=== PATIENT | male | born 1950 | race Caucasian/White ===

== ENCOUNTER → 2016-07-18 | Day surgery (SDC) | payer BC, OTHER ==
[2016-07-17 08:34] VITALS: Ht 172.7 cm; Wt 112.3 kg
[~2016-07-18] VITALS: Ht 172.7 cm; Wt 112.3 kg
[~2016-07-18] MED LIST: ASPI325T4 PO; ATOR-24 PO; B-COTAB18 PO; CHOL100010 PO; COEN1CAP46 PO; FINA5TAB PO; FISHOIL PO; FLM4 PO; FURO-85 PO; HYDR-5688 PO; LIDOCAINE HCL 2% 2 ML VIAL (20MG/ML) ONE; LOSA50TA6 PO; LVMIPEN SQ; MAGN400T6 PO; METO1TAB69 PO; NVLGI/PEN SC; PROPOFOL IV EMULSION 10 MG/ML 20 ML VIAL IV ONE; SODIUM CHLORIDE 0.9% 500ML 500 ML IV ONE
--- NOTE | 2016-07-18 13:45 | Endo History and Physical ---
History & Physical Date of Service: Jul 18, 2016. Chief Complaint: anemia Referring Physician: Dr. Edd Alvarez History of Present Illness anemia Past Medical History Diabetes, Anxiety, Heart Disease, Hypertension, Implantable Defibrillator, Kidney Disease, Depression Past Surgical History Hx Cardiac Surgery: Yes (HEART CATH, NO STENTS X2, CABG X3 VESSELS) Hx Internal Defibrillator: Yes (2011) Hx Pacemaker: No Hx Abdominal Surgery: No Hx of Implantable Prosthesis: No Hx Post-Op Nausea and Vomiting: No Hx Cancer Surgery: No Hx Thoracic Surgery: No Hx Orthopedic: Yes (NECK SURGERY (FULL ROM), LUMBAR SPINE SURGERY) Hx Urinary Tract Surgery: Yes (TUNA) Family History None Social History Smoking Status: Former Smoker Hx Substance Use: Yes (SEE MED LIST) Hx Alcohol Use: No Allergies Coded Allergies: No Known Allergies (Verified , 07/17/16) Current Medications Reported Home Medications Medications Dose Route/Sig Max Daily Dose Days Date Category Dose Instructions Novolog Flexpen (Insulin Aspart) 100 Units/Ml Inj 50 Units SC TIDM 03/07/16 Reported PER SLIDING SCALE Toprol-Xl (Metoprolol Succinate) 100 Mg Tabcr 100 Mg PO QAM 03/07/16 Reported Vitamin D (Cholecalciferol) 1,000 Inter.unit Tab 4,000 Inter.unit PO QAM 07/04/15 Reported Aspirin 325 Mg Tab 325 Mg PO QAM 11/12/14 Reported Tamsulosin HCl 0.4 Mg Cap 0.4 Mg PO HS 11/12/14 Reported Lasix (Furosemide) 20 Mg Tab 20 Mg PO QAM 11/12/14 Reported Lipitor (Atorvastatin Calcium) 40 Mg Tab 40 Mg PO HS 11/12/14 Reported Proscar (Finasteride) 5 Mg Tab 5 Mg PO QAM 11/12/14 Reported Coq-10 100 mg (Coenzyme Q10 (Ubidecarenone)) 1 Cap Cap 100 Mg PO QAM 11/12/14 Reported Vitamin B Complex (B-Complex Vitamins) 1 Tab Tab 1 Tab PO QAM 12/17/13 Reported Levemir Flexpen (Insulin Detemir) 100 Unit/Ml Inj 40 Units SQ BID 12/10/13 Reported [place] 5MG/325MG (Acetaminophen/Hydrocodone Bitart) Tab 1-2 Tablet PO Q4-6H PRN 12/10/13 Reported PRN PAIN Cozaar (Losartan Potassium) 50 Mg Tab 50 Mg PO QAM 12/17/12 Reported [place]-3 (Fish Oil) Oil 1 Cap PO QAM 05/26/12 Reported Mag-Ox (Magnesium Oxide) 400 Mg Tab 400 Mg PO QAM 11/27/11 Reported Vital Signs Weight (Kilograms): 112.27 Height (Feet): 5 Height (Inches): 8 Date Time Temp Pulse Resp B/P Pulse Ox O2 Delivery O2 Flow Rate FiO2 07/18/16 13:42 36.8 69 20 135/64 96 Room Air Physical Exam General Appearance: no apparent distress Respiratory/Chest: Auscultation: breath sounds normal Cardiovascular: Heart Auscultation: RRR Abdomen: Inspection & Palpation: soft Assessment and Plan Anemia - EGD
--- NOTE | 2016-07-18 14:05 | GI REPORT ---
Procedure Date: 07/18/2016 1:33 PM Procedure: Upper GI endoscopy Indications: Anemia Medicines: See the Anesthesia note for documentation of the administered medications Complications: No immediate complications. Estimated Blood Loss: Estimated blood loss: none. Procedure: Pre-Anesthesia Assessment: - ASA Grade Assessment: IV - A patient with severe systemic disease that is a constant threat to life. After obtaining informed consent, the endoscope was passed under direct vision. Throughout the procedure, the patient's blood pressure, pulse, and oxygen saturations were monitored continuously. The scope was introduced through the mouth, and advanced to the second part of duodenum. The upper GI endoscopy was accomplished without difficulty. The patient tolerated the procedure well. Findings: LA Grade A (one or more mucosal breaks less than 5 mm, not extending between tops of 2 mucosal folds) esophagitis with no bleeding was found. Otherwise normal esophagus. The stomach was normal. Biopsies were taken with a cold forceps for histology. There was a large diverticulum in the second portion of the duodenum. Otherwise, the examined duodenum was normal. Biopsies were taken with a cold forceps for histology. Impression: - LA Grade A reflux esophagitis. - Normal stomach. Biopsied. - Normal examined duodenum. Biopsied. Recommendation: - Discharge patient to home. Harmeet Friedman M.D. Harmeet Friedman MD 07/18/2016 2:05:09 PM This report has been signed electronically. Note Initiated On: 07/18/2016 1:33 PM I attest to the content of the Intraoperative Record and orders documented therein, exceptions below
--- NOTE | 2016-07-18 14:10 | Discharge Instructions ---
Endoscopy Patient Instructions Date / Procedure(s) Performed Jul 18, 2016. EGD Allergy Information Coded Allergies: No Known Allergies (Verified , 07/17/16) Discharge Date / Findings Jul 18, 2016. Mild esophagitis. Medication Instructions Stopped Medication(s): took ASA yesterday Provider Instructions Activity Restrictions - No exercising or heavy lifting for 24 hours. - Do not drink alcohol the day of the procedure. - Do not drive a car or operate machinery until the day after the procedure. - Do not make any important decisions or sign important papers in 24 hours after the procedure. Following Day: - Return to full activity which may include returning to work/school. Diet Start your diet with liquids and light foods (jello, soup, juice, toast). Then eat your usual diet if not nauseated. Treatment For Common After Affects For mild abdominal pain, bloating, or excessive gas: - Rest - Eat lightly - Lie on right side Follow-Up Information Follow-up with Dr. Edd Alvarez as scheduled Anesthesia Information What You Should Know You have had a procedure that required some medicine to reduce anxiety and discomfort. This treatment is called moderate sedation. After receiving the treatment, you may be sleepy, but you will be able to breathe on your own. The effects of the treatment may last for several hours. Follow these instructions along with Activity/Diet recommendations noted above: * Do NOT do anything where dizziness or clumsiness would be dangerous. * Rest quietly at home today, then you can be up and about tomorrow. * Have a responsible person stay with you the rest of today. * You may have had an I.V. today. If so, you may take the dressing off later today. Recommendations Call your doctor if: * Trouble breathing * Continuous vomiting for more than 24 hours * Temperature above 101 degrees * Severe abdominal pain or bloating * Pain not relieved by pain medicine ordered * There is increased drainage or redness from any incision * A large amount of rectal bleeding greater than 2-3 tablespoons. (If you had a polyp/s removed or have hemorrhoids, a small amount of blood - from the rectum is to be expected.) * You have any unanswered questions or concerns. IN THE EVENT OF A SERIOUS EMERGENCY, GO TO THE NEAREST EMERGENCY ROOM Your discharge instructions were prepared by provider Harmeet Johns. Patient Instructions Signature Page Leandro Cooper Patient (or Guardian) Signature/Date: I have read and understand the instructions given to me by my caregivers. Caregiver/RN/Doctor Signature/Date: The above-named patient and/or guardian has received patient instructions on this date. + Original Patient Signature Page (only) stays with chart. Please make copy for patient.
[2016-07-18 14:56] VITALS: BP 159/67; PULSE 67; O2SAT 98
--- NOTE | 2016-07-18 15:27 | Anesthesiology Progress Note ---
Anesthesia Post Op Note Date & Time Jul 18, 2016 at 15:27 Vital Signs Pain Intensity: 0 Vital Signs Past 12 Hours Date Time Temp Pulse Resp B/P Pulse Ox O2 Delivery O2 Flow Rate FiO2 07/18/16 14:56 67 18 159/67 98 Room Air 07/18/16 14:36 62 18 138/63 96 Room Air 07/18/16 14:21 56 18 100/48 96 Room Air 07/18/16 14:06 58 16 106/50 96 Room Air 07/18/16 13:42 36.8 69 20 135/64 96 Room Air Notes Mental Status: alert / awake / arousable, participated in evaluation Pt Amnestic to Procedure: Yes Nausea / Vomiting: adequately controlled Pain: adequately controlled Airway Patency, RR, SpO2: stable & adequate BP & HR: stable & adequate Hydration State: stable & adequate Anesthetic Complications: no major complications apparent
== END | disposition home or self-care (01) ==
LOC: C.GI 12:54
PROVIDERS: ATTEND Internal Medicine Gastroenterology
DX: D64.9 Anemia, unspecified (principal); K29.70 Gastritis, unspecified, without bleeding; B96.81 Helicobacter pylori [H. pylori] as the cause of diseases classified elsewhere; K21.0 Gastro-esophageal reflux disease with esophagitis; K57.10 Diverticulosis of small intestine without perforation or abscess without bleeding; E11.9 Type 2 diabetes mellitus without complications; F41.9 Anxiety disorder, unspecified; I51.9 Heart disease, unspecified; I10 Essential (primary) hypertension; F32.9 Major depressive disorder, single episode, unspecified; Z95.1 Presence of aortocoronary bypass graft; Z98.890 Other specified postprocedural states; Z87.891 Personal history of nicotine dependence; Z79.4 Long term (current) use of insulin

== ENCOUNTER → 2016-07-20 | Outpatient (CLI) | payer BC ==
[~2016-07-20] MED LIST changes: -LIDOCAINE HCL 2% 2 ML VIAL (20MG/ML) ONE; -PROPOFOL IV EMULSION 10 MG/ML 20 ML VIAL IV ONE; -SODIUM CHLORIDE 0.9% 500ML 500 ML IV ONE
== END | disposition home or self-care (01) ==
LOC: C.LABSPEC 15:05
PROVIDERS: ATTEND Urology
DX: N39.0 Urinary tract infection, site not specified (principal)

== ENCOUNTER → 2016-09-10 | Outpatient (CLI) | payer BC ==
[~2016-09-10] MED LIST changes: +METO100T44 PO; -METO1TAB69 PO
--- NOTE | 2016-09-10 13:15 | DIAGNOSTIC IMAGING REPORT ---
RENAL ULTRASOUND HISTORY: R39.13 Urinary stream [id number] Urinary tract infection l COMPARISON: None. 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 No hydronephrosis. Focal full-thickness scar within the lower pole. 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 Normal corticomedullary differentiation and cortical thickness. Bladder: No bladder wall thickening. The bilateral ureteral jets were identified. IMPRESSION: 1. 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 2. No hydronephrosis. 3. Focal full-thickness scar within the lower pole of the right kidney. Electronically signed by: Frankie Barrow M.D. 09/10/2016 1:14 PM Dictated Date/Time: 09/10/2016 1:10 PM
== END | disposition home or self-care (01) ==
LOC: C.ULTR 10:23
PROVIDERS: ATTEND Urology
DX: N39.0 Urinary tract infection, site not specified (principal); R39.13 Splitting of urinary stream

== ENCOUNTER → 2016-09-19 | Outpatient (CLI) | payer BC | END | disposition home or self-care (01) | LOC: C.LABSPEC 17:13 | PROVIDERS: ATTEND Urology | DX: N39.0 Urinary tract infection, site not specified (principal) ==

== ENCOUNTER → 2016-12-06 | Outpatient (CLI) | payer BC ==
[~2016-12-06] MED LIST changes: -METO100T44 PO; +METO1TAB69 PO
[2016-12-06 12:06] LABS: BASO % 0.6 %; BASO ABS # 0.04 K/uL (0-0.2); COMPLETE YES; EOS % 2.9 %; HEMATOCRIT 38.7 % (42-52); IG% 0.6 %; LYMPH % 20.5 %; LYMPH ABS # 1.28 K/uL (1.2-3.4); MEAN CORPUSCULAR HEMOGLOBIN 30.5 pg (25-34); MEAN CORPUSCULAR HGB CONC 31.8 g/dl (32-36); MEAN PLATELET VOLUME 10.8 fL (7.4-10.4); MONO % 12.7 %; NEUT % 62.7 %; PLATELET COUNT 149 K/uL (130-400); RED BLOOD COUNT 4.03 M/uL (4.7-6.1); WHITE BLOOD COUNT 6.24 K/uL (4.8-10.8)
[2016-12-06 12:19] LABS: ALT/SGPT 33 U/L (12-78); BLOOD UREA NITROGEN 21 mg/dl (7-18); BUN/CREATININE RATIO 18.7 (10-20); CALCIUM 9.3 mg/dl (8.5-10.1); CARBON DIOXIDE 29 mmol/L (21-32); CHLORIDE 108 mmol/L (98-107); CHOLESTEROL 113 mg/dl (0-200); GLUCOSE 142 mg/dl (70-99); POTASSIUM 4.8 mmol/L (3.5-5.1); SODIUM 142 mmol/L (136-145); TRIGLYCERIDES 132 mg/dl (0-150); VERY LOW DENSITY LIPOPROT CALC 26 mg/dl
[2016-12-06 12:23] LABS: ALB/GLOB RATIO 1.1 (0.9-2); ALKALINE PHOSPHATASE 62 U/L (45-117); AST/SGOT 25 U/L (15-37); CHOLESTEROL/HDL RATIO 2.5; HDL CHOLESTEROL 45 mg/dl; LDL CHOLESTEROL CALCULATED 42 mg/dl; PROSTATE SPECIFIC ANTIGEN 0.255 ng/ml (0.000-4.000)
[2016-12-06 13:37] LABS: ESTIMATED AVERAGE GLUCOSE 154 mg/dl; HA1C FLAG Normal (Normal)
== END | disposition home or self-care (01) ==
LOC: C.LABBFT 08:05
PROVIDERS: ATTEND Nurse Practitioner
DX: D64.9 Anemia, unspecified (principal); Z12.5 Encounter for screening for malignant neoplasm of prostate; E11.8 Type 2 diabetes mellitus with unspecified complications

== ENCOUNTER → 2017-08-29 | Outpatient (CLI) | payer BC ==
[~2017-08-29] MED LIST changes: +METO100T44 PO; -METO1TAB69 PO
== END | disposition home or self-care (01) ==
LOC: C.LABBFT 09:15
PROVIDERS: ATTEND Internal Medicine
DX: N39.0 Urinary tract infection, site not specified (principal)

== ENCOUNTER 2018-07-25 09:37 | Inpatient (IN) ==
--- NOTE | 2018-05-28 09:43 | Anesthesiology Consultation ---
Date of Service May 28, 2018 Assessment & Plan (1) Encounter for pre-operative examination: Plan: Cardiology 05/12/2018: His activities are limited by back pain, he has no heart failure symptoms and his ejection fraction when last measured was normal. I would however recommend continuing his current medical regimen. Although he has long-standing coronary artery disease he does not seem to have symptoms of angina and his LV function has normalized with medical therapy. I would not pursue evaluation at this time. Chart Review Chart Review: Acceptable Risk for Surgery and Patient seen in Pre Admission Testing Teaching & Discussion Instructed NPO after midnight before surgery, except medications with 15 cc of water. Medication instructions provided according to the PAT guidelines. History Surgery Operation Date: 06/25/18 12:05 Proposed Procedures p L4-L5, L5-S1 Removal of Instrumentation; L3-L4 Decompression and Fusion, Possible L2-L3 - Bong Morales, Height/Weight Height: 5 ft 8 in Weight: 108.6 kg Allergies Allergy/AdvReac Type Severity Reaction Status Date / Time No Known Allergies Allergy Verified 05/21/18 13:12 Medications Home Medications Medication Instructions Recorded Confirmed Last Taken magnesium oxide 400 mg PO QAM #0 tab 11/27/11 05/21/18 05/16/18 06:40 losartan 50 mg PO QAM #0 tab 05/26/12 05/21/18 05/16/18 06:40 50 mg omega 7-rop-lqp-fish oil [Fish Oil] 1 cap PO QAM #0 cap 05/26/12 05/21/18 06:40 insulin detemir U-100 45 unit SUBCUT BID #0 12/10/13 05/21/18 05/15/18 22:00 45 units B-Complex 1 tab PO QAM #0 12/17/13 05/21/18 05/16/18 06:40 aspirin 325 mg PO QAM #0 tab 11/12/14 05/21/18 05/11/18 09:00 atorvastatin 40 mg PO HS #0 tab 11/12/14 05/28/18 05/16/18 06:40 coenzyme Q10 100 mg PO QAM #0 11/12/14 05/21/18 05/16/18 06:40 finasteride [Proscar] 5 mg PO QAM #0 11/12/14 05/21/18 05/16/18 06:40 furosemide [Lasix] 20 mg PO QAM #0 tab 11/12/14 05/21/18 05/16/18 06:40 cholecalciferol (vitamin D3) 1,000 unit PO QAM #0 07/04/15 05/21/18 05/16/18 06: 40 insulin aspart U-100 50 unit SC TIDM #0 03/07/16 05/21/18 05/15/18 20:00 50 units metoprolol succinate [Toprol XL] 100 mg PO QAM #0 03/07/16 05/21/18 05/16/18 06: 40 metformin 1,000 mg PO BID 05/16/18 05/21/18 05/15/18 19:00 cyanocobalamin (vitamin B-12) 1,000 mcg PO QAM 05/21/18 05/21/18 Unknown [Vitamin B-12] Past Medical History Medical History Full dentures (Acute) Obese (Acute) Heart disease (Acute) HTN (hypertension) (Acute) High cholesterol (Acute) CAD (coronary artery disease) s/p triple CABG 2002 [employer] CAPTAIN 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 Admitted [facility] 10/18/11 for onset of incapacitating cervical myelopathy. Spinal tap showed SCOW CAPTAIN Lyme disease, MRI showed severe spinal cord compression at C3-4 with myelomalacia and intramedullary mass. Pt had c-spine surgery, subsequent prolonged hospital admission, complicated post-op course. Chronic back pain CHRONIC PAIN IN LEFT LEG Degenerative disc disease Diabetes mellitus, type 2 IDDM. Difficult intubation Ischemic cardiomyopathy EF WNL 11/2017 Sleep apnea PT NOT CURRENTLY CPAP 2/2 recurrent sinus infections. WILL SEE SLEEP MEDICINE/ DR. ARCHULETA LATE 2017 Sudden cardiac Post-op 2011 [facility]. Now has ICD. Past Surgical History Surgical History Hx of tonsillectomy (Acute) H/O cervical spine surgery (Acute) ACDI C3-4, C7 corpectomy, removal of C7 intramedullary mass. History of lumbar spinal fusion (Acute) S/P triple vessel bypass (Acute) [facility], 2002 History of cataract extraction with lens replacement History of tracheostomy Hx of transurethral resection of prostate Past Anesthesia History Difficult Airway (h/o Glidescope 2011 and 2015 [facility]) and No Family Hx of Anesthesia Complications With 2012 cervical spine surgery, pt had extremely complicated post-op course. Per anesthesia record "patient unresponsive with facial edema at end discussed with surgeon and elected to maintain the ETT/sedation overnight. Transported to ICU with 100% O2 Ambu bag. EKG, BP, SaO2 monitored and stable through transport and on arrival in ICU. Placed on vent." Per records, patient developed post-op pneumonia, and tracheostomy was performed after multiple failed extubations. Patient also had cardiac arrest and had ICD placed during this admission. Patient discharged to rehab facility with tracheostomy still in place after 1 month admission. Trach subsequently removed. History of PONV No Motion Sickness Screening History of Motion Sickness: No Social History Smoking Status: Never smoker tobacco type: smokeless tobacco Do You Dip or Chew Tobacco: Yes (1 CAN Q2DAYS) Hx Alcohol Use: Yes (rare) alcohol intake frequency: a few times a month Hx Substance Use: No substance use type: does not use Exercise / Class Metabolic Activity II 4-5 Yardwork/Stairs/Walk up hill (has 14 steps at home, does daily without CP or SOB) Review of Systems Pt denies any recent chest pain, shortness of breath, palpitations, fever or URI. +occasional productive cough, sinus congestion. Physical Exam Vital Signs BP: 119/65 P: 65 bpm SPO2: 98% RA T: 98.7 F R: 18 ENMT Mouth: + dentures and + edentulous Thyromental Distance: > or= 3.5 Finger Breadths (3.5) Mallampati Class: I Neck normal visual inspection, + short neck, + thick neck, + limited neck extension ( slightly limited extension) and + facial hair (goatee) Respiratory normal respiratory effort Auscultation: lungs clear to auscultation bilaterally; no crackles, no rhonchi and no wheezes Cardiovascular Rate/Rhythm: regular rate and regular rhythm Heart Sounds: no murmur Vessels: no carotid bruit Extremities: no edema Testing Electrocardiogram Date: 05/28/18 Findings: + NSR @ (63) Left axis deviation. RBBB. Chest X-Ray Date: 05/28/18 Findings: + cardiomegaly (stable mild) Echocardiogram Date: 11/12/17 EF: 50-55% Technically difficult study. Low normal LV systolic function. Mild concentric LVH. Class I left ventricular diastolic dysfunction. Probable normal right ventricular size and systolic function. No significant valvular abnormalities noted. Stress Test Date: 05/19/15 Type: DSE Negative dobutamine stress echo and EKG for myocardial ischemia at 85% maximum predicted heart rate. No EKG changes. No dobutamine induced chest pain. The patient had normal blood pressure response to dobutamine infusion. The baseline echo notes normal LV function. The study was technically difficult. Other Testing Carotid duplex 11/05/2017 <50% stenosis of the ICA B/L. Antegrade flow in B/L vertebral arteries. ICD Interrogation (from pacer clinic note 05/12/18) Patient is not device dependent. Underlying rhythm: NSR. Type: Implantable cardiac cardioverter/defibrillator Implanted 11/13/11 [employer]. Mode: VVI "His ICD is working well, his battery voltage is good although this device does not projected longevity. He has had no detected tachycardias and therefor no therapy." Laboratory Results 05/28/18 10:06 05/28/18 10:06 Blood Type A Positive 05/28/18 10:06 Antibody Screen NEGATIVE 05/28/18 10:06 PT 9.9 Seconds (9.0-12.0) 05/28/18 10:06 INR 1.0 (0.9-1.1) 05/28/18 10:06 APTT 24.7 Seconds (21.0-31.0) 05/28/18 10:06 Urine Color Yellow 05/28/18 10:06 Urine Appearance Clear (Clear) 05/28/18 10:06 Urine pH 5.0 (4.5-7.5) 05/28/18 10:06 Ur Specific [place] 1.007 (1.000-1.030) 05/28/18 10:06 Urine Protein Negative (Negative) 05/28/18 10:06 Urine Glucose (UA) Negative (Negative) 05/28/18 10:06 Urine Ketones Negative (Negative) 05/28/18 10:06 Urine Nitrite Negative (Negative) 05/28/18 10:06 Ur Leukocyte Esterase 2+ (Negative) H 05/28/18 10:06 Urine WBC (Auto) 5-10 /hpf (0-5) H 05/28/18 10:06 Urine RBC (Auto) 0-4 /hpf (0-4) 05/28/18 10:06 U Hyaline Cast (Auto) 0 /lpf (0-5) 05/28/18 10:06 U Epithel Cells (Auto) >30 /lpf (0-5) H 05/28/18 10:06 Urine Bacteria (Auto) 4+ (Negative) H 05/28/18 10:06 05/28/18 10:06 Urine Culture - Preliminary Urine,Clean Catch Gram negative bacilli Gram negative bacilli#2
--- NOTE | 2018-05-28 09:53 | PAT Medication Instructions ---
Medication Instructions Date of Service May 28, 2018 Home Medications magnesium oxide 400 mg PO QAM losartan 50 mg PO QAM omega 7-sij-aij-fish oil [Fish Oil] 1 cap PO QAM insulin detemir U-100 45 unit SUBCUT BID B-Complex 1 tab PO QAM aspirin 325 mg PO QAM atorvastatin 40 mg PO HS coenzyme Q10 100 mg PO QAM finasteride [Proscar] 5 mg PO QAM furosemide [Lasix] 20 mg PO QAM cholecalciferol (vitamin D3) 1,000 unit PO QAM insulin aspart U-100 50 unit SC TIDM metoprolol succinate [Toprol XL] 100 mg PO QAM metformin 1,000 mg PO BID cyanocobalamin (vitamin B-12) 1,000 mcg PO QAM ASK your prescriber and surgeon aspirin 325 mg PO QAM (ASK DR RICKS, AND CHECK LOGAN HANLEY BEFORE STOPPING OR CHANGING) STOP taking 2 weeks before surgery omega 0-egl-kud-fish oil [Fish Oil] 1 cap PO QAM coenzyme Q10 100 mg PO QAM DO NOT take the morning of surgery magnesium oxide 400 mg PO QAM losartan 50 mg PO QAM B-Complex 1 tab PO QAM Finasteride [Proscar] 5 mg PO QAM furosemide [Lasix] 20 mg PO QAM cholecalciferol (vitamin D3) 1,000 unit PO QAM insulin aspart U-100 50 unit SC TIDM metformin 1,000 mg PO BID cyanocobalamin (vitamin B-12) 1,000 mcg PO QAM Take morning of surgery With a small sip of water, OTHERWISE NOTHING TO EAT OR DRINK AFTER MIDNIGHT: metoprolol succinate [Toprol XL] 100 mg PO QAM Take evening before surgery insulin detemir U-100 45 unit SUBCUT BID atorvastatin 40 mg PO HS insulin aspart U-100 50 unit SC TIDM metformin 1,000 mg PO BID Insulin Dependent Diabetic Patients * Test your blood sugar the morning of surgery * If Blood Sugar is GREATER THAN 150, take HALF of your regular dose of: insulin detemir U-100 45 unit SUBCUT BID -- (TAKE 22 UNITS) * If Blood Sugar is LESS THAN 150, DO NOT TAKE ANY: insulin detemir U-100 45 unit SUBCUT BID Other Notes If you have any questions please call us at [phone] or [phone] or [phone] or [phone]
--- NOTE | 2018-05-28 10:33 | XRay Report ---
XR chest Pre-admission PA/Lat HISTORY: Preop. COMPARISON: Chest 12/10/2013. FINDINGS: The heart remains mildly enlarged. Left-sided pacemaker/defibrillator. Spinal fusion hardwa re is noted at the cervicothoracic junction. Poststernotomy changes. No pleural effusions. No pneumot horax. Small nodular density at the left lung base favors a nipple shadow. The lungs are otherwise cl ear. IMPRESSION: Stable mild cardiomegaly. No acute process within the chest. Electronically signed by: Frankie Barrow M.D. 05/28/2018 10:32 AM
[2018-05-28 11:36] LABS: Basophils # (auto) 0.04 K/uL (0-0.2); Basophils % (auto) 0.5 %; Eosinophils # (auto) 0.18 K/uL (0-0.5); Hematocrit (blood only) 40.8 % (42-52); Hemoglobin 13.1 g/dL (14.0-18.0); Immature Granulocytes # (auto) 0.04 K/uL (0.00-0.02); Immature Granulocytes % (auto) 0.5 %; Lymphocytes # (auto) 2.16 K/uL (1.2-3.4); Lymphocytes % (auto) 24.5 %; Mean Corpuscular Hgb Conc 32.1 g/dL (32-36); Mean Corpuscular Volume 95.6 fL (80-100); Mean Platelet Volume 10.5 fL (7.4-10.4); Monocytes # (auto) 0.95 K/uL (0.11-0.59); Monocytes % (auto) 10.8 %; Neutrophils # (auto) 5.44 K/uL (1.4-6.5); Neutrophils % (auto) 61.7 %; Platelet Count 186 K/uL (130-400); RDW Coefficient of Variation 13.9 % (11.5-14.5); Red Blood Count 4.27 M/uL (4.7-6.1); White Blood Count 8.81 K/uL (4.8-10.8)
[2018-05-28 11:42] LABS: Appearance Urine Clear (Clear); BUN Creatinine Ratio 24.6 (10-20); Bacteria Urine Automated 4+ (Negative); Bilirubin Urine Negative (Negative); Blood Urine Negative (Negative); Calcium 9.7 mg/dl (8.5-10.1); Cast Urine Automated 0 /lpf (0-5); Color Urine Yellow; Creatinine Clr Calc Pharmacy 69.3 ml/min; Epithelial Cell Urine Auto >30 /lpf (0-5); Est GFR (African American) 68.3; Est GFR (Non-African American) 58.9; Glucose Urine UA Negative (Negative); Ketones Urine Negative (Negative); Leukocyte Esterase Urine 2+ (Negative); Nitrite Urine Negative (Negative); Potassium 4.7 mmol/L (3.5-5.1); Protein Urine Negative (Negative); RBC Urine Automated 0-4 /hpf (0-4); Specific Gravity Urine 1.007 (1.000-1.030); Urobilinogen Urine Negative (Negative)
[2018-05-28 11:44] LABS: Partial Thromboplastin Time 24.7 Seconds (21.0-31.0); Prothrombin Time 9.9 Seconds (9.0-12.0)
[~2018-07-25 09:37] MED LIST changes: +ACETAMINOPHEN 500 MG TAB PO PRN; +ACETAMINOPHEN 500 MG TAB PO SCH; -ASPI325T4 PO; -ATOR-24 PO; -B-COTAB18 PO; +CEFAZOLIN 3000MG 65 ML IV SCH; -CHOL100010 PO; -COEN1CAP46 PO; +CeleBREX 200 MG CAP PO SCH; -FINA5TAB PO; -FISHOIL PO; -FLM4 PO; -FURO-85 PO; +GABAPENTIN 300 MG PO SCH; -HYDR-5688 PO; +HYDROmorphone INJ 2 MG/ML SYR/VIAL ONE; -LOSA50TA6 PO; +LR 15ML/HR IV SCH; -LVMIPEN SQ; -MAGN400T6 PO; -METO100T44 PO; +MIDAZOLAM HCL 1 MG/ML 2ML VIAL ONE; -NVLGI/PEN SC; +fentaNYL citrate 100 MCG/2 ML VIAL ONE
[2018-07-25] MEDS ORDERED: fentaNYL citrate 100 MCG/2 ML VIAL ONE ×4 (10:40→14:23)
[2018-07-25] MEDS ORDERED: HYDROmorphone INJ 2 MG/ML SYR/VIAL ONE ×2 (10:40→13:42)
[2018-07-25] MEDS ORDERED: DEXAMETHASONE SOD INJ 4 MG/ML VIAL ONE (10:41)
[2018-07-25] MEDS ORDERED: NEOSTIGMINE METHYLSULFATE 1 MG/ML 10ML VIAL ONE (10:41)
[2018-07-25] MEDS ORDERED: GLYCOPYRROLATE 0.2 MG/ML VIAL ONE (10:41)
[2018-07-25] MEDS ORDERED: LIDOCAINE HCL 2% 2 ML VIAL/AMP(20MG/ML) INFIL ONE (10:41)
[2018-07-25] MEDS ORDERED: ONDANSETRON INJ 2 MG/ML 2 ML VIAL ONE ×2 (10:41→14:09)
[2018-07-25] MEDS ORDERED: ePHEDrine sulfate 50 MG/ML SYR ONE (10:41)
[2018-07-25] MEDS ORDERED: PROPOFOL IV EMULSION 10 MG/ML 20 ML VIAL IV ONE ×2 (10:41→13:22)
[2018-07-25] MEDS ORDERED: PHENYLEPHRINE 100MCG/ML 5ML SYR ONE (10:41)
[2018-07-25] MEDS ORDERED: HYDROmorphone INJ 2 MG/ML SYR/VIAL IV PRN (11:35)
[2018-07-25] MEDS ORDERED: ATROPINE SULFATE 0.1 MG/ML 10ML SYR IV PRN (11:35)
[2018-07-25] MEDS ORDERED: ePHEDrine sulfate 50 MG/ML AMP IV PRN (11:35)
[2018-07-25] MEDS ORDERED: BUPIVACAINE/EPINEPHRINE 0.5% MPF 1:200,000 30 ML VIAL ONE (11:35)
[2018-07-25] MEDS ORDERED: PROMETHAZINE HCL 6.25 MG in SODIUM CHLORIDE 0.9% 50 ML IV PRN (11:35)
[2018-07-25] MEDS ORDERED: fentaNYL citrate 100 MCG/2 ML VIAL IV PRN (11:35)
[2018-07-25] MEDS ORDERED: ONDANSETRON INJ 2 MG/ML 2 ML VIAL IV PRN (11:35)
--- NOTE | 2018-07-25 11:36 | History & Physical Bridge Note ---
Date of Service July 25, 2018 History & Physical Bridge Note I have examined the patient, reviewed the History & Physical and in the interval since the performance of the History & Physical I have noted the following changes of clinical significance: no changes noted
[2018-07-25] MEDS ORDERED: BACITRACIN INJ 50,000 UNIT VIAL ONE (11:37)
--- NOTE | 2018-07-25 11:38 | History & Physical Report ---
Date of Service July 25, 2018 Assessment & Plan (1) Neurogenic claudication due to lumbar spinal stenosis: Removal of instrumentation L4-5 L5-S1 decompression and fusion L3-4 possible L2-3 Present on Admission?: Yes History of Present Illness Chief Complaint: Back back and leg pain Primary Care Provider: Edd Alvarez MD This 67-year-old male that presents with worsening back and leg pain. After failing extensive course of nonoperative care is here for surgical intervention. Allergies Allergy/AdvReac Type Severity Reaction Status Date / Time No Known Allergies Allergy Verified 07/25/18 10:54 Home Medications Home Medications Medication Instructions Recorded Confirmed Type magnesium oxide 400 mg PO QAM #0 tab 11/27/11 07/25/18 History losartan 50 mg PO QAM #0 tab 05/26/12 07/25/18 History omega 9-kuh-xyf-fish oil [Fish Oil] 1 cap PO QAM #0 cap 05/26/12 07/25/18 History insulin detemir U-100 45 unit SUBCUT BID #0 12/10/13 07/25/18 History aspirin 325 mg PO QAM #0 tab 11/12/14 07/25/18 History atorvastatin 40 mg PO HS #0 tab 11/12/14 07/25/18 History coenzyme Q10 100 mg PO QAM #0 11/12/14 07/25/18 History finasteride [Proscar] 5 mg PO QAM #0 11/12/14 07/25/18 History furosemide [Lasix] 20 mg PO QAM #0 tab 11/12/14 07/25/18 History cholecalciferol (vitamin D3) 1,000 unit PO QAM #0 07/04/15 07/25/18 History insulin aspart U-100 10 - 50 unit SC TIDM #0 03/07/16 07/25/18 History metoprolol succinate [Toprol XL] 100 mg PO QAM #0 03/07/16 07/25/18 History metformin 1,000 mg PO BID 05/16/18 07/25/18 History cyanocobalamin (vitamin B-12) 1,000 mcg PO QAM 05/21/18 07/25/18 History [Vitamin B-12] vitamin B complex 1 tab PO DAILY 07/22/18 07/25/18 History Past Med/Surg History Medical History Difficult airway for intubation RUG TOUCH UP PAINTER 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 Admitted [facility] 10/18/11 for onset of incapacitating cervical myelopathy. Spinal tap showed RUG TOUCH UP PAINTER Lyme disease, MRI showed severe spinal cord compression at C3-4 with myelomalacia and intramedullary mass. Pt had c-spine surgery, subsequent prolonged hospital admission, complicated post-op course. Difficult intubation Sudden cardiac Post-op 2011 [facility]. Now has ICD. Sleep apnea PT NOT CURRENTLY CPAP 2/2 recurrent sinus infections. WILL SEE SLEEP MEDICINE/ DR. ARCHULETA LATE 2017 Diabetes mellitus, type 2 IDDM. Degenerative disc disease Chronic back pain CHRONIC PAIN IN LEFT LEG Ischemic cardiomyopathy EF WNL 11/2017 CAD (coronary artery disease) s/p triple CABG 2002 Full dentures (Acute) Obese (Acute) Heart disease (Acute) HTN (hypertension) (Acute) High cholesterol (Acute) Surgical History History of esophagogastroduodenoscopy (EGD) History of colonoscopy History of cardiac cath 2011 AT [facility] - UNSURE IF HE HAS STENTS. History of tracheostomy Hx of transurethral resection of prostate History of cataract extraction with lens replacement Hx of tonsillectomy (Acute) H/O cervical spine surgery (Acute) ACDI C3-4, C7 corpectomy, removal of C7 intramedullary mass. History of lumbar spinal fusion (Acute) S/P triple vessel bypass (Acute) [facility] Family History Other No pertinent family history Social History Current Living Situation: Spouse Other Information That Helps Us Care for You: No Feels Safe at Home: Yes Safety Concerns: Feels Safe At This Time Smoking Status: Never smoker Tobacco Type: smokeless tobacco Do You Dip or Chew Tobacco: Yes (1 CAN Q2DAYS (ADVISED)) Second Hand Exposure: No Tobacco Cessation Education Requested by Patient: No Hx Alcohol Use: Yes (rare) Alcohol Intake Frequency: a few times a month Hx Substance Use: No Beliefs That Will Affect Care: None Preferred Language: Kyrgyz Communication Ability: Effective Jet Dyeing Machine Tender Required: No Physical Exam 2 Vital Signs (Past 24 Hours): Last Vital Signs Temp 36.9 C 07/25/18 11:01 Pulse 70 07/25/18 11:01 Resp 18 07/25/18 11:01 BP 141/53 H 07/25/18 11:01 Pulse Ox 96 07/25/18 11:01 Results & Data Medications Administered Acetaminophen (Tylenol) 1,000 mg PO PREOP KAYLYNN Stop: 07/25/18 18:00 Last Admin: 07/25/18 11:29 Dose: 1,000 mg Celecoxib (Celebrex) 200 mg PO PREOP KAYLYNN Stop: 07/25/18 18:00 Last Admin: 07/25/18 11:28 Dose: 200 mg Gabapentin (Neurontin) 300 mg PO PREOP KAYLYNN Stop: 07/25/18 18:00 Last Admin: 07/25/18 11:29 Dose: 300 mg Lactated Ringer's (Lr) 1,000 mls @ 15 mls/hr IV .Q24H KAYLYNN Stop: 07/26/18 05:59 Last Admin: 07/25/18 11:36 Dose: 15 mls/hr
[2018-07-25] MEDS ORDERED: FLOSEAL HEMOSTATIC MATRIX 10ML TOP ONE (12:40)
[2018-07-25] MEDS ORDERED: ROCURONIUM BROMIDE 10 MG/ML 5 ML VIAL ONE (13:22)
[2018-07-25] MEDS ORDERED: KETOROLAC 30 MG/ML VIAL ONE (13:27)
[2018-07-25] MEDS ORDERED: ALBUMIN HUMAN 5% 12.5 GM/250 ML VIAL IV ONE (13:42)
--- NOTE | 2018-07-25 14:36 | Fluoroscopy Report ---
FL lumbar spine 2-3V CLINICAL HISTORY: REMOVAL L4-S1/ L3-L4 DECOMP AND FUSION POSSIBLE L2-L3 COMPARISON STUDY: 05/16/2018 FLUOROSCOPY TIME: 8 seconds NUMBER OF FLUOROSCOPIC IMAGES: 3 FINDINGS: Findings consistent with revision of the lumbar laminectomy and fusion. IMPRESSION: Lumbar laminectomy and fusion combined with hardware revision. Bony alignment is anatomic . The above report was generated using voice recognition software. It may contain grammatical, syntax or spelling errors. Electronically signed by: Samuel Lindo M.D. 07/25/2018 2:35 PM
--- NOTE | 2018-07-25 14:36 | Operative Report ---
Post Operative Report Pre & Post Diagnosis Operation Date: 06/25/18 12:05 <No data on this case meets the specified criteria> Operation Date: 07/25/18 11:35 Pre-Op Diagnosis: Lumbar spinal stenosis with neurogenic claudication Post-Op Diagnosis: Same Procedure Operation Date: 06/25/18 12:05 <No data on this case meets the specified criteria> Operation Date: 07/25/18 11:35 Actual Procedures #1 removal of posterior segmental instrumentation L4-5 L5-S1. #2 exploration of fusion L4-5 L5-S1. #3 lumbar decompression medial vasectomies foraminotomies L2-3 L3-4. #4 posterior spinal fusion L3-4. #5 placement posterior instrumentation L3-4. #6 interbody fusion L3-4. #7 placement of titanium 10 x 26 mm cage L3-4. #8 placement of local autograft in the posterior gutters. #9 placement of infuse collagen sponge and mass graft in the posterior lateral gutters and ostomy of interbody space. Surgeon Bong Morales, Pyrometer Temperature Regulator None Estimated Blood Loss 675 Findings Consistent with Post-Op Diagnosis Specimens None Description of Procedure Patient was met with preoperatively case discussed all questions addressed. After informed consent obtained patient was taken to the operative suite underwent intubation placed in a prone position on the Chuck table on top of the Hunter frame. All bony prominences well-padded eyes inspected to ensure no external pressure placed upon the. This point the lumbar spine was prepped and draped in a normal sterile fashion. Sharp dissection with the assistance of Bovie cautery was performed down to and exposing the lamina and transverse processes of L3 and instrumentation at L4-L5 and sacral ala bilaterally. Then proceeded move the hardware bilaterally at L4 L5-S1 levels explore the fusion mass noting it to be intact. Then performed a complete laminectomy of L3 partial laminectomy of L2 including bilateral medial facetectomies as well as foraminotomies to address severe stenosis. Pedicle screws were then placed in L3 and L4 bilaterally with assistance of fluoroscopy and process nadia placed. Through a transforaminal approach on the left complete discectomy was performed in plate curetted to subcortical bleeding bone and a 10 x 26 mm titanium cage filled with ostium bone graft tapped in position. Rods were then locked into final position bilaterally. The transverse processes of L3 and L4 bur to subcortical bleeding bone. Infuse collagen sponge mass graft and local autograft placed in the posterior gutters. 15 round DOMINGA drain inserted. Incision was then closed with 1 Vicryl in the fascia 2-0 Vicryl subcutaneously and 4-0 Monocryl for final skin closure. Steri-Strip sterile dressings placed. Patient will continue to PACU stable condition. I attest to the content of the Intraoperative Record and any orders documented therein. Any exceptions are noted below.
--- NOTE | 2018-07-25 15:21 | Anesthesiology Progress Note ---
Date of Service July 25, 2018 Anesthesia Post Procedure Vital Signs Vital Signs: Temp Pulse Pulse Resp BP Pulse Ox 07/25/18 15:05 70 16 141/60 H 100 07/25/18 14:55 68 16 122/68 100 07/25/18 14:45 73 14 147/69 H 100 07/25/18 14:39 36.6 C 72 14 144/69 H 100 07/25/18 11:01 36.9 C 70 18 141/53 H 96 Pain Intensity Bilateral Medial Back: Pain Intensity: 4 Lower Back: Pain Intensity: 0
[2018-07-25] MEDS ORDERED: TRAMADOL HCL 50 MG TABLET PO PRN (16:37)
[2018-07-25] MEDS ORDERED: SOD PHOSPHATE/SOD BIPHOSPHATE ENEMA 132 ML BTL PR PRN (16:37)
[2018-07-25] MEDS ORDERED: HYDROmorphone INJ 0.5 MG/0.5 ML SYR IV PRN (16:37)
[2018-07-25] MEDS ORDERED: DO NOT ADMINISTER FLU VACCINE PRN (16:37)
[2018-07-25] MEDS ORDERED: LORazepam 0.5 MG TAB PO PRN (16:37)
[2018-07-25] MEDS ORDERED: LORazepam 0.5 MG/1 ML VIAL IV PRN (16:37)
[2018-07-25] MEDS ORDERED: FAMOTIDINE 20 MG TAB PO PRN (16:37)
[2018-07-25] MEDS ORDERED: ONDANSETRON 4 MG TAB PO PRN (16:37)
[2018-07-25] MEDS ORDERED: DO NOT ADMINISTER PNEUMOCOCCAL VACCINE PRN (16:37)
[2018-07-25] MEDS ORDERED: BISACODYL 10 MG SUPP PR PRN (16:37)
[2018-07-25] MEDS ORDERED: PROMETHAZINE HCL 12.5 MG in SODIUM CHLORIDE 0.9% 50 ML IV PRN (16:37)
[2018-07-25] MEDS: SODIUM CHLORIDE 0.9% 1000ML 1,000 ML IV SCH (19:54)
[2018-07-25] MEDS: CEFAZOLIN 2000MG 2,000 MG/15 ML SYR IV SCH (19:57)
[2018-07-25] MEDS: KETOROLAC TROMETHAMINE 15 MG/ML VIAL IV SCH (19:59)
[2018-07-25] MEDS ORDERED: ACETAMINOPHEN 500 MG TAB PO PRN (20:00)
[2018-07-25] MEDS: ATORVASTATIN 40 MG TAB PO SCH (21:45)
[2018-07-25] MEDS: DOCUSATE SODIUM/SENNA 50/8.6MG TAB PO SCH (21:45)
[2018-07-25] MEDS ORDERED: ACETAMINOPHEN 1,000 MG/100 ML VIAL IV PRN (22:00)
[2018-07-25] MEDS ORDERED: INSULIN DETEMIR FLEXPEN/FLEX TOUCH 100 UNITS/ML 3ML SC ONE (23:15)
[2018-07-26] MEDS: INSULIN ASPART 100 UNITS/ML 3 ML PEN SC SCH ×5 (00:23→21:17)
[2018-07-26] MEDS: KETOROLAC TROMETHAMINE 15 MG/ML VIAL IV SCH ×3 (00:26→12:35)
[2018-07-26] MEDS: SODIUM CHLORIDE 0.9% 1000ML 1,000 ML IV SCH ×2 (02:31→07:46)
[2018-07-26] MEDS: CEFAZOLIN 2000MG 2,000 MG/15 ML SYR IV SCH (04:42)
[2018-07-26] MEDS: ALUMINUM/MAGNESIUM SUSP 30 ML UDC PO PRN ×2 (05:52→20:14)
[2018-07-26] MEDS: POLYETHYLENE (MIRALAX) 17 GM PACK PO SCH ×3 (05:52→16:39)
[2018-07-26 06:18] LABS: Basophils # (auto) 0.01 K/uL (0-0.2); Basophils % (auto) 0.1 %; Eosinophils # (auto) 0.01 K/uL (0-0.5); Eosinophils % (auto) 0.1 %; Hematocrit (blood only) 26.6 % (42-52); Hemoglobin 8.8 g/dL (14.0-18.0); Immature Granulocytes # (auto) 0.05 K/uL (0.00-0.02); Immature Granulocytes % (auto) 0.4 %; Lymphocytes # (auto) 1.21 K/uL (1.2-3.4); Lymphocytes % (auto) 8.9 %; Mean Corpuscular Hgb Conc 33.1 g/dL (32-36); Mean Platelet Volume 10.3 fL (7.4-10.4); Monocytes # (auto) 1.52 K/uL (0.11-0.59); Monocytes % (auto) 11.2 %; Neutrophils # (auto) 10.82 K/uL (1.4-6.5); Neutrophils % (auto) 79.3 %; Platelet Count 171 K/uL (130-400); RDW Coefficient of Variation 13.9 % (11.5-14.5); RDW Standard Deviation 47.9 fL (36.4-46.3); Red Blood Count 2.83 M/uL (4.7-6.1); White Blood Count 13.62 K/uL (4.8-10.8)
[2018-07-26 06:43] LABS: BUN Creatinine Ratio 17.6 (10-20); Calcium 7.8 mg/dl (8.5-10.1); Creatinine Clr Calc Pharmacy 58.3 ml/min; Est GFR (African American) 55.4; Est GFR (Non-African American) 47.8; Potassium 4.7 mmol/L (3.5-5.1)
[2018-07-26 06:46] LABS: RBC Morphology Unremarkable
[2018-07-26] MEDS: OXYCODONE HCL IR 5 MG TAB (IMMEDIATE RELEASE) PO PRN ×2 (07:52→15:51)
--- NOTE | 2018-07-26 08:37 | Anesthesiology Progress Note ---
Date of Service July 26, 2018 Anesthesia Post Procedure Vital Signs Vital Signs: Temp Pulse Pulse Pulse Pulse Resp BP 07/26/18 05:46 83 12 118/72 07/26/18 02:53 36.7 C 79 16 108/67 07/25/18 23:03 36.4 C L 66 16 07/25/18 19:14 37.3 C 72 18 152/82 H 07/25/18 18:23 36.5 C 80 18 111/69 07/25/18 17:07 36.5 C 72 18 135/75 07/25/18 16:40 36.3 C L 77 18 127/75 07/25/18 16:10 36.8 C 73 18 113/71 07/25/18 15:55 74 13 139/61 07/25/18 15:45 70 13 119/66 07/25/18 15:35 71 12 130/63 07/25/18 15:25 71 15 135/65 07/25/18 15:15 36.5 C 72 17 135/65 07/25/18 15:05 70 16 141/60 H 07/25/18 14:55 68 16 122/68 07/25/18 14:45 73 14 147/69 H 07/25/18 14:39 36.6 C 72 14 144/69 H 07/25/18 11:01 36.9 C 70 18 141/53 H BP Pulse Ox 07/26/18 05:46 94 07/26/18 02:53 96 07/25/18 23:03 110/70 95 07/25/18 19:14 97 07/25/18 18:23 97 07/25/18 17:07 99 07/25/18 16:40 96 07/25/18 16:10 98 07/25/18 15:55 98 07/25/18 15:45 99 07/25/18 15:35 99 07/25/18 15:25 99 07/25/18 15:15 99 07/25/18 15:05 98 07/25/18 14:55 100 07/25/18 14:45 100 07/25/18 14:39 100 07/25/18 11:01 96 Pain Intensity Bilateral Medial Back: Pain Intensity: 4 Lower Back: Pain Intensity: 0 Notes Mental Status: alert / awake / arousable Patient Amnestic to Procedure: Yes Nausea / Vomiting: adequately controlled Pain: adequately controlled Airway Patency, RR, SpO2: stable & adequate BP & HR: stable & adequate Hydration State: stable & adequate Anesthetic Complications: no major complications apparent and Pt Satisfied with anesthetic care
[2018-07-26] MEDS ORDERED: LOSARTAN POTASSIUM 50 MG TAB PO SCH (09:00)
[2018-07-26] MEDS: OMEGA-3 (PURIFIED FISH OIL) 1 GM CAP PO SCH (09:01)
[2018-07-26] MEDS: CYANOCOBALAMIN 500 MCG TABLET (VITAMIN B-12) PO SCH (09:01)
[2018-07-26] MEDS: METOPROLOL SUCC 50MG EXT REL TAB PO SCH (09:01)
[2018-07-26] MEDS: MAGNESIUM OXIDE 400 MG TAB PO SCH (09:02)
[2018-07-26] MEDS: ASPIRIN 325 MG ECTAB PO SCH (09:02)
[2018-07-26] MEDS: FUROSEMIDE 20 MG TAB PO SCH (09:02)
[2018-07-26] MEDS: FINASTERIDE 5 MG TAB PO SCH (09:03)
[2018-07-26] MEDS: INSULIN DETEMIR FLEXPEN/FLEX TOUCH 100 UNITS/ML 3ML SC SCH ×2 (09:06→21:15)
--- NOTE | 2018-07-26 09:24 | Orthopedic Progress Note ---
Date of Service July 26, 2018 Assessment & Plan (1) Chronic back pain: Patient is improving postoperative #1. I have encouraged him to continue working with physical therapy. We will continue GI DVT prophylaxis. He has had some issues with GERD we will add Protonix and Tums to his regimen. We will see him tomorrow also has coming along all likelihood to be able to be discharged home on Saturday. Subjective Patient seen postoperative 1 status post removal of hardware L4 S1 lumbar decompression fusion L3-4. He is doing much better at this point. He has some pain in the incisional region but no pain down the legs. He gets occasional tingling in the feet. He is tolerating p.o. well. His pain is well controlled. He denies any other numbness, tingling, paresthesias. Physical Exam 2 Vital Signs (Past 24 Hours): Last Vital Signs Temp 36.7 C 07/26/18 02:53 Pulse 83 07/26/18 05:46 Resp 12 07/26/18 05:46 BP 118/72 07/26/18 05:46 Pulse Ox 94 07/26/18 05:46 Physical Exam: On exam he is alert and oriented. His dressings clean dry intact. His abdomen soft nontender his calves are supple nontender. Strength and sensation are both intact his gait is stable.
[2018-07-26] MEDS: PANTOprazole 40 MG TAB PO SCH (10:39)
[2018-07-26] MEDS: CALCIUM CARBONATE 500 MG CHEWABLE TAB PO PRN ×2 (11:53→23:58)
[2018-07-26] MEDS ORDERED: PHARMACY GLYCEMIC MGMT CONSULT SCH (12:44)
[2018-07-26] MEDS ORDERED: SODIUM CHLORIDE 0.9% 1000ML 1,000 ML IV SCH (12:45)
[2018-07-26] MEDS: NICOTINE 21 MG/24 HR TDSY TD SCH (12:47)
--- NOTE | 2018-07-26 13:12 | Hospitalist Consultation ---
Date of Consultation July 26, 2018 Assessment & Plan (1) Neurogenic claudication due to lumbar spinal stenosis: - S/p lumbar fusion on 07/25, POD#1. - Pain management per primary team. - Aspirin 325 mg daily; no further DVT ppx is ordered. - IS q1hr WA. - PT/OT evaluation. (2) Chest pain: - Developed acute on chronic right sided/sternal chest pain this morning. - Has h/o chest pain likely related to GERD; on PPI daily with Tums and Maalox prn. - EKG with some lateral ST depressions compared to prior study. - Trop elevated at 1.6 -- will trend q6hr over next 24 hours. - TTE pending completion. - Continue statin, BB and aspirin as prescribed. - May be related to type II NSTEMI in setting of anemia vs. other etiology. - Consider CT PE in setting of right sided pain although no hypoxia, no SOB-- cannot complete yet due to PAULA. - Cardiology consulted, appreciate input. (3) Elevated troponin: - Trop elevated at 1.610; will trend q6hr. - Cardiac work up as noted above. (4) Coronary artery disease: - H/o 3 vessel CABG in 2001 at [facility] (DELATORRE to distal LAD, FERNANDO to Acute Marginal of RCA, Radial Artery Graft to LCx branch). - S/p cardiac arrest following cervical spine surgery in October 2011; AICD was placed in November 2011. - Cleared by cardiology pre-operatively. - Dobutamine stress echo negative on 07/02/18. - Carotid duplex October 2017 showed <50% stenosis of ICA bilaterally. - ICD interrogation in May 2018 was normal. - Continue Aspirin 325 mg daily, Lipitor 40 mg qhs and Metoprolol 100 mg qAM. (5) ICD (implantable cardioverter-defibrillator) in place: - Completed in November 2011 following cardiac arrest post operatively following C-spine surgery. - Most recent interrogation was normal. (6) Acute anemia: - Hgb dropped to 8.8 -- may be related to acute blood loss vs. other. - Repeat CBC with Hgb 8.1. - Maintain hgb >8 due to ongoing NSTEMI -follow CBC in AM (7) Acute kidney injury: - Creatinine increased to 1.51, likely prerenal related to dehydration vs. ATN from hypotension intra-operatively. - Baseline Creatinine ~1.1-1.2 - Hold IV fluids in setting of edema. - Repeat BMP at 17:00 to monitor renal function. (8) Stage III chronic kidney disease: - GFR 50-60's. - Renally dose all meds. (9) Ischemic cardiomyopathy: - In setting of CAD, CABG x 3 vessels in 2001. - Most recent echo showed reduced systolic function, akinetic base to mid septum at rest. LVEF 45-50% and with mild RV systolic dysfunction as well - Continue cardiac meds as prescribed. (10) HTN (hypertension): - Continue Metoprolol 100 mg qAM as prescribed. (11) High cholesterol: - Continue statin as prescribed. (12) Chronic systolic heart failure: - Stress echo in Jun 2018 showed EF 45-50%, mild LVH, no significant valvular abnormalities. - Continue Metoprolol 100 mg daily; hold home Lasix 20 mg daily in setting of PAULA. - Monitor I/O and daily weight closely. (13) Diabetes mellitus, type 2: - Consult pharmacy for glycemic management. - Most recent Hgb A1C was 6.8 in Mar 2018. (14) Sleep apnea: - Does not currently use CPAP due to sinus infections. - Will need to follow up with sleep medicine. (15) PHOTOGRAPH ENLARGER Lyme disease: - Occurred in 2011; spinal tap was +Lyme disease. - MRI showed C3-C4 cord compression and intramedullary mass. - S/p C-spine surgery in October 2011 leading to complicated post op course. (16) Tobacco abuse: - Nicotine patch ordered. - Encourage tobacco cessation. (17) Obese: - BMI 36.4. - Encourage weight loss and heart healthy/carb consistent diet. (18) DVT prophylaxis: - Does not currently have ppx ordered following spinal surgery. Dispo: Upgrade to PCU/telemetry for close monitoring. Supervising Physician Co-Signing Physician Notes PA Supervision Note: I personally saw and examined the patient. I verified all husain points and agree with SIMEON Marcus with the following exceptions and/or additions: Pt developed Right sided CP he said around 0600 today, but did not report it until asked by SIMEON Marcus later inthe morning. He states it is the same pain he has been getting about twice weekly for several months. It is nonradiating, was a 6/10 in severity, now down to a 3/10 after receiving TUMS. Not associated with SOB or nausea. It came on with rest while just sitting in bed. He has noticed some arm swelling today. Back pain manageable ECG showed some mild ST depressions in lateral leads changed from previous Troponin elevated at 1.6 and then went up to 5. CXR with mild developing pulm edema and pt was starting to get SOB later as per RN report Vitals reviewed NAD, sitting in chair anicteric sclerae, large neck RRR no mgr CTAB no wcr no chest wall tenderness Abd +BS soft NT ND Ext: 1+ edema left hand and forearm, trace edema right hand and forearm, trace edema in legs bilat to knees Skin no rashes Later in the evening was chest pain free. SIMEON Marcus discussed the case with Cardiology on several occasions--> recommendation was to place nitropaste and follow troponin I spoke to Dr. Morales about possibility of needing cardiac cath and DAPT and heparin. He would like us to hold off if at all possible on anticoagulation with heparin until at least the 48 hr lyndsey post-op from surgery due to risk of bleeding in to spinal column. -give lasix IV if SOB worsens or becomes hypoxic -With atypical chest pain but could be unstable angina -serial troponins, ECGs -continue ASA, statin, metoprolol Appreciate Cardiology management History of Present Illness Reason for Consultation: Medical Management Attending Physician: Bong Morales, DO History of Present Illness Mr. Cooper is a 67 year old male with past medical history of obesity, HTN, CAD , HLD, PHOTOGRAPH ENLARGER Lyme disease, Chronic back pain s/p multiple surgeries, Type II DM, Ischemic cardiomyopathy, ANTONIO and cardiac arrest in 2011 who presented for a planned lumbar spinal procedure. He is currently POD#1, tolerated procedure well. This morning, pt. developed right sided chest pain that was described as constant. He rated pain as a 3-4/10. Denies radiation of pain down arm or to jaw. He has chronic chest pain, was diagnosed as GERD. Chest pain is located in a different area this morning compared to previous GERD symptoms. He received Protonix and Maalox with minimal improvement in symptoms. Denies nausea/vomiting , diaphoresis, SOB at rest or with exertion. EKG showed some ST depressions in the lateral leads. Initial troponin was positive at 1.6 -- will continue to monitor and consult cardiology. Upgrade to PCU telemetry. Allergies Allergy/AdvReac Type Severity Reaction Status Date / Time No Known Allergies Allergy Verified 07/25/18 10:54 Home Medications Home Medications Medication Instructions Recorded Confirmed Type magnesium oxide 400 mg PO QAM #0 tab 11/27/11 07/25/18 History losartan 50 mg PO QAM #0 tab 05/26/12 07/25/18 History omega 5-ehz-cau-fish oil [Fish Oil] 1 cap PO QAM #0 cap 05/26/12 07/25/18 History insulin detemir U-100 45 unit SUBCUT BID #0 12/10/13 07/25/18 History aspirin 325 mg PO QAM #0 tab 11/12/14 07/25/18 History atorvastatin 40 mg PO HS #0 tab 11/12/14 07/25/18 History coenzyme Q10 100 mg PO QAM #0 11/12/14 07/25/18 History finasteride [Proscar] 5 mg PO QAM #0 11/12/14 07/25/18 History furosemide [Lasix] 20 mg PO QAM #0 tab 11/12/14 07/25/18 History cholecalciferol (vitamin D3) 1,000 unit PO QAM #0 07/04/15 07/25/18 History insulin aspart U-100 10 - 50 unit SC TIDM #0 03/07/16 07/25/18 History metoprolol succinate [Toprol XL] 100 mg PO QAM #0 03/07/16 07/25/18 History metformin 1,000 mg PO BID 05/16/18 07/25/18 History cyanocobalamin (vitamin B-12) 1,000 mcg PO QAM 05/21/18 07/25/18 History [Vitamin B-12] vitamin B complex 1 tab PO DAILY 07/22/18 07/25/18 History Patient History Medical History Difficult airway for intubation PHOTOGRAPH ENLARGER 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 Admitted [facility] 10/18/11 for onset of incapacitating cervical myelopathy. Spinal tap showed PHOTOGRAPH ENLARGER Lyme disease, MRI showed severe spinal cord compression at C3-4 with myelomalacia and intramedullary mass. Pt had c-spine surgery, subsequent prolonged hospital admission, complicated post-op course. Difficult intubation Sudden cardiac Post-op 2011 [facility]. Now has ICD. Sleep apnea PT NOT CURRENTLY CPAP 2/2 recurrent sinus infections. WILL SEE SLEEP MEDICINE/ DR. ARCHULETA LATE 2017 Diabetes mellitus, type 2 IDDM. Degenerative disc disease Chronic back pain CHRONIC PAIN IN LEFT LEG Ischemic cardiomyopathy EF WNL 11/2017 CAD (coronary artery disease) s/p triple CABG 2002 Full dentures (Acute) Obese (Acute) Heart disease (Acute) HTN (hypertension) (Acute) High cholesterol (Acute) Surgical History History of esophagogastroduodenoscopy (EGD) History of colonoscopy History of cardiac cath 2011 AT [facility] - UNSURE IF HE HAS STENTS. History of tracheostomy Hx of transurethral resection of prostate History of cataract extraction with lens replacement Hx of tonsillectomy (Acute) H/O cervical spine surgery (Acute) ACDI C3-4, C7 corpectomy, removal of C7 intramedullary mass. History of lumbar spinal fusion (Acute) S/P triple vessel bypass (Acute) [facility] Family History Other No pertinent family history Social History marital status: Current Living Situation: Spouse Other Information That Helps Us Care for You: No Feels Safe at Home: Yes Safety Concerns: Feels Safe At This Time Smoking Status: Never smoker Tobacco Type: smokeless tobacco Do You Dip or Chew Tobacco: Yes (1 CAN Q2DAYS (ADVISED)) Second Hand Exposure: No Tobacco Cessation Education Requested by Patient: No Hx Alcohol Use: Yes (rare) Alcohol Intake Frequency: a few times a month Hx Substance Use: No Beliefs That Will Affect Care: None Communication Ability: Effective Review of Systems 12 point R.O.S. negative unless noted above in HPI. Constitutional: no fever, no chills and no weakness Respiratory: no cough, no dyspnea, no dyspnea on exertion and no wheezing Cardiovascular: + chest pain, + chest pain at rest and + chest pain with activity; no radiating jaw, neck or arm pain, no dyspnea, no dyspnea at rest, no dyspnea on exertion, no palpitations, no lightheadedness, no syncope and no edema Gastrointestinal: + constipation; no abdominal pain, no nausea and no vomiting Genitourinary (Male): no dysuria and no difficulty urinating Integumentary: no rash Allergy / Immunological: no rash Physical Exam 2 Vital Signs (Past 24 Hours): Last Vital Signs Temp 36.4 C L 07/26/18 10:59 Pulse 91 H 07/26/18 10:59 Resp 16 07/26/18 10:59 BP 106/69 07/26/18 10:59 Pulse Ox 97 07/26/18 10:59 Physical Exam: General: Resting comfortably, in no distress. HEENT: NC/AT; PERRLA with EOMI; [place] conjunctiva, MMM. Neck: Supple and nontender Cardiac: RRR, no murmurs noted. No tenderness to palpation located over area of pain (right side chest) Lungs: CTA bilaterally Abdomen: Mildly distended; Bowel normoactive X 4; Nontender to palpation Back: NO spinous tenderness; dressing in place, did not visualize site. Extremities: Warm. Mild upper extremity hand edema. Neuro: No focal weakness Skin: No rash Results & Data Laboratory Results 07/26/18 07/26/18 07/26/18 Range/Units 11:59 11:14 08:22 WBC (4.8-10.8) K/uL RBC (4.7-6.1) M/uL Hgb (14.0-18.0) g/dL Hct (42-52) % MCV (80-100) fL MCH (25-34) pg MCHC (32-36) g/dL RDW Std Deviation (36.4-46.3) fL RDW Coeff of Norbert (11.5-14.5) % Plt Count (130-400) K/uL MPV (7.4-10.4) fL Immature Gran % (Auto) % Neut % (Auto) % Lymph % (Auto) % Harding % (Auto) % Eos % (Auto) % Baso % (Auto) % Immature Gran # (Auto) (0.00-0.02) K/uL Neut # (Auto) (1.4-6.5) K/uL Lymph # (Auto) (1.2-3.4) K/uL Harding # (Auto) (0.11-0.59) K/uL Eos # (Auto) (0-0.5) K/uL Baso # (Auto) (0-0.2) K/uL RBC Morphology Sodium (136-145) mmol/L Potassium (3.5-5.1) mmol/L Chloride (98-107) mmol/L Carbon Dioxide (21-32) mmol/L Anion Gap (3-11) BUN (7-18) mg/dl Creatinine (0.6-1.4) mg/dl Est Cr Clr Drug Dosing ml/min Est GFR ( Amer) Est GFR (Non-Af Amer) BUN/Creatinine Ratio (10-20) Glucose (70-99) mg/dl POC Glucose 253 H 206 H (70-99) Calcium (8.5-10.1) mg/dl Troponin I 1.610 H* (0-0.045) ng/ml Hepatitis C Ab Screen (Neg) 07/26/18 07/26/18 07/26/18 Range/Units 05:21 05:21 05:21 WBC 13.62 H (4.8-10.8) K/uL RBC 2.83 L (4.7-6.1) M/uL Hgb 8.8 L (14.0-18.0) g/dL Hct 26.6 L (42-52) % MCV 94.0 (80-100) fL MCH 31.1 (25-34) pg MCHC 33.1 (32-36) g/dL RDW Std Deviation 47.9 H (36.4-46.3) fL RDW Coeff of Norbert 13.9 (11.5-14.5) % Plt Count 171 (130-400) K/uL MPV 10.3 (7.4-10.4) fL Immature Gran % (Auto) 0.4 % Neut % (Auto) 79.3 % Lymph % (Auto) 8.9 % Harding % (Auto) 11.2 % Eos % (Auto) 0.1 % Baso % (Auto) 0.1 % Immature Gran # (Auto) 0.05 H (0.00-0.02) K/uL Neut # (Auto) 10.82 H (1.4-6.5) K/uL Lymph # (Auto) 1.21 (1.2-3.4) K/uL Harding # (Auto) 1.52 H (0.11-0.59) K/uL Eos # (Auto) 0.01 (0-0.5) K/uL Baso # (Auto) 0.01 (0-0.2) K/uL RBC Morphology Unremarkable Sodium 134 L (136-145) mmol/L Potassium 4.7 (3.5-5.1) mmol/L Chloride 102 (98-107) mmol/L Carbon Dioxide 21 (21-32) mmol/L Anion Gap 11.0 (3-11) BUN 27 H (7-18) mg/dl Creatinine 1.51 H (0.6-1.4) mg/dl Est Cr Clr Drug Dosing 58.3 ml/min Est GFR ( Amer) 55.4 Est GFR (Non-Af Amer) 47.8 BUN/Creatinine Ratio 17.6 (10-20) Glucose 180 H (70-99) mg/dl POC Glucose (70-99) Calcium 7.8 L (8.5-10.1) mg/dl Troponin I (0-0.045) ng/ml Hepatitis C Ab Screen Neg (Neg) 07/26/18 07/25/18 07/25/18 Range/Units 00:16 20:58 17:45 WBC (4.8-10.8) K/uL RBC (4.7-6.1) M/uL Hgb (14.0-18.0) g/dL Hct (42-52) % MCV (80-100) fL MCH (25-34) pg MCHC (32-36) g/dL RDW Std Deviation (36.4-46.3) fL RDW Coeff of Norbert (11.5-14.5) % Plt Count (130-400) K/uL MPV (7.4-10.4) fL Immature Gran % (Auto) % Neut % (Auto) % Lymph % (Auto) % Harding % (Auto) % Eos % (Auto) % Baso % (Auto) % Immature Gran # (Auto) (0.00-0.02) K/uL Neut # (Auto) (1.4-6.5) K/uL Lymph # (Auto) (1.2-3.4) K/uL Harding # (Auto) (0.11-0.59) K/uL Eos # (Auto) (0-0.5) K/uL Baso # (Auto) (0-0.2) K/uL RBC Morphology Sodium (136-145) mmol/L Potassium (3.5-5.1) mmol/L Chloride (98-107) mmol/L Carbon Dioxide (21-32) mmol/L Anion Gap (3-11) BUN (7-18) mg/dl Creatinine (0.6-1.4) mg/dl Est Cr Clr Drug Dosing ml/min Est GFR ( Amer) Est GFR (Non-Af Amer) BUN/Creatinine Ratio (10-20) Glucose (70-99) mg/dl POC Glucose 239 H 275 H 231 H (70-99) Calcium (8.5-10.1) mg/dl Troponin I (0-0.045) ng/ml Hepatitis C Ab Screen (Neg) 07/25/18 Range/Units 14:48 WBC (4.8-10.8) K/uL RBC (4.7-6.1) M/uL Hgb (14.0-18.0) g/dL Hct (42-52) % MCV (80-100) fL MCH (25-34) pg MCHC (32-36) g/dL RDW Std Deviation (36.4-46.3) fL RDW Coeff of Norbert (11.5-14.5) % Plt Count (130-400) K/uL MPV (7.4-10.4) fL Immature Gran % (Auto) % Neut % (Auto) % Lymph % (Auto) % Harding % (Auto) % Eos % (Auto) % Baso % (Auto) % Immature Gran # (Auto) (0.00-0.02) K/uL Neut # (Auto) (1.4-6.5) K/uL Lymph # (Auto) (1.2-3.4) K/uL Harding # (Auto) (0.11-0.59) K/uL Eos # (Auto) (0-0.5) K/uL Baso # (Auto) (0-0.2) K/uL RBC Morphology Sodium (136-145) mmol/L Potassium (3.5-5.1) mmol/L Chloride (98-107) mmol/L Carbon Dioxide (21-32) mmol/L Anion Gap (3-11) BUN (7-18) mg/dl Creatinine (0.6-1.4) mg/dl Est Cr Clr Drug Dosing ml/min Est GFR ( Amer) Est GFR (Non-Af Amer) BUN/Creatinine Ratio (10-20) Glucose (70-99) mg/dl POC Glucose 197 H (70-99) Calcium (8.5-10.1) mg/dl Troponin I (0-0.045) ng/ml Hepatitis C Ab Screen (Neg)
[2018-07-26] MEDS ORDERED: NITROGLYCERIN SL 0.4 MG/TAB TAB SL PRN (13:21)
[2018-07-26] MEDS ORDERED: INSULIN DETEMIR FLEXPEN/FLEX TOUCH 100 UNITS/ML 3ML SC ONE (13:30)
--- NOTE | 2018-07-26 13:37 | Pharmacy Report ---
Glycemic Control Consultation - Date of Service July 26, 2018 - Scope Scope: Glycemic Pharmacist consulted by Daisha Marcus PA-C on 07/26/18 for glycemic control and to write orders per [facility] inpatient glycemic control protocol - Objective Weight: 108.607 kg Accuchecks BSG (last 24hrs): 07/25/18 07/25/18 07/25/18 14:48 17:45 20:58 Glucose POC Glucose 197 H 231 H 275 H 07/26/18 07/26/18 07/26/18 00:16 05:21 08:22 Glucose 180 H POC Glucose 239 H 206 H 07/26/18 11:59 Glucose POC Glucose 253 H Laboratory Data (last 24hrs): 07/26/18 05:21 Potassium 4.7 Carbon Dioxide 21 Anion Gap 11.0 Creatinine 1.51 H Est Cr Clr Drug Dosing 58.3 - Recent Pertinent Medications Outpatient Anti-diabetic Regimen: * Levemir 45 units BID * Novolog 10-50 units TID with meals * A1c = 6.8 % 03/28/18; updated A1c pending The patient is currently receiving: * Basal insulin: Levemir 45 units every 12 hours * Correctional Insulin: Novolog Correction per scale ACHS Goal Range: Low 110 mg/dL - High 140 mg/dL Correction Factor: 20 mg/dL/unit * Prandial insulin: Per carb ratio of 1 unit per 7 grams CHO consumed * Oral Agents: on hold Risk Factors for Insulin Resistance: * Steroids: Dexamethasone 12mg IV x1 in OR yesterday * Recent Surgery: POD1 lumbar fusion * Diet: Type 2 DM - Assessment & Plan Assessment & Plan: ASSESSMENT: * 67 year old male, POD 1 lumbar fusion with steroid induced hypoglycemia secondary to Type 2 diabetic, good control per A1c in March, new A1c ordered. * Patient received 12mg IV dexamethasone in OR yesterday, resulting in sustained hyperglycemia, will give supplemental dose of Levemir NOW and tighten CF and CR. Effects should wear off over next 24 hours. * Accuchecks overnight d/t steroids * ADA & AACE recommend a goal blood sugar range 140-180 mg/dl for the majority of critically ill & non-critically ill patients. However, more stringent targets may be selected in individual cases. Will utilize more stringent goal of 110-140mg/dl based on patient age & comorbidities. Additionally, tighter glycemic control is warranted to facilitate wound/infection healing. PLAN FOR INPATIENT GLYCEMIC CONTROL: * Holding outpatient oral diabetes medications * Basal insulin * Levemir 30 units x 1 dose now at 1330 then continue, * Levemir 45 units SQ BID * Bolus insulin * NovoLog per scale ACHS or Q6hrs while NPO and at 0000 and 0400 * Goal Range: Low 110 mg/dL - High 140 mg/dL * TIGHTEN: Correction Factor: 15 mg/dL/unit * TIGHTEN: Nutritional / Prandial insulin per carb ratio of 1 unit per 5 grams CHO consumed * Please note that the plan above was derived based on current level of insulin resistance and hospital stress. These recommendations are appropriate for inpatient admission only. Plan of care upon discharge will need to be reassessed to avoid potential outpatient hypo/hyperglycemia. Thank you.
[2018-07-26] MEDS ORDERED: DEXTROSE 50% 50 ML SYRINGE IV PRN (15:08)
[2018-07-26] MEDS ORDERED: GLUCOSE 10 TABS/TUBE PO PRN (15:08)
[2018-07-26] MEDS ORDERED: GLUCOSE 40% GEL 15 GM TUBE PO PRN (15:08)
[2018-07-26] MEDS ORDERED: GLUCAGON FOR INJ 1 MG VIAL IM PRN (15:08)
[2018-07-26] MEDS ORDERED: CARBOHYDRATES FOR HYPOGLYCEMIA PO PRN (15:08)
[2018-07-26] MEDS: METOPROLOL SUCC 25MG EXT REL TAB PO SCH (15:55)
[2018-07-26 17:33] LABS: Hematocrit (blood only) 24.7 % (42-52); Hemoglobin 8.1 g/dL (14.0-18.0); Mean Corpuscular Hgb Conc 32.8 g/dL (32-36); Mean Corpuscular Volume 94.6 fL (80-100); Platelet Count 158 K/uL (130-400); Red Blood Count 2.61 M/uL (4.7-6.1); White Blood Count 11.87 K/uL (4.8-10.8)
[2018-07-26] MEDS: ONDANSETRON INJ 2 MG/ML 2 ML VIAL IV PRN (17:34)
[2018-07-26 17:54] LABS: BUN Creatinine Ratio 21.1 (10-20); Calcium 7.8 mg/dl (8.5-10.1); Creatinine Clr Calc Pharmacy 62.9 ml/min; Est GFR (African American) 60.7; Est GFR (Non-African American) 52.4; Magnesium 1.6 mg/dl (1.8-2.4); Potassium 4.8 mmol/L (3.5-5.1)
[2018-07-26] MEDS: NITROGLYCERIN 2% OINTMENT 30GM TUBE EXT SCH (18:33)
--- NOTE | 2018-07-26 19:11 | XRay Report ---
XR chest 1V portable HISTORY: Atypical Chest pain COMPARISON: Chest 05/28/2018. FINDINGS: There are low lung volumes. No effusions. No pneumothorax. The heart remains enlarged. Ther e are poststernotomy changes and left-sided pacemaker/defibrillator. Cervicothoracic spinal fusion barrera rdware is again noted. Mild central pulmonary vascular congestion. This has progressed in the interva l. No focal lung consolidations to suggest pneumonia. IMPRESSION: Cardiomegaly with developing mild pulmonary edema. Electronically signed by: Frankie aBrrow M.D. 07/26/2018 7:10 PM
[2018-07-26] MEDS ORDERED: SODIUM CHLORIDE 0.9% 1000ML 1,000 ML IV PRN (19:58)
[2018-07-26] MEDS: MAGNESIUM SULFATE / D5W 1 GM/100 ML BAG IV SCH ×2 (20:03→21:11)
[2018-07-26] MEDS: ATORVASTATIN 40 MG TAB PO SCH (20:09)
[2018-07-26] MEDS: DOCUSATE SODIUM/SENNA 50/8.6MG TAB PO SCH (20:09)
[2018-07-26] MEDS: MAGNESIUM HYDROXIDE SUSP 30 ML UDC PO PRN (20:14)
[2018-07-26] MEDS ORDERED: FUROSEMIDE 10 MG in SYRINGE 0 ML IV ONE (21:00)
[2018-07-26] MEDS ORDERED: INSULIN GLARGINE SOLOSTAR 100 UNITS/ML 3 ML PEN SC ONE (21:00)
--- NOTE | 2018-07-26 23:23 | Consultation Report ---
DATE OF CONSULTATION: 07/26/2018 REQUESTING: Daisha Marcus PA-C. BRAZING MACHINE TENDER: Reji Norris D.O, [facility] for Dr. Levi Aguilar who is the patient's primary auto club travel counselor. REASON FOR CONSULTATION: Angina, status post surgery for lumbar spinal stenosis. Dear Ms. Marcus: Thank you for requesting cardiology consultation on Leandro. In retrospect, he notes right-sided upper chest discomfort and some nausea throughout the night, although he did not really notify anybody of that. This morning he had 3/10 right upper chest discomfort with some mild nausea. There was no diaphoresis. There is no radiation to his neck, jaw, back or arm. It is now down to 1/10 and he feels much better. He is very vague about his symptoms as well as very vague about recollection of what his symptoms even may be at home. It sounds like he was having anginal symptoms chronically at home before this. He has been very limited due to his back and having difficulty climbing stairs. He can walk 150 feet to the mailbox, although it sounds like he was doing it very slowly. He denies any palpitations, lightheadedness, dizziness, presyncope, syncope. He does have swelling of his hands which is new and in his leg, which is slightly worse than usual with the use of compression stockings. He notes getting up to go the bathroom. He had some dizziness. He does not feel dizzy now. Denies any palpitations or fluttering or feeling his heart racing. He did undergo preoperative dobutamine stress echo which revealed an area of septal scarring but no evidence of ischemia with mild left ventricular dysfunction and an ejection fraction in the range of 45-50% with mild RV dysfunction. He is known to have significant coronary artery disease and is followed very closely by Dr. Aguilar in the office. PAST CARDIAC HISTORY: Includes; 1. Ischemic cardiomyopathy with ejection fraction in the range of 45%. 2. 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 3. Obstructive sleep apnea, not using BiPAP. 4. Chronic nicotine abuse, using chewing tobacco. 5. Coronary artery disease status post coronary bypass grafting x3 in 2001 with a DELATORRE to the distal LAD, FERNANDO to the marginal branch of the RCA and a radial graft to the circumflex, which is known to be occluded. 6. Severe [place] 3-vessel coronary disease, essentially living off a DELATORRE and FERNANDO graft. 7. Previous cervical spinal stenosis with surgery. 8. Lumbar stenosis status post lumbar fusion yesterday. 9. Implantable cardioverter defibrillator. 10. History of cardiac arrest in 2012 after his cervical fusion. 11. Diabetes mellitus type 2. 12. Depression. 13. History of MRSA septicemia and the list goes on and on. FAMILY HISTORY: Noncontributory. SOCIAL HISTORY: Continues to use chewing tobacco 3/4 of a can per day. He is retired. He is . MEDICATIONS: Reviewed in electronic medical record. ALLERGIES: No known drug allergies. PHYSICAL EXAMINATION: GENERAL: He is awake, alert, oriented x3. He is in no acute distress currently. VITAL SIGNS: His heart rate is 94, blood pressure 110/77, respirations 22, his sats 95%. HEENT: Mildly reduced carotid upstrokes. No evidence of carotid bruits. Jugular venous pressure appeared normal. Sclerae are anicteric. His hearing is normal. LUNGS: Very faint crackles in the bases bilaterally. HEART: Regular rate and rhythm. No appreciable murmurs, rubs or gallops. ABDOMEN: Soft, nontender, obese, distended. Positive bowel sounds. EXTREMITIES: Mild bilateral lower extremity edema with the use of compression stockings. He also has swelling of his hands and forearms. DIAGNOSTIC STUDIES: EKG this morning, sinus rhythm, right bundle branch block with ischemic looking ST-T changes in the anterolateral leads. When compared to his outpatient EKG, his heart rate has increased from 63 to 89 beats per minute and the anterolateral ST changes are new. LABORATORY STUDIES: First troponin is 1.61, sodium 134, potassium 4.7, BUN 27, creatinine 1.51, hemoglobin of 8.8. White count of 13.62 and a platelet count of 171. IMPRESSION: 1. Small postoperative non-ST elevation myocardial infarction. 2. Recent lumbar spinal fusion. 3. Extensive coronary artery disease, living off a left internal mammary artery and right internal mammary artery graft as described above with severe [place] coronary disease. 4. Recent dobutamine stress echo with septal scarring and no significant ischemia. 5. Mild ischemic cardiomyopathy. 6. Chronic tobacco use. 7. History of cardiac arrest in 2012, status post ICD. At this point, his pain has minimized. I would try to manage him medically. His troponin should be trended. We are unable to give him heparin at this point given his recent surgery. He is on aspirin therapy. I did contact the pharmacy, a can of chewing tobacco has approximately 88 mg of nicotine. He is on a 21 mg patch. I would not increase it. His heart rate is up. I would try to increase his beta blockers. He currently takes 100 mg in the morning and received it this morning. I would add a 25 mg dose in the evening and try to up titrate this as a blood pressure and heart rate allow. His preop heart rate was in the low 60s. I stopped his losartan at this point to allow for additional BP room, His hemoglobin is low. I would check his hemoglobin later this afternoon. If he continues to have a hemoglobin <9.0 we should consider transfusion if he continues to have active ischemia. I did write for sublingual nitroglycerin and if necessary, I would consider adding 0.5 mg of nitro paste to his chest wall q. 6 hours if he has worsening angina. He has already been transferred to the second floor. We will continue to monitor him with you. If he were to become unstable or have worsening refractory symptoms, we would need to discuss with Neurosurgery with regards to proceeding with cardiac catheterization emergently. Thank you for allowing me to participate in his care. FRED
[2018-07-27] MEDS: POLYETHYLENE (MIRALAX) 17 GM PACK PO SCH ×5 (00:01→23:19)
[2018-07-27] MEDS: NITROGLYCERIN 2% OINTMENT 30GM TUBE EXT SCH ×3 (00:44→12:01)
[2018-07-27] MEDS: INSULIN ASPART 100 UNITS/ML 3 ML PEN SC SCH ×6 (01:26→20:24)
[2018-07-27] MEDS ORDERED: SODIUM CHLORIDE 0.9% 250 ML IV ONE (02:16)
[2018-07-27 06:09] LABS: Hematocrit (blood only) 25.7 % (42-52); Hemoglobin 8.5 g/dL (14.0-18.0); Mean Corpuscular Hgb Conc 33.1 g/dL (32-36); Mean Corpuscular Volume 93.5 fL (80-100); Mean Platelet Volume 9.7 fL (7.4-10.4); Platelet Count 138 K/uL (130-400); RDW Coefficient of Variation 14.5 % (11.5-14.5); RDW Standard Deviation 49.2 fL (36.4-46.3); Red Blood Count 2.75 M/uL (4.7-6.1); White Blood Count 10.67 K/uL (4.8-10.8)
[2018-07-27 06:35] LABS: Albumin Level 3.1 gm/dl (3.4-5.0); BUN Creatinine Ratio 19.1 (10-20); Calcium 7.8 mg/dl (8.5-10.1); Est GFR (African American) 50.5; Est GFR (Non-African American) 43.6; Magnesium 2.5 mg/dl (1.8-2.4); Potassium 4.8 mmol/L (3.5-5.1)
[2018-07-27 06:43] LABS: Albumin Globulin Ratio 1.1 (0.9-2); Bilirubin,Total 0.8 mg/dl (0.2-1); Globulin 2.9 gm/dl (2.5-4.0); Troponin I 24.8 ng/ml (0-0.045)
[2018-07-27] MEDS: NICOTINE 21 MG/24 HR TDSY TD SCH (07:40)
[2018-07-27] MEDS: METOPROLOL SUCC 50MG EXT REL TAB PO SCH (07:40)
[2018-07-27] MEDS: CYANOCOBALAMIN 500 MCG TABLET (VITAMIN B-12) PO SCH (07:41)
[2018-07-27] MEDS: MAGNESIUM OXIDE 400 MG TAB PO SCH (07:42)
[2018-07-27] MEDS: OMEGA-3 (PURIFIED FISH OIL) 1 GM CAP PO SCH (07:42)
[2018-07-27] MEDS: PANTOprazole 40 MG TAB PO SCH (07:42)
[2018-07-27] MEDS: FINASTERIDE 5 MG TAB PO SCH (07:43)
[2018-07-27] MEDS: ASPIRIN 325 MG ECTAB PO SCH (07:43)
[2018-07-27] MEDS: INSULIN DETEMIR FLEXPEN/FLEX TOUCH 100 UNITS/ML 3ML SC SCH ×2 (07:58→20:22)
[2018-07-27] MEDS ORDERED: SODIUM CHLORIDE 0.9% 250 ML IV PRN (08:07)
[2018-07-27] MEDS ORDERED: PERFLUTREN LIPID MICROSPHERE (DEFINITY) IV ONE (08:35)
[2018-07-27] MEDS ORDERED: MIDAZOLAM HCL 1 MG/ML 2ML VIAL ONE (10:09)
[2018-07-27] MEDS ORDERED: fentaNYL citrate 100 MCG/2 ML VIAL ONE (10:10)
[2018-07-27] MEDS ORDERED: HEPARIN (PORCINE) 1000 UNIT/ML 10 ML (CATH LAB USE ONLY) ONE (10:10)
[2018-07-27] MEDS ORDERED: NiCARDipine HCL INJ 2.5 MG/ML 10 ML AMP ONE (10:10)
[2018-07-27] MEDS ORDERED: NITROGLYCERIN/D5W 100MCG/ML 20ML SYR ONE (10:12)
--- NOTE | 2018-07-27 10:24 | Cardiology Progress Note ---
Date of Service July 27, 2018 Patient was diaphoretic this morning. When I examined him the diaphoresis had resolved he denies any right upper chest discomfort which is been his anginal equivalent. His abdomen is further distended. He also appears to have both lower extremity and upper extremity swelling. He denies any lightheaded or dizziness this morning even with his borderline hypotensive blood pressure. He is unaware of any palpitations fluttering or skips. He has not had a bowel movement since . He was lying flat in bed without significant dyspnea. He denies any dark stools or black stools although as noted he has not had a bowel movement since . Denies any bleeding or hematemesis. He has significant back discomfort since the surgery and had weakness standing today. He was helped to the floor with the nursing staff. The rest of the complete review of systems is negative Physical Exam 2 Vital Signs (Past 24 Hours): Last Vital Signs Temp 36.9 C 07/27/18 09:30 Pulse 73 07/27/18 09:30 Resp 20 07/27/18 09:30 BP 99/55 L 07/27/18 09:30 Pulse Ox 98 07/27/18 09:30 PHYSICAL EXAMINATION: GENERAL: He is awake, alert, oriented x3. He is in no acute distress currently. VITAL SIGNS: His heart rate is 94, blood pressure 110/77, respirations 22, his sats 95%. HEENT: Mildly reduced carotid upstrokes. No evidence of carotid bruits. Jugular venous pressure appeared normal. Sclerae are anicteric. His hearing is normal. LUNGS: Very faint crackles in the bases bilaterally. HEART: Regular rate and rhythm. No appreciable murmurs, rubs or gallops. ABDOMEN: Soft, nontender, obese, more distended. Positive bowel sounds. EXTREMITIES: Mild to moderate bilateral lower extremity edema with the use of compression stockings. He also has swelling of his hands and forearms. Psychiatric: His affect appeared appropriate Neurologic: He is awake alert and oriented x3 and answering questions appropriately IMPRESSION: 1. Postoperative non-ST elevation myocardial infarction. 2. Recent lumbar spinal fusion POD #2 3. Extensive coronary artery disease, living off a left internal mammary artery and right internal mammary artery graft as described above with severe [place] coronary disease. 4. Recent dobutamine stress echo with septal scarring and no significant ischemia. 5. Moderate ischemic cardiomyopathy with inferior and inferolateral akinesis; basal to mid anterior and anterolateral hypokinesis 6. Chronic tobacco use. 7. History of cardiac arrest in 2012, status post ICD. 8. Acute blood loss secondary to surgery 9. Chronic kidney disease with a baseline creatinine of 1.4-1.5 10. Borderline hypotension The case was discussed with Dr. Larose of interventional cardiology this morning. Given his extensive coronary disease and rising troponin to 24 with EKG changes and hypotension it was recommended that he go to the cardiac catheterization laboratory to define his coronary anatomy. The difficulty will be he is living off a DELATORRE and FERNANDO graft and he is 17 years out from bypass surgery. He may just have extensive distal coronary disease for which medicine is his only option. I would continue to transfuse him to keep his hemoglobin greater than 9. At this point were holding his beta-blockers due to his blood pressure. I did recommend a stat CT of his abdomen and pelvis without contrast as his abdomen is more more distended. I just want to make sure that this is stool and that he does not have some spontaneous bleeding before need to anticoagulate him further In discussion with the hospitalist service orthopedic surgery is okay with us putting him on hospice aspirin and Plavix but would prefer to avoid anticoagulation if at all possible in the first 48 hours. If he would do poorly in the [employer] and her Impela device was required we would not have a choice. The risks and benefits of cardiac catheterization were discussed with the patient as by myself and Dr. Larose. Further recommendations will be forthcoming all this was discussed with the hospitalist service in detail.
--- NOTE | 2018-07-27 10:33 | CT Scan Report ---
CT SCAN OF THE ABDOMEN AND PELVIS WITHOUT CONTRAST CLINICAL HISTORY: Abdominal pain. Suspected retroperitoneal hemorrhage. COMPARISON STUDY: No previous studies for comparison. TECHNIQUE: CT scan of the abdomen and pelvis was performed from the lung bases to the proximal femurs . Images are reviewed in the axial, sagittal, and coronal planes. IV contrast was not administered fo r this examination. A dose lowering technique was utilized adhering to the principles of ALARA. CT DOSE: 1444.96 mGy.cm FINDINGS: Lower chest: The heart is mildly enlarged. There are small bilateral pleural effusions. There is mild septal edema. Liver: The unenhanced liver is normal in size, contour, and attenuation. There is no intrahepatic gayle iary ductal dilatation. Gallbladder: Unremarkable. Spleen: Normal in size and attenuation. Pancreas: Unremarkable. Adrenal glands: Unremarkable. Kidneys: There is a horseshoe kidney. No calculi are visualized. There is no hydronephrosis. Bowel: There are no transition zones indicate bowel obstruction. There is no evidence for acute diver ticulitis. There are no findings to indicate acute appendicitis. Peritoneum: There is no free intraperitoneal air. There is a small fat-containing umbilical hernia. T here is trace fluid/stranding within the left paracolic gutter. There are no findings to indicate a r etroperitoneal hematoma. Vasculature: The abdominal aorta is normal in course and caliber. Adenopathy: None. Pelvic viscera: The bladder, and pelvic viscera are unremarkable. Skeletal structures: Postsurgical changes are present within the spine. There is a posterior spinal c atheter/drain. This terminates at the level of the left side of the L2 spinous process IMPRESSION: 1. Small bilateral pleural effusions and interstitial pulmonary edema 2. No evidence of bowel obstruction. No evidence of free air 3. Horseshoe kidney 4. No evidence of intraperitoneal or retroperitoneal hemorrhage Electronically signed by: Stevan Betancourt M.D. 07/27/2018 10:32 AM
--- NOTE | 2018-07-27 11:09 | Pre Anesthesia Assessment ---
Date of Service July 27, 2018 Pre Sedation Assessment Vital Signs Temp Pulse Pulse Resp BP BP BP 07/27/18 09:30 36.9 C 73 20 99/55 L 07/27/18 09:09 36.8 C 70 20 96/50 L 07/27/18 08:46 69 20 98/50 L 07/27/18 08:39 36.5 C 70 101/55 L 07/27/18 08:38 36.5 C 71 20 101/55 L 07/27/18 08:05 67 20 83/46 L 07/27/18 07:45 67 20 97/62 L 07/27/18 07:42 37.0 C 69 20 85/51 L 07/27/18 03:51 84/50 L 07/27/18 03:46 36.7 C 71 80/50 L 07/27/18 02:02 18 89/50 L 07/27/18 00:15 36.7 C 81 18 91/55 L 07/26/18 23:54 36.5 C 81 16 101/64 07/26/18 22:54 36.8 C 82 18 114/70 07/26/18 22:24 36.7 C 80 17 94/60 L 07/26/18 22:20 83 07/26/18 22:09 36.9 C 84 18 90/56 L 07/26/18 21:51 36.8 C 85 18 91/58 L 07/26/18 19:19 36.8 C 90 20 96/52 L 07/26/18 18:24 95 H 129/63 07/26/18 15:33 36.7 C 92 H 18 114/64 07/26/18 13:00 36.8 C 94 H 22 110/71 Pulse Ox 07/27/18 09:30 98 07/27/18 09:09 98 07/27/18 08:46 100 07/27/18 08:39 99 07/27/18 08:38 07/27/18 08:05 99 07/27/18 07:45 97 07/27/18 07:42 96 07/27/18 03:51 07/27/18 03:46 100 07/27/18 02:02 100 07/27/18 00:15 91 07/26/18 23:54 96 07/26/18 22:54 100 07/26/18 22:24 98 07/26/18 22:20 07/26/18 22:09 88 L 07/26/18 21:51 07/26/18 19:19 93 07/26/18 18:24 93 07/26/18 15:33 97 07/26/18 13:00 95 Cardiovascular RRR, no murmur, no edema Respiratory normal respiratory effort, lungs clear to auscultation Pre-Sedation Airway Assessment Smoking Status: Never smoker Hx Sleep Apnea: No Hx Difficult Intubation: No Short, Thick Neck: No Thyromental Distance: > or= 3.5 Finger Breadths (3.5) Mallampati Class: III Procedure Planning Contraindications for Sedation: none Current Medications Reviewed: Yes Notes The planned sedation has been discussed with the patient. Informed Consent was obtained. I have identified the patient, determined the appropriateness of sedation and have assessed the patient immediately prior to the procedure. All medicine(s) and interventions are by my order.
--- NOTE | 2018-07-27 11:09 | Post Anesthesia Assessment ---
Date of Service July 27, 2018 Post Sedation Assessment Vital Signs Temp Pulse Pulse Resp BP BP BP 07/27/18 09:30 36.9 C 73 20 99/55 L 07/27/18 09:09 36.8 C 70 20 96/50 L 07/27/18 08:46 69 20 98/50 L 07/27/18 08:39 36.5 C 70 101/55 L 07/27/18 08:38 36.5 C 71 20 101/55 L 07/27/18 08:05 67 20 83/46 L 07/27/18 07:45 67 20 97/62 L 07/27/18 07:42 37.0 C 69 20 85/51 L 07/27/18 03:51 84/50 L 07/27/18 03:46 36.7 C 71 80/50 L 07/27/18 02:02 18 89/50 L 07/27/18 00:15 36.7 C 81 18 91/55 L 07/26/18 23:54 36.5 C 81 16 101/64 07/26/18 22:54 36.8 C 82 18 114/70 07/26/18 22:24 36.7 C 80 17 94/60 L 07/26/18 22:20 83 07/26/18 22:09 36.9 C 84 18 90/56 L 07/26/18 21:51 36.8 C 85 18 91/58 L 07/26/18 19:19 36.8 C 90 20 96/52 L 07/26/18 18:24 95 H 129/63 07/26/18 15:33 36.7 C 92 H 18 114/64 07/26/18 13:00 36.8 C 94 H 22 110/71 Pulse Ox 07/27/18 09:30 98 07/27/18 09:09 98 07/27/18 08:46 100 07/27/18 08:39 99 07/27/18 08:38 07/27/18 08:05 99 07/27/18 07:45 97 07/27/18 07:42 96 07/27/18 03:51 07/27/18 03:46 100 07/27/18 02:02 100 07/27/18 00:15 91 07/26/18 23:54 96 07/26/18 22:54 100 07/26/18 22:24 98 07/26/18 22:20 07/26/18 22:09 88 L 07/26/18 21:51 07/26/18 19:19 93 07/26/18 18:24 93 07/26/18 15:33 97 07/26/18 13:00 95 Recovery Score Activity: Moves 4 extremities Respiration: Deep Breath/Cough Circulation: +/-20% PreAnes Value Consciousness: Fully Awake Oxygen Saturation: O2 needed for >90% Post Anesthesia Score: 8 Discharge Sedation Level of Care: Fast Track Phase II Post Sedation Plan On clinical assessment, the patient appears to have tolerated the sedation without complications. Patient is recovering as anticipated. Patient will continue to be monitored by nursing and may be discharged when sedation discharge criteria are met per below protocol. Upon Completions of procedure and additional 15 minutes continue every 5 minute vital signs and the P.A.R. score; then discharge to a Phase I or Fast Track to Phase II per the following guidelines: * Discharge Patient to appropriate Phase II area if PAR is 8 or greater or return to pre- procedure baseline. The post - procedure orders will be as directed. * If PAR score is less than 8 or not return to pre-procedure baseline then patient will follow Phase I monitoring till PAR is reached for Phase II. The Phase I may be done in procedure room or may call to secure a Phase I area. * If naloxone or flumazenil are used for reversal, hold in Phase I for continued monitoring from when last reversal dose was given for a minimum of 60 minutes or longer pending the nurse and/or physician discretion of patient condition before discharge to Phase II. Please call the Sedation Physician to re-evaluate and complete post-note for discharge to Phase II area. Do NOT discharge from procedure sedation or Phase 1 until post- sedation evaluation note is complete by procedure /sedation MD Sedation Discharge Instructions to be given to the patient at discharge to home.
--- NOTE | 2018-07-27 11:13 | Cardiac Catheterization ---
Cardiac Cath Procedure Full Procedure Date July 27, 2018 Pre-Procedure Diagnosis Pre-Procedure Diagnosis: Non STEMI AUC Score AUC Score: 8 Post-Procedure Diagnosis Post-Procedure Diagnosis: Severe CAD Procedure(s) Performed Procedure(s) Performed: Coronary Angiography Payroll And Benefits Analyst Edd Larose MD Estimated Blood Loss Estimated Blood Loss: 5 Medication(s) Medication(s): Fentanyl, Lidocaine 1% and Versed Summary of Findings Indication: NSTEMI History of severe coronary disease post three-vessel CABG (DELATORRE to LAD, FERNANDO to right acute marginal, radial to OM), ischemic cardiomyopathy who underwent lumbar removal of hardware/decompression/fusion 2 days ago with postoperative course complicated by anemia and intermittent chest pain with elevated troponin to 24.8 and worsened LV function with inferior akinesis, base to mid anterior lateral hypokinesis. Access: 5 Bulgarian right common femoral artery Catheters: JR4, JL4 Findings: LM - mildly calcified, 30% distal disease LAD -moderate caliber vessel, diffuse moderate to severe proximal/mid disease. 100% chronic mid occlusion after takeoff of small first diagonal Circumflex -small caliber vessel, moderate to severe diffuse disease extending into proximal OM 2 with 80% proximal stenosis. Ramussmall to moderate caliber, 30% ostial 99% subtotal mid segment occlusion with NEMESIO I flow in bifurcating distal vessel RCA -moderate caliber, dominant vessel diffuse 30% proximal to mid disease, sequential 95, 90% stenoses in mid segment, diffuse 30% distal disease, luminal irregularities in right PDA/PLB DELATORRE to LADwidely patent, distal LAD after anastomosis with mild diffuse disease. Retro-fills into mid LAD with severe focal stenosis FERNANDO to acute marginalwidely patent, acute marginal is very small vessel with diffuse disease. Does not retrofil into RCA Radial to OMoccluded Arterial Closure: Angio-Seal Summary: 1. Severe multivessel [place] coronary artery disease 99% subtotal occlusion in proximal ramus with distal NEMESIO I flow (thought to be acute culprit vessel) -100% chronic mid LAD occlusion Diffuse mid circumflex, 80% proximal OM 2 Sequential mid RCA 95, 90% stenosis 2. Widely patent DELATORRE to LAD. Patent FERNANDO to very small diffusely diseased acute marginal. Occluded radial graft to OM. Recommendations: Patient presently chest pain-free, hemodynamically and electrically stable with no evidence of heart failure. In the setting of recent spine surgery, acute blood loss anemia, PAULA recommend medical management of culprit ramus small vessel disease. Antiplatelet therapy when safe to do from a surgical standpoint Continued ASCVD risk factor modification If recurrent symptoms in the future could consider PCI to mid RCA disease. Hemodynamics Rest Ao:: Final Ao: LV: -- Recommendations Recommendations: Medical Therapy and/or Counseling Specimens Specimens: None Radiation Exposure (mGy) 2358 Contrast (mls) 115 Fluids (cc crystalloids) Fluids (cc crystalloids): 50 Drains Drains: none Anesthesia moderate Procedural Complication(s) None Disposition PCU ACC Data: [place] Cardiac Status Clinical evaluation leading to the procedure CAD Presenation: Non STEMI Anginal Classification: CCS IV Heart Failure: No Cardiogenic Shock within 24 Hours: No Cardiac Arrest within 24 Hours: No Imaging Studies Past 6 Months: Yes Stress Studies Past 6 Months: No Diagnostic Physicians Name: Edd Larose MD Status: Urgent Closure Device Percutaneous Entry Location: Radial Closure Device: Angio-Seal Recommendations: Medical Therapy and/or Counseling Intraprocedure Events Significant Disection: No Perforation: No
[2018-07-27] MEDS ORDERED: CLOPIDOGREL BISULFATE 300 MG TAB PO STA (12:20)
--- NOTE | 2018-07-27 12:23 | Orthopedic Progress Note ---
Date of Service July 27, 2018 Assessment & Plan (1) Lumbar stenosis with neurogenic claudication: Patient is status post lumbar decompression fusion. Struggling with some elevated cardiac enzymes. Certainly reasonable to begin aspirin and antiplatelet therapy today or tomorrow if necessary. 1 cleared by cardiology and medicine he may initiate physical therapy. We will maintain his DOMINGA drain at this time. Present on Admission?: Yes Subjective Patient complaining mostly of some back pain at this time. He is status post cardiac catheterization. He denies any chest pain at this time. Denies any leg pain. Physical Exam 2 Vital Signs (Past 24 Hours): Last Vital Signs Temp 36.8 C 07/27/18 12:15 Pulse 75 07/27/18 12:15 Resp 20 07/27/18 12:15 BP 115/61 07/27/18 12:15 Pulse Ox 95 07/27/18 12:15 Physical Exam: On exam he is neurologically intact. He does appear relatively comfortable.
[2018-07-27] MEDS: SODIUM CHLORIDE 0.9% 1000ML 1,000 ML IV SCH ×2 (12:39→13:30)
[2018-07-27] MEDS: OXYCODONE HCL IR 5 MG TAB (IMMEDIATE RELEASE) PO PRN (13:16)
--- NOTE | 2018-07-27 14:30 | Hospitalist Progress Note ---
Date of Service July 27, 2018 Assessment & Plan (1) Neurogenic claudication due to lumbar spinal stenosis: - S/p lumbar fusion on 07/25, POD#2. - Pain management per primary team. - Aspirin 81 mg PO daily -- avoid further ppx in setting of recent spinal surgery. - IS q1hr WA. - PT/OT evaluation - cleared by cardiology. (2) NSTEMI (non-ST elevated myocardial infarction): - Developed chest pain on 07/26, Trop increased to 24.8 overnight with h ypotension. - EKG 07/[address] depression in lateral leads. - S/p cardiac cath: severe multivessel disease with 99% subtotal occlusion in proximal ramus with distal TMI (likely causing acute bump in troponin) - Cardiology recommending medical management in setting of recent surgery, anemia and PAULA. - Decrease aspirin to 81 mg daily; start Plavix 75 mg qAM - Transfuse for hgb <9 -- received 2 units pRBCs today. - Held Metoprolol XL this morning due to hypotension; did not tolerate nitropaste overnight. - Continue Atorvastatin as prescribed. (3) Chest pain: - Developed acute on chronic right sided/sternal chest pain on 07/26, see above for cardiac work up. - H/o recent chest pain, diagnosed as GERD -- on PPI daily with tums and maalox prn. (4) Elevated troponin: - Trop increased to 24.8 in setting of NSTEMI; monitor over next 12 hours following cardiac cath. (5) Coronary artery disease: - H/o 3 vessel CABG in 2001 at [facility] (DELATORRE to distal LAD, FERNANDO to Acute Marginal of RCA, Radial Artery Graft to LCx branch). - S/p cardiac arrest following cervical spine surgery in October 2011; AICD was placed in November 2011. - Was cleared by cardiology pre-operatively. - Dobutamine stress echo negative on 07/02/18. - Carotid duplex October 2017 showed <50% stenosis of ICA bilaterally. - ICD interrogation in May 2018 was normal. - On Aspirin, statin, Plavix as noted above; Metoprolol with hold parameters. (6) ICD (implantable cardioverter-defibrillator) in place: - Completed in November 2011 following cardiac arrest post operatively following C-spine surgery. - Most recent interrogation was normal. (7) Acute respiratory failure with hypoxia: - Has been requiring 2L via NC -- may be related to pulm edema. - CT A/P showed bilat pleural effusions, pulm edema. - Holding home Lasix 20 mg due to PAULA, hypotension. - Monitor for improvement -- will likely need to restart diuresis over next 24 hours. (8) Acute anemia: - Hgb dropped to 8.1 -- likely related to acute blood loss during procedure. - Transfuse to maintain hgb >9 -- received 2 units pRBCs. (9) Constipation: - Last BM was on 07/24/18; very distended on exam. - CT A/P negative for obstruction or free air. - Senokot S 2 tabs qhs, Miralax q6hr scheduled with MOM, Dulcolax AR and Fleet enema prn. - Will order more aggressive bowel regimen following resolution of acute issues. (10) Acute kidney injury: - Creatinine increased to 1.63, likely prerenal related to dehydration at admission vs. ATN from hypotension/acute cardiac events. - Baseline Creatinine ~1.1-1.2 - Holding aggressive IV fluids due to pulm edema; receiving fluids at 75 cc/hr post cardiac cath for 4 hours. - Monitor BMP daily. (11) Stage III chronic kidney disease: - GFR 50-60's. - Renally dose all meds. (12) Ischemic cardiomyopathy: - In setting of CAD, CABG x 3 vessels in 2001. - Has moderate cardiomyopathy with inferior and inferolateral akinesis, basal to mid anterior and anterolateral hypokinesis. - Continue cardiac meds as noted above. (13) HTN (hypertension): - Continue Metoprolol with hold parameters -- did not receive this morning due to hypotension. - Holding home Losartan. (14) High cholesterol: - Continue statin as prescribed. (15) Chronic systolic heart failure: - Stress echo in Jun 2018 showed EF 45-50%, mild LVH, no significant valvular abnormalities. - Repeat TTE: EF 40%, akinetic inferior and inferolateral rojas, basal to mid anterolateral and basal to mid anterior rojas hypokinetic. - Continue Metoprolol 100 mg daily with hold parameters. - Holding home Lasix due to hypotension; CT A/P showed small bilat pleural effusions and pulm edema -- will likely need diuresis soon due to blood transfusions, IV fluids over last 24 hours. - Monitor I/O and daily weight closely. (16) Diabetes mellitus, type 2: - Consult pharmacy for glycemic management. - Most recent Hgb A1C was 6.8 in Mar 2018. (17) Sleep apnea: - Does not currently use CPAP due to sinus infections. - Will need to follow up with sleep medicine. 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 - MRI showed C3-C4 cord compression and intramedullary mass. - S/p C-spine surgery in October 2011 leading to complicated post op course. (19) Tobacco abuse: - Nicotine patch ordered. - Encourage tobacco cessation. (20) Obese: - BMI 36.4. - Encourage weight loss and heart healthy/carb consistent diet. (21) DVT prophylaxis: - Aspirin/Plavix. Dispo: PCU/tele for close monitoring s/p cardiac cath. Supervising Physician Co-Signing Physician Notes PA Supervision Note: I personally saw and examined the patient. I verified all husain points and agree with SIMEON Marcus with the following exceptions and/or additions: Pt had troponin trend upwards overnight and was hypotensive. No further chest pain but decision made to take him to the cardiac floating labor gang supervisor. I discussed the plan with Cardiology and Ortho SPine Surgery. I saw pt prior to cardiac cath and he had no complaints. Vitals reviewed AAOx3, NAD RRR no mgr CTAB no wcr Ext 1+ pitting edema bilat 67 yo male here with lumbar spine fusion surgery now with post-op NSTEMI. -await cardiac cath results -continue other plan as above Subjective Trop increased to 24.8 overnight, was hypotensive with SBP 80's. He received 250 cc bolus with improvement in BP. Also received 2 units of PRBCs for hgb <9. Cardiology following, went to floating labor gang supervisor this morning -- recommending medical management and initiation of plavix/continue aspirin. BP now improved, will hold IV fluids due to fluid overload. Pt. denied chest pain, N/V, SOB, diaphoresis today prior to cath procedure. Has not had a BM since morning -- will give laxatives/softeners as tolerated. Review of Systems All systems reviewed & are unremarkable except as noted in HPI & below Constitutional: no fever, no chills, no fatigue and no weakness Respiratory: no cough, no dyspnea and no dyspnea on exertion Cardiovascular: no chest pain, no palpitations and no edema Gastrointestinal: + constipation; no abdominal pain, no nausea and no vomiting Genitourinary (Male): no difficulty urinating Musculoskeletal: + back pain Integumentary: no rash Physical Exam Vital Signs (Past 24 Hours): Last Vital Signs Temp 36.8 C 07/27/18 13:00 Pulse 73 07/27/18 13:00 Resp 21 07/27/18 13:00 BP 108/62 07/27/18 13:00 Pulse Ox 96 07/27/18 13:00 Physical Exam: General: Resting comfortably, in no distress. HEENT: NC/AT; PERRLA with EOMI; [place] conjunctiva, MMM. Neck: Supple and nontender Cardiac: RRR Lungs: CTA bilaterally Abdomen: Very distended; Bowel normoactive X 4; Nontender to palpation Back: NO spinous tenderness; dressing in place. Extremities: Warm. Bilat upper extremity edema noted. Neuro: No focal weakness Skin: No rash Results & Data Laboratory Results 07/27/18 07/27/18 07/27/18 Range/Units 11:43 07:20 05:47 WBC (4.8-10.8) K/uL RBC (4.7-6.1) M/uL Hgb (14.0-18.0) g/dL Hct (42-52) % MCV (80-100) fL MCH (25-34) pg MCHC (32-36) g/dL RDW Std Deviation (36.4-46.3) fL RDW Coeff of Norbert (11.5-14.5) % Plt Count (130-400) K/uL MPV (7.4-10.4) fL Sodium (136-145) mmol/L Potassium (3.5-5.1) mmol/L Chloride (98-107) mmol/L Carbon Dioxide (21-32) mmol/L Anion Gap (3-11) BUN (7-18) mg/dl Creatinine (0.6-1.4) mg/dl Est Cr Clr Drug Dosing ml/min Est GFR ( Amer) Est GFR (Non-Af Amer) BUN/Creatinine Ratio (10-20) Glucose (70-99) mg/dl POC Glucose 158 H 188 H (70-99) Estimat Average Glucose Hemoglobin A1c Osmolality (280-300) mOsm/kg Calcium (8.5-10.1) mg/dl Magnesium (1.8-2.4) mg/dl Total Bilirubin (0.2-1) mg/dl AST (15-37) U/L ALT (12-78) U/L Alkaline Phosphatase (45-117) U/L Troponin I (0-0.045) ng/ml Total Protein (6.4-8.2) gm/dl Albumin (3.4-5.0) gm/dl Globulin (2.5-4.0) gm/dl Albumin/Globulin Ratio (0.9-2) Random Cortisol 23.27 mcg/dl Specimen Hemolysis Urine Osmolality (500-800) mOsm/kg Ur Random Sodium mmol/L Blood Type Antibody Screen Crossmatch 07/27/18 07/27/18 07/27/18 Range/Units 05:47 05:47 05:47 WBC 10.67 (4.8-10.8) K/uL RBC 2.75 L (4.7-6.1) M/uL Hgb 8.5 L (14.0-18.0) g/dL Hct 25.7 L (42-52) % MCV 93.5 (80-100) fL MCH 30.9 (25-34) pg MCHC 33.1 (32-36) g/dL RDW Std Deviation 49.2 H (36.4-46.3) fL RDW Coeff of Norbert 14.5 (11.5-14.5) % Plt Count 138 (130-400) K/uL MPV 9.7 (7.4-10.4) fL Sodium 132 L (136-145) mmol/L Potassium 4.8 (3.5-5.1) mmol/L Chloride 97 L (98-107) mmol/L Carbon Dioxide 26 (21-32) mmol/L Anion Gap 9.0 (3-11) BUN 31 H (7-18) mg/dl Creatinine 1.63 H (0.6-1.4) mg/dl Est Cr Clr Drug Dosing 54.0 ml/min Est GFR ( Amer) 50.5 Est GFR (Non-Af Amer) 43.6 BUN/Creatinine Ratio 19.1 (10-20) Glucose 185 H (70-99) mg/dl POC Glucose (70-99) Estimat Average Glucose Pending Hemoglobin A1c Pending Osmolality (280-300) mOsm/kg Calcium 7.8 L (8.5-10.1) mg/dl Magnesium 2.5 H (1.8-2.4) mg/dl Total Bilirubin 0.8 (0.2-1) mg/dl AST 103 H (15-37) U/L ALT 23 (12-78) U/L Alkaline Phosphatase 51 (45-117) U/L Troponin I 24.800 H* (0-0.045) ng/ml Total Protein 6.0 L (6.4-8.2) gm/dl Albumin 3.1 L (3.4-5.0) gm/dl Globulin 2.9 (2.5-4.0) gm/dl Albumin/Globulin Ratio 1.1 (0.9-2) Random Cortisol mcg/dl Specimen Hemolysis Urine Osmolality (500-800) mOsm/kg Ur Random Sodium mmol/L Blood Type Antibody Screen Crossmatch 07/27/18 07/27/18 07/26/18 Range/Units 04:57 00:06 23:02 WBC (4.8-10.8) K/uL RBC (4.7-6.1) M/uL Hgb (14.0-18.0) g/dL Hct (42-52) % MCV (80-100) fL MCH (25-34) pg MCHC (32-36) g/dL RDW Std Deviation (36.4-46.3) fL RDW Coeff of Norbert (11.5-14.5) % Plt Count (130-400) K/uL MPV (7.4-10.4) fL Sodium (136-145) mmol/L Potassium (3.5-5.1) mmol/L Chloride (98-107) mmol/L Carbon Dioxide (21-32) mmol/L Anion Gap (3-11) BUN (7-18) mg/dl Creatinine (0.6-1.4) mg/dl Est Cr Clr Drug Dosing ml/min Est GFR ( Amer) Est GFR (Non-Af Amer) BUN/Creatinine Ratio (10-20) Glucose (70-99) mg/dl POC Glucose 197 H 210 H (70-99) Estimat Average Glucose Hemoglobin A1c Osmolality (280-300) mOsm/kg Calcium (8.5-10.1) mg/dl Magnesium (1.8-2.4) mg/dl Total Bilirubin (0.2-1) mg/dl AST (15-37) U/L ALT (12-78) U/L Alkaline Phosphatase (45-117) U/L Troponin I 11.800 H* (0-0.045) ng/ml Total Protein (6.4-8.2) gm/dl Albumin (3.4-5.0) gm/dl Globulin (2.5-4.0) gm/dl Albumin/Globulin Ratio (0.9-2) Random Cortisol mcg/dl Specimen Hemolysis Urine Osmolality (500-800) mOsm/kg Ur Random Sodium mmol/L Blood Type Antibody Screen Crossmatch 07/26/18 07/26/18 07/26/18 Range/Units 21:05 21:05 20:39 WBC (4.8-10.8) K/uL RBC (4.7-6.1) M/uL Hgb (14.0-18.0) g/dL Hct (42-52) % MCV (80-100) fL MCH (25-34) pg MCHC (32-36) g/dL RDW Std Deviation (36.4-46.3) fL RDW Coeff of Norbert (11.5-14.5) % Plt Count (130-400) K/uL MPV (7.4-10.4) fL Sodium (136-145) mmol/L Potassium (3.5-5.1) mmol/L Chloride (98-107) mmol/L Carbon Dioxide (21-32) mmol/L Anion Gap (3-11) BUN (7-18) mg/dl Creatinine (0.6-1.4) mg/dl Est Cr Clr Drug Dosing ml/min Est GFR ( Amer) Est GFR (Non-Af Amer) BUN/Creatinine Ratio (10-20) Glucose (70-99) mg/dl POC Glucose 259 H (70-99) Estimat Average Glucose Hemoglobin A1c Osmolality (280-300) mOsm/kg Calcium (8.5-10.1) mg/dl Magnesium (1.8-2.4) mg/dl Total Bilirubin (0.2-1) mg/dl AST (15-37) U/L ALT (12-78) U/L Alkaline Phosphatase (45-117) U/L Troponin I (0-0.045) ng/ml Total Protein (6.4-8.2) gm/dl Albumin (3.4-5.0) gm/dl Globulin (2.5-4.0) gm/dl Albumin/Globulin Ratio (0.9-2) Random Cortisol mcg/dl Specimen Hemolysis Urine Osmolality 438 L (500-800) mOsm/kg Ur Random Sodium 18 mmol/L Blood Type Antibody Screen Crossmatch 07/26/18 07/26/18 07/26/18 Range/Units 17:06 17:06 16:28 WBC 11.87 H (4.8-10.8) K/uL RBC 2.61 L (4.7-6.1) M/uL Hgb 8.1 L (14.0-18.0) g/dL Hct 24.7 L (42-52) % MCV 94.6 (80-100) fL MCH 31.0 (25-34) pg MCHC 32.8 (32-36) g/dL RDW Std Deviation 48.0 H (36.4-46.3) fL RDW Coeff of Norbert 14.0 (11.5-14.5) % Plt Count 158 (130-400) K/uL MPV 10.0 (7.4-10.4) fL Sodium 129 L (136-145) mmol/L Potassium 4.8 (3.5-5.1) mmol/L Chloride 99 (98-107) mmol/L Carbon Dioxide 25 (21-32) mmol/L Anion Gap 5.0 (3-11) BUN 30 H (7-18) mg/dl Creatinine 1.40 (0.6-1.4) mg/dl Est Cr Clr Drug Dosing 62.9 ml/min Est GFR ( Amer) 60.7 Est GFR (Non-Af Amer) 52.4 BUN/Creatinine Ratio 21.1 H (10-20) Glucose 210 H (70-99) mg/dl POC Glucose 226 H (70-99) Estimat Average Glucose Hemoglobin A1c Osmolality (280-300) mOsm/kg Calcium 7.8 L (8.5-10.1) mg/dl Magnesium 1.6 L (1.8-2.4) mg/dl Total Bilirubin (0.2-1) mg/dl AST (15-37) U/L ALT (12-78) U/L Alkaline Phosphatase (45-117) U/L Troponin I 5.000 H* (0-0.045) ng/ml Total Protein (6.4-8.2) gm/dl Albumin (3.4-5.0) gm/dl Globulin (2.5-4.0) gm/dl Albumin/Globulin Ratio (0.9-2) Random Cortisol mcg/dl Specimen Hemolysis Urine Osmolality (500-800) mOsm/kg Ur Random Sodium mmol/L Blood Type Antibody Screen Crossmatch 07/26/18 07/25/18 Range/Units 05:21 10:33 WBC (4.8-10.8) K/uL RBC (4.7-6.1) M/uL Hgb (14.0-18.0) g/dL Hct (42-52) % MCV (80-100) fL MCH (25-34) pg MCHC (32-36) g/dL RDW Std Deviation (36.4-46.3) fL RDW Coeff of Norbert (11.5-14.5) % Plt Count (130-400) K/uL MPV (7.4-10.4) fL Sodium (136-145) mmol/L Potassium (3.5-5.1) mmol/L Chloride (98-107) mmol/L Carbon Dioxide (21-32) mmol/L Anion Gap (3-11) BUN (7-18) mg/dl Creatinine (0.6-1.4) mg/dl Est Cr Clr Drug Dosing ml/min Est GFR ( Amer) Est GFR (Non-Af Amer) BUN/Creatinine Ratio (10-20) Glucose (70-99) mg/dl POC Glucose (70-99) Estimat Average Glucose Hemoglobin A1c Osmolality 290 (280-300) mOsm/kg Calcium (8.5-10.1) mg/dl Magnesium (1.8-2.4) mg/dl Total Bilirubin (0.2-1) mg/dl AST (15-37) U/L ALT (12-78) U/L Alkaline Phosphatase (45-117) U/L Troponin I (0-0.045) ng/ml Total Protein (6.4-8.2) gm/dl Albumin (3.4-5.0) gm/dl Globulin (2.5-4.0) gm/dl Albumin/Globulin Ratio (0.9-2) Random Cortisol mcg/dl Specimen Hemolysis Urine Osmolality (500-800) mOsm/kg Ur Random Sodium mmol/L Blood Type A Positive Antibody Screen NEGATIVE Crossmatch See Detail
[2018-07-27 15:12] LABS: Hematocrit (blood only) 31.1 % (42-52); Hemoglobin 10.4 g/dL (14.0-18.0)
[2018-07-27] MEDS: ONDANSETRON INJ 2 MG/ML 2 ML VIAL IV PRN (15:14)
[2018-07-27] MEDS: METOPROLOL SUCC 25MG EXT REL TAB PO SCH (15:14)
[2018-07-27] MEDS ORDERED: BISACODYL 5 MG TABEC PO ONE (16:33)
[2018-07-27] MEDS: ATORVASTATIN 40 MG TAB PO SCH (20:16)
[2018-07-27] MEDS: DOCUSATE SODIUM/SENNA 50/8.6MG TAB PO SCH (20:21)
[2018-07-27] MEDS: METOCLOPRAMIDE HCL INJ 5 MG/ML 2 ML VIAL IV PRN (23:51)
[2018-07-28] MEDS: POLYETHYLENE (MIRALAX) 17 GM PACK PO SCH ×3 (04:41→16:58)
[2018-07-28 06:17] LABS: Albumin Level 3.1 gm/dl (3.4-5.0); BUN Creatinine Ratio 27.2 (10-20); Calcium 8.1 mg/dl (8.5-10.1); Creatinine Clr Calc Pharmacy 67.7 ml/min; Est GFR (African American) 66.4; Est GFR (Non-African American) 57.3; Magnesium 2.6 mg/dl (1.8-2.4); Potassium 4.9 mmol/L (3.5-5.1)
[2018-07-28 06:20] LABS: Bilirubin,Total 0.9 mg/dl (0.2-1); Globulin 3.2 gm/dl (2.5-4.0); Total Protein 6.4 gm/dl (6.4-8.2)
[2018-07-28 06:41] LABS: Hematocrit (blood only) 28.6 % (42-52); Hemoglobin 9.7 g/dL (14.0-18.0); Mean Corpuscular Hgb Conc 33.9 g/dL (32-36); Mean Platelet Volume 10.7 fL (7.4-10.4); Platelet Count 164 K/uL (130-400); RDW Coefficient of Variation 14.7 % (11.5-14.5); RDW Standard Deviation 48.9 fL (36.4-46.3); Red Blood Count 3.11 M/uL (4.7-6.1); White Blood Count 11.84 K/uL (4.8-10.8)
[2018-07-28 06:46] LABS: Estimated Average Glucose 134 mg/dl; Hemoglobin A1C 6.3 % (4.5-5.6)
[2018-07-28] MEDS: ASPIRIN 81 MG ECTAB PO SCH (07:48)
[2018-07-28] MEDS: INSULIN DETEMIR FLEXPEN/FLEX TOUCH 100 UNITS/ML 3ML SC SCH ×2 (07:49→20:22)
[2018-07-28] MEDS: PANTOprazole 40 MG TAB PO SCH (07:49)
[2018-07-28] MEDS: CYANOCOBALAMIN 500 MCG TABLET (VITAMIN B-12) PO SCH (07:49)
[2018-07-28] MEDS: OMEGA-3 (PURIFIED FISH OIL) 1 GM CAP PO SCH (07:50)
[2018-07-28] MEDS: MAGNESIUM OXIDE 400 MG TAB PO SCH (07:50)
[2018-07-28] MEDS: CLOPIDOGREL BISULFATE 75 MG TAB PO SCH (07:51)
[2018-07-28] MEDS: METOPROLOL SUCC 50MG EXT REL TAB PO SCH (07:52)
[2018-07-28] MEDS: FINASTERIDE 5 MG TAB PO SCH (07:52)
[2018-07-28] MEDS: INSULIN ASPART 100 UNITS/ML 3 ML PEN SC SCH ×4 (07:54→20:29)
[2018-07-28] MEDS: NICOTINE 21 MG/24 HR TDSY TD SCH ×2 (08:06→10:01)
--- NOTE | 2018-07-28 08:22 | Anesthesiology Progress Note ---
Date of Service July 28, 2018 Anesthesia Post Procedure Vital Signs Vital Signs: Temp Pulse Pulse Resp BP BP BP 07/28/18 07:40 36.8 C 81 18 112/58 L 07/28/18 03:06 37.0 C 83 20 108/58 L 07/27/18 23:09 37.5 C 82 21 117/59 L 07/27/18 20:00 36.4 C L 84 18 93/37 L 07/27/18 16:00 36.4 C L 78 20 99/60 L 07/27/18 15:00 78 20 101/59 L 07/27/18 14:35 76 22 131/70 07/27/18 14:00 85 20 105/70 07/27/18 13:00 36.8 C 73 21 108/62 07/27/18 12:30 36.8 C 73 20 100/59 L 07/27/18 12:15 36.8 C 75 20 115/61 07/27/18 12:00 73 20 107/55 L 07/27/18 11:51 36.8 C 75 20 104/63 07/27/18 09:30 36.9 C 73 20 99/55 L 07/27/18 09:13 36.8 C 75 20 114/59 L 07/27/18 09:09 36.8 C 70 20 96/50 L 07/27/18 08:46 69 20 98/50 L 07/27/18 08:39 36.5 C 70 101/55 L 07/27/18 08:38 36.5 C 71 20 101/55 L Pulse Ox 07/28/18 07:40 96 07/28/18 03:06 90 07/27/18 23:09 93 07/27/18 20:00 93 07/27/18 16:00 96 07/27/18 15:00 95 07/27/18 14:35 95 07/27/18 14:00 95 07/27/18 13:00 96 07/27/18 12:30 95 07/27/18 12:15 95 07/27/18 12:00 07/27/18 11:51 95 07/27/18 09:30 98 07/27/18 09:13 95 07/27/18 09:09 98 07/27/18 08:46 100 07/27/18 08:39 99 07/27/18 08:38 Notes Mental Status: alert / awake / arousable and participated in evaluation Nausea / Vomiting: adequately controlled Pain: adequately controlled Airway Patency, RR, SpO2: stable & adequate BP & HR: stable & adequate Hydration State: stable & adequate
--- NOTE | 2018-07-28 09:32 | Pharmacy Report ---
Pharmacy Glycemic Short Note 2 - Date of Service July 28, 2018 - Glycemic Short BSG Results (Last 24 hours): 07/27/18 07/27/18 07/27/18 11:43 16:21 20:18 Glucose POC Glucose 158 H 123 H 210 H 07/28/18 07/28/18 05:14 07:24 Glucose 151 H POC Glucose 166 H OUTPATIENT ANTIDIABETIC REGIMEN (CONFIRMED AT BEDSIDE): * Levemir 45 units BID * Novolog 15-50 units with each meal * Metformin on occasion - however he states this typically leads to lower BGSs * A1c = 6.3% 07/27/18 CURRENT INPATIENT REGIMEN: * Levemir 23 units SQ BID * Novolog ACHS * Goal range: 110 - 140mg/dL * Correction factor: 15mg/dL/unit * Carb ratio: 1 unit per 5gm CHO consumed ASSESSMENT: * BSGs mostly at goal yesterday however pt was NPO much of the day * Levemir dose was cut in half yesterday while NPO. * Fasting BSG 166 this AM with 46 units Levemir on board. He is now order a diet and did eat breakfast this AM. He agrees that his diet is more restrictive while hospitalized but may require more basal insulin as his diet advances. Will titrate Levemir upwards today. * Current CF and CR are reasonable starting points. Will continue the same for now and follow post-prandial BSG pattern today. I suspect he may require larger prandial insulin doses based upon outpt regimen. PLAN FOR INPATIENT GLYCEMIC CONTROL: * Basal insulin (increase) * Levemir 30 units SQ BID * Bolus insulin * NovoLog per scale ACHS or Q6hrs while NPO * Goal Range: Low 110 mg/dL - High 140 mg/dL * Correction Factor: 15 mg/dL/unit * Nutritional / Prandial insulin per carb ratio of 1 unit per 5 grams CHO consumed PLAN FOR DISCHARGE: * Out pt regimen appears to have produced good results. Would recommend resuming home insulin regimen on discharge
[2018-07-28] MEDS ORDERED: INSULIN DETEMIR FLEXPEN/FLEX TOUCH 100 UNITS/ML 3ML SC ONE (11:45)
[2018-07-28] MEDS: METOCLOPRAMIDE HCL INJ 5 MG/ML 2 ML VIAL IV PRN (12:10)
[2018-07-28] MEDS: MAGNESIUM HYDROXIDE SUSP 30 ML UDC PO PRN (12:10)
[2018-07-28] MEDS ORDERED: SOD PHOSPHATE/SOD BIPHOSPHATE ENEMA 132 ML BTL PR STA (13:31)
--- NOTE | 2018-07-28 14:05 | Hospitalist Progress Note ---
Date of Service July 28, 2018 Assessment & Plan (1) Neurogenic claudication due to lumbar spinal stenosis: S/p lumbar fusion on 07/[address] Morales. - Post-op management per primary team. - Pain management per primary team. (2) NSTEMI (non-ST elevated myocardial infarction): Developed chest pain on 07/26. Trop increased to 24.8 with hypotension. Troponin peaked on 07/27 at 6am. EKG on 07/[address] depression in lateral leads. Had cardiac cath on 07/27 which showed severe multivessel disease with 99 % subtotal occlusion in proximal ramus with distal TMI (likely causing acute bump in troponin). Likely coincidental given I have no indication that spinal surgery could cause a thrombotic event. - Cardiology recommended medical management in setting of recent surgery, anemia , and PAULA. - Currently on aspirin 81 mg daily & Plavix 75 mg PO daily. - Continue metoprolol XL 100 mg PO QHS as able with BP. - Continue Atorvastatin as prescribed. (3) Coronary artery disease: H/o 3 vessel CABG in 2001 at [facility] (DELATORRE to distal LAD , FERNANDO to Acute Marginal of RCA, Radial Artery Graft to LCx branch). S/p cardiac arrest following cervical spine surgery in October 2011; AICD was placed in November 2011. ICD interrogation in May 2018 was normal. - On Aspirin, statin, Plavix as noted above; metoprolol with hold parameters. (4) ICD (implantable cardioverter-defibrillator) in place: Inserted in November 2011 following cardiac arrest post operatively following C-spine surgery. - Most recent interrogation was normal. (5) Acute respiratory failure with hypoxia: Required 2L via NC -- may be related to pulm edema. CT A/P on 07/27 showed bilat pleural effusions, pulm edema. - Restarted home Lasix 20mg daily on 07/28 - Had been held due to PAULA, hypotension. (6) Acute anemia: Baseline hgb dropped from 13.1 to 8.1 -- likely related to acute blood loss during procedure. - Transfuse to maintain hgb >9 -- received 2 units pRBCs. (7) Constipation: Last BM was on 07/24/18; very distended on exam. CT A/P on 07/27 was negative for obstruction or free air. - Senokot S 2 tabs qhs, Miralax q6hr scheduled with MOM, Dulcolax [place] and Fleet enema prn. - Adding additional Fleet Enema. - Consider methylnaltrexone if no BM after enema. (8) Acute kidney injury: Baseline ~1.1-1.2. Creatinine increased to 1.63 on 07/27, likely prerenal related to dehydration at admission vs. ATN from hypotension/acute cardiac events. - Improved to 1.3 on 07/28. - Monitor BMP daily. (9) Stage III chronic kidney disease: - GFR 50-60's. - Renally dose all meds. (10) Ischemic cardiomyopathy: - In setting of CAD, CABG x 3 vessels in 2001. - Has moderate cardiomyopathy with inferior and inferolateral akinesis, basal to mid anterior and anterolateral hypokinesis. - Continue cardiac meds as noted above. (11) HTN (hypertension): BP was low in setting of DE. Now ~115/60. - Continue Metoprolol with hold parameters. - Holding home Losartan. (12) High cholesterol: - Continued statin as prescribed. (13) Chronic systolic heart failure: - Stress echo in Jun 2018 showed EF 45-50%, mild LVH, no significant valvular abnormalities. - Repeat TTE: EF 40%, akinetic inferior and inferolateral rojas, basal to mid anterolateral and basal to mid anterior rojas hypokinetic. - Continue Metoprolol 100 mg daily with hold parameters. - Monitor I/O and daily weight closely. (14) Diabetes mellitus, type 2: - Consult pharmacy for glycemic management. - Most recent Hgb A1C was 6.8 in Mar 2018. (15) Sleep apnea: - Does not currently use CPAP due to sinus infections. - Will need to follow up with sleep medicine. 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 - MRI showed C3-C4 cord compression and intramedullary mass. - S/p C-spine surgery in October 2011 leading to complicated post op course. (17) Tobacco abuse: - Nicotine patch ordered. - Encourage tobacco cessation. (18) Obese: - BMI 36.4. - Encourage weight loss and heart healthy/carb consistent diet. (19) DVT prophylaxis: - Aspirin/Plavix. Subjective 67yo M w/ hx of back pain who presents with NSTEMI after spinal surgery. Overall, doing well. No major complaints this morning apart from constipation. Reports no fevers/chills, chest pain, shortness of breath, abdominal pain, nausea, or vomiting. Physical Exam 2 Vital Signs (Past 24 Hours): Last Vital Signs Temp 36.5 C 07/28/18 11:35 Pulse 77 07/28/18 11:35 Resp 18 07/28/18 11:35 BP 116/58 L 07/28/18 11:35 Pulse Ox 96 07/28/18 11:35 Constitutional: + obese ENMT: Mouth: + dentures and + edentulous; no TMJ abnormality Mallampati Class: III Neck: normal visual inspection, + short neck, + thick neck, + limited neck extension (slightly limited extension) and + facial hair (goatee) Respiratory: normal respiratory effort, lungs clear to auscultation normal respiratory effort Auscultation: lungs clear to auscultation bilaterally; no crackles, no rhonchi and no wheezes Cardiovascular: RRR, no murmur, no edema Rate/Rhythm: regular rate and regular rhythm Heart Sounds: no murmur Vessels: no carotid bruit Extremities: no edema Gastrointestinal (Abdomen): normal bowel sounds, soft, nontender, no hepatosplenomegaly Inspection/Auscultation: abdomen normal to inspection and + abdomen distended Musculoskeletal: Head/Neck/Chest: normocephalic and head atraumatic Neurologic: moves all extremities Psychiatric: Orientation: alert
[2018-07-28] MEDS: METOPROLOL SUCC 25MG EXT REL TAB PO SCH (16:58)
[2018-07-28] MEDS: ATORVASTATIN 40 MG TAB PO SCH (20:20)
[2018-07-28] MEDS: DOCUSATE SODIUM/SENNA 50/8.6MG TAB PO SCH (20:22)
[2018-07-29] MEDS: POLYETHYLENE (MIRALAX) 17 GM PACK PO SCH ×4 (00:14→16:58)
[2018-07-29 05:57] LABS: Hematocrit (blood only) 30.1 % (42-52); Hemoglobin 9.8 g/dL (14.0-18.0); Mean Corpuscular Hgb Conc 32.6 g/dL (32-36); Mean Corpuscular Volume 94.4 fL (80-100); Mean Platelet Volume 10.4 fL (7.4-10.4); Platelet Count 162 K/uL (130-400); RDW Coefficient of Variation 14.5 % (11.5-14.5); RDW Standard Deviation 49.3 fL (36.4-46.3); Red Blood Count 3.19 M/uL (4.7-6.1); White Blood Count 10.29 K/uL (4.8-10.8)
[2018-07-29 06:37] LABS: Albumin Level 3.1 gm/dl (3.4-5.0); BUN Creatinine Ratio 25.1 (10-20); Creatinine Clr Calc Pharmacy 68.2 ml/min; Est GFR (African American) 65.2; Est GFR (Non-African American) 56.2; Potassium 4.6 mmol/L (3.5-5.1)
[2018-07-29 06:39] LABS: Albumin Globulin Ratio 0.9 (0.9-2); Bilirubin,Total 0.7 mg/dl (0.2-1); Globulin 3.6 gm/dl (2.5-4.0); Total Protein 6.7 gm/dl (6.4-8.2)
[2018-07-29] MEDS: ASPIRIN 81 MG ECTAB PO SCH (08:11)
[2018-07-29] MEDS: FUROSEMIDE 20 MG TAB PO SCH (08:11)
[2018-07-29] MEDS: MAGNESIUM OXIDE 400 MG TAB PO SCH (08:12)
[2018-07-29] MEDS: OMEGA-3 (PURIFIED FISH OIL) 1 GM CAP PO SCH (08:12)
[2018-07-29] MEDS: FINASTERIDE 5 MG TAB PO SCH (08:12)
[2018-07-29] MEDS: METOPROLOL SUCC 50MG EXT REL TAB PO SCH (08:13)
[2018-07-29] MEDS: CLOPIDOGREL BISULFATE 75 MG TAB PO SCH (08:14)
[2018-07-29] MEDS: PANTOprazole 40 MG TAB PO SCH (08:15)
[2018-07-29] MEDS: CYANOCOBALAMIN 500 MCG TABLET (VITAMIN B-12) PO SCH (08:15)
[2018-07-29] MEDS: INSULIN ASPART 100 UNITS/ML 3 ML PEN SC SCH ×4 (08:19→21:09)
[2018-07-29] MEDS: NICOTINE 21 MG/24 HR TDSY TD SCH (08:34)
[2018-07-29] MEDS: INSULIN DETEMIR FLEXPEN/FLEX TOUCH 100 UNITS/ML 3ML SC SCH ×2 (08:47→21:12)
--- NOTE | 2018-07-29 09:28 | Orthopedic Progress Note ---
Date of Service July 28, 2018 Assessment & Plan (1) Neurogenic claudication due to lumbar spinal stenosis: At this time we will continue activity as tolerated. Transfer to the orthopedic floor once stable. Present on Admission?: Yes Subjective Patient's back pain is controlled he has no leg pain. Denies any chest pain. Physical Exam 2 Vital Signs (Past 24 Hours): Last Vital Signs Temp 36.8 C 07/29/18 07:12 Pulse 72 07/29/18 07:12 Resp 18 07/29/18 07:12 BP 121/64 07/29/18 07:12 Pulse Ox 97 07/29/18 07:12 Physical Exam: On exam he is in the chair at the bedside. Is good strength testing.
--- NOTE | 2018-07-29 10:17 | Orthopedic Progress Note ---
Date of Service July 29, 2018 Assessment & Plan (1) Neurogenic claudication due to lumbar spinal stenosis: This time he is progressing appropriately postoperatively. He may be transferred to the orthopedic floor when cleared by medicine. Present on Admission?: Yes Subjective Patient's back pain is improving. Leg symptoms markedly improved postoperatively. Physical Exam 2 Vital Signs (Past 24 Hours): Last Vital Signs Temp 36.8 C 07/29/18 07:12 Pulse 72 07/29/18 07:12 Resp 18 07/29/18 07:12 BP 121/64 07/29/18 07:12 Pulse Ox 97 07/29/18 07:12 Physical Exam: On exam he is in the chair at the bedside. Is good strength testing. Appears comfortable.
--- NOTE | 2018-07-29 10:47 | Pharmacy Report ---
Pharmacy Glycemic Short Note 2 - Date of Service July 29, 2018 - Glycemic Short BSG Results (Last 24 hours): 07/28/18 07/28/18 07/28/18 11:21 16:34 20:25 Glucose POC Glucose 232 H 161 H 207 H 07/29/18 07/29/18 05:26 07:10 Glucose 86 POC Glucose 127 H OUTPATIENT ANTIDIABETIC REGIMEN (CONFIRMED AT BEDSIDE): * Levemir 45 units BID * Novolog 15-50 units with each meal * Metformin on occasion - however he states this typically leads to lower BGSs * A1c = 6.3% 07/27/18 CURRENT INPATIENT REGIMEN: * Levemir 30 units SQ BID * Novolog ACHS * Goal range: 110 - 140mg/dL * Correction factor: 12mg/dL/unit * Carb ratio: 1 unit per 4gm CHO consumed ASSESSMENT: 07/29 * Fasting BSG 86-127 this AM with 63 units of Levemir on board. He did receive a large dose of Novolog at bedtime last evening as he ate 45gm CHO at HS. Will continue the current Levemir dose for one more day. If fasting BSG less than 100 tomorrow w/ current dose will begin to scale back again. * Uncertain if Novolog prandial dose needs to be adjusted. Lunchtime dose of Novolog uncertain from yesterday's documentation, plus uncertain if carbs consumed at lunchtime. Will continue to trail current CR today and adjust if necessary 07/28 * BSGs mostly at goal yesterday however pt was NPO much of the day * Levemir dose was cut in half yesterday while NPO. * Fasting BSG 166 this AM with 46 units Levemir on board. He is now order a diet and did eat breakfast this AM. He agrees that his diet is more restrictive while hospitalized but may require more basal insulin as his diet advances. Will titrate Levemir upwards today. * Current CF and CR are reasonable starting points. Will continue the same for now and follow post-prandial BSG pattern today. I suspect he may require larger prandial insulin doses based upon outpt regimen. PLAN FOR INPATIENT GLYCEMIC CONTROL: * Basal insulin (no change) * Levemir 30 units SQ BID * Bolus insulin (no change) * NovoLog per scale ACHS or Q6hrs while NPO * Goal Range: Low 110 mg/dL - High 140 mg/dL * Correction Factor: 12 mg/dL/unit * Nutritional / Prandial insulin per carb ratio of 1 unit per 4 grams CHO consumed PLAN FOR DISCHARGE: * Out pt regimen appears to have produced good results. Would recommend resuming home insulin regimen on discharge
[2018-07-29] MEDS ORDERED: FUROSEMIDE 20 MG in SYRINGE 0 ML IV ONE (13:38)
--- NOTE | 2018-07-29 13:43 | Hospitalist Progress Note ---
Date of Service July 29, 2018 Assessment & Plan (1) Neurogenic claudication due to lumbar spinal stenosis: S/p lumbar fusion on 07/[address] Morales. - Post-op management per primary team. - Pain management per primary team. (2) NSTEMI (non-ST elevated myocardial infarction): Developed chest pain on 07/26. Trop increased to 24.8 with hypotension. Troponin peaked on 07/27 at 6am. EKG on 07/[address] depression in lateral leads. Had cardiac cath on 07/27 which showed severe multivessel disease with 99 % subtotal occlusion in proximal ramus with distal NEMESIO flow (likely causing acute bump in troponin). Likely coincidental given I have no indication that spinal surgery could cause a thrombotic event. - Cardiology recommended medical management in setting of recent surgery, anemia , and PAULA. - Currently on aspirin 81 mg daily & Plavix 75 mg PO daily. - Continue metoprolol XL 100 mg PO QHS as able with BP. - Continue atorvastatin as prescribed. (3) Coronary artery disease: H/o 3 vessel CABG in 2001 at [facility] (DELATORRE to distal LAD , FERNANDO to Acute Marginal of RCA, Radial Artery Graft to LCx branch). S/p cardiac arrest following cervical spine surgery in October 2011; AICD was placed in November 2011. ICD interrogation in May 2018 was normal. - On Aspirin, statin, Plavix as noted above; metoprolol with hold parameters. (4) ICD (implantable cardioverter-defibrillator) in place: Inserted in November 2011 following cardiac arrest post operatively following C-spine surgery. - Most recent interrogation was normal. (5) Acute respiratory failure with hypoxia: Required 2L via NC -- may be related to pulm edema. CT A/P on 07/27 showed bilateral pleural effusions & pulm edema. - Restarted home Lasix 20mg daily on 07/28 (with extra IV dose on 07/29 due to edema). - Had been held due to PAULA, hypotension. (6) Acute anemia: Baseline hgb dropped from 13.1 to 8.1 -- likely related to acute blood loss during procedure. - Transfuse to maintain hgb >9 -- received 1 unit pRBCs on 07/26 and 1 unit on 07/27 (7) Constipation: Last BM was on 07/24/18; very distended on exam. CT A/P on 07/27 was negative for obstruction or free air. - Senokot S 2 tabs qhs, Miralax q6hr scheduled with MOM, Dulcolax [place] and Fleet enema prn. - Adding additional Fleet Enema. - On 07/28, he started to have BMs, so held off on methylnaltrexone (8) Stage III chronic kidney disease: Baseline ~1.1-1.2. Creatinine increased to 1.63 on 07/27, likely prerenal related to dehydration at admission vs. ATN from hypotension/acute cardiac events. - Improved to 1.3 on 07/28 & 07/29. - Monitor BMP daily. - Renally dose all meds. (9) Ischemic cardiomyopathy: - In setting of CAD, CABG x 3 vessels in 2001. - Has moderate cardiomyopathy with inferior and inferolateral akinesis, basal to mid anterior and anterolateral hypokinesis. - Continue cardiac meds as noted above. (10) HTN (hypertension): BP was low in setting of [place]. Now 115/60 - 120/70. - Continue metoprolol with hold parameters. - Holding home losartan. (11) High cholesterol: - Continued statin as prescribed. (12) Chronic systolic heart failure: - Stress echo in Jun 2018 showed EF 45-50%, mild LVH, no significant valvular abnormalities. - Repeat TTE: EF 40%, akinetic inferior and inferolateral rojas, basal to mid anterolateral and basal to mid anterior rojas hypokinetic. - Continue Metoprolol 100 mg daily with hold parameters. - Monitor I/O and daily weight closely. (13) Diabetes mellitus, type 2: - Consult pharmacy for glycemic management. - Most recent Hgb A1C was 6.8 in Mar 2018. (14) Sleep apnea: - Does not currently use CPAP due to sinus infections. - Will need to follow up with sleep medicine. 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 - MRI showed C3-C4 cord compression and intramedullary mass. - S/p C-spine surgery in October 2011 leading to complicated post op course. (16) Tobacco abuse: - Nicotine patch ordered. - Encourage tobacco cessation. (17) Obese: - BMI 36.4. - Encourage weight loss and heart healthy/carb consistent diet. (18) DVT prophylaxis: - Aspirin/Plavix. Please note: From cardiology and hospital medicine standpoint, the patient can be transferred to the orthopedic floor (off telemetry) or even discharged. If discharged, please discharge on aspirin 81mg, clopidogrel 75mg daily. Otherwise , should continue his home beta-angy (metoprolol XL), furosemide, and losartan. Subjective 67yo M w/ hx of back pain who presents with NSTEMI after spinal surgery. Overall, doing well. No major complaints this morning. Yesterday afternoon, he was somewhat confused, but seems more oriented today. Reports no fevers/chills, chest pain, shortness of breath, abdominal pain, nausea, or vomiting. Physical Exam 2 Vital Signs (Past 24 Hours): Last Vital Signs Temp 36.5 C 07/29/18 11:19 Pulse 75 07/29/18 11:12 Resp 26 H 07/29/18 11:19 BP 121/71 07/29/18 11:19 Pulse Ox 94 07/29/18 11:19 Constitutional: + obese ENMT: Mouth: + edentulous; no TMJ abnormality Neck: normal visual inspection and + facial hair (goatee) Respiratory: normal respiratory effort, lungs clear to auscultation normal respiratory effort Auscultation: lungs clear to auscultation bilaterally; no crackles, no rhonchi and no wheezes Cardiovascular: Rate/Rhythm: regular rate and regular rhythm Heart Sounds: no murmur Vessels: no carotid bruit Extremities: + edema (2+ up to knees) Gastrointestinal (Abdomen): normal bowel sounds, soft, nontender, no hepatosplenomegaly Inspection/Auscultation: abdomen normal to inspection and + abdomen distended Musculoskeletal: Head/Neck/Chest: normocephalic and head atraumatic Neurologic: moves all extremities Psychiatric: Orientation: alert
--- NOTE | 2018-07-29 13:49 | Cardiology Progress Note ---
Date of Service July 29, 2018 Assessment & Plan (1) NSTEMI (non-ST elevated myocardial infarction): 2. Multivessel coronary disease post CABG with patent DELATORRE to LAD 3. Ischemic cardiomyopathy with regional wall motion normalities 4. Post lumbar laminectomy/fusion 5. Anemia 6. Acute on chronic kidney disease Patient remains chest pain-free, hemodynamically and electrically stable. Troponin has peaked. On exam today appears well-perfused with minimal congestion on exam Going forward: Continue doing to platelet therapy with aspirin, clopidogrel Continue current beta-angy, high intensity statin Okay to discontinue topical nitrates From a cardiac standpoint okay for discharge when safe from a postsurgical standpoint. Subjective Patient feeling well. Sitting up in the chair. Denies any current chest pain, shortness of breath. Telemetry reviewno events Review of Systems 10 point review of systems was completed and was otherwise negative unless stated in HPI Physical Exam 2 Vital Signs (Past 24 Hours): Last Vital Signs Temp 36.5 C 07/29/18 11:19 Pulse 75 07/29/18 11:12 Resp 26 H 07/29/18 11:19 BP 121/71 07/29/18 11:19 Pulse Ox 94 07/29/18 11:19 Physical Exam: General: Comfortable, no acute distress Eyes: Sclerae anicteric, extraocular movements intact HENT: Oropharynx clear mucous membranes moist Lungs: Clear to auscultation bilaterally, no rhonchi or wheezes Cardiac: Regular rate and rhythm, no murmurs, rubs or gallops. Vascular: Right common femoral artery access site, no significant ecchymosis/ hematoma Abdomen: Soft, obese positive bowel sounds. Extremities: Well perfused, no peripheral edema Skin: No rashes or lesions. Neuro: Nonfocal Psych: Alert orient x3, normal affect and mood
[2018-07-29] MEDS: ATORVASTATIN 40 MG TAB PO SCH (21:13)
[2018-07-29] MEDS: DOCUSATE SODIUM/SENNA 50/8.6MG TAB PO SCH (21:16)
[2018-07-29] MEDS: OXYCODONE HCL IR 5 MG TAB (IMMEDIATE RELEASE) PO PRN (21:20)
[2018-07-30] MEDS: POLYETHYLENE (MIRALAX) 17 GM PACK PO SCH ×5 (01:08→20:51)
[2018-07-30 06:08] LABS: Hematocrit (blood only) 27.5 % (42-52); Mean Corpuscular Hgb Conc 32.7 g/dL (32-36); Mean Corpuscular Volume 94.5 fL (80-100); Mean Platelet Volume 10.2 fL (7.4-10.4); Platelet Count 181 K/uL (130-400); RDW Coefficient of Variation 14.6 % (11.5-14.5); RDW Standard Deviation 49.1 fL (36.4-46.3); Red Blood Count 2.91 M/uL (4.7-6.1); White Blood Count 8.94 K/uL (4.8-10.8)
[2018-07-30] MEDS: CLOPIDOGREL BISULFATE 75 MG TAB PO SCH (08:25)
[2018-07-30] MEDS: CYANOCOBALAMIN 500 MCG TABLET (VITAMIN B-12) PO SCH (08:25)
[2018-07-30] MEDS: PANTOprazole 40 MG TAB PO SCH (08:26)
[2018-07-30] MEDS: METOPROLOL SUCC 50MG EXT REL TAB PO SCH (08:26)
[2018-07-30] MEDS: MAGNESIUM OXIDE 400 MG TAB PO SCH (08:27)
[2018-07-30] MEDS: LOSARTAN POTASSIUM 25 MG TAB PO SCH (08:27)
[2018-07-30] MEDS: FINASTERIDE 5 MG TAB PO SCH (08:27)
[2018-07-30] MEDS: ASPIRIN 81 MG ECTAB PO SCH (08:27)
[2018-07-30] MEDS: FUROSEMIDE 20 MG TAB PO SCH (08:27)
[2018-07-30] MEDS: OMEGA-3 (PURIFIED FISH OIL) 1 GM CAP PO SCH (08:27)
[2018-07-30] MEDS: NICOTINE 21 MG/24 HR TDSY TD SCH (08:28)
[2018-07-30] MEDS: INSULIN DETEMIR FLEXPEN/FLEX TOUCH 100 UNITS/ML 3ML SC SCH ×2 (08:28→20:47)
[2018-07-30] MEDS: INSULIN ASPART 100 UNITS/ML 3 ML PEN SC SCH ×6 (08:30→20:56)
--- NOTE | 2018-07-30 09:15 | Pharmacy Report ---
Pharmacy Glycemic Short Note 2 - Date of Service July 30, 2018 - Glycemic Short BSG Results (Last 24 hours): 07/29/18 07/29/18 07/29/18 11:02 16:25 20:25 POC Glucose 201 H 130 H 214 H 07/30/18 07:23 POC Glucose 157 H OUTPATIENT ANTIDIABETIC REGIMEN (CONFIRMED AT BEDSIDE): * Levemir 45 units BID * Novolog 15-50 units with each meal * Metformin on occasion - however he states this typically leads to lower BGSs * A1c = 6.3% 07/27/18 CURRENT INPATIENT REGIMEN: * Levemir 30 units SQ BID * Novolog ACHS * Goal range: 110 - 140mg/dL * Correction factor: 12mg/dL/unit * Carb ratio: 1 unit per 3.5gm CHO consumed ASSESSMENT: 07/30 * Patient received 115 units of insulin over the last 24 hrs while tolerating a diet * 50% BSGs at goal yesterday * Fasting BSG 157 today, with 60 units Levemir on board. There is room to titrate dose upwards as he used greater doses as outpt * He routinely has hyperglycemia pre-lunch and HS leading me to believe that breakfast and dinner prandial doses need increased 07/29 * Fasting BSG 86-127 this AM with 63 units of Levemir on board. He did receive a large dose of Novolog at bedtime last evening as he ate 45gm CHO at HS. Will continue the current Levemir dose for one more day. If fasting BSG less than 100 tomorrow w/ current dose will begin to scale back again. * Uncertain if Novolog prandial dose needs to be adjusted. Lunchtime dose of Novolog uncertain from yesterday's documentation, plus uncertain if carbs consumed at lunchtime. Will continue to trail current CR today and adjust if necessary 07/28 * BSGs mostly at goal yesterday however pt was NPO much of the day * Levemir dose was cut in half yesterday while NPO. * Fasting BSG 166 this AM with 46 units Levemir on board. He is now order a diet and did eat breakfast this AM. He agrees that his diet is more restrictive while hospitalized but may require more basal insulin as his diet advances. Will titrate Levemir upwards today. * Current CF and CR are reasonable starting points. Will continue the same for now and follow post-prandial BSG pattern today. I suspect he may require larger prandial insulin doses based upon outpt regimen. PLAN FOR INPATIENT GLYCEMIC CONTROL: * Basal insulin (increase dose) * Levemir 36 units SQ BID * Bolus insulin (no change) * NovoLog per scale ACHS or Q6hrs while NPO * Goal Range: Low 110 mg/dL - High 140 mg/dL * Correction Factor: 12 mg/dL/unit * Nutritional / Prandial insulin per carb ratio of 1 unit per 3 grams CHO consumed w/ breakfast and dinner; 1 unit per 4gm CHO consumed w/ lunch and HS meals PLAN FOR DISCHARGE: * Out pt regimen appears to have produced good results. Would recommend resuming home insulin regimen on discharge
[2018-07-30] MEDS ORDERED: FUROSEMIDE 40 MG in SYRINGE 0 ML IV ONE (12:59)
--- NOTE | 2018-07-30 13:01 | Orthopedic Progress Note ---
Date of Service July 30, 2018 Assessment & Plan (1) Neurogenic claudication due to lumbar spinal stenosis: At this time patient will continue with physical therapy as tolerated. He is still struggling with ambulation and would be an excellent candidate for rehab. Hopefully discharge to rehab next few days. Will change and DC his dressing today. Present on Admission?: Yes Subjective Patient states his back pain is controlled leg pain improved. Physical Exam 2 Vital Signs (Past 24 Hours): Last Vital Signs Temp 36.8 C 07/30/18 08:27 Pulse 79 07/30/18 08:27 Resp 20 07/30/18 08:27 BP 142/68 H 07/30/18 08:27 Pulse Ox 95 07/30/18 08:27 Physical Exam: Patient appears comfortable. Strength intact.
--- NOTE | 2018-07-30 15:06 | Hospitalist Progress Note ---
Date of Service July 30, 2018 Assessment & Plan (1) Neurogenic claudication due to lumbar spinal stenosis: S/p lumbar fusion on 07/[address] Morales. - Post-op management per primary team. - Pain management per primary team. - Plan for rehab per orthopedic notes (2) NSTEMI (non-ST elevated myocardial infarction): Developed chest pain on 07/26. Trop increased to 24.8 with hypotension. Troponin peaked on 07/27 at 6am. EKG on 07/[address] depression in lateral leads. Had cardiac cath on 07/27 which showed severe multivessel disease with 99 % subtotal occlusion in proximal ramus with distal NEMESIO flow (likely causing acute bump in troponin). Likely coincidental given I have no indication that spinal surgery could cause a thrombotic event. - Cardiology recommended medical management in setting of recent surgery, anemia , and PAULA. - Currently on aspirin 81 mg daily & Plavix 75 mg PO daily. - Continue metoprolol XL 100 mg PO QHS as able with BP. - Continue atorvastatin as prescribed. (3) Coronary artery disease: H/o 3 vessel CABG in 2001 at [facility] (DELATORRE to distal LAD , FERNANDO to Acute Marginal of RCA, Radial Artery Graft to LCx branch). S/p cardiac arrest following cervical spine surgery in October 2011; AICD was placed in November 2011. ICD interrogation in May 2018 was normal. - On Aspirin, statin, Plavix as noted above; metoprolol with hold parameters. (4) ICD (implantable cardioverter-defibrillator) in place: Inserted in November 2011 following cardiac arrest post operatively following C-spine surgery. - Most recent interrogation was normal. (5) Acute respiratory failure with hypoxia: Required 2L via NC -- may be related to pulm edema. CT A/P on 07/27 showed bilateral pleural effusions & pulm edema. - Restarted home Lasix 20mg daily on 07/28 (with extra IV dose on 07/29 due to edema). - Had been held due to PAULA, hypotension. (6) Acute anemia: Baseline hgb dropped from 13.1 to 8.1 -- likely related to acute blood loss during procedure. - Transfuse to maintain hgb >9 -- received 1 unit pRBCs on 07/26 and 1 unit on 07/27 (7) Constipation: Last BM was on 07/24/18; very distended on exam. CT A/P on 07/27 was negative for obstruction or free air. - Senokot S 2 tabs qhs, Miralax q6hr scheduled with MOM, Dulcolax TX and Fleet enema prn. - Adding additional Fleet Enema. - On 07/28, he started to have BMs, so held off on methylnaltrexone (8) Stage III chronic kidney disease: Baseline ~1.1-1.2. Creatinine increased to 1.63 on 07/27, likely prerenal related to dehydration at admission vs. ATN from hypotension/acute cardiac events. - Improved to 1.3 on 07/28 & 07/29. - Monitor BMP daily. - Renally dose all meds. (9) Ischemic cardiomyopathy: - In setting of CAD, CABG x 3 vessels in 2001. - Has moderate cardiomyopathy with inferior and inferolateral akinesis, basal to mid anterior and anterolateral hypokinesis. - Continue cardiac meds as noted above. (10) HTN (hypertension): BP was low in setting of ID. Now 115/60 - 120/70. - Continue metoprolol with hold parameters. - Holding home losartan. (11) High cholesterol: - Continued statin as prescribed. (12) Chronic systolic heart failure: - Stress echo in Jun 2018 showed EF 45-50%, mild LVH, no significant valvular abnormalities. - Repeat TTE: EF 40%, akinetic inferior and inferolateral rojas, basal to mid anterolateral and basal to mid anterior rojas hypokinetic. - Continue Metoprolol 100 mg daily with hold parameters. - Monitor I/O and daily weight closely. - Gave dose of IV Lasix on 07/30 for leg swelling. (13) Diabetes mellitus, type 2: - Consult pharmacy for glycemic management. - Most recent Hgb A1C was 6.8 in Mar 2018. (14) Sleep apnea: - Does not currently use CPAP due to sinus infections. - Will need to follow up with sleep medicine. 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 - MRI showed C3-C4 cord compression and intramedullary mass. - S/p C-spine surgery in October 2011 leading to complicated post op course. (16) Tobacco abuse: - Nicotine patch ordered. - Encourage tobacco cessation. (17) Obese: - BMI 36.4. - Encourage weight loss and heart healthy/carb consistent diet. (18) DVT prophylaxis: - Aspirin/Plavix. Please note: From cardiology and hospital medicine standpoint, the patient can be transferred to the orthopedic floor (off telemetry) or even discharged. If discharged, please discharge on aspirin 81mg, clopidogrel 75mg daily. Otherwise , should continue his home beta-angy (metoprolol XL), furosemide, and losartan. Follow up with Dr. Aguilar in 2 weeks (I entered this in the discharge instructions.) Subjective 67yo M w/ hx of back pain who presents with NSTEMI after spinal surgery. Overall, doing well. Reports some leg edema, but no shortness of breath or chest discomfort. Reports no fevers/chills, chest pain, shortness of breath, abdominal pain, nausea, or vomiting. Physical Exam 2 Vital Signs (Past 24 Hours): Last Vital Signs Temp 36.8 C 07/30/18 08:27 Pulse 79 07/30/18 08:27 Resp 20 07/30/18 08:27 BP 142/68 H 07/30/18 08:27 Pulse Ox 95 07/30/18 08:27 Constitutional: + obese Neck: normal visual inspection and + facial hair (goatee) Respiratory: normal respiratory effort, lungs clear to auscultation normal respiratory effort Auscultation: lungs clear to auscultation bilaterally; no crackles, no rhonchi and no wheezes Cardiovascular: Rate/Rhythm: regular rate and regular rhythm Heart Sounds: no murmur Vessels: no carotid bruit Extremities: + edema (2+ up to knees) Gastrointestinal (Abdomen): normal bowel sounds, soft, nontender, no hepatosplenomegaly Inspection/Auscultation: abdomen normal to inspection and + abdomen distended Musculoskeletal: Head/Neck/Chest: normocephalic and head atraumatic Neurologic: moves all extremities Psychiatric: Orientation: alert
[2018-07-30] MEDS: DOCUSATE SODIUM/SENNA 50/8.6MG TAB PO SCH (20:48)
[2018-07-30] MEDS: ATORVASTATIN 40 MG TAB PO SCH (20:48)
[2018-07-30] MEDS: OXYCODONE HCL IR 5 MG TAB (IMMEDIATE RELEASE) PO PRN (20:49)
[2018-07-31] MEDS: POLYETHYLENE (MIRALAX) 17 GM PACK PO SCH ×2 (01:09→06:00)
[2018-07-31 06:26] LABS: Hematocrit (blood only) 29.3 % (42-52); Hemoglobin 9.5 g/dL (14.0-18.0); Mean Corpuscular Hgb Conc 32.4 g/dL (32-36); Mean Corpuscular Volume 95.1 fL (80-100); Mean Platelet Volume 9.4 fL (7.4-10.4); Platelet Count 192 K/uL (130-400); RDW Coefficient of Variation 15.1 % (11.5-14.5); RDW Standard Deviation 50.1 fL (36.4-46.3); Red Blood Count 3.08 M/uL (4.7-6.1); White Blood Count 8.85 K/uL (4.8-10.8)
[2018-07-31 07:06] LABS: BUN Creatinine Ratio 22.1 (10-20); Calcium 7.9 mg/dl (8.5-10.1); Creatinine Clr Calc Pharmacy 89.2 ml/min; Est GFR (Non-African American) 77.7; Potassium 3.8 mmol/L (3.5-5.1)
[2018-07-31 07:17] VITALS: TEMP 99.5
[2018-07-31] MEDS: OXYCODONE HCL IR 5 MG TAB (IMMEDIATE RELEASE) PO PRN (07:29)
[2018-07-31] MEDS: CLOPIDOGREL BISULFATE 75 MG TAB PO SCH (07:30)
[2018-07-31] MEDS: METOPROLOL SUCC 50MG EXT REL TAB PO SCH (07:30)
[2018-07-31] MEDS: PANTOprazole 40 MG TAB PO SCH (07:30)
[2018-07-31] MEDS: CYANOCOBALAMIN 500 MCG TABLET (VITAMIN B-12) PO SCH (07:30)
[2018-07-31] MEDS: LOSARTAN POTASSIUM 25 MG TAB PO SCH (07:31)
[2018-07-31] MEDS: FINASTERIDE 5 MG TAB PO SCH (07:31)
[2018-07-31] MEDS: OMEGA-3 (PURIFIED FISH OIL) 1 GM CAP PO SCH (07:31)
[2018-07-31] MEDS: MAGNESIUM OXIDE 400 MG TAB PO SCH (07:31)
[2018-07-31] MEDS: ASPIRIN 81 MG ECTAB PO SCH (07:31)
[2018-07-31] MEDS: NICOTINE 21 MG/24 HR TDSY TD SCH (07:32)
[2018-07-31] MEDS: FUROSEMIDE 20 MG TAB PO SCH (07:33)
[2018-07-31] MEDS: INSULIN ASPART 100 UNITS/ML 3 ML PEN SC SCH (09:01)
[2018-07-31] MEDS: INSULIN DETEMIR FLEXPEN/FLEX TOUCH 100 UNITS/ML 3ML SC SCH (09:02)
[2018-07-31 09:56] VITALS: BP 117/59; PULSE 80
--- NOTE | 2018-07-31 10:10 | Discharge Summary ---
Date of Service July 31, 2018 Admission HPI Per Admitting Provider This 67-year-old male that presents with worsening back and leg pain. After failing extensive course of nonoperative care is here for surgical intervention. Principal Diagnosis Lumbar spinal stenosis with neurogenic claudication Discharge Data Allergies Allergy/AdvReac Type Severity Reaction Status Date / Time No Known Allergies Allergy Verified 07/25/18 10:54 Consultations 07/25/18 16:37 Consult Case Management - Discharge Planning Routine Consult Hospitalist Routine 07/26/18 11:57 Consult Cardiology Routine Procedures Performed Operation Date: 06/25/18 12:05 <No data on this case meets the specified criteria> Operation Date: 07/25/18 11:35 Actual Procedures p L3-L4 Decompression and Fusion, Use of Infuse and Osteoamp(Not Applicable) - Bong Morales DO s L4-S1 Removal of Instrumentation;(Not Applicable) - Bong Morales DO Operation Date: 07/27/18 09:55 Actual Procedures p Cath, Cors with Grafts (no LV)(Not Applicable) - Christiano Larose MD s Cineradiography w/Routine Exam - Christiano Larose MD s Aspiration/PCI w/JOON for Stemi - Christiano Larose MD Ordered Studies 07/25/18 11:35 FL fluoroscopy <1hr Routine FL lumbar spine 2-3V Routine 07/27/18 09:58 CL Cath Imgs for PACS use only Urgent 07/27/18 10:02 CT abd pelvis wo con Stat Hospital Course (1) Lumbar stenosis with neurogenic claudication: Patient underwent lumbar decompression and fusion tolerated this well was taken to orthopedic floor postoperative. Unfortunately postop day 1 he began experiencing chest pain and further evaluation demonstrated evidence of cardiac event. He did undergo catheterization postop day 3. He was placed in the PCU for depth several days. He seemed to progress appropriately. Transferred ultimately to the orthopedic floor. Was able to tolerate physical therapy. No subsequently discharged home. Discharge orders and instructions found in chart for further review. Total Time Total Time Spent Total Time Spent (In Minutes): Not applicable Discharge Plan Discharge Items Patient Disposition: Home - Self-Care Reason For Visit: Spinal Stenosis Discharge Diagnosis: Lumbar spinal stenosis with neurogenic claudication Discharge Goals: Improve function Activity: Per 'Additional Instructions' section Driving/Machine Use: No limitations Non-emergency contact: Primary Care Provider Call non-emergency contact if: your pain is not controlled, your pain is worsening and you have a fever Follow-up/Referrals: Christiano Alvarez MD [Primary Care Provider] - Levi Aguilar Jr, MD, [facility] [Physician] - (Please follow up with Dr. Aguilar to in 2 weeks to address your in-hospital NSTEMI.) Diet: Regular Addtl Provider Instructions: ACTIVITY RECOMMENDATIONS: SELF CARE INSTRUCTIONS AFTER THORACIC/LUMBAR FUSIONS 1. You may walk to your tolerance. It is good exercise for your legs and back. Expect some back and intermittent leg aches and pains. 2. You may perform "counter-top" level activities (make a sandwich, daria with a project, etc.). 3. No bending or lifting of more than 10 pounds or back twisting of any nature (roll like a log when turning in bed). 4. You may ride in a car for 20-30 minutes at a time. No driving until after your first visit with your doctor. 5. Frequent changes of position and restricting sitting to 30 minutes at a time will help limit the amount of back spasms and stiffness you may experience. 6. You may discontinue the use of ambulatory aids (cane, crutches, etc.) once your strength and confidence allow. 7. You may packerhead machine operator the shower and let water strike your incision when you arrive home at least once daily. Do not take a tub bath, sit in a hot tub or go into a swimming pool until after your first recheck in the office. SPECIAL CARE INSTRUCTIONS: VERY IMPORTANT TO READ AND REVIEW A. Your surgical incision has been closed with a cosmetic suture under the skin that will dissolve in about 6 weeks. In 14 days, you can use a pair of clean scissors and cut the suture that is left outside of the skin at the ends of your incision. 1. The small skin tapes can be removed 7 days after surgery if they have not fallen off by that point. 2. You may keep the wound open to air as much as possible to promote healing after post-op day number 5 unless told otherwise by your doctor. 3. If you think the wound looks like it is becoming infected (redness or worsening drainage) and/or you are experiencing fever, chill or worsening back pain and muscle spasms, contact the office so that we may evaluate you as soon as possible. B. Complications are uncommon, but please contact us if you have any signs or symptoms of: 1. wound infection (fever higher than 102.5 degrees F, redness, separation of wound, drainage, or increasing pain from the incision) 2. blood clots in legs (pain, swelling, redness and warmth in legs) 3. urinary tract infection (fever higher than 102.5 degrees F, burning upon urination or increased frequency of urination) 4. nerve problems (inability to walk on your toes or heels, numbness, loss of bowel or bladder control) 5. any other symptoms that concern you C. Please call the office at if you have any concerns or questions about your operation or recovery. D. No smoking! Smoking drastically decreases the chance of a solid fusion. E. Do not take any anti-inflammatory medications (Indocin, Advil, Motrin, Aspirin, Naprosyn, etc.) as these may inhibit the chance of a solid fusion. Tylenol is okay to take for pain. MANAGING PAIN AFTER SPINAL SURGERY 1. Narcotic medication is intended for short-term use and will be provided for surgical pain. Surgical pain usually lasts for a period of 4-6 weeks. Narcotic medication includes Percocet, Vicodin, Darvocet, Tylenol #3 or Lortab. 2. Longer-term pain is more appropriately treated with non-narcotic medication such as Tylenol ES. 3. Muscle spasm is not appropriately treated with narcotics. Muscle relaxers such as Soma, Flexeril or Skelaxin can be used along with Tylenol ES. 4. Remember that we all live with some "aches and pains". This is not unusual or uncommon after an injury or as we get older. a. Back pain is expected and may include muscle spasms for 4 to 6 weeks after surgery. The pain should gradually improve. If the pain worsens for no apparent reason, please contact the office. b. Intermittent leg pain may also be experienced and should not be concerned about unless it worsens for no apparent reason. If so, please contact the office. 5. We will provide appropriate medication within the normal guidelines of their prescribed use. We will also be very cautious and aware of potential abuse and extended duration of patients' medication needs. a. Pain medications are for your comfort and to assist with sleep and rest so that the tissue can heal. They are not provided in order to return to normal activity and should not be used through the day. To do so or worsening pain at night can result from ongoing tissue damage and development of tolerance to the prescribed medicine. 6. Please allow 2-3 days to process refills. Prescriptions will not be mailed but must be picked up at the office. FOLLOW UP VISIT: Keep your scheduled follow-up appointment. Any questions, please call the office at . Prescriptions: New tramadol 50 mg Tablet 50 mg PO Q4H PRN (Reason: Pain, Moderate) Qty: 30 RF: 0 oxycodone 5 mg Tablet 5 mg PO Q4H PRN (Reason: Pain (Scale Score 7-10)) Qty: 30 RF: 0 Continue magnesium oxide 400 mg Capsule 400 mg PO QAM Qty: 0 RF: 0 losartan 50 mg Tablet 50 mg PO QAM Qty: 0 RF: 0 omega 8-iss-mgp-fish oil [Fish Oil] 1,000 mg (120 mg-180 mg) Capsule 1 cap PO QAM Qty: 0 RF: 0 insulin detemir U-100 100 unit/mL (3 mL) Insulin Pen 45 unit subcut BID Qty: 0 RF: 0 atorvastatin 40 mg Tablet 40 mg PO HS Qty: 0 RF: 0 aspirin 325 mg Tablet 325 mg PO QAM Qty: 0 RF: 0 furosemide [Lasix] 20 mg Tablet 20 mg PO QAM Qty: 0 RF: 0 finasteride [Proscar] 5 mg Tablet 5 mg PO QAM Qty: 0 RF: 0 coenzyme Q10 100 mg Capsule 100 mg PO QAM Qty: 0 RF: 0 cholecalciferol (vitamin D3) 1,000 unit Capsule 1,000 unit PO QAM Qty: 0 RF: 0 metoprolol succinate [Toprol XL] 100 mg Tablet Extended Release 24 Hr 100 mg PO QAM Qty: 0 RF: 0 insulin aspart U-100 100 unit/mL Insulin Pen 10 - 50 unit SC TIDM Qty: 0 RF: 0 cyanocobalamin (vitamin B-12) [Vitamin B-12] 1,000 mcg Tablet 1,000 mcg PO QAM RF: 0 vitamin B complex Tablet 1 tab PO DAILY RF: 0 metformin 1,000 mg Tablet 1,000 mg PO BID RF: 0 Stand-Alone Forms: [facility], Opioid Pain Management Discharge Orders: Discharge Order (Routine); Ordered 07/31/18 Ordered By: Bong Morales Admission Data Admit Date/Time: 07/25/18 14:42 Attending Provider: Bong Morales Admit Provider: Bong Morales Primary Care Provider: Christiano Alvarez Other Providers: Malik Fernandez ; Leno Stewart ; Reji Norris Service: Telemetry Other Interventions: Discharge Summary Assessment (RN) Last Done: 07/31/18 09:55
[2018-07-31 12:17] VITALS: O2SAT 98
--- NOTE | 2018-08-01 10:37 | Coding Query ---
CODING QUERY To promote full compliance with coding requirements relating to patient care, provider participation is requested in all cases of automotive electrician helper uncertainty. Please assist us with the question(s) below: Coding Question(s): Patient with NSTEMI status post spinal fusion. Please check below the phrase that describes the NSTEMI. Thanks for your help! JOSE Lyon [facility] Physician's Response(s): __x____ The Postoperative NSTEMI is a complication of the spinal fusion The Postoperative NSTEMI is NOT a complication of the spinal fusion Cannot determine if the Postoperative NSTEMI is a complication of the spinal fusion Other/ Please document: Principal Diagnosis: "that condition established after study, to be chiefly responsible for occasioning the admission of the patient to the hospital for care." Co-Existing Principal Diagnosis: "when two or more diagnoses equally meet the criteria for principal diagnosis as determined by the circumstances of admission , diagnostic work up, and/or therapy provided, and the Alphabetic Index, Tabular List, or another coding guideline does not provide sequencing direction , any one of the diagnoses may be sequenced first." "When the physician has documented what appears to be a current diagnosis in the body of the record, but has not included the diagnosis in the final diagnostic statement, the physician should be asked whether the diagnosis should be added." (Source Coding Clinic 2 QTR90. p3-4) [facility]
== END 2018-07-31 11:12 | disposition home health service (06) | DRG 453 ==
LOC: ASU 09:37 → 3E 14:42 → 2E 07-26 12:55 → 3N 07-30 11:32
PROC: CLB.CCG (~2018-07-25)

== ENCOUNTER 2018-08-01 13:36 | Inpatient (IN) ==
[2018-08-01] MEDS ORDERED: ONDANSETRON INJ 2 MG/ML 2 ML VIAL IV STA (14:20)
[2018-08-01] MEDS ORDERED: SODIUM CHLORIDE 0.9% 500 ML IV SCH (14:30)
[2018-08-01 15:47] LABS: Basophils # (auto) 0.02 K/uL (0-0.2); Basophils % (auto) 0.2 %; Eosinophils # (auto) 0.16 K/uL (0-0.5); Eosinophils % (auto) 1.8 %; Hematocrit (blood only) 28.5 % (42-52); Hemoglobin 9.1 g/dL (14.0-18.0); Immature Granulocytes # (auto) 0.05 K/uL (0.00-0.02); Immature Granulocytes % (auto) 0.5 %; Lymphocytes # (auto) 0.81 K/uL (1.2-3.4); Lymphocytes % (auto) 8.9 %; Mean Corpuscular Hgb Conc 31.9 g/dL (32-36); Mean Platelet Volume 9.6 fL (7.4-10.4); Monocytes % (auto) 12.1 %; Neutrophils # (auto) 6.96 K/uL (1.4-6.5); Neutrophils % (auto) 76.5 %; Platelet Count 195 K/uL (130-400); RDW Coefficient of Variation 15.1 % (11.5-14.5); RDW Standard Deviation 50.6 fL (36.4-46.3); Red Blood Count 2.97 M/uL (4.7-6.1)
[2018-08-01 16:10] LABS: Albumin Level 2.8 gm/dl (3.4-5.0); C Reactive Protein 4.07 mg/dl (0-0.29); Creatinine Clr Calc Pharmacy 98.1 ml/min; Est GFR (African American) 100.8
[2018-08-01 16:13] LABS: Albumin Globulin Ratio 0.9 (0.9-2); Bilirubin,Total 0.9 mg/dl (0.2-1); Globulin 3.3 gm/dl (2.5-4.0); Total Protein 6.1 gm/dl (6.4-8.2)
[2018-08-01] MEDS: MoRPHine SULFATE 4 MG/ML 1 ML CARP\\VIAL IV PRN ×2 (16:39→18:30)
[2018-08-01] MEDS ORDERED: ONDANSETRON INJ 2 MG/ML 2 ML VIAL IV PRN (18:50)
[2018-08-01] MEDS ORDERED: POLYETHYLENE (MIRALAX) 17 GM PACK PO PRN (18:50)
--- NOTE | 2018-08-01 19:11 | Emergency Department Note ---
Entered by Christiano Rodríguez acting as a scribe for Zeke Avendano DO History of Present Illness General Chief complaint: Back Injury/Pain Time Seen by Provider: 08/01/18 14:18 Source: patient History of Present Illness Onset (ago): week(s) 1 Location: back Pain Consistency: + other (persistent) Quality: + other (post-surgical back pain) Relieved By: + medication (oxycodone) Exacerbated By: + other (standing) Associated symptoms: + other (constipated; temporary leg numbness when on the toilet); no fever/chills and no nausea/vomiting The patient is a 67 year old male who presents to the Emergency Room with complaints of persistent back pain after surgery one week ago. He reports increasing difficulty with standing due to his pain. He states that he has been trying to walk three times per day, and his pain started worsening after walking a short distance a couple of nights ago. He reports that he is taking oxycodone. The patient reports that his surgery was performed by Dr. Morales around the L3/L4 level of the lumbar region. He notes that he was just discharged home yesterday. Family states that his physical therapist saw him today. The therapist called Dr. Dewitt office, and the patient was referred to the ER. He notes some abdominal pain. He reports that his leg became numb temporarily when sitting on the toilet. He notes that he has been constipated, and straining on the toilet causes worsening of his back pain. He denies fevers , chills, nausea, or vomiting. Home Medications Home Medications Medication Instructions Recorded Confirmed Type magnesium oxide 400 mg PO QAM #0 tab 11/27/11 08/01/18 History losartan 50 mg PO QAM #0 tab 05/26/12 08/01/18 History omega 2-vfb-lkv-fish oil [Fish Oil] 1 cap PO QAM #0 cap 05/26/12 08/01/18 History insulin detemir U-100 45 unit SUBCUT BID #0 12/10/13 08/01/18 History aspirin 325 mg PO QAM #0 tab 11/12/14 08/01/18 History atorvastatin 40 mg PO HS #0 tab 11/12/14 08/01/18 History coenzyme Q10 100 mg PO QAM #0 11/12/14 08/01/18 History finasteride [Proscar] 5 mg PO QAM #0 11/12/14 08/01/18 History furosemide [Lasix] 20 mg PO QAM #0 tab 11/12/14 08/01/18 History cholecalciferol (vitamin D3) 1,000 unit PO QAM #0 07/04/15 08/01/18 History insulin aspart U-100 10 - 50 unit SC TIDM #0 03/07/16 08/01/18 History metoprolol succinate [Toprol XL] 100 mg PO QAM #0 03/07/16 08/01/18 History metformin 1,000 mg PO BID 05/16/18 08/01/18 History cyanocobalamin (vitamin B-12) 1,000 mcg PO QAM 05/21/18 08/01/18 History [Vitamin B-12] vitamin B complex 1 tab PO QAM 07/22/18 08/01/18 History oxycodone 5 mg PO Q4H PRN #30 tab 07/31/18 08/01/18 Rx tramadol 50 mg PO Q4H PRN #30 tab 07/31/18 08/01/18 Rx Allergies Allergy/AdvReac Type Severity Reaction Status Date / Time No Known Allergies Allergy Verified 08/01/18 15:19 Past Med/Surg History Medical History Difficult airway for intubation PASS[employer] CHEF 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 Admitted [facility] 10/18/11 for onset of incapacitating cervical myelopathy. Spinal tap showed PASSEN[employer] V[employer] CHEF Lyme disease, MRI showed severe spinal cord compression at C3-4 with myelomalacia and intramedullary mass. Pt had c-spine surgery, subsequent prolonged hospital admission, complicated post-op course. Difficult intubation Sudden cardiac Post-op 2011 [facility]. Now has ICD. Sleep apnea PT NOT CURRENTLY CPAP 2/2 recurrent sinus infections. WILL SEE SLEEP MEDICINE/ DR. ARCHULETA LATE 2017 Diabetes mellitus, type 2 IDDM. Degenerative disc disease Chronic back pain CHRONIC PAIN IN LEFT LEG Ischemic cardiomyopathy EF WNL 11/2017 CAD (coronary artery disease) s/p triple CABG 2002 Full dentures (Acute) Obese (Acute) Heart disease (Acute) HTN (hypertension) (Acute) High cholesterol (Acute) Surgical History History of esophagogastroduodenoscopy (EGD) History of colonoscopy History of cardiac cath 2011 AT [facility] - UNSURE IF HE HAS STENTS. History of tracheostomy Hx of transurethral resection of prostate History of cataract extraction with lens replacement Hx of tonsillectomy (Acute) H/O cervical spine surgery (Acute) ACDI C3-4, C7 corpectomy, removal of C7 intramedullary mass. History of lumbar spinal fusion (Acute) S/P triple vessel bypass (Acute) [facility], 2002 Family History Other No pertinent family history Social History marital status: Current Living Situation: Spouse Other Information That Helps Us Care for You: No Feels Safe at Home: Yes Safety Concerns: Feels Safe At This Time Smoking Status: Never smoker Do You Dip or Chew Tobacco: Yes Second Hand Exposure: No Hx Alcohol Use: No Hx Substance Use: No Beliefs That Will Affect Care: None Preferred Language: Marshallese Communication Ability: Effective Air Pollution Inspector Required: No Review of Systems See HPI for pertinent positives & negatives. and A total of 10 systems reviewed and were otherwise negative Physical Exam Vital Signs Vital Signs - 24 hr 08/01/18 13:35 08/01/18 14:21 08/01/18 15:21 Temperature 37.3 C Temperature Source Oral Sepsis Recent Fever Within 48 Hours No Sepsis New/Unexplained Change in Mental Status No Sepsis Action Taken by Nursing No Action Required Pulse Rate 73 Pulse Rate [Finger] 71 Pulse Rhythm [Finger] Pulse Strength [Finger] Respiratory Rate 20 20 Respiratory Effort / Characteristics Non-Labored Respiratory Depth Normal Respiratory Pattern Regular Blood Pressure 134/70 Blood Pressure [Right Arm] 127/68 Blood Pressure Mean 91 Blood Pressure Mean [Right Arm] 87 Blood Pressure Position [Right Arm] Pulse Oximetry 95 97 97 Oxygen Delivery Method Room Air Room Air Room Air 08/01/18 16:44 08/01/18 18:28 08/01/18 19:20 Temperature 36.8 C 36.7 C Temperature Source Oral Oral Sepsis Recent Fever Within 48 Hours Sepsis New/Unexplained Change in Mental Status Sepsis Action Taken by Nursing Pulse Rate 79 Pulse Rate [Finger] 79 77 Pulse Rhythm [Finger] Regular Pulse Strength [Finger] Normal Respiratory Rate 20 18 20 Respiratory Effort / Characteristics Non-Labored Spontaneous Respiratory Depth Normal Respiratory Pattern Regular Blood Pressure 123/61 Blood Pressure [Right Arm] 133/67 132/73 Blood Pressure Mean Blood Pressure Mean [Right Arm] 89 92 Blood Pressure Position [Right Arm] Lying Pulse Oximetry 97 97 92 Oxygen Delivery Method Room Air Room Air Room Air 08/01/18 19:26 Temperature 36.7 C Temperature Source Oral Sepsis Recent Fever Within 48 Hours Sepsis New/Unexplained Change in Mental Status Sepsis Action Taken by Nursing Pulse Rate Pulse Rate [Finger] 77 Pulse Rhythm [Finger] Pulse Strength [Finger] Respiratory Rate 16 Respiratory Effort / Characteristics Respiratory Depth Respiratory Pattern Blood Pressure Blood Pressure [Right Arm] 132/73 Blood Pressure Mean Blood Pressure Mean [Right Arm] 92 Blood Pressure Position [Right Arm] Lying Pulse Oximetry 92 Oxygen Delivery Method Room Air GENERAL: Patient is awake, alert, and is very anxious-appearing. He appears to be in significant pain. EYES: The conjunctivae are clear. The pupils are round and reactive. EARS, NOSE, MOUTH AND THROAT: The nose is without any evidence of any deformity. Mucous membranes are moist.Tongue is midline NECK: The neck is nontender and supple. RESPIRATORY: Normal respiratory effort is noted. There is no evidence of wheezing rhonchi or rales to auscultation. CARDIOVASCULAR: Regular rate and rhythm noted. There no murmurs rubs or gallops normal S1 normal S2 GASTROINTESTINAL: The abdomen is moderately distended but without guarding or rigidity appreciated. Bowel sounds are present in all quadrants. Abdomen is nontender. BACK: There is a post-operative surgical scar in the lumbar region without dehiscence or drainage. There is mild erythema on the right lower aspect. MUSCULOSKELETAL/EXTREMITIES: There is no evidence of gross deformity. Full range of motion is noted in the hips and shoulders. SKIN: There is bilateral pedal edema. There is no obvious evidence of any rash. There are no petechiae, pallor or cyanosis noted. NEUROLOGIC: Patient is awake alert and oriented x3. Patellar reflexes are 1+ bilaterally. Great toe region was symmetric bilaterally. Course 1420: Past medical records reviewed. The patient was evaluated in room C11B, and a complete history and physical examination were performed. 1524: I consulted Dr. Morales Orthopedic Surgery. He recommends that the patient not return home at this time, as he feels that he is not doing well enough. 1738: I consulted Dr. Burr [facility] Hospitalist. He will reevaluate the patient for hospitalization. Consultations Consultation #1: I consulted Dr. Morales Orthopedic Surgery. He recommends that the patient not return home at this time, as he feels that he is not doing well enough. Time: 15:24 Consultation #2: I consulted Dr. Burr [facility] Hospitalist. He will reevaluate the patient for hospitalization. Time: 17:38 Administered Medications Atorvastatin Calcium (Lipitor) 40 mg PO HS KAYLYNN Stop: 08/31/18 20:59 Last Admin: 08/01/18 21:45 Dose: 40 mg Heparin Sodium (Porcine) (Heparin Sodium (Porcine)) 5,000 units SQ Q8 KAYLYNN Stop: 08/31/18 21:59 Last Admin: 08/01/18 22:04 Dose: 5,000 units Insulin Aspart (Novolog Flexpen) 0 units SC ACHS KAYLYNN Stop: 08/31/18 20:59 Last Admin: 08/01/18 21:44 Dose: Not Given Discontinued Medications Sodium Chloride (Nss) 500 mls @ 999 mls/hr IV .Q31M KAYLYNN Stop: 08/01/18 15:00 Last Infusion: 08/01/18 16:13 Dose: 0 mls/hr Admin: 08/01/18 15:46 Dose: 999 mls/hr Insulin Detemir (Levemir Flextouch) 22 units SQ TODAY@2205 KAYLYNN Stop: 08/01/18 22:06 Last Admin: 08/01/18 22:05 Dose: 22 units Morphine Sulfate (Morphine Sulfate) 4 mg IV Q15M PRN PRN Reason: Pain Stop: 08/15/18 14:19 Last Admin: 08/01/18 18:30 Dose: 4 mg Admin: 08/01/18 16:39 Dose: 4 mg Ondansetron HCl (Zofran) 4 mg IV NOW STA Stop: 08/01/18 14:21 Last Admin: 08/01/18 15:46 Dose: 4 mg Medical Decision Making Differential Diagnosis Differential diagnosis: Etiologies such as musculoskeletal, disc herniation, fracture, aortic disease, metastatic disease, cord compression, discitis, infection, renal colic, gastrointestinal, acute exacerbation of chronic back pain, sciatica, cauda equina, as well as others were entertained. Medical Records Attestation: I reviewed the patient's medical records. Home Medications Current Medication List: was personally reviewed by me Laboratory Data Attestation: I reviewed the patient's lab results. Result diagrams: 08/01/18 15:40 08/01/18 15:40 Lab Results 08/01/18 08/01/18 08/01/18 Range/Units 15:40 15:40 15:40 WBC 9.10 (4.8-10.8) K/uL RBC 2.97 L (4.7-6.1) M/uL Hgb 9.1 L (14.0-18.0) g/dL Hct 28.5 L (42-52) % MCV 96.0 (80-100) fL MCH 30.6 (25-34) pg MCHC 31.9 L (32-36) g/dL RDW Std Deviation 50.6 H (36.4-46.3) fL RDW Coeff of Norbert 15.1 H (11.5-14.5) % Plt Count 195 (130-400) K/uL MPV 9.6 (7.4-10.4) fL Immature Gran % (Auto) 0.5 % Neut % (Auto) 76.5 % Lymph % (Auto) 8.9 % Marion % (Auto) 12.1 % Eos % (Auto) 1.8 % Baso % (Auto) 0.2 % Immature Gran # (Auto) 0.05 H (0.00-0.02) K/uL Neut # (Auto) 6.96 H (1.4-6.5) K/uL Lymph # (Auto) 0.81 L (1.2-3.4) K/uL Marion # (Auto) 1.10 H (0.11-0.59) K/uL Eos # (Auto) 0.16 (0-0.5) K/uL Baso # (Auto) 0.02 (0-0.2) K/uL ESR 28 H (0-14) mm/hr PT (9.0-12.0) Seconds INR (0.9-1.1) Sodium 138 (136-145) mmol/L Potassium 4.0 (3.5-5.1) mmol/L Chloride 105 (98-107) mmol/L Carbon Dioxide 25 (21-32) mmol/L Anion Gap 7.0 (3-11) BUN 19 H (7-18) mg/dl Creatinine 0.92 (0.6-1.4) mg/dl Est Cr Clr Drug Dosing 98.1 ml/min Est GFR ( Amer) 100.8 Est GFR (Non-Af Amer) 87.0 BUN/Creatinine Ratio 21.0 H (10-20) Glucose 138 H (70-99) mg/dl POC Glucose (70-99) Calcium 8.0 L (8.5-10.1) mg/dl Total Bilirubin 0.9 (0.2-1) mg/dl AST 16 (15-37) U/L ALT 21 (12-78) U/L Alkaline Phosphatase 66 (45-117) U/L C-Reactive Protein 4.07 H (0-0.29) mg/dl Total Protein 6.1 L (6.4-8.2) gm/dl Albumin 2.8 L (3.4-5.0) gm/dl Globulin 3.3 (2.5-4.0) gm/dl Albumin/Globulin Ratio 0.9 (0.9-2) Lipase 77 (73-393) U/L 08/01/18 08/01/18 Range/Units 15:40 21:40 WBC (4.8-10.8) K/uL RBC (4.7-6.1) M/uL Hgb (14.0-18.0) g/dL Hct (42-52) % MCV (80-100) fL MCH (25-34) pg MCHC (32-36) g/dL RDW Std Deviation (36.4-46.3) fL RDW Coeff of Norbert (11.5-14.5) % Plt Count (130-400) K/uL MPV (7.4-10.4) fL Immature Gran % (Auto) % Neut % (Auto) % Lymph % (Auto) % Marion % (Auto) % Eos % (Auto) % Baso % (Auto) % Immature Gran # (Auto) (0.00-0.02) K/uL Neut # (Auto) (1.4-6.5) K/uL Lymph # (Auto) (1.2-3.4) K/uL Marion # (Auto) (0.11-0.59) K/uL Eos # (Auto) (0-0.5) K/uL Baso # (Auto) (0-0.2) K/uL ESR (0-14) mm/hr PT 10.4 (9.0-12.0) Seconds INR 1.0 (0.9-1.1) Sodium (136-145) mmol/L Potassium (3.5-5.1) mmol/L Chloride (98-107) mmol/L Carbon Dioxide (21-32) mmol/L Anion Gap (3-11) BUN (7-18) mg/dl Creatinine (0.6-1.4) mg/dl Est Cr Clr Drug Dosing ml/min Est GFR ( Amer) Est GFR (Non-Af Amer) BUN/Creatinine Ratio (10-20) Glucose (70-99) mg/dl POC Glucose 142 H (70-99) Calcium (8.5-10.1) mg/dl Total Bilirubin (0.2-1) mg/dl AST (15-37) U/L ALT (12-78) U/L Alkaline Phosphatase (45-117) U/L C-Reactive Protein (0-0.29) mg/dl Total Protein (6.4-8.2) gm/dl Albumin (3.4-5.0) gm/dl Globulin (2.5-4.0) gm/dl Albumin/Globulin Ratio (0.9-2) Lipase (73-393) U/L Blood Pressure Blood Pressure Findings: Normal blood pressure Blood Pressure Disposition: did not require urgent referral MDM Narrative The patient is a 67-year-old male who presented to the emergency department for an evaluation of back pain. The patient is status post back surgery. Patient denied any signs of overt infection. He was treated with pain medication in the emergency department. He was reevaluated multiple times. I discussed his case with his primary surgeon as well as the on-call [facility] hospitalist team. We initially tried to have the patient admitted for inpatient rehab because we felt this would benefit him however we were unable to. This reason he was evaluated for possible inpatient management and further treatment until he could be placed if this was more appropriate. The patient was feeling much better on subsequent reevaluation. Impression & Plan Post-operative pain, Low back pain Discharge Plan Visit Data *Final* Discharge Date/Time: 08/01/18 18:28 Chief Complaint: Back Injury/Pain ED Provider: Zeke Avendano Discharge Problem: Post-operative pain, Low back pain Patient Disposition: Admitted As Inpatient Discharge Instructions Interventions: ED Discharge Assessment Last Done: 08/01/18 18:28 The scribe's documentation has been prepared under my direction and personally reviewed by me in its entirety. I confirm that the note above accurately reflects all work, treatment, procedures, and medical decision making performed by me.
[2018-08-01] MEDS ORDERED: DEXTROSE 50% 50 ML SYRINGE IV PRN (19:34)
[2018-08-01] MEDS ORDERED: GLUCOSE 10 TABS/TUBE PO PRN (19:34)
[2018-08-01] MEDS ORDERED: GLUCAGON FOR INJ 1 MG VIAL IM PRN (19:34)
[2018-08-01] MEDS ORDERED: CARBOHYDRATES FOR HYPOGLYCEMIA PO PRN (19:34)
[2018-08-01 19:52] LABS: Prothrombin Time 10.4 Seconds (9.0-12.0)
[2018-08-01] MEDS: INSULIN ASPART 100 UNITS/ML 3 ML PEN SC SCH (21:44)
[2018-08-01] MEDS: ATORVASTATIN 40 MG TAB PO SCH (21:45)
[2018-08-01] MEDS ORDERED: Nursing to Pharmacy Communication ONE (21:59)
[2018-08-01] MEDS: HEPARIN SOD 5,000 UNIT/0.5 ML VIAL SQ SCH (22:04)
[2018-08-01] MEDS ORDERED: INSULIN DETEMIR FLEXPEN/FLEX TOUCH 100 UNITS/ML 3ML SQ SCH (22:05)
--- NOTE | 2018-08-01 23:37 | History & Physical Report ---
Date of Service August 01, 2018 Assessment & Plan (1) Post-operative pain: s/p lumbar decompression last week, just discharged on 07/31 severe pain, will use Oxycodone 10mg q4 and Dilaudid 1mg IV q4 PRN pain seems severe for pack surgery but not necessarily out of the question for post operative pain no red flags: no fever/chills or sweats, no loss of sensation or motor function in legs, no bowel or bladder incontinence observe on medical/surgical floor consult Dr. Morales, defer to him on whether or not the patient needs repeat imaging to explain the pain consult PT/OT will try to get into rehab (2) Constipation: use Miralax PRN, the patient only had one small BM while here last week abdomen is distended but there are bowels sounds, doubt ileus (3) Chronic systolic heart failure: patient examines with some fluid in his legs bilaterally, will utilize Lasix 40mg PO daily (was on 20mg at home) continue Toprol (4) Stage III chronic kidney disease: Cr stable at 0.92 (5) Acute anemia: had some blood loss last admission Hb is stable at 9.1, continue to monitor (6) Ischemic cardiomyopathy: chronic systolic HF but has a mild acute component, edema in legs treat with Lasix, continue Toprol (7) ICD (implantable cardioverter-defibrillator) in place: (8) Coronary artery disease: no current chest pain continue aspirin and Plavix, statin therapy (9) Diabetes mellitus, type 2: continue Levemir write for aggressive sliding scale with Novolog diabetic diet History of Present Illness Chief Complaint: my back is killing me Primary Care Provider: Edd Alvarez MD 67 yo male with complicated medical history of CABG, stents, persistent angina, combined systolic and diastolic HF, ischemic cardiomyopathy, insulin dependent diabetes and recent history of lumbar spine surgery, presents today with intractable pain. The past was just discharged on 07/31, one day prior to his presentation. He had an uncomplicated lumbar decompression and fusion on last admission. However, his post op course was complicated by an NSTEMI. He underwent heart catheterization that showed a 99% occlsion, opted for medical therapy given the patient's recent back surgery. He reports that prior to discharge he was able to stand and take a few steps with his walker. He says that his midline back pain was not this intense. He said that pain is incredibly severe, difficult to find position of comfort. He has decreased ROM and decreased strength in the legs due to the pain. Prior to his lumbar surgery , he was experiencing radicular pain that went to his left hip and down his left leg. The lumbar decompression resolved this pain. He has not had any fever or chills, no bowel or bladder incontinence, no weakness or paralysis in his legs. The pain is over the midline incision. No purulent drainage has been seen at home. Patient and his are concerned, it did not take this long to recover from prior spine surgery. Discussed that he may have been slowed down in recovery due to NSTEMI. However, that would not lead to increased pain. He denies falling or trauma to the spine. He has been trying Ultram and oxycodone for pain, no success. Allergies Allergy/AdvReac Type Severity Reaction Status Date / Time No Known Allergies Allergy Verified 08/01/18 15:19 Home Medications Home Medications Medication Instructions Recorded Confirmed Type magnesium oxide 400 mg PO QAM #0 tab 11/27/11 08/01/18 History losartan 50 mg PO QAM #0 tab 05/26/12 08/01/18 History omega 0-lrc-tsh-fish oil [Fish Oil] 1 cap PO QAM #0 cap 05/26/12 08/01/18 History insulin detemir U-100 45 unit SUBCUT BID #0 12/10/13 08/01/18 History aspirin 325 mg PO QAM #0 tab 11/12/14 08/01/18 History atorvastatin 40 mg PO HS #0 tab 11/12/14 08/01/18 History coenzyme Q10 100 mg PO QAM #0 11/12/14 08/01/18 History finasteride [Proscar] 5 mg PO QAM #0 11/12/14 08/01/18 History furosemide [Lasix] 20 mg PO QAM #0 tab 11/12/14 08/01/18 History cholecalciferol (vitamin D3) 1,000 unit PO QAM #0 07/04/15 08/01/18 History insulin aspart U-100 10 - 50 unit SC TIDM #0 03/07/16 08/01/18 History metoprolol succinate [Toprol XL] 100 mg PO QAM #0 03/07/16 08/01/18 History metformin 1,000 mg PO BID 05/16/18 08/01/18 History cyanocobalamin (vitamin B-12) 1,000 mcg PO QAM 05/21/18 08/01/18 History [Vitamin B-12] vitamin B complex 1 tab PO QAM 07/22/18 08/01/18 History oxycodone 5 mg PO Q4H PRN #30 tab 07/31/18 08/01/18 Rx tramadol 50 mg PO Q4H PRN #30 tab 07/31/18 08/01/18 Rx Past Med/Surg History Medical History Difficult airway for intubation [employer] 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 Admitted [facility] 10/18/11 for onset of incapacitating cervical myelopathy. Spinal tap showed [employer] Lyme disease, MRI showed severe spinal cord compression at C3-4 with myelomalacia and intramedullary mass. Pt had c-spine surgery, subsequent prolonged hospital admission, complicated post-op course. Difficult intubation Sudden cardiac Post-op 2011 [facility]. Now has ICD. Sleep apnea PT NOT CURRENTLY CPAP 2/2 recurrent sinus infections. WILL SEE SLEEP MEDICINE/ DR. ARCHULETA LATE 2017 Diabetes mellitus, type 2 IDDM. Degenerative disc disease Chronic back pain CHRONIC PAIN IN LEFT LEG Ischemic cardiomyopathy EF WNL 11/2017 CAD (coronary artery disease) s/p triple CABG 2002 Full dentures (Acute) Obese (Acute) Heart disease (Acute) HTN (hypertension) (Acute) High cholesterol (Acute) Surgical History History of esophagogastroduodenoscopy (EGD) History of colonoscopy History of cardiac cath 2011 AT [facility] - UNSURE IF HE HAS STENTS. History of tracheostomy Hx of transurethral resection of prostate History of cataract extraction with lens replacement Hx of tonsillectomy (Acute) H/O cervical spine surgery (Acute) ACDI C3-4, C7 corpectomy, removal of C7 intramedullary mass. History of lumbar spinal fusion (Acute) S/P triple vessel bypass (Acute) [facility] [place] Family History Other No pertinent family history Social History marital status: Current Living Situation: Spouse Other Information That Helps Us Care for You: No Feels Safe at Home: Yes Safety Concerns: Feels Safe At This Time Smoking Status: Never smoker Do You Dip or Chew Tobacco: Yes Second Hand Exposure: No Hx Alcohol Use: No Hx Substance Use: No Beliefs That Will Affect Care: None Preferred Language: Scottish Communication Ability: Effective Software Clerk Required: No Review of Systems All systems reviewed & are unremarkable except as noted in HPI & below Constitutional: + fatigue and + weakness; no fever, no chills, no sweats, no body aches and no anorexia Respiratory: + dyspnea on exertion; no dyspnea, no pain on inspiration and no wheezing Cardiovascular: no chest pain, no chest pain at rest and no palpitations Musculoskeletal: + back pain (severe, 9 out of 10) Neurologic: + tremor(s) Physical Exam 2 Vital Signs (Past 24 Hours): Last Vital Signs Temp 36.7 C 08/01/18 19:26 Pulse 77 08/01/18 19:26 Resp 16 08/01/18 19:26 BP 132/73 08/01/18 19:26 Pulse Ox 92 08/01/18 19:26 Constitutional: WD/WN, vitals as above + obese Eyes: PERRL, conjunctivae normal, anicteric sclerae ENMT: external ear and nose normal, oropharynx normal Neck: trachea midline, no thyromegaly Respiratory: normal respiratory effort, lungs clear to auscultation Cardiovascular: Rate/Rhythm: regular rate and regular rhythm Heart Sounds: normal S1 and normal S2; no murmur Vessels: no JVD Extremities: + edema ( bilaterally to the knees) Gastrointestinal (Abdomen): normal bowel sounds, soft, nontender, no hepatosplenomegaly Inspection/Auscultation: + abdomen distended Musculoskeletal: Head/Neck/Chest: normocephalic and head atraumatic Spine: + limited cervical ROM (prior surgery) and + limited thoraco-lumbar ROM (due to severe pain, dressing intact) Extremities: extremities normal to inspection and + limited ROM of extremities (cannot raise legs off of beed due to severe low back pain); normal muscle tone, no cyanosis and no clubbing Skin: no rashes, warm and dry Neurologic: patellar DTR's 2+ bilat, sensation intact and PERRL, EOMI, accommodation nl, no face palsy, no dysarthria moves all extremities Psychiatric: A+Ox3, euthymic affect Lymphatic: no cervical or axillary lymphadenopathy Results & Data Laboratory Results Laboratory Results - last 24 hr 08/01/18 08/01/18 08/01/18 15:40 15:40 15:40 WBC 9.10 RBC 2.97 L Hgb 9.1 L Hct 28.5 L MCV 96.0 MCH 30.6 MCHC 31.9 L RDW Std Deviation 50.6 H RDW Coeff of Norbert 15.1 H Plt Count 195 MPV 9.6 Immature Gran % (Auto) 0.5 Neut % (Auto) 76.5 Lymph % (Auto) 8.9 [place] % (Auto) 12.1 Eos % (Auto) 1.8 Baso % (Auto) 0.2 Immature Gran # (Auto) 0.05 H Neut # (Auto) 6.96 H Lymph # (Auto) 0.81 L [place] # (Auto) 1.10 H Eos # (Auto) 0.16 Baso # (Auto) 0.02 ESR 28 H PT INR Sodium 138 Potassium 4.0 Chloride 105 Carbon Dioxide 25 Anion Gap 7.0 BUN 19 H Creatinine 0.92 Est Cr Clr Drug Dosing 98.1 Est GFR ( Amer) 100.8 Est GFR (Non-Af Amer) 87.0 BUN/Creatinine Ratio 21.0 H Glucose 138 H POC Glucose Calcium 8.0 L Total Bilirubin 0.9 AST 16 ALT 21 Alkaline Phosphatase 66 C-Reactive Protein 4.07 H Total Protein 6.1 L Albumin 2.8 L Globulin 3.3 Albumin/Globulin Ratio 0.9 Lipase 77 08/01/18 08/01/18 15:40 21:40 WBC RBC Hgb Hct MCV MCH MCHC RDW Std Deviation RDW Coeff of Norbert Plt Count MPV Immature Gran % (Auto) Neut % (Auto) Lymph % (Auto) [place] % (Auto) Eos % (Auto) Baso % (Auto) Immature Gran # (Auto) Neut # (Auto) Lymph # (Auto) [place] # (Auto) Eos # (Auto) Baso # (Auto) ESR PT 10.4 INR 1.0 Sodium Potassium Chloride Carbon Dioxide Anion Gap BUN Creatinine Est Cr Clr Drug Dosing Est GFR ( Amer) Est GFR (Non-Af Amer) BUN/Creatinine Ratio Glucose POC Glucose 142 H Calcium Total Bilirubin AST ALT Alkaline Phosphatase C-Reactive Protein Total Protein Albumin Globulin Albumin/Globulin Ratio Lipase
[2018-08-02] MEDS: OXYCODONE HCL IR 5 MG TAB (IMMEDIATE RELEASE) PO PRN ×2 (01:21→05:04)
[2018-08-02] MEDS: HEPARIN SOD 5,000 UNIT/0.5 ML VIAL SQ SCH ×3 (05:05→21:33)
[2018-08-02 07:25] LABS: Basophils # (auto) 0.03 K/uL (0-0.2); Basophils % (auto) 0.4 %; Eosinophils # (auto) 0.19 K/uL (0-0.5); Eosinophils % (auto) 2.6 %; Hematocrit (blood only) 27.6 % (42-52); Hemoglobin 8.8 g/dL (14.0-18.0); Immature Granulocytes # (auto) 0.04 K/uL (0.00-0.02); Immature Granulocytes % (auto) 0.5 %; Lymphocytes # (auto) 0.61 K/uL (1.2-3.4); Lymphocytes % (auto) 8.2 %; Mean Corpuscular Hgb Conc 31.9 g/dL (32-36); Mean Corpuscular Volume 96.8 fL (80-100); Mean Platelet Volume 9.5 fL (7.4-10.4); Monocytes # (auto) 0.93 K/uL (0.11-0.59); Monocytes % (auto) 12.6 %; Neutrophils % (auto) 75.7 %; Platelet Count 191 K/uL (130-400); RDW Standard Deviation 52.2 fL (36.4-46.3); Red Blood Count 2.85 M/uL (4.7-6.1)
[2018-08-02 07:46] LABS: Polychromasia 1+
[2018-08-02 08:07] LABS: BUN Creatinine Ratio 19.5 (10-20); Calcium 7.9 mg/dl (8.5-10.1); Creatinine Clr Calc Pharmacy 92.5 ml/min; Est GFR (African American) 99.5; Est GFR (Non-African American) 85.8; Potassium 4.7 mmol/L (3.5-5.1)
[2018-08-02] MEDS: HYDROmorphone INJ 1 MG/ML SYRINGE IV PRN (08:20)
[2018-08-02] MEDS ORDERED: COENZYME Q10 100 MG PO SCH (09:00)
[2018-08-02] MEDS ORDERED: FUROSEMIDE 20 MG TAB PO SCH ×2 (09:00)
[2018-08-02] MEDS: MAGNESIUM OXIDE 400 MG TAB PO SCH (10:02)
[2018-08-02] MEDS: VITAMIN B COMPLEX TAB PO SCH (10:02)
[2018-08-02] MEDS: CHOLECALCIFEROL 1,000 UNITS TAB PO SCH (10:02)
[2018-08-02] MEDS: FUROSEMIDE 40 MG TAB PO SCH (10:02)
[2018-08-02] MEDS: FINASTERIDE 5 MG TAB PO SCH (10:03)
[2018-08-02] MEDS: CYANOCOBALAMIN 500 MCG TABLET (VITAMIN B-12) PO SCH (10:03)
[2018-08-02] MEDS: METOPROLOL SUCC 50MG EXT REL TAB PO SCH (10:04)
[2018-08-02] MEDS: ASPIRIN 81 MG ECTAB PO SCH (10:04)
[2018-08-02] MEDS: CLOPIDOGREL BISULFATE 75 MG TAB PO SCH (10:05)
[2018-08-02] MEDS: LOSARTAN POTASSIUM 50 MG TAB PO SCH (10:06)
[2018-08-02] MEDS: OMEGA-3 (PURIFIED FISH OIL) 1 GM CAP PO SCH (10:06)
[2018-08-02] MEDS: INSULIN DETEMIR FLEXPEN/FLEX TOUCH 100 UNITS/ML 3ML SQ SCH ×2 (10:07→21:33)
[2018-08-02] MEDS: INSULIN ASPART 100 UNITS/ML 3 ML PEN SC SCH ×4 (10:08→21:32)
--- NOTE | 2018-08-02 10:58 | Consultation ---
Date of Consultation August 02, 2018 Assessment & Plan (1) Post-operative pain: At this point time would like to manage his pain by adding some Toradol and some Decadron in addition to current pain control medications. If this does not improve his pain within the next 24 hours may consider updating imaging of his lumbar spine. Very light activity mostly bedrest with bathroom privileges recommended. Continue aggressive bowel regimen. Supervising Physician Co-Signing Physician Notes Dr. Bong Morales History of Present Illness Attending Physician: Malik Fernandez MD Leandro is a 67-year-old gentleman well-known to our practice. He underwent a posterior lumbar decompression fusion by Dr. Morales on July 25. He did have a complicated postoperative course including an NST HANNA. He was subsequently discharged home on July 31. He states he had an increase in back pain while home. He was taking oxycodone but this does not appear to be on a regular basis. He states sometimes when he stands up he has right-sided radicular pain along the posterior thigh and calf. He has been ambling with a walker. Denies new chest pain or shortness of breath. He also notes "fluid on my legs." He reports abdominal pain as well. Allergies Allergy/AdvReac Type Severity Reaction Status Date / Time No Known Allergies Allergy Verified 08/01/18 15:19 Home Medications Home Medications Medication Instructions Recorded Confirmed Type magnesium oxide 400 mg PO QAM #0 tab 11/27/11 08/01/18 History losartan 50 mg PO QAM #0 tab 05/26/12 08/01/18 History omega 8-iso-gbq-fish oil [Fish Oil] 1 cap PO QAM #0 cap 05/26/12 08/01/18 History insulin detemir U-100 45 unit SUBCUT BID #0 12/10/13 08/01/18 History aspirin 325 mg PO QAM #0 tab 11/12/14 08/01/18 History atorvastatin 40 mg PO HS #0 tab 11/12/14 08/01/18 History coenzyme Q10 100 mg PO QAM #0 11/12/14 08/01/18 History finasteride [Proscar] 5 mg PO QAM #0 11/12/14 08/01/18 History furosemide [Lasix] 20 mg PO QAM #0 tab 11/12/14 08/01/18 History cholecalciferol (vitamin D3) 1,000 unit PO QAM #0 07/04/15 08/01/18 History insulin aspart U-100 10 - 50 unit SC TIDM #0 03/07/16 08/01/18 History metoprolol succinate [Toprol XL] 100 mg PO QAM #0 03/07/16 08/01/18 History metformin 1,000 mg PO BID 05/16/18 08/01/18 History cyanocobalamin (vitamin B-12) 1,000 mcg PO QAM 05/21/18 08/01/18 History [Vitamin B-12] vitamin B complex 1 tab PO QAM 07/22/18 08/01/18 History oxycodone 5 mg PO Q4H PRN #30 tab 07/31/18 08/01/18 Rx tramadol 50 mg PO Q4H PRN #30 tab 07/31/18 08/01/18 Rx Patient History Medical History Difficult airway for intubation [employer] 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 Admitted [facility] 10/18/11 for onset of incapacitating cervical myelopathy. Spinal tap showed [employer] Lyme disease, MRI showed severe spinal cord compression at C3-4 with myelomalacia and intramedullary mass. Pt had c-spine surgery, subsequent prolonged hospital admission, complicated post-op course. Difficult intubation Sudden cardiac Post-op 2011 [facility]. Now has ICD. Sleep apnea PT NOT CURRENTLY CPAP 2/2 recurrent sinus infections. WILL SEE SLEEP MEDICINE/ DR. ARCHULETA LATE 2017 Diabetes mellitus, type 2 IDDM. Degenerative disc disease Chronic back pain CHRONIC PAIN IN LEFT LEG Ischemic cardiomyopathy EF WNL 11/2017 CAD (coronary artery disease) s/p triple CABG 2003 Full dentures (Acute) Obese (Acute) Heart disease (Acute) HTN (hypertension) (Acute) High cholesterol (Acute) Surgical History History of esophagogastroduodenoscopy (EGD) History of colonoscopy History of cardiac cath 2011 AT [facility] - UNSURE IF HE HAS STENTS. History of tracheostomy Hx of transurethral resection of prostate History of cataract extraction with lens replacement Hx of tonsillectomy (Acute) H/O cervical spine surgery (Acute) ACDI C3-4, C7 corpectomy, removal of C7 intramedullary mass. History of lumbar spinal fusion (Acute) S/P triple vessel bypass (Acute) [facility] Family History Other No pertinent family history Social History marital status: Current Living Situation: Spouse Other Information That Helps Us Care for You: No Feels Safe at Home: Yes Safety Concerns: Feels Safe At This Time Smoking Status: Never smoker Do You Dip or Chew Tobacco: Yes Second Hand Exposure: No Hx Alcohol Use: No Hx Substance Use: No Beliefs That Will Affect Care: None Communication Ability: Effective Review of Systems Abdominal pain Lower back pain Right lower extremity pain Physical Exam 2 Vital Signs (Past 24 Hours): Last Vital Signs Temp 36.8 C 08/02/18 08:01 Pulse 78 08/02/18 08:01 Resp 18 08/02/18 08:01 BP 110/62 08/02/18 08:01 Pulse Ox 98 08/02/18 08:01 Physical Exam: Patient appears moderately uncomfortable. Alert and oriented x3. He is able to roll over and sit up with assistance. Lumbar incision has modest drainage. No erythema. There is some ecchymosis and modest edema. Strength is 5/5 bilateral lower extremities. Calves are soft nontender bilaterally. Constitutional: well developed and + in distress Eyes: normal visual davies by confrontation ENMT: external ear and nose normal, oropharynx normal Neck: normal visual inspection Respiratory: normal respiratory effort Cardiovascular: Rate/Rhythm: regular rate Extremities: + edema Gastrointestinal (Abdomen): Inspection/Auscultation: + abdomen distended Musculoskeletal: Extremities: strength 5/5 throughout Skin: no rashes, warm and dry Neurologic: CN's II-XI intact bilaterally and deep tendon reflexes 2+ bilaterally Psychiatric: A+Ox3, euthymic affect Eye Contact: good eye contact
[2018-08-02] MEDS ORDERED: BISACODYL 10 MG SUPP PR PRN (11:01)
[2018-08-02] MEDS ORDERED: SOD PHOSPHATE/SOD BIPHOSPHATE ENEMA 132 ML BTL PR PRN (11:02)
[2018-08-02] MEDS: DEXAMETHASONE SOD PHOSPHATE 8 MG in SYRINGE 0 ML IV SCH ×2 (12:09→18:46)
[2018-08-02 13:16] LABS: Appearance Urine Cloudy (Clear); Bacteria Urine Automated Negative (Negative); Bilirubin Urine Negative (Negative); Blood Urine Negative (Negative); Color Urine Dark Yellow; Glucose Urine UA Negative (Negative); Ketones Urine Negative (Negative); Leukocyte Esterase Urine Trace (Negative); Nitrite Urine Negative (Negative); Protein Urine Negative (Negative); RBC Urine Automated 0-4 /hpf (0-4); Specific Gravity Urine 1.024 (1.000-1.030); Urobilinogen Urine Negative (Negative); pH Urine 5.5 (4.5-7.5)
[2018-08-02 13:23] LABS: Sperm Urine Present (None Prsent)
[2018-08-02] MEDS: KETOROLAC TROMETHAMINE 15 MG/ML VIAL IV PRN ×2 (13:36→19:32)
--- NOTE | 2018-08-02 14:08 | Hospitalist Progress Note ---
Date of Service August 02, 2018 Assessment & Plan (1) Post-operative pain: S/p lumbar decompression last week, just discharged on 07/31. - No red flags: no fever/chills or sweats, no loss of sensation or motor function in legs, no bowel or bladder incontinence - Seen by ortho with plan for ketorolac and dexamethasone - Monitor back pain; consider imaging tomorrow if no improvement - PT/OT -> Possible rehab (2) Constipation: Use Miralax PRN, the patient only had one small BM while here last week. Abdomen is distended but there are bowels sounds. - Bowel regimen (3) Chronic systolic heart failure: Patient needed some intermittent Lasix on last admission. Still has some swelling, but mild. No shortness of breath to indicate pulmonary edema. - Continue Toprol - Lasix increased from 20mg PO daily to 40mg PO daily by admitted provider - Monitor volume status (4) Stage III chronic kidney disease: Baseline Cr stable at 0.92. - Monitor Cr while inpatient (5) Acute anemia: Had some blood loss last admission for surgery. Hgb is stable at 9.1 on admission. - Monitor hgb (6) Ischemic cardiomyopathy: Chronic systolic HF. - Continue treatment as above (7) ICD (implantable cardioverter-defibrillator) in place: Inserted in 11/2011 after cardiac arrest after prior C-spine surgery. No discharges. - Monitor (8) Coronary artery disease: H/o 3 vessel CABG in 2001 at [facility] (DELATRORE to distal LAD , FERNANDO to Acute Marginal of RCA, Radial Artery Graft to LCx branch). Had NSTEMI after surgery during prior admission. Underwent cath with distal disease noted. No stent; treated medically. No current chest pain. - Continue aspirin and Plavix, statin therapy (9) Diabetes mellitus, type 2: Continue Levemir. - Sliding scale with Novolog - Diabetic diet (10) DVT prophylaxis: Heparin 5000 units TID Subjective 67yo M w/ recent back surgery, re-presented due to worse back pain. Today, his back pain is already down to a 2/10 with our pain meds. Orthopedics added toradol and dexamethasone. If pain not improved by tomorrow, will consider further imaging. Reports no fevers/chills, chest pain, shortness of breath, abdominal pain, nausea, or vomiting. Physical Exam 2 Vital Signs (Past 24 Hours): Last Vital Signs Temp 36.7 C 08/02/18 11:34 Pulse 72 08/02/18 11:34 Resp 20 08/02/18 11:34 BP 126/78 08/02/18 11:34 Pulse Ox 94 08/02/18 11:34 Constitutional: WD/WN, vitals as above + obese Eyes: PERRL, conjunctivae normal, anicteric sclerae ENMT: external ear and nose normal, oropharynx normal Neck: trachea midline, no thyromegaly Respiratory: normal respiratory effort, lungs clear to auscultation Cardiovascular: Rate/Rhythm: regular rate and regular rhythm Heart Sounds: normal S1 and normal S2; no murmur Vessels: no JVD Extremities: + edema ( bilaterally to the knees) Gastrointestinal (Abdomen): normal bowel sounds, soft, nontender, no hepatosplenomegaly Inspection/Auscultation: + abdomen distended Musculoskeletal: Head/Neck/Chest: normocephalic and head atraumatic Spine: + limited cervical ROM (prior surgery) and + limited thoraco-lumbar ROM (due to severe pain, dressing intact) Extremities: extremities normal to inspection and + limited ROM of extremities (cannot raise legs off of beed due to severe low back pain); normal muscle tone, no cyanosis and no clubbing Skin: no rashes, warm and dry Neurologic: patellar DTR's 2+ bilat, sensation intact and PERRL, EOMI, accommodation nl, no face palsy, no dysarthria moves all extremities Psychiatric: A+Ox3, euthymic affect Lymphatic: no cervical or axillary lymphadenopathy
[2018-08-02] MEDS: ATORVASTATIN 40 MG TAB PO SCH (21:34)
[2018-08-02] MEDS: DOCUSATE SODIUM/SENNA 50/8.6MG TAB PO SCH (21:34)
[2018-08-03] MEDS: DEXAMETHASONE SOD PHOSPHATE 8 MG in SYRINGE 0 ML IV SCH (03:17)
[2018-08-03] MEDS: HEPARIN SOD 5,000 UNIT/0.5 ML VIAL SQ SCH ×3 (05:49→22:16)
[2018-08-03] MEDS: OXYCODONE HCL IR 5 MG TAB (IMMEDIATE RELEASE) PO PRN ×4 (06:26→22:45)
[2018-08-03 06:50] LABS: Hematocrit (blood only) 31.7 % (42-52); Hemoglobin 10.1 g/dL (14.0-18.0); Mean Corpuscular Hgb Conc 31.9 g/dL (32-36); Mean Corpuscular Volume 94.9 fL (80-100); Mean Platelet Volume 9.6 fL (7.4-10.4); Platelet Count 276 K/uL (130-400); RDW Coefficient of Variation 14.7 % (11.5-14.5); RDW Standard Deviation 50.3 fL (36.4-46.3); Red Blood Count 3.34 M/uL (4.7-6.1); White Blood Count 9.72 K/uL (4.8-10.8)
[2018-08-03 07:29] LABS: Calcium 8.6 mg/dl (8.5-10.1); Creatinine Clr Calc Pharmacy 89.1 ml/min; Est GFR (Non-African American) 77.7; Magnesium 2.5 mg/dl (1.8-2.4); Potassium 4.4 mmol/L (3.5-5.1)
[2018-08-03] MEDS: OMEGA-3 (PURIFIED FISH OIL) 1 GM CAP PO SCH (08:49)
[2018-08-03] MEDS: DOCUSATE SODIUM/SENNA 50/8.6MG TAB PO SCH ×2 (08:49→22:15)
[2018-08-03] MEDS: MAGNESIUM OXIDE 400 MG TAB PO SCH (08:50)
[2018-08-03] MEDS: FINASTERIDE 5 MG TAB PO SCH (08:50)
[2018-08-03] MEDS: VITAMIN B COMPLEX TAB PO SCH (08:50)
[2018-08-03] MEDS: FUROSEMIDE 40 MG TAB PO SCH (08:50)
[2018-08-03] MEDS: ASPIRIN 81 MG ECTAB PO SCH (08:50)
[2018-08-03] MEDS: CLOPIDOGREL BISULFATE 75 MG TAB PO SCH (08:51)
[2018-08-03] MEDS: LOSARTAN POTASSIUM 50 MG TAB PO SCH (08:51)
[2018-08-03] MEDS: CYANOCOBALAMIN 500 MCG TABLET (VITAMIN B-12) PO SCH (08:51)
[2018-08-03] MEDS: CHOLECALCIFEROL 1,000 UNITS TAB PO SCH (08:51)
[2018-08-03] MEDS: METOPROLOL SUCC 50MG EXT REL TAB PO SCH (08:51)
[2018-08-03] MEDS: INSULIN ASPART 100 UNITS/ML 3 ML PEN SC SCH ×4 (08:57→21:56)
[2018-08-03] MEDS: INSULIN DETEMIR FLEXPEN/FLEX TOUCH 100 UNITS/ML 3ML SQ SCH ×2 (08:58→21:55)
--- NOTE | 2018-08-03 10:25 | Orthopedic Progress Note ---
Date of Service August 03, 2018 Assessment & Plan (1) Post-operative pain: Pain is improved over the past 24 hours. He has been given IV Toradol as needed in addition to his other narcotics as well as 24 hours of Decadron. He has seemed to turn the corner. We will continue with ambulation only. Decadron has been discontinued as of today. We will continue on bowel regimen. Orthopedically stable. No further imaging needed at this point in time. Supervising Physician Co-Signing Physician Notes Dr. Bong Morales Subjective Leandro is doing much better today. He currently rates his pain to be a 2 out of 10. It is mostly now localized to the lower back. He states he has had a small bowel movement but still has some abdominal distention. He is afebrile. H&H are 10.1 and 31.7 respectively. He is up and ambulatory around the room with the assistance of a walker. Physical Exam 2 Vital Signs (Past 24 Hours): Last Vital Signs Temp 37.1 C 08/03/18 07:19 Pulse 74 08/03/18 07:19 Resp 18 08/03/18 07:19 BP 146/82 H 08/03/18 07:19 Pulse Ox 95 08/03/18 07:19 Physical Exam: He sitting in chair eating breakfast. He is in no obvious distress. Alert and oriented x3. Lumbar incision has some modest ecchymosis and edema. No purulent drainage. No erythema. Strength is intact bilateral lower extremities. Calves soft nontender. Constitutional: WD/WN, vitals as above well developed Eyes: normal visual davies by confrontation ENMT: external ear and nose normal, oropharynx normal Neck: normal visual inspection Respiratory: normal respiratory effort Cardiovascular: Extremities: normal capillary refill Gastrointestinal (Abdomen): Inspection/Auscultation: + abdomen distended Musculoskeletal: Extremities: strength 5/5 throughout Skin: no rashes, warm and dry Neurologic: patellar DTR's 2+ bilat, sensation intact CN's II-XI intact bilaterally and deep tendon reflexes 2+ bilaterally Psychiatric: A+Ox3, euthymic affect Eye Contact: good eye contact
[2018-08-03] MEDS: KETOROLAC TROMETHAMINE 15 MG/ML VIAL IV PRN (13:11)
--- NOTE | 2018-08-03 13:17 | Hospitalist Progress Note ---
Date of Service August 03, 2018 Assessment & Plan (1) Post-operative pain: S/p lumbar decompression last week, just discharged on 07/31. - No red flags: no fever/chills or sweats, no loss of sensation or motor function in legs, no bowel or bladder incontinence. Surgical incision without erythema or drainage. - Seen by ortho and started on ketorolac and dexamethasone on 08/02. - On 08/03, pain was improving. Dexamethasone stopped. - Plan for discharge home on 08/04 if pain continues to improve. - PT/OT pending (2) Constipation: Use Miralax PRN, the patient only had one small BM while here last week. Abdomen is distended but there are bowels sounds. - Bowel regimen (3) Chronic systolic heart failure: Patient needed some intermittent Lasix on last admission. Still has some swelling, but mild. No shortness of breath to indicate pulmonary edema. - Continue Toprol - Lasix increased from 20mg PO daily to 40mg PO daily by admitted provider - Monitor volume status - Appears euvolemic on 08/03 (4) Stage III chronic kidney disease: Baseline Cr stable at 0.92. - Monitor Cr while inpatient (5) Acute anemia: Had some blood loss last admission for surgery. Hgb is stable at 9.1 on admission. - Monitor hgb (6) Ischemic cardiomyopathy: Chronic systolic HF. - Continue treatment as above (7) ICD (implantable cardioverter-defibrillator) in place: Inserted in 11/2011 after cardiac arrest after prior C-spine surgery. No discharges. - Monitor (8) Coronary artery disease: H/o 3 vessel CABG in 2001 at [facility] (DELATORRE to distal LAD , FERNANDO to Acute Marginal of RCA, Radial Artery Graft to LCx branch). Had NSTEMI after surgery during prior admission. Underwent cath with distal disease noted. No stent; treated medically. No current chest pain. - Continue aspirin and Plavix, statin therapy (9) Diabetes mellitus, type 2: Continue Levemir. - Sliding scale with Novolog - Diabetic diet (10) DVT prophylaxis: Heparin 5000 units TID Dispo: Likely discharge on 08/04 if pain under control. Subjective 67yo M w/ recent back surgery, re-presented due to worse back pain. Today, his back pain is already down to a 2/10 with our pain meds. Orthopedics added Toradol and dexamethasone. If pain not improved by tomorrow, will consider further imaging. Reports no fevers/chills, chest pain, shortness of breath, abdominal pain, nausea, or vomiting. Physical Exam 2 Vital Signs (Past 24 Hours): Last Vital Signs Temp 37.1 C 08/03/18 07:19 Pulse 74 08/03/18 07:19 Resp 18 08/03/18 07:19 BP 146/82 H 08/03/18 07:19 Pulse Ox 95 08/03/18 07:19 Constitutional: WD/WN, vitals as above + obese Eyes: PERRL, conjunctivae normal, anicteric sclerae ENMT: external ear and nose normal, oropharynx normal Neck: trachea midline, no thyromegaly Respiratory: normal respiratory effort, lungs clear to auscultation Cardiovascular: Rate/Rhythm: regular rate and regular rhythm Heart Sounds: normal S1 and normal S2; no murmur Vessels: no JVD Extremities: + edema ( bilaterally to the knees) Gastrointestinal (Abdomen): normal bowel sounds, soft, nontender, no hepatosplenomegaly Inspection/Auscultation: + abdomen distended Musculoskeletal: Head/Neck/Chest: normocephalic and head atraumatic Spine: + limited cervical ROM (prior surgery) and + limited thoraco-lumbar ROM (due to severe pain, dressing intact) Extremities: extremities normal to inspection and + limited ROM of extremities (cannot raise legs off of beed due to severe low back pain); normal muscle tone, no cyanosis and no clubbing Skin: no rashes, warm and dry Neurologic: patellar DTR's 2+ bilat, sensation intact and PERRL, EOMI, accommodation nl, no face palsy, no dysarthria moves all extremities Psychiatric: A+Ox3, euthymic affect Lymphatic: no cervical or axillary lymphadenopathy
[2018-08-03] MEDS: ACETAMINOPHEN 325 MG TAB PO PRN (18:43)
[2018-08-03] MEDS: GLUCOSE 40% GEL 15 GM TUBE PO PRN ×2 (20:50→21:15)
[2018-08-03] MEDS: ATORVASTATIN 40 MG TAB PO SCH (22:15)
[2018-08-04] MEDS: KETOROLAC TROMETHAMINE 15 MG/ML VIAL IV PRN ×4 (01:47→23:31)
[2018-08-04] MEDS: HEPARIN SOD 5,000 UNIT/0.5 ML VIAL SQ SCH ×2 (05:51→14:22)
[2018-08-04] MEDS: ACETAMINOPHEN 325 MG TAB PO PRN (06:33)
[2018-08-04] MEDS: INSULIN ASPART 100 UNITS/ML 3 ML PEN SC SCH ×4 (09:09→20:52)
[2018-08-04] MEDS: DOCUSATE SODIUM/SENNA 50/8.6MG TAB PO SCH ×2 (09:11→20:54)
[2018-08-04] MEDS: FUROSEMIDE 40 MG TAB PO SCH (09:11)
[2018-08-04] MEDS: VITAMIN B COMPLEX TAB PO SCH (09:11)
[2018-08-04] MEDS: CYANOCOBALAMIN 500 MCG TABLET (VITAMIN B-12) PO SCH (09:11)
[2018-08-04] MEDS: CHOLECALCIFEROL 1,000 UNITS TAB PO SCH (09:11)
[2018-08-04] MEDS: OMEGA-3 (PURIFIED FISH OIL) 1 GM CAP PO SCH (09:12)
[2018-08-04] MEDS: MAGNESIUM OXIDE 400 MG TAB PO SCH (09:12)
[2018-08-04] MEDS: FINASTERIDE 5 MG TAB PO SCH (09:12)
[2018-08-04] MEDS: METOPROLOL SUCC 50MG EXT REL TAB PO SCH (09:12)
[2018-08-04] MEDS: LOSARTAN POTASSIUM 50 MG TAB PO SCH (09:15)
[2018-08-04] MEDS: INSULIN DETEMIR FLEXPEN/FLEX TOUCH 100 UNITS/ML 3ML SQ SCH ×2 (09:15→21:34)
--- NOTE | 2018-08-04 09:19 | Cardiology Consultation ---
Date of Consultation August 04, 2018 Assessment & Plan (1) Chest pain: His description of chest discomfort is hard to evaluate. It could be referred pain from his recent surgery, he also seems to have shoulder discomfort perhaps from an activity and he may also have some chest discomfort related to coronary artery disease. Simply based on symptoms I am reluctant to consider catheterization or intervention, I would like to see more objective findings. (2) CAD (coronary artery disease): He has known severe coronary artery disease, however the relationship to his current symptoms is not clear. With his enzyme level dropping since his last admission in a matter which would be consistent with evolution of his prior myocardial infarction I would not be inclined to perform catheterization less the level rises again. That would be indicative of recurrent ischemia. I would therefore recommend continuing monitoring of enzymes (3) Ischemic cardiomyopathy: He has a long-standing ischemic cardiomyopathy, his ejection fraction was worse historically and then improved. We were forced to decrease his heart failure medications due to hypotension in the past but his recent ejection fraction had been good. He does not seem to have a lot of heart failure although he has a little bit of edema and did have it postoperatively. It might be prudent to reevaluate his LV function with a limited echo. (4) Hypotension: He has an element of hypotension currently, I suspect this is medication related as he was on fairly high doses of medications and had hypotension before on these medications. I am hesitant to discontinue his medications altogether recommend cutting the current doses in half to see if that helps with his blood pressure and still may help with his coronary disease and cardiomyopathy. History of Present Illness Reason for Consultation: Chest discomfort, hypotension Attending Physician: Juan Manning History of Present Illness This is a very pleasant 67-year-old gentleman with a history of coronary artery disease which includes three-vessel coronary artery bypass graft surgery in 2001 at [facility]. 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 Hollins. He had postoperative respiratory failure requiring tracheostomy and subsequently had cardiac arrest requiring one shock for ventricular fibrillation. Cardiac catheterization showed no functioning bypass graft to the marginal, the FERNANDO and DELATORRE were patent, he had severe [place] three-vessel CAD and a LVEF of 31%. He therefore had an ICD implanted on November 13, 2011 for secondary prevention of sudden cardiac . A subsequent echocardiogram in the fall showed low normal left ventricular function. He had been on high doses of beta blockade , but had lightheadedness and low blood pressure and his beta angy was decreased in the fall of 2011. By stress echo in May 2015 his left ventricular function was felt to be normal. Echocardiography November 12, 2017 showed low normal left ventricular systolic function with mild left ventricular hypertrophy. He did have a dobutamine stress echo done on July 02, 2018 where he reached 94% of his maximal predicted heart rate without ischemic changes and his echo images did not show ischemia. He underwent lumbar spine surgery on July 28, 2018, postoperatively he had chest discomfort and elevated cardiac enzymes and therefore underwent cardiac catheterization on July 27, 2018 where he was found to have severe [place] coronary artery disease with a subtotal occlusion of the proximal ramus which was felt to be the culprit vessel. He had an occluded LAD but a patent DELATORRE to the LAD. The FERNANDO to a small diffusely diseased marginal was patent. It was felt best to treat him medically and to consider PCI of his RCA if further symptoms occurred. Ultimately he was discharged on July 31, 2018 however was readmitted on August 01, 2018 when he presented with recurrent back and chest pain. He has also been somewhat hypotensive since admission, although his medications were increased his last mission. At the time of my evaluation this morning he has a difficult time describing his symptoms. He primarily describes back pain but he also describes some anterior pain but then moves his shoulders around suggesting it may be shoulder discomfort as well. Cannot really localize it very well. He is also having some nausea but no vomiting, he is diaphoretic. In general he does not feel well. Allergies Allergy/AdvReac Type Severity Reaction Status Date / Time No Known Allergies Allergy Verified 08/01/18 15:19 Home Medications Home Medications Medication Instructions Recorded Confirmed Type magnesium oxide 400 mg PO QAM #0 tab 11/27/11 08/01/18 History losartan 50 mg PO QAM #0 tab 05/26/12 08/01/18 History omega [id number] oil [Fish Oil] 1 cap PO QAM #0 cap 05/26/12 08/01/18 History insulin detemir U-100 45 unit SUBCUT BID #0 //08/01/18 History aspirin 325 mg PO QAM #0 tab 11/12/14 08/01/18 History atorvastatin 40 mg PO HS #0 tab 11/12/14 08/01/18 History coenzyme Q10 100 mg PO QAM #0 11/12/14 08/01/18 History finasteride [Proscar] 5 mg PO QAM #0 11/12/14 08/01/18 History furosemide [Lasix] 20 mg PO QAM #0 tab 11/12/14 08/01/18 History cholecalciferol (vitamin D3) 1,000 unit PO QAM #0 07/04/15 08/01/18 History insulin aspart U-100 10 - 50 unit SC TIDM #0 03/07/16 08/01/18 History metoprolol succinate [Toprol XL] 100 mg PO QAM #0 03/07/16 08/01/18 History metformin 1,000 mg PO BID 05/16/18 08/01/18 History cyanocobalamin (vitamin B-12) 1,000 mcg PO QAM 05/21/18 08/01/18 History [Vitamin B-12] vitamin B complex 1 tab PO QAM 07/22/18 08/01/18 History oxycodone 5 mg PO Q4H PRN #30 tab 07/31/18 08/01/18 Rx tramadol 50 mg PO Q4H PRN #30 tab 07/31/18 08/01/18 Rx Patient History Medical History Difficult airway for 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 Admitted [facility] 10/18/11 for onset of incapacitating cervical myelopathy. Spinal tap showed INSURANCE CHECKER Lyme disease, MRI showed severe spinal cord compression at C3-4 with myelomalacia and intramedullary mass. Pt had c-spine surgery, subsequent prolonged hospital admission, complicated post-op course. Difficult intubation Sudden cardiac Post-op 2011 [facility]. Now has ICD. Sleep apnea PT NOT CURRENTLY CPAP 2/2 recurrent sinus infections. WILL SEE SLEEP MEDICINE/ DR. ARCHULETA LATE 2017 Diabetes mellitus, type 2 IDDM. Degenerative disc disease Chronic back pain CHRONIC PAIN IN LEFT LEG Ischemic cardiomyopathy EF WNL 11/2017 CAD (coronary artery disease) s/p triple CABG 2002 Full dentures (Acute) Obese (Acute) Heart disease (Acute) HTN (hypertension) (Acute) High cholesterol (Acute) Surgical History History of esophagogastroduodenoscopy (EGD) History of colonoscopy History of cardiac cath 2011 AT [facility] - UNSURE IF HE HAS STENTS. History of tracheostomy Hx of transurethral resection of prostate History of cataract extraction with lens replacement Hx of tonsillectomy (Acute) H/O cervical spine surgery (Acute) ACDI C3-4, C7 corpectomy, removal of C7 intramedullary mass. History of lumbar spinal fusion (Acute) S/P triple vessel bypass (Acute) [facility] Family History Other No pertinent family history Social History marital status: Current Living Situation: Spouse Other Information That Helps Us Care for You: No Feels Safe at Home: Yes Safety Concerns: Feels Safe At This Time Smoking Status: Never smoker Do You Dip or Chew Tobacco: Yes Second Hand Exposure: No Hx Alcohol Use: No Hx Substance Use: No Beliefs That Will Affect Care: None Communication Ability: Effective Review of Systems Negative for lightheadedness, dizziness, palpitations, presyncope or syncope. No shortness of breath, chest discomfort as noted. No orthopnea or PND, mild postoperative peripheral edema. Some nausea, no vomiting, no bleeding. No neurologic complaints such as TIA or stroke symptoms. Other systems negative. Physical Exam 2 Vital Signs (Past 24 Hours): Last Vital Signs Temp 36.8 C 08/04/18 07:52 Pulse 95 H 08/04/18 07:52 Resp 22 08/04/18 07:52 BP 85/47 L 08/04/18 07:52 Pulse Ox 96 08/04/18 07:52 Physical Exam: Constitutional: Alert, cooperative and in no distress. HEENT: Unremarkable Neck: No jugular venous distention, carotid pulses are normal and equal bilaterally without bruits. Pulmonary: Bilaterally decreased breath sounds on auscultation bilaterally. Cardiac: Regular rhythm with no murmur, gallop or rub. Abdomen: Soft, nontender with normal bowel sounds. Extremities: +1 bilateral pretibial edema. Distal pulses intact. Neurologic: No focal findings. Gait was not tested. Skin: No rash, ecchymoses or petechiae. Results & Data Diagnostic Findings Electrocardiogram: An ECG this morning shows sinus rhythm with a right bundle branch block and anterolateral ST depression. The anterior ST depression can be due to the right bundle and is similar to prior, the lateral ST depression appears more pronounced than his most recent electrocardiogram but is similar to what was observed at the time of his catheterization last admission.
[2018-08-04] MEDS: ASPIRIN 81 MG ECTAB PO SCH (09:29)
[2018-08-04] MEDS: CLOPIDOGREL BISULFATE 75 MG TAB PO SCH (09:29)
[2018-08-04] MEDS ORDERED: METOPROLOL SUCC 50MG EXT REL TAB PO STA (09:35)
[2018-08-04] MEDS ORDERED: LOSARTAN POTASSIUM 25 MG TAB PO ONE (09:36)
--- NOTE | 2018-08-04 09:52 | Hospitalist Progress Note ---
Date of Service August 04, 2018 Assessment & Plan (1) Post-operative pain: S/p lumbar decompression last week, just discharged on 07/31. - No red flags: no fever/chills or sweats, no loss of sensation or motor function in legs, no bowel or bladder incontinence. Surgical incision without erythema or drainage. - Seen by ortho and started on ketorolac and dexamethasone on 08/02. - On 08/03, pain was improving. Dexamethasone stopped. - Plan for discharge home on 08/04 if pain continues to improve. - PT/OT pending (2) Constipation: Use Miralax PRN, the patient only had one small BM while here last week. Abdomen is distended but there are bowels sounds. - Bowel regimen (3) Chronic systolic heart failure: Patient needed some intermittent Lasix on last admission. Still has some swelling, but mild. No shortness of breath to indicate pulmonary edema. - Continue Toprol - Lasix increased from 20mg PO daily to 40mg PO daily by admitted provider - Monitor volume status - Appears euvolemic on 08/03 (4) Stage III chronic kidney disease: Baseline Cr stable at 0.92. - Monitor Cr while inpatient (5) Acute anemia: Had some blood loss last admission for surgery. Hgb is stable at 9.1 on admission. - Monitor hgb (6) Ischemic cardiomyopathy: Chronic systolic HF. - Continue treatment as above (7) ICD (implantable cardioverter-defibrillator) in place: Inserted in 11/2011 after cardiac arrest after prior C-spine surgery. No discharges. - Monitor (8) Coronary artery disease: H/o 3 vessel CABG in 2001 at [facility] (DELATORRE to distal LAD , FERNANDO to Acute Marginal of RCA, Radial Artery Graft to LCx branch). Had NSTEMI after surgery during prior admission. Underwent cath with distal disease noted. No stent; treated medically. No current chest pain. - Continue aspirin and Plavix, statin therapy (9) Diabetes mellitus, type 2: Continue Levemir. - Sliding scale with Novolog - Diabetic diet (10) Chest pain: PATIENT IS COMPLAINING OF CHEST PAIN. Patient once I arrived in the room reports feeling better. He states the back pain was associated with his chest pain. Once back pain subsides his chest pain does as well. Will transfer patient to tele. Will obtain serial trop and echo. discussed with cardio. Due to hypotension: will cut back his blood pressure medicine to half (after discussing case with cardiology) Update: 16:00 Patient had elevated trop. Initial was 2 and went up to 10. D/w cardio, gave metoprolol. (11) Hypotension: monitor closely his BP. (12) NSTEMI (non-ST elevated myocardial infarction): Update 16:00 Trop is elevated. Likely NSTEMI. will place on IV heparin. Cardio has been consulted. (13) DVT prophylaxis: Heparin 5000 units TID Spent 65 minutes in management of patient 8:00 to 8:45 16:00 to 16:10 18:55: to 19:05 Subjective 67yo M w/ recent back surgery, re-presented due to worse back pain. I was called this morning due to patient having chest pain. He appeared anxious and diaphoretic. When I walked in the room patient appears calm and comfortable. EKG was reviewed and case discussed with cardiology. Patient will be transferred to Telemetry. Constitutional: + fatigue and + weakness; no fever, no chills, no sweats, no body aches and no anorexia Respiratory: + dyspnea on exertion; no dyspnea, no pain on inspiration and no wheezing Musculoskeletal: + back pain (severe, 9 out of 10) Neurologic: + tremor(s) Physical Exam 2 Vital Signs (Past 24 Hours): Last Vital Signs Temp 36.8 C 08/04/18 07:52 Pulse 95 H 08/04/18 07:52 Resp 22 08/04/18 07:52 BP 85/47 L 08/04/18 07:52 Pulse Ox 96 08/04/18 07:52 Physical Exam: Constitutional: WD/WN, vitals as above + obese Eyes: PERRL, conjunctivae normal, anicteric sclerae ENMT: external ear and nose normal, oropharynx normal Neck: trachea midline, no thyromegaly Respiratory: normal respiratory effort, lungs clear to auscultation Cardiovascular: Rate/Rhythm: regular rate and regular rhythm Heart Sounds: normal S1 and normal S2; no murmur Vessels: no JVD Extremities: + edema ( bilaterally to the knees) Gastrointestinal (Abdomen): normal bowel sounds, soft, nontender, no hepatosplenomegaly Inspection/Auscultation: + abdomen distended Musculoskeletal: Head/Neck/Chest: normocephalic and head atraumatic Spine: + limited cervical ROM (prior surgery) and + limited thoraco-lumbar ROM (due to severe pain, dressing intact) Extremities: extremities normal to inspection and + limited ROM of extremities (cannot raise legs off of beed due to severe low back pain); normal muscle tone, no cyanosis and no clubbing Skin: no rashes, warm and dry Neurologic: patellar DTR's 2+ bilat, sensation intact and PERRL, EOMI, accommodation nl, no face palsy, no dysarthria moves all extremities Psychiatric: A+Ox3, euthymic affect Lymphatic: no cervical or axillary lymphadenopathy
[2018-08-04] MEDS ORDERED: PERFLUTREN LIPID MICROSPHERE (DEFINITY) IV ONE (10:04)
[2018-08-04] MEDS: OXYCODONE HCL IR 5 MG TAB (IMMEDIATE RELEASE) PO PRN ×3 (11:25→20:56)
[2018-08-04] MEDS ORDERED: Heparin IV Standard *NO* Bolus IV ONE (18:15)
[2018-08-04] MEDS ORDERED: METOPROLOL SUCC 25MG EXT REL TAB PO ONE (18:15)
[2018-08-04] MEDS: HEPARIN STANDARD DEXTROSE 25,000 UNITS/500 ML IV SCH (18:45)
[2018-08-04] MEDS: ATORVASTATIN 40 MG TAB PO SCH (20:53)
[2018-08-04] MEDS ORDERED: Nursing to Pharmacy Communication ONE (21:21)
[2018-08-05] MEDS: ACETAMINOPHEN 325 MG TAB PO PRN ×2 (00:30→20:17)
[2018-08-05] MEDS: OXYCODONE HCL IR 5 MG TAB (IMMEDIATE RELEASE) PO PRN ×4 (00:57→23:13)
[2018-08-05] MEDS ORDERED: PIPERACILL/TAZOBAC CONSULT ACTIVE PRN ×2 (01:00→13:39)
[2018-08-05] MEDS ORDERED: VANCOMYCIN CONSULT ACTIVE PRN (01:00)
[2018-08-05 01:21] LABS: Partial Thromboplastin Ratio > 5.1
[2018-08-05 01:24] LABS: Partial Thromboplastin Time > 139.0 Seconds (21.0-31.0)
[2018-08-05] MEDS ORDERED: VANCOMYCIN HCL 2,500 MG in SODIUM CHLORIDE 0.9% 500 ML IV ONE (01:30)
[2018-08-05] MEDS ORDERED: PIPERACILLIN/TAZOBACTAM 4.5 GM in DEXTROSE 5% 100 ML IV ONE (01:30)
[2018-08-05] MEDS ORDERED: OPTIRAY 320 125ml IV PRN (02:43)
[2018-08-05 02:50] LABS: Partial Thromboplastin Ratio > 5.1
[2018-08-05 02:53] LABS: Partial Thromboplastin Time > 139.0 Seconds (21.0-31.0)
[2018-08-05 03:44] LABS: Partial Thromboplastin Ratio 3.1
[2018-08-05 03:53] LABS: Partial Thromboplastin Time 85.2 Seconds (21.0-31.0)
[2018-08-05 06:37] LABS: Hematocrit (blood only) 28.8 % (42-52); Hemoglobin 9.3 g/dL (14.0-18.0); Mean Corpuscular Hgb Conc 32.3 g/dL (32-36); Mean Corpuscular Volume 92.9 fL (80-100); Mean Platelet Volume 9.5 fL (7.4-10.4); Platelet Count 184 K/uL (130-400); RDW Coefficient of Variation 15.2 % (11.5-14.5); RDW Standard Deviation 51.4 fL (36.4-46.3); White Blood Count 10.58 K/uL (4.8-10.8)
[2018-08-05 06:49] LABS: Appearance Urine Clear (Clear); Bilirubin Urine Negative (Negative); Blood Urine Negative (Negative); Color Urine Dark Yellow; Glucose Urine UA Negative (Negative); Ketones Urine Negative (Negative); Leukocyte Esterase Urine Negative (Negative); Nitrite Urine Negative (Negative); Protein Urine Negative (Negative); Specific Gravity Urine > 1.045 (1.000-1.030); Urobilinogen Urine Negative (Negative)
[2018-08-05 07:16] LABS: Creatinine Clr Calc Pharmacy 51.7 ml/min; Est GFR (African American) 46.7; Est GFR (Non-African American) 40.3
--- NOTE | 2018-08-05 07:43 | CT Scan Report ---
CT angio chest dissec wo/w con CLINICAL HISTORY: 67 years-old Male presenting with MN ^elevated trop, diaphoretic, back pain. TECHNIQUE: Multidetector CT angiography of the chest was performed before and after the administratio n of intravenous contrast. 3-D volumetric and/or maximum intensity projection (MIP) images were subse quently reconstructed for review. IV contrast: 119 mL of Optiray 320. One or more dose lowering techn iques were used consistent with the principles of ALARA (as low as reasonably achievable), including automatic exposure control, mA or kV adjustment to individual patient size, and/or use of iterative r econstruction. COMPARISON: None. CT DOSE (mGy.cm): The estimated cumulative dose is 1561.79 mGy.cm. 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 Median sternotomy wires. Anterior cervical fusion hardware. Cardiomegaly. Vasculature: The study is adequate for assessment of the aorta. Precontrast imaging demonstrates no evidence of in tramural hematoma. Atherosclerosis of the aorta. Postcontrast imaging demonstrates no evidence of dis section, penetrating ulcer, or aneurysm. Replaced right hepatic artery arising from the superior mese nteric artery. The splenic artery has a direct aortic origin. Allowing for timing of the contrast johnny us, no gross evidence of a filling defect within the pulmonary arteries to suggest embolus. Main pulm onary artery is not enlarged. No flattening of the interventricular septum. No intracardiac filling d efect. No reflux of contrast into the hepatic veins. Remaining chest: Soft tissues: Normal thyroid and thoracic inlet. Gynecomastia. Mildly prominent subcentimeter precari nal lymph nodes. No axillary, supraclavicular, or hilar lymphadenopathy. Mild multichamber enlargemen t of the heart. Coronary artery calcification. Moderate right and small left pleural effusions, which are simple appearing. Hepatic steatosis. Lungs and airways: No pneumothorax. Allowing for the expiratory phase of respiration, trace endotrach eal debris is difficult to exclude. Remaining central airways patent. Diffuse bronchial wall thickeni ng. Diffuse added density of the lungs with patchy groundglass density with a basilar predominance. M ild smooth interlobular septal thickening. Bandlike and nodular opacities at the anterior basal right lower lobe likely atelectasis or scarring. Passive atelectasis secondary to the pleural effusions al so noted bilaterally greater on the right. Pulmonary arteries are enlarged relative to adjacent bronc hi. Musculoskeletal: Degenerative changes of the spine. Anterior cervical fusion hardware. This bridges t he cervicothoracic junction. IMPRESSION: 1. No evidence of acute aortic injury. 2. Mild cardiomegaly with evidence of volume overload/congestive change and suspected developing pul monary edema. 3. Bibasilar atelectasis in the setting of moderate right and small left pleural effusions. 4. Hepatic steatosis. Electronically signed by: Benson Junior M.D. 08/05/2018 7:42 AM
--- NOTE | 2018-08-05 07:45 | XRay Report ---
XR chest 1V portable CLINICAL HISTORY: 67 years-old Male presenting with fever, AMS. TECHNIQUE: Portable upright AP view of the chest was obtained. COMPARISON: 07/26/2018. FINDINGS: Left subclavian implanted cardiac defibrillator with lead to the right ventricular apex. Numerous ext ernal leads overlie the mediastinum degrading image quality. Median sternotomy wires. Anterior cervic al fusion hardware at the cervicothoracic junction. Atherosclerosis of the aortic arch. Cardiac silhouette moderately enlarged. Pulmonary basilar promine nce and bronchial wall cuffing. Small right and trace left pleural effusions. Added density of the davon ngs suggested centrally and at the lung bases. A prominent pericardial fat pad is present at the righ t cardiophrenic angle. Degenerative changes of the thoracic spine. Upper abdomen normal. IMPRESSION: 1. Cardiomegaly with volume overload/congestive change. Developing pulmonary edema not excluded. 2. Bilateral pleural effusions greater on the right. Electronically signed by: Benson Junior M.D. 08/05/2018 7:44 AM
[2018-08-05] MEDS ORDERED: PIPERACILLIN/TAZOBACTAM 4.5 GM in DEXTROSE 5% 100 ML IV SCH (08:00)
[2018-08-05] MEDS: INSULIN ASPART 100 UNITS/ML 3 ML PEN SC SCH ×4 (08:40→21:13)
[2018-08-05] MEDS: DOCUSATE SODIUM/SENNA 50/8.6MG TAB PO SCH ×2 (08:41→20:18)
[2018-08-05] MEDS: FINASTERIDE 5 MG TAB PO SCH (08:41)
[2018-08-05] MEDS: OMEGA-3 (PURIFIED FISH OIL) 1 GM CAP PO SCH (08:41)
[2018-08-05] MEDS: ASPIRIN 81 MG ECTAB PO SCH (08:42)
[2018-08-05] MEDS: CYANOCOBALAMIN 500 MCG TABLET (VITAMIN B-12) PO SCH (08:42)
[2018-08-05] MEDS: MAGNESIUM OXIDE 400 MG TAB PO SCH (08:42)
[2018-08-05] MEDS: VITAMIN B COMPLEX TAB PO SCH (08:42)
[2018-08-05] MEDS: CLOPIDOGREL BISULFATE 75 MG TAB PO SCH (08:43)
[2018-08-05] MEDS: CHOLECALCIFEROL 1,000 UNITS TAB PO SCH (08:43)
[2018-08-05] MEDS ORDERED: METOPROLOL SUCC 50MG EXT REL TAB PO STA (09:00)
--- NOTE | 2018-08-05 09:20 | Cardiology Progress Note ---
Date of Service August 05, 2018 Assessment & Plan (1) Chest pain: His description of chest discomfort is hard to evaluate. It could be referred pain from his recent surgery, he also seems to have shoulder discomfort perhaps from an activity and he likely also has some chest discomfort related to coronary artery disease. Simply based on symptoms I am reluctant to consider catheterization or intervention, however given his elevated enzymes, possible decrease in left ventricular function and electrocardiogram we need to consider it. (2) CAD (coronary artery disease): He has known severe coronary artery disease, however the relationship to his current symptoms is not clear. With his enzyme level now rising again after being low yesterday we need to consider recurrent ischemia. I discussed options with him, he does not seem to understand very well and wants to talk to his about possible intervention. Tentatively we will plan on this tomorrow. (3) Ischemic cardiomyopathy: He has a long-standing ischemic cardiomyopathy, his ejection fraction was worse historically and then improved. We were forced to decrease his heart failure medications due to hypotension in the past but his recent ejection fraction had been relatively good, however now may have dropped slightly. He does not seem to have a lot of heart failure although he has a little bit of edema and did have it postoperatively. Over the long run we will have to have him on KACEY/ARB therapy and beta-blockade, for the moment I would hold his ARB and continue beta-blockade. (4) Hypotension: He has an element of hypotension this admission, I suspect this is medication related as he was on fairly high doses of medications and had hypotension before on these medications. I am hesitant to discontinue his medications altogether and he should have beta-blockade for his ischemia as well as his cardiomyopathy. I would recommend holding the ARB and continue the beta-angy for now. Subjective He is laying supine in bed and appears to be a little bit confused this morning. He has continued to have chest discomfort since yesterday, it remains difficult to determine whether this is anginal or not. This morning he appears to be pain-free. Physical Exam 2 Vital Signs (Past 24 Hours): Last Vital Signs Temp 36.9 C 08/05/18 07:05 Pulse 70 08/05/18 07:05 Resp 16 08/05/18 07:05 BP 98/59 L 08/05/18 07:05 Pulse Ox 99 08/05/18 07:05 Physical Exam: Constitutional: Alert, cooperative and in no distress. Pulmonary: Clear to auscultation bilaterally. Cardiac: Regular rhythm with no murmur, gallop or rub. Abdomen: Soft, nontender with normal bowel sounds. Extremities: +1 bilateral pretibial edema. Skin: No rash, ecchymoses or petechiae. Results & Data Diagnostic Findings Telemetry: Sinus rhythm, no significant arrhythmia ECG: Sinus rhythm, right bundle branch block, anterolateral ST depression continues.
[2018-08-05] MEDS: INSULIN DETEMIR FLEXPEN/FLEX TOUCH 100 UNITS/ML 3ML SQ SCH ×2 (09:36→21:12)
[2018-08-05] MEDS ORDERED: INSULIN DETEMIR FLEXPEN/FLEX TOUCH 100 UNITS/ML 3ML SC ONE (09:45)
[2018-08-05] MEDS: FUROSEMIDE 40 MG TAB PO SCH (10:01)
[2018-08-05 10:21] LABS: Eosinophils # (auto) 0.03 K/uL (0-0.5); Eosinophils % (auto) 0.3 %; Immature Granulocytes # (auto) 0.09 K/uL (0.00-0.02); Immature Granulocytes % (auto) 0.9 %; Lymphocytes # (auto) 0.46 K/uL (1.2-3.4); Lymphocytes % (auto) 4.4 %; Monocytes # (auto) 0.51 K/uL (0.11-0.59); Monocytes % (auto) 4.9 %; Neutrophils # (auto) 9.41 K/uL (1.4-6.5); Neutrophils % (auto) 89.5 %
[2018-08-05 10:49] LABS: C Reactive Protein 15.2 mg/dl (0-0.29); Troponin I 7.05 ng/ml (0-0.045)
[2018-08-05 10:53] LABS: Partial Thromboplastin Ratio 4.9
[2018-08-05 11:00] LABS: Partial Thromboplastin Time 132.8 Seconds (21.0-31.0)
[2018-08-05] MEDS: D5W AND 1/2NSS 1,000 ML IV SCH (11:18)
[2018-08-05 12:33] LABS: Partial Thromboplastin Ratio 2.9
[2018-08-05 12:42] LABS: Partial Thromboplastin Time 79.5 Seconds (21.0-31.0)
[2018-08-05] MEDS ORDERED: PIPERACILLIN/TAZOBACTAM 3.375 GM in DEXTROSE 5% 100 ML IV SCH (13:45)
[2018-08-05] MEDS ORDERED: VANCOMYCIN HCL 1,750 MG in SODIUM CHLORIDE 0.9% 500 ML IV SCH (14:00)
[2018-08-05] MEDS: HEPARIN STANDARD DEXTROSE 25,000 UNITS/500 ML IV SCH (14:09)
[2018-08-05] MEDS ORDERED: CEFEPIME 2,000 MG in SYRINGE 7.5 ML IV ONE (15:00)
--- NOTE | 2018-08-05 15:11 | Infectious Disease Consult ---
Date of Consultation August 05, 2018 Assessment & Plan (1) Gram negative sepsis: continue IV abx, broad spectrum gram negative coverage, will repeat blood cultures x 2. consider ct/mri spinal r/o post op collection, etc. UA negative but no micro analysis done, will repeat. will follow. History of Present Illness Attending Physician: Juan Tinajero Nigel pt admitted from rehab for increased back pain. pt has had complicated recent hosptial stay 07/25- 07/31. Initially admitted for increased low back pain, underwent spinal fusion on 07/25 - had post op chest pain, found to have NSTEMI on 07/26, underwent cath on 07/27 - severe CAD. Has AICD from sudden cardiac in 2011. Trop increased, up to 22 on 07/27. Was followed by cardiology and was d/c to rehab on 07/31. on 08/01 had increased pain and was re admitted. Given increased pain meds and steroids. Fever noted on 08/04 of 39.1, tmax today 38. Blood cultures done at 12 am 08/05 due to fever and are already growing GNR in 07/12 sets. on Zosyn, started today. wbc 10.5. procalcitonin 1.1, crp 15. troponin 7. Cardio following, orhto following. on my exam patient is lethargic but arousable and appropriate. Denies f/c, currently afebrile. denies rigors. states back pain persists but is improved. denies abd pain, no n/v/d. no cp, sob , cough, rodriguez. no gu symptoms. CTA done in ER, negative for PE, no infiltrate, pulm edema noted. 08/04 echo - LVF severely reduced, no veg noted. no barrera. tolerating abx. Allergies Allergy/AdvReac Type Severity Reaction Status Date / Time No Known Allergies Allergy Verified 08/01/18 15:19 Home Medications Home Medications Medication Instructions Recorded Confirmed Type magnesium oxide 400 mg PO QAM #0 tab 11/27/11 08/01/18 History losartan 50 mg PO QAM #0 tab 05/26/12 08/01/18 History omega 2-fwp-dlw-fish oil [Fish Oil] 1 cap PO QAM #0 cap 05/26/12 08/01/18 History insulin detemir U-100 45 unit SUBCUT BID #0 12/10/13 08/01/18 History aspirin 325 mg PO QAM #0 tab 11/12/14 08/01/18 History atorvastatin 40 mg PO HS #0 tab 11/12/14 08/01/18 History coenzyme Q10 100 mg PO QAM #0 11/12/14 08/01/18 History finasteride [Proscar] 5 mg PO QAM #0 11/12/14 08/01/18 History furosemide [Lasix] 20 mg PO QAM #0 tab 11/12/14 08/01/18 History cholecalciferol (vitamin D3) 1,000 unit PO QAM #0 07/04/15 08/01/18 History insulin aspart U-100 10 - 50 unit SC TIDM #0 03/07/16 08/01/18 History metoprolol succinate [Toprol XL] 100 mg PO QAM #0 03/07/16 08/01/18 History metformin 1,000 mg PO BID 05/16/18 08/01/18 History cyanocobalamin (vitamin B-12) 1,000 mcg PO QAM 05/21/18 08/01/18 History [Vitamin B-12] vitamin B complex 1 tab PO QAM 07/22/18 08/01/18 History oxycodone 5 mg PO Q4H PRN #30 tab 07/31/18 08/01/18 Rx tramadol 50 mg PO Q4H PRN #30 tab 07/31/18 08/01/18 Rx Patient History Medical History Difficult airway for intubation [employer] 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 Admitted [facility] 10/18/11 for onset of incapacitating cervical myelopathy. Spinal tap showed [employer] Lyme disease, MRI showed severe spinal cord compression at C3-4 with myelomalacia and intramedullary mass. Pt had c-spine surgery, subsequent prolonged hospital admission, complicated post-op course. Difficult intubation Sudden cardiac Post-op 2011 [facility]. Now has ICD. Sleep apnea PT NOT CURRENTLY CPAP 2/2 recurrent sinus infections. WILL SEE SLEEP MEDICINE/ DR. ARCHULETA LATE 2017 Diabetes mellitus, type 2 IDDM. Degenerative disc disease Chronic back pain CHRONIC PAIN IN LEFT LEG Ischemic cardiomyopathy EF WNL 11/2017 CAD (coronary artery disease) s/p triple CABG 2002 Full dentures (Acute) Obese (Acute) Heart disease (Acute) HTN (hypertension) (Acute) High cholesterol (Acute) Surgical History History of esophagogastroduodenoscopy (EGD) History of colonoscopy History of cardiac cath 2012 AT [facility] - UNSURE IF HE HAS STENTS. History of tracheostomy Hx of transurethral resection of prostate History of cataract extraction with lens replacement Hx of tonsillectomy (Acute) H/O cervical spine surgery (Acute) ACDI C3-4, C7 corpectomy, removal of C7 intramedullary mass. History of lumbar spinal fusion (Acute) S/P triple vessel bypass (Acute) [facility] Family History Other No pertinent family history Social History marital status: Current Living Situation: Spouse Other Information That Helps Us Care for You: No Feels Safe at Home: Yes Safety Concerns: Feels Safe At This Time Smoking Status: Never smoker Do You Dip or Chew Tobacco: Yes Second Hand Exposure: No Hx Alcohol Use: No Hx Substance Use: No Beliefs That Will Affect Care: None Communication Ability: Effective Review of Systems all remaining ros reviewed and are negative Physical Exam 2 Vital Signs (Past 24 Hours): Last Vital Signs Temp 37.6 C H 08/05/18 12:11 Pulse 76 08/05/18 12:11 Resp 18 08/05/18 12:11 BP 99/59 L 08/05/18 12:11 Pulse Ox 93 08/05/18 12:11 Constitutional: + ill appearing and + lethargic; not diaphoretic Eyes: PERRL, conjunctivae normal, anicteric sclerae ENMT: external ear and nose normal, oropharynx normal Neck: normal visual inspection; no nuchal rigidity Respiratory: normal respiratory effort, lungs clear to auscultation Cardiovascular: RRR, no murmur, no edema Gastrointestinal (Abdomen): Inspection/Auscultation: abdomen normal to inspection and + abdomen distended Percussion/Palpation: abdomen nontender, no guarding and abdomen not rigid Musculoskeletal: no cyanosis or clubbing, extremities motor strength 5/5 Skin: no rashes, warm and dry Psychiatric: A+Ox3, euthymic affect Results & Data Laboratory Results Microbiology 08/05/18 00:50 Blood Blood Culture - Preliminary Gram negative bacilli 08/05/18 00:50 Blood Blood Culture - Preliminary Gram negative bacilli
--- NOTE | 2018-08-05 16:58 | CT Scan Report ---
CT OF THE LUMBAR SPINE WITHOUT CONTRAST CLINICAL HISTORY: Abscess. COMPARISON STUDY: CT lumbar myelogram May 16, 2018. TECHNIQUE: Axial images of the lumbar spine were obtained without IV contrast. Sagittal and coronal r econstructions were viewed. Study was performed utilizing automated exposure control for dose reducti on and according to ALARA principles. FINDINGS: For purposes of numbering on this examination, the L5-S1 disc space is assigned to axial im age [id number]. Mild loss of height of the superior endplate of L1 is unchanged since CT of May 16, 2018. This is chronic. There is no acute lumbar spine fracture. The patient is status post interval L 3-L4 discectomy, posterior decompression bilateral pedicle screw fusion. Previous L4-L5 and L5-S1 dis cectomies are noted. The L5 and S1 pedicle screws have been removed since CT of May 16, 2018. The operative bed/central canal is suboptimally assessed by CT. Infiltration and fluid within the operat jeremy bed is noted, expected findings in the early postoperative setting. A fluid collection cannot be excluded on this exam due to CT technique and artifact from the hardware as well as the lack of IV co ntrast. Bilateral pleural effusions are partially imaged. 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 IMPRESSION: 1. Status post interval L3-L4 discectomy, posterior decompression and bilateral pedicle screw fusion and removal of the bilateral L5 and S1 pedicle screws. Nondiagnostic evaluation of the central canal given CT technique and artifact from the hardware. An MRI of the lumbar spine, if no contraindication s, could be obtained if clinically indicated. Fluid and infiltration within the operative bed which a re not unexpected in the early postoperative setting. 2. No acute lumbar spine fracture. Electronically signed by: Chito Durand M.D. 08/05/2018 4:56 PM
[2018-08-05] MEDS ORDERED: Nursing to Pharmacy Communication STA (19:11)
[2018-08-05 19:22] LABS: Partial Thromboplastin Ratio 2.2
[2018-08-05 19:28] LABS: Partial Thromboplastin Time 58.7 Seconds (21.0-31.0)
[2018-08-05] MEDS: HYDROmorphone INJ 1 MG/ML SYRINGE IV PRN (19:59)
[2018-08-05] MEDS: ATORVASTATIN 40 MG TAB PO SCH (20:18)
[2018-08-05] MEDS ORDERED: HYDROmorphone INJ 0.5 MG/0.5 ML SYR IV STA (21:41)
--- NOTE | 2018-08-05 23:45 | Hospitalist Progress Note ---
Date of Service August 05, 2018 Assessment & Plan (1) Gram negative sepsis: Antibiotics were started due to bactermia.. Cultures came back positive for gram negative bacilli. Patient's antibiotic were switched to cefepime for possible bone involvement. Given that patient had surgery in the past. I had a lengthy and separate discussions with the and with the son. The wanted the patient transferred to [facility] for his CAD and possible DC. However, given this bacteremia, it is quite possible that patient may not have had an DC but demand ischemia complicated by his severe CAD and sepsis. I did however call [facility] who did state that they did not believe patient required a transfer and did not accept the patient. I explained this to cardiology and they did not feel it appropiate to move him. Especially given that he is likely septic and will need to be seen by orthopedi cs here. As his recent ortho intervention was likely the cause of his infection. (2) Bacteremia due to Gram-negative bacteria: (3) Post-operative pain: Pain may be from infection. D/W ORHTO, unable to get MRI due to ICD. Will obtain ct scan of lumbar spine. wants to discuss case with Dr. Morales. Patient will be NPO after midnight. (4) Constipation: Use Miralax PRN, the patient only had one small BM while here last week. Abdomen is distended but there are bowels sounds and patient is passing gas. - Bowel regimen (5) Chronic systolic heart failure: Patient needed some intermittent Lasix on last admission. Still has some swelling, but mild. No shortness of breath to indicate pulmonary edema. - Continue Toprol at half a dose. - Lasix increased from 20mg PO daily to 40mg PO daily by admitted provider - Monitor volume status - Appears euvolemic on 08/05 (6) Stage III chronic kidney disease: Baseline Cr stable at 0.92. - Monitor Cr while inpatient (7) Acute anemia: Had some blood loss last admission for surgery. Hgb is stable at 9.1 on admission. - Monitor hgb (8) Ischemic cardiomyopathy: Chronic systolic HF. 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 No d ischarges. - Monitor (10) Coronary artery disease: H/o 3 vessel CABG in 2001 at [facility] (DELATORRE to distal LAD, FERNANDO to Acute Marginal of RCA, Radial Artery Graft to LCx branch). Had NSTEMI after surgery during prior admission. Underwent cath with distal disease noted. No stent; treated medically. No current chest pain. - Continue aspirin and Plavix, statin therapy Possible demand ischemia with sepsis. (11) Diabetes mellitus, type 2: Continue Levemir. - Sliding scale with Novolog - Diabetic diet (12) Hypotension: monitor closely his BP. Improved with antibiotics (13) NSTEMI (non-ST elevated myocardial infarction): Doubt this diagnosis, however will continue heparin at this time. Troponin bump could be from demand ischemia (14) Acute kidney injury: Patient creatinine bumped up. This is likely from the sepsis. (15) DVT prophylaxis: Heparin 5000 units TID Spent 75 minutes in management of patient 11:00 to 11:45 16:00 to 16:30 Subjective 67yo M w/ recent back surgery, re-presented due to worse back pain. Patient reports that he is no longer having chest pain. D/W overnight resident, patient had fever chill overnight. Constitutional: + fatigue and + weakness; no fever, no chills, no sweats, no body aches and no anorexia Respiratory: + dyspnea on exertion; no dyspnea, no pain on inspiration and no wheezing Musculoskeletal: + back pain (severe, 9 out of 10) Neurologic: + tremor(s) Physical Exam Vital Signs (Past 24 Hours): Last Vital Signs Temp 36.9 C 08/05/18 23:00 Pulse 76 08/05/18 23:00 Resp 20 08/05/18 23:00 BP 113/67 08/05/18 23:00 Pulse Ox 92 08/05/18 23:00 Physical Exam: Constitutional: WD/WN, vitals as above + obese Eyes: PERRL, conjunctivae normal, anicteric sclerae ENMT: external ear and nose normal, oropharynx normal Neck: trachea midline, no thyromegaly Respiratory: normal respiratory effort, lungs clear to auscultation Cardiovascular: Rate/Rhythm: regular rate and regular rhythm, normal S1 and normal S2; no murmur Gastrointestinal (Abdomen): normal bowel sounds, soft, nontender, no hepatosplenomegaly Inspection/Auscultation: + abdomen remains distended Spine: + limited cervical ROM (prior surgery) and + limited thoraco-lumbar ROM (due to severe pain, dressing intact) Extremities: extremities normal to inspection and + limited ROM of extremities (cannot raise legs off of bed due to severe low back pain, but able to move them); normal muscle tone, no cyanosis and no clubbing Skin: no rashes, warm and dry Neurologic: patellar DTR's 2+ bilat, sensation intact and PERRL, EOMI, accommodation nl, no face palsy, no dysarthria moves all extremities Psychiatric: A+Ox3, euthymic affect Lymphatic: no cervical or axillary lymphadenopathy
[2018-08-06] MEDS: CEFEPIME 2,000 MG in SYRINGE 7.5 ML IV SCH ×2 (01:15→13:04)
[2018-08-06] MEDS: HYDROmorphone INJ 1 MG/ML SYRINGE IV PRN ×3 (01:20→08:55)
[2018-08-06] MEDS: D5W AND 1/2NSS 1,000 ML IV SCH ×2 (04:51→21:40)
--- NOTE | 2018-08-06 07:30 | XRay Report ---
KUB CLINICAL HISTORY: tender abdo, minimal bowel sounds COMPARISON STUDY: CT of the abdomen and pelvis July 27, 2018. FINDINGS: There is moderate gaseous distention of the transverse colon. There is mild gaseous distent ion of the remainder of the colon. Postoperative findings within the spine are noted. Pacer lead and median sternotomy wires are partially imaged. There is no convincing evidence for a small bowel obstr uction. IMPRESSION: 1. Moderate gaseous distention of the transverse colon and mild gaseous distention of the remainder o f the colon. The findings may reflect an ileus. 2. No convincing evidence for a small bowel obstruction. Electronically signed by: Chito Durand M.D. 08/06/2018 7:29 AM
[2018-08-06 08:13] LABS: Partial Thromboplastin Ratio 2.2
[2018-08-06 08:14] LABS: Est GFR (African American) 60.2; Est GFR (Non-African American) 51.9
[2018-08-06] MEDS: VITAMIN B COMPLEX TAB PO SCH (08:14)
[2018-08-06] MEDS: OMEGA-3 (PURIFIED FISH OIL) 1 GM CAP PO SCH (08:14)
[2018-08-06] MEDS: CHOLECALCIFEROL 1,000 UNITS TAB PO SCH (08:14)
[2018-08-06] MEDS: FINASTERIDE 5 MG TAB PO SCH (08:14)
[2018-08-06] MEDS: ASPIRIN 81 MG ECTAB PO SCH (08:14)
[2018-08-06] MEDS: FUROSEMIDE 40 MG TAB PO SCH (08:14)
[2018-08-06] MEDS: CLOPIDOGREL BISULFATE 75 MG TAB PO SCH (08:15)
[2018-08-06] MEDS: MAGNESIUM OXIDE 400 MG TAB PO SCH (08:15)
[2018-08-06] MEDS: CYANOCOBALAMIN 500 MCG TABLET (VITAMIN B-12) PO SCH (08:15)
[2018-08-06 08:16] LABS: Partial Thromboplastin Time 58.8 Seconds (21.0-31.0)
[2018-08-06] MEDS: DOCUSATE SODIUM/SENNA 50/8.6MG TAB PO SCH ×2 (08:21→21:30)
[2018-08-06] MEDS: INSULIN ASPART 100 UNITS/ML 3 ML PEN SC SCH ×4 (08:47→21:32)
[2018-08-06] MEDS: INSULIN DETEMIR FLEXPEN/FLEX TOUCH 100 UNITS/ML 3ML SQ SCH ×2 (08:54→21:26)
--- NOTE | 2018-08-06 10:42 | Cardiology Progress Note ---
Date of Service August 06, 2018 Assessment & Plan (1) Chest pain: It has been difficult to sort out his chest discomfort but it did correlate with an enzyme rise, although he had other reasons to have the enzyme rise most recently (sepsis and hypotension). He is not having chest discomfort today. At this point I would hold off on invasive evaluation of his chest discomfort. (2) CAD (coronary artery disease): He has known severe coronary artery disease, however the relationship to his current symptoms is not clear. His enzyme level mann again after being low on admission, however he was hypotensive and had positive blood cultures which certainly could create demand ischemia. We had planned intervention this morning but that is on hold, we need to sort out his sepsis and back pain first. His troponin is dropping again and he is not having chest discomfort. For the moment I would watch carefully. (3) Ischemic cardiomyopathy: He has a long-standing ischemic cardiomyopathy, his ejection fraction was worse historically and then improved. We were forced to decrease his heart failure medications due to hypotension in the past but his recent ejection fraction had been relatively good, however now may have dropped slightly. He does not seem to have a lot of heart failure although he has edema and did have it postoperatively, his weight has increased substantially over the last several weeks and we have been hydrating him over the past 24 hours due to an elevated creatinine. At some point will need to diurese. Continue him on the diuretic and stop the hydration. (4) Hypotension: He has an element of hypotension this admission, I suspected it was medication related as he was on fairly high doses of medications and had hypotension before on these medications, however with the finding of positive blood cultures perhaps it was related to sepsis. I am hesitant to discontinue his medications altogether and he should have beta-blockade for his ischemia as well as his cardiomyopathy. I would recommend holding the ARB and continue the beta-angy for now with thoughts to add the ARB back if his blood pressure holds. (5) Acute kidney injury: His creatinine had increased yesterday after being normal before, is better today after hydration. He is probably volume overloaded however based on his weight several weeks ago being substantially lower than it is now and he does have fluid retention (edema). Perhaps his kidney injury was due to sepsis and is improving now. I am going to discontinue his IV fluids and will need to watch his creatinine. Subjective He is sitting on his bed this morning, he seems less confused than he did yes terday but still gets mixed up during conversation. He is complaining of back pain, he is not having chest discomfort. No other complaints. Physical Exam Vital Signs (Past 24 Hours): Last Vital Signs Temp 36.8 C 08/06/18 07:40 Pulse 76 08/06/18 07:43 Resp 18 08/06/18 07:40 BP 117/69 08/06/18 07:40 Pulse Ox 93 08/06/18 07:45 Physical Exam: Constitutional: Alert, cooperative and in no distress. Pulmonary: Clear to auscultation bilaterally. Cardiac: Regular rhythm with no murmur, gallop or rub. Abdomen: Soft, nontender with normal bowel sounds. Extremities: +2 bilateral pretibial edema. Skin: No rash, ecchymoses or petechiae. Results & Data Diagnostic Findings Telemetry: Sinus rhythm, no significant arrhythmia
--- NOTE | 2018-08-06 10:49 | Orthopedic Progress Note ---
Date of Service August 06, 2018 Assessment & Plan (1) Lumbar stenosis with neurogenic claudication: This time we are concerned regarding the etiology of his bacteremia. There is some consideration to an I&D lumbar spine. He appears relatively stable this morning. Clearly with his cardiac history and his current anticoagulation state I would like to avoid any surgical intervention. We will follow him closely. He may ultimately require a lumbar I&D. Present on Admission?: Yes Subjective This time Mr. Cooper states his back pain is well controlled. He has some aching in his legs. He was able to sit up for several minutes earlier today and tolerated this well. Physical Exam Vital Signs (Past 24 Hours): Last Vital Signs Temp 36.8 C 08/06/18 07:40 Pulse 76 08/06/18 07:43 Resp 18 08/06/18 07:40 BP 117/69 08/06/18 07:40 Pulse Ox 93 08/06/18 07:45 Physical Exam: On exam his incision appears clean dry and intact. There is no erythema. He is nontender to palpation of the paige-incisional musculature. He is neurologically intact to testing of the bilateral extremities.
[2018-08-06] MEDS: POLYETHYLENE (MIRALAX) 17 GM PACK PO SCH ×2 (10:53→21:25)
[2018-08-06 11:21] LABS: Hematocrit (blood only) 34.8 % (42-52); Hemoglobin 11.2 g/dL (14.0-18.0); Immature Granulocytes # (auto) 0.01 K/uL (0.00-0.02); Immature Granulocytes % (auto) 0.1 %; Lymphocytes # (auto) 0.29 K/uL (1.2-3.4); Lymphocytes % (auto) 3.9 %; Mean Corpuscular Hgb Conc 32.2 g/dL (32-36); Mean Platelet Volume 10.1 fL (7.4-10.4); Monocytes # (auto) 0.44 K/uL (0.11-0.59); Neutrophils # (auto) 6.61 K/uL (1.4-6.5); Platelet Count 133 K/uL (130-400); RDW Standard Deviation 51.2 fL (36.4-46.3); Red Blood Count 3.74 M/uL (4.7-6.1); White Blood Count 7.35 K/uL (4.8-10.8)
[2018-08-06 11:22] LABS: Base Excess VBG -0.8 mEq/L; HCO3 VBG 24 mmol/L; PCO2 VBG 42 mmHg (38-50); PO2 VBG 30 mmHg; pH VBG 7.38 (7.36-7.41)
[2018-08-06 11:25] LABS: Oxygen Saturation VBG < 60.0 %
[2018-08-06 11:34] LABS: Albumin Level 2.6 gm/dl (3.4-5.0); BUN Creatinine Ratio 35.1 (10-20); Calcium 7.9 mg/dl (8.5-10.1); Creatinine Clr Calc Pharmacy 64.5 ml/min; Est GFR (African American) 60.7; Est GFR (Non-African American) 52.4; Magnesium 2.6 mg/dl (1.8-2.4); Potassium 3.7 mmol/L (3.5-5.1)
[2018-08-06 11:37] LABS: Albumin Globulin Ratio 0.7 (0.9-2); Bilirubin,Total 1.6 mg/dl (0.2-1); Globulin 3.8 gm/dl (2.5-4.0); Phosphorus 3.6 mg/dl (2.5-4.9); Total Protein 6.4 gm/dl (6.4-8.2)
--- NOTE | 2018-08-06 12:19 | Infectious Disease Progress Nt ---
Date of Service August 06, 2018 Assessment & Plan (1) Gram negative sepsis: continue IV abx, broad spectrum gram negative coverage, repeat blood cultures x [address] are [address]/mri spinal r/o post op collection, etc. UA negative. ortho following, high risk for surgery but no other definite source for infection identified. will follow. discussed with primary service. Subjective Patient seen in follow-up examination. His is at the bedside. He is also accompanied by occupational health nursing director. He was standing up at his bedside using the assistance of a walker prior to my exam. He is having significant back pain. He is a 2 person assist to get back into bed. I was able to examine incision while sitting up in. He complains considerable pain. He denies any fevers but a T-max 38 point overnight. He was changed yesterday to cefepime empirically. His initial blood cultures from midnight on the are growing gram-negative rods in both sets. Has not yet been identified. His repeat blood cultures from 09/06 he history afternoon are pending. He is currently afebrile. He is being followed by Orthopedic surgery and the decision has not been made regarding additional surgery especially regarding his recent cardiac history. He denies any shortness of breath chest pain nausea vomiting diarrhea or abdominal pain. He does have Rojas catheter in place. His remaining review of systems is reviewed and unremarkable. has questions regarding surgical plans. states she was told that his previous troponin elevations were due to infection, not due to an NE, however, it does appear that pt was diagnosed with NSTEMI based on review of chart from last admission. Physical Exam Vital Signs (Past 24 Hours): Last Vital Signs Temp 36.9 C 08/06/18 11:21 Pulse 79 08/06/18 11:21 Resp 20 08/06/18 11:21 BP 121/72 08/06/18 11:21 Pulse Ox 98 08/06/18 11:21 Constitutional: + ill appearing and + lethargic; not diaphoretic Eyes: PERRL, conjunctivae normal, anicteric sclerae ENMT: external ear and nose normal, oropharynx normal Neck: normal visual inspection; no nuchal rigidity Respiratory: normal respiratory effort, lungs clear to auscultation Cardiovascular: RRR, no murmur, no edema Gastrointestinal (Abdomen): Inspection/Auscultation: abdomen normal to inspection and + abdomen distended Percussion/Palpation: abdomen nontender, no guarding and abdomen not rigid Musculoskeletal: no cyanosis or clubbing, extremities motor strength 5/5 Skin: no rashes, warm and dry back incision steri strips intact. closed, tender, no surrounding erythema Psychiatric: A+Ox3, euthymic affect Results & Data Laboratory Results Microbiology 08/05/18 00:50 Blood Blood Culture - Preliminary Gram negative bacilli 08/05/18 00:50 Blood Blood Culture - Preliminary Gram negative bacilli
[2018-08-06] MEDS: ACETAMINOPHEN 325 MG TAB PO PRN ×3 (12:49→21:23)
[2018-08-06] MEDS: HEPARIN STANDARD DEXTROSE 25,000 UNITS/500 ML IV SCH (12:49)
[2018-08-06] MEDS: LIDOCAINE 5% 1 PATCH TD SCH (16:51)
[2018-08-06] MEDS: ATORVASTATIN 40 MG TAB PO SCH (21:25)
--- NOTE | 2018-08-06 22:43 | Hospitalist Progress Note ---
Date of Service August 06, 2018 Assessment & Plan (1) Gram negative sepsis: Antibiotics were started due to bactermia.. Cultures came back positive for gram negative bacilli. Patient's antibiotic were switched to cefepime for possible bone involvement. Given that patient had surgery in the past. I had a lengthy discussion to . The is ok with keeping patient here. However, given this bacteremia, it is quite possible that patient may not have had an [place] but demand ischemia complicated by his severe CAD and sepsis. Dr. Morales is contemplating in taking patient to analyze his if patient has an infection in the back. Will continue current antibiotics. (2) Bacteremia due to Gram-negative bacteria: (3) Post-operative pain: Pain may be from infection. D/W ORHTO, unable to get MRI due to ICD. Images show post op changes, unable to rule out infection. Patient will be NPO after midnight. (4) Constipation: Use Miralax PRN, the patient only had one small BM while here last week. Abdomen is distended but there are bowels sounds and patient is passing gas. - Bowel regimen (5) Chronic systolic heart failure: Patient needed some intermittent Lasix on last admission. Still has some swelling, but mild. No shortness of breath to indicate pulmonary edema. - Continue Toprol at half a dose. - Lasix increased from 20mg PO daily to 40mg PO daily by admitted provider - Monitor volume status - Appears euvolemic on 08/05 (6) Stage III chronic kidney disease: Baseline Cr stable at 0.92. - Monitor Cr while inpatient (7) Acute anemia: Had some blood loss last admission for surgery. Hgb is stable at 9.1 on admission. - Monitor hgb (8) Ischemic cardiomyopathy: Chronic systolic HF. 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 No discharges. - Monitor (10) Coronary artery disease: H/o 3 vessel CABG in 2001 at [facility] (DELATORRE to distal LAD, FERNANDO to Acute Marginal of RCA, Radial Artery Graft to LCx branch). Had NSTEMI after surgery during prior admission. Underwent cath with distal disease noted. No stent; treated medically. No current chest pain. - Continue aspirin and Plavix, statin therapy Possible demand ischemia with sepsis. (11) Diabetes mellitus, type 2: Continue Levemir. - Sliding scale with Novolog - Diabetic diet (12) Hypotension: monitor closely his BP. Improved with antibiotics (13) NSTEMI (non-ST elevated myocardial infarction): Doubt this diagnosis, however will continue heparin at this time. Troponin bump could be from demand ischemia (14) Acute kidney injury: Patient creatinine bumped up. This is likely from the sepsis. (15) DVT prophylaxis: Heparin 5000 units TID Spent 45 minutes in management of patient Subjective 67yo M w/ recent back surgery, re-presented due to worse back pain. Patient reports that he is no longer having chest pain. But patient reports having significant back pain. Patient also appears to be forgetful. Had extensive conversation with and daughter, explaining what the plan is. Explained that we will hold off narcotics due to confusion and abd. pian. D/W overnight resident, patient had fever chill overnight. Constitutional: + fatigue and + weakness; no fever, no chills, no sweats, no body aches and no anorexia Respiratory: + dyspnea on exertion; no dyspnea, no pain on inspiration and no wheezing Musculoskeletal: + back pain (severe, 9 out of 10) Neurologic: + tremor(s) Physical Exam Vital Signs (Past 24 Hours): Last Vital Signs Temp 36.6 C 08/06/18 19:24 Pulse 69 08/06/18 19:24 Resp 21 08/06/18 19:24 BP 147/76 H 08/06/18 19:24 Pulse Ox 97 08/06/18 19:24 Physical Exam: Constitutional: WD/WN, vitals as above + obese, patient appears confused. Eyes: PERRL, conjunctivae normal, anicteric sclerae ENMT: external ear and nose normal, oropharynx normal Neck: trachea midline, no thyromegaly Respiratory: normal respiratory effort, lungs clear to auscultation Cardiovascular: Rate/Rhythm: regular rate and regular rhythm, normal S1 and normal S2; no murmur Gastrointestinal (Abdomen): normal bowel sounds, soft, nontender, no hepatosplenomegaly Inspection/Auscultation: + abdomen remains distended Spine: + limited cervical ROM (prior surgery) and + limited thoraco-lumbar ROM (due to severe pain, dressing intact) Extremities: extremities normal to inspection and + limited ROM of extremities (cannot raise legs off of bed due to severe low back pain, but able to move them); normal muscle tone, no cyanosis and no clubbing Skin: no rashes, warm and dry Neurologic: patellar DTR's 2+ bilat, sensation intact and PERRL, EOMI, accommodation nl, no face palsy, no dysarthria moves all extremities Psychiatric: A+Ox3, euthymic affect Lymphatic: no cervical or axillary lymphadenopathy
[2018-08-06] MEDS: KETOROLAC TROMETHAMINE 15 MG/ML VIAL IV PRN (23:58)
[2018-08-07] MEDS: CEFEPIME 2,000 MG in SYRINGE 7.5 ML IV SCH (02:56)
[2018-08-07] MEDS: ACETAMINOPHEN 325 MG TAB PO PRN ×4 (03:12→18:06)
[2018-08-07] MEDS: INSULIN ASPART 100 UNITS/ML 3 ML PEN SC SCH ×4 (07:21→20:45)
[2018-08-07] MEDS: POLYETHYLENE (MIRALAX) 17 GM PACK PO SCH ×2 (07:24→20:42)
[2018-08-07 07:25] LABS: Hematocrit (blood only) 23.5 % (42-52); Hemoglobin 7.6 g/dL (14.0-18.0); Mean Corpuscular Hgb Conc 32.3 g/dL (32-36); Mean Corpuscular Volume 93.3 fL (80-100); Mean Platelet Volume 9.3 fL (7.4-10.4); Platelet Count 140 K/uL (130-400); RDW Coefficient of Variation 14.8 % (11.5-14.5); RDW Standard Deviation 50.7 fL (36.4-46.3); Red Blood Count 2.52 M/uL (4.7-6.1); White Blood Count 7.09 K/uL (4.8-10.8)
[2018-08-07] MEDS: DOCUSATE SODIUM/SENNA 50/8.6MG TAB PO SCH ×2 (07:25→20:48)
[2018-08-07] MEDS: ASPIRIN 81 MG ECTAB PO SCH (07:25)
[2018-08-07] MEDS: VITAMIN B COMPLEX TAB PO SCH (07:25)
[2018-08-07] MEDS: FINASTERIDE 5 MG TAB PO SCH (07:25)
[2018-08-07] MEDS: CHOLECALCIFEROL 1,000 UNITS TAB PO SCH (07:26)
[2018-08-07] MEDS: OMEGA-3 (PURIFIED FISH OIL) 1 GM CAP PO SCH (07:26)
[2018-08-07] MEDS: CYANOCOBALAMIN 500 MCG TABLET (VITAMIN B-12) PO SCH (07:26)
[2018-08-07] MEDS: FUROSEMIDE 40 MG TAB PO SCH (07:26)
[2018-08-07] MEDS: MAGNESIUM OXIDE 400 MG TAB PO SCH (07:26)
[2018-08-07] MEDS: CLOPIDOGREL BISULFATE 75 MG TAB PO SCH (07:26)
[2018-08-07 07:37] LABS: Creatinine Clr Calc Pharmacy 77.4 ml/min; Est GFR (African American) 74.6; Est GFR (Non-African American) 64.4
[2018-08-07] MEDS ORDERED: Nursing to Pharmacy Communication ONE (07:39)
[2018-08-07] MEDS ORDERED: METOPROLOL SUCC 50MG EXT REL TAB PO STA (08:54)
[2018-08-07] MEDS ORDERED: INSULIN DETEMIR FLEXPEN/FLEX TOUCH 100 UNITS/ML 3ML SC ONE (09:00)
--- NOTE | 2018-08-07 09:04 | Cardiology Progress Note ---
Date of Service August 07, 2018 Assessment & Plan (1) Chest pain: It has been difficult to sort out his chest discomfort but it did correlate with an enzyme rise, although he had other reasons to have the enzyme rise most recently (sepsis and hypotension). He is not having chest discomfort recently. At this point I would hold off on invasive evaluation of his chest discomfort, his enzyme rise and discomfort was most likely due to demand ischemia related to his sepsis not a change in his coronary anatomy since last admission. (2) CAD (coronary artery disease): He has known severe coronary artery disease, however the relationship to his recent symptoms is not clear. His enzyme level mann again after being low on admission, however he was hypotensive and had positive blood cultures which certainly could create demand ischemia in the setting of his known coronary artery disease. We had planned intervention but that was before we had evidence of sepsis and at that point his enzyme rise was unexplained. Now that it is explained I do not think we need to proceed with coronary intervention., we need to sort out his sepsis and back pain first. His troponin has dropped down again and he is not having chest discomfort. For the moment I would watch carefully but not plan any cardiac procedures. (3) Ischemic cardiomyopathy: He has a long-standing ischemic cardiomyopathy, his ejection fraction was worse historically and then improved. We were forced to decrease his heart failure medications due to hypotension in the past but his recent ejection fraction had been relatively good, however now may have dropped slightly. He does not seem to have a lot of heart failure although he has edema, his weight has increased substantially over the last several weeks (about 8 kg) and continues to rise. At some point will need to diurese or he will go into heart failure. I would be very careful with fluids during surgery given his weight gain and risk of going into heart failure. (4) Hypotension: He has an element of hypotension this admission, I suspected initially that it was medication related as he was on fairly high doses of medications and had hypotension before on these medications, however with the finding of positive blood cultures and correction now it was probably related to sepsis. I am hesitant to discontinue his medications altogether and he should have beta- blockade for his ischemia as well as his cardiomyopathy. I would recommend gradually reintroducing his medications as they were preadmission, although perhaps preop we want to be a little bit careful but his blood pressure is quite high currently but appears to be labile. (5) Acute kidney injury: His creatinine had increased several days ago after being normal before, it has normalized now. I suspect it was due to sepsis not dehydration. He is volume overloaded however based on his weight several weeks ago being s ubstantially lower than it is now and he does have fluid retention (edema). Subjective He seems to feel better today, he is complaining of ongoing back pain but denies chest pain. He cannot localize his back pain. He is trying to understand the ends and out of back surgery versus his coronary artery disease and he is trying to make the decision as to whether he should pursue his heart or his back first, I tried to explain the concept of demand ischemia but I do not think he understands although he tries to and asked a lot of questions. I had a long talk with his and I believe his daughter at the same time on the telephone, I tried to discuss that with them as well and they wanted to make sure that we would avoid further heart trouble if he went back to surgery. I told him that we cannot necessarily avoid that, but at this point we need to deal with the infection and I do not think that we should do any type of cardiac evaluation or treatment at this time. Physical Exam Vital Signs (Past 24 Hours): Last Vital Signs Temp 36.7 C 08/07/18 07:14 Pulse 69 08/07/18 07:14 Resp 19 08/07/18 07:14 BP 182/76 H 08/07/18 07:14 Pulse Ox 100 08/07/18 07:14 Physical Exam: Constitutional: Alert, cooperative and in no distress. HEENT: Unremarkable Neck: No jugular venous distention, carotid pulses are normal and equal bilaterally without bruits. Pulmonary: Clear to auscultation bilaterally. Cardiac: Regular rhythm with no murmur, gallop or rub. Abdomen: Soft, nontender with normal bowel sounds. Extremities: +1 bilateral pretibial edema. Neurologic: No focal findings. Gait not tested. Skin: No rash, ecchymoses or petechiae. Results & Data Diagnostic Findings Telemetry: Sinus rhythm, no significant arrhythmia
--- NOTE | 2018-08-07 09:41 | Infectious Disease Progress Nt ---
Date of Service August 07, 2018 Assessment & Plan (1) Serratia septicemia: At this point I would change him to ertapenem for once daily dosing uses uses he likely will require of for suspected hardware infection. No other source infection been identified. It is unclear at this point if he will require any additional surgeries. Certainly he has comorbidities to consider. His repeat blood cultures remain negative. He remains afebrile his blood cultures remain negative tomorrow he would be a candidate for PICC line. He likely will require 6 weeks of intravenous antibiotics weekly laboratory studies. CT scan did reveal abscess however there was significant artifact his hardware. He is not a candidate MRI due to his AICD. Will continue to follow. Subjective Patient is seen in visit. He is resting comfortably in. He continues to low pain but states it is somewhat better today. He is having difficulty finding a where he is. He denies any fevers or chills overnight. Last documented fever overnight the . His initial cultures from midnight are growing Serratia which is resistant to Rocephin and intermediate to Zosyn. It is sensitive to cefepime and he remains on this. His repeat blood cultures from the afternoon of as well as the are negative. His white blood cell count today 7.0. He is tolerating antibiotics well. He denies any chest pain cough shortness of on my exam this morning. He denies any nausea vomiting or diarrhea. He is NPO pending orthopedic evaluation questionable surgery. Per the chart his had a transfer to [facility] yesterday this was denied by [facility]. Was also concern regarding cardiac risk transfer. Cardiology continues to patient his remaining review of systems is reviewed and Physical Exam Vital Signs (Past 24 Hours): Last Vital Signs Temp 36.7 C 08/07/18 07:14 Pulse 63 08/07/18 08:45 Resp 19 08/07/18 07:14 BP 182/76 H 08/07/18 07:14 Pulse Ox 100 08/07/18 07:14 Constitutional: + ill appearing and + lethargic; not diaphoretic Eyes: PERRL, conjunctivae normal, anicteric sclerae ENMT: external ear and nose normal, oropharynx normal Neck: normal visual inspection; no nuchal rigidity Respiratory: normal respiratory effort, lungs clear to auscultation Cardiovascular: RRR, no murmur, no edema Gastrointestinal (Abdomen): Inspection/Auscultation: abdomen normal to inspection and + abdomen distended Percussion/Palpation: abdomen nontender, no guarding and abdomen not rigid Musculoskeletal: no cyanosis or clubbing, extremities motor strength 5/5 Skin: no rashes, warm and dry Psychiatric: A+Ox3, euthymic affect Results & Data Laboratory Results Microbiology 08/05/18 00:50 Blood Blood Culture - Final Serratia marcescens 08/05/18 00:50 Blood Blood Culture - Preliminary Serratia marcescens 08/05/18 15:29 Blood Blood Culture - Preliminary No growth to date. 08/05/18 15:23 Blood Blood Culture - Preliminary No growth to date.
[2018-08-07] MEDS: LOSARTAN POTASSIUM 50 MG TAB PO SCH (09:45)
[2018-08-07] MEDS: ERTAPENEM SODIUM 1,000 MG in SODIUM CHLORIDE 0.9% 50 ML IV SCH (10:49)
--- NOTE | 2018-08-07 13:31 | Orthopedic Progress Note ---
Date of Service August 07, 2018 Assessment & Plan (1) Bacteremia due to Gram-negative bacteria: At this time he is relatively asymptomatic. In light of his health would like to avoid surgery if at all possible. He seems to be responding to the antibiotics. He is nontender to palpation. Subsequently we will not perform I&D today and continue close observation. Present on Admission?: Yes Subjective Patient states that his pain is a 3 out of 10. He is overall comfortable sitting in the chair at this time. He denies any leg pain. Physical Exam Vital Signs (Past 24 Hours): Last Vital Signs Temp 36.9 C 08/07/18 11:05 Pulse 72 08/07/18 11:05 Resp 18 08/07/18 11:05 BP 134/68 08/07/18 11:05 Pulse Ox 100 08/07/18 11:05 Physical Exam: On exam he was able to stand for me without difficulty. Incision appears clean dry and intact. I was unable to elicit any discomfort to palpation of the paige-incisional area.
[2018-08-07] MEDS: D5W AND 1/2NSS 1,000 ML IV SCH (15:27)
[2018-08-07] MEDS: INSULIN DETEMIR FLEXPEN/FLEX TOUCH 100 UNITS/ML 3ML SQ SCH (20:43)
[2018-08-07] MEDS: LIDOCAINE 5% 1 PATCH TD SCH (20:44)
[2018-08-07] MEDS: ATORVASTATIN 40 MG TAB PO SCH (20:44)
--- NOTE | 2018-08-07 22:18 | Hospitalist Progress Note ---
Date of Service August 07, 2018 Assessment & Plan (1) Gram negative sepsis: Antibiotics were started due to bacteremia.. Cultures came back positive for gram negative bacilli: serratia M. Patient will be on ertapenem. Will likely require PICC line once cultures are back and are negative. Last fever was on 08/05. As patient is improving, will hold off surgical revision. (2) Bacteremia due to Gram-negative bacteria: As noted above. (3) Post-operative pain: Pain may be from infection. D/W ORHTO, unable to get MRI due to ICD. Images show post op changes, unable to rule out infection. As patient is improving, plan is for long chain beamer antibiotics. Ortho is concerned over the recent NE and lack of physical exam findings on his back to suggest an infection. Would like to monitor his response to the antibiotic. (4) Constipation: Use Miralax PRN, the patient only had one small BM while here last week. Abdomen is distended but there are bowels sounds and patient is passing gas. - Bowel regimen (5) Chronic systolic heart failure: Patient needed some intermittent Lasix on last admission. Still has some swelling, but mild. No shortness of breath to indicate pulmonary edema. - Continue Toprol at half a dose. - Monitor volume status - Appears euvolemic on 08/07 (6) Stage III chronic kidney disease: Baseline Cr increased at 1.4 - Monitor Cr while inpatient (7) Acute anemia: Had some blood loss last admission for surgery. Hgb is stable at 9.1 on admission. - Monitor hgb (8) Ischemic cardiomyopathy: Chronic systolic HF. 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 No discharges. - Monitor (10) Coronary artery disease: H/o 3 vessel CABG in 2001 at [facility] (DELATORRE to distal LAD, FERNANDO to Acute Marginal of RCA, Radial Artery Graft to LCx branch). Had NSTEMI after surgery during prior admission. Underwent cath with distal disease noted. No stent; treated medically. No current chest pain. - Continue aspirin and Plavix, statin therapy Possible demand ischemia with sepsis. (11) Diabetes mellitus, type 2: Continue Levemir. - Sliding scale with Novolog - Diabetic diet (12) Hypotension: monitor closely his BP. Improved with antibiotics. resolved. (13) NSTEMI (non-ST elevated myocardial infarction): Doubt this diagnosis, however will continue heparin at this time. Troponin bump could be from demand ischemia (14) Acute kidney injury: Patient creatinine bumped up. This is likely from the sepsis. Improved to 1.4 (15) DVT prophylaxis: was on heparin drip. Spent 25 minutes in management of patient Subjective 67yo M w/ recent back surgery, re-presented due to worse back pain. Patient seen in the evening. Patient reports he is feeling better. His pain is controlled with the lidocaine patch. Nurse states he appears less confused without the narcotics. He also reports having a bowel movement. D/W overnight resident, patient had fever chill overnight. Constitutional: + fatigue and + weakness; no fever, no chills, no sweats, no body aches and no anorexia Respiratory: + dyspnea on exertion; no dyspnea, no pain on inspiration and no wheezing Musculoskeletal: + back pain (severe, 9 out of 10) Neurologic: + tremor(s) Physical Exam Vital Signs (Past 24 Hours): Last Vital Signs Temp 36.7 C 08/07/18 19:27 Pulse 71 08/07/18 19:27 Resp 17 08/07/18 19:27 BP 117/71 08/07/18 19:27 Pulse Ox 100 08/07/18 19:27 Physical Exam: Constitutional: WD/WN, vitals as above + obese, patient appears confused. Eyes: PERRL, conjunctivae normal, anicteric sclerae ENMT: external ear and nose normal, oropharynx normal Neck: trachea midline, no thyromegaly Respiratory: normal respiratory effort, lungs clear to auscultation Cardiovascular: Rate/Rhythm: regular rate and regular rhythm, normal S1 and normal S2; no murmur Gastrointestinal (Abdomen): normal bowel sounds, soft, nontender, no hepatosplenomegaly Inspection/Auscultation: + abdomen remains distended Spine: + limited cervical ROM (prior surgery) and + limited thoraco-lumbar ROM (due to severe pain, dressing intact) Extremities: extremities normal to inspection and + limited ROM of extremities (cannot raise legs off of bed due to severe low back pain, but able to move them); normal muscle tone, no cyanosis and no clubbing Skin: no rashes, warm and dry Neurologic: patellar DTR's 2+ bilat, sensation intact and PERRL, EOMI, accommodation nl, no face palsy, no dysarthria moves all extremities Psychiatric: A+Ox3, euthymic affect Lymphatic: no cervical or axillary lymphadenopathy
[2018-08-08 06:33] LABS: Creatinine Clr Calc Pharmacy 110.3 ml/min; Est GFR (African American) 107.6; Est GFR (Non-African American) 92.8
[2018-08-08] MEDS: LOSARTAN POTASSIUM 50 MG TAB PO SCH (07:54)
[2018-08-08] MEDS: CLOPIDOGREL BISULFATE 75 MG TAB PO SCH (07:54)
[2018-08-08] MEDS: ASPIRIN 81 MG ECTAB PO SCH (07:54)
[2018-08-08] MEDS: CYANOCOBALAMIN 500 MCG TABLET (VITAMIN B-12) PO SCH (07:54)
[2018-08-08] MEDS: CHOLECALCIFEROL 1,000 UNITS TAB PO SCH (07:54)
[2018-08-08] MEDS: VITAMIN B COMPLEX TAB PO SCH (07:54)
[2018-08-08] MEDS: FUROSEMIDE 40 MG TAB PO SCH (07:55)
[2018-08-08] MEDS: FINASTERIDE 5 MG TAB PO SCH (07:55)
[2018-08-08] MEDS: OMEGA-3 (PURIFIED FISH OIL) 1 GM CAP PO SCH (07:55)
[2018-08-08] MEDS: MAGNESIUM OXIDE 400 MG TAB PO SCH (07:55)
[2018-08-08] MEDS: POLYETHYLENE (MIRALAX) 17 GM PACK PO SCH ×2 (07:56→20:27)
[2018-08-08] MEDS: INSULIN ASPART 100 UNITS/ML 3 ML PEN SC SCH ×4 (07:58→21:57)
[2018-08-08] MEDS: INSULIN DETEMIR FLEXPEN/FLEX TOUCH 100 UNITS/ML 3ML SQ SCH (07:59)
--- NOTE | 2018-08-08 09:02 | Cardiology Progress Note ---
Date of Service August 08, 2018 Assessment & Plan (1) Chest pain: It has been difficult to sort out his chest discomfort but it did correlate with an enzyme rise, although he had other reasons to have the enzyme rise most recently (sepsis and hypotension). He is not having chest discomfort recently. At this point I would hold off on invasive evaluation of his chest discomfort, his enzyme rise and discomfort was most likely due to demand ischemia related to his sepsis not a change in his coronary anatomy since last admission. I am not here over the weekend, Dr. Woodson will be covering, if there are any cardiac issues please contact him. (2) CAD (coronary artery disease): He has known severe coronary artery disease, however the relationship to his recent symptoms is not clear. His enzyme level mann again this admission after being low on admission, however he was hypotensive and had positive blood cultures which certainly could create demand ischemia in the setting of his known coronary artery disease. We had planned intervention but that was before we had evidence of sepsis and at that point his enzyme rise was unexplained. Now that it is explained I do not think we need to proceed with coronary intervention., we need to sort out his sepsis and back pain first. His troponin has dropped down again and he is not having chest discomfort. For the moment I would watch carefully but not plan any cardiac procedures unless his situation changes. (3) Ischemic cardiomyopathy: He has a long-standing ischemic cardiomyopathy, his ejection fraction was worse historically and then improved. We were forced to decrease his heart failure medications due to hypotension in the past but his recent ejection fraction had been relatively good before his current admission, however now may have dropped slightly. He does not seem to have a lot of heart failure although he has edema, his weight has increased substantially over the last several weeks (about 8 kg). He has lost some weight since yesterday and I would continue with gradual weight loss. (4) Hypotension: He has an element of hypotension this admission, I suspected initially that it was medication related as he was on fairly high doses of medications and had hypotension before on these medications, however with the finding of positive blood cultures and correction of his hypotension now it was probably related to sepsis. I am hesitant to discontinue his medications altogether and he should have beta-blockade for his ischemia as well as his cardiomyopathy. I would recommend gradually reintroducing his medications as they were preadmission. (5) Acute kidney injury: His creatinine had increased around the time his sepsis was diagnosed, it has normalized now. I suspect it was due to sepsis not dehydration. He is volume overloaded however, based on his weight from several weeks ago being substantially lower than it is now and he does have edema. Subjective Today he is much more alert and conversational. He denies chest discomfort. He has moderate back discomfort. Physical Exam Vital Signs (Past 24 Hours): Last Vital Signs Temp 36.4 C L 08/08/18 06:08 Pulse 73 08/08/18 06:08 Resp 18 08/08/18 06:08 BP 126/77 08/08/18 06:08 Pulse Ox 100 08/08/18 06:08 Physical Exam: Constitutional: Alert, cooperative and in no distress. Pulmonary: Clear to auscultation bilaterally. Cardiac: Regular rhythm with no murmur, gallop or rub. Abdomen: Soft, nontender with normal bowel sounds. Extremities: +1 bilateral pretibial edema. Skin: No rash, ecchymoses or petechiae.
[2018-08-08] MEDS: DOCUSATE SODIUM/SENNA 50/8.6MG TAB PO SCH ×2 (09:55→20:21)
[2018-08-08] MEDS ORDERED: TRAMADOL HCL 50 MG TABLET PO STA (11:15)
[2018-08-08] MEDS: ERTAPENEM SODIUM 1,000 MG in SODIUM CHLORIDE 0.9% 50 ML IV SCH (11:47)
--- NOTE | 2018-08-08 13:10 | Orthopedic Progress Note ---
Date of Service August 08, 2018 Assessment & Plan (1) Mary septicemia: At this time he seems to be responding to antibiotics. He is remained afebrile. We have discussed possible I&D lumbar spine. I again I am very hesitant regarding his recent cardiac events to have him undergo another s urgery. He appears to be stable at this time. Continued observation is reasonable. Present on Admission?: Yes Subjective Patient complaining of back pain. He was able to stand for short period of time today and sit in his chair this morning. He has not had a bowel movement yet. Denies any radicular leg pain. Physical Exam Vital Signs (Past 24 Hours): Last Vital Signs Temp 37 C 08/08/18 11:11 Pulse 73 08/08/18 11:11 Resp 18 08/08/18 11:11 BP 135/71 08/08/18 11:11 Pulse Ox 99 08/08/18 11:11 Physical Exam: On exam inspection of his incision it continues to appear benign. He has no pain to deep palpation of the paige-incisional region. It is reasonable strength testing of bilateral extremities.
--- NOTE | 2018-08-08 13:55 | Infectious Disease Progress Nt ---
Date of Service August 08, 2018 Assessment & Plan (1) Serratia septicemia: continue ertapenem, will require 6 weeks IV abx for suspected hardware infection. No other source infection been identified. no plan for surgery at this point. His repeat blood cultures remain negative. He remains afebrile He likely will require 6 weeks of intravenous antibiotics weekly laboratory studies, cbc ,cmp, esr. will plan to follow post d/c from hospital. Subjective repeat cultures remain negative, changed to Ertapenem, tolerating well. afebrile. wbc 7.9. No plan for ortho surgery at this time due to co-morbidities. Physical Exam Vital Signs (Past 24 Hours): Last Vital Signs Temp 37 C 08/08/18 11:11 Pulse 73 08/08/18 11:11 Resp 18 08/08/18 11:11 BP 135/71 08/08/18 11:11 Pulse Ox 99 08/08/18 11:11 Results & Data Laboratory Results Microbiology 08/06/18 11:11 Blood Blood Culture - Preliminary No growth to date. 08/06/18 10:50 Blood Blood Culture - Preliminary No growth to date. 08/05/18 00:50 Blood Blood Culture - Final Serratia marcescens 08/05/18 00:50 Blood Blood Culture - Preliminary Serratia marcescens 08/05/18 15:29 Blood Blood Culture - Preliminary No growth to date. 08/05/18 15:23 Blood Blood Culture - Preliminary No growth to date.
[2018-08-08] MEDS: ACETAMINOPHEN 325 MG TAB PO PRN ×2 (14:44→20:28)
[2018-08-08] MEDS: LACTULOSE SYRUP 30 GM/45 ML UDP PO STA ×2 (19:12→20:58)
[2018-08-08] MEDS: ATORVASTATIN 40 MG TAB PO SCH (20:21)
[2018-08-08] MEDS ORDERED: INSULIN DETEMIR FLEXPEN/FLEX TOUCH 100 UNITS/ML 3ML SQ STA (21:25)
[2018-08-08] MEDS ORDERED: Nursing to Pharmacy Communication ONE (21:32)
[2018-08-08] MEDS: LIDOCAINE 5% 1 PATCH TD SCH (22:04)
[2018-08-09 07:09] LABS: Hematocrit (blood only) 26.3 % (42-52); Hemoglobin 8.4 g/dL (14.0-18.0); Mean Corpuscular Hgb Conc 31.9 g/dL (32-36); Mean Corpuscular Volume 93.6 fL (80-100); Mean Platelet Volume 9.4 fL (7.4-10.4); Platelet Count 185 K/uL (130-400); RDW Coefficient of Variation 15.2 % (11.5-14.5); RDW Standard Deviation 52.4 fL (36.4-46.3); Red Blood Count 2.81 M/uL (4.7-6.1); White Blood Count 9.71 K/uL (4.8-10.8)
[2018-08-09] MEDS: LOSARTAN POTASSIUM 50 MG TAB PO SCH (08:10)
[2018-08-09] MEDS: INSULIN ASPART 100 UNITS/ML 3 ML PEN SC SCH ×4 (08:10→21:26)
[2018-08-09] MEDS: MAGNESIUM OXIDE 400 MG TAB PO SCH (08:11)
[2018-08-09] MEDS: FUROSEMIDE 40 MG TAB PO SCH (08:11)
[2018-08-09] MEDS: ASPIRIN 81 MG ECTAB PO SCH (08:11)
[2018-08-09] MEDS: CLOPIDOGREL BISULFATE 75 MG TAB PO SCH (08:12)
[2018-08-09] MEDS: OMEGA-3 (PURIFIED FISH OIL) 1 GM CAP PO SCH (08:12)
[2018-08-09] MEDS: FINASTERIDE 5 MG TAB PO SCH (08:12)
[2018-08-09] MEDS: DOCUSATE SODIUM/SENNA 50/8.6MG TAB PO SCH ×2 (08:12→21:25)
[2018-08-09] MEDS: CHOLECALCIFEROL 1,000 UNITS TAB PO SCH (08:13)
[2018-08-09] MEDS: CYANOCOBALAMIN 500 MCG TABLET (VITAMIN B-12) PO SCH (08:13)
[2018-08-09] MEDS: VITAMIN B COMPLEX TAB PO SCH (08:13)
[2018-08-09] MEDS: POLYETHYLENE (MIRALAX) 17 GM PACK PO SCH ×2 (08:15→21:25)
--- NOTE | 2018-08-09 09:18 | Hospitalist Progress Note ---
Date of Service August 08, 2018 Assessment & Plan (1) Gram negative sepsis: Antibiotics were started due to bacteremia.. Cultures came back positive for gram negative bacilli: serratia M. Patient will be on ertapenem. Will likely require PICC line once cultures are back and are negative. Last fever was on 08/05. As patient is improving, will hold off surgical revision. (2) Bacteremia due to Gram-negative bacteria: As noted above. (3) Post-operative pain: Pain may be from infection. D/W ORHTO, unable to get MRI due to ICD. Images show post op changes, unable to rule out infection. As patient is improving, plan is for nursing home antibiotics. Ortho is concerned over the recent NC and lack of physical exam findings on his back to suggest an infection. Would like to monitor his response to the antibiotic. (4) Constipation: Use Miralax PRN, the patient only had one small BM while here last week. Abdomen is distended but there are bowels sounds and patient is passing gas. - Bowel regimen -will order lactulose (5) Chronic systolic heart failure: Patient needed some intermittent Lasix on last admission. Still has some swelling, but mild. No shortness of breath to indicate pulmonary edema. - will order one time dose of toprol. - will resume in AM. - Monitor volume status - Appears hypervolemic. Patient received lasix in AM. (6) Stage III chronic kidney disease: Baseline Cr increased at 1.4 - Monitor Cr while inpatient (7) Acute anemia: Had some blood loss last admission for surgery. Hgb is stable at 9.1 on admission. - Monitor hgb (8) Ischemic cardiomyopathy: Chronic systolic HF. 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 No discharges. - Monitor (10) Coronary artery disease: H/o 3 vessel CABG in 2001 at [facility] (DELATORRE to distal LAD, FERNANDO to Acute Marginal of RCA, Radial Artery Graft to LCx branch). Had NSTEMI after surgery during prior admission. Underwent cath with distal disease noted. No stent; treated medically. No current chest pain. - Continue aspirin and Plavix, statin therapy Possible demand ischemia with sepsis. (11) Diabetes mellitus, type 2: Continue Levemir. - Sliding scale with Novolog - Diabetic diet (12) Hypotension: monitor closely his BP. Improved with antibiotics. resolved. (13) NSTEMI (non-ST elevated myocardial infarction): Doubt this diagnosis, however will continue heparin at this time. Troponin bump could be from demand ischemia (14) Acute kidney injury: Patient creatinine bumped up. This is likely from the sepsis. Improved to 1.4 (15) DVT prophylaxis: was on heparin drip. Spent 25 minutes in management of patient Subjective 67yo M w/ recent back surgery, re-presented due to worse back pain. Patient seen in the evening. is at bedside. Patient reports feeling well. He states his back pain is not completely controlled with the lidocaine patch and he is requesting more pain medicine. He also states despite having a BM yesterday, he is still constipated. Constitutional: + fatigue and + weakness; no fever, no chills, no sweats, no body aches and no anorexia Respiratory: + dyspnea on exertion; no dyspnea, no pain on inspiration and no wheezing Musculoskeletal: + back pain (severe, 9 out of 10) Neurologic: + tremor(s) Physical Exam Vital Signs (Past 24 Hours): Last Vital Signs Temp 36.4 C 08/08/18 11:11 Pulse 79 08/08/18 11:11 Resp 19 08/08/18 11:11 BP 176/77 H 08/08/18 11:11 Pulse Ox 100 08/08/18 11:11 Physical Exam: Constitutional: WD/WN, vitals as above + obese, patient appears confused. Eyes: PERRL, conjunctivae normal, anicteric sclerae ENMT: external ear and nose normal, oropharynx normal Neck: trachea midline, no thyromegaly Respiratory: normal respiratory effort, lungs clear to auscultation Cardiovascular: Rate/Rhythm: regular rate and regular rhythm, normal S1 and normal S2; no murmur Gastrointestinal (Abdomen): normal bowel sounds, soft, nontender, no hepatosplenomegaly Inspection/Auscultation: + abdomen remains distended Spine: + limited cervical ROM (prior surgery) and + limited thoraco-lumbar ROM (due to severe pain, dressing intact) Extremities: extremities normal to inspection and + limited ROM of extremities (cannot raise legs off of bed due to severe low back pain, but able to move them); normal muscle tone, no cyanosis and no clubbing Skin: no rashes, warm and dry, lower extremity swelling Neurologic: patellar DTR's 2+ bilat, sensation intact and PERRL, EOMI, accommodation nl, no face palsy, no dysarthria moves all extremities Psychiatric: A+Ox3, euthymic affect Lymphatic: no cervical or axillary lymphadenopathy
[2018-08-09] MEDS ORDERED: LACTULOSE SYRUP 30 GM/45 ML UDP PO STA ×2 (09:36→09:44)
--- NOTE | 2018-08-09 09:45 | Hospitalist Progress Note ---
Date of Service August 09, 2018 Assessment & Plan (1) Gram negative sepsis: Antibiotics were started due to bacteremia.. Cultures came back positive for gram negative bacilli: serratia M. Patient will be on ertapenem. Will likely require PICC line once cultures are back and are negative. Last fever was on 08/05. As patient is improving in regards to his vitals, will hold off surgical revision. However he continues to have severe pain. Will touch base with ortho. (2) Bacteremia due to Gram-negative bacteria: As noted above. (3) Post-operative pain: Pain may be from infection. D/W ORHTO, unable to get MRI due to ICD. Images show post op changes, unable to rule out infection. As patient is improving, plan is for buttermaker helper antibiotics. Ortho is concerned over the recent CO and lack of physical exam findings on his back to suggest an infection. Would like to monitor his response to the antibiotic. (4) Constipation: Use Miralax PRN, the patient only had one small BM while here last week. Abdomen is distended but there are bowels sounds and patient is passing gas. Bowel regimen. Appears to be improving. will monitor. (5) Chronic systolic heart failure: Patient needed some intermittent Lasix on last admission. Still has some swelling, but mild. No shortness of breath to indicate pulmonary edema. - will order one time dose of toprol. - will resume in AM. - Monitor volume status - Appears hypervolemic. Patient received lasix in AM. (6) Stage III chronic kidney disease: - Monitor Cr while inpatient (7) Acute anemia: Had some blood loss last admission for surgery. Hgb is stable at 9.1 on admission. - Monitor hgb Hemoglobin is controlled. (8) Ischemic cardiomyopathy: Chronic systolic HF. 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 No discharges. - Monitor (10) Coronary artery disease: H/o 3 vessel CABG in 2001 at [facility] (DELATORRE to distal LAD, FERNANDO to Acute Marginal of RCA, Radial Artery Graft to LCx branch). Had NSTEMI after surgery during prior admission. Underwent cath with distal disease noted. No stent; treated medically. No current chest pain. - Continue aspirin and Plavix, statin therapy Possible demand ischemia with sepsis. (11) Diabetes mellitus, type 2: Continue Levemir. - Sliding scale with Novolog - Diabetic diet (12) Hypotension: monitor closely his BP. Improved with antibiotics. resolved. (13) NSTEMI (non-ST elevated myocardial infarction): Doubt this diagnosis, however will continue heparin at this time. Troponin bump could be from demand ischemia (14) Acute kidney injury: Patient creatinine bumped up. This is likely from the sepsis. Improved to .08 (15) DVT prophylaxis: was on heparin drip. now on heparin subq Spent 25 minutes in management of patient Subjective 67yo M w/ recent back surgery, re-presented due to worse back pain. Patient seen in the evening. Patient has no new complaints. He continues to have pain in lumbar spine. This is accompanied by lower extremity weakness. He states his back pain is not completely controlled with the lidocaine patch and he is requesting more pain medicine. He reports having multiple BMs today. Constitutional: + fatigue and + weakness; no fever, no chills, no sweats, no body aches and no anorexia Respiratory: + dyspnea on exertion; no dyspnea, no pain on inspiration and no wheezing Musculoskeletal: + back pain (severe, 9 out of 10) Neurologic: + tremor(s) Physical Exam Vital Signs (Past 24 Hours): Last Vital Signs Temp 36.5 C 08/09/18 07:00 Pulse 79 08/09/18 07:00 Resp 19 08/09/18 07:00 BP 176/77 H 08/09/18 07:00 Pulse Ox 100 08/09/18 07:00 Physical Exam: Constitutional: WD/WN, vitals as above + obese, patient appears confused. Eyes: PERRL, conjunctivae normal, anicteric sclerae ENMT: external ear and nose normal, oropharynx normal Neck: trachea midline, no thyromegaly Respiratory: normal respiratory effort, lungs clear to auscultation Cardiovascular: Rate/Rhythm: regular rate and regular rhythm, normal S1 and normal S2; no murmur Gastrointestinal (Abdomen): normal bowel sounds, soft, nontender, no hepatosplenomegaly Inspection/Auscultation: + abdomen remains distended Spine: + limited cervical ROM (prior surgery) and + limited thoraco-lumbar ROM (due to severe pain, dressing intact) Extremities: extremities normal to inspection and + limited ROM of extremities (cannot raise legs off of bed due to severe low back pain) Skin: no rashes, warm and dry, lower extremity swelling Neurologic: patellar DTR's 2+ bilat, sensation intact and PERRL, EOMI, accommodation nl, no face palsy, no dysarthria moves all extremities Psychiatric: A+Ox3, euthymic affect Lymphatic: no cervical or axillary lymphadenopathy
--- NOTE | 2018-08-09 10:19 | Orthopedic Progress Note ---
Date of Service August 09, 2018 Assessment & Plan (1) Mary septicemia: This time we will encourage him to get to the chair and ambulate as much as possible today. Again I am very hesitant to consider I&D in light of his cardiac condition. We will continue to assess his progress. Present on Admission?: Yes Subjective Patient complaining some backache and leg stiffness. His bowels are working to day. Physical Exam Vital Signs (Past 24 Hours): Last Vital Signs Temp 36.5 C 08/09/18 07:00 Pulse 79 08/09/18 07:00 Resp 19 08/09/18 07:00 BP 176/77 H 08/09/18 07:00 Pulse Ox 100 08/09/18 07:00 Physical Exam: On exam he does demonstrate reasonable strength testing the lower extremities.
[2018-08-09] MEDS: INSULIN DETEMIR FLEXPEN/FLEX TOUCH 100 UNITS/ML 3ML SQ SCH ×3 (10:36→21:27)
[2018-08-09] MEDS: METOPROLOL SUCC 50MG EXT REL TAB PO SCH (10:37)
[2018-08-09] MEDS: METHYLNALTREXONE BROMIDE 12 MG/0.6 ML VIAL SQ SCH (10:40)
[2018-08-09] MEDS: ACETAMINOPHEN 325 MG TAB PO PRN ×2 (10:40→18:18)
[2018-08-09] MEDS: ERTAPENEM SODIUM 1,000 MG in SODIUM CHLORIDE 0.9% 50 ML IV SCH (10:43)
[2018-08-09] MEDS: HEPARIN SOD 5,000 UNIT/0.5 ML VIAL SQ SCH ×2 (13:45→21:26)
[2018-08-09] MEDS: TRAMADOL HCL 50 MG TABLET PO PRN (18:19)
[2018-08-09] MEDS: LIDOCAINE 5% 1 PATCH TD SCH (21:24)
[2018-08-09] MEDS: ATORVASTATIN 40 MG TAB PO SCH (21:25)
[2018-08-10] MEDS: HEPARIN SOD 5,000 UNIT/0.5 ML VIAL SQ SCH ×2 (06:18→13:40)
[2018-08-10] MEDS: POLYETHYLENE (MIRALAX) 17 GM PACK PO SCH ×2 (08:21→22:39)
[2018-08-10] MEDS: FUROSEMIDE 40 MG TAB PO SCH (08:34)
[2018-08-10] MEDS: VITAMIN B COMPLEX TAB PO SCH (08:34)
[2018-08-10] MEDS: CYANOCOBALAMIN 500 MCG TABLET (VITAMIN B-12) PO SCH (08:34)
[2018-08-10] MEDS: LOSARTAN POTASSIUM 50 MG TAB PO SCH (08:34)
[2018-08-10] MEDS: CLOPIDOGREL BISULFATE 75 MG TAB PO SCH (08:34)
[2018-08-10] MEDS: DOCUSATE SODIUM/SENNA 50/8.6MG TAB PO SCH ×2 (08:34→22:39)
[2018-08-10] MEDS: CHOLECALCIFEROL 1,000 UNITS TAB PO SCH (08:34)
[2018-08-10] MEDS: OMEGA-3 (PURIFIED FISH OIL) 1 GM CAP PO SCH (08:34)
[2018-08-10] MEDS: FINASTERIDE 5 MG TAB PO SCH (08:34)
[2018-08-10] MEDS: METOPROLOL SUCC 50MG EXT REL TAB PO SCH (08:34)
[2018-08-10] MEDS: MAGNESIUM OXIDE 400 MG TAB PO SCH (08:34)
[2018-08-10] MEDS: ASPIRIN 81 MG ECTAB PO SCH (08:34)
[2018-08-10] MEDS: INSULIN ASPART 100 UNITS/ML 3 ML PEN SC SCH ×4 (09:11→22:16)
[2018-08-10] MEDS: INSULIN DETEMIR FLEXPEN/FLEX TOUCH 100 UNITS/ML 3ML SQ SCH (09:15)
[2018-08-10] MEDS: TRAMADOL HCL 50 MG TABLET PO PRN ×2 (09:29→13:27)
[2018-08-10] MEDS: ERTAPENEM SODIUM 1,000 MG in SODIUM CHLORIDE 0.9% 50 ML IV SCH (10:16)
--- NOTE | 2018-08-10 11:29 | Orthopedic Progress Note ---
Date of Service August 10, 2018 Assessment & Plan (1) Mary septicemia: At this time would like to obtain a CAT scan lumbar spine with contrast today if possible. Like to rule out a fluid collection. We may need to consider I&D we have been quite hesitant to pursue operative intervention in light of his cardiac condition. Make further conditions upon study. Present on Admission?: Yes Subjective Patient continues to complain of limiting back pain. He had difficulty with therapy yesterday and this morning. Transitions are quite painful as well as sitting up in bed. He has no clear radicular complaints but describes a weakness in his bilateral quadriceps. Physical Exam Vital Signs (Past 24 Hours): Last Vital Signs Temp 36.6 C 08/10/18 07:07 Pulse 72 08/10/18 07:07 Resp 16 08/10/18 07:07 BP 131/72 08/10/18 07:07 Pulse Ox 100 08/10/18 07:07 Physical Exam: On exam is incision appears to be clean dry and intact. Neurologically intact to testing the lower extremities.
[2018-08-10] MEDS ORDERED: IOVERSOL 100ml IV PRN (12:02)
--- NOTE | 2018-08-10 12:19 | CT Scan Report ---
CT lumbar spine w con HISTORY: 67 years-old Male continued back and leg pain r/o fluid collection acute low back and bilat eral leg pain with recent postoperative changes of the lumbar spine. COMPARISON: Lumbar spine MRI 08/05/2018 TECHNIQUE: Multiple axial CT images of the lumbar spine were obtained without the use of IV contrast. A dose lowering technique was used consistent with the principals of GENEVA. FINDINGS: Postoperative changes redemonstrated with L3-L4, L4-L5 and L5 discectomy. Laminectomy changes are not ed at L3-L5 with evidence of prior hardware removal at L5-S1. Transverse fracture noted about the pos terior L3 vertebral body with 5 mm retropulsion. The degree of retropulsion has progressed. Acute fra cture of the right L3 transverse process. The hardware appears intact. The remaining vertebral bodies appear unremarkable. Multilevel spondylitic spurring with facet arthrosis. Remote L1 compression def ormity. Infiltration about the operative bed with increased peripherally hyperdense fluid collection measurin g approximately 2.8 x 7.5 x 8.5 cm in AP, transverse and craniocaudal dimensions respectively. This c ollection is from the thecal sac by the posterior epidural fat. No definite epidural fluid collections identified. Bilateral pleural effusions are partially imaged. IMPRESSION: 1. Postoperative changes of the lumbar spine redemonstrated as above. 2. Increased size of a postoperative fluid collection about the operative bed with peripheral hyperde nsity measuring up to 2.8 x 7.5 x 8.5 cm. No definite epidural fluid collection identified. 3. Acute fracture of the posterior L3 vertebral body with 5 mm retropulsion. No associated high-grade central canal stenosis. 4. Acute nondisplaced fracture involves the base of the right transverse process. The above report was generated using voice recognition software. It may contain grammatical, syntax o r spelling errors. Electronically signed by: Kamari Veras M.D. 08/10/2018 12:17 PM
--- NOTE | 2018-08-10 22:21 | Hospitalist Progress Note ---
Date of Service August 10, 2018 Assessment & Plan (1) Gram negative sepsis: Antibiotics were started due to bacteremia.. Cultures came back positive for gram negative bacilli: serratia M. Patient will be on ertapenem, placed on 08/07. Will likely require PICC line once cultures are back and are negative. Last fever was on 08/05. Repeat ct scan which showed a larger amount of fluid collection on 08/10. Dr. Morales informed me he will be taking patient to OR on 08/11. Informed patient and . (2) Bacteremia due to Gram-negative bacteria: As noted above. (3) Post-operative pain: As noted above, will continue with ertapenem. (4) Constipation: Use Miralax PRN, the patient only had one small BM while here last week. Abdomen is distended but there are bowels sounds and patient is passing gas. Bowel regimen. Appears to be improving. will monitor. (5) Chronic systolic heart failure: Patient needed some intermittent Lasix on last admission. Still has some swelling, but mild. No shortness of breath to indicate pulmonary edema. On metoprolol x. since 08/09 - Monitor volume status - Appears hypervolemic.. (6) Stage III chronic kidney disease: - Monitor Cr while inpatient (7) Acute anemia: Had some blood loss last admission for surgery. Hgb is stable at 9.1 on admission. - Monitor hgb Hemoglobin is controlled. (8) Ischemic cardiomyopathy: Chronic systolic HF. 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 No discharges. - Monitor (10) Coronary artery disease: H/o 3 vessel CABG in 2001 at [facility] (DELATORRE to distal LAD, FERNANDO to Acute Marginal of RCA, Radial Artery Graft to LCx branch). Had NSTEMI after surgery during prior admission. Underwent cath with distal disease noted. No stent; treated medically. No current chest pain. - Continue aspirin and Plavix, statin therapy Possible demand ischemia with sepsis. (11) Diabetes mellitus, type 2: Continue Levemir. - Sliding scale with Novolog - Diabetic diet (12) Hypotension: monitor closely his BP. Improved with antibiotics. resolved. (13) NSTEMI (non-ST elevated myocardial infarction): Doubt this diagnosis, however will continue heparin at this time. Troponin bump could be from demand ischemia (14) Acute kidney injury: Patient creatinine bumped up. This is likely from the sepsis. Improved to .08 (15) DVT prophylaxis: was on heparin drip. now on heparin subq Spent 25 minutes in management of patient Subjective 67yo M w/ recent back surgery, re-presented due to worse back pain. Patient seen in the evening. Patient has no new complaints. He continues to have pain in lumbar spine. Explained to patient the CT findings, and patient will have surgery Saturday for an I and D. I also updated his . Patient reports having BMs. Constitutional: + fatigue and + weakness; no fever, no chills, no sweats, no body aches and no anorexia Respiratory: + dyspnea on exertion; no dyspnea, no pain on inspiration and no wheezing Musculoskeletal: + back pain (severe, 9 out of 10) Neurologic: + tremor(s) Physical Exam Vital Signs (Past 24 Hours): Last Vital Signs Temp 36.6 C 08/10/18 15:58 Pulse 76 08/10/18 15:58 Resp 22 08/10/18 15:58 BP 100/53 L 08/10/18 15:58 Pulse Ox 98 08/10/18 15:58 Physical Exam: Constitutional: WD/WN, vitals as above + obese, no longer appears confused. Eyes: PERRL, conjunctivae normal, anicteric sclerae ENMT: external ear and nose normal, oropharynx normal Neck: trachea midline, no thyromegaly Respiratory: normal respiratory effort, lungs clear to auscultation Cardiovascular: Rate/Rhythm: regular rate and regular rhythm, normal S1 and normal S2; no murmur Gastrointestinal (Abdomen): normal bowel sounds, soft, nontender, no hepatosplenomegaly Inspection/Auscultation: + abdomen remains distended Spine: + limited cervical ROM (prior surgery) and + limited thoraco-lumbar ROM (due to severe pain, dressing intact) Extremities: extremities normal to inspection and + limited ROM of extremities (cannot raise legs off of bed due to severe low back pain) Skin: no rashes, warm and dry, lower extremity swelling Neurologic: patellar DTR's 2+ bilat, sensation intact and PERRL, EOMI, accommodation nl, no face palsy, no dysarthria moves all extremities Psychiatric: A+Ox3, euthymic affect Lymphatic: no cervical or axillary lymphadenopathy
[2018-08-10] MEDS: ATORVASTATIN 40 MG TAB PO SCH (22:27)
[2018-08-10] MEDS: LIDOCAINE 5% 1 PATCH TD SCH (22:27)
[2018-08-10] MEDS ORDERED: Nursing to Pharmacy Communication ONE (22:49)
[2018-08-11] MEDS ORDERED: Nursing to Pharmacy Communication ONE ×2 (00:02→17:17)
[2018-08-11] MEDS ORDERED: ACETAMINOPHEN 1,000 MG/100 ML VIAL IV PRN (03:34)
[2018-08-11] MEDS: INSULIN ASPART 100 UNITS/ML 3 ML PEN SC SCH ×4 (06:16→23:53)
[2018-08-11 06:38] LABS: Hemoglobin 7.9 g/dL (14.0-18.0); Mean Corpuscular Hgb Conc 30.4 g/dL (32-36); Mean Corpuscular Volume 94.9 fL (80-100); Mean Platelet Volume 9.3 fL (7.4-10.4); Platelet Count 221 K/uL (130-400); RDW Coefficient of Variation 15.7 % (11.5-14.5); RDW Standard Deviation 52.8 fL (36.4-46.3); Red Blood Count 2.74 M/uL (4.7-6.1); White Blood Count 9.82 K/uL (4.8-10.8)
[2018-08-11] MEDS: CLOPIDOGREL BISULFATE 75 MG TAB PO SCH (09:22)
[2018-08-11] MEDS: ASPIRIN 81 MG ECTAB PO SCH (09:22)
[2018-08-11] MEDS: POLYETHYLENE (MIRALAX) 17 GM PACK PO SCH (09:23)
[2018-08-11] MEDS: LOSARTAN POTASSIUM 50 MG TAB PO SCH (09:27)
[2018-08-11] MEDS: FUROSEMIDE 40 MG TAB PO SCH (09:28)
[2018-08-11] MEDS: DOCUSATE SODIUM/SENNA 50/8.6MG TAB PO SCH ×2 (09:28→21:09)
[2018-08-11] MEDS: OMEGA-3 (PURIFIED FISH OIL) 1 GM CAP PO SCH (09:29)
[2018-08-11] MEDS: METOPROLOL SUCC 50MG EXT REL TAB PO SCH (09:29)
[2018-08-11] MEDS: CHOLECALCIFEROL 1,000 UNITS TAB PO SCH (09:30)
[2018-08-11] MEDS: FINASTERIDE 5 MG TAB PO SCH (09:30)
[2018-08-11] MEDS: CYANOCOBALAMIN 500 MCG TABLET (VITAMIN B-12) PO SCH (09:30)
[2018-08-11] MEDS: MAGNESIUM OXIDE 400 MG TAB PO SCH (09:31)
[2018-08-11] MEDS: VITAMIN B COMPLEX TAB PO SCH (09:31)
[2018-08-11] MEDS: METHYLNALTREXONE BROMIDE 12 MG/0.6 ML VIAL SQ SCH (09:32)
[2018-08-11] MEDS: INSULIN DETEMIR FLEXPEN/FLEX TOUCH 100 UNITS/ML 3ML SQ SCH ×2 (09:43→21:27)
[2018-08-11] MEDS: ERTAPENEM SODIUM 1,000 MG in SODIUM CHLORIDE 0.9% 50 ML IV SCH (11:23)
--- NOTE | 2018-08-11 13:08 | Anesthesiology Consultation ---
Date of Service August 11, 2018 Assessment & Plan (1) Encounter for pre-operative examination: Chart Review Chart Review: Acceptable Risk for Surgery (high risk due to cardiac issues, but needs to be done due to recent sepsis/infection concerns ) ASA ASA4 Proposed Anesthesia Anesthesia Type: General NPO Date Last Intake of Fluids: 08/10/18 Time Last Intake of Fluids: 23:59 Last Intake of Fluids Comment: sips of water with meds this morning Date Last Intake of Solids: 08/10/18 Time Last Intake of Solids: 23:59 History Surgery Operation Date: 08/07/18 15:15 Proposed Procedures p Incision and Drainage Lumbar Spine - Bong Morales DO Operation Date: 08/11/18 13:45 Proposed Procedures p Incision and Drainage Lumbar Spine - Bong Morales DO Height/Weight Height: 5 ft 8 in Weight: 113.6 kg Allergies Allergy/AdvReac Type Severity Reaction Status Date / Time No Known Allergies Allergy Verified 08/01/18 15:19 Medications Home Medications Medication Instructions Recorded Confirmed Last Taken magnesium oxide 400 mg PO QAM #0 tab 11/27/11 08/01/18 07/31/18 09:00 losartan 50 mg PO QAM #0 tab 05/26/12 08/01/18 07/31/18 09:00 omega 5-rwe-hgo-fish oil [Fish Oil] 1 cap PO QAM #0 cap 05/26/12 08/01/18 07/31/18 09:00 insulin detemir U-100 45 unit SUBCUT BID #0 12/10/13 08/01/18 07/31/18 08:30 36 units aspirin 325 mg PO QAM #0 tab 11/12/14 08/01/18 07/31/18 09:00 atorvastatin 40 mg PO HS #0 tab 11/12/14 08/01/18 07/30/18 21:00 coenzyme Q10 100 mg PO QAM #0 11/12/14 08/01/18 07/17/18 finasteride [Proscar] 5 mg PO QAM #0 11/12/14 08/01/18 07/31/18 09:00 furosemide [Lasix] 20 mg PO QAM #0 tab 11/12/14 08/01/18 07/31/18 09:00 cholecalciferol (vitamin D3) 1,000 unit PO QAM #0 07/04/15 08/01/18 07/31/18 09:00 insulin aspart U-100 10 - 50 unit SC TIDM #0 03/07/16 08/01/18 07/31/18 08:30 9 units metoprolol succinate [Toprol XL] 100 mg PO QAM #0 03/07/16 08/01/18 07/31/18 09:00 metformin 1,000 mg PO BID 05/16/18 08/01/18 07/24/18 07:30 cyanocobalamin (vitamin B-12) 1,000 mcg PO QAM 05/21/18 08/01/18 07/31/18 09:00 [Vitamin B-12] vitamin B complex 1 tab PO QAM 07/22/18 08/01/18 07/24/18 07:30 oxycodone 5 mg PO Q4H PRN #30 tab 07/31/18 08/01/18 08/01/18 tramadol 50 mg PO Q4H PRN #30 tab 07/31/18 08/01/18 Unknown Active Medications Generic Name Dose Route Start Last Admin Trade Name Freq PRN Reason Stop Dose Admin Acetaminophen 650 mg 08/01/18 18:50 08/09/18 18:18 Tylenol PO 08/31/18 18:49 650 mg Q4H PRN Administration pain/fever Aspirin 81 mg 08/02/18 09:00 08/11/18 09:22 Ecotrin Ectab PO 09/01/18 08:59 Not Given QAM KAYLYNN Atorvastatin Calcium 40 mg 08/01/18 21:00 08/10/18 22:27 Lipitor PO 08/31/18 20:59 40 mg HS KAYLYNN Administration Bisacodyl 10 mg 08/02/18 11:01 08/02/18 13:36 Dulcolax [place] 09/01/18 11:00 10 mg DAILY PRN Administration Constipation Clopidogrel Bisulfate 75 mg 08/02/18 09:00 08/11/18 09:22 Plavix PO 09/01/18 08:59 Not Given QAM KAYLYNN Cyanocobalamin 1,000 mcg 08/02/18 09:00 08/11/18 09:30 Vitamin B-12 PO 09/01/18 08:59 Not Given QAM [facility] Finasteride 5 mg 08/02/18 09:00 03/04/19 09:30 Proscar PO 09/01/18 08:59 5 mg QAM KAYLYNN Administration Fish Oil 1 gm 08/02/18 09:00 08/11/18 09:29 [place]-3 (Purified Fish Oil) PO 09/01/18 08:59 Not Given QAM KAYLYNN Furosemide 40 mg 08/02/18 09:00 08/11/18 09:28 Lasix PO 09/01/18 08:59 40 mg QAM KAYLYNN Administration Glucose 15 - 30 gm 08/01/18 19:34 08/03/18 21:15 Glucose 40% PO 08/31/18 19:33 15 gm UD PRN Administration Hypoglycemia Protocol Protocol Heparin Sodium (Porcine) 5,000 units 08/09/18 14:00 08/10/18 13:40 Heparin Sodium (Porcine) SQ 09/08/18 13:59 5,000 units Q8 KAYLYNN Administration Ertapenem 1,000 mg/ Sodium 60 mls @ 100 mls/hr 08/07/18 11:00 08/11/18 12:05 Chloride IV 09/18/18 09:44 Infused Q24H KAYLYNN Infusion Acetaminophen 1,000 mg in 100 mls @ 400 mls/hr 08/11/18 03:34 08/11/18 06:36 Ofirmev IV 09/10/18 03:33 Infused Q8H PRN Infusion Pain or Fever Insulin Aspart 0 units 08/11/18 06:00 08/11/18 12:28 Novolog Flexpen SC 09/10/18 05:59 Not Given Q6 KAYLYNN Insulin Detemir 15 units 08/11/18 09:00 08/11/18 09:43 Levemir Flextouch SQ 09/10/18 08:59 15 units BID KAYLYNN Administration Ioversol 93 ml 08/10/18 12:02 08/10/18 12:02 Optiray 320 100ml IV 08/14/18 12:01 93 ml ONCE PRN Administration Interaction Checking Lidocaine 2 patch 08/06/18 16:30 08/10/18 22:27 Lidoderm 5% TD 09/05/18 16:29 2 patch HS KAYLYNN Administration Losartan Potassium 50 mg 08/07/18 09:00 08/11/18 09:27 Cozaar PO 09/06/18 08:59 50 mg QAM KAYLYNN Administration Magnesium Oxide 400 mg 08/02/18 09:00 08/11/18 09:31 Mag-Ox PO 09/01/18 08:59 400 mg QAM KAYLYNN Administration Methylnaltrexone [place] 12 mg 08/09/18 09:45 08/11/18 09:32 Relistor SQ 09/08/18 09:44 12 mg Q2D@0900 KAYLYNN Administration Metoprolol Succinate 100 mg 08/09/18 09:30 08/11/18 09:29 Toprol Xl PO 09/08/18 09:29 100 mg QAM KAYLYNN Administration Miscellaneous 15 - 30 gm 08/01/18 19:34 08/09/18 08:02 Carbohydrates For Hypoglycemia PO 08/31/18 19:33 15 gm UD PRN Administration Hypoglycemia Treatment Miscellaneous 1 ea 08/07/18 06:00 08/11/18 09:22 Remove Lidoderm Patch N/A 09/06/18 05:59 1 ea QAM KAYLYNN Administration Oxycodone HCl 5 mg 08/04/18 05:32 08/05/18 23:13 Roxicodone Immediate Rel PO 08/18/18 05:31 5 mg Q4H PRN Administration Pain Polyethylene Glycol 17 gm 08/06/18 10:45 08/11/18 09:23 Miralax Powder Packet PO 09/05/18 10:44 Not Given BID KAYLYNN Senna/Docusate Sodium 2 tab 08/02/18 21:00 08/11/18 09:28 Senokot S PO 09/01/18 20:59 Not Given BID KAYLYNN Tramadol HCl 50 mg 08/08/18 18:40 08/10/18 13:27 Ultram PO 09/07/18 18:39 50 mg Q4H PRN Administration Pain Vitamin B Complex 1 tab 08/02/18 09:00 08/11/18 09:31 Vitamin B Complex PO 09/01/18 08:59 1 tab QAM KAYLYNN Administration Vitamin D 1,000 units 08/02/18 09:00 08/11/18 09:30 Vitamin D3 PO 09/01/18 08:59 Not Given QAM KAYLYNN Beta Dejuan Beta Dejuan Taken Within 24 Hours: Yes Past Medical History Medical History Difficult airway for intubation KNOT BUMPER 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 Admitted [facility] 10/18/11 for onset of incapacitating cervical myelopathy. Spinal tap showed KNOT BUMPER Lyme disease, MRI showed severe spinal cord compression at C3-4 with myelomalacia and intramedullary mass. Pt had c-spine surgery, subsequent prolonged hospital admission, complicated post-op course. Difficult intubation Sudden cardiac Post-op 2011 [facility]. Now has ICD. Sleep apnea PT NOT CURRENTLY CPAP 2/2 recurrent sinus infections. WILL SEE SLEEP MEDICINE/DR. ARCHULETA LATE 2017 Diabetes mellitus, type 2 IDDM. Degenerative disc disease Chronic back pain CHRONIC PAIN IN LEFT LEG Ischemic cardiomyopathy EF WNL 11/2017 CAD (coronary artery disease) s/p triple CABG 2002 Full dentures (Acute) Obese (Acute) Heart disease (Acute) HTN (hypertension) (Acute) High cholesterol (Acute) Past Family History Family History Other No pertinent family history Past Surgical History Surgical History History of esophagogastroduodenoscopy (EGD) History of colonoscopy History of cardiac cath 2011 AT [facility] - UNSURE IF HE HAS STENTS. History of tracheostomy Hx of transurethral resection of prostate History of cataract extraction with lens replacement Hx of tonsillectomy (Acute) H/O cervical spine surgery (Acute) ACDI C3-4, C7 corpectomy, removal of C7 intramedullary mass. History of lumbar spinal fusion (Acute) S/P triple vessel bypass (Acute) [facility] Social History Smoking Status: Never smoker tobacco type: smokeless tobacco Do You Dip or Chew Tobacco: Yes Hx Alcohol Use: No alcohol intake frequency: a few times a month Hx Substance Use: No substance use type: does not use Physical Exam Vital Signs Last Vital Signs Temp 36.8 C 08/11/18 07:28 Pulse 64 08/11/18 09:25 Resp 13 08/11/18 07:28 BP 134/74 08/11/18 09:25 Pulse Ox 99 08/11/18 07:28 Testing Electrocardiogram Date: 08/04/18 Findings: + NSR @ (79) and + RBBB Echocardiogram Date: 08/04/18 EF: 30-35% LV Function: dysfunctional (ant/apical worsened from recent prior echo) Cardiac Catheterization Date: 07/29/18 Findings: + RCA and + LMA Intervention: + none multivessel disease, patent DELATORRE to LAD, present disease not felt amenable to intervention, medical management recommended Laboratory Results 08/11/18 05:57 08/08/18 05:38 PT 10.4 Seconds (9.0-12.0) 08/01/18 15:40 INR 1.0 (0.9-1.1) 08/01/18 15:40 APTT 58.8 Seconds (21.0-31.0) H* 08/06/18 07:25 Urine Color Dark Yellow 08/05/18 06:30 Urine Appearance Clear (Clear) 08/05/18 06:30 Urine pH 5.0 (4.5-7.5) 08/05/18 06:30 Ur Specific [place] > 1.045 (1.000-1.030) H 08/05/18 06:30 Urine Protein Negative (Negative) 08/05/18 06:30 Urine Glucose (UA) Negative (Negative) 08/05/18 06:30 Urine Ketones Negative (Negative) 08/05/18 06:30 Urine Nitrite Negative (Negative) 08/05/18 06:30 Ur Leukocyte Esterase Negative (Negative) 08/05/18 06:30 Urine WBC (Auto) 5-10 /hpf (0-5) H 08/02/18 13:05 Urine RBC (Auto) 0-4 /hpf (0-4) 08/02/18 13:05 U Hyaline Cast (Auto) 1-5 /lpf (0-5) 08/02/18 13:05 U Epithel Cells (Auto) 10-20 /lpf (0-5) H 08/02/18 13:05 Urine Bacteria (Auto) Negative (Negative) 08/02/18 13:05 08/05/18 15:29 Blood Culture - Final Blood No growth 08/05/18 15:23 Blood Culture - Final Blood No growth 08/05/18 00:50 Blood Culture - Final Blood Serratia marcescens 08/06/18 11:11 Blood Culture - Preliminary Blood No growth to date. 08/06/18 10:50 Blood Culture - Preliminary Blood No growth to date. 08/05/18 00:50 Blood Culture - Final Blood Serratia marcescens 08/11/18 08/11/18 12:26 06:05 POC Glucose 92 82
[2018-08-11] MEDS ORDERED: MIDAZOLAM HCL 1 MG/ML 2ML VIAL ONE (13:31)
[2018-08-11] MEDS ORDERED: fentaNYL citrate 100 MCG/2 ML VIAL ONE (13:31)
[2018-08-11] MEDS ORDERED: ATROPINE SULFATE 0.1 MG/ML 10ML SYR IV PRN (13:36)
[2018-08-11] MEDS ORDERED: HYDROmorphone INJ 1 MG/ML SYRINGE IV PRN (13:36)
[2018-08-11] MEDS ORDERED: ONDANSETRON INJ 2 MG/ML 2 ML VIAL IV PRN (13:36)
[2018-08-11] MEDS ORDERED: SODIUM CHLORIDE 0.9% 250 ML IV PRN ×2 (13:43→19:42)
--- NOTE | 2018-08-11 13:59 | History & Physical Bridge Note ---
Date of Service August 11, 2018 History & Physical Bridge Note I have examined the patient, reviewed the History & Physical and in the interval since the performance of the History & Physical I have noted the following changes of clinical significance: After review of CAT scan and patient condition we have elected undergo I&D of the lumbar spine with placement of antibiotic beads.
[2018-08-11] MEDS ORDERED: HYDROmorphone INJ 2 MG/ML SYR/VIAL ONE (14:02)
[2018-08-11] MEDS ORDERED: BACITRACIN INJ 50,000 UNIT VIAL ONE (14:03)
[2018-08-11] MEDS ORDERED: VANCOMYCIN HCL 1000MG/20ML VIAL ONE (14:03)
[2018-08-11] MEDS ORDERED: BUPIVACAINE/EPINEPHRINE 0.5% MPF 1:200,000 30 ML VIAL ONE (14:03)
[2018-08-11] MEDS ORDERED: GENTAMICIN SULFATE 40 MG/ML 2 ML VIAL ONE (14:03)
[2018-08-11] MEDS ORDERED: NEOSTIGMINE METHYLSULFATE 1 MG/ML 10ML VIAL ONE (14:06)
[2018-08-11] MEDS ORDERED: PROPOFOL IV EMULSION 10 MG/ML 20 ML VIAL IV ONE (14:06)
[2018-08-11] MEDS ORDERED: ROCURONIUM BROMIDE 10 MG/ML 5 ML VIAL ONE (14:06)
[2018-08-11] MEDS ORDERED: DEXAMETHASONE SOD INJ 4 MG/ML VIAL ONE (14:06)
[2018-08-11] MEDS ORDERED: ONDANSETRON INJ 2 MG/ML 2 ML VIAL ONE (14:06)
[2018-08-11] MEDS ORDERED: LIDOCAINE HCL 2% 2 ML VIAL/AMP(20MG/ML) INFIL ONE (14:06)
[2018-08-11] MEDS ORDERED: GLYCOPYRROLATE 0.2 MG/ML VIAL ONE (14:06)
[2018-08-11] MEDS ORDERED: ETOMIDATE 2 MG/ML 20 ML VIAL IV ONE (15:14)
--- NOTE | 2018-08-11 15:39 | Infectious Disease Progress Nt ---
Date of Service August 11, 2018 Assessment & Plan (1) Serratia septicemia: 67-year-old male with Serratia sepsis with likely infected lumbar surgical site. Patient to continue on ertapenem, OR findings and cultures. Will follow. (2) Paraspinal abscess: Subjective Patient seen in follow-up for Serratia bacteremia. Plans for OR noted. Patient remains afebrile, still complaining of severe back pain, currently 6 out of 10 in intensity. Follow-up CT scan of the lumbar spine shows evidence of worsening infection. White count is normal. Tolerating ertapenem without apparent difficulty. Follow-up blood cultures are negative. Review of Systems All systems reviewed & are unremarkable except as noted in HPI & below Physical Exam Vital Signs (Past 24 Hours): Last Vital Signs Temp 36.2 C L 08/11/18 13:26 Pulse 64 08/11/18 13:26 Resp 16 08/11/18 13:26 BP 115/59 L 08/11/18 13:26 Pulse Ox 94 08/11/18 13:44 Constitutional: WD/WN, vitals as above comfortable; no acute distress Eyes: PERRL, conjunctivae normal, anicteric sclerae ENMT: external ear and nose normal, oropharynx normal Neck: trachea midline, no thyromegaly neck nontender Respiratory: normal respiratory effort, lungs clear to auscultation normal percussion; no respiratory distress Cardiovascular: Rate/Rhythm: regular rate and regular rhythm Heart Sounds: normal S1 and normal S2; no gallop, no murmur and no cardiac rub Gastrointestinal (Abdomen): normal bowel sounds, soft, nontender, no hepatosplenomegaly Musculoskeletal: no cyanosis or clubbing, extremities motor strength 5/5 Spine: + lumbar spinal tenderness No spinal tenderness, no joint swelling or erythema Skin: no rashes, warm and dry no lesions Neurologic: moves all extremities and awake; no focal motor deficits Motor/Sensory: no sensory deficit Psychiatric: A+Ox3, euthymic affect Lymphatic: no cervical or axillary lymphadenopathy no inguinal lymphad enopathy Results & Data Laboratory Results Short CBC 08/11/18 Range/Units 05:57 WBC 9.82 (4.8-10.8) K/uL Hgb 7.9 L (14.0-18.0) g/dL Hct 26.0 L (42-52) % Plt Count 221 (130-400) K/uL Diagnostic Findings Microbiology 08/05/18 15:29 Blood Blood Culture - Final No growth 08/05/18 15:23 Blood Blood Culture - Final No growth 08/05/18 00:50 Blood Blood Culture - Final Serratia marcescens 08/06/18 11:11 Blood Blood Culture - Preliminary No growth to date. 08/06/18 10:50 Blood Blood Culture - Preliminary No growth to date. 08/05/18 00:50 Blood Blood Culture - Final Serratia marcescens CT lumbar spine w con HISTORY: 67 years-old Male continued back and leg pain r/o fluid collection acute low back and bilateral leg pain with recent postoperative changes of the lumbar spine. COMPARISON: Lumbar spine MRI 08/05/2018 TECHNIQUE: Multiple axial CT images of the lumbar spine were obtained without the use of IV contrast. A dose lowering technique was used consistent with the principals of GENEVA. FINDINGS: Postoperative changes redemonstrated with L3-L4, L4-L5 and L5 discectomy. Laminectomy changes are noted at L3-L5 with evidence of prior hardware removal at L5-S1. Transverse fracture noted about the posterior L3 vertebral body with 5 mm retropulsion. The degree of retropulsion has progressed. Acute fracture of the right L3 transverse process. The hardware appears intact. The remaining vertebral bodies appear unremarkable. Multilevel spondylitic spurring with facet arthrosis. Remote L1 compression deformity. Infiltration about the operative bed with increased peripherally hyperdense fluid collection measuring approximately 2.8 x 7.5 x 8.5 cm in AP, transverse and craniocaudal dimensions respectively. This collection is from the thecal sac by the posterior epidural fat. No definite epidural fluid collections identified. Bilateral pleural effusions are partially imaged. IMPRESSION: 1. Postoperative changes of the lumbar spine redemonstrated as above. 2. Increased size of a postoperative fluid collection about the operative bed with peripheral hyperdensity measuring up to 2.8 x 7.5 x 8.5 cm. No definite epidural fluid collection identified. 3. Acute fracture of the posterior L3 vertebral body with 5 mm retropulsion. No associated high-grade central canal stenosis. 4. Acute nondisplaced fracture involves the base of the right transverse process. The above report was generated using voice recognition software. It may contain grammatical, syntax or spelling errors.
--- NOTE | 2018-08-11 15:46 | Operative Report ---
Post Operative Report Pre & Post Diagnosis Operation Date: 08/07/18 15:15 <No data on this case meets the specified criteria> Operation Date: 08/11/18 13:45 Pre-Op Diagnosis: Epidural Abcess Post-Op Diagnosis: Epidural Abcess Procedure Operation Date: 08/07/18 15:15 <No data on this case meets the specified criteria> Operation Date: 08/11/18 13:45 Actual Procedures #1 I&D of the lumbar spine. #2 placement of stimulant and beads impregnated with vancomycin and gentamicin. Surgeon Bong Morales DO Pick Up Truck Driver None Estimated Blood Loss 50 Findings Consistent with Post-Op Diagnosis Specimens Cultures Description of Procedure Patient was met with preoperatively case discussed all questions addressed. After informed consent obtained patient was taken to the operative suite underwent intubation and placed in a prone position on the Chuck table on top of the Hunter frame. All bony prominences well-padded eyes inspected to ensure no external pressure placed upon but this point the lumbar spine was prepped and draped in a sterile fashion. Sharp dissection was performed down to the fascial layer. The fascia was then released. Evidence of a massive epidural hematoma with evidence of purulence was noted. Cultures were obtained. I opened the fascia completely and placed we irrigated the incision with several liters of normal saline. All necrotic tissue and hematoma was evacuated. I then placed 10 cc of stimulant beads impregnated with vancomycin and gentamicin throughout the wound. 15 round DOMINGA drain was then placed. Then closed the incision with subcutaneous 1-0 Vicryl 2-0 Vicryl and florentin for final skin closure. Sterile dressings placed. Patient was then taken to the ICU as we elected to continue with intubation. I attest to the content of the Intraoperative Record and any orders documented therein. Any exceptions are noted below.
[2018-08-11] MEDS ORDERED: LARYING-O-JET KIT (LTA) ONE (16:03)
--- NOTE | 2018-08-11 16:33 | Anesthesiology Progress Note ---
Date of Service August 11, 2018 Anesthesia Post Procedure Vital Signs Vital Signs: Temp Pulse Pulse Resp BP BP Pulse Ox 08/11/18 16:15 36.8 C 64 14 130/67 100 08/11/18 16:10 36.8 C 64 15 142/62 H 100 08/11/18 16:05 36.8 C 63 13 134/61 100 08/11/18 16:00 36.8 C 67 17 136/59 L 100 08/11/18 15:55 66 13 123/55 L 100 08/11/18 13:44 94 08/11/18 13:26 36.2 C L 64 16 115/59 L 100 08/11/18 09:25 64 134/74 08/11/18 07:28 36.8 C 66 13 152/64 H 99 08/10/18 23:00 36.7 C 71 18 108/63 98 Pain Intensity Back: Pain Intensity: 6 Notes Mental Status: see notes below Patient Amnestic to Procedure: Yes Nausea / Vomiting: see Notes below Pain: adequately controlled Airway Patency, RR, SpO2: stable & adequate (pt is intubated) BP & HR: stable & adequate Hydration State: stable & adequate Anesthetic Complications: see Notes below Notes: Pt had a difficult intubation in the OR with 3 attempts of intubation. 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 Unable to pass size #7.5 and #7.0 even with good view of VC using the glidescope for intubation (ETT would not advanced). ETT #6.5 was finally able to be placed through VC. In light of multiple intubation attempts with difficult placement of ETT and patient with h/o difficult intubation and multiple other comorbodities incuding CAD, ischemic CM and prior cardiac arrest, pt was not extubated at the end of urgent I&D of lumbar area. 8mg of IV decadron was given intraop to help with airway edema. Discussed case with Dr. Talbot, the motorcycle repair shop supervisor distance education director, who accepted the patient for management. Pt was transported to ICU on the monitor with 100% FiO2. Vital signs stable not on any pressors. Pt was placed on the ventilator by RT. Report was given to the ICU nurses and care was turned over to them.
--- NOTE | 2018-08-11 18:14 | Critical Care Consultation ---
Date of Consultation August 11, 2018 Assessment & Plan (1) Paraspinal abscess: The patient S/Post I&D of the lumbar spine. #2 placement of stimulant and beads impregnated with vancomycin and gentamicin. We will follow recommendation from Dr. Morales. (2) Serratia septicemia: Patient to continue on ertapenem, will follow further recommendations from infectious disease. (3) Bacteremia due to Gram-negative bacteria: Patient to continue on ertapenem, will follow further recommendations from infectious disease. (4) Acute respiratory failure with hypoxia: The patient was a difficult intubation as per anesthesia. Currently he remains on a ventilator and we are going to let him rest tonight and he was also given Decadron for possible trauma to the trachea. He is on CPAP titration and seems to be tolerating it very well. We will try to extubate him in the morning after weaning in the presence of anesthesia if he has tolerated the ventilator weaning overnight. (5) Chronic systolic heart failure: Overall remains stable on current plan of care. (6) Stage III chronic kidney disease: We will continue with current plan of care and monitor urine output. (7) Ischemic cardiomyopathy: We will continue with the Lasix as needed. I have discussed the case with anesthesia as well as with Dr. Morales. I have spent greater than 55 minutes of critical care time. History of Present Illness Reason for Consultation: The patient is intubated with respiratory failure. Patient is postoperative. Attending Physician: Juan Manning History of Present Illness pt admitted from rehab for increased back pain. pt has had complicated recent hosptial stay 07/25- 07/31. Initially admitted for increased low back pain, underwent spinal fusion on 07/25 - had post op chest pain, found to have NSTEMI on 07/26, underwent cath on 07/27 - severe CAD. Has AICD from sudden cardiac in 2011. Trop increased, up to 22 on 07/27. Was followed by cardiology and was d/c to rehab on 07/31. on 08/01 had increased pain and was re admitted. Given increased pain meds and steroids. Fever noted on 08/04 of 39.1, tmax today 38. Blood cultures done at 12 am 08/05 due to fever and are already growing GNR in 2/ sets. on Zosyn, started today. wbc 10.5. procalcitonin 1.1, crp 15. troponin 7. Cardio following, orhto following. on my exam patient is lethargic but arousable and appropriate. Denies f/c, currently afebrile. denies rigors. states back pain persists but is improved. denies abd pain, no n/v/d. no cp, sob, cough, rodriguez. no gu symptoms. CTA done in ER, negative for PE, no infiltrate, pulm edema noted. 08/04 echo - LVF severely reduced, no veg noted. no barrera. tolerating abx. The patient was diagnosed with Serratia septicemia: continue ertapenem, will require 6 weeks IV abx for suspected hardware infection. The patient is post I&D of the lumbar spine. #2 placement of stimulant and beads impregnated with vancomycin and gentamicin. According to anaesthesia, it was difficult intubation. Pt had a difficult intubation in the OR with 3 attempts of intubation. 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 Unable to pass size #7.5 and #7.0 even with good view of VC using the glidescope for intubation (ETT would not advanced). ETT #6.5 was finally able to be placed through VC. In light of multiple intubation attempts with difficult placement of ETT and patient with h/o difficult intubation and multiple other comorbodities incuding CAD, ischemic CM and prior cardiac arrest, pt was not extubated at the end of urgent I&D of lumbar area. 8mg of IV decadron was given intraop to help with airway edema. Currently patient is comfortable remains awake and is on a ventilator with FiO2 of 40% and is oxygenating at 99 200% and is not in any acute distress. He also follows simple commands and he is not complaining of any pain. Allergies Allergy/AdvReac Type Severity Reaction Status Date / Time No Known Allergies Allergy Verified 08/01/18 15:19 Home Medications Home Medications Medication Instructions Recorded Confirmed Type magnesium oxide 400 mg PO QAM #0 tab 11/27/11 08/01/18 History losartan 50 mg PO QAM #0 tab 05/26/12 08/01/18 History omega 1-xyy-ezr-fish oil [Fish Oil] 1 cap PO QAM #0 cap 05/26/12 08/01/18 History insulin detemir U-100 45 unit SUBCUT BID #0 12/10/13 08/01/18 History aspirin 325 mg PO QAM #0 tab 11/12/14 08/01/18 History atorvastatin 40 mg PO HS #0 tab 11/12/14 08/01/18 History coenzyme Q10 100 mg PO QAM #0 11/12/14 08/01/18 History finasteride [Proscar] 5 mg PO QAM #0 11/12/14 08/01/18 History furosemide [Lasix] 20 mg PO QAM #0 tab 11/12/14 08/01/18 History cholecalciferol (vitamin D3) 1,000 unit PO QAM #0 07/04/15 08/01/18 History insulin aspart U-100 10 - 50 unit SC TIDM #0 03/07/16 08/01/18 History metoprolol succinate [Toprol XL] 100 mg PO QAM #0 03/07/16 08/01/18 History metformin 1,000 mg PO BID 05/16/18 08/01/18 History cyanocobalamin (vitamin B-12) 1,000 mcg PO QAM 05/21/18 08/01/18 History [Vitamin B-12] vitamin B complex 1 tab PO QAM 07/22/18 08/01/18 History oxycodone 5 mg PO Q4H PRN #30 tab 07/31/18 08/01/18 Rx tramadol 50 mg PO Q4H PRN #30 tab 07/31/18 08/01/18 Rx Patient History Medical History Difficult airway for intubation ELECTRICAL CONTINUITY TESTER 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 Admitted [facility] 10/18/11 for onset of incapacitating cervical myelopathy. Spinal tap showed ELECTRICAL CONTINUITY TESTER Lyme disease, MRI showed severe spinal cord compression at C3-4 with myelomalacia and intramedullary mass. Pt had c-spine surgery, subsequent prolonged hospital admission, complicated post-op course. Difficult intubation Sudden cardiac Post-op 2011 [facility]. Now has ICD. Sleep apnea PT NOT CURRENTLY CPAP 2/2 recurrent sinus infections. WILL SEE SLEEP MEDICINE/DR. ARCHULETA LATE 2017 Diabetes mellitus, type 2 IDDM. Degenerative disc disease Chronic back pain CHRONIC PAIN IN LEFT LEG Ischemic cardiomyopathy EF WNL 11/2017 CAD (coronary artery disease) s/p triple CABG 2002 Full dentures (Acute) Obese (Acute) Heart disease (Acute) HTN (hypertension) (Acute) High cholesterol (Acute) Surgical History History of esophagogastroduodenoscopy (EGD) History of colonoscopy History of cardiac cath 2011 AT [facility] - UNSURE IF HE HAS STENTS. History of tracheostomy Hx of transurethral resection of prostate History of cataract extraction with lens replacement Hx of tonsillectomy (Acute) H/O cervical spine surgery (Acute) ACDI C3-4, C7 corpectomy, removal of C7 intramedullary mass. History of lumbar spinal fusion (Acute) S/P triple vessel bypass (Acute) [id number] Family History Other No pertinent family history Social History Communication Ability: Effective Beliefs That Will Affect Care: None marital status: Current Living Situation: Spouse Other Information That Helps Us Care for You: No Feels Safe at Home: Yes Safety Concerns: Feels Safe At This Time Smoking Status: Never smoker Hx Alcohol Use: No Hx Substance Use: No Review of Systems The review of system is unable to obtain because he is intubated and remains on a ventilator but when we asked him of any shortness of breath or pain and he denies any discomfort. Physical Exam Vital Signs (Past 24 Hours): Last Vital Signs Temp 36.8 C 08/11/18 16:23 Pulse 66 08/11/18 16:53 Resp 16 08/11/18 16:53 BP 125/56 L 08/11/18 16:53 Pulse Ox 100 08/11/18 16:53 Physical Exam: Constitutional: WD/WN, vitals as above comfortable; no acute distress. The patient remains intubated and follows simple commands. Eyes: PERRL, conjunctivae normal, anicteric sclerae ENMT: external ear and nose normal, oropharynx normal Neck: trachea midline, no thyromegaly neck nontender Respiratory: normal respiratory effort, lungs clear to auscultation normal percussion; no respiratory distress Cardiovascular: Rate/Rhythm: regular rate and regular rhythm Heart Sounds: normal S1 and normal S2; no gallop, no murmur and no cardiac rub Gastrointestinal (Abdomen): normal bowel sounds, soft, nontender, no hepatosplenomegaly Musculoskeletal: no cyanosis or clubbing, extremities motor strength 5/5 Spine: + lumbar spinal tenderness No spinal tenderness, no joint swelling or erythema Skin: no rashes, warm and dry no lesions Neurologic: moves all extremities and awake; no focal motor deficits Motor/Sensory: no sensory deficit Psychiatric: A+Ox3, euthymic affect Lymphatic: no cervical or axillary lymphadenopathy no inguinal lymphadenopathy Results & Data Diagnostic Findings Abnormal lab results 08/11/18 08/11/18 08/11/18 Range/Units 05:57 14:03 16:31 RBC 2.74 L (4.7-6.1) M/uL Hgb 7.9 L (14.0-18.0) g/dL Hct 26.0 L (42-52) % MCHC 30.4 L (32-36) g/dL RDW Std Deviation 52.8 H (36.4-46.3) fL RDW Coeff of Norbert 15.7 H (11.5-14.5) % POC Glucose 102 H (70-99) Antibody Screen POSITIVE A Crossmatch See Detail Medications Administered Current Inpatient Medications Acetaminophen (Tylenol) 650 mg PO Q4H PRN PRN Reason: pain/fever Stop: 08/31/18 18:49 Last Admin: 08/09/18 18:18 Dose: 650 mg Documented by: Aspirin (Ecotrin Ectab) [facility] Stop: 09/01/18 08:59 Last Admin: 08/11/18 09:22 Dose: Not Given Documented by: Atorvastatin Calcium (Lipitor) 40 mg PO [facility] Stop: 08/31/18 20:59 Last Admin: 08/10/18 22:27 Dose: 40 mg Documented by: Clopidogrel Bisulfate (Plavix) [facility] [place] Stop: 09/01/18 08:59 Last Admin: 08/11/18 09:22 Dose: Not Given Documented by: Cyanocobalamin (Vitamin B-12) 1,000 mcg [facility] [place] Stop: 09/01/18 08:59 Last Admin: 08/11/18 09:30 Dose: Not Given Documented by: Dextrose (Dextrose 50%) 25 - 50 ml IV UD PRN; Protocol PRN Reason: Hypoglycemia Protocol Stop: 08/31/18 19:33 Finasteride (Proscar) 5 mg PO QAM KAYLYNN Stop: 09/01/18 08:59 Last Admin: 08/11/18 09:30 Dose: 5 mg Documented by: Furosemide (Lasix) 40 mg PO QAM KAYLYNN Stop: 09/01/18 08:59 Last Admin: 08/11/18 09:28 Dose: 40 mg Documented by: Glucagon (Glucagen) 1 mg IM UD PRN; Protocol PRN Reason: Hypoglycemia Protocol Stop: 08/31/18 19:33 Glucose (Glucose 40%) 15 - 30 gm PO UD PRN; Protocol PRN Reason: Hypoglycemia Protocol Stop: 08/31/18 19:33 Last Admin: 08/03/18 21:15 Dose: 15 gm Documented by: Glucose (Dex4 Glucose) 4 - 8 tabs PO UD PRN; Protocol PRN Reason: Hypoglycemia Protocol Stop: 08/31/18 19:33 Ertapenem 1,000 mg/ Sodium (Chloride) 60 mls @ 100 mls/hr IV Q24H KAYLYNN Stop: 09/18/18 09:44 Last Infusion: 08/11/18 12:05 Dose: Infused Documented by: Acetaminophen (Ofirmev) 1,000 mg in 100 mls @ 400 mls/hr IV Q8H PRN PRN Reason: Pain or Fever Stop: 09/10/18 03:33 Last Infusion: 08/11/18 06:36 Dose: Infused Documented by: Sodium Chloride (Nss 250ml) 250 mls @ 75 mls/hr IV .Q3H20M PRN PRN Reason: For Transfusion Stop: 09/10/18 13:42 Insulin Aspart (Novolog Flexpen) 0 units SC Q6 KAYLYNN Stop: 09/10/18 05:59 Last Admin: 08/11/18 17:32 Dose: Not Given Documented by: Insulin Detemir (Levemir Flextouch) 15 units SQ BID KAYLYNN Stop: 09/10/18 08:59 Last Admin: 08/11/18 09:43 Dose: 15 units Documented by: Ioversol (Optiray 320 100ml) 93 ml IV ONCE PRN PRN Reason: Interaction Checking Stop: 08/14/18 12:01 Last Admin: 08/10/18 12:02 Dose: 93 ml Documented by: Losartan Potassium (Cozaar) 50 mg PO QAM [facility] Stop: 09/06/18 08:59 Last Admin: 08/11/18 09:27 Dose: 50 mg Documented by: Magnesium Oxide (Mag-Ox) 400 mg PO [facility] Stop: 09/01/18 08:59 Last Admin: 08/11/18 09:31 Dose: 400 mg Documented by: Methylnaltrexone [place] (Relistor) 12 mg SQ Q2D@0900 [facility] Stop: 09/08/18 09:44 Last Admin: 08/11/18 09:32 Dose: 12 mg Documented by: Metoprolol Succinate (Toprol Xl) 100 mg PO [facility] Stop: 09/08/18 09:29 Last Admin: 08/11/18 09:29 Dose: 100 mg Documented by: Miscellaneous (Carbohydrates For Hypoglycemia) 15 - 30 gm PO UD PRN PRN Reason: Hypoglycemia Treatment Stop: 08/31/18 19:33 Last Admin: 08/09/18 08:02 Dose: 15 gm Documented by: Miscellaneous (Remove Lidoderm Patch) 1 ea N/A [facility] Stop: 09/06/18 05:59 Last Admin: 08/11/18 09:22 Dose: 1 ea Documented by: Ondansetron HCl (Zofran) 4 mg IV Q6H PRN PRN Reason: Nausea Stop: 08/31/18 18:49 Ondansetron HCl (Zofran) 4 mg IV ONCE PRN PRN Reason: PACU Use Only-Nausea/Vomiting Stop: 08/11/18 18:36 Oxycodone HCl (Roxicodone Immediate Rel) 5 mg PO Q4H PRN PRN Reason: Pain Stop: 08/18/18 05:31 Last Admin: 08/05/18 23:13 Dose: 5 mg Documented by: Senna/Docusate Sodium (Senokot S) 2 tab PO BID [facility] Stop: 09/01/18 20:59 Last Admin: 08/11/18 09:28 Dose: Not Given Documented by: Sodium Biphosphate/Sodium Phosphate (Fleet Enema) 132 ml MI DAILY PRN PRN Reason: Constipation Stop: 09/01/18 11:01 Tramadol HCl (Ultram) 50 mg PO Q4H PRN PRN Reason: Pain Stop: 09/07/18 18:39 Last Admin: 08/10/18 13:27 Dose: 50 mg Documented by: Vitamin B Complex (Vitamin B Complex) 1 tab PO [facility] Stop: 09/01/18 08:59 Last Admin: 08/11/18 09:31 Dose: 1 tab Documented by: Vitamin D (Vitamin D3) 1,000 units PO [facility] Stop: 09/01/18 08:59 Last Admin: 08/11/18 09:30 Dose: Not Given Documented by:
[2018-08-11 18:57] LABS: Eosinophils # (auto) 0.01 K/uL (0-0.5); Eosinophils % (auto) 0.1 %; Hematocrit (blood only) 25.4 % (42-52); Hemoglobin 7.8 g/dL (14.0-18.0); Immature Granulocytes % (auto) 1.9 %; Lymphocytes # (auto) 0.47 K/uL (1.2-3.4); Lymphocytes % (auto) 4.4 %; Mean Corpuscular Hgb Conc 30.7 g/dL (32-36); Mean Corpuscular Volume 94.1 fL (80-100); Monocytes % (auto) 2.8 %; Neutrophils # (auto) 9.72 K/uL (1.4-6.5); Neutrophils % (auto) 90.8 %; Platelet Count 213 K/uL (130-400); RDW Coefficient of Variation 15.6 % (11.5-14.5); RDW Standard Deviation 53.5 fL (36.4-46.3)
[2018-08-11] MEDS: SODIUM CHLORIDE 0.9% 1000ML 1,000 ML IV SCH (19:00)
[2018-08-11 19:18] LABS: BUN Creatinine Ratio 35.2 (10-20); Calcium 7.9 mg/dl (8.5-10.1); Creatinine Clr Calc Pharmacy 134.5 ml/min; Est GFR (African American) 116.9; Est GFR (Non-African American) 100.8; Magnesium 2.2 mg/dl (1.8-2.4); Potassium 4.1 mmol/L (3.5-5.1)
[2018-08-11 19:19] LABS: Phosphorus 3.8 mg/dl (2.5-4.9)
[2018-08-11 19:25] LABS: Hypochromasia Present
[2018-08-11] MEDS: ATORVASTATIN 40 MG TAB PO SCH (21:09)
--- NOTE | 2018-08-11 22:58 | Hospitalist Progress Note ---
Date of Service August 11, 2018 Assessment & Plan (1) Gram negative sepsis: Due to paraspinal abscess Antibiotics were started due to bacteremia.. Cultures came back positive for gram negative bacilli: serratia M. Patient will be on ertapenem, placed on 08/07. Will likely require PICC line once cultures are back and are negative. Last fever was on 08/05. Patient had I&D of the lumbar spine. #2 placement of stimulant and beads impregnated with vancomycin and gentamicin. Will also continue with ertapenem. (2) Bacteremia due to Gram-negative bacteria: As noted above. (3) Post-operative pain: As noted above, will continue with ertapenem. (4) Constipation: Use Miralax PRN, the patient only had one small BM while here last week. Abdomen is distended but there are bowels sounds and patient is passing gas. Bowel regimen. Appears to be improving. will monitor. (5) Chronic systolic heart failure: Patient needed some intermittent Lasix on last admission. Still has some swelling, but mild. No shortness of breath to indicate pulmonary edema. On metoprolol x. since 08/09 - Monitor volume status - Appears hypervolemic.. (6) Stage III chronic kidney disease: - Monitor Cr while inpatient (7) Acute anemia: Had some blood loss last admission for surgery. Hgb is stable at 9.1 on admission. - Monitor hgb Hemoglobin is controlled. (8) Ischemic cardiomyopathy: Chronic systolic HF. 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 No discharges. - Monitor (10) Coronary artery disease: H/o 3 vessel CABG in 2001 at [facility] (DELATORRE to distal LAD, FERNANDO to Acute Marginal of RCA, Radial Artery Graft to LCx branch). Had NSTEMI after surgery during prior admission. Underwent cath with distal disease noted. No stent; treated medically. No current chest pain. - Continue aspirin and Plavix, statin therapy Possible demand ischemia with sepsis. (11) Diabetes mellitus, type 2: Continue Levemir. - Sliding scale with Novolog - Diabetic diet (12) Hypotension: monitor closely his BP. Improved with antibiotics. resolved. (13) NSTEMI (non-ST elevated myocardial infarction): Doubt this diagnosis, however will continue heparin at this time. Troponin bump could be from demand ischemia Resolved (14) Acute kidney injury: Patient creatinine bumped up. This is likely from the sepsis. Improved to .08 (15) DVT prophylaxis: was on heparin drip. now on heparin subq Spent 25 minutes in management of patient Subjective 67yo M w/ recent back surgery, re-presented due to worse back pain. Patient was seen after surgery. Patient is intubated and sedated. Patient's family is not in the room at time of exam. Constitutional: + fatigue and + weakness; no fever, no chills, no sweats, no body aches and no anorexia Respiratory: + dyspnea on exertion; no dyspnea, no pain on inspiration and no wheezing Musculoskeletal: + back pain (severe, 9 out of 10) Neurologic: + tremor(s) Physical Exam Vital Signs (Past 24 Hours): Last Vital Signs Temp 36.7 C 08/11/18 22:20 Pulse 63 08/11/18 22:20 Resp 18 08/11/18 21:04 BP 123/54 L 08/11/18 22:20 Pulse Ox 100 08/11/18 22:20 Physical Exam: Constitutional: WD/WN, vitals as above + obese, patient is intubated and sedated Neck: trachea midline, no thyromegaly Respiratory: normal respiratory effort, lungs clear to auscultation Cardiovascular: Rate/Rhythm: regular rate and regular rhythm, normal S1 and normal S2; no murmur Gastrointestinal (Abdomen): normal bowel sounds, soft, nontender, no hepatosplenomegaly Inspection/Auscultation: + abdomen remains distended Spine: unable to assess due to patient being intubated Extremities: extremities normal to inspection Skin: no rashes, warm and dry, lower extremity swelling Neurologic: PERRLA Psychiatric: sedated Lymphatic: no cervical or axillary lymphadenopathy
[2018-08-12] MEDS ORDERED: ACETAMINOPHEN 1,000 MG/100 ML VIAL IV PRN (03:13)
[2018-08-12] MEDS ORDERED: HYDROmorphone INJ 0.5 MG/0.5 ML SYR IM PRN (03:13)
[2018-08-12 04:34] LABS: Eosinophils # (auto) 0.01 K/uL (0-0.5); Eosinophils % (auto) 0.1 %; Hematocrit (blood only) 27.7 % (42-52); Hemoglobin 8.7 g/dL (14.0-18.0); Lymphocytes # (auto) 0.71 K/uL (1.2-3.4); Lymphocytes % (auto) 7.1 %; Mean Corpuscular Hgb Conc 31.4 g/dL (32-36); Mean Corpuscular Volume 92.3 fL (80-100); Mean Platelet Volume 9.3 fL (7.4-10.4); Monocytes # (auto) 0.71 K/uL (0.11-0.59); Monocytes % (auto) 7.1 %; Neutrophils # (auto) 8.32 K/uL (1.4-6.5); Neutrophils % (auto) 83.7 %; Platelet Count 228 K/uL (130-400); RDW Coefficient of Variation 15.9 % (11.5-14.5); RDW Standard Deviation 53.9 fL (36.4-46.3); White Blood Count 9.95 K/uL (4.8-10.8)
[2018-08-12 04:56] LABS: RBC Morphology Unremarkable
[2018-08-12 04:57] LABS: BUN Creatinine Ratio 38.1 (10-20); Calcium 7.8 mg/dl (8.5-10.1); Creatinine Clr Calc Pharmacy 140.8 ml/min; Est GFR (African American) 119.1; Est GFR (Non-African American) 102.7; Potassium 4.5 mmol/L (3.5-5.1)
[2018-08-12] MEDS: INSULIN ASPART 100 UNITS/ML 3 ML PEN SC SCH ×5 (06:22→22:42)
[2018-08-12] MEDS: SODIUM CHLORIDE 0.9% 1000ML 1,000 ML IV SCH ×2 (07:38→14:15)
--- NOTE | 2018-08-12 09:16 | Anesthesiology Progress Note ---
Date of Service August 12, 2018 Patient remains on ventilator in ICU post op. Vitals stable at this time. Anesthesia Post Procedure Vital Signs Vital Signs: Temp Pulse Pulse Pulse Resp BP BP 08/12/18 08:00 67 70 126/51 L 126/51 L 08/12/18 07:20 86 25 H 08/12/18 07:00 61 127/53 L 08/12/18 06:00 65 147/62 H 08/12/18 05:12 61 18 08/12/18 05:00 58 L 136/56 L 08/12/18 04:00 36.6 C 63 134/64 08/12/18 03:00 56 L 133/56 L 08/12/18 02:15 58 L 13 08/12/18 02:00 56 L 114/64 08/12/18 01:00 60 131/59 L 08/12/18 00:00 36.7 C 57 L 124/54 L 08/11/18 23:31 59 L 13 08/11/18 23:30 59 L 126/56 L 08/11/18 23:00 59 L 121/53 L 08/11/18 22:30 57 L 124/53 L 08/11/18 22:20 36.7 C 58 L 123/54 L 08/11/18 22:10 58 L 119/53 L 08/11/18 22:00 59 L 119/54 L 08/11/18 21:50 59 L 125/51 L 08/11/18 21:40 59 L 121/51 L 08/11/18 21:30 59 L 122/53 L 08/11/18 21:20 62 129/57 L 08/11/18 21:10 60 123/54 L 08/11/18 21:04 18 08/11/18 21:00 59 L 118/51 L 08/11/18 20:50 59 L 121/52 L 08/11/18 20:40 58 L 16 121/53 L 08/11/18 20:30 59 L 12 124/52 L 08/11/18 20:20 60 13 121/51 L 08/11/18 20:18 36.8 C 59 L 15 125/53 L 08/11/18 20:10 65 14 131/52 L 08/11/18 20:04 37.0 C 62 20 140/55 L 08/11/18 20:00 37.0 C 62 17 114/56 L 08/11/18 19:30 61 17 121/50 L 08/11/18 19:00 61 16 122/56 L 08/11/18 17:53 36.3 C L 62 16 08/11/18 17:35 36.4 C L 60 16 08/11/18 17:20 16 08/11/18 17:10 71 14 08/11/18 16:53 66 16 08/11/18 16:38 36.3 C L 68 16 08/11/18 16:23 36.8 C 63 15 08/11/18 16:15 36.8 C 64 14 08/11/18 16:10 36.8 C 64 15 08/11/18 16:05 36.8 C 63 13 08/11/18 16:00 36.8 C 67 17 08/11/18 15:55 66 13 08/11/18 13:44 08/11/18 13:26 36.2 C L 64 16 115/59 L 08/11/18 09:25 64 BP Pulse Ox 08/12/18 08:00 95 08/12/18 07:20 100 08/12/18 07:00 100 08/12/18 06:00 100 08/12/18 05:12 100 08/12/18 05:00 100 08/12/18 04:00 100 08/12/18 03:00 100 08/12/18 02:15 100 08/12/18 02:00 100 08/12/18 01:00 100 08/12/18 00:00 100 08/11/18 23:31 100 08/11/18 23:30 100 08/11/18 23:00 100 08/11/18 22:30 100 08/11/18 22:20 100 08/11/18 22:10 100 08/11/18 22:00 100 08/11/18 21:50 100 08/11/18 21:40 100 08/11/18 21:30 100 08/11/18 21:20 100 08/11/18 21:10 100 08/11/18 21:04 08/11/18 21:00 100 08/11/18 20:50 100 08/11/18 20:40 100 08/11/18 20:30 100 08/11/18 20:20 100 08/11/18 20:18 100 08/11/18 20:10 100 08/11/18 20:04 100 08/11/18 20:00 100 08/11/18 19:30 100 08/11/18 19:00 100 08/11/18 17:53 116/44 L 100 08/11/18 17:35 122/55 L 100 08/11/18 17:20 08/11/18 17:10 100 08/11/18 16:53 125/56 L 100 08/11/18 16:38 90 08/11/18 16:23 144/61 H 100 08/11/18 16:15 130/67 100 08/11/18 16:10 142/62 H 100 08/11/18 16:05 134/61 100 08/11/18 16:00 136/59 L 100 08/11/18 15:55 123/55 L 100 08/11/18 13:44 94 08/11/18 13:26 100 08/11/18 09:25 134/74 Pain Intensity Back: Pain Intensity: 0
[2018-08-12] MEDS: VITAMIN B COMPLEX TAB PO SCH (09:17)
[2018-08-12] MEDS: FINASTERIDE 5 MG TAB PO SCH (09:17)
[2018-08-12] MEDS: CLOPIDOGREL BISULFATE 75 MG TAB PO SCH (09:17)
[2018-08-12] MEDS: METOPROLOL SUCC 50MG EXT REL TAB PO SCH (09:17)
[2018-08-12] MEDS: ASPIRIN 81 MG ECTAB PO SCH (09:17)
[2018-08-12] MEDS: CYANOCOBALAMIN 500 MCG TABLET (VITAMIN B-12) PO SCH (09:17)
[2018-08-12] MEDS: LOSARTAN POTASSIUM 50 MG TAB PO SCH (09:17)
[2018-08-12] MEDS: CHOLECALCIFEROL 1,000 UNITS TAB PO SCH (09:18)
[2018-08-12] MEDS: FUROSEMIDE 40 MG TAB PO SCH (09:18)
[2018-08-12] MEDS: MAGNESIUM OXIDE 400 MG TAB PO SCH (09:18)
[2018-08-12] MEDS: DOCUSATE SODIUM/SENNA 50/8.6MG TAB PO SCH ×2 (09:26→20:11)
[2018-08-12] MEDS: INSULIN DETEMIR FLEXPEN/FLEX TOUCH 100 UNITS/ML 3ML SQ SCH ×3 (09:38→20:12)
[2018-08-12] MEDS: ERTAPENEM SODIUM 1,000 MG in SODIUM CHLORIDE 0.9% 50 ML IV SCH (10:24)
--- NOTE | 2018-08-12 11:41 | Orthopedic Progress Note ---
Date of Service August 12, 2018 Assessment & Plan (1) Paraspinal abscess: Patient status post I&D lumbar spine. Appears to be doing well this morning. Hope to get him to the orthopedic floor when okay with medicine and initiate therapy. Present on Admission?: Yes Subjective Patient is quite comfortable at this time. He is now extubated and without complaint. He denies any leg symptoms back pain is well controlled. Physical Exam Vital Signs (Past 24 Hours): Last Vital Signs Temp 36.6 C 08/12/18 04:00 Pulse 65 08/12/18 11:00 Resp 25 H 08/12/18 07:20 BP 135/58 L 08/12/18 11:00 Pulse Ox 100 08/12/18 11:00 Physical Exam: On exam he is sitting up in bed. He has good strength testing. Appears comfortable.
--- NOTE | 2018-08-12 11:45 | Critical Care Progress Note ---
Date of Service August 12, 2018 Assessment & Plan (1) Paraspinal abscess: The patient S/Post I&D of the lumbar spine. #2 placement of stimulant and beads impregnated with vancomycin and gentamicin. We will follow recommendation from Dr. Morales. (2) Serratia septicemia: Patient to continue on ertapenem, will follow further recommendations from infectious disease. (3) Bacteremia due to Gram-negative bacteria: Patient to continue on ertapenem, will follow further recommendations from infectious disease. (4) Acute respiratory failure with hypoxia: The patient was extubated this morning after a weaning trial and overall seems to be doing much better. He he is on nasal cannula O2 and oxygenating in the mid to high 90s. We have also tried to feed him and he tolerated p.o. intake very well. I have discussed with Dr. Morales and the patient can be transferred out this afternoon. (5) Chronic systolic heart failure: Overall remains stable on current plan of care. (6) Stage III chronic kidney disease: We will continue with current plan of care and monitor urine output. (7) Ischemic cardiomyopathy: We will continue with the Lasix as needed. I have discussed the case with Dr. Morales. I have spent greater than 35 minutes of clinical time. Subjective The patient post incision and drainage of his abscess. He was a difficult intubation but overall he did well this morning weaning on the ventilator and he was successfully extubated. Currently the patient remains on nasal cannula oxygen and is oxygenating in the mid to high 90s. He is alert awake and oriented and denies any distress. He was seen and examined on my morning rounds this morning. Patient denies having any headache or dizziness. Also denies having any shortness of breath cough or chest pain. Denies having any abdominal pain nausea vomiting. Overall he seems to be doing much better. He was also evaluated by the surgery Dr. Morales and recommended to transfer to the regular floor bed. Physical Exam Vital Signs (Past 24 Hours): Last Vital Signs Temp 36.6 C 08/12/18 04:00 Pulse 65 08/12/18 11:00 Resp 25 H 08/12/18 07:20 BP 135/58 L 08/12/18 11:00 Pulse Ox 100 08/12/18 11:00 Physical Exam: Constitutional: WD/WN, vitals as above comfortable; no acute distress. The patient was extubated this morning and seems to be doing much better now. He is also oxygenating well on his nasal cannula O2. Eyes: PERRL, conjunctivae normal, anicteric sclerae ENMT: external ear and nose normal, oropharynx normal Neck: trachea midline, no thyromegaly neck nontender Respiratory: normal respiratory effort, lungs clear to auscultation normal percussion; no respiratory distress Cardiovascular: Rate/Rhythm: regular rate and regular rhythm Heart Sounds: normal S1 and normal S2; no gallop, no murmur and no cardiac rub Gastrointestinal (Abdomen): normal bowel sounds, soft, nontender, no hepatosplenomegaly Musculoskeletal: no cyanosis or clubbing, extremities motor strength 5/5 Spine: + lumbar spinal tenderness No spinal tenderness, no joint swelling or erythema Skin: no rashes, warm and dry no lesions Neurologic: moves all extremities and awake; no focal motor deficits Motor/Sensory: no sensory deficit Psychiatric: A+Ox3, euthymic affect Lymphatic: no cervical or axillary lymphadenopathy no inguinal lymphadenopathy Results & Data Laboratory Results Abnormal lab results 08/11/18 08/11/18 08/11/18 Range/Units 14:03 16:31 18:41 RBC 2.70 L (4.7-6.1) M/uL Hgb 7.8 L (14.0-18.0) g/dL Hct 25.4 L (42-52) % MCHC 30.7 L (32-36) g/dL RDW Std Deviation 53.5 H (36.4-46.3) fL RDW Coeff of Norbert 15.6 H (11.5-14.5) % Immature Gran # (Auto) 0.20 H (0.00-0.02) K/uL Neut # (Auto) 9.72 H (1.4-6.5) K/uL Lymph # (Auto) 0.47 L (1.2-3.4) K/uL Sanders # (Auto) (0.11-0.59) K/uL BUN (7-18) mg/dl BUN/Creatinine Ratio (10-20) Glucose (70-99) mg/dl POC Glucose 102 H (70-99) Calcium (8.5-10.1) mg/dl Antibody Screen POSITIVE A Crossmatch See Detail 08/11/18 08/11/18 08/11/18 Range/Units 18:41 21:19 23:51 RBC (4.7-6.1) M/uL Hgb (14.0-18.0) g/dL Hct (42-52) % MCHC (32-36) g/dL RDW Std Deviation (36.4-46.3) fL RDW Coeff of Norbert (11.5-14.5) % Immature Gran # (Auto) (0.00-0.02) K/uL Neut # (Auto) (1.4-6.5) K/uL Lymph # (Auto) (1.2-3.4) K/uL Sanders # (Auto) (0.11-0.59) K/uL BUN 24 H (7-18) mg/dl BUN/Creatinine Ratio 35.2 H (10-20) Glucose 105 H (70-99) mg/dl POC Glucose 119 H 122 H (70-99) Calcium 7.9 L (8.5-10.1) mg/dl Antibody Screen Crossmatch 08/12/18 08/12/18 08/12/18 Range/Units 04:16 04:16 06:07 RBC 3.00 L (4.7-6.1) M/uL Hgb 8.7 L (14.0-18.0) g/dL Hct 27.7 L (42-52) % MCHC 31.4 L (32-36) g/dL RDW Std Deviation 53.9 H (36.4-46.3) fL RDW Coeff of Norbert 15.9 H (11.5-14.5) % Immature Gran # (Auto) 0.20 H (0.00-0.02) K/uL Neut # (Auto) 8.32 H (1.4-6.5) K/uL Lymph # (Auto) 0.71 L (1.2-3.4) K/uL Sanders # (Auto) 0.71 H (0.11-0.59) K/uL BUN 24 H (7-18) mg/dl BUN/Creatinine Ratio 38.1 H (10-20) Glucose 108 H (70-99) mg/dl POC Glucose 107 H (70-99) Calcium 7.8 L (8.5-10.1) mg/dl Antibody Screen Crossmatch Medications Administered Current Inpatient Medications Acetaminophen (Tylenol) 650 mg PO Q4H PRN PRN Reason: pain/fever Stop: 08/31/18 18:49 Last Admin: 08/09/18 18:18 Dose: 650 mg Documented by: Aspirin (Ecotrin Ectab) 81 mg PO [facility] Stop: 09/01/18 08:59 Last Admin: 08/12/18 09:17 Dose: 81 mg Documented by: Atorvastatin Calcium (Lipitor) 40 mg PO [facility] Stop: 08/31/18 20:59 Last Admin: 08/11/18 21:09 Dose: Not Given Documented by: Clopidogrel Bisulfate (Plavix) 75 mg PO [facility] Stop: 09/01/18 08:59 Last Admin: 08/12/18 09:17 Dose: 75 mg Documented by: Cyanocobalamin (Vitamin B-12) 1,000 mcg PO [facility] Stop: 09/01/18 08:59 Last Admin: 08/12/18 09:17 Dose: 1,000 mcg Documented by: Dextrose (Dextrose 50%) 25 - 50 ml IV UD PRN; Protocol PRN Reason: Hypoglycemia Protocol Stop: 08/31/18 19:33 Finasteride (Proscar) 5 mg PO [facility] Stop: 09/01/18 08:59 Last Admin: 08/12/18 09:17 Dose: 5 mg Documented by: Furosemide (Lasix) 40 mg PO [facility] Stop: 09/01/18 08:59 Last Admin: 08/12/18 09:18 Dose: 40 mg Documented by: Glucagon (Glucagen) 1 mg IM UD PRN; Protocol PRN Reason: Hypoglycemia Protocol Stop: 08/31/18 19:33 Glucose (Glucose 40%) 15 - 30 gm PO UD PRN; Protocol PRN Reason: Hypoglycemia Protocol Stop: 08/31/18 19:33 Last Admin: 08/03/18 21:15 Dose: 15 gm Documented by: Glucose (Dex4 Glucose) 4 - 8 tabs PO UD PRN; Protocol PRN Reason: Hypoglycemia Protocol Stop: 08/31/18 19:33 Heparin Sodium (Beef Lung) (Heparin Sod 10 Unit/Ml Flush) 5 ml FLUSH PRN PRN PRN Reason: Flush Stop: 09/11/18 02:06 Ertapenem 1,000 mg/ Sodium (Chloride) 60 mls @ 100 mls/hr IV Q24H KAYLYNN Stop: 09/18/18 09:44 Last Infusion: 08/12/18 11:07 Dose: Infused Documented by: Acetaminophen (Ofirmev) 1,000 mg in 100 mls @ 400 mls/hr IV Q8H PRN PRN Reason: Pain or Fever Stop: 09/10/18 03:33 Last Infusion: 08/11/18 06:36 Dose: Infused Documented by: Sodium Chloride (Nss 1000ml) 1,000 mls @ 75 mls/hr IV .[id number] KAYLYNN Stop: 09/10/18 18:14 Last Admin: 08/12/18 07:38 Dose: 75 mls/hr Documented by: Sodium Chloride (Nss 250ml) 250 mls @ 15 mls/hr IV .[id number] PRN PRN Reason: For Transfusion Stop: 09/10/18 19:41 Insulin Aspart (Novolog Flexpen) 0 units SC Q6 [facility] Stop: 09/10/18 05:59 Last Admin: 08/12/18 11:32 Dose: 1 units Documented by: Insulin Detemir (Levemir Flextouch) 15 units SQ BID KAYLYNN Stop: 09/10/18 08:59 Last Admin: 08/12/18 09:38 Dose: 15 units Documented by: Ioversol (Optiray 320 100ml) 93 ml IV ONCE PRN PRN Reason: Interaction Checking Stop: 08/14/18 12:01 Last Admin: 08/10/18 12:02 Dose: 93 ml Documented by: Losartan Potassium (Cozaar) 50 mg PO QAM [facility] Stop: 09/06/18 08:59 Last Admin: 08/12/18 09:17 Dose: 50 mg Documented by: Magnesium Oxide (Mag-Ox) 400 mg PO QAM [facility] Stop: 09/01/18 08:59 Last Admin: 08/12/18 09:18 Dose: 400 mg Documented by: Methylnaltrexone [place] (Relistor) 12 mg SQ Q2D@0900 [facility] Stop: 09/08/18 09:44 Last Admin: 08/11/18 09:32 Dose: 12 mg Documented by: Metoprolol Succinate (Toprol Xl) 100 mg PO QAM [facility] Stop: 09/08/18 09:29 Last Admin: 08/12/18 09:17 Dose: 100 mg Documented by: Miscellaneous (Carbohydrates For Hypoglycemia) 15 - 30 gm PO UD PRN PRN Reason: Hypoglycemia Treatment Stop: 08/31/18 19:33 Last Admin: 08/09/18 08:02 Dose: 15 gm Documented by: Miscellaneous (Remove Lidoderm Patch) 1 ea N/A [facility] Stop: 09/06/18 05:59 Last Admin: 08/12/18 09:42 Dose: 1 ea Documented by: Ondansetron HCl (Zofran) 4 mg IV Q6H PRN PRN Reason: Nausea Stop: 08/31/18 18:49 Oxycodone HCl (Roxicodone Immediate Rel) 5 mg PO Q4H PRN PRN Reason: Pain Stop: 08/18/18 05:31 Last Admin: 08/05/18 23:13 Dose: 5 mg Documented by: Senna/Docusate Sodium (Senokot S) 2 tab PO BID [facility] Stop: 09/01/18 20:59 Last Admin: 08/12/18 09:26 Dose: 2 tab Documented by: Sodium Biphosphate/Sodium Phosphate (Fleet Enema) 132 ml NC DAILY PRN PRN Reason: Constipation Stop: 09/01/18 11:01 Tramadol HCl (Ultram) 50 mg PO Q4H PRN PRN Reason: Pain Stop: 09/07/18 18:39 Last Admin: 08/10/18 13:27 Dose: 50 mg Documented by: Vitamin B Complex (Vitamin B Complex) 1 tab PO [facility] Stop: 09/01/18 08:59 Last Admin: 08/12/18 09:17 Dose: 1 tab Documented by: Vitamin D (Vitamin D3) 1,000 units PO [facility] Stop: 09/01/18 08:59 Last Admin: 08/12/18 09:18 Dose: 1,000 units Documented by:
[2018-08-12] MEDS: OXYCODONE HCL IR 5 MG TAB (IMMEDIATE RELEASE) PO PRN (14:13)
[2018-08-12] MEDS: ATORVASTATIN 40 MG TAB PO SCH (20:11)
[2018-08-12] MEDS: TRAMADOL HCL 50 MG TABLET PO PRN (20:11)
[2018-08-12] MEDS ORDERED: Nursing to Pharmacy Communication ONE (20:51)
--- NOTE | 2018-08-12 23:52 | Hospitalist Progress Note ---
Date of Service August 12, 2018 Assessment & Plan (1) Gram negative sepsis: Due to paraspinal abscess Antibiotics were started due to bacteremia.. Cultures came back positive for gram negative bacilli: serratia M. Patient will be on ertapenem, placed on 08/07. Will likely require PICC line once cultures are back and are negative. Last fever was on 08/05. Patient had I&D of the lumbar spine. #2 placement of stimulant and beads impregnated with vancomycin and gentamicin. Will also continue with ertapenem for a total of 6 weeks. (2) Bacteremia due to Gram-negative bacteria: As noted above. (3) Post-operative pain: As noted above, will continue with ertapenem. (4) Constipation: Use Miralax PRN, the patient only had one small BM while here last week. Abdomen is distended but there are bowels sounds and patient is passing gas. Bowel regimen. Appears to be improving. will monitor. (5) Chronic systolic heart failure: Patient needed some intermittent Lasix on last admission. Still has some swelling, but mild. No shortness of breath to indicate pulmonary edema. On metoprolol x. since 08/09 - Monitor volume status - Appears euvolemic. (6) Stage III chronic kidney disease: - Monitor Cr while inpatient (7) Acute anemia: Had some blood loss last admission for surgery. Hgb is stable at 9.1 on admission. - Monitor hgb Hemoglobin is controlled. (8) Ischemic cardiomyopathy: Chronic systolic HF. 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 No discharges. - Monitor (10) Coronary artery disease: H/o 3 vessel CABG in 2001 at [facility] (DELATORRE to distal LAD, FERNANDO to Acute Marginal of RCA, Radial Artery Graft to LCx branch). Had NSTEMI after surgery during prior admission. Underwent cath with distal disease noted. No stent; treated medically. No current chest pain. - Continue aspirin and Plavix, statin therapy Possible demand ischemia with sepsis. (11) Diabetes mellitus, type 2: Continue Levemir. - Sliding scale with Novolog - Diabetic diet (12) Hypotension: monitor closely his BP. Improved with antibiotics. resolved. (13) NSTEMI (non-ST elevated myocardial infarction): Doubt this diagnosis, however will continue heparin at this time. Troponin bump could be from demand ischemia Resolved (14) Acute kidney injury: Patient creatinine bumped up. This is likely from the sepsis. Resolved. (15) DVT prophylaxis: was on heparin drip. now on heparin subq Spent 25 minutes in management of patient Update: Patient was extubated later in AM and transferred to med/surg. Patient will require a PICC line and total of 6 weeks of antibiotics. Subjective 67yo M w/ recent back surgery, re-presented due to worse back pain. Patient was seen after surgery. Patient remains intubated and sedated. Patient's family is not in the room at time of exam. Constitutional: + fatigue and + weakness; no fever, no chills, no sweats, no body aches and no anorexia Respiratory: + dyspnea on exertion; no dyspnea, no pain on inspiration and no wheezing Musculoskeletal: + back pain (severe, 9 out of 10) Neurologic: + tremor(s) Physical Exam Vital Signs (Past 24 Hours): Last Vital Signs Temp 37.5 C 08/12/18 23:06 Pulse 65 08/12/18 23:06 Resp 16 08/12/18 23:06 BP 117/67 08/12/18 23:06 Pulse Ox 96 08/12/18 23:06 Physical Exam: Constitutional: WD/WN, vitals as above + obese, patient is intubated and sedated Neck: trachea midline, no thyromegaly Respiratory: normal respiratory effort, lungs clear to auscultation Cardiovascular: Rate/Rhythm: regular rate and regular rhythm, normal S1 and normal S2; no murmur Gastrointestinal (Abdomen): normal bowel sounds, soft, nontender, no hepatosplenomegaly Inspection/Auscultation: + abdomen remains distended Spine: unable to assess due to patient being intubated Extremities: extremities normal to inspection Skin: no rashes, warm and dry, lower extremity swelling Neurologic: PERRLA Psychiatric: sedated Lymphatic: no cervical or axillary lymphadenopathy
[2018-08-13] MEDS: SODIUM CHLORIDE 0.9% 1000ML 1,000 ML IV SCH (03:00)
[2018-08-13] MEDS: TRAMADOL HCL 50 MG TABLET PO PRN ×2 (05:42→11:47)
[2018-08-13] MEDS: OXYCODONE HCL IR 5 MG TAB (IMMEDIATE RELEASE) PO PRN ×2 (07:34→14:45)
--- NOTE | 2018-08-13 08:12 | Orthopedic Progress Note ---
Date of Service August 13, 2018 Assessment & Plan (1) Paraspinal abscess: This time we will maintain the DOMINGA drain another 24 hours anticipate removal tomorrow. He may undergo physical therapy as tolerated. Present on Admission?: Yes Subjective Patient states his back pain is improving. He has no leg pain. Physical Exam Vital Signs (Past 24 Hours): Last Vital Signs Temp 36.8 C 08/13/18 08:00 Pulse 68 08/13/18 08:00 Resp 14 08/13/18 08:00 BP 118/60 08/13/18 08:00 Pulse Ox 94 08/13/18 08:00 Physical Exam: Patient is in bed at this time. Is good strength testing lower extremities.
[2018-08-13] MEDS: VITAMIN B COMPLEX TAB PO SCH (09:30)
[2018-08-13] MEDS: CYANOCOBALAMIN 500 MCG TABLET (VITAMIN B-12) PO SCH (09:30)
[2018-08-13] MEDS: ASPIRIN 81 MG ECTAB PO SCH (09:30)
[2018-08-13] MEDS: METOPROLOL SUCC 50MG EXT REL TAB PO SCH (09:30)
[2018-08-13] MEDS: LOSARTAN POTASSIUM 50 MG TAB PO SCH (09:30)
[2018-08-13] MEDS: CHOLECALCIFEROL 1,000 UNITS TAB PO SCH (09:30)
[2018-08-13] MEDS: FINASTERIDE 5 MG TAB PO SCH (09:30)
[2018-08-13] MEDS: FUROSEMIDE 40 MG TAB PO SCH (09:30)
[2018-08-13] MEDS: CLOPIDOGREL BISULFATE 75 MG TAB PO SCH (09:30)
[2018-08-13] MEDS: METHYLNALTREXONE BROMIDE 12 MG/0.6 ML VIAL SQ SCH (09:31)
--- NOTE | 2018-08-13 09:37 | Hospitalist Progress Note ---
Date of Service August 13, 2018 Assessment & Plan (1) Gram negative sepsis: Due to paraspinal abscess Antibiotics were started due to bacteremia.. Cultures came back positive for gram negative bacilli: serratia M. Patient will be on ertapenem, placed on 08/07. Will likely require PICC line once cultures are back and are negative. Last fever was on 08/05. Patient had I&D of the lumbar spine. #2 placement of stimulant and beads impregnated with vancomycin and gentamicin. Will also continue with ertapenem for a total of 6 weeks. (2) Bacteremia due to Gram-negative bacteria: As noted above. (3) Post-operative pain: As noted above, will continue with ertapenem. (4) Constipation: Use Miralax PRN, the patient only had one small BM while here last week. Abdomen is distended but there are bowels sounds and patient is passing gas. Bowel regimen. Appears to be improving. will monitor. (5) Chronic systolic heart failure: Patient needed some intermittent Lasix on last admission. Still has some swelling, but mild. No shortness of breath to indicate pulmonary edema. On metoprolol x. since 08/09 - Monitor volume status - Appears euvolemic. (6) Stage III chronic kidney disease: - Monitor Cr while inpatient (7) Acute anemia: Had some blood loss last admission for surgery. Hgb is stable at 9.1 on admission. - Monitor hgb Hemoglobin is controlled. (8) Ischemic cardiomyopathy: Chronic systolic HF. 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 No discharges. - Monitor (10) Coronary artery disease: H/o 3 vessel CABG in 2001 at [facility] (DELATORRE to distal LAD, FERNANDO to Acute Marginal of RCA, Radial Artery Graft to LCx branch). Had NSTEMI after surgery during prior admission. Underwent cath with distal disease noted. No stent; treated medically. No current chest pain. - Continue aspirin and Plavix, statin therapy Possible demand ischemia with sepsis. (11) Diabetes mellitus, type 2: Continue Levemir. - Sliding scale with Novolog - Diabetic diet (12) Hypotension: resolved. (13) Acute kidney injury: Patient creatinine bumped up. This is likely from the sepsis. Resolved. (14) DVT prophylaxis: heparin subq (15) Demand ischemia: Troponin bump from demand ischemia (16) Urinary retention: pt is on proscar will add flomax to try to help urination Subjective Patient's back pain is improved his biggest problem he needs to be urinary retention and difficulty urinating. His Rojas catheter was removed based on nursing driven protocol however he was bladder scanned for 600 mL and unable to void. Straight cath did relieve him of this retention. The patient is reconsidering whether to have a Rojas placed and follow-up with urology. He previously is followed up with Dr. Raphael Fernandez but has not seen him for some time due to scheduling issues. We are adding tamsulosin this evening on 08/13 in addition of his Proscar to try to help his urination Review of Systems ROS: well nourished well developed. No double vision blurry vision No problems with speech or swallowing No palpitations, chest pain or pressure No Wheezing or breathing issues No abdominal pain nausea vomiting diarrhea changes in appetite or weight Urinary retention Focused low back pain at the surgical site No skin rashes or oral lesions No unusual bruising or bleeding No focused back pain or numbness or loss of strength No changes in memory or confusion Physical Exam Vital Signs (Past 24 Hours): Last Vital Signs Temp 36.8 C 08/13/18 08:00 Pulse 68 08/13/18 08:00 Resp 14 08/13/18 08:00 BP 118/60 08/13/18 08:00 Pulse Ox 94 08/13/18 08:00 The patient appeared well nourished and normally developed. Vital signs as documented. Head exam is unremarkable. normocephalic, atraumatic Neck is without jugular venous distension, thyromegaly, or lymphademopathy Lungs are clear to auscultation and percussion. Cardiac exam reveals Rhythm is regular. First and second heart sounds normal. Abdominal exam reveals normal bowel sounds, no masses, no organomegaly Extremities are mildly edematous and both pedal pulses are present Neurologic exam is A&Ox3, no focal deficits, strength is equal bilateral but patient has challenges walking due to some instability to his trunk muscles Psychologically seems neither anxious or depressed Skin is warm Dry without bruises or lesions
[2018-08-13] MEDS: INSULIN ASPART 100 UNITS/ML 3 ML PEN SC SCH ×4 (09:39→21:20)
[2018-08-13] MEDS: INSULIN DETEMIR FLEXPEN/FLEX TOUCH 100 UNITS/ML 3ML SQ SCH ×2 (09:40→21:19)
[2018-08-13] MEDS: DOCUSATE SODIUM/SENNA 50/8.6MG TAB PO SCH ×2 (11:48→21:24)
[2018-08-13] MEDS: MAGNESIUM OXIDE 400 MG TAB PO SCH (11:48)
[2018-08-13] MEDS: ERTAPENEM SODIUM 1,000 MG in SODIUM CHLORIDE 0.9% 50 ML IV SCH (11:51)
[2018-08-13] MEDS ORDERED: TAMSULOSIN HCL 0.4 MG CAP PO SCH (21:00)
[2018-08-13] MEDS: ATORVASTATIN 40 MG TAB PO SCH (21:20)
[2018-08-14] MEDS: CYANOCOBALAMIN 500 MCG TABLET (VITAMIN B-12) PO SCH (09:03)
[2018-08-14] MEDS: VITAMIN B COMPLEX TAB PO SCH (09:03)
[2018-08-14] MEDS: CHOLECALCIFEROL 1,000 UNITS TAB PO SCH (09:03)
[2018-08-14] MEDS: FUROSEMIDE 40 MG TAB PO SCH (09:03)
[2018-08-14] MEDS: CLOPIDOGREL BISULFATE 75 MG TAB PO SCH (09:03)
[2018-08-14] MEDS: ASPIRIN 81 MG ECTAB PO SCH (09:03)
[2018-08-14] MEDS: MAGNESIUM OXIDE 400 MG TAB PO SCH (09:03)
[2018-08-14] MEDS: FINASTERIDE 5 MG TAB PO SCH (09:03)
[2018-08-14] MEDS: LOSARTAN POTASSIUM 50 MG TAB PO SCH (09:04)
[2018-08-14] MEDS: METOPROLOL SUCC 50MG EXT REL TAB PO SCH (09:04)
[2018-08-14] MEDS: INSULIN DETEMIR FLEXPEN/FLEX TOUCH 100 UNITS/ML 3ML SQ SCH (09:07)
[2018-08-14] MEDS: INSULIN ASPART 100 UNITS/ML 3 ML PEN SC SCH ×2 (09:07→13:22)
[2018-08-14] MEDS: TRAMADOL HCL 50 MG TABLET PO PRN (09:10)
[2018-08-14] MEDS: DOCUSATE SODIUM/SENNA 50/8.6MG TAB PO SCH (09:10)
[2018-08-14] MEDS: ERTAPENEM SODIUM 1,000 MG in SODIUM CHLORIDE 0.9% 50 ML IV SCH (10:32)
[2018-08-14] MEDS: ACETAMINOPHEN 325 MG TAB PO PRN (12:19)
--- NOTE | 2018-08-14 17:20 | Discharge Summary ---
Date of Service August 14, 2018 Admission HPI Per Admitting Provider 67 yo male with complicated medical history of CABG, stents, persistent angina, combined systolic and diastolic HF, ischemic cardiomyopathy, insulin dependent diabetes and recent history of lumbar spine surgery, presents today with intractable pain. The past was just discharged on 07/31, one day prior to his presentation. He had an uncomplicated lumbar decompression and fusion on last admission. However, his post op course was complicated by an NSTEMI. He underwent heart catheterization that showed a 99% occlsion, opted for medical therapy given the patient's recent back surgery. He reports that prior to disc harge he was able to stand and take a few steps with his walker. He says that his midline back pain was not this intense. He said that pain is incredibly severe, difficult to find position of comfort. He has decreased ROM and decreased strength in the legs due to the pain. Prior to his lumbar surgery, he was experiencing radicular pain that went to his left hip and down his left leg. The lumbar decompression resolved this pain. He has not had any fever or chills, no bowel or bladder incontinence, no weakness or paralysis in his legs. The pain is over the midline incision. No purulent drainage has been seen at home. Patient and his are concerned, it did not take this long to recover from prior spine surgery. Discussed that he may have been slowed down in recovery due to NSTEMI. However, that would not lead to increased pain. He denies falling or trauma to the spine. He has been trying Ultram and oxycodone for pain, no success. Principal Diagnosis lumbar discitis, possible osteomyelitis and abscess s/p I&D urinary retention resolved Discharge Exam Constitutional well developed and average body habitus Eyes no conjunctival abnormality and no scleral abnormality Neck normal visual inspection and trachea midline Respiratory normal respiratory effort; no respiratory distress Auscultation: lungs clear to auscultation bilaterally Cardiovascular RRR, no murmur, no edema Gastrointestinal (Abdomen) normal bowel sounds, soft, nontender, no hepatosplenomegaly Discharge Data Allergies Allergy/AdvReac Type Severity Reaction Status Date / Time No Known Allergies Allergy Verified 08/01/18 15:19 Consultations 08/01/18 17:08 ED Decision to Admit Stat 08/01/18 18:50 Consult Case Management - Discharge Planning Routine Consult Orthopedic Surgery Routine 08/04/18 08:14 Consult Cardiology Routine 08/05/18 13:40 Consult Infectious Diseases Routine 08/11/18 16:23 Consult Case Management - Discharge Planning Routine 08/11/18 16:24 Consult Wildlife Technician Stat Procedures Performed Operation Date: 08/07/18 15:15 <No data on this case meets the specified criteria> Operation Date: 08/11/18 13:45 Actual Procedures p Incision and Drainage Lumbar Spine(Not Applicable) - Bong Morales DO Ordered Studies 08/05/18 01:00 CT angio chest dissec wo/w con Urgent 08/05/18 15:02 CT lumbar spine wo con Urgent 08/10/18 11:27 CT lumbar spine w con Urgent Hospital Course (1) Gram negative sepsis: Due to paraspinal abscess Antibiotics were started due to bacteremia.. Cultures came back positive for gram negative bacilli: serratia M. Patient will be on ertapenem, placed on 08/07. via PICC line Last fever was on 08/05. Patient had I&D of the lumbar spine. and placement of stimulant and beads impregnated with vancomycin and gentamicin. Will also continue with ertapenem for a total of 6 weeks. (2) Bacteremia due to Gram-negative bacteria: As noted above. (3) Post-operative pain: As noted above, will continue with ertapenem. (4) Constipation: Use Miralax PRN, (5) Chronic systolic heart failure: Patient needed some intermittent Lasix on last admission. Still has some swelling, but mild. No shortness of breath to indicate pulmonary edema. On metoprolol x. since 08/09 - Monitor volume status - Appears euvolemic. (6) Stage III chronic kidney disease: - Monitor Cr while inpatient (7) Acute anemia: Had some blood loss last admission for surgery. Hgb is stable at 9.1 on admission. (8) Ischemic cardiomyopathy: Chronic systolic HF. (9) ICD (implantable cardioverter-defibrillator) in place: Inserted in 11/2011 after cardiac arrest after prior C-spine surgery. No discharges. - Monitor (10) Coronary artery disease: H/o 3 vessel CABG in 2001 at [facility] (DELATORRE to distal LAD, FERNANDO to Acute Marginal of RCA, Radial Artery Graft to LCx branch). Had NSTEMI after surgery during prior admission. Underwent cath with distal disease noted. No stent; treated medically. No current chest pain. - Continue aspirin and Plavix, statin therapy Possible demand ischemia with sepsis. (11) Diabetes mellitus, type 2: Continue Levemir. - Sliding scale with Novolog - Diabetic diet (12) Hypotension: resolved. (13) Acute kidney injury: Patient creatinine bumped up. This is likely from the sepsis. Resolved. (14) DVT prophylaxis: heparin subq (15) Demand ischemia: Troponin bump from demand ischemia (16) Urinary retention: pt is on proscar will add flomax to try to help urination Total Time Total Time Spent Total Time Spent (In Minutes): greater than 30 minutes were required to prepare discharge Discharge Plan Discharge Items Patient Disposition: Transfer Halfway Fac Reason For Visit: INTRACTABLE BACK PAIN Discharge Diagnosis: lumbar osteomyelitis, urinary retention Discharge Goals: Decrease discomfort, Diagnostic testing and Improve disease control Activity: As commented below Activity Comment: as per PT/OT recommendations Non-emergency contact: Primary Care Provider and Surgeon Call non-emergency contact if: you have any medication questions Diet: Carb Consistent or DM2 Addtl Provider Instructions: Please coordinate urology follow up for BPH and urinary retention symptoms Prescriptions: New clopidogrel 75 mg Tablet 75 mg PO QAM Qty: 30 RF: 0 aspirin [Ecotrin Low Strength] 81 mg Tablet,Delayed Release (Dr/Ec) 81 mg PO QAM Qty: 30 RF: 0 tamsulosin 0.4 mg Capsule 0.4 mg PO HS Qty: 3 RF: 0 sennosides-docusate sodium [Senna with Docusate Sodium] 8.6-50 mg Tablet 2 tab PO BID Qty: 3 RF: 0 ertapenem 1 gram recon soln 1 gm IV DAILY 35 Days RF: 0 furosemide 40 mg tablet 40 mg PO DAILY Qty: 30 RF: 0 Continued magnesium oxide 400 mg Capsule 400 mg PO QAM Qty: 0 RF: 0 losartan 50 mg Tablet 50 mg PO QAM Qty: 0 RF: 0 omega 2-ljj-ijz-fish oil [Fish Oil] 1,000 mg (120 mg-180 mg) Capsule 1 cap PO QAM Qty: 0 RF: 0 atorvastatin 40 mg Tablet 40 mg PO HS Qty: 0 RF: 0 finasteride [Proscar] 5 mg Tablet 5 mg PO QAM Qty: 0 RF: 0 coenzyme Q10 100 mg Capsule 100 mg PO QAM Qty: 0 RF: 0 cholecalciferol (vitamin D3) 1,000 unit Capsule 1,000 unit PO QAM Qty: 0 RF: 0 metoprolol succinate [Toprol XL] 100 mg Tablet Extended Release 24 Hr 100 mg PO QAM Qty: 0 RF: 0 insulin aspart U-100 100 unit/mL Insulin Pen 10 - 50 unit SC TIDM Qty: 0 RF: 0 cyanocobalamin (vitamin B-12) [Vitamin B-12] 1,000 mcg Tablet 1,000 mcg PO QAM RF: 0 vitamin B complex Tablet 1 tab PO QAM RF: 0 metformin 1,000 mg Tablet 1,000 mg PO BID RF: 0 tramadol 50 mg Tablet 50 mg PO Q4H PRN (Reason: Pain, Moderate) Qty: 30 RF: 0 oxycodone 5 mg Tablet 5 mg PO Q4H PRN (Reason: Pain (Scale Score 7-10)) Qty: 30 RF: 0 Changed insulin detemir U-100 100 unit/mL (3 mL) Insulin Pen 15 unit subcut BID Qty: 15 RF: 0 Discontinued aspirin 325 mg Tablet 325 mg PO QAM Qty: 0 RF: 0 Stand-Alone Forms: [facility] Discharge Orders: Discharge Order (Routine); Ordered 08/14/18 Ordered By: Leno Stewart Skilled Items Patient informed of condition?: Yes DNR: No Discharge Level of Care: Acute rehab Communicable Disease: No Discharge Prognosis: Stable Admission Data Admit Date/Time: 08/04/18 09:42 Attending Provider: Leno Stewart Admit Provider: Tai Burr Primary Care Provider: Christiano Alvarez Other Providers: Malik Fernandez ; Bong Morales ; Tai Burr ; Christiano Shen ; Serenity Guzman ; Juan Manning Service: Medical Other Interventions: Discharge Summary Assessment (RN) Last Done: 08/14/18 14:25 DC Date/Time DO NOT enter until pt leaves facility: 08/14/18 15:50
--- NOTE | 2018-08-18 13:49 | Coding Query ---
CODING QUERY To promote full compliance with coding requirements relating to patient care, provider participation is requested in all cases of glass artist uncertainty. Please assist us with the question(s) below: Coding Question(s): Patient postop spinal fusion 07/25 readmitted with spinal abscess. To OR for I*D and implant antibiotic beads. Please document the etiology of the spinal abscess if known or suspected. Thank you ! Matti Sauer HEAV[employer] MEDIA OPERATOR [facility] Physician's Response(s): post operative infection at surgical site Principal Diagnosis: "that condition established after study, to be chiefly responsible for occasioning the admission of the patient to the hospital for care." Co-Existing Principal Diagnosis: "when two or more diagnoses equally meet the criteria for principal diagnosis as determined by the circumstances of admission, diagnostic work up, and/or therapy provided, and the Alphabetic Index, Tabular List, or another coding guideline does not provide sequencing direction, any one of the diagnoses may be sequenced first." "When the physician has documented what appears to be a current diagnosis in the body of the record, but has not included the diagnosis in the final diagnostic statement, the physician should be asked whether the diagnosis should be added." ([facility] 2 QTR90. p3-4) FRED
== END 2018-08-14 15:50 | disposition home health service (06) | DRG 862 ==
LOC: 3W 13:36 → ED 13:36 → SUATTDRO 17:55 → 3W 18:28 → SUATTDRO 08-04 09:42 → 2S 08-04 10:34 → 3N 08-09 18:00 → 1E 08-11 15:47 → 3N 08-12 12:52

== ENCOUNTER 2018-09-03 14:38 | Inpatient (IN) ==
[2018-09-03] MEDS ORDERED: SODIUM CHLORIDE 0.9% 500 ML IV SCH (15:45)
--- NOTE | 2018-09-03 16:02 | XRay Report ---
XR chest 1V portable CLINICAL HISTORY: Chest Pain dyspnea COMPARISON STUDY: 08/05/2018 FINDINGS: PICC catheter place in the superior vena cava. No evidence of pneumothorax. Mild stable car diomegaly. Prior median sternotomy. Lungs are considered clear. IMPRESSION: PICC catheter placed in the superior vena cava. No evidence for pneumothorax. The lungs appear clear. The above report was generated using voice recognition software. It may contain grammatical, syntax or spelling errors. Electronically signed by: Samuel Lindo M.D. 09/03/2018 4:01 PM
[2018-09-03 16:10] LABS: Basophils # (auto) 0.02 K/uL (0-0.2); Basophils % (auto) 0.1 %; Eosinophils # (auto) 0.07 K/uL (0-0.5); Eosinophils % (auto) 0.5 %; Hematocrit (blood only) 30.2 % (42-52); Hemoglobin 9.5 g/dL (14.0-18.0); Immature Granulocytes % (auto) 0.7 %; Lymphocytes % (auto) 7.5 %; Mean Corpuscular Hgb Conc 31.5 g/dL (32-36); Mean Corpuscular Volume 86.3 fL (80-100); Mean Platelet Volume 8.9 fL (7.4-10.4); Monocytes # (auto) 1.44 K/uL (0.11-0.59); Monocytes % (auto) 9.8 %; Neutrophils # (auto) 11.91 K/uL (1.4-6.5); Neutrophils % (auto) 81.4 %; Platelet Count 283 K/uL (130-400); RDW Coefficient of Variation 15.5 % (11.5-14.5); RDW Standard Deviation 49.6 fL (36.4-46.3); White Blood Count 14.64 K/uL (4.8-10.8)
[2018-09-03 16:28] LABS: Albumin Level 2.5 gm/dl (3.4-5.0); BUN Creatinine Ratio 30.6 (10-20); Calcium 8.9 mg/dl (8.5-10.1); Creatinine Clr Calc Pharmacy 85.4 ml/min; Est GFR (African American) 94.6; Est GFR (Non-African American) 81.6; Magnesium 1.6 mg/dl (1.8-2.4); Potassium 3.8 mmol/L (3.5-5.1)
[2018-09-03 16:33] LABS: Albumin Globulin Ratio 0.6 (0.9-2); Bilirubin,Total 0.4 mg/dl (0.2-1); Globulin 4.5 gm/dl (2.5-4.0); INR 1.2 (0.9-1.1); Phosphorus 2.8 mg/dl (2.5-4.9); Prothrombin Time 11.9 Seconds (9.0-12.0); Troponin I 0.021 ng/ml (0-0.045)
[2018-09-03] MEDS ORDERED: OPTIRAY 320 125ml IV PRN (17:37)
--- NOTE | 2018-09-03 17:42 | CT Scan Report ---
CT head/brain wo con CLINICAL HISTORY: Bilateral lower extremity weakness. Recent epidural abscess. Incoherent patient. COMPARISON STUDY: 10/19/2011 TECHNIQUE: Axial CT of the brain is performed from the vertex to the skull base. IV contrast was not administered for this examination. A dose lowering technique was utilized adhering to the principles of ALARA. CT DOSE: 2606.70 mGy.cm FINDINGS: No intra or extra-axial mass lesions are visualized. There is no CT evidence of acute cortical infarc tion. There is no evidence of midline shift. There is no acute hemorrhage. No calvarial fractures ar e visualized. There are patchy white matter hypodensities likely on a small vessel basis. There is mild ventricular dilatation, likely secondary to volume loss. This is increased slightly whe n compared the prior 2011 study. There is a right mastoid effusion. IMPRESSION: 1. Large right mastoid effusion 2. No acute intracranial findings. Electronically signed by: Stevan Betancourt M.D. 09/03/2018 5:41 PM
--- NOTE | 2018-09-03 17:58 | CT Scan Report ---
CT abd pelvis IV con only CLINICAL HISTORY: Bilateral lower extremity weakness. History of recent epidural abscess. COMPARISON STUDY: July 27, 2018 TECHNIQUE: The patient was scanned in a dynamic helical fashion during intravenous administration 119 cc of Optiray 320. A dose lowering technique was utilized adhering to the principles of ALARA. CT DOSE: FINDINGS: Lower chest: The heart is mildly enlarged. A pacemaker is visualized. There are minor dependent atele ctatic changes. Liver: There is a very subtle left lobe anterior hypodensity measuring approximately 2 cm. This is ad jacent the falciform ligament and potentially represents focal fat. This is difficult to visualize th e prior noncontrast study. Gallbladder: Unremarkable. Spleen: The spleen is mildly enlarged measuring 14 cm. Pancreas: Unremarkable. Adrenal glands: Unremarkable. Kidneys: There is a horseshoe kidney. There are 2 renal cysts the largest of which measures 19 mm. Bowel: There are no transition zones indicate bowel obstruction. There is no evidence of acute divert iculitis. There are no findings to indicate acute appendicitis. Peritoneum: There is no intraperitoneal free air or abdominal ascites. There is very mild stranding w ithin the retroperitoneum bilaterally Vasculature: The abdominal aorta is normal in course and caliber. Adenopathy: None. Pelvic viscera: There is a joint Rojas catheter. There is a mildly thick-walled bladder. Gas in the b ladder is likely iatrogenic. Skeletal structures: Postsurgical changes involve the lumbar spine. There is a prominent posterior fl uid collection with multiple radiopaque pledgets. IMPRESSION: 1. No evidence of bowel obstruction. No evidence of free air 2. Horseshoe kidney 3. Mild splenomegaly 4. Subtle left lobe hepatic hypodensity, possibly representing focal fat adjacent the falciform ligam ent 5. Postsurgical changes present within the lumbar spine. Large posterior fluid collection containing multiple radiopaque pledgets. Electronically signed by: Stevan Betancourt M.D. 09/03/2018 5:57 PM
--- NOTE | 2018-09-03 18:01 | CT Scan Report ---
HEAD & NECK CTA HISTORY: Bilateral lower extremity weakness. TECHNIQUE: Multiaxial CT images of the head were performed following the intravenous administration o f contrast to evaluate the major cerebral vessels. Multiaxial CT images of the neck were also perform ed following the intravenous administration of contrast to evaluate the major cervical vessels. Maxim um intensity projection images were also obtained. A dose lowering technique was utilized adhering to the principles of ALARA. COMPARISON: Head CT 09/03/2018. Chest CT 08/05/2018. FINDINGS: There is no mass, hematoma, midline shift, or acute infarct. Visualized intracranial internal carotid arteries, distal vertebral arteries, and basilar artery are widely patent. There is no significant s tenosis, occlusion, or aneurysm seen within the bilateral ACAs, MCAs, or content creation manager. The major dural venous sinuses are patent. There is a persistent left posterior circulation. This is considered to be a normal variant. Moderate calcified plaque within the bilateral carotid siphons. The aortic arch and proximal great vessels are widely patent. There is no significant stenosis, occ lusion, or dissection identified within the bilateral common carotid, left internal carotid, or verte bral arteries. Mild narrowing within the takeoff of the right internal carotid artery of less than 50 %. The lung apices are clear. Anterior cervical discectomy and fusion at C3-C4. The hardware appears intact. There is also anterior cervical discectomy and fusion at C6-T1 with interbody bone grafts. Th e left T1 screw is dislodged and is seen anterior to the T2 vertebral body. This results in mass effe ct along the adjacent esophagus. Evaluation for epidural abscess is essentially nondiagnostic on this CT examination. Pacemaker wires are noted. Prevertebral soft tissues are intact. Mild calcified plaq ue within the bilateral carotid siphons. IMPRESSION: 1. No significant stenosis, occlusion, or aneurysm within the [place]. 2. No significant stenosis, occlusion, or dissection identified within the common carotid, left inter nal carotid or vertebral arteries. 3. Less than 50% focal narrowing at the takeoff of the right internal carotid artery. 4. Anterior cervical discectomy and fusion at C6-T1. The left T1 screw is dislodged and is seen anter ior to the T2 vertebral body. This results in mass effect along the adjacent esophagus. Electronically signed by: Frankie Barrow M.D. 09/03/2018 5:59 PM
[2018-09-03 18:10] LABS: Appearance Urine Clear (Clear); Bilirubin Urine Negative (Negative); Blood Urine Negative (Negative); Color Urine Yellow; Glucose Urine UA Negative (Negative); Ketones Urine Negative (Negative); Leukocyte Esterase Urine Negative (Negative); Nitrite Urine Negative (Negative); Protein Urine Negative (Negative); Specific Gravity Urine 1.035 (1.000-1.030); Urobilinogen Urine Negative (Negative); pH Urine 6.5 (4.5-7.5)
--- NOTE | 2018-09-03 20:27 | History & Physical Report ---
Date of Service September 03, 2018 Assessment & Plan (1) Weakness of lower extremity: 67 y/o M with a complex medical history including CAD, sudden cardiac , combined CHF, DM II, HTN, HLD, ANTONIO, chronic anemia, multiple spinal surgeries. The pt was admitted for spinal decompression 07/31/18. The surgery was complicated by a post-op OK and then a paraspinal abscess for which he required readmission and debridement. He had Vanc/Gent bead implantation and was placed on a 6 week course of Ertapenem for Seratia which was cultured from the wound. He is currently at a rehab facility and has been exhibiting functional decline per his . Over the past week, he has had progressive lower extremity weakness, L lower back pain, urinary hesitancy and has exhibited a degree of confusion and slurred speech. He has not reported fevers or rigors, LE numbness or fecal incontinence. He is a poor historian, however, his is present at bedside to provide the preceding information. Imaging obtained in the ER included a CT head, CTA head and neck and aan abdominal CT. There were no findings of interest on the cranial imaging. The abdominal CT demonstrated a large posterior fluid collection containing multiple radiopaque pledgets which represent the implanted antibiotic beads. Labs are notable for leukocytosis, stable anemia and protein malnutrition. The pt required catheter placement for urinary retention on arrival. After discussion with the orthopedic service, the pt will be admitted for additional evaluation and may possibly need decompression as he is exhibiting lower extremity deficits and urinary retention. 1) LE weakness and lower back pain - fluid collection on CT - does not have fevers, however, leukocytosis is present. We will provide a dose of steroids and cont Ertapenem. the pt will be evaluated by the ortho spine service. He is high risk for any procedure and we will therefore consult cardiology for paige-op optimization. The pt is NPO to allow for a procedure AM if deemed necessary. 2) AMS, slurred speech - Likely metabolic as a CT/CTA does not show any areas of concern. This may be owing to narcotic use or potentially infection. 3) CAD - no evidence of ACS - will need to continue ASA, Plavix, statin, B angy - in any event, he has been taking both ASA and Plavix and DC would not have immediate benefit in terms of potential blood loss unless intervention was postponed for a few days. 4) DM II - placed on a SS and Lantus 5) HTN/HLD - cont Metoprolol and Atorvastatin - Lasix and Losartan held 6) CHF - volume status bears monitoring as we will provide ivf and hold Lasix and his ARB presently 7) Protein malnutrition - this will need to be addressed prior to DC as it can affect healing 8) The pt has chronic sinusitis. There is a large mastoid effusion on CT. ENT referral on DC would be appopriate. Full code - SCDs Total time for this admit including review of labs, meds, imaging, records - discussion with pt, and ER attending - 48 min Present on Admission?: Yes History of Present Illness Chief Complaint: Lower extrem weakness, urinary retention, AMS Primary Care Provider: Jose A Solomon 67 y/o M with a complex medical history including CAD, sudden cardiac , combined CHF, DM II, HTN, HLD, ANTONIO, chronic anemia, multiple spinal surgeries. The pt was admitted for spinal decompression 07/31/18. The surgery was complicated by a post-op OK and then a paraspinal abscess for which he required readmission and debridement. He had Vanc/Gent bead implantation and was placed on a 6 week course of Ertapenem for Seratia which was cultured from the wound. He is currently at a rehab facility and has been exhibiting functional decline per his . Over the past week, he has had progressive lower extremity weakness, L lower back pain, urinary hesitancy and has exhibited a degree of confusion and slurred speech. He has not reported fevers or rigors, LE numbness or fecal incontinence. He is a poor historian, however, his is present at bedside to provide the preceding information. Imaging obtained in the ER included a CT head, CTA head and neck and aan abdominal CT. There were no findings of interest on the cranial imaging. The abdominal CT demonstrated a large posterior fluid collection containing multiple radiopaque pledgets which represent the implanted antibiotic beads. Labs are notable for leukocytosis, stable anemia and protein malnutrition. The pt required catheter placement for urinary retention on arrival. After discussion with the orthopedic service, the pt will be admitted for additional evaluation and may possibly need decompression as he is exhibiting lower extremity deficits and urinary retention. 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 Does not smoke or drink Family: Noncontributory to current complaint Allergies Allergy/AdvReac Type Severity Reaction Status Date / Time No Known Allergies Allergy Verified 08/01/18 15:19 Home Medications Home Medications Medication Instructions Recorded Confirmed Type magnesium oxide 400 mg PO QAM #0 tab 11/27/11 09/03/18 History losartan 50 mg PO QAM #0 tab 05/26/12 09/03/18 History omega 5-qyp-bqu-fish oil [Fish Oil] 1 cap PO QAM #0 cap 05/26/12 09/03/18 History atorvastatin 40 mg PO HS #0 tab 11/12/14 09/03/18 History coenzyme Q10 100 mg PO QAM #0 11/12/14 09/03/18 History finasteride [Proscar] 5 mg PO QAM #0 11/12/14 09/03/18 History insulin aspart U-100 10 - 50 unit SC TIDM #0 03/07/16 09/03/18 History metoprolol succinate [Toprol XL] 100 mg PO QAM #0 03/07/16 09/03/18 History metformin 1,000 mg PO BID 05/16/18 09/03/18 History vitamin B complex 1 tab PO QAM 07/22/18 09/03/18 History aspirin [Ecotrin Low Strength] 81 mg PO QAM #30 tab 08/14/18 09/03/18 Rx clopidogrel 75 mg PO QAM #30 tab 08/14/18 09/03/18 Rx ertapenem 1 gm IV DAILY 35 Days ea 08/14/18 08/26/18 Rx furosemide 40 mg PO DAILY #30 tab 08/14/18 09/03/18 Rx sennosides-docusate sodium [Senna 2 tab PO BID #3 tab 08/14/18 09/03/18 Rx with Docusate Sodium] tamsulosin 0.4 mg PO HS #3 cap 08/14/18 09/03/18 Rx acetaminophen 650 mg PO Q6H PRN 08/26/18 09/03/18 History bisacodyl [Dulcolax (bisacodyl)] 10 mg IA DAILY PRN 08/26/18 09/03/18 History cholecalciferol (vitamin D3) 08/26/18 History [Vitamin D3] cyanocobalamin (vitamin B-12) 1,000 mcg PO DAILY 08/26/18 09/03/18 History [Vitamin B-12] [id number] ea PO 08/26/18 History [Insta-Glucose] glucagon (human recombinant) mg 08/26/18 History [Glucagon Emergency Kit (human)] magnesium hydroxide [Milk of 30 ml PO DAILY PRN 08/26/18 09/03/18 History Magnesia] oxycodone 10 mg PO Q6H PRN 08/26/18 09/03/18 History sodium phosphates 118 ml IA DAILY PRN 08/26/18 09/03/18 History fentanyl 1 patch TRANSDERMAL Q72H 09/03/18 09/03/18 History insulin detemir U-100 7 unit SUBCUT BID 09/03/18 09/03/18 History levofloxacin [Levaquin] 750 mg PO DAILY 09/03/18 09/03/18 History Past Med/Surg History Social History Preferred Language: Colombian Communication Ability: Impaired Communication Ability Comment: disoriented at times 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 Beliefs That Will Affect Care: Roman Catholic marital status: Current Living Situation: Spouse and Shelter Current Living Situation Comment: currenlty at [facility] for rehab s/p lumbar surgery Feels Safe at Home: Yes Safety Concerns: Feels Safe At This Time Smoking Status: Never smoker Hx Alcohol Use: No Hx Substance Use: No Review of Systems Cannot obtain reliable histroy from pt - reports progressive LE wekaness - cannot support weight, lower back pain, confusion and slurred speech Physical Exam Vital Signs (Past 24 Hours): Last Vital Signs Temp 36.5 C 09/03/18 18:29 Pulse 90 09/03/18 18:29 Resp 18 03/27/19 18:29 BP 113/62 09/03/18 18:29 Pulse Ox 95 09/03/18 18:29 Physical Exam: General: Overweight, elderly male - slightly somnolent and speech is difficult to comprehend - responds appropriately and can follow commands ENT: No erythema or exudates, no thrush Eyes: SERVANDO, EOMI Head and neck: Normocephalic, atraumatic, No JVD, neck is supple. Chest/heart: Nontender, S1,2, RRR, no murmurs, no gallops Lungs: CTAB, no wheezing or crackles Abdomen: Nontender, nondistended, BS+ Neuro: Proximal lower ext weakness is present on the R and probably on the L as well, however, active motion is limited by lower back pain. Sensation is maintained BL and in the perineum. Musculoskeletal: No joint inflammation, muscle tenderness Skin: No acute rashes or ulcers - the lumbar surgical site appears to have healed well Extremities: No clubbing, cyanosis, edema Results & Data Diagnostic Findings CTA: 1. No significant stenosis, occlusion, or aneurysm within the [place]. 2. No significant stenosis, occlusion, or dissection identified within the common carotid, left internal carotid or vertebral arteries. 3. Less than 50% focal narrowing at the takeoff of the right internal carotid artery. 4. Anterior cervical discectomy and fusion at C6-T1. The left T1 screw is dislodged and is seen anterior to the T2 vertebral body. This results in mass effect along the adjacent esophagus. CT head: 1. Large right mastoid effusion 2. No acute intracranial findings. CT abdomen: 1. No evidence of bowel obstruction. No evidence of free air 2. Horseshoe kidney 3. Mild splenomegaly 4. Subtle left lobe hepatic hypodensity, possibly representing focal fat adjacent the falciform ligament 5. Postsurgical changes present within the lumbar spine. Large posterior fluid collection containing multiple radiopaque pledgets.
--- NOTE | 2018-09-03 21:32 | Emergency Department Note ---
Entered by Jessica Del Real acting as a scribe for History of Present Illness General Chief complaint: Leg Weakness, Bilateral Time Seen by Provider: 09/03/18 15:19 Source: patient Limitations: no limitations History of Present Illness Provider complaint: leg weakness Onset (ago): week(s) (2.5) Location: lower extremity, left and right Radiation: non-radiation Maximum Pain Intensity: 2 Associated symptoms: + denies other symptoms (abdominal pain); no fever/chills a nd no nausea/vomiting Treatments prior to arrival: none The patient is a 67 year old male who presents to the Emergency Room with complaints of leg weakness that began 2.5 weeks prior to arrival. The patient states that he feels bloated but denies any fevers, nausea, vomiting, or abdominal pain. The patient states he urinates in his brief (despite having luna catheter). Patient is a poor historian. Per [facility] staff, patient's bilateral lower extremity weakness has progressively worsened since his arrival, where he initially was able to stand with some assistance he is now only minimally able to move his lower extremities. Additionally during this period he did develop urinary retention and a Luna catheter was subsequently placed. Previous Records: The patient underwent lumbar decompression infusion on 07/25. The patient was found to have a NSTEMI on 07/26 and had a catheterization on 07/27. The patient developed a fever on 08/04 and grew GNR. The patient ultimately underwent I&D for epidural abscess and placement of vancomycin/gentamicin peldgets. The patient was discharged on 08/14 to rehab. The patient has a history of AICD. Home Medications Home Medications Medication Instructions Recorded Confirmed Type magnesium oxide 400 mg PO QAM #0 tab 11/27/11 09/03/18 History losartan 50 mg PO QAM #0 tab 05/26/12 09/03/18 History omega 0-yvw-ziy-fish oil [Fish Oil] 1 cap PO QAM #0 cap 05/26/12 09/03/18 History atorvastatin 40 mg PO HS #0 tab 11/12/14 09/03/18 History coenzyme Q10 100 mg PO QAM #0 11/12/14 09/03/18 History finasteride [Proscar] 5 mg PO QAM #0 11/12/14 09/03/18 History insulin aspart U-100 10 - 50 unit SC TIDM #0 03/07/16 09/03/18 History metoprolol succinate [Toprol XL] 100 mg PO QAM #0 03/07/16 09/03/18 History metformin 1,000 mg PO BID 05/16/18 09/03/18 History vitamin B complex 1 tab PO QAM 07/22/18 09/03/18 History aspirin [Ecotrin Low Strength] 81 mg PO QAM #30 tab 08/14/18 09/03/18 Rx clopidogrel 75 mg PO QAM #30 tab 08/14/18 09/03/18 Rx ertapenem 1 gm IV DAILY 35 Days ea 08/14/18 08/26/18 Rx furosemide 40 mg PO DAILY #30 tab 08/14/18 09/03/18 Rx sennosides-docusate sodium [Senna 2 tab PO BID #3 tab 08/14/18 09/03/18 Rx with Docusate Sodium] tamsulosin 0.4 mg PO HS #3 cap 08/14/18 09/03/18 Rx acetaminophen 650 mg PO Q6H PRN 08/26/18 09/03/18 History bisacodyl [Dulcolax (bisacodyl)] 10 mg WA DAILY PRN 08/26/18 09/03/18 History cholecalciferol (vitamin D3) 08/26/18 History [Vitamin D3] cyanocobalamin (vitamin B-12) 1,000 mcg PO DAILY 08/26/18 09/03/18 History [Vitamin B-12] jvkfepvs-icgdeoh-vwdbxtv ea PO 08/26/18 History [Insta-Glucose] glucagon (human recombinant) mg 08/26/18 History [Glucagon Emergency Kit (human)] magnesium hydroxide [Milk of 30 ml PO DAILY PRN 08/26/18 09/03/18 History Magnesia] oxycodone 10 mg PO Q6H PRN 08/26/18 09/03/18 History sodium phosphates 118 ml WA DAILY PRN 08/26/18 09/03/18 History fentanyl 1 patch TRANSDERMAL Q72H 09/03/18 09/03/18 History insulin detemir U-100 7 unit SUBCUT BID 09/03/18 09/03/18 History levofloxacin [Levaquin] 750 mg PO DAILY 09/03/18 09/03/18 History Allergies Allergy/AdvReac Type Severity Reaction Status Date / Time No Known Allergies Allergy Verified 08/01/18 15:19 Past Med/Surg History Medical History Difficult airway for intubation 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 Admitted [facility] 10/18/11 for onset of incapacitating cervical myelopathy. 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 Pt had c-spine surgery, subsequent prolonged hospital admission, complicated post-op course. Difficult intubation Sudden cardiac Post-op 2011 [facility]. Now has ICD. Sleep apnea PT NOT CURRENTLY CPAP 2/2 recurrent sinus infections. WILL SEE SLEEP MEDICINE/DR. ARCHULETA LATE 2017 Diabetes mellitus, type 2 IDDM. Degenerative disc disease Chronic back pain CHRONIC PAIN IN LEFT LEG Ischemic cardiomyopathy EF WNL 11/2017 CAD (coronary artery disease) s/p triple CABG 2002 Full dentures (Acute) Obese (Acute) Heart disease (Acute) HTN (hypertension) (Acute) High cholesterol (Acute) Surgical History History of esophagogastroduodenoscopy (EGD) History of colonoscopy History of cardiac cath 2011 AT [facility] - UNSURE IF HE HAS STENTS. History of tracheostomy Hx of transurethral resection of prostate History of cataract extraction with lens replacement Hx of tonsillectomy (Acute) H/O cervical spine surgery (Acute) ACDI C3-4, C7 corpectomy, removal of C7 intramedullary mass. History of lumbar spinal fusion (Acute) S/P triple vessel bypass (Acute) [facility], 2002 Family History Other No pertinent family history Social History Preferred Language: Cymro Communication Ability: Impaired Communication Ability Comment: disoriented at times Social Service Liaison Required: No Beliefs That Will Affect Care: Shinto marital status: Current Living Situation: Spouse and Alf Current Living Situation Comment: currenlty at SNF for rehab s/p lumbar surgery Feels Safe at Home: Yes Safety Concerns: Feels Safe At This Time Smoking Status: Never smoker Hx Alcohol Use: No Hx Substance Use: No Review of Systems See HPI for pertinent positives & negatives. and A total of 10 systems reviewed and were otherwise negative See HPI for pertinent positives & negatives. A total of 10 systems reviewed and were otherwise negative. Physical Exam Vital Signs Vital Signs - 24 hr 09/03/18 14:31 09/03/18 16:09 09/03/18 18:29 Temperature 37.1 C 36.5 C Temperature Source Oral Oral Sepsis Recent Fever Within 48 Hours No Sepsis New/Unexplained Change in Mental Status No Sepsis Action Taken by Nursing No Action Required Pulse Rate 93 H Pulse Rate [Apical] 87 90 Pulse Rhythm [Apical] Regular Respiratory Rate 20 25 H 18 Respiratory Effort / Characteristics Non-Labored Spontaneous Non-Labored Non-Labored Spontaneous Respiratory Depth Normal Normal Normal Respiratory Pattern Regular Regular Blood Pressure 111/69 Blood Pressure [Left Arm] 114/65 113/62 Blood Pressure Mean 83 Blood Pressure Mean [Left Arm] 81 79 Blood Pressure Position Lying Blood Pressure Position [Left Arm] Sitting Lying Pulse Oximetry 98 98 95 Oxygen Delivery Method Room Air Room Air Room Air 09/03/18 20:00 09/03/18 20:09 09/03/18 21:19 Temperature Temperature Source Sepsis Recent Fever Within 48 Hours Sepsis New/Unexplained Change in Mental Status Sepsis Action Taken by Nursing Pulse Rate Pulse Rate [Apical] 87 Pulse Rhythm [Apical] Respiratory Rate 16 Respiratory Effort / Characteristics Non-Labored Spontaneous Spontaneous Respiratory Depth Normal Respiratory Pattern Regular Regular Blood Pressure Blood Pressure [Left Arm] 126/62 Blood Pressure Mean Blood Pressure Mean [Left Arm] 83 Blood Pressure Position Blood Pressure Position [Left Arm] Lying Pulse Oximetry 97 Oxygen Delivery Method Room Air Room Air Room Air GENERAL: Awake, alert, chronically ill-appearing, in no distress. HENT: Normocephalic, atraumatic. Oropharynx with dry mucous membranes and otherwise unremarkable. EYES: Normal conjunctiva. Sclera non-icteric. NECK: Supple. No nuchal rigidity. FROM. No JVD. RESPIRATORY: Clear to auscultation. CARDIAC: Regular rate, normal rhythm. Extremities warm and well perfused. Pulses equal. ABDOMEN: Soft, non-distended. No tenderness to palpation. No rebound or guarding. No masses. RECTAL: Deferred. MUSCULOSKELETAL: Chest examination reveals no tenderness. There is no CVA tenderness to palpation. LOWER EXTREMITIES: Calves are equal size bilaterally and non-tender. No discoloration. NEURO: 5/5 and SILT strength in bilateral upper extremities. 3/5 and SILT strength in bilateral lower extremities. SKIN: No rash or jaundice noted. Course 1526: Past medical records reviewed. The patient was evaluated in room D1A, and a complete history and physical examination were performed. 1540: The nursing staff from the patient's rehab center stated that the patient's lower extremity strength has been declining over the past couple of weeks. The patient's strength has declined to the point that he couldn't lift his left leg and could minimally lift his right leg. 1550: I paged Dr. Morales-Orthopedic Surgery but he is in surgery in the OR and will contact me when he is done. 1619: I spoke to Dr. Morales-Orthopedic Surgery who recommends the patient get a CT of the head and neck to rule out central process and states that he agrees to the patient's admission. 1724: I discussed the patient's case with Dr. Corrales [facility] Hospitalist who will evaluate the patient for further hospitalization. Consultations Consultation #1: Dr. De La PazOrthopedic Surgery Time: 15:50 Consultation #2: Dr. De La PazOrthopedic Surgery Time: 16:19 Consultation #3: Dr. Corrales [facility] Hospitalist Time: 17:24 Administered Medications Atorvastatin Calcium (Lipitor) 40 mg PO HS KAYLYNN Stop: 10/03/18 21:51 Last Admin: 09/03/18 23:23 Dose: 40 mg Documented by: [id number] Potassium Chloride/Sodium Chloride (Normal Saline W/20 Meq Kcl) 20 meq in 1,000 mls @ 80 mls/hr IV .[id number] KAYLYNN Stop: 09/04/18 10:21 Last Admin: 09/03/18 22:45 Dose: 80 mls/hr Documented by: [id number] Senna/Docusate Sodium (Senokot S) 2 tab PO BID KAYLYNN Stop: 10/03/18 21:51 Last Admin: 09/03/18 23:23 Dose: 2 tab Documented by: [id number] Tamsulosin HCl (Flomax) 0.4 mg PO HS KAYLYNN Stop: 10/03/18 21:51 Last Admin: 09/03/18 23:23 Dose: 0.4 mg Documented by: [id number] Discontinued Medications Sodium Chloride (Nss) 500 mls @ 999 mls/hr IV .Q31M KAYLYNN Stop: 09/03/18 16:15 Last Infusion: 09/03/18 16:48 Dose: 0 mls/hr Documented by: [id number] Admin: 09/03/18 16:12 Dose: 999 mls/hr Documented by: [id number] Magnesium Sulfate/Dextrose (Magnesium Sulfate / D5w) 1 gm in 100 mls @ 100 mls/hr IV Q1H KAYLYNN Stop: 09/03/18 23:14 Last Admin: 09/03/18 23:08 Dose: 100 mls/hr Documented by: [id number] Ioversol (Optiray 320 125ml) 119 ml IV ONCE PRN PRN Reason: Interaction Checking Stop: 09/07/18 17:36 Last Admin: 09/03/18 17:37 Dose: 119 ml Documented by: [id number] Medical Decision Making Differential Diagnosis Differential diagnoses includes but is not limited to lumbar radiculopathy, muscle strain, fracture, cauda equina, mass, and disc herniation. Medical Records Attestation: I reviewed the patient's medical records. Home Medications Current Medication List: was personally reviewed by me Laboratory Data Attestation: I reviewed the patient's lab results. Result diagrams: 09/03/18 16:00 09/03/18 16:00 Lab Results 09/03/18 09/03/18 09/03/18 Range/Units 16:00 16:00 16:00 WBC 14.64 H (4.8-10.8) K/uL RBC 3.50 L (4.7-6.1) M/uL Hgb 9.5 L (14.0-18.0) g/dL Hct 30.2 L (42-52) % MCV 86.3 (80-100) fL MCH 27.1 (25-34) pg MCHC 31.5 L (32-36) g/dL RDW Std Deviation 49.6 H (36.4-46.3) fL RDW Coeff of Norbert 15.5 H (11.5-14.5) % Plt Count 283 (130-400) K/uL MPV 8.9 (7.4-10.4) fL Immature Gran % (Auto) 0.7 % Neut % (Auto) 81.4 % Lymph % (Auto) 7.5 % [place] % (Auto) 9.8 % Eos % (Auto) 0.5 % Baso % (Auto) 0.1 % Immature Gran # (Auto) 0.10 H (0.00-0.02) K/uL Neut # (Auto) 11.91 H (1.4-6.5) K/uL Lymph # (Auto) 1.10 L (1.2-3.4) K/uL [place] # (Auto) 1.44 H (0.11-0.59) K/uL Eos # (Auto) 0.07 (0-0.5) K/uL Baso # (Auto) 0.02 (0-0.2) K/uL PT 11.9 (9.0-12.0) Seconds INR 1.2 H (0.9-1.1) Sodium 136 (136-145) mmol/L Potassium 3.8 (3.5-5.1) mmol/L Chloride 101 (98-107) mmol/L Carbon Dioxide 27 (21-32) mmol/L Anion Gap 9.0 (3-11) BUN 30 H (7-18) mg/dl Creatinine 0.97 (0.6-1.4) mg/dl Est Cr Clr Drug Dosing 85.4 ml/min Est GFR ( Amer) 94.6 Est GFR (Non-Af Amer) 81.6 BUN/Creatinine Ratio 30.6 H (10-20) Glucose 129 H (70-99) mg/dl Calcium 8.9 (8.5-10.1) mg/dl Phosphorus 2.8 (2.5-4.9) mg/dl Magnesium 1.6 L (1.8-2.4) mg/dl Total Bilirubin 0.4 (0.2-1) mg/dl AST 25 (15-37) U/L ALT 27 (12-78) U/L Alkaline Phosphatase 118 H (45-117) U/L Troponin I 0.021 (0-0.045) ng/ml Total Protein 7.0 (6.4-8.2) gm/dl Albumin 2.5 L (3.4-5.0) gm/dl Globulin 4.5 H (2.5-4.0) gm/dl Albumin/Globulin Ratio 0.6 L (0.9-2) Lipase 149 (73-393) U/L Urine Color Urine Appearance (Clear) Urine pH (4.5-7.5) Ur Specific [place] (1.000-1.030) Urine Protein (Negative) Urine Glucose (UA) (Negative) Urine Ketones (Negative) Urine Blood (Negative) Urine Nitrite (Negative) Urine Bilirubin (Negative) Urine Urobilinogen (Negative) Ur Leukocyte Esterase (Negative) Nasal Screen MRSA (PCR) (Negative) 09/03/18 09/03/18 Range/Units 17:43 21:30 WBC (4.8-10.8) K/uL RBC (4.7-6.1) M/uL Hgb (14.0-18.0) g/dL Hct (42-52) % MCV (80-100) fL MCH (25-34) pg MCHC (32-36) g/dL RDW Std Deviation (36.4-46.3) fL RDW Coeff of Norbert (11.5-14.5) % Plt Count (130-400) K/uL MPV (7.4-10.4) fL Immature Gran % (Auto) % Neut % (Auto) % Lymph % (Auto) % [place] % (Auto) % Eos % (Auto) % Baso % (Auto) % Immature Gran # (Auto) (0.00-0.02) K/uL Neut # (Auto) (1.4-6.5) K/uL Lymph # (Auto) (1.2-3.4) K/uL [place] # (Auto) (0.11-0.59) K/uL Eos # (Auto) (0-0.5) K/uL Baso # (Auto) (0-0.2) K/uL PT (9.0-12.0) Seconds INR (0.9-1.1) Sodium (136-145) mmol/L Potassium (3.5-5.1) mmol/L Chloride (98-107) mmol/L Carbon Dioxide (21-32) mmol/L Anion Gap (3-11) BUN (7-18) mg/dl Creatinine (0.6-1.4) mg/dl Est Cr Clr Drug Dosing ml/min Est GFR ( Amer) Est GFR (Non-Af Amer) BUN/Creatinine Ratio (10-20) Glucose (70-99) mg/dl Calcium (8.5-10.1) mg/dl Phosphorus (2.5-4.9) mg/dl Magnesium (1.8-2.4) mg/dl Total Bilirubin (0.2-1) mg/dl AST (15-37) U/L ALT (12-78) U/L Alkaline Phosphatase (45-117) U/L Troponin I (0-0.045) ng/ml Total Protein (6.4-8.2) gm/dl Albumin (3.4-5.0) gm/dl Globulin (2.5-4.0) gm/dl Albumin/Globulin Ratio (0.9-2) Lipase (73-393) U/L Urine Color Yellow Urine Appearance Clear (Clear) Urine pH 6.5 (4.5-7.5) Ur Specific [place] 1.035 H (1.000-1.030) Urine Protein Negative (Negative) Urine Glucose (UA) Negative (Negative) Urine Ketones Negative (Negative) Urine Blood Negative (Negative) Urine Nitrite Negative (Negative) Urine Bilirubin Negative (Negative) Urine Urobilinogen Negative (Negative) Ur Leukocyte Esterase Negative (Negative) Nasal Screen MRSA (PCR) Negative (Negative) Imaging Data Radiologist's Impression: Radiology results as stated below per my review and the radiologist's interpretation: XR chest 1V portable CLINICAL HISTORY: Chest Pain dyspnea COMPARISON STUDY: 08/05/2018 FINDINGS: PICC catheter place in the superior vena cava. No evidence of pneumothorax. Mild stable cardiomegaly. Prior median sternotomy. Lungs are considered clear. IMPRESSION: PICC catheter placed in the superior vena cava. No evidence for p neumothorax. The lungs appear clear. The above report was generated using voice recognition software. It may contain grammatical, syntax or spelling errors. Electronically signed by: Samuel Lindo M.D. 09/03/2018 4:[address] abd pelvis IV con only CLINICAL HISTORY: Bilateral lower extremity weakness. History of recent epidural abscess. COMPARISON STUDY: July 27, 2018 TECHNIQUE: The patient was scanned in a dynamic helical fashion during intravenous administration 119 cc of Optiray 320. A dose lowering technique was utilized adhering to the principles of ALARA. CT DOSE: FINDINGS: Lower chest: The heart is mildly enlarged. A pacemaker is visualized. There are minor dependent atelectatic changes. Liver: There is a very subtle left lobe anterior hypodensity measuring approximately 2 cm. This is adjacent the falciform ligament and potentially represents focal fat. This is difficult to visualize the prior noncontrast study. Gallbladder: Unremarkable. Spleen: The spleen is mildly enlarged measuring 14 cm. Pancreas: Unremarkable. Adrenal glands: Unremarkable. Kidneys: There is a horseshoe kidney. There are 2 renal cysts the largest of which measures 19 mm. Bowel: There are no transition zones indicate bowel obstruction. There is no evidence of acute diverticulitis. There are no findings to indicate acute appendicitis. Peritoneum: There is no intraperitoneal free air or abdominal ascites. There is very mild stranding within the retroperitoneum bilaterally Vasculature: The abdominal aorta is normal in course and caliber. Adenopathy: None. Pelvic viscera: There is a joint Luna catheter. There is a mildly thick-walled bladder. Gas in the bladder is likely iatrogenic. Skeletal structures: Postsurgical changes involve the lumbar spine. There is a prominent posterior fluid collection with multiple radiopaque pledgets. IMPRESSION: 1. No evidence of bowel obstruction. No evidence of free air 2. Horseshoe kidney 3. Mild splenomegaly 4. Subtle left lobe hepatic hypodensity, possibly representing focal fat adjace nt the falciform ligament 5. Postsurgical changes present within the lumbar spine. Large posterior fluid collection containing multiple radiopaque pledgets. Electronically signed by: Stevan Betancourt M.D. 09/03/2018 5:57 PM HEAD & NECK CTA HISTORY: Bilateral lower extremity weakness. TECHNIQUE: Multiaxial CT images of the head were performed following the intrav enous administration of contrast to evaluate the major cerebral vessels. Multiaxial CT images of the neck were also performed following the intravenous administration of contrast to evaluate the major cervical vessels. Maximum intensity projection images were also obtained. A dose lowering technique was utilized adhering to the principles of ALARA. COMPARISON: Head CT 09/03/2018. Chest CT 08/05/2018. FINDINGS: There is no mass, hematoma, midline shift, or acute infarct. Visualized intracranial internal carotid arteries, distal vertebral arteries, and basilar artery are widely patent. There is no significant stenosis, occlusion, or aneurysm seen within the bilateral ACAs, MCAs, or systems consultant. The major dural venous sinuses are patent. There is a persistent left posterior circulation. This is considered to be a normal variant. Moderate calcified plaque within the bilateral carotid siphons. The aortic arch and proximal great vessels are widely patent. There is no significant stenosis, occlusion, or dissection identified within the bilateral common carotid, left internal carotid, or vertebral arteries. Mild narrowing within the takeoff of the right internal carotid artery of less than 50%. The lung apices are clear. Anterior cervical discectomy and fusion at C3-C4. The hardware appears intact. There is also anterior cervical discectomy and fusion at C6-T1 with interbody bone grafts. The left T1 screw is dislodged and is seen anterior to the T2 vertebral body. This results in mass effect along the adjacent esophagus. Evaluation for epidural abscess is essentially nondiagnostic on this CT examination. Pacemaker wires are noted. Prevertebral soft tissues are intact. Mild calcified plaque within the bilateral carotid siphons. IMPRESSION: 1. No significant stenosis, occlusion, or aneurysm within the [place]. 2. No significant stenosis, occlusion, or dissection identified within the common carotid, left internal carotid or vertebral arteries. 3. Less than 50% focal narrowing at the takeoff of the right internal carotid artery. 4. Anterior cervical discectomy and fusion at C6-T1. The left T1 screw is dislodged and is seen anterior to the T2 vertebral body. This results in mass effect along the adjacent esophagus. Electronically signed by: Frankie Barrow M.D. 09/03/2018 5:59 PM HEAD & NECK CTA HISTORY: Bilateral lower extremity weakness. TECHNIQUE: Multiaxial CT images of the head were performed following the intravenous administration of contrast to evaluate the major cerebral vessels. Multiaxial CT images of the neck were also performed following the intravenous administration of contrast to evaluate the major cervical vessels. Maximum intensity projection images were also obtained. A dose lowering technique was utilized adhering to the principles of ALARA. COMPARISON: Head CT 09/03/2018. Chest CT 08/05/2018. FINDINGS: There is no mass, hematoma, midline shift, or acute infarct. Visualized in tracranial internal carotid arteries, distal vertebral arteries, and basilar artery are widely patent. There is no significant stenosis, occlusion, or aneurysm seen within the bilateral ACAs, MCAs, or systems consultant. The major dural venous sinuses are patent. There is a persistent left posterior circulation. This is considered to be a normal variant. Moderate calcified plaque within the bilateral carotid siphons. The aortic arch and proximal great vessels are widely patent. There is no significant stenosis, occlusion, or dissection identified within the bilateral common carotid, left internal carotid, or vertebral arteries. Mild narrowing within the takeoff of the right internal carotid artery of less than 50%. The lung apices are clear. Anterior cervical discectomy and fusion at C3-C4. The hardware appears intact. There is also anterior cervical discectomy and fusion at C6-T1 with interbody bone grafts. The left T1 screw is dislodged and is seen anterior to the T2 vertebral body. This results in mass effect along the adjacent esophagus. Evaluation for epidural abscess is essentially nondiagnostic on this CT examination. Pacemaker wires are noted. Prevertebral soft tissues are intact. Mild calcified plaque within the bilateral carotid siphons. IMPRESSION: 1. No significant stenosis, occlusion, or aneurysm within the [place]. 2. No significant stenosis, occlusion, or dissection identified within the common carotid, left internal carotid or vertebral arteries. 3. Less than 50% focal narrowing at the takeoff of the right internal carotid artery. 4. Anterior cervical discectomy and fusion at C6-T1. The left T1 screw is dislodged and is seen anterior to the T2 vertebral body. This results in mass effect along the adjacent esophagus. Electronically signed by: Frankie Barrow M.D. 09/03/2018 5:[address] head/brain wo con CLINICAL HISTORY: Bilateral lower extremity weakness. Recent epidural abscess. Incoherent patient. COMPARISON STUDY: 10/19/2011 TECHNIQUE: Axial CT of the brain is performed from the vertex to the skull base. IV contrast was not administered for this examination. A dose lowering technique was utilized adhering to the principles of ALARA. CT DOSE: 2606.70 mGy.cm FINDINGS: No intra or extra-axial mass lesions are visualized. There is no CT evidence of acute cortical infarction. There is no evidence of midline shift. There is no acute hemorrhage. No calvarial fractures are visualized. There are patchy white matter hypodensities likely on a small vessel basis. There is mild ventricular dilatation, likely secondary to volume loss. This is increased slightly when compared the prior 2011 study. There is a right mastoid effusion. IMPRESSION: 1. Large right mastoid effusion 2. No acute intracranial findings. Electronically signed by: Stevan Betancourt M.D. 09/03/2018 5:41 PM ECG Data Attestation: I personally reviewed and interpreted this ECG as follows: Indication: back/shoulder pain Rate (beats per minute): 90 Findings: + RBBB; no acute ischemic change and no ectopy Blood Pressure Blood Pressure Findings: Normal blood pressure MDM Narrative The patient is a pleasant 67-year-old gentleman with a past medical history of CAD, ischemic cardiomyopathy, CABG, status post AICD, hypertension, degenerative disc disease status post lumbar decompression complicated by bacteremia and epidural abscess status post drainage on 08/11 and placement of vancomycin/gentamicin impregnated pledgets during recent admission presents emergency department from [facility] for concern with worsening lower extremity weakness over the past 2 weeks since he arrived at their formerly [facility]. Moreover, the staff report that the patient also developed urinary retention during this time and has since had a urinary catheter in place. He also has had persistent waxing and waning confusion since his discharge. Patient is still on ertapenem from his last discharge. On arrival patient is chronically ill-appearing but no acute distress, afebrile stable vital signs. On exam the patient has 3/5 strength in bilateral lower extremities with sensation intact. Fortunately, it appears that patient is unable to have an MRI of his lumbar spine given his AICD as all prior imaging has been CT scans. On patient arrival case was discussed with Dr. Morales, orthopedic spine, who had performed the patient's decompression and epidural abscess drainage agrees with plan for CT scan including CT of the head and neck to exclude central cause. Given the complexity of the patient's medical history he recommends admission to medicine and they will evaluate the patient for further management. WBC 14.6, nonspecific. H/H9 0.5/30.2 within patient's recent baseline range. Chemistry without acidosis. UA negative for infection. CT of abdomen pelvis as well as CTA of the head and neck ordered and pending. Case was discussed with Dr. Aguilar, [facility] hospitalist, who will evaluate the patient for admission. CTA of the head and neck subsequent without any overt evidence of stroke. There is incidental note of dislodged left T1 screw seen anterior to the T2 vertebral body. CT abdomen and pelvis demonstrate postsurgical with large posterior fluid collection containing multiple radiopaque pledgets. Admitting team to discuss with ortho-spine, Dr. Morales. Impression & Plan Leg weakness, bilateral, Confusion Discharge Plan Visit Data *Final* Discharge Date/Time: 03/27/19 21:19 Chief Complaint: Leg Weakness, Bilateral ED Provider: Alex Sultana Discharge Problem: Leg weakness, bilateral, Confusion Patient Disposition: Admitted As Inpatient Discharge Instructions Interventions: ED Discharge Assessment Last Done: 09/03/18 21:19 The scribe's documentation has been prepared under my direction and personally reviewed by me in its entirety. I confirm that the note above accurately reflects all work, treatment, procedures, and medical decision making performed by me.
[2018-09-03] MEDS ORDERED: NSS + 20MEQ KCL 20 MEQ/1,000 ML BAG IV SCH (21:52)
[2018-09-03] MEDS ORDERED: SOD PHOSPHATE/SOD BIPHOSPHATE ENEMA 132 ML BTL PR PRN (21:52)
[2018-09-03] MEDS ORDERED: MoRPHine SULFATE 4 MG/ML 1 ML CARP\\VIAL IV PRN (21:52)
[2018-09-03] MEDS ORDERED: BISACODYL 10 MG SUPP PR PRN (21:52)
[2018-09-03] MEDS ORDERED: GLUCOSE 40% GEL 15 GM TUBE PO PRN (22:15)
[2018-09-03] MEDS ORDERED: DEXTROSE 50% 50 ML SYRINGE IV PRN (22:15)
[2018-09-03] MEDS ORDERED: CARBOHYDRATES FOR HYPOGLYCEMIA PO PRN (22:15)
[2018-09-03] MEDS ORDERED: GLUCAGON FOR INJ 1 MG VIAL IM PRN (22:15)
[2018-09-03] MEDS ORDERED: GLUCOSE 10 TABS/TUBE PO PRN (22:15)
[2018-09-03] MEDS ORDERED: fentaNYL 25 MCG/HR TDSY TD SCH (22:30)
[2018-09-03] MEDS: MAGNESIUM SULFATE / D5W 1 GM/100 ML BAG IV SCH (23:08)
[2018-09-03] MEDS: DOCUSATE SODIUM/SENNA 50/8.6MG TAB PO SCH (23:23)
[2018-09-03] MEDS: ATORVASTATIN 40 MG TAB PO SCH (23:23)
[2018-09-03] MEDS: TAMSULOSIN HCL 0.4 MG CAP PO SCH (23:23)
[2018-09-04] MEDS: MAGNESIUM SULFATE / D5W 1 GM/100 ML BAG IV SCH (00:05)
[2018-09-04] MEDS ORDERED: INSULIN GLARGINE SOLOSTAR 100 UNITS/ML 3 ML PEN SC SCH (09:00)
--- NOTE | 2018-09-04 09:31 | CT Scan Report ---
LUMBAR SPINE CT CT DOSE: HISTORY: Back pain TECHNIQUE: Multiaxial CT images of the lumbar spine were performed and reformatted in the sagittal an d coronal plane without the use of contrast. A dose lowering technique was utilized adhering to the principles of ALARA. COMPARISON: Lumbar spine 08/10/2018. FINDINGS: Postoperative changes redemonstrated with L3-L4, L4-L5 and L5 discectomy. Laminectomy mena es are noted at L3-L5 with evidence of prior hardware removal at L5-S1. Transverse fracture noted abo ut the posterior L3 vertebral body with 5 mm retropulsion. The degree of retropulsion appears similar but is obscured by the metallic artifact. The fracture extends to the junction of the bilateral pedi cles, unchanged.. Healing fracture of the right L3 transverse process is again noted. The hardware appears intact. The remaining vertebral bodies appear unremarkable. Multilevel spondylitic spurring with facet arthrosis. Remote L1 compression deformity. Mild periprosthetic lucency surrounding the L3 pedicle screws which is new from the prior study. Moderate erosive change seen at the L2-L3 endplates and adjacent sclero sis. This is new from the prior study. A horseshoe kidney is noted. Paraspinal soft tissue edema is n oted at the L3-L5 levels. Similar size in the periphery calcified fluid collection at the laminectomy sites from the L3-L5 level. This measures 8.2 x 7.1 x 4.1 cm. This contains multiple antibiotic pled gets at this time. Evaluation of the central canal is essentially nondiagnostic due to the CT techniq ue and metallic artifact. IMPRESSION: 1. Interval development of mild erosive changes at the L2-L3 endplates. This is concerning for a deve loping discitis/osteomyelitis. 2. There is also been interval development of periprosthetic lucency at the bilateral L3 pedicle scre ws. This may represent superimposed infection. 3. Redemonstration of the postoperative fluid collection at the laminectomy sites. This is similar in size compared to the prior study but now demonstrate multiple antibiotic pledgets. 4. Healing fracture of the posterior L3 vertebral body with 5 mm retropulsion. The fractures extend i nto the bilateral pedicles. 5. Nondisplaced healing fracture involves the base of the right transverse process. 6. These findings were discussed Dr. Avendano at 9:30 AM on 08/29/2018. Electronically signed by: Frankie Barrow M.D. 09/04/2018 9:30 AM
[2018-09-04] MEDS: CHECK FENTANYL PATCH PLACEMENT SCH ×2 (09:33→16:02)
[2018-09-04] MEDS: ERTAPENEM SODIUM 1,000 MG in SODIUM CHLORIDE 0.9% 50 ML IV SCH (09:33)
[2018-09-04] MEDS: FINASTERIDE 5 MG TAB PO SCH (10:03)
[2018-09-04] MEDS: METOPROLOL SUCC 50MG EXT REL TAB PO SCH (10:03)
[2018-09-04] MEDS: DOCUSATE SODIUM/SENNA 50/8.6MG TAB PO SCH ×2 (12:25→21:11)
[2018-09-04] MEDS: CYANOCOBALAMIN 500 MCG TABLET (VITAMIN B-12) PO SCH (12:25)
[2018-09-04] MEDS: ASPIRIN 81 MG ECTAB PO SCH (12:25)
[2018-09-04] MEDS: INSULIN ASPART 100 UNITS/ML 3 ML PEN SC SCH ×3 (12:56→18:49)
--- NOTE | 2018-09-04 14:16 | Orthopedic Consultation ---
Date of Consultation September 04, 2018 Assessment & Plan (1) Leg weakness, bilateral: For the opportunity to review his lumbar CAT scan. I am concerned there is loosening of the L3 pedicle screws there is evidence of disc space collapse at the L2-3 level. There is fairly severe neuroforaminal stenosis developing at the L2-3 L3-4 level on the right secondary to collapse and bony encroachment. He does have evidence of continued epidural fluid collection. I am able to appreciate antibiotic beads. At this time I strongly suspect his weakness is accommodation of disuse as well as possible neural encroachment. At this time any surgical intervention for adequate treatment would be quite extensive nature most likely requiring removal of the current instrumentation evacuation of any fluid collection and most likely a second procedure with extension of the fusion to the L2 level. Clearly he is of significant medical concern in this type of procedure may not be tolerated. We will wait for cardiac and medical input regarding his candidacy for surgery. Present on Admission?: Yes History of Present Illness Reason for Consultation: Leg weakness Attending Physician: Juarez Sanchez MD, PhD, [facility] History of Present Illness This is a 67-year-old male well-known to me that presents from his senior living with a decline in ability to ambulate secondary to leg weakness. He denies any specific trauma fall or event. He does note difficulty with prolonged standing and ambulation. This is been progressive in nature. He is also been struggling with urinary retention but again has been I am able to stand for any length of time in order to urinate. While at rest he denies any leg pain. Denies any numbness or tingling in the lower extremities. Denies any back pain. Allergies Allergy/AdvReac Type Severity Reaction Status Date / Time No Known Allergies Allergy Verified 08/01/18 15:19 Home Medications Home Medications Medication Instructions Recorded Confirmed Type magnesium oxide 400 mg PO QAM #0 tab 11/27/11 09/03/18 History losartan 50 mg PO QAM #0 tab 05/26/12 09/03/18 History omega 2-fpz-jkh-fish oil [Fish Oil] 1 cap PO QAM #0 cap 05/26/12 09/03/18 History atorvastatin 40 mg PO HS #0 tab 11/12/14 09/03/18 History coenzyme Q10 100 mg PO QAM #0 11/12/14 09/03/18 History finasteride [Proscar] 5 mg PO QAM #0 11/12/14 09/03/18 History insulin aspart U-100 10 - 50 unit SC TIDM #0 03/07/16 09/03/18 History metoprolol succinate [Toprol XL] 100 mg PO QAM #0 03/07/16 09/03/18 History metformin 1,000 mg PO BID 05/16/18 09/03/18 History vitamin B complex 1 tab PO QAM 07/22/18 09/03/18 History aspirin [Ecotrin Low Strength] 81 mg PO QAM #30 tab 08/14/18 09/03/18 Rx clopidogrel 75 mg PO QAM #30 tab 08/14/18 09/03/18 Rx ertapenem 1 gm IV DAILY 35 Days ea 08/14/18 08/26/18 Rx furosemide 40 mg PO DAILY #30 tab 08/14/18 09/03/18 Rx sennosides-docusate sodium [Senna 2 tab PO BID #3 tab 08/14/18 09/03/18 Rx with Docusate Sodium] tamsulosin 0.4 mg PO HS #3 cap 08/14/18 09/03/18 Rx acetaminophen 650 mg PO Q6H PRN 08/26/18 09/03/18 History bisacodyl [Dulcolax (bisacodyl)] 10 mg MD DAILY PRN 08/26/18 09/03/18 History cholecalciferol (vitamin D3) 08/26/18 History [Vitamin D3] cyanocobalamin (vitamin B-12) 1,000 mcg PO DAILY 08/26/18 09/03/18 History [Vitamin B-12] rifmwmgs-dvxdrzw-fgpmdil ea PO 08/26/18 History [Insta-Glucose] glucagon (human recombinant) mg 08/26/18 History [Glucagon Emergency Kit (human)] magnesium hydroxide [Milk of 30 ml PO DAILY PRN 08/26/18 09/03/18 History Magnesia] oxycodone 10 mg PO Q6H PRN 08/26/18 09/03/18 History sodium phosphates 118 ml MD DAILY PRN 08/26/18 09/03/18 History fentanyl 1 patch TRANSDERMAL Q72H 09/03/18 09/03/18 History insulin detemir U-100 7 unit SUBCUT BID 09/03/18 09/03/18 History levofloxacin [Levaquin] 750 mg PO DAILY 09/03/18 09/03/18 History Patient History Medical History 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 Admitted [facility] 10/18/11 for onset of incapacitating cervical myelopathy. 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 Pt had c-spine surgery, subsequent prolonged hospital admission, complicated post-op course. Difficult intubation Sudden cardiac Post-op 2011 [facility]. Now has ICD. Sleep apnea PT NOT CURRENTLY CPAP 2/2 recurrent sinus infections. WILL SEE SLEEP MEDICINE/DR. ARCHULETA LATE 2017 Diabetes mellitus, type 2 IDDM. Degenerative disc disease Chronic back pain CHRONIC PAIN IN LEFT LEG Ischemic cardiomyopathy EF WNL 11/2017 CAD (coronary artery disease) s/p triple CABG 2002 Full dentures (Acute) Obese (Acute) Heart disease (Acute) HTN (hypertension) (Acute) High cholesterol (Acute) Surgical History History of esophagogastroduodenoscopy (EGD) History of colonoscopy History of cardiac cath 2011 AT [facility] - UNSURE IF HE HAS STENTS. History of tracheostomy Hx of transurethral resection of prostate History of cataract extraction with lens replacement Hx of tonsillectomy (Acute) H/O cervical spine surgery (Acute) ACDI C3-4, C7 corpectomy, removal of C7 intramedullary mass. History of lumbar spinal fusion (Acute) S/P triple vessel bypass (Acute) [facility], 2002 Family History Other No pertinent family history Social History Preferred Language: Nauruan Communication Ability: Impaired Communication Ability Comment: disoriented at times [employer] Supervisor Required: No Beliefs That Will Affect Care: Bahai marital status: Current Living Situation: Spouse and Senior Living Current Living Situation Comment: currenlty at SNF for rehab s/p lumbar surgery Feels Safe at Home: Yes Safety Concerns: Feels Safe At This Time Smoking Status: Never smoker Hx Alcohol Use: No Hx Substance Use: No Physical Exam Vital Signs (Past 24 Hours): Last Vital Signs Temp 36.2 C L 09/04/18 11:27 Pulse 79 09/04/18 11:27 Resp 18 09/04/18 11:27 BP 118/71 09/04/18 11:27 Pulse Ox 96 09/04/18 11:27 Physical Exam: On exam his incision is healing well. There is no erythema. There is no drainage. He is nontender to deep palpation in the perioperative region. He exhibits plus 5 out of 5 plantar flexion dorsiflexion bilaterally. Weakness is noted in his quads. He is full sensation to light touch and cold bilateral extremities. Is no perineal numbness. He does have a positive logroll on the right and pain along his right greater trochanter.
[2018-09-04] MEDS: INSULIN DETEMIR FLEXPEN/FLEX TOUCH 100 UNITS/ML 3ML SC SCH ×2 (15:58→21:11)
[2018-09-04] MEDS ORDERED: INSULIN ASPART 100 UNITS/ML 3 ML PEN SC SCH (16:30)
--- NOTE | 2018-09-04 16:32 | Hospitalist Progress Note ---
Date of Service September 04, 2018 Assessment & Plan (1) Weakness of lower extremity: 67 y/o M with a complex medical history including CAD, sudden cardiac , combined CHF, DM II, HTN, HLD, ANTONIO, chronic anemia, multiple spinal surgeries Admitted because of progressive lower extremity weakness, L lower back pain Imaging obtained in the ER included a CT head, CTA head and neck and aan abdominal CT, were unremarkable The abdominal CT demonstrated a large posterior fluid collection containing multiple radiopaque pledgets which represent the implanted antibiotic beads. Lower extremity weakness possible neural encroachment Spine surgeon input appreciated, plan surgery after cardiology clear fluid collection on CT, no fevers, however, leukocytosis, cont Ertapenem. Continue n.p.o. AMS, slurred speech, totally resolved Likely metabolic CAD - no evidence of ACS - continue ASA, Plavix, statin, B angy DM II - placed on a SS and Lantus HTN/HLD - cont Metoprolol and Atorvastatin Continue to hold Lasix and Losartan CHF, seems euvolemic, continue current medication, Possible mild protein malnutrition, will need to be addressed prior to DC as it can affect healing hronic sinusitis. There is a large mastoid effusion on CT. ENT referral on DC would be appopriate. Full code - SCDs Subjective Nursing staff report patient is improving however may be some confused When I interview him, he was awake alert orientated conversational Fever and chill, Lower extremity weakness the same, no urine or stool incontinence Denies chest pain palpitation Denies nausea vomiting abdominal pain diarrhea constipate Denies dysuria urgency frequency Other review of system were negative Physical Exam Vital Signs (Past 24 Hours): Last Vital Signs Temp 36.9 C 09/04/18 15:15 Pulse 80 09/04/18 16:00 Resp 18 09/04/18 15:15 BP 122/70 09/04/18 15:15 Pulse Ox 99 09/04/18 15:15 Physical Exam: General: Mild pale, chronically ill looking, awake alert and orientated ENT: No erythema or exudates, no thrush Eyes: SERVANDO, EOMI Head and neck: Normocephalic, atraumatic, No JVD, neck is supple. Chest/heart: Nontender, S1,2, RRR, no murmurs, no gallops Lungs: CTAB, no wheezing or crackles Abdomen: Nontender, nondistended, BS+ Neuro: Lower extremity weakness associated with limited range of motion. BL and in the perineum sensation is intact Musculoskeletal: No joint inflammation, muscle tenderness Skin: No acute rashes or ulcers - the lumbar surgical site appears to have healed well Extremities: No clubbing, cyanosis, edema Results & Data Laboratory Results Laboratory Results - last 24 hr 09/03/18 09/03/18 09/03/18 17:43 21:30 23:55 POC Glucose 151 H Urine Color Yellow Urine Appearance Clear Urine pH 6.5 Ur Specific [place] 1.035 H Urine Protein Negative Urine Glucose (UA) Negative Urine Ketones Negative Urine Blood Negative Urine Nitrite Negative Urine Bilirubin Negative Urine Urobilinogen Negative Ur Leukocyte Esterase Negative Nasal Screen MRSA (PCR) Negative 09/04/18 09/04/18 06:08 12:06 POC Glucose 181 H 188 H Urine Color Urine Appearance Urine pH Ur Specific [place] Urine Protein Urine Glucose (UA) Urine Ketones Urine Blood Urine Nitrite Urine Bilirubin Urine Urobilinogen Ur Leukocyte Esterase Nasal Screen MRSA (PCR) Diagnostic Findings L-spine CT per report: . Interval development of mild erosive changes at the L2-L3 endplates. This is concerning for a developing discitis/osteomyelitis. 2. There is also been interval development of periprosthetic lucency at the bilateral L3 pedicle screws. This may represent superimposed infection. 3. Redemonstration of the postoperative fluid collection at the laminectomy sites. This is similar in size compared to the prior study but now demonstrate multiple antibiotic pledgets. 4. Healing fracture of the posterior L3 vertebral body with 5 mm retropulsion. The fractures extend into the bilateral pedicles. 5. Nondisplaced healing fracture involves the base of the right transverse process. 6. These findings were discussed Dr. Avendano at 9:30 AM on 08/29/2018.
--- NOTE | 2018-09-04 17:18 | Cardiology Consultation ---
Date of Consultation September 04, 2018 Assessment & Plan (1) Ischemic cardiomyopathy: In July of this year he was noted to have moderately reduced LV systolic function. This is a departure from prior evaluations where his systolic function was better. This may reflect his acute illness and the recent N STEMI. He appears to be well compensated currently. His current medical regimen includes furosemide, losartan and metoprolol. Present on Admission?: Yes (2) ICD (implantable cardioverter-defibrillator) in place: He has a [employer]onic single-chamber ICD which appears to be functioning normally. No recent therapies. No urgent need for interrogation. Present on Admission?: Yes (3) Coronary artery disease: He has severe three-vessel coronary disease. He has obstructive disease in the [place] right coronary artery and recently suffered an acute coronary syndrome involving the ramus intermedius. The graft to the circumflex system is known to be occluded in this distribution is also diseased. Does have a patent solis to LAD. He did have an NSTEMI during his last admission. He has not been revascularized since that time. He is certainly at risk for additional events given the anatomy identified on his recent catheterization. I think he would be at least moderate risk for recurrent perioperative infarct. He has had significant cardiac complications from 2 prior back surgeries. If surgery must be done, he will need careful monitoring on telemetry afterward. Serial troponin afterwars. In the paige-operative period he should continue his metoprolol. We should avoid significant blood loss, hyper/hypotension, maintain good oxygen levels and heart rates. While alex mcpherson has some benefit from continued dual antii-platelet therapy after his recent [place], certainly his plavix could be stopped temporarily for surgery. If he elects to have surgery we will follow him post-operatively No indication for any additional pre-operative risk stratification or revascularization History of Present Illness Reason for Consultation: Preoperative cardiovascular risk assessment Requesting Physician: Laura Attending Physician: Juarez Sanchez MD, PhD, [facility] History of Present Illness Patient is a 67-year-old gentleman with a long cardiac history to include an ischemic cardiomyopathy, coronary artery disease and sudden cardiac arrest who was recently discharged from [facility] after a complicated hospitalization following back surgery. Patient has a long history of back pain and underwent operative intervention for symptoms. In the postoperative period he was noted to have a gram-negative bacteremia, associated sepsis and non ST elevation myocardial infarction. He did undergo coronary angiography during that hospitalization which revealed evidence of an acute infarct involving a small ramus intermedius. No intervention was performed at that time as the event was relatively remote and he was otherwise stable. Patient was discharged home but recently noticed progressive weakness in the lower extremities. Patient is having some difficulty with ambulation as a re sult. He did not report recent fevers or chills. He did report some mild lower back pain but not severe. While he is very limited with respect to activity he did not report significant dyspnea either at rest or with exertion. He did not report orthopnea or paroxysmal nocturnal dyspnea. He has not had complaints of chest discomfort. He denies any sense of palpitation. He has rare and transie nt lightheadedness. No presyncope or syncope. Allergies Allergy/AdvReac Type Severity Reaction Status Date / Time No Known Allergies Allergy Verified 08/01/18 15:19 Home Medications Home Medications Medication Instructions Recorded Confirmed Type magnesium oxide 400 mg PO QAM #0 tab 11/27/11 09/03/18 History losartan 50 mg PO QAM #0 tab 05/26/12 09/03/18 History omega 3-frg-mdt-fish oil [Fish Oil] 1 cap PO QAM #0 cap 05/26/12 09/03/18 History atorvastatin 40 mg PO HS #0 tab 11/12/14 09/03/18 History coenzyme Q10 100 mg PO QAM #0 11/12/14 09/03/18 History finasteride [Proscar] 5 mg PO QAM #0 11/12/14 09/03/18 History insulin aspart U-100 10 - 50 unit SC TIDM #0 03/07/16 09/03/18 History metoprolol succinate [Toprol XL] 100 mg PO QAM #0 03/07/16 09/03/18 History metformin 1,000 mg PO BID 05/16/18 09/03/18 History vitamin B complex 1 tab PO QAM 07/22/18 09/03/18 History aspirin [Ecotrin Low Strength] 81 mg PO QAM #30 tab 08/14/18 09/03/18 Rx clopidogrel 75 mg PO QAM #30 tab 08/14/18 09/03/18 Rx ertapenem 1 gm IV DAILY 35 Days ea 08/14/18 08/26/18 Rx furosemide 40 mg PO DAILY #30 tab 08/14/18 09/03/18 Rx sennosides-docusate sodium [Senna 2 tab PO BID #3 tab 08/14/18 09/03/18 Rx with Docusate Sodium] tamsulosin 0.4 mg PO HS #3 cap 08/14/18 09/03/18 Rx acetaminophen 650 mg PO Q6H PRN 08/26/18 09/03/18 History bisacodyl [Dulcolax (bisacodyl)] 10 mg MN DAILY PRN 08/26/18 09/03/18 History cholecalciferol (vitamin D3) 08/26/18 History [Vitamin D3] cyanocobalamin (vitamin B-12) 1,000 mcg PO DAILY 08/26/18 09/03/18 History [Vitamin B-12] [id number]-[id number]-kdhghib ea PO 08/26/18 History [Insta-Glucose] glucagon (human recombinant) mg 08/26/18 History [Glucagon Emergency Kit (human)] magnesium hydroxide [Milk of 30 ml PO DAILY PRN 08/26/18 09/03/18 History Magnesia] oxycodone 10 mg PO Q6H PRN 08/26/18 09/03/18 History sodium phosphates 118 ml MN DAILY PRN 08/26/18 09/03/18 History fentanyl 1 patch TRANSDERMAL Q72H 09/03/18 09/03/18 History insulin detemir U-100 7 unit SUBCUT BID 09/03/18 09/03/18 History levofloxacin [Levaquin] 750 mg PO DAILY 09/03/18 09/03/18 History Patient History Medical History 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 Admitted [facility] 10/18/11 for onset of incapacitating cervical myelopathy. Spinal tap showed AP[employer] PACKAGING SPECIALIST Lyme disease, MRI showed severe spinal cord compression at C3-4 with myelomalacia and intramedullary mass. Pt had c-spine surgery, subsequent prolonged hospital admission, complicated post-op course. Difficult intubation Sudden cardiac Post-op 2011 [facility]. Now has ICD. Sleep apnea PT NOT CURRENTLY CPAP 2/2 recurrent sinus infections. WILL SEE SLEEP MEDICINE/DR. ARCHULETA LATE 2017 Diabetes mellitus, type 2 IDDM. Degenerative disc disease Chronic back pain CHRONIC PAIN IN LEFT LEG Ischemic cardiomyopathy EF WNL 11/2017 CAD (coronary artery disease) s/p triple CABG 2002 Full dentures (Acute) Obese (Acute) Heart disease (Acute) HTN (hypertension) (Acute) High cholesterol (Acute) Surgical History History of esophagogastroduodenoscopy (EGD) History of colonoscopy History of cardiac cath 2011 AT [facility] - UNSURE IF HE HAS STENTS. History of tracheostomy Hx of transurethral resection of prostate History of cataract extraction with lens replacement Hx of tonsillectomy (Acute) H/O cervical spine surgery (Acute) ACDI C3-4, C7 corpectomy, removal of C7 intramedullary mass. History of lumbar spinal fusion (Acute) S/P triple vessel bypass (Acute) [facility]2002 Family History Other No pertinent family history Social History Communication Ability: Impaired Beliefs That Will Affect Care: Yazdanism marital status: Current Living Situation: Spouse and [facility] Current Living Situation Comment: [facility] at SNF for rehab s/p lumbar surgery Feels Safe at Home: Yes Smoking Status: Never smoker Hx Alcohol Use: No Hx Substance Use: No Review of Systems Complete. Pertinent positives known history of present illness. He did not reporting difficulty with urination. He did report some difficulty ambulating to urinate. He did not report any swelling of lower extremities. Physical Exam Vital Signs (Past 24 Hours): Last Vital Signs Temp 36.9 C 09/04/18 15:15 Pulse 80 09/04/18 16:00 Resp 18 09/04/18 15:15 BP 122/70 09/04/18 15:15 Pulse Ox 99 09/04/18 15:15 Physical Exam: The patient is alert and oriented. Mood and affect appeared normal. He answered all questions appropriately. HEENT: Pupils are equal and reactive to light and accommodation. Extraocular movements are intact. The sclerae are anicteric. Neuro: Cranial nerves intact Neck: Patient's neck is supple. Lungs: Clear to auscultation bilaterally. He has good air movement without use of accessory muscles. No rales wheezes or rhonchi. Cardiac: Heart demonstrates a regular rate and rhythm. Normal S1 and S2. No murmurs on examination. Chest: Well-healed sternotomy scar. Well-healed ICD implant site in left upper pectoral area. Erythematous lesion along the left shoulder concerning for ringworm Pulses: The left radial pulse is absent. The right radial pulse is severely diminished. Extremities: There was no evidence of hypoperfusion. There is no cyanosis or clubbing. There is no edema. Skin: I did not appreciate any rashes on examination today Other than that noted above Results & Data Laboratory Results Abnormal Lab Results 09/03/18 09/03/18 09/03/18 17:43 21:30 23:55 POC Glucose 151 H Urine Color Yellow Urine Appearance Clear Urine pH 6.5 Ur Specific [place] 1.035 H Urine Protein Negative Urine Glucose (UA) Negative Urine Ketones Negative Urine Blood Negative Urine Nitrite Negative Urine Bilirubin Negative Urine Urobilinogen Negative Ur Leukocyte Esterase Negative Nasal Screen MRSA (PCR) Negative 09/04/18 09/04/18 06:08 12:06 POC Glucose 181 H 188 H Urine Color Urine Appearance Urine pH Ur Specific [place] Urine Protein Urine Glucose (UA) Urine Ketones Urine Blood Urine Nitrite Urine Bilirubin Urine Urobilinogen Ur Leukocyte Esterase Nasal Screen MRSA (PCR) Diagnostic Findings Lumbar evaluation reveals a fluid collection and antibiotic impregnated beads. Chest x-ray did not reveal any acute cardiopulmonary process. Cardiac catheterization performed 08/2018 reveals patent solis to LAD, occluded radial graft to OM, FERNANDO graft to acute marginal with poor filling of the right coronary artery. 100 percent occlusion of the [place] LAD. 80 percent stenosis in the circumflex. Sequential 90 percent lesions in the right coronary artery. Acute coronary syndrome involving the ramus intermedius, small branch. Echocardiogram performed 08/04/2018: Moderately reduced LV systolic function with an ejection fraction of 30 35 percent. Regional wall motion abnormalities as noted. ECG Additional Comments: EKG demonstrates normal sinus rhythm with first-degree AV block and right bundle branch block. The notable ST segment changes seen at the last admission appear to have nearly resolved.
[2018-09-04] MEDS: TAMSULOSIN HCL 0.4 MG CAP PO SCH (21:11)
[2018-09-04] MEDS: ATORVASTATIN 40 MG TAB PO SCH (21:11)
[2018-09-04] MEDS: CLOPIDOGREL BISULFATE 75 MG TAB PO SCH (23:34)
[2018-09-05] MEDS: INSULIN ASPART 100 UNITS/ML 3 ML PEN SC SCH ×4 (00:01→17:56)
[2018-09-05] MEDS: CHECK FENTANYL PATCH PLACEMENT SCH ×3 (00:03→15:53)
[2018-09-05] MEDS: ERTAPENEM SODIUM 1,000 MG in SODIUM CHLORIDE 0.9% 50 ML IV SCH (07:51)
[2018-09-05] MEDS: DOCUSATE SODIUM/SENNA 50/8.6MG TAB PO SCH ×2 (07:55→20:39)
[2018-09-05] MEDS: CLOPIDOGREL BISULFATE 75 MG TAB PO SCH (07:57)
[2018-09-05] MEDS: METOPROLOL SUCC 50MG EXT REL TAB PO SCH (07:57)
[2018-09-05] MEDS: CYANOCOBALAMIN 500 MCG TABLET (VITAMIN B-12) PO SCH (07:57)
[2018-09-05] MEDS: INSULIN DETEMIR FLEXPEN/FLEX TOUCH 100 UNITS/ML 3ML SC SCH ×2 (07:58→20:40)
[2018-09-05] MEDS: FINASTERIDE 5 MG TAB PO SCH (07:58)
[2018-09-05] MEDS: ASPIRIN 81 MG ECTAB PO SCH (07:58)
[2018-09-05 09:01] LABS: BUN Creatinine Ratio 35.5 (10-20); Calcium 8.7 mg/dl (8.5-10.1); Magnesium 1.6 mg/dl (1.8-2.4); Potassium 3.5 mmol/L (3.5-5.1)
[2018-09-05] MEDS: CLOTRIMAZOLE 1% CR 15 GM TUBE EXT SCH ×2 (13:38→20:40)
[2018-09-05] MEDS ORDERED: MAGNESIUM SULFATE / D5W 1 GM/100 ML BAG IV ONE (13:45)
--- NOTE | 2018-09-05 14:27 | Infectious Disease Consult ---
Date of Consultation September 05, 2018 Assessment & Plan (1) Paraspinal abscess: 67 yo male under treatment for discitis, osteomyelitis, and paraspinal abscess with Serratia, admitted with progressive weakness, persistent collection on CT. Pending cultures and decision regarding surgery, will continue ertapenem. Will follow. History of Present Illness Reason for Consultation: Spine abscess Attending Physician: Juarez Sanchez MD, PhD, [facility] History of Present Illness 67-year-old male known to me from recent hospitalization, with complicated past medical history including coronary artery disease, cardiomyopathy, sleep apnea, chronic kidney disease, who recently underwent back surgery complicated by postoperative WI. Patient subsequently developed infection at the surgical site with positive blood cultures for Serratia, and patient underwent surgical debridement and placement of antibiotic beads. He has been on IV ertapenem. Reportedly has been having functional decline over the last week or 2, with increasing weakness, difficulty ambulating, and confusion with slurred speech. He was brought back to the hospital where CT scan showed evidence of persistent collection at the site of previous surgery, and patient now being evaluated for ability to undergo further surgery. There is not been any report of fever or chills. So far blood cultures are negative. Patient continues on IV ertapenem. Mental status has improved somewhat since admission. Allergies Allergy/AdvReac Type Severity Reaction Status Date / Time No Known Allergies Allergy Verified 08/01/18 15:19 Home Medications Home Medications Medication Instructions Recorded Confirmed Type magnesium oxide 400 mg PO QAM #0 tab 11/27/11 09/03/18 History losartan 50 mg PO QAM #0 tab 05/26/12 09/03/18 History omega 7-lbn-ycc-fish oil [Fish Oil] 1 cap PO QAM #0 cap 05/26/12 09/03/18 History atorvastatin 40 mg PO HS #0 tab 11/12/14 09/03/18 History coenzyme Q10 100 mg PO QAM #0 11/12/14 09/03/18 History finasteride [Proscar] 5 mg PO QAM #0 11/12/14 09/03/18 History insulin aspart U-100 10 - 50 unit SC TIDM #0 03/07/16 09/03/18 History metoprolol succinate [Toprol XL] 100 mg PO QAM #0 03/07/16 09/03/18 History metformin 1,000 mg PO BID 05/16/18 09/03/18 History vitamin B complex 1 tab PO QAM 07/22/18 09/03/18 History aspirin [Ecotrin Low Strength] 81 mg PO QAM #30 tab 08/14/18 09/03/18 Rx clopidogrel 75 mg PO QAM #30 tab 08/14/18 09/03/18 Rx ertapenem 1 gm IV DAILY 35 Days ea 08/14/18 08/26/18 Rx furosemide 40 mg PO DAILY #30 tab 08/14/18 09/03/18 Rx sennosides-docusate sodium [Senna 2 tab PO BID #3 tab 08/14/18 09/03/18 Rx with Docusate Sodium] tamsulosin 0.4 mg PO HS #3 cap 08/14/18 09/03/18 Rx acetaminophen 650 mg PO Q6H PRN 08/26/18 09/03/18 History bisacodyl [Dulcolax (bisacodyl)] 10 mg NC DAILY PRN 08/26/18 09/03/18 History cholecalciferol (vitamin D3) 08/26/18 History [Vitamin D3] cyanocobalamin (vitamin B-12) 1,000 mcg PO DAILY 08/26/18 09/03/18 History [Vitamin B-12] hiuavngj-dvvgeqr-wzudpbw ea PO 08/26/18 History [Insta-Glucose] glucagon (human recombinant) mg 08/26/18 History [Glucagon Emergency Kit (human)] magnesium hydroxide [Milk of 30 ml PO DAILY PRN 08/26/18 09/03/18 History Magnesia] oxycodone 10 mg PO Q6H PRN 08/26/18 09/03/18 History sodium phosphates 118 ml NC DAILY PRN 08/26/18 09/03/18 History fentanyl 1 patch TRANSDERMAL Q72H 09/03/18 09/03/18 History insulin detemir U-100 7 unit SUBCUT BID 09/03/18 09/03/18 History levofloxacin [Levaquin] 750 mg PO DAILY 09/03/18 09/03/18 History Patient History Medical History Difficult 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 Admitted [facility] 10/18/11 for onset of incapacitating cervical myelopathy. 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 Pt had c-spine surgery, subsequent prolonged hospital admission, complicated post-op course. Difficult intubation Sudden cardiac Post-op 2011 [facility]. Now has ICD. Sleep apnea PT NOT CURRENTLY CPAP 2/2 recurrent sinus infections. WILL SEE SLEEP MEDICINE/DR. ARCHULETA LATE 2017 Diabetes mellitus, type 2 IDDM. Degenerative disc disease Chronic back pain CHRONIC PAIN IN LEFT LEG Ischemic cardiomyopathy EF WNL 11/2017 CAD (coronary artery disease) s/p triple CABG 2002 Full dentures (Acute) Obese (Acute) Heart disease (Acute) HTN (hypertension) (Acute) High cholesterol (Acute) Surgical History History of esophagogastroduodenoscopy (EGD) History of colonoscopy History of cardiac cath 2011 AT [facility] - UNSURE IF HE HAS STENTS. History of tracheostomy Hx of transurethral resection of prostate History of cataract extraction with lens replacement Hx of tonsillectomy (Acute) H/O cervical spine surgery (Acute) ACDI C3-4, C7 corpectomy, removal of C7 intramedullary mass. History of lumbar spinal fusion (Acute) S/P triple vessel bypass (Acute) [facility], 2002 Family History Other No pertinent family history Social History Communication Ability: Impaired Beliefs That Will Affect Care: Holiness marital status: Current Living Situation: Spouse and [facility] Current Living Situation Comment: [facility] at [facility] for rehab s/p lumbar surgery Feels Safe at Home: Yes Smoking Status: Never smoker Hx Alcohol Use: No Hx Substance Use: No Review of Systems All systems were reviewed and are negative except as per HPI Physical Exam Vital Signs (Past 24 Hours): Last Vital Signs Temp 36.7 C 09/05/18 12:00 Pulse 76 09/05/18 12:00 Resp 18 09/05/18 12:00 BP 136/79 09/05/18 12:00 Pulse Ox 98 09/05/18 12:00 Constitutional: WD/WN, vitals as above comfortable; no acute distress Eyes: PERRL, conjunctivae normal, anicteric sclerae ENMT: external ear and nose normal, oropharynx normal Neck: trachea midline, no thyromegaly neck nontender Respiratory: normal respiratory effort, lungs clear to auscultation normal percussion; does not use accessory muscles Cardiovascular: Rate/Rhythm: regular rate and regular rhythm Heart Sounds: normal S1 and normal S2; no gallop, no murmur and no cardiac rub Vessels: normal peripheral pulses; no JVD Gastrointestinal (Abdomen): normal bowel sounds, soft, nontender, no hepatosplenomegaly Musculoskeletal: no cyanosis or clubbing, extremities motor strength 5/5 Spine: thoracic spine normal to inspection and lumbar spine normal to inspection; no cervical spinal tenderness Skin: no rashes, warm and dry normal turgor; no lesions Neurologic: moves all extremities and awake Speech / Cognition: + abnormal speech Psychiatric: A+Ox3, euthymic affect Orientation: cooperative Lymphatic: no cervical or axillary lymphadenopathy no inguinal lymphadenopathy Results & Data Laboratory Results BMP 09/05/18 08:28 Sodium 140 Potassium 3.5 Chloride 108 H Carbon Dioxide 28 BUN 21 H Creatinine 0.58 L D Glucose 94 Calcium 8.7 Diagnostic Findings Microbiology 09/03/18 19:18 Blood Blood Culture - Preliminary No growth to date. 09/03/18 16:00 Blood Blood Culture - Preliminary No growth to date. LUMBAR SPINE CT CT DOSE: HISTORY: Back pain TECHNIQUE: Multiaxial CT images of the lumbar spine were performed and reformatted in the sagittal and coronal plane without the use of contrast. A dose lowering technique was utilized adhering to the principles of ALARA. COMPARISON: Lumbar spine 08/10/2018. FINDINGS: Postoperative changes redemonstrated with L3-L4, L4-L5 and L5 disc ectomy. Laminectomy changes are noted at L3-L5 with evidence of prior hardware removal at L5-S1. Transverse fracture noted about the posterior L3 vertebral body with 5 mm retropulsion. The degree of retropulsion appears similar but is obscured by the metallic artifact. The fracture extends to the junction of the bilateral pedicles, unchanged.. Healing fracture of the right L3 transverse process is again noted. The hardware appears intact. The remaining vertebral bodies appear unremarkable. Multilevel spondylitic spurring with facet arthrosis. Remote L1 compression deformity. Mild periprosthetic lucency surrounding the L3 pedicle screws which is new from the prior study. Moderate erosive change seen at the L2-L3 endplates and adjacent sclerosis. This is new from the prior study. A horseshoe kidney is noted. Paraspinal soft tissue edema is noted at the L3-L5 levels. Similar size in the periphery calcified fluid collection at the laminectomy sites from the L3-L5 level. This measures 8.2 x 7.1 x 4.1 cm. This contains multiple antibiotic pledgets at this time. Evaluation of the central canal is essentially nondiagnostic due to the CT technique and metallic artifact. IMPRESSION: 1. Interval development of mild erosive changes at the L2-L3 endplates. This is concerning for a developing discitis/osteomyelitis. 2. There is also been interval development of periprosthetic lucency at the bilateral L3 pedicle screws. This may represent superimposed infection. 3. Redemonstration of the postoperative fluid collection at the laminectomy sites. This is similar in size compared to the prior study but now demonstrate multiple antibiotic pledgets. 4. Healing fracture of the posterior L3 vertebral body with 5 mm retropulsion. The fractures extend into the bilateral pedicles. 5. Nondisplaced healing fracture involves the base of the right transverse process. 6. These findings were discussed Dr. Avendano at 9:30 AM on 08/29/2018. Electronically signed by: Frankie Barrow M.D. 09/04/2018 9:30 AM Dictated: 09/04/18 0914 Transcribed: 09/04/18 0914
[2018-09-05] MEDS ORDERED: Nursing to Pharmacy Communication ONE ×2 (16:40→23:25)
--- NOTE | 2018-09-05 17:11 | Hospitalist Progress Note ---
Date of Service September 05, 2018 Assessment & Plan (1) Weakness of lower extremity: 67 y/o M with a complex medical history including CAD, sudden cardiac , combined CHF, DM II, HTN, HLD, ANTONIO, chronic anemia, multiple spinal surgeries Admitted because of progressive lower extremity weakness, L lower back pain Imaging obtained in the ER included a CT head, CTA head and neck and aan abdominal CT, were unremarkable The abdominal CT demonstrated a large posterior fluid collection containing multiple radiopaque pledgets which represent the implanted antibiotic beads. Lower extremity weakness possible neural encroachment, doing the same, Urology saw patient, patient is in moderate to high risk of perioperative cardiac complications because of significant cardiac disease and history of TN in previous surgery spine surgeon input appreciated, plan surgery after cardiology clear, has been contacted surgeon, X-rays disease input appreciated, fluid collection on CT, no fevers, however, leukocytosis, cont Ertapenem. Continue n.p.o. AMS, slurred speech, totally resolved, Likely metabolic hx of CAD - no evidence of ACS continue ASA, Plavix, statin, B angy DM II - placed on a SS and Lantus HTN/HLD - cont Metoprolol and Atorvastatin Continue to hold Lasix and Losartan CHF, seems euvolemic, continue current medication, Possible mild protein malnutrition, will need to be addressed prior to DC as it can affect healing hronic sinusitis. There is a large mastoid effusion on CT. ENT referral on DC would be appopriate. Full code - SCDs Discussed with patient and , answered all questions Subjective Continue awake alert and orientated no Fever and chill, Lower extremity weakness the same, no urine or stool incontinence Generally feeling tired, denies chest pain palpitation Denies nausea vomiting abdominal pain diarrhea constipate Denies dysuria urgency frequency Other review of system were negative Physical Exam Vital Signs (Past 24 Hours): Last Vital Signs Temp 37.1 C 09/05/18 15:43 Pulse 76 09/05/18 15:43 Resp 18 09/05/18 15:43 BP 136/76 09/05/18 15:43 Pulse Ox 99 09/05/18 15:43 Physical Exam: General: Mild pale, chronically ill looking, awake alert and orientated ENT: No erythema or exudates, no thrush Eyes: SERVANDO, EOMI Head and neck: Normocephalic, atraumatic, No JVD, neck is supple. Chest/heart: Nontender, S1,2, RRR, no murmurs, no gallops Lungs: CTAB, no wheezing or crackles Abdomen: Nontender, nondistended, BS+ Neuro: Lower extremity weakness associated with limited range of motion. BL and in the perineum sensation is intact Musculoskeletal: No joint inflammation, muscle tenderness Skin: No acute rashes or ulcers - the lumbar surgical site appears to have healed well Extremities: No clubbing, cyanosis, edema Results & Data Laboratory Results Laboratory Results - last 24 hr 09/04/18 09/04/18 09/05/18 18:03 23:50 06:25 Sodium Potassium Chloride Carbon Dioxide Anion Gap BUN Creatinine Est Cr Clr Drug Dosing Est GFR ( Amer) Est GFR (Non-Af Amer) BUN/Creatinine Ratio Glucose POC Glucose 112 H 111 H 96 Calcium Magnesium 09/05/18 09/05/18 09/05/18 08:28 12:04 13:14 Sodium 140 Potassium 3.5 Chloride 108 H Carbon Dioxide 28 Anion Gap 5.0 BUN 21 H Creatinine 0.58 L D Est Cr Clr Drug Dosing 140.0 Est GFR ( Amer) 124.0 Est GFR (Non-Af Amer) 107.0 BUN/Creatinine Ratio 35.5 H Glucose 94 POC Glucose 96 Calcium 8.7 Magnesium 1.6 L 1.9 Microbiology 09/03/18 19:18 Blood Blood Culture - Preliminary No growth to date. 09/03/18 16:00 Blood Blood Culture - Preliminary No growth to date.
[2018-09-05] MEDS ORDERED: SODIUM CHLORIDE 0.9% 1000ML 1,000 ML IV SCH (17:45)
[2018-09-05] MEDS: fentaNYL 25 MCG/HR TDSY TD SCH (17:49)
[2018-09-05] MEDS: TAMSULOSIN HCL 0.4 MG CAP PO SCH (20:39)
[2018-09-05] MEDS: ATORVASTATIN 40 MG TAB PO SCH (20:40)
[2018-09-06] MEDS: INSULIN ASPART 100 UNITS/ML 3 ML PEN SC SCH ×5 (00:17→20:46)
[2018-09-06] MEDS: CHECK FENTANYL PATCH PLACEMENT SCH ×3 (00:17→18:33)
[2018-09-06 06:26] LABS: Basophils # (auto) 0.03 K/uL (0-0.2); Basophils % (auto) 0.3 %; Eosinophils # (auto) 0.08 K/uL (0-0.5); Eosinophils % (auto) 0.8 %; Hematocrit (blood only) 29.5 % (42-52); Hemoglobin 9.4 g/dL (14.0-18.0); Immature Granulocytes # (auto) 0.09 K/uL (0.00-0.02); Immature Granulocytes % (auto) 0.9 %; Lymphocytes # (auto) 0.84 K/uL (1.2-3.4); Lymphocytes % (auto) 8.7 %; Mean Corpuscular Hgb Conc 31.9 g/dL (32-36); Mean Platelet Volume 8.8 fL (7.4-10.4); Monocytes # (auto) 0.86 K/uL (0.11-0.59); Monocytes % (auto) 8.9 %; Neutrophils % (auto) 80.4 %; Platelet Count 244 K/uL (130-400); RDW Coefficient of Variation 15.2 % (11.5-14.5); RDW Standard Deviation 47.4 fL (36.4-46.3); Red Blood Count 3.47 M/uL (4.7-6.1)
[2018-09-06 06:48] LABS: BUN Creatinine Ratio 31.4 (10-20); Calcium 8.5 mg/dl (8.5-10.1); Creatinine Clr Calc Pharmacy 153.3 ml/min; Est GFR (African American) 128.7; Magnesium 1.9 mg/dl (1.8-2.4); Phosphorus 2.6 mg/dl (2.5-4.9); Potassium 3.5 mmol/L (3.5-5.1)
[2018-09-06] MEDS: INSULIN DETEMIR FLEXPEN/FLEX TOUCH 100 UNITS/ML 3ML SC SCH ×2 (10:01→20:46)
[2018-09-06] MEDS: ERTAPENEM SODIUM 1,000 MG in SODIUM CHLORIDE 0.9% 50 ML IV SCH (10:01)
[2018-09-06] MEDS: CYANOCOBALAMIN 500 MCG TABLET (VITAMIN B-12) PO SCH (10:02)
[2018-09-06] MEDS: METOPROLOL SUCC 50MG EXT REL TAB PO SCH (10:02)
[2018-09-06] MEDS: ASPIRIN 81 MG ECTAB PO SCH (10:02)
[2018-09-06] MEDS: CLOPIDOGREL BISULFATE 75 MG TAB PO SCH (10:02)
[2018-09-06] MEDS: DOCUSATE SODIUM/SENNA 50/8.6MG TAB PO SCH ×2 (10:03→20:54)
[2018-09-06] MEDS: CLOTRIMAZOLE 1% CR 15 GM TUBE EXT SCH ×2 (10:03→20:46)
--- NOTE | 2018-09-06 11:36 | Orthopedic Progress Note ---
Date of Service September 06, 2018 Assessment & Plan (1) Leg weakness, bilateral: I long discussion today with the patient's reviewing his clinical presentation and imaging. We are considering possible return to the OR to evacuate any fluid collection possibly remove the current instrumentation vertically at the L3 levels which indicate loosening. With this would require possibly extending the fusion from L2-L4 for additional stabilization of the spine. This may need to be a staged procedure. I have emphasized to the family my concerns regarding his cardiac condition and the risks inherent to another surgery. The emphasized that he has expressed interest in pursuing surgery in h opes of some improvement in pain and function. They understand this is no guarantee that this would necessarily occur. At this time we will await medicines evaluation and input. And may consider return to the OR early next week. Present on Admission?: Yes Subjective Patient somewhat delirious today. He does not appear to be in any significant discomfort however. Physical Exam Vital Signs (Past 24 Hours): Last Vital Signs Temp 36.2 C L 09/06/18 07:59 Pulse 74 09/06/18 07:59 Resp 17 09/06/18 07:59 BP 134/76 09/06/18 07:59 Pulse Ox 99 09/06/18 07:59 Physical Exam: On exam he does exhibit plus 5 out of 5 plantar flexion dorsiflexion he has 3+/5 bilateral quadriceps. No tension signs. Sensory appears to be symmetric and intact.
[2018-09-06] MEDS: FINASTERIDE 5 MG TAB PO SCH (11:44)
--- NOTE | 2018-09-06 16:54 | Hospitalist Progress Note ---
Date of Service September 06, 2018 Assessment & Plan (1) Weakness of lower extremity: 67 y/o M with a complex medical history including CAD, sudden cardiac , combined CHF, DM II, HTN, HLD, ANTONIO, chronic anemia, multiple spinal surgeries Admitted because of progressive lower extremity weakness, L lower back pain Imaging obtained in the ER included a CT head, CTA head and neck and aan abdominal CT, were unremarkable The abdominal CT demonstrated a large posterior fluid collection containing multiple radiopaque pledgets which represent the implanted antibiotic beads. Lower extremity weakness possible neural encroachment, some possibly related to infection -Discussed with spine surgery. Concern is how much benefit he will get from a decompressive surgery, especially given his current state with limited ability to truly rehab. That said ideally we could possibly get him through the surgery to help decompress the nerves, the problem is that he is not low risk for cardiac complications with the surgery. We will continue to work together with cardiology in that regard. -Continue antibiotics and supportive care AMS, slurred speech-seems to be on and off. He shows no focal neuro deficits. I have stopped his as needed morphine, in case this is a possible contributor. Otherwise his hospitalization/pain/infection all could be possible contributors (if pain appears to be uncontrolled and obviously resume the morphine) continue vigilance for other causes of delirium as well. CAD - no evidence of ACS at this time, but he does appear to be significant perioperative risk continue ASA, Plavix, statin, B angy, supportive care DM II -sugars under reasonable control, continue current care HTN/HLD - cont Metoprolol and Atorvastatin Continue to hold Lasix and Losartan CHF, seems euvolemic, continue current medication, and follow clinically Possible mild protein malnutrition -encourage oral intake Chronic sinusitis. There is a large mastoid effusion on CT. ENT referral on DC would be appopriate. Full code - SCDs Subjective Very difficult to follow, mumbling, although he admits that he is mumbling. He speaks very fast. He does appear to be a little bit delirious. It is hard to tell how true or reliable his history seems to have a degree of back pain, he seems to express feeling discouraged about everything is going through. It is hard to tell how much of the pain is in his back versus going down his legs. Review of Systems See above, with his mumbling, and a degree of what appears to be delirium, it is hard to tell how reliable his HPI or review of systems is, it is obtained as best as possible as above documented. Physical Exam Vital Signs (Past 24 Hours): Last Vital Signs Temp 36.8 C 09/06/18 15:42 Pulse 82 09/06/18 15:42 Resp 18 09/06/18 15:42 BP 159/73 H 09/06/18 15:42 Pulse Ox 98 09/06/18 15:42 Physical Exam: In general he is in bed, he is oriented to person and year, as far as place he relates for an lock [place]. He cannot state the president, initially saying Santi and saying no that is not it, then eventually saying it is Randy Santi. He seems aware of his situation, although only loosely so. HEENT normocephalic atraumatic mucous membranes moist Cardio is regular without rubs or gallops. Lungs clear to auscultation bilaterally no rales rhonchi or wheeze with good effort. Skin shows no rashes no pallor or icterus. Neuro shows cranial nerves II through XII be grossly intact gross motor and sensory are intact with no focal deficits. Mental status as above
[2018-09-06] MEDS: ATORVASTATIN 40 MG TAB PO SCH (20:44)
[2018-09-06] MEDS: TAMSULOSIN HCL 0.4 MG CAP PO SCH (20:45)
[2018-09-07] MEDS: CHECK FENTANYL PATCH PLACEMENT SCH ×4 (01:07→23:40)
[2018-09-07 06:49] LABS: Basophils # (auto) 0.04 K/uL (0-0.2); Basophils % (auto) 0.5 %; Eosinophils % (auto) 1.1 %; Hematocrit (blood only) 31.3 % (42-52); Immature Granulocytes # (auto) 0.08 K/uL (0.00-0.02); Immature Granulocytes % (auto) 0.9 %; Lymphocytes # (auto) 1.13 K/uL (1.2-3.4); Lymphocytes % (auto) 12.9 %; Mean Corpuscular Hgb Conc 31.9 g/dL (32-36); Mean Corpuscular Volume 85.3 fL (80-100); Mean Platelet Volume 8.8 fL (7.4-10.4); Monocytes # (auto) 0.78 K/uL (0.11-0.59); Monocytes % (auto) 8.9 %; Neutrophils # (auto) 6.66 K/uL (1.4-6.5); Neutrophils % (auto) 75.7 %; Platelet Count 259 K/uL (130-400); RDW Coefficient of Variation 15.5 % (11.5-14.5); RDW Standard Deviation 48.2 fL (36.4-46.3); Red Blood Count 3.67 M/uL (4.7-6.1); White Blood Count 8.79 K/uL (4.8-10.8)
[2018-09-07 07:10] LABS: BUN Creatinine Ratio 25.3 (10-20); Calcium 8.3 mg/dl (8.5-10.1); Creatinine Clr Calc Pharmacy 135.1 ml/min; Est GFR (African American) 122.3; Est GFR (Non-African American) 105.5; Potassium 3.6 mmol/L (3.5-5.1)
[2018-09-07] MEDS: INSULIN ASPART 100 UNITS/ML 3 ML PEN SC SCH ×4 (07:30→20:51)
--- NOTE | 2018-09-07 08:56 | Hospitalist Progress Note ---
Date of Service September 07, 2018 Assessment & Plan (1) Weakness of lower extremity: 67 y/o M with a complex medical history including CAD, sudden cardiac , combined CHF, DM II, HTN, HLD, ANTONIO, chronic anemia, multiple spinal surgeries Admitted because of progressive lower extremity weakness, L lower back pain concern for impingement at L3 on imaging Imaging obtained in the ER included a CT head, CTA head and neck and aan abdominal CT, were unremarkable The abdominal CT demonstrated a large posterior fluid collection containing multiple radiopaque pledgets which represent the implanted antibiotic beads. Lower extremity weakness possible neural encroachment, some possibly related to infection -Discussed with spine surgery. Likely to proceed to decompressive surgery 09/09/18, -Continue antibiotics and supportive care AMS, slurred speech-seems to be on and off. He shows no focal neuro deficits. Stopped his as needed morphine. hospitalization/pain/infection all could be possible contributors CAD - no evidence of ACS at this time, the pt did have a Left heart cath, 06/28 w ith multivessel [place] CAD but with patent DELATORRE, and Indu, he did have a dobutamine stress in 07/29 without suggestion of reversable ischemia continue ASA, Plavix, statin, B angy, supportive care DM II -remain under reasonable control HTN/HLD - cont Metoprolol and Atorvastatin Continue to hold Lasix and Losartan CHF, seems euvolemic, continue current medication Possible mild protein malnutrition -encourage oral intake Chronic sinusitis. There is a large mastoid effusion on CT. ENT referral on DC would be appopriate. Full code - SCDs Subjective ROS: Appears chronically ill and lethargic No double vision blurry vision No problems with speech or swallowing No palpitations, chest pain or pressure No Wheezing or breathing issues No abdominal pain nausea vomiting diarrhea No burning urine urine frequency or changes in color No focal joint pain or muscle pain No skin rashes or oral lesions No unusual bruising or bleeding Persistent focused back pain persistent radicular numbness confusion Review of Systems Patient is able to be awoken he can answer yes/no questions he sleeps easily I informed him of the plans for possibly proceeding to surgery on September 09 he continues with leg weakness and focal lower back pain. No new complaints or problems although his overall lethargy is concerning Physical Exam Vital Signs (Past 24 Hours): Last Vital Signs Temp 36.5 C 09/07/18 07:05 Pulse 90 09/07/18 07:05 Resp 18 09/07/18 07:05 BP 134/75 09/07/18 07:05 Pulse Ox 98 09/07/18 07:05 The patient appeared lethargic but without focal deficits Vital signs as documented. Head exam is unremarkable. normocephalic, atraumatic Neck is without jugular venous distension, thyromegaly, or lymphademopathy Lungs are clear to auscultation and percussion. Cardiac exam reveals Rhythm is regular. First and second heart sounds normal. Abdominal exam reveals normal bowel sounds, no masses, no organomegaly Psychologically seems depressed Skin is warm Dry without bruises or lesions
[2018-09-07] MEDS: INSULIN DETEMIR FLEXPEN/FLEX TOUCH 100 UNITS/ML 3ML SC SCH ×2 (09:56→20:52)
[2018-09-07] MEDS: ERTAPENEM SODIUM 1,000 MG in SODIUM CHLORIDE 0.9% 50 ML IV SCH (09:56)
[2018-09-07] MEDS: CLOPIDOGREL BISULFATE 75 MG TAB PO SCH (09:57)
[2018-09-07] MEDS: METOPROLOL SUCC 50MG EXT REL TAB PO SCH (09:57)
[2018-09-07] MEDS: FINASTERIDE 5 MG TAB PO SCH (09:57)
[2018-09-07] MEDS: CYANOCOBALAMIN 500 MCG TABLET (VITAMIN B-12) PO SCH (09:57)
[2018-09-07] MEDS: CLOTRIMAZOLE 1% CR 15 GM TUBE EXT SCH ×2 (09:57→20:55)
[2018-09-07] MEDS: ASPIRIN 81 MG ECTAB PO SCH (09:57)
[2018-09-07] MEDS: DOCUSATE SODIUM/SENNA 50/8.6MG TAB PO SCH ×2 (10:40→21:13)
[2018-09-07] MEDS: TAMSULOSIN HCL 0.4 MG CAP PO SCH (20:53)
[2018-09-07] MEDS: ATORVASTATIN 40 MG TAB PO SCH (20:54)
[2018-09-08] MEDS: ERTAPENEM SODIUM 1,000 MG in SODIUM CHLORIDE 0.9% 50 ML IV SCH (08:21)
[2018-09-08] MEDS: CHECK FENTANYL PATCH PLACEMENT SCH ×3 (08:22→23:59)
[2018-09-08] MEDS: CYANOCOBALAMIN 500 MCG TABLET (VITAMIN B-12) PO SCH (08:23)
[2018-09-08] MEDS: CLOPIDOGREL BISULFATE 75 MG TAB PO SCH (08:23)
[2018-09-08] MEDS: ASPIRIN 81 MG ECTAB PO SCH (08:23)
[2018-09-08] MEDS: FINASTERIDE 5 MG TAB PO SCH (08:23)
[2018-09-08] MEDS: METOPROLOL SUCC 50MG EXT REL TAB PO SCH (08:23)
[2018-09-08] MEDS: CLOTRIMAZOLE 1% CR 15 GM TUBE EXT SCH ×2 (08:24→21:13)
[2018-09-08] MEDS: DOCUSATE SODIUM/SENNA 50/8.6MG TAB PO SCH ×2 (08:46→21:14)
[2018-09-08] MEDS: INSULIN ASPART 100 UNITS/ML 3 ML PEN SC SCH ×4 (09:21→21:17)
[2018-09-08] MEDS: INSULIN DETEMIR FLEXPEN/FLEX TOUCH 100 UNITS/ML 3ML SC SCH ×2 (09:21→21:16)
--- NOTE | 2018-09-08 12:13 | Hospitalist Progress Note ---
Date of Service September 08, 2018 Assessment & Plan (1) Weakness of lower extremity: 67 y/o M with a complex medical history including CAD, sudden cardiac , combined CHF, DM II, HTN, HLD, ANTONIO, chronic anemia, multiple spinal surgeries Admitted because of progressive lower extremity weakness, L lower back pain concern for impingement at L3 on imaging Imaging obtained in the ER included a CT head, CTA head and neck and aan abdominal CT, were unremarkable The abdominal CT demonstrated a large posterior fluid collection containing multiple radiopaque pledgets which represent the implanted antibiotic beads. Lower extremity weakness possible neural encroachment, some possibly related to infection -Discussed with spine surgery. - tentatively plan for OR on 09/10/18 -Continue antibiotics and supportive care AMS, slurred speech-seems to be on and off. He shows no focal neuro deficits. Stopped his as needed morphine. hospitalization/pain/infection all could be possible contributors CAD - no evidence of ACS at this time, the pt did have a Left heart cath, 06/28 with multivessel [place] CAD but with patent DELATORRE, and Indu, he did have a dobutamine stress in 07/29 without suggestion of reversable ischemia continue ASA, Plavix, statin, B angy, supportive care continues to be chest pain free, vitals stable would be at risk for cardiovascular complications, recommend tele after surgery DM II -remain under reasonable control diabetic diet, monitor for hypoglycemia HTN/HLD - cont Metoprolol and Atorvastatin Continue to hold Lasix and Losartan CHF, seems euvolemic, continue current medication Possible mild protein malnutrition -encourage oral intake Chronic sinusitis. There is a large mastoid effusion on CT. ENT referral on DC would be appopriate. Full code - SCDs Subjective patient lethargic in bed, says that he is tired, just wants to sleep a lot denies any back pain currently, says that his legs are weak says that he ate breakfast, unsure if that is accurate says he moved bowels a few days ago discussed possible OR on Saturday, he says that he is on board with that plan says that he understands the cardiovascular risks, wants surgery if it will possibly help Review of Systems All systems reviewed & are unremarkable except as noted in HPI & below Constitutional: + fatigue and + weakness; no fever and no sweats Respiratory: + dyspnea on exertion; no dyspnea Cardiovascular: + dyspnea on exertion; no chest pain, no chest pain at rest, no radiating jaw, neck or arm pain, no syncope and no edema Gastrointestinal: no abdominal pain, no nausea, no vomiting, no constipation and no diarrhea/loose stools Physical Exam Vital Signs (Past 24 Hours): Last Vital Signs Temp 36.5 C 09/08/18 07:21 Pulse 80 09/08/18 07:21 Resp 18 09/08/18 07:21 BP 116/68 09/08/18 07:21 Pulse Ox 97 09/08/18 07:21 Constitutional: WD/WN, vitals as above + obese Eyes: PERRL, conjunctivae normal, anicteric sclerae ENMT: external ear and nose normal, oropharynx normal Neck: trachea midline, no thyromegaly Respiratory: normal respiratory effort, lungs clear to auscultation Auscultation: + diminished lung sounds (bases bilaterally) Cardiovascular: RRR, no murmur, no edema Gastrointestinal (Abdomen): normal bowel sounds, soft, nontender, no hepatosplenomegaly Musculoskeletal: Spine: normal thoraco-lumbar ROM Extremities: + abnormal strength (generalized weakness in legs bilaterally); no cyanosis and no clubbing Skin: no rashes, warm and dry Neurologic: normal touch/pain/proprioception and CN's II-XI intact bilaterally Speech / Cognition: normal speech Motor/Sensory: no tremor Psychiatric: Orientation: oriented x 3 and cooperative; + not alert (lethargic) Eye Contact: + fair eye contact Lymphatic: no cervical or axillary lymphadenopathy Results & Data Laboratory Results Laboratory Results - last 24 hr 09/07/18 09/07/18 09/08/18 17:15 20:16 08:21 POC Glucose 98 229 H 120 H Medications Administered Current Inpatient Medications Acetaminophen (Tylenol) 650 mg PO Q6H PRN PRN Reason: Pain Stop: 10/03/18 21:51 Aspirin (Ecotrin Ectab) 81 mg PO QAM [facility] Stop: 10/04/18 08:59 Last Admin: 09/08/18 08:23 Dose: 81 mg Documented by: Atorvastatin Calcium (Lipitor) 40 mg PO HS KAYLYNN Stop: 10/03/18 21:51 Last Admin: 09/07/18 20:54 Dose: 40 mg Documented by: Bisacodyl (Dulcolax) 10 mg ND DAILY PRN PRN Reason: Constipation Stop: 10/03/18 21:51 Clopidogrel Bisulfate (Plavix) 75 mg PO QAM [facility]NN Stop: 10/04/18 08:59 Last Admin: 09/08/18 08:23 Dose: 75 mg Documented by: Clotrimazole (Lotrimin 1%) 1 appln EXT Q12 [facility]LYNN Stop: 09/12/18 20:59 Last Admin: 09/08/18 08:24 Dose: 1 appln Documented by: Cyanocobalamin (Vitamin B-12) 1,000 mcg PO DAILY KAYLYNN Stop: 10/04/18 08:59 Last Admin: 09/08/18 08:23 Dose: 1,000 mcg Documented by: Dextrose (Dextrose 50%) 25 - 50 ml IV UD PRN; Protocol PRN Reason: Hypoglycemia Protocol Stop: 10/03/18 22:14 Fentanyl (Duragesic) 25 mcg TD Q72H KAYLYNN Stop: 09/19/18 17:29 Last Admin: 09/05/18 17:49 Dose: 25 mcg Documented by: Finasteride (Proscar) 5 mg PO QAM [facility] Stop: 10/04/18 08:59 Last Admin: 09/08/18 08:23 Dose: 5 mg Documented by: Glucagon (Glucagen) 1 mg IM UD PRN; Protocol PRN Reason: Hypoglycemia Protocol Stop: 10/03/18 22:14 Glucose (Glucose 40%) 15 - 30 gm PO UD PRN; Protocol PRN Reason: Hypoglycemia Protocol Stop: 10/03/18 22:14 Glucose (Dex4 Glucose) 4 - 8 tabs PO UD PRN; Protocol PRN Reason: Hypoglycemia Protocol Stop: 10/03/18 22:14 Heparin Sodium (Beef Lung) (Heparin Sod 10 Unit/Ml Flush) 5 ml FLUSH PRN PRN PRN Reason: Flush Stop: 10/06/18 01:04 Last Admin: 09/08/18 10:24 Dose: 5 ml Documented by: Ertapenem 1,000 mg/ Sodium (Chloride) 60 mls @ 100 mls/hr IV Q24H KAYLYNN Stop: 09/13/18 21:59 Last Infusion: 09/08/18 10:25 Dose: Infused Documented by: Insulin Aspart (Novolog Flexpen) 0 units SC ACHS KAYLYNN Stop: 10/06/18 07:29 Last Admin: 09/08/18 09:21 Dose: 2 units Documented by: Insulin Detemir (Levemir Flextouch) 7 units SC BID [facility] Stop: 10/04/18 15:29 Last Admin: 09/08/18 09:21 Dose: 7 units Documented by: Metoprolol Succinate (Toprol Xl) 100 mg PO QAM [facility] Stop: 10/04/18 08:59 Last Admin: 09/08/18 08:23 Dose: 100 mg Documented by: Miscellaneous (Fentanyl Patch Check Placement) 1 ea N/A QS [facility] Stop: 10/04/18 07:59 Last Admin: 09/08/18 08:22 Dose: 1 ea Documented by: Miscellaneous (Fentanyl Patch Remove & Waste) 1 ea N/A Q72H [facility] Stop: 10/03/18 22:28 Last Admin: 09/06/18 22:47 Dose: Not Given Documented by: Miscellaneous (Carbohydrates For Hypoglycemia) 15 - 30 gm PO UD PRN PRN Reason: Hypoglycemia Treatment Stop: 10/03/18 22:14 Miscellaneous (Fentanyl Patch Remove & Waste) 1 ea N/A Q72H [facility] Stop: 10/05/18 17:29 Last Admin: 09/05/18 17:50 Dose: 1 ea Documented by: Morphine Sulfate (Morphine Sulfate) 3 mg IV Q3H PRN PRN Reason: Pain Stop: 09/17/18 21:51 Last Admin: 09/06/18 01:54 Dose: 3 mg Documented by: Senna/Docusate Sodium (Senokot S) 2 tab PO BID [facility] Stop: 10/03/18 21:51 Last Admin: 09/08/18 08:46 Dose: Not Given Documented by: Sodium Biphosphate/Sodium Phosphate (Fleet Enema) 132 ml ND DAILY PRN PRN Reason: Constipation Stop: 10/03/18 21:51 Tamsulosin HCl (Flomax) 0.4 mg PO HS [facility] Stop: 10/03/18 21:51 Last Admin: 09/07/18 20:53 Dose: 0.4 mg Documented by:
--- NOTE | 2018-09-08 15:03 | Infectious Disease Progress Nt ---
Date of Service September 08, 2018 Assessment & Plan (1) Paraspinal abscess: 67 yo male under treatment for discitis, osteomyelitis, and paraspinal abscess with Serratia, admitted with progressive weakness, persistent collection on CT. plans for OR tomorrow noted. Patient to continue on IV antibiotics. Will follow. Subjective Patient seen in follow-up for paraspinal abscess. States back pain is minimal at present, still complaining of leg weakness. No fever. Plans for possible orthopedic surgery noted. Review of Systems All systems reviewed & are unremarkable except as noted in HPI & below Physical Exam Vital Signs (Past 24 Hours): Last Vital Signs Temp 36.5 C 09/08/18 07:21 Pulse 80 09/08/18 07:21 Resp 18 09/08/18 07:21 BP 116/68 09/08/18 07:21 Pulse Ox 97 09/08/18 07:21 Constitutional: WD/WN, vitals as above comfortable; no acute distress Eyes: PERRL, conjunctivae normal, anicteric sclerae ENMT: external ear and nose normal, oropharynx normal Neck: trachea midline, no thyromegaly neck nontender Respiratory: normal respiratory effort, lungs clear to auscultation normal percussion; does not use accessory muscles Cardiovascular: Rate/Rhythm: regular rate and regular rhythm Heart Sounds: normal S1 and normal S2; no gallop, no murmur and no cardiac rub Vessels: normal peripheral pulses; no JVD Gastrointestinal (Abdomen): normal bowel sounds, soft, nontender, no hepatosplenomegaly Musculoskeletal: no cyanosis or clubbing, extremities motor strength 5/5 Spine: thoracic spine normal to inspection and lumbar spine normal to inspection; no cervical spinal tenderness Skin: no rashes, warm and dry normal turgor; no lesions Neurologic: moves all extremities and awake Speech / Cognition: + abnormal speech Psychiatric: A+Ox3, euthymic affect Orientation: cooperative Lymphatic: no cervical or axillary lymphadenopathy no inguinal lymphad enopathy Results & Data Laboratory Results Laboratory Results - last 48 hr 09/06/18 09/06/18 09/06/18 16:10 20:27 20:29 WBC RBC Hgb Hct MCV MCH MCHC RDW Std Deviation RDW Coeff of Norbert Plt Count MPV Immature Gran % (Auto) Neut % (Auto) Lymph % (Auto) [place] % (Auto) Eos % (Auto) Baso % (Auto) Immature Gran # (Auto) Neut # (Auto) Lymph # (Auto) [place] # (Auto) Eos # (Auto) Baso # (Auto) Sodium Potassium Chloride Carbon Dioxide Anion Gap BUN Creatinine Est Cr Clr Drug Dosing Est GFR ( Amer) Est GFR (Non-Af Amer) BUN/Creatinine Ratio Glucose POC Glucose 102 H 87 83 Calcium 09/07/18 09/07/18 09/07/18 06:26 06:26 17:15 WBC 8.79 RBC 3.67 L Hgb 10.0 L Hct 31.3 L MCV 85.3 MCH 27.2 MCHC 31.9 L RDW Std Deviation 48.2 H RDW Coeff of Norbert 15.5 H Plt Count 259 MPV 8.8 Immature Gran % (Auto) 0.9 Neut % (Auto) 75.7 Lymph % (Auto) 12.9 [place] % (Auto) 8.9 Eos % (Auto) 1.1 Baso % (Auto) 0.5 Immature Gran # (Auto) 0.08 H Neut # (Auto) 6.66 H Lymph # (Auto) 1.13 L [place] # (Auto) 0.78 H Eos # (Auto) 0.10 Baso # (Auto) 0.04 Sodium 140 Potassium 3.6 Chloride 109 H Carbon Dioxide 25 Anion Gap 6.0 BUN 15 Creatinine 0.60 Est Cr Clr Drug Dosing 135.1 Est GFR ( Amer) 122.3 Est GFR (Non-Af Amer) 105.5 BUN/Creatinine Ratio 25.3 H Glucose 96 POC Glucose 98 Calcium 8.3 L 09/07/18 09/08/18 09/08/18 20:16 08:21 12:03 WBC RBC Hgb Hct MCV MCH MCHC RDW Std Deviation RDW Coeff of Norbert Plt Count MPV Immature Gran % (Auto) Neut % (Auto) Lymph % (Auto) [place] % (Auto) Eos % (Auto) Baso % (Auto) Immature Gran # (Auto) Neut # (Auto) Lymph # (Auto) [place] # (Auto) Eos # (Auto) Baso # (Auto) Sodium Potassium Chloride Carbon Dioxide Anion Gap BUN Creatinine Est Cr Clr Drug Dosing Est GFR ( Amer) Est GFR (Non-Af Amer) BUN/Creatinine Ratio Glucose POC Glucose 229 H 120 H 192 H Calcium Diagnostic Findings Microbiology 09/03/18 19:18 Blood Blood Culture - Preliminary No growth to date. 09/03/18 16:00 Blood Blood Culture - Preliminary No growth to date.
--- NOTE | 2018-09-08 15:41 | Orthopedic Progress Note ---
Date of Service September 08, 2018 Assessment & Plan (1) Leg weakness, bilateral: I long discussion with this patient today and his over the weekend regarding return to surgery. It would require exploration of the lumbar spine evacuation of any evidence of continued infection removal of instrumentation L3- 4 and possible extension of fusion from L to to L4. He understands this may be a staged procedure. We are strongly considering surgery Saturday a.m. Present on Admission?: Yes Subjective Patient not complaining of any back pain or leg pain. He is somewhat lethargic during our discussion. He is over cooperative with exam. Physical Exam Vital Signs (Past 24 Hours): Last Vital Signs Temp 36.5 C 09/08/18 07:21 Pulse 80 09/08/18 07:21 Resp 18 09/08/18 07:21 BP 116/68 09/08/18 07:21 Pulse Ox 97 09/08/18 07:21 Physical Exam: He continues to demonstrate reasonable strength plantar flexion dorsiflexion with bilateral quad deficits.
[2018-09-08] MEDS: fentaNYL 25 MCG/HR TDSY TD SCH (18:42)
[2018-09-08] MEDS: TAMSULOSIN HCL 0.4 MG CAP PO SCH (21:12)
[2018-09-08] MEDS: ATORVASTATIN 40 MG TAB PO SCH (21:12)
[2018-09-09] MEDS: ERTAPENEM SODIUM 1,000 MG in SODIUM CHLORIDE 0.9% 50 ML IV SCH (07:27)
[2018-09-09] MEDS: CHECK FENTANYL PATCH PLACEMENT SCH ×3 (07:28→23:51)
[2018-09-09 08:33] LABS: Basophils # (auto) 0.04 K/uL (0-0.2); Basophils % (auto) 0.5 %; Eosinophils # (auto) 0.16 K/uL (0-0.5); Eosinophils % (auto) 1.9 %; Hematocrit (blood only) 30.7 % (42-52); Hemoglobin 9.6 g/dL (14.0-18.0); Immature Granulocytes # (auto) 0.06 K/uL (0.00-0.02); Immature Granulocytes % (auto) 0.7 %; Lymphocytes # (auto) 1.13 K/uL (1.2-3.4); Lymphocytes % (auto) 13.4 %; Mean Corpuscular Hgb Conc 31.3 g/dL (32-36); Monocytes # (auto) 0.97 K/uL (0.11-0.59); Monocytes % (auto) 11.5 %; Neutrophils # (auto) 6.05 K/uL (1.4-6.5); Platelet Count 226 K/uL (130-400); RDW Coefficient of Variation 15.8 % (11.5-14.5); RDW Standard Deviation 48.8 fL (36.4-46.3); Red Blood Count 3.57 M/uL (4.7-6.1); White Blood Count 8.41 K/uL (4.8-10.8)
[2018-09-09 08:58] LABS: BUN Creatinine Ratio 19.8 (10-20); Calcium 8.7 mg/dl (8.5-10.1); Creatinine Clr Calc Pharmacy 120.6 ml/min; Est GFR (African American) 116.2; Est GFR (Non-African American) 100.2
[2018-09-09] MEDS: METOPROLOL SUCC 50MG EXT REL TAB PO SCH (09:05)
[2018-09-09] MEDS: FINASTERIDE 5 MG TAB PO SCH (09:05)
[2018-09-09] MEDS: CYANOCOBALAMIN 500 MCG TABLET (VITAMIN B-12) PO SCH (09:05)
[2018-09-09] MEDS: DOCUSATE SODIUM/SENNA 50/8.6MG TAB PO SCH ×2 (09:06→20:24)
[2018-09-09] MEDS: INSULIN DETEMIR FLEXPEN/FLEX TOUCH 100 UNITS/ML 3ML SC SCH ×2 (09:07→20:57)
[2018-09-09] MEDS: CLOTRIMAZOLE 1% CR 15 GM TUBE EXT SCH ×2 (09:07→20:24)
[2018-09-09] MEDS: INSULIN ASPART 100 UNITS/ML 3 ML PEN SC SCH ×5 (09:08→23:53)
[2018-09-09] MEDS: ASPIRIN 81 MG ECTAB PO SCH (09:17)
[2018-09-09] MEDS: CLOPIDOGREL BISULFATE 75 MG TAB PO SCH (09:17)
[2018-09-09] MEDS: NSS + 20MEQ KCL 20 MEQ/1,000 ML BAG IV SCH ×2 (13:54→23:50)
--- NOTE | 2018-09-09 13:59 | Anesthesiology Consultation ---
Date of Service September 09, 2018 Assessment & Plan Chart Review Chart Review: Acceptable Risk for Surgery (Urgent due to the infection and fluid collections) and Patient NOT seen in Pre Admission Testing Consults Requested none ASA ASA4 Proposed Anesthesia Anesthesia Type: General Anesthesia Line Insertion: Arterial line Risk / Benefits Reviewed With: PT / POA / Parent / Guardian, Accepts Plan and Informed Consent Obtained Additional Comments: Discussed with both patient and his regarding his high risk of complications such as having LA, stroke, arrhthmia, and possible post-op intubation. Pt and understand and accepting risks and willing to proceed. Consent was signed by both and witnessed NPO Date Last Intake of Fluids: 09/09/18 Time Last Intake of Fluids: 20:00 Date Last Intake of Solids: 09/09/18 Time Last Intake of Solids: 20:00 History Surgery Operation Date: 09/10/18 07:45 Proposed Procedures p Incision and Drainage of Lumbar Spine, L3-L4 Removal of Instrumentation, Possible L2-L4 Fusion - Bong Morales DO Height/Weight Height: 1.73 m Weight: 94.3 kg Allergies Allergy/AdvReac Type Severity Reaction Status Date / Time No Known Allergies Allergy Verified 08/01/18 15:19 Medications Home Medications Medication Instructions Recorded Confirmed Last Taken magnesium oxide 400 mg PO QAM #0 tab 11/27/11 09/03/18 07/31/18 09:00 losartan 50 mg PO QAM #0 tab 05/26/12 09/03/18 07/31/18 09:00 omega 8-gtm-llf-fish oil [Fish Oil] 1 cap PO QAM #0 cap 05/26/12 09/03/18 07/31/18 09:00 atorvastatin 40 mg PO HS #0 tab 11/12/14 09/03/18 07/30/18 21:00 coenzyme Q10 100 mg PO QAM #0 11/12/14 09/03/18 07/17/18 finasteride [Proscar] 5 mg PO QAM #0 11/12/14 09/03/18 07/31/18 09:00 insulin aspart U-100 10 - 50 unit SC TIDM #0 03/07/16 09/03/18 07/31/18 08:30 9 units metoprolol succinate [Toprol XL] 100 mg PO QAM #0 03/07/16 09/03/18 07/31/18 09:00 metformin 1,000 mg PO BID 05/16/18 09/03/18 07/24/18 07:30 vitamin B complex 1 tab PO QAM 07/22/18 09/03/18 07/24/18 07:30 aspirin [Ecotrin Low Strength] 81 mg PO QAM #30 tab 08/14/18 09/03/18 Unknown clopidogrel 75 mg PO QAM #30 tab 08/14/18 09/03/18 Unknown ertapenem 1 gm IV DAILY 35 Days ea 08/14/18 08/26/18 Unknown furosemide 40 mg PO DAILY #30 tab 08/14/18 09/03/18 Unknown sennosides-docusate sodium [Senna 2 tab PO BID #3 tab 08/14/18 09/03/18 Unknown with Docusate Sodium] tamsulosin 0.4 mg PO HS #3 cap 08/14/18 09/03/18 Unknown acetaminophen 650 mg PO Q6H PRN 08/26/18 09/03/18 Unknown bisacodyl [Dulcolax (bisacodyl)] 10 mg CA DAILY PRN 08/26/18 09/03/18 Unknown cholecalciferol (vitamin D3) 08/26/18 Unknown [Vitamin D3] cyanocobalamin (vitamin B-12) 1,000 mcg PO DAILY 08/26/18 09/03/18 Unknown [Vitamin B-12] ddenxbmz-uswqcnp-[id number] ea PO 08/26/18 Unknown [Insta-Glucose] glucagon (human recombinant) mg 08/26/18 Unknown [Glucagon Emergency Kit (human)] magnesium hydroxide [Milk of 30 ml PO DAILY PRN 08/26/18 09/03/18 Unknown Magnesia] oxycodone 10 mg PO Q6H PRN 08/26/18 09/03/18 Unknown sodium phosphates 118 ml CA DAILY PRN 08/26/18 09/03/18 Unknown fentanyl 1 patch TRANSDERMAL Q72H 09/03/18 09/03/18 Unknown insulin detemir U-100 7 unit SUBCUT BID 09/03/18 09/03/18 Unknown levofloxacin [Levaquin] 750 mg PO DAILY 09/03/18 09/03/18 Unknown Active Medications Generic Name Dose Route Start Last Admin Trade Name Freq PRN Reason Stop Dose Admin Acetaminophen 650 mg 09/03/18 21:52 09/09/18 19:37 Tylenol PO 10/03/18 21:51 650 mg Q6H PRN Administration Pain Aspirin 81 mg 09/04/18 09:00 09/09/18 09:17 Ecotrin Ectab PO 10/04/18 08:59 Not Given QAM KAYLYNN Atorvastatin Calcium 40 mg 09/03/18 21:52 09/09/18 20:24 Lipitor PO 10/03/18 21:51 40 mg HS KAYLYNN Administration Bisacodyl 10 mg 09/03/18 21:52 09/09/18 09:57 Dulcolax CA 10/03/18 21:51 10 mg DAILY PRN Administration Constipation Clopidogrel Bisulfate 75 mg 09/04/18 09:00 09/09/18 09:17 Plavix PO 10/04/18 08:59 Not Given QAM KAYLYNN Clotrimazole 1 appln 09/05/18 21:00 09/09/18 20:24 Lotrimin 1% EXT 09/12/18 20:59 1 appln Q12 KAYLYNN Administration Cyanocobalamin 1,000 mcg 09/04/18 09:00 09/09/18 09:05 Vitamin B-12 PO 10/04/18 08:59 1,000 mcg DAILY KAYLYNN Administration Fentanyl 25 mcg 09/05/18 17:30 09/08/18 18:42 Duragesic TD 09/19/18 17:29 25 mcg Q72H KAYLYNN Administration Finasteride 5 mg 09/04/18 09:00 09/09/18 09:05 Proscar PO 10/04/18 08:59 5 mg QAM KAYLYNN Administration Heparin Sodium (Beef Lung) 5 ml 09/06/18 01:05 09/09/18 08:13 Heparin Sod 10 Unit/Ml Flush FLUSH 10/06/18 01:04 5 ml PRN PRN Administration Flush Ertapenem 1,000 mg/ Sodium 60 mls @ 100 mls/hr 09/03/18 22:00 09/09/18 08:33 Chloride IV 09/13/18 21:59 Infused Q24H KAYLYNN Infusion Potassium Chloride/Sodium Chloride 20 meq in 1,000 mls @ 100 mls/hr 09/09/18 13:30 09/10/18 05:19 Normal Saline W/20 Meq Kcl IV 10/09/18 13:29 100 mls/hr .Q10H KAYLYNN Infusion Insulin Aspart 0 units 09/10/18 00:00 09/10/18 05:47 Novolog Flexpen SC 10/10/18 00:00 Not Given Q6H KAYLYNN Insulin Detemir 3 units 09/09/18 21:00 09/09/18 20:57 Levemir Flextouch SC 10/09/18 20:59 3 units BID KAYLYNN Administration Metoprolol Succinate 100 mg 09/04/18 09:00 09/09/18 09:05 Toprol Xl PO 10/04/18 08:59 100 mg QAM KAYLYNN Administration Miscellaneous 1 ea 09/04/18 08:00 09/09/18 23:51 Fentanyl Patch Check Placement N/A 10/04/18 07:59 1 ea QS KAYLYNN Administration Miscellaneous 1 ea 09/05/18 17:30 09/08/18 18:42 Fentanyl Patch Remove & Waste N/A 10/05/18 17:29 1 ea Q72H KAYLYNN Administration Morphine Sulfate 3 mg 09/03/18 21:52 09/06/18 01:54 Morphine Sulfate IV 09/17/18 21:51 3 mg Q3H PRN Administration Pain Senna/Docusate Sodium 2 tab 09/03/18 21:52 09/09/18 20:24 Senokot S PO 10/03/18 21:51 2 tab BID KAYLYNN Administration Tamsulosin HCl 0.4 mg 09/03/18 21:52 09/09/18 20:24 Flomax PO 10/03/18 21:51 0.4 mg HS KAYLYNN Administration Past Medical History Medical History Difficult airway for intubation [employer] 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 Admitted [facility] 10/18/11 for onset of incapacitating cervical myelopathy. Spinal tap showed L[employer] Lyme disease, MRI showed severe spinal cord compression at C3-4 with myelomalacia and intramedullary mass. Pt had c-spine surgery, subsequent prolonged hospital admission, complicated post-op course. Difficult intubation Sudden cardiac Post-op 2011 [facility]. Now has ICD. Sleep apnea PT NOT CURRENTLY CPAP 2/2 recurrent sinus infections. WILL SEE SLEEP MEDICINE/DR. ARCHULETA LATE 2017 Diabetes mellitus, type 2 IDDM. Degenerative disc disease Chronic back pain CHRONIC PAIN IN LEFT LEG Ischemic cardiomyopathy EF WNL 11/2017 CAD (coronary artery disease) s/p triple CABG 2002 Full dentures (Acute) Obese (Acute) Heart disease (Acute) HTN (hypertension) (Acute) High cholesterol (Acute) Past Family History Family History Other No pertinent family history Past Surgical History Surgical History History of esophagogastroduodenoscopy (EGD) History of colonoscopy History of cardiac cath 2011 AT [facility] - UNSURE IF HE HAS STENTS. History of tracheostomy Hx of transurethral resection of prostate History of cataract extraction with lens replacement Hx of tonsillectomy (Acute) H/O cervical spine surgery (Acute) ACDI C3-4, C7 corpectomy, removal of C7 intramedullary mass. History of lumbar spinal fusion (Acute) S/P triple vessel bypass (Acute) [facility] History of incision and drainage Lumbar spine on 08/11; complicated by difficult intubation with only #6.5 ETT able to be placed and patient kept intubated post op Past Anesthesia History Difficult Airway (Only #6.5 ETT was able to be placed after 3 attempts during last surgery) and No Family Hx of Anesthesia Complications History of PONV No Motion Sickness Screening History of Motion Sickness: No Social History Smoking Status: Never smoker tobacco type: smokeless tobacco Do You Dip or Chew Tobacco: Yes (llast used snuff ap processor in Jul, 2018) Hx Alcohol Use: No alcohol intake frequency: a few times a month Hx Substance Use: No substance use type: does not use Exercise / Class Metabolic Activity III < 4 Walking/Shop/Light housework Physical Exam Vital Signs Last Vital Signs Temp 36.8 C 09/10/18 06:22 Pulse 72 09/10/18 06:22 Resp 16 09/10/18 06:22 BP 124/68 09/10/18 06:22 Pulse Ox 99 09/10/18 06:22 Constitutional + obese ENMT Mouth: + edentulous; no TMJ abnormality and no TMJ clicking Thyromental Distance: < 3.5 Finger Breadths Mallampati Class: IV Neck + short neck and + thick neck Respiratory Auscultation: lungs clear to auscultation bilaterally Cardiovascular Rate/Rhythm: regular rate and regular rhythm Testing Electrocardiogram Date: 09/03/18 Findings: + NSR @ (90 bpm with 1st degree AVB) and + RBBB Chest X-Ray Date: 09/03/18 Findings: + NAD Echocardiogram Date: 08/04/18 EF: 30-35% The left ventricle is grossly normal size There is normal LV wall thickness EF= 30-35% LV systolic function is moderate to severely reduced There are regional wall motion abnormlities as specified The basal anterior and lateral rojas are severely hypokinetic. The inferior wall is akinietic Stress Test Date: 05/19/15 Type: DSE Date: 05/19/15 Type: DSE Negative dobutamine stress echo and EKG for myocardial ischemia at 85% maximum predicted heart rate. No EKG changes. No dobutamine induced chest pain. The patient had normal blood pressure response to dobutamine infusion. The baseline echo notes normal LV function. The study was technically difficult. Cardiac Catheterization Date: 07/29/18 Date: 07/29/18 Findings: + RCA and + LMA Intervention: + none multivessel disease, patent DELATORRE to LAD, present disease not felt amenable to intervention, medical management recommended Laboratory Results 09/10/18 05:58 09/10/18 05:58 Blood Type A Positive 09/09/18 13:40 Antibody Screen POSITIVE A 09/09/18 13:40 PT 11.9 Seconds (9.0-12.0) 09/03/18 16:00 INR 1.2 (0.9-1.1) H 09/03/18 16:00 Urine Color Yellow 09/03/18 17:43 Urine Appearance Clear (Clear) 09/03/18 17:43 Urine pH 6.5 (4.5-7.5) 09/03/18 17:43 Ur Specific Superior 1.035 (1.000-1.030) H 09/03/18 17:43 Urine Protein Negative (Negative) 09/03/18 17:43 Urine Glucose (UA) Negative (Negative) 09/03/18 17:43 Urine Ketones Negative (Negative) 09/03/18 17:43 Urine Nitrite Negative (Negative) 09/03/18 17:43 Ur Leukocyte Esterase Negative (Negative) 09/03/18 17:43 09/03/18 19:18 Blood Culture - Final Blood No growth 09/03/18 16:00 Blood Culture - Final Blood No growth 09/10/18 09/09/18 09/09/18 05:42 23:42 20:47 POC Glucose 140 H 180 H 177 H
--- NOTE | 2018-09-09 14:44 | Orthopedic Progress Note ---
Date of Service September 09, 2018 Assessment & Plan (1) Leg weakness, bilateral: At this time we plan for OR in the a.m. He would require repeat I&D lumbar spine removal of instrumentation L3-4 and possible extension of fusion L to the L4. Present on Admission?: Yes Subjective Patient appears comfortable at this time complains of pain when standing. Physical Exam Vital Signs (Past 24 Hours): Last Vital Signs Temp 36.4 C L 09/09/18 07:43 Pulse 75 09/09/18 07:43 Resp 18 09/09/18 07:43 BP 123/76 09/09/18 07:43 Pulse Ox 95 09/09/18 07:43 Physical Exam: Exam essentially unchanged he has reasonable strength of plantar flexion dorsiflexion with a weak quadriceps and hip flexors.
--- NOTE | 2018-09-09 17:20 | Hospitalist Progress Note ---
Date of Service September 09, 2018 Assessment & Plan (1) Weakness of lower extremity: 67 y/o M with a complex medical history including CAD, sudden cardiac , combined CHF, DM II, HTN, HLD, ANTONIO, chronic anemia, multiple spinal surgeries Admitted because of progressive lower extremity weakness, L lower back pain concern for impingement at L3 on imaging Imaging obtained in the ER included a CT head, CTA head and neck and aan abdominal CT, were unremarkable The abdominal CT demonstrated a large posterior fluid collection containing multiple radiopaque pledgets which represent the implanted antibiotic beads. Lower extremity weakness possible neural encroachment, some possibility related to infection -Discussed with spine surgery. - tentatively plan for OR on 09/10/18 -Continue antibiotics (Invanz) and supportive care - still with profound weakness in legs bilaterally, likely some deconditioning as well - should be on telemetry post op due to cardiac history AMS, slurred speech-seems to be on and off. He shows no focal neuro deficits. Stopped his as needed morphine. hospitalization/pain/infection all could be possible contributors - some hallucinations today, saw a dog in the room, not alarming to patient - has some clarity at times likely delirium presenting primarily as lethargy CAD - no evidence of ACS at this time, the pt did have a Left heart cath, 06/28 with multivessel [place] CAD but with patent DELATORRE, and Indu, he did have a dobutamine stress in 07/29 without suggestion of reversable ischemia continue ASA, Plavix, statin, B angy, supportive care continues to be chest pain free, vitals stable would be at risk for cardiovascular complications, recommend tele after surgery continue beta angy in perioperative period DM II -remain under reasonable control diabetic diet, monitor for hypoglycemia HTN/HLD - cont Metoprolol and Atorvastatin Continue to hold Lasix and Losartan CHF, seems euvolemic, continue current medication caution with gentle fluids but right now he is not eating or drinking enough preop Possible mild protein malnutrition -encourage oral intake Chronic sinusitis. There is a large mastoid effusion on CT. ENT referral on DC would be appopriate. Full code - SCDs (2) Leg weakness, bilateral: (3) Chronic systolic heart failure: (4) Stage III chronic kidney disease: (5) Diabetes mellitus, type 2: (6) CAD (coronary artery disease): (7) Obese: (8) HTN (hypertension): (9) High cholesterol: (10) Delirium: Subjective reviewed labs, CBC and BMP normal vitals stable decreased UO for the past 24 hours, will start on IV fluids appetite not the greatest, not drinking enough water patient continues to be sleepy most of the day despite limiting narcotics still with weakness in legs bilaterally, cannot get out of bed discussed OR tomorrow, he agrees with the plan discussed with Dr. Morales today, plan for OR tomorrow anesthesiology to see patient for evaluation Review of Systems All systems reviewed & are unremarkable except as noted in HPI & below Constitutional: + fatigue and + weakness; no fever and no sweats Respiratory: + dyspnea on exertion; no dyspnea Cardiovascular: + dyspnea on exertion; no chest pain, no chest pain at rest, no radiating jaw, neck or arm pain, no syncope and no edema Physical Exam Vital Signs (Past 24 Hours): Last Vital Signs Temp 36.9 C 09/09/18 15:51 Pulse 70 09/09/18 15:51 Resp 19 09/09/18 15:51 BP 109/68 09/09/18 15:51 Pulse Ox 98 09/09/18 15:51 Constitutional: WD/WN, vitals as above + obese Eyes: PERRL, conjunctivae normal, anicteric sclerae ENMT: external ear and nose normal, oropharynx normal Neck: trachea midline, no thyromegaly Respiratory: normal respiratory effort, lungs clear to auscultation Auscultation: + diminished lung sounds (bases bilaterally) Cardiovascular: RRR, no murmur, no edema Gastrointestinal (Abdomen): normal bowel sounds, soft, nontender, no hepatosplenomegaly Musculoskeletal: Spine: normal thoraco-lumbar ROM Extremities: + abnormal strength (profound weakness in legs bilaterally); no cyanosis and no clubbing Skin: no rashes, warm and dry Neurologic: normal touch/pain/proprioception and CN's II-XI intact bilaterally Speech / Cognition: normal speech Motor/Sensory: no tremor Psychiatric: Orientation: oriented x 3 and cooperative; + not alert (lethargic) Eye Contact: + fair eye contact Lymphatic: no cervical or axillary lymphadenopathy Results & Data Laboratory Results Laboratory Results - last 24 hr 09/08/18 09/08/18 09/09/18 17:16 20:31 08:16 WBC RBC Hgb Hct MCV MCH MCHC RDW Std Deviation RDW Coeff of Norbert Plt Count MPV Immature Gran % (Auto) Neut % (Auto) Lymph % (Auto) [place] % (Auto) Eos % (Auto) Baso % (Auto) Immature Gran # (Auto) Neut # (Auto) Lymph # (Auto) [place] # (Auto) Eos # (Auto) Baso # (Auto) Sodium Potassium Chloride Carbon Dioxide Anion Gap BUN Creatinine Est Cr Clr Drug Dosing Est GFR ( Amer) Est GFR (Non-Af Amer) BUN/Creatinine Ratio Glucose POC Glucose 168 H 204 H 143 H Calcium Blood Type Antibody Screen Antibody Identification Crossmatch 09/09/18 09/09/18 09/09/18 08:17 08:17 12:21 WBC 8.41 RBC 3.57 L Hgb 9.6 L Hct 30.7 L MCV 86.0 MCH 26.9 MCHC 31.3 L RDW Std Deviation 48.8 H RDW Coeff of Norbert 15.8 H Plt Count 226 MPV 9.0 Immature Gran % (Auto) 0.7 Neut % (Auto) 72.0 Lymph % (Auto) 13.4 [place] % (Auto) 11.5 Eos % (Auto) 1.9 Baso % (Auto) 0.5 Immature Gran # (Auto) 0.06 H Neut # (Auto) 6.05 Lymph # (Auto) 1.13 L [place] # (Auto) 0.97 H Eos # (Auto) 0.16 Baso # (Auto) 0.04 Sodium 141 Potassium 4.0 Chloride 108 H Carbon Dioxide 30 Anion Gap 3.0 BUN 13 Creatinine 0.68 Est Cr Clr Drug Dosing 120.6 Est GFR ( Amer) 116.2 Est GFR (Non-Af Amer) 100.2 BUN/Creatinine Ratio 19.8 Glucose 131 H POC Glucose 141 H Calcium 8.7 Blood Type Antibody Screen Antibody Identification Crossmatch 09/09/18 13:40 WBC RBC Hgb Hct MCV MCH MCHC RDW Std Deviation RDW Coeff of Norbert Plt Count MPV Immature Gran % (Auto) Neut % (Auto) Lymph % (Auto) [place] % (Auto) Eos % (Auto) Baso % (Auto) Immature Gran # (Auto) Neut # (Auto) Lymph # (Auto) [place] # (Auto) Eos # (Auto) Baso # (Auto) Sodium Potassium Chloride Carbon Dioxide Anion Gap BUN Creatinine Est Cr Clr Drug Dosing Est GFR ( Amer) Est GFR (Non-Af Amer) BUN/Creatinine Ratio Glucose POC Glucose Calcium Blood Type A Positive Antibody Screen POSITIVE A Antibody Identification Anti-E Crossmatch See Detail Medications Administered Current Inpatient Medications Acetaminophen (Tylenol) 650 mg PO Q6H PRN PRN Reason: Pain Stop: 10/03/18 21:51 Aspirin (Ecotrin Ectab) 81 mg PO QAM [facility] Stop: 10/04/18 08:59 Last Admin: 09/09/18 09:17 Dose: Not Given Documented by: Atorvastatin Calcium (Lipitor) 40 mg PO HS [facility] Stop: 10/03/18 21:51 Last Admin: 09/08/18 21:12 Dose: 40 mg Documented by: Bisacodyl (Dulcolax) 10 mg [place] DAILY PRN PRN Reason: Constipation Stop: 10/03/18 21:51 Last Admin: 09/09/18 09:57 Dose: 10 mg Documented by: Clopidogrel Bisulfate (Plavix) 75 mg PO QAM [facility] Stop: 10/04/18 08:59 Last Admin: 09/09/18 09:17 Dose: Not Given Documented by: Clotrimazole (Lotrimin 1%) 1 appln EXT Q12 [facility] Stop: 09/12/18 20:59 Last Admin: 09/09/18 09:07 Dose: 1 appln Documented by: Cyanocobalamin (Vitamin B-12) 1,000 mcg PO DAILY KAYLYNN Stop: 10/04/18 08:59 Last Admin: 09/09/18 09:05 Dose: 1,000 mcg Documented by: Dextrose (Dextrose 50%) 25 - 50 ml IV UD PRN; Protocol PRN Reason: Hypoglycemia Protocol Stop: 10/03/18 22:14 Fentanyl (Duragesic) 25 mcg TD Q72H [facility] Stop: 09/19/18 17:29 Last Admin: 09/08/18 18:42 Dose: 25 mcg Documented by: Finasteride (Proscar) 5 mg PO QAM KAYLYNN Stop: 10/04/18 08:59 Last Admin: 09/09/18 09:05 Dose: 5 mg Documented by: Glucagon (Glucagen) 1 mg IM UD PRN; Protocol PRN Reason: Hypoglycemia Protocol Stop: 10/03/18 22:14 Glucose (Glucose 40%) 15 - 30 gm PO UD PRN; Protocol PRN Reason: Hypoglycemia Protocol Stop: 10/03/18 22:14 Glucose (Dex4 Glucose) 4 - 8 tabs PO UD PRN; Protocol PRN Reason: Hypoglycemia Protocol Stop: 10/03/18 22:14 Heparin Sodium (Beef Lung) (Heparin Sod 10 Unit/Ml Flush) 5 ml FLUSH PRN PRN PRN Reason: Flush Stop: 10/06/18 01:04 Last Admin: 09/09/18 08:13 Dose: 5 ml Documented by: Ertapenem 1,000 mg/ Sodium (Chloride) 60 mls @ 100 mls/hr IV Q24H KAYLYNN Stop: 09/13/18 21:59 Last Infusion: 09/09/18 08:33 Dose: Infused Documented by: Potassium Chloride/Sodium Chloride (Normal Saline W/20 Meq Kcl) 20 meq in 1,000 mls @ 100 mls/hr IV .Q10H [facility] Stop: 10/09/18 13:29 Last Admin: 09/09/18 13:54 Dose: 100 mls/hr Documented by: Insulin Aspart (Novolog Flexpen) 0 units SC ACHS KAYLYNN Stop: 10/06/18 07:29 Last Admin: 09/09/18 13:39 Dose: 2 units Documented by: Insulin Detemir (Levemir Flextouch) 7 units SC BID [facility] Stop: 10/04/18 15:29 Last Admin: 09/09/18 09:07 Dose: 7 units Documented by: Metoprolol Succinate (Toprol Xl) 100 mg PO QAM [facility] Stop: 10/04/18 08:59 Last Admin: 09/09/18 09:05 Dose: 100 mg Documented by: Miscellaneous (Fentanyl Patch Check Placement) 1 ea N/A QS [facility] Stop: 10/04/18 07:59 Last Admin: 09/09/18 15:30 Dose: 1 ea Documented by: Miscellaneous (Fentanyl Patch Remove & Waste) 1 ea N/A Q72H [facility] Stop: 10/03/18 22:28 Last Admin: 09/06/18 22:47 Dose: Not Given Documented by: Miscellaneous (Carbohydrates For Hypoglycemia) 15 - 30 gm PO UD PRN PRN Reason: Hypoglycemia Treatment Stop: 10/03/18 22:14 Miscellaneous (Fentanyl Patch Remove & Waste) 1 ea N/A Q72H [facility] Stop: 10/05/18 17:29 Last Admin: 09/08/18 18:42 Dose: 1 ea Documented by: Morphine Sulfate (Morphine Sulfate) 3 mg IV Q3H PRN PRN Reason: Pain Stop: 09/17/18 21:51 Last Admin: 09/06/18 01:54 Dose: 3 mg Documented by: Senna/Docusate Sodium (Senokot S) 2 tab PO BID KAYLYNN Stop: 10/03/18 21:51 Last Admin: 09/09/18 09:06 Dose: 2 tab Documented by: Sodium Biphosphate/Sodium Phosphate (Fleet Enema) 132 ml [place] DAILY PRN PRN Reason: Constipation Stop: 10/03/18 21:51 Tamsulosin HCl (Flomax) 0.4 mg PO HS [facility] Stop: 10/03/18 21:51 Last Admin: 09/08/18 21:12 Dose: 0.4 mg Documented by:
[2018-09-09] MEDS: ACETAMINOPHEN 325 MG TAB PO PRN (19:37)
[2018-09-09] MEDS: TAMSULOSIN HCL 0.4 MG CAP PO SCH (20:24)
[2018-09-09] MEDS: ATORVASTATIN 40 MG TAB PO SCH (20:24)
[2018-09-10] MEDS: INSULIN ASPART 100 UNITS/ML 3 ML PEN SC SCH ×4 (05:47→20:51)
[2018-09-10 06:35] LABS: Basophils # (auto) 0.03 K/uL (0-0.2); Basophils % (auto) 0.4 %; Eosinophils # (auto) 0.24 K/uL (0-0.5); Hemoglobin 8.9 g/dL (14.0-18.0); Immature Granulocytes # (auto) 0.07 K/uL (0.00-0.02); Immature Granulocytes % (auto) 0.9 %; Lymphocytes # (auto) 1.05 K/uL (1.2-3.4); Lymphocytes % (auto) 13.3 %; Mean Corpuscular Hgb Conc 30.7 g/dL (32-36); Mean Corpuscular Volume 86.3 fL (80-100); Mean Platelet Volume 9.4 fL (7.4-10.4); Monocytes # (auto) 0.82 K/uL (0.11-0.59); Monocytes % (auto) 10.4 %; Neutrophils # (auto) 5.67 K/uL (1.4-6.5); Platelet Count 219 K/uL (130-400); Red Blood Count 3.36 M/uL (4.7-6.1); White Blood Count 7.88 K/uL (4.8-10.8)
[2018-09-10 07:03] LABS: BUN Creatinine Ratio 20.5 (10-20); Creatinine Clr Calc Pharmacy 154.9 ml/min; Est GFR (African American) 128.7
[2018-09-10 07:04] LABS: RBC Morphology Unremarkable
--- NOTE | 2018-09-10 07:35 | History & Physical Bridge Note ---
Date of Service September 10, 2018 History & Physical Bridge Note I have examined the patient, reviewed the History & Physical and in the interval since the performance of the History & Physical I have noted the following changes of clinical significance: no changes noted
[2018-09-10] MEDS ORDERED: VANCOMYCIN HCL 1000MG/20ML VIAL ONE (07:49)
[2018-09-10] MEDS ORDERED: GENTAMICIN SULFATE 40 MG/ML 2 ML VIAL ONE (07:49)
[2018-09-10] MEDS ORDERED: BACITRACIN INJ 50,000 UNIT VIAL ONE (08:37)
[2018-09-10] MEDS ORDERED: FLOSEAL HEMOSTATIC MATRIX 10ML TOP ONE (08:50)
--- NOTE | 2018-09-10 09:06 | Operative Report ---
Post Operative Report Pre & Post Diagnosis Operation Date: 09/10/18 07:45 Pre-Op Diagnosis: Bilateral Leg Weakness Post-Op Diagnosis: Bilateral Leg Weakness Procedure Operation Date: 09/10/18 07:45 Actual Procedures #1 I&D lumbar spine. #2 removal of posterior instrumentation L3-4. #3 placement of 20 cc of stimulant beads impregnated with gentamicin and vancomycin Surgeon Bong Morales DO Forensic Specialist Katelyn Buchanan Estimated Blood Loss 300 Findings Consistent with Post-Op Diagnosis Specimens Cultures Description of Procedure Patient was met with preoperatively case discussed all questions addressed. After informed consent obtained patient was taken to the operative suite underwent intubation and placed in the prone position on the Chuck table on top of the Hunter frame. All bony prominences well-padded eyes inspected to ensure no external pressure placed upon the peer at this point the lumbar spine was prepped and draped in normal sterile fashion. Sharp dissection was performed down to and exposing the fascial layer. This was incised. Significant collection of fluid noted. It was grossly purulent. We did identify some remaining of stimulant beads as well. Several liters of saline were then placed irrigated throughout the incision. I did remove the hardware at L3-4 bilaterally was grossly loose and could be a potential source for ongoing infection. All sutures and unhealthy tissue was debrided. I then placed 20 cc of stimulant beads in the incision. 2 DOMINGA drains were then placed in the incision was closed with subcutaneous Vicryl and florentin for final skin closure. She awakened taken to PACU in stable condition. Please note Katelyn Buchanan present throughout the entire procedure involved in patient positioning complex portions of the surgery and final skin closure. I attest to the content of the Intraoperative Record and any orders documented therein. Any exceptions are noted below.
--- NOTE | 2018-09-10 09:52 | Fluoroscopy Report ---
FL spine 1V any level HISTORY: 67 years-old Male I D LUMBAR SPINE, POSSIBLE L2-L4 FUSION status post decompression and fus ion of the lumbar spine COMPARISON: CT lumbar spine 09/03/2018 TECHNIQUE: Single lateral spot fluoroscopic image of the lumbar spine was obtained utilizing 1.5 seco nds fluoroscopy time. FINDINGS: Discectomy changes redemonstrated at L3-L4, L4-L5 and L5-S1. Status post removal of the posterior int erbody nadia and screw fusion hardware. Radiodense material projects over the posterior soft tissues. IMPRESSION: Fluoroscopic assistance as above. Please see operative report for further details. The above report was generated using voice recognition software. It may contain grammatical, syntax o r spelling errors. Electronically signed by: Kamari Veras M.D. 09/10/2018 9:51 AM
--- NOTE | 2018-09-10 10:01 | Anesthesiology Progress Note ---
Date of Service September 10, 2018 Anesthesia Post Procedure Vital Signs Vital Signs: Temp Pulse Pulse Resp BP Pulse Ox Pulse Ox 09/10/18 09:55 80 14 127/68 100 09/10/18 09:45 78 18 141/77 H 100 09/10/18 09:35 90 12 144/73 H 100 09/10/18 09:27 36.8 C 80 20 137/64 100 09/10/18 06:37 36.9 C 72 20 139/66 94 09/10/18 06:22 36.8 C 72 16 124/68 99 09/09/18 23:30 99 09/09/18 22:58 36.6 C 70 20 109/69 99 09/09/18 15:51 36.9 C 70 19 109/68 98 Pain Intensity Right Upper Leg: Pain Intensity: 2 Back: Pain Intensity: 1 Notes Mental Status: alert / awake / arousable Patient Amnestic to Procedure: Yes Nausea / Vomiting: adequately controlled Pain: adequately controlled Airway Patency, RR, SpO2: stable & adequate BP & HR: stable & adequate Hydration State: stable & adequate Anesthetic Complications: no major complications apparent Notes: Pt awake, no complaints. VSS. Pt will be monitored on telemetry unit post op with O2 via NC and continuous pulse ox.
[2018-09-10] MEDS ORDERED: ATROPINE SULFATE 0.1 MG/ML 10ML SYR IV PRN (10:22)
[2018-09-10] MEDS ORDERED: ePHEDrine sulfate 50 MG/ML AMP IV PRN (10:22)
[2018-09-10] MEDS ORDERED: fentaNYL citrate 100 MCG/2 ML VIAL IV PRN (10:22)
[2018-09-10] MEDS ORDERED: ONDANSETRON INJ 2 MG/ML 2 ML VIAL IV PRN (11:08)
[2018-09-10] MEDS ORDERED: ONDANSETRON 4 MG TAB PO PRN (11:30)
[2018-09-10] MEDS: CHECK FENTANYL PATCH PLACEMENT SCH ×3 (11:46→23:38)
[2018-09-10] MEDS: INSULIN DETEMIR FLEXPEN/FLEX TOUCH 100 UNITS/ML 3ML SC SCH ×2 (11:47→20:50)
[2018-09-10] MEDS: FINASTERIDE 5 MG TAB PO SCH (11:48)
[2018-09-10] MEDS: CLOTRIMAZOLE 1% CR 15 GM TUBE EXT SCH ×2 (11:48→20:52)
[2018-09-10] MEDS: DOCUSATE SODIUM/SENNA 50/8.6MG TAB PO SCH ×2 (11:48→21:34)
[2018-09-10] MEDS: METOPROLOL SUCC 50MG EXT REL TAB PO SCH (11:49)
[2018-09-10] MEDS: CYANOCOBALAMIN 500 MCG TABLET (VITAMIN B-12) PO SCH (11:49)
--- NOTE | 2018-09-10 12:40 | Hospitalist Progress Note ---
Date of Service September 10, 2018 Assessment & Plan (1) Weakness of lower extremity: 67 y/o M with a complex medical history including CAD, sudden cardiac , combined CHF, DM II, HTN, HLD, ANTONIO, chronic anemia, multiple spinal surgeries Admitted because of progressive lower extremity weakness, L lower back pain concern for impingement at L3 on imaging Imaging obtained in the ER included a CT head, CTA head and neck and aan abdominal CT, were unremarkable The abdominal CT demonstrated a large posterior fluid collection containing multiple radiopaque pledgets which represent the implanted antibiotic beads. Lower extremity weakness possible neural encroachment, infected epidural fluid collection OR on 09/10/18 with I&D and drainage of purulent fluid, sent for culture all hardware removed, new antibiotic beads placed DOMINGA drains in place continue on Dr. Zelda Deutsch following no pain after surgery, still no movement in legs activity level per Dr. Morales, currently without hardware in spine antibiotics per Dr. Ndiaye keep on tele today, if no issues can to go surgical floor tomorrow (2) Leg weakness, bilateral: (3) Chronic systolic heart failure: examines euvolemic today continue beta angy (4) Stage III chronic kidney disease: Cr has been stable repeat tomorrow making adequate urine via luna (5) Diabetes mellitus, type 2: DM II -remain under reasonable control 198 after surgery today eating well will increase Lantus to 7 units BID starting this evening (6) CAD (coronary artery disease): CAD - no evidence of ACS at this time, the pt did have a Left heart cath, 06/28 with multivessel [place] CAD but with patent DELATORRE, and Indu, he did have a dobutamine stress in 07/29 without suggestion of reversable ischemia hold ASA, Plavix today, start once okay with Dr. Morales statin, B angy, supportive care continues to be chest pain free, vitals stable would be at risk for cardiovascular complications, recommend tele after surgery continue beta angy in perioperative period (7) Obese: (8) HTN (hypertension): stable on metoprolol (9) High cholesterol: continue Atorvastatin (10) Delirium: AMS, slurred speech-seems to be on and off. He shows no focal neuro deficits. Stopped his as needed morphine. hospitalization/pain/infection all could be possible contributors improved today, alert and oriented, actually the most alert he has been will follow closely likely delirium presenting primarily as lethargy Subjective patient seen after surgery today, reviewed OR report large amount of purulent fluid drained, all hardware removed fluid sent for culture new antibiotic beads placed patient did well, extubated in OR, to the PACU in stable condition transferred to PCU he is awake and alert, pain controlled, still weak in his legs his at the bedside with questions discussed that he is at the beginning of a long process, several surgeries will be needed currently without hardware so his activity level will be per Dr. Morales labs stable this morning eating well, sugar was 198 after surgery Review of Systems All systems reviewed & are unremarkable except as noted in HPI & below Constitutional: + fatigue and + weakness; no fever and no sweats Respiratory: no dyspnea Cardiovascular: + dyspnea on exertion; no chest pain, no chest pain at rest, no radiating jaw, neck or arm pain, no syncope and no edema Physical Exam Vital Signs (Past 24 Hours): Last Vital Signs Temp 36.6 C 09/10/18 10:05 Pulse 77 09/10/18 10:35 Resp 13 09/10/18 10:35 BP 148/62 H 09/10/18 10:35 Pulse Ox 100 09/10/18 10:35 Constitutional: WD/WN, vitals as above + obese Eyes: PERRL, conjunctivae normal, anicteric sclerae ENMT: external ear and nose normal, oropharynx normal Neck: trachea midline, no thyromegaly Respiratory: normal respiratory effort, lungs clear to auscultation Auscultation: + diminished lung sounds (bases bilaterally) Cardiovascular: RRR, no murmur, no edema Gastrointestinal (Abdomen): normal bowel sounds, soft, nontender, no hepatosplenomegaly Musculoskeletal: Spine: normal thoraco-lumbar ROM Extremities: + abnormal strength (profound weakness in legs bilaterally); no cyanosis and no clubbing Skin: no rashes, warm and dry Neurologic: normal touch/pain/proprioception and CN's II-XI intact bilaterally Speech / Cognition: normal speech Motor/Sensory: no tremor Psychiatric: Orientation: alert, oriented x 3 and cooperative Lymphatic: no cervical or axillary lymphadenopathy Results & Data Laboratory Results Laboratory Results - last 24 hr 09/09/18 09/09/18 09/09/18 13:40 17:29 20:47 WBC RBC Hgb Hct MCV MCH MCHC RDW Std Deviation RDW Coeff of Norbert Plt Count MPV Immature Gran % (Auto) Neut % (Auto) Lymph % (Auto) [place] % (Auto) Eos % (Auto) Baso % (Auto) Immature Gran # (Auto) Neut # (Auto) Lymph # (Auto) [place] # (Auto) Eos # (Auto) Baso # (Auto) RBC Morphology Sodium Potassium Chloride Carbon Dioxide Anion Gap BUN Creatinine Est Cr Clr Drug Dosing Est GFR ( Amer) Est GFR (Non-Af Amer) BUN/Creatinine Ratio Glucose POC Glucose 123 H 177 H Calcium Blood Type A Positive Antibody Screen POSITIVE A Antibody Identification Anti-E Crossmatch See Detail 09/09/18 09/10/18 09/10/18 23:42 05:42 05:58 WBC 7.88 RBC 3.36 L Hgb 8.9 L Hct 29.0 L MCV 86.3 MCH 26.5 MCHC 30.7 L RDW Std Deviation 50.0 H RDW Coeff of Norbert 16.0 H Plt Count 219 MPV 9.4 Immature Gran % (Auto) 0.9 Neut % (Auto) 72.0 Lymph % (Auto) 13.3 [place] % (Auto) 10.4 Eos % (Auto) 3.0 Baso % (Auto) 0.4 Immature Gran # (Auto) 0.07 H Neut # (Auto) 5.67 Lymph # (Auto) 1.05 L [place] # (Auto) 0.82 H Eos # (Auto) 0.24 Baso # (Auto) 0.03 RBC Morphology Unremarkable Sodium Potassium Chloride Carbon Dioxide Anion Gap BUN Creatinine Est Cr Clr Drug Dosing Est GFR ( Amer) Est GFR (Non-Af Amer) BUN/Creatinine Ratio Glucose POC Glucose 180 H 140 H Calcium Blood Type Antibody Screen Antibody Identification Crossmatch 09/10/18 09/10/18 05:58 11:12 WBC RBC Hgb Hct MCV MCH MCHC RDW Std Deviation RDW Coeff of Norbert Plt Count MPV Immature Gran % (Auto) Neut % (Auto) Lymph % (Auto) [place] % (Auto) Eos % (Auto) Baso % (Auto) Immature Gran # (Auto) Neut # (Auto) Lymph # (Auto) [place] # (Auto) Eos # (Auto) Baso # (Auto) RBC Morphology Sodium 140 Potassium 4.0 Chloride 109 H Carbon Dioxide 26 Anion Gap 5.0 BUN 11 Creatinine 0.53 L Est Cr Clr Drug Dosing 154.9 Est GFR ( Amer) 128.7 Est GFR (Non-Af Amer) 111.0 BUN/Creatinine Ratio 20.5 H Glucose 132 H POC Glucose 190 H Calcium 8.0 L Blood Type Antibody Screen Antibody Identification Crossmatch Medications Administered Current Inpatient Medications Acetaminophen (Tylenol) 650 mg PO Q6H PRN PRN Reason: Pain Stop: 10/03/18 21:51 Last Admin: 09/09/18 19:37 Dose: 650 mg Documented by: Aspirin (Ecotrin Ectab) 81 mg PO QAM [facility] Stop: 10/04/18 08:59 Last Admin: 09/10/18 12:49 Dose: Not Given Documented by: Atorvastatin Calcium (Lipitor) 40 mg PO HS [facility] Stop: 10/03/18 21:51 Last Admin: 09/09/18 20:24 Dose: 40 mg Documented by: Bisacodyl (Dulcolax) 10 mg CO DAILY PRN PRN Reason: Constipation Stop: 10/03/18 21:51 Last Admin: 09/09/18 09:57 Dose: 10 mg Documented by: Clotrimazole (Lotrimin 1%) 1 appln EXT Q12 [facility] Stop: 09/12/18 20:59 Last Admin: 09/10/18 11:48 Dose: 1 appln Documented by: Cyanocobalamin (Vitamin B-12) 1,000 mcg PO DAILY [facility] Stop: 10/04/18 08:59 Last Admin: 09/10/18 11:49 Dose: 1,000 mcg Documented by: Dextrose (Dextrose 50%) 25 - 50 ml IV UD PRN; Protocol PRN Reason: Hypoglycemia Protocol Stop: 10/03/18 22:14 Fentanyl (Duragesic) 25 mcg TD Q72H KAYLYNN Stop: 09/19/18 17:29 Last Admin: 09/08/18 18:42 Dose: 25 mcg Documented by: Finasteride (Proscar) 5 mg PO QAM [facility] Stop: 10/04/18 08:59 Last Admin: 09/10/18 11:48 Dose: 5 mg Documented by: Glucagon (Glucagen) 1 mg IM UD PRN; Protocol PRN Reason: Hypoglycemia Protocol Stop: 10/03/18 22:14 Glucose (Glucose 40%) 15 - 30 gm PO UD PRN; Protocol PRN Reason: Hypoglycemia Protocol Stop: 10/03/18 22:14 Glucose (Dex4 Glucose) 4 - 8 tabs PO UD PRN; Protocol PRN Reason: Hypoglycemia Protocol Stop: 10/03/18 22:14 Heparin Sodium (Beef Lung) (Heparin Sod 10 Unit/Ml Flush) 5 ml FLUSH PRN PRN PRN Reason: Flush Stop: 10/06/18 01:04 Last Admin: 09/09/18 08:13 Dose: 5 ml Documented by: Hydromorphone HCl (Dilaudid) 0.5 - 1 mg IV Q3H PRN PRN Reason: Pain Stop: 09/24/18 11:07 Ertapenem 1,000 mg/ Sodium (Chloride) 60 mls @ 100 mls/hr IV Q24H [facility] Stop: 09/13/18 21:59 Last Infusion: 09/10/18 13:24 Dose: Infused Documented by: Insulin Aspart (Novolog Flexpen) 0 units SC ACHS [facility] Stop: 10/10/18 00:00 Insulin Detemir (Levemir Flextouch) 3 units SC BID [facility] Stop: 10/09/18 20:59 Last Admin: 09/10/18 11:47 Dose: 3 units Documented by: Metoprolol Succinate (Toprol Xl) 100 mg PO QAM [facility] Stop: 10/04/18 08:59 Last Admin: 09/10/18 11:49 Dose: 100 mg Documented by: Miscellaneous (Fentanyl Patch Check Placement) 1 ea N/A QS [facility] Stop: 10/04/18 07:59 Last Admin: 09/10/18 11:46 Dose: 1 ea Documented by: Miscellaneous (Carbohydrates For Hypoglycemia) 15 - 30 gm PO UD PRN PRN Reason: Hypoglycemia Treatment Stop: 10/03/18 22:14 Miscellaneous (Fentanyl Patch Remove & Waste) 1 ea N/A Q72H [facility] Stop: 10/05/18 17:29 Last Admin: 09/08/18 18:42 Dose: 1 ea Documented by: Ondansetron HCl (Zofran) 4 mg IV Q6H PRN PRN Reason: Nausea &/or Vomiting Stop: 10/10/18 11:07 Ondansetron HCl (Zofran) 4 mg PO Q6H PRN PRN Reason: Nausea Stop: 10/10/18 11:29 Senna/Docusate Sodium (Senokot S) 2 tab PO BID [facility]NN Stop: 10/03/18 21:51 Last Admin: 09/10/18 11:48 Dose: 2 tab Documented by: Sodium Biphosphate/Sodium Phosphate (Fleet Enema) 132 ml CO DAILY PRN PRN Reason: Constipation Stop: 10/03/18 21:51 Tamsulosin HCl (Flomax) 0.4 mg PO HS [facility]NN Stop: 10/03/18 21:51 Last Admin: 09/09/18 20:24 Dose: 0.4 mg Documented by:
[2018-09-10] MEDS: ERTAPENEM SODIUM 1,000 MG in SODIUM CHLORIDE 0.9% 50 ML IV SCH (12:48)
[2018-09-10] MEDS: ASPIRIN 81 MG ECTAB PO SCH (12:49)
[2018-09-10] MEDS ORDERED: Nursing to Pharmacy Communication ONE (15:16)
[2018-09-10] MEDS: CLOPIDOGREL BISULFATE 75 MG TAB PO SCH (15:19)
[2018-09-10] MEDS: NSS + 20MEQ KCL 20 MEQ/1,000 ML BAG IV SCH (15:20)
[2018-09-10] MEDS: ACETAMINOPHEN 325 MG TAB PO PRN ×2 (18:44→23:38)
[2018-09-10] MEDS: TAMSULOSIN HCL 0.4 MG CAP PO SCH (21:34)
[2018-09-10] MEDS: ATORVASTATIN 40 MG TAB PO SCH (21:34)
[2018-09-11 07:23] LABS: BUN Creatinine Ratio 19.2 (10-20); Calcium 8.3 mg/dl (8.5-10.1); Creatinine Clr Calc Pharmacy 122.9 ml/min; Est GFR (African American) 116.9; Est GFR (Non-African American) 100.8; Potassium 4.1 mmol/L (3.5-5.1)
[2018-09-11] MEDS: ERTAPENEM SODIUM 1,000 MG in SODIUM CHLORIDE 0.9% 50 ML IV SCH (07:42)
[2018-09-11] MEDS: CHECK FENTANYL PATCH PLACEMENT SCH (07:42)
[2018-09-11] MEDS: INSULIN DETEMIR FLEXPEN/FLEX TOUCH 100 UNITS/ML 3ML SC SCH ×2 (07:43→20:44)
[2018-09-11] MEDS: INSULIN ASPART 100 UNITS/ML 3 ML PEN SC SCH ×4 (07:45→20:43)
[2018-09-11] MEDS: METOPROLOL SUCC 50MG EXT REL TAB PO SCH (07:47)
[2018-09-11] MEDS: CLOTRIMAZOLE 1% CR 15 GM TUBE EXT SCH ×2 (07:47→20:21)
[2018-09-11] MEDS: FINASTERIDE 5 MG TAB PO SCH (07:47)
[2018-09-11] MEDS: DOCUSATE SODIUM/SENNA 50/8.6MG TAB PO SCH ×2 (07:48→20:24)
[2018-09-11] MEDS: CYANOCOBALAMIN 500 MCG TABLET (VITAMIN B-12) PO SCH (07:48)
--- NOTE | 2018-09-11 07:51 | Orthopedic Progress Note ---
Date of Service September 11, 2018 Assessment & Plan (1) Leg weakness, bilateral: This time we will begin transfers from bed to chair. Hopefully he will be able to tolerate this. Present on Admission?: Yes Physical Exam Vital Signs (Past 24 Hours): Last Vital Signs Temp 36.8 C 09/11/18 06:55 Pulse 71 09/11/18 06:55 Resp 18 09/11/18 06:55 BP 132/81 09/11/18 06:55 Pulse Ox 100 09/11/18 06:55 Physical Exam: Patient looks comfortable. He sitting up in bed. Reasonable strength of plantar flexion dorsiflexion.
[2018-09-11 08:31] LABS: Basophils # (auto) 0.04 K/uL (0-0.2); Basophils % (auto) 0.4 %; Eosinophils % (auto) 0.9 %; Hematocrit (blood only) 25.8 % (42-52); Hemoglobin 8.3 g/dL (14.0-18.0); Immature Granulocytes # (auto) 0.14 K/uL (0.00-0.02); Immature Granulocytes % (auto) 1.3 %; Lymphocytes # (auto) 1.15 K/uL (1.2-3.4); Lymphocytes % (auto) 10.8 %; Mean Corpuscular Hgb Conc 32.2 g/dL (32-36); Mean Corpuscular Volume 85.7 fL (80-100); Mean Platelet Volume 9.5 fL (7.4-10.4); Monocytes % (auto) 9.4 %; Neutrophils # (auto) 8.25 K/uL (1.4-6.5); Neutrophils % (auto) 77.2 %; Platelet Count 225 K/uL (130-400); RDW Coefficient of Variation 15.8 % (11.5-14.5); RDW Standard Deviation 49.3 fL (36.4-46.3); Red Blood Count 3.01 M/uL (4.7-6.1); White Blood Count 10.68 K/uL (4.8-10.8)
[2018-09-11 09:02] LABS: RBC Morphology Unremarkable
--- NOTE | 2018-09-11 10:22 | Cardiology Progress Note ---
Date of Service September 11, 2018 Assessment & Plan (1) Ischemic cardiomyopathy: I will order a troponin for evaluation of any perioperative ischemia. If this is negative, I think he could be removed from the telemetry floor. In any event, he should be continued on his beta-angy and preferably dual anti- platelet agents. Plavix has been held and should be reinstituted at the discretion of the surgeon. (2) ICD (implantable cardioverter-defibrillator) in place: He has a [employer] single-chamber ICD which appears to be functioning normally. No recent therapies. No urgent need for interrogation. (3) Coronary artery disease: We will see if there is any evidence of paige operative ischemia. Again, should be continued on his outpatient medical regimen. A diuretic can be used as needed. He is not appear to be overtly volume overloaded at this time. We will watch his I and O's closely. Subjective Patient had few complaints today. Appears of done quite well with his surgery yesterday. In fact, he did not even recall any of the surgery. He has some element of back discomfort but this appears to be improved overall. He states that his legs feel better as well. No symptoms of chest discomfort or breathing difficulty. Physical Exam Vital Signs (Past 24 Hours): Last Vital Signs Temp 36.8 C 09/11/18 06:55 Pulse 71 09/11/18 06:55 Resp 18 09/11/18 06:55 BP 132/81 09/11/18 06:55 Pulse Ox 100 09/11/18 06:55 Physical Exam: The patient is alert and oriented. Mood and affect appeared normal. He answered all questions appropriately. HEENT: Pupils are equal and reactive to light and accommodation. Extraocular movements are intact. The sclerae are anicteric. Neuro: Cranial nerves intact Neck: Patient's neck is supple. He has palpable carotid pulses bilaterally without bruits on auscultation. There is no evidence of jugular venous distention. The thyroid is not enlarged. Lungs: Clear to auscultation bilaterally. He has good air movement without use of accessory muscles. No rales wheezes or rhonchi. Cardiac: Heart demonstrates a regular rate and rhythm. Normal S1 and S2. No murmurs on examination. Pulses: The patient has palpable radial pulses bilaterally that are equal in intensity Extremities: There was no evidence of hypoperfusion. There is no cyanosis or clubbing. Legs are in protective boots. Skin: I did not appreciate any rashes on examination today. Results & Data Laboratory Results Abnormal Lab Results 09/09/18 09/10/18 09/10/18 13:40 11:12 16:21 WBC RBC Hgb Hct MCV MCH MCHC RDW Std Deviation RDW Coeff of Norbert Plt Count MPV Immature Gran % (Auto) Neut % (Auto) Lymph % (Auto) [place] % (Auto) Eos % (Auto) Baso % (Auto) Immature Gran # (Auto) Neut # (Auto) Lymph # (Auto) [place] # (Auto) Eos # (Auto) Baso # (Auto) RBC Morphology Sodium Potassium Chloride Carbon Dioxide Anion Gap BUN Creatinine Est Cr Clr Drug Dosing Est GFR ( Amer) Est GFR (Non-Af Amer) BUN/Creatinine Ratio Glucose POC Glucose 190 H 255 H Calcium Blood Type A Positive Antibody Screen POSITIVE A Antibody Identification Anti-E Crossmatch See Detail 09/10/18 09/11/18 09/11/18 20:33 06:08 06:08 WBC 10.68 RBC 3.01 L Hgb 8.3 L Hct 25.8 L MCV 85.7 MCH 27.6 MCHC 32.2 RDW Std Deviation 49.3 H RDW Coeff of Norbert 15.8 H Plt Count 225 MPV 9.5 Immature Gran % (Auto) 1.3 Neut % (Auto) 77.2 Lymph % (Auto) 10.8 [place] % (Auto) 9.4 Eos % (Auto) 0.9 Baso % (Auto) 0.4 Immature Gran # (Auto) 0.14 H Neut # (Auto) 8.25 H Lymph # (Auto) 1.15 L [place] # (Auto) 1.00 H Eos # (Auto) 0.10 Baso # (Auto) 0.04 RBC Morphology Unremarkable Sodium 139 Potassium 4.1 Chloride 107 Carbon Dioxide 29 Anion Gap 3.0 BUN 13 Creatinine 0.67 Est Cr Clr Drug Dosing 122.9 Est GFR ( Amer) 116.9 Est GFR (Non-Af Amer) 100.8 BUN/Creatinine Ratio 19.2 Glucose 143 H POC Glucose 238 H Calcium 8.3 L Blood Type Antibody Screen Antibody Identification Crossmatch 09/11/18 07:16 WBC RBC Hgb Hct MCV MCH MCHC RDW Std Deviation RDW Coeff of Norbert Plt Count MPV Immature Gran % (Auto) Neut % (Auto) Lymph % (Auto) [place] % (Auto) Eos % (Auto) Baso % (Auto) Immature Gran # (Auto) Neut # (Auto) Lymph # (Auto) [place] # (Auto) Eos # (Auto) Baso # (Auto) RBC Morphology Sodium Potassium Chloride Carbon Dioxide Anion Gap BUN Creatinine Est Cr Clr Drug Dosing Est GFR ( Amer) Est GFR (Non-Af Amer) BUN/Creatinine Ratio Glucose POC Glucose 157 H Calcium Blood Type Antibody Screen Antibody Identification Crossmatch ECG Additional Comments: Review of his telemetry did not reveal any significant arrhythmia
--- NOTE | 2018-09-11 11:22 | Hospitalist Progress Note ---
Date of Service September 11, 2018 Assessment & Plan (1) Weakness of lower extremity: 67 y/o M with a complex medical history including CAD, sudden cardiac , combined CHF, DM II, HTN, HLD, ANTONIO, chronic anemia, multiple spinal surgeries Admitted because of progressive lower extremity weakness, L lower back pain concern for impingement at L3 on imaging Imaging obtained in the ER included a CT head, CTA head and neck and aan abdominal CT, were unremarkable The abdominal CT demonstrated a large posterior fluid collection containing multiple radiopaque pledgets which represent the implanted antibiotic beads. Lower extremity weakness possible neural encroachment, infected epidural fluid collection, paraspinal abscess OR on 09/10/18 with I&D and drainage of purulent fluid, sent for culture all hardware removed, new antibiotic beads placed DOMINGA drains in place continue on Dr. Zelda Deutsch following no pain after surgery, still no movement in legs activity level per Dr. Morales, okay to get OOB to chair, PT/OT ordered antibiotics per Dr. Ndiaye transfer back to surgical floor today, troponin is 0.034 (2) Leg weakness, bilateral: see above (3) Chronic systolic heart failure: continues to examine euvolemic continue beta angy will resume Lasix 40mg PO daily (4) Stage III chronic kidney disease: Cr has been stable follow daily now that Lasix will be resumed making adequate urine via luna (5) Diabetes mellitus, type 2: DM II -remain under reasonable control continue Lantus 7 BID and Novolog SS monitor for hypoglycemia (6) CAD (coronary artery disease): CAD - no evidence of ACS at this time, the pt did have a Left heart cath, 06/28 with multivessel tangirnaq CAD but with patent DELATORRE, and Indu, he did have a dobutamine stress in 07/29 without suggestion of reversable ischemia resume ASA and Plavix today statin, B angy, supportive care continues to be chest pain free, vitals stable troponin checked on 09/11, it is 0.34 will transfer back to surgical floor (7) Obese: (8) HTN (hypertension): stable on metoprolol (9) High cholesterol: continue Atorvastatin (10) Delirium: AMS, slurred speech-seems to be on and off. He shows no focal neuro deficits. Stopped his as needed morphine. hospitalization/pain/infection all could be possible contributors he is alert and oriented to person and place, not oriented to time, does not remember having surgery yesterday consistent with delirium Subjective patient laying in bed, no distress, says he has no pain in back he is disoriented, thinks it is 1998, month is June, day of the week is Saturday denies any chest pain or dyspnea appreciate note from Dr. Shen this morning, will check troponin, if neg then go to surgical floor discussed with Dr. Morales, okay to resume Plavix reviewed labs, Hb down slightly at 8.3, BMP shows normal electrolytes and renal function updated family at the bedside Review of Systems All systems reviewed & are unremarkable except as noted in HPI & below Respiratory: no dyspnea Cardiovascular: no chest pain Gastrointestinal: no abdominal pain, no nausea, no vomiting, no constipation and no diarrhea/loose stools Musculoskeletal: no back pain Physical Exam Vital Signs (Past 24 Hours): Last Vital Signs Temp 36.8 C 09/11/18 06:55 Pulse 71 09/11/18 06:55 Resp 18 09/11/18 06:55 BP 132/81 09/11/18 06:55 Pulse Ox 100 09/11/18 06:55 Constitutional: WD/WN, vitals as above + obese Eyes: PERRL, conjunctivae normal, anicteric sclerae ENMT: external ear and nose normal, oropharynx normal Neck: trachea midline, no thyromegaly Respiratory: normal respiratory effort, lungs clear to auscultation Auscultation: + diminished lung sounds (bases bilaterally) Cardiovascular: RRR, no murmur, no edema Gastrointestinal (Abdomen): normal bowel sounds, soft, nontender, no hepatosplenomegaly Musculoskeletal: Spine: normal thoraco-lumbar ROM Extremities: + abnormal strength (profound weakness in legs bilaterally); no cyanosis and no clubbing Skin: no rashes, warm and dry Neurologic: normal touch/pain/proprioception and CN's II-XI intact bilaterally Speech / Cognition: normal speech Motor/Sensory: no tremor Psychiatric: Orientation: alert, oriented to person, oriented to place and cooperative; + not oriented to time Lymphatic: no cervical or axillary lymphadenopathy Results & Data Laboratory Results Laboratory Results - last 24 hr 09/09/18 09/10/18 09/10/18 13:40 16:21 20:33 WBC RBC Hgb Hct MCV MCH MCHC RDW Std Deviation RDW Coeff of Norbert Plt Count MPV Immature Gran % (Auto) Neut % (Auto) Lymph % (Auto) [place] % (Auto) Eos % (Auto) Baso % (Auto) Immature Gran # (Auto) Neut # (Auto) Lymph # (Auto) [place] # (Auto) Eos # (Auto) Baso # (Auto) RBC Morphology Sodium Potassium Chloride Carbon Dioxide Anion Gap BUN Creatinine Est Cr Clr Drug Dosing Est GFR ( Amer) Est GFR (Non-Af Amer) BUN/Creatinine Ratio Glucose POC Glucose 255 H 238 H Calcium Troponin I Blood Type A Positive Antibody Screen POSITIVE A Antibody Identification Anti-E Crossmatch See Detail 09/11/18 09/11/18 09/11/18 06:08 06:08 07:16 WBC 10.68 RBC 3.01 L Hgb 8.3 L Hct 25.8 L MCV 85.7 MCH 27.6 MCHC 32.2 RDW Std Deviation 49.3 H RDW Coeff of Norbert 15.8 H Plt Count 225 MPV 9.5 Immature Gran % (Auto) 1.3 Neut % (Auto) 77.2 Lymph % (Auto) 10.8 [place] % (Auto) 9.4 Eos % (Auto) 0.9 Baso % (Auto) 0.4 Immature Gran # (Auto) 0.14 H Neut # (Auto) 8.25 H Lymph # (Auto) 1.15 L [place] # (Auto) 1.00 H Eos # (Auto) 0.10 Baso # (Auto) 0.04 RBC Morphology Unremarkable Sodium 139 Potassium 4.1 Chloride 107 Carbon Dioxide 29 Anion Gap 3.0 BUN 13 Creatinine 0.67 Est Cr Clr Drug Dosing 122.9 Est GFR ( Amer) 116.9 Est GFR (Non-Af Amer) 100.8 BUN/Creatinine Ratio 19.2 Glucose 143 H POC Glucose 157 H Calcium 8.3 L Troponin I Blood Type Antibody Screen Antibody Identification Crossmatch 09/11/18 09/11/18 10:50 11:14 WBC RBC Hgb Hct MCV MCH MCHC RDW Std Deviation RDW Coeff of Norbert Plt Count MPV Immature Gran % (Auto) Neut % (Auto) Lymph % (Auto) [place] % (Auto) Eos % (Auto) Baso % (Auto) Immature Gran # (Auto) Neut # (Auto) Lymph # (Auto) [place] # (Auto) Eos # (Auto) Baso # (Auto) RBC Morphology Sodium Potassium Chloride Carbon Dioxide Anion Gap BUN Creatinine Est Cr Clr Drug Dosing Est GFR ( Amer) Est GFR (Non-Af Amer) BUN/Creatinine Ratio Glucose POC Glucose 151 H Calcium Troponin I 0.034 Blood Type Antibody Screen Antibody Identification Crossmatch Medications Administered Current Inpatient Medications Acetaminophen (Tylenol) 650 mg PO Q6H PRN PRN Reason: Pain Stop: 10/03/18 21:51 Last Admin: 09/10/18 23:38 Dose: 650 mg Documented by: Aspirin (Ecotrin Ectab) 81 mg PO QAM [facility] Stop: 10/04/18 08:59 Last Admin: 09/10/18 12:49 Dose: Not Given Documented by: Atorvastatin Calcium (Lipitor) 40 mg PO HS [facility] Stop: 10/03/18 21:51 Last Admin: 09/10/18 21:34 Dose: 40 mg Documented by: Bisacodyl (Dulcolax) 10 mg [place] DAILY PRN PRN Reason: Constipation Stop: 10/03/18 21:51 Last Admin: 09/09/18 09:57 Dose: 10 mg Documented by: Clopidogrel Bisulfate (Plavix) 75 mg PO QAM [facility] Stop: 10/11/18 11:29 Clotrimazole (Lotrimin 1%) 1 appln EXT Q12 [facility] Stop: 09/12/18 20:59 Last Admin: 09/11/18 07:47 Dose: 1 appln Documented by: Cyanocobalamin (Vitamin B-12) 1,000 mcg PO DAILY [facility] Stop: 10/04/18 08:59 Last Admin: 09/11/18 07:48 Dose: 1,000 mcg Documented by: Dextrose (Dextrose 50%) 25 - 50 ml IV UD PRN; Protocol PRN Reason: Hypoglycemia Protocol Stop: 10/03/18 22:14 Fentanyl (Duragesic) 25 mcg TD Q72H [facility] Stop: 09/19/18 17:29 Last Admin: 09/08/18 18:42 Dose: 25 mcg Documented by: Finasteride (Proscar) 5 mg PO QAM [facility] Stop: 10/04/18 08:59 Last Admin: 09/11/18 07:47 Dose: 5 mg Documented by: Glucagon (Glucagen) 1 mg IM UD PRN; Protocol PRN Reason: Hypoglycemia Protocol Stop: 10/03/18 22:14 Glucose (Glucose 40%) 15 - 30 gm PO UD PRN; Protocol PRN Reason: Hypoglycemia Protocol Stop: 10/03/18 22:14 Glucose (Dex4 Glucose) 4 - 8 tabs PO UD PRN; Protocol PRN Reason: Hypoglycemia Protocol Stop: 10/03/18 22:14 Heparin Sodium (Beef Lung) (Heparin Sod 10 Unit/Ml Flush) 5 ml FLUSH PRN PRN PRN Reason: Flush Stop: 10/06/18 01:04 Last Admin: 09/09/18 08:13 Dose: 5 ml Documented by: Hydromorphone HCl (Dilaudid) 0.5 - 1 mg IV Q3H PRN PRN Reason: Pain Stop: 09/24/18 11:07 Ertapenem 1,000 mg/ Sodium (Chloride) 60 mls @ 100 mls/hr IV Q24H [facility] Stop: 09/13/18 21:59 Last Infusion: 09/11/18 08:22 Dose: Infused Documented by: Insulin Aspart (Novolog Flexpen) 0 units SC ACHS [facility] Stop: 10/10/18 00:00 Last Admin: 09/11/18 07:45 Dose: 6 units Documented by: Insulin Detemir (Levemir Flextouch) 7 units SC BID [facility] Stop: 10/10/18 20:59 Last Admin: 09/11/18 07:43 Dose: 7 units Documented by: Metoprolol Succinate (Toprol Xl) 100 mg PO QAM [facility] Stop: 10/04/18 08:59 Last Admin: 09/11/18 07:47 Dose: 100 mg Documented by: Miscellaneous (Fentanyl Patch Check Placement) 1 ea N/A QS [facility] Stop: 10/04/18 07:59 Last Admin: 09/11/18 07:42 Dose: 1 ea Documented by: Miscellaneous (Carbohydrates For Hypoglycemia) 15 - 30 gm PO UD PRN PRN Reason: Hypoglycemia Treatment Stop: 10/03/18 22:14 Miscellaneous (Fentanyl Patch Remove & Waste) 1 ea N/A Q72H [facility] Stop: 10/05/18 17:29 Last Admin: 09/08/18 18:42 Dose: 1 ea Documented by: Ondansetron HCl (Zofran) 4 mg IV Q6H PRN PRN Reason: Nausea &/or Vomiting Stop: 10/10/18 11:07 Ondansetron HCl (Zofran) 4 mg PO Q6H PRN PRN Reason: Nausea Stop: 10/10/18 11:29 Senna/Docusate Sodium (Senokot S) 2 tab PO BID [facility] Stop: 10/03/18 21:51 Last Admin: 09/11/18 07:48 Dose: 2 tab Documented by: Sodium Biphosphate/Sodium Phosphate (Fleet Enema) 132 ml AL DAILY PRN PRN Reason: Constipation Stop: 10/03/18 21:51 Tamsulosin HCl (Flomax) 0.4 mg PO HS [facility] Stop: 10/03/18 21:51 Last Admin: 09/10/18 21:34 Dose: 0.4 mg Documented by:
[2018-09-11] MEDS: CLOPIDOGREL BISULFATE 75 MG TAB PO SCH (11:37)
[2018-09-11] MEDS: FUROSEMIDE 40 MG TAB PO SCH (12:54)
[2018-09-11] MEDS: TAMSULOSIN HCL 0.4 MG CAP PO SCH (20:22)
[2018-09-11] MEDS: ATORVASTATIN 40 MG TAB PO SCH (20:23)
[2018-09-12 05:47] LABS: Basophils # (auto) 0.03 K/uL (0-0.2); Basophils % (auto) 0.3 %; Eosinophils % (auto) 1.9 %; Hematocrit (blood only) 26.6 % (42-52); Hemoglobin 8.4 g/dL (14.0-18.0); Immature Granulocytes # (auto) 0.07 K/uL (0.00-0.02); Immature Granulocytes % (auto) 0.7 %; Lymphocytes # (auto) 1.17 K/uL (1.2-3.4); Lymphocytes % (auto) 11.2 %; Mean Corpuscular Hgb Conc 31.6 g/dL (32-36); Mean Corpuscular Volume 85.3 fL (80-100); Mean Platelet Volume 9.7 fL (7.4-10.4); Monocytes # (auto) 1.09 K/uL (0.11-0.59); Monocytes % (auto) 10.4 %; Neutrophils # (auto) 7.93 K/uL (1.4-6.5); Neutrophils % (auto) 75.5 %; Platelet Count 227 K/uL (130-400); RDW Coefficient of Variation 16.1 % (11.5-14.5); RDW Standard Deviation 49.4 fL (36.4-46.3); Red Blood Count 3.12 M/uL (4.7-6.1); White Blood Count 10.49 K/uL (4.8-10.8)
[2018-09-12 06:18] LABS: RBC Morphology Unremarkable
[2018-09-12 06:25] LABS: BUN Creatinine Ratio 17.3 (10-20); Calcium 8.5 mg/dl (8.5-10.1); Potassium 3.3 mmol/L (3.5-5.1)
[2018-09-12] MEDS: ERTAPENEM SODIUM 1,000 MG in SODIUM CHLORIDE 0.9% 50 ML IV SCH (07:55)
[2018-09-12] MEDS: METOPROLOL SUCC 50MG EXT REL TAB PO SCH (07:56)
[2018-09-12] MEDS: CLOTRIMAZOLE 1% CR 15 GM TUBE EXT SCH (07:56)
[2018-09-12] MEDS: CLOPIDOGREL BISULFATE 75 MG TAB PO SCH (07:56)
[2018-09-12] MEDS: FINASTERIDE 5 MG TAB PO SCH (07:56)
[2018-09-12] MEDS: CYANOCOBALAMIN 500 MCG TABLET (VITAMIN B-12) PO SCH (07:56)
[2018-09-12] MEDS: FUROSEMIDE 40 MG TAB PO SCH (07:56)
[2018-09-12] MEDS: ASPIRIN 81 MG ECTAB PO SCH (07:57)
[2018-09-12] MEDS: DOCUSATE SODIUM/SENNA 50/8.6MG TAB PO SCH ×2 (08:04→21:16)
[2018-09-12] MEDS: INSULIN DETEMIR FLEXPEN/FLEX TOUCH 100 UNITS/ML 3ML SC SCH ×2 (08:49→21:08)
[2018-09-12] MEDS: INSULIN ASPART 100 UNITS/ML 3 ML PEN SC SCH ×4 (08:49→21:08)
[2018-09-12] MEDS ORDERED: POTASSIUM CHLORIDE 20 MEQ TABCR PO SCH (09:00)
--- NOTE | 2018-09-12 12:43 | Hospitalist Progress Note ---
Date of Service September 12, 2018 Assessment & Plan (1) Weakness of lower extremity: 67 y/o M with a complex medical history including CAD, sudden cardiac , combined CHF, DM II, HTN, HLD, ANTONIO, chronic anemia, multiple spinal surgeries Admitted because of progressive lower extremity weakness, L lower back pain concern for impingement at L3 on imaging Imaging obtained in the ER included a CT head, CTA head and neck and aan abdominal CT, were unremarkable The abdominal CT demonstrated a large posterior fluid collection containing multiple radiopaque pledgets which represent the implanted antibiotic beads. Lower extremity weakness possible neural encroachment, infected epidural fluid collection, paraspinal abscess OR on 09/10/18 with I&D and drainage of purulent fluid, sent for culture culture growing Coag negative staph today all hardware removed, new antibiotic beads placed DOMINGA drains in place continue on Dr. Zelda Deutsch following some increased pain today, still no movement in legs add Oxycodone PRN for pain activity level per Dr. Morales, okay to get OOB to chair, PT/OT ordered antibiotics per Dr. Ndiaye (2) Leg weakness, bilateral: see above (3) Chronic systolic heart failure: continues to examine euvolemic continue beta angy Lasix 40mg PO daily resumed yesterday, diuresis over night (4) Stage III chronic kidney disease: Cr continues to be stable follow daily now that Lasix will be resumed making adequate urine via luna (5) Diabetes mellitus, type 2: DM II -remain under reasonable control continue Lantus 7 BID and Novolog SS monitor for hypoglycemia (6) CAD (coronary artery disease): CAD - no evidence of ACS at this time, the pt did have a Left heart cath, 06/28 with multivessel [place] CAD but with patent DELATORRE, and Indu, he did have a dobutamine stress in 07/29 without suggestion of reversable ischemia resume ASA and Plavix today statin, B angy, supportive care continues to be chest pain free, vitals stable troponin checked on 09/11, it is 0.34 will transfer back to surgical floor (7) Obese: (8) HTN (hypertension): stable on metoprolol (9) High cholesterol: continue Atorvastatin (10) Delirium: AMS, slurred speech-seems to be on and off. He shows no focal neuro deficits. Stopped his as needed morphine. hospitalization/pain/infection all could be possible contributors improved today with stopping Fentanyl, may have been over medicated will continue to observe, will use PRN Oxydone from now on for pain control Subjective admits to more back pain today, it is moderate discussed that we stopped the Fentanyl patch yesterday to see if mental status would improve eating well labs are reviewed, stable wound cultures growing Staph no chest pain, no dyspnea, no nausea luna still in place for chronic urinary retention Review of Systems All systems reviewed & are unremarkable except as noted in HPI & below Physical Exam Vital Signs (Past 24 Hours): Last Vital Signs Temp 36.8 C 09/12/18 07:30 Pulse 80 09/12/18 07:30 Resp 16 09/12/18 07:30 BP 128/70 09/12/18 07:30 Pulse Ox 98 09/12/18 07:30 Constitutional: WD/WN, vitals as above + obese Eyes: PERRL, conjunctivae normal, anicteric sclerae ENMT: external ear and nose normal, oropharynx normal Neck: trachea midline, no thyromegaly Respiratory: normal respiratory effort, lungs clear to auscultation Cardiovascular: RRR, no murmur, no edema Gastrointestinal (Abdomen): normal bowel sounds, soft, nontender, no hepatosplenomegaly Musculoskeletal: Spine: normal thoraco-lumbar ROM Extremities: + abnormal strength (profound weakness in legs bilaterally); no cyanosis and no clubbing Skin: no rashes, warm and dry Neurologic: normal touch/pain/proprioception and CN's II-XI intact bilaterally Speech / Cognition: normal speech Motor/Sensory: no tremor Psychiatric: Orientation: alert, oriented to person, oriented to place, oriented to time and cooperative Lymphatic: no cervical or axillary lymphadenopathy Results & Data Laboratory Results Microbiology 09/10/18 08:42 Back Gram Stain - Final 09/10/18 08:42 Back Aerobic and Anaerobic Culture - Preliminary Coag negative Staphylococcus 09/03/18 19:18 Blood Blood Culture - Final No growth 09/03/18 16:00 Blood Blood Culture - Final No growth Laboratory Results - last 24 hr 09/11/18 09/11/18 09/12/18 17:02 20:37 05:20 WBC 10.49 RBC 3.12 L Hgb 8.4 L Hct 26.6 L MCV 85.3 MCH 26.9 MCHC 31.6 L RDW Std Deviation 49.4 H RDW Coeff of Norbert 16.1 H Plt Count 227 MPV 9.7 Immature Gran % (Auto) 0.7 Neut % (Auto) 75.5 Lymph % (Auto) 11.2 [place] % (Auto) 10.4 Eos % (Auto) 1.9 Baso % (Auto) 0.3 Immature Gran # (Auto) 0.07 H Neut # (Auto) 7.93 H Lymph # (Auto) 1.17 L [place] # (Auto) 1.09 H Eos # (Auto) 0.20 Baso # (Auto) 0.03 RBC Morphology Unremarkable Sodium Potassium Chloride Carbon Dioxide Anion Gap BUN Creatinine Est Cr Clr Drug Dosing Est GFR ( Amer) Est GFR (Non-Af Amer) BUN/Creatinine Ratio Glucose POC Glucose 150 H 218 H Calcium 09/12/18 09/12/18 09/12/18 05:20 08:10 12:17 WBC RBC Hgb Hct MCV MCH MCHC RDW Std Deviation RDW Coeff of Norbert Plt Count MPV Immature Gran % (Auto) Neut % (Auto) Lymph % (Auto) [place] % (Auto) Eos % (Auto) Baso % (Auto) Immature Gran # (Auto) Neut # (Auto) Lymph # (Auto) [place] # (Auto) Eos # (Auto) Baso # (Auto) RBC Morphology Sodium 140 Potassium 3.3 L D Chloride 105 Carbon Dioxide 30 Anion Gap 5.0 BUN 10 Creatinine 0.58 L Est Cr Clr Drug Dosing 142.0 Est GFR ( Amer) 124.0 Est GFR (Non-Af Amer) 107.0 BUN/Creatinine Ratio 17.3 Glucose 157 H POC Glucose 168 H 165 H Calcium 8.5 Medications Administered Current Inpatient Medications Acetaminophen (Tylenol) 650 mg PO Q6H PRN PRN Reason: Pain Stop: 10/03/18 21:51 Last Admin: 09/10/18 23:38 Dose: 650 mg Documented by: Aspirin ([facility]rin Ectab) [facility]: 10/04/18 08:59 Last Admin: 09/12/18 07:57 Dose: 81 mg Documented by: Atorvastatin Calcium (Lipitor) 40 mg PO [facility] Stop: 10/03/18 21:51 Last Admin: 09/11/18 20:23 Dose: 40 mg Documented by: Bisacodyl (Dulcolax) 10 mg [place] DAILY PRN PRN Reason: Constipation Stop: 10/03/18 21:51 Last Admin: 09/09/18 09:57 Dose: 10 mg Documented by: Clopidogrel Bisulfate (Plavix) 75 mg PO QAM [facility] Stop: 10/11/18 11:29 Last Admin: 09/12/18 07:56 Dose: 75 mg Documented by: Clotrimazole (Lotrimin 1%) 1 appln EXT Q12 [facility] Stop: 09/12/18 20:59 Last Admin: 09/12/18 07:56 Dose: 1 appln Documented by: Cyanocobalamin (Vitamin B-12) 1,000 mcg PO DAILY [facility] Stop: 10/04/18 08:59 Last Admin: 09/12/18 07:56 Dose: 1,000 mcg Documented by: Dextrose (Dextrose 50%) 25 - 50 ml IV UD PRN; Protocol PRN Reason: Hypoglycemia Protocol Stop: 10/03/18 22:14 Finasteride (Proscar) 5 mg PO [facility] Stop: 10/04/18 08:59 Last Admin: 09/12/18 07:56 Dose: 5 mg Documented by: [facility]urosem[facility] (Lasix) [facility]: 10/11/18 11:44 Last Admin: 09/12/18 07:56 Dose: 40 mg Documented by: Glucagon (Glucagen) 1 mg IM UD PRN; Protocol PRN Reason: Hypoglycemia Protocol Stop: 10/03/18 22:14 Glucose (Glucose 40%) 15 - 30 gm PO UD PRN; Protocol PRN Reason: Hypoglycemia Protocol Stop: 10/03/18 22:14 Glucose (Dex4 Glucose) 4 - 8 tabs PO UD PRN; Protocol PRN Reason: Hypoglycemia Protocol Stop: 10/03/18 22:14 Heparin Sodium (Beef Lung) (Heparin Sod 10 Unit/Ml Flush) 5 ml FLUSH PRN PRN PRN Reason: Flush Stop: 10/06/18 01:04 Last Admin: 09/12/18 10:27 Dose: 5 ml Documented by: Hydromorphone HCl (Dilaudid) 0.5 - 1 mg IV Q3H PRN PRN Reason: Pain Stop: 09/24/18 11:07 Ertapenem 1,000 mg/ Sodium (Chloride) 60 mls @ 100 mls/hr IV Q24H [facility] Stop: 09/13/18 21:59 Last Infusion: 09/12/18 08:27 Dose: Infused Documented by: Insulin Aspart (Novolog Flexpen) 0 units SC ACHS [facility] Stop: 10/10/18 00:00 Last Admin: 09/12/18 08:49 Dose: 1 units Documented by: Insulin Detemir (Levemir Flextouch) 7 units SC BID [facility] Stop: 10/10/18 20:59 Last Admin: 09/12/18 08:49 Dose: 7 units Documented by: Metoprolol Succinate (Toprol Xl) 100 mg PO QAM [facility] Stop: 10/04/18 08:59 Last Admin: 09/12/18 07:56 Dose: 100 mg Documented by: Miscellaneous (Carbohydrates For Hypoglycemia) 15 - 30 gm PO UD PRN PRN Reason: Hypoglycemia Treatment Stop: 10/03/18 22:14 Ondansetron HCl (Zofran) 4 mg IV Q6H PRN PRN Reason: Nausea &/or Vomiting Stop: 10/10/18 11:07 Ondansetron HCl (Zofran) 4 mg PO Q6H PRN PRN Reason: Nausea Stop: 10/10/18 11:29 Potassium Chloride (Klor-Con M20) 40 meq PO QAM [facility] Stop: 10/12/18 08:59 Last Admin: 09/12/18 08:50 Dose: 40 meq Documented by: Senna/Docusate Sodium (Senokot S) 2 tab PO BID [facility] Stop: 10/03/18 21:51 Last Admin: 09/12/18 08:04 Dose: 2 tab Documented by: Sodium Biphosphate/Sodium Phosphate (Fleet Enema) 132 ml [place] DAILY PRN PRN Reason: Constipation Stop: 10/03/18 21:51 Tamsulosin HCl (Flomax) 0.4 mg PO HS [facility] Stop: 10/03/18 21:51 Last Admin: 09/11/18 20:22 Dose: 0.4 mg Documented by:
[2018-09-12] MEDS: OXYCODONE HCL IR 5 MG TAB (IMMEDIATE RELEASE) PO PRN (13:28)
--- NOTE | 2018-09-12 13:28 | Orthopedic Progress Note ---
Date of Service September 12, 2018 Assessment & Plan (1) Leg weakness, bilateral: This time would like to continue to encourage him for transfers from bed to chair. Cultures are positive for staph from the I&D lumbar spine. We will maintain the DOMINGA drains at least another 48 hours. Present on Admission?: Yes Subjective Patient complaining of some back pain when sitting up but otherwise comfortable. No leg pain. Physical Exam Vital Signs (Past 24 Hours): Last Vital Signs Temp 36.8 C 09/12/18 07:30 Pulse 80 09/12/18 07:30 Resp 16 09/12/18 07:30 BP 128/70 09/12/18 07:30 Pulse Ox 98 09/12/18 07:30 Physical Exam: On exam he has good plantar flexion dorsiflexion is alert. Is able to sit up the bed to at least 45 degrees and he was able to tolerate this.
[2018-09-12] MEDS: HYDROmorphone INJ 1 MG/ML SYRINGE IV PRN (14:39)
--- NOTE | 2018-09-12 15:29 | Infectious Disease Progress Nt ---
Date of Service September 12, 2018 Assessment & Plan (1) Paraspinal abscess: Patient with paraspinal infection, previously with Serratia, now status post operative debridement and hardware removal with cultures growing coagulase- negative staph. Have added IV daptomycin. Will follow. (2) Coagulase-negative staphylococcal infection: Subjective Patient seen in follow-up for paraspinal abscess. Patient status post or debridement and removal of hardware. Operative cultures growing coagulase- negative staph. Remains weak and debilitated. No fever. Review of Systems All systems reviewed & are unremarkable except as noted in HPI & below Physical Exam Vital Signs (Past 24 Hours): Last Vital Signs Temp 36.8 C 09/12/18 07:30 Pulse 80 09/12/18 07:30 Resp 16 09/12/18 07:30 BP 128/70 09/12/18 07:30 Pulse Ox 98 09/12/18 07:30 Constitutional: WD/WN, vitals as above comfortable; no acute distress Eyes: PERRL, conjunctivae normal, anicteric sclerae ENMT: external ear and nose normal, oropharynx normal Neck: trachea midline, no thyromegaly neck nontender Respiratory: normal respiratory effort, lungs clear to auscultation normal percussion; no respiratory distress Cardiovascular: Rate/Rhythm: regular rate and regular rhythm Heart Sounds: normal S1 and normal S2; no gallop, no murmur and no cardiac rub Gastrointestinal (Abdomen): normal bowel sounds, soft, nontender, no hepatosplenomegaly Musculoskeletal: no cyanosis or clubbing, extremities motor strength 5/5 No spinal tenderness, no joint swelling or erythema Skin: no rashes, warm and dry no lesions Surgical dressing intact Neurologic: moves all extremities and awake; no focal motor deficits Motor/Sensory: no sensory deficit Psychiatric: A+Ox3, euthymic affect Lymphatic: no cervical or axillary lymphadenopathy no inguinal lymphadenopathy Results & Data Laboratory Results Short CBC 09/12/18 Range/Units 05:20 WBC 10.49 (4.8-10.8) K/uL Hgb 8.4 L (14.0-18.0) g/dL Hct 26.6 L (42-52) % Plt Count 227 (130-400) K/uL [facility] 09/12/18 05:20 Sodium 140 Potassium 3.3 L D Chloride 105 Carbon Dioxide 30 BUN 10 Creatinine 0.58 L Glucose 157 H Calcium 8.5 Diagnostic Findings Microbiology 09/10/18 08:42 Back Gram Stain - Final 09/10/18 08:42 Back Aerobic and Anaerobic Culture - Preliminary Coag negative Staphylococcus 09/03/18 19:18 Blood Blood Culture - Final No growth 09/03/18 16:00 Blood Blood Culture - Final No growth FL spine 1V any level HISTORY: 67 years-old Male I D LUMBAR SPINE, POSSIBLE L2-L4 FUSION status post decompression and fusion of the lumbar spine COMPARISON: CT lumbar spine 09/03/2018 TECHNIQUE: Single lateral spot fluoroscopic image of the lumbar spine was obtained utilizing 1.5 seconds fluoroscopy time. FINDINGS: Discectomy changes redemonstrated at L3-L4, L4-L5 and L5-S1. Status post removal of the posterior interbody nadia and screw fusion hardware. Radiodense material projects over the posterior soft tissues. IMPRESSION: Fluoroscopic assistance as above. Please see operative report for further details. The above report was generated using voice recognition software. It may contain grammatical, syntax or spelling errors. Electronically signed by: Kamari Veras M.D. 09/10/2018 9:51 AM Dictated: 09/10/18 0944 Transcribed: 09/10/18 0944
[2018-09-12] MEDS ORDERED: DAPTOmycin 500 MG VIAL IV SCH (15:45)
[2018-09-12] MEDS: DAPTOmycin 400 MG in SYRINGE 0 ML IV SCH (18:01)
[2018-09-12] MEDS: TAMSULOSIN HCL 0.4 MG CAP PO SCH (21:12)
[2018-09-13 05:58] LABS: Basophils # (auto) 0.03 K/uL (0-0.2); Basophils % (auto) 0.4 %; Eosinophils # (auto) 0.12 K/uL (0-0.5); Eosinophils % (auto) 1.7 %; Hematocrit (blood only) 26.2 % (42-52); Hemoglobin 8.3 g/dL (14.0-18.0); Immature Granulocytes # (auto) 0.08 K/uL (0.00-0.02); Immature Granulocytes % (auto) 1.1 %; Lymphocytes # (auto) 1.15 K/uL (1.2-3.4); Mean Corpuscular Hgb Conc 31.7 g/dL (32-36); Mean Corpuscular Volume 85.6 fL (80-100); Mean Platelet Volume 9.4 fL (7.4-10.4); Monocytes # (auto) 0.77 K/uL (0.11-0.59); Monocytes % (auto) 10.7 %; Neutrophils # (auto) 5.04 K/uL (1.4-6.5); Neutrophils % (auto) 70.1 %; Platelet Count 209 K/uL (130-400); RDW Coefficient of Variation 16.4 % (11.5-14.5); RDW Standard Deviation 50.9 fL (36.4-46.3); Red Blood Count 3.06 M/uL (4.7-6.1); White Blood Count 7.19 K/uL (4.8-10.8)
[2018-09-13 06:16] LABS: BUN Creatinine Ratio 15.9 (10-20); Calcium 8.3 mg/dl (8.5-10.1); Creatinine Clr Calc Pharmacy 149.8 ml/min; Est GFR (African American) 126.7; Est GFR (Non-African American) 109.4; Potassium 3.1 mmol/L (3.5-5.1)
[2018-09-13 06:31] LABS: Polychromasia 1+
[2018-09-13] MEDS: OXYCODONE HCL IR 5 MG TAB (IMMEDIATE RELEASE) PO PRN ×3 (06:35→21:49)
[2018-09-13] MEDS: ERTAPENEM SODIUM 1,000 MG in SODIUM CHLORIDE 0.9% 50 ML IV SCH (07:35)
[2018-09-13] MEDS: CYANOCOBALAMIN 500 MCG TABLET (VITAMIN B-12) PO SCH (09:03)
[2018-09-13] MEDS: CLOPIDOGREL BISULFATE 75 MG TAB PO SCH (09:03)
[2018-09-13] MEDS: METOPROLOL SUCC 50MG EXT REL TAB PO SCH (09:04)
[2018-09-13] MEDS: ASPIRIN 81 MG ECTAB PO SCH (09:04)
[2018-09-13] MEDS: FINASTERIDE 5 MG TAB PO SCH (09:04)
[2018-09-13] MEDS: FUROSEMIDE 40 MG TAB PO SCH (09:04)
[2018-09-13] MEDS: INSULIN ASPART 100 UNITS/ML 3 ML PEN SC SCH ×4 (09:07→21:13)
[2018-09-13] MEDS: INSULIN DETEMIR FLEXPEN/FLEX TOUCH 100 UNITS/ML 3ML SC SCH ×2 (09:07→21:12)
[2018-09-13] MEDS: DOCUSATE SODIUM/SENNA 50/8.6MG TAB PO SCH ×2 (09:09→21:12)
[2018-09-13] MEDS: POTASSIUM CHLORIDE 20 MEQ TABCR PO SCH ×2 (09:59→21:12)
--- NOTE | 2018-09-13 11:02 | Hospitalist Progress Note ---
Date of Service September 13, 2018 Assessment & Plan (1) Weakness of lower extremity: 67 y/o M with a complex medical history including CAD, sudden cardiac , combined CHF, DM II, HTN, HLD, ANTONIO, chronic anemia, multiple spinal surgeries Admitted because of progressive lower extremity weakness, L lower back pain concern for impingement at L3 on imaging Imaging obtained in the ER included a CT head, CTA head and neck and aan abdominal CT, were unremarkable The abdominal CT demonstrated a large posterior fluid collection containing multiple radiopaque pledgets which represent the implanted antibiotic beads. Lower extremity weakness possible neural encroachment, infected epidural fluid collection, paraspinal abscess OR on 09/10/18 with I&D and drainage of purulent fluid, sent for culture culture growing Coag negative staph ID added Daptomycin to antibiotic regimen all hardware removed, new antibiotic beads placed DOMINGA drains in place, keep for another day per Dr. Morales continue on Invanz and Daptomycin, Dr. Ndiaye following pain controlled, still no movement in legs add Oxycodone PRN for pain activity level per Dr. Morales, okay to get OOB to chair, PT/OT ordered (2) Leg weakness, bilateral: see above (3) Chronic systolic heart failure: continues to examine euvolemic continue beta angy Lasix 40mg PO daily resumed on 09/11, continues to diurese every day (4) Stage III chronic kidney disease: Cr continues to be stable, 0.55 today follow daily now that Lasix will be resumed making adequate urine via luna (5) Hypokalemia: still low at 3.1 today will increase the KCl to 40mEq BID K trended down due to resuming Lasix (6) Diabetes mellitus, type 2: DM II -remain under reasonable control continue Lantus 7 BID and Novolog SS monitor for hypoglycemia (7) CAD (coronary artery disease): CAD - no evidence of ACS at this time, the pt did have a Left heart cath, 06/28 with multivessel [place] CAD but with patent DELATORRE, and Indu, he did have a dobutamine stress in 07/29 without suggestion of reversable ischemia resume ASA and Plavix today statin, B angy, supportive care continues to be chest pain free, vitals stable troponin checked on 09/11, it is 0.34 will transfer back to surgical floor (8) Obese: (9) HTN (hypertension): stable on metoprolol (10) High cholesterol: continue Atorvastatin (11) Delirium: AMS, slurred speech-seems to be on and off. He shows no focal neuro deficits. Stopped his as needed morphine. hospitalization/pain/infection all could be possible contributors again, feel that most of his lethargy is medication induced with opiates Subjective patient more lethargic today, sleeping during the day says his appetite is not as good has some back pain, controlled with the oxycodone no fevers, vitals stable Hb is 8.3, will continue to monitor K low at 3.1, will increase potassium to twice a day Review of Systems All systems reviewed & are unremarkable except as noted in HPI & below Constitutional: + fatigue and + weakness; no fever and no sweats Musculoskeletal: + back pain Physical Exam Vital Signs (Past 24 Hours): Last Vital Signs Temp 36.2 C L 09/13/18 07:37 Pulse 84 09/13/18 07:37 Resp 15 09/13/18 07:37 BP 128/76 09/13/18 07:37 Pulse Ox 98 09/13/18 07:37 Constitutional: WD/WN, vitals as above + obese Eyes: PERRL, conjunctivae normal, anicteric sclerae ENMT: external ear and nose normal, oropharynx normal Neck: trachea midline, no thyromegaly Respiratory: normal respiratory effort, lungs clear to auscultation Auscultation: + diminished lung sounds (bases bilaterally) Cardiovascular: RRR, no murmur, no edema Gastrointestinal (Abdomen): normal bowel sounds, soft, nontender, no hepatosplenomegaly Musculoskeletal: Spine: normal thoraco-lumbar ROM Extremities: + abnormal strength (profound weakness in legs bilaterally); no cyanosis and no clubbing Skin: no rashes, warm and dry Neurologic: normal touch/pain/proprioception and CN's II-XI intact bilaterally Speech / Cognition: normal speech Motor/Sensory: no tremor Psychiatric: Orientation: oriented to person, oriented to place, oriented to time and cooperative; + not alert (lethargic, awakes appropriately) Lymphatic: no cervical or axillary lymphadenopathy Results & Data Laboratory Results Laboratory Results - last 24 hr 09/09/18 09/12/18 09/12/18 13:40 12:17 17:47 WBC RBC Hgb Hct MCV MCH MCHC RDW Std Deviation RDW Coeff of Norbert Plt Count MPV Immature Gran % (Auto) Neut % (Auto) Lymph % (Auto) [place] % (Auto) Eos % (Auto) Baso % (Auto) Immature Gran # (Auto) Neut # (Auto) Lymph # (Auto) [place] # (Auto) Eos # (Auto) Baso # (Auto) Polychromasia Sodium Potassium Chloride Carbon Dioxide Anion Gap BUN Creatinine Est Cr Clr Drug Dosing Est GFR ( Amer) Est GFR (Non-Af Amer) BUN/Creatinine Ratio Glucose POC Glucose 165 H 171 H Calcium Crossmatch See Detail 09/12/18 09/13/18 09/13/18 20:17 05:35 05:35 WBC 7.19 RBC 3.06 L Hgb 8.3 L Hct 26.2 L MCV 85.6 MCH 27.1 MCHC 31.7 L RDW Std Deviation 50.9 H RDW Coeff of Norbert 16.4 H Plt Count 209 MPV 9.4 Immature Gran % (Auto) 1.1 Neut % (Auto) 70.1 Lymph % (Auto) 16.0 [place] % (Auto) 10.7 Eos % (Auto) 1.7 Baso % (Auto) 0.4 Immature Gran # (Auto) 0.08 H Neut # (Auto) 5.04 Lymph # (Auto) 1.15 L [place] # (Auto) 0.77 H Eos # (Auto) 0.12 Baso # (Auto) 0.03 Polychromasia 1+ Sodium 140 Potassium 3.1 L Chloride 104 Carbon Dioxide 30 Anion Gap 6.0 BUN 9 Creatinine 0.55 L Est Cr Clr Drug Dosing 149.8 Est GFR ( Amer) 126.7 Est GFR (Non-Af Amer) 109.4 BUN/Creatinine Ratio 15.9 Glucose 128 H POC Glucose 150 H Calcium 8.3 L Crossmatch 09/13/18 08:07 WBC RBC Hgb Hct MCV MCH MCHC RDW Std Deviation RDW Coeff of Norbert Plt Count MPV Immature Gran % (Auto) Neut % (Auto) Lymph % (Auto) [place] % (Auto) Eos % (Auto) Baso % (Auto) Immature Gran # (Auto) Neut # (Auto) Lymph # (Auto) [place] # (Auto) Eos # (Auto) Baso # (Auto) Polychromasia Sodium Potassium Chloride Carbon Dioxide Anion Gap BUN Creatinine Est Cr Clr Drug Dosing Est GFR ( Amer) Est GFR (Non-Af Amer) BUN/Creatinine Ratio Glucose POC Glucose 132 H Calcium Crossmatch Medications Administered Current Inpatient Medications Acetaminophen (Tylenol) 650 mg PO Q6H PRN PRN Reason: Pain Stop: 10/03/18 21:51 Last Admin: 09/10/18 23:38 Dose: 650 mg Documented by: Aspirin (Ecotrin Ectab) 81 mg PO QAM [facility] Stop: 10/04/18 08:59 Last Admin: 09/13/18 09:04 Dose: 81 mg Documented by: Bisacodyl (Dulcolax) [address] DAILY PRN PRN Reason: Constipation Stop: 10/03/18 21:51 Last Admin: 09/09/18 09:57 Dose: 10 mg Documented by: [facility]idogrel [facility] ([facility]avix) [facility] [place] Stop: 10/11/18 11:29 Last Admin: 09/13/18 09:03 Dose: 75 mg Documented by: Cyanocobalamin (Vitamin B-12) 1,000 mcg PO DAILY [facility] Stop: 10/04/18 08:59 Last Admin: 09/13/18 09:03 Dose: 1,000 mcg Documented by: Dextrose (Dextrose 50%) 25 - 50 ml IV UD PRN; Protocol PRN Reason: Hypoglycemia Protocol Stop: 10/03/18 22:14 Finasteride (Proscar) [facility] [place] Stop: 10/04/18 08:59 Last Admin: 09/13/18 09:04 Dose: 5 mg Documented by: Furosemide (Lasix) 40 mg PO QAM [facility] Stop: 10/11/18 11:44 Last Admin: 09/13/18 09:04 Dose: 40 mg Documented by: Glucagon (Glucagen) 1 mg IM UD PRN; Protocol PRN Reason: Hypoglycemia Protocol Stop: 10/03/18 22:14 Glucose (Glucose 40%) 15 - 30 gm PO UD PRN; Protocol PRN Reason: Hypoglycemia Protocol Stop: 10/03/18 22:14 Glucose (Dex4 Glucose) 4 - 8 tabs PO UD PRN; Protocol PRN Reason: Hypoglycemia Protocol Stop: 10/03/18 22:14 Heparin Sodium (Beef Lung) (Heparin Sod 10 Unit/Ml Flush) 5 ml FLUSH PRN PRN PRN Reason: Flush Stop: 10/06/18 01:04 Last Admin: 09/13/18 08:13 Dose: 5 ml Documented by: Hydromorphone HCl (Dilaudid) 0.5 - 1 mg IV Q3H PRN PRN Reason: Pain Stop: 09/24/18 11:07 Last Admin: 09/12/18 14:39 Dose: 1 mg Documented by: Ertapenem 1,000 mg/ Sodium (Chloride) 60 mls @ 100 mls/hr IV Q24H [facility] Stop: 09/13/18 21:59 Last Infusion: 09/13/18 08:18 Dose: Infused Documented by: Daptomycin 400 mg/ Syringe 8 mls @ 0 mls/min IV DAILY@1600 [facility]; Protocol Stop: 10/24/18 16:44 Last Admin: 09/12/18 18:01 Dose: 4 mls/min Documented by: Insulin Aspart (Novolog Flexpen) 0 units SC ACHS [facility] Stop: 10/10/18 00:00 Last Admin: 09/13/18 09:07 Dose: 1 units Documented by: Insulin Detemir (Levemir Flextouch) 7 units SC BID [facility] Stop: 10/10/18 20:59 Last Admin: 09/13/18 09:07 Dose: 7 units Documented by: Metoprolol Succinate (Toprol Xl) 100 mg PO QAM [facility] Stop: 10/04/18 08:59 Last Admin: 09/13/18 09:04 Dose: 100 mg Documented by: Miscellaneous (Carbohydrates For Hypoglycemia) 15 - 30 gm PO UD PRN PRN Reason: Hypoglycemia Treatment Stop: 10/03/18 22:14 Ondansetron HCl (Zofran) 4 mg IV Q6H PRN PRN Reason: Nausea &/or Vomiting Stop: 10/10/18 11:07 Ondansetron HCl (Zofran) 4 mg PO Q6H PRN PRN Reason: Nausea Stop: 10/10/18 11:29 Oxycodone HCl (Roxicodone Immediate Rel) 5 mg PO Q6 PRN PRN Reason: Pain Stop: 09/26/18 12:45 Last Admin: 09/13/18 06:35 Dose: 5 mg Documented by: Potassium Chloride (Klor-Con M20) 40 meq PO BID [facility] Stop: 10/13/18 08:59 Last Admin: 09/13/18 09:59 Dose: 40 meq Documented by: Senna/Docusate Sodium (Senokot S) 2 tab PO BID [facility] Stop: 10/03/18 21:51 Last Admin: 09/13/18 09:09 Dose: 2 tab Documented by: Sodium Biphosphate/Sodium Phosphate (Fleet Enema) [address] DAILY PRN PRN Reason: Constipation Stop: 10/03/18 21:51 Tamsulosin HCl (Flomax) 0.4 mg PO HS [facility] Stop: 10/03/18 21:51 Last Admin: 09/12/18 21:12 Dose: 0.4 mg Documented by:
[2018-09-13] MEDS: ACETAMINOPHEN 325 MG TAB PO PRN (12:01)
[2018-09-13] MEDS: DAPTOmycin 400 MG in SYRINGE 0 ML IV SCH (15:59)
[2018-09-13] MEDS: HYDROmorphone INJ 1 MG/ML SYRINGE IV PRN ×2 (15:59→18:59)
[2018-09-13] MEDS: TAMSULOSIN HCL 0.4 MG CAP PO SCH (21:11)
--- NOTE | 2018-09-13 22:40 | Ultrasound Report ---
US venous doppler LE LT HISTORY: 67 years-old Male left calf pain, post op acute pain and swelling of the left lower leg COMPARISON: None available TECHNIQUE: Multiple real-time sonographic images of the left lower extremity were obtained assessing grayscale appearance, color and spectral flow FINDINGS: Normal flow, compressibility, phasicity and augmentation about the left lower extremity deep venous s tructures. IMPRESSION: No sonographic evidence of deep venous thrombosis. The above report was generated using voice recognition software. It may contain grammatical, syntax o r spelling errors. Electronically signed by: Kamari Veras M.D. 09/13/2018 10:39 PM
[2018-09-14] MEDS: ACETAMINOPHEN 325 MG TAB PO PRN ×2 (02:48→17:37)
[2018-09-14 06:09] LABS: Basophils # (auto) 0.04 K/uL (0-0.2); Basophils % (auto) 0.5 %; Eosinophils # (auto) 0.16 K/uL (0-0.5); Hematocrit (blood only) 25.6 % (42-52); Immature Granulocytes # (auto) 0.04 K/uL (0.00-0.02); Immature Granulocytes % (auto) 0.5 %; Lymphocytes % (auto) 15.2 %; Mean Corpuscular Hgb Conc 31.3 g/dL (32-36); Mean Corpuscular Volume 87.1 fL (80-100); Mean Platelet Volume 9.4 fL (7.4-10.4); Monocytes # (auto) 0.74 K/uL (0.11-0.59); Monocytes % (auto) 9.4 %; Neutrophils # (auto) 5.71 K/uL (1.4-6.5); Neutrophils % (auto) 72.4 %; Platelet Count 211 K/uL (130-400); RDW Coefficient of Variation 16.5 % (11.5-14.5); RDW Standard Deviation 52.2 fL (36.4-46.3); Red Blood Count 2.94 M/uL (4.7-6.1); White Blood Count 7.89 K/uL (4.8-10.8)
[2018-09-14 06:33] LABS: RBC Morphology Unremarkable
[2018-09-14 06:40] LABS: BUN Creatinine Ratio 15.3 (10-20); Calcium 8.5 mg/dl (8.5-10.1); Creatinine Clr Calc Pharmacy 152.5 ml/min; Est GFR (African American) 127.7; Est GFR (Non-African American) 110.2; Potassium 3.6 mmol/L (3.5-5.1)
[2018-09-14] MEDS: METOPROLOL SUCC 50MG EXT REL TAB PO SCH (08:48)
[2018-09-14] MEDS: CLOPIDOGREL BISULFATE 75 MG TAB PO SCH (08:48)
[2018-09-14] MEDS: FINASTERIDE 5 MG TAB PO SCH (08:48)
[2018-09-14] MEDS: CYANOCOBALAMIN 500 MCG TABLET (VITAMIN B-12) PO SCH (08:48)
[2018-09-14] MEDS: POTASSIUM CHLORIDE 20 MEQ TABCR PO SCH ×2 (08:48→20:58)
[2018-09-14] MEDS: ASPIRIN 81 MG ECTAB PO SCH (08:48)
[2018-09-14] MEDS: FUROSEMIDE 40 MG TAB PO SCH (08:49)
[2018-09-14] MEDS: DOCUSATE SODIUM/SENNA 50/8.6MG TAB PO SCH ×2 (08:51→21:32)
--- NOTE | 2018-09-14 08:56 | Orthopedic Progress Note ---
Date of Service September 14, 2018 Assessment & Plan (1) Coagulase-negative staphylococcal infection: We will maintain DOMINGA drains most likely until tomorrow. Continue physical therapy. Would like to transition to bed to chair. Currently on IV daptomycin per infectious disease recommendations. Anticipate discharge to [facility] at some point this week when medically stable. Supervising Physician Co-Signing Physician Notes Dr. Bong Morales Subjective Leandro is postop day 4 of removal of lumbar instrumentation, I&D lumbar spine, placement of antibiotic beads. Leandro is still confused this morning. He believes it is June and that he is residing at [place]. Complains of back pain. DOMINGA drain output is 5 and 5 cc respectively H&H is minor 8.0 and 25.6 . He is currently on IV daptomycin. Intraoperative cultures show coag negative staph. he had physical therapy and dangling at the bedside which he tolerated yesterday. He has remained afebrile. He also had a venous Doppler of left lower extremity yesterday which was negative for DVT. Physical Exam Vital Signs (Past 24 Hours): Last Vital Signs Temp 37.0 C 09/14/18 06:56 Pulse 82 09/14/18 06:56 Resp 16 09/14/18 06:56 BP 121/61 09/14/18 06:56 Pulse Ox 98 09/14/18 06:56 Physical Exam: Confused but alert. 5/5 bilateral dorsiflexion plantar flexion. Calves are soft and nontender bilaterally. Constitutional: well developed Eyes: normal visual davies by confrontation ENMT: external ear and nose normal, oropharynx normal Neck: normal visual inspection Respiratory: normal respiratory effort Gastrointestinal (Abdomen): Inspection/Auscultation: abdomen normal to inspection Musculoskeletal: Spine: + lumbar spinal tenderness Skin: normal turgor Neurologic: normal touch/pain/proprioception, awake and + confused Psychiatric: Orientation: alert Eye Contact: + fair eye contact Affect: + flat affect
[2018-09-14] MEDS: INSULIN ASPART 100 UNITS/ML 3 ML PEN SC SCH ×4 (09:02→21:05)
[2018-09-14] MEDS: INSULIN DETEMIR FLEXPEN/FLEX TOUCH 100 UNITS/ML 3ML SC SCH ×2 (09:03→20:58)
--- NOTE | 2018-09-14 10:37 | Hospitalist Progress Note ---
Date of Service September 14, 2018 Assessment & Plan (1) Weakness of lower extremity: 67 y/o M with a complex medical history including CAD, sudden cardiac , combined CHF, DM II, HTN, HLD, ANTONIO, chronic anemia, multiple spinal surgeries Admitted because of progressive lower extremity weakness, L lower back pain concern for impingement at L3 on imaging Imaging obtained in the ER included a CT head, CTA head and neck and aan abdominal CT, were unremarkable The abdominal CT demonstrated a large posterior fluid collection containing multiple radiopaque pledgets which represent the implanted antibiotic beads. Lower extremity weakness possible neural encroachment, infected epidural fluid collection, paraspinal abscess OR on 09/10/18 with I&D and drainage of purulent fluid, sent for culture culture growing Coag negative staph ID recommends Daptomycin, Ertapenem stopped 09/13 all hardware removed, new antibiotic beads placed DOMINGA drains in place, management per Dr. Morales pain slightly increased off the Fentanyl 25mcg, Oxycodone helps a little will add back Fentanyl but only at 12mcg continue Oxycodone PRN, 5mg activity level per Dr. Morales, okay to get OOB to chair, PT/OT ordered, can use mechanical lift ultimate plan [facility] to [facility] with PT/OT, Daptomycin IV will need follow up with Dr. Ndiaye and Dr. 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, will likely need further spine surgery once infection cleared (3) Chronic systolic heart failure: Lasix 40mg PO daily resumed on 09/11, continues to diurese every day examines slightly volume overloaded but decreasing daily on Lasix (4) Stage III chronic kidney disease: Cr continues to be stable, 0.54 today follow daily now that Lasix will be resumed making adequate urine via luna ask Urology about pulling luna as it has been in place for 30 days per family (5) Hypokalemia: improved today at 3.6 will continue the KCl at 40mEq BID K trended down due to resuming Lasix if K trends up to 4.5 then back off on KCl to 40mEq daily (6) Diabetes mellitus, type 2: DM II -remain under reasonable control continue Lantus 7 BID and Novolog SS monitor for hypoglycemia (7) CAD (coronary artery disease): CAD - no evidence of ACS at this time, the pt did have a Left heart cath, 06/28 with multivessel [place] CAD but with patent DELATORRE, and Indu, he did have a dobutamine stress in 07/29 without suggestion of reversable ischemia resume ASA and Plavix today statin, B angy, supportive care continues to be chest pain free, vitals stable troponin checked on 09/11, it is 0.34 will transfer back to surgical floor (8) Obese: (9) HTN (hypertension): stable on metoprolol (10) High cholesterol: continue Atorvastatin (11) Delirium: AMS, slurred speech-seems to be on and off. He shows no focal neuro deficits. Stopped his as needed morphine. hospitalization/pain/infection all could be possible contributors again, feel that most of his lethargy is medication induced with opiates he was experiencing some mild hallucinations with the Fentanyl at 25mcg watch closely for any further signs of altered mental status with resuming Fentanyl 12mcg (12) Chronic indwelling Luna catheter: due to urinary retention as [facility] to have luna removed kept due to being post op family asking about it being removed, will ask urology for their opinion tomorrow Subjective patient more alert today, but c/o severe, 8 out of 10 back pain he says the Oxycodone takes the edge off but does not last explained that he was sedated on the Fentanyl 25mcg he is eating well reviewed labs, BMP normal, electrolytes stable Hb is down slightly from 8.3 to 8.0, minimal output in DOMINGA drains per ortho, can get him up with mechanical lift into chair final wound culture with coag negative staph, Ertapenem stopped, on Daptomycin has chronic luna, was supposed to see in urology office late last week to remove it kept luna since he is post op will ask for routine urology consult tomorrow for evaluation of luna, can it be pulled at this time Review of Systems All systems reviewed & are unremarkable except as noted in HPI & below Constitutional: + fatigue and + weakness; no fever and no sweats Musculoskeletal: + back pain Physical Exam Vital Signs (Past 24 Hours): Last Vital Signs Temp 37.0 C 09/14/18 06:56 Pulse 82 09/14/18 06:56 Resp 16 09/14/18 06:56 BP 121/61 09/14/18 06:56 Pulse Ox 98 09/14/18 06:56 Constitutional: WD/WN, vitals as above + obese Eyes: PERRL, conjunctivae normal, anicteric sclerae ENMT: external ear and nose normal, oropharynx normal Neck: trachea midline, no thyromegaly Respiratory: normal respiratory effort, lungs clear to auscultation Auscultation: + diminished lung sounds (bases bilaterally) Cardiovascular: RRR, no murmur, no edema Gastrointestinal (Abdomen): normal bowel sounds, soft, nontender, no hepatosplenomegaly Musculoskeletal: Spine: normal thoraco-lumbar ROM Extremities: + abnormal strength (profound weakness in legs bilaterally); no cyanosis and no clubbing Skin: no rashes, warm and dry Neurologic: normal touch/pain/proprioception and CN's II-XI intact bilaterally Speech / Cognition: normal speech Motor/Sensory: no tremor Psychiatric: Orientation: oriented to person, oriented to place, oriented to time and cooperative; + not alert (lethargic, awakes appropriately) Eye Contact: + fair eye contact Lymphatic: no cervical or axillary lymphadenopathy Results & Data Laboratory Results Laboratory Results - last 24 hr 09/13/18 09/13/18 09/13/18 11:44 17:04 20:34 WBC RBC Hgb Hct MCV MCH MCHC RDW Std Deviation RDW Coeff of Norbert Plt Count MPV Immature Gran % (Auto) Neut % (Auto) Lymph % (Auto) [place] % (Auto) Eos % (Auto) Baso % (Auto) Immature Gran # (Auto) Neut # (Auto) Lymph # (Auto) [place] # (Auto) Eos # (Auto) Baso # (Auto) RBC Morphology Sodium Potassium Chloride Carbon Dioxide Anion Gap BUN Creatinine Est Cr Clr Drug Dosing Est GFR ( Amer) Est GFR (Non-Af Amer) BUN/Creatinine Ratio Glucose POC Glucose 169 H 154 H 158 H Calcium 09/14/18 09/14/18 09/14/18 05:44 05:44 08:10 WBC 7.89 RBC 2.94 L Hgb 8.0 L Hct 25.6 L MCV 87.1 MCH 27.2 MCHC 31.3 L RDW Std Deviation 52.2 H RDW Coeff of Norbert 16.5 H Plt Count 211 MPV 9.4 Immature Gran % (Auto) 0.5 Neut % (Auto) 72.4 Lymph % (Auto) 15.2 [place] % (Auto) 9.4 Eos % (Auto) 2.0 Baso % (Auto) 0.5 Immature Gran # (Auto) 0.04 H Neut # (Auto) 5.71 Lymph # (Auto) 1.20 [place] # (Auto) 0.74 H Eos # (Auto) 0.16 Baso # (Auto) 0.04 RBC Morphology Unremarkable Sodium 140 Potassium 3.6 D Chloride 105 Carbon Dioxide 29 Anion Gap 6.0 BUN 8 Creatinine 0.54 L Est Cr Clr Drug Dosing 152.5 Est GFR ( Amer) 127.7 Est GFR (Non-Af Amer) 110.2 BUN/Creatinine Ratio 15.3 Glucose 101 H POC Glucose 113 H Calcium 8.5 Medications Administered Current Inpatient Medications Acetaminophen (Tylenol) 650 mg PO Q6H PRN PRN Reason: Pain Stop: 10/03/18 21:51 Last Admin: 09/14/18 02:48 Dose: 650 mg Documented by: Aspirin (Ecotrin Ectab) 81 mg PO QAM [facility] Stop: 10/04/18 08:59 Last Admin: 09/14/18 08:48 Dose: 81 mg Documented by: Bisacodyl (Dulcolax) 10 mg IN DAILY PRN PRN Reason: Constipation Stop: 10/03/18 21:51 Last Admin: 09/09/18 09:57 Dose: 10 mg Documented by: Clopidogrel Bisulfate (Plavix) 75 mg PO QAM [facility] Stop: 10/11/18 11:29 Last Admin: 09/14/18 08:48 Dose: 75 mg Documented by: Cyanocobalamin (Vitamin B-12) 1,000 mcg PO DAILY [facility] Stop: 10/04/18 08:59 Last Admin: 09/14/18 08:48 Dose: 1,000 mcg Documented by: Dextrose (Dextrose 50%) 25 - 50 ml IV UD PRN; Protocol PRN Reason: Hypoglycemia Protocol Stop: 10/03/18 22:14 Fentanyl (Duragesic) 12 mcg TD Q3D [facility] Stop: 09/28/18 10:44 Finasteride (Proscar) 5 mg PO QAM [facility] Stop: 10/04/18 08:59 Last Admin: 09/14/18 08:48 Dose: 5 mg Documented by: Furosemide (Lasix) 40 mg PO QAM [facility] Stop: 10/11/18 11:44 Last Admin: 09/14/18 08:49 Dose: 40 mg Documented by: Glucagon (Glucagen) 1 mg IM UD PRN; Protocol PRN Reason: Hypoglycemia Protocol Stop: 10/03/18 22:14 Glucose (Glucose 40%) 15 - 30 gm PO UD PRN; Protocol PRN Reason: Hypoglycemia Protocol Stop: 10/03/18 22:14 Glucose (Dex4 Glucose) 4 - 8 tabs PO UD PRN; Protocol PRN Reason: Hypoglycemia Protocol Stop: 10/03/18 22:14 Heparin Sodium (Beef Lung) (Heparin Sod 10 Unit/Ml Flush) 5 ml FLUSH PRN PRN PRN Reason: Flush Stop: 10/06/18 01:04 Last Admin: 09/14/18 05:45 Dose: 5 ml Documented by: Hydromorphone HCl (Dilaudid) 0.5 - 1 mg IV Q3H PRN PRN Reason: Pain Stop: 09/24/18 11:07 Last Admin: 09/13/18 18:59 Dose: 1 mg Documented by: Daptomycin 400 mg/ Syringe 8 mls @ 0 mls/min IV DAILY@1600 [facility]; Protocol Stop: 10/24/18 16:44 Last Admin: 09/13/18 15:59 Dose: 8 mls/min Documented by: Insulin Aspart (Novolog Flexpen) 0 units SC ACHS [facility] Stop: 10/10/18 00:00 Last Admin: 09/14/18 09:02 Dose: 1 units Documented by: Insulin Detemir (Levemir Flextouch) 7 units SC BID [facility] Stop: 10/10/18 20:59 Last Admin: 09/14/18 09:03 Dose: 7 units Documented by: Metoprolol Succinate ([facility] Xl) [facility] Stop: 10/04/18 08:59 Last Admin: 09/14/18 08:48 Dose: 100 mg Documented by: Miscellaneous (Carbohydrates For Hypoglycemia) 15 - 30 gm PO UD PRN PRN Reason: Hypoglycemia Treatment Stop: 10/03/18 22:14 Miscellaneous (Fentanyl Patch Check Placement) 1 ea N/A QS [facility] Stop: 10/14/18 15:59 Miscellaneous (Fentanyl Patch Remove & Waste) 1 ea N/A Q3D [facility] Stop: 10/17/18 10:36 Ondansetron HCl (Zofran) 4 mg IV Q6H PRN PRN Reason: Nausea &/or Vomiting Stop: 10/10/18 11:07 Ondansetron HCl (Zofran) 4 mg PO Q6H PRN PRN Reason: Nausea Stop: 10/10/18 11:29 Oxycodone HCl (Roxicodone Immediate Rel) 5 mg PO Q6 PRN PRN Reason: Pain Stop: 09/26/18 12:45 Last Admin: 09/13/18 21:49 Dose: 5 mg Documented by: Potassium Chloride (Klor-Con M20) 40 meq PO BID [facility] Stop: 10/13/18 08:59 Last Admin: 09/14/18 08:48 Dose: 40 meq Documented by: Senna/Docusate Sodium (Senokot S) 2 tab PO BID [facility] Stop: 10/03/18 21:51 Last Admin: 09/14/18 08:51 Dose: 2 tab Documented by: Sodium Biphosphate/Sodium Phosphate (Fleet Enema) 132 ml IN DAILY PRN PRN Reason: Constipation Stop: 10/03/18 21:51 Tamsulosin HCl (Flomax) 0.4 mg PO HS [facility] Stop: 10/03/18 21:51 Last Admin: 09/13/18 21:11 Dose: 0.4 mg Documented by:
[2018-09-14] MEDS ORDERED: fentaNYL 12 MCG/HR TDSY TD SCH (11:00)
[2018-09-14] MEDS: OXYCODONE HCL IR 5 MG TAB (IMMEDIATE RELEASE) PO PRN ×2 (12:15→18:33)
[2018-09-14] MEDS: DAPTOmycin 400 MG in SYRINGE 0 ML IV SCH (15:45)
[2018-09-14] MEDS: CHECK FENTANYL PATCH PLACEMENT SCH (15:50)
[2018-09-14] MEDS: TAMSULOSIN HCL 0.4 MG CAP PO SCH (20:58)
[2018-09-15] MEDS: CHECK FENTANYL PATCH PLACEMENT SCH ×4 (00:17→23:55)
--- NOTE | 2018-09-15 01:16 | Consultation Report ---
DATE OF CONSULTATION: 09/14/2018 REASON FOR THE CONSULTATION: Urinary retention. HISTORY OF PRESENTATION: The patient is a 67-year-old male who has had a difficult history of multiple back surgeries in the last several months with now ongoing weakness of his lower extremities. The patient has had an indwelling Rojas catheter since the second surgery, it sounds as if. He had his catheter changed prior to his most recent surgery when he was in a [facility] trying to rehab. Of note, the patient has a distant history in 2005 of having a transurethral needle ablation of his prostate for BPH. He subsequently had a GreenLight laser prostatectomy with Dr. Fernandez in 2013. He was on finasteride most recently. Did have some incontinence and some retention after the surgery, but at his last visit in March was doing well, had a minimal PVR and PSA was 0.4 earlier in 2013. The patient is quite weak and just gotten out of bed today with the assistance of an assist device, to a chair. He is unable to ambulate on his own and has significant lower extremity weakness. The family wanted to know whether he should have his catheter out because he had been scheduled previously to be seen in the office for a voiding trial, but this predated his most recent surgery. His urine apparently is somewhat cloudy. When he did have his catheter prior to his most recent surgery, he was unable to void and it was replaced. Again, he is taking finasteride. PAST MEDICAL HISTORY: Please refer to the multiple back surgeries in the past few months and the pertinent surgery. He also has a history of having a recent coronary artery event and he has got an implantable defibrillator placed and a history of ischemic cardiomyopathy. He also has a history of respiratory failure recently as well. History of triple bypass surgery, high cholesterol, and hypertension. MEDICATIONS: Please refer to the history and physical for a long list of his medicines was again includes tamsulosin and finasteride. PHYSICAL EXAMINATION: GENERAL: The patient is pale. He appears to be somewhat confused, but is responsive and alert. He is sitting in a chair but has a walker next to him and apparently needs almost a full assist to be able to stand and is unable to stand on his own. ABDOMEN: He has no abdominal tenderness. NEUROLOGIC: He is somewhat confused, but he is alert and responsive. EXTREMITIES: Unremarkable. GENITOURINARY: He has no flank pain to percussion and he has got a Rojas catheter that has some debris, but is otherwise clear. ASSESSMENT: Urinary retention with a history of benign prostatic hypertrophy. PLAN: Check a urine culture and can give a voiding trial prior to discharge, but given his weakness in his legs and his inability to stand, there is a high likelihood he is going to fail. I do not think he is currently a candidate for CIC, but may be so down the road. We will discuss with the nurse practitioner tomorrow. The patient again was too weak today to attempt this and they may want to hold off until he seems to gain some strength and is able to stand up prior to doing the voiding trial.
[2018-09-15] MEDS: OXYCODONE HCL IR 5 MG TAB (IMMEDIATE RELEASE) PO PRN ×3 (04:30→18:55)
[2018-09-15] MEDS: FINASTERIDE 5 MG TAB PO SCH (08:30)
[2018-09-15] MEDS: METOPROLOL SUCC 50MG EXT REL TAB PO SCH (08:30)
[2018-09-15] MEDS: POTASSIUM CHLORIDE 20 MEQ TABCR PO SCH ×2 (08:30→21:05)
[2018-09-15] MEDS: FUROSEMIDE 40 MG TAB PO SCH (08:30)
[2018-09-15] MEDS: CYANOCOBALAMIN 500 MCG TABLET (VITAMIN B-12) PO SCH (08:30)
[2018-09-15] MEDS: CLOPIDOGREL BISULFATE 75 MG TAB PO SCH (08:30)
[2018-09-15] MEDS: ASPIRIN 81 MG ECTAB PO SCH (08:31)
[2018-09-15] MEDS: DOCUSATE SODIUM/SENNA 50/8.6MG TAB PO SCH ×2 (08:45→21:05)
[2018-09-15] MEDS: INSULIN ASPART 100 UNITS/ML 3 ML PEN SC SCH ×4 (08:46→21:01)
[2018-09-15] MEDS: INSULIN DETEMIR FLEXPEN/FLEX TOUCH 100 UNITS/ML 3ML SC SCH ×2 (08:47→21:02)
--- NOTE | 2018-09-15 09:47 | Orthopedic Progress Note ---
Date of Service September 15, 2018 Assessment & Plan (1) Leg weakness, bilateral: This time we will continue to transfer from bed to chair. He will hopefully build up his stamina throughout the week. When we can begin more comprehensive rehab with weightbearing and ambulation. He does understand this will take weeks of rehab to recover he is quite deconditioned at this time. Present on Admission?: Yes Subjective Patient is sitting up in bed. Appears comfortable. He is alert and oriented today throughout the discussion. Describes some aching in his thighs but overall comfortable. He states that he was able to transfer the chair twice yesterday and tolerated this reasonably well. Physical Exam Vital Signs (Past 24 Hours): Last Vital Signs Temp 37.2 C 09/15/18 06:47 Pulse 71 09/15/18 06:47 Resp 18 09/15/18 06:47 BP 126/75 09/15/18 06:47 Pulse Ox 100 09/15/18 06:47 Physical Exam: On exam he is very alert at this time. He demonstrates plantar flexion dorsiflexion to be intact. Still quadricep deficits bilaterally.
[2018-09-15] MEDS ORDERED: VANCOMYCIN CONSULT ACTIVE PRN (12:37)
--- NOTE | 2018-09-15 12:39 | Urology Progress Note ---
Date of Service September 15, 2018 Assessment & Plan (1) Urinary retention: Patient requests to maintain Rojas due to leg weakness and mobility difficulty - not unreasonable. Will arrange outpatient follow up with Dr. Fernandez to reassess, likely TOV in our outpatient office at that time. Thank you for allowing us to participate in the care of this patient. Please contact our service with any additional concerns. Subjective 67YO male with urinary retention, indwelling Rojas inserted s/p back surgery. He is established with Dr. Fernandez. Reports continued leg weakness today, states that he has strong preference to maintain Rojas due to difficulty ambulating. Rojas is not bothersome. No fever/chills. No nausea/vomiting. Constitutional: no fever and no chills Respiratory: no dyspnea Cardiovascular: no chest pain Gastrointestinal: no abdominal pain, no nausea and no vomiting Physical Exam Vital Signs (Past 24 Hours): Last Vital Signs Temp 37.2 C 09/15/18 06:47 Pulse 71 09/15/18 06:47 Resp 18 09/15/18 06:47 BP 126/75 09/15/18 06:47 Pulse Ox 100 09/15/18 06:47 Constitutional: no acute distress Neck: normal visual inspection Respiratory: normal respiratory effort Cardiovascular: Vessels: no JVD Gastrointestinal (Abdomen): Percussion/Palpation: abdomen soft; abdomen nontender Psychiatric: Orientation: alert, oriented x 3 and cooperative Genitourinary: Rojas in place, patent, draining clear yellow urine.
--- NOTE | 2018-09-15 12:53 | Pharmacy Report ---
Pharmacy Abx Initial Consult - Date of Service September 15, 2018 - Pharmacy Dosing Scope Date of Consult: 09/15/18 Consultation requested by: Dr. Manning Pharmacy is consulted to initiate vancomycin IV dosing therapy, order appropriate labs and adjust drug dose/frequency. - Subjective The patient is a 67 year old M admitted on 09/03/18 20:24 with weakness. He has a PMH of recent spinal surgery with postop [place] and paraspinal abscess requiring Ertapenem. Patient had drainage of another abscess and coag negative staph was growing. Ertapenem changed to daptomycin. Vancomycin will now be started because daptomycin is too expensive as an outpatient. - Objective Height: 5 ft 8 in Weight: 95.1 kg Vital Signs (Past 12hrs): Vital Signs Temp Pulse Resp BP Pulse Ox 09/15/18 06:47 37.2 C 71 18 126/75 100 Micro Results: 09/10/18 08:42 Gram Stain - Final Back Aerobic and Anaerobic Culture - Final Coag negative Staphylococcus 09/03/18 19:18 Blood Culture - Final Blood No growth 09/03/18 16:00 Blood Culture - Final Blood No growth - Risk Factors for Resistance * Hospitalization for 48 hours or more within the past 90 days * Current hospitalization > 5 days * Antimicrobial use within the last 90 days (ertapenem, daptomycin) - Assessment & Plan Assessment 67 year old M with spinal abscess, change to vancomycin secondary to cost of daptomycin as an outpatient. Plan vancomycin for treatment of spinal abscess Vancomycin IV * Estimated PK Parameters: Vd 0.7 L/kg, Dion 0.0749 hr-1, t1/2 9.25 hr utilizing admission creatinine. Expect that creatinine is much lower today secondary to dilution. * Loading dose: 2500 mg (25 mg/kg) * Maintenance dose: 1500 mg IV (15 mg/kg) every 10 hours * Goal trough level for spinal abscess : 15 to 20 mcg/mL * Trough ordered for 09/15/18 - please note this IS NOT STEADY STATE but a level prior to discharge to determine the likelihood that this interval is appropriate for patient. Drawn this early to facilitate in discharge. Pharmacy will continue to follow and will adjust dose/frequency as necessary. Thank you.
[2018-09-15] MEDS ORDERED: VANCOMYCIN HCL 2,500 MG in SODIUM CHLORIDE 0.9% 500 ML IV ONE (13:00)
[2018-09-15] MEDS: ACETAMINOPHEN 325 MG TAB PO PRN (14:07)
[2018-09-15] MEDS: TAMSULOSIN HCL 0.4 MG CAP PO SCH (21:05)
[2018-09-15] MEDS: VANCOMYCIN HCL 1,500 MG in SODIUM CHLORIDE 0.9% 500 ML IV SCH (22:04)
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
[2018-09-16] MEDS ORDERED: VANCOMYCIN TROUGH ONE (08:30)
[2018-09-16 09:30] LABS: Creatinine Clr Calc Pharmacy 117.7 ml/min; Est GFR (African American) 114.8
[2018-09-16] MEDS: CHECK FENTANYL PATCH PLACEMENT SCH (09:40)
[2018-09-16] MEDS: INSULIN ASPART 100 UNITS/ML 3 ML PEN SC SCH ×2 (09:42→13:22)
[2018-09-16] MEDS: INSULIN DETEMIR FLEXPEN/FLEX TOUCH 100 UNITS/ML 3ML SC SCH (09:42)
[2018-09-16] MEDS: CYANOCOBALAMIN 500 MCG TABLET (VITAMIN B-12) PO SCH (09:44)
[2018-09-16] MEDS: CLOPIDOGREL BISULFATE 75 MG TAB PO SCH (09:44)
[2018-09-16] MEDS: FUROSEMIDE 40 MG TAB PO SCH (09:45)
[2018-09-16] MEDS: POTASSIUM CHLORIDE 20 MEQ TABCR PO SCH (09:45)
[2018-09-16] MEDS: ASPIRIN 81 MG ECTAB PO SCH (09:45)
[2018-09-16] MEDS: METOPROLOL SUCC 50MG EXT REL TAB PO SCH (09:45)
[2018-09-16] MEDS: FINASTERIDE 5 MG TAB PO SCH (09:46)
[2018-09-16] MEDS: OXYCODONE HCL IR 5 MG TAB (IMMEDIATE RELEASE) PO PRN (09:48)
[2018-09-16] MEDS: DOCUSATE SODIUM/SENNA 50/8.6MG TAB PO SCH (09:48)
[2018-09-16] MEDS: VANCOMYCIN HCL 1,500 MG in SODIUM CHLORIDE 0.9% 500 ML IV SCH (10:05)
--- NOTE | 2018-09-16 13:44 | Pharmacy Report ---
Pharmacy Abx Dose Short Note - Date of Service September 16, 2018 - Assessment & Plan Assessment 67 year old M receiving vancomycin for treatment of spinal abscess Day # 2 of vancomycin of antimicrobial therapy, previously treated with daptomycin Plan Vancomycin * Trough level of 17 mcg/mL is therapeutic, however, drawn prior to steady state * Patient's BMI 32 may continue to have some accumulation, patient to be discharged today. Would like trough to be in upper goal range 17-20 put given patient has not reached steady state and uncertain of next trough would reduce frequency to q12H with next dose tonight at 22. Would check trough prior to 4th dose Pharmacy will continue to follow and will adjust dose/frequency as necessary. Thank you.
[2018-09-16] MEDS ORDERED: PHENYLEPHRINE 100MCG/ML 5ML SYR IV ONE (14:11)
[2018-09-16] MEDS ORDERED: ONDANSETRON INJ 2 MG/ML 2 ML VIAL IV ONE (14:11)
[2018-09-16] MEDS ORDERED: BACITRACIN INJ 50,000 UNIT VIAL IM ONE (14:11)
[2018-09-16] MEDS ORDERED: fentaNYL citrate 100 MCG/2 ML VIAL IV ONE ×2 (14:11)
[2018-09-16] MEDS ORDERED: GLYCOPYRROLATE 0.2 MG/ML VIAL IM ONE (14:11)
[2018-09-16] MEDS ORDERED: METOCLOPRAMIDE HCL INJ 5 MG/ML 2 ML VIAL IV ONE (14:11)
[2018-09-16] MEDS ORDERED: PROPOFOL IV EMULSION 10 MG/ML 20 ML VIAL IV ONE (14:11)
[2018-09-16] MEDS ORDERED: DEXAMETHASONE SOD INJ 4 MG/ML VIAL IV ONE (14:11)
[2018-09-16] MEDS ORDERED: BUPIVACAINE/EPINEPHRINE 0.5% MPF 1:200,000 30 ML VIAL INFIL ONE (14:11)
[2018-09-16] MEDS ORDERED: NEOSTIGMINE METHYLSULFATE 1 MG/ML 10ML VIAL IM ONE (14:11)
[2018-09-16] MEDS ORDERED: CALCIUM CHLORIDE 10% 10 ML SYR IV ONE (14:11)
[2018-09-16] MEDS ORDERED: LIDOCAINE HCL 2% 2 ML VIAL/AMP(20MG/ML) INFIL ONE (14:11)
[2018-09-16] MEDS ORDERED: MIDAZOLAM HCL 1 MG/ML 2ML VIAL IV ONE (14:11)
[2018-09-16] MEDS ORDERED: ROCURONIUM BROMIDE 10 MG/ML 5 ML VIAL IV ONE (14:11)
[2018-09-16] MEDS ORDERED: ePHEDrine sulfate 50 MG/ML SYR IV ONE (14:11)
[2018-09-16] MEDS ORDERED: HYDROmorphone INJ 2 MG/ML SYR/VIAL IV ONE (14:11)
[2018-09-16] MEDS ORDERED: VANCOMYCIN HCL 1,500 MG in SODIUM CHLORIDE 0.9% 500 ML IV SCH (22:00)
--- NOTE | 2018-09-23 16:23 | Discharge Summary ---
Date of Service September 16, 2018 Admission HPI Per Admitting Provider 67 y/o M with a complex medical history including CAD, sudden cardiac , combined CHF, DM II, HTN, HLD, ANTONIO, chronic anemia, multiple spinal surgeries. The pt was admitted for spinal decompression 07/31/18. The surgery was complicated by a post-op HI and then a paraspinal abscess for which he required readmission and debridement. He had Vanc/Gent bead implantation and was placed on a 6 week course of Ertapenem for Seratia which was cultured from the wound. He is currently at a rehab facility and has been exhibiting functional decline per his . Over the past week, he has had progressive lower extremity weakness, L lower back pain, urinary hesitancy and has exhibited a degree of confusion and slurred speech. He has not reported fevers or rigors, LE numbness or fecal incontinence. He is a poor historian, however, his is present at bedside to provide the preceding information. Imaging obtained in the ER included a CT head, CTA head and neck and aan abdominal CT. There were no findings of interest on the cranial imaging. The abdominal CT demonstrated a large posterior fluid collection containing multiple radiopaque pledgets which represent the implanted antibiotic beads. Labs are notable for leukocytosis, stable anemia and protein malnutrition. The pt required catheter placement for urinary retention on arrival. After discussion with the orthopedic service, the pt will be admitted for additional evaluation and may possibly need decompression as he is exhibiting lower extremity deficits and urinary retention. PMH: 1) CHF - combined - EF 30-35% 2) CAD - 3V CABG 2002 - post-op NSTEMI 2018 which was medically managed 3) DM II 4) VF arrest leading to ICD placement 2011 5) HTN 6) HLD 7) Chronic sinusitis 8) ANTONIO - not compliant with CPAP due o sinusitis 9) Obese 10) Cervical myelomalacia - required C3-4 surgery 11) Chonic anemia - Hb 9-10 12) Lumbar decompression 07/2018 complicated by paraspinal abscess Surgical: 1) CABG - 3V 2) Lumbar decompression 3) Cervical spinal surgery Social: Currently in a snf for rehab. Does not smoke or drink Family: Noncontributory to current complaint Principal Diagnosis Progressive weakness: likely from L3 impingement Discharge Exam Constitutional: WD/WN, vitals as above + obese Eyes: PERRL, conjunctivae normal, anicteric sclerae ENMT: external ear and nose normal, oropharynx normal Neck: trachea midline, no thyromegaly Respiratory: normal respiratory effort, lungs clear to auscultation Auscultation: + diminished lung sounds (bases bilaterally) Cardiovascular: RRR, no murmur, no edema Gastrointestinal (Abdomen): normal bowel sounds, soft, nontender, no hepatosplenomegaly Musculoskeletal: Spine: normal thoraco-lumbar ROM Extremities: + abnormal strength (profound weakness in legs bilaterally); no cyanosis and no clubbing Skin: no rashes, warm and dry Neurologic: normal touch/pain/proprioception and CN's II-XI intact bilaterally Speech / Cognition: normal speech Motor/Sensory: no tremor Psychiatric: Orientation: oriented to person, oriented to place, oriented to time and cooperative; + not alert (lethargic, awakes appropriately) Eye Contact: + fair eye contact Lymphatic: no cervical or axillary lymphadenopathy Discharge Data Allergies Allergy/AdvReac Type Severity Reaction Status Date / Time No Known Allergies Allergy Verified 08/01/18 15:19 Consultations 09/03/18 17:15 ED Decision to Admit Stat 09/04/18 08:17 Consult Orthopedic Surgery Routine 09/04/18 14:42 Consult Cardiology Routine 09/05/18 12:49 Consult Infectious Diseases Routine 09/10/18 11:08 Consult Case Management - Discharge Planning Routine 09/14/18 10:37 Consult Urology Routine Procedures Performed Operation Date: 09/10/18 07:45 Actual Procedures s L3-L4 Removal of Instrumentation(Not Applicable) - Bong Morales DO p Incision and Drainage of Lumbar Spine, Placement of Antibiotic Beads(Not Applicable) - Bong Morales DO Ordered Studies 09/03/18 15:44 CT abd pelvis IV con only Stat 09/03/18 16:20 CT angio head w con Stat CT angio neck with con Stat CT head/brain wo con Stat 09/04/18 08:55 CT lumbar spine wo con Stat 09/10/18 07:50 US - OR guided needle placemen Urgent 09/10/18 13:15 FL fluoroscopy <1hr Routine FL spine 1V any level Routine 09/13/18 19:42 US venous doppler LE LT Urgent Hospital Course (1) Weakness of lower extremity: 67 y/o M with a complex medical history including CAD, sudden cardiac , combined CHF, DM II, HTN, HLD, ANTONIO, chronic anemia, multiple spinal surgeries Admitted because of progressive lower extremity weakness, L lower back pain concern for impingement at L3 on imaging Imaging obtained in the ER included a CT head, CTA head and neck and aan abdominal CT, were unremarkable The abdominal CT demonstrated a large posterior fluid collection containing multiple radiopaque pledgets which represent the implanted antibiotic beads. Lower extremity weakness possible neural encroachment, infected epidural fluid collection, paraspinal abscess OR on 09/10/18 with I&D and drainage of purulent fluid, sent for culture culture growing Coag negative staph ID recommends Daptomycin, Ertapenem stopped 09/13 all hardware removed, new antibiotic beads placed DOMINGA drains in place, management per Dr. Morales pain slightly increased off the Fentanyl 25mcg, Oxycodone helps a little will add back Fentanyl but only at 12mcg continue Oxycodone PRN, 5mg activity level per Dr. Morales, okay to get OOB to chair, PT/OT ordered, can use mechanical lift ultimate plan will be to go to [facility] this week with PT/OT, switched to vanco will need follow up with Dr. Ndiaye and Dr. Morales (2) Leg weakness, bilateral: see above no improvement in strength since surgery he is markedly deconditioned due to several recent surgeries and prolonged stays in hospital and SNF will need extensive buttermaker rehab, will likely need further spine surgery once infection cleared (3) Chronic systolic heart failure: Lasix 40mg PO daily resumed on 09/11, continues to diurese every day examines slightly volume overloaded but decreasing daily on Lasix (4) Stage III chronic kidney disease: Cr continues to be stable, 0.54 today follow daily now that Lasix will be resumed making adequate urine via luna ask Urology about pulling luna as it has been in place for 30 days per family. D/W urology, will keep in place until patient is stronger. (5) Hypokalemia: improved today at 3.6 will continue the KCl at 40mEq BID K trended down due to resuming Lasix will recommend monitoring as outpatient. (6) Diabetes mellitus, type 2: DM II -remain under reasonable control continue Lantus 7 BID and Novolog SS monitor for hypoglycemia (7) CAD (coronary artery disease): CAD - no evidence of ACS at this time, the pt did have a Left heart cath, 06/28 with multivessel [place] CAD but with patent DELATORRE, and Indu, he did have a dobutamine stress in 07/29 without suggestion of reversable ischemia resume ASA and Plavix today statin, B angy, supportive care continues to be chest pain free, vitals stable troponin checked on 09/11, it is 0.34 (8) Obese: (9) HTN (hypertension): stable on metoprolol (10) High cholesterol: continue Atorvastatin (11) Delirium: AMS, slurred speech-seems to be on and off. He shows no focal neuro deficits. Stopped his as needed morphine. hospitalization/pain/infection all could be possible contributors again, feel that most of his lethargy is medication induced with opiates he was experiencing some mild hallucinations with the Fentanyl at 25mcg watch closely for any further signs of altered mental status with resuming Fentanyl 12mcg. Patient improved on lower fentanyl dose. (12) Chronic indwelling Luna catheter: due to urinary retention as outpatient, when he was at [facility] was supposed to see urology late last week to have luna removed kept due to being post op family asking about it being removed, however will keep in place for now. Total Time Total Time Spent Total Time Spent (In Minutes): 32 Total Time Includes: Examination of the Patient, Discharge Planning and Medication Reconciliation Discharge Plan Discharge Items Patient Disposition: Transfer Nursing Home Fac Reason For Visit: LOWER EXTREMITY WEAKNESS,AMS Discharge Diagnosis: Lower extremity weakness Condition: Fair Discharge Goals: Decrease discomfort, Improve disease control and Improve function Activity: Resume your previous activity Non-emergency contact: Primary Care Provider Call non-emergency contact if: you have any medication questions Follow-up/Referrals: Jose A Solomon [Primary Care Provider] - Diet: Regular Addtl Provider Instructions: Urology Wesly Naranjo: Arrange outpatient follow up with Dr. Fernandez to reassess in our outpatient office to see if patient can have a voiding trial in about 2-3 weeks. F/U with Dr. MORALES IN 2weeks: Continue physical therapy. Would like to transition to bed to chair. F/U with PCP in 1-2 weeks Continue antibiotics for 4-[address] Ndiaye as an outpatient. BMP in 1 week. Prescriptions: New potassium chloride [Klor-Con M20] 20 mEq Tablet,Er Particles/Crystals 40 meq PO DAILY Qty: 30 RF: 0 oxycodone 5 mg Tablet 5 mg PO Q6 PRN (Reason: severe pain) Qty: 15 RF: 0 vancomycin 1.5 gram recon soln 1.5 gm IV Q12H Qty: 60 RF: 0 lidocaine 4 % adhesive patch,medicated 1 patch TOP DAILY Qty: 1 RF: 0 Continued magnesium oxide 400 mg Capsule 400 mg PO QAM Qty: 0 RF: 0 losartan 50 mg Tablet 50 mg PO QAM Qty: 0 RF: 0 omega 3-vuj-rck-fish oil [Fish Oil] 1,000 mg (120 mg-180 mg) Capsule 1 cap PO QAM Qty: 0 RF: 0 atorvastatin 40 mg Tablet 40 mg PO HS Qty: 0 RF: 0 finasteride [Proscar] 5 mg Tablet 5 mg PO QAM Qty: 0 RF: 0 coenzyme Q10 100 mg Capsule 100 mg PO QAM Qty: 0 RF: 0 metoprolol succinate [Toprol XL] 100 mg Tablet Extended Release 24 Hr 100 mg PO QAM Qty: 0 RF: 0 insulin aspart U-100 100 unit/mL Insulin Pen 10 - 50 unit SC TIDM Qty: 0 RF: 0 vitamin B complex Tablet 1 tab PO QAM RF: 0 metformin 1,000 mg Tablet 1,000 mg PO BID RF: 0 clopidogrel 75 mg Tablet 75 mg PO QAM Qty: 30 RF: 0 aspirin [Ecotrin Low Strength] 81 mg Tablet,Delayed Release (Dr/Ec) 81 mg PO QAM Qty: 30 RF: 0 tamsulosin 0.4 mg Capsule 0.4 mg PO HS Qty: 3 RF: 0 sennosides-docusate sodium [Senna with Docusate Sodium] 8.6-50 mg Tablet 2 tab PO BID Qty: 3 RF: 0 furosemide 40 mg tablet 40 mg PO DAILY Qty: 30 RF: 0 acetaminophen 325 mg Tablet 650 mg PO Q6H PRN (Reason: Pain) RF: 0 cyanocobalamin (vitamin B-12) [Vitamin B-12] 1,000 mcg Tablet 1,000 mcg PO DAILY RF: 0 magnesium hydroxide [Milk of Magnesia] 400 mg/5 mL Suspension 30 ml PO DAILY PRN (Reason: Constipation) RF: 0 bisacodyl [Dulcolax (bisacodyl)] 10 mg Suppository 10 mg OR DAILY PRN (Reason: Constipation) RF: 0 Glucagon Emergency Kit (human) 1 mg Recon Soln RF: 0 cholecalciferol (vitamin D3) [Vitamin D3] 1,000 unit Capsule RF: 0 sodium phosphates 9.5-3.5 gram/59 mL Enema 118 ml OR DAILY PRN (Reason: Constipation) RF: 0 Insta-Glucose 24 gram/31 gram Gel PO RF: 0 insulin detemir U-100 100 unit/mL (3 mL) insulin pen 7 unit subcut BID RF: 0 Discontinued ertapenem 1 gram recon soln 1 gm IV DAILY 35 Days RF: 0 oxycodone 5 mg tablet 10 mg PO Q6H PRN (Reason: Pain (Scale Score 7-10)) RF: 0 fentanyl 25 mcg/hr Patch 72 Hour 1 patch TRANSDERMAL Q72H RF: 0 levofloxacin [Levaquin] 750 mg Tablet 750 mg PO DAILY RF: 0 Stand-Alone Forms: Count Includes [facility] Discharge Orders: Discharge Order (Routine); Ordered 09/16/18 Ordered By: Juan Manning Skilled Items Patient informed of condition?: Yes DNR: Yes Discharge Level of Care: Skilled Communicable Disease: No Discharge Prognosis: Stable Admission Data Admit Date/Time: 09/03/18 20:24 Attending Provider: Juan Manning Admit Provider: Prasanna Borjas Primary Care Provider: Jose A Solomon Other Providers: Prasanna Borjas ; Juarez Sanchez ; Omero Bryan ; Amy Aguilar ; Bong Morales ; Christiano Shen ; Robert Ndiaye ; Raphael Fernandez I. Service: Medical Other Interventions: Discharge Summary Assessment (RN) Last Done: 09/16/18 11:11 DC Date/Time DO NOT enter until pt leaves facility: 09/16/18 14:12
== END 2018-09-16 14:12 | DRG 495 ==
LOC: ED 14:38 → 2S 20:24 → SUATTDRO 20:24 → 2S 21:19 → 3N 09-07 15:45 → 2S 09-10 09:07 → 3N 09-11 11:43
DX: E44.1 Mild protein-calorie malnutrition; I25.2 Old myocardial infarction; Z96.1 Presence of intraocular lens; G89.29 Other chronic pain; E87.6 Hypokalemia; R33.9 Retention of urine, unspecified; M99.53 Intervertebral disc stenosis of neural canal of lumbar region; I25.10 Atherosclerotic heart disease of native coronary artery without angina pectoris; N18.3 Chronic kidney disease, stage 3 (moderate); Z79.84 Long term (current) use of oral hypoglycemic drugs; J32.9 Chronic sinusitis, unspecified; E78.5 Hyperlipidemia, unspecified; I25.5 Ischemic cardiomyopathy; G47.33 Obstructive sleep apnea (adult) (pediatric); G93.41 Metabolic encephalopathy; I50.42 Chronic combined systolic (congestive) and diastolic (congestive) heart failure; I13.0 Hypertensive heart and chronic kidney disease with heart failure and stage 1 through stage 4 chronic kidney disease, or unspecified chronic kidney disease; Z98.49 Cataract extraction status, unspecified eye; Z93.0 Tracheostomy status; E11.9 Type 2 diabetes mellitus without complications; Z95.810 Presence of automatic (implantable) cardiac defibrillator

== ENCOUNTER 2018-09-27 10:58 | Inpatient (IN) ==
[2018-09-27 11:47] LABS: Basophils # (auto) 0.03 K/uL (0-0.2); Basophils % (auto) 0.4 %; Eosinophils # (auto) 0.21 K/uL (0-0.5); Eosinophils % (auto) 2.7 %; Hematocrit (blood only) 25.1 % (42-52); Hemoglobin 7.7 g/dL (14.0-18.0); Immature Granulocytes # (auto) 0.07 K/uL (0.00-0.02); Immature Granulocytes % (auto) 0.9 %; Lymphocytes % (auto) 10.4 %; Mean Corpuscular Hgb Conc 30.7 g/dL (32-36); Mean Corpuscular Volume 85.1 fL (80-100); Mean Platelet Volume 9.1 fL (7.4-10.4); Monocytes # (auto) 0.76 K/uL (0.11-0.59); Monocytes % (auto) 9.9 %; Neutrophils # (auto) 5.81 K/uL (1.4-6.5); Neutrophils % (auto) 75.7 %; Platelet Count 247 K/uL (130-400); RDW Coefficient of Variation 16.2 % (11.5-14.5); RDW Standard Deviation 50.4 fL (36.4-46.3); Red Blood Count 2.95 M/uL (4.7-6.1); White Blood Count 7.68 K/uL (4.8-10.8)
--- NOTE | 2018-09-27 11:52 | XRay Report ---
XR chest 1V portable CLINICAL HISTORY: weakness COMPARISON STUDY: 09/03/2018 FINDINGS: The heart is enlarged. There are postsurgical changes of midline sternotomy. There is a rig ht-sided PICC catheter unchanged in position. There is a left subclavian pacer/defibrillator. There a re postsurgical changes present within the cervical spine. There is no acute parenchymal consolidatio n. There are no pleural effusions. There is mild central vascular prominence without evidence of over t failure. There is is probable left shoulder calcific tendinitis. [ IMPRESSION: 1. Cardiomegaly and mild central vascular prominence without evidence of overt failure 2. No evidence of focal pulmonary consolidation Electronically signed by: Stevan Betancourt M.D. 09/27/2018 11:51 AM
[2018-09-27 11:53] LABS: Appearance Urine Turbid (Clear); Bacteria Urine Automated Negative (Negative); Bilirubin Urine Negative (Negative); Blood Urine 2+ (Negative); Color Urine Yellow; Epithelial Cell Urine Auto 20-30 /lpf (0-5); Glucose Urine UA Negative (Negative); Ketones Urine Negative (Negative); Leukocyte Esterase Urine 3+ (Negative); Nitrite Urine Negative (Negative); Protein Urine Negative (Negative); Specific Gravity Urine 1.012 (1.000-1.030); Urobilinogen Urine Negative (Negative); WBC Urine Automated >30 /hpf (0-5)
[2018-09-27 11:54] LABS: Alanine Aminotransferase 19 U/L (12-78); Albumin Level 2.3 gm/dl (3.4-5.0); Aspartate Aminotransferase 18 U/L (15-37); BUN Creatinine Ratio 20.1 (10-20); Blood Urea Nitrogen 50 mg/dl (7-18); Calcium 8.9 mg/dl (8.5-10.1); Carbon Dioxide 25 mmol/L (21-32); Chloride 99 mmol/L (98-107); Creatinine Clr Calc Pharmacy 33.2 ml/min; Est GFR (African American) 30.1; Glucose 106 mg/dl (70-99); Sodium 132 mmol/L (136-145)
[2018-09-27 12:04] LABS: Albumin Globulin Ratio 0.6 (0.9-2); Alkaline Phosphatase 122 U/L (45-117); Bilirubin,Total 0.4 mg/dl (0.2-1); Globulin 4.1 gm/dl (2.5-4.0); Total Protein 6.4 gm/dl (6.4-8.2); Troponin I < 0.015 ng/ml (0-0.045)
[2018-09-27 12:04] LABS: Cast Urine Automated 0 /lpf (0-5)
[2018-09-27] MEDS ORDERED: HYDROmorphone INJ 0.5 MG/0.5 ML SYR IV PRN (12:08)
[2018-09-27 12:19] LABS: Ovalocytes 1+
--- NOTE | 2018-09-27 13:01 | CT Scan Report ---
CT head/brain wo con CLINICAL HISTORY: Acute change in mental status. COMPARISON STUDY: 09/03/2018 TECHNIQUE: Axial CT of the brain is performed from the vertex to the skull base. IV contrast was not administered for this examination. A dose lowering technique was utilized adhering to the principles of ALARA. CT DOSE: 537.48 mGy.cm FINDINGS: No intra or extra-axial mass lesions are visualized. There is no CT evidence of acute cortical infarc tion. There is no evidence of midline shift. There is no acute hemorrhage. No calvarial fractures ar e visualized. There are patchy white matter hypodensities likely on a small vessel basis. There is mild particular prominence, likely secondary to global volume loss There is a persistent right mastoid effusion. There is also soft tissue within the right middle ear c avity. IMPRESSION: 1. Persistent right mastoid effusion, and opacification of the right middle ear cavity 2. No acute intracranial findings Electronically signed by: Stevan Betancourt M.D. 09/27/2018 12:59 PM
--- NOTE | 2018-09-27 13:10 | CT Scan Report ---
CT SCAN OF THE ABDOMEN AND PELVIS WITHOUT CONTRAST CLINICAL HISTORY: altered mental status, diffuse abd tenderness COMPARISON STUDY: September 03, 2018 TECHNIQUE: CT scan of the abdomen and pelvis was performed from the lung bases to the proximal femurs . Images are reviewed in the axial, sagittal, and coronal planes. IV contrast was not administered fo r this examination. A dose lowering technique was utilized adhering to the principles of ALARA. CT DOSE: 1419.55 mGy.cm FINDINGS: Lower chest: There is bilateral gynecomastia. There are small bilateral pleural effusions. Liver: The unenhanced liver is normal in size, contour, and attenuation. There is no intrahepatic gayle iary ductal dilatation. Gallbladder: Unremarkable. Spleen: Normal in size and attenuation. Pancreas: Unremarkable. Adrenal glands: Unremarkable. Kidneys: There is a horseshoe kidney. No renal ureteral or bladder calculi are visualized. Bowel: There are no transition zones indicate bowel obstruction. There is mild fecal retention. There is no acute diverticulitis. There are no findings to indicate acute appendicitis. Peritoneum: There is no intraperitoneal free air or abdominal ascites. Vasculature: The abdominal aorta is normal in course and caliber. Adenopathy: None. Pelvic viscera: There is a joint Rojas catheter. There is mild bladder wall thickening. There is mild infiltration of the presacral fat. Skeletal structures: There are extensive postsurgical changes. There is been prior hardware removal. There are radiopaque pledgets within the posterior soft tissues. IMPRESSION: 1. No acute intra-abdominal findings on this noncontrast study 2. No evidence of bowel obstruction. No evidence of free air 3. Horseshoe kidney 4. Extensive postsurgical changes within the lumbar spine. 5. Mild fecal retention 6. Small pleural effusions Electronically signed by: Stevan Betancourt M.D. 09/27/2018 1:08 PM
[2018-09-27] MEDS ORDERED: PIPERACILL/TAZOBAC CONSULT ACTIVE PRN (14:11)
[2018-09-27] MEDS ORDERED: PIPERACILLIN/TAZOBACTAM 4.5 GM/120 ML BAG IV ONE (14:11)
--- NOTE | 2018-09-27 16:19 | History & Physical Report ---
Date of Service September 27, 2018 Assessment & Plan (1) Altered mental status: certainly multiple reasons for altered mental status metabolic encephalopathy due to PAULA, chronic pain, chronic infection, narcotics will treat PAULA unfortunately the patient continues to have pain despite regimen of narcotics continue on Zyvox for coag negative staph patient is calm, oriented to person and place having occasional hallucinations but easily redirected (2) Acute kidney injury: Cr up to 2.5, was 2.8 on 09/22 was treated with IV fluids at [facility] [place], little improvement in Cr making urine via luna, so this is non oliguric thought that PAULA was due to Vanco, has since been stopped consult Dr. Mathews for recommendations will continue NSS at 75cc/hr, oral intake has been suboptimal hold nephrotoxins and dose medications accordingly (3) Coagulase-negative staphylococcal infection: continue on Zyvox was on Vanco but stopped due to PAULA consult Dr. Ndiaye for further instructions (4) Post-operative pain: very difficult to control seems to have sharp spasm like pains discussed with that we could try very low dose muscle relaxer but could worsen lethargy will try Baclofen continue OxyContin and Oxycodone at this point will consult Pain Management numerous providers have been involved in pain management, his regimen has been changed several times was on Fentanyl patch last admission upset that pain is still difficult to control discussed that zero pain is not realistic with multiple surgeries and deconditioning (5) Paraspinal abscess: see above for coag negative infection had surgery on 09/10/18 (6) Chronic systolic heart failure: patient examines euvolemic will hold Lasix for time being given his PAULA monitor closely for volume overload (7) Urinary retention: continue luna, has been in for over 30 days (8) Acute anemia: Hb has been dropping very slowly will continue to monitor transfuse if < 7 (9) Ischemic cardiomyopathy: (10) ICD (implantable cardioverter-defibrillator) in place: (11) Diabetes mellitus, type 2: diabetic diet Novolog History of Present Illness Chief Complaint: "Hey don't I know you" Primary Care Provider: [facility] 67 yo male well known to our service who presents with altered mental status from [facility]. The patient has long history of lumbar spinal stenosis that was treated with decompression and fusion. He subsequently developed as S erratia infection identified on 08/11/18 and was treated with IV Ertapenem. He returned to the hospital due to refractory pain and signs of infection. He was taken to the OR on 09/10/18 for exploration and he was found to have paraspinal abscess. Fluid cultured and grew Coag negative staph. All hardware was removed. He was treated with Daptomycin IV and then changed to Vancomycin IV and discharged to [facility]. His provides the more recent history. He was discharged to [facility] on 09/16/18 on Vancomycin IV for the paraspinal abscess. He was progressing very slowly, he was requiring 3-4 people just to help get him out of bed. She said he constantly has pain, winces, acts like muscles are spasming. She says he is never going to improve if he has pain like this, she cannot understand why his pain is not controlled. His luna catheter has remained in placed for urinary retention. He had a decent appetite for the first week but his appetite has gotten worse past few days. No fever or chills noted. He followed up with Dr. Ndiaye. Routine lab work for being on Vancomycin showed a Cr of 2.8, it had been 0.5 prior to discharge on 09/16. The vancomycin was stopped, changed to Zyvox PO BID. Elevated Cr treated with IV fluids at [facility], mild improvement to 2.5, still making urine. Over the past two days he has become more lethargic. He is having some hallucinations, having conversations with family members, thinking he sees them. Since he appeared to be getting worse and Cr was still elevated he was sent to ED for evaluation. Allergies Allergy/AdvReac Type Severity Reaction Status Date / Time No Known Allergies Allergy Verified 08/01/18 15:19 Home Medications Home Medications Medication Instructions Recorded Confirmed Type magnesium oxide 400 mg PO QAM #0 tab 11/27/11 09/27/18 History losartan 50 mg PO QAM #0 tab 05/26/12 09/27/18 History omega [id number]-fish oil [Fish Oil] 1 cap PO QAM #0 cap 05/26/12 09/27/18 History atorvastatin 40 mg PO HS #0 tab 11/12/14 09/27/18 History coenzyme Q10 100 mg PO QAM #0 11/12/14 09/27/18 History finasteride [Proscar] 5 mg PO QAM #0 11/12/14 09/27/18 History insulin aspart U-100 10 unit SC TIDM #0 03/07/16 09/27/18 History metoprolol succinate [Toprol XL] 100 mg PO QAM #0 03/07/16 09/27/18 History metformin 1,000 mg PO BID 05/16/18 09/27/18 History vitamin B complex 1 tab PO QAM 07/22/18 09/27/18 History aspirin [Ecotrin Low Strength] 81 mg PO QAM #30 tab 08/14/18 09/27/18 Rx clopidogrel 75 mg PO QAM #30 tab 08/14/18 09/27/18 Rx furosemide 40 mg PO DAILY #30 tab 08/14/18 09/27/18 Rx sennosides-docusate sodium [Senna 2 tab PO BID #3 tab 08/14/18 09/27/18 Rx with Docusate Sodium] tamsulosin 0.4 mg PO HS #3 cap 08/14/18 09/27/18 Rx Glucagon Emergency Kit (human) 1 dose IM DIRECTED PRN 08/26/18 09/27/18 History Insta-Glucose 1 dose PO 08/26/18 History acetaminophen 650 mg PO Q6H PRN 08/26/18 09/27/18 History bisacodyl [Dulcolax (bisacodyl)] 10 mg VT DAILY PRN 08/26/18 09/27/18 History cholecalciferol (vitamin D3) 2,000 units PO DAILY 08/26/18 09/27/18 History [Vitamin D3] cyanocobalamin (vitamin B-12) 1,000 mcg PO DAILY 08/26/18 09/27/18 History [Vitamin B-12] magnesium hydroxide [Milk of 30 ml PO DAILY PRN 08/26/18 09/27/18 History Magnesia] sodium phosphates [Fleet Pediatric] 118 ml VT DAILY PRN 08/26/18 09/27/18 History insulin detemir U-100 7 unit SUBCUT BID 09/03/18 09/27/18 History lidocaine 1 patch TOP DAILY #1 ea 09/16/18 09/27/18 Rx oxycodone 5 mg PO Q6 PRN #15 tab 09/16/18 09/27/18 Rx potassium chloride [Klor-Con M20] 40 meq PO DAILY #30 tab 09/16/18 09/27/18 Rx insulin lispro [Humalog U-100 1 sliding scale dose SUBCUT 09/27/18 09/27/18 History Insulin] USEASDIRECTD linezolid [Zyvox] 600 mg PO Q12H 09/27/18 09/27/18 History multivitamin 1 tab PO QAM 09/27/18 09/27/18 History ondansetron HCl 4 mg PO Q6 PRN 09/27/18 09/27/18 History oxycodone [OxyContin] 10 mg PO Q12H 09/27/18 09/27/18 History Past Med/Surg History Medical History Difficult airway for intubation [employer] 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 Admitted [facility] 10/18/11 for onset of incapacitating cervical myelopathy. Spinal tap showed [employer] Lyme disease, MRI showed severe spinal cord compression at C3-4 with myelomalacia and intramedullary mass. Pt had c-spine surgery, subsequent prolonged hospital admission, complicated post-op course. Difficult intubation Sudden cardiac Post-op 2011 [facility]. Now has ICD. Sleep apnea PT NOT CURRENTLY CPAP 2/2 recurrent sinus infections. WILL SEE SLEEP MEDICINE/DR. ARCHULETA LATE 2017 Diabetes mellitus, type 2 IDDM. Degenerative disc disease Chronic back pain CHRONIC PAIN IN LEFT LEG Ischemic cardiomyopathy EF WNL 11/2017 CAD (coronary artery disease) s/p triple CABG 2002 Full dentures (Acute) Obese (Acute) Heart disease (Acute) HTN (hypertension) (Acute) High cholesterol (Acute) Coagulase-negative staphylococcal infection Paraspinal abscess Surgical History History of esophagogastroduodenoscopy (EGD) History of colonoscopy History of cardiac cath 2011 AT [facility] - UNSURE IF HE HAS STENTS. History of tracheostomy Hx of transurethral resection of prostate History of cataract extraction with lens replacement Hx of tonsillectomy (Acute) H/O cervical spine surgery (Acute) ACDI C3-4, C7 corpectomy, removal of C7 intramedullary mass. 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 Beliefs That Will Affect Care: None marital status: Current Living Situation: Rehab Current Living Situation Comment: temporarily living at [facility] Other Information That Helps Us Care for You: No Feels Safe at Home: Yes Smoking Status: Never smoker Tobacco Type: smokeless tobacco Do You Dip or Chew Tobacco: Yes (last chew was in july) Second Hand Exposure: No Tobacco Cessation Education Requested by Patient: No Hx Alcohol Use: No Hx Substance Use: No Review of Systems Review of Systems: All systems reviewed & are unremarkable except as noted in HPI & below Constitutional: + fatigue and + weakness; no fever, no chills and no sweats Respiratory: + dyspnea on exertion; no cough and no dyspnea Cardiovascular: no chest pain Gastrointestinal: no abdominal pain, no nausea, no vomiting, no constipation and no diarrhea/loose stools Genitourinary: + difficulty urinating (luna in place) Musculoskeletal: + back pain (severe, gets sharp muscle spasms) Physical Exam Constitutional: WD/WN, vitals as above + obese Eyes: PERRL, conjunctivae normal, anicteric sclerae ENMT: external ear and nose normal, oropharynx normal Neck: trachea midline, no thyromegaly Respiratory: normal respiratory effort, lungs clear to auscultation Cardiovascular: Rate/Rhythm: regular rate and regular rhythm Heart Sounds: normal S1 and normal S2; no murmur Vessels: no JVD Extremities: + edema (trace bilaterally) Gastrointestinal (Abdomen): normal bowel sounds, soft, nontender, no hepatosplenomegaly Musculoskeletal: Head/Neck/Chest: normocephalic and head atraumatic Spine: + limited thoraco-lumbar ROM (cannot move lower or upper back at all independently) Extremities: + abnormal strength (profound weakness in lower legs, 1-2 out of 5 strength bilaterally) and + muscle atrophy; no cyanosis and no clubbing Skin: no rashes, warm and dry Neurologic: patellar DTR's 2+ bilat, sensation intact and PERRL, EOMI, accommodation nl, no face palsy, no dysarthria Psychiatric: A+Ox3, euthymic affect Lymphatic: no cervical or axillary lymphadenopathy Results & Data Vital Signs (Past 12 Hours) Vital Signs Temp Pulse Resp BP Pulse Ox 09/27/18 15:30 71 19 118/67 96 09/27/18 15:01 66 20 112/56 L 97 09/27/18 15:00 66 17 100 09/27/18 14:31 67 18 122/62 90 09/27/18 14:30 66 13 98 09/27/18 14:01 69 18 97 09/27/18 14:00 69 16 96 09/27/18 13:30 69 18 108/62 94 09/27/18 13:19 68 21 97 09/27/18 13:18 67 13 121/57 L 96 09/27/18 13:16 68 20 99 09/27/18 12:30 68 16 98 09/27/18 12:00 75 18 125/61 90 09/27/18 11:40 71 16 123/67 90 09/27/18 11:30 73 23 93 09/27/18 11:28 37.2 C 75 16 142/70 H 96 09/27/18 11:07 82 24 97 09/27/18 11:04 79 20 142/70 H 96 Laboratory Results Laboratory Results - last 24 hr 09/27/18 09/27/18 09/27/18 11:14 11:14 12:05 WBC 7.68 RBC 2.95 L Hgb 7.7 L Hct 25.1 L MCV 85.1 MCH 26.1 MCHC 30.7 L RDW Std Deviation 50.4 H RDW Coeff of Norbert 16.2 H Plt Count 247 MPV 9.1 Immature Gran % (Auto) 0.9 Neut % (Auto) 75.7 Lymph % (Auto) 10.4 [place] % (Auto) 9.9 Eos % (Auto) 2.7 Baso % (Auto) 0.4 Immature Gran # (Auto) 0.07 H Neut # (Auto) 5.81 Lymph # (Auto) 0.80 L [place] # (Auto) 0.76 H Eos # (Auto) 0.21 Baso # (Auto) 0.03 Ovalocytes 1+ Sodium 132 L Potassium 5.0 Chloride 99 Carbon Dioxide 25 Anion Gap 8.0 BUN 50 H Creatinine 2.50 H Est Cr Clr Drug Dosing 33.2 Est GFR ( Amer) 30.1 Est GFR (Non-Af Amer) 26.0 BUN/Creatinine Ratio 20.1 H Glucose 106 H POC Glucose POC Lactic Acid Joe Calcium 8.9 Magnesium 2.0 Total Bilirubin 0.4 AST 18 ALT 19 Alkaline Phosphatase 122 H Ammonia 17.5 Troponin I < 0.015 Total Protein 6.4 Albumin 2.3 L Globulin 4.1 H Albumin/Globulin Ratio 0.6 L TSH 3.930 Urine Color Urine Appearance Urine pH Ur Specific [place] Urine Protein Urine Glucose (UA) Urine Ketones Urine Blood Urine Nitrite Urine Bilirubin Urine Urobilinogen Ur Leukocyte Esterase Urine WBC (Auto) Urine RBC (Auto) U Hyaline Cast (Auto) U Epithel Cells (Auto) Urine Bacteria (Auto) Urine Yeast 09/27/18 09/27/18 09/27/18 12:12 18:50 Unknown WBC RBC Hgb Hct MCV MCH MCHC RDW Std Deviation RDW Coeff of Norbert Plt Count MPV Immature Gran % (Auto) Neut % (Auto) Lymph % (Auto) [place] % (Auto) Eos % (Auto) Baso % (Auto) Immature Gran # (Auto) Neut # (Auto) Lymph # (Auto) [place] # (Auto) Eos # (Auto) Baso # (Auto) Ovalocytes Sodium Potassium Chloride Carbon Dioxide Anion Gap BUN Creatinine Est Cr Clr Drug Dosing Est GFR ( Amer) Est GFR (Non-Af Amer) BUN/Creatinine Ratio Glucose POC Glucose 94 POC Lactic Acid Joe 1.09 Calcium Magnesium Total Bilirubin AST ALT Alkaline Phosphatase Ammonia Troponin I Total Protein Albumin Globulin Albumin/Globulin Ratio TSH Urine Color Yellow Urine Appearance Turbid H Urine pH 6.0 Ur Specific [place] 1.012 Urine Protein Negative Urine Glucose (UA) Negative Urine Ketones Negative Urine Blood 2+ H Urine Nitrite Negative Urine Bilirubin Negative Urine Urobilinogen Negative Ur Leukocyte Esterase 3+ H Urine WBC (Auto) >30 H Urine RBC (Auto) 10-30 H U Hyaline Cast (Auto) 0 U Epithel Cells (Auto) 20-30 H Urine Bacteria (Auto) Negative Urine Yeast Budding w/ Hyphae H Diagnostic Findings CT ABDOMEN PELVIS IMPRESSION: 1. No acute intra-abdominal findings on this noncontrast study 2. No evidence of bowel obstruction. No evidence of free air 3. Horseshoe kidney 4. Extensive postsurgical changes within the lumbar spine. 5. Mild fecal retention 6. Small pleural effusions CT HEAD IMPRESSION: 1. Persistent right mastoid effusion, and opacification of the right middle ear cavity 2. No acute intracranial findings CXR IMPRESSION: 1. Cardiomegaly and mild central vascular prominence without evidence of overt failure 2. No evidence of focal pulmonary consolidation Medications Administered Current Inpatient Medications Acetaminophen (Tylenol) 650 mg PO Q4H PRN PRN Reason: Pain or Fever Stop: 10/27/18 17:27 Aspirin (Ecotrin Ectab) 81 mg PO QAM KAYLYNN Stop: 10/28/18 08:59 Atorvastatin Calcium (Lipitor) 40 mg PO HS KAYLYNN Stop: 10/27/18 20:59 Baclofen (Lioresal) 5 mg PO BID PRN PRN Reason: Muscle Spasm Stop: 10/27/18 17:27 Last Admin: 09/27/18 18:42 Dose: 5 mg Documented by: Clopidogrel Bisulfate (Plavix) 75 mg PO QAM KAYLYNN Stop: 10/28/18 08:59 Cyanocobalamin (Vitamin B-12) 1,000 mcg PO DAILY KAYLYNN Stop: 10/28/18 08:59 Finasteride (Proscar) 5 mg PO QAM [facility] Stop: 10/28/18 08:59 Heparin Sodium (Porcine) (Heparin Sodium (Porcine)) 5,000 units SQ Q8 KAYLYNN Stop: 10/27/18 21:59 Sodium Chloride (Nss 1000ml) 1,000 mls @ 75 mls/hr IV [id number] KAYLYNN Stop: 09/28/18 06:47 Last Admin: 09/27/18 18:29 Dose: 75 mls/hr Documented by: Insulin Aspart (Novolog Flexpen) 0 units SC ACHS KAYLYNN Stop: 10/27/18 20:59 Insulin Detemir (Levemir Flextouch) 7 units SQ BID KAYLYNN Stop: 10/27/18 20:59 Linezolid (Zyvox) 600 mg PO Q12H KAYLYNN Stop: 10/07/18 18:59 Last Admin: 09/27/18 18:42 Dose: 600 mg Documented by: Magnesium Oxide (Mag-Ox) 400 mg PO QAM [facility] Stop: 10/28/18 08:59 Metoprolol Succinate (Toprol Xl) 100 mg PO QAM [facility] Stop: 10/28/18 08:59 Ondansetron HCl (Zofran) 4 mg IV Q6H PRN PRN Reason: Nausea Stop: 10/27/18 17:27 Oxycodone HCl (Roxicodone Immediate Rel) 5 mg PO Q6 PRN PRN Reason: severe pain Stop: 10/11/18 17:27 Last Admin: 09/27/18 18:21 Dose: 5 mg Documented by: Oxycodone HCl (Oxycontin) 10 mg PO Q12H KAYLYNN Stop: 10/11/18 20:59 Polyethylene Glycol (Miralax Powder Packet) 17 gm PO DAILY PRN PRN Reason: Constipation Stop: 10/27/18 17:27 Tamsulosin HCl (Flomax) 0.4 mg PO HS KAYLYNN Stop: 10/27/18 20:59 Vitamin D (Vitamin D3) 2,000 units PO DAILY KAYLYNN Stop: 10/28/18 08:59 Code Status & VTE Plan Code Status full code VTE Prophylaxis Plan VTE Prophylaxis will be ordered: Yes
--- NOTE | 2018-09-27 17:16 | Emergency Department Note ---
Entered by Sumaya Menendez acting as a scribe for Vincenzo Blanco MD ED Provider Note CHIEF COMPLAINT: AMS. HISTORY OF PRESENT ILLNESS: The patient is a 67 year old male who presents to the Emergency Room with complaints of altered mental status. He is currently residing at [facility] and was receiving IV antibiotics for an infection until yesterday, when he was placed on the pill form of the antibiotic by Dr. Ndiaye of Infectious Disease. His family states she has noticed the patient has been confused since undergoing back surgery on August [address] Morales of [place]. Nursing staff told her that last night he tried to pull out his catheter and was possibly hallucinating. The patient complains of some abdominal pain. He did receive Oxycodone at [facility] for his post-surgical pain prior to arrival. Pt denies LOC, headache, fevers, chills, diaphoresis, visual changes, neck pain, chest pain, breathing difficulties, nausea, vomiting, melena, hematochezia, urinary symptoms, numbness, weakness, lymphadenopathy, rash, or other complaints. REVIEW OF SYSTEMS: See HPI for pertinent positives and negatives. A total of ten systems were reviewed and were otherwise negative. PMHx/PSHx: PAULA. CKD. Back pain. CAD. DM. Lumbar stenosis. HTN. SOCIAL HISTORY: Patient lives at home. PHYSICAL EXAM: GENERAL: Awake, alert, well-appearing, in no distress HENT: Normocephalic, atraumatic. Oropharynx unremarkable. EYES: Pale conjunctiva. Sclera non-icteric. NECK: Inspection normal. Non-tender. Supple. No nuchal rigidity. FROM. No masses. RESPIRATORY: Clear to auscultation. No wheezes. No rales. Normal respiratory effort. CARDIAC: Normal rate. Normal rhythm. No murmurs. No rubs. Extremities warm and well perfused. Pulses equal. No JVD. GI: Soft, non-distended. Mild abdominal tenderness to palpation. No rebound or guarding. No masses. RECTAL: Deferred. : Indwelling Rojas catheter. MUSCULOSKELETAL: Atraumatic. Chest examination reveals no tenderness. The back is symmetrical on inspection without obvious abnormality. Incision is clean, dry and intact. Mild lumbar erythema and tenderness. There is no CVA tenderness to palpation. No joint edema. LOWER EXTREMITIES: Calves are equal size bilaterally and non-tender. No edema. No discoloration. NEURO: Altered sensorium. No sensory or motor deficits noted. SKIN: No rash or jaundice noted. EMERGENCY DEPARTMENT COURSE: 1202: The patient was evaluated in room C7, and a complete history and physical examination were performed. 1441: I reevaluated the patient. He is resting comfortably. I discussed my recommendation he remain in the hospital for further evaluation and management and his daughter verbalized complete understanding and agreement. 1515: I discussed the patients case with Dr. Cunningham, [facility] Hospitalist. The patient will be further evaluated. MEDICAL DECISION MAKING: Prior records/ancillary studies reviewed. The patient had a sensitive Serratia marcescens infection. It was intermediate to Rocephin. Nursing notes reviewed and agree them. Additional history obtained from . The patient's history was concerning for altered mental status. Differential diagnosis: Etiologies such as infection, hypoglycemia, electrolyte abnormalities, cardiac sources, intracerebral event, toxicologic, neurologic, as well as others were entertained. Physical examination: As above. ER treatment provided: IV Lock IV Dilaudid IV Zosyn on reassessment the patient felt better. He still had periods of confusion. Diagnostics interpretation by me: ECG: No acute ischemia. The labs revealed a moderate anemia on CBC but this is not prior. TSH negative. Troponin negative. The patient's kidney function was normal on September 19. He now has a significant elevation of his creatinine at 2.5. It appears that this occurred in the last few days based upon previous outpatient lab tests. This is concerning for acute kidney injury/acute renal failure. The patient's urinalysis is somewhat concerning. He does have an indwelling catheter. Blood and urine cultures pending. Lactate negative. Imaging studies: CT scan of the head and abdomen and pelvis did not reveal any significant pathology. No signs of renal obstruction. The patient has some inflammatory change from the mastoid however the patient has no headache. Consultation: A consultation was placed with the hospitalist. The case was discussed and diagnostics were reviewed. The patient was evaluated in the ER for further treatment. IMPRESSION: AMS. UTI Anemia Acute renal failure PLAN: Evaluation by Hospitalist. The scribe's documentation has been prepared under my direction and personally reviewed by me in its entirety. I confirm that the note above accurately reflects all work, treatment, procedures, and medical decision making performed by me. Impression & Plan Altered mental status Past Med/Surg History Medical History Difficult airway for intubation [employer] 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 Admitted [facility] 10/18/11 for onset of incapacitating cervical myelopathy. Spinal tap showed [employer] Lyme disease, MRI showed severe spinal cord compression at C3-4 with myelomalacia and intramedullary mass. Pt had c-spine surgery, subsequent prolonged hospital admission, complicated post-op course. Difficult intubation Sudden cardiac Post-op 2011 [facility]. Now has ICD. Sleep apnea PT NOT CURRENTLY CPAP 2/2 recurrent sinus infections. WILL SEE SLEEP MEDICINE/DR. ARCHULETA LATE 2017 Diabetes mellitus, type 2 IDDM. Degenerative disc disease Chronic back pain CHRONIC PAIN IN LEFT LEG Ischemic cardiomyopathy EF WNL 11/2017 CAD (coronary artery disease) s/p triple CABG 2002 Full dentures (Acute) Obese (Acute) Heart disease (Acute) HTN (hypertension) (Acute) High cholesterol (Acute) Surgical History History of esophagogastroduodenoscopy (EGD) History of colonoscopy History of cardiac cath 2011 AT [facility] - UNSURE IF HE HAS STENTS. History of tracheostomy Hx of transurethral resection of prostate History of cataract extraction with lens replacement Hx of tonsillectomy (Acute) H/O cervical spine surgery (Acute) ACDI C3-4, C7 corpectomy, removal of C7 intramedullary mass. History of lumbar spinal fusion (Acute) S/P triple vessel bypass (Acute) [facility]2002 History of incision and drainage Lumbar spine on 08/11; complicated by difficult intubation with only #6.5 ETT able to be placed and patient kept intubated post op Family History Other No pertinent family history Social History Preferred Language: Belarusian Communication Ability: Impaired Visual Impairment: No Limitations Hearing Ability: Normal Beliefs That Will Affect Care: Moravian Moravian Beliefs: Mandaen marital status: Current Living Situation: Spouse and Correction Current Living Situation Comment: currenlty at SNF for rehab s/p lumbar surgery Feels Safe at Home: Yes Smoking Status: Former smoker Tobacco Type: smokeless tobacco Second Hand Exposure: No Hx Alcohol Use: No Hx Substance Use: No Results & Data Vital Signs Vital Signs - 24 hr 09/27/18 11:04 09/27/18 11:07 09/27/18 11:28 Temperature 37.2 C Temperature Source Oral Sepsis Recent Fever Within 48 Hours Yes Sepsis New/Unexplained Change in Mental Status Yes Sepsis Action Taken by Nursing Physician Notified Pulse Rate 79 82 75 Pulse Rate from SpO2 Sensor 80 81 Respiratory Rate 20 24 16 Respiratory Effort / Characteristics Non-Labored Spontaneous Respiratory Depth Normal Respiratory Pattern Regular Blood Pressure 142/70 H 142/70 H Blood Pressure Mean 94 94 Pulse Oximetry 96 97 96 Oxygen Delivery Method Room Air 09/27/18 11:30 09/27/18 11:40 09/27/18 12:00 Temperature Temperature Source Sepsis Recent Fever Within 48 Hours Sepsis New/Unexplained Change in Mental Status Sepsis Action Taken by Nursing Pulse Rate 73 71 75 Pulse Rate from SpO2 Sensor 73 71 73 Respiratory Rate 23 16 18 Respiratory Effort / Characteristics Respiratory Depth Respiratory Pattern Blood Pressure 123/67 125/61 Blood Pressure Mean 85 82 Pulse Oximetry 93 90 90 Oxygen Delivery Method 09/27/18 12:30 09/27/18 13:16 09/27/18 13:18 Temperature Temperature Source Sepsis Recent Fever Within 48 Hours Sepsis New/Unexplained Change in Mental Status Sepsis Action Taken by Nursing Pulse Rate 68 68 67 Pulse Rate from SpO2 Sensor 68 69 68 Respiratory Rate 16 20 13 Respiratory Effort / Characteristics Respiratory Depth Respiratory Pattern Blood Pressure 121/57 L Blood Pressure Mean 78 Pulse Oximetry 98 99 96 Oxygen Delivery Method 09/27/18 13:19 09/27/18 13:30 09/27/18 14:00 Temperature Temperature Source Sepsis Recent Fever Within 48 Hours Sepsis New/Unexplained Change in Mental Status Sepsis Action Taken by Nursing Pulse Rate 68 69 69 Pulse Rate from SpO2 Sensor 68 68 68 Respiratory Rate 21 18 16 Respiratory Effort / Characteristics Respiratory Depth Respiratory Pattern Blood Pressure 108/62 Blood Pressure Mean 77 Pulse Oximetry 97 94 96 Oxygen Delivery Method 09/27/18 14:01 09/27/18 14:30 09/27/18 14:31 Temperature Temperature Source Sepsis Recent Fever Within 48 Hours Sepsis New/Unexplained Change in Mental Status Sepsis Action Taken by Nursing Pulse Rate 69 66 67 Pulse Rate from SpO2 Sensor 69 66 67 Respiratory Rate 18 13 18 Respiratory Effort / Characteristics Respiratory Depth Respiratory Pattern Blood Pressure 122/62 Blood Pressure Mean 91 82 Pulse Oximetry 97 98 90 Oxygen Delivery Method 09/27/18 15:00 09/27/18 15:01 09/27/18 15:30 Temperature Temperature Source Sepsis Recent Fever Within 48 Hours Sepsis New/Unexplained Change in Mental Status Sepsis Action Taken by Nursing Pulse Rate 66 66 71 Pulse Rate from SpO2 Sensor 66 67 70 Respiratory Rate 17 20 19 Respiratory Effort / Characteristics Respiratory Depth Respiratory Pattern Blood Pressure 112/56 L 118/67 Blood Pressure Mean 74 84 Pulse Oximetry 100 97 96 Oxygen Delivery Method 09/27/18 16:00 09/27/18 16:01 09/27/18 16:30 Temperature Temperature Source Sepsis Recent Fever Within 48 Hours Sepsis New/Unexplained Change in Mental Status Sepsis Action Taken by Nursing Pulse Rate 68 67 65 Pulse Rate from SpO2 Sensor 67 66 66 Respiratory Rate 16 13 16 Respiratory Effort / Characteristics Respiratory Depth Respiratory Pattern Blood Pressure 114/63 101/62 Blood Pressure Mean 80 75 Pulse Oximetry 100 97 99 Oxygen Delivery Method Home Medications Current Medication List: was personally reviewed by me Laboratory Data Attestation: I reviewed the patient's lab results. Result diagrams: 09/27/18 11:14 09/27/18 11:14 Lab Results 09/27/18 09/27/18 09/27/18 Range/Units 11:14 11:14 12:05 WBC 7.68 (4.8-10.8) K/uL RBC 2.95 L (4.7-6.1) M/uL Hgb 7.7 L (14.0-18.0) g/dL Hct 25.1 L (42-52) % MCV 85.1 (80-100) fL MCH 26.1 (25-34) pg MCHC 30.7 L (32-36) g/dL RDW Std Deviation 50.4 H (36.4-46.3) fL RDW Coeff of Norbert 16.2 H (11.5-14.5) % Plt Count 247 (130-400) K/uL MPV 9.1 (7.4-10.4) fL Immature Gran % (Auto) 0.9 % Neut % (Auto) 75.7 % Lymph % (Auto) 10.4 % [place] % (Auto) 9.9 % Eos % (Auto) 2.7 % Baso % (Auto) 0.4 % Immature Gran # (Auto) 0.07 H (0.00-0.02) K/uL Neut # (Auto) 5.81 (1.4-6.5) K/uL Lymph # (Auto) 0.80 L (1.2-3.4) K/uL [place] # (Auto) 0.76 H (0.11-0.59) K/uL Eos # (Auto) 0.21 (0-0.5) K/uL Baso # (Auto) 0.03 (0-0.2) K/uL Ovalocytes 1+ Sodium 132 L (136-145) mmol/L Potassium 5.0 (3.5-5.1) mmol/L Chloride 99 (98-107) mmol/L Carbon Dioxide 25 (21-32) mmol/L Anion Gap 8.0 (3-11) BUN 50 H (7-18) mg/dl Creatinine 2.50 H (0.6-1.4) mg/dl Est Cr Clr Drug Dosing 33.2 ml/min Est GFR ( Amer) 30.1 Est GFR (Non-Af Amer) 26.0 BUN/Creatinine Ratio 20.1 H (10-20) Glucose 106 H (70-99) mg/dl POC Lactic Acid Joe (0.90-1.70) mmol/L Calcium 8.9 (8.5-10.1) mg/dl Magnesium 2.0 (1.8-2.4) mg/dl Total Bilirubin 0.4 (0.2-1) mg/dl AST 18 (15-37) U/L ALT 19 (12-78) U/L Alkaline Phosphatase 122 H (45-117) U/L Ammonia 17.5 (11-32) umol/L Troponin I < 0.015 (0-0.045) ng/ml Total Protein 6.4 (6.4-8.2) gm/dl Albumin 2.3 L (3.4-5.0) gm/dl Globulin 4.1 H (2.5-4.0) gm/dl Albumin/Globulin Ratio 0.6 L (0.9-2) TSH 3.930 (0.300-4.500) uIu/ml Urine Color Urine Appearance (Clear) Urine pH (4.5-7.5) Ur Specific [place] (1.000-1.030) Urine Protein (Negative) Urine Glucose (UA) (Negative) Urine Ketones (Negative) Urine Blood (Negative) Urine Nitrite (Negative) Urine Bilirubin (Negative) Urine Urobilinogen (Negative) Ur Leukocyte Esterase (Negative) Urine WBC (Auto) (0-5) /hpf Urine RBC (Auto) (0-4) /hpf U Hyaline Cast (Auto) (0-5) /lpf U Epithel Cells (Auto) (0-5) /lpf Urine Bacteria (Auto) (Negative) Urine Yeast (None Prsent) 09/27/18 09/27/18 Range/Units 12:12 Unknown WBC (4.8-10.8) K/uL RBC (4.7-6.1) M/uL Hgb (14.0-18.0) g/dL Hct (42-52) % MCV (80-100) fL MCH (25-34) pg MCHC (32-36) g/dL RDW Std Deviation (36.4-46.3) fL RDW Coeff of Norbert (11.5-14.5) % Plt Count (130-400) K/uL MPV (7.4-10.4) fL Immature Gran % (Auto) % Neut % (Auto) % Lymph % (Auto) % [place] % (Auto) % Eos % (Auto) % Baso % (Auto) % Immature Gran # (Auto) (0.00-0.02) K/uL Neut # (Auto) (1.4-6.5) K/uL Lymph # (Auto) (1.2-3.4) K/uL [place] # (Auto) (0.11-0.59) K/uL Eos # (Auto) (0-0.5) K/uL Baso # (Auto) (0-0.2) K/uL Ovalocytes Sodium (136-145) mmol/L Potassium (3.5-5.1) mmol/L Chloride (98-107) mmol/L Carbon Dioxide (21-32) mmol/L Anion Gap (3-11) BUN (7-18) mg/dl Creatinine (0.6-1.4) mg/dl Est Cr Clr Drug Dosing ml/min Est GFR ( Amer) Est GFR (Non-Af Amer) BUN/Creatinine Ratio (10-20) Glucose (70-99) mg/dl POC Lactic Acid Joe 1.09 (0.90-1.70) mmol/L Calcium (8.5-10.1) mg/dl Magnesium (1.8-2.4) mg/dl Total Bilirubin (0.2-1) mg/dl AST (15-37) U/L ALT (12-78) U/L Alkaline Phosphatase (45-117) U/L Ammonia (11-32) umol/L Troponin I (0-0.045) ng/ml Total Protein (6.4-8.2) gm/dl Albumin (3.4-5.0) gm/dl Globulin (2.5-4.0) gm/dl Albumin/Globulin Ratio (0.9-2) TSH (0.300-4.500) uIu/ml Urine Color Yellow Urine Appearance Turbid H (Clear) Urine pH 6.0 (4.5-7.5) Ur Specific [place] 1.012 (1.000-1.030) Urine Protein Negative (Negative) Urine Glucose (UA) Negative (Negative) Urine Ketones Negative (Negative) Urine Blood 2+ H (Negative) Urine Nitrite Negative (Negative) Urine Bilirubin Negative (Negative) Urine Urobilinogen Negative (Negative) Ur Leukocyte Esterase 3+ H (Negative) Urine WBC (Auto) >30 H (0-5) /hpf Urine RBC (Auto) 10-30 H (0-4) /hpf U Hyaline Cast (Auto) 0 (0-5) /lpf U Epithel Cells (Auto) 20-30 H (0-5) /lpf Urine Bacteria (Auto) Negative (Negative) Urine Yeast Budding w/ Hyphae H (None Prsent) Administered Medications Hydromorphone HCl (Dilaudid) 0.5 mg IV Q15M PRN PRN Reason: Pain Stop: 10/11/18 12:07 Last Admin: 09/27/18 13:18 Dose: 0.5 mg Documented by: [id number] Discontinued Medications Piperacillin Sod/Tazobactam Sod (Zosyn) 4.5 gm in 120 mls @ 240 mls/hr IV NOW ONE Stop: 09/27/18 14:40 Last Infusion: 09/27/18 15:17 Dose: 0 mls/hr Documented by: [id number] Admin: 09/27/18 14:38 Dose: 240 mls/hr Documented by: [id number] Imaging Data Radiologist's Impression: Radiology results as stated below per my review and the radiologist's interpretation: CT SCAN OF THE ABDOMEN AND PELVIS WITHOUT CONTRAST CLINICAL HISTORY: altered mental status, diffuse abd tenderness COMPARISON STUDY: September 03, 2018 TECHNIQUE: CT scan of the abdomen and pelvis was performed from the lung bases to the proximal femurs. Images are reviewed in the axial, sagittal, and coronal planes. IV contrast was not administered for this examination. A dose lowering technique was utilized adhering to the principles of ALARA. CT DOSE: 1419.55 mGy.cm FINDINGS: Lower chest: There is bilateral gynecomastia. There are small bilateral pleural effusions. Liver: The unenhanced liver is normal in size, contour, and attenuation. There is no intrahepatic biliary ductal dilatation. Gallbladder: Unremarkable. Spleen: Normal in size and attenuation. Pancreas: Unremarkable. Adrenal glands: Unremarkable. Kidneys: There is a horseshoe kidney. No renal ureteral or bladder calculi are visualized. Bowel: There are no transition zones indicate bowel obstruction. There is mild fecal retention. There is no acute diverticulitis. There are no findings to indicate acute appendicitis. Peritoneum: There is no intraperitoneal free air or abdominal ascites. Vasculature: The abdominal aorta is normal in course and caliber. Adenopathy: None. Pelvic viscera: There is a joint Rojas catheter. There is mild bladder wall thickening. There is mild infiltration of the presacral fat. Skeletal structures: There are extensive postsurgical changes. There is been prior hardware removal. There are radiopaque pledgets within the posterior soft tissues. IMPRESSION: 1. No acute intra-abdominal findings on this noncontrast study 2. No evidence of bowel obstruction. No evidence of free air 3. Horseshoe kidney 4. Extensive postsurgical changes within the lumbar spine. 5. Mild fecal retention 6. Small pleural effusions Electronically signed by: Stevan Betancourt M.D. 09/27/2018 1:08 PM XR chest 1V portable CLINICAL HISTORY: weakness COMPARISON STUDY: 09/03/2018 FINDINGS: The heart is enlarged. There are postsurgical changes of midline sternotomy. There is a right-sided PICC catheter unchanged in position. There is a left subclavian pacer/defibrillator. There are postsurgical changes present within the cervical spine. There is no acute parenchymal consolidation. There are no pleural effusions. There is mild central vascular prominence without evidence of overt failure. There is is probable left shoulder calcific tendinitis. [ IMPRESSION: 1. Cardiomegaly and mild central vascular prominence without evidence of overt failure 2. No evidence of focal pulmonary consolidation Electronically signed by: Stevan Betancourt M.D. 09/27/2018 11:[address] head/brain wo con CLINICAL HISTORY: Acute change in mental status. COMPARISON STUDY: 09/03/2018 TECHNIQUE: Axial CT of the brain is performed from the vertex to the skull base. IV contrast was not administered for this examination. A dose lowering technique was utilized adhering to the principles of ALARA. CT DOSE: 537.48 mGy.cm FINDINGS: No intra or extra-axial mass lesions are visualized. There is no CT evidence of acute cortical infarction. There is no evidence of midline shift. There is no acute hemorrhage. No calvarial fractures are visualized. There are patchy white matter hypodensities likely on a small vessel basis. There is mild particular prominence, likely secondary to global volume loss There is a persistent right mastoid effusion. There is also soft tissue within the right middle ear cavity. IMPRESSION: 1. Persistent right mastoid effusion, and opacification of the right middle ear cavity 2. No acute intracranial findings Electronically signed by: Stevan Betancourt M.D. 09/27/2018 12:59 PM ECG Data Attestation: I personally reviewed and interpreted this ECG as follows: Indication: altered mental status Rate (beats per minute): 75 Rhythm: normal sinus Findings: + RBBB; no PAC, no PVC, no ST depression and no ST elevation Blood Pressure Blood Pressure Findings: Low blood pressure Discharge Plan Visit Data Chief Complaint: Altered Mental Status Stated Complaint: ams ED Provider: Vincenzo Blanco Discharge Problem: Altered mental status Patient Disposition: Being Evaluated by Hospitalist Discharge Instructions Interventions: ED Discharge Assessment Last Done: 09/27/18 16:59 The scribe's documentation has been prepared under my direction and personally reviewed by me in its entirety. I confirm that the note above accurately reflects all work, treatment, procedures, and medical decision making performed by me.
[2018-09-27] MEDS ORDERED: SODIUM CHLORIDE 0.9% 1000ML 1,000 ML IV SCH (17:28)
[2018-09-27] MEDS ORDERED: ONDANSETRON INJ 2 MG/ML 2 ML VIAL IV PRN (17:28)
[2018-09-27] MEDS: OXYCODONE HCL IR 5 MG TAB (IMMEDIATE RELEASE) PO PRN (18:21)
[2018-09-27] MEDS: BACLOFEN 10 MG TAB PO PRN (18:42)
[2018-09-27] MEDS: LINEZOLID 600 MG TAB PO SCH (18:42)
[2018-09-27] MEDS: HEPARIN SOD 5,000 UNIT/0.5 ML VIAL SQ SCH (20:24)
[2018-09-27] MEDS: TAMSULOSIN HCL 0.4 MG CAP PO SCH (20:24)
[2018-09-27] MEDS: INSULIN ASPART 100 UNITS/ML 3 ML PEN SC SCH (20:24)
[2018-09-27] MEDS: ATORVASTATIN 40 MG TAB PO SCH (20:24)
[2018-09-27] MEDS: OXYCODONE HCL 10 MG TABCR (OXYCONTIN) PO SCH (20:26)
[2018-09-27] MEDS: INSULIN DETEMIR FLEXPEN/FLEX TOUCH 100 UNITS/ML 3ML SQ SCH (21:08)
[2018-09-28] MEDS: OXYCODONE HCL IR 5 MG TAB (IMMEDIATE RELEASE) PO PRN (02:22)
[2018-09-28] MEDS: HEPARIN SOD 5,000 UNIT/0.5 ML VIAL SQ SCH ×3 (06:12→20:50)
[2018-09-28] MEDS: LINEZOLID 600 MG TAB PO SCH ×2 (06:16→20:20)
[2018-09-28 06:39] LABS: Basophils # (auto) 0.02 K/uL (0-0.2); Basophils % (auto) 0.3 %; Eosinophils # (auto) 0.22 K/uL (0-0.5); Eosinophils % (auto) 3.3 %; Hematocrit (blood only) 24.4 % (42-52); Hemoglobin 7.7 g/dL (14.0-18.0); Immature Granulocytes # (auto) 0.08 K/uL (0.00-0.02); Immature Granulocytes % (auto) 1.2 %; Lymphocytes # (auto) 0.95 K/uL (1.2-3.4); Lymphocytes % (auto) 14.4 %; Mean Corpuscular Hgb Conc 31.6 g/dL (32-36); Mean Corpuscular Volume 83.8 fL (80-100); Mean Platelet Volume 8.8 fL (7.4-10.4); Monocytes # (auto) 0.51 K/uL (0.11-0.59); Monocytes % (auto) 7.7 %; Neutrophils # (auto) 4.83 K/uL (1.4-6.5); Neutrophils % (auto) 73.1 %; Platelet Count 240 K/uL (130-400); RDW Coefficient of Variation 16.1 % (11.5-14.5); RDW Standard Deviation 49.2 fL (36.4-46.3); Red Blood Count 2.91 M/uL (4.7-6.1); White Blood Count 6.61 K/uL (4.8-10.8)
[2018-09-28 07:13] LABS: Ovalocytes 1+
[2018-09-28 07:21] LABS: BUN Creatinine Ratio 19.4 (10-20); Calcium 8.5 mg/dl (8.5-10.1); Creatinine Clr Calc Pharmacy 34.4 ml/min; Est GFR (African American) 31.6; Est GFR (Non-African American) 27.3; Potassium 4.5 mmol/L (3.5-5.1)
[2018-09-28] MEDS: OXYCODONE HCL 10 MG TABCR (OXYCONTIN) PO SCH ×2 (08:04→20:23)
[2018-09-28] MEDS: INSULIN ASPART 100 UNITS/ML 3 ML PEN SC SCH ×4 (08:04→20:49)
[2018-09-28] MEDS: CHOLECALCIFEROL 1,000 UNITS TAB PO SCH (08:05)
[2018-09-28] MEDS: CYANOCOBALAMIN 500 MCG TABLET (VITAMIN B-12) PO SCH (08:05)
[2018-09-28] MEDS: MAGNESIUM OXIDE 400 MG TAB PO SCH (08:05)
[2018-09-28] MEDS: CLOPIDOGREL BISULFATE 75 MG TAB PO SCH (08:05)
[2018-09-28] MEDS: ASPIRIN 81 MG ECTAB PO SCH (08:05)
[2018-09-28] MEDS: FINASTERIDE 5 MG TAB PO SCH (08:05)
[2018-09-28] MEDS: METOPROLOL SUCC 50MG EXT REL TAB PO SCH (08:06)
[2018-09-28] MEDS: INSULIN DETEMIR FLEXPEN/FLEX TOUCH 100 UNITS/ML 3ML SQ SCH ×2 (08:17→20:49)
--- NOTE | 2018-09-28 11:35 | Nephrology Consultation ---
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 No obstruction reported -- Urinalysis with blood due to chronic indwelling luna catheter and funguria. No protein on urinalysis -- Patient remains nonoliguric. Creatinine is trending down off Vancomycin therapy -- Will provide gentle hydration -- Monitor serial PRP (2) Chronic indwelling Luna catheter: -- Will order change out of Luna catheter due to funguria (3) Delirium: -- Oriented to self and place this am -- On narcotic analgesics due to recent back surgery History of Present Illness Reason for Consultation: PAULA Attending Physician: Juarez Sanchez MD, PhD, [facility] History of Present Illness Mr. Cooper is a 67 year old white male who is seen at the request of Dr. Sanchez for evaluation of PAULA. Medical records in the EMR were reviewed today and are summarized as follows: Mr. Cooper has a long history of lumbar spinal stenosis that was treated with decompression and fusion. This was complicated w/ Ser ratia infection 08/11/18 and was treated with IV Ertapenem. He returned to the hospital due to refractory pain and signs of infection. He was taken to the OR 09/10/18 for exploration and was found to have paraspinal abscess. Fluid culture grew coag negative staph. All hardware was removed. He was treated with Daptomycin IV and then changed to Vancomycin IV and discharged to [facility] 09/16/18. His luna catheter remained in place due to urinary retention. Recent laboratory studies revealed that creatinine has risen from 0.8 to 2.8. Urine culture is positive for yeast. Mr. Cooper was noted to be more lethargic. He is now readmitted for PAULA, funguria and ongoing medical management. PMH: ASCVD, h/o sudden cardiac , ANTONIO, AODM, h/o HEALTH ADMINISTRATOR Lyme, BPH s/p TURP Allergies Allergy/AdvReac Type Severity Reaction Status Date / Time No Known Allergies Allergy Verified 08/01/18 15:19 Home Medications Home Medications Medication Instructions Recorded Confirmed Type magnesium oxide 400 mg PO QAM #0 tab 11/27/11 09/27/18 History losartan 50 mg PO QAM #0 tab 05/26/12 09/27/18 History omega 9-[id number]-ebq-fish oil [Fish Oil] 1 cap PO QAM #0 cap 05/26/12 09/27/18 History atorvastatin 40 mg PO HS #0 tab 11/12/14 09/27/18 History coenzyme Q10 100 mg PO QAM #0 11/12/14 09/27/18 History finasteride [Proscar] 5 mg PO QAM #0 11/12/14 09/27/18 History insulin aspart U-100 10 unit SC TIDM #0 03/07/16 09/27/18 History metoprolol succinate [Toprol XL] 100 mg PO QAM #0 03/07/16 09/27/18 History metformin 1,000 mg PO BID 05/16/18 09/27/18 History vitamin B complex 1 tab PO QAM 07/22/18 09/27/18 History aspirin [Ecotrin Low Strength] 81 mg PO QAM #30 tab 08/14/18 09/27/18 Rx clopidogrel 75 mg PO QAM #30 tab 08/14/18 09/27/18 Rx furosemide 40 mg PO DAILY #30 tab 08/14/18 09/27/18 Rx sennosides-docusate sodium [Senna 2 tab PO BID #3 tab 08/14/18 09/27/18 Rx with Docusate Sodium] tamsulosin 0.4 mg PO HS #3 cap 08/14/18 09/27/18 Rx Glucagon Emergency Kit (human) 1 dose IM DIRECTED PRN 08/26/18 09/27/18 History Insta-Glucose 1 dose PO 08/26/18 History acetaminophen 650 mg PO Q6H PRN 08/26/18 09/27/18 History bisacodyl [Dulcolax (bisacodyl)] 10 mg VA DAILY PRN 08/26/18 09/27/18 History cholecalciferol (vitamin D3) 2,000 units PO DAILY 08/26/18 09/27/18 History [Vitamin D3] cyanocobalamin (vitamin B-12) 1,000 mcg PO DAILY 08/26/18 09/27/18 History [Vitamin B-12] magnesium hydroxide [Milk of 30 ml PO DAILY PRN 08/26/18 09/27/18 History Magnesia] sodium phosphates [Fleet Pediatric] 118 ml VA DAILY PRN 08/26/18 09/27/18 History insulin detemir U-100 7 unit SUBCUT BID 09/03/18 09/27/18 History lidocaine 1 patch TOP DAILY #1 ea 09/16/18 09/27/18 Rx oxycodone 5 mg PO Q6 PRN #15 tab 09/16/18 09/27/18 Rx potassium chloride [Klor-Con M20] 40 meq PO DAILY #30 tab 09/16/18 09/27/18 Rx insulin lispro [Humalog U-100 1 sliding scale dose SUBCUT 09/27/18 09/27/18 History Insulin] USEASDIRECTD linezolid [Zyvox] 600 mg PO Q12H 09/27/18 09/27/18 History multivitamin 1 tab PO QAM 09/27/18 09/27/18 History ondansetron HCl 4 mg PO Q6 PRN 09/27/18 09/27/18 History oxycodone [OxyContin] 10 mg PO Q12H 09/27/18 09/27/18 History Patient History Medical History Difficult airway for intubation HEALTH ADMINISTRATOR 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 Admitted [facility] 10/18/11 for onset of incapacitating cervical myelopathy. Spinal tap showed HEALTH ADMINISTRATOR Lyme disease, MRI showed severe spinal cord compression at C3-4 with myelomalacia and intramedullary mass. Pt had c-spine surgery, subsequent prolonged hospital admission, complicated post-op course. Difficult intubation Sudden cardiac Post-op 2011 [facility]. Now has ICD. Sleep apnea PT NOT CURRENTLY CPAP 2/2 recurrent sinus infections. WILL SEE SLEEP MEDICINE/DR. ARCHULETA LATE 2017 Diabetes mellitus, type 2 IDDM. Degenerative disc disease Chronic back pain CHRONIC PAIN IN LEFT LEG Ischemic cardiomyopathy EF WNL 11/2017 CAD (coronary artery disease) s/p triple CABG 2003 Full dentures (Acute) Obese (Acute) Heart disease (Acute) HTN (hypertension) (Acute) High cholesterol (Acute) Coagulase-negative staphylococcal infection Paraspinal abscess Surgical History History of esophagogastroduodenoscopy (EGD) History of colonoscopy History of cardiac cath 2011 AT [facility] - UNSURE IF HE HAS STENTS. History of tracheostomy Hx of transurethral resection of prostate History of cataract extraction with lens replacement Hx of tonsillectomy (Acute) H/O cervical spine surgery (Acute) ACDI C3-4, C7 corpectomy, removal of C7 intramedullary mass. 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 Beliefs That Will Affect Care: None marital status: Current Living Situation: Rehab Current Living Situation Comment: temporarily living at [facility] Other Information That Helps Us Care for You: No Feels Safe at Home: Yes Smoking Status: Never smoker Tobacco Type: smokeless tobacco Do You Dip or Chew Tobacco: Yes (last chew was in july) Second Hand Exposure: No Tobacco Cessation Education Requested by Patient: No Hx Alcohol Use: No Hx Substance Use: No Review of Systems Respiratory: no dyspnea Cardiovascular: no chest pain Gastrointestinal: no abdominal pain Physical Exam Constitutional: + ill appearing Eyes: PERRL Neck: trachea midline, no thyromegaly Respiratory: normal respiratory effort, lungs clear to auscultation no respiratory distress Cardiovascular: Rate/Rhythm: regular rate and regular rhythm Heart Sounds: no murmur Extremities: + edema (trace) Gastrointestinal (Abdomen): normal bowel sounds, soft, nontender, no hepatosplenomegaly Results & Data Vital Signs (Past 12 Hours) Vital Signs Temp Pulse Resp BP Pulse Ox 09/28/18 11:32 36.4 C L 67 12 126/61 97 09/28/18 07:39 36.7 C 81 16 124/52 L 94 09/28/18 03:31 36.7 C 69 18 124/70 91 Laboratory Results Laboratory Tests 09/27/18 09/28/18 09/28/18 Unknown 06:11 06:11 WBC 6.61 Hgb 7.7 L Hct 24.4 L Plt Count 240 Sodium 132 L Potassium 4.5 Chloride 102 Carbon Dioxide 25 BUN 46 H Creatinine 2.40 H Glucose 83 Urine Color Yellow Urine Appearance Turbid H Urine pH 6.0 Ur Specific Busby 1.012 Urine Protein Negative Urine Glucose (UA) Negative Urine Blood 2+ H Urine Nitrite Negative Urine WBC (Auto) >30 H Urine RBC (Auto) 10-30 H U Epithel Cells (Auto) 20-30 H Urine Bacteria (Auto) Negative Urine Yeast Budding w/ Hyphae H Diagnostic Findings Abdominal CT 09/27/18: 1. No acute intra-abdominal findings on this noncontrast study 2. No evidence of bowel obstruction. No evidence of free air 3. Horseshoe kidney 4. Extensive postsurgical changes within the lumbar spine. 5. Mild fecal retention 6. Small pleural effusions
--- NOTE | 2018-09-28 13:08 | Hospitalist Progress Note ---
Date of Service September 28, 2018 Assessment & Plan (1) Altered mental status: likely from multiple reasons for altered mental status metabolic encephalopathy due to PAULA on CKD, chronic pain, chronic infection, and on narcotics cont treat PAULA which has been stable Continue regimen of narcotics continue on Zyvox for coag negative staph for that he was on prior to this admission I did not get report of any hallucination OOB, PT. OT (2) Acute kidney injury: PAULA on cKD Cr today is 2.4, was up to 2.5 yesterday , was 2.8 on 09/22 was treated with IV fluids at [facility], little improvement in Cr making urine via luna, so this is non oliguric thought that PAULA was due to Vanco, has since been stopped f/u Dr. Mathews for recommendations c ontinue NSS at 75cc/hr, oral intake has been suboptimal hold nephrotoxins and dose medications accordingly (3) Coagulase-negative staphylococcal infection: continue on Zyvox was on Vanco but stopped due to PAULA f/u Dr. Ndiaye for further instructions (4) Post-operative pain: likely from sharp spasm like pains discussed with that we could try very low dose muscle relaxer but could worsen lethargy cont Baclofen and OxyContin and Oxycodone will f/u consult from Pain Management numerous providers have been involved in pain management, his regimen has been changed several times was on Fentanyl patch last admission upset that pain is still difficult to control discussed that zero pain is not realistic with multiple surgeries and deconditioning (5) Paraspinal abscess: see above for coag negative infection had surgery on 09/10/18 (6) Chronic systolic heart failure: patient examines euvolemic cont hold Lasix for time being given his PAULA monitor closely for volume overload (7) Urinary retention: continue luna, has been in for over 30 days (8) Acute anemia: Hb has been dropping very slowly today is 7.7 , from 7.7 yesterday transfuse if < 7 (9) Ischemic cardiomyopathy: (10) ICD (implantable cardioverter-defibrillator) in place: (11) Diabetes mellitus, type 2: diabetic diet Novolog Subjective Nursing staff report patient was screaming when moving his lower extremities because of the pain, however when I examined him, he was having no obvious pain, awake alert and orientated, to his name, birthday, however not the place, he looks pale, and tired, he was conversational and smile, no other complaint Review of Systems Review of Systems: Review of Systems Constitutional: pos weakness, or fatigue Respiratory: no cough, sputum, wheezing, or dyspnea on exertion Cardiac: No chest pain, No orthopnea, No PND, Abdomen: No pain, No nausea, No vomiting, Musculoskeletal: see above No swelling, No calf pain, : No dysuria, No urinary frequency, Neurologic: No paralysis, No weakness, No numbness/tingling, Psychiatric: No depression symptoms, No anhedonism, No anxiety, Heme: looks pale, No abnormal bleeding/bruising, No clotting problems, Skin: No rash, No itch, No new/changing skin lesions, Physical Exam Physical Exam: General Appearance: pale, tired, WD/WN, no apparent distress, Eyes: normal inspection, PERRL, EOMI, sclerae normal ENT: normal ENT inspection, hearing grossly normal, pharynx normal Neck: supple, no adenopathy, thyroid normal, no JVD, no carotid bruits, trachea midline Respiratory/Chest: chest non-tender, normal breath sounds, no respiratory distress, no accessory muscle use, breath sounds, rales, wheezing Cardiovascular: regular rate, rhythm, no JVD, no murmur Abdomen: normal bowel sounds, non tender, soft, no organomegaly, luna in place Extremities: 1+ edema, no calf tenderness, normal capillary refill, pelvis stable, joint has no limited range of motion, capillary refill is normal, no cyanosis clubbing Neurologic/Psychiatric: spring former hand II-XII nml as tested, Skin: pale , warm/dry, no rash Lymphatic: no adenopathy Results & Data Vital Signs (Past 12 Hours) Vital Signs Temp Pulse Resp BP Pulse Ox 09/28/18 11:32 36.4 C L 67 12 126/61 97 09/28/18 07:39 36.7 C 81 16 124/52 L 94 09/28/18 03:31 36.7 C 69 18 124/70 91 Laboratory Results - last 24 hr 09/27/18 09/27/18 09/27/18 12:12 18:50 20:21 WBC RBC Hgb Hct MCV MCH MCHC RDW Std Deviation RDW Coeff of Norbert Plt Count MPV Immature Gran % (Auto) Neut % (Auto) Lymph % (Auto) [place] % (Auto) Eos % (Auto) Baso % (Auto) Immature Gran # (Auto) Neut # (Auto) Lymph # (Auto) [place] # (Auto) Eos # (Auto) Baso # (Auto) Ovalocytes Sodium Potassium Chloride Carbon Dioxide Anion Gap BUN Creatinine Est Cr Clr Drug Dosing Est GFR ( Amer) Est GFR (Non-Af Amer) BUN/Creatinine Ratio Glucose POC Glucose 94 86 POC Lactic Acid Joe 1.09 Calcium Nasal Screen MRSA (PCR) Hepatitis C Ab Screen Blood Type Antibody Screen Antibody Identification Crossmatch 09/27/18 09/28/18 09/28/18 Unknown 02:10 06:11 WBC RBC Hgb Hct MCV MCH MCHC RDW Std Deviation RDW Coeff of Norbert Plt Count MPV Immature Gran % (Auto) Neut % (Auto) Lymph % (Auto) [place] % (Auto) Eos % (Auto) Baso % (Auto) Immature Gran # (Auto) Neut # (Auto) Lymph # (Auto) [place] # (Auto) Eos # (Auto) Baso # (Auto) Ovalocytes Sodium Potassium Chloride Carbon Dioxide Anion Gap BUN Creatinine Est Cr Clr Drug Dosing Est GFR ( Amer) Est GFR (Non-Af Amer) BUN/Creatinine Ratio Glucose POC Glucose 71 POC Lactic Acid Joe Calcium Nasal Screen MRSA (PCR) Negative Hepatitis C Ab Screen Neg Blood Type Antibody Screen Antibody Identification Crossmatch 09/28/18 09/28/18 09/28/18 06:11 06:11 07:15 WBC 6.61 RBC 2.91 L Hgb 7.7 L Hct 24.4 L MCV 83.8 MCH 26.5 MCHC 31.6 L RDW Std Deviation 49.2 H RDW Coeff of Norbert 16.1 H Plt Count 240 MPV 8.8 Immature Gran % (Auto) 1.2 Neut % (Auto) 73.1 Lymph % (Auto) 14.4 [place] % (Auto) 7.7 Eos % (Auto) 3.3 Baso % (Auto) 0.3 Immature Gran # (Auto) 0.08 H Neut # (Auto) 4.83 Lymph # (Auto) 0.95 L [place] # (Auto) 0.51 Eos # (Auto) 0.22 Baso # (Auto) 0.02 Ovalocytes 1+ Sodium 132 L Potassium 4.5 Chloride 102 Carbon Dioxide 25 Anion Gap 5.0 BUN 46 H Creatinine 2.40 H Est Cr Clr Drug Dosing 34.4 Est GFR ( Amer) 31.6 Est GFR (Non-Af Amer) 27.3 BUN/Creatinine Ratio 19.4 Glucose 83 POC Glucose 89 POC Lactic Acid Joe Calcium 8.5 Nasal Screen MRSA (PCR) Hepatitis C Ab Screen Blood Type Antibody Screen Antibody Identification Crossmatch 09/28/18 09/28/18 10:51 10:55 WBC RBC Hgb Hct MCV MCH MCHC RDW Std Deviation RDW Coeff of Norbert Plt Count MPV Immature Gran % (Auto) Neut % (Auto) Lymph % (Auto) [place] % (Auto) Eos % (Auto) Baso % (Auto) Immature Gran # (Auto) Neut # (Auto) Lymph # (Auto) [place] # (Auto) Eos # (Auto) Baso # (Auto) Ovalocytes Sodium Potassium Chloride Carbon Dioxide Anion Gap BUN Creatinine Est Cr Clr Drug Dosing Est GFR ( Amer) Est GFR (Non-Af Amer) BUN/Creatinine Ratio Glucose POC Glucose 122 H POC Lactic Acid Joe Calcium Nasal Screen MRSA (PCR) Hepatitis C Ab Screen Blood Type A Positive Antibody Screen POSITIVE A Antibody Identification Anti-E Crossmatch See Detail Microbiology 09/27/18 Unknown Urine,Straight Cath Urine Culture - Preliminary Yeast
[2018-09-28] MEDS: SODIUM CHLORIDE 0.9% 1000ML 1,000 ML IV SCH (13:31)
[2018-09-28] MEDS: ATORVASTATIN 40 MG TAB PO SCH (20:21)
[2018-09-28] MEDS: TAMSULOSIN HCL 0.4 MG CAP PO SCH (20:21)
[2018-09-29] MEDS: OXYCODONE HCL IR 5 MG TAB (IMMEDIATE RELEASE) PO PRN (00:56)
[2018-09-29] MEDS: SODIUM CHLORIDE 0.9% 1000ML 1,000 ML IV SCH (01:32)
[2018-09-29 06:00] LABS: Hemoglobin 8.4 g/dL (14.0-18.0); Mean Corpuscular Hgb Conc 31.1 g/dL (32-36); Mean Corpuscular Volume 84.9 fL (80-100); Mean Platelet Volume 8.5 fL (7.4-10.4); Platelet Count 208 K/uL (130-400); RDW Coefficient of Variation 16.3 % (11.5-14.5); RDW Standard Deviation 50.7 fL (36.4-46.3); Red Blood Count 3.18 M/uL (4.7-6.1); White Blood Count 7.46 K/uL (4.8-10.8)
[2018-09-29 06:26] LABS: BUN Creatinine Ratio 17.5 (10-20); Calcium 8.3 mg/dl (8.5-10.1); Creatinine Clr Calc Pharmacy 37.1 ml/min; Est GFR (African American) 35.1; Est GFR (Non-African American) 30.3; Magnesium 2.1 mg/dl (1.8-2.4); Potassium 4.3 mmol/L (3.5-5.1)
[2018-09-29] MEDS: HEPARIN SOD 5,000 UNIT/0.5 ML VIAL SQ SCH ×3 (06:32→21:35)
[2018-09-29] MEDS: LINEZOLID 600 MG TAB PO SCH ×2 (06:33→19:57)
[2018-09-29] MEDS: ASPIRIN 81 MG ECTAB PO SCH (08:50)
[2018-09-29] MEDS: METOPROLOL SUCC 50MG EXT REL TAB PO SCH (08:50)
[2018-09-29] MEDS: CHOLECALCIFEROL 1,000 UNITS TAB PO SCH (08:50)
[2018-09-29] MEDS: CYANOCOBALAMIN 500 MCG TABLET (VITAMIN B-12) PO SCH (08:50)
[2018-09-29] MEDS: CLOPIDOGREL BISULFATE 75 MG TAB PO SCH (08:51)
[2018-09-29] MEDS: MAGNESIUM OXIDE 400 MG TAB PO SCH (08:51)
[2018-09-29] MEDS: INSULIN DETEMIR FLEXPEN/FLEX TOUCH 100 UNITS/ML 3ML SQ SCH ×2 (08:51→21:36)
[2018-09-29] MEDS: FINASTERIDE 5 MG TAB PO SCH (08:51)
[2018-09-29] MEDS: INSULIN ASPART 100 UNITS/ML 3 ML PEN SC SCH ×4 (08:52→21:33)
--- NOTE | 2018-09-29 10:07 | Nephrology Progress Note ---
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 No obstruction reported -- Urinalysis with blood due to chronic indwelling luna catheter and funguria. No protein on urinalysis -- Patient remains nonoliguric. Creatinine is trending down off Vancomycin therapy -- No volume overload. Will continue gentle hydration -- Monitor serial PRP (2) Chronic indwelling Luna catheter: -- Luna catheter changed out due to funguria yesterday -- Will repeat urinalysis today (3) Delirium: -- Oriented to self and place this am -- On narcotic analgesics due to recent back surgery Subjective Mr. Cooper was seen & examined in the PCU this morning. He was alert and able to follow one step commands. He remains oriented to self only. Luna catheter was changed out yesterday due to funguria. Review of Systems Constitutional: no fever Respiratory: no dyspnea Cardiovascular: no chest pain at rest Physical Exam Constitutional: + ill appearing Eyes: PERRL Neck: trachea midline, no thyromegaly Respiratory: normal respiratory effort, lungs clear to auscultation no respiratory distress Cardiovascular: Rate/Rhythm: regular rate and regular rhythm Heart Sounds: no murmur Extremities: no edema (trace) Gastrointestinal (Abdomen): normal bowel sounds, soft, nontender, no hepatosplenomegaly Results & Data Vital Signs (Past 12 Hours) Vital Signs Temp Pulse Resp BP BP Pulse Ox 09/29/18 07:41 36.6 C 74 16 153/69 H 99 09/29/18 02:55 36.5 C 80 22 125/68 97 09/28/18 23:30 36.7 C 70 16 111/54 L 98 Laboratory Results Laboratory Tests 09/29/18 09/29/18 05:41 05:41 WBC 7.46 Hgb 8.4 L Hct 27.0 L Plt Count 208 Sodium 134 L Potassium 4.3 Chloride 103 Carbon Dioxide 26 BUN 38 H Creatinine 2.20 H Glucose 87
--- NOTE | 2018-09-29 10:36 | Pain Management Consultation ---
Date of Consultation September 29, 2018 Assessment & Plan (1) Altered mental status: 1. The patient is not a candidate for interventional pain management secondary to ongoing infection at this time. 2. Recommend conversion from OxyContin to fentanyl 12 mcg patch every 72 hours secondary to acute kidney injury and ongoing complaints of pain. Continue current breakthrough oxycodone at this time. 3. Consider utilization of SNRI versus tricyclic antidepressants in the future to further augment descending pain regulation though will hold on significant medication changes at this time secondary to mental status. 4. Consider wound clinic consultation for evaluation of lumbar spine incision. 5. Antibiotic coverage per infectious disease. 6. Thank you for this consultation. (2) Coagulase-negative staphylococcal infection: (3) Serratia septicemia: (4) Paraspinal abscess: (5) History of lumbar spinal fusion: (6) Acute kidney injury: (7) Chronic indwelling Rojas catheter: History of Present Illness Attending Physician: Juarez Sanchez MD, PhD, [facility] History of Present Illness 67-year-old male with complicated medical history most recently significant for a lumbar fusion L3-4 with decompression medial foraminotomies L2-3 L3-4 and titanium cage placement 07/25/2018. Subsequently on 08/11/2018 he underwent an I&D with placement of antibiotic beads in his lumbar spine. He underwent a I&D with removal of L3-4 posterior spinal hardware with placement of antibiotic beads on 09/10/2018. He has had difficulty with weakness and delirium as well as Serratia septicemia, paraspinal abscess, acute kidney injury, and fungal urinary tract infection due to long-standing indwelling Rojas catheter over the last 2 months. Pain management was consulted for assistance in medical management of pain. He has been on IV hydromorphone, fentanyl patches, the oxycontin with breakthrough oxycodone with varying degrees of success over the last 2 months. He was admitted 09/27/2018 with intractable pain having presented from [facility]. Per nursing report his pain has been under adequate control over the last 12 hours but patient has predominantly over resided within his hospital bed and continues to have confusion with orientation only to person. The patient reports that his pain is 100% axial over his lumbosacral spine without radiation to distal extremities. He reports generalized weakness and fatigue at this time. When asked about his level of activity prior to July and his lumbar spine surgery he told me that he was working full-time. However, in the next sentence he tells me that the year is 1991. He characterizes pain as cramping and aching. Currently rated at 2-3 out of 10. He denies any bowel incontinence, footdrop, other constitutional complaints at this time. Rojas catheter is in place. Pain Assessment Full Body Front + Back: 1. [facility] Combined Pain Scale: 2-Minimal - Able to engage in pleasures of life with some interference Allergies Allergy/AdvReac Type Severity Reaction Status Date / Time No Known Allergies Allergy Verified 08/01/18 15:19 Home Medications Home Medications Medication Instructions Recorded Confirmed Type magnesium oxide 400 mg PO QAM #0 tab 11/27/11 09/27/18 History losartan 50 mg PO QAM #0 tab 05/26/12 09/27/18 History omega 4-uki-tzo-fish oil [Fish Oil] 1 cap PO QAM #0 cap 05/26/12 09/27/18 History atorvastatin 40 mg PO HS #0 tab 11/12/14 09/27/18 History coenzyme Q10 100 mg PO QAM #0 11/12/14 09/27/18 History finasteride [Proscar] 5 mg PO QAM #0 11/12/14 09/27/18 History insulin aspart U-100 10 unit SC TIDM #0 03/07/16 09/27/18 History metoprolol succinate [Toprol XL] 100 mg PO QAM #0 03/07/16 09/27/18 History metformin 1,000 mg PO BID 05/16/18 09/27/18 History vitamin B complex 1 tab PO QAM 07/22/18 09/27/18 History aspirin [Ecotrin Low Strength] 81 mg PO QAM #30 tab 08/14/18 09/27/18 Rx clopidogrel 75 mg PO QAM #30 tab 08/14/18 09/27/18 Rx furosemide 40 mg PO DAILY #30 tab 08/14/18 09/27/18 Rx sennosides-docusate sodium [Senna 2 tab PO BID #3 tab 08/14/18 09/27/18 Rx with Docusate Sodium] tamsulosin 0.4 mg PO HS #3 cap 08/14/18 09/27/18 Rx Glucagon Emergency Kit (human) 1 dose IM DIRECTED PRN 08/26/18 09/27/18 History Insta-Glucose 1 dose PO 08/26/18 History acetaminophen 650 mg PO Q6H PRN 08/26/18 09/27/18 History bisacodyl [Dulcolax (bisacodyl)] 10 mg CO DAILY PRN 08/26/18 09/27/18 History cholecalciferol (vitamin D3) 2,000 units PO DAILY 08/26/18 09/27/18 History [Vitamin D3] cyanocobalamin (vitamin B-12) 1,000 mcg PO DAILY 08/26/18 09/27/18 History [Vitamin B-12] magnesium hydroxide [Milk of 30 ml PO DAILY PRN 08/26/18 09/27/18 History Magnesia] sodium phosphates [Fleet Pediatric] 118 ml CO DAILY PRN 08/26/18 09/27/18 History insulin detemir U-100 7 unit SUBCUT BID 09/03/18 09/27/18 History lidocaine 1 patch TOP DAILY #1 ea 09/16/18 09/27/18 Rx oxycodone 5 mg PO Q6 PRN #15 tab 09/16/18 09/27/18 Rx potassium chloride [Klor-Con M20] 40 meq PO DAILY #30 tab 09/16/18 09/27/18 Rx insulin lispro [Humalog U-100 1 sliding scale dose SUBCUT 09/27/18 09/27/18 History Insulin] USEASDIRECTD linezolid [Zyvox] 600 mg PO Q12H 09/27/18 09/27/18 History multivitamin 1 tab PO QAM 09/27/18 09/27/18 History ondansetron HCl 4 mg PO Q6 PRN 09/27/18 09/27/18 History oxycodone [OxyContin] 10 mg PO Q12H 09/27/18 09/27/18 History Patient History Medical History 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 Admitted [facility] 10/18/11 for onset of incapacitating cervical myelopathy. 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 Pt had c-spine surgery, subsequent prolonged hospital admission, complicated post-op course. Difficult intubation Sudden cardiac Post-op 2011 [facility]. Now has ICD. Sleep apnea PT NOT CURRENTLY CPAP 2/2 recurrent sinus infections. WILL SEE SLEEP MEDICINE/DR. ARCHULETA LATE 2017 Diabetes mellitus, type 2 IDDM. Degenerative disc disease Chronic back pain CHRONIC PAIN IN LEFT LEG Ischemic cardiomyopathy EF WNL 11/2017 CAD (coronary artery disease) s/p triple CABG 2002 Full dentures (Acute) Obese (Acute) Heart disease (Acute) HTN (hypertension) (Acute) High cholesterol (Acute) Coagulase-negative staphylococcal infection Paraspinal abscess Surgical History History of esophagogastroduodenoscopy (EGD) History of colonoscopy History of cardiac cath 2011 AT [facility] - UNSURE IF HE HAS STENTS. History of tracheostomy Hx of transurethral resection of prostate History of cataract extraction with lens replacement Hx of tonsillectomy (Acute) H/O cervical spine surgery (Acute) ACDI C3-4, C7 corpectomy, removal of C7 intramedullary mass. 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 Required: No Beliefs That Will Affect Care: None marital status: Current Living Situation: Rehab Current Living Situation Comment: [facility] Other Information That Helps Us Care for You: No Feels Safe at Home: Yes Smoking Status: Never smoker Tobacco Type: smokeless tobacco Do You Dip or Chew Tobacco: Yes (last chew was in july) Second Hand Exposure: No Tobacco Cessation Education Requested by Patient: No Hx Alcohol Use: No Hx Substance Use: No Physical Exam Physical Exam: Constitutional: Well-developed, well-nourished, obese and significantly deconditioned Psych: Awake, alert, and oriented 1, moderately cooperative on exam Eyes: Pupils are equally round and reactive to light with normal size pupils, eyelids appear normal Ear, nose, mouth, and throat: Moist nasal and oral membranes, lips and tongues appear normal, no external ear abnormalities are noted Neck: The trachea is midline without deviation and no thyromegaly is noted Respiratory: Normal respiratory effort without distress, no audible wheezes or rhonchi CV: Normal S1 and S2 Chest: Deferred GI/abdomen: Non-tender without guarding, no masses noted, obese Musculoskeletal: Head is normocephalic and atraumatic, gait was not observed Cervical: Lordotic curve: Normal Range of motion is slightly decreased with extension, flexion, side-bending, rotation Strength: Strength is grossly equal bilaterally with 5 out of 5 strength in all planes Sensation of upper extremities: Intact bilaterally Thoracic: Kyphotic curve: Slightly flattened Range of motion is normal with extension, flexion, side-bending, rotation Tenderness: Nontender over the axial midline Myofascial spasm: No appreciable spasm. No discrete trigger points noted Lumbar: Lordotic curve: Complete loss of lumbar lordosis with approximately 1 inch superficial opening of his lumbar spine incision. Range of motion is decreased with extension, flexion, side-bending, rotation sec ondary to pain Tenderness: Moderately tender over the axial midline worsened with percussion Facet provocation: Difficult to access secondary to patient cooperation Straight leg raise: Negative bilaterally not worsened with Achilles stretch Step-off injuries: None Strength: Strength globally reduced in all davies partially secondary to patient cooperation however I would rate quadriceps and anterior tibialis on the left at 4 out of 5, hamstrings and plantar and dorsiflexion 4+ out of 5. I would rate right lower extremity at 4+ out of 5 in all davies Sensation of lower extremities: Intact bilaterally Deep tendon reflexes: Rated at 1+ in bilateral L4 and S1 Myofascial spasm: Minimal to mild appreciable spasm. No discrete trigger points noted Sacroiliac joints: Nontender bilaterally Pathologic reflexes noted: None Skin: No rashes, lesions, ulcers noted. Breakdown of lumbar incision as noted above. I do not appreciate any purulent drainage, and only minimal erythema surrounding incision. Neuro: No nystagmus noted, the tongue is midline, the patient is able to rotate their head bilaterally : Deferred Results Diagnostic Review CT: non enhanced and reports reviewed CT Findings: [place], [place] [phone] CT Scan Report Patient: NICHOLAS NGUYEN AAdmit Date: 09/27/18 MR#: [id number]: [address] Acct ID:[id number]: KATHERINE ASTUDILLO Date: 1950[facility] Zip: [place] [address] Age: 67Location: ED Sex: M Room/Bed: Att Phy: Diagnosis: ams Rena Phy: Philip BraxtonService Date: 09/27/18 Fam Phy: Interpreting Phy: Stevan Betancourt MD Admit Phy: Ordering Phy: Vincenzo Blanco MD cc: ~ CT head/brain wo con CLINICAL HISTORY: Acute change in mental status. COMPARISON STUDY: 09/03/2018 TECHNIQUE: Axial CT of the brain is performed from the vertex to the skull b ase. IV contrast was not administered for this examination. A dose lowering technique was utilized adhering to the principles of ALARA. CT DOSE: 537.48 mGy.cm FINDINGS: No intra or extra-axial mass lesions are visualized. There is no CT evidence of acute cortical infarction. There is no evidence of midline shift. There is no acute hemorrhage. No calvarial fractures are visualized. There are patchy white matter hypodensities likely on a small vessel basis. There is mild particular prominence, likely secondary to global volume loss There is a persistent right mastoid effusion. There is also soft tissue within the right middle ear cavity. IMPRESSION: 1. Persistent right mastoid effusion, and opacification of the right middle ear cavity 2. No acute intracranial findings [place], [place] [phone] CT Scan Report Patient: NICHOLAS NGUYEN AAdmit Date: 09/03/18 MR#: [id number]: [address] Acct ID:[id number]: [place] Date: 1950[facility] Zip: [place] [address] Age: 67Location: 2S Sex: M Room/Bed: S240-1 Att Phy: Juarez Sanchez MD, PhDDiagnosis: LOWER EXTREMITY WEAKNESS,AMS Rena Phy: Heartnoé NittanyService Date: 09/04/18 Fam Phy: Interpreting Phy: Frankie Barrow MD Admit Phy: Prasanna Borjas M.D. Ordering Phy: Bong Morales D.O. cc: ~ LUMBAR SPINE CT CT DOSE: HISTORY: Back pain TECHNIQUE: Multiaxial CT images of the lumbar spine were performed and reformatted in the sagittal and coronal plane without the use of contrast. A dose lowering technique was utilized adhering to the principles of ALARA. COMPARISON: Lumbar spine 08/10/2018. FINDINGS: Postoperative changes redemonstrated with L3-L4, L4-L5 and L5 discectomy. Laminectomy changes are noted at L3-L5 with evidence of prior hardware removal at L5-S1. Transverse fracture noted about the posterior L3 sihva tebral body with 5 mm retropulsion. The degree of retropulsion appears similar but is obscured by the metallic artifact. The fracture extends to the junction of the bilateral pedicles, unchanged.. Healing fracture of the right L3 transverse process is again noted. The hardware appears intact. The remaining vertebral bodies appear unremarkable. Multilevel spondylitic spurring with facet arthrosis. Remote L1 compression deformity. Mild periprosthetic lucency surrounding the L3 pedicle screws which is new from the prior study. Moderate erosive change seen at the L2-L3 endplates and adjacent sclerosis. This is new from the prior study. A horseshoe kidney is noted. Paraspinal soft tissue edema is noted at the L3-L5 levels. Similar size in the periphery calcified fluid collection at the laminectomy sites from the L3-L5 level. This measures 8.2 x 7.1 x 4.1 cm. This contains multiple antibiotic pledgets at this time. Evaluation of the central canal is essentially nondiagnostic due to the CT technique and metallic artifact. IMPRESSION: 1. Interval development of mild erosive changes at the L2-L3 endplates. This is concerning for a developing discitis/osteomyelitis. 2. There is also been interval development of periprosthetic lucency at the bilateral L3 pedicle screws. This may represent superimposed infection. 3. Redemonstration of the postoperative fluid collection at the laminectomy sites. This is similar in size compared to the prior study but now demonstrate multiple antibiotic pledgets. 4. Healing fracture of the posterior L3 vertebral body with 5 mm retropulsion. The fractures extend into the bilateral pedicles. 5. Nondisplaced healing fracture involves the base of the right transverse process. 6. These findings were discussed Dr. Avendano at 9:30 AM on 08/29/2018.
[2018-09-29] MEDS: fentaNYL 12 MCG/HR TDSY TD SCH (10:43)
--- NOTE | 2018-09-29 10:59 | Infectious Disease Consult ---
Date of Consultation September 29, 2018 Assessment & Plan (1) UTI (urinary tract infection): will start caspo, await final culture. continue zyvox as previously planned (2) Paraspinal abscess: History of Present Illness Attending Physician: Juarez Sanchez MD, PhD, [facility] pt admitted with change in mental status. Was initially seen in August for back infection, cultures grew Serritia, treated with Ertapenem. 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 had elina, creat 2+, changed to zyvox, remains on this. Now home, increased weakness. chronic luna in place. Denies f/c. continues with back pain, hardwar out. 09/27 UA >30 wbc, no bacteria but budding yeast noted, culture growing yeast as well. final pending. blood cultures negative. afebrile. remains on zyvox, tolerating well. no abd pain, no n/v/d, denies cp, sob, cough. Allergies Allergy/AdvReac Type Severity Reaction Status Date / Time No Known Allergies Allergy Verified 08/01/18 15:19 Home Medications Home Medications Medication Instructions Recorded Confirmed Type magnesium oxide 400 mg PO QAM #0 tab 11/27/11 09/27/18 History losartan 50 mg PO QAM #0 tab 05/26/12 09/27/18 History omega 0-mxb-jbt-fish oil [Fish Oil] 1 cap PO QAM #0 cap 05/26/12 09/27/18 History atorvastatin 40 mg PO HS #0 tab 11/12/14 09/27/18 History coenzyme Q10 100 mg PO QAM #0 11/12/14 09/27/18 History finasteride [Proscar] 5 mg PO QAM #0 11/12/14 09/27/18 History insulin aspart U-100 10 unit SC TIDM #0 03/07/16 09/27/18 History metoprolol succinate [Toprol XL] 100 mg PO QAM #0 03/07/16 09/27/18 History metformin 1,000 mg PO BID 05/16/18 09/27/18 History vitamin B complex 1 tab PO QAM 07/22/18 09/27/18 History aspirin [Ecotrin Low Strength] 81 mg PO QAM #30 tab 08/14/18 09/27/18 Rx clopidogrel 75 mg PO QAM #30 tab 08/14/18 09/27/18 Rx furosemide 40 mg PO DAILY #30 tab 08/14/18 09/27/18 Rx sennosides-docusate sodium [Senna 2 tab PO BID #3 tab 08/14/18 09/27/18 Rx with Docusate Sodium] tamsulosin 0.4 mg PO HS #3 cap 08/14/18 09/27/18 Rx Glucagon Emergency Kit (human) 1 dose IM DIRECTED PRN 08/26/18 09/27/18 History Insta-Glucose 1 dose PO 08/26/18 History acetaminophen 650 mg PO Q6H PRN 08/26/18 09/27/18 History bisacodyl [Dulcolax (bisacodyl)] 10 mg RI DAILY PRN 08/26/18 09/27/18 History cholecalciferol (vitamin D3) 2,000 units PO DAILY 08/26/18 09/27/18 History [Vitamin D3] cyanocobalamin (vitamin B-12) 1,000 mcg PO DAILY 08/26/18 09/27/18 History [Vitamin B-12] magnesium hydroxide [Milk of 30 ml PO DAILY PRN 08/26/18 09/27/18 History Magnesia] sodium phosphates [Fleet Pediatric] 118 ml RI DAILY PRN 08/26/18 09/27/18 History insulin detemir U-100 7 unit SUBCUT BID 09/03/18 09/27/18 History lidocaine 1 patch TOP DAILY #1 ea 09/16/18 09/27/18 Rx oxycodone 5 mg PO Q6 PRN #15 tab 09/16/18 09/27/18 Rx potassium chloride [Klor-Con M20] 40 meq PO DAILY #30 tab 09/16/18 09/27/18 Rx insulin lispro [Humalog U-100 1 sliding scale dose SUBCUT 09/27/18 09/27/18 History Insulin] USEASDIRECTD linezolid [Zyvox] 600 mg PO Q12H 09/27/18 09/27/18 History multivitamin 1 tab PO QAM 09/27/18 09/27/18 History ondansetron HCl 4 mg PO Q6 PRN 09/27/18 09/27/18 History oxycodone [OxyContin] 10 mg PO Q12H 09/27/18 09/27/18 History Patient History Medical History Difficult airway for intubation [employer]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 Admitted [facility] 10/18/11 for onset of incapacitating cervical myelopathy. 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 Pt had c-spine surgery, subsequent prolonged hospital admission, complicated post-op course. Difficult intubation Sudden cardiac Post-op 2011 [facility]. Now has ICD. Sleep apnea PT NOT CURRENTLY CPAP 2/2 recurrent sinus infections. WILL SEE SLEEP MEDICINE/DR. ARCHULETA LATE 2017 Diabetes mellitus, type 2 IDDM. Degenerative disc disease Chronic back pain CHRONIC PAIN IN LEFT LEG Ischemic cardiomyopathy EF WNL 11/2017 CAD (coronary artery disease) s/p triple CABG 2002 Full dentures (Acute) Obese (Acute) Heart disease (Acute) HTN (hypertension) (Acute) High cholesterol (Acute) Coagulase-negative staphylococcal infection Paraspinal abscess Surgical History History of esophagogastroduodenoscopy (EGD) History of colonoscopy History of cardiac cath 2011 AT [facility] - UNSURE IF HE HAS STENTS. History of tracheostomy Hx of transurethral resection of prostate History of cataract extraction with lens replacement Hx of tonsillectomy (Acute) H/O cervical spine surgery (Acute) ACDI C3-4, C7 corpectomy, removal of C7 intramedullary mass. History of lumbar spinal fusion (Acute) S/P triple vessel bypass (Acute) [facility]2002 History of incision and drainage Lumbar spine on 08/11; complicated by difficult intubation with only #6.5 ETT able to be placed and patient kept intubated post op Family History Other Diabetes Hypertension No pertinent family history Social History Preferred Language: Omani Communication Ability: Impaired Visual Impairment: No Limitations Hearing Ability: Normal Equal Opportunity Specialist Required: No Beliefs That Will Affect Care: None marital status: Current Living Situation: Rehab Current Living Situation Comment: [facility] Other Information That Helps Us Care for You: No Feels Safe at Home: Yes Smoking Status: Never smoker Tobacco Type: smokeless tobacco Do You Dip or Chew Tobacco: Yes (last chew was in july) Second Hand Exposure: No Tobacco Cessation Education Requested by Patient: No Hx Alcohol Use: No Hx Substance Use: No Review of Systems Review of Systems: All systems reviewed & are unremarkable except as noted in HPI & below Physical Exam Constitutional: WD/WN, vitals as above Eyes: PERRL, conjunctivae normal, anicteric sclerae ENMT: external ear and nose normal, oropharynx normal Neck: normal visual inspection Respiratory: normal respiratory effort, lungs clear to auscultation Cardiovascular: RRR, no murmur, no edema Gastrointestinal (Abdomen): normal bowel sounds, soft, nontender, no hepatosplenomegaly Musculoskeletal: no cyanosis or clubbing, extremities motor strength 5/5 Skin: no rashes, warm and dry Psychiatric: A+Ox3, euthymic affect Results & Data Vital Signs (Past 12 Hours) Vital Signs Temp Pulse Resp BP BP Pulse Ox 09/29/18 07:41 36.6 C 74 16 153/69 H 99 09/29/18 02:55 36.5 C 80 22 125/68 97 09/28/18 23:30 36.7 C 70 16 111/54 L 98 Laboratory Results Microbiology 09/27/18 Unknown Urine,Straight Cath Urine Culture - Final Tiffany albicans 09/27/18 12:05 Blood Blood Culture - Preliminary No growth to date. 09/27/18 11:55 Blood Blood Culture - Preliminary No growth to date.
[2018-09-29 11:22] LABS: Appearance Urine Clear (Clear); Bacteria Urine Automated Negative (Negative); Bilirubin Urine Negative (Negative); Blood Urine Trace (Negative); Color Urine Yellow; Glucose Urine UA Negative (Negative); Ketones Urine Trace (Negative); Leukocyte Esterase Urine 2+ (Negative); Nitrite Urine Negative (Negative); Protein Urine Negative (Negative); RBC Urine Automated 0-4 /hpf (0-4); Specific Gravity Urine 1.015 (1.000-1.030); Urobilinogen Urine Negative (Negative); pH Urine 5.5 (4.5-7.5)
[2018-09-29] MEDS: CASPOFUNGIN 50 MG in SODIUM CHLORIDE 0.9% 250 ML IV SCH (11:50)
--- NOTE | 2018-09-29 12:59 | Hospitalist Progress Note ---
Date of Service September 29, 2018 Assessment & Plan (1) Altered mental status: likely from multiple reasons for altered mental status: such as metabolic encephalopathy due to PAULA on CKD, chronic pain, chronic infection, and on narcotics Improved, and resolving, today's awake alert and orientated, conversational, cont treat PAULA which has been stable Continue regimen of narcotics, pain management on the case, change to fentanyl patch, Continue current breakthrough oxycodone at this time. Consider utilization of SNRI versus tricyclic antidepressants in the future to further augment descending pain regulation continue on Zyvox for coag negative staph for that he was on prior to this admi ssion Started antifungal for treatment of fungal uti Strongly encourage OOB, PT. OT (2) Acute kidney injury: PAULA on cKD Cr today is 2.2 from 2.4, was up to 2.8 on 09/22 was treated with IV fluids at [facility] [facility], little improvement in Cr Luna catheter in place, thought that PAULA was due to Vanco, which has since been stopped f/u Dr. Mathews for recommendations DC IVF, encourage oral intake hold nephrotoxins and dose medications accordingly (3) Coagulase-negative staphylococcal infection: continue on Zyvox was on Vanco but stopped due to PAULA f/u Dr. Ndiaye for further instructions (4) Post-operative pain: likely from sharp spasm like pains Has been on baclofen and OxyContin and Oxycodone, and change to fentanyl patch per pain management,l Postop has been some pain, is better toda, pain management input appreciated (5) Paraspinal abscess: see above for coag negative infection Lower back incisions, is opening, no drainage, surgeon saw it today feel it is healing nicely. T had surgery on 09/10/18, continue antibiotic, wound care (6) Chronic systolic heart failure: patient examines euvolemic, stable cont hold Lasix for time being given his PAULA monitor closely for volume overload (7) Urinary retention: continue luna, has been in for over 30 days, stable See above is treating fungal UTI, (8) Acute anemia: Hb has been dropping very slowly, transfuse 1 unit, today's hemoglobin 8.4, (9) Ischemic cardiomyopathy: (10) ICD (implantable cardioverter-defibrillator) in place: (11) Diabetes mellitus, type 2: diabetic diet Novolog Subjective Reports still have pain 8 out of 10 pain, pain management switch long-acting oxycodone to fentanyl patch, Report no appetite, No fever and chills, however generalized weakness, Review of Systems Review of Systems: All systems reviewed & are unremarkable except as noted in HPI & below Physical Exam Physical Exam: General Appearance: Uncomfortable, pale, tired, WD/WN, no apparent distress, Eyes: normal inspection, PERRL, EOMI, sclerae normal ENT: normal ENT inspection, hearing grossly normal, pharynx normal Neck: supple, no adenopathy, thyroid normal, no JVD, no carotid bruits, trachea midline Respiratory/Chest: chest non-tender, normal breath sounds, no respiratory dist ress, no accessory muscle use, breath sounds, rales, wheezing Cardiovascular: regular rate, rhythm, no JVD, no murmur Abdomen: normal bowel sounds, non tender, soft, no organomegaly, luna in place Extremities: Middle and lower back has incisions from recent surgery, no drainage no erythema, about 1 inch vertical long, Lower extremities 1+ edema, no calf tenderness, normal capillary refill, pelvis stable, joint has no limited range of motion, capillary refill is normal, no cyanosis clubbing 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, Skin: pale , warm/dry, no rash Lymphatic: no adenopathy Results & Data Vital Signs (Past 12 Hours) Vital Signs Temp Pulse Resp BP BP Pulse Ox 09/29/18 11:41 36.4 C L 68 18 107/45 L 99 09/29/18 07:41 36.6 C 74 16 153/69 H 99 09/29/18 02:55 36.5 C 80 22 125/68 97 Laboratory Results - last 24 hr 09/28/18 09/28/18 09/28/18 10:51 16:14 20:13 WBC RBC Hgb Hct MCV MCH MCHC RDW Std Deviation RDW Coeff of Norbert Plt Count MPV Sodium Potassium Chloride Carbon Dioxide Anion Gap BUN Creatinine Est Cr Clr Drug Dosing Est GFR ( Amer) Est GFR (Non-Af Amer) BUN/Creatinine Ratio Glucose POC Glucose 86 84 Calcium Magnesium Urine Color Urine Appearance Urine pH Ur Specific [place] Urine Protein Urine Glucose (UA) Urine Ketones Urine Blood Urine Nitrite Urine Bilirubin Urine Urobilinogen Ur Leukocyte Esterase Urine WBC (Auto) Urine RBC (Auto) U Hyaline Cast (Auto) U Epithel Cells (Auto) Urine Bacteria (Auto) Antibody Identification Anti-E Crossmatch See Detail 09/29/18 09/29/18 09/29/18 05:41 05:41 07:16 WBC 7.46 RBC 3.18 L Hgb 8.4 L Hct 27.0 L MCV 84.9 MCH 26.4 MCHC 31.1 L RDW Std Deviation 50.7 H RDW Coeff of Norbert 16.3 H Plt Count 208 MPV 8.5 Sodium 134 L Potassium 4.3 Chloride 103 Carbon Dioxide 26 Anion Gap 5.0 BUN 38 H Creatinine 2.20 H Est Cr Clr Drug Dosing 37.1 Est GFR ( Amer) 35.1 Est GFR (Non-Af Amer) 30.3 BUN/Creatinine Ratio 17.5 Glucose 87 POC Glucose 100 H Calcium 8.3 L Magnesium 2.1 Urine Color Urine Appearance Urine pH Ur Specific [place] Urine Protein Urine Glucose (UA) Urine Ketones Urine Blood Urine Nitrite Urine Bilirubin Urine Urobilinogen Ur Leukocyte Esterase Urine WBC (Auto) Urine RBC (Auto) U Hyaline Cast (Auto) U Epithel Cells (Auto) Urine Bacteria (Auto) Antibody Identification Crossmatch 09/29/18 09/29/18 11:20 Unknown WBC RBC Hgb Hct MCV MCH MCHC RDW Std Deviation RDW Coeff of Norbert Plt Count MPV Sodium Potassium Chloride Carbon Dioxide Anion Gap BUN Creatinine Est Cr Clr Drug Dosing Est GFR ( Amer) Est GFR (Non-Af Amer) BUN/Creatinine Ratio Glucose POC Glucose 132 H Calcium Magnesium Urine Color Yellow Urine Appearance Clear Urine pH 5.5 Ur Specific [place] 1.015 Urine Protein Negative Urine Glucose (UA) Negative Urine Ketones Trace H Urine Blood Trace H Urine Nitrite Negative Urine Bilirubin Negative Urine Urobilinogen Negative Ur Leukocyte Esterase 2+ H Urine WBC (Auto) 5-10 H Urine RBC (Auto) 0-4 U Hyaline Cast (Auto) 1-5 U Epithel Cells (Auto) 5-10 H Urine Bacteria (Auto) Negative Antibody Identification Crossmatch Microbiology 09/27/18 Unknown Urine,Straight Cath Urine Culture - Final Tiffany albicans 09/27/18 12:05 Blood Blood Culture - Preliminary No growth to date. 09/27/18 11:55 Blood Blood Culture - Preliminary No growth to date.
[2018-09-29] MEDS: SENNA 17.6 MG/10 ML UDP PO SCH (13:18)
[2018-09-29] MEDS: CHECK FENTANYL PATCH PLACEMENT SCH (14:55)
--- NOTE | 2018-09-29 14:56 | Orthopedic Consultation ---
Date of Consultation September 29, 2018 Assessment & Plan (1) Weakness of lower extremity: This time we will going to obtain x-rays lumbar spine to assess the interbody cage at 3 4. Encourage physical therapy when he is medically stable for transfers and ambulation as tolerated. Present on Admission?: Yes History of Present Illness Reason for Consultation: Back pain Attending Physician: Juarez Sanchez MD, PhD, [facility] History of Present Illness This is a 67-year-old male well-known to me having undergone multiple lumbar surgeries and unfortunately having a postop infection which we are still managing. He is return to the hospital day with evidence of UTI. Upon my discussion with him today he is somewhat confused. He does know who I am. He complains of some modest back pain no leg pain. Allergies Allergy/AdvReac Type Severity Reaction Status Date / Time No Known Allergies Allergy Verified 08/01/18 15:19 Home Medications Home Medications Medication Instructions Recorded Confirmed Type magnesium oxide 400 mg PO QAM #0 tab 11/27/11 09/27/18 History losartan 50 mg PO QAM #0 tab 05/26/12 09/27/18 History omega 5-qig-adz-fish oil [Fish Oil] 1 cap PO QAM #0 cap 05/26/12 09/27/18 History atorvastatin 40 mg PO HS #0 tab 11/12/14 09/27/18 History coenzyme Q10 100 mg PO QAM #0 11/12/14 09/27/18 History finasteride [Proscar] 5 mg PO QAM #0 11/12/14 09/27/18 History insulin aspart U-100 10 unit SC TIDM #0 03/07/16 09/27/18 History metoprolol succinate [Toprol XL] 100 mg PO QAM #0 03/07/16 09/27/18 History metformin 1,000 mg PO BID 05/16/18 09/27/18 History vitamin B complex 1 tab PO QAM 07/22/18 09/27/18 History aspirin [Ecotrin Low Strength] 81 mg PO QAM #30 tab 08/14/18 09/27/18 Rx clopidogrel 75 mg PO QAM #30 tab 08/14/18 09/27/18 Rx furosemide 40 mg PO DAILY #30 tab 08/14/18 09/27/18 Rx sennosides-docusate sodium [Senna 2 tab PO BID #3 tab 08/14/18 09/27/18 Rx with Docusate Sodium] tamsulosin 0.4 mg PO HS #3 cap 08/14/18 09/27/18 Rx Glucagon Emergency Kit (human) 1 dose IM DIRECTED PRN 08/26/18 09/27/18 History Insta-Glucose 1 dose PO 08/26/18 History acetaminophen 650 mg PO Q6H PRN 08/26/18 09/27/18 History bisacodyl [Dulcolax (bisacodyl)] 10 mg DC DAILY PRN 08/26/18 09/27/18 History cholecalciferol (vitamin D3) 2,000 units PO DAILY 08/26/18 09/27/18 History [Vitamin D3] cyanocobalamin (vitamin B-12) 1,000 mcg PO DAILY 08/26/18 09/27/18 History [Vitamin B-12] magnesium hydroxide [Milk of 30 ml PO DAILY PRN 08/26/18 09/27/18 History Magnesia] sodium phosphates [Fleet Pediatric] 118 ml DC DAILY PRN 08/26/18 09/27/18 History insulin detemir U-100 7 unit SUBCUT BID 09/03/18 09/27/18 History lidocaine 1 patch TOP DAILY #1 ea 09/16/18 09/27/18 Rx oxycodone 5 mg PO Q6 PRN #15 tab 09/16/18 09/27/18 Rx potassium chloride [Klor-Con M20] 40 meq PO DAILY #30 tab 09/16/18 09/27/18 Rx insulin lispro [Humalog U-100 1 sliding scale dose SUBCUT 09/27/18 09/27/18 History Insulin] USEASDIRECTD linezolid [Zyvox] 600 mg PO Q12H 09/27/18 09/27/18 History multivitamin 1 tab PO QAM 09/27/18 09/27/18 History ondansetron HCl 4 mg PO Q6 PRN 09/27/18 09/27/18 History oxycodone [OxyContin] 10 mg PO Q12H 09/27/18 09/27/18 History Patient History Medical History Difficult airway for intubation YAM CURER 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 Admitted [facility] 10/18/11 for onset of incapacitating cervical myelopathy. Spinal tap showed YAM CURER Lyme disease, MRI showed severe spinal cord compression at C3-4 with myelomalacia and intramedullary mass. Pt had c-spine surgery, subsequent prolonged hospital admission, complicated post-op course. Difficult intubation Sudden cardiac Post-op 2011 [facility]. Now has ICD. Sleep apnea PT NOT CURRENTLY CPAP 2/2 recurrent sinus infections. WILL SEE SLEEP MEDICINE/DR. ARCHULETA LATE 2017 Diabetes mellitus, type 2 IDDM. Degenerative disc disease Chronic back pain CHRONIC PAIN IN LEFT LEG Ischemic cardiomyopathy EF WNL 11/2017 CAD (coronary artery disease) s/p triple CABG 2002 Full dentures (Acute) Obese (Acute) Heart disease (Acute) HTN (hypertension) (Acute) High cholesterol (Acute) Coagulase-negative staphylococcal infection Paraspinal abscess Surgical History History of esophagogastroduodenoscopy (EGD) History of colonoscopy History of cardiac cath 2011 AT [facility] - UNSURE IF HE HAS STENTS. History of tracheostomy Hx of transurethral resection of prostate History of cataract extraction with lens replacement Hx of tonsillectomy (Acute) H/O cervical spine surgery (Acute) ACDI C3-4, C7 corpectomy, removal of C7 intramedullary mass. History of lumbar spinal fusion (Acute) S/P triple vessel bypass (Acute) [facility] [place] History of incision and drainage Lumbar spine on 08/11; complicated by difficult intubation with only #6.5 ETT able to be placed and patient kept intubated post op Family History Other Diabetes Hypertension No pertinent family history Social History Preferred Language: Haitian Communication Ability: Impaired Visual Impairment: No Limitations Hearing Ability: Normal Finding Fastener Required: No Beliefs That Will Affect Care: None marital status: Current Living Situation: Rehab Current Living Situation Comment: temporarily living at [facility] Other Information That Helps Us Care for You: No Feels Safe at Home: Yes Smoking Status: Never smoker Tobacco Type: smokeless tobacco Do You Dip or Chew Tobacco: Yes (last chew was in july) Second Hand Exposure: No Tobacco Cessation Education Requested by Patient: No Hx Alcohol Use: No Hx Substance Use: No Physical Exam Physical Exam: Patient does demonstrate good strength testing bilateral plantar flexion dorsiflexion quadriceps are still somewhat weak. His lumbar incision appears to be healing nicely. There is no erythema or drainage. Results & Data Vital Signs (Past 12 Hours) Vital Signs Temp Pulse Resp BP BP Pulse Ox 09/29/18 11:41 36.4 C L 68 18 107/45 L 99 09/29/18 07:41 36.6 C 74 16 153/69 H 99 09/29/18 02:55 36.5 C 80 22 125/68 97
--- NOTE | 2018-09-29 17:23 | XRay Report ---
XR lumbar spine 2-3V CLINICAL HISTORY: 67 years-old Male presenting with postop. TECHNIQUE: Frontal, lateral, and coned-down lateral views of the lumbar spine were obtained. COMPARISON: Correlation made to CT of the lumbar spine from 09/03/2018. FINDINGS: Postsurgical changes of interbody spacers at L3-4 through L5-S1 remain in place. Transpedicular screw and nadia fixation of L3-4 has been removed. Antibiotic impregnated beads noted in the laminectomy bed . There is abnormal lucency surrounding the L3-4 interbody spacer, which was evident to some degree o n the prior exam. Overall the examination is limited by patient body habitus and overlapping bowel gas and stool. Addit ionally underlying osteopenia limits evaluation. There is suggestion of a minimally displaced fractur e of the anterior inferior aspect of the L3 vertebral body. There is also greater height loss suggest ed of L3 as well as potentially mild compression deformities of T12 and L1, which may be new from nia or. No gross evidence of subluxation or retropulsion of the posterior cortices of the vertebral abbie s. IMPRESSION: 1. Interval removal of transpedicular screw and nadia fixation hardware at L3-4. 2. Lucency surrounding the L3-4 interbody spacers suggest chronic osteomyelitis, grossly similar to prior exam. 3. Minimally displaced fracture of the anterior inferior aspect of the L3 vertebral body is not excl uded and would be new from prior present. 4. Additional mild compression fractures of T12 and L1 is suggested, which may also be new from prio r. 5. Given these findings and limited image quality, further evaluation with CT of the lumbar spine co uld be considered if clinically useful. Electronically signed by: Benson Junior M.D. 09/29/2018 5:22 PM
[2018-09-29] MEDS: TAMSULOSIN HCL 0.4 MG CAP PO SCH (19:57)
[2018-09-29] MEDS: ATORVASTATIN 40 MG TAB PO SCH (19:57)
[2018-09-30] MEDS: CHECK FENTANYL PATCH PLACEMENT SCH ×3 (01:26→15:57)
[2018-09-30] MEDS: HEPARIN SOD 5,000 UNIT/0.5 ML VIAL SQ SCH ×3 (05:53→21:46)
[2018-09-30 07:55] LABS: BUN Creatinine Ratio 15.3 (10-20); Calcium 8.6 mg/dl (8.5-10.1); Creatinine Clr Calc Pharmacy 35.1 ml/min; Est GFR (African American) 32.8; Est GFR (Non-African American) 28.3; Potassium 4.1 mmol/L (3.5-5.1)
[2018-09-30] MEDS: CHOLECALCIFEROL 1,000 UNITS TAB PO SCH (08:33)
[2018-09-30] MEDS: CYANOCOBALAMIN 500 MCG TABLET (VITAMIN B-12) PO SCH (08:33)
[2018-09-30] MEDS: FINASTERIDE 5 MG TAB PO SCH (08:33)
[2018-09-30] MEDS: CLOPIDOGREL BISULFATE 75 MG TAB PO SCH (08:33)
[2018-09-30] MEDS: MAGNESIUM OXIDE 400 MG TAB PO SCH (08:33)
[2018-09-30] MEDS: ASPIRIN 81 MG ECTAB PO SCH (08:33)
[2018-09-30] MEDS: METOPROLOL SUCC 50MG EXT REL TAB PO SCH (08:34)
[2018-09-30] MEDS: SENNA 17.6 MG/10 ML UDP PO SCH (08:34)
[2018-09-30] MEDS: LINEZOLID 600 MG TAB PO SCH ×2 (08:35→18:03)
[2018-09-30] MEDS: INSULIN ASPART 100 UNITS/ML 3 ML PEN SC SCH ×4 (08:37→21:45)
[2018-09-30] MEDS: INSULIN DETEMIR FLEXPEN/FLEX TOUCH 100 UNITS/ML 3ML SQ SCH ×2 (08:37→21:44)
[2018-09-30] MEDS: OXYCODONE HCL IR 5 MG TAB (IMMEDIATE RELEASE) PO PRN ×2 (09:11→14:19)
--- NOTE | 2018-09-30 09:49 | Orthopedic Progress Note ---
Date of Service September 30, 2018 Assessment & Plan (1) UTI (urinary tract infection): This time we will hold PT today. I will obtain a CAT scan lumbar spine. X-rays demonstrate possible new compression fractures at the thoracolumbar junction. There is some collapse of the L3-4 disc space indicating possible fracture at this level. It may also indicate continued osteomyelitis. There is evidence of antibiotic beads still in place. We will make further recommendations after review of the CAT scan. Present on Admission?: Yes Subjective Patient is resting. Is arousable and somewhat disoriented. Results & Data Vital Signs (Past 12 Hours) Vital Signs Temp Pulse Pulse Resp BP BP Pulse Ox 09/30/18 07:36 36.6 C 63 18 130/68 97 09/30/18 04:53 37.2 C 67 20 131/47 L 99 09/29/18 23:30 68 09/29/18 22:45 36.7 C 67 16 116/57 L 97
[2018-09-30] MEDS: CASPOFUNGIN 50 MG in SODIUM CHLORIDE 0.9% 250 ML IV SCH (10:00)
--- NOTE | 2018-09-30 10:10 | Nephrology Progress Note ---
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 No obstruction reported -- Urinalysis with blood due to chronic indwelling luna catheter and funguria. No protein on urinalysis -- Patient remains nonoliguric. Creatinine is trending down off Vancomycin therapy -- No volume overload. Will heplock IV and encourage oral hydration -- Monitor serial PRP (2) Chronic indwelling Luna catheter: -- Luna catheter changed out due to funguria 09/29 -- Patient is now on Caspofungin therapy as per ID (3) Delirium: -- Oriented to self and place this am -- On narcotic analgesics due to recent back surgery Subjective Mr. Cooper was seen & examined in the PCU this morning. He awakens to voice and will follow simple one step commands. He is oriented to self and place. His only complaint is that of back discomfort. Review of Systems Constitutional: no fever Respiratory: no dyspnea Cardiovascular: no chest pain Gastrointestinal: no abdominal pain and no diarrhea/loose stools Physical Exam Constitutional: + ill appearing Eyes: PERRL Neck: trachea midline, no thyromegaly Respiratory: normal respiratory effort, lungs clear to auscultation no respiratory distress Cardiovascular: Rate/Rhythm: regular rate and regular rhythm Heart Sounds: no murmur Extremities: no edema (trace) Gastrointestinal (Abdomen): normal bowel sounds, soft, nontender, no hepatosplenomegaly Results & Data Vital Signs (Past 12 Hours) Vital Signs Temp Pulse Pulse Resp BP BP Pulse Ox 09/30/18 07:36 36.6 C 63 18 130/68 97 09/30/18 04:53 37.2 C 67 20 131/47 L 99 09/29/18 23:30 68 09/29/18 22:45 36.7 C 67 16 116/57 L 97
--- NOTE | 2018-09-30 13:51 | CT Scan Report ---
CT lumbar spine wo con CLINICAL HISTORY: 67 years-old Male presenting with back pain, low back pain, recent CT concerning fo r discitis osteolysis. TECHNIQUE: Multidetector CT of the lumbar spine was performed without the use of intravenous contrast . IV contrast: None. One or more dose lowering techniques were used consistent with the principles of ALARA (as low as reasonably achievable), including automatic exposure control, mA or kV adjustment t o individual patient size, and/or use of iterative reconstruction. COMPARISON: 09/03/2018. CT DOSE (mGy.cm): The estimated cumulative dose is 712.15 mGy.cm. FINDINGS: [employer] topogram: Interbody spacers noted in the lumbar spine. There has been interval removal of the prior transpedicular screw and nadia fixation hardware at L3-4. Interbody spacers noted from L3-4 through L5-S1. Erosion of the endplates at the L3-4 intervertebral space. Abnormal sclerosis of the L3 and L4 vertebral bodies. Exaggerated lucency along the prior scre w tracts in the L3 vertebral body and to a lesser extent in L4. Laminectomy defects of L3-L5 with antibiotic beads within the laminectomy bed. The beads layer within a fluid collection, which is peripherally calcified. Previously noted fracture of the pedicles of L3 and posterior superior aspect of the vertebral body. The degree of retropulsion is unchanged from pr ior. The queried fracture at the anterior inferior aspect of L3 on recent radiograph is not appreciat ed, likely artifactual on the radiograph. Interval increase in erosive changes at the L2-3 intervertebral disc space. Extensive inflammatory changes in the paraspinal region as on prior exam. IMPRESSION: Subtle increased erosive changes at the L2-3 intervertebral disc space concerning for spread of disci tis osteolysis. Removal of the transpedicular screw and nadia fixation hardware at L3-4. Lucency along the prior screw tracts concerning for infection. Progression of infection at the L3-4 level with greater osteolysis concerning for worsening discitis osteomyelitis. Persistent fluid collection in the laminectomy bed containing antibiotic beads. Redemonstration of prior fractures of L3, including the vertebral body and pedicles. The report will be called/faxed according to standard departmental protocol.ental protocol. Electronically signed by: Benson Junior M.D. 09/30/2018 1:50 PM
--- NOTE | 2018-09-30 14:41 | Infectious Disease Progress Nt ---
Date of Service September 30, 2018 Assessment & Plan (1) UTI (urinary tract infection): continue caspo, 7 days total. multiple DDI with fluconazole. continue zyvox as previously planned. will follow with Dr. Ndiaye post d/c from hospital. (2) Coagulase-negative staphylococcal infection: Subjective pt seen in followup, doing well. c/o min hip pain, no f/c. started on caspo, tolerating well. no abd pain. no n/v/d. remains on zyvox. no back pain. Urine culture growing C. albicans. blood cultures remain negative. all remaining ros reviewed and are negative Review of Systems Review of Systems: All systems reviewed & are unremarkable except as noted in HPI & below Physical Exam Constitutional: WD/WN, vitals as above Eyes: PERRL, conjunctivae normal, anicteric sclerae ENMT: external ear and nose normal, oropharynx normal Neck: normal visual inspection Respiratory: normal respiratory effort, lungs clear to auscultation Cardiovascular: RRR, no murmur, no edema Gastrointestinal (Abdomen): normal bowel sounds, soft, nontender, no hepatosplenomegaly Musculoskeletal: no cyanosis or clubbing, extremities motor strength 5/5 Skin: no rashes, warm and dry Psychiatric: A+Ox3, euthymic affect Results & Data Vital Signs (Past 12 Hours) Vital Signs Temp Pulse Resp BP Pulse Ox 09/30/18 12:03 36.6 C 63 18 140/66 98 09/30/18 07:36 36.6 C 63 18 130/68 97 09/30/18 04:53 37.2 C 67 20 131/47 L 99 Laboratory Results Microbiology 09/27/18 Unknown Urine,Straight Cath Urine Culture - Final Tiffany albicans 09/27/18 12:05 Blood Blood Culture - Preliminary No growth to date. 09/27/18 11:55 Blood Blood Culture - Preliminary No growth to date.
--- NOTE | 2018-09-30 16:01 | Hospitalist Progress Note ---
Date of Service September 30, 2018 Assessment & Plan (1) Altered mental status: likely from multiple reasons for altered mental status: such as metabolic encephalopathy due to PAULA on CKD, chronic pain, chronic infection, and on narcotics Improved, and resolving, resolved cont treat PAULA which has been stable Continue regimen of narcotics, pain management on the case, per recs: change to fentanyl patch, Continue current breakthrough oxycodone at this time. Consider utilization of SNRI versus tricyclic antidepressants in the future to further augment descending pain regulation continue on Zyvox for coag negative staph for that he was on prior to this admission Started antifungal for treatment of fungal uti Strongly encourage OOB, PT. OT (2) Acute kidney injury: PAULA on cKD Cr today is 2.3 , yesterday was 2.2 from 2.4, was up to 2.8 on 09/22 was treated with IV fluids at [facility], little improvement in Cr Luna catheter in place, f/u Dr. Mathews for recommendations DC IVF, encourage oral intake hold nephrotoxins and dose medications accordingly stable (3) Coagulase-negative staphylococcal infection: continue on Zyvox was on Vanco but stopped due to PAULA f/u Dr. Ndiaye for further instructions (4) Post-operative pain: likely from sharp spasm like pains, also see above Has been on baclofen and OxyContin and Oxycodone, and change to fentanyl patch per pain management,l (5) Paraspinal abscess: see above for coag negative infection Lower back incisions, is opening, no drainage, surgeon saw it today feel it is healing nicely. T had surgery on 09/10/18, continue antibiotic, wound care (6) Chronic systolic heart failure: patient examines euvolemic, stable cont hold Lasix for time being given his PAULA monitor closely for volume overload (7) Urinary retention: continue luna, has been in for over 30 days, stable See above is treating fungal UTI, luna changed, on IV med of caspofungi (8) Acute anemia: Hb has been dropping very slowly, transfuse 1 unit, today's hemoglobin 8.4, Discharge plan will be back to [facility] (9) Ischemic cardiomyopathy: (10) ICD (implantable cardioverter-defibrillator) in place: (11) Diabetes mellitus, type 2: diabetic diet Novolog Subjective Report has significant breakthrough pain, 6 out of 10 when I seen him, not out of bed to chair yet, has bowel movement yesterday Denies fever and chill, Review of Systems Review of Systems: Other Review of Systems Constitutional: positive weakness, or fatigue Respiratory: no cough, sputum, wheezing, Cardiac: No chest pain, No orthopnea Abdomen: No pain, No nausea, No vomiting, No diarrhea, Musculoskeletal: lower back pain, , No swelling, No calf pain, No problem reported : No dysuria, No urinary frequency, Neurologic: No paralysis, No weakness, No numbness/tingling Psychiatric: No depression symptoms, No anhedonism, No anxiety, Heme: No abnormal bleeding/bruising, No clotting problems, No swollen lymph nodes, No night sweats Skin: No rash, No itch, No new/changing skin lesions, No color change, No bleeding Physical Exam Physical Exam: General Appearance: Uncomfortable, mild pale, tired, WD/WN, no apparent distress, Eyes: normal inspection, PERRL, EOMI, sclerae normal ENT: normal ENT inspection, hearing grossly normal, pharynx normal Neck: supple, no adenopathy, thyroid normal, no JVD, no carotid bruits, trachea midline Respiratory/Chest: chest non-tender, normal breath sounds, no accessory muscle use, no rales, wheezing Cardiovascular: regular rate, rhythm, no JVD, no murmur Abdomen: normal bowel sounds, non tender, soft, no organomegaly, luna in place Extremities: Middle and lower back has incisions from recent surgery, no drainage no erythema, about 1 inch vertical long, Lower extremities 1+ edema, no calf tenderness, normal capillary refill, pelvis stable, joint has no limited range of motion, capillary refill is normal, no cyanosis clubbing Neurologic/Psychiatric: 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, Skin: pale , warm/dry, no rash Lymphatic: no adenopathy Results & Data Vital Signs (Past 12 Hours) Vital Signs Temp Pulse Resp BP BP Pulse Ox 09/30/18 15:48 36.5 C 62 13 135/61 98 09/30/18 12:03 36.6 C 63 18 140/66 98 09/30/18 07:36 36.6 C 63 18 130/68 97 09/30/18 04:53 37.2 C 67 20 131/47 L 99 Laboratory Results - last 24 hr 09/29/18 09/29/18 09/30/18 16:38 20:17 07:10 Sodium 136 Potassium 4.1 Chloride 105 Carbon Dioxide 26 Anion Gap 5.0 BUN 36 H Creatinine 2.33 H Est Cr Clr Drug Dosing 35.1 Est GFR ( Amer) 32.8 Est GFR (Non-Af Amer) 28.3 BUN/Creatinine Ratio 15.3 Glucose 73 POC Glucose 112 H 132 H Calcium 8.6 09/30/18 09/30/18 09/30/18 07:16 11:21 12:14 Sodium Potassium Chloride Carbon Dioxide Anion Gap BUN Creatinine Est Cr Clr Drug Dosing Est GFR ( Amer) Est GFR (Non-Af Amer) BUN/Creatinine Ratio Glucose POC Glucose 76 92 82 Calcium
[2018-09-30] MEDS: ATORVASTATIN 40 MG TAB PO SCH (21:39)
[2018-09-30] MEDS: TAMSULOSIN HCL 0.4 MG CAP PO SCH (21:40)
[2018-10-01] MEDS: CHECK FENTANYL PATCH PLACEMENT SCH ×4 (00:52→23:28)
[2018-10-01] MEDS: HEPARIN SOD 5,000 UNIT/0.5 ML VIAL SQ SCH ×3 (06:22→21:35)
[2018-10-01] MEDS: LINEZOLID 600 MG TAB PO SCH ×2 (06:22→18:37)
[2018-10-01 06:36] LABS: Hematocrit (blood only) 25.8 % (42-52); Hemoglobin 8.2 g/dL (14.0-18.0); Mean Corpuscular Hgb Conc 31.8 g/dL (32-36); Mean Platelet Volume 8.6 fL (7.4-10.4); Platelet Count 204 K/uL (130-400); RDW Coefficient of Variation 16.3 % (11.5-14.5); RDW Standard Deviation 50.1 fL (36.4-46.3); Red Blood Count 3.07 M/uL (4.7-6.1); White Blood Count 8.18 K/uL (4.8-10.8)
[2018-10-01 06:36] LABS: Appearance Urine Clear (Clear); Bacteria Urine Automated Negative (Negative); Bilirubin Urine Negative (Negative); Blood Urine 2+ (Negative); Color Urine Yellow; Glucose Urine UA Negative (Negative); Ketones Urine Negative (Negative); Leukocyte Esterase Urine 1+ (Negative); Nitrite Urine Negative (Negative); Protein Urine Negative (Negative); RBC Urine Automated >30 /hpf (0-4); Specific Gravity Urine 1.018 (1.000-1.030); Urobilinogen Urine Negative (Negative)
[2018-10-01 07:12] LABS: BUN Creatinine Ratio 14.5 (10-20); Calcium 8.8 mg/dl (8.5-10.1); Creatinine Clr Calc Pharmacy 39.9 ml/min; Est GFR (African American) 38.3; Magnesium 2.2 mg/dl (1.8-2.4); Phosphorus 3.6 mg/dl (2.5-4.9); Potassium 4.1 mmol/L (3.5-5.1)
[2018-10-01] MEDS: INSULIN ASPART 100 UNITS/ML 3 ML PEN SC SCH ×4 (09:37→21:39)
[2018-10-01] MEDS: OXYCODONE HCL IR 5 MG TAB (IMMEDIATE RELEASE) PO PRN ×4 (09:39→21:31)
[2018-10-01] MEDS: INSULIN DETEMIR FLEXPEN/FLEX TOUCH 100 UNITS/ML 3ML SQ SCH ×2 (09:39→21:37)
[2018-10-01] MEDS: CHOLECALCIFEROL 1,000 UNITS TAB PO SCH (09:42)
[2018-10-01] MEDS: CYANOCOBALAMIN 500 MCG TABLET (VITAMIN B-12) PO SCH (09:43)
[2018-10-01] MEDS: METOPROLOL SUCC 50MG EXT REL TAB PO SCH (09:43)
[2018-10-01] MEDS: CLOPIDOGREL BISULFATE 75 MG TAB PO SCH (09:44)
[2018-10-01] MEDS: FINASTERIDE 5 MG TAB PO SCH (09:44)
[2018-10-01] MEDS: ASPIRIN 81 MG ECTAB PO SCH (09:44)
[2018-10-01] MEDS: SENNA 17.6 MG/10 ML UDP PO SCH (09:44)
[2018-10-01] MEDS: MAGNESIUM OXIDE 400 MG TAB PO SCH (09:44)
--- NOTE | 2018-10-01 09:49 | Pain Management Progress Note ---
Date of Service October 01, 2018 Assessment & Plan (1) Confusion: Hold on initiate SNRI or TCA for now as his mental status does not appear back to baseline yet. (2) Paraspinal abscess: Continue Fentanyl patch 12mcg/hr and Oxycodone 5mg PO PRN. Not a candidate for interventional procedures due to concurrent infection. (3) Serratia septicemia: Continue ABX treatment per infectious disease. (4) Acute kidney injury: Subjective 67 year old white male with a significant history of lumbar paraspinal abscess, urinary tract infection, weakness, delirium, and acute kidney injury. Yesterday the OxyContin was discontinued and he was placed on Fentanyl patch 12mcg/hr. Patient does report moderate improvement with Fentanyl patch. He states that he was able to sleep well throughout the night. He did utilize Oxycodone 5mg x 2 yesterday. Patient does report low back pain and right shoulder pain this morning and states that is because he is laying crooked and slept like that. Patient rates his pain currently 5/10. No constitutional complaints. Case discussed with Dr. Serenity Chen Pain Assessment Pain Assessment Full Body Front + Back: 1. [facility] Combined Pain Scale: 5-Moderate - Cannot perform normal tasks without increase in pain Physical Exam Physical Exam: GENERAL: 67 year old white male. Speech is intact. Mood and affect is appropriate. Does not appear in acute distress. NEURO: Gait not witnessed. Awake, alert, and oriented x 3. He does have difficulty answering questions that I am asking him in reference to his pain and frequently asking for assistance with positional changes.
[2018-10-01] MEDS: CASPOFUNGIN 50 MG in SODIUM CHLORIDE 0.9% 250 ML IV SCH (09:55)
--- NOTE | 2018-10-01 10:48 | Nephrology Progress Note ---
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 No obstruction reported -- Urinalysis with blood due to chronic indwelling luna catheter and funguria. No protein on urinalysis -- Patient remains nonoliguric. Creatinine is trending down off Vancomycin therapy -- IV has been stopped. Continue to encourage oral hydration -- Creatinine has improved from 2.85 to 2.05 -- Monitor serial PRP (2) Chronic indwelling Luna catheter: -- Luna catheter changed out due to funguria 09/29 -- Patient is now on Caspofungin therapy as per ID (3) Delirium: -- Oriented to self and place this am -- On narcotic analgesics due to recent back surgery Subjective Mr. Cooper was seen & examined in his hospital room this morning. He remains on Fentanyl patch and Oxycodone for pain control. He is oriented to self and place only. He complains of continued low back discomfort Review of Systems Constitutional: no fever Respiratory: no dyspnea Cardiovascular: no chest pain Gastrointestinal: no abdominal pain and no diarrhea/loose stools Physical Exam Constitutional: + ill appearing Eyes: PERRL Neck: trachea midline, no thyromegaly Respiratory: normal respiratory effort, lungs clear to auscultation no respiratory distress Cardiovascular: Rate/Rhythm: regular rate and regular rhythm Heart Sounds: no murmur Extremities: no edema (trace) Gastrointestinal (Abdomen): normal bowel sounds, soft, nontender, no hepatosplenomegaly Results & Data Vital Signs (Past 12 Hours) Vital Signs Temp Pulse Pulse Resp BP Pulse Ox 10/01/18 07:55 36.7 C 66 14 112/70 98 09/30/18 23:20 36.3 C L 65 16 121/68 93 Laboratory Results Laboratory Tests 09/29/18 09/30/18 10/01/18 05:41 07:10 05:59 WBC 7.46 Hgb 8.4 L Hct 27.0 L Plt Count 208 Sodium 136 138 Potassium 4.1 4.1 Chloride 105 106 Carbon Dioxide 26 26 BUN 36 H 30 H Creatinine 2.33 H 2.05 H Glucose 73 67 L 10/01/18 05:59 WBC 8.18 Hgb 8.2 L Hct 25.8 L Plt Count 204 Sodium Potassium Chloride Carbon Dioxide BUN Creatinine Glucose
--- NOTE | 2018-10-01 14:25 | Infectious Disease Progress Nt ---
Date of Service October 01, 2018 Assessment & Plan (1) UTI (urinary tract infection): continue caspo, 7 days total. multiple DDI with fluconazole. continue zyvox for now. CT finding noted. will follow. (2) Coagulase-negative staphylococcal infection: Subjective had ct l spine after continued back pain reported. progressive inection L2/L3/L4 with persistent fluid collection. ortho following. no pain on my exam today. Remains on zyvox. creat remains elevated at 2. afebrile overnight. remains on Caspofungin for fungal uti. more alert today. denies cp, sob, cough. no n/v/d/abd pain, still with back pain, unchanged and controlled with pain meds. no leg pain, wbc 8.1. all remaining ros reviewed and are negative Physical Exam Constitutional: WD/WN, vitals as above Eyes: PERRL, conjunctivae normal, anicteric sclerae ENMT: external ear and nose normal, oropharynx normal Neck: normal visual inspection Respiratory: normal respiratory effort, lungs clear to auscultation Cardiovascular: RRR, no murmur, no edema Gastrointestinal (Abdomen): normal bowel sounds, soft, nontender, no hepatosplenomegaly Musculoskeletal: no cyanosis or clubbing, extremities motor strength 5/5 Skin: no rashes, warm and dry Psychiatric: A+Ox3, euthymic affect Results & Data Vital Signs (Past 12 Hours) Vital Signs Temp Pulse Resp BP Pulse Ox 10/01/18 07:55 36.7 C 66 14 112/70 98
[2018-10-01] MEDS: ACETAMINOPHEN 325 MG TAB PO PRN (15:58)
--- NOTE | 2018-10-01 16:45 | Hospitalist Progress Note ---
Date of Service October 01, 2018 Assessment & Plan (1) Altered mental status: resolved likely from multiple reasons for altered mental status: such as metabolic encephalopathy due to PAULA on CKD, chronic pain, chronic infection, and on narcotics Improved, and resolving, cont treat PAULA which has been stable/mproving Continue regimen of narcotics, pain management on the case, per recs: change to fentanyl patch, Continue current breakthrough oxycodone 5 mg every 6 however I increased from 5 mg to every 4 hrs Consider utilization of SNRI versus tricyclic antidepressants in the future to further augment descending pain regulation continue on Zyvox for coag negative staph for that he was on prior to this admission cont antifungal for treatment of Tiffany albica Uti for total 7 days which was started from September 29, last day will be october 05, 2018 Strongly encourage OOB, PT. OT (2) Acute kidney injury: PAULA on cKD Cr today is 2, yesterday was 2.3, was up to 2.8 on 09/22 was treated with IV fluids at [facility], little improvement in Cr Luna catheter in place, f/u Dr. Mathews for recommendations DC IVF, encourage oral intake hold nephrotoxins and dose medications accordingly stable Phosphorus 1.6 , replaced, (3) Coagulase-negative staphylococcal infection: continue on Zyvox was on Vanco but stopped due to PAULA f/u Dr. Ndiaye for further instructions (4) Post-operative pain: likely from sharp spasm like pains, also see above Has been on baclofen and OxyContin and Oxycodone, and change to fentanyl patch per pain management,l increased oxycodone from every 6 to every 4 because of uncontrolled breakthrough pain (5) Paraspinal abscess: see above for coag negative infection Patient not able to get MRI because of pacemaker, spine surgery will go to discuss with patient 's about the next step Lower back incisions, is opening, no drainage, surgeon saw it today feel it is healing nicely. T had surgery on 09/10/18, continue antibiotic, wound care (6) Chronic systolic heart failure: patient examines euvolemic, stable cont hold Lasix for time being given his PAULA monitor closely for volume overload (7) Urinary retention: continue luna, has been in for over 30 days, stable See above is treating fungal UTI, luna changed, on IV med of caspofungi, for total 7 days (8) Acute anemia: Hb has been dropping very slowly, transfuse 1 unit, today's hemoglobin 8.4, Discharge plan will be back to [facility] (9) Ischemic cardiomyopathy: (10) ICD (implantable cardioverter-defibrillator) in place: (11) Diabetes mellitus, type 2: diabetic diet Novolog Subjective Report no pain when in sleep, however when wake up Feel significant pain in lower back , which is comes and goes, but the pain has been lasting 1 hour when I see him. He also worry about how he can go to residential rehab if having so much pain, Review of Systems 2 Review of Systems: All systems reviewed & are unremarkable except as noted in HPI & below Generalized weakness, no appetite, Physical Exam Physical Exam: general Appearance: Uncomfortable, mild pale, tired, anxious, WD/WN, no apparent distress, Eyes: normal inspection, PERRL, EOMI, sclerae normal ENT: normal ENT inspection, hearing grossly normal, pharynx normal Neck: supple, no adenopathy, thyroid normal, no JVD, no carotid bruits, trachea midline Respiratory/Chest: chest non-tender, normal breath sounds, no accessory muscle use, no rales, wheezing Cardiovascular: regular rate, rhythm, no JVD, no murmur Abdomen: normal bowel sounds, non tender, soft, no organomegaly, luna in place Extremities: Middle and lower back has incisions from recent surgery, no drainage no erythema Lower extremities 1+ edema, no calf tenderness, normal capillary refill, pelvis stable, joint has no limited range of motion, capillary refill is normal, no cyanosis clubbing Neurologic/Psychiatric: 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 as tested, Skin: pale , warm/dry, no rash Lymphatic: no adenopathy Results & Data Vital Signs (Past 12 Hours) Vital Signs Temp Pulse Pulse Resp BP Pulse Ox 10/01/18 15:45 36.6 C 71 20 156/45 H 96 10/01/18 07:55 36.7 C 66 14 112/70 98 Laboratory Results - last 24 hr 09/28/18 09/30/18 09/30/18 10:51 16:57 20:08 WBC RBC Hgb Hct MCV MCH MCHC RDW Std Deviation RDW Coeff of Norbert Plt Count MPV Sodium Potassium Chloride Carbon Dioxide Anion Gap BUN Creatinine Est Cr Clr Drug Dosing Est GFR ( Amer) Est GFR (Non-Af Amer) BUN/Creatinine Ratio Glucose POC Glucose 99 158 H Calcium Phosphorus Magnesium Urine Color Urine Appearance Urine pH Ur Specific [place] Urine Protein Urine Glucose (UA) Urine Ketones Urine Blood Urine Nitrite Urine Bilirubin Urine Urobilinogen Ur Leukocyte Esterase Urine WBC (Auto) Urine RBC (Auto) U Hyaline Cast (Auto) U Epithel Cells (Auto) Urine Bacteria (Auto) Crossmatch See Detail 10/01/18 10/01/18 10/01/18 05:55 05:59 05:59 WBC 8.18 RBC 3.07 L Hgb 8.2 L Hct 25.8 L MCV 84.0 MCH 26.7 MCHC 31.8 L RDW Std Deviation 50.1 H RDW Coeff of Norbert 16.3 H Plt Count 204 MPV 8.6 Sodium 138 Potassium 4.1 Chloride 106 Carbon Dioxide 26 Anion Gap 6.0 BUN 30 H Creatinine 2.05 H Est Cr Clr Drug Dosing 39.9 Est GFR ( Amer) 38.3 Est GFR (Non-Af Amer) 33.0 BUN/Creatinine Ratio 14.5 Glucose 67 L POC Glucose Calcium 8.8 Phosphorus 3.6 Magnesium 2.2 Urine Color Yellow Urine Appearance Clear Urine pH 5.0 Ur Specific [place] 1.018 Urine Protein Negative Urine Glucose (UA) Negative Urine Ketones Negative Urine Blood 2+ H Urine Nitrite Negative Urine Bilirubin Negative Urine Urobilinogen Negative Ur Leukocyte Esterase 1+ H Urine WBC (Auto) 5-10 H Urine RBC (Auto) >30 H U Hyaline Cast (Auto) 1-5 U Epithel Cells (Auto) 10-20 H Urine Bacteria (Auto) Negative Crossmatch 10/01/18 10/01/18 10/01/18 08:02 08:37 11:56 WBC RBC Hgb Hct MCV MCH MCHC RDW Std Deviation RDW Coeff of Norbert Plt Count MPV Sodium Potassium Chloride Carbon Dioxide Anion Gap BUN Creatinine Est Cr Clr Drug Dosing Est GFR ( Amer) Est GFR (Non-Af Amer) BUN/Creatinine Ratio Glucose POC Glucose 86 101 H 158 H Calcium Phosphorus Magnesium Urine Color Urine Appearance Urine pH Ur Specific [place] Urine Protein Urine Glucose (UA) Urine Ketones Urine Blood Urine Nitrite Urine Bilirubin Urine Urobilinogen Ur Leukocyte Esterase Urine WBC (Auto) Urine RBC (Auto) U Hyaline Cast (Auto) U Epithel Cells (Auto) Urine Bacteria (Auto) Crossmatch
--- NOTE | 2018-10-01 17:21 | Orthopedic Progress Note ---
Date of Service October 01, 2018 Assessment & Plan (1) Weakness of lower extremity: This time we will continue to attempt transfers from bed to chair. We will have discussions with the family regarding further treatment plans. Present on Admission?: Yes Subjective Patient is sitting in bed. He states his back pain is well controlled at this time. He denies any leg pain. He does note discomfort when trying to sit up or moving in bed across the lumbar spine. Physical Exam Physical Exam: On exam is excellent plantar flexion dorsiflexion sensation light touch and cold intact. Still deficits to the quadriceps bilaterally. Incision clean dry and intact no erythema. Results & Data Vital Signs (Past 12 Hours) Vital Signs Temp Pulse Pulse Resp BP Pulse Ox 10/01/18 15:45 36.6 C 71 20 156/45 H 96 10/01/18 07:55 36.7 C 66 14 112/70 98
[2018-10-01] MEDS: TAMSULOSIN HCL 0.4 MG CAP PO SCH (21:33)
[2018-10-01] MEDS: ATORVASTATIN 40 MG TAB PO SCH (21:37)
[2018-10-02 05:59] LABS: Hematocrit (blood only) 24.7 % (42-52); Hemoglobin 7.9 g/dL (14.0-18.0); Mean Corpuscular Volume 84.3 fL (80-100); Mean Platelet Volume 8.5 fL (7.4-10.4); Platelet Count 171 K/uL (130-400); RDW Coefficient of Variation 16.2 % (11.5-14.5); RDW Standard Deviation 50.3 fL (36.4-46.3); Red Blood Count 2.93 M/uL (4.7-6.1); White Blood Count 6.08 K/uL (4.8-10.8)
[2018-10-02] MEDS: LINEZOLID 600 MG TAB PO SCH ×2 (06:22→20:05)
[2018-10-02] MEDS: HEPARIN SOD 5,000 UNIT/0.5 ML VIAL SQ SCH ×3 (06:25→21:29)
[2018-10-02 06:45] LABS: BUN Creatinine Ratio 15.1 (10-20); Calcium 8.5 mg/dl (8.5-10.1); Creatinine Clr Calc Pharmacy 40.7 ml/min; Est GFR (African American) 39.2; Est GFR (Non-African American) 33.8; Potassium 3.9 mmol/L (3.5-5.1)
[2018-10-02] MEDS: INSULIN ASPART 100 UNITS/ML 3 ML PEN SC SCH ×4 (09:05→21:29)
[2018-10-02] MEDS: CHECK FENTANYL PATCH PLACEMENT SCH ×2 (09:06→15:50)
[2018-10-02] MEDS: fentaNYL 12 MCG/HR TDSY TD SCH (09:06)
[2018-10-02] MEDS: OXYCODONE HCL IR 5 MG TAB (IMMEDIATE RELEASE) PO PRN ×3 (09:08→23:22)
[2018-10-02] MEDS: INSULIN DETEMIR FLEXPEN/FLEX TOUCH 100 UNITS/ML 3ML SQ SCH ×2 (09:16→21:30)
[2018-10-02] MEDS: FINASTERIDE 5 MG TAB PO SCH (09:21)
[2018-10-02] MEDS: MAGNESIUM OXIDE 400 MG TAB PO SCH (09:21)
[2018-10-02] MEDS: CYANOCOBALAMIN 500 MCG TABLET (VITAMIN B-12) PO SCH (09:21)
[2018-10-02] MEDS: CLOPIDOGREL BISULFATE 75 MG TAB PO SCH (09:21)
[2018-10-02] MEDS: ASPIRIN 81 MG ECTAB PO SCH (09:21)
[2018-10-02] MEDS: CHOLECALCIFEROL 1,000 UNITS TAB PO SCH (09:22)
[2018-10-02] MEDS: SENNA 17.6 MG/10 ML UDP PO SCH (09:22)
[2018-10-02] MEDS: METOPROLOL SUCC 50MG EXT REL TAB PO SCH (09:22)
--- NOTE | 2018-10-02 09:25 | Nephrology Progress Note ---
Date of Service October 02, 2018 Assessment & Plan (1) Acute kidney injury: -- 09/27/[address]: Horseshoe kidney. No hydronephrosis -- Urinalysis with blood due to chronic indwelling luna catheter and funguria. No protein on urinalysis -- Patient remains nonoliguric. Creatinine is trending down off Vancomycin therapy -- Will provide gentle hydration w/ 0.9NS at 80 cc/hr x 2 L, then stop -- Creatinine has improved from 2.85 to 2.0. Recovery will likely be prolonged. Recommend monitoring volume status & serial PRP -- No further Nephrology evaluation at this time. Will sign off. Please call if further assistance is needed (2) Chronic indwelling Luna catheter: -- Luna catheter changed out due to funguria 09/29 -- Patient is now on Caspofungin therapy as per ID (3) Delirium: -- Oriented to self and place this am -- On narcotic analgesics due to recent back surgery Subjective Mr. Cooper was seen & examined in his hospital room this morning. He complains of back and shoulder discomfort. He reports a poor appetite. He has not been eating or drinking much. He does complain of thirst. support staff notes that his blood sugar has been low Review of Systems Respiratory: no dyspnea Cardiovascular: no chest pain at rest Gastrointestinal: no vomiting and no diarrhea/loose stools Physical Exam Constitutional: + ill appearing Eyes: PERRL Neck: trachea midline, no thyromegaly Respiratory: normal respiratory effort, lungs clear to auscultation no respiratory distress Cardiovascular: Rate/Rhythm: regular rate and regular rhythm Heart Sounds: no murmur Extremities: no edema Gastrointestinal (Abdomen): normal bowel sounds, soft, nontender, no hepatosplenomegaly Results & Data Vital Signs (Past 12 Hours) Vital Signs Temp Pulse Resp BP Pulse Ox 10/02/18 09:19 71 148/73 H 10/02/18 07:18 36.9 C 55 L 16 125/70 99 10/01/18 23:06 36.8 C 62 16 130/72 98 Laboratory Results Laboratory Tests 10/01/18 10/02/18 10/02/18 05:55 05:37 05:37 WBC 6.08 Hgb 7.9 L Hct 24.7 L Plt Count 171 Sodium 136 Potassium 3.9 Chloride 105 Carbon Dioxide 27 BUN 30 H Creatinine 2.01 H Glucose 60 L Urine Color Yellow Urine Appearance Clear Urine pH 5.0 Ur Specific [place] 1.018 Urine Protein Negative Urine Glucose (UA) Negative Urine Blood 2+ H Urine RBC (Auto) >30 H U Hyaline Cast (Auto) 1-5 U Epithel Cells (Auto) 10-20 H Urine Bacteria (Auto) Negative
[2018-10-02] MEDS: SODIUM CHLORIDE 0.9% 1000ML 1,000 ML IV SCH ×2 (10:30→22:12)
[2018-10-02] MEDS: CASPOFUNGIN 50 MG in SODIUM CHLORIDE 0.9% 250 ML IV SCH (10:50)
--- NOTE | 2018-10-02 11:04 | Infectious Disease Progress Nt ---
Date of Service October 02, 2018 Assessment & Plan (1) UTI (urinary tract infection): continue caspo, 7 days total. multiple DDI with fluconazole. continue zyvox for now. Will likely require prolonged course of Zyvox. He has plans to follow with Dr. Ndiaye in the office post discharge from the hospital. Will continue to follow (2) Coagulase-negative staphylococcal infection: Subjective The patient is resting comfortably on examination he awakens easily. He states that he was having some back pain recently received pain medication. He currently denies any back pain. He does state that his back is for does feel worse with movement but when he is resting in bed he is pain-free. He denies any fevers or chills. He continues on intravenous caspofungin for fungal UTI. Her repeat urinalysis was done yesterday and is much improved. He had 5-10 WBCs and no bacteria noted. He remains on Zyvox for previous treatment lumbar infection. He is being followed by Orthopedic surgery. There are no plans for any additional surgical intervention at this time. His blood cultures from the remain negative in both sets. He is tolerating antibiotics well. He denies any fevers or chills he denies any pain. He denies any abdominal pain nausea vomiting or diarrhea. He is lethargic on my examination but answers questions appropriately. Review of Systems Review of Systems: All systems reviewed & are unremarkable except as noted in HPI & below Physical Exam Constitutional: WD/WN, vitals as above Eyes: PERRL, conjunctivae normal, anicteric sclerae ENMT: external ear and nose normal, oropharynx normal Neck: normal visual inspection Respiratory: normal respiratory effort, lungs clear to auscultation Cardiovascular: RRR, no murmur, no edema Gastrointestinal (Abdomen): normal bowel sounds, soft, nontender, no hepatosplenomegaly Musculoskeletal: no cyanosis or clubbing, extremities motor strength 5/5 Skin: no rashes, warm and dry Psychiatric: A+Ox3, euthymic affect Results & Data Vital Signs (Past 12 Hours) Vital Signs Temp Pulse Resp BP Pulse Ox 10/02/18 09:19 71 148/73 H 10/02/18 07:18 36.9 C 55 L 16 125/70 99 10/01/18 23:06 36.8 C 62 16 130/72 98 Laboratory Results Microbiology 09/27/18 Unknown Urine,Straight Cath Urine Culture - Final Tiffany albicans 09/27/18 12:05 Blood Blood Culture - Preliminary No growth to date. 09/27/18 11:55 Blood Blood Culture - Preliminary No growth to date.
--- NOTE | 2018-10-02 11:51 | Orthopedic Progress Note ---
Date of Service October 02, 2018 Assessment & Plan (1) Leg weakness, bilateral: This time will begin transfers from bed to chair. Hopefully he will be up to tolerance throughout the next several days and transfer to rehab unit. However if he declines and I have had this discussion with his . We may need to consider tertiary care center. He may require further debridement of the lumbar spine in the area of the infection. Clearly this would be a massive undertaking in light of his health history would be considerably risky. Present on Admission?: Yes Subjective Patient states his back pain is controlled at this time. In fact he notes it to be a 1-2 at most. He denies any numbness or tingling in lower extremities. Physical Exam Physical Exam: On exam he is resting on his side. He can demonstrate significant weakness to quadriceps plantar flexion dorsiflexion intact. Incision is clean dry and intact no erythema or drainage. Results & Data Vital Signs (Past 12 Hours) Vital Signs Temp Pulse Resp BP Pulse Ox 10/02/18 09:19 71 148/73 H 10/02/18 07:18 36.9 C 55 L 16 125/70 99
--- NOTE | 2018-10-02 17:14 | Hospitalist Progress Note ---
Date of Service October 02, 2018 Assessment & Plan (1) Altered mental status: resolved likely from multiple reasons for altered mental status: such as metabolic encephalopathy due to PAULA on CKD, chronic pain, chronic infection, and on narcotics Improved, and resolving, cont treat PAULA which has been stable/improving Continue regimen of narcotics, pain management on the case, per recs: change to fentanyl patch, Continue current breakthrough oxycodone 5 mg every 6 however increased from 5 mg to every 4 hrs yesterday Consider utilization of SNRI versus tricyclic antidepressants in the future to further augment descending pain regulation continue on Zyvox for coag negative staph for that he was on prior to this admission cont antifungal for treatment of Tiffany albica Uti for total 7 days which was started from September 29, last day will be october 05, 2018 Strongly encourage LUISA, PT. OT (2) Acute kidney injury: PAULA on cKD Cr today is 2, yesterday was 2.3, was up to 2.8 on 09/22 was treated with IV fluids at [facility], little improvement in Cr Luna catheter in place, per Dr. Mathews, today will provide gentle hydration w/ 0.9NS at 80 cc/hr x 2 L, then stop, Recovery will likely be prolonged. Recommend monitoring volume status & serial PRP No further Nephrology evaluation at this time. hold nephrotoxins and dose medications accordingly stable (3) Coagulase-negative staphylococcal infection: continue on Zyvox was on Vanco but stopped due to PAULA f/u Dr. Ndiaye for further instructions (4) Post-operative pain: likely from sharp spasm like pains, also see above Has been on baclofen and OxyContin and Oxycodone, and change to fentanyl patch per pain management, l increased oxycodone from every 6 to every 4 because of uncontrolled kiko kthrough pain, however want to be cautious with narcotic pain medicine per Dr. Morales: encourage transfers from bed to chair. Hopefully he will be up to tolerance throughout the next several days and transfer to rehab unit. However if he declines, per Dr. Morales's discussion with his ., may need to consider tertiary care center. He may require further debridement of the lumbar spine in the area of the infection. (5) Paraspinal abscess: see above had surgery on 09/10/18, continue antibiotic, wound care (6) Chronic systolic heart failure: patient examines euvolemic, stable cont hold Lasix , watch for volume (7) Urinary retention: continue luna, has been in for over 30 days, stable See above is treating fungal UTI, luna changed, on IV med of caspofungi, for total 7 days (8) Acute anemia: Hb has been dropping very slowly, transfuse 1 unit, today's hemoglobin 7.9 fro 8.4 Discharge plan will be back to [facility] (9) Ischemic cardiomyopathy: (10) ICD (implantable cardioverter-defibrillator) in place: (11) Diabetes mellitus, type 2: diabetic diet Novolog Subjective Reported mild pain when he lying on his side, the pain level 1 out of 10 however when lying on his back the pain is significant and getting worse, he is less anxious, feeling generally a little bit better, denies fever and chills Review of Systems Review of Systems: positive weakness, or fatigue Respiratory: no cough, sputum, wheezing, Cardiac: No chest pain, No orthopnea Abdomen: No pain, No nausea, No vomiting, No diarrhea, : No dysuria, No urinary frequency, Neurologic: No paralysis, Psychiatric: mild anxiety, Skin: No rash, No itch, No new/changing skin lesions, No color change, No bleeding Physical Exam Physical Exam: general Appearance: Uncomfortable, mild pale, tired, mild anxious, WD/WN, no apparent distress, generally looks a little bit better than yesterday Eyes: normal inspection, PERRL, EOMI, sclerae normal ENT: normal ENT inspection, hearing grossly normal, pharynx normal Neck: supple, no adenopathy, thyroid normal, no JVD, no carotid bruits, trachea midline Respiratory/Chest: chest non-tender, normal breath sounds, no accessory muscle use, no rales, wheezing Cardiovascular: regular rate, rhythm, no JVD, no murmur Abdomen: normal bowel sounds, non tender, soft, no organomegaly, ulna in place Extremities: Middle and lower back has incisions from recent surgery, no drainage no erythema Lower extremities trace edema, no calf tenderness, normal capillary refill, pelvis stable, joint has no limited range of motion, capillary refill is normal, no cyanosis clubbing Neurologic/Psychiatric: prosthodontist/educator II-XII nml as tested, Skin: pale , see above Lymphatic: no adenopathy Results & Data Vital Signs (Past 12 Hours) Vital Signs Temp Pulse Resp BP Pulse Ox 10/02/18 15:30 36.4 C L 76 18 123/60 99 10/02/18 09:19 71 148/73 H 10/02/18 07:18 36.9 C 55 L 16 125/70 99
[2018-10-02] MEDS: TAMSULOSIN HCL 0.4 MG CAP PO SCH (20:08)
[2018-10-02] MEDS: ATORVASTATIN 40 MG TAB PO SCH (20:08)
[2018-10-03] MEDS: OXYCODONE HCL IR 5 MG TAB (IMMEDIATE RELEASE) PO PRN ×3 (05:49→17:10)
[2018-10-03] MEDS: HEPARIN SOD 5,000 UNIT/0.5 ML VIAL SQ SCH ×3 (05:51→21:54)
[2018-10-03 06:23] LABS: Basophils # (auto) 0.03 K/uL (0-0.2); Basophils % (auto) 0.5 %; Eosinophils # (auto) 0.17 K/uL (0-0.5); Eosinophils % (auto) 2.7 %; Hematocrit (blood only) 24.8 % (42-52); Hemoglobin 7.9 g/dL (14.0-18.0); Immature Granulocytes # (auto) 0.04 K/uL (0.00-0.02); Immature Granulocytes % (auto) 0.6 %; Lymphocytes # (auto) 0.81 K/uL (1.2-3.4); Lymphocytes % (auto) 12.7 %; Mean Corpuscular Hgb Conc 31.9 g/dL (32-36); Mean Corpuscular Volume 84.4 fL (80-100); Mean Platelet Volume 8.8 fL (7.4-10.4); Monocytes % (auto) 9.4 %; Neutrophils # (auto) 4.71 K/uL (1.4-6.5); Neutrophils % (auto) 74.1 %; Platelet Count 166 K/uL (130-400); RDW Coefficient of Variation 16.2 % (11.5-14.5); RDW Standard Deviation 49.6 fL (36.4-46.3); Red Blood Count 2.94 M/uL (4.7-6.1); White Blood Count 6.36 K/uL (4.8-10.8)
[2018-10-03] MEDS: LINEZOLID 600 MG TAB PO SCH ×2 (06:31→19:59)
[2018-10-03 06:58] LABS: BUN Creatinine Ratio 13.9 (10-20); Calcium 8.3 mg/dl (8.5-10.1); Creatinine Clr Calc Pharmacy 43.5 ml/min; Est GFR (African American) 42.5; Est GFR (Non-African American) 36.7; Potassium 3.9 mmol/L (3.5-5.1)
[2018-10-03 07:05] LABS: RBC Morphology Unremarkable
[2018-10-03] MEDS: BACLOFEN 10 MG TAB PO PRN (07:37)
[2018-10-03] MEDS: CHECK FENTANYL PATCH PLACEMENT SCH ×3 (07:37→16:00)
[2018-10-03] MEDS: INSULIN ASPART 100 UNITS/ML 3 ML PEN SC SCH ×4 (09:19→21:54)
[2018-10-03] MEDS: INSULIN DETEMIR FLEXPEN/FLEX TOUCH 100 UNITS/ML 3ML SQ SCH ×2 (09:20→21:53)
[2018-10-03] MEDS: METOPROLOL SUCC 50MG EXT REL TAB PO SCH (09:21)
[2018-10-03] MEDS: CYANOCOBALAMIN 500 MCG TABLET (VITAMIN B-12) PO SCH (09:21)
[2018-10-03] MEDS: SENNA 17.6 MG/10 ML UDP PO SCH (09:21)
[2018-10-03] MEDS: CHOLECALCIFEROL 1,000 UNITS TAB PO SCH (09:22)
[2018-10-03] MEDS: MAGNESIUM OXIDE 400 MG TAB PO SCH (09:22)
[2018-10-03] MEDS: FINASTERIDE 5 MG TAB PO SCH (09:22)
[2018-10-03] MEDS: CLOPIDOGREL BISULFATE 75 MG TAB PO SCH (09:22)
[2018-10-03] MEDS: ASPIRIN 81 MG ECTAB PO SCH (09:23)
[2018-10-03] MEDS: CASPOFUNGIN 50 MG in SODIUM CHLORIDE 0.9% 250 ML IV SCH (10:23)
--- NOTE | 2018-10-03 11:12 | Infectious Disease Progress Nt ---
Date of Service October 03, 2018 Assessment & Plan (1) UTI (urinary tract infection): continue caspo, 7 days total. multiple DDI with fluconazole. continue zyvox for now. Will likely require prolonged course of Zyvox. He has plans to follow with Dr. Ndiaye in the office post discharge from the hospital. Will continue to follow (2) Coagulase-negative staphylococcal infection: Subjective resting in bed, more awake today. no f/c tolerating abx, caspo. no f/c no abd pain, no n/v/d. unchanged back pain, no worse. ortho following. blood cultures negative and final. Review of Systems Review of Systems: All systems reviewed & are unremarkable except as noted in HPI & below Physical Exam Constitutional: WD/WN, vitals as above Eyes: PERRL, conjunctivae normal, anicteric sclerae ENMT: external ear and nose normal, oropharynx normal Neck: normal visual inspection Respiratory: normal respiratory effort, lungs clear to auscultation Cardiovascular: RRR, no murmur, no edema Gastrointestinal (Abdomen): normal bowel sounds, soft, nontender, no hepatosplenomegaly Musculoskeletal: no cyanosis or clubbing, extremities motor strength 5/5 Skin: no rashes, warm and dry Psychiatric: A+Ox3, euthymic affect Results & Data Vital Signs (Past 12 Hours) Vital Signs Temp Pulse Pulse Resp BP Pulse Ox 10/03/18 07:55 36.4 C L 69 19 120/70 97 10/02/18 23:23 36.8 C 65 20 126/69 99 Laboratory Results Microbiology 09/27/18 12:05 Blood Blood Culture - Final No growth 09/27/18 11:55 Blood Blood Culture - Final No growth 09/27/18 Unknown Urine,Straight Cath Urine Culture - Final Tiffany albicans
--- NOTE | 2018-10-03 15:07 | Orthopedic Progress Note ---
Date of Service October 03, 2018 Assessment & Plan (1) Coagulase-negative staphylococcal infection: This time we can continue to initiate transfers at least sitting up in bed for as long as possible. He is remarkably deconditioned which undoubtedly contributes to his pain. Present on Admission?: Yes Subjective Patient today's complaining of axial back pain. No leg pain. Physical Exam Physical Exam: On exam he is sitting up in bed. Incision and back is clean dry and intact no erythema or drainage. He does appear comfortable at this time. Results & Data Vital Signs (Past 12 Hours) Vital Signs Temp Pulse Resp BP Pulse Ox 10/03/18 07:55 36.4 C L 69 19 120/70 97
--- NOTE | 2018-10-03 18:54 | Hospitalist Progress Note ---
Date of Service October 03, 2018 Assessment & Plan (1) Altered mental status: resolved likely from multiple reasons for altered mental status: such as metabolic encephalopathy due to PAULA on CKD, chronic pain, chronic infection, and on narcotics (2) Acute kidney injury: PAULA on cKD Improved. Creatinine down to 1.8. Appreciate nephrology consultation. Continue serial lab studies ns accordingly (3) Coagulase-negative staphylococcal infection: continue on Zyvox was on Vanco but stopped due to PAULA f/u Dr. Ndiaye for further instructions (4) Post-operative pain: Continue narcotic therapy for chronic pain management. Appreciate orthopedic consultation and management of the infection. (5) Paraspinal abscess: see above had surgery on 09/10/18, continue antibiotic, wound care (6) Chronic systolic heart failure: patient examines euvolemic, stable cont hold Lasix , watch for volume (7) Urinary retention: continue luna, has been in for over 30 days, stable See above is treating fungal UTI, luna changed, on IV med of caspofungin, for total 7 days (8) Acute anemia: The patient received 1 unit of packed red blood cells this admission. Serial lab studies. (9) Ischemic cardiomyopathy: (10) ICD (implantable cardioverter-defibrillator) in place: (11) Diabetes mellitus, type 2: diabetic diet Novolog (12) Acute UTI (urinary tract infection): Fungal elements isolated. Continue intravenous caspofungin through October 05. Subjective Infectious disease and orthopedic surgery input noted. The patient complaining of lower back pain which appears to be chronic. Creatinine has improved to 1.8. He remains on caspofungin through October 05. Continue oral Zyvox therapy for coagulation negative staph paraspinal infection. Review of Systems Review of Systems: All systems reviewed & are unremarkable except as noted in HPI & below Musculoskeletal: Lower midline back pain which appears to be chronic in nature and undoubtedly aggravated by recent surgical procedure and infection Physical Exam Constitutional: WD/WN, vitals as above Eyes: PERRL, conjunctivae normal, anicteric sclerae ENMT: external ear and nose normal, oropharynx normal Neck: trachea midline, no thyromegaly Respiratory: normal respiratory effort, lungs clear to auscultation Cardiovascular: RRR, no murmur, no edema Gastrointestinal (Abdomen): normal bowel sounds, soft, nontender, no hepatosplenomegaly Skin: no rashes, warm and dry Neurologic: CN's II-XI intact bilaterally; no focal motor deficits Results & Data Vital Signs (Past 12 Hours) Vital Signs Temp Pulse Pulse Resp BP Pulse Ox 10/03/18 15:36 36.4 C L 62 18 126/70 99 10/03/18 07:55 36.4 C L 69 19 120/70 97 Laboratory Results 10/03/18 05:40 10/03/18 05:40
[2018-10-03] MEDS: TAMSULOSIN HCL 0.4 MG CAP PO SCH (21:56)
[2018-10-03] MEDS: ATORVASTATIN 40 MG TAB PO SCH (21:56)
[2018-10-04] MEDS: CHECK FENTANYL PATCH PLACEMENT SCH ×3 (00:04→15:09)
[2018-10-04] MEDS: OXYCODONE HCL IR 5 MG TAB (IMMEDIATE RELEASE) PO PRN ×3 (01:14→16:23)
[2018-10-04] MEDS: BACLOFEN 10 MG TAB PO PRN (03:34)
[2018-10-04] MEDS: LINEZOLID 600 MG TAB PO SCH ×2 (06:06→18:47)
[2018-10-04] MEDS: HEPARIN SOD 5,000 UNIT/0.5 ML VIAL SQ SCH ×3 (06:06→21:32)
[2018-10-04 06:59] LABS: BUN Creatinine Ratio 12.8 (10-20); Calcium 8.3 mg/dl (8.5-10.1); Creatinine Clr Calc Pharmacy 46.4 ml/min; Est GFR (Non-African American) 39.7; Potassium 3.9 mmol/L (3.5-5.1)
[2018-10-04] MEDS: FINASTERIDE 5 MG TAB PO SCH (09:01)
[2018-10-04] MEDS: METOPROLOL SUCC 50MG EXT REL TAB PO SCH (09:01)
[2018-10-04] MEDS: SENNA 17.6 MG/10 ML UDP PO SCH (09:01)
[2018-10-04] MEDS: ASPIRIN 81 MG ECTAB PO SCH (09:01)
[2018-10-04] MEDS: CYANOCOBALAMIN 500 MCG TABLET (VITAMIN B-12) PO SCH (09:02)
[2018-10-04] MEDS: INSULIN ASPART 100 UNITS/ML 3 ML PEN SC SCH ×4 (09:02→21:35)
[2018-10-04] MEDS: CHOLECALCIFEROL 1,000 UNITS TAB PO SCH (09:02)
[2018-10-04] MEDS: CLOPIDOGREL BISULFATE 75 MG TAB PO SCH (09:02)
[2018-10-04] MEDS: MAGNESIUM OXIDE 400 MG TAB PO SCH (09:02)
[2018-10-04] MEDS: INSULIN DETEMIR FLEXPEN/FLEX TOUCH 100 UNITS/ML 3ML SQ SCH ×2 (09:03→21:29)
--- NOTE | 2018-10-04 09:49 | Orthopedic Progress Note ---
Date of Service October 04, 2018 Assessment & Plan (1) Leg weakness, bilateral: This time we will continue to emphasize transfers hopefully to a chair. Will discuss with his family possible return to surgery for stabilization L1 to the sacrum to hopefully provide some stability and pain relief. If this were to occur to be possibly as soon as next week. Present on Admission?: Yes Subjective Patient continues to have back pain with motion. He is able to sit up yesterday for a very short period of time. Physical Exam Physical Exam: Physical exam essentially unchanged. He is alert and oriented this morning. Results & Data Vital Signs (Past 12 Hours) Vital Signs Temp Pulse Pulse Resp BP Pulse Ox 10/04/18 06:58 36.5 C 75 16 134/79 100 10/03/18 23:08 36.5 C 66 18 145/74 H 99
[2018-10-04] MEDS: CASPOFUNGIN 50 MG in SODIUM CHLORIDE 0.9% 250 ML IV SCH (11:01)
[2018-10-04] MEDS: POLYETHYLENE (MIRALAX) 17 GM PACK PO PRN (13:33)
--- NOTE | 2018-10-04 14:27 | Hospitalist Progress Note ---
Date of Service October 04, 2018 Assessment & Plan (1) Altered mental status: resolved likely from multiple reasons for altered mental status: such as metabolic encephalopathy due to PAULA on CKD, chronic pain, chronic infection, and on narcotics (2) Acute kidney injury: PAULA on cKD Improved. Creatinine down to 1.7. Appreciate nephrology consultation. Continue serial lab studies (3) Coagulase-negative staphylococcal infection: continue on Zyvox was on Vanco but stopped due to PAULA f/u Dr. Ndiaye for further instructions (4) Post-operative pain: Continue narcotic therapy for chronic pain management. Appreciate orthopedic consultation and management of the infection. Fentanyl dosage increased today to 25 mcg patch every 3 days (5) Paraspinal abscess: see above had surgery on 09/10/18, continue antibiotic, wound care (6) Chronic systolic heart failure: patient examines euvolemic, stable cont hold Lasix , watch for volume (7) Urinary retention: continue luna, has been in for over 30 days, stable See above is treating fungal UTI, luna changed, on IV med of caspofungin, for total 7 days (8) Acute anemia: The patient received 1 unit of packed red blood cells this admission. Serial lab studies. (9) Ischemic cardiomyopathy: Continue current medical management (10) ICD (implantable cardioverter-defibrillator) in place: Stable (11) Diabetes mellitus, type 2: diabetic diet Novolog (12) Acute UTI (urinary tract infection): Fungal elements isolated. Continue intravenous caspofungin through October 05. Subjective The patient continues to complain of low back pain. Fentanyl dosage has been increased. Orthopedic entry noted. Further lumbar surgical intervention being contemplated. He will continue on intravenous caspofungin through tomorrow. Creatinine is down to 1.7 and continues to decline towards normal baseline. Review of Systems Review of Systems: All systems reviewed & are unremarkable except as noted in HPI & below Constitutional: + fatigue and + weakness; no fever, no chills and no sweats Respiratory: + dyspnea on exertion; no cough and no dyspnea Genitourinary: + difficulty urinating (luna in place) Musculoskeletal: + back pain (severe, gets sharp muscle spasms) Lumbar pain at rest and with movement Physical Exam Constitutional: WD/WN, vitals as above Eyes: PERRL, conjunctivae normal, anicteric sclerae ENMT: external ear and nose normal, oropharynx normal Neck: trachea midline, no thyromegaly Respiratory: normal respiratory effort, lungs clear to auscultation Cardiovascular: RRR, no murmur, no edema Gastrointestinal (Abdomen): normal bowel sounds, soft, nontender, no hepatosplenomegaly Skin: no rashes, warm and dry Neurologic: CN's II-XI intact bilaterally; no focal motor deficits Results & Data Vital Signs (Past 12 Hours) Vital Signs Temp Pulse Resp BP Pulse Ox 10/04/18 06:58 36.5 C 75 16 134/79 100 Laboratory Results 10/03/18 05:40 10/04/18 05:51
[2018-10-04] MEDS: fentaNYL 25 MCG/HR TDSY TD SCH (14:53)
[2018-10-04] MEDS ORDERED: CHECK FENTANYL PATCH PLACEMENT SCH (16:00)
[2018-10-04] MEDS: TAMSULOSIN HCL 0.4 MG CAP PO SCH ×2 (21:28→21:52)
[2018-10-04] MEDS: ATORVASTATIN 40 MG TAB PO SCH ×2 (21:29→21:52)
[2018-10-05] MEDS: CHECK FENTANYL PATCH PLACEMENT SCH ×4 (00:06→23:14)
[2018-10-05] MEDS: OXYCODONE HCL IR 5 MG TAB (IMMEDIATE RELEASE) PO PRN ×2 (03:09→21:38)
[2018-10-05] MEDS: HEPARIN SOD 5,000 UNIT/0.5 ML VIAL SQ SCH ×3 (06:21→21:32)
[2018-10-05] MEDS: LINEZOLID 600 MG TAB PO SCH ×2 (06:23→18:37)
[2018-10-05 06:53] LABS: BUN Creatinine Ratio 12.3 (10-20); Calcium 8.2 mg/dl (8.5-10.1); Creatinine Clr Calc Pharmacy 45.6 ml/min; Est GFR (African American) 43.9; Est GFR (Non-African American) 37.9; Potassium 3.9 mmol/L (3.5-5.1)
[2018-10-05] MEDS: FINASTERIDE 5 MG TAB PO SCH (09:43)
[2018-10-05] MEDS: METOPROLOL SUCC 50MG EXT REL TAB PO SCH (09:43)
[2018-10-05] MEDS: MAGNESIUM OXIDE 400 MG TAB PO SCH (09:43)
[2018-10-05] MEDS: CYANOCOBALAMIN 500 MCG TABLET (VITAMIN B-12) PO SCH (09:43)
[2018-10-05] MEDS: ASPIRIN 81 MG ECTAB PO SCH (09:43)
[2018-10-05] MEDS: CLOPIDOGREL BISULFATE 75 MG TAB PO SCH (09:43)
[2018-10-05] MEDS: CHOLECALCIFEROL 1,000 UNITS TAB PO SCH (09:43)
[2018-10-05] MEDS: INSULIN ASPART 100 UNITS/ML 3 ML PEN SC SCH ×4 (09:44→20:51)
[2018-10-05] MEDS: SENNA 17.6 MG/10 ML UDP PO SCH (09:44)
[2018-10-05] MEDS: INSULIN DETEMIR FLEXPEN/FLEX TOUCH 100 UNITS/ML 3ML SQ SCH ×2 (09:44→21:33)
[2018-10-05] MEDS: POLYETHYLENE (MIRALAX) 17 GM PACK PO PRN (09:47)
[2018-10-05] MEDS: SODIUM CHLORIDE 0.9% 1000ML 1,000 ML IV SCH ×2 (09:48→23:13)
[2018-10-05] MEDS ORDERED: BISACODYL 10 MG SUPP PR STA (10:22)
[2018-10-05] MEDS ORDERED: BISACODYL 10 MG SUPP PR PRN (10:23)
--- NOTE | 2018-10-05 10:42 | Orthopedic Progress Note ---
Date of Service October 05, 2018 Assessment & Plan (1) Leg weakness, bilateral: Long discussion with this patient today regarding his course postoperatively. We are debating 2 alternatives one possible transfer to to a tertiary care center for surgical intervention which would include an anterior approach. The other option is to remain in our institution and undergo a posterior stabilization procedure which I could perform. We will work over the next several days to formulate a plan. I have held his Plavix in the event that he goes to surgery. Present on Admission?: Yes Subjective Patient complaining mostly of back pain. She still struggling significant with attempts to sit up for any length of time. Physical Exam Physical Exam: Exam essentially unchanged. Incision is clean dry and intact. Reasonable plantar flexion dorsiflexion with quadriceps deficits. Results & Data Vital Signs (Past 12 Hours) Vital Signs Temp Pulse Pulse Resp BP Pulse Ox 10/05/18 07:25 36.7 C 71 16 108/51 L 100 10/04/18 23:42 36.5 C 65 19 125/73 99
[2018-10-05] MEDS: CASPOFUNGIN 50 MG in SODIUM CHLORIDE 0.9% 250 ML IV SCH (11:07)
--- NOTE | 2018-10-05 12:05 | Hospitalist Progress Note ---
Date of Service October 05, 2018 Assessment & Plan (1) Altered mental status: resolved likely from multiple reasons for altered mental status: such as metabolic encephalopathy due to PAULA on CKD, chronic pain, chronic infection, and on narcotics (2) Acute kidney injury: PAULA on cKD. The patient's creatinine went up slightly today. IV fluids restarted and will monitor daily renal function and urine output. Urine sodium and urine creatinine for fractional excretion pending. Appreciate nephrology consultation. Continue serial lab studies (3) Coagulase-negative staphylococcal infection: continue on Zyvox was on Vanco but stopped due to PAULA f/u Dr. Ndiaye for further instructions (4) Post-operative pain: Continue narcotic therapy for chronic pain management. Appreciate orthopedic consultation and management of the infection. Fentanyl dosage increased 10/04 to 25 mcg patch every 3 days (5) Paraspinal abscess: see above had surgery on 09/10/18, continue Zyvox therapy, wound care (6) Chronic systolic heart failure: No current CHF. The patient is receiving IV fluids now and the Lasix is on hold. We will monitor closely (7) Urinary retention: continue luna, has been in for over 30 days, stable (8) Acute anemia: The patient received 1 unit of packed red blood cells this admission. Serial lab studies. (9) Ischemic cardiomyopathy: Continue current medical management (10) ICD (implantable cardioverter-defibrillator) in place: Stable (11) Diabetes mellitus, type 2: diabetic diet Novolog (12) Acute UTI (urinary tract infection): Fungal elements isolated. Continue intravenous caspofungin through October 05. Subjective He appears to be more comfortable today. The fentanyl patch dosage was increased yesterday. I spoke with orthopedic surgery, Dr. Freddy Morales, who explained his plan options to me. Plavix is on hold in the case he returns to the OR this admission. Caspofungin will be completed today. Review of Systems Review of Systems: All systems reviewed & are unremarkable except as noted in HPI & below Musculoskeletal: Exacerbation of chronic lumbar pain limiting mobility and producing bilateral lower extremity weakness Physical Exam Constitutional: WD/WN, vitals as above Eyes: PERRL, conjunctivae normal, anicteric sclerae ENMT: external ear and nose normal, oropharynx normal Neck: trachea midline, no thyromegaly Respiratory: normal respiratory effort, lungs clear to auscultation Cardiovascular: RRR, no murmur, no edema Gastrointestinal (Abdomen): normal bowel sounds, soft, nontender, no hepatosplenomegaly Skin: no rashes, warm and dry Neurologic: CN's II-XI intact bilaterally; no focal motor deficits Results & Data Vital Signs (Past 12 Hours) Vital Signs Temp Pulse Resp BP Pulse Ox 10/05/18 07:25 36.7 C 71 16 108/51 L 100 Laboratory Results 10/03/18 05:40 10/05/18 06:03
[2018-10-05] MEDS: BACLOFEN 10 MG TAB PO PRN (16:34)
[2018-10-05] MEDS: ACETAMINOPHEN 325 MG TAB PO PRN (18:41)
[2018-10-05] MEDS: TAMSULOSIN HCL 0.4 MG CAP PO SCH (21:31)
[2018-10-05] MEDS: ATORVASTATIN 40 MG TAB PO SCH (21:31)
[2018-10-06] MEDS: HEPARIN SOD 5,000 UNIT/0.5 ML VIAL SQ SCH ×2 (05:50→13:03)
[2018-10-06] MEDS: LINEZOLID 600 MG TAB PO SCH ×2 (05:51→18:04)
[2018-10-06] MEDS: OXYCODONE HCL IR 5 MG TAB (IMMEDIATE RELEASE) PO PRN ×3 (06:06→18:00)
[2018-10-06 06:15] LABS: BUN Creatinine Ratio 12.3 (10-20); Calcium 8.3 mg/dl (8.5-10.1); Est GFR (Non-African American) 41.4; Potassium 3.9 mmol/L (3.5-5.1)
[2018-10-06] MEDS: ASPIRIN 81 MG ECTAB PO SCH (08:59)
[2018-10-06] MEDS: CHECK FENTANYL PATCH PLACEMENT SCH ×2 (08:59→17:04)
[2018-10-06] MEDS: MAGNESIUM OXIDE 400 MG TAB PO SCH (08:59)
[2018-10-06] MEDS: CHOLECALCIFEROL 1,000 UNITS TAB PO SCH (08:59)
[2018-10-06] MEDS: CYANOCOBALAMIN 500 MCG TABLET (VITAMIN B-12) PO SCH (08:59)
[2018-10-06] MEDS: METOPROLOL SUCC 50MG EXT REL TAB PO SCH (09:00)
[2018-10-06] MEDS: INSULIN DETEMIR FLEXPEN/FLEX TOUCH 100 UNITS/ML 3ML SQ SCH ×2 (09:00→21:11)
[2018-10-06] MEDS: FINASTERIDE 5 MG TAB PO SCH (09:00)
[2018-10-06] MEDS: SENNA 17.6 MG/10 ML UDP PO SCH (09:00)
[2018-10-06] MEDS: INSULIN ASPART 100 UNITS/ML 3 ML PEN SC SCH ×4 (09:01→21:12)
[2018-10-06] MEDS: SODIUM CHLORIDE 0.9% 1000ML 1,000 ML IV SCH (12:12)
--- NOTE | 2018-10-06 14:00 | Orthopedic Progress Note ---
Date of Service October 06, 2018 Assessment & Plan (1) Leg weakness, bilateral: Long discussion with this patient today regarding his course postoperatively. We are debating 2 alternatives one possible transfer to to a tertiary care center for surgical intervention which would include an anterior approach. The other option is to remain in our institution and undergo a posterior stabilization procedure which I could perform. We will work over the next several days to formulate a plan. I have held his Plavix in the event that he goes to surgery. Dr. Morales is out of town today. Will discuss with him current treatment plan/options when he returns tomorrow. Supervising Physician Co-Signing Physician Notes Dr. Bong Morales Subjective Resting this afternoon. No changes overnight. Review of Systems Review of Systems: All systems reviewed & are unremarkable except as noted in HPI & below Results & Data Vital Signs (Past 12 Hours) Vital Signs Temp Pulse Resp BP Pulse Ox 10/06/18 07:24 36.9 C 72 16 100/67 94
--- NOTE | 2018-10-06 14:29 | Hospitalist Progress Note ---
Date of Service October 06, 2018 Assessment & Plan (1) Altered mental status: resolved metabolic encephalopathy due to PAULA on CKD, chronic pain, chronic infection, and on narcotics (2) Coagulase-negative staphylococcal infection: Wound culture 09/10 continue on Zyvox was on Vanco but stopped due to PAULA BC no growth f/u Dr. 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 (4) Acute kidney injury: PAULA on CKD. The patient's creatinine went up slightly 10/05 but trending back down with IFV. Per nephro, recovery will likely be prolonged. Fractional excretion calculates to less than 1% indicating a prerenal source of PAULA. - nephrology consulted - has signed off at this point - continue serial prps, bicarb and electrolytes have been wnl (5) Post-operative pain: Continue narcotic therapy for chronic pain management. Appreciate orthopedic consultation and management of the infection. Fentanyl dosage increased 10/04 to 25 mcg patch every 3 days (6) Chronic systolic heart failure: No current CHF. The patient is receiving IV fluids now and the Lasix is on hold. We will monitor closely (7) Urinary retention: continue luna, changed 09/29 for funguria (8) Acute anemia: The patient received 1 unit of packed red blood cells this admission. Repeat cbc am (9) Ischemic cardiomyopathy: Continue current medical management - plavix held per surgery for possible surgical intervention (10) ICD (implantable cardioverter-defibrillator) in place: Stable (11) Diabetes mellitus, type 2: diabetic diet Novolog (12) Acute UTI (urinary tract infection): Fungal elements isolated. Continue intravenous caspofungin through October 05. (13) DVT prophylaxis: heparin subq Supervising Physician Co-Signing Physician Notes OVERHAULER Physician Supervision Note: I discussed with Winter Loredo NP and agree with findings and plan as documented in the note. Any exceptions or clarifications are listed here: None Documented By: Leno Stewart Subjective Mr. Cooper feels generally unwell. He continues to have pain in his back. Review of Systems Review of Systems: All systems reviewed & are unremarkable except as noted in HPI & below Physical Exam Physical Exam: General: no distress Eyes: normal inspection, PERLL Respiratory: chest non tender, clear to auscultation, normal breath sounds, no respiratory distress, no accessory muscle use Cardiac: regular rate and rhythm, no rub or gallop, no murmur, upper arms with non pitting edema, no jvd GI/: active bowel sounds, no abd pain or tenderness, soft, non distended Extremities: normal range of motion, generalized weakness arms and legs Neuro/Psych: alert and oriented x 3, normal mood and affect Skin: normal color, dry Results & Data Vital Signs (Past 12 Hours) Vital Signs Temp Pulse Resp BP Pulse Ox 10/06/18 07:24 36.9 C 72 16 100/67 94
[2018-10-06] MEDS: ATORVASTATIN 40 MG TAB PO SCH (21:09)
[2018-10-06] MEDS: TAMSULOSIN HCL 0.4 MG CAP PO SCH (21:10)
[2018-10-06] MEDS: BACLOFEN 10 MG TAB PO PRN (23:09)
[2018-10-07] MEDS: CHECK FENTANYL PATCH PLACEMENT SCH ×3 (00:18→15:13)
[2018-10-07 01:33] LABS: Appearance Urine Turbid (Clear); Bilirubin Urine Negative (Negative); Blood Urine 3+ (Negative); Color Urine Red; Glucose Urine UA Negative (Negative); Ketones Urine Trace (Negative); Leukocyte Esterase Urine Trace (Negative); Nitrite Urine Negative (Negative); Protein Urine 2+ (Negative); Urobilinogen Urine Negative (Negative); pH Urine 5.5 (4.5-7.5)
[2018-10-07 01:38] LABS: Bacteria Urine Negative (Negative); RBC Urine >30 /hpf (0-4); WBC Urine >30 /hpf (0-5)
[2018-10-07 06:30] LABS: Hematocrit (blood only) 23.5 % (42-52); Hemoglobin 7.6 g/dL (14.0-18.0); Mean Corpuscular Hgb Conc 32.3 g/dL (32-36); Mean Corpuscular Volume 84.2 fL (80-100); RDW Coefficient of Variation 16.5 % (11.5-14.5); RDW Standard Deviation 50.9 fL (36.4-46.3); Red Blood Count 2.79 M/uL (4.7-6.1); White Blood Count 6.37 K/uL (4.8-10.8)
[2018-10-07] MEDS: LINEZOLID 600 MG TAB PO SCH (06:40)
[2018-10-07 07:00] LABS: Mean Platelet Volume 8.1 fL (7.4-10.4); Platelet Count 89 K/uL (130-400)
[2018-10-07 07:01] LABS: Platelet Estimate Decreased (Normal)
[2018-10-07 07:03] LABS: BUN Creatinine Ratio 12.8 (10-20); Calcium 8.2 mg/dl (8.5-10.1); Est GFR (Non-African American) 42.3; Potassium 3.9 mmol/L (3.5-5.1)
[2018-10-07] MEDS: OXYCODONE HCL IR 5 MG TAB (IMMEDIATE RELEASE) PO PRN ×2 (07:41→12:30)
[2018-10-07] MEDS ORDERED: ARGATROBAN CONSULT ACTIVE ONE (08:37)
[2018-10-07] MEDS: INSULIN DETEMIR FLEXPEN/FLEX TOUCH 100 UNITS/ML 3ML SQ SCH ×2 (08:50→21:25)
[2018-10-07] MEDS: INSULIN ASPART 100 UNITS/ML 3 ML PEN SC SCH ×5 (08:51→21:25)
[2018-10-07] MEDS: CHOLECALCIFEROL 1,000 UNITS TAB PO SCH (08:51)
[2018-10-07] MEDS: CYANOCOBALAMIN 500 MCG TABLET (VITAMIN B-12) PO SCH (08:51)
[2018-10-07] MEDS: SENNA 17.6 MG/10 ML UDP PO SCH (08:52)
[2018-10-07] MEDS: METOPROLOL SUCC 50MG EXT REL TAB PO SCH (08:52)
[2018-10-07] MEDS: MAGNESIUM OXIDE 400 MG TAB PO SCH (08:52)
[2018-10-07] MEDS: FINASTERIDE 5 MG TAB PO SCH (08:52)
[2018-10-07] MEDS ORDERED: SODIUM CHLORIDE 0.9% 250 ML IV PRN (09:43)
[2018-10-07] MEDS: fentaNYL 25 MCG/HR TDSY TD SCH (14:15)
--- NOTE | 2018-10-07 14:42 | Infectious Disease Progress Nt ---
Date of Service October 07, 2018 Assessment & Plan (1) UTI (urinary tract infection): ok to change to Dapto at previous dose to complte therapy, hopefully this will now be covered. follow with Dr. Ndiaye post d/c from [facility]. (2) Coagulase-negative staphylococcal infection: Subjective received phone call regarding drop in platelets today and concern for zyvox as cause. pt was initially on dapto to treat back infection but was changed to [facility] upon transfer to rehab, ? cost. had elina, creat still recovering on vanco and was then changed to zyvox to complete course. afebrile. culture negative this admission Results & Data Vital Signs (Past 12 Hours) Vital Signs Temp Pulse Pulse Resp BP BP Pulse Ox 10/07/18 14:30 36.8 C 75 16 111/61 98 10/07/18 13:33 36.8 C 75 18 139/80 96 10/07/18 13:01 36.4 C L 74 16 134/75 100 10/07/18 12:31 36.5 C 75 18 108/54 L 100 10/07/18 12:16 36.9 C 76 18 123/74 99 10/07/18 11:59 36.8 C 76 18 107/65 98 10/07/18 06:59 36.4 C L 77 18 109/66 99 Laboratory Results Microbiology 09/27/18 12:05 Blood Blood Culture - Final No growth 09/27/18 11:55 Blood Blood Culture - Final No growth 09/27/18 Unknown Urine,Straight Cath Urine Culture - Final Tiffany albicans
--- NOTE | 2018-10-07 15:03 | Hospitalist Progress Note ---
Date of Service October 07, 2018 Assessment & Plan (1) Paraspinal abscess: had surgery on 09/10/18, change Zyvox to daptomycin due to thrombocytopenia Lumbar CT 09/30 showing L2-L3 and L3-L4 discitis osteolytis - patient discussing with surgery whether to return to ED here or be transferred to a tertiary care center. (2) Acute kidney injury: PAULA on CKD. The patient's creatinine went up slightly 10/05 but trending back down. Per nephro, recovery will likely be prolonged. Fractional excretion calculates to less than 1% indicating a prerenal source of PAULA. - nephrology consulted - has signed off at this point - continue serial prps, bicarb and electrolytes have been wnl (3) Thrombocytopenia: Platelets dropped to 89,000 from 250,000 on admission. Heparin antibodies were negative. Zyvox adverse effect includes thrombocytopenia. Discussed with ID. Will change to daptomycin As this will be a prolonged course, will need to monitor CPK at least weekly since patient is on statin. I'm hesitate to take statin off his profile due to his cardiac history. (4) Altered mental status: resolved metabolic encephalopathy due to PAULA on CKD, chronic pain, chronic infection, and on narcotics (5) Coagulase-negative staphylococcal infection: Wound culture 09/10 Daptomycin as above was on Vanco but stopped due to PAULA BC no growth f/u Dr. Ndiaye for further instructions (6) Post-operative pain: Continue narcotic therapy for chronic pain management. Appreciate orthopedic consultation and management of the infection. Fentanyl dosage increased 10/04 to 25 mcg patch every 3 days (7) Chronic systolic heart failure: No current CHF. IVF dc'd, will continue to hold furosemide (8) Urinary retention: continue luna, changed 09/29 for funguria (9) Acute anemia: Given 1 unit prbcs today for a total of 2 this admission. Repeat cbc am (10) Ischemic cardiomyopathy: Continue current medical management - plavix held per surgery for possible surgical intervention (11) ICD (implantable cardioverter-defibrillator) in place: Stable (12) Diabetes mellitus, type 2: diabetic diet Novolog (13) Acute UTI (urinary tract infection): Fungal elements isolated. Intravenous caspofungin through October 05. Repeat UC pending (14) DVT prophylaxis: heparin subq held for low platelets Subjective Mr. Cooper reports his back pain is somewhat better today. He otherwise does not have complaints Review of Systems Review of Systems: All systems reviewed & are unremarkable except as noted in HPI & below Physical Exam Physical Exam: General: no distress Eyes: normal inspection, PERLL Respiratory: chest non tender, clear to auscultation, normal breath sounds, no respiratory distress, no accessory muscle use Cardiac: regular rate and rhythm, no rub or gallop, no murmur, no edema, no jvd GI/: active bowel sounds, no abd pain or tenderness, soft, non distended Extremities: normal range of motion, generalized weakness Neuro/Psych: alert and oriented x 2, normal mood and affect Skin: normal color, dry Results & Data Vital Signs (Past 12 Hours) Vital Signs Temp Pulse Pulse Resp BP BP Pulse Ox 10/07/18 14:30 36.8 C 75 16 111/61 98 10/07/18 13:33 36.8 C 75 18 139/80 96 10/07/18 13:01 36.4 C L 74 16 134/75 100 10/07/18 12:31 36.5 C 75 18 108/54 L 100 10/07/18 12:16 36.9 C 76 18 123/74 99 10/07/18 11:59 36.8 C 76 18 107/65 98 10/07/18 06:59 36.4 C L 77 18 109/66 99
[2018-10-07] MEDS ORDERED: DAPTOMYCIN CONSULT ACTIVE PRN (15:39)
--- NOTE | 2018-10-07 16:17 | Orthopedic Progress Note ---
Date of Service October 07, 2018 Assessment & Plan (1) Weakness of lower extremity: At this time we can continue to encourage transfers and sitting as tolerated. We are strongly considering posterior stabilization most likely from L1-L5. May consider this as soon as pending his health status. Present on Admission?: Yes Subjective Patient is in bed at this time. He states he was up earlier today for breakfast and tolerated over 2 hours of sitting. Unfortunately this created significant back pain and he is most comfortable in bed at this time. Physical Exam Physical Exam: Essentially unchanged with weak quadriceps bilaterally. Results & Data Vital Signs (Past 12 Hours) Vital Signs Temp Pulse Pulse Resp BP BP Pulse Ox 10/07/18 15:18 36.3 C L 76 20 123/73 94 10/07/18 14:30 36.8 C 75 16 111/61 98 10/07/18 13:33 36.8 C 75 18 139/80 96 10/07/18 13:01 36.4 C L 74 16 134/75 100 10/07/18 12:31 36.5 C 75 18 108/54 L 100 10/07/18 12:16 36.9 C 76 18 123/74 99 10/07/18 11:59 36.8 C 76 18 107/65 98 10/07/18 06:59 36.4 C L 77 18 109/66 99
[2018-10-07] MEDS: DAPTOmycin 400 MG in SYRINGE 0 ML IV SCH (16:37)
[2018-10-07] MEDS: ATORVASTATIN 40 MG TAB PO SCH (21:27)
[2018-10-07] MEDS: TAMSULOSIN HCL 0.4 MG CAP PO SCH (21:27)
[2018-10-08] MEDS: OXYCODONE HCL IR 5 MG TAB (IMMEDIATE RELEASE) PO PRN ×3 (00:46→17:59)
[2018-10-08] MEDS: CHECK FENTANYL PATCH PLACEMENT SCH ×3 (00:47→17:34)
[2018-10-08] MEDS: BACLOFEN 10 MG TAB PO PRN (02:44)
[2018-10-08 06:49] LABS: Hematocrit (blood only) 25.9 % (42-52); Hemoglobin 8.5 g/dL (14.0-18.0); Mean Corpuscular Hgb Conc 32.8 g/dL (32-36); Mean Corpuscular Volume 83.5 fL (80-100); RDW Standard Deviation 48.7 fL (36.4-46.3); White Blood Count 6.94 K/uL (4.8-10.8)
[2018-10-08 06:54] LABS: Mean Platelet Volume 8.8 fL (7.4-10.4); Platelet Count 86 K/uL (130-400)
[2018-10-08 07:29] LABS: BUN Creatinine Ratio 13.5 (10-20); Bilirubin Direct 0.2 mg/dl (0-0.2); Calcium 8.1 mg/dl (8.5-10.1); Creatinine Clr Calc Pharmacy 52.5 ml/min; Est GFR (Non-African American) 44.9; Potassium 3.7 mmol/L (3.5-5.1)
[2018-10-08 07:32] LABS: Bilirubin,Total 0.6 mg/dl (0.2-1); Total Protein 5.4 gm/dl (6.4-8.2)
[2018-10-08] MEDS: METOPROLOL SUCC 50MG EXT REL TAB PO SCH (08:15)
[2018-10-08] MEDS: CHOLECALCIFEROL 1,000 UNITS TAB PO SCH (08:15)
[2018-10-08] MEDS: CYANOCOBALAMIN 500 MCG TABLET (VITAMIN B-12) PO SCH (08:15)
[2018-10-08] MEDS: MAGNESIUM OXIDE 400 MG TAB PO SCH (08:16)
[2018-10-08] MEDS: SENNA 17.6 MG/10 ML UDP PO SCH (08:17)
[2018-10-08] MEDS: FINASTERIDE 5 MG TAB PO SCH (09:17)
[2018-10-08] MEDS: INSULIN ASPART 100 UNITS/ML 3 ML PEN SC SCH ×5 (09:18→21:20)
[2018-10-08] MEDS: INSULIN DETEMIR FLEXPEN/FLEX TOUCH 100 UNITS/ML 3ML SQ SCH ×2 (09:19→21:19)
--- NOTE | 2018-10-08 10:32 | Orthopedic Progress Note ---
Date of Service October 08, 2018 Assessment & Plan (1) Weakness of lower extremity: At this time he will be made n.p.o. we plan for posterior lumbar fusion tomorrow. Most likely extending L1-S1. Risk benefits pros cons alternatives outlined in detail to both the patient and his . We will plan for surgery in the a.m. Present on Admission?: Yes Subjective Patient continues to complain of axial back pain but does not describe any leg pain today. Physical Exam Physical Exam: Physical exam he is alert and oriented toward questioning. Neurologic findings unchanged. Results & Data Vital Signs (Past 12 Hours) Vital Signs Temp Pulse Pulse Resp BP Pulse Ox 10/08/18 07:30 36.7 C 73 16 108/56 L 96 10/07/18 23:28 36.2 C L 73 16 135/73 98
--- NOTE | 2018-10-08 12:18 | Anesthesiology Consultation ---
Date of Service October 08, 2018 The patient has a known narrow airway requiring a 6.5 ETT on 08/11/18 and 7.0 on 09/10/[address] a larger ETT. His airway was adequately visualized using the Glidescope, but there was difficulty passing the ETT through the narrow cords. The patient has known antibodies to blood products. He will have two units PRBC on hold as per blood bank. Assessment & Plan (1) Encounter for pre-operative examination: Chart Review Chart Review: Acceptable Risk for Surgery and Patient NOT seen in Pre Admission Testing Consults Requested none patient is being followed by medicine on the floor History Surgery Operation Date: 10/09/18 08:15 Proposed Procedures p L1-L5 Lumbar Fusion - Bong Morales DO Height/Weight Height: 5 ft 8 in Weight: 97.7 kg Allergies Allergy/AdvReac Type Severity Reaction Status Date / Time No Known Allergies Allergy Verified 08/01/18 15:19 Medications Home Medications Medication Instructions Recorded Confirmed Last Taken magnesium oxide 400 mg PO QAM #0 tab 11/27/11 09/27/18 09/27/18 losartan 50 mg PO QAM #0 tab 05/26/12 09/27/18 09/27/18 omega 9-dil-udx-fish oil [Fish Oil] 1 cap PO QAM #0 cap 05/26/12 09/27/18 09/27/18 atorvastatin 40 mg PO HS #0 tab 11/12/14 09/27/18 09/26/18 coenzyme Q10 100 mg PO QAM #0 11/12/14 09/27/18 09/27/18 finasteride [Proscar] 5 mg PO QAM #0 11/12/14 09/27/18 09/26/18 insulin aspart U-100 10 unit SC TIDM #0 03/07/16 09/27/18 09/27/18 08:30 metoprolol succinate [Toprol XL] 100 mg PO QAM #0 03/07/16 09/27/18 09/27/18 metformin 1,000 mg PO BID 05/16/18 09/27/18 09/27/18 AM DOSE vitamin B complex 1 tab PO QAM 07/22/18 09/27/18 09/27/18 aspirin [Ecotrin Low Strength] 81 mg PO QAM #30 tab 08/14/18 09/27/18 09/27/18 clopidogrel 75 mg PO QAM #30 tab 08/14/18 09/27/18 09/27/18 furosemide 40 mg PO DAILY #30 tab 08/14/18 09/27/18 09/27/18 sennosides-docusate sodium [Senna 2 tab PO BID #3 tab 08/14/18 09/27/18 09/27/18 with Docusate Sodium] AM DOSE tamsulosin 0.4 mg PO HS #3 cap 08/14/18 09/27/18 09/26/18 Glucagon Emergency Kit (human) 1 dose IM DIRECTED PRN 08/26/18 09/27/18 Unknown Insta-Glucose 1 dose PO 08/26/18 Unknown acetaminophen 650 mg PO Q6H PRN 08/26/18 09/27/18 Unknown bisacodyl [Dulcolax (bisacodyl)] 10 mg MD DAILY PRN 08/26/18 09/27/18 Unknown cholecalciferol (vitamin D3) 2,000 units PO DAILY 08/26/18 09/27/18 09/27/18 [Vitamin D3] cyanocobalamin (vitamin B-12) 1,000 mcg PO DAILY 08/26/18 09/27/18 09/27/18 [Vitamin B-12] magnesium hydroxide [Milk of 30 ml PO DAILY PRN 08/26/18 09/27/18 Unknown Magnesia] sodium phosphates [Fleet Pediatric] 118 ml MD DAILY PRN 08/26/18 09/27/18 Unknown insulin detemir U-100 7 unit SUBCUT BID 09/03/18 09/27/18 09/27/18 06:30 lidocaine 1 patch TOP DAILY #1 ea 09/16/18 09/27/18 09/27/18 oxycodone 5 mg PO Q6 PRN #15 tab 09/16/18 09/27/18 09/27/18 04:45 5MG potassium chloride [Klor-Con M20] 40 meq PO DAILY #30 tab 09/16/18 09/27/18 09/27/18 insulin lispro [Humalog U-100 1 sliding scale dose SUBCUT 09/27/18 09/27/18 Unknown Insulin] USEASDIRECTD linezolid [Zyvox] 600 mg PO Q12H 09/27/18 09/27/18 09/27/18 AM DOSE multivitamin 1 tab PO QAM 09/27/18 09/27/18 09/27/18 ondansetron HCl 4 mg PO Q6 PRN 09/27/18 09/27/18 Unknown oxycodone [OxyContin] 10 mg PO Q12H 09/27/18 09/27/18 09/27/18 AM DOSE Active Medications Generic Name Dose Route Start Last Admin Trade Name Freq PRN Reason Stop Dose Admin Acetaminophen 650 mg 09/27/18 17:28 10/05/18 18:41 Tylenol PO 10/27/18 17:27 650 mg Q4H PRN Administration Pain or Fever Aspirin 81 mg 09/28/18 09:00 10/06/18 08:59 Ecotrin Ectab PO 10/28/18 08:59 81 mg QAM KAYLYNN Administration Atorvastatin Calcium 40 mg 09/27/18 21:00 10/07/18 21:27 Lipitor PO 10/27/18 20:59 40 mg HS KAYLYNN Administration Baclofen 5 mg 09/27/18 17:28 10/08/18 02:44 Lioresal PO 10/27/18 17:27 5 mg BID PRN Administration Muscle Spasm Cyanocobalamin 1,000 mcg 09/28/18 09:00 10/08/18 08:15 Vitamin B-12 PO 10/28/18 08:59 1,000 mcg DAILY KAYLYNN Administration Fentanyl 25 mcg 10/04/18 14:30 10/07/18 14:15 Duragesic TD 10/18/18 14:29 25 mcg Q3D@1430 KAYLYNN Administration Finasteride 5 mg 09/28/18 09:00 10/08/18 09:17 Proscar PO 10/28/18 08:59 5 mg QAM KAYLYNN Administration Heparin Sodium (Beef Lung) 5 ml 09/28/18 00:28 10/07/18 09:39 Heparin Sod 10 Unit/Ml Flush FLUSH 10/28/18 00:27 5 ml PRN PRN Administration Flush Heparin Sodium (Porcine) 5,000 units 09/27/18 22:00 10/06/18 13:03 Heparin Sodium (Porcine) SQ 10/27/18 21:59 5,000 units Q8 KAYLYNN Administration Daptomycin 400 mg/ Syringe 8 mls @ 4 mls/min 10/07/18 16:00 10/07/18 16:37 IV 11/18/18 15:59 4 mls/min Q24H KAYLYNN Administration Protocol Insulin Aspart 0 units 09/27/18 21:00 10/08/18 09:18 Novolog Flexpen SC 10/27/18 20:59 Not Given ACHS KAYLYNN Insulin Detemir 5 units 10/02/18 09:00 10/08/18 09:19 Levemir Flextouch SQ 11/01/18 08:59 5 units BID KAYLYNN Administration Magnesium Oxide 400 mg 09/28/18 09:00 10/08/18 08:16 Mag-Ox PO 10/28/18 08:59 400 mg QAM KAYLYNN Administration Metoprolol Succinate 100 mg 09/28/18 09:00 10/08/18 08:15 Toprol Xl PO 10/28/18 08:59 100 mg QAM KAYLYNN Administration Miscellaneous 1 ea 09/29/18 16:00 10/08/18 08:14 Fentanyl Patch Check Placement N/A 10/29/18 15:59 1 ea QS KAYLYNN Administration Miscellaneous 1 ea 10/04/18 14:29 10/07/18 14:15 Fentanyl Patch Remove & Waste N/A 11/03/18 14:28 Not Given Q3D@1429 KAYLYNN Oxycodone HCl 5 mg 10/01/18 13:15 10/08/18 09:26 Roxicodone Immediate Rel PO 10/15/18 13:14 5 mg Q4H PRN Administration severe pain Polyethylene Glycol 17 gm 09/27/18 17:28 10/05/18 09:47 Miralax Powder Packet PO 10/27/18 17:27 17 gm DAILY PRN Administration Constipation Sennosides 17.6 mg 09/29/18 11:30 10/08/18 08:17 Senokot PO 10/29/18 11:29 17.6 mg QAM KAYLYNN Administration Tamsulosin HCl 0.4 mg 09/27/18 21:00 10/07/18 21:27 Flomax PO 10/27/18 20:59 0.4 mg HS KAYLYNN Administration Vitamin D 2,000 units 09/28/18 09:00 10/08/18 08:15 Vitamin D3 PO 10/28/18 08:59 2,000 units DAILY KAYLYNN Administration Past Medical History Medical History Acute UTI (urinary tract infection) Difficult airway for intubation [employer]TAIN 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 Admitted [facility] 10/18/11 for onset of incapacitating cervical myelopathy. Spinal tap showed FIRE CAPTAIN Lyme disease, MRI showed severe spinal cord compression at C3-4 with myelomalacia and intramedullary mass. Pt had c-spine surgery, subsequent prolonged hospital admission, complicated post-op course. Difficult intubation Sudden cardiac Post-op [address] [facility]. Now has ICD. Sleep apnea PT NOT CURRENTLY CPAP 2/2 recurrent sinus infections. WILL SEE SLEEP MEDICINE/DR. ARCHULETA LATE 2017 Diabetes mellitus, type 2 IDDM. 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 - UNSURE IF HE HAS STENTS. History of tracheostomy Hx of transurethral resection of prostate History of cataract extraction with lens replacement Hx of tonsillectomy (Acute) H/O cervical spine surgery (Acute) ACDI C3-4, C7 corpectomy, removal of C7 intramedullary mass. History of lumbar spinal fusion (Acute) S/P triple vessel bypass (Acute) [facility] History of lumbar surgery 09/10/18 Glidescope 3 okay visualization but difficulty passing ETT, unable to pass 8.0, able to pass 7.0 with some difficulty History of incision and drainage Lumbar spine on 08/11; complicated by difficult intubation with only #6.5 ETT able to be placed and patient kept intubated post op Social History Smoking Status: Never smoker tobacco type: smokeless tobacco Do You Dip or Chew Tobacco: Yes (last chew was in july) Hx Alcohol Use: No Alcohol type: beer alcohol intake frequency: holidays/special occasions only Hx Substance Use: No substance use type: does not use Physical Exam Vital Signs Last Vital Signs Temp 36.7 C 10/08/18 07:30 Pulse 73 10/08/18 07:30 Resp 16 10/08/18 07:30 BP 108/56 L 10/08/18 07:30 Pulse Ox 96 10/08/18 07:30 Testing Electrocardiogram Date: 10/27/18 Findings: + NSR @ (75) and + RBBB Echocardiogram Date: 07/28/18 EF: 45-50 LV Function: normal Stress Test Date: 07/28/18 Type: DSE Findings: + WNL Laboratory Results 10/08/18 05:45 10/08/18 05:45 Blood Type A Positive 10/07/18 09:41 Antibody Screen POSITIVE A 10/07/18 09:41 Urine Color Red 10/07/18 01:00 Urine Appearance Turbid (Clear) H 10/07/18 01:00 Urine pH 5.5 (4.5-7.5) 10/07/18 01:00 Ur Specific Floral 1.020 (1.000-1.030) 10/07/18 01:00 Urine Protein 2+ (Negative) H 10/07/18 01:00 Urine Glucose (UA) Negative (Negative) 10/07/18 01:00 Urine Ketones Trace (Negative) H 10/07/18 01:00 Urine Nitrite Negative (Negative) 10/07/18 01:00 Ur Leukocyte Esterase Trace (Negative) H 10/07/18 01:00 Urine WBC (Auto) 5-10 /hpf (0-5) H 10/01/18 05:55 Urine RBC (Auto) >30 /hpf (0-4) H 10/01/18 05:55 U Hyaline Cast (Auto) 1-5 /lpf (0-5) 10/01/18 05:55 U Epithel Cells (Auto) 10-20 /lpf (0-5) H 10/01/18 05:55 Urine Bacteria (Auto) Negative (Negative) 10/01/18 05:55 Urine RBC >30 /hpf (0-4) H 10/07/18 01:00 Urine WBC >30 /hpf (0-5) H 10/07/18 01:00 Ur Epithelial Cells 5-10 /lpf (0-5) H 10/07/18 01:00 09/27/18 12:05 Blood Culture - Final Blood No growth 09/27/18 11:55 Blood Culture - Final Blood No growth 09/27/18 Unknown Urine Culture - Final Urine,Straight Cath Tiffany albicans 10/08/18 08:14 POC Glucose 77
--- NOTE | 2018-10-08 15:26 | Hospitalist Progress Note ---
Date of Service October 08, 2018 Assessment & Plan (1) Paraspinal abscess: had surgery on 09/10/18, change Zyvox to daptomycin due to thrombocytopenia Lumbar CT 09/30 showing L2-L3 and L3-L4 discitis osteolytis - patient discussing with surgery whether to return to ED here or be transferred to a tertiary care center. Surgery would like to take patient to surgery tomorrow. Anesthesia discussed concerns over patient risks for surgery including platelet count, cardiac history and renal function. I agreed with her that he does have significant risks and that a cardiology consult would help to risk stratify. - consult cardiology for preop evaluation - EKG, CXR to be repeated. Last echo in July showed an EF of 35% with significant WMA. - His renal function has improved significantly but creatinine is still not back to baseline. - Repeat CBC in the am to evaluate platelets and Hgb - will leave it up to surgery as to platelet replacement perioperatively - RCRI is 15% for this patient. (2) Acute kidney injury: PAULA on CKD. The patient's creatinine is trending back down. Per nephro, recovery will likely be prolonged. Fractional excretion calculates to less than 1% indicating a prerenal source of PAULA. - nephrology consulted - has signed off at this point - continue serial prps, bicarb a little low today, electrolytes wnl (3) Thrombocytopenia: Platelets dropped to 86,000 from 250,000 on admission. Heparin antibodies were negative. Zyvox adverse effect includes thrombocytopenia. Discussed with ID changed to daptomycin As this will be a prolonged course, will need to monitor CPK at least weekly since patient is on statin. I'm hesitant to take statin off his profile due to his cardiac history. (4) Altered mental status: resolved metabolic encephalopathy due to PAULA on CKD, chronic pain, chronic infection, and on narcotics (5) Coagulase-negative staphylococcal infection: Wound culture 09/10 Daptomycin as above was on Vanco but stopped due to PAULA BC no growth f/u Dr. Ndiaye for further instructions (6) Post-operative pain: Continue narcotic therapy for chronic pain management. Appreciate orthopedic consultation and management of the infection. Fentanyl dosage increased 10/04 to 25 mcg patch every 3 days (7) Chronic systolic heart failure: No current CHF exacerbation. IVF dc'd, will continue to hold furosemide See above concerning last echo (8) Urinary retention: continue luna, changed 09/29 for funguria (9) Acute anemia: Given a total of 2 u PRBCs this admission. Repeat cbc am (10) Ischemic cardiomyopathy: Continue current medical management - plavix held per surgery for possible surgical intervention (11) ICD (implantable cardioverter-defibrillator) in place: Stable (12) Diabetes mellitus, type 2: diabetic diet Novolog (13) Acute UTI (urinary tract infection): Fungal elements isolated. Intravenous caspofungin through October 05. Repeat UC pending (14) DVT prophylaxis: heparin subq held for low platelets Subjective Mr. Cooper continues to have back pain and generally feels unwell. Review of Systems Review of Systems: All systems reviewed & are unremarkable except as noted in HPI & below Physical Exam Physical Exam: General: no distress Eyes: normal inspection, PERLL Respiratory: chest non tender, clear to auscultation, normal breath sounds, no respiratory distress, no accessory muscle use Cardiac: regular rate and rhythm, no rub or gallop, no murmur, no edema, no jvd GI/: active bowel sounds, no abd pain or tenderness, soft, non distended Extremities: normal range of motion, normal strength, non tender Neuro/Psych: alert and oriented x 3, normal mood and affect Skin: normal color, dry Results & Data Vital Signs (Past 12 Hours) Vital Signs Temp Pulse Resp BP Pulse Ox 10/08/18 07:30 36.7 C 73 16 108/56 L 96
--- NOTE | 2018-10-08 15:54 | XRay Report ---
XR chest 1V portable HISTORY: 67 years-old Male preop preoperative exam. No acute chest complaints COMPARISON: Chest radiograph 09/27/2018 TECHNIQUE: Portable AP view of the chest FINDINGS: Cardiac silhouette is mildly enlarged, unchanged. Prior median sternotomy. Stable positioning of the left pectoral pacer/AICD and right-sided PICC. No pneumothorax, pleural effusion or overt pulmonary e jason. Mild pulmonary vascular congestion. Degenerative changes of the shoulders and spine. Postoperat jeremy changes of the spine redemonstrated. Left shoulder rotator cuff calcific tendinosis and/or calcif ic bursitis. IMPRESSION: No acute process. The above report was generated using voice recognition software. It may contain grammatical, syntax o r spelling errors. Electronically signed by: Kamari Veras M.D. 10/08/2018 3:52 PM
[2018-10-08] MEDS ORDERED: SODIUM CHLORIDE 0.9% 250 ML IV PRN (16:54)
[2018-10-08] MEDS: DAPTOmycin 400 MG in SYRINGE 0 ML IV SCH (17:33)
[2018-10-08] MEDS: TAMSULOSIN HCL 0.4 MG CAP PO SCH (21:04)
[2018-10-08] MEDS: ATORVASTATIN 40 MG TAB PO SCH (21:18)
[2018-10-09] MEDS: CHECK FENTANYL PATCH PLACEMENT SCH ×2 (00:07→07:37)
[2018-10-09] MEDS ORDERED: Nursing to Pharmacy Communication ONE (00:16)
[2018-10-09] MEDS: INSULIN ASPART 100 UNITS/ML 3 ML PEN SC SCH ×3 (06:19→17:14)
[2018-10-09 06:24] LABS: Hemoglobin 10.3 g/dL (14.0-18.0); Mean Corpuscular Hgb Conc 33.2 g/dL (32-36); Mean Corpuscular Volume 83.8 fL (80-100); RDW Coefficient of Variation 15.5 % (11.5-14.5); RDW Standard Deviation 47.3 fL (36.4-46.3); White Blood Count 8.04 K/uL (4.8-10.8)
[2018-10-09 06:27] LABS: Mean Platelet Volume 9.5 fL (7.4-10.4); Platelet Count 79 K/uL (130-400)
[2018-10-09 06:51] LABS: BUN Creatinine Ratio 14.8 (10-20); Calcium 8.4 mg/dl (8.5-10.1); Creatinine Clr Calc Pharmacy 58.4 ml/min; Est GFR (African American) 59.1; Potassium 3.8 mmol/L (3.5-5.1)
[2018-10-09] MEDS ORDERED: fentaNYL citrate 100 MCG/2 ML VIAL ONE ×4 (07:15→11:28)
[2018-10-09] MEDS ORDERED: ROCURONIUM BROMIDE 10 MG/ML 5 ML VIAL ONE (07:15)
[2018-10-09] MEDS ORDERED: PROPOFOL IV EMULSION 10 MG/ML 20 ML VIAL IV ONE ×3 (07:15→11:37)
[2018-10-09] MEDS ORDERED: SUCCINYLCHOLINE CHLORIDE 20 MG/ML 10 ML VIAL ONE (07:15)
[2018-10-09] MEDS ORDERED: LIDOCAINE HCL 2% 2 ML VIAL/AMP(20MG/ML) INFIL ONE ×3 (07:15→11:37)
[2018-10-09] MEDS ORDERED: PROMETHAZINE HCL 12.5 MG in SODIUM CHLORIDE 0.9% 50 ML IV PRN ×2 (07:56→14:16)
[2018-10-09] MEDS ORDERED: ePHEDrine sulfate 50 MG/ML AMP IV PRN (07:56)
[2018-10-09] MEDS ORDERED: ONDANSETRON INJ 2 MG/ML 2 ML VIAL IV PRN (07:56)
[2018-10-09] MEDS ORDERED: fentaNYL citrate 100 MCG/2 ML VIAL IV PRN (07:56)
[2018-10-09] MEDS ORDERED: PHENYLEPHRINE 100MCG/ML 5ML SYR IV PRN (07:56)
[2018-10-09] MEDS ORDERED: ATROPINE SULFATE 0.1 MG/ML 10ML SYR IV PRN (07:56)
[2018-10-09] MEDS ORDERED: HYDROmorphone INJ 1 MG/ML SYRINGE IV PRN (07:56)
--- NOTE | 2018-10-09 08:01 | History & Physical Bridge Note ---
Date of Service October 09, 2018 History & Physical Bridge Note I have examined the patient, reviewed the History & Physical and in the interval since the performance of the History & Physical I have noted the following changes of clinical significance: no changes noted plan for lumbar fusion L1-L5.
[2018-10-09] MEDS ORDERED: ALBUMIN HUMAN 5% 12.5 GM/250 ML VIAL IV ONE (09:08)
[2018-10-09] MEDS ORDERED: BACITRACIN INJ 50,000 UNIT VIAL ONE (09:11)
[2018-10-09] MEDS ORDERED: BUPIVACAINE/EPINEPHRINE 0.5% MPF 1:200,000 30 ML VIAL ONE (09:11)
[2018-10-09] MEDS ORDERED: MIDAZOLAM HCL 1 MG/ML 2ML VIAL ONE (09:18)
--- NOTE | 2018-10-09 09:24 | Cardiology Consultation ---
Date of Consultation October 09, 2018 Assessment & Plan (1) Coronary artery disease: The patient has an extensive cardiac history as described above. Cardiac catheterization performed in July noted a patent DELATORRE and FERNANDO along with significant [place] coronary disease. However, none nothing was intervened able at that time and conservative medical care was suggested. The patient has done well since that time without episodes of angina pectoris. (2) Ischemic cardiomyopathy: Left ventricular systolic function is moderately reduced with an ejection fraction of 30-35% on an echocardiogram performed back in July. (3) Chronic systolic (congestive) heart failure: The patient has been well compensated of late. He has not required an intravenous diuretics. (4) ICD (implantable cardioverter-defibrillator) in place: The patient had a single-chamber ICD placed after an episode of sudden cardiac back in October 2011. His device has been functioning properly and was checked most recently on May 12, 2018. (5) Preoperative cardiovascular examination: The patient is an acceptable cardiac risk for lumbar surgery as long as extremes of blood pressure and excessive hydration are avoided. History of Present Illness Attending Physician: Malik Fernandez MD History of Present Illness Mr. Cooper is a 67-year-old male with a complex past medical history who is to undergo a posterior lumbar fusion this morning with Dr. Morales. This consultation was ordered to assess his preoperative risk. Of note, we received word of this routine cardiology consultation via a fax to our office yesterday afternoon. The patient was admitted on September 27 with a metabolic encephalopathy, acute renal failure, refractory low back pain, and a coag-negative staph infection secondary to a paraspinal abscess. The patient's hospital course has been dominated by his difficult to control back pain. He has been decided to proceed with a lumbar fusion to hopefully improve the patient's quality of life. Fortunately, he has not had any recent angina pectoris or evidence of congestive heart failure. He has been maintained on metoprolol succinate 100 mg daily, and has not required any intravenous diuretics. The patient has a long and complicated cardiac history. He underwent a 3 vessel bypass in [address] [facility]. This included an FERNANDO to a right acute marginal branch, an DELATORRE to the LAD, and a radial graft to an obtuse marginal branch. 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 Following surgery, patient experience respiratory failure and a cardiac arrest. He had placement of a single-chamber Medtronic ICD in October 2004 following the event. The patient had lumbar spinal surgery performed in July of this year. He developed an acute coronary syndrome following surgery. Cardiac catheterization revealed a subtotal mid ramus intermedius branch which was felt to be the nicola rit. No intervention was performed as the patient was asymptomatic, hemodynamically stable, and the vessel was felt to be a difficult target. The FERNANDO and LAD were both patent, but the radial artery graft was totally obstructed. There were sequential 90 percent stenoses in the right coronary and poor filling by collateral vessels. Conservative medical management was suggested at that time. The patient also carries a history of an ischemic cardiomyopathy and chronic systolic CHF. An echocardiogram performed in July noted an ejection fraction of 30-35% with multiple wall motion abnormalities. The patient did undergo lumbar surgery on September 10. He had an I&D of the lumbar spine, removal of hardware, and implantation of antibiotic seeds. Fortunately, this procedure was uncomplicated. Currently, patient is resting comfortably in bed without complaints. Past medical and surgical history 1. Coronary artery disease-see above 2. CABG times 3-2002 3. Ischemic rfykuspsrferck-13-08%-July 2018 4. Chronic systolic CHF 5. Sudden cardiac -October 2011 6. Single-chamber Medtronic ICD-October 2011 7. RBBB 8. Hypertension 9. Hypercholesterolemia 10. LVH 11. Diabetes mellitus 12. BPH 13. History of tracheostomy-October 2011 14. Interocular lens implants 15. Tonsillectomy 16. Obesity 17. Multiple lumbar surgeries Social history , but currently living at [facility] No tobacco or alcohol Family history Noncontributory Review of systems A 10 point review of systems was negative except for that described above. Allergies Allergy/AdvReac Type Severity Reaction Status Date / Time No Known Allergies Allergy Verified 08/01/18 15:19 Home Medications Home Medications Medication Instructions Recorded Confirmed Type magnesium oxide 400 mg PO QAM #0 tab 11/27/11 09/27/18 History losartan 50 mg PO QAM #0 tab 05/26/12 09/27/18 History omega 0-htp-yuj-fish oil [Fish Oil] 1 cap PO QAM #0 cap 05/26/12 09/27/18 History atorvastatin 40 mg PO HS #0 tab 11/12/14 09/27/18 History coenzyme Q10 100 mg PO QAM #0 11/12/14 09/27/18 History finasteride [Proscar] 5 mg PO QAM #0 11/12/14 09/27/18 History insulin aspart U-100 10 unit SC TIDM #0 03/07/16 09/27/18 History metoprolol succinate [Toprol XL] 100 mg PO QAM #0 03/07/16 09/27/18 History metformin 1,000 mg PO BID 05/16/18 09/27/18 History vitamin B complex 1 tab PO QAM 07/22/18 09/27/18 History aspirin [Ecotrin Low Strength] 81 mg PO QAM #30 tab 08/14/18 09/27/18 Rx clopidogrel 75 mg PO QAM #30 tab 08/14/18 09/27/18 Rx furosemide 40 mg PO DAILY #30 tab 08/14/18 09/27/18 Rx sennosides-docusate sodium [Senna 2 tab PO BID #3 tab 08/14/18 09/27/18 Rx with Docusate Sodium] tamsulosin 0.4 mg PO HS #3 cap 08/14/18 09/27/18 Rx Glucagon Emergency Kit (human) 1 dose IM DIRECTED PRN 08/26/18 09/27/18 History Insta-Glucose 1 dose PO 08/26/18 History acetaminophen 650 mg PO Q6H PRN 08/26/18 09/27/18 History bisacodyl [Dulcolax (bisacodyl)] 10 mg GA DAILY PRN 08/26/18 09/27/18 History cholecalciferol (vitamin D3) 2,000 units PO DAILY 08/26/18 09/27/18 History [Vitamin D3] cyanocobalamin (vitamin B-12) 1,000 mcg PO DAILY 08/26/18 09/27/18 History [Vitamin B-12] magnesium hydroxide [Milk of 30 ml PO DAILY PRN 08/26/18 09/27/18 History Magnesia] sodium phosphates [Fleet Pediatric] 118 ml GA DAILY PRN 08/26/18 09/27/18 History insulin detemir U-100 7 unit SUBCUT BID 09/03/18 09/27/18 History lidocaine 1 patch TOP DAILY #1 ea 09/16/18 09/27/18 Rx oxycodone 5 mg PO Q6 PRN #15 tab 09/16/18 09/27/18 Rx potassium chloride [Klor-Con M20] 40 meq PO DAILY #30 tab 09/16/18 09/27/18 Rx insulin lispro [Humalog U-100 1 sliding scale dose SUBCUT 09/27/18 09/27/18 History Insulin] USEASDIRECTD linezolid [Zyvox] 600 mg PO Q12H 09/27/18 09/27/18 History multivitamin 1 tab PO QAM 09/27/18 09/27/18 History ondansetron HCl 4 mg PO Q6 PRN 09/27/18 09/27/18 History oxycodone [OxyContin] 10 mg PO Q12H 09/27/18 09/27/18 History Patient History Medical History Acute UTI (urinary tract infection) Difficult airway for intubation [employer] 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 Admitted [facility] 10/18/11 for onset of incapacitating cervical myelopathy. Spinal tap showed [employer] Lyme disease, MRI showed severe spinal cord compression at C3-4 with myelomalacia and intramedullary mass. Pt had c-spine surgery, subsequent prolonged hospital admission, complicated post-op course. Difficult intubation Sudden cardiac Post-op 2011 [facility]. Now has ICD. Sleep apnea PT NOT CURRENTLY CPAP 2/2 recurrent sinus infections. WILL SEE SLEEP MEDICINE/DR. ARCHULETA LATE 2017 Diabetes mellitus, type 2 IDDM. Degenerative disc disease Chronic back pain CHRONIC PAIN IN LEFT LEG Ischemic cardiomyopathy EF WNL 11/2017 CAD (coronary artery disease) s/p triple CABG 2002 Full dentures (Acute) Obese (Acute) Heart disease (Acute) HTN (hypertension) (Acute) High cholesterol (Acute) Coagulase-negative staphylococcal infection ICD (implantable cardioverter-defibrillator) in place Paraspinal abscess Surgical History History of esophagogastroduodenoscopy (EGD) History of colonoscopy History of cardiac cath 2011 AT [facility] - UNSURE IF HE HAS STENTS. History of tracheostomy Hx of transurethral resection of prostate History of cataract extraction with lens replacement Hx of tonsillectomy (Acute) H/O cervical spine surgery (Acute) ACDI C3-4, C7 corpectomy, removal of C7 intramedullary mass. History of lumbar spinal fusion (Acute) S/P triple vessel bypass (Acute) [facility] History of lumbar surgery 09/10/18 Glidescope 3 okay visualization but difficulty passing ETT, unable to pass 8.0, able to pass 7.0 with some difficulty History of incision and drainage Lumbar spine on 08/11; complicated by difficult intubation with only #6.5 ETT able to be placed and patient kept intubated post op Family History Other Diabetes Hypertension No pertinent family history Social History Preferred Language: Bahamian Communication Ability: Impaired Visual Impairment: No Limitations Hearing Ability: Normal Beliefs That Will Affect Care: None marital status: Current Living Situation: Rehab Current Living Situation Comment: temporarily living at [facility] Feels Safe at Home: Yes Smoking Status: Never smoker Tobacco Type: smokeless tobacco Second Hand Exposure: No Hx Alcohol Use: No Hx Substance Use: No Physical Exam Physical Exam: In general is an obese white male lying supine in bed without complaints. HEENT exam is negative. Neck is supple with full carotid upstrokes. No obvious bruits. Jugular venous pressure difficult to assess. Cardiovascular exam reveals a regular rhythm with distant heart sounds. No obvious murmurs. No S3 or S4. Chest reveals a well-healed midline scar. A palpable device in the left subclavicular region. Lungs are clear anteriorly. Abdomen is obese without bruits. Extremities reveal intact radial artery pulses bilaterally. There is trace pretibial edema. Results & Data Vital Signs (Past 12 Hours) Vital Signs Temp Pulse Pulse Resp BP BP Pulse Ox 10/09/18 07:26 37 C 82 18 142/79 H 98 10/09/18 07:07 36.7 C 81 16 116/68 99 10/08/18 23:50 36.7 C 82 14 149/80 H 97 10/08/18 23:19 36.4 C L 80 16 137/77 99 10/08/18 21:55 36.4 C L 73 16 135/74 100 Laboratory Results CBC notes hemoglobin of 10.3, hematocrit 31.0, white count 8.0, platelet count 16893. Electrolytes note a sodium of 138, potassium 3.8, chloride 107, bicarb 23, BUN 21, creatinine 1.43, glucose of 123. Diagnostic Findings EKG notes normal sinus rhythm with a first-degree AV block and incomplete right bundle-branch block. Chest x-ray notes cardiomegaly, an implantable defibrillator, and no acute disease.
[2018-10-09] MEDS ORDERED: ePHEDrine sulfate 50 MG/ML SYR ONE ×2 (09:47→11:37)
[2018-10-09] MEDS ORDERED: GLYCOPYRROLATE 0.2 MG/ML VIAL ONE ×2 (09:47→11:37)
[2018-10-09] MEDS ORDERED: HYDROmorphone INJ 2 MG/ML SYR/VIAL ONE ×2 (09:47→11:29)
[2018-10-09] MEDS ORDERED: DEXAMETHASONE SOD INJ 4 MG/ML VIAL ONE (09:47)
[2018-10-09] MEDS ORDERED: NEOSTIGMINE METHYLSULFATE 1 MG/ML 10ML VIAL ONE (09:47)
[2018-10-09] MEDS ORDERED: VANCOMYCIN HCL 1000MG/20ML VIAL ONE (09:47)
[2018-10-09] MEDS ORDERED: PHENYLEPHRINE 100MCG/ML 5ML SYR ONE ×2 (09:47→11:37)
[2018-10-09] MEDS ORDERED: ONDANSETRON INJ 2 MG/ML 2 ML VIAL ONE (09:47)
[2018-10-09] MEDS ORDERED: THROMBIN FOR SOLN 20000 UNIT KIT ONE (09:54)
[2018-10-09] MEDS: GENTAMICIN SULFATE 40 MG/ML 2 ML VIAL ONE ×2 (10:42→11:10)
[2018-10-09] MEDS ORDERED: FLOSEAL HEMOSTATIC MATRIX 10ML TOP ONE (10:44)
[2018-10-09] MEDS ORDERED: CALCIUM CHLORIDE 10% 10 ML SYR IV ONE (11:08)
[2018-10-09 11:14] LABS: Hematocrit (blood only) 25.4 % (42-52); Hemoglobin 8.4 g/dL (14.0-18.0)
--- NOTE | 2018-10-09 11:30 | Operative Report ---
Post Operative Report Pre & Post Diagnosis Operation Date: 10/09/18 08:15 Pre-Op Diagnosis: Lumbar osteomyelitis at L3-4. Postop is the same. Procedure Operation Date: 10/09/18 08:15 Actual Procedures #1 expiration of fusion L3-4. #2 posterior spinal fusion L1-L2 3 L3-4. #3 placement of posterior segmental instrumentation using globus rods and screws as well as cross-link L1-L5. #4 placement infuse collagen sponge combined with master graft in the posterior lateral gutters L1-L4. #5 placement of stimulant beads impregnated with gentamicin and vancomycin. Surgeon Bong Morales, DO [employer] Representative Katelyn Buchanan Estimated Blood Loss 600 Findings See Below Patient is 5 foot 8 and 98 kg with a BMI of 32.7. In addition to this we had a 600 cc blood loss throughout the procedure. Subsequently technical difficulty was significant secondary to both the body habitus and blood loss throughout the procedure adding considerable technical difficulty identifying appropriate anatomy and placement of instrumentation. Specimens Epidural cultures of the lumbar spine obtained. Indications This is a 67-year-old male well-known to me that status post I&D with removal of hardware secondary to epidural abscess and osteomyelitis at the L3-4 level. In light of his continued back pain we elected to go expiration and stabilization as mentioned above approximately 4 weeks after his most recent I&D and removal of implants. Description of Procedure Patient was identified met with preoperatively. Case discussed all questions addressed with the palpation was taken back to the operative suite after undergoing intubation placed in a prone position on the Chuck table on top of the Hunter frame. All bony prominences well-padded eyes inspected to ensure no external pressure placed upon the peer at this point the lumbar spine was prepped and draped in a normal sterile fashion. Sharp dissection with the assi stance of Bovie cautery was performed down to and exposing the lamina and transverse processes of L1-L2 L3-L4-L5 and sacral ala bilaterally. Cultures were obtained. The tissues looked relatively healthy. There is no evidence of gross purulence. There was some retained stimulant beads still in place. There is small amount of serous fluid. Of note the patient's body habitus and significant bleeding did and significant time and technical difficulty to her exposure and procedure. I did explore the fusion mass at 3 4. Pedicle screws were then placed in L1-L2 L4-L5 and S1 levels bilaterally. Process nadia were then contoured and locked in position. This included cross-link. Transverse processes of L1 L2-L3-L4 then burred to subcortical being bone. Infuse collagen sponge and mass graft was placed in the posterior gutters. 15 round DOMINGA drain inserted. I did place approximately 20 cc of stimulant beads impregnated with gentamicin and vancomycin. Incision was then closed with 1 Vicryl fascia 2-0 Vicryl subcutaneous layer and florentin for final skin closure. Sterile dressings placed. Patient awakened taken to PACU in stable condition. Please note Katelyn Buchanan was present throughout the entire procedure involved in patient positioning complex portions of the surgery and final skin closure. I attest to the content of the Intraoperative Record and any orders documented therein. Any exceptions are noted below.
[2018-10-09] MEDS ORDERED: PHENYLEPHRINE HCL 10 MG/ML VIAL ONE (11:37)
[2018-10-09] MEDS ORDERED: ePHEDrine sulfate 50 MG/ML AMP ONE ×2 (11:37)
[2018-10-09] MEDS ORDERED: ESMOLOL HCL INJ 10 MG/ML 10ML VIAL IV ONE (11:37)
--- NOTE | 2018-10-09 11:47 | Fluoroscopy Report ---
LUMBAR SPINE, INTRAOPERATIVE FLUOROSCOPY HISTORY: L1 S1 posterior fusion. FLUOROSCOPY TIME: 1 minute and 5 seconds. FINDINGS: Intraoperative fluoroscopy was provided for the lumbar spine. 4 fluoroscopic spot images we re obtained. Posterior decompression fusion from L1 through S1 with pedicle screws and rods. There ar e no pedicle screws at the L3 level. The hardware appears intact. IMPRESSION: Fluoroscopy provided for a L1-S1 posterior decompression and fusion. Electronically signed by: Frankie Barrow M.D. 10/09/2018 11:46 AM
[2018-10-09 12:46] LABS: Hematocrit (blood only) 25.1 % (42-52); Hemoglobin 8.5 g/dL (14.0-18.0)
--- NOTE | 2018-10-09 13:04 | Anesthesiology Progress Note ---
Date of Service October 09, 2018 Anesthesia Post Procedure Vital Signs Vital Signs: Temp Pulse Pulse Pulse Resp BP BP 10/09/18 12:55 82 19 101/59 L 10/09/18 12:45 80 20 117/64 10/09/18 12:35 82 19 105/64 10/09/18 12:25 93 H 21 104/63 10/09/18 12:15 86 16 101/57 L 10/09/18 12:05 36.3 C L 90 17 79/52 L 10/09/18 07:26 37 C 82 18 142/79 H 10/09/18 07:07 36.7 C 81 16 116/68 10/08/18 23:50 36.7 C 82 14 149/80 H 10/08/18 23:19 36.4 C L 80 16 137/77 10/08/18 21:55 36.4 C L 73 16 135/74 10/08/18 21:10 36.9 C 74 18 123/59 L 10/08/18 20:40 37 C 76 18 112/69 10/08/18 20:25 37 C 75 18 105/58 L 10/08/18 20:07 37.1 C 72 18 111/67 10/08/18 15:58 36.4 C L 78 17 127/79 Pulse Ox 10/09/18 12:55 100 10/09/18 12:45 100 10/09/18 12:35 100 10/09/18 12:25 100 10/09/18 12:15 94 10/09/18 12:05 97 10/09/18 07:26 98 10/09/18 07:07 99 10/08/18 23:50 97 10/08/18 23:19 99 10/08/18 21:55 100 10/08/18 21:10 99 10/08/18 20:40 100 10/08/18 20:25 98 10/08/18 20:07 100 10/08/18 15:58 99 Pain Intensity Bilateral Back: Pain Intensity: 2 Transfer of Care Handoff Completed per policy Notes Mental Status: alert / awake / arousable Patient Amnestic to Procedure: Yes Nausea / Vomiting: adequately controlled Pain: adequately controlled Airway Patency, RR, SpO2: stable & adequate BP & HR: stable & adequate Hydration State: stable & adequate Anesthetic Complications: no major complications apparent Notes: Pt still requiring phenyelphrine drip to maintain BP. Maintaining O2 sats with oxymask. Case discussed with ICU director employee safety and health, Dr. Mazariegos. Dr. Mazariegos updated with patients PMH including his cardiac comorbidities and his intraop course, including the blood transfusion. Dr. Mazariegos accepting patient for ICU management post op.
[2018-10-09] MEDS: METOPROLOL SUCC 50MG EXT REL TAB PO SCH (14:05)
[2018-10-09] MEDS ORDERED: DO NOT ADMINISTER PNEUMOCOCCAL VACCINE PRN (14:16)
[2018-10-09] MEDS ORDERED: DO NOT ADMINISTER FLU VACCINE PRN (14:16)
[2018-10-09] MEDS ORDERED: FAMOTIDINE 20 MG TAB PO PRN (14:16)
[2018-10-09] MEDS ORDERED: ONDANSETRON 4 MG TAB PO PRN (14:16)
[2018-10-09] MEDS ORDERED: LORazepam 0.5 MG/1 ML VIAL IV PRN (14:16)
[2018-10-09] MEDS ORDERED: MAGNESIUM HYDROXIDE SUSP 30 ML UDC PO PRN (14:16)
[2018-10-09] MEDS ORDERED: LORazepam 0.5 MG TAB PO PRN (14:16)
[2018-10-09] MEDS ORDERED: BISACODYL 10 MG SUPP PR PRN (14:16)
[2018-10-09] MEDS ORDERED: SOD PHOSPHATE/SOD BIPHOSPHATE ENEMA 132 ML BTL PR PRN (14:16)
--- NOTE | 2018-10-09 14:21 | Infectious Disease Progress Nt ---
Date of Service October 09, 2018 Assessment & Plan (1) Paraspinal abscess: continue dapto for now, await repeat culture results. Subjective s/p fusion. cultures pending .remains on dapto due to low platelets on zyvox. previous back culture grew [employer]. repeat urine culture negative. afebrile. wbc 7.9, isolated fever yesterday, 38.4, otherwise afebrile. tolerating abx blood cultures negative and final Results & Data Vital Signs (Past 12 Hours) Vital Signs Temp Pulse Pulse Resp BP Pulse Ox 10/09/18 13:15 81 19 97/57 L 98 10/09/18 13:05 36.0 C L 79 21 94/66 L 98 10/09/18 12:55 82 19 101/59 L 100 10/09/18 12:45 80 20 117/64 100 10/09/18 12:35 82 19 105/64 100 10/09/18 12:25 93 H 21 104/63 100 10/09/18 12:15 86 16 101/57 L 94 10/09/18 12:05 36.3 C L 90 17 79/52 L 97 10/09/18 07:26 37 C 82 18 142/79 H 98 10/09/18 07:07 36.7 C 81 16 116/68 99 Laboratory Results Microbiology 10/07/18 01:00 Urine,Straight Cath Urine Culture - Final No growth - less than 1,000 colonies/mL. 09/27/18 12:05 Blood Blood Culture - Final No growth 09/27/18 11:55 Blood Blood Culture - Final No growth 09/27/18 Unknown Urine,Straight Cath Urine Culture - Final Tiffany albicans
[2018-10-09] MEDS: CYANOCOBALAMIN 500 MCG TABLET (VITAMIN B-12) PO SCH (14:40)
[2018-10-09] MEDS: MAGNESIUM OXIDE 400 MG TAB PO SCH (14:40)
[2018-10-09] MEDS: FINASTERIDE 5 MG TAB PO SCH (14:40)
[2018-10-09] MEDS: CHOLECALCIFEROL 1,000 UNITS TAB PO SCH (14:41)
[2018-10-09] MEDS: NOREPINEPHRINE BIT INJ 8 MG in DEXTROSE 5% 500 ML IV SCH (14:45)
[2018-10-09] MEDS: SODIUM CHLORIDE 0.9% 1000ML 1,000 ML IV SCH (14:46)
[2018-10-09] MEDS: SENNA 17.6 MG/10 ML UDP PO SCH (14:50)
[2018-10-09] MEDS: INSULIN DETEMIR FLEXPEN/FLEX TOUCH 100 UNITS/ML 3ML SQ SCH (14:50)
[2018-10-09] MEDS: ONDANSETRON INJ 2 MG/ML 2 ML VIAL IV PRN (15:08)
[2018-10-09] MEDS: DAPTOmycin 400 MG in SYRINGE 0 ML IV SCH (16:11)
[2018-10-09] MEDS: METOCLOPRAMIDE HCL INJ 5 MG/ML 2 ML VIAL IV PRN (16:43)
--- NOTE | 2018-10-09 17:03 | Critical Care Consultation ---
Date of Consultation October 09, 2018 Assessment & Plan (1) Admitted to intensive care unit: Neuro- awake alert but confused CV- Hypotension post op requiring norepinephrine. will try to titrate down. careful CAD, ischemic cardiomyopathy Pulmonary- sat well on NC ID- paraspinal abscess on daptomycin Renal- acute renal failure improving cr. UOP poor will give fluid but will need to be careful with fluids GI- diet as tolerated Heme-anemia Endocrine- blood sugars controlled Dispo- monitor in ICU for hemodynamic support I have personally spent 40 minutes of critical care time in the direct management of this patient. This is a life/limb threatening event. This includes time spent evaluating patient, direct bedside care, chart review, placing orders, interpretation of diagnostic studies, discussion with consultants, patient, and/or family members regarding treatment decisions, as well as other required patient management activities. This time is exclusive of all separately billable procedures, and teaching time and separate from and in addition to any other critical care service time. History of Present Illness Attending Physician: Malik Fernandez MD History of Present Illness 67 y/o male with a history of CHF, CAD, HTM , hyperlipidemia, DM, ANTONIO who initially presented for altered mental status and had recent paraspinal abscess. due to pain returned to OR today for fusion L1-L2 L3-4. post op he was hypotensive so transferred to the ICU. He has a histroy of complications post op. He complains of back pain but denies other complaints. no chest pain no SOB. Allergies Allergy/AdvReac Type Severity Reaction Status Date / Time No Known Allergies Allergy Verified 08/01/18 15:19 Home Medications Home Medications Medication Instructions Recorded Confirmed Type magnesium oxide 400 mg PO QAM #0 tab 11/27/11 09/27/18 History losartan 50 mg PO QAM #0 tab 05/26/12 09/27/18 History omega [id number] oil [Fish Oil] 1 cap PO QAM #0 cap 05/26/12 09/27/18 History atorvastatin 40 mg PO HS #0 tab 11/12/14 09/27/18 History coenzyme Q10 100 mg PO QAM #0 11/12/14 09/27/18 History finasteride [Proscar] 5 mg PO QAM #0 11/12/14 09/27/18 History insulin aspart U-100 10 unit SC TIDM #0 03/07/16 09/27/18 History metoprolol succinate [Toprol XL] 100 mg PO QAM #0 03/07/16 09/27/18 History metformin 1,000 mg PO BID 05/16/18 09/27/18 History vitamin B complex 1 tab PO QAM 07/22/18 09/27/18 History aspirin [Ecotrin Low Strength] 81 mg PO QAM #30 tab 08/14/18 09/27/18 Rx clopidogrel 75 mg PO QAM #30 tab 08/14/18 09/27/18 Rx furosemide 40 mg PO DAILY #30 tab 08/14/18 09/27/18 Rx sennosides-docusate sodium [Senna 2 tab PO BID #3 tab 08/14/18 09/27/18 Rx with Docusate Sodium] tamsulosin 0.4 mg PO HS #3 cap 08/14/18 09/27/18 Rx Glucagon Emergency Kit (human) 1 dose IM DIRECTED PRN 08/26/18 09/27/18 History Insta-Glucose 1 dose PO 08/26/18 History acetaminophen 650 mg PO Q6H PRN 08/26/18 09/27/18 History bisacodyl [Dulcolax (bisacodyl)] 10 mg IL DAILY PRN 08/26/18 09/27/18 History cholecalciferol (vitamin D3) 2,000 units PO DAILY 08/26/18 09/27/18 History [Vitamin D3] cyanocobalamin (vitamin B-12) 1,000 mcg PO DAILY 08/26/18 09/27/18 History [Vitamin B-12] magnesium hydroxide [Milk of 30 ml PO DAILY PRN 08/26/18 09/27/18 History Magnesia] sodium phosphates [Fleet Pediatric] 118 ml IL DAILY PRN 08/26/18 09/27/18 History insulin detemir U-100 7 unit SUBCUT BID 09/03/18 09/27/18 History lidocaine 1 patch TOP DAILY #1 ea 09/16/18 09/27/18 Rx oxycodone 5 mg PO Q6 PRN #15 tab 09/16/18 09/27/18 Rx potassium chloride [Klor-Con M20] 40 meq PO DAILY #30 tab 09/16/18 09/27/18 Rx insulin lispro [Humalog U-100 1 sliding scale dose SUBCUT 09/27/18 09/27/18 History Insulin] USEASDIRECTD linezolid [Zyvox] 600 mg PO Q12H 09/27/18 09/27/18 History multivitamin 1 tab PO QAM 09/27/18 09/27/18 History ondansetron HCl 4 mg PO Q6 PRN 09/27/18 09/27/18 History oxycodone [OxyContin] 10 mg PO Q12H 09/27/18 09/27/18 History Patient History Medical History Acute UTI (urinary tract infection) Difficult airway for intubation [employer] 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 Admitted [facility] 10/18/11 for onset of incapacitating cervical myelopathy. Spinal tap showed [employer] Lyme disease, MRI showed severe spinal cord compression at C3-4 with myelomalacia and intramedullary mass. Pt had c-spine surgery, subsequent prolonged hospital admission, complicated post-op course. Difficult intubation Sudden cardiac Post-op 2011 [facility]. Now has ICD. Sleep apnea PT NOT CURRENTLY CPAP 2/2 recurrent sinus infections. WILL SEE SLEEP MEDICINE/DR. ARCHULETA LATE 2017 Diabetes mellitus, type 2 IDDM. 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 - UNSURE IF HE HAS STENTS. History of tracheostomy Hx of transurethral resection of prostate History of cataract extraction with lens replacement Hx of tonsillectomy (Acute) H/O cervical spine surgery (Acute) ACDI C3-4, C7 corpectomy, removal of C7 intramedullary mass. History of lumbar spinal fusion (Acute) S/P triple vessel bypass (Acute) [facility] 2002 History of lumbar surgery 09/10/18 Glidescope 3 okay visualization but difficulty passing ETT, unable to pass 8.0, able to pass 7.0 with some difficulty History of incision and drainage Lumbar spine on 3/4; complicated by difficult intubation with only #6.5 ETT able to be placed and patient kept intubated post op Family History Other Diabetes Hypertension No pertinent family history Social History Preferred Language: Macanese Communication Ability: Impaired Visual Impairment: No Limitations Hearing Ability: Normal Beliefs That Will Affect Care: None marital status: Current Living Situation: Rehab Current Living Situation Comment: temporarily living at [facility] Feels Safe at Home: Yes Smoking Status: Never smoker Tobacco Type: smokeless tobacco Second Hand Exposure: No Hx Alcohol Use: No Hx Substance Use: No Review of Systems Review of Systems: Unobtainable due to cognitive status Physical Exam Physical Exam: Constitutional: Comfortable NAD HEENT: normocephalic atraumatic. MMM. no cervical lymphadenopathy CV: RRR nl s1,s2 no murmurs rubs or gallops Lungs: clear to auscultation bilaterally. no accessory muscle use Abd: soft nontender nondistended. normal bowel sounds Ext: no edema. no cyanosis, no clubbing. R arm PICC Skin: warm dry. DOMINGA drain Neuro: alert and awake. moving all extremities Psych: normal mood and affect Results & Data Vital Signs (Past 12 Hours) Vital Signs Temp Pulse Pulse Pulse Resp BP BP 10/09/18 15:31 96 H 15 93/59 L 10/09/18 15:30 93 H 11 L 10/09/18 15:16 89 21 113/62 10/09/18 15:01 86 11 L 106/69 10/09/18 14:46 90 15 84/56 L 10/09/18 14:31 82 20 93/52 L 10/09/18 14:16 81 20 105/58 L 10/09/18 14:01 83 19 101/58 L 10/09/18 13:46 80 19 96/52 L 10/09/18 13:37 83 19 108/58 L 10/09/18 13:33 82 19 104/50 L 10/09/18 13:15 81 19 97/57 L 10/09/18 13:05 36.0 C L 79 21 94/66 L 10/09/18 12:55 82 19 101/59 L 10/09/18 12:45 80 20 117/64 10/09/18 12:35 82 19 105/64 10/09/18 12:25 93 H 21 104/63 10/09/18 12:15 86 16 101/57 L 10/09/18 12:05 36.3 C L 90 17 79/52 L 10/09/18 07:26 37 C 82 18 142/79 H 10/09/18 07:07 36.7 C 81 16 116/68 Pulse Ox 10/09/18 15:31 100 10/09/18 15:30 10/09/18 15:16 100 10/09/18 15:01 100 10/09/18 14:46 100 10/09/18 14:31 100 10/09/18 14:16 100 10/09/18 14:01 100 10/09/18 13:46 100 10/09/18 13:37 100 10/09/18 13:33 100 10/09/18 13:15 98 10/09/18 13:05 98 10/09/18 12:55 100 10/09/18 12:45 100 10/09/18 12:35 100 10/09/18 12:25 100 10/09/18 12:15 94 10/09/18 12:05 97 10/09/18 07:26 98 10/09/18 07:07 99 Laboratory Results Laboratory Results - last 24 hr 10/07/18 10/08/18 10/08/18 09:41 17:33 20:46 WBC RBC Hgb Hct MCV MCH MCHC RDW Std Deviation RDW Coeff of Norbert Plt Count MPV Sodium Potassium Chloride Carbon Dioxide Anion Gap BUN Creatinine Est Cr Clr Drug Dosing Est GFR ( Amer) Est GFR (Non-Af Amer) BUN/Creatinine Ratio Glucose POC Glucose 107 H 159 H Calcium Blood Type A Positive Antibody Screen POSITIVE A Antibody Identification Anti-E Crossmatch See Detail 10/09/18 10/09/18 10/09/18 05:58 06:08 06:08 WBC 8.04 RBC 3.70 L Hgb 10.3 L Hct 31.0 L MCV 83.8 MCH 27.8 MCHC 33.2 RDW Std Deviation 47.3 H RDW Coeff of Norbert 15.5 H Plt Count 79 L MPV 9.5 Sodium 138 Potassium 3.8 Chloride 107 Carbon Dioxide 23 Anion Gap 8.0 BUN 21 H Creatinine 1.43 H Est Cr Clr Drug Dosing 58.4 Est GFR ( Amer) 59.1 Est GFR (Non-Af Amer) 51.0 BUN/Creatinine Ratio 14.8 Glucose 123 H POC Glucose 116 H Calcium 8.4 L Blood Type Antibody Screen Antibody Identification Crossmatch 10/09/18 10/09/18 10/09/18 11:02 12:29 12:55 WBC RBC Hgb 8.4 L 8.5 L Hct 25.4 L 25.1 L MCV MCH MCHC RDW Std Deviation RDW Coeff of Norbert Plt Count MPV Sodium Potassium Chloride Carbon Dioxide Anion Gap BUN Creatinine Est Cr Clr Drug Dosing Est GFR ( Amer) Est GFR (Non-Af Amer) BUN/Creatinine Ratio Glucose POC Glucose 165 H Calcium Blood Type Antibody Screen Antibody Identification Crossmatch 10/09/18 16:37 WBC RBC Hgb Hct MCV MCH MCHC RDW Std Deviation RDW Coeff of Norbert Plt Count MPV Sodium Potassium Chloride Carbon Dioxide Anion Gap BUN Creatinine Est Cr Clr Drug Dosing Est GFR ( Amer) Est GFR (Non-Af Amer) BUN/Creatinine Ratio Glucose POC Glucose 190 H Calcium Blood Type Antibody Screen Antibody Identification Crossmatch
[2018-10-09 17:34] LABS: Hematocrit (blood only) 24.6 % (42-52); Hemoglobin 8.3 g/dL (14.0-18.0)
[2018-10-09] MEDS ORDERED: LACTATED RINGER'S 500 ML IV ONE (17:41)
--- NOTE | 2018-10-09 18:25 | Hospitalist Progress Note ---
Date of Service October 09, 2018 Assessment & Plan (1) Paraspinal abscess: had surgery on 09/10/18, changed Zyvox to daptomycin due to thrombocytopenia Lumbar CT 09/30 showing L2-L3 and L3-L4 discitis osteolytis - post op 10/09 - ICU for pressor support due to low pressures post op (2) Acute kidney injury: PAULA on CKD. The patient's creatinine is trending back down. Per nephro, recovery will likely be prolonged. Fractional excretion calculates to less than 1% indicating a prerenal source of PAULA. - nephrology consulted - has signed off at this point - continue serial prps (3) Thrombocytopenia: Platelets dropped to 79,000 from 250,000 on admission. Heparin antibodies were negative. Zyvox adverse effect includes thrombocytopenia. Discussed with ID changed to daptomycin As this will be a prolonged course, will need to monitor CPK at least weekly since patient is on statin. I'm hesitant to take statin off his profile due to his cardiac history. (4) Altered mental status: resolved metabolic encephalopathy due to PAULA on CKD, chronic pain, chronic infection, and on narcotics (5) Coagulase-negative staphylococcal infection: Wound culture 09/10 Daptomycin as above was on Vanco but stopped due to PAULA BC no growth f/u Dr. Ndiaye for further instructions (6) Post-operative pain: Continue narcotic therapy for chronic pain management. Appreciate orthopedic consultation and management of the infection. Fentanyl dosage increased 10/04 to 25 mcg patch every 3 days (7) Chronic systolic heart failure: No current CHF exacerbation. IVF dc'd, will continue to hold furosemide See above concerning last echo (8) Urinary retention: continue luna, changed 09/29 for funguria (9) Acute anemia: Given a total of 3 u PRBCs this admission. Hgb with drop to 8.3 after surgery and remained stable (10) Ischemic cardiomyopathy: Continue current medical management - plavix held per surgery for surgery. Restart when ok with surgery (11) ICD (implantable cardioverter-defibrillator) in place: Stable (12) Diabetes mellitus, type 2: diabetic diet Novolog (13) Acute UTI (urinary tract infection): Fungal elements isolated. Intravenous caspofungin through October 05. Repeat UC pending (14) DVT prophylaxis: heparin subq held for low platelets Subjective Seen post op in ICU. Awake and alert, some pain. and sister in law at bedside, questions answered. Review of Systems Review of Systems: All systems reviewed & are unremarkable except as noted in HPI & below Physical Exam Physical Exam: General: no distress Eyes: normal inspection, PERLL Respiratory: chest non tender, clear to auscultation, normal breath sounds, no respiratory distress, no accessory muscle use Cardiac: regular rate and rhythm, no rub or gallop, no murmur, no edema, no jvd GI/: active bowel sounds, no abd pain or tenderness, soft, non distended Extremities: normal range of motion, normal strength, non tender Neuro/Psych: alert and oriented x 3, normal mood and affect Skin: normal color, dry Results & Data Vital Signs (Past 12 Hours) Vital Signs Temp Pulse Pulse Pulse Resp BP BP 10/09/18 17:46 102 H 15 125/64 10/09/18 17:31 97 H 22 96/58 L 10/09/18 17:16 109 H 20 96/50 L 10/09/18 17:01 106 H 12 71/46 L 10/09/18 17:00 106 H 16 10/09/18 16:46 104 H 12 122/68 10/09/18 16:31 93 H 23 101/63 10/09/18 16:16 93 H 20 112/59 L 10/09/18 16:01 93 H 24 88/54 L 10/09/18 16:00 91 H 13 10/09/18 15:46 91 H 15 94/49 L 10/09/18 15:32 92 H 15 10/09/18 15:31 96 H 15 93/59 L 10/09/18 15:30 93 H 11 L 10/09/18 15:16 89 21 113/62 10/09/18 15:01 86 11 L 106/69 10/09/18 14:46 90 15 84/56 L 10/09/18 14:31 82 20 93/52 L 10/09/18 14:16 81 20 105/58 L 10/09/18 14:01 83 19 101/58 L 10/09/18 13:46 80 19 96/52 L 10/09/18 13:37 83 19 108/58 L 10/09/18 13:33 82 19 104/50 L 10/09/18 13:15 81 19 97/57 L 10/09/18 13:05 36.0 C L 79 21 94/66 L 10/09/18 12:55 82 19 101/59 L 10/09/18 12:45 80 20 117/64 10/09/18 12:35 82 19 105/64 10/09/18 12:25 93 H 21 104/63 10/09/18 12:15 86 16 101/57 L 10/09/18 12:05 36.3 C L 90 17 79/52 L 10/09/18 07:26 37 C 82 18 142/79 H 10/09/18 07:07 36.7 C 81 16 116/68 Pulse Ox 10/09/18 17:46 100 10/09/18 17:31 100 10/09/18 17:16 100 10/09/18 17:01 100 10/09/18 17:00 100 10/09/18 16:46 100 10/09/18 16:31 100 10/09/18 16:16 100 10/09/18 16:01 100 10/09/18 16:00 100 10/09/18 15:46 100 10/09/18 15:32 100 10/09/18 15:31 100 10/09/18 15:30 10/09/18 15:16 100 10/09/18 15:01 100 10/09/18 14:46 100 10/09/18 14:31 100 10/09/18 14:16 100 10/09/18 14:01 100 10/09/18 13:46 100 10/09/18 13:37 100 10/09/18 13:33 100 10/09/18 13:15 98 10/09/18 13:05 98 10/09/18 12:55 100 10/09/18 12:45 100 10/09/18 12:35 100 10/09/18 12:25 100 10/09/18 12:15 94 10/09/18 12:05 97 10/09/18 07:26 98 10/09/18 07:07 99
[2018-10-09] MEDS: TAMSULOSIN HCL 0.4 MG CAP PO SCH (20:01)
[2018-10-09] MEDS: ATORVASTATIN 40 MG TAB PO SCH (20:01)
[2018-10-10] MEDS: ONDANSETRON INJ 2 MG/ML 2 ML VIAL IV PRN ×4 (00:12→14:03)
[2018-10-10] MEDS: INSULIN ASPART 100 UNITS/ML 3 ML PEN SC SCH ×6 (00:12→23:52)
[2018-10-10] MEDS: SODIUM CHLORIDE 0.9% 1000ML 1,000 ML IV SCH (02:25)
[2018-10-10] MEDS: OXYCODONE HCL IR 5 MG TAB (IMMEDIATE RELEASE) PO PRN (04:42)
[2018-10-10 04:57] LABS: BUN Creatinine Ratio 12.4 (10-20); Calcium 8.1 mg/dl (8.5-10.1); Creatinine Clr Calc Pharmacy 41.1 ml/min; Est GFR (African American) 38.7; Est GFR (Non-African American) 33.4; Magnesium 1.9 mg/dl (1.8-2.4); Phosphorus 3.5 mg/dl (2.5-4.9); Potassium 4.5 mmol/L (3.5-5.1)
[2018-10-10 05:10] LABS: Hematocrit (blood only) 19.1 % (42-52); Hemoglobin 6.5 g/dL (14.0-18.0); Mean Corpuscular Volume 82.7 fL (80-100); Mean Platelet Volume 9.9 fL (7.4-10.4); Platelet Count 73 K/uL (130-400); RDW Coefficient of Variation 15.7 % (11.5-14.5); Red Blood Count 2.31 M/uL (4.7-6.1); White Blood Count 10.39 K/uL (4.8-10.8)
[2018-10-10 05:11] LABS: Basophils # (auto) 0.03 K/uL (0-0.2); Basophils % (auto) 0.3 %; Eosinophils # (auto) 0.02 K/uL (0-0.5); Eosinophils % (auto) 0.2 %; Immature Granulocytes # (auto) 0.05 K/uL (0.00-0.02); Immature Granulocytes % (auto) 0.5 %; Lymphocytes # (auto) 0.79 K/uL (1.2-3.4); Lymphocytes % (auto) 7.6 %; Monocytes # (auto) 1.67 K/uL (0.11-0.59); Monocytes % (auto) 16.1 %; Neutrophils # (auto) 7.83 K/uL (1.4-6.5); Neutrophils % (auto) 75.3 %; Platelet Estimate Decreased (Normal); RBC Morphology Unremarkable
[2018-10-10] MEDS ORDERED: SODIUM CHLORIDE 0.9% 250 ML IV PRN ×3 (05:49→21:58)
[2018-10-10] MEDS: POLYETHYLENE (MIRALAX) 17 GM PACK PO SCH ×4 (06:37→23:27)
--- NOTE | 2018-10-10 07:55 | Critical Care Progress Note ---
Date of Service October 10, 2018 Assessment & Plan (1) Admitted to intensive care unit: Neuro- awake alert but confused agitated at times CV- Hypotension post op requiring norepinephrine. decreasing doses. CAD, ischemic cardiomyopathy Pulmonary- sat well on NC ID- paraspinal abscess on daptomycin Renal- acute renal failure cr worsening . UOP poor will hold further fluid as getting overloaded GI- diet as tolerated Heme-anemia due to blood loss. transfuse for hgb >7 Endocrine- blood sugars controlled Dispo- monitor in ICU for hemodynamic support I have personally spent 40 minutes of critical care time in the direct management of this patient. This is a life/limb threatening event. This includes time spent evaluating patient, direct bedside care, chart review, placing orders, interpretation of diagnostic studies, discussion with consultants, patient, and/or family members regarding treatment decisions, as well as other required patient management activities. This time is exclusive of all separately billable procedures, and teaching time and separate from and in addition to any other critical care service time. Subjective complains of some abdominal pain. remains on vasopressors UOP remains poor confused and agitated overnight Physical Exam Physical Exam: Constitutional: Comfortable NAD HEENT: normocephalic atraumatic. CV: RRR nl s1,s2 no murmurs rubs or gallops Lungs: clear to auscultation bilaterally. no accessory muscle use Abd: soft nontender nondistended. normal bowel sounds Ext: no edema. no cyanosis, no clubbing. R arm PICC Skin: warm dry. Neuro: alert but confused. moving all extremities. strength 4+/5 lower ext Psych: normal mood and affect Results & Data Vital Signs (Past 12 Hours) Vital Signs Temp Pulse Resp BP Pulse Ox 10/10/18 06:43 37.1 C 110 H 14 100/54 L 100 10/10/18 06:28 37.3 C 109 H 22 98/54 L 98 10/10/18 06:11 37.4 C 110 H 24 100/53 L 100 10/10/18 04:16 109 H 28 H 90/50 L 98 10/10/18 04:01 114 H 10 L 93/48 L 10/10/18 04:00 37.3 C 115 H 15 10/10/18 03:46 121 H 14 93/56 L 100 10/10/18 03:31 115 H 17 89/57 L 100 10/10/18 03:30 115 H 17 100 10/10/18 03:26 117 H 25 H 98/65 L 100 10/10/18 03:16 120 H 16 162/146 H 100 10/10/18 03:01 107 H 28 H 130/71 99 10/10/18 03:00 110 H 22 100 10/10/18 02:46 109 H 23 107/59 L 99 10/10/18 02:31 105 H 23 118/53 L 94 10/10/18 02:30 105 H 25 H 94 10/10/18 02:16 105 H 22 96/48 L 98 10/10/18 02:01 103 H 22 102/51 L 99 10/10/18 02:00 103 H 21 100 10/10/18 01:47 104 H 20 99 10/10/18 01:46 103 H 22 93/46 L 99 10/10/18 01:31 106 H 25 H 94/50 L 99 10/10/18 01:30 106 H 24 98 10/10/18 01:27 109 H 25 H 88/49 L 100 10/10/18 01:16 107 H 24 84/48 L 99 10/10/18 01:01 113 H 18 92/47 L 98 10/10/18 01:00 113 H 18 97 10/10/18 00:57 112 H 23 94/47 L 99 10/10/18 00:30 101 H 24 97 10/10/18 00:16 102 H 24 109/57 L 97 10/10/18 00:05 103 H 26 H 103/57 L 97 10/10/18 00:02 113 H 20 77/45 L 100 10/10/18 00:00 36.9 C 79 20 99 10/09/18 23:46 99 H 15 108/54 L 96 10/09/18 23:31 96 H 16 101/55 L 98 10/09/18 23:30 95 H 12 99 10/09/18 23:16 97 H 17 102/54 L 96 10/09/18 23:01 99 H 22 94/55 L 97 10/09/18 22:46 100 H 13 93/52 L 99 10/09/18 22:31 97 H 15 97/48 L 98 10/09/18 22:16 99 H 20 93/53 L 98 10/09/18 22:00 100 H 20 103/55 L 96 10/09/18 21:46 101 H 6 L 93/53 L 98 10/09/18 21:31 105 H 16 106/56 L 99 10/09/18 21:16 107 H 21 107/56 L 98 10/09/18 21:00 109 H 18 108/53 L 98 10/09/18 20:30 116 H 16 113/59 L 95 10/09/18 20:16 115 H 17 114/65 99 10/09/18 20:00 36.6 C 100 H 16 121/61 100 Laboratory Results Laboratory Results - last 24 hr 10/07/18 10/09/18 10/09/18 09:41 11:02 12:29 WBC RBC Hgb 8.4 L 8.5 L Hct 25.4 L 25.1 L MCV MCH MCHC RDW Std Deviation RDW Coeff of Norbert Plt Count MPV Immature Gran % (Auto) Neut % (Auto) Lymph % (Auto) [place] % (Auto) Eos % (Auto) Baso % (Auto) Immature Gran # (Auto) Neut # (Auto) Lymph # (Auto) [place] # (Auto) Eos # (Auto) Baso # (Auto) Platelet Estimate RBC Morphology Sodium Potassium Chloride Carbon Dioxide Anion Gap BUN Creatinine Est Cr Clr Drug Dosing Est GFR ( Amer) Est GFR (Non-Af Amer) BUN/Creatinine Ratio Glucose POC Glucose Calcium Phosphorus Magnesium Blood Type A Positive Antibody Screen POSITIVE A Antibody Identification Anti-E Crossmatch See Detail 10/09/18 10/09/18 10/09/18 12:55 16:37 17:29 WBC RBC Hgb 8.3 L Hct 24.6 L MCV MCH MCHC RDW Std Deviation RDW Coeff of Norbert Plt Count MPV Immature Gran % (Auto) Neut % (Auto) Lymph % (Auto) [place] % (Auto) Eos % (Auto) Baso % (Auto) Immature Gran # (Auto) Neut # (Auto) Lymph # (Auto) [place] # (Auto) Eos # (Auto) Baso # (Auto) Platelet Estimate RBC Morphology Sodium Potassium Chloride Carbon Dioxide Anion Gap BUN Creatinine Est Cr Clr Drug Dosing Est GFR ( Amer) Est GFR (Non-Af Amer) BUN/Creatinine Ratio Glucose POC Glucose 165 H 190 H Calcium Phosphorus Magnesium Blood Type Antibody Screen Antibody Identification Crossmatch 10/10/18 10/10/18 10/10/18 00:00 04:08 04:08 WBC 10.39 RBC 2.31 L Hgb 6.5 L* Hct 19.1 L* MCV 82.7 MCH 28.1 MCHC 34.0 RDW Std Deviation 48.0 H RDW Coeff of Norbert 15.7 H Plt Count 73 L MPV 9.9 Immature Gran % (Auto) 0.5 Neut % (Auto) 75.3 Lymph % (Auto) 7.6 [place] % (Auto) 16.1 Eos % (Auto) 0.2 Baso % (Auto) 0.3 Immature Gran # (Auto) 0.05 H Neut # (Auto) 7.83 H Lymph # (Auto) 0.79 L [place] # (Auto) 1.67 H Eos # (Auto) 0.02 Baso # (Auto) 0.03 Platelet Estimate Decreased RBC Morphology Unremarkable Sodium 137 Potassium 4.5 D Chloride 109 H Carbon Dioxide 22 Anion Gap 6.0 BUN 25 H Creatinine 2.03 H D Est Cr Clr Drug Dosing 41.1 Est GFR ( Amer) 38.7 Est GFR (Non-Af Amer) 33.4 BUN/Creatinine Ratio 12.4 Glucose 190 H POC Glucose 239 H Calcium 8.1 L Phosphorus 3.5 Magnesium 1.9 Blood Type Antibody Screen Antibody Identification Crossmatch 10/10/18 06:32 WBC RBC Hgb Hct MCV MCH MCHC RDW Std Deviation RDW Coeff of Norbert Plt Count MPV Immature Gran % (Auto) Neut % (Auto) Lymph % (Auto) [place] % (Auto) Eos % (Auto) Baso % (Auto) Immature Gran # (Auto) Neut # (Auto) Lymph # (Auto) [place] # (Auto) Eos # (Auto) Baso # (Auto) Platelet Estimate RBC Morphology Sodium Potassium Chloride Carbon Dioxide Anion Gap BUN Creatinine Est Cr Clr Drug Dosing Est GFR ( Amer) Est GFR (Non-Af Amer) BUN/Creatinine Ratio Glucose POC Glucose 198 H Calcium Phosphorus Magnesium Blood Type Antibody Screen Antibody Identification Crossmatch
[2018-10-10] MEDS: MAGNESIUM OXIDE 400 MG TAB PO SCH (08:03)
[2018-10-10] MEDS: CHOLECALCIFEROL 1,000 UNITS TAB PO SCH (08:03)
[2018-10-10] MEDS: CYANOCOBALAMIN 500 MCG TABLET (VITAMIN B-12) PO SCH (08:03)
[2018-10-10] MEDS: METOPROLOL SUCC 50MG EXT REL TAB PO SCH (08:03)
[2018-10-10] MEDS: FINASTERIDE 5 MG TAB PO SCH (08:04)
[2018-10-10] MEDS: ASPIRIN 81 MG ECTAB PO SCH (08:04)
[2018-10-10] MEDS: ALUMINUM/MAGNESIUM SUSP 30 ML UDC PO PRN ×2 (08:06→17:42)
--- NOTE | 2018-10-10 09:16 | Hospitalist Progress Note ---
Date of Service October 10, 2018 Assessment & Plan (1) Paraspinal abscess: had surgery on 09/10/18, changed Zyvox to daptomycin due to thrombocytopenia Lumbar CT 09/30 showing L2-L3 and L3-L4 discitis osteolytis - post op 10/09 -continues to require pressor support in the ICU - wound care per surgery (2) Acute kidney injury: PAULA on CKD. The patient's creatinine had been improving but is back up to 2.03 today - nephrology consulted - has signed off at this point - may want to have them come back on board if kidney function worsens - continue serial prps (3) Thrombocytopenia: Platelets has dropped to 73,000 from 250,000 on admission. Heparin antibodies were negative. Zyvox adverse effect includes thrombocytopenia. Discussed with ID changed to daptomycin As this will be a prolonged course, will need to monitor CPK at least weekly since patient is on statin. I'm hesitant to take statin off his profile due to his cardiac history. (4) Altered mental status: had resolved but patient had some confusion overnight metabolic encephalopathy due to PAULA on CKD, chronic pain, chronic infection, and on narcotics (5) Coagulase-negative staphylococcal infection: Wound culture 09/10 Daptomycin as above was on Vanco but stopped due to PAULA BC no growth f/u Dr. Ndiaye for further instructions (6) Post-operative pain: Continue narcotic therapy for chronic pain management. Appreciate orthopedic consultation and management of the infection. Fentanyl dosage increased 10/04 to 25 mcg patch every 3 days (7) Chronic systolic heart failure: Currently fluid overloaded. IVF dc'd Last echo 07/2018 - ejection fraction of 30-35% (8) Urinary retention: continue luna, changed 09/29 for funguria (9) Acute anemia: Given a total of 7u PRBCs this admission. Hgb with drop to 6.5 after surgery and remained stable (10) Ischemic cardiomyopathy: Continue current medical management - plavix held per surgery for surgery. Restart when ok with surgery. ASA restarted (11) ICD (implantable cardioverter-defibrillator) in place: Stable (12) Diabetes mellitus, type 2: diabetic diet Novolog, lantus (13) Acute UTI (urinary tract infection): Fungal elements isolated. Intravenous caspofungin through October 05. Repeat UC - no fungal growth (14) DVT prophylaxis: heparin subq held for low platelets and bleeding Subjective Per nursing, patient has been nauseas and vomiting today, will receive 4 units total prbcs. Back dressing was saturated overnight. Patient denies pain initially although he does report continued lower abdominal pain when palpating. Continues to require pressor support Review of Systems Review of Systems: All systems reviewed & are unremarkable except as noted in HPI & below Physical Exam Physical Exam: General: no distress Eyes: sclera edematous , PERLL Respiratory: chest non tender, clear to auscultation, normal breath sounds, no respiratory distress, no accessory muscle use Cardiac: regular rate and rhythm, no rub or gallop, no murmur, +2 pitting edema lower extremities, generalized edema GI/: active bowel sounds, no abd pain or tenderness, soft, non distended Extremities: generalized weakness Neuro/Psych: alert and oriented x 3, normal mood and affect Skin: pale , dry Results & Data Vital Signs (Past 12 Hours) Vital Signs Temp Pulse Resp BP Pulse Ox 10/10/18 08:13 36.8 C 114 H 25 H 104/52 L 99 10/10/18 08:01 114 H 24 104/52 L 99 10/10/18 07:13 37 C 110 H 102/57 L 100 10/10/18 07:01 109 H 18 102/55 L 97 10/10/18 06:43 37.1 C 110 H 14 100/54 L 100 10/10/18 06:28 37.3 C 109 H 22 98/54 L 98 10/10/18 06:11 37.4 C 110 H 24 100/53 L 100 10/10/18 04:16 109 H 28 H 90/50 L 98 10/10/18 04:01 114 H 10 L 93/48 L 10/10/18 04:00 37.3 C 115 H 15 10/10/18 03:46 121 H 14 93/56 L 100 10/10/18 03:31 115 H 17 89/57 L 100 10/10/18 03:30 115 H 17 100 10/10/18 03:26 117 H 25 H 98/65 L 100 10/10/18 03:16 120 H 16 162/146 H 100 10/10/18 03:01 107 H 28 H 130/71 99 10/10/18 03:00 110 H 22 100 10/10/18 02:46 109 H 23 107/59 L 99 10/10/18 02:31 105 H 23 118/53 L 94 10/10/18 02:30 105 H 25 H 94 10/10/18 02:16 105 H 22 96/48 L 98 10/10/18 02:01 103 H 22 102/51 L 99 10/10/18 02:00 103 H 21 100 10/10/18 01:47 104 H 20 99 10/10/18 01:46 103 H 22 93/46 L 99 10/10/18 01:31 106 H 25 H 94/50 L 99 10/10/18 01:30 106 H 24 98 10/10/18 01:27 109 H 25 H 88/49 L 100 10/10/18 01:16 107 H 24 84/48 L 99 10/10/18 01:01 113 H 18 92/47 L 98 10/10/18 01:00 113 H 18 97 10/10/18 00:57 112 H 23 94/47 L 99 10/10/18 00:30 101 H 24 97 10/10/18 00:16 102 H 24 109/57 L 97 10/10/18 00:05 103 H 26 H 103/57 L 97 10/10/18 00:02 113 H 20 77/45 L 100 10/10/18 00:00 36.9 C 79 20 99 10/09/18 23:46 99 H 15 108/54 L 96 10/09/18 23:31 96 H 16 101/55 L 98 10/09/18 23:30 95 H 12 99 10/09/18 23:16 97 H 17 102/54 L 96 10/09/18 23:01 99 H 22 94/55 L 97 10/09/18 22:46 100 H 13 93/52 L 99 10/09/18 22:31 97 H 15 97/48 L 98 10/09/18 22:16 99 H 20 93/53 L 98 10/09/18 22:00 100 H 20 103/55 L 96 10/09/18 21:46 101 H 6 L 93/53 L 98 10/09/18 21:31 105 H 16 106/56 L 99 10/09/18 21:16 107 H 21 107/56 L 98
--- NOTE | 2018-10-10 09:37 | Cardiology Progress Note ---
Date of Service October 10, 2018 Assessment & Plan (1) Coronary artery disease: The patient has an extensive cardiac history. Cardiac catheterization performed in July noted a patent DELATORRE and FERNANDO along with significant [place] coronary disease. However, none nothing was interveneable at that time and medical care was recommended. The patient has done well since that time without episodes of angina pectoris, he has having what is described as "heartburn" which could be angina. He certainly has reason to have ischemia given his anemia, use of Levophed, hypotension and stress. (2) Ischemic cardiomyopathy: Left ventricular systolic function was moderately reduced with an ejection fraction of 30-35% on an echocardiogram performed in July 2018. At this point I would not repeat it unless we have difficulty with congestive heart failure. (3) Chronic systolic (congestive) heart failure: Clinically he has done well with his heart failure prior to surgery. Now he has evidence of fluid overload, however that appears to be iatrogenic from blood and volume to treat his hypotension and anemia. I do not think that reflects worsening of his cardiac function. (4) ICD (implantable cardioverter-defibrillator) in place: The patient had a single-chamber ICD placed after an episode of sudden cardiac in October 2011. His device has been functioning properly and was checked most recently on May 12, 2018. It probably does not need to be interrogated this admission but I may do that before he goes home just to be sure that there are no issues. Subjective He is awake and alert, he does not seem to be in distress. When asked he does complain of "heartburn" which was treated this morning with Maalox and Zofran and apparently resolved that issue. He does point to his midsternal region for that. He is not complaining shortness of breath and he is having minimal back pain. He has been having difficulty with anemia and hypotension, he is still on Levophed but at a very low dose. Evidently that could not be weaned off during the night without causing hypotension. Physical Exam Physical Exam: Constitutional: Alert, cooperative and in mild distress. Pulmonary: Clear to auscultation bilaterally. Cardiac: Regular somewhat rapid rhythm with no murmur, gallop or rub. Abdomen: Soft, nontender with normal bowel sounds. Extremities: Marked edema of legs, arms, consistent with anasarca. Skin: No rash, ecchymoses or petechiae. Results & Data Vital Signs (Past 12 Hours) Vital Signs Temp Pulse Resp BP Pulse Ox 10/10/18 09:12 114 H 10/10/18 08:13 36.8 C 114 H 25 H 104/52 L 99 10/10/18 08:01 114 H 24 104/52 L 99 10/10/18 07:13 37 C 110 H 102/57 L 100 10/10/18 07:01 109 H 18 102/55 L 97 10/10/18 06:43 37.1 C 110 H 14 100/54 L 100 10/10/18 06:28 37.3 C 109 H 22 98/54 L 98 10/10/18 06:11 37.4 C 110 H 24 100/53 L 100 10/10/18 04:16 109 H 28 H 90/50 L 98 10/10/18 04:01 114 H 10 L 93/48 L 10/10/18 04:00 37.3 C 115 H 15 10/10/18 03:46 121 H 14 93/56 L 100 10/10/18 03:31 115 H 17 89/57 L 100 10/10/18 03:30 115 H 17 100 10/10/18 03:26 117 H 25 H 98/65 L 100 10/10/18 03:16 120 H 16 162/146 H 100 10/10/18 03:01 107 H 28 H 130/71 99 10/10/18 03:00 110 H 22 100 10/10/18 02:46 109 H 23 107/59 L 99 10/10/18 02:31 105 H 23 118/53 L 94 10/10/18 02:30 105 H 25 H 94 10/10/18 02:16 105 H 22 96/48 L 98 10/10/18 02:01 103 H 22 102/51 L 99 10/10/18 02:00 103 H 21 100 10/10/18 01:47 104 H 20 99 10/10/18 01:46 103 H 22 93/46 L 99 10/10/18 01:31 106 H 25 H 94/50 L 99 10/10/18 01:30 106 H 24 98 10/10/18 01:27 109 H 25 H 88/49 L 100 10/10/18 01:16 107 H 24 84/48 L 99 10/10/18 01:01 113 H 18 92/47 L 98 10/10/18 01:00 113 H 18 97 10/10/18 00:57 112 H 23 94/47 L 99 10/10/18 00:30 101 H 24 97 10/10/18 00:16 102 H 24 109/57 L 97 10/10/18 00:05 103 H 26 H 103/57 L 97 10/10/18 00:02 113 H 20 77/45 L 100 10/10/18 00:00 36.9 C 79 20 99 10/09/18 23:46 99 H 15 108/54 L 96 10/09/18 23:31 96 H 16 101/55 L 98 10/09/18 23:30 95 H 12 99 10/09/18 23:16 97 H 17 102/54 L 96 10/09/18 23:01 99 H 22 94/55 L 97 10/09/18 22:46 100 H 13 93/52 L 99 10/09/18 22:31 97 H 15 97/48 L 98 10/09/18 22:16 99 H 20 93/53 L 98 10/09/18 22:00 100 H 20 103/55 L 96 10/09/18 21:46 101 H 6 L 93/53 L 98 10/09/18 21:31 105 H 16 106/56 L 99 Diagnostic Findings Telemetry: Sinus tachycardia, occasional PVCs. No significant arrhythmia.
[2018-10-10 11:28] LABS: Hematocrit (blood only) 20.8 % (42-52); Hemoglobin 7.3 g/dL (14.0-18.0); Mean Corpuscular Hgb Conc 35.1 g/dL (32-36); Mean Corpuscular Volume 81.9 fL (80-100); Mean Platelet Volume 9.2 fL (7.4-10.4); Nucleated RBC # (auto) 0.02 K/uL (0-0); Nucleated RBC % (auto) 0.2 %; Platelet Count 58 K/uL (130-400); RDW Coefficient of Variation 15.4 % (11.5-14.5); RDW Standard Deviation 45.9 fL (36.4-46.3); Red Blood Count 2.54 M/uL (4.7-6.1)
[2018-10-10 11:46] LABS: BUN Creatinine Ratio 13.2 (10-20); Calcium 7.9 mg/dl (8.5-10.1); Creatinine Clr Calc Pharmacy 43.5 ml/min; Est GFR (African American) 40.9; Est GFR (Non-African American) 35.3; Potassium 4.5 mmol/L (3.5-5.1)
[2018-10-10 11:51] LABS: Basophils # (auto) 0.03 K/uL (0-0.2); Basophils % (auto) 0.3 %; Eosinophils # (auto) 0.03 K/uL (0-0.5); Eosinophils % (auto) 0.3 %; Immature Granulocytes % (auto) 0.9 %; Lymphocytes # (auto) 0.78 K/uL (1.2-3.4); Lymphocytes % (auto) 6.9 %; Monocytes # (auto) 2.05 K/uL (0.11-0.59); Monocytes % (auto) 18.1 %; Neutrophils # (auto) 8.31 K/uL (1.4-6.5); Neutrophils % (auto) 73.5 %; RBC Morphology Unremarkable
[2018-10-10] MEDS: fentaNYL 25 MCG/HR TDSY TD SCH (14:03)
--- NOTE | 2018-10-10 14:34 | Infectious Disease Progress Nt ---
Date of Service October 10, 2018 Assessment & Plan (1) Paraspinal abscess: continue dapto for now, await repeat culture results. Subjective POD #2 back fusion, OR cultures pending, gram stain negative, remains on dapto. tolerating well. afebrile. Results & Data Vital Signs (Past 12 Hours) Vital Signs Temp Pulse Resp BP Pulse Ox 10/10/18 12:01 36.7 C 110 H 12 98/56 L 99 10/10/18 11:43 107 H 9 L 87/52 L 96 10/10/18 11:07 113 H 14 103/58 L 99 10/10/18 10:01 111 H 22 99/56 L 99 10/10/18 09:35 36.7 C 112 H 16 110/56 L 99 10/10/18 09:13 36.9 C 111 H 16 104/55 L 98 10/10/18 09:12 114 H 10/10/18 09:01 109 H 15 104/55 L 99 10/10/18 08:13 36.8 C 114 H 25 H 104/52 L 99 10/10/18 08:01 114 H 24 104/52 L 99 10/10/18 07:13 37 C 110 H 102/57 L 100 10/10/18 07:01 109 H 18 102/55 L 97 10/10/18 06:43 37.1 C 110 H 14 100/54 L 100 10/10/18 06:28 37.3 C 109 H 22 98/54 L 98 10/10/18 06:11 37.4 C 110 H 24 100/53 L 100 10/10/18 04:16 109 H 28 H 90/50 L 98 10/10/18 04:01 114 H 10 L 93/48 L 10/10/18 04:00 37.3 C 115 H 15 10/10/18 03:46 121 H 14 93/56 L 100 10/10/18 03:31 115 H 17 89/57 L 100 10/10/18 03:30 115 H 17 100 10/10/18 03:26 117 H 25 H 98/65 L 100 10/10/18 03:16 120 H 16 162/146 H 100 10/10/18 03:01 107 H 28 H 130/71 99 10/10/18 03:00 110 H 22 100 10/10/18 02:46 109 H 23 107/59 L 99 Laboratory Results Microbiology 10/09/18 10:02 Back,Lower Gram Stain - Final 10/07/18 01:00 Urine,Straight Cath Urine Culture - Final No growth - less than 1,000 colonies/mL. 09/27/18 12:05 Blood Blood Culture - Final No growth 09/27/18 11:55 Blood Blood Culture - Final No growth 09/27/18 Unknown Urine,Straight Cath Urine Culture - Final Tiffany albicans
--- NOTE | 2018-10-10 15:16 | Pharmacy Report ---
Pharmacy Glycemic Rec 1 - Date of Service October 10, 2018 - Scope Glycemic Pharmacist to provide recommendations to improve glycemic control (all ICU patients are screened for hyperglycemia and treatment recommendations are provided per protocol). Pt identified with hyperglycemia (BSG above 180) [place] [facility] [place] - Subjective The patient is a 67 year old M admitted on 09/27/18 16:16 for hallucinations, PAULA, discitis/osteomyelitis lumbar spin. Patient's past medical history is significant for type 2 diabetes mellitus. - Objective Accuchecks BSG (last 24hrs):: 10/09/18 10/10/18 10/10/18 16:37 00:00 04:08 Glucose 190 H POC Glucose 190 H 239 H 10/10/18 10/10/18 10/10/18 06:32 10:53 11:52 Glucose 197 H POC Glucose 198 H 208 H Laboratory Data (last 24hrs):: 10/10/18 10/10/18 10/10/18 04:08 04:08 10:53 WBC 10.39 Sodium 137 137 Potassium 4.5 D 4.5 Anion Gap 6.0 6.0 BUN 25 H 26 H Creatinine 2.03 H D 1.94 H BUN/Creatinine Ratio 12.4 13.2 Phosphorus 3.5 10/10/18 10:53 WBC 11.30 H Sodium Potassium Anion Gap BUN Creatinine BUN/Creatinine Ratio Phosphorus - Recent Pertinent Medications Outpatient Anti-diabetic Regimen: * Levemir 7 units BID * Novolog 10 units w/ meals + SSI * Metformin 1gm PO BID * A1c = 6.3% 07/27/18 The patient is currently receiving: * Basal Insulin: None * Correctional Insulin: Novolog Correction per scale ACHS Goal Range: Low 120 mg/dL - High 160 mg/dL Correction Factor: 30 mg/dL/unit * Prandial Insulin: Per carb ratio of 1 unit per 8 grams CHO consumed Risk Factors for Insulin Resistance: * Steroids: Dexamethasone may have been given in the OR 5/2 * Infection: discitis/osteo * Recent Surgery: POD # 1 - Assessment & Plan ASSESSMENT: * Type 2 diabetic identified with sustained hyperglycemia (BSGs > 180) in the ICU (1east) * Pt appears to have received dexamethasone IV in the OR * Patient had been tolerating Levemir 5 units BID this admission without hypoglycemia however is currently on hold * Novolog doses are appropriate starting points, although he could benefit from slightly higher doses in the short term given current stressors * Tight glycemic control in the post-op setting has been shown to prevent surgical site infxn RECOMMEND: * Basal insulin with LEVEMIR 5 units SQ BID * Correctional Insulin with NOVOLOG per scale ACHS or Q6hrs while NPO * Changing Goal Range to : Low 120 mg/dL - High 150 mg/dL * Changing correction factor 25 mg/dl/unit * Changing carb ratio 1 unit per 7 grams CHO consumed Pharmacy will continue to provide recommendations in EMR while patient admitted to 1E/2E. Physicians may request pharmacy to continue to follow patient when transferred out of the ICU and/or consult pharmacy to write glycemic control orders * Please note that the plan above was derived based on current level of insulin resistance and hospital stress. These recommendations are appropriate for inpatient admission only. Plan of care upon discharge will need to be reassessed to avoid potential outpatient hypo/hyperglycemia. Thank you.
[2018-10-10] MEDS: DAPTOmycin 400 MG in SYRINGE 0 ML IV SCH (15:35)
[2018-10-10] MEDS ORDERED: PHARMACY GLYCEMIC MGMT CONSULT PRN (16:17)
--- NOTE | 2018-10-10 16:19 | Orthopedic Progress Note ---
Date of Service October 10, 2018 Assessment & Plan (1) Weakness of lower extremity: Patient is status post posterior spinal fusion L1-L5. Like to begin transfers to the bedside chair when he is medically stable. Reviewed our plan with the patient and his today. Present on Admission?: Yes Subjective Patient states his back pain is controlled. He was struggling with some nausea and vomiting earlier today but feels reasonable at this time. He denies any leg pain. Physical Exam Physical Exam: On exam I was able to sit him up in bed. He did not complain of excessive pain with this motion. Reasonable plantar flexion dorsiflexion bilaterally. Results & Data Vital Signs (Past 12 Hours) Vital Signs Temp Pulse Resp BP Pulse Ox 10/10/18 16:01 37.1 C 110 H 22 100/62 99 10/10/18 15:01 111 H 10 L 105/60 100 10/10/18 14:01 112 H 8 L 101/56 L 95 10/10/18 13:01 36.8 C 110 H 12 97/50 L 100 10/10/18 12:01 36.7 C 110 H 12 98/56 L 99 10/10/18 11:43 107 H 9 L 87/52 L 96 10/10/18 11:07 113 H 14 103/58 L 99 10/10/18 10:01 111 H 22 99/56 L 99 10/10/18 09:35 36.7 C 112 H 16 110/56 L 99 10/10/18 09:13 36.9 C 111 H 16 104/55 L 98 10/10/18 09:12 114 H 10/10/18 09:01 109 H 15 104/55 L 99 10/10/18 08:13 36.8 C 114 H 25 H 104/52 L 99 10/10/18 08:01 114 H 24 104/52 L 99 10/10/18 07:13 37 C 110 H 102/57 L 100 10/10/18 07:01 109 H 18 102/55 L 97 10/10/18 06:43 37.1 C 110 H 14 100/54 L 100 10/10/18 06:28 37.3 C 109 H 22 98/54 L 98 10/10/18 06:11 37.4 C 110 H 24 100/53 L 100
[2018-10-10] MEDS ORDERED: INSULIN DETEMIR FLEXPEN/FLEX TOUCH 100 UNITS/ML 3ML SQ ONE (16:30)
[2018-10-10] MEDS: NOREPINEPHRINE BIT INJ 8 MG in DEXTROSE 5% 500 ML IV SCH (17:39)
--- NOTE | 2018-10-10 20:06 | XRay Report ---
XR KUB/Abdomen 1 view CLINICAL HISTORY: Nausea and vomiting. History of recent lumbar surgery. COMPARISON STUDY: 08/06/2018 FINDINGS: There are extensive postsurgical changes present within the spine. Skin florentin and surgica l drain are evident. There is no pathologic bowel dilatation. There is scattered stool throughout the colon. There are no calcifications suspicious for renal calculi. IMPRESSION: No evidence of pathologic bowel dilatation. Electronically signed by: Stevan Betancourt M.D. 10/10/2018 8:05 PM
[2018-10-10] MEDS: TAMSULOSIN HCL 0.4 MG CAP PO SCH (20:09)
[2018-10-10] MEDS: ATORVASTATIN 40 MG TAB PO SCH (20:09)
[2018-10-10] MEDS: INSULIN DETEMIR FLEXPEN/FLEX TOUCH 100 UNITS/ML 3ML SQ SCH (20:15)
[2018-10-10 20:27] LABS: Hematocrit (blood only) 19.9 % (42-52); Hemoglobin 6.9 g/dL (14.0-18.0); Mean Corpuscular Hgb Conc 34.7 g/dL (32-36); Mean Corpuscular Volume 82.6 fL (80-100); Mean Platelet Volume 9.7 fL (7.4-10.4); Platelet Count 55 K/uL (130-400); RDW Coefficient of Variation 15.8 % (11.5-14.5); RDW Standard Deviation 47.5 fL (36.4-46.3); Red Blood Count 2.41 M/uL (4.7-6.1)
[2018-10-10] MEDS: HYDROmorphone INJ 0.5 MG/0.5 ML SYR IV PRN (21:10)
[2018-10-11 02:18] LABS: Hematocrit (blood only) 23.9 % (42-52); Hemoglobin 8.1 g/dL (14.0-18.0)
[2018-10-11 02:41] LABS: Albumin Level 2.1 gm/dl (3.4-5.0); Bilirubin Direct 0.2 mg/dl (0-0.2); Bilirubin,Total 0.6 mg/dl (0.2-1)
[2018-10-11] MEDS: ONDANSETRON INJ 2 MG/ML 2 ML VIAL IV PRN ×3 (03:15→15:36)
[2018-10-11] MEDS: INSULIN ASPART 100 UNITS/ML 3 ML PEN SC SCH ×5 (04:32→20:42)
[2018-10-11 04:58] LABS: Hematocrit (blood only) 24.6 % (42-52); Hemoglobin 8.4 g/dL (14.0-18.0); Mean Corpuscular Hgb Conc 34.1 g/dL (32-36); Mean Corpuscular Volume 83.1 fL (80-100); RDW Coefficient of Variation 15.5 % (11.5-14.5); RDW Standard Deviation 47.5 fL (36.4-46.3); Red Blood Count 2.96 M/uL (4.7-6.1); White Blood Count 11.15 K/uL (4.8-10.8)
[2018-10-11 05:00] LABS: Mean Platelet Volume 9.6 fL (7.4-10.4); Platelet Count 59 K/uL (130-400)
[2018-10-11 05:05] LABS: INR 1.1 (0.9-1.1); Prothrombin Time 11.3 Seconds (9.0-12.0)
[2018-10-11] MEDS: POLYETHYLENE (MIRALAX) 17 GM PACK PO SCH ×3 (05:05→15:45)
[2018-10-11 05:13] LABS: BUN Creatinine Ratio 12.8 (10-20); Calcium 8.1 mg/dl (8.5-10.1); Creatinine Clr Calc Pharmacy 39.8 ml/min; Est GFR (African American) 36.7; Est GFR (Non-African American) 31.7; Magnesium 2.2 mg/dl (1.8-2.4); Phosphorus 3.1 mg/dl (2.5-4.9); Potassium 4.2 mmol/L (3.5-5.1)
[2018-10-11] MEDS: HYDROmorphone INJ 0.5 MG/0.5 ML SYR IV PRN (05:17)
[2018-10-11 05:39] LABS: Basophils # (auto) 0.02 K/uL (0-0.2); Basophils % (auto) 0.2 %; Eosinophils # (auto) 0.07 K/uL (0-0.5); Eosinophils % (auto) 0.6 %; Immature Granulocytes # (auto) 0.09 K/uL (0.00-0.02); Immature Granulocytes % (auto) 0.8 %; Lymphocytes # (auto) 0.81 K/uL (1.2-3.4); Lymphocytes % (auto) 7.3 %; Monocytes % (auto) 15.2 %; Neutrophils # (auto) 8.46 K/uL (1.4-6.5); Neutrophils % (auto) 75.9 %; RBC Morphology Unremarkable
[2018-10-11] MEDS: METOPROLOL SUCC 50MG EXT REL TAB PO SCH (07:44)
--- NOTE | 2018-10-11 08:24 | Cardiology Progress Note ---
Date of Service October 11, 2018 Assessment & Plan (1) Coronary artery disease: The patient has an extensive cardiac history. Cardiac catheterization performed in July noted a patent DELATORRE and FERNANDO along with significant [place] coronary disease. However, none nothing was interveneable at that time and medical care was recommended. The patient has done well since that time without episodes of angina pectoris, he has having what is described as "heartburn" which could be angina. He certainly has reason to have ischemia given his anemia, use of Levophed, hypotension and stress. (2) Ischemic cardiomyopathy: Left ventricular systolic function was moderately reduced with an ejection fraction of 30-35% on an echocardiogram performed in July 2018. At this point I would not repeat it unless we have difficulty with congestive heart failure. (3) Chronic systolic (congestive) heart failure: Clinically he has done well with his heart failure prior to surgery. Now he has evidence of ongoing fluid overload, however that appears to be iatrogenic from blood and volume to treat his hypotension and anemia. I do not think that reflects worsening of his cardiac function. We need to try to diuresis as soon as possible if his blood pressure will allow it. (4) ICD (implantable cardioverter-defibrillator) in place: The patient had a single-chamber ICD placed after an episode of sudden cardiac in October 2011. His device has been functioning properly and was checked most recently on May 12, 2018. It probably does not need to be interrogated this admission but I may do that before he goes home just to be sure that there are no issues. Subjective He seems to be feeling better today, he has no specific points. He has minimal back discomfort and no chest discomfort. Physical Exam Physical Exam: Constitutional: Alert, cooperative and in no distress. Pulmonary: Decreased breath sounds on the right, diminished air movement on the left. Cardiac: Regular rapid rhythm with no murmur, gallop or rub. Abdomen: Soft, nontender with normal bowel sounds. Extremities: Bilateral pedal and arm and hand edema consistent with anasarca. Skin: No rash, ecchymoses or petechiae. Results & Data Vital Signs (Past 12 Hours) Vital Signs Temp Pulse Resp BP Pulse Ox 10/11/18 07:30 106 H 21 100 10/11/18 07:01 103 H 24 95/59 L 99 10/11/18 02:46 106 H 0 L 111/62 100 10/11/18 02:41 109 H 17 105/62 100 10/11/18 02:36 108 H 10 L 108/62 100 10/11/18 02:31 104 H 11 L 99/60 L 100 10/11/18 02:26 107 H 23 102/59 L 98 10/11/18 02:21 104 H 7 L 95/60 L 100 10/11/18 02:16 108 H 16 99/62 L 99 10/11/18 02:11 107 H 10 L 101/62 100 10/11/18 02:06 108 H 14 103/62 100 10/11/18 02:01 106 H 23 96/61 L 98 10/11/18 02:00 105 H 11 L 98 10/11/18 01:56 108 H 18 99/61 L 98 10/11/18 01:51 106 H 11 L 100/58 L 99 10/11/18 01:46 106 H 22 94/61 L 98 10/11/18 01:41 107 H 22 98/60 L 97 10/11/18 01:36 106 H 10 L 97/60 L 99 10/11/18 01:31 109 H 15 98/61 L 99 10/11/18 01:26 108 H 23 98/60 L 99 10/11/18 01:21 110 H 14 103/64 99 10/11/18 01:16 109 H 12 102/55 L 100 10/11/18 01:11 104 H 8 L 96/60 L 98 10/11/18 01:06 108 H 14 100/62 100 10/11/18 01:01 106 H 9 L 101/63 100 10/11/18 01:00 105 H 12 100 10/11/18 00:56 107 H 12 102/62 100 10/11/18 00:51 36.5 C 108 H 16 115/63 94 10/11/18 00:46 105 H 8 L 93/61 L 94 10/11/18 00:45 107 H 18 97 10/11/18 00:41 106 H 0 L 99/61 L 100 10/11/18 00:36 108 H 15 98/61 L 100 10/11/18 00:31 105 H 8 L 99/58 L 100 10/11/18 00:30 104 H 5 L 100 10/11/18 00:26 106 H 23 96/62 L 99 10/11/18 00:21 108 H 7 L 102/60 100 10/11/18 00:16 104 H 25 H 95/61 L 99 10/11/18 00:15 106 H 21 93 10/11/18 00:11 107 H 0 L 100/59 L 100 10/11/18 00:06 104 H 24 95/52 L 98 10/11/18 00:01 107 H 18 97/58 L 96 10/11/18 00:00 109 H 16 100 10/10/18 23:56 107 H 6 L 96/59 L 100 10/10/18 23:51 107 H 7 L 98/60 L 100 10/10/18 23:46 106 H 24 91/62 L 98 10/10/18 23:45 104 H 21 100 10/10/18 23:41 109 H 15 99/59 L 100 10/10/18 23:36 105 H 7 L 93/57 L 100 10/10/18 23:31 106 H 24 91/58 L 97 10/10/18 23:30 106 H 23 98 10/10/18 23:26 108 H 6 L 97/61 L 100 10/10/18 23:21 109 H 0 L 99/59 L 100 10/10/18 23:16 105 H 8 L 93/56 L 100 10/10/18 23:15 105 H 7 L 99 10/10/18 23:11 108 H 19 92/55 L 98 10/10/18 23:07 109 H 13 95/58 L 100 10/10/18 23:06 109 H 10 L 95/58 L 100 10/10/18 23:01 108 H 7 L 98/59 L 100 10/10/18 23:00 107 H 3 L 100 10/10/18 22:49 36.6 C 109 H 12 90/55 L 96 10/10/18 22:45 113 H 12 97 10/10/18 22:30 104 H 26 H 83 L 10/10/18 22:15 107 H 6 L 98 10/10/18 22:01 109 H 0 L 90/55 L 100 10/10/18 22:00 109 H 12 98 10/10/18 21:45 111 H 15 88 L 10/10/18 21:30 103 H 16 94 10/10/18 21:15 107 H 6 L 91 10/10/18 21:01 107 H 9 L 104/59 L 100 10/10/18 21:00 110 H 9 L 100 10/10/18 20:45 106 H 7 L 100 10/10/18 20:30 106 H 10 L 96 Diagnostic Findings Telemetry: Sinus tachycardia, no other arrhythmia
--- NOTE | 2018-10-11 08:39 | Pharmacy Report ---
Pharmacy Glycemic Short Note 2 - Date of Service October 11, 2018 - Glycemic Short BSG Results (Last 24 hours): 10/10/18 10/10/18 10/10/18 10:53 11:52 17:38 Glucose 197 H POC Glucose 208 H 198 H 10/10/18 10/10/18 10/11/18 20:02 23:50 04:20 Glucose POC Glucose 190 H 204 H 158 H 10/11/18 04:25 Glucose 154 H POC Glucose OUTPATIENT ANTIDIABETIC REGIMEN: * Levemir 7 units BID * Novolog 10 units TID w/ meals + SSI * Metformin 1gm PO BID * A1c = 6.3% 07-27-18 ASSESSMENT: 10/11 * BSGs remained elevated the rest of the day yesterday, however are down to goal this AM * Fasting BSG 154-158 this AM w/ 10 units Levemir on board and after receiving 3 units of Novolog correction overnight. * Will continue with current orders at this time and follow BSG pattern * Pt remains very drowsy this AM, and nausea continues 3 * Type 2 diabetic identified with sustained hyperglycemia (BSGs > 180) in the ICU (1east) * Pt appears to have received dexamethasone IV in the OR * Patient had been tolerating Levemir 5 units BID this admission without hypoglycemia however is currently on hold * Novolog doses are appropriate starting points, although he could benefit from slightly higher doses in the short term given current stressors * Tight glycemic control in the post-op setting has been shown to prevent surgical site infxn PLAN FOR INPATIENT GLYCEMIC CONTROL: * Hold outpatient oral diabetes medications * Basal insulin * Levemir SQ BID per the following scale: * 0 units if less than 130 * 5 units if 130 or greater * Bolus insulin * NovoLog per scale Q 4 hrs initially until BSGs at goal consistently * Goal Range: Low 120 mg/dL - High 150 mg/dL * Correction Factor: 25 mg/dL/unit * Nutritional / Prandial insulin per carb ratio of 1 unit per 7 grams CHO consumed PLAN FOR DISCHARGE: * to be determined
[2018-10-11] MEDS: INSULIN DETEMIR FLEXPEN/FLEX TOUCH 100 UNITS/ML 3ML SQ SCH ×2 (08:41→20:43)
[2018-10-11] MEDS: FINASTERIDE 5 MG TAB PO SCH (08:42)
[2018-10-11] MEDS: ASPIRIN 81 MG ECTAB PO SCH (08:42)
[2018-10-11] MEDS: CYANOCOBALAMIN 500 MCG TABLET (VITAMIN B-12) PO SCH (08:42)
[2018-10-11] MEDS: CHOLECALCIFEROL 1,000 UNITS TAB PO SCH (08:42)
[2018-10-11] MEDS: MAGNESIUM OXIDE 400 MG TAB PO SCH (08:44)
[2018-10-11] MEDS: ACETAMINOPHEN 1,000 MG/100 ML VIAL IV PRN ×2 (08:45→16:00)
--- NOTE | 2018-10-11 09:18 | Critical Care Progress Note ---
Date of Service October 11, 2018 Assessment & Plan (1) Admitted to intensive care unit: Neuro- awake alert but confused agitated at times CV- Hypotension post op requiring norepinephrine - now off. CAD, ischemic cardiomyopathy Pulmonary- sat well on NC ID- paraspinal abscess on daptomycin Renal- acute renal failure cr about the same . UOP poor will hold further fluid as getting overloaded. if BP remains stable may need diuresis GI- diet as tolerated but has been nauseas Heme-anemia due to blood loss. transfuse for hgb >7 Endocrine- blood sugars controlled Dispo- ok to transfer out of ICU if remains stable Subjective complains of mild back and abd pain transfusion last night with appropriate response episodes of nausea off vasopressors Physical Exam Physical Exam: Constitutional: Comfortable NAD HEENT: normocephalic atraumatic. CV: RRR nl s1,s2 no murmurs rubs or gallops Lungs: clear to auscultation bilaterally. no accessory muscle use Abd: soft nontender nondistended. normal bowel sounds Ext: no edema. no cyanosis, no clubbing. R arm PICC Skin: warm dry. Neuro: alert but confused. moving all extremities. strength 4+/5 lower ext Psych: normal mood and affect Results & Data Vital Signs (Past 12 Hours) Vital Signs Temp Pulse Resp BP Pulse Ox 10/11/18 07:30 106 H 21 100 10/11/18 07:01 103 H 24 95/59 L 99 10/11/18 02:46 106 H 0 L 111/62 100 10/11/18 02:41 109 H 17 105/62 100 10/11/18 02:36 108 H 10 L 108/62 100 10/11/18 02:31 104 H 11 L 99/60 L 100 10/11/18 02:26 107 H 23 102/59 L 98 10/11/18 02:21 104 H 7 L 95/60 L 100 10/11/18 02:16 108 H 16 99/62 L 99 10/11/18 02:11 107 H 10 L 101/62 100 10/11/18 02:06 108 H 14 103/62 100 10/11/18 02:01 106 H 23 96/61 L 98 10/11/18 02:00 105 H 11 L 98 10/11/18 01:56 108 H 18 99/61 L 98 10/11/18 01:51 106 H 11 L 100/58 L 99 10/11/18 01:46 106 H 22 94/61 L 98 10/11/18 01:41 107 H 22 98/60 L 97 10/11/18 01:36 106 H 10 L 97/60 L 99 10/11/18 01:31 109 H 15 98/61 L 99 10/11/18 01:26 108 H 23 98/60 L 99 10/11/18 01:21 110 H 14 103/64 99 10/11/18 01:16 109 H 12 102/55 L 100 10/11/18 01:11 104 H 8 L 96/60 L 98 10/11/18 01:06 108 H 14 100/62 100 10/11/18 01:01 106 H 9 L 101/63 100 10/11/18 01:00 105 H 12 100 10/11/18 00:56 107 H 12 102/62 100 10/11/18 00:51 36.5 C 108 H 16 115/63 94 10/11/18 00:46 105 H 8 L 93/61 L 94 10/11/18 00:45 107 H 18 97 10/11/18 00:41 106 H 0 L 99/61 L 100 10/11/18 00:36 108 H 15 98/61 L 100 10/11/18 00:31 105 H 8 L 99/58 L 100 10/11/18 00:30 104 H 5 L 100 10/11/18 00:26 106 H 23 96/62 L 99 10/11/18 00:21 108 H 7 L 102/60 100 10/11/18 00:16 104 H 25 H 95/61 L 99 10/11/18 00:15 106 H 21 93 10/11/18 00:11 107 H 0 L 100/59 L 100 10/11/18 00:06 104 H 24 95/52 L 98 10/11/18 00:01 107 H 18 97/58 L 96 10/11/18 00:00 109 H 16 100 10/10/18 23:56 107 H 6 L 96/59 L 100 10/10/18 23:51 107 H 7 L 98/60 L 100 10/10/18 23:46 106 H 24 91/62 L 98 10/10/18 23:45 104 H 21 100 10/10/18 23:41 109 H 15 99/59 L 100 10/10/18 23:36 105 H 7 L 93/57 L 100 10/10/18 23:31 106 H 24 91/58 L 97 10/10/18 23:30 106 H 23 98 10/10/18 23:26 108 H 6 L 97/61 L 100 10/10/18 23:21 109 H 0 L 99/59 L 100 10/10/18 23:16 105 H 8 L 93/56 L 100 10/10/18 23:15 105 H 7 L 99 10/10/18 23:11 108 H 19 92/55 L 98 10/10/18 23:07 109 H 13 95/58 L 100 10/10/18 23:06 109 H 10 L 95/58 L 100 10/10/18 23:01 108 H 7 L 98/59 L 100 10/10/18 23:00 107 H 3 L 100 10/10/18 22:49 36.6 C 109 H 12 90/55 L 96 10/10/18 22:45 113 H 12 97 10/10/18 22:30 104 H 26 H 83 L 10/10/18 22:15 107 H 6 L 98 10/10/18 22:01 109 H 0 L 90/55 L 100 10/10/18 22:00 109 H 12 98 10/10/18 21:45 111 H 15 88 L 10/10/18 21:30 103 H 16 94 10/10/18 21:15 107 H 6 L 91
--- NOTE | 2018-10-11 11:07 | Orthopedic Progress Note ---
Date of Service October 11, 2018 Assessment & Plan (1) Leg weakness, bilateral: This time when he is medically stable would like to initiate transfers from bed to chair. Fortunately his cultures remain negative at this time. Present on Admission?: Yes Subjective Patient states his back pain is controlled he voices no other complaints this morning. Physical Exam Physical Exam: On exam he is able to move his feet has full sensation. He appears oriented and alert. Results & Data Vital Signs (Past 12 Hours) Vital Signs Temp Pulse Resp BP Pulse Ox 10/11/18 10:01 104 H 22 98/49 L 96 10/11/18 09:01 109 H 20 99/69 L 100 10/11/18 08:01 37.4 C 105 H 19 106/49 L 100 10/11/18 07:30 106 H 21 100 10/11/18 07:01 103 H 24 95/59 L 99 10/11/18 02:46 106 H 0 L 111/62 100 10/11/18 02:41 109 H 17 105/62 100 10/11/18 02:36 108 H 10 L 108/62 100 10/11/18 02:31 104 H 11 L 99/60 L 100 10/11/18 02:26 107 H 23 102/59 L 98 10/11/18 02:21 104 H 7 L 95/60 L 100 10/11/18 02:16 108 H 16 99/62 L 99 10/11/18 02:11 107 H 10 L 101/62 100 10/11/18 02:06 108 H 14 103/62 100 10/11/18 02:01 106 H 23 96/61 L 98 10/11/18 02:00 105 H 11 L 98 10/11/18 01:56 108 H 18 99/61 L 98 10/11/18 01:51 106 H 11 L 100/58 L 99 10/11/18 01:46 106 H 22 94/61 L 98 10/11/18 01:41 107 H 22 98/60 L 97 10/11/18 01:36 106 H 10 L 97/60 L 99 10/11/18 01:31 109 H 15 98/61 L 99 10/11/18 01:26 108 H 23 98/60 L 99 10/11/18 01:21 110 H 14 103/64 99 10/11/18 01:16 109 H 12 102/55 L 100 10/11/18 01:11 104 H 8 L 96/60 L 98 10/11/18 01:06 108 H 14 100/62 100 10/11/18 01:01 106 H 9 L 101/63 100 10/11/18 01:00 105 H 12 100 10/11/18 00:56 107 H 12 102/62 100 10/11/18 00:51 36.5 C 108 H 16 115/63 94 10/11/18 00:46 105 H 8 L 93/61 L 94 10/11/18 00:45 107 H 18 97 10/11/18 00:41 106 H 0 L 99/61 L 100 10/11/18 00:36 108 H 15 98/61 L 100 10/11/18 00:31 105 H 8 L 99/58 L 100 10/11/18 00:30 104 H 5 L 100 10/11/18 00:26 106 H 23 96/62 L 99 10/11/18 00:21 108 H 7 L 102/60 100 10/11/18 00:16 104 H 25 H 95/61 L 99 10/11/18 00:15 106 H 21 93 10/11/18 00:11 107 H 0 L 100/59 L 100 10/11/18 00:06 104 H 24 95/52 L 98 10/11/18 00:01 107 H 18 97/58 L 96 10/11/18 00:00 109 H 16 100 10/10/18 23:56 107 H 6 L 96/59 L 100 10/10/18 23:51 107 H 7 L 98/60 L 100 10/10/18 23:46 106 H 24 91/62 L 98 10/10/18 23:45 104 H 21 100 10/10/18 23:41 109 H 15 99/59 L 100 10/10/18 23:36 105 H 7 L 93/57 L 100 10/10/18 23:31 106 H 24 91/58 L 97 10/10/18 23:30 106 H 23 98 10/10/18 23:26 108 H 6 L 97/61 L 100 10/10/18 23:21 109 H 0 L 99/59 L 100 10/10/18 23:16 105 H 8 L 93/56 L 100 10/10/18 23:15 105 H 7 L 99 10/10/18 23:11 108 H 19 92/55 L 98 10/10/18 23:07 109 H 13 95/58 L 100 10/10/18 23:06 109 H 10 L 95/58 L 100
--- NOTE | 2018-10-11 12:20 | Hospitalist Progress Note ---
Date of Service October 11, 2018 Assessment & Plan (1) Paraspinal abscess: had surgery on 09/10/18, changed Zyvox to daptomycin due to thrombocytopenia Lumbar CT 09/30 showing L2-L3 and L3-L4 discitis osteolytis - post op 10/09 -off Levophed since 10/10 - wound care per surgery (2) Acute kidney injury: PAULA on CKD. The patient's creatinine had been improving but is back up to 2.03 today - nephrology consulted - has signed off at this point - may want to have them come back on board if kidney function continues to worsen - continue serial prps (3) Thrombocytopenia: Platelets have dropped to 59,000 from 250,000 on admission. Heparin antibodies were negative. Zyvox adverse effect includes thrombocytopenia. Discussed with ID changed to daptomycin As this will be a prolonged course, will need to monitor CPK at least weekly since patient is on statin, elevated at 700 on 10/11 so will hold statin. (4) Altered mental status: resolved metabolic encephalopathy due to PAULA on CKD, chronic pain, chronic infection, and on narcotics (5) Coagulase-negative staphylococcal infection: Wound culture 09/10 Daptomycin as above was on Vanco but stopped due to PAULA BC no growth f/u Dr. Ndiaye for further instructions (6) Post-operative pain: Continue narcotic therapy for chronic pain management. Appreciate orthopedic consultation and management of the infection. Fentanyl dosage increased 10/04 to 25 mcg patch every 3 days (7) Chronic systolic heart failure: Currently fluid overloaded. IVF dc'd Last echo 07/2018 - ejection fraction of 30-35% (8) Urinary retention: continue luna, changed 09/29 for funguria (9) Acute anemia: Given a total of 7u PRBCs this admission. Hgb with drop to 6.5 after surgery and remained stable (10) Ischemic cardiomyopathy: Continue current medical management - ASA restarted, will need to restart plavix once platelets begin to rebound (11) ICD (implantable cardioverter-defibrillator) in place: Stable (12) Diabetes mellitus, type 2: diabetic diet Novolog, lantus (13) Acute UTI (urinary tract infection): Fungal elements isolated. Intravenous caspofungin through October 05. Repeat UC - no fungal growth (14) DVT prophylaxis: heparin subq held for low platelets, SCDs Subjective Mr. Cooper has been off Levophed since yesterday afternoon. BPs running bit low but MAPs above 65. Urine output on the low side. Denies pain. Review of Systems Review of Systems: All systems reviewed & are unremarkable except as noted in HPI & below Physical Exam Physical Exam: General: no distress Eyes: normal inspection, PERLL Respiratory: chest non tender, clear to auscultation, normal breath sounds, no respiratory distress, no accessory muscle use Cardiac: regular rate and rhythm, no rub or gallop, no murmur, +3 pitting edema LE, no jvd GI/: active bowel sounds, no abd pain or tenderness, soft, non distended Extremities: normal range of motion, normal strength, non tender Neuro/Psych: alert and oriented x 3, normal mood and affect Skin: pale, dry Results & Data Vital Signs (Past 12 Hours) Vital Signs Temp Pulse Resp BP Pulse Ox 10/11/18 12:01 37.5 C 105 H 13 87/52 L 98 10/11/18 11:01 106 H 12 97/51 L 99 10/11/18 10:01 104 H 22 98/49 L 96 10/11/18 09:01 109 H 20 99/69 L 100 10/11/18 08:01 37.4 C 105 H 19 106/49 L 100 10/11/18 07:30 106 H 21 100 10/11/18 07:01 103 H 24 95/59 L 99 10/11/18 02:46 106 H 0 L 111/62 100 10/11/18 02:41 109 H 17 105/62 100 10/11/18 02:36 108 H 10 L 108/62 100 10/11/18 02:31 104 H 11 L 99/60 L 100 10/11/18 02:26 107 H 23 102/59 L 98 10/11/18 02:21 104 H 7 L 95/60 L 100 10/11/18 02:16 108 H 16 99/62 L 99 10/11/18 02:11 107 H 10 L 101/62 100 10/11/18 02:06 108 H 14 103/62 100 10/11/18 02:01 106 H 23 96/61 L 98 10/11/18 02:00 105 H 11 L 98 10/11/18 01:56 108 H 18 99/61 L 98 10/11/18 01:51 106 H 11 L 100/58 L 99 10/11/18 01:46 106 H 22 94/61 L 98 10/11/18 01:41 107 H 22 98/60 L 97 10/11/18 01:36 106 H 10 L 97/60 L 99 10/11/18 01:31 109 H 15 98/61 L 99 10/11/18 01:26 108 H 23 98/60 L 99 10/11/18 01:21 110 H 14 103/64 99 10/11/18 01:16 109 H 12 102/55 L 100 10/11/18 01:11 104 H 8 L 96/60 L 98 10/11/18 01:06 108 H 14 100/62 100 10/11/18 01:01 106 H 9 L 101/63 100 10/11/18 01:00 105 H 12 100 10/11/18 00:56 107 H 12 102/62 100 10/11/18 00:51 36.5 C 108 H 16 115/63 94 10/11/18 00:46 105 H 8 L 93/61 L 94 10/11/18 00:45 107 H 18 97 10/11/18 00:41 106 H 0 L 99/61 L 100 10/11/18 00:36 108 H 15 98/61 L 100 10/11/18 00:31 105 H 8 L 99/58 L 100 10/11/18 00:30 104 H 5 L 100 10/11/18 00:26 106 H 23 96/62 L 99 10/11/18 00:21 108 H 7 L 102/60 100
[2018-10-11] MEDS: DAPTOmycin 400 MG in SYRINGE 0 ML IV SCH (15:36)
[2018-10-11] MEDS ORDERED: RAPID SEQUENCE INDUCTION BAG ONE (19:05)
[2018-10-11 19:25] LABS: Hematocrit (blood only) 24.5 % (42-52); Hemoglobin 8.2 g/dL (14.0-18.0)
[2018-10-11 19:43] LABS: BUN Creatinine Ratio 13.4 (10-20); Creatinine Clr Calc Pharmacy 38.6 ml/min; Est GFR (African American) 35.1; Est GFR (Non-African American) 30.3; Magnesium 2.5 mg/dl (1.8-2.4); Potassium 4.4 mmol/L (3.5-5.1)
[2018-10-11 19:51] LABS: Phosphorus 2.9 mg/dl (2.5-4.9)
[2018-10-11 20:11] LABS: Hematocrit (blood only) 24.6 % (42-52); Hemoglobin 8.3 g/dL (14.0-18.0); Mean Corpuscular Hgb Conc 33.7 g/dL (32-36); Mean Corpuscular Volume 84.5 fL (80-100); Mean Platelet Volume 10.2 fL (7.4-10.4); Platelet Count 105 K/uL (130-400); RDW Coefficient of Variation 15.8 % (11.5-14.5); Red Blood Count 2.91 M/uL (4.7-6.1); White Blood Count 22.51 K/uL (4.8-10.8)
[2018-10-11 20:12] LABS: Basophils # (auto) 0.04 K/uL (0-0.2); Basophils % (auto) 0.2 %; Eosinophils # (auto) 0.06 K/uL (0-0.5); Eosinophils % (auto) 0.3 %; Immature Granulocytes # (auto) 0.15 K/uL (0.00-0.02); Immature Granulocytes % (auto) 0.7 %; Lymphocytes # (auto) 1.48 K/uL (1.2-3.4); Lymphocytes % (auto) 6.6 %; Monocytes # (auto) 2.86 K/uL (0.11-0.59); Monocytes % (auto) 12.7 %; Neutrophils # (auto) 17.92 K/uL (1.4-6.5); Neutrophils % (auto) 79.5 %
[2018-10-11] MEDS ORDERED: SODIUM CHLORIDE 0.9% 250 ML IV PRN ×2 (20:14→20:21)
--- NOTE | 2018-10-11 20:21 | XRay Report ---
XR chest 1V portable CLINICAL HISTORY: Hypoxia. COMPARISON STUDY: Chest CT August 05, 2018. Chest radiograph October 08, 2018. FINDINGS: Postoperative findings within the spine, right PICC, median sternotomy wires and left subcl jasmin pacer/AICD are noted. Cardiac megaly is noted. There is no pneumothorax. Interstitial thickenin g has developed. There are bibasilar opacities. There are suspected small bilateral pleural effusions . IMPRESSION: 1. Interval development of interstitial thickening suggestive of pulmonary edema. 2. Bibasilar opacities with small bilateral pleural effusions. Electronically signed by: Chito Durand M.D. 10/11/2018 8:20 PM
[2018-10-11] MEDS: TAMSULOSIN HCL 0.4 MG CAP PO SCH (20:46)
--- NOTE | 2018-10-11 21:52 | Critical Care Progress Note ---
Date of Service October 11, 2018 Subjective Change of shift, was noted by nursing staff upon arrival at the facility that the patient was extremely bradycardic. On arrival to room, attending was present at bedside as were other staff members. Patient had received a one-time dose of 0.5 mg atropine. Heart rate remained in the 40s to 50s. Dopamine was provided from crash cart and started via PICC line. Levophed was restarted as well. Patient continued to have baseline mentation, however his blood pressure did seem to drop into the 80s systolically. Repeat labs were ordered. There was difficulty in achieving ABG as the patient had little to no access in the peripheries of the extremities. Eventually, brachial stick was performed successfully. No significant findings on ABG was noted. Patient was placed on nonrebreather as he did have decreased oxygenation. Heart rate did seem to improve in the 60s by this point. Repeat labs demonstrated no drop in H&H from earlier today. Electrolytes remained stable. He does have worsening PAULA. Repeat EKG demonstrated similar rhythm pattern with right bundle branch block and noted heart block with ventricular escape beats. Troponin was found to be elevated at greater than 30. At this point, I did discuss the case with Dr. Baca of [facility] [place]. We were able to review outpatient cardiology visits. 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 His Mode was listed as "VVI" with a rate of 40. Dr. Baca suggests increasing the patient's backup pacer rate to help support hemodynamics at this juncture. Goal will be to increase patient's heart rate with hopeful response in blood pressure. If that is the case, vasopressors can hopefully be titrated down. In regards to patient's elevated troponin. He has lack of EKG changes suggestive of acute STEMI. Patient has a significant cardiac history and on previous caths there had been reports of patient being poor candidate for PTCI secondary to anatomy status post CABG. We are in agreement that we certainly can support the patient's hemodynamics as well as cardiac perfusion with an additional unit of PRBCs. Will monitor closely as patient is at risk for volume overload. We will diurese if necessary. In addition, we will refrain from heparinization at this point status post lumbar spine intervention. Cardiology feels patient is certainly at high risk for worsening bleeding at this time. We will continue with providing blood as well as continuing daily ASCVD medications. I did reach out to the [employer] bottling equipment sales representative, Dennis. He reports that he does have other pacers to interrogate, however he will get to this facility soon as possible to increase back-up rate and interrogate pacer if needed. We will continue with dopamine and norepinephrine at this time. Patient was placed on high flow to machine long goods helper in oxygenation. We will continue to monitor closely and intervene if necessary. I have personally spent 60 minutes of critical care time in the direct management of this patient. This is a life/limb threatening event. This includes time spent evaluating patient, direct bedside care, chart review, placing orders, interpretation of diagnostic studies, discussion with consultants, patient, and family members, as well as other required patient management activities. This time is exclusive of all separately billable procedures, and teaching time and separate from and in addition to any other critical care service time. Results & Data Vital Signs (Past 12 Hours) Vital Signs Temp Pulse Resp BP Pulse Ox 10/11/18 21:11 36.5 C 52 L 16 126/45 L 99 10/11/18 19:23 68 14 129/63 100 10/11/18 19:21 68 15 104/50 L 97 10/11/18 19:20 67 31 H 113/52 L 10/11/18 19:07 58 L 27 H 10/11/18 19:05 59 L 28 H 105/56 L 10/11/18 19:03 60 17 109/53 L 93 10/11/18 19:02 60 19 99/48 L 10/11/18 18:59 27 H 79/39 L 100 10/11/18 18:58 61 7 L 79/35 L 10/11/18 18:55 55 L 17 98/56 L 10/11/18 18:54 88 12 98/51 L 100 10/11/18 18:50 43 L 18 61/42 L 84 L 10/11/18 18:01 104 H 12 87/57 L 100 10/11/18 18:00 105 H 12 99 10/11/18 17:44 99 10/11/18 17:35 82 L 10/11/18 17:01 101 H 14 89/50 L 95 10/11/18 16:01 37.0 C 106 H 23 103/58 L 100 10/11/18 15:01 101 H 10 L 100/58 L 94 10/11/18 14:01 105 H 16 114/65 100 10/11/18 13:01 103 H 11 L 96/53 L 99 10/11/18 12:01 37.5 C 105 H 13 87/52 L 98 10/11/18 11:01 106 H 12 97/51 L 99 10/11/18 10:01 104 H 22 98/49 L 96
[2018-10-12] MEDS: POLYETHYLENE (MIRALAX) 17 GM PACK PO SCH ×5 (00:32→23:05)
[2018-10-12] MEDS: INSULIN ASPART 100 UNITS/ML 3 ML PEN SC SCH ×7 (00:53→23:12)
[2018-10-12] MEDS: NOREPINEPHRINE BIT INJ 8 MG in DEXTROSE 5% 500 ML IV SCH (00:54)
[2018-10-12] MEDS: HYDROmorphone INJ 0.5 MG/0.5 ML SYR IV PRN ×3 (02:01→23:05)
[2018-10-12 02:02] LABS: Basophils # (auto) 0.03 K/uL (0-0.2); Basophils % (auto) 0.1 %; Eosinophils # (auto) 0.02 K/uL (0-0.5); Eosinophils % (auto) 0.1 %; Hemoglobin 10.2 g/dL (14.0-18.0); Immature Granulocytes # (auto) 0.25 K/uL (0.00-0.02); Immature Granulocytes % (auto) 1.1 %; Lymphocytes # (auto) 0.83 K/uL (1.2-3.4); Lymphocytes % (auto) 3.7 %; Mean Corpuscular Volume 86.2 fL (80-100); Mean Platelet Volume 9.4 fL (7.4-10.4); Monocytes # (auto) 2.52 K/uL (0.11-0.59); Monocytes % (auto) 11.3 %; Neutrophils # (auto) 18.74 K/uL (1.4-6.5); Neutrophils % (auto) 83.7 %; Nucleated RBC # (auto) 0.06 K/uL (0-0); Nucleated RBC % (auto) 0.3 %; Platelet Count 114 K/uL (130-400); RDW Coefficient of Variation 15.7 % (11.5-14.5); RDW Standard Deviation 49.9 fL (36.4-46.3); Red Blood Count 3.48 M/uL (4.7-6.1); White Blood Count 22.39 K/uL (4.8-10.8)
[2018-10-12 02:25] LABS: BUN Creatinine Ratio 12.5 (10-20); Calcium 8.1 mg/dl (8.5-10.1); Est GFR (African American) 30.1; Magnesium 2.4 mg/dl (1.8-2.4); Potassium 4.8 mmol/L (3.5-5.1)
[2018-10-12 02:31] LABS: Troponin I 33.2 ng/ml (0-0.045)
[2018-10-12] MEDS ORDERED: SODIUM CHLORIDE 0.9% 1000ML 1,000 ML IV SCH (06:45)
--- NOTE | 2018-10-12 08:00 | XRay Report ---
SINGLE VIEW CHEST CLINICAL HISTORY: Hypoxia. Congestive failure. FINDINGS: An AP, portable, upright chest radiograph is compared to study dated 10/11/2018 and correlate d with chest CT dated 08/05/2018. The examination is degraded by portable technique and patient rotati on. A single lead cardiac AICD is unchanged in position and partially obscures the left upper chest. The patient is status post midline sternotomy. A right PICC line is unchanged in position. The heart is enlarged and there is atherosclerotic calcification of the thoracic aorta. There is pulmonary vas cular congestion and interstitial edema. There are small pleural effusions with bibasilar consolidati on, left greater than right. No pneumothorax is seen. The skeletal structures are osteopenic. Fusion hardware is noted in the lower cervical and upper thoracic spine. Fusion hardware is also partially i shakeel in the upper lumbar spine. Calcific tendinopathy is present in the shoulders. IMPRESSION: 1. Cardiomegaly and AICD. There is evidence of congestive failure and interstitial edema. 2. There are small pleural effusions with bibasilar consolidation, left greater than right. Correlate clinically for evidence of superimposed pneumonia. Electronically signed by: Vinicius Almaraz M.D. 10/12/2018 7:59 AM
--- NOTE | 2018-10-12 08:26 | Pharmacy Report ---
Pharmacy Glycemic Short Note 2 - Date of Service October 12, 2018 - Glycemic Short BSG Results (Last 24 hours): 10/11/18 10/11/18 10/11/18 11:16 15:41 18:56 Glucose POC Glucose 160 H 162 H 178 H 10/11/18 10/12/18 10/12/18 19:04 00:49 01:52 Glucose 244 H 204 H POC Glucose 244 H 10/12/18 04:01 Glucose POC Glucose 189 H OUTPATIENT ANTIDIABETIC REGIMEN: * Levemir 7 units BID * Novolog 10 units TID w/ meals + SSI * Metformin 1gm PO BID * A1c = 6.3% 07-27-18 ASSESSMENT: 10/12 * BSGs were well controlled throughout the day yesterday, however last evening BSGs did rise into the 200's * Last evening pt became bradycardic requiring atropine, dopamine and norepinephrine infusions for inotropic and pressor support * Troponin on the rise as well * Acute stressors did likely lead to climbing BSGs * Both dopamine and norepi weaned off this AM and VSS * Will increase Lantus dose on the BID scale only slightly at this time now that pressors off. Will provide more correctional insulin as well in the short term. His PAULA has worsening increasing the risk for insulin accumulation and hypoglycemia as well. 10/11 * BSGs remained elevated the rest of the day yesterday, however are down to goal this AM * Fasting BSG 154-158 this AM w/ 10 units Levemir on board and after receiving 3 units of Novolog correction overnight. * Will continue with current orders at this time and follow BSG pattern * Pt remains very drowsy this AM, and nausea continues 10/10 * Type 2 diabetic identified with sustained hyperglycemia (BSGs > 180) in the ICU (1east) * Pt appears to have received dexamethasone IV in the OR * Patient had been tolerating Levemir 5 units BID this admission without hypoglycemia however is currently on hold * Novolog doses are appropriate starting points, although he could benefit from slightly higher doses in the short term given current stressors * Tight glycemic control in the post-op setting has been shown to prevent surgical site infxn PLAN FOR INPATIENT GLYCEMIC CONTROL: * Hold outpatient oral diabetes medications (metformin) * Basal insulin (dose increase) * Levemir SQ BID per the following scale: * 0 units if less than 130 * 5 units if 130 - 170 * 7 units if BSG above 170 * Bolus insulin (dose increase) * NovoLog per scale Q 4 hrs initially until BSGs at goal consistently * Goal Range: Low 120 mg/dL - High 150 mg/dL * Correction Factor: 20 mg/dL/unit * Nutritional / Prandial insulin per carb ratio of 1 unit per 7 grams CHO consumed PLAN FOR DISCHARGE: * to be determined
--- NOTE | 2018-10-12 08:32 | Cardiology Progress Note ---
Date of Service October 12, 2018 Assessment & Plan (1) Coronary artery disease: The patient has an extensive cardiac history. Cardiac catheterization performed in July 2018 noted a patent DELATORRE and FERNANDO along with significant anvik coronary disease. However, none nothing was amenable to intervention at that time and medical care was recommended. The patient has done well since that time without episodes of angina pectoris, he was having what is described as "heartburn" which could be angina. During his hospitalization, including after his events last night, he has continued to deny chest discomfort or heartburn. He developed heart block (which could be due to ischemia although no t necessarily since he has underlying conduction disease) with bradycardia and is troponin mann to 30, with a subsequent measurement of 33. He certainly has reason to have ischemia given his anemia, use of Levophed, hypotension and stress. Although he could have had a cardiac event I think it is conceivable that this is demand ischemia even with that higher troponin. I do not think we can consider invasive evaluation under the circumstances, including his recent back surgery and blood loss. (2) Ischemic cardiomyopathy: Left ventricular systolic function was moderately reduced with an ejection fraction of 30-35% on an echocardiogram performed in July 2018. At this point I agree with repeating the echocardiogram to see whether there is been a change in left ventricular function. (3) Chronic systolic (congestive) heart failure: Clinically he has done well with his heart failure prior to surgery. Now he has evidence of ongoing fluid overload, however that appears to be iatrogenic from blood and volume to treat his hypotension and anemia. He does not seem to have gone into significant left heart failure. I do not think that reflects worsening of his cardiac function. We need to try to diuresis as soon as possible if his blood pressure will allow it. He was on fluids until this morning, they are now stopped and I am hopeful we can diurese. (4) ICD (implantable cardioverter-defibrillator) in place: The patient had a single-chamber ICD placed after an episode of sudden cardiac in October 2011. His device has been functioning properly and was checked on May 12, 2018, as well as during last night with reprogramming of the ventricular rate. I am going to leave him at 80 bpm for now, he still is evidence of heart block on telemetry. (5) Third degree AV block: He developed complete heart block a little before 1900 yesterday, the cause is not clear but he does have underlying conduction disease and he was tachycardic. It could also be due to ischemia. Today he remains tachycardic and is ventricular pacing at 80 bpm (his atrial rate is faster than that therefore he is probably still in AV block). His ICD had been programmed to a fixed rate of 40 bpm since it was a single-chamber device and that is the standard, if he requires long-term pacing we may have to consider upgrading his device, even adding an atrial lead and possibly a left ventricular lead. I certainly would not make that decision now, he may well regained conduction, possibly as his atrial rate slows with recovery from his surgery. Subjective Events of yesterday afternoon reviewed. A little bit before 7 PM he suddenly went into heart block resulting in ventricular pacing at 40 bpm. He was hypotensive, received fluids and dopamine. He also received blood to increase his hemoglobin to 10. Troponin was 30. His ICD was reprogrammed to pace at 80 bpm (it is a single-chamber device, therefore as his typical he was programmed to VVI 40). Since then his blood pressure has stabilized. Today he is only complaining of being thirsty. Chest discomfort, he is not short of breath. Minimal back pain. Physical Exam Physical Exam: Constitutional: Alert, cooperative and in no distress. Pulmonary: Clear to auscultation bilaterally. Cardiac: Regular rhythm with no murmur, gallop or rub. Abdomen: Soft, nontender with normal bowel sounds. Extremities: +3 bilateral pretibial edema, +2 edema of arms and hands. Skin: No rash, ecchymoses or petechiae. Results & Data Vital Signs (Past 12 Hours) Vital Signs Temp Pulse Resp BP Pulse Ox 10/12/18 04:02 37.2 C 80 19 111/70 100 10/12/18 04:00 80 13 100 10/12/18 03:31 80 31 H 110/57 L 100 10/12/18 03:01 80 34 H 104/55 L 95 10/12/18 03:00 80 22 97 10/12/18 02:31 80 22 119/60 96 10/12/18 02:01 80 15 115/69 96 10/12/18 02:00 80 21 96 10/12/18 01:31 80 30 H 144/64 H 98 10/12/18 01:01 80 21 126/74 96 10/12/18 01:00 36.8 C 84 34 H 96 10/12/18 00:43 80 21 137/69 92 10/12/18 00:36 80 32 H 152/88 H 87 L 10/12/18 00:35 37.0 C 80 22 152/81 H 88 L 10/12/18 00:31 80 16 135/85 96 10/12/18 00:30 80 12 95 10/12/18 00:26 80 18 126/71 95 10/12/18 00:21 80 21 106/68 93 10/12/18 00:15 82 18 92 10/12/18 00:14 82 17 76/54 L 93 10/12/18 00:11 87 24 85/44 L 90 10/12/18 00:06 80 35 H 98/42 L 92 10/12/18 00:01 80 24 109/49 L 96 10/12/18 00:00 80 34 H 98 10/11/18 23:56 80 33 H 109/64 99 10/11/18 23:51 80 19 97/63 L 100 10/11/18 23:46 80 15 146/73 H 100 10/11/18 23:45 80 14 100 10/11/18 23:41 80 21 134/63 100 10/11/18 23:36 80 29 H 132/61 99 10/11/18 23:31 80 29 H 123/61 98 10/11/18 23:30 80 27 H 140/67 98 10/11/18 23:26 80 16 152/84 H 96 10/11/18 23:21 80 28 H 168/72 H 95 10/11/18 23:17 81 24 94 10/11/18 23:15 82 21 146/101 H 96 10/11/18 23:14 99 H 28 H 154/71 H 96 10/11/18 23:12 80 23 154/72 H 95 10/11/18 23:11 80 15 157/74 H 93 10/11/18 23:06 56 L 28 H 154/51 H 94 10/11/18 23:01 56 L 22 134/74 93 10/11/18 23:00 55 L 23 96 10/11/18 22:56 65 27 H 129/61 93 10/11/18 22:51 61 22 134/49 L 94 0504/19 22:49 0 L 23 146/59 H 95 10/11/18 22:45 53 L 31 H 91 10/11/18 22:41 56 L 13 113/55 L 95 10/11/18 22:36 56 L 25 H 131/47 L 91 10/11/18 22:31 60 16 121/48 L 96 10/11/18 22:30 61 19 95 10/11/18 22:26 63 28 H 132/49 L 93 10/11/18 22:21 64 19 133/57 L 96 10/11/18 22:16 62 25 H 136/53 L 97 10/11/18 22:15 58 L 26 H 92 10/11/18 22:11 69 25 H 123/43 L 92 10/11/18 22:06 65 32 H 102/48 L 93 10/11/18 22:02 57 L 17 83/66 L 97 10/11/18 22:01 56 L 23 68/61 L 97 10/11/18 22:00 56 L 22 95 10/11/18 21:56 55 L 26 H 111/58 L 97 10/11/18 21:51 54 L 31 H 116/48 L 93 10/11/18 21:47 52 L 24 131/48 L 94 10/11/18 21:45 55 L 15 96 10/11/18 21:41 57 L 21 118/46 L 94 10/11/18 21:36 54 L 25 H 132/44 L 93 10/11/18 21:31 54 L 17 130/55 L 10/11/18 21:26 58 L 25 H 116/55 L 10/11/18 21:21 60 20 116/46 L 10/11/18 21:19 62 24 114/48 L 10/11/18 21:17 54 L 23 121/44 L 10/11/18 21:15 62 23 117/49 L 10/11/18 21:13 62 25 H 126/45 L 96 10/11/18 21:11 36.5 C 62 25 H 116/69 53 L 10/11/18 21:09 55 L 23 118/48 L 10/11/18 21:07 62 20 111/40 L 10/11/18 21:05 63 20 135/45 L 10/11/18 21:03 62 25 H 118/50 L 05/04/19 21:01 61 24 121/55 L 93 10/11/18 21:00 60 29 H 94 10/11/18 20:59 61 23 116/50 L 90 10/11/18 20:57 52 L 23 114/46 L 93 10/11/18 20:55 61 24 121/45 L 93 10/11/18 20:53 63 25 H 119/50 L 93 10/11/18 20:51 61 22 108/48 L 94 10/11/18 20:49 61 28 H 110/52 L 97 10/11/18 20:47 61 24 117/52 L 94 10/11/18 20:45 60 21 105/50 L 94 10/11/18 20:43 60 23 110/51 L 92 10/11/18 20:41 60 26 H 116/50 L 93 10/11/18 20:39 51 L 23 104/48 L 94 10/11/18 20:37 59 L 26 H 120/48 L 96 10/11/18 20:35 61 23 112/51 L 95 10/11/18 20:33 63 22 121/43 L 97 10/11/18 20:31 61 15 124/49 L 93 10/11/18 20:29 62 18 120/44 L 93 Diagnostic Findings Telemetry: As noted in HPI he developed complete heart block and was pacing at 40 bpm, ultimately his heart rate was increased somewhat with intravenous dopamine but reprogramming the defibrillator to 80 was performed and since then he has been pacing at 80 bpm.
[2018-10-12] MEDS: INSULIN DETEMIR FLEXPEN/FLEX TOUCH 100 UNITS/ML 3ML SQ SCH ×2 (08:39→20:25)
[2018-10-12] MEDS: ASPIRIN 81 MG ECTAB PO SCH (08:39)
[2018-10-12] MEDS: MAGNESIUM OXIDE 400 MG TAB PO SCH (08:40)
[2018-10-12] MEDS: FINASTERIDE 5 MG TAB PO SCH (08:40)
[2018-10-12] MEDS: METOPROLOL SUCC 50MG EXT REL TAB PO SCH (08:40)
[2018-10-12] MEDS: CYANOCOBALAMIN 500 MCG TABLET (VITAMIN B-12) PO SCH (08:41)
[2018-10-12] MEDS: CHOLECALCIFEROL 1,000 UNITS TAB PO SCH (08:41)
[2018-10-12] MEDS: ONDANSETRON INJ 2 MG/ML 2 ML VIAL IV PRN ×2 (08:44→17:52)
[2018-10-12] MEDS: ACETAMINOPHEN 1,000 MG/100 ML VIAL IV PRN (08:44)
[2018-10-12] MEDS ORDERED: cefTRIAXone SODIUM 1,000 MG in DEXTROSE 5% 50 ML IV SCH (09:00)
--- NOTE | 2018-10-12 09:06 | Orthopedic Progress Note ---
Date of Service October 12, 2018 Assessment & Plan (1) Neurogenic claudication due to lumbar spinal stenosis: Patient has stabilized. Ongoing care per the cogeneration technician. We will continue to follow. Subjective Patient was seen bedside in room 112. He is awake and answering questions appropriately. He had episodes last evening of hypotension and bradycardia. He seems to be stable at this point. He is not complaining of pain. He denies any numbness or tingling. Physical Exam Physical Exam: Patient is awake. He is able to move his legs against gravity. He can feel his feet to light touch. His calves are supple nontender his abdomen soft and nontender. Results & Data Vital Signs (Past 12 Hours) Vital Signs Temp Pulse Resp BP Pulse Ox 10/12/18 04:02 37.2 C 80 19 111/70 100 10/12/18 04:00 80 13 100 10/12/18 03:31 80 31 H 110/57 L 100 10/12/18 03:01 80 34 H 104/55 L 95 10/12/18 03:00 80 22 97 10/12/18 02:31 80 22 119/60 96 10/12/18 02:01 80 15 115/69 96 10/12/18 02:00 80 21 96 10/12/18 01:31 80 30 H 144/64 H 98 10/12/18 01:01 80 21 126/74 96 10/12/18 01:00 36.8 C 84 34 H 96 10/12/18 00:43 80 21 137/69 92 10/12/18 00:36 80 32 H 152/88 H 87 L 10/12/18 00:35 37.0 C 80 22 152/81 H 88 L 10/12/18 00:31 80 16 135/85 96 10/12/18 00:30 80 12 95 10/12/18 00:26 80 18 126/71 95 10/12/18 00:21 80 21 106/68 93 10/12/18 00:15 82 18 92 10/12/18 00:14 82 17 76/54 L 93 10/12/18 00:11 87 24 85/44 L 90 10/12/18 00:06 80 35 H 98/42 L 92 10/12/18 00:01 80 24 109/49 L 96 10/12/18 00:00 80 34 H 98 10/11/18 23:56 80 33 H 109/64 99 10/11/18 23:51 80 19 97/63 L 100 10/11/18 23:46 80 15 146/73 H 100 10/11/18 23:45 80 14 100 10/11/18 23:41 80 21 134/63 100 10/11/18 23:36 80 29 H 132/61 99 10/11/18 23:31 80 29 H 123/61 98 10/11/18 23:30 80 27 H 140/67 98 10/11/18 23:26 80 16 152/84 H 96 10/11/18 23:21 80 28 H 168/72 H 95 10/11/18 23:17 81 24 94 10/11/18 23:15 82 21 146/101 H 96 10/11/18 23:14 99 H 28 H 154/71 H 96 10/11/18 23:12 80 23 154/72 H 95 10/11/18 23:11 80 15 157/74 H 93 10/11/18 23:06 56 L 28 H 154/51 H 94 10/11/18 23:01 56 L 22 134/74 93 10/11/18 23:00 55 L 23 96 10/11/18 22:56 65 27 H 129/61 93 10/11/18 22:51 61 22 134/49 L 94 10/11/18 22:49 0 L 23 146/59 H 95 10/11/18 22:45 53 L 31 H 91 10/11/18 22:41 56 L 13 113/55 L 95 10/11/18 22:36 56 L 25 H 131/47 L 91 10/11/18 22:31 60 16 121/48 L 96 10/11/18 22:30 61 19 95 10/11/18 22:26 63 28 H 132/49 L 93 10/11/18 22:21 64 19 133/57 L 96 10/11/18 22:16 62 25 H 136/53 L 97 10/11/18 22:15 58 L 26 H 92 10/11/18 22:11 69 25 H 123/43 L 92 10/11/18 22:06 65 32 H 102/48 L 93 10/11/18 22:02 57 L 17 83/66 L 97 10/11/18 22:01 56 L 23 68/61 L 97 10/11/18 22:00 56 L 22 95 10/11/18 21:56 55 L 26 H 111/58 L 97 10/11/18 21:51 54 L 31 H 116/48 L 93 10/11/18 21:47 52 L 24 131/48 L 94 10/11/18 21:45 55 L 15 96 10/11/18 21:41 57 L 21 118/46 L 94 10/11/18 21:36 54 L 25 H 132/44 L 93 10/11/18 21:31 54 L 17 130/55 L 10/11/18 21:26 58 L 25 H 116/55 L 10/11/18 21:21 60 20 116/46 L 10/11/18 21:19 62 24 114/48 L 10/11/18 21:17 54 L 23 121/44 L 10/11/18 21:15 62 23 117/49 L 10/11/18 21:13 62 25 H 126/45 L 96 10/11/18 21:11 36.5 C 62 25 H 116/69 53 L 10/11/18 21:09 55 L 23 118/48 L 10/11/18 21:07 62 20 111/40 L 10/11/18 21:05 63 20 135/45 L
[2018-10-12] MEDS ORDERED: CASPOFUNGIN 70 MG in SODIUM CHLORIDE 0.9% 250 ML IV ONE (09:15)
[2018-10-12] MEDS: cefTRIAXone SODIUM 2,000 MG in DEXTROSE 5% 50 ML IV SCH (09:21)
--- NOTE | 2018-10-12 10:37 | Critical Care Progress Note ---
Date of Service October 12, 2018 Assessment & Plan (1) Admitted to intensive care unit: Neuro- awake alert but confused agitated at times CV- Hypotension and bradycardia with complete heart block last night now improved with his pacer rate turned up to 80. back off vasopressors again. CAD, ischemic cardiomyopathy. troponin increased Pulmonary- sat well on NC ID- paraspinal abscess on daptomycin. culture from surgery with enterobacter and rajendra. ceftriaxone and capsofungin Renal- acute renal failure cr worse . UOP poor will hold further fluid as getting overloaded. if BP remains stable may need diuresis GI- diet as tolerated but has had nausea Heme-anemia due to blood loss. transfuse for hgb >7. leukocytosis increasing Endocrine- blood sugars controlled Dispo- continue ICU care for hemodynamic support Subjective last evening with bradycardia and hypotension with complete heart block. since pacer rate increase to 80 has become more stable He has no complaints today Physical Exam Physical Exam: Constitutional: Comfortable NAD HEENT: normocephalic atraumatic. CV: RRR nl s1,s2 no murmurs rubs or gallops Lungs: clear to auscultation bilaterally. no accessory muscle use Abd: soft nontender nondistended. normal bowel sounds Ext: + edema. no cyanosis, no clubbing. R arm PICC Skin: warm dry. Neuro: alert but confused. moving all extremities. strength 4+/5 lower ext Psych: flat affect Results & Data Vital Signs (Past 12 Hours) Vital Signs Temp Pulse Resp BP Pulse Ox 10/12/18 10:00 80 23 94 10/12/18 09:15 80 25 H 88/61 L 92 10/12/18 09:00 80 14 94 10/12/18 08:31 80 27 H 119/65 92 10/12/18 08:01 36.6 C 80 14 100/69 100 10/12/18 08:00 80 15 100 10/12/18 07:31 80 15 112/67 98 10/12/18 07:01 80 27 H 130/64 100 10/12/18 07:00 80 28 H 99 10/12/18 04:02 37.2 C 80 19 111/70 100 10/12/18 04:00 80 13 100 10/12/18 03:31 80 31 H 110/57 L 100 10/12/18 03:01 80 34 H 104/55 L 95 10/12/18 03:00 80 22 97 10/12/18 02:31 80 22 119/60 96 10/12/18 02:01 80 15 115/69 96 10/12/18 02:00 80 21 96 10/12/18 01:31 80 30 H 144/64 H 98 10/12/18 01:01 80 21 126/74 96 10/12/18 01:00 36.8 C 84 34 H 96 10/12/18 00:43 80 21 137/69 92 10/12/18 00:36 80 32 H 152/88 H 87 L 10/12/18 00:35 37.0 C 80 22 152/81 H 88 L 10/12/18 00:31 80 16 135/85 96 10/12/18 00:30 80 12 95 10/12/18 00:26 80 18 126/71 95 10/12/18 00:21 80 21 106/68 93 10/12/18 00:15 82 18 92 10/12/18 00:14 82 17 76/54 L 93 10/12/18 00:11 87 24 85/44 L 90 10/12/18 00:06 80 35 H 98/42 L 92 10/12/18 00:01 80 24 109/49 L 96 10/12/18 00:00 80 34 H 98 10/11/18 23:56 80 33 H 109/64 99 10/11/18 23:51 80 19 97/63 L 100 10/11/18 23:46 80 15 146/73 H 100 10/11/18 23:45 80 14 100 10/11/18 23:41 80 21 134/63 100 10/11/18 23:36 80 29 H 132/61 99 10/11/18 23:31 80 29 H 123/61 98 10/11/18 23:30 80 27 H 140/67 98 10/11/18 23:26 80 16 152/84 H 96 10/11/18 23:21 80 28 H 168/72 H 95 10/11/18 23:17 81 24 94 10/11/18 23:15 82 21 146/101 H 96 10/11/18 23:14 99 H 28 H 154/71 H 96 10/11/18 23:12 80 23 154/72 H 95 10/11/18 23:11 80 15 157/74 H 93 10/11/18 23:06 56 L 28 H 154/51 H 94 10/11/18 23:01 56 L 22 134/74 93 10/11/18 23:00 55 L 23 96 10/11/18 22:56 65 27 H 129/61 93 10/11/18 22:51 61 22 134/49 L 94 10/11/18 22:49 0 L 23 146/59 H 95 10/11/18 22:45 53 L 31 H 91 10/11/18 22:41 56 L 13 113/55 L 95 10/11/18 22:36 56 L 25 H 131/47 L 91 10/11/18 22:31 60 16 121/48 L 96 10/11/18 22:30 61 19 95 Laboratory Results Laboratory Results - last 24 hr 10/10/18 10/11/18 10/11/18 10:53 11:16 15:41 WBC RBC Hgb Hct MCV MCH MCHC RDW Std Deviation RDW Coeff of Norbert Plt Count MPV Immature Gran % (Auto) Neut % (Auto) Lymph % (Auto) [place] % (Auto) Eos % (Auto) Baso % (Auto) Immature Gran # (Auto) Neut # (Auto) Lymph # (Auto) [place] # (Auto) Eos # (Auto) Baso # (Auto) Absolute Nucleated RBC Nucleated RBC % (auto) Sodium Potassium Chloride Carbon Dioxide Anion Gap BUN Creatinine Est Cr Clr Drug Dosing Est GFR ( Amer) Est GFR (Non-Af Amer) BUN/Creatinine Ratio Glucose POC Glucose 160 H 162 H Lactate Calcium Phosphorus Magnesium Total Creatine Kinase Troponin I Procalcitonin Blood Type A Positive Antibody Screen POSITIVE A Antibody Identification Anti-E Crossmatch See Detail 10/11/18 10/11/18 10/11/18 18:56 19:04 19:04 WBC 22.51 H D RBC 2.91 L Hgb 8.3 L Hct 24.6 L MCV 84.5 MCH 28.5 MCHC 33.7 RDW Std Deviation 49.0 H RDW Coeff of Norbert 15.8 H Plt Count 105 L D MPV 10.2 Immature Gran % (Auto) 0.7 Neut % (Auto) 79.5 Lymph % (Auto) 6.6 [place] % (Auto) 12.7 Eos % (Auto) 0.3 Baso % (Auto) 0.2 Immature Gran # (Auto) 0.15 H Neut # (Auto) 17.92 H Lymph # (Auto) 1.48 [place] # (Auto) 2.86 H Eos # (Auto) 0.06 Baso # (Auto) 0.04 Absolute Nucleated RBC Nucleated RBC % (auto) Sodium 137 Potassium 4.4 Chloride 108 H Carbon Dioxide 23 Anion Gap 6.0 BUN 29 H Creatinine 2.20 H Est Cr Clr Drug Dosing 38.6 Est GFR ( Amer) 35.1 Est GFR (Non-Af Amer) 30.3 BUN/Creatinine Ratio 13.4 Glucose 244 H POC Glucose 178 H Lactate Calcium 8.0 L Phosphorus 2.9 Magnesium 2.5 H Total Creatine Kinase Troponin I 30.000 H* Procalcitonin Blood Type Antibody Screen Antibody Identification Crossmatch 10/11/18 10/12/18 10/12/18 19:04 00:49 01:52 WBC 22.39 H RBC 3.48 L Hgb 8.2 L 10.2 L Hct 24.5 L 30.0 L MCV 86.2 MCH 29.3 MCHC 34.0 RDW Std Deviation 49.9 H RDW Coeff of Norbert 15.7 H Plt Count 114 L MPV 9.4 Immature Gran % (Auto) 1.1 Neut % (Auto) 83.7 Lymph % (Auto) 3.7 [place] % (Auto) 11.3 Eos % (Auto) 0.1 Baso % (Auto) 0.1 Immature Gran # (Auto) 0.25 H Neut # (Auto) 18.74 H Lymph # (Auto) 0.83 L [place] # (Auto) 2.52 H Eos # (Auto) 0.02 Baso # (Auto) 0.03 Absolute Nucleated RBC 0.06 H Nucleated RBC % (auto) 0.3 Sodium Potassium Chloride Carbon Dioxide Anion Gap BUN Creatinine Est Cr Clr Drug Dosing Est GFR ( Amer) Est GFR (Non-Af Amer) BUN/Creatinine Ratio Glucose POC Glucose 244 H Lactate Calcium Phosphorus Magnesium Total Creatine Kinase Troponin I Procalcitonin Blood Type Antibody Screen Antibody Identification Crossmatch 10/12/18 10/12/18 10/12/18 01:52 04:01 04:59 WBC RBC Hgb Hct MCV MCH MCHC RDW Std Deviation RDW Coeff of Norbert Plt Count MPV Immature Gran % (Auto) Neut % (Auto) Lymph % (Auto) [place] % (Auto) Eos % (Auto) Baso % (Auto) Immature Gran # (Auto) Neut # (Auto) Lymph # (Auto) [place] # (Auto) Eos # (Auto) Baso # (Auto) Absolute Nucleated RBC Nucleated RBC % (auto) Sodium 136 Potassium 4.8 Chloride 108 H Carbon Dioxide 23 Anion Gap 5.0 BUN 31 H Creatinine 2.50 H D Est Cr Clr Drug Dosing 34.0 Est GFR ( Amer) 30.1 Est GFR (Non-Af Amer) 26.0 BUN/Creatinine Ratio 12.5 Glucose 204 H POC Glucose 189 H Lactate Calcium 8.1 L Phosphorus 3.0 Magnesium 2.4 Total Creatine Kinase 494 H Troponin I 33.200 H* Procalcitonin 2.68 H Blood Type Antibody Screen Antibody Identification Crossmatch 10/12/18 10/12/18 04:59 08:38 WBC RBC Hgb Hct MCV MCH MCHC RDW Std Deviation RDW Coeff of Norbert Plt Count MPV Immature Gran % (Auto) Neut % (Auto) Lymph % (Auto) [place] % (Auto) Eos % (Auto) Baso % (Auto) Immature Gran # (Auto) Neut # (Auto) Lymph # (Auto) [place] # (Auto) Eos # (Auto) Baso # (Auto) Absolute Nucleated RBC Nucleated RBC % (auto) Sodium Potassium Chloride Carbon Dioxide Anion Gap BUN Creatinine Est Cr Clr Drug Dosing Est GFR ( Amer) Est GFR (Non-Af Amer) BUN/Creatinine Ratio Glucose POC Glucose 188 H Lactate 1.6 Calcium Phosphorus Magnesium Total Creatine Kinase Troponin I Procalcitonin Blood Type Antibody Screen Antibody Identification Crossmatch
[2018-10-12 12:51] LABS: Gastric Occult Blood Positive (Negative); pH Gastric Fluid 2
--- NOTE | 2018-10-12 13:01 | Nephrology Progress Note ---
Date of Service October 12, 2018 Assessment & Plan (1) Acute kidney injury: 68-year-old gentlemen admitted to the hospital for back surgery for spinal stenosis. Initially he had surgery and was on vancomycin. He developed acute kidney injury and was seen by Dr. Christine Chen initially and thought to be acute kidney injury was thought to be of secondary to nephropathy from vancomycin as vancomycin trough was 48-50. Vancomycin was discontinued and renal function eventually slowly improved. Creatinine was initially 2 peaked to creatinine peaked to 2.9 and improved to around 1.7. He had another spinal L1-L5 fusion on 10/09/2018. During surgery and postop he has been hypotensive and blood p ressure remained low over last few days. Renal function again has been slowly worsening over last 3 days and creatinine now to 2.5. Electrolyte has been acceptable. Has been getting IV fluid. Has been non-oliguric. 09/27/[address]: Horseshoe kidney. No hydronephrosis. Recurrent acute kidney injury most likely hemodynamically mediated with persistent hypotension over last few days. -- would suggest discontinuing IV fluid as patient seems to be getting volume overloaded --monitor intake and output -- monitor renal function daily, it may take days for renal function to stabilize and then start improve again Will follow (2) Chronic indwelling Rojas catheter: (3) Delirium: Subjective Mr. Cooper was seen examined in his room this morning. He denies shortness of breath or chest pain. Blood pressure has been low, asymptomatic. Renal function has been slowly worsening over last few days creatinine up to 2.5, electrolyte acceptable. Remain non-oliguric. Physical Exam Physical Exam: GENERAL: Middle-aged male, AAA x 3, not in any distress. NECK: Supple, no JVD. RESPIRATORY: clear to auscultation bilaterally, no wheezes or rales. CARDIOVASCULAR: S1, S2 normal, rate rhythm regular. EXTREMITY: Trace bilateral lower extremity edema, hands are puffy with some upper extremity edema as well NEURO: speech fluent. PSYCHIATRY: Normal mood and judgment Results & Data Vital Signs (Past 12 Hours) Vital Signs Temp Pulse Resp BP Pulse Ox 10/12/18 11:01 79 25 H 83/51 L 96 10/12/18 11:00 36.8 C 80 27 H 95 10/12/18 10:01 80 27 H 107/54 L 95 10/12/18 10:00 80 23 94 10/12/18 09:15 80 25 H 88/61 L 92 10/12/18 09:00 80 14 94 10/12/18 08:31 80 27 H 119/65 92 10/12/18 08:01 36.6 C 80 14 100/69 100 10/12/18 08:00 80 15 100 10/12/18 07:31 80 15 112/67 98 10/12/18 07:01 80 27 H 130/64 100 10/12/18 07:00 80 28 H 99 10/12/18 04:02 37.2 C 80 19 111/70 100 10/12/18 04:00 80 13 100 10/12/18 03:31 80 31 H 110/57 L 100 10/12/18 03:01 80 34 H 104/55 L 95 10/12/18 03:00 80 22 97 10/12/18 02:31 80 22 119/60 96 10/12/18 02:01 80 15 115/69 96 10/12/18 02:00 80 21 96 10/12/18 01:31 80 30 H 144/64 H 98 10/12/18 01:01 80 21 126/74 96 10/12/18 01:00 36.8 C 84 34 H 96
--- NOTE | 2018-10-12 13:04 | Hospitalist Progress Note ---
Date of Service October 12, 2018 Assessment & Plan (1) Third degree AV block: 10/11 - Mr. Cooper became bradycardic in a complete block and required pressor. His ICD was subsequently turned up to 80 from 40. His troponin reached 33. Per cardiology may be ischemia from the bradycardia or may be cardiac event, however given his current condition will not take him for cath. (2) Paraspinal abscess: had surgery on 09/10/18, changed Zyvox to daptomycin due to thrombocytopenia Lumbar CT 09/30 showing L2-L3 and L3-L4 discitis osteolytis - post op 10/09 -continues to require ICU for pressor support - wound care per surgery - Epidural culture from surgery growing enterobacter and rajendra - will start ceftriaxone and caspofungin - ID aware (3) Acute kidney injury: PAULA on CKD. The patient's creatinine had been improving but began increasing after this most recent surgery and is now back up to 2.5 - nephrology consulted - may be ATN due to hypotension which will take some time to recover - continue serial prps (4) Thrombocytopenia: Platelets had dropped to 55,000 from 250,000 on admission but appear to be rebounding. Heparin antibodies were negative. Zyvox adverse effect includes thrombocytopenia. Discussed with ID changed to daptomycin CPK elevated at 700 on 10/11 so will hold statin. (5) Altered mental status: resolved metabolic encephalopathy due to PAULA on CKD, chronic pain, chronic infection, and on narcotics (6) Coagulase-negative staphylococcal infection: Wound culture 09/10 Daptomycin as above was on Vanco but stopped due to PAULA [facility] f/u Dr. Ndiaye for further instructions (7) Post-operative pain: Continue narcotic therapy for chronic pain management. Appreciate orthopedic consultation and management of the infection. Fentanyl dosage increased 10/04 to 25 mcg patch every 3 days (8) Chronic systolic heart failure: Currently fluid overloaded. IVF dc'd Last echo 07/2018 - ejection fraction of 30-35% Echo repeated given elevated troponin and pending Per cardiology - patient should be diuresed as soon as possible though he does not appear to be in left heart failure (9) Urinary retention: continue luna, changed 09/29 for funguria (10) Acute anemia: Given a total of 8u PRBCs this admission. (11) Ischemic cardiomyopathy: Continue current medical management - ASA restarted, will need to restart plavix once platelets begin to rebound and bleeding risk has improved (12) ICD (implantable cardioverter-defibrillator) in place: Stable (13) Diabetes mellitus, type 2: diabetic diet remedios [place] (14) Acute UTI (urinary tract infection): Fungal elements isolated. Intravenous caspofungin through October 05. Repeat UC - no fungal growth (15) DVT prophylaxis: heparin subq held for low platelets, SCDs - platelets are improving, if patient can keep his hgb stable should restart heparin subq but will hold given bleeding risk and requirement of multiple units PRBCs Subjective Mr. Cooper denies pain or discomfort. He is back on pressors following bradycardia while in complete heart block last night. Review of Systems Review of Systems: All systems reviewed & are unremarkable except as noted in HPI & below Physical Exam Physical Exam: General: no distress Eyes: normal inspection, PERLL Respiratory: chest non tender, clear to auscultation, normal breath sounds, no respiratory distress, no accessory muscle use Cardiac: regular rate and rhythm, no rub or gallop, no murmur, no edema, no jvd GI/: active bowel sounds, no abd pain or tenderness, soft, non distended Extremities: normal range of motion, normal strength, non tender Neuro/Psych: alert and oriented x 3, normal mood and affect Skin: pale, dry Results & Data Vital Signs (Past 12 Hours) Vital Signs Temp Pulse Resp BP Pulse Ox 10/12/18 11:01 79 25 H 83/51 L 96 10/12/18 11:00 36.8 C 80 27 H 95 10/12/18 10:01 80 27 H 107/54 L 95 10/12/18 10:00 80 23 94 10/12/18 09:15 80 25 H 88/61 L 92 10/12/18 09:00 80 14 94 10/12/18 08:31 80 27 H 119/65 92 10/12/18 08:01 36.6 C 80 14 100/69 100 10/12/18 08:00 80 15 100 10/12/18 07:31 80 15 112/67 98 10/12/18 07:01 80 27 H 130/64 100 10/12/18 07:00 80 28 H 99 10/12/18 04:02 37.2 C 80 19 111/70 100 10/12/18 04:00 80 13 100 10/12/18 03:31 80 31 H 110/57 L 100 10/12/18 03:01 80 34 H 104/55 L 95 10/12/18 03:00 80 22 97 10/12/18 02:31 80 22 119/60 96 10/12/18 02:01 80 15 115/69 96 10/12/18 02:00 80 21 96 10/12/18 01:31 80 30 H 144/64 H 98
[2018-10-12] MEDS: DAPTOmycin 400 MG in SYRINGE 0 ML IV SCH (15:54)
[2018-10-12] MEDS ORDERED: FUROSEMIDE 60 MG in SYRINGE 0 ML IV ONE (16:00)
[2018-10-12] MEDS: TAMSULOSIN HCL 0.4 MG CAP PO SCH (20:24)
[2018-10-13] MEDS: ONDANSETRON INJ 2 MG/ML 2 ML VIAL IV PRN (01:13)
[2018-10-13] MEDS: INSULIN ASPART 100 UNITS/ML 3 ML PEN SC SCH ×5 (03:17→20:39)
[2018-10-13 05:10] LABS: Basophils # (auto) 0.02 K/uL (0-0.2); Basophils % (auto) 0.2 %; Eosinophils # (auto) 0.04 K/uL (0-0.5); Eosinophils % (auto) 0.3 %; Hematocrit (blood only) 25.4 % (42-52); Hemoglobin 8.5 g/dL (14.0-18.0); Immature Granulocytes % (auto) 0.8 %; Lymphocytes # (auto) 0.96 K/uL (1.2-3.4); Mean Corpuscular Hgb Conc 33.5 g/dL (32-36); Mean Corpuscular Volume 87.3 fL (80-100); Mean Platelet Volume 10.1 fL (7.4-10.4); Monocytes # (auto) 1.12 K/uL (0.11-0.59); Monocytes % (auto) 9.4 %; Neutrophils % (auto) 81.3 %; Nucleated RBC # (auto) 0.06 K/uL (0-0); Nucleated RBC % (auto) 0.5 %; Platelet Count 124 K/uL (130-400); RDW Coefficient of Variation 15.8 % (11.5-14.5); RDW Standard Deviation 50.6 fL (36.4-46.3); Red Blood Count 2.91 M/uL (4.7-6.1); White Blood Count 11.94 K/uL (4.8-10.8)
[2018-10-13 05:26] LABS: BUN Creatinine Ratio 12.7 (10-20); Creatinine Clr Calc Pharmacy 28.3 ml/min; Est GFR (African American) 23.9; Est GFR (Non-African American) 20.6; Magnesium 2.4 mg/dl (1.8-2.4); Potassium 4.5 mmol/L (3.5-5.1)
[2018-10-13 05:29] LABS: Phosphorus 3.2 mg/dl (2.5-4.9)
[2018-10-13] MEDS: POLYETHYLENE (MIRALAX) 17 GM PACK PO SCH ×3 (05:33→17:57)
[2018-10-13 06:37] LABS: Estimated Average Glucose 114 mg/dl; Hemoglobin A1C 5.6 % (4.5-5.6)
--- NOTE | 2018-10-13 07:00 | XRay Report ---
XR chest 1V portable CLINICAL HISTORY: f/u dyspnea COMPARISON STUDY: 10/12/2018 FINDINGS: Moderate stable cardiomegaly. Prior median sternotomy. Permanent bipolar cardiac pacemaker/ defibrillator with leads in good position. Findings of congestive failure and/or pulmonary edema slightly increased. IMPRESSION: 1. Slightly progressive pulmonary edema. 2. All tubes and lines remain unchanged in position. The above report was generated using voice recognition software. It may contain grammatical, syntax or spelling errors. Electronically signed by: Samuel Lindo M.D. 10/13/2018 6:59 AM
[2018-10-13] MEDS: CHECK FENTANYL PATCH PLACEMENT SCH ×2 (08:00→17:08)
[2018-10-13] MEDS: CYANOCOBALAMIN 500 MCG TABLET (VITAMIN B-12) PO SCH (08:00)
[2018-10-13] MEDS: MAGNESIUM OXIDE 400 MG TAB PO SCH (08:00)
[2018-10-13] MEDS: FINASTERIDE 5 MG TAB PO SCH (08:00)
[2018-10-13] MEDS: CHOLECALCIFEROL 1,000 UNITS TAB PO SCH (08:01)
[2018-10-13] MEDS: ACETAMINOPHEN 1,000 MG/100 ML VIAL IV PRN (08:06)
[2018-10-13] MEDS: METOCLOPRAMIDE HCL INJ 5 MG/ML 2 ML VIAL IV PRN (08:13)
[2018-10-13] MEDS: cefTRIAXone SODIUM 2,000 MG in DEXTROSE 5% 50 ML IV SCH (08:14)
[2018-10-13] MEDS: INSULIN DETEMIR FLEXPEN/FLEX TOUCH 100 UNITS/ML 3ML SQ SCH ×2 (08:14→20:40)
[2018-10-13] MEDS ORDERED: PERFLUTREN LIPID MICROSPHERE (DEFINITY) IV ONE (08:17)
[2018-10-13] MEDS: CASPOFUNGIN 50 MG in SODIUM CHLORIDE 0.9% 250 ML IV SCH (09:30)
--- NOTE | 2018-10-13 10:34 | Infectious Disease Progress Nt ---
Date of Service October 13, 2018 Assessment & Plan (1) Paraspinal abscess: continue current abx and caspo, will likely need 6 weeks IV abx post OR. will need weekly cbc,cmp, esr while on abx. can follow with ID post d/c. Subjective pt remains in ICU, recovering from repeat back surgery, fusion, hardware placement and abx beads. states less pain every day. denies f/c. no n/v/d/abd pain, no cp, sob, cough. OR cultures from 10/09 growing Enterobacter and C. albicans, had grown Enterobacter initially and was treated with course of IV abx, I to Imipenem but otherwise sensitive. Placed on roecphin and caspo over weekend, remains on dapto - prevous culture grew [employer]. Recently completed course of caspo for fungal uti. creat remains elevated. wbc improved to 11 post op. CXR this am, pulm edema only, no infiltrate. plateltes improved since stopping zyvox. all remaining ros reviewed and are negative. Review of Systems Review of Systems: All systems reviewed & are unremarkable except as noted in HPI & below Physical Exam Constitutional: WD/WN, vitals as above Eyes: PERRL, conjunctivae normal, anicteric sclerae ENMT: external ear and nose normal, oropharynx normal Neck: normal visual inspection Respiratory: normal respiratory effort, lungs clear to auscultation Cardiovascular: RRR, no murmur, no edema Gastrointestinal (Abdomen): normal bowel sounds, soft, nontender, no hepatosplenomegaly Musculoskeletal: no cyanosis or clubbing, extremities motor strength 5/5 Skin: no rashes, warm and dry rue picc d/c/i Psychiatric: A+Ox3, euthymic affect Results & Data Vital Signs (Past 12 Hours) Vital Signs Temp Pulse Resp BP Pulse Ox 10/13/18 10:01 90 17 107/73 99 10/13/18 09:01 92 H 20 138/83 100 10/13/18 08:01 36.5 C 91 H 16 136/86 100 10/13/18 07:01 91 H 19 137/73 99 10/13/18 06:01 36.6 C 92 H 21 150/83 H 100 10/13/18 06:00 92 H 20 98 10/13/18 05:01 92 H 23 122/87 100 10/13/18 05:00 92 H 20 100 10/13/18 04:02 95 H 17 134/70 97 10/13/18 04:00 95 H 18 98 10/13/18 03:01 36.6 C 97 H 27 H 107/57 L 100 10/13/18 03:00 96 H 23 96 10/13/18 02:01 96 H 22 91/45 L 95 10/13/18 02:00 96 H 22 95 10/13/18 01:02 96 H 104/58 L 91 10/13/18 01:00 94 H 92 10/13/18 00:01 93 H 18 111/51 L 93 10/13/18 00:00 92 H 16 91 10/12/18 23:01 36.7 C 91 H 13 121/69 96 10/12/18 23:00 90 10 L 98 Laboratory Results Microbiology 10/09/18 10:02 Back,Lower Gram Stain - Final 10/09/18 10:02 Back,Lower Aerobic and Anaerobic Culture - Preliminary Enterobacter cloacae Tiffany albicans 10/07/18 01:00 Urine,Straight Cath Urine Culture - Final No growth - less than 1,000 colonies/mL. 09/27/18 12:05 Blood Blood Culture - Final No growth 09/27/18 11:55 Blood Blood Culture - Final No growth 09/27/18 Unknown Urine,Straight Cath Urine Culture - Final Tiffany albicans
[2018-10-13] MEDS ORDERED: FUROSEMIDE 80 MG in SYRINGE 0 ML IV ONE ×2 (10:58→11:15)
--- NOTE | 2018-10-13 11:01 | Critical Care Progress Note ---
Date of Service October 13, 2018 Assessment & Plan (1) Admitted to intensive care unit: Reason Critically Ill: 67 y/o male with a PMHx of CHF, CAD, HTM , hyperlipidemia, DM, ANTONIO who initially presented for altered mental status and had recent paraspinal abscess and back pain tx with spinal fusion. He was admitted to the ICU in the post-op period due to hypotension. Neuro - [facility] ICU: NEGATIVE Cardiac - CAD s/p CABG 2002. Repeat cath 07/2018 without PCI, rec continued medical therapy - Repeat echo EF 20-25% with apical dyskinesis Symptomatic Bradycardia - Hypotensive. AICD placed 2011, pacer minimal rate increased from 40 to 80. May consider revision of hardware in the future with atrial lead and possibly a left ventricular lead per cards. - Unclear cause for HB. Lyme titer drawn. - Required norepinephrine .04 for pressure support overnight, weaned and d/jasmeet this morning. Continue to follow pressures. - Atorvastatin Statin held for dapto and CPK elevation Respiratory - Acute Hypoxic Respiratory Failure - SPO2NC 2L/min Obstructive sleep apnea - Last seen by pulmonary in June - CPAP qHS at home settings (23/01 per last note) GI - - Minced and Moist diet, Diabetic diet - Hemoccult positive gastric contents - Constipation: October 06 last bowel movement RENAL/LYTES - PAULA with CKD - Nonoliguric. .28cc/kg/hr (I:934, O: 700 urine 120 drain) - Trial of lasix 80mg today. no emergent need for dialysis at this time. May need to consider if no increase in UOP in next 24 horus or so, pt does not want dialysis if possible. - Sodium 135, Potassium 4.5 - Cr 3.03, uptrending from 2.5 - Replace lytes as needed. ENDO - - Detemir 5u for 130-180, 7u >180 - Aspart SSI - Adequate glycemic control with above HEME - Acute blood loss anemia - Hgb 8.5 from 10 today - DOMINGA drain with SS fluid - Hgb threshold >7 (consider 8 given underlying CAD and ischemic disease) ID - - Leukocytosis to 11.94 downtrending from 22 - [employer] on prior back culture . Enterobacter cloacae (imipenem I susceptibility) and C. albicans on repeat lower back cultures - Dapto 400mg Q48H - Caspofungin 50mg daily - Ceftriaxone 2g daily - 6 weeks IV Abx per ID INTEGUMENTARY - Paraspinal Abscess - Wound care per surgery - Abx as above LINES/IV ACCESS - PIVs intact. DVT PROPHYLAXIS - SCDs, Chemical prophylaxis contraindicated secondary to continued ongoing losses from surgical wound Thank you for allowing us to be part of this patient's care. Please refer to Dr. Teran's documentation for any further recommendations. Supervising Physician Co-Signing Physician Notes Neuro: Chronic pain: fentanyl patch - Continue current dosing regimen CV- Ischemic cardiomyopathy Coronary artery disease status post CABG 2002: Cardiac cath July 2018 encouraged medical management AICD 2011 with Back-up rate set an 80(Not dual-chamber) - Consideration given to dual-chamber pacemaker placement: Contraindication infected hardware Elevated troponins: Improving Holding statin secondary to daptomycin and elevated CPK Holding aspirin and Plavix secondary to acute blood loss anemia, Thrombocytopenia, will readdress with surgery Pulmonary- Obstructive sleep apnea:Will need CPAP entered And therapy to be delivered when sleeping and napping Acute hypoxic respiratory failure History reported of difficult intubation ID- paraspinal abscess on daptomycin: For staph coagulase-negative on previous culture. - culture from surgery with enterobacter and rajendra. ceftriaxone and capsofungin - Adjusting Dapto otherwise medications dosed for GFR less than 30 Renal- Anasarca: New oxygen requirement likely secondary to volume overload Chronic urinary retention: acute renal failure cr worse: - Reviewed nephrology notes - Will discuss with nephrology possible dialysis given anasarca, cardiac disease and new oxygen requirement GI- NPO Until seen by speech Hemoccult positive gastric contents Constipation: October 06 last bowel movement - Will add stool softeners when able to take p.o. Heme- Acute blood loss anemia: Surgical - Transfuse for hgb >7 - Will consider running higher hemoglobin level given possible demand ischemia/known coronary artery disease not amenable to therapeutic interventions at this time. - DOMINGA drain continuing to put out Serosanguineous fluids - Recheck coagulation profile tomorrow morning Thrombocytopenia DVT prophylaxis:SCDs, Chemical prophylaxis contraindicated secondary to continued ongoing losses from surgical wound Endocrine- - Levemir at home dosing Vascular access: Right PICC 08/26 For long-term antibiotic administration Chronic indwelling Rojas PT OT: Ordered full assist CODE STATUS:Full code Disposition: Consider downgrade to telemetry status. I have personally spent 60 minutes of critical care time in the direct management of this patient. This is a life/limb threatening event. This includes time spent evaluating patient, direct bedside care, chart review, placing orders, interpretation of diagnostic studies, discussion with consultants, patient, and/or family members regarding treatment decisions, as well as other required patient management activities. This time is exclusive of all separately billable procedures, and teaching time and separate from and in addition to any other critical care service time. Update: I had an extensive discussion with the patient, patient's , additional family member at the bedside. Patient would desire to be DO NOT RESUSCITATE in event of cardiac arrest. Given multiple comorbidities and statistics of likely poor outcome I am in agreement with his decision and feel he has made an informed decision. Subjective Endorses cough, fatigue. Denies chest pain, chest pressure today. Seen at bedside with family present. Endorses some abdominal discomfort. Discussed risks/benefits of CPR at bedside today in context of his illness and current medical condition. He prefers to be DNR/DNI status.Wishes confirmed with family who endorse 'it's what he wants.' ANxious about evaluation for possible need for dialysis, has not seen nephrology at time of beside visit. Review of Systems Review of Systems: Constitutional: Denies fever, chills. Endorses fatigue, leg weakness. Eyes: Denies double vision, vision change Cardiovascular: Denies Chest pain, chest pressure, palpitations. Endorses hand/leg swelling. Respiratory: Denies shortness of breath, sputum production, difficulty breathing this morning. Endorses dry intermittent cough. Gastrointestinal: Endorses abdominal fullness/mild discomfort. Denies nausea this morning. Genitourinary: Denies pain with urination Musculoskeletal: Endorses diffuse weakness/fatigue and leg weaknes. Denies other muscle aches/pain. Endorses back pain Integumentary:Denies new rash, lesions, bruising Neurological: Denies headache, numbness, tingling Physical Exam Physical Exam: General: A&Ox3 (name, date, place). Appears fatigued, somnolent. NAD. Cooperative. HEENT: Atraumatic, normocephalic. Pulm: CTAB A&P. -wheezes, -rales, -rhonchi. Symmetrical chest rise. No increase work of breathing. No respiratory distress. Cardiac: RRR, -mrg. Radial pulses intact and symmetrical. Abdominal: Obese, softly distended. Extremity: 3+ pitting edema through the knee bilaterally. 2-3+ edema of the hands bilaterally. Cap refill ~2 seconds. Results & Data Vital Signs (Past 12 Hours) Vital Signs Temp Pulse Resp BP Pulse Ox 10/13/18 08:01 36.5 C 91 H 16 136/86 100 10/13/18 07:01 91 H 19 137/73 99 10/13/18 06:01 36.6 C 92 H 21 150/83 H 100 10/13/18 06:00 92 H 20 98 10/13/18 05:01 92 H 23 122/87 100 10/13/18 05:00 92 H 20 100 10/13/18 04:02 95 H 17 134/70 97 10/13/18 04:00 95 H 18 98 10/13/18 03:01 36.6 C 97 H 27 H 107/57 L 100 10/13/18 03:00 96 H 23 96 10/13/18 02:01 96 H 22 91/45 L 95 10/13/18 02:00 96 H 22 95 10/13/18 01:02 96 H 104/58 L 91 10/13/18 01:00 94 H 92 10/13/18 00:01 93 H 18 111/51 L 93 10/13/18 00:00 92 H 16 91 10/12/18 23:01 36.7 C 91 H 13 121/69 96 10/12/18 23:00 90 10 L 98 10/12/18 22:01 91 H 15 118/54 L 97 10/12/18 22:00 90 20 96 Laboratory Results 10/13/18 10/13/18 10/13/18 Range/Units 12:58 04:56 04:56 WBC (4.8-10.8) K/uL RBC (4.7-6.1) M/uL Hgb (14.0-18.0) g/dL Hct (42-52) % MCV (80-100) fL MCH (25-34) pg MCHC (32-36) g/dL RDW Std Deviation (36.4-46.3) fL RDW Coeff of Norbert (11.5-14.5) % Plt Count (130-400) K/uL MPV (7.4-10.4) fL Immature Gran % (Auto) % Neut % (Auto) % Lymph % (Auto) % Walsh % (Auto) % Eos % (Auto) % Baso % (Auto) % Immature Gran # (Auto) (0.00-0.02) K/uL Neut # (Auto) (1.4-6.5) K/uL Lymph # (Auto) (1.2-3.4) K/uL Walsh # (Auto) (0.11-0.59) K/uL Eos # (Auto) (0-0.5) K/uL Baso # (Auto) (0-0.2) K/uL Absolute Nucleated RBC (0-0) K/uL Nucleated RBC % (auto) % Sodium (136-145) mmol/L Potassium (3.5-5.1) mmol/L Chloride (98-107) mmol/L Carbon Dioxide (21-32) mmol/L Anion Gap (3-11) BUN (7-18) mg/dl Creatinine (0.6-1.4) mg/dl Est Cr Clr Drug Dosing ml/min Est GFR ( Amer) Est GFR (Non-Af Amer) BUN/Creatinine Ratio (10-20) Glucose (70-99) mg/dl POC Glucose 131 H (70-99) Estimat Average Glucose mg/dl Hemoglobin A1c (4.5-5.6) % Calcium (8.5-10.1) mg/dl Phosphorus (2.5-4.9) mg/dl Magnesium (1.8-2.4) mg/dl Total Creatine Kinase (39-308) U/L Troponin I 17.500 H* (0-0.045) ng/ml Albumin (3.4-5.0) gm/dl Procalcitonin 2.33 H (0-0.5) ng/ml Crossmatch 10/13/18 10/13/18 10/13/18 Range/Units 04:56 04:56 03:13 WBC 11.94 H (4.8-10.8) K/uL RBC 2.91 L (4.7-6.1) M/uL Hgb 8.5 L (14.0-18.0) g/dL Hct 25.4 L (42-52) % MCV 87.3 (80-100) fL MCH 29.2 (25-34) pg MCHC 33.5 (32-36) g/dL RDW Std Deviation 50.6 H (36.4-46.3) fL RDW Coeff of Norbert 15.8 H (11.5-14.5) % Plt Count 124 L (130-400) K/uL MPV 10.1 (7.4-10.4) fL Immature Gran % (Auto) 0.8 % Neut % (Auto) 81.3 % Lymph % (Auto) 8.0 % Walsh % (Auto) 9.4 % Eos % (Auto) 0.3 % Baso % (Auto) 0.2 % Immature Gran # (Auto) 0.10 H (0.00-0.02) K/uL Neut # (Auto) 9.70 H (1.4-6.5) K/uL Lymph # (Auto) 0.96 L (1.2-3.4) K/uL Walsh # (Auto) 1.12 H (0.11-0.59) K/uL Eos # (Auto) 0.04 (0-0.5) K/uL Baso # (Auto) 0.02 (0-0.2) K/uL Absolute Nucleated RBC 0.06 H (0-0) K/uL Nucleated RBC % (auto) 0.5 % Sodium 135 L (136-145) mmol/L Potassium 4.5 (3.5-5.1) mmol/L Chloride 107 (98-107) mmol/L Carbon Dioxide 22 (21-32) mmol/L Anion Gap 6.0 (3-11) BUN 39 H (7-18) mg/dl Creatinine 3.03 H D (0.6-1.4) mg/dl Est Cr Clr Drug Dosing 28.3 ml/min Est GFR ( Amer) 23.9 Est GFR (Non-Af Amer) 20.6 BUN/Creatinine Ratio 12.7 (10-20) Glucose 117 H (70-99) mg/dl POC Glucose 122 H (70-99) Estimat Average Glucose mg/dl Hemoglobin A1c (4.5-5.6) % Calcium 8.0 L (8.5-10.1) mg/dl Phosphorus 3.2 (2.5-4.9) mg/dl Magnesium 2.4 (1.8-2.4) mg/dl Total Creatine Kinase 203 (39-308) U/L Troponin I (0-0.045) ng/ml Albumin 2.0 L (3.4-5.0) gm/dl Procalcitonin (0-0.5) ng/ml Crossmatch 10/12/18 10/12/18 10/12/18 Range/Units 23:11 20:09 15:57 WBC (4.8-10.8) K/uL RBC (4.7-6.1) M/uL Hgb (14.0-18.0) g/dL Hct (42-52) % MCV (80-100) fL MCH (25-34) pg MCHC (32-36) g/dL RDW Std Deviation (36.4-46.3) fL RDW Coeff of Norbert (11.5-14.5) % Plt Count (130-400) K/uL MPV (7.4-10.4) fL Immature Gran % (Auto) % Neut % (Auto) % Lymph % (Auto) % Walsh % (Auto) % Eos % (Auto) % Baso % (Auto) % Immature Gran # (Auto) (0.00-0.02) K/uL Neut # (Auto) (1.4-6.5) K/uL Lymph # (Auto) (1.2-3.4) K/uL Walsh # (Auto) (0.11-0.59) K/uL Eos # (Auto) (0-0.5) K/uL Baso # (Auto) (0-0.2) K/uL Absolute Nucleated RBC (0-0) K/uL Nucleated RBC % (auto) % Sodium (136-145) mmol/L Potassium (3.5-5.1) mmol/L Chloride (98-107) mmol/L Carbon Dioxide (21-32) mmol/L Anion Gap (3-11) BUN (7-18) mg/dl Creatinine (0.6-1.4) mg/dl Est Cr Clr Drug Dosing ml/min Est GFR ( Amer) Est GFR (Non-Af Amer) BUN/Creatinine Ratio (10-20) Glucose (70-99) mg/dl POC Glucose 136 H 141 H 132 H (70-99) Estimat Average Glucose mg/dl Hemoglobin A1c (4.5-5.6) % Calcium (8.5-10.1) mg/dl Phosphorus (2.5-4.9) mg/dl Magnesium (1.8-2.4) mg/dl Total Creatine Kinase (39-308) U/L Troponin I (0-0.045) ng/ml Albumin (3.4-5.0) gm/dl Procalcitonin (0-0.5) ng/ml Crossmatch 10/12/18 10/10/18 Range/Units 04:59 10:53 WBC (4.8-10.8) K/uL RBC (4.7-6.1) M/uL Hgb (14.0-18.0) g/dL Hct (42-52) % MCV (80-100) fL MCH (25-34) pg MCHC (32-36) g/dL RDW Std Deviation (36.4-46.3) fL RDW Coeff of Norbert (11.5-14.5) % Plt Count (130-400) K/uL MPV (7.4-10.4) fL Immature Gran % (Auto) % Neut % (Auto) % Lymph % (Auto) % Walsh % (Auto) % Eos % (Auto) % Baso % (Auto) % Immature Gran # (Auto) (0.00-0.02) K/uL Neut # (Auto) (1.4-6.5) K/uL Lymph # (Auto) (1.2-3.4) K/uL Walsh # (Auto) (0.11-0.59) K/uL Eos # (Auto) (0-0.5) K/uL Baso # (Auto) (0-0.2) K/uL Absolute Nucleated RBC (0-0) K/uL Nucleated RBC % (auto) % Sodium (136-145) mmol/L Potassium (3.5-5.1) mmol/L Chloride (98-107) mmol/L Carbon Dioxide (21-32) mmol/L Anion Gap (3-11) BUN (7-18) mg/dl Creatinine (0.6-1.4) mg/dl Est Cr Clr Drug Dosing ml/min Est GFR ( Amer) Est GFR (Non-Af Amer) BUN/Creatinine Ratio (10-20) Glucose (70-99) mg/dl POC Glucose (70-99) Estimat Average Glucose 114 mg/dl Hemoglobin A1c 5.6 (4.5-5.6) % Calcium (8.5-10.1) mg/dl Phosphorus (2.5-4.9) mg/dl Magnesium (1.8-2.4) mg/dl Total Creatine Kinase (39-308) U/L Troponin I (0-0.045) ng/ml Albumin (3.4-5.0) gm/dl Procalcitonin (0-0.5) ng/ml Crossmatch See Detail Medications Administered Current Inpatient Medications Acetaminophen (Tylenol) 1,000 mg PO Q8H PRN PRN Reason: MILD Pain Rating 1,2,3 Stop: 11/08/18 14:15 Al Hydrox/Mg Hydrox/Simethicone (Maalox) 30 ml PO Q6H PRN PRN Reason: Dyspepsia Stop: 11/08/18 14:15 Last Admin: 10/10/18 17:42 Dose: 30 ml Documented by: Aspirin ([facility]rin Ectab) [facility] Stop: 10/28/18 08:59 Last Admin: 10/12/18 08:39 Dose: Not Given Documented by: Atorvastatin Calcium (Lipitor) 40 mg PO HS [facility] Stop: 10/27/18 20:59 Last Admin: 10/10/18 20:09 Dose: Not Given Documented by: Bisacodyl (Dulcolax) 10 mg MD DAILY PRN PRN Reason: Constipation Stop: 11/08/18 14:15 Cyanocobalamin (Vitamin B-12) 1,000 mcg PO DAILY [facility] Stop: 10/28/18 08:59 Last Admin: 10/13/18 08:00 Dose: Not Given Documented by: Fentanyl (Duragesic) 25 mcg TD Q3D@1430 [facility] Stop: 10/18/18 14:29 Last Admin: 10/10/18 14:03 Dose: 25 mcg Documented by: Finasteride (Proscar) 5 mg PO QAM [facility] Stop: 10/28/18 08:59 Last Admin: 10/13/18 08:00 Dose: Not Given Documented by: Heparin Sodium (Beef Lung) (Heparin Sod 10 Unit/Ml Flush) 5 ml FLUSH PRN PRN PRN Reason: Flush Stop: 10/28/18 00:27 Last Admin: 10/12/18 08:45 Dose: 5 ml Documented by: Hydromorphone HCl (Dilaudid) 0.5 - 1 mg IV Q3H PRN PRN Reason: Pain Stop: 10/23/18 14:15 Last Admin: 10/12/18 23:05 Dose: 0.5 mg Documented by: Hydroxyzine HCl (Vistaril) 25 mg PO Q8H PRN PRN Reason: Anxiety Stop: 11/08/18 14:15 Lorazepam (Ativan) 0.5 mg in 1 mls @ 0.5 mls/min IV Q8H PRN PRN Reason: Sedation/Anxiety Stop: 11/08/18 14:15 Promethazine HCl 12.5 mg/ (Sodium Chloride) 50.5 mls @ 204 mls/hr IV Q6H PRN PRN Reason: Nausea &/or Vomiting Stop: 11/08/18 14:15 Last Infusion: 10/10/18 01:01 Dose: Infused Documented by: Acetaminophen (Ofirmev) 1,000 mg in 100 mls @ 400 mls/hr IV Q8 PRN PRN Reason: MILD Pain Rating 1,2,3 Stop: 11/08/18 14:15 Last Infusion: 10/13/18 08:21 Dose: Infused Documented by: Sodium Chloride (Nss) 250 mls @ 15 mls/hr IV .[id number] PRN PRN Reason: For Transfusion Stop: 11/09/18 05:48 Sodium Chloride (Nss) 250 mls @ 15 mls/hr IV .[id number] PRN PRN Reason: For Transfusion Stop: 11/10/18 20:13 Sodium Chloride (Nss) 250 mls @ 15 mls/hr IV .[id number] PRN PRN Reason: For Transfusion Stop: 11/10/18 20:20 Ceftriaxone Sodium 2,000 mg/ (Dextrose) 70 mls @ 140 mls/hr IV DAILY [facility]; Protocol Stop: 11/23/18 08:59 Last Infusion: 10/13/18 09:16 Dose: Infused Documented by: Caspofungin 50 mg/ Sodium (Chloride) 260 mls @ 250 mls/hr IV DAILY [facility]; Protocol Stop: 10/23/18 08:59 Last Infusion: 10/13/18 10:31 Dose: Infused Documented by: Daptomycin 400 mg/ Syringe 8 mls @ 4 mls/min IV Q48H [facility]; Protocol Stop: 11/18/18 15:59 Ranitidine HCl 50 mg/ Dextrose 102 mls @ 200 mls/hr IV Q18H [facility] Stop: 11/11/18 16:59 Influenza Virus Vaccine Quadrival (Flu Vaccine, Do Not Administer) 1 ea N/A PRN PRN PRN Reason: Notification Stop: 11/08/18 14:15 Insulin Aspart (Novolog Flexpen) 0 units SC Q4 [facility] Stop: 11/09/18 16:29 Last Admin: 10/13/18 13:22 Dose: Not Given Documented by: Insulin Detemir (Levemir Flextouch) 0 units SQ BID [facility]; Protocol Stop: 11/09/18 20:59 Last Admin: 10/13/18 08:14 Dose: Not Given Documented by: Lorazepam (Ativan) 0.5 mg PO Q8H PRN PRN Reason: Sedation/Anxiety Stop: 11/08/18 14:15 Magnesium Hydroxide (Milk Of Magnesia) 30 ml PO DAILY PRN PRN Reason: Constipation Stop: 11/08/18 14:15 Magnesium Oxide (Mag-Ox) 400 mg PO QAM [facility] Stop: 10/28/18 08:59 Last Admin: 10/13/18 08:00 Dose: Not Given Documented by: Metoclopramide HCl (Reglan) 10 mg IV Q6H PRN PRN Reason: Nausea &/or Vomiting Stop: 11/08/18 14:15 Last Admin: 10/13/18 08:13 Dose: 10 mg Documented by: Metoprolol Succinate (Toprol Xl) 100 mg PO QAM [facility] Stop: 10/28/18 08:59 Last Admin: 10/12/18 08:40 Dose: Not Given Documented by: Miscellaneous (Fentanyl Patch Check Placement) 1 ea N/A QS [facility] Stop: 11/12/18 07:59 Last Admin: 10/13/18 08:00 Dose: 1 ea Documented by: Miscellaneous (Fentanyl Patch Remove & Waste) 1 ea N/A Q72H [facility] Stop: 11/12/18 14:28 Miscellaneous Information (Consult) 1 ea N/A UD PRN PRN Reason: Consult Stop: 11/06/18 15:38 Miscellaneous Information (Consult Glycemic Management Pharmacy) 1 ea N/A UD PRN PRN Reason: Consult Stop: 11/09/18 16:16 Ondansetron HCl (Zofran) 4 mg IV Q6H PRN PRN Reason: Nausea &/or Vomiting Stop: 11/08/18 14:15 Last Admin: 10/13/18 01:13 Dose: 4 mg Documented by: Ondansetron HCl (Zofran) 4 mg PO Q6H PRN PRN Reason: Nausea Stop: 11/08/18 14:15 Oxycodone HCl (Roxicodone Immediate Rel) 5 - 10 mg PO Q4H PRN PRN Reason: Moderate-Severe Pain Stop: 10/23/18 14:15 Last Admin: 10/10/18 04:42 Dose: 10 mg Documented by: Pneumococcal Polyvalent Vaccine (Pneumococcal Vacc, Do Not Administer) 1 ea N/A PRN PRN PRN Reason: Notification Stop: 11/08/18 14:15 Polyethylene Glycol (Miralax Powder Packet) 17 gm PO Q6 [facility] Stop: 11/09/18 05:59 Last Admin: 10/13/18 08:01 Dose: Not Given Documented by: Sodium Biphosphate/Sodium Phosphate (Fleet Enema) 132 ml MD ONE PRN PRN Reason: Constipation Stop: 11/08/18 14:15 Tamsulosin HCl (Flomax) 0.4 mg PO HS [facility] Stop: 10/27/18 20:59 Last Admin: 10/12/18 20:24 Dose: Not Given Documented by: Vitamin D (Vitamin D3) 2,000 units PO DAILY [facility] Stop: 10/28/18 08:59 Last Admin: 10/13/18 08:01 Dose: Not Given Documented by: Resident Activity Tracking Resident Involvement: Resident Care Provided Care Provided: Adult Hospital Medicine
--- NOTE | 2018-10-13 12:32 | Nephrology Progress Note ---
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 Cooper appeared slightly confused this morning. He was oriented to person, place, and time. He did not recall being in the hospital yesterday. He did report that PT was in his room today. He was aware that his kidneys weren't working. He was very resistant to the idea of starting dialysis. He repeatedly stated that he did not want to be hooked to a machine. He denies any dyspnea. He denies any chest pain or palpitations. He has been afebrile. Review of Systems Review of Systems: All systems reviewed & are unremarkable except as noted in HPI & below Physical Exam Constitutional: + obese and + edematous; no acute distress Eyes: no scleral abnormality and no corneal abnormality ENMT: Mouth: no oral mucosal abnormality and oral mucous membranes not dry Neck: normal visual inspection and trachea midline Respiratory: normal respiratory effort; no respiratory distress Auscultation: + rales Cardiovascular: Rate/Rhythm: regular rate Heart Sounds: normal S1 and normal S2 Vessels: no JVD Extremities: + edema Gastrointestinal (Abdomen): Inspection/Auscultation: + abdomen distended Percussion/Palpation: abdomen soft; abdomen nontender Musculoskeletal: Extremities: no cyanosis and no clubbing Skin: normal turgor; no rashes Neurologic: Motor/Sensory: no tremor and no asterixis Psychiatric: Orientation: alert and oriented x 3 Results & Data Vital Signs (Past 12 Hours) Vital Signs Temp Pulse Resp BP Pulse Ox 10/13/18 10:01 90 17 107/73 99 10/13/18 09:01 92 H 20 138/83 100 10/13/18 08:01 36.5 C 91 H 16 136/86 100 10/13/18 07:01 91 H 19 137/73 99 10/13/18 06:01 36.6 C 92 H 21 150/83 H 100 10/13/18 06:00 92 H 20 98 10/13/18 05:01 92 H 23 122/87 100 10/13/18 05:00 92 H 20 100 10/13/18 04:02 95 H 17 134/70 97 10/13/18 04:00 95 H 18 98 10/13/18 03:01 36.6 C 97 H 27 H 107/57 L 100 10/13/18 03:00 96 H 23 96 10/13/18 02:01 96 H 22 91/45 L 95 10/13/18 02:00 96 H 22 95 10/13/18 01:02 96 H 104/58 L 91 10/13/18 01:00 94 H 92 Laboratory Results Laboratory Results - last 24 hr 10/10/18 10/12/18 10/12/18 10:53 04:59 12:40 WBC RBC Hgb Hct MCV MCH MCHC RDW Std Deviation RDW Coeff of Norbert Plt Count MPV Immature Gran % (Auto) Neut % (Auto) Lymph % (Auto) [place] % (Auto) Eos % (Auto) Baso % (Auto) Immature Gran # (Auto) Neut # (Auto) Lymph # (Auto) [place] # (Auto) Eos # (Auto) Baso # (Auto) Absolute Nucleated RBC Nucleated RBC % (auto) Sodium Potassium Chloride Carbon Dioxide Anion Gap BUN Creatinine Est Cr Clr Drug Dosing Est GFR ( Amer) Est GFR (Non-Af Amer) BUN/Creatinine Ratio Glucose POC Glucose Estimat Average Glucose 114 Hemoglobin A1c 5.6 Calcium Phosphorus Magnesium Total Creatine Kinase Troponin I Albumin Procalcitonin Gastric Fluid pH 2 Gastric Occult Blood Positive A Crossmatch See Detail 10/12/18 10/12/18 10/12/18 15:57 20:09 23:11 WBC RBC Hgb Hct MCV MCH MCHC RDW Std Deviation RDW Coeff of Norbert Plt Count MPV Immature Gran % (Auto) Neut % (Auto) Lymph % (Auto) [place] % (Auto) Eos % (Auto) Baso % (Auto) Immature Gran # (Auto) Neut # (Auto) Lymph # (Auto) [place] # (Auto) Eos # (Auto) Baso # (Auto) Absolute Nucleated RBC Nucleated RBC % (auto) Sodium Potassium Chloride Carbon Dioxide Anion Gap BUN Creatinine Est Cr Clr Drug Dosing Est GFR ( Amer) Est GFR (Non-Af Amer) BUN/Creatinine Ratio Glucose POC Glucose 132 H 141 H 136 H Estimat Average Glucose Hemoglobin A1c Calcium Phosphorus Magnesium Total Creatine Kinase Troponin I Albumin Procalcitonin Gastric Fluid pH Gastric Occult Blood Crossmatch 10/13/18 10/13/18 10/13/18 03:13 04:56 04:56 WBC 11.94 H RBC 2.91 L Hgb 8.5 L Hct 25.4 L MCV 87.3 MCH 29.2 MCHC 33.5 RDW Std Deviation 50.6 H RDW Coeff of Norbert 15.8 H Plt Count 124 L MPV 10.1 Immature Gran % (Auto) 0.8 Neut % (Auto) 81.3 Lymph % (Auto) 8.0 [place] % (Auto) 9.4 Eos % (Auto) 0.3 Baso % (Auto) 0.2 Immature Gran # (Auto) 0.10 H Neut # (Auto) 9.70 H Lymph # (Auto) 0.96 L [place] # (Auto) 1.12 H Eos # (Auto) 0.04 Baso # (Auto) 0.02 Absolute Nucleated RBC 0.06 H Nucleated RBC % (auto) 0.5 Sodium 135 L Potassium 4.5 Chloride 107 Carbon Dioxide 22 Anion Gap 6.0 BUN 39 H Creatinine 3.03 H D Est Cr Clr Drug Dosing 28.3 Est GFR ( Amer) 23.9 Est GFR (Non-Af Amer) 20.6 BUN/Creatinine Ratio 12.7 Glucose 117 H POC Glucose 122 H Estimat Average Glucose Hemoglobin A1c Calcium 8.0 L Phosphorus 3.2 Magnesium 2.4 Total Creatine Kinase 203 Troponin I Albumin 2.0 L Procalcitonin Gastric Fluid pH Gastric Occult Blood Crossmatch 10/13/18 10/13/18 04:56 04:56 WBC RBC Hgb Hct MCV MCH MCHC RDW Std Deviation RDW Coeff of Norbert Plt Count MPV Immature Gran % (Auto) Neut % (Auto) Lymph % (Auto) [place] % (Auto) Eos % (Auto) Baso % (Auto) Immature Gran # (Auto) Neut # (Auto) Lymph # (Auto) [place] # (Auto) Eos # (Auto) Baso # (Auto) Absolute Nucleated RBC Nucleated RBC % (auto) Sodium Potassium Chloride Carbon Dioxide Anion Gap BUN Creatinine Est Cr Clr Drug Dosing Est GFR ( Amer) Est GFR (Non-Af Amer) BUN/Creatinine Ratio Glucose POC Glucose Estimat Average Glucose Hemoglobin A1c Calcium Phosphorus Magnesium Total Creatine Kinase Troponin I 17.500 H* Albumin Procalcitonin 2.33 H Gastric Fluid pH Gastric Occult Blood Crossmatch
--- NOTE | 2018-10-13 12:36 | Cardiology Progress Note ---
Date of Service October 13, 2018 Assessment & Plan (1) Coronary artery disease: The patient has an extensive cardiac history. Cardiac catheterization performed in July 2018 noted a patent DELATORRE and FERNANDO along with significant [place] coronary disease. However, none nothing was amenable to intervention at that time and medical care was recommended. The patient has done well since that time without episodes of angina pectoris, he was having what is described as "heartburn" which could be angina. During his hospitalization, including after his events last night, he has continued to deny chest discomfort or heartburn. He developed heart block (which could be due to ischemia although no t necessarily since he has underlying conduction disease) with bradycardia and is troponin mann to 30, with a subsequent measurement of 33. He certainly has reason to have ischemia given his anemia, use of Levophed, hypotension and stress. Although he could have had a cardiac event I think it is conceivable that this is demand ischemia even with that high of a troponin measurement. I do not think we can consider invasive evaluation under the circumstances, including his recent back surgery and blood loss. (2) Ischemic cardiomyopathy: Left ventricular systolic function was moderately reduced with an ejection fraction of 30-35% on an echocardiogram performed in July 2018. On October 12, 2018 his echocardiogram looked worse to me, but has not been officially read. This could just be due to stunning from his difficult postoperative course. I would plan on repeating it as a limited echo prior to discharge to reassess his left ventricular function. (3) Chronic systolic (congestive) heart failure: Clinically he had done well with his heart failure prior to surgery. Now he has evidence of ongoing fluid overload, however that appears to be iatrogenic from blood and volume to treat his hypotension and anemia. He does not seem to have gone into significant left heart failure despite a reduction in ejection fraction. I do not think the fluid retention reflects worsening of his cardiac function. We need to try to diuresis more if his blood pressure will allow it. (4) ICD (implantable cardioverter-defibrillator) in place: The patient had a single-chamber ICD placed after an episode of sudden cardiac in October 2011. His device has been functioning properly and was checked on May 12, 2018, as well as during last night of October 11, 2018 with reprogramming of the ventricular rate. Today he is no longer pacing, having intrinsic conduction. I am going to leave him at 80 bpm for now, prior to discharg we should probably at least reduce the rate to a more normal value. (5) Third degree AV block: He developed complete heart block a little before 1900 on October 11, 2018, the cause is not clear but he does have underlying conduction disease and he was tachycardic. It has now resolved as of this morning. It could have been due to ischemia. His ICD had been programmed to a fixed rate of 40 bpm since it was a single-chamber device and that is the standard, if he requires long-term pacing we may have to consider upgrading his device, even adding an atrial lead and possibly a left ventricular lead. I certainly would not make that decision now, he has regained conduction, through device monitoring we can determine how often he requires ventricular pacing in the future. Subjective He seems to be doing a little bit better today, he has no specific complaints. He does seem to be a little bit confused. Physical Exam Physical Exam: Constitutional: Alert, cooperative and in no distress. Pulmonary: Clear to auscultation bilaterally. Cardiac: Regular rhythm with no murmur, gallop or rub. Abdomen: Soft, nontender with normal bowel sounds. Extremities: +3 bilateral pretibial edema, +2 edema of arms and hands. Skin: No rash, ecchymoses or petechiae. Results & Data Vital Signs (Past 12 Hours) Vital Signs Temp Pulse Resp BP Pulse Ox 10/13/18 10:01 90 17 107/73 99 10/13/18 09:01 92 H 20 138/83 100 10/13/18 08:01 36.5 C 91 H 16 136/86 100 10/13/18 07:01 91 H 19 137/73 99 10/13/18 06:01 36.6 C 92 H 21 150/83 H 100 10/13/18 06:00 92 H 20 98 10/13/18 05:01 92 H 23 122/87 100 10/13/18 05:00 92 H 20 100 10/13/18 04:02 95 H 17 134/70 97 10/13/18 04:00 95 H 18 98 10/13/18 03:01 36.6 C 97 H 27 H 107/57 L 100 10/13/18 03:00 96 H 23 96 10/13/18 02:01 96 H 22 91/45 L 95 10/13/18 02:00 96 H 22 95 10/13/18 01:02 96 H 104/58 L 91 10/13/18 01:00 94 H 92
--- NOTE | 2018-10-13 12:57 | Pharmacy Report ---
Pharmacy Glycemic Short Note 2 - Date of Service October 13, 2018 - Glycemic Short BSG Results (Last 24 hours): 10/12/18 10/12/18 10/12/18 15:57 20:09 23:11 Glucose POC Glucose 132 H 141 H 136 H 10/13/18 10/13/18 03:13 04:56 Glucose 117 H POC Glucose 122 H OUTPATIENT ANTIDIABETIC REGIMEN: * Levemir 7 units BID * Novolog 10 units TID w/ meals + SSI * Metformin 1gm PO BID * A1c = 6.3% 07-27-18 ASSESSMENT: 10/13 * BSGs with better control yesterday, patient was made NPO for swallow issues until speech eval * Slightly adjusted lantus scale, patient NPO and did not receive per sliding scale BSG * Continue current novolog orders 10/12 * BSGs were well controlled throughout the day yesterday, however last evening BSGs did rise into the 200's * Last evening pt became bradycardic requiring atropine, dopamine and norepinephrine infusions for inotropic and pressor support * Troponin on the rise as well * Acute stressors did likely lead to climbing BSGs * Both dopamine and norepi weaned off this AM and VSS * Will increase Lantus dose on the BID scale only slightly at this time now that pressors off. Will provide more correctional insulin as well in the short term. His PAULA has worsening increasing the risk for insulin accumulation and hypoglycemia as well. 10/11 * BSGs remained elevated the rest of the day yesterday, however are down to goal this AM * Fasting BSG 154-158 this AM w/ 10 units Levemir on board and after receiving 3 units of Novolog correction overnight. * Will continue with current orders at this time and follow BSG pattern * Pt remains very drowsy this AM, and nausea continues 10/10 * Type 2 diabetic identified with sustained hyperglycemia (BSGs > 180) in the ICU (1east) * Pt appears to have received dexamethasone IV in the OR * Patient had been tolerating Levemir 5 units BID this admission without hypoglycemia however is currently on hold * Novolog doses are appropriate starting points, although he could benefit from slightly higher doses in the short term given current stressors * Tight glycemic control in the post-op setting has been shown to prevent surgical site infxn PLAN FOR INPATIENT GLYCEMIC CONTROL: * Hold outpatient oral diabetes medications (metformin) * Basal insulin (dose increase) * Levemir SQ BID per the following scale: * 0 units if less than 130 * 5 units if 130 - 170 * 7 units if BSG above 170 * Bolus insulin (dose increase) * NovoLog per scale Q 4 hrs initially until BSGs at goal consistently * Goal Range: Low 120 mg/dL - High 150 mg/dL * Correction Factor: 20 mg/dL/unit * Nutritional / Prandial insulin per carb ratio of 1 unit per 7 grams CHO consumed PLAN FOR DISCHARGE: * to be determined
[2018-10-13] MEDS: fentaNYL 25 MCG/HR TDSY TD SCH (14:25)
[2018-10-13 15:48] LABS: iSTAT Allen Test Pass; iSTAT Arterial Blood Gas HCO3 19 meg/L (19-24); iSTAT Arterial Blood Gas pCO2 31 mmHg (35-46); iSTAT Carbon Dioxide 20 mEq/l (24-31); iSTAT Hematocrit 22 % (42-52); iSTAT Hemoglobin 7.5 g/dl (14.0-18.0); iSTAT Potassium 4.4 mEq/L (3.3-5.0); iSTAT Site R Brachial; iSTAT Sodium 135 mEq/L (135-144)
[2018-10-13] MEDS: ACETAMINOPHEN 500 MG TAB PO PRN (19:13)
[2018-10-13] MEDS: TAMSULOSIN HCL 0.4 MG CAP PO SCH (20:40)
--- NOTE | 2018-10-13 22:00 | Hospitalist Progress Note ---
Date of Service October 13, 2018 Assessment & Plan (1) Third degree AV block: 10/11 - Mr. Cooper became bradycardic in a complete block and required pressor. His ICD was subsequently turned up to 80 from 40. His troponin reached 33. Per cardiology may be ischemia from the bradycardia or may be cardiac event, however given his current condition will not take him for cath. Pressors were stopped on 10/13. Will continue to monitor. 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 The patient's creatinine had been improving but began increasing after this most recent surgery and is now back up to 2.5 - nephrology consulted - may be ATN due to hypotension which will take some time to recover - continue serial prps -Creatinine is worse today: above 3 (4) Thrombocytopenia: Platelets had dropped to 55,000 from 250,000 on admission but appear to be rebounding. Heparin antibodies were negative. Zyvox adverse effect includes thrombocytopenia. Discussed with ID changed to daptomycin CPK elevated at 700 on 10/11 so will hold statin. (5) Altered mental status: resolved metabolic encephalopathy due to PAULA on CKD, chronic pain, chronic infection, and on narcotics (6) Coagulase-negative staphylococcal infection: Wound culture 09/10 Daptomycin as above was on Vanco but stopped due to PAULA [facility] f/u Dr. Ndiaye for further instructions (7) Post-operative pain: Continue narcotic therapy for chronic pain management. Appreciate orthopedic consultation and management of the infection. Fentanyl dosage increased 10/04 to 25 mcg patch every 3 days (8) Chronic systolic heart failure: Currently fluid overloaded. IVF dc'd Last echo 07/2018 - ejection fraction of 30-35% Echo repeated given elevated troponin and pending Per cardiology - patient should be diuresed as soon as possible though he does not appear to be in left heart failure (9) Urinary retention: continue luna, changed 09/29 for funguria (10) Acute anemia: Given a total of 8u PRBCs this admission. (11) Ischemic cardiomyopathy: Continue current medical management - ASA restarted, will need to restart plavix once platelets begin to rebound and bleeding risk has improved (12) ICD (implantable cardioverter-defibrillator) in place: Stable (13) Diabetes mellitus, type 2: diabetic diet Novolog, lant (14) Acute UTI (urinary tract infection): Fungal elements isolated. Intravenous caspofungin through October 05. Repeat UC - no fungal growth (15) DVT prophylaxis: heparin subq held for low platelets, SCDs - platelets are improving, if patient can keep his hgb stable should restart heparin subq but will hold given bleeding risk and requirement of multiple units PRBCs Platelets at 124 Spent 35 minutes in management of patient. This included chart review. Subjective 67 yo male reports no new symptoms today. D/W nurse, vasopressors were stopped today. Review of Systems Review of Systems: All systems reviewed & are unremarkable except as noted in HPI & below Physical Exam Physical Exam: General: no distress, off pressors. Eyes: normal inspection, PERLL Respiratory: chest non tender, clear to auscultation, normal breath sounds, no respiratory distress, no accessory muscle use Cardiac: regular rate and rhythm, no rub or gallop, no murmur, no edema, no jvd GI/: active bowel sounds, no abd pain or tenderness, soft, non distended Extremities: normal range of motion, normal strength, non tender Neuro/Psych: alert and oriented x 3, normal mood and affect Skin: dry Results & Data Vital Signs (Past 12 Hours) Vital Signs Temp Pulse Resp BP Pulse Ox 10/13/18 19:01 90 18 128/74 93 10/13/18 19:00 91 H 19 92 10/13/18 18:01 89 20 125/73 95 10/13/18 18:00 90 17 95 10/13/18 17:02 87 18 100 10/13/18 17:01 88 18 114/73 100 10/13/18 17:00 87 17 100 10/13/18 16:01 87 17 125/71 100 10/13/18 16:00 36.7 C 87 19 100 10/13/18 15:39 87 10/13/18 15:01 89 19 119/77 100 10/13/18 15:00 91 H 18 10/13/18 14:01 87 19 110/70 100 10/13/18 14:00 87 18 100 10/13/18 13:42 92 H 21 129/69 10/13/18 13:01 88 20 129/69 98 10/13/18 13:00 88 19 100 10/13/18 12:01 91 H 12 126/76 100 10/13/18 12:00 89 18 100 10/13/18 11:05 36.8 C 88 20 103/60 100 10/13/18 11:02 92 H 20 10/13/18 11:00 93 H 21 99 10/13/18 10:38 87 10/13/18 10:01 90 17 107/73 99
[2018-10-14] MEDS: POLYETHYLENE (MIRALAX) 17 GM PACK PO SCH ×5 (00:32→20:54)
[2018-10-14] MEDS: CHECK FENTANYL PATCH PLACEMENT SCH ×3 (00:33→15:35)
[2018-10-14] MEDS: INSULIN ASPART 100 UNITS/ML 3 ML PEN SC SCH ×6 (00:37→21:10)
[2018-10-14 04:56] LABS: Hematocrit (blood only) 26.5 % (42-52); Hemoglobin 8.7 g/dL (14.0-18.0); Mean Corpuscular Hgb Conc 32.8 g/dL (32-36); Mean Corpuscular Volume 88.6 fL (80-100); Mean Platelet Volume 9.7 fL (7.4-10.4); Nucleated RBC # (auto) 0.08 K/uL (0-0); Nucleated RBC % (auto) 0.9 %; Platelet Count 166 K/uL (130-400); RDW Coefficient of Variation 16.4 % (11.5-14.5); RDW Standard Deviation 51.8 fL (36.4-46.3); Red Blood Count 2.99 M/uL (4.7-6.1); White Blood Count 9.34 K/uL (4.8-10.8)
[2018-10-14 05:06] LABS: INR 1.1 (0.9-1.1); Partial Thromboplastin Ratio 1.2; Partial Thromboplastin Time 32.3 Seconds (21.0-31.0); Prothrombin Time 11.3 Seconds (9.0-12.0)
[2018-10-14 05:16] LABS: Creatinine Clr Calc Pharmacy 30.5 ml/min; Est GFR (African American) 26.1; Est GFR (Non-African American) 22.5; Potassium 4.1 mmol/L (3.5-5.1)
[2018-10-14 05:36] LABS: Phosphorus 3.8 mg/dl (2.5-4.9)
[2018-10-14] MEDS: CYANOCOBALAMIN 500 MCG TABLET (VITAMIN B-12) PO SCH (07:55)
[2018-10-14] MEDS: FINASTERIDE 5 MG TAB PO SCH (07:55)
[2018-10-14] MEDS: CHOLECALCIFEROL 1,000 UNITS TAB PO SCH (07:55)
[2018-10-14] MEDS: cefTRIAXone SODIUM 2,000 MG in DEXTROSE 5% 50 ML IV SCH (07:57)
[2018-10-14] MEDS: CASPOFUNGIN 50 MG in SODIUM CHLORIDE 0.9% 250 ML IV SCH (07:57)
[2018-10-14] MEDS: INSULIN DETEMIR FLEXPEN/FLEX TOUCH 100 UNITS/ML 3ML SQ SCH ×2 (08:12→21:09)
[2018-10-14] MEDS: MAGNESIUM OXIDE 400 MG TAB PO SCH (08:14)
--- NOTE | 2018-10-14 09:15 | Nephrology Progress Note ---
Date of Service October 14, 2018 Assessment & Plan (1) Acute kidney injury: -- Non-oliguric, even fluid balance -- Creatinine slightly improved, metabolic profile otherwise acceptable -- No emergent indication for HD -- Additional furosemide 80 mg IV this AM, repeat as needed to encourage net neg ative fluid balance -- Document I/O's -- Repeat metabolic profile tomorrow AM -- Medications are appropriately dosed for kidney function (2) Chronic indwelling Rojas catheter: -- Rojas catheter changed out due to funguria 09/29 -- Patient is now on Caspofungin therapy as per ID (3) Delirium: -- Mental status improved based on my assessment this morning Subjective No acute events overnight. UOP improved slightly. Even fluid balance with furosemide yesterday. Breathing relatively comfortably this morning. Remains significantly weak. Denies pain. Activity tolerance is poor. Review of Systems Review of Systems: All systems reviewed & are unremarkable except as noted in HPI & below Physical Exam Constitutional: + obese and + edematous; no acute distress Eyes: no scleral abnormality and no corneal abnormality ENMT: Mouth: no oral mucosal abnormality and oral mucous membranes not dry Neck: normal visual inspection and trachea midline Respiratory: normal respiratory effort; no respiratory distress Auscultation: + rales Cardiovascular: Rate/Rhythm: regular rate Heart Sounds: normal S1 and normal S2 Vessels: no JVD Extremities: + edema Gastrointestinal (Abdomen): Inspection/Auscultation: + abdomen distended Percussion/Palpation: abdomen soft; abdomen nontender Musculoskeletal: Extremities: no cyanosis and no clubbing Skin: normal turgor; no rashes Neurologic: Motor/Sensory: no tremor and no asterixis Psychiatric: Orientation: alert Eye Contact: good eye contact Results & Data Vital Signs (Past 12 Hours) Vital Signs Temp Pulse Resp BP Pulse Ox 10/14/18 06:01 84 8 L 98/59 L 100 10/14/18 05:01 85 10 L 122/74 100 10/14/18 04:05 36.5 C 10/14/18 04:01 84 13 107/70 100 10/14/18 03:01 87 13 103/77 99 10/14/18 02:01 82 10 L 107/67 100 10/14/18 01:05 90 18 98 10/14/18 01:01 86 23 109/66 100 10/14/18 00:01 86 12 108/68 100 10/14/18 00:00 36.4 C L 10/13/18 23:01 87 16 118/63 100 Laboratory Results Laboratory Results - last 24 hr 10/10/18 10/11/18 10/13/18 10:53 19:21 12:58 WBC RBC Hgb POC Hgb 7.5 L Hct POC Hct 22 L MCV MCH MCHC RDW Std Deviation RDW Coeff of Norbert Plt Count MPV Absolute Nucleated RBC Nucleated RBC % (auto) PT INR APTT PTT Ratio Sample Site R Brachial POC pH 7.40 POC pCO2 31 L POC pO2 56 L POC HCO3 19 POC Total CO2 20 L POC Base Excess -6.0 Ronaldo Test Pass O2 Delivery Device Other POC Sodium 135 Sodium POC Potassium 4.4 Potassium Chloride Carbon Dioxide Anion Gap BUN Creatinine Est Cr Clr Drug Dosing Est GFR ( Amer) Est GFR (Non-Af Amer) BUN/Creatinine Ratio Glucose POC Glucose 131 H Calcium Phosphorus Albumin Crossmatch See Detail 10/13/18 10/13/18 10/13/18 16:23 20:35 23:59 WBC RBC Hgb POC Hgb Hct POC Hct MCV MCH MCHC RDW Std Deviation RDW Coeff of Norbert Plt Count MPV Absolute Nucleated RBC Nucleated RBC % (auto) PT INR APTT PTT Ratio Sample Site POC pH POC pCO2 POC pO2 POC HCO3 POC Total CO2 POC Base Excess Ronaldo Test O2 Delivery Device POC Sodium Sodium POC Potassium Potassium Chloride Carbon Dioxide Anion Gap BUN Creatinine Est Cr Clr Drug Dosing Est GFR ( Amer) Est GFR (Non-Af Amer) BUN/Creatinine Ratio Glucose POC Glucose 136 H 117 H 88 Calcium Phosphorus Albumin Crossmatch 10/14/18 10/14/18 10/14/18 03:53 04:40 04:40 WBC 9.34 RBC 2.99 L Hgb 8.7 L POC Hgb Hct 26.5 L POC Hct MCV 88.6 MCH 29.1 MCHC 32.8 RDW Std Deviation 51.8 H RDW Coeff of Norbert 16.4 H Plt Count 166 MPV 9.7 Absolute Nucleated RBC 0.08 H Nucleated RBC % (auto) 0.9 PT 11.3 INR 1.1 APTT 32.3 H PTT Ratio 1.2 Sample Site POC pH POC pCO2 POC pO2 POC HCO3 POC Total CO2 POC Base Excess Ronaldo Test O2 Delivery Device POC Sodium Sodium POC Potassium Potassium Chloride Carbon Dioxide Anion Gap BUN Creatinine Est Cr Clr Drug Dosing Est GFR ( Amer) Est GFR (Non-Af Amer) BUN/Creatinine Ratio Glucose POC Glucose 84 Calcium Phosphorus Albumin Crossmatch 10/14/18 10/14/18 04:40 08:10 WBC RBC Hgb POC Hgb Hct POC Hct MCV MCH MCHC RDW Std Deviation RDW Coeff of Norbert Plt Count MPV Absolute Nucleated RBC Nucleated RBC % (auto) PT INR APTT PTT Ratio Sample Site POC pH POC pCO2 POC pO2 POC HCO3 POC Total CO2 POC Base Excess Ronaldo Test O2 Delivery Device POC Sodium Sodium 133 L POC Potassium Potassium 4.1 Chloride 104 Carbon Dioxide 22 Anion Gap 7.0 BUN 42 H Creatinine 2.81 H Est Cr Clr Drug Dosing 30.5 Est GFR ( Amer) 26.1 Est GFR (Non-Af Amer) 22.5 BUN/Creatinine Ratio 15.0 Glucose 80 POC Glucose 84 Calcium 8.0 L Phosphorus 3.8 Albumin 2.0 L Crossmatch
[2018-10-14] MEDS ORDERED: FUROSEMIDE 80 MG in SYRINGE 0 ML IV ONE (09:30)
--- NOTE | 2018-10-14 11:30 | Critical Care Progress Note ---
Date of Service October 14, 2018 Assessment & Plan (1) Admitted to intensive care unit: Reason Critically Ill: 67 y/o male with a PMHx of CHF, CAD, HTM , hyperlipidemia, DM, ANTONIO who initially presented for altered mental status and had recent paraspinal abscess and back pain tx with spinal fusion. He was admitted to the ICU in the post-op period due to hypotension. Neuro - [facility] ICU: NEGATIVE Pain control with fentanyl transdermal Cardiac - CAD s/p CABG 2002. Repeat cath 07/2018 without PCI, rec continued medical therapy - Repeat echo EF 20-25% with apical dyskinesis Symptomatic Bradycardia - Hypotensive. AICD placed 2011, pacer minimal rate increased from 40 to 80. May consider revision of hardware in the future with atrial lead and possibly a left ventricular lead per cards. - Unclear cause for HB. Lyme titer drawn. -Norepinephrine pressure support weaned greater than 24 hours, maintaining adequate pressures. - Atorvastatin Statin held for dapto and CPK elevation Respiratory - Acute Hypoxic Respiratory Failure - SPO2NC 2L/min Obstructive sleep apnea - Last seen by pulmonary in June - CPAP qHS at home settings (23/01 per last note) GI - - Minced and Moist diet, Diabetic diet - Hemoccult positive gastric contents - Constipation: He had a bowel movement this morning and last night RENAL/LYTES - PAULA with CKD - Nonoliguric. 0.53 cc/kg/h U OP today, total in 822 total output 1436 cc -Creatinine downtrending from 3.03-2.81 today - Replace lytes as needed. 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 Enterobacter cloacae (imipenem I susceptibility) and C. albicans on repeat lower back cultures - Dapto 400mg Q48H - Caspofungin 50mg daily - Ceftriaxone 2g daily - 6 weeks IV Abx per ID INTEGUMENTARY - Paraspinal Abscess - Wound care per surgery - Abx as above LINES/IV ACCESS - PIVs intact. DVT PROPHYLAXIS - SCDs, Chemical prophylaxis contraindicated secondary to continued ongoing losses from surgical wound. Resumption of platelet therapy per orthopedic recommendations Thank you for allowing us to be part of this patient's care. Please refer to Dr. Teran's documentation for any further recommendations. Supervising Physician Co-Signing Physician Notes Neuro: Chronic pain: fentanyl patch - Continue current dosing regimen CV- Ischemic cardiomyopathy Coronary artery disease status post CABG 2002: Cardiac cath July 2018 encouraged medical management AICD 2011 with Back-up rate set an 80(Not dual-chamber) - Consideration given to dual-chamber pacemaker placement: Contraindication infected hardware Elevated troponins: Improving Holding statin secondary to daptomycin and elevated CPK Holding aspirin and Plavix secondary to acute blood loss anemia, Thrombocytopenia, will readdress with surgery Pulmonary- Obstructive sleep apnea: Home BiPAP prescription 23/01 will require wear when sleeping and napping Acute hypoxic respiratory failure: Improving History reported of difficult intubation -Patient reports he did not wear bipap last night, order is in order set for appropriate wear ID- paraspinal abscess on daptomycin: For staph coagulase-negative on previous culture. - culture from surgery with enterobacter and rajendra. ceftriaxone and capsofungin - Adjusting Dapto otherwise medications dosed for GFR less than 30 Renal- Anasarca: New oxygen requirement likely secondary to volume overload: Mildly improved Chronic urinary retention: acute renal failure cr improving -Discussed with dialysis will give additional diuretics GI-completed video swallow study, continue mainstem moist diet Hemoccult positive gastric contents Constipation: Improved had bowel movement yesterday evening Heme- Acute blood loss anemia: Surgical - Transfuse for hgb >7 - Will consider running higher hemoglobin level given possible demand ischemia/known coronary artery disease not amenable to therapeutic interventions at this time. - DOMINGA drain continuing to put out Serosanguineous fluids - Recheck coagulation profile tomorrow morning DVT prophylaxis:SCDs, Chemical prophylaxis contraindicated secondary to continued ongoing losses from surgical wound Endocrine- - Levemir at home dosing Vascular access: Right PICC 08/26 For long-term antibiotic administration Chronic indwelling Rojas PT OT: Ordered full assist CODE STATUS:Full code Disposition: Able to be downgraded to telemetry status. Dr. Osbrone was resident physician during care of patient. I separately evaluated patient for husain portions of the history and the exam. I was present during the critical portion of medical decision making, and I discussed the case with the resident. I generally agree with the findings and plan. Subjective Mr. Cooper feels okay today. He denies any symptoms. He does not have any questions at time of visit. Endorses some continued back pain unchanged from yesterday. Denies chest pain, shortness of breath, lightheadedness, dizziness. Review of Systems Review of Systems: Constitutional: Denies fever, chills. Endorses fatigue, leg weakness. Eyes: Denies double vision, vision change Cardiovascular: Denies Chest pain, chest pressure, palpitations. Endorses hand/leg swelling. Respiratory: Denies shortness of breath, sputum production, difficulty breathing this morning. Endorses dry intermittent cough. Gastrointestinal: Endorses abdominal fullness/mild discomfort. Denies nausea this morning. Genitourinary: Denies pain with urination Musculoskeletal: Endorses diffuse weakness/fatigue and leg weakness. Denies other muscle aches/pain. Endorses back pain unchanged. Integumentary:Denies new rash, lesions Neurological: Denies headache Physical Exam Physical Exam: General: A&Ox3. NAD. Cooperative. Answers questions appropriately. HEENT: Atraumatic, normocephalic. Pulm: CTAB A&P. -wheezes, -rales, -rhonchi. Symmetrical chest rise. No increase work of breathing. No respiratory distress. Cardiac: RRR, -mrg. Radial pulses intact and symmetrical. Abdominal: Obese, softly distended. Extremity: 3+ pitting edema through the knee bilaterally. 2-3+ edema of the hands bilaterally. Cap refill ~2 seconds. Results & Data Vital Signs (Past 12 Hours) Vital Signs Temp Pulse Resp BP Pulse Ox 10/14/18 04:05 36.5 C 10/14/18 04:01 84 13 107/70 100 10/14/18 03:01 87 13 103/77 99 10/14/18 02:01 82 10 L 107/67 100 10/14/18 01:05 90 18 98 10/14/18 01:01 86 23 109/66 100 10/14/18 00:01 86 12 108/68 100 10/14/18 00:00 36.4 C L 10/13/18 23:01 87 16 118/63 100 10/13/18 19:01 90 18 128/74 93 10/13/18 19:00 91 H 19 92 Resident Activity Tracking Resident Involvement: Resident Care Provided Care Provided: Adult Hospital Medicine
--- NOTE | 2018-10-14 11:33 | Fluoroscopy Report ---
VIDEO SWALLOW STUDY CLINICAL HISTORY: Aspiration. COMPARISON STUDY: No priors. Fluoroscopy time: 2.9 minutes. FINDINGS: Fluoroscopic guidance is provided to the Department of Speech Pathology in performing a vid eo swallow study. The patient consumed barium-impregnated pudding, cracker with paste, nectar thick l iquid, and thin barium while the swallowing mechanism was observed in real-time. No penetration or as piration was seen with any of the sampled textures. Fusion hardware is noted in the cervical spine. IMPRESSION: No penetration or aspiration was seen with any of the sampled textures. See dedicated spe ech pathology report for detailed findings and recommendations. Electronically signed by: Vinicius Almaraz M.D. 10/14/2018 11:31 AM
--- NOTE | 2018-10-14 13:48 | Pharmacy Report ---
Pharmacy Glycemic Short Note 2 - Date of Service October 14, 2018 - Glycemic Short BSG Results (Last 24 hours): 10/13/18 10/13/18 10/13/18 16:23 20:35 23:59 Glucose POC Glucose 136 H 117 H 88 10/14/18 10/14/18 10/14/18 03:53 04:40 08:10 Glucose 80 POC Glucose 84 84 10/14/18 11:35 Glucose POC Glucose 109 H OUTPATIENT ANTIDIABETIC REGIMEN: * Levemir 7 units BID * Novolog 10 units TID w/ meals + SSI * Metformin 1gm PO BID * A1c = 6.3% 07-27-18 ASSESSMENT: 10/14: * BSGs well controlled yesterday, NPO, received 0 units of insulin * Patient passed swallow eval and recommendations for minced moist diet * Patient received 0 units of insulin yesterday, anticipate needs to increase with diet order * Lantus held again this morning per scale with fasting BSG of 84- will loosen scale for PM * Continue current carb/correction * Patient to be transferred out of unit 10/13 * BSGs with better control yesterday, patient was made NPO for swallow issues until speech eval * Slightly adjusted lantus scale, patient NPO and did not receive per sliding scale BSG * Continue current novolog orders 10/12 * BSGs were well controlled throughout the day yesterday, however last evening BSGs did rise into the 200's * Last evening pt became bradycardic requiring atropine, dopamine and norepinephrine infusions for inotropic and pressor support * Troponin on the rise as well * Acute stressors did likely lead to climbing BSGs * Both dopamine and norepi weaned off this AM and VSS * Will increase Lantus dose on the BID scale only slightly at this time now that pressors off. Will provide more correctional insulin as well in the short term. His PAULA has worsening increasing the risk for insulin accumulation and hypoglycemia as well. 10/11 * BSGs remained elevated the rest of the day yesterday, however are down to goal this AM * Fasting BSG 154-158 this AM w/ 10 units Levemir on board and after receiving 3 units of Novolog correction overnight. * Will continue with current orders at this time and follow BSG pattern * Pt remains very drowsy this AM, and nausea continues 10/10 * Type 2 diabetic identified with sustained hyperglycemia (BSGs > 180) in the ICU (1east) * Pt appears to have received dexamethasone IV in the OR * Patient had been tolerating Levemir 5 units BID this admission without hypoglycemia however is currently on hold * Novolog doses are appropriate starting points, although he could benefit from slightly higher doses in the short term given current stressors * Tight glycemic control in the post-op setting has been shown to prevent surgical site infxn PLAN FOR INPATIENT GLYCEMIC CONTROL: * Hold outpatient oral diabetes medications (metformin) * Basal insulin (dose increase) * Levemir SQ BID per the following scale: * 0 units if less than 160 * 5 units if 160 or greater * Bolus insulin (dose increase) * NovoLog per scale Q 4 hrs initially until BSGs at goal consistently * Goal Range: Low 120 mg/dL - High 150 mg/dL * Correction Factor: 20 mg/dL/unit * Nutritional / Prandial insulin per carb ratio of 1 unit per 7 grams CHO consumed PLAN FOR DISCHARGE: * to be determined
--- NOTE | 2018-10-14 14:30 | Infectious Disease Progress Nt ---
Date of Service October 14, 2018 Assessment & Plan (1) Paraspinal abscess: continue current abx and caspo, will likely need 6 weeks IV abx post OR. will need weekly cbc,cmp, esr, cpk while on abx. can follow with ID post d/c. Subjective pt tolerating abx. wbc 9.3, creat 2.8. Remains in ICU. Remains afebrile. Results & Data Vital Signs (Past 12 Hours) Vital Signs Temp Pulse Resp BP Pulse Ox 10/14/18 09:01 84 13 117/69 96 10/14/18 09:00 85 16 10/14/18 08:01 36.5 C 84 14 113/72 100 10/14/18 08:00 84 13 100 10/14/18 07:01 85 12 119/72 100 10/14/18 07:00 85 9 L 100 10/14/18 06:01 84 8 L 98/59 L 100 10/14/18 05:01 85 10 L 122/74 100 10/14/18 04:05 36.5 C 10/14/18 04:01 84 13 107/70 100 10/14/18 03:01 87 13 103/77 99 Laboratory Results Microbiology 10/09/18 10:02 Back,Lower Gram Stain - Final 10/09/18 10:02 Back,Lower Aerobic and Anaerobic Culture - Final Enterobacter cloacae Tiffany albicans 10/07/18 01:00 Urine,Straight Cath Urine Culture - Final No growth - less than 1,000 colonies/mL. 09/27/18 12:05 Blood Blood Culture - Final No growth 09/27/18 11:55 Blood Blood Culture - Final No growth 09/27/18 Unknown Urine,Straight Cath Urine Culture - Final Tiffany albicans
[2018-10-14] MEDS ORDERED: DAPTOmycin 400 MG in SYRINGE 0 ML IV SCH (16:00)
[2018-10-14] MEDS: TAMSULOSIN HCL 0.4 MG CAP PO SCH (20:53)
--- NOTE | 2018-10-14 22:25 | Hospitalist Progress Note ---
Date of Service October 14, 2018 Assessment & Plan (1) Third degree AV block: 10/11 - Mr. Cooper became bradycardic in a complete block and required pressor. His ICD was subsequently turned up to 80 from 40. His troponin reached 33. Per cardiology may be ischemia from the bradycardia or may be cardiac event, however given his current condition will not take him for cath. Pressors were stopped on 10/13. Will transfer patient out of ICU as it has been greater than 24 hours. (2) Paraspinal abscess: had surgery on 09/10/18, changed Zyvox to daptomycin due to thrombocytopenia Lumbar CT 09/30 showing L2-L3 and L3-L4 discitis osteolytis - post op 10/09 -continues to require ICU for pressor support - wound care per surgery - Epidural culture from surgery growing enterobacter and rajendra - will continue ceftriaxone and caspofungin (10/14)- ID aware Needs 6 weeks of antibiotics post op. (3) Acute kidney injury: PAULA on CKD. The patient's creatinine had been improving but began increasing after this most recent surgery and is now back up to 2.5 - nephrology consulted - may be ATN due to hypotension which will take some time to recover - continue serial prps -Creatinine improved today to 2.8 (4) Thrombocytopenia: Platelets had dropped to 55,000 from 250,000 on admission but appear to be rebounding. Heparin antibodies were negative. Zyvox adverse effect includes thrombocytopenia. Discussed with ID changed to daptomycin CPK elevated at 700 on 10/11 so will hold statin. (5) Altered mental status: resolved metabolic encephalopathy due to PAULA on CKD, chronic pain, chronic infection, and on narcotics (6) Coagulase-negative staphylococcal infection: Wound culture 09/10 Daptomycin as above was on Vanco but stopped due to PAULA ng f/u Dr. Ndiaye for further instructions (7) Post-operative pain: Continue narcotic therapy for chronic pain management. Appreciate orthopedic consultation and management of the infection. Fentanyl dosage increased 10/04 to 25 mcg patch every 3 days (8) Chronic systolic heart failure: Currently fluid overloaded. IVF dc'd Last echo 07/2018 - ejection fraction of 30-35% Echo repeated given elevated troponin and pending Per cardiology - patient should be diuresed as soon as possible though he does not appear to be in left heart failure Currently receiving IV lasix. (9) Urinary retention: continue luna, changed 09/29 for funguria (10) Acute anemia: Given a total of 8u PRBCs this admission. (11) Ischemic cardiomyopathy: Continue current medical management - ASA restarted, will need to restart plavix once platelets begin to rebound and bleeding risk has improved. will hold for now. (12) ICD (implantable cardioverter-defibrillator) in place: Stable (13) Diabetes mellitus, type 2: diabetic diet Novolog, lant (14) Acute UTI (urinary tract infection): Fungal elements isolated. Intravenous caspofungin through October 05. Repeat UC - no fungal growth (15) DVT prophylaxis: heparin subq held for low platelets, SCDs - platelets are improving, if patient can keep his hgb stable should restart heparin subq but will hold given bleeding risk and requirement of multiple units PRBCs Spent 25 minutes in management of patient. This included chart review. Transferred to [facility] from ICU. Subjective Patient currently has no new complaints. D/W nurse has been off pressors for over 24 hours. He continues to have back pain but it is controlled. Review of Systems Review of Systems: All systems reviewed & are unremarkable except as noted in HPI & below Physical Exam Physical Exam: General: no distress, off pressors. Eyes: normal inspection, PERLL Respiratory: chest non tender, clear to auscultation, normal breath sounds, no respiratory distress, no accessory muscle use Cardiac: regular rate and rhythm, no rub or gallop, no murmur, no edema, no jvd GI/: active bowel sounds, no abd pain or tenderness, soft, non distended Extremities: normal range of motion, normal strength, non tender Neuro/Psych: alert and oriented x 3, normal mood and affect Skin: dry Results & Data Vital Signs (Past 12 Hours) Vital Signs Temp Pulse Pulse Pulse Resp BP Pulse Ox 10/14/18 19:44 36.7 C 87 20 105/47 L 96 10/14/18 15:42 84 10/14/18 15:08 36.3 C L 89 19 120/70 98 10/14/18 14:27 36.4 C L 86 18 119/73 96
[2018-10-15] MEDS: INSULIN ASPART 100 UNITS/ML 3 ML PEN SC SCH ×6 (00:36→21:01)
[2018-10-15] MEDS: CHECK FENTANYL PATCH PLACEMENT SCH ×3 (00:36→17:29)
[2018-10-15] MEDS: POLYETHYLENE (MIRALAX) 17 GM PACK PO SCH ×3 (05:24→17:29)
[2018-10-15 06:28] LABS: Albumin Level 1.9 gm/dl (3.4-5.0); BUN Creatinine Ratio 17.6 (10-20); Est GFR (African American) 32.9; Est GFR (Non-African American) 28.4; Phosphorus 3.3 mg/dl (2.5-4.9); Potassium 3.9 mmol/L (3.5-5.1)
[2018-10-15] MEDS: ONDANSETRON INJ 2 MG/ML 2 ML VIAL IV PRN (07:47)
[2018-10-15] MEDS: cefTRIAXone SODIUM 2,000 MG in DEXTROSE 5% 50 ML IV SCH (08:02)
[2018-10-15] MEDS: FINASTERIDE 5 MG TAB PO SCH (08:09)
[2018-10-15] MEDS: CHOLECALCIFEROL 1,000 UNITS TAB PO SCH (08:09)
[2018-10-15] MEDS: CYANOCOBALAMIN 500 MCG TABLET (VITAMIN B-12) PO SCH (08:09)
[2018-10-15] MEDS: INSULIN DETEMIR FLEXPEN/FLEX TOUCH 100 UNITS/ML 3ML SQ SCH ×2 (08:29→21:00)
[2018-10-15] MEDS: CASPOFUNGIN 50 MG in SODIUM CHLORIDE 0.9% 250 ML IV SCH (08:49)
[2018-10-15] MEDS: fentaNYL 25 MCG/HR TDSY TD SCH (08:51)
[2018-10-15] MEDS: MAGNESIUM OXIDE 400 MG TAB PO SCH (08:52)
--- NOTE | 2018-10-15 10:14 | Infectious Disease Progress Nt ---
Date of Service October 15, 2018 Assessment & Plan (1) Paraspinal abscess: continue current abx and caspo, will likely need 6 weeks IV abx post OR. will need weekly cbc,cmp, esr, cpk while on abx. can follow with ID post d/c. Subjective pt seen in followup, transferred from ICU. poor appetite, nausea, denies vomiting. no f/c, no abd pain. back pain improved. tolerating abx. remains on caspo, ctx, dapto. No new micro. creat stable, no cbc today. no sob, cough, rodriguez, cp. all remaining ros reviewed and are negative. Review of Systems Review of Systems: All systems reviewed & are unremarkable except as noted in HPI & below Physical Exam Constitutional: WD/WN, vitals as above Eyes: PERRL, conjunctivae normal, anicteric sclerae ENMT: external ear and nose normal, oropharynx normal Neck: normal visual inspection Respiratory: normal respiratory effort, lungs clear to auscultation Cardiovascular: RRR, no murmur, no edema Gastrointestinal (Abdomen): normal bowel sounds, soft, nontender, no hepatosplenomegaly Musculoskeletal: no cyanosis or clubbing, extremities motor strength 5/5 Skin: no rashes, warm and dry Psychiatric: A+Ox3, euthymic affect Results & Data Vital Signs (Past 12 Hours) Vital Signs Temp Pulse Pulse Resp BP Pulse Ox 10/15/18 08:00 93 H 10/15/18 07:03 36.5 C 93 H 18 122/71 95 10/15/18 04:43 36.7 C 91 H 17 122/71 95 10/15/18 00:00 91 H 10/14/18 23:50 36.5 C 94 H 18 110/62 93 Laboratory Results Microbiology 10/09/18 10:02 Back,Lower Gram Stain - Final 10/09/18 10:02 Back,Lower Aerobic and Anaerobic Culture - Final Enterobacter cloacae Tiffany albicans 10/07/18 01:00 Urine,Straight Cath Urine Culture - Final No growth - less than 1,000 colonies/mL. 09/27/18 12:05 Blood Blood Culture - Final No growth 09/27/18 11:55 Blood Blood Culture - Final No growth 09/27/18 Unknown Urine,Straight Cath Urine Culture - Final Tiffany albicans
--- NOTE | 2018-10-15 10:21 | Nephrology Progress Note ---
Date of Service October 15, 2018 Assessment & Plan (1) Acute kidney injury: -- Non-oliguric -- Clinically consistent with ATN -- Creatinine improving -- Metabolic profile otherwise acceptable -- Additional furosemide 80 mg IV this AM, repeat as needed to encourage net negative fluid balance -- Document I/O's -- Repeat metabolic profile tomorrow AM -- Medications are appropriately dosed for kidney function (2) Chronic indwelling Rojas catheter: -- Rojas catheter changed out due to funguria 09/29 -- Patient is now on Caspofungin therapy as per ID Subjective No acute events overnight. Leandro was resting comfortably in bed. He denies fevers or chills. He denies dyspnea. Edema slightly improved. No pain. Review of Systems Review of Systems: All systems reviewed & are unremarkable except as noted in HPI & below Physical Exam Constitutional: + obese and + edematous; no acute distress Eyes: no scleral abnormality and no corneal abnormality ENMT: Mouth: no oral mucosal abnormality and oral mucous membranes not dry Neck: normal visual inspection and trachea midline Respiratory: normal respiratory effort; no respiratory distress Auscultation: + rales Cardiovascular: Rate/Rhythm: regular rate Heart Sounds: normal S1 and normal S2 Extremities: + edema Gastrointestinal (Abdomen): Inspection/Auscultation: + abdomen distended Percussion/Palpation: abdomen soft; abdomen nontender Musculoskeletal: Extremities: no cyanosis and no clubbing Skin: normal turgor; no rashes Neurologic: Motor/Sensory: no tremor and no asterixis Psychiatric: Orientation: alert Eye Contact: good eye contact Results & Data Vital Signs (Past 12 Hours) Vital Signs Temp Pulse Pulse Resp BP Pulse Ox 10/15/18 08:00 93 H 10/15/18 07:03 36.5 C 93 H 18 122/71 95 10/15/18 04:43 36.7 C 91 H 17 122/71 95 10/15/18 00:00 91 H 10/14/18 23:50 36.5 C 94 H 18 110/62 93 Laboratory Results Laboratory Results - last 24 hr 10/14/18 10/14/18 10/14/18 11:35 16:23 20:27 Sodium Potassium Chloride Carbon Dioxide Anion Gap BUN Creatinine Est Cr Clr Drug Dosing Est GFR ( Amer) Est GFR (Non-Af Amer) BUN/Creatinine Ratio Glucose POC Glucose 109 H 111 H 121 H Calcium Phosphorus Albumin 10/15/18 10/15/18 10/15/18 00:33 04:41 05:17 Sodium 134 L Potassium 3.9 Chloride 104 Carbon Dioxide 23 Anion Gap 7.0 BUN 41 H Creatinine 2.32 H D Est Cr Clr Drug Dosing 37.0 Est GFR ( Amer) 32.9 Est GFR (Non-Af Amer) 28.4 BUN/Creatinine Ratio 17.6 Glucose 96 POC Glucose 146 H 109 H Calcium 8.0 L Phosphorus 3.3 Albumin 1.9 L 10/15/18 07:31 Sodium Potassium Chloride Carbon Dioxide Anion Gap BUN Creatinine Est Cr Clr Drug Dosing Est GFR ( Amer) Est GFR (Non-Af Amer) BUN/Creatinine Ratio Glucose POC Glucose 108 H Calcium Phosphorus Albumin
[2018-10-15] MEDS ORDERED: FUROSEMIDE 80 MG in SYRINGE 0 ML IV ONE (11:00)
--- NOTE | 2018-10-15 12:33 | Orthopedic Progress Note ---
Date of Service October 15, 2018 Assessment & Plan (1) Leg weakness, bilateral: At this time we will maintain the DOMINGA drain at least for another 24 to 48 hours. I would continue to encourage transfers from bed to chair as tolerated. Present on Admission?: Yes Subjective Patient states his back pain is controlled today. Denies any leg pain. Physical Exam Physical Exam: On exam he is sitting up in bed. He is much more alert today he is oriented today. Neurologic status to lower extremities essentially unch anged. Results & Data Vital Signs (Past 12 Hours) Vital Signs Temp Pulse Pulse Resp BP Pulse Ox 10/15/18 11:23 36.8 C 88 16 135/75 95 10/15/18 11:17 36.3 C L 91 H 14 135/75 95 10/15/18 08:00 93 H 10/15/18 07:03 36.5 C 93 H 18 122/71 95 10/15/18 04:43 36.7 C 91 H 17 122/71 95
--- NOTE | 2018-10-15 13:33 | Cardiology Progress Note ---
Date of Service October 15, 2018 Assessment & Plan (1) Coronary artery disease: The patient has an extensive cardiac history. Cardiac catheterization performed in July 2018 noted a patent DELATORRE and FERNANDO along with significant [place] coronary disease. However, none nothing was amenable to intervention at that time and medical care was recommended. The patient has done well since that time without episodes of angina pectoris, he was having what is described as "heartburn" which could be angina. During his hospitalization, including after his events last night, he has continued to deny chest discomfort or heartburn. He developed heart block (which could be due to ischemia although no t necessarily since he has underlying conduction disease) with bradycardia and is troponin mann to 30, with a subsequent measurement of 33. He certainly has reason to have ischemia given his anemia, use of Levophed, hypotension and stress. Although he could have had a cardiac event I think it is conceivable that this is demand ischemia even with that high of a troponin measurement. I do not think we can consider invasive evaluation under the circumstances, including his recent back surgery and blood loss. (2) Ischemic cardiomyopathy: Left ventricular systolic function was moderately reduced with an ejection fraction of 30-35% on an echocardiogram performed in July 2018. On October 12, 2018 his echocardiogram showed an ejection fraction of 20 to 25%. This decrease could just be due to stunning from his difficult postoperative course. I would plan on repeating it as a limited echo prior to discharge to reassess his left ventricular function. (3) Chronic systolic (congestive) heart failure: Clinically he had done well with his heart failure prior to surgery. Now he has evidence of ongoing fluid overload, however that appears to be iatrogenic from blood and volume to treat his hypotension and anemia. He does not seem to have gone into significant left heart failure despite a reduction in ejection fraction. I do not think the fluid retention reflects worsening of his cardiac function. We need to continue to diuresis more if his blood pressure will allow it. Today his weight is slightly down and his output is slightly more than his intake, his creatinine is improved and hopefully he will rapidly lose this excess fluid. Based on weights he probably has about 10 kg of excess fluid at this point. (4) ICD (implantable cardioverter-defibrillator) in place: The patient had a single-chamber ICD placed after an episode of sudden cardiac in October 2011. His device has been functioning properly and was checked on May 12, 2018, as well as during last night of October 11, 2018 with reprogramming of the ventricular rate. He regained intrinsic AV conduction several days later and has not had evidence of heart block over the last several days. I therefore decreased his pacing rate to 60 bpm today, it should be obvious on telemetry if he has further AV block. I would prefer not to pace if we do not need to. (5) Third degree AV block: He developed complete heart block a little before 1900 on October 11, 2018, the cause was not clear but he does have underlying conduction disease and he was tachycardic. It has resolved as of October 13, 2018. It could have been due to ischemia. His ICD had originally been programmed to a fixed rate of 40 bpm since it was a single-chamber device and that is the standard, if he requires long-term pacing we may have to consider upgrading his device, even adding an atrial lead and possibly a left ventricular lead. I certainly would not make that decision now, he has regained conduction, through device monitoring we can determine how often he requires ventricular pacing in the future. As of this morning I reprogrammed the device to 60 bpm. Subjective He seems to be doing a little bit better, he is complaining of some leg pain but he is not very specific about it. Not much back pain. No shortness of breath or chest discomfort. Physical Exam Physical Exam: Constitutional: Alert, cooperative and in no distress. Pulmonary: Clear to auscultation bilaterally. Cardiac: Regular rhythm with no murmur, gallop or rub. Abdomen: Soft, nontender with normal bowel sounds. Extremities: +3 bilateral pretibial edema, +2 edema of arms and hands. Skin: No rash, ecchymoses or petechiae. Results & Data Vital Signs (Past 12 Hours) Vital Signs Temp Pulse Pulse Resp BP Pulse Ox 10/15/18 11:23 36.8 C 88 16 135/75 95 10/15/18 11:17 36.3 C L 91 H 14 135/75 95 10/15/18 08:00 93 H 10/15/18 07:03 36.5 C 93 H 18 122/71 95 10/15/18 04:43 36.7 C 91 H 17 122/71 95 Diagnostic Findings Telemetry: Atrial sensing with intact conduction, no significant pacing over the last 24 hours. ICD evaluation: Heart rate turned down to 60 bpm (VVI with a single-chamber device). If he has a lot of pacing at 60 bpm we may have to increase the rate but it would be preferable not to pace if possible.
--- NOTE | 2018-10-15 13:49 | Pharmacy Report ---
Pharmacy Glycemic Short Note 2 - Date of Service October 15, 2018 - Glycemic Short BSG Results (Last 24 hours): 10/14/18 10/14/18 10/15/18 16:23 20:27 00:33 Glucose POC Glucose 111 H 121 H 146 H 10/15/18 10/15/18 10/15/18 04:41 05:17 07:31 Glucose 96 POC Glucose 109 H 108 H 10/15/18 11:31 Glucose POC Glucose 120 H OUTPATIENT ANTIDIABETIC REGIMEN: * Levemir 7 units BID * Novolog 10 units TID w/ meals + SSI * Metformin 1gm PO BID * A1c = 6.3% 07-27-18 ASSESSMENT: 5/: * BSGs continue to be well controlled, patient has had 0 units of insulin in last 48 hours * Diet ordered today, will continue current parameters/lanuts * Will continue to follow with diet changes for now 10/14: * BSGs well controlled yesterday, NPO, received 0 units of insulin * Patient passed swallow eval and recommendations for minced moist diet * Patient received 0 units of insulin yesterday, anticipate needs to increase with diet order * Lantus held again this morning per scale with fasting BSG of 84- will loosen scale for PM * Continue current carb/correction * Patient to be transferred out of unit 10/13 * BSGs with better control yesterday, patient was made NPO for swallow issues until speech eval * Slightly adjusted lantus scale, patient NPO and did not receive per sliding scale BSG * Continue current novolog orders 10/12 * BSGs were well controlled throughout the day yesterday, however last evening BSGs did rise into the 200's * Last evening pt became bradycardic requiring atropine, dopamine and norepinephrine infusions for inotropic and pressor support * Troponin on the rise as well * Acute stressors did likely lead to climbing BSGs * Both dopamine and norepi weaned off this AM and VSS * Will increase Lantus dose on the BID scale only slightly at this time now that pressors off. Will provide more correctional insulin as well in the short term. His PAULA has worsening increasing the risk for insulin accumulation and hypoglycemia as well. 10/11 * BSGs remained elevated the rest of the day yesterday, however are down to goal this AM * Fasting BSG 154-158 this AM w/ 10 units Levemir on board and after receiving 3 units of Novolog correction overnight. * Will continue with current orders at this time and follow BSG pattern * Pt remains very drowsy this AM, and nausea continues 5/3 * Type 2 diabetic identified with sustained hyperglycemia (BSGs > 180) in the ICU (1east) * Pt appears to have received dexamethasone IV in the OR * Patient had been tolerating Levemir 5 units BID this admission without hypoglycemia however is currently on hold * Novolog doses are appropriate starting points, although he could benefit from slightly higher doses in the short term given current stressors * Tight glycemic control in the post-op setting has been shown to prevent surgical site infxn PLAN FOR INPATIENT GLYCEMIC CONTROL: * Hold outpatient oral diabetes medications (metformin) * Basal insulin (dose increase) * Levemir SQ BID per the following scale: * 0 units if less than 150 * 5 units if 150 or greater * Bolus insulin (dose increase) * NovoLog per scale Q 4 hrs initially until BSGs at goal consistently * Goal Range: Low 120 mg/dL - High 150 mg/dL * Correction Factor: 20 mg/dL/unit * Nutritional / Prandial insulin per carb ratio of 1 unit per 7 grams CHO consumed PLAN FOR DISCHARGE: * to be determined
[2018-10-15] MEDS: ACETAMINOPHEN 500 MG TAB PO PRN (15:08)
[2018-10-15] MEDS: DAPTOmycin 400 MG in SYRINGE 0 ML IV SCH (17:51)
[2018-10-15] MEDS: TAMSULOSIN HCL 0.4 MG CAP PO SCH (20:55)
--- NOTE | 2018-10-15 23:10 | Hospitalist Progress Note ---
Date of Service October 15, 2018 Assessment & Plan (1) Third degree AV block: 10/11 - Mr. Cooper became bradycardic in a complete block and required pressor. His ICD was subsequently turned up to 80 from 40. His troponin reached 33. Per cardiology may be ischemia from the bradycardia or may be cardiac event, however given his current condition will not take him for cath. Pressors were stopped on 10/13. 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 (3) Acute kidney injury: PAULA on CKD. The patient's creatinine had been improving but began increasing after this most recent surgery and is now back up to 2.5 - nephrology consulted - may be ATN due to hypotension which will take some time to recover - continue serial prps -Creatinine improved to 2.3 (4) Thrombocytopenia: Platelets had dropped to 55,000 from 250,000 on admission but appear to be rebounding. Heparin antibodies were negative. Zyvox adverse effect includes thrombocytopenia. Discussed with ID changed to daptomycin CPK elevated at 700 on 10/11 so will hold statin. (5) Altered mental status: resolved metabolic encephalopathy due to PAULA on CKD, chronic pain, chronic infection, and on narcotics (6) Coagulase-negative staphylococcal infection: Wound culture 09/10 Daptomycin as above was on Vanco but stopped due to PAULA [facility] f/u Dr. Ndiaye for further instructions (7) Post-operative pain: Continue narcotic therapy for chronic pain management. Appreciate orthopedic consultation and management of the infection. Fentanyl patch fell off patient. will replace it. Will continue to monitor mental status. May consider holding if patient becomes confused. (8) Chronic systolic heart failure: Currently fluid overloaded. IVF dc'd Last echo 07/2018 - ejection fraction of 30-35% Echo repeated given elevated troponin and pending Per cardiology - patient should be diuresed as soon as possible though he does not appear to be in left heart failure On lasix 80 mg daily (9) Urinary retention: continue luna, changed 09/29 for funguria (10) Acute anemia: Given a total of 8u PRBCs this admission. (11) Ischemic cardiomyopathy: Continue current medical management - ASA restarted, will need to restart plavix once platelets begin to rebound and bleeding risk has improved; will vasilegian restart plavix in AM. (12) ICD (implantable cardioverter-defibrillator) in place: Stable (13) Diabetes mellitus, type 2: diabetic diet remedios [place] (14) Acute UTI (urinary tract infection): Fungal elements isolated. Intravenous caspofungin through October 05. Repeat UC - no fungal growth (15) DVT prophylaxis: heparin subq held for low platelets, SCDs - platelets are improving, if patient can keep his hgb stable should restart heparin subq but will hold given bleeding risk and requirement of multiple units PRBCs Spent 25 minutes in management of patient. This included chart review. Subjective Patient reports doing well. No new complaints. Review of Systems Review of Systems: All systems reviewed & are unremarkable except as noted in HPI & below Physical Exam Physical Exam: General: no distress, off pressors. Eyes: normal inspection, PERLL Respiratory: chest non tender, clear to auscultation, normal breath sounds, no respiratory distress, no accessory muscle use Cardiac: regular rate and rhythm, no rub or gallop, no murmur, no edema, no jvd GI/: active bowel sounds, no abd pain or tenderness, soft, non distended Extremities: normal range of motion, normal strength, non tender Neuro/Psych: alert and oriented x 3, normal mood and affect Skin: pedal edema noted. Results & Data Vital Signs (Past 12 Hours) Vital Signs Temp Pulse Pulse Resp BP Pulse Ox 10/15/18 23:01 36.5 C 84 22 118/65 95 10/15/18 21:35 89 18 97 10/15/18 19:37 36.8 C 88 18 106/60 97 10/15/18 16:00 90 10/15/18 15:15 36.5 C 91 H 18 112/62 94 10/15/18 11:23 36.8 C 88 16 135/75 95 10/15/18 11:17 36.3 C L 91 H 14 135/75 95
[2018-10-16] MEDS: CHECK FENTANYL PATCH PLACEMENT SCH ×3 (00:16→17:04)
[2018-10-16] MEDS: POLYETHYLENE (MIRALAX) 17 GM PACK PO SCH ×4 (00:16→18:04)
[2018-10-16] MEDS: OXYCODONE HCL IR 5 MG TAB (IMMEDIATE RELEASE) PO PRN (03:28)
[2018-10-16 06:51] LABS: BUN Creatinine Ratio 17.9 (10-20); Calcium 7.8 mg/dl (8.5-10.1); Creatinine Clr Calc Pharmacy 44.4 ml/min; Est GFR (African American) 40.9; Est GFR (Non-African American) 35.3; Potassium 3.4 mmol/L (3.5-5.1)
[2018-10-16] MEDS: ACETAMINOPHEN 500 MG TAB PO PRN (07:56)
--- NOTE | 2018-10-16 08:20 | Orthopedic Progress Note ---
Date of Service October 16, 2018 Assessment & Plan (1) Leg weakness, bilateral: This time we will continue with therapy as tolerated transfers to chair and sit up out of bed hopefully several times a day. This will steadily build up his strength. Present on Admission?: Yes Subjective Patient's back pain is controlled he was able to sit up yesterday. Physical Exam Physical Exam: Patient is back is clean dry and intact neurologically unchanged. Results & Data Vital Signs (Past 12 Hours) Vital Signs Temp Pulse Pulse Resp BP Pulse Ox 10/16/18 07:11 36.3 C L 82 19 112/61 94 10/16/18 03:48 36.3 C L 81 16 113/64 94 10/16/18 00:00 83 10/15/18 23:01 36.5 C 84 22 118/65 95 10/15/18 21:35 89 18 97
[2018-10-16] MEDS: FINASTERIDE 5 MG TAB PO SCH (08:26)
[2018-10-16] MEDS: CYANOCOBALAMIN 500 MCG TABLET (VITAMIN B-12) PO SCH (08:26)
[2018-10-16] MEDS: CHOLECALCIFEROL 1,000 UNITS TAB PO SCH (08:26)
[2018-10-16] MEDS: MAGNESIUM OXIDE 400 MG TAB PO SCH (08:26)
[2018-10-16] MEDS ORDERED: POTASSIUM CHLORIDE 20 MEQ TABCR PO SCH (09:00)
[2018-10-16] MEDS ORDERED: FUROSEMIDE 80 MG TAB PO SCH (09:00)
[2018-10-16] MEDS ORDERED: CLOPIDOGREL BISULFATE 75 MG TAB PO ONE (09:05)
--- NOTE | 2018-10-16 09:30 | Nephrology Progress Note ---
Date of Service October 16, 2018 Assessment & Plan (1) Acute kidney injury: -- Non-oliguric -- Clinically consistent with ATN -- Creatinine continues to improve -- Metabolic profile otherwise acceptable -- Furosemide 80 mg PO daily started this AM, repeat as needed to encourage net negative fluid balance -- Document I/O's -- Repeat metabolic profile tomorrow AM -- Medications are appropriately dosed for kidney function -- Daily KCl 20 mEq started this morning for hypokalemia (2) Chronic indwelling Rojas catheter: -- Patient is now on Caspofungin therapy as per ID Subjective No acute events overnight. Back pain improving. No fevers or chills. Breathing comfortably. Out of bed to chair yesterday. Leandro notes that his edema continues to improve. Review of Systems Review of Systems: All systems reviewed & are unremarkable except as noted in HPI & below Physical Exam Constitutional: + obese and + edematous; no acute distress Eyes: no scleral abnormality and no corneal abnormality ENMT: Mouth: no oral mucosal abnormality and oral mucous membranes not dry Neck: normal visual inspection and trachea midline Respiratory: normal respiratory effort; no respiratory distress Auscultation: + rales Cardiovascular: Rate/Rhythm: regular rate Heart Sounds: normal S1 and normal S2 Vessels: no JVD Extremities: + edema Gastrointestinal (Abdomen): Inspection/Auscultation: + abdomen distended Percussion/Palpation: abdomen soft; abdomen nontender Musculoskeletal: Extremities: no cyanosis and no clubbing Skin: normal turgor; no rashes Neurologic: Motor/Sensory: no tremor and no asterixis Psychiatric: Orientation: alert Eye Contact: good eye contact Results & Data Vital Signs (Past 12 Hours) Vital Signs Temp Pulse Pulse Resp BP Pulse Ox 10/16/18 07:11 36.3 C L 82 19 112/61 94 10/16/18 03:48 36.3 C L 81 16 113/64 94 10/16/18 00:00 83 10/15/18 23:01 36.5 C 84 22 118/65 95 10/15/18 21:35 89 18 97 Laboratory Results Laboratory Results - last 24 hr 10/15/18 10/15/18 10/15/18 11:31 16:26 20:10 Sodium Potassium Chloride Carbon Dioxide Anion Gap BUN Creatinine Est Cr Clr Drug Dosing Est GFR ( Amer) Est GFR (Non-Af Amer) BUN/Creatinine Ratio Glucose POC Glucose 120 H 157 H 193 H Calcium Phosphorus Albumin 10/16/18 10/16/18 05:59 07:26 Sodium 134 L Potassium 3.4 L Chloride 103 Carbon Dioxide 25 Anion Gap 6.0 BUN 35 H Creatinine 1.94 H D Est Cr Clr Drug Dosing 44.4 Est GFR ( Amer) 40.9 Est GFR (Non-Af Amer) 35.3 BUN/Creatinine Ratio 17.9 Glucose 101 H POC Glucose 111 H Calcium 7.8 L Phosphorus 3.0 Albumin 2.0 L
[2018-10-16] MEDS: INSULIN ASPART 100 UNITS/ML 3 ML PEN SC SCH ×4 (10:00→21:01)
--- NOTE | 2018-10-16 10:05 | Cardiology Progress Note ---
Date of Service October 16, 2018 Assessment & Plan (1) Coronary artery disease: The patient has an extensive cardiac history. Cardiac catheterization performed in July 2018 noted a patent DELATORRE and FERNANDO along with significant [place] coronary disease. However, none nothing was amenable to intervention at that time and medical care was recommended. The patient has done well since that time without episodes of angina pectoris, he was having what is described as "heartburn" which could be angina. During his hospitalization, including after his events last night, he has continued to deny chest discomfort or heartburn. He developed heart block (which could be due to ischemia although no t necessarily since he has underlying conduction disease) with bradycardia and is troponin mann to 30, with a subsequent measurement of 33. He certainly has reason to have ischemia given his anemia, use of Levophed, hypotension and stress. Although he could have had a cardiac event I think it is conceivable that this is demand ischemia even with that high of a troponin measurement. I do not think we can consider invasive evaluation under the circumstances, including his recent back surgery and blood loss. (2) Ischemic cardiomyopathy: Left ventricular systolic function was moderately reduced with an ejection fraction of 30-35% on an echocardiogram performed in July 2018. On October 12, 2018 his echocardiogram showed an ejection fraction of 20 to 25%. This decrease could just be due to stunning from his difficult postoperative course. I would plan on repeating it as a limited echo prior to discharge to reassess his left ventricular function. (3) Chronic systolic (congestive) heart failure: Clinically he had done well with his heart failure prior to surgery. Now he has evidence of ongoing fluid overload, however that appears to be iatrogenic from blood and volume to treat his hypotension and anemia. He does not seem to have gone into significant left heart failure despite a reduction in ejection fraction. I do not think the fluid retention reflects worsening of his cardiac function. We need to continue to diuresis more if his blood pressure will allow it. His weight has continued to trend upwards, although his intake and output suggest a net loss. I think we need more aggressive diuresis, he is on daily Lasix and I will increase that to twice daily. Based on weights he probably has about 10 kg of excess fluid at this point. (4) ICD (implantable cardioverter-defibrillator) in place: The patient had a single-chamber ICD placed after an episode of sudden cardiac in October 2011. His device has been functioning properly and was checked on May 12, 2018, as well as during last night of October 11, 2018 with reprogramming of the ventricular rate. He regained intrinsic AV conduction several days later and has not had evidence of heart block over the last several days. I therefore decreased his pacing rate to 60 bpm yesterday, he has not had further AV block. I would prefer not to pace if we do not need to. (5) Third degree AV block: He developed complete heart block a little before 1900 on October 11, 2018, the cause was not clear but he does have underlying conduction disease and he was tachycardic. It has resolved as of October 13, 2018. It could have been due to ischemia. His ICD had originally been programmed to a fixed rate of 40 bpm since it was a single-chamber device and that is the standard, if he requires long-term pacing we may have to consider upgrading his device, even adding an atrial lead and possibly a left ventricular lead. I certainly would not make that decision now, he has regained conduction, through device monitoring we can determine how often he requires ventricular pacing in the future. As of October 15, 2018 morning I reprogrammed the device to 60 bpm. Subjective He has no cardiovascular complaints, no significant discomfort Physical Exam Physical Exam: Constitutional: Alert, cooperative and in no distress. Pulmonary: Clear to auscultation bilaterally. Cardiac: Regular rhythm with no murmur, gallop or rub. Abdomen: Soft, nontender with normal bowel sounds. Extremities: +3 bilateral pretibial edema, +2 edema of arms and hands. Skin: No rash, ecchymoses or petechiae. Results & Data Vital Signs (Past 12 Hours) Vital Signs Temp Pulse Pulse Resp BP Pulse Ox 10/16/18 07:11 36.3 C L 82 19 112/61 94 10/16/18 03:48 36.3 C L 81 16 113/64 94 10/16/18 00:00 83 10/15/18 23:01 36.5 C 84 22 118/65 95 Diagnostic Findings Telemetry: Sinus rhythm, heart rate in the 80s, no recent pacing needed
[2018-10-16] MEDS: INSULIN DETEMIR FLEXPEN/FLEX TOUCH 100 UNITS/ML 3ML SQ SCH ×2 (10:34→21:01)
[2018-10-16] MEDS: CASPOFUNGIN 50 MG in SODIUM CHLORIDE 0.9% 250 ML IV SCH (10:40)
[2018-10-16] MEDS: cefTRIAXone SODIUM 2,000 MG in DEXTROSE 5% 50 ML IV SCH (10:40)
--- NOTE | 2018-10-16 11:11 | Infectious Disease Progress Nt ---
Date of Service October 16, 2018 Assessment & Plan (1) Paraspinal abscess: continue current abx and caspo, will likely need 6 weeks IV abx post OR. will need weekly cbc,cmp, esr, cpk while on abx. can follow with ID post d/c. Subjective remains on abx, tolerating well. afebrile overnight, no am labs. no new micro. no pain Review of Systems Review of Systems: All systems reviewed & are unremarkable except as noted in HPI & below Physical Exam Constitutional: WD/WN, vitals as above Eyes: PERRL, conjunctivae normal, anicteric sclerae ENMT: external ear and nose normal, oropharynx normal Neck: normal visual inspection Respiratory: normal respiratory effort, lungs clear to auscultation Cardiovascular: RRR, no murmur, no edema Gastrointestinal (Abdomen): normal bowel sounds, soft, nontender, no hepatosplenomegaly Musculoskeletal: no cyanosis or clubbing, extremities motor strength 5/5 Skin: no rashes, warm and dry Psychiatric: A+Ox3, euthymic affect Results & Data Vital Signs (Past 12 Hours) Vital Signs Temp Pulse Pulse Resp BP Pulse Ox 10/16/18 08:00 81 10/16/18 07:11 36.3 C L 82 19 112/61 94 10/16/18 03:48 36.3 C L 81 16 113/64 94 10/16/18 00:00 83 Laboratory Results Microbiology 10/09/18 10:02 Back,Lower Gram Stain - Final 10/09/18 10:02 Back,Lower Aerobic and Anaerobic Culture - Final Enterobacter cloacae Tiffany albicans 10/07/18 01:00 Urine,Straight Cath Urine Culture - Final No growth - less than 1,000 colonies/mL. 09/27/18 12:05 Blood Blood Culture - Final No growth 09/27/18 11:55 Blood Blood Culture - Final No growth 09/27/18 Unknown Urine,Straight Cath Urine Culture - Final Tiffany albicans
[2018-10-16] MEDS: FUROSEMIDE 80 MG in SYRINGE 0 ML IV SCH (17:05)
[2018-10-16] MEDS: DAPTOmycin 400 MG in SYRINGE 0 ML IV SCH (17:07)
[2018-10-16] MEDS: TAMSULOSIN HCL 0.4 MG CAP PO SCH (21:12)
--- NOTE | 2018-10-16 21:55 | Hospitalist Progress Note ---
Date of Service October 16, 2018 Assessment & Plan (1) Third degree AV block: 10/11 - Mr. Cooper became bradycardic in a complete block and required pressor. His ICD was subsequently turned up to 80 from 40. His troponin reached 33. Per cardiology may be ischemia from the bradycardia or may be cardiac event, however given his current condition will not take him for cath. Pressors were stopped on 10/13. Transferred out of ICU on 10/14 Now in tele. (2) Paraspinal abscess: had surgery on 09/10/18, changed Zyvox to daptomycin due to thrombocytopenia Lumbar CT 09/30 showing L2-L3 and L3-L4 discitis osteolytis - post op 10/09 -continues to require ICU for pressor support - wound care per surgery - Epidural culture from surgery growing enterobacter and rajendra - will continue ceftriaxone and caspofungin. Daptomycin was also started (10/16)- ID aware will continue antibiotics for 6 more weeks. (3) Acute kidney injury: PAULA on CKD. The patient's creatinine had been improving but began increasing after this most recent surgery and is now back up to 2.5 - nephrology consulted - may be ATN due to hypotension which will take some time to recover - continue serial prps -Creatinine improved to 1.94 (4) Thrombocytopenia: Platelets had dropped to 55,000 from 250,000 on admission but appear to be rebounding. Heparin antibodies were negative. Zyvox adverse effect includes thrombocytopenia. Discussed with ID changed to daptomycin CPK elevated at 700 on 10/11 so will hold statin. (5) Altered mental status: resolved metabolic encephalopathy due to PAULA on CKD, chronic pain, chronic infection, and on narcotics (6) Coagulase-negative staphylococcal infection: Wound culture 09/10 Daptomycin as above was on Vanco but stopped due to PAULA BC ng f/u Dr. Ndiaye for further instructions (7) Post-operative pain: Continue narcotic therapy for chronic pain management. Appreciate orthopedic consultation and management of the infection. Fentanyl patch fell off patient. will replace it. Will continue to monitor mental status. May consider holding if patient becomes confused. (8) Chronic systolic heart failure: Currently fluid overloaded. IVF dc'd Last echo 07/2018 - ejection fraction of 30-35% Echo repeated given elevated troponin and pending Per cardiology - patient should be diuresed as soon as possible though he does not appear to be in left heart failure On lasix 80 mg daily (9) Urinary retention: continue luna, changed 09/29 for funguria (10) Acute anemia: Given a total of 8u PRBCs this admission. (11) Ischemic cardiomyopathy: Continue current medical management - ASA restarted, will need to restart plavix once platelets begin to rebound and bleeding risk has improved; will ky restart plavix tomorrow in AM. (12) ICD (implantable cardioverter-defibrillator) in place: Stable (13) Diabetes mellitus, type 2: diabetic diet Novolog, lantus (14) Acute UTI (urinary tract infection): Fungal elements isolated. Intravenous caspofungin through October 05. Repeat UC - no fungal growth (15) DVT prophylaxis: heparin subq held for low platelets, SCDs - platelets are improving, if patient can keep his hgb stable should restart heparin subq but will hold given bleeding risk and requirement of multiple units PRBCs Spent 25 minutes in management of patient. This included chart review. Subjective Patient reports no new complaints today. He is doing well. Review of Systems Review of Systems: All systems reviewed & are unremarkable except as noted in HPI & below Physical Exam Physical Exam: General: no distress, off pressors. Eyes: normal inspection, PERLL Respiratory: chest non tender, clear to auscultation, normal breath sounds, no respiratory distress, no accessory muscle use Cardiac: regular rate and rhythm, no rub or gallop, no murmur, no edema, no jvd GI/: active bowel sounds, no abd pain or tenderness, soft, non distended Extremities: normal range of motion, normal strength, non tender Neuro/Psych: alert and oriented x 3, normal mood and affect Skin: pedal edema noted. Results & Data Vital Signs (Past 12 Hours) Vital Signs Temp Pulse Pulse Resp BP Pulse Ox 10/16/18 19:59 36.7 C 83 20 124/74 97 10/16/18 18:19 84 10/16/18 15:01 36.4 C L 84 19 130/75 99 10/16/18 11:19 36.8 C 83 19 135/73 95
[2018-10-17] MEDS: POLYETHYLENE (MIRALAX) 17 GM PACK PO SCH ×5 (00:34→23:45)
[2018-10-17] MEDS: CHECK FENTANYL PATCH PLACEMENT SCH ×4 (00:35→23:45)
[2018-10-17] MEDS: ACETAMINOPHEN 500 MG TAB PO PRN (06:34)
[2018-10-17 07:10] LABS: Albumin Level 2.1 gm/dl (3.4-5.0); BUN Creatinine Ratio 18.2 (10-20); Calcium 8.1 mg/dl (8.5-10.1); Creatinine Clr Calc Pharmacy 50.3 ml/min; Est GFR (Non-African American) 42.3; Phosphorus 2.7 mg/dl (2.5-4.9); Potassium 3.3 mmol/L (3.5-5.1)
[2018-10-17] MEDS: INSULIN ASPART 100 UNITS/ML 3 ML PEN SC SCH ×4 (08:38→21:19)
[2018-10-17] MEDS: POTASSIUM CHLORIDE 20 MEQ TABCR PO SCH ×2 (08:39→20:58)
[2018-10-17] MEDS: CLOPIDOGREL BISULFATE 75 MG TAB PO SCH (08:39)
[2018-10-17] MEDS: CHOLECALCIFEROL 1,000 UNITS TAB PO SCH (08:39)
[2018-10-17] MEDS: FUROSEMIDE 80 MG in SYRINGE 0 ML IV SCH ×2 (08:39→15:48)
[2018-10-17] MEDS: MAGNESIUM OXIDE 400 MG TAB PO SCH (08:39)
[2018-10-17] MEDS: CYANOCOBALAMIN 500 MCG TABLET (VITAMIN B-12) PO SCH (08:39)
[2018-10-17] MEDS: FINASTERIDE 5 MG TAB PO SCH (08:39)
[2018-10-17] MEDS: RANITIDINE HCL SYRUP 150 MG/10 ML UDC PO SCH (08:40)
[2018-10-17] MEDS: INSULIN DETEMIR FLEXPEN/FLEX TOUCH 100 UNITS/ML 3ML SQ SCH ×2 (08:41→21:17)
[2018-10-17] MEDS: cefTRIAXone SODIUM 2,000 MG in DEXTROSE 5% 50 ML IV SCH (08:43)
--- NOTE | 2018-10-17 09:03 | Infectious Disease Progress Nt ---
Date of Service October 17, 2018 Assessment & Plan (1) Paraspinal abscess: continue current abx and caspo, will likely need 6 weeks IV abx post OR. will need weekly cbc,cmp, esr, cpk while on abx. can follow with ID post d/c. Subjective remains afebrile, tolerating abx. no new micro. Results & Data Vital Signs (Past 12 Hours) Vital Signs Temp Pulse Pulse Resp BP Pulse Ox 10/17/18 06:57 36.3 C L 81 18 121/71 99 10/17/18 03:35 36.6 C 88 18 135/66 96 10/16/18 23:48 36.4 C L 88 16 140/77 98 Laboratory Results Microbiology 10/09/18 10:02 Back,Lower Gram Stain - Final 10/09/18 10:02 Back,Lower Aerobic and Anaerobic Culture - Final Enterobacter cloacae Tiffany albicans 10/07/18 01:00 Urine,Straight Cath Urine Culture - Final No growth - less than 1,000 colonies/mL. 09/27/18 12:05 Blood Blood Culture - Final No growth 09/27/18 11:55 Blood Blood Culture - Final No growth 09/27/18 Unknown Urine,Straight Cath Urine Culture - Final Tiffany albicans
[2018-10-17] MEDS: CASPOFUNGIN 50 MG in SODIUM CHLORIDE 0.9% 250 ML IV SCH (09:33)
--- NOTE | 2018-10-17 10:00 | Nephrology Progress Note ---
Date of Service October 17, 2018 Assessment & Plan (1) Acute kidney injury: -- Clinically consistent with ATN -- Creatinine continues to improve -- Metabolic profile otherwise acceptable -- Furosemide 80 mg PO daily -- Oral KCl increased to 20 mEq BID -- Document I/O's -- Repeat metabolic profile tomorrow AM -- Medications are appropriately dosed for kidney function (2) Chronic indwelling Rojas catheter: Subjective No acute events overnight. Leandro was resting comfortably in bed this morning. He is breathing comfortably. Edema improving. No fevers or chills. Denies pain. Review of Systems Review of Systems: All systems reviewed & are unremarkable except as noted in HPI & below Physical Exam Constitutional: + obese and + edematous; no acute distress Eyes: no scleral abnormality and no corneal abnormality ENMT: Mouth: no oral mucosal abnormality and oral mucous membranes not dry Neck: normal visual inspection and trachea midline Respiratory: normal respiratory effort; no respiratory distress Auscultation: + rales Cardiovascular: Rate/Rhythm: regular rate Heart Sounds: normal S1 and normal S2 Vessels: no JVD Extremities: + edema Gastrointestinal (Abdomen): Inspection/Auscultation: + abdomen distended Percussion/Palpation: abdomen soft; abdomen nontender Musculoskeletal: Extremities: no cyanosis and no clubbing Skin: normal turgor; no rashes Neurologic: Motor/Sensory: no tremor and no asterixis Psychiatric: Orientation: alert Affect: euthymic affect Results & Data Vital Signs (Past 12 Hours) Vital Signs Temp Pulse Pulse Resp BP Pulse Ox 10/17/18 06:57 36.3 C L 81 18 121/71 99 10/17/18 03:35 36.6 C 88 18 135/66 96 10/16/18 23:48 36.4 C L 88 16 140/77 98 Laboratory Results Laboratory Results - last 24 hr 10/16/18 10/16/18 10/16/18 11:15 16:29 20:32 Sodium Potassium Chloride Carbon Dioxide Anion Gap BUN Creatinine Est Cr Clr Drug Dosing Est GFR ( Amer) Est GFR (Non-Af Amer) BUN/Creatinine Ratio Glucose POC Glucose 145 H 114 H 106 H Calcium Phosphorus Albumin 10/17/18 10/17/18 06:06 07:28 Sodium 135 L Potassium 3.3 L Chloride 101 Carbon Dioxide 27 Anion Gap 7.0 BUN 30 H Creatinine 1.67 H Est Cr Clr Drug Dosing 50.3 Est GFR ( Amer) 49.0 Est GFR (Non-Af Amer) 42.3 BUN/Creatinine Ratio 18.2 Glucose 92 POC Glucose 106 H Calcium 8.1 L Phosphorus 2.7 Albumin 2.1 L
--- NOTE | 2018-10-17 13:33 | Cardiology Progress Note ---
Date of Service October 17, 2018 Assessment & Plan (1) Coronary artery disease: The patient has an extensive cardiac history. Cardiac catheterization performed in July 2018 noted a patent DELATORRE and FERNANDO along with significant [place] coronary disease. However, none nothing was amenable to intervention at that time and medical care was recommended. The patient has done well since that time without episodes of angina pectoris, he was having what is described as "heartburn" which could be angina. During his hospitalization, including after his events last night, he has continued to deny chest discomfort or heartburn. He developed heart block (which could be due to ischemia although n ot necessarily since he has underlying conduction disease) with bradycardia and is troponin mann to 30, with a subsequent measurement of 33. He certainly has reason to have ischemia given his anemia, use of Levophed, hypotension and stress. Although he could have had a cardiac event I think it is conceivable that this is demand ischemia even with that high of a troponin measurement. I do not think we can consider invasive evaluation under the circumstances, including his recent back surgery and blood loss. (2) Ischemic cardiomyopathy: Left ventricular systolic function was moderately reduced with an ejection fraction of 30-35% on an echocardiogram performed in July 2018. On October 12, 2018 his echocardiogram showed an ejection fraction of 20 to 25%. This decrease could just be due to stunning from his difficult postoperative course. I would plan on repeating it as a limited echo prior to discharge to reassess his left ventricular function. I do not think he will be going home over the weekend, so we will plan on doing this early next week. I would like to give him as much time as possible to recover. (3) Chronic systolic (congestive) heart failure: Clinically he had done well with his heart failure prior to surgery. Now he has evidence of ongoing fluid overload, however that appears to be iatrogenic from blood and volume to treat his hypotension and anemia. He does not seem to have gone into significant left heart failure despite a reduction in ejection fraction. I do not think the fluid retention reflects worsening of his cardiac function. We need to continue to diuresis more if his blood pressure will allow it. Since yesterday he has had a dramatic improvement in his urinary output. I am going to reduce his Lasix, I will stop it now and we can restart tomorrow if needed. (4) ICD (implantable cardioverter-defibrillator) in place: The patient had a single-chamber ICD placed after an episode of sudden cardiac in October 2011. His device has been functioning properly and was checked on May 12, 2018, as well as during last night of October 11, 2018 with reprogramming of the ventricular rate. He regained intrinsic AV conduction several days later and has not had evidence of heart block over the last several days. I therefore decreased his pacing rate to 60 bpm yesterday, he has not had further AV block. I would prefer not to pace if we do not need to. (5) Third degree AV block: He developed complete heart block a little before 1900 on October 11, 2018, the cause was not clear but he does have underlying conduction disease and he was tachycardic. It has resolved as of October 13, 2018. It could have been due to ischemia. His ICD had originally been programmed to a fixed rate of 40 bpm since it was a single-chamber device and that is the standard, if he requires long-term pacing we may have to consider upgrading his device, even adding an atrial lead and possibly a left ventricular lead. I certainly would not make that decision now, he has regained conduction, through device monitoring we can determine how often he requires ventricular pacing in the future. As of October 15, 2018 morning I reprogrammed the device to 60 bpm. Subjective He seems to be feeling well, he does note that he feels he is losing a lot of his excess fluid Physical Exam Physical Exam: Constitutional: Alert, cooperative and in no distress. Pulmonary: Clear to auscultation bilaterally. Cardiac: Regular rhythm with no murmur, gallop or rub. Abdomen: Soft, nontender with normal bowel sounds. Extremities: +2 bilateral pretibial edema, +2 edema of arms and hands. Skin: No rash, ecchymoses or petechiae. Results & Data Vital Signs (Past 12 Hours) Vital Signs Temp Pulse Pulse Pulse Resp BP Pulse Ox 10/17/18 11:01 36.4 C L 78 18 124/69 92 10/17/18 08:00 88 10/17/18 06:57 36.3 C L 81 18 121/71 99 10/17/18 03:35 36.6 C 88 18 135/66 96 Diagnostic Findings Telemetry: Sinus rhythm with intact conduction throughout over the past 24 hours, no ventricular pacing
--- NOTE | 2018-10-17 14:41 | Orthopedic Progress Note ---
Date of Service October 17, 2018 Assessment & Plan (1) Weakness of lower extremity: We did see the drain today. We will continue to encourage transfers as tolerated. Present on Admission?: Yes Subjective Patient has no complaints at this time. Physical Exam Physical Exam: Physical exam is unchanged neurologically with decreased swelling to lower extremities. Results & Data Vital Signs (Past 12 Hours) Vital Signs Temp Pulse Pulse Pulse Resp BP Pulse Ox 10/17/18 11:01 36.4 C L 78 18 124/69 92 10/17/18 08:00 88 10/17/18 06:57 36.3 C L 81 18 121/71 99 10/17/18 03:35 36.6 C 88 18 135/66 96
--- NOTE | 2018-10-17 15:06 | Pharmacy Report ---
Pharmacy Glycemic Short Note 2 - Date of Service October 17, 2018 - Glycemic Short BSG Results (Last 24 hours): 10/16/18 10/16/18 10/17/18 16:29 20:32 06:06 Glucose 92 POC Glucose 114 H 106 H 10/17/18 10/17/18 07:28 11:23 Glucose POC Glucose 106 H 117 H OUTPATIENT ANTIDIABETIC REGIMEN: * Levemir 7 units BID * Novolog 10 units TID w/ meals + SSI * Metformin 1gm PO BID * A1c = 6.3% 07-27-18 ASSESSMENT: 10/17: * Mr. Cooper continues to require little insulin * BSGs remain stable, with all in/below goal * SCr improving daily * Will plan to continue same regimen in case insulin requirements increase with improved po intake 10/15: * BSGs continue to be well controlled, patient has had 0 units of insulin in last 48 hours * Diet ordered today, will continue current parameters/lanuts * Will continue to follow with diet changes for now 10/14: * BSGs well controlled yesterday, NPO, received 0 units of insulin * Patient passed swallow eval and recommendations for minced moist diet * Patient received 0 units of insulin yesterday, anticipate needs to increase with diet order * Lantus held again this morning per scale with fasting BSG of 84- will loosen scale for PM * Continue current carb/correction * Patient to be transferred out of unit 10/13 * BSGs with better control yesterday, patient was made NPO for swallow issues until speech eval * Slightly adjusted lantus scale, patient NPO and did not receive per sliding scale BSG * Continue current novolog orders 10/12 * BSGs were well controlled throughout the day yesterday, however last evening BSGs did rise into the 200's * Last evening pt became bradycardic requiring atropine, dopamine and norepinephrine infusions for inotropic and pressor support * Troponin on the rise as well * Acute stressors did likely lead to climbing BSGs * Both dopamine and norepi weaned off this AM and VSS * Will increase Lantus dose on the BID scale only slightly at this time now that pressors off. Will provide more correctional insulin as well in the short term. His PAULA has worsening increasing the risk for insulin accumulation and hypoglycemia as well. 10/11 * BSGs remained elevated the rest of the day yesterday, however are down to goal this AM * Fasting BSG 154-158 this AM w/ 10 units Levemir on board and after receiving 3 units of Novolog correction overnight. * Will continue with current orders at this time and follow BSG pattern * Pt remains very drowsy this AM, and nausea continues 5/3 * Type 2 diabetic identified with sustained hyperglycemia (BSGs > 180) in the ICU (1east) * Pt appears to have received dexamethasone IV in the OR * Patient had been tolerating Levemir 5 units BID this admission without hypoglycemia however is currently on hold * Novolog doses are appropriate starting points, although he could benefit from slightly higher doses in the short term given current stressors * Tight glycemic control in the post-op setting has been shown to prevent surgical site infxn PLAN FOR INPATIENT GLYCEMIC CONTROL: * Hold outpatient oral diabetes medications (metformin) * Basal insulin - no change * Levemir SQ BID per the following scale: * 0 units if less than 150 * 5 units if 150 or greater * Bolus insulin - no change * NovoLog per scale ACHS * Goal Range: Low 120 mg/dL - High 150 mg/dL * Correction Factor: 20 mg/dL/unit * Nutritional / Prandial insulin per carb ratio of 1 unit per 7 grams CHO consumed
[2018-10-17] MEDS: DAPTOmycin 400 MG in SYRINGE 0 ML IV SCH (15:47)
[2018-10-17] MEDS ORDERED: SODIUM CHLORIDE 0.9% 250 ML IV PRN (18:15)
[2018-10-17] MEDS: TAMSULOSIN HCL 0.4 MG CAP PO SCH (20:58)
[2018-10-17] MEDS: OXYCODONE HCL IR 5 MG TAB (IMMEDIATE RELEASE) PO PRN (21:49)
--- NOTE | 2018-10-17 23:58 | Hospitalist Progress Note ---
Date of Service October 17, 2018 Assessment & Plan (1) Third degree AV block: 10/11 - Mr. Cooper became bradycardic in a complete block and required pressor. His ICD was subsequently turned up to 80 from 40. His troponin reached 33. Per cardiology may be ischemia from the bradycardia or may be cardiac event, however given his current condition will not take him for cath. Pressors were stopped on 10/13. Transferred out of ICU on 10/14 now will transfer to med surg on 10/17 (2) Paraspinal abscess: had surgery on 09/10/18, changed Zyvox to daptomycin due to thrombocytopenia Lumbar CT 09/30 showing L2-L3 and L3-L4 discitis osteolytis - post op 10/09 -continues to require ICU for pressor support - wound care per surgery - Epidural culture from surgery growing enterobacter and rajendra - will continue ceftriaxone daptomycin and caspofungin (10/17)- ID aware will continue antibiotics for 6 more weeks. (3) Acute kidney injury: PAULA on CKD. The patient's creatinine had been improving but began increasing after this most recent surgery and is now back up to 2.5 - nephrology consulted - may be ATN due to hypotension which will take some time to recover - continue serial prps -Creatinine improved to 1.67 (4) Thrombocytopenia: Platelets had dropped to 55,000 from 250,000 on admission but appear to be rebounding. Heparin antibodies were negative. Zyvox adverse effect includes thrombocytopenia. Discussed with ID changed to daptomycin CPK elevated at 700 on 10/11 so will hold statin. (5) Altered mental status: resolved metabolic encephalopathy due to PAULA on CKD, chronic pain, chronic infection, and on narcotics (6) Coagulase-negative staphylococcal infection: Wound culture 09/10 Daptomycin as above was on Vanco but stopped due to PAULA BC ng f/u Dr. Ndiaye for further instructions (7) Post-operative pain: Continue narcotic therapy for chronic pain management. Appreciate orthopedic consultation and management of the infection. Fentanyl patch fell off patient. will replace it. Will continue to monitor mental status. May consider holding if patient becomes confused. (8) Chronic systolic heart failure: Currently fluid overloaded. IVF dc'd Last echo 07/2018 - ejection fraction of 30-35% Echo repeated given elevated troponin and pending Per cardiology - patient should be diuresed as soon as possible though he does not appear to be in left heart failure On lasix 80 mg daily (9) Urinary retention: continue luna, changed 09/29 for funguria (10) Acute anemia: Given a total of 9u PRBCs this admission. Hemglbin has been below 10, given that patient is likely to be discharged soon, will transfuse a 9th unit. Will continue to monitor. (11) Ischemic cardiomyopathy: Continue current medical management - ASA restarted, will need to restart plavix once platelets begin to rebound and bleeding risk has improved; Restarted plavix. (12) ICD (implantable cardioverter-defibrillator) in place: Stable (13) Diabetes mellitus, type 2: diabetic diet Novolog, lantus (14) Acute UTI (urinary tract infection): Fungal elements isolated. Intravenous caspofungin through October 05. Repeat UC - no fungal growth (15) DVT prophylaxis: heparin subq held for low platelets, SCDs - platelets are improving, if patient can keep his hgb stable should restart heparin subq but will hold given bleeding risk and requirement of multiple units PRBCs Spent 35 minutes in management of patient. This included chart review. Updated spouse. Subjective Patient reports no new symptoms. Review of Systems Review of Systems: All systems reviewed & are unremarkable except as noted in HPI & below Physical Exam Physical Exam: General: no distress, off pressors. Eyes: normal inspection, PERLL Respiratory: chest non tender, clear to auscultation, normal breath sounds, no respiratory distress, no accessory muscle use Cardiac: regular rate and rhythm, no rub or gallop, no murmur, no edema, no jvd GI/: active bowel sounds, no abd pain or tenderness, soft, non distended Extremities: normal range of motion, normal strength, non tender Neuro/Psych: alert and oriented x 3, normal mood and affect Skin: pedal edema noted. Results & Data Vital Signs (Past 12 Hours) Vital Signs Temp Pulse Pulse Resp BP BP Pulse Ox 10/17/18 23:42 36.7 C 85 18 129/74 97 10/17/18 22:43 36.2 C L 88 18 128/77 97 10/17/18 22:11 36.3 C L 87 16 116/68 99 10/17/18 21:41 36.2 C L 87 18 130/77 99 05/10/19 21:25 36.4 C L 84 18 130/73 99 10/17/18 21:08 36.7 C 86 18 132/74 97 10/17/18 18:43 36.6 C 87 18 129/69 97 10/17/18 15:35 36.7 C 88 20 120/65 97
[2018-10-18] MEDS: POLYETHYLENE (MIRALAX) 17 GM PACK PO SCH ×3 (06:31→19:33)
[2018-10-18] MEDS: HYDROmorphone INJ 0.5 MG/0.5 ML SYR IV PRN (06:41)
[2018-10-18 07:45] LABS: Albumin Level 2.2 gm/dl (3.4-5.0); BUN Creatinine Ratio 18.9 (10-20); Creatinine Clr Calc Pharmacy 56.6 ml/min; Est GFR (African American) 55.8; Est GFR (Non-African American) 48.2; Potassium 3.2 mmol/L (3.5-5.1)
[2018-10-18 07:48] LABS: Phosphorus 2.3 mg/dl (2.5-4.9)
[2018-10-18] MEDS: POTASSIUM CHLORIDE 20 MEQ TABCR PO SCH ×3 (09:05→21:51)
[2018-10-18] MEDS: RANITIDINE HCL SYRUP 150 MG/10 ML UDC PO SCH (09:06)
[2018-10-18] MEDS: CHOLECALCIFEROL 1,000 UNITS TAB PO SCH (09:06)
[2018-10-18] MEDS: CLOPIDOGREL BISULFATE 75 MG TAB PO SCH (09:06)
[2018-10-18] MEDS: CYANOCOBALAMIN 500 MCG TABLET (VITAMIN B-12) PO SCH (09:06)
[2018-10-18] MEDS: FUROSEMIDE 80 MG in SYRINGE 0 ML IV SCH (09:06)
[2018-10-18] MEDS: FINASTERIDE 5 MG TAB PO SCH (09:07)
[2018-10-18] MEDS: INSULIN ASPART 100 UNITS/ML 3 ML PEN SC SCH ×4 (09:08→21:55)
[2018-10-18] MEDS: INSULIN DETEMIR FLEXPEN/FLEX TOUCH 100 UNITS/ML 3ML SQ SCH ×2 (09:10→21:53)
[2018-10-18] MEDS: fentaNYL 25 MCG/HR TDSY TD SCH (09:25)
[2018-10-18] MEDS: CHECK FENTANYL PATCH PLACEMENT SCH ×2 (09:25→17:20)
[2018-10-18] MEDS: MAGNESIUM OXIDE 400 MG TAB PO SCH (09:28)
[2018-10-18] MEDS: CASPOFUNGIN 50 MG in SODIUM CHLORIDE 0.9% 250 ML IV SCH (10:29)
[2018-10-18] MEDS: cefTRIAXone SODIUM 2,000 MG in DEXTROSE 5% 50 ML IV SCH (10:30)
--- NOTE | 2018-10-18 11:08 | Orthopedic Progress Note ---
Date of Service October 18, 2018 Assessment & Plan (1) Leg weakness, bilateral: At this time I would hope to initiate transfers from bed to chair. Present on Admission?: Yes Subjective Patient states his back pain is more controlled. He denies any leg pain. Physical Exam Physical Exam: On exam he is sitting up in bed. He has continued plantar flexion dorsiflexion strength with marked quad deficit. Results & Data Vital Signs (Past 12 Hours) Vital Signs Temp Pulse Pulse Resp BP BP Pulse Ox 10/18/18 07:24 36.3 C L 80 18 141/87 H 97 10/18/18 01:22 36.3 C L 83 16 128/76 96 10/18/18 00:15 36.3 C L 83 16 128/76 96 10/17/18 23:42 36.7 C 85 18 129/74 97 10/17/18 23:40 36.7 C 85 18 129/74 97
--- NOTE | 2018-10-18 12:53 | Nephrology Progress Note ---
Date of Service October 18, 2018 Assessment & Plan (1) Acute kidney injury: -- Clinically consistent with ATN -- Creatinine continues to improve -- Metabolic profile otherwise acceptable -- Remains on furosemide 80 mg IV BID, suggest switching to daily -- May concert to PO diuretics as volume status improves -- Oral KCl increased to 20 mEq TID -- Document I/O's -- Repeat metabolic profile tomorrow AM -- Medications are appropriately dosed for kidney function (2) Chronic indwelling Rojas catheter: Subjective No acute events overnight. Pain control improved. No fevers or chills. Appetite good. Family at the bedside. Review of Systems Review of Systems: All systems reviewed & are unremarkable except as noted in HPI & below Physical Exam Constitutional: + obese; no acute distress Eyes: no scleral abnormality and no corneal abnormality ENMT: Mouth: no oral mucosal abnormality and oral mucous membranes not dry Neck: normal visual inspection and trachea midline Respiratory: normal respiratory effort; no respiratory distress Auscultation: lungs clear to auscultation bilaterally Cardiovascular: Rate/Rhythm: regular rate Heart Sounds: normal S1 and normal S2 Vessels: no JVD Extremities: + edema Gastrointestinal (Abdomen): Inspection/Auscultation: + abdomen distended Percussion/Palpation: abdomen soft; abdomen nontender Musculoskeletal: Extremities: no cyanosis and no clubbing Skin: normal turgor; no rashes Neurologic: Motor/Sensory: no tremor and no asterixis Psychiatric: Orientation: alert Eye Contact: good eye contact Affect: euthymic affect Results & Data Vital Signs (Past 12 Hours) Vital Signs Temp Pulse Pulse Resp BP BP Pulse Ox 10/18/18 07:24 36.3 C L 80 18 141/87 H 97 10/18/18 01:22 36.3 C L 83 16 128/76 96 Laboratory Results Laboratory Results - last 24 hr 10/17/18 10/17/18 10/17/18 16:31 18:29 20:43 Sodium Potassium Chloride Carbon Dioxide Anion Gap BUN Creatinine Est Cr Clr Drug Dosing Est GFR ( Amer) Est GFR (Non-Af Amer) BUN/Creatinine Ratio Glucose POC Glucose 169 H 131 H Calcium Phosphorus Total Creatine Kinase Albumin Blood Type A Positive Antibody Screen POSITIVE A Antibody Identification Anti-E Crossmatch See Detail 10/18/18 10/18/18 10/18/18 06:09 08:29 12:07 Sodium 134 L Potassium 3.2 L Chloride 99 Carbon Dioxide 27 Anion Gap 8.0 BUN 28 H Creatinine 1.50 H Est Cr Clr Drug Dosing 56.6 Est GFR ( Amer) 55.8 Est GFR (Non-Af Amer) 48.2 BUN/Creatinine Ratio 18.9 Glucose 101 H POC Glucose 129 H 120 H Calcium 8.0 L Phosphorus 2.3 L Total Creatine Kinase 118 Albumin 2.2 L Blood Type Antibody Screen Antibody Identification Crossmatch
[2018-10-18 13:46] LABS: Basophils # (auto) 0.02 K/uL (0-0.2); Basophils % (auto) 0.2 %; Eosinophils % (auto) 3.5 %; Hematocrit (blood only) 32.2 % (42-52); Hemoglobin 10.6 g/dL (14.0-18.0); Immature Granulocytes # (auto) 0.27 K/uL (0.00-0.02); Immature Granulocytes % (auto) 3.1 %; Lymphocytes # (auto) 0.77 K/uL (1.2-3.4); Mean Corpuscular Hgb Conc 32.9 g/dL (32-36); Mean Corpuscular Volume 88.2 fL (80-100); Mean Platelet Volume 9.1 fL (7.4-10.4); Monocytes # (auto) 1.24 K/uL (0.11-0.59); Monocytes % (auto) 14.5 %; Neutrophils # (auto) 5.98 K/uL (1.4-6.5); Neutrophils % (auto) 69.7 %; Platelet Count 240 K/uL (130-400); RDW Coefficient of Variation 17.4 % (11.5-14.5); RDW Standard Deviation 52.3 fL (36.4-46.3); Red Blood Count 3.65 M/uL (4.7-6.1); White Blood Count 8.58 K/uL (4.8-10.8)
[2018-10-18] MEDS ORDERED: SODIUM CHLORIDE 0.9% 10ML FLUSH IV ONE (16:11)
[2018-10-18] MEDS ORDERED: ATROPINE SULFATE 0.1 MG/ML 10ML SYR IV ONE (16:11)
[2018-10-18] MEDS: DAPTOmycin 400 MG in SYRINGE 0 ML IV SCH (17:21)
[2018-10-18] MEDS ORDERED: ALTEPLASE, RECOMBINANT 1 MG/ML 2ML VIAL IV ONE (17:39)
[2018-10-18] MEDS: TAMSULOSIN HCL 0.4 MG CAP PO SCH (21:51)
--- NOTE | 2018-10-18 22:29 | Hospitalist Progress Note ---
Date of Service October 18, 2018 Assessment & Plan (1) Third degree AV block: 10/11 - Mr. Cooper became bradycardic in a complete block and required pressor. His ICD was subsequently turned up to 80 from 40. His troponin reached 33. Per cardiology may be ischemia from the bradycardia or may be cardiac event, however given his current condition will not take him for cath. Pressors were stopped on 10/13. Transferred out of ICU on 10/14 Transferred to med surg on 10/17 (2) Paraspinal abscess: had surgery on 09/10/18, changed Zyvox to daptomycin due to thrombocytopenia Lumbar CT 09/30 showing L2-L3 and L3-L4 discitis osteolytis - post op 10/09 -continues to require ICU for pressor support - wound care per surgery - Epidural culture from surgery growing enterobacter and rajendra - will continue ceftriaxone daptomycin and caspofungin (10/18)- ID aware will continue antibiotics for 6 more weeks. (3) Acute kidney injury: PAULA on CKD. The patient's creatinine had been improving but began increasing after this most recent surgery and is now back up to 2.5 - nephrology consulted - may be ATN due to hypotension which will take some time to recover - continue serial prps -Creatinine improved to 1.5 (4) Thrombocytopenia: Platelets had dropped to 55,000 from 250,000 on admission but appear to be rebounding. Heparin antibodies were negative. Zyvox adverse effect includes thrombocytopenia. Discussed with ID changed to daptomycin CPK elevated at 700 on 10/11 so will hold statin. will resume Statin tomorrow as CK has normalized. (5) Altered mental status: resolved metabolic encephalopathy due to PAULA on CKD, chronic pain, chronic infection, and on narcotics (6) Coagulase-negative staphylococcal infection: Wound culture 09/10 Daptomycin as above was on Vanco but stopped due to PAULA BC ng f/u Dr. Ndiaye for further instructions (7) Post-operative pain: Continue narcotic therapy for chronic pain management. Appreciate orthopedic consultation and management of the infection. Fentanyl patch fell off patient. will replace it. Will continue to monitor mental status. May consider holding if patient becomes confused. (8) Chronic systolic heart failure: Currently fluid overloaded. IVF dc'd Last echo 07/2018 - ejection fraction of 30-35% Echo repeated given elevated troponin and pending Per cardiology - patient should be diuresed as soon as possible though he does not appear to be in left heart failure On lasix 80 mg daily (9) Urinary retention: continue luna, changed 09/29 for funguria (10) Acute anemia: Given a total of 9u PRBCs this admission. Hemglbin has been below 10, given that patient is likely to be discharged soon, will transfuse a 9th unit. Will continue to monitor. (11) Ischemic cardiomyopathy: Continue current medical management - ASA restarted, will need to restart plavix once platelets begin to rebound and bleeding risk has improved; Restarted plavix. (12) ICD (implantable cardioverter-defibrillator) in place: Stable (13) Diabetes mellitus, type 2: diabetic diet Novolog, lant (14) Acute UTI (urinary tract infection): Fungal elements isolated. Intravenous caspofungin through October 05. Repeat UC - no fungal growth (15) DVT prophylaxis: heparin subq held for low platelets, SCDs - platelets are improving, if patient can keep his hgb stable should restart heparin subq but will hold given bleeding risk and requirement of multiple units PRBCs Spent 25 minutes in management of patient. This included chart review. Subjective Patient reports feeling well. Has not been very active today. Review of Systems Review of Systems: All systems reviewed & are unremarkable except as noted in HPI & below Physical Exam Physical Exam: General: no distress. Eyes: normal inspection, PERLL Respiratory: chest non tender, clear to auscultation, normal breath sounds, no respiratory distress, no accessory muscle use Cardiac: regular rate and rhythm, no rub or gallop, no murmur, no edema, no jvd GI/: active bowel sounds, no abd pain or tenderness, soft, non distended Extremities: normal range of motion, normal strength, non tender Neuro/Psych: alert and oriented x 3, normal mood and affect Skin: pedal edema noted. Results & Data Vital Signs (Past 12 Hours) Vital Signs Temp Pulse Resp BP Pulse Ox 10/18/18 15:11 36.4 C L 83 17 130/71 98
[2018-10-19] MEDS: POLYETHYLENE (MIRALAX) 17 GM PACK PO SCH ×4 (00:10→18:04)
[2018-10-19] MEDS: CHECK FENTANYL PATCH PLACEMENT SCH ×3 (00:10→16:36)
[2018-10-19] MEDS: FUROSEMIDE 80 MG in SYRINGE 0 ML IV SCH (08:46)
[2018-10-19] MEDS: CLOPIDOGREL BISULFATE 75 MG TAB PO SCH (08:46)
[2018-10-19] MEDS: CHOLECALCIFEROL 1,000 UNITS TAB PO SCH (08:46)
[2018-10-19] MEDS: MAGNESIUM OXIDE 400 MG TAB PO SCH (08:47)
[2018-10-19] MEDS: CYANOCOBALAMIN 500 MCG TABLET (VITAMIN B-12) PO SCH (08:47)
[2018-10-19] MEDS: POTASSIUM CHLORIDE 20 MEQ TABCR PO SCH ×3 (08:47→20:24)
[2018-10-19] MEDS: FINASTERIDE 5 MG TAB PO SCH (08:48)
[2018-10-19] MEDS: RANITIDINE HCL SYRUP 150 MG/10 ML UDC PO SCH (08:48)
[2018-10-19] MEDS: INSULIN DETEMIR FLEXPEN/FLEX TOUCH 100 UNITS/ML 3ML SQ SCH (08:55)
[2018-10-19] MEDS: INSULIN ASPART 100 UNITS/ML 3 ML PEN SC SCH ×4 (08:56→21:32)
[2018-10-19] MEDS: cefTRIAXone SODIUM 2,000 MG in DEXTROSE 5% 50 ML IV SCH (09:00)
[2018-10-19] MEDS: CASPOFUNGIN 50 MG in SODIUM CHLORIDE 0.9% 250 ML IV SCH (09:03)
[2018-10-19 09:05] LABS: Albumin Level 2.3 gm/dl (3.4-5.0); BUN Creatinine Ratio 17.1 (10-20); Calcium 8.3 mg/dl (8.5-10.1); Creatinine Clr Calc Pharmacy 62.8 ml/min; Est GFR (African American) 63.4; Est GFR (Non-African American) 54.7; Phosphorus 2.4 mg/dl (2.5-4.9); Potassium 3.7 mmol/L (3.5-5.1)
[2018-10-19] MEDS: OXYCODONE HCL IR 5 MG TAB (IMMEDIATE RELEASE) PO PRN (11:31)
--- NOTE | 2018-10-19 12:57 | Nephrology Progress Note ---
Date of Service October 19, 2018 Assessment & Plan (1) Acute kidney injury: -- Clinically consistent with ATN -- Creatinine improved -- Metabolic profile otherwise acceptable -- Continue furosemide to maintain slightly negative fluid balance -- Potassium improved with KCl 20 mEq TID -- Document I/O's -- Medications are appropriately dosed for kidney function -- Nephrology will sign-off, please call with questions or concerns (2) Chronic indwelling Rojas catheter: Subjective No acute events overnight. Pain control improved. No fevers or chills. No dyspnea. Activity tolerance improving. Review of Systems Review of Systems: All systems reviewed & are unremarkable except as noted in HPI & below Physical Exam Constitutional: + obese; no acute distress Eyes: no scleral abnormality and no corneal abnormality ENMT: Mouth: no oral mucosal abnormality and oral mucous membranes not dry Neck: normal visual inspection and trachea midline Respiratory: normal respiratory effort; no respiratory distress Auscultation: lungs clear to auscultation bilaterally Cardiovascular: Rate/Rhythm: regular rate Heart Sounds: normal S1 and normal S2 Vessels: no JVD Extremities: + edema Gastrointestinal (Abdomen): Inspection/Auscultation: + abdomen distended Percussion/Palpation: abdomen soft; abdomen nontender Musculoskeletal: Extremities: no cyanosis and no clubbing Skin: normal turgor; no rashes Neurologic: Motor/Sensory: no tremor and no asterixis Psychiatric: Orientation: alert Eye Contact: good eye contact Affect: eu thymic affect Results & Data Vital Signs (Past 12 Hours) Vital Signs Temp Pulse Resp BP Pulse Ox 10/19/18 07:13 36.4 C L 89 20 147/82 H 97 Laboratory Results Laboratory Results - last 24 hr 10/17/18 10/18/18 10/18/18 18:29 06:09 17:15 WBC 8.58 RBC 3.65 L Hgb 10.6 L Hct 32.2 L MCV 88.2 MCH 29.0 MCHC 32.9 RDW Std Deviation 52.3 H RDW Coeff of Norbert 17.4 H Plt Count 240 MPV 9.1 Immature Gran % (Auto) 3.1 Neut % (Auto) 69.7 Lymph % (Auto) 9.0 [place] % (Auto) 14.5 Eos % (Auto) 3.5 Baso % (Auto) 0.2 Immature Gran # (Auto) 0.27 H Neut # (Auto) 5.98 Lymph # (Auto) 0.77 L [place] # (Auto) 1.24 H Eos # (Auto) 0.30 Baso # (Auto) 0.02 Sodium Potassium Chloride Carbon Dioxide Anion Gap BUN Creatinine Est Cr Clr Drug Dosing Est GFR ( Amer) Est GFR (Non-Af Amer) BUN/Creatinine Ratio Glucose POC Glucose 113 H Calcium Phosphorus Albumin Antibody Identification Anti-E 10/18/18 10/19/18 10/19/18 20:23 07:51 08:14 WBC RBC Hgb Hct MCV MCH MCHC RDW Std Deviation RDW Coeff of Norbert Plt Count MPV Immature Gran % (Auto) Neut % (Auto) Lymph % (Auto) [place] % (Auto) Eos % (Auto) Baso % (Auto) Immature Gran # (Auto) Neut # (Auto) Lymph # (Auto) [place] # (Auto) Eos # (Auto) Baso # (Auto) Sodium 138 Potassium 3.7 D Chloride 101 Carbon Dioxide 30 Anion Gap 7.0 BUN 23 H Creatinine 1.35 Est Cr Clr Drug Dosing 62.8 Est GFR ( Amer) 63.4 Est GFR (Non-Af Amer) 54.7 BUN/Creatinine Ratio 17.1 Glucose 105 H POC Glucose 184 H 119 H Calcium 8.3 L Phosphorus 2.4 L Albumin 2.3 L Antibody Identification 10/19/18 12:20 WBC RBC Hgb Hct MCV MCH MCHC RDW Std Deviation RDW Coeff of Norbert Plt Count MPV Immature Gran % (Auto) Neut % (Auto) Lymph % (Auto) [place] % (Auto) Eos % (Auto) Baso % (Auto) Immature Gran # (Auto) Neut # (Auto) Lymph # (Auto) [place] # (Auto) Eos # (Auto) Baso # (Auto) Sodium Potassium Chloride Carbon Dioxide Anion Gap BUN Creatinine Est Cr Clr Drug Dosing Est GFR ( Amer) Est GFR (Non-Af Amer) BUN/Creatinine Ratio Glucose POC Glucose 111 H Calcium Phosphorus Albumin Antibody Identification
[2018-10-19] MEDS ORDERED: METOPROLOL SUCC 50MG EXT REL TAB PO STA (13:13)
[2018-10-19] MEDS ORDERED: PERFLUTREN LIPID MICROSPHERE (DEFINITY) IV ONE (13:32)
--- NOTE | 2018-10-19 14:42 | Pharmacy Report ---
Pharmacy Glycemic Short Note 2 - Date of Service October 19, 2018 - Glycemic Short BSG Results (Last 24 hours): 10/18/18 10/18/18 10/19/18 17:15 20:23 07:51 Glucose 105 H POC Glucose 113 H 184 H 10/19/18 10/19/18 08:14 12:20 Glucose POC Glucose 119 H 111 H OUTPATIENT ANTIDIABETIC REGIMEN: * Levemir 7 units BID * Novolog 10 units TID w/ meals + SSI * Metformin 1gm PO BID * A1c = 6.3% 07-27-18 ASSESSMENT: * Excellent glycemic control over the past 24 hours. Patient received a total of 21 units of insulin yesterday. * Fasting BSG at goal; 119 mg/dL. Leandro received no basal insulin on 10/16 - 10/17 and only 5 units on 10/18 therefore I will discontinue basal insulin. * No changes to Novolog at this time. * PAULA resolving. Scr improved to 1.35 mg/dL today. PLAN FOR INPATIENT GLYCEMIC CONTROL: * Hold outpatient oral diabetes medications (metformin on hold due to PAULA) * Basal insulin - discontinue * Bolus insulin - no change * NovoLog per scale ACHS * Goal Range: Low 120 mg/dL - High 150 mg/dL * Correction Factor: 20 mg/dL/unit * Nutritional / Prandial insulin per carb ratio of 1 unit per 7 grams CHO consumed
[2018-10-19] MEDS: DAPTOmycin 400 MG in SYRINGE 0 ML IV SCH (16:36)
[2018-10-19] MEDS: TAMSULOSIN HCL 0.4 MG CAP PO SCH (20:25)
[2018-10-19] MEDS: HEPARIN SOD 5,000 UNIT/0.5 ML VIAL SQ SCH (21:36)
--- NOTE | 2018-10-19 23:06 | Hospitalist Progress Note ---
Date of Service October 19, 2018 Assessment & Plan (1) Third degree AV block: 10/11 - Mr. Cooper became bradycardic in a complete block and required pressor. His ICD was subsequently turned up to 80 from 40. His troponin reached 33. Per cardiology may be ischemia from the bradycardia or may be cardiac event, however given his current condition will not take him for cath. Pressors were stopped on 10/13. Transferred out of ICU on 10/14 Transferred to med surg on 10/17 (2) Paraspinal abscess: had surgery on 09/10/18, changed Zyvox to daptomycin due to thrombocytopenia Lumbar CT 09/30 showing L2-L3 and L3-L4 discitis osteolytis - post op 10/09 -continues to require ICU for pressor support - wound care per surgery - Epidural culture from surgery growing enterobacter and rajendra - will continue ceftriaxone daptomycin and caspofungin (10/18)- ID aware will continue antibiotics for 6 more weeks. (3) Acute kidney injury: PAULA on CKD. The patient's creatinine had been improving but began increasing after this most recent surgery and is now back up to 2.5 - nephrology consulted - may be ATN due to hypotension which will take some time to recover - continue serial prps -Creatinine improved to 1.35 (4) Thrombocytopenia: Platelets had dropped to 55,000 from 250,000 on admission but appear to be rebounding. Heparin antibodies were negative. Zyvox adverse effect includes thrombocytopenia. Discussed with ID changed to daptomycin CPK elevated at 700 on 10/11 so will hold statin. plan was to resume Statin as CK has normalized. However statin reacts to daptomycin (5) Altered mental status: resolved metabolic encephalopathy due to PAULA on CKD, chronic pain, chronic infection, and on narcotics (6) Coagulase-negative staphylococcal infection: Wound culture 09/10 Daptomycin as above was on Vanco but stopped due to PAULA BC ng f/u Dr. Ndiaye for further instructions (7) Post-operative pain: Continue narcotic therapy for chronic pain management. Appreciate orthopedic consultation and management of the infection. Fentanyl patch fell off patient. will replace it. Will continue to monitor mental status. May consider holding if patient becomes confused. (8) Chronic systolic heart failure: Currently fluid overloaded. IVF dc'd Last echo 07/2018 - ejection fraction of 30-35% Echo repeated given elevated troponin :EF showed 25% Reordered Limited echoon 10/19 Restarted beta angy but at lower dose On lasix 80 mg daily (9) Urinary retention: continue luna, changed 09/29 for funguria (10) Acute anemia: Given a total of 9u PRBCs this admission. Hemglbin has been below 10, given that patient is likely to be discharged soon, will transfuse a 9th unit. Will continue to monitor. (11) Ischemic cardiomyopathy: Continue current medical management - ASA restarted, will need to restart plavix once platelets begin to rebound and bleeding risk has improved; Restarted plavix. (12) ICD (implantable cardioverter-defibrillator) in place: Stable (13) Diabetes mellitus, type 2: diabetic diet [employer] (14) Acute UTI (urinary tract infection): Fungal elements isolated. Intravenous caspofungin through October 05. Repeat UC - no fungal growth (15) DVT prophylaxis: heparin subq held for low platelets, SCDs - platelets are improving, if patient can keep his hgb stable should restart heparin subq but will hold given bleeding risk and requirement of multiple units PRBCs Spent 35 minutes in management of patient. This included chart review. Dispo: discharge saturday or saturday. Set up antibiotics recommend bite sized diet Subjective Patient reports no new symptoms today.He asked for a regular diet but reported difficulty swallowing. However he admitted to taking larger bites than usual. When pressed on issue, he states he can eat bite sized meals well. Review of Systems Review of Systems: All systems reviewed & are unremarkable except as noted in HPI & below Physical Exam Physical Exam: General: no distress. Eyes: normal inspection, PERLL Respiratory: chest non tender, clear to auscultation, normal breath sounds, no respiratory distress, no accessory muscle use Cardiac: regular rate and rhythm, no rub or gallop, no murmur, no edema, no jvd GI/: active bowel sounds, no abd pain or tenderness, soft, non distended Extremities: normal range of motion, normal strength, non tender Neuro/Psych: alert and oriented x 3, normal mood and affect Skin: pedal edema noted. Results & Data Vital Signs (Past 12 Hours) Vital Signs Temp Pulse Pulse Resp BP Pulse Ox 10/19/18 15:21 36.4 C L 84 17 112/66 95 10/19/18 14:39 84 121/76
[2018-10-20] MEDS: POLYETHYLENE (MIRALAX) 17 GM PACK PO SCH ×5 (00:52→21:38)
[2018-10-20] MEDS: CHECK FENTANYL PATCH PLACEMENT SCH ×3 (00:53→15:55)
[2018-10-20] MEDS: OXYCODONE HCL IR 5 MG TAB (IMMEDIATE RELEASE) PO PRN ×4 (00:54→18:15)
[2018-10-20] MEDS: HEPARIN SOD 5,000 UNIT/0.5 ML VIAL SQ SCH ×3 (06:08→21:28)
[2018-10-20 07:12] LABS: Albumin Level 2.2 gm/dl (3.4-5.0); BUN Creatinine Ratio 16.8 (10-20); Calcium 8.6 mg/dl (8.5-10.1); Creatinine Clr Calc Pharmacy 63.8 ml/min; Est GFR (African American) 64.6; Est GFR (Non-African American) 55.7; Phosphorus 2.3 mg/dl (2.5-4.9)
[2018-10-20] MEDS: CASPOFUNGIN 50 MG in SODIUM CHLORIDE 0.9% 250 ML IV SCH (09:18)
[2018-10-20] MEDS: cefTRIAXone SODIUM 2,000 MG in DEXTROSE 5% 50 ML IV SCH (09:20)
[2018-10-20] MEDS: RANITIDINE HCL SYRUP 150 MG/10 ML UDC PO SCH (09:22)
[2018-10-20] MEDS: METOPROLOL SUCC 50MG EXT REL TAB PO SCH (09:23)
[2018-10-20] MEDS: FUROSEMIDE 80 MG in SYRINGE 0 ML IV SCH (09:23)
[2018-10-20] MEDS: POTASSIUM CHLORIDE 20 MEQ TABCR PO SCH ×3 (09:24→21:25)
[2018-10-20] MEDS: CHOLECALCIFEROL 1,000 UNITS TAB PO SCH (09:24)
[2018-10-20] MEDS: CLOPIDOGREL BISULFATE 75 MG TAB PO SCH (09:24)
[2018-10-20] MEDS: CYANOCOBALAMIN 500 MCG TABLET (VITAMIN B-12) PO SCH (09:24)
[2018-10-20] MEDS: FINASTERIDE 5 MG TAB PO SCH (09:24)
[2018-10-20] MEDS: MAGNESIUM OXIDE 400 MG TAB PO SCH (09:24)
[2018-10-20] MEDS: INSULIN ASPART 100 UNITS/ML 3 ML PEN SC SCH ×4 (09:26→21:26)
[2018-10-20] MEDS: ASPIRIN 81 MG ECTAB PO SCH (10:31)
--- NOTE | 2018-10-20 11:17 | Orthopedic Progress Note ---
Date of Service October 20, 2018 Assessment & Plan (1) Leg weakness, bilateral: This time we will continue to encourage bed to chair. He may use a lift. He will require further therapy regarding his quadriceps deficits. We will need to consider removal of the florentin in the next few days. Present on Admission?: Yes Subjective Patient complaining of back pain only. Physical Exam Physical Exam: On exam he continues to demonstrate deficits with quadriceps bilaterally. However I am able to appreciate activation of the muscle groups. Plantar flexion dorsiflexion intact. Incision is clean dry and intact. Results & Data Vital Signs (Past 12 Hours) Vital Signs Temp Pulse Resp BP Pulse Ox 10/20/18 07:27 36.2 C L 78 16 118/72 99
--- NOTE | 2018-10-20 13:09 | Hospitalist Progress Note ---
Date of Service October 20, 2018 Assessment & Plan (1) Third degree AV block: 10/11 - Mr. Cooper became bradycardic in a complete block and required pressor. His ICD was subsequently turned up to 80 from 40. His troponin reached 33. Per cardiology may be ischemia from the bradycardia or may be cardiac event, however given his current condition will not take him for cath. Pressors were stopped on 10/13. Transferred out of ICU on 10/14 Transferred to med surg on 10/17 vitals continue to be stable, both blood pressure and HR (2) Paraspinal abscess: had surgery on 09/10/18, changed Zyvox to daptomycin due to thrombocytopenia Lumbar CT 09/30 showing L2-L3 and L3-L4 discitis osteolytis - post op 10/09 - wound care per surgery - Epidural culture from surgery growing enterobacter and rajendra - will continue ceftriaxone daptomycin and caspofungin (10/18)- ID aware will continue antibiotics for 6 more weeks may limit placement, looking into LTACH or acute rehab, discussing with CM (3) Acute kidney injury: PAULA on CKD. The patient's creatinine had been improving but began increasing after this most recent surgery and is now back up to 2.5 - nephrology consulted - likely ATN due to hypotension in perioperative period -Creatinine improved to 1.33 today, PAULA resolved continue to use Lasix 80mg IV qAM change to PO in next 1-2 days diuresing very well K stable (4) Thrombocytopenia: Platelets had dropped to 55k from 250k on admission but appear to be rebounding. Heparin antibodies were negative. Zyvox adverse effect includes thrombocytopenia. Discussed with ID changed to daptomycin platelets back up to 240k, so likely it was due to Zyvox (5) Altered mental status: resolved metabolic encephalopathy due to PAULA on CKD, chronic pain, chronic infection, and on narcotics (6) Coagulase-negative staphylococcal infection: Wound culture 09/10 Daptomycin as above was on Vanco but stopped due to PAULA BC ng (7) Post-operative pain: Continue narcotic therapy for chronic pain management. Appreciate orthopedic consultation and management of the infection. Fentanyl patch Will continue to monitor mental status. May consider holding if patient becomes confused. (8) Chronic systolic heart failure: became volume overloaded due to ATN, this was not acute systolic heart failure Last echo 07/2018 - ejection fraction of 30-35% Echo repeated given elevated troponin :EF showed 25% Reordered Limited echoon 10/19 continue to get volume off with Lasix, Cr now normal diuresing well no pulmonary rales, mild edema in legs (9) Urinary retention: continue luna, changed 09/29 for funguria (10) Acute anemia: Given a total of 9u PRBCs this admission. Hemglbin has been below 10, given that patient is likely to be discharged soon, will transfuse a 9th unit. Will continue to monitor. Hb stable last check, repeat tomorrow (11) Ischemic cardiomyopathy: Continue current medical management - ASA restarted, will need to restart plavix once platelets begin to rebound and bleeding risk has improved; Restarted plavix. (12) ICD (implantable cardioverter-defibrillator) in place: Stable (13) Diabetes mellitus, type 2: diabetic diet Novolog, lantus (14) Acute UTI (urinary tract infection): Fungal elements isolated. Intravenous caspofungin through October 05. Repeat UC - no fungal growth (15) DVT prophylaxis: heparin subq held for low platelets, SCDs high risk for bleeding, holding on medical prophylaxis Disposition: looking into LTACH vs acute rehab Subjective patient laying in bed, no distress at all c/o some back pain but otherwise no issues denied chest pain/pressure, denied dyspnea appetite is improving, moving bowels, luna in place appreciate ID note, needs all three antibiotics looking at going back to [facility], however, too expensive on the Caspofungin CM looking into LTACH or [facility] reviewed labs, Cr stable at 1.33, PAULA resolved making more than adequate urine, nephrology signed off Review of Systems Review of Systems: All systems reviewed & are unremarkable except as noted in HPI & below Constitutional: + fatigue and + weakness; no fever, no chills and no sweats Respiratory: no cough and no dyspnea Cardiovascular: no chest pain, no dyspnea, no dyspnea on exertion and no edema Musculoskeletal: + back pain (chronic, not worse than normal), + muscle weakness (diffuse, profound, cannot stand up even with assistance) and + muscle atrophy Physical Exam Constitutional: WD/WN, vitals as above + obese Eyes: PERRL, conjunctivae normal, anicteric sclerae ENMT: external ear and nose normal, oropharynx normal Neck: trachea midline, no thyromegaly Respiratory: normal respiratory effort, lungs clear to auscultation Cardiovascular: Rate/Rhythm: regular rate and regular rhythm Heart Sounds: normal S1 and normal S2; no murmur Vessels: no JVD Extremities: + edema (trace bilaterally) Gastrointestinal (Abdomen): normal bowel sounds, soft, nontender, no hepatosplenomegaly Musculoskeletal: Head/Neck/Chest: normocephalic and head atraumatic Spine: + limited thoraco-lumbar ROM (cannot move lower or upper back at all independently) Extremities: + abnormal strength (profound weakness in lower legs, 1-2 out of 5 strength bilaterally) and + muscle atrophy; no cyanosis and no clubbing Skin: no rashes, warm and dry Neurologic: patellar DTR's 2+ bilat, sensation intact and PERRL, EOMI, accommodation nl, no face palsy, no dysarthria Psychiatric: A+Ox3, euthymic affect Lymphatic: no cervical or axillary lymphadenopathy Results & Data Vital Signs (Past 12 Hours) Vital Signs Temp Pulse Pulse Resp BP Pulse Ox 10/20/18 11:18 36.1 C L 71 16 101/66 97 10/20/18 07:27 36.2 C L 78 16 118/72 99 Laboratory Results Laboratory Results - last 24 hr 10/19/18 10/19/18 10/20/18 17:29 20:57 06:19 Sodium 135 L Potassium 4.0 Chloride 99 Carbon Dioxide 31 Anion Gap 5.0 BUN 22 H Creatinine 1.33 Est Cr Clr Drug Dosing 63.8 Est GFR ( Amer) 64.6 Est GFR (Non-Af Amer) 55.7 BUN/Creatinine Ratio 16.8 Glucose 135 H POC Glucose 144 H 184 H Calcium 8.6 Phosphorus 2.3 L Albumin 2.2 L 10/20/18 10/20/18 08:11 12:13 Sodium Potassium Chloride Carbon Dioxide Anion Gap BUN Creatinine Est Cr Clr Drug Dosing Est GFR ( Amer) Est GFR (Non-Af Amer) BUN/Creatinine Ratio Glucose POC Glucose 159 H 135 H Calcium Phosphorus Albumin Medications Administered Current Inpatient Medications Acetaminophen (Tylenol) 1,000 mg PO Q8H PRN PRN Reason: MILD Pain Rating 1,2,3 Stop: 11/08/18 14:15 Last Admin: 10/17/18 06:34 Dose: 1,000 mg Documented by: [facility] ([facility]ab) [facility] Stop: 10/28/18 08:59 Last Admin: 10/20/18 10:31 Dose: 81 mg Documented by: Bisacodyl (Dulcolax) 10 mg [place] DAILY PRN PRN Reason: Constipation Stop: 11/08/18 14:15 Last Admin: 10/13/18 14:25 Dose: 10 mg Documented by: Clopidogrel [facility] ([facility]ix) [facility] Stop: 11/16/18 08:59 Last Admin: 10/20/18 09:24 Dose: 75 mg Documented by: Cyanocobalamin (Vitamin B-12) 1,000 mcg PO DAILY [facility] Stop: 10/28/18 08:59 Last Admin: 10/20/18 09:24 Dose: 1,000 mcg Documented by: Fentanyl (Duragesic) 25 mcg TD Q3D [facility] Stop: 10/29/18 08:44 Last Admin: 10/18/18 09:25 Dose: 25 mcg Documented by: Finasteride (Proscar) 5 mg PO QAM [facility] Stop: 10/28/18 08:59 Last Admin: 10/20/18 09:24 Dose: 5 mg Documented by: Heparin Sodium (Beef Lung) (Heparin Sod 10 Unit/Ml Flush) 5 ml FLUSH PRN PRN PRN Reason: Flush Stop: 10/28/18 00:27 Last Admin: 10/20/18 10:31 Dose: 5 ml Documented by: Heparin Sodium (Porcine) (Heparin Sodium (Porcine)) 5,000 units SQ Q8 [facility] Stop: 11/18/18 21:59 Last Admin: 10/20/18 06:08 Dose: 5,000 units Documented by: Hydromorphone HCl (Dilaudid) 0.5 - 1 mg IV Q3H PRN PRN Reason: Pain Stop: 10/23/18 14:15 Last Admin: 10/18/18 06:41 Dose: 1 mg Documented by: Hydroxyzine HCl (Vistaril) 25 mg PO Q8H PRN PRN Reason: Anxiety Stop: 11/08/18 14:15 Lorazepam (Ativan) 0.5 mg in 1 mls @ 0.5 mls/min IV Q8H PRN PRN Reason: Sedation/Anxiety Stop: 11/08/18 14:15 Promethazine HCl 12.5 mg/ (Sodium Chloride) 50.5 mls @ 204 mls/hr IV Q6H PRN PRN Reason: Nausea &/or Vomiting Stop: 11/08/18 14:15 Last Infusion: 10/10/18 01:01 Dose: Infused Documented by: Acetaminophen (Ofirmev) 1,000 mg in 100 mls @ 400 mls/hr IV Q8 PRN PRN Reason: MILD Pain Rating 1,2,3 Stop: 11/08/18 14:15 Last Infusion: 10/13/18 08:21 Dose: Infused Documented by: Ceftriaxone Sodium 2,000 mg/ (Dextrose) 70 mls @ 140 mls/hr IV DAILY KAYLYNN; Protocol Stop: 11/23/18 08:59 Last Infusion: 10/20/18 10:30 Dose: Infused Documented by: Caspofungin 50 mg/ Sodium (Chloride) 260 mls @ 250 mls/hr IV DAILY KAYLYNN; Protocol Stop: 10/23/18 08:59 Last Infusion: 10/20/18 10:31 Dose: Infused Documented by: Daptomycin 400 mg/ Syringe 8 mls @ 4 mls/min IV Q24H KAYLYNN; Protocol Stop: 11/25/18 15:59 Last Admin: 10/19/18 16:36 Dose: 4 mls/min Documented by: Sodium Chloride (Nss) 250 mls @ 15 mls/hr IV .[id number] PRN PRN Reason: For Transfusion Stop: 11/16/18 18:14 Furosemide 80 mg/ Syringe 8 mls @ 4 mls/min IV QAM [facility] Stop: 11/18/18 08:59 Last Admin: 10/20/18 09:23 Dose: 4 mls/min Documented by: Influenza Virus Vaccine Quadrival (Flu Vaccine, Do Not Administer) 1 ea N/A PRN PRN PRN Reason: Notification Stop: 11/08/18 14:15 Insulin Aspart (Novolog Flexpen) 0 units SC ACHS [facility] Stop: 11/09/18 16:29 Last Admin: 10/20/18 13:02 Dose: 3 units Documented by: Lorazepam (Ativan) 0.5 mg PO Q8H PRN PRN Reason: Sedation/Anxiety Stop: 11/08/18 14:15 Magnesium Oxide (Mag-Ox) 400 mg PO QAM [facility] Stop: 10/28/18 08:59 Last Admin: 10/20/18 09:24 Dose: 400 mg Documented by: Metoclopramide HCl (Reglan) 10 mg IV Q6H PRN PRN Reason: Nausea &/or Vomiting Stop: 11/08/18 14:15 Last Admin: 10/13/18 08:13 Dose: 10 mg Documented by: Metoprolol Succinate (Toprol Xl) 50 mg PO QAM [facility] Stop: 11/19/18 08:59 Last Admin: 10/20/18 09:23 Dose: 50 mg Documented by: Miscellaneous (Fentanyl Patch Check Placement) 1 ea N/A QS [facility] Stop: 11/14/18 15:59 Last Admin: 10/20/18 09:17 Dose: 1 ea Documented by: Miscellaneous (Fentanyl Patch Remove & Waste) 1 ea N/A Q3D [facility] Stop: 11/14/18 08:43 Last Admin: 10/18/18 09:08 Dose: 1 ea Documented by: Miscellaneous Information (Consult) 1 ea N/A UD PRN PRN Reason: Consult Stop: 11/06/18 15:38 Miscellaneous Information (Consult Glycemic Management Pharmacy) 1 ea N/A UD PRN PRN Reason: Consult Stop: 11/09/18 16:16 Ondansetron HCl (Zofran) 4 mg IV Q6H PRN PRN Reason: Nausea &/or Vomiting Stop: 11/08/18 14:15 Last Admin: 10/15/18 07:47 Dose: 4 mg Documented by: Ondansetron HCl (Zofran) 4 mg PO Q6H PRN PRN Reason: Nausea Stop: 11/08/18 14:15 Oxycodone HCl (Roxicodone Immediate Rel) 5 - 10 mg PO Q4H PRN PRN Reason: Moderate-Severe Pain Stop: 10/23/18 14:15 Last Admin: 10/20/18 06:34 Dose: 5 mg Documented by: Pneumococcal Polyvalent Vaccine (Pneumococcal Vacc, Do Not Administer) 1 ea N/A PRN PRN PRN Reason: Notification Stop: 11/08/18 14:15 Polyethylene Glycol (Miralax Powder Packet) 17 gm PO Q6 [facility] Stop: 11/09/18 05:59 Last Admin: 10/20/18 13:01 Dose: Not Given Documented by: Potassium Chloride (Klor-Con M20) 20 meq PO TID KAYLYNN Stop: 11/17/18 08:59 Last Admin: 10/20/18 13:03 Dose: 20 meq Documented by: Ranitidine HCl (Zantac) 150 mg PO QAM KAYLYNN Stop: 11/16/18 08:59 Last Admin: 10/20/18 09:22 Dose: 150 mg Documented by: Tamsulosin HCl (Flomax) 0.4 mg PO HS [facility] Stop: 10/27/18 20:59 Last Admin: 10/19/18 20:25 Dose: 0.4 mg Documented by: Vitamin D (Vitamin D3) 2,000 units PO DAILY KAYLYNN Stop: 10/28/18 08:59 Last Admin: 10/20/18 09:24 Dose: 2,000 units Documented by:
--- NOTE | 2018-10-20 13:55 | Pharmacy Report ---
PHA: Glycemic Control AP - Date of Service October 20, 2018 - Assessment & Plan The patient is currently receiving 12 units of insulin per day. BSGs ranging 111-184 mg/dl over the past 24hrs. * Correctional Insulin: Novolog Correction per scale ACHS Goal Range: Low 120 mg/dL - High 150 mg/dL Correction Factor: 20 mg/dL/unit * Prandial insulin: Per carb ratio of 1 unit per 7 grams CHO consumed BSGs continue to be well controlled, no changes needed to inpatient regimen at this time. Fasting a little elevated from yesterday, will reassess tomorrow for need for readdition of lantus. BSGs at night have been the most elevated of the day, can consider decrease in carb coverage for dinner. Pharmacy will continue to monitor patient daily and write orders per [facility] inpatient glycemic control protocol. * Please note that the plan above was derived based on current level of insulin resistance and hospital stress. These recommendations are appropriate for inpatient admission only. Plan of care upon discharge will need to be reassessed to avoid potential outpatient hypo/hyperglycemia.
[2018-10-20] MEDS: DAPTOmycin 400 MG in SYRINGE 0 ML IV SCH (15:54)
[2018-10-20] MEDS: TAMSULOSIN HCL 0.4 MG CAP PO SCH (21:25)
[2018-10-21] MEDS: POLYETHYLENE (MIRALAX) 17 GM PACK PO SCH ×5 (00:12→22:57)
[2018-10-21] MEDS: CHECK FENTANYL PATCH PLACEMENT SCH ×4 (00:12→22:54)
[2018-10-21] MEDS: ACETAMINOPHEN 500 MG TAB PO PRN (00:26)
[2018-10-21] MEDS: HEPARIN SOD 5,000 UNIT/0.5 ML VIAL SQ SCH ×3 (06:28→22:48)
[2018-10-21 06:33] LABS: Hematocrit (blood only) 32.8 % (42-52); Hemoglobin 10.3 g/dL (14.0-18.0); Mean Corpuscular Hgb Conc 31.4 g/dL (32-36); Mean Corpuscular Volume 90.9 fL (80-100); Mean Platelet Volume 9.1 fL (7.4-10.4); Platelet Count 239 K/uL (130-400); RDW Coefficient of Variation 17.8 % (11.5-14.5); RDW Standard Deviation 58.3 fL (36.4-46.3); Red Blood Count 3.61 M/uL (4.7-6.1); White Blood Count 7.36 K/uL (4.8-10.8)
[2018-10-21 06:45] LABS: INR 1.1 (0.9-1.1); Prothrombin Time 10.8 Seconds (9.0-12.0)
--- NOTE | 2018-10-21 08:55 | Pharmacy Report ---
Pharmacy Glycemic Short Note 2 - Date of Service October 21, 2018 - Glycemic Short BSG Results (Last 24 hours): 10/20/18 10/20/18 10/20/18 12:13 17:08 21:19 POC Glucose 135 H 138 H 199 H 10/21/18 08:25 POC Glucose 128 H OUTPATIENT ANTIDIABETIC REGIMEN: * Levemir 7 units BID * Novolog 10 units TID w/ meals + SSI * Metformin 1gm PO BID * A1c = 6.3% on 07/27/18 ASSESSMENT: * Adequate glycemic control over the past 24 hours, with one BSG above 180 mg/dL yesterday at HS. BSG's ranged 138-199 mg/dL * Fasting BSG elevated yesterday - will add back Levemir based on BSG but only qAM (instead of previously ordered BID) * Will decrease Novolog goal range to provide additional correctional insulin for most BSG's above 140 mg/dL. Will also tighten CHO ratio at dinner only has HS BSG has consistently been the highest of the day x multiple day trend * PAULA resolved. Scr stable PLAN FOR INPATIENT GLYCEMIC CONTROL: * Metformin on hold due to recent PAULA * Resume basal insulin: Levemir 5 units SC qAM (hold for BSG less than 110 mg/dL) * Bolus insulin * NovoLog per scale ACHS * Decrease Goal Range: Low 110 mg/dL - High 140 mg/dL * Correction Factor: 20 mg/dL/unit * Nutritional / Prandial: 7 g CHO/unit (tighten to 6 g CHO/unit at dinner check only)
[2018-10-21] MEDS: MAGNESIUM OXIDE 400 MG TAB PO SCH (09:05)
[2018-10-21] MEDS: CLOPIDOGREL BISULFATE 75 MG TAB PO SCH (09:05)
[2018-10-21] MEDS: CHOLECALCIFEROL 1,000 UNITS TAB PO SCH (09:05)
[2018-10-21] MEDS: CYANOCOBALAMIN 500 MCG TABLET (VITAMIN B-12) PO SCH (09:06)
[2018-10-21] MEDS: METOPROLOL SUCC 50MG EXT REL TAB PO SCH (09:06)
[2018-10-21] MEDS: ASPIRIN 81 MG ECTAB PO SCH (09:06)
[2018-10-21] MEDS: FINASTERIDE 5 MG TAB PO SCH (09:06)
[2018-10-21] MEDS: RANITIDINE HCL SYRUP 150 MG/10 ML UDC PO SCH (09:06)
[2018-10-21] MEDS: POTASSIUM CHLORIDE 20 MEQ TABCR PO SCH (09:07)
[2018-10-21] MEDS: FUROSEMIDE 80 MG in SYRINGE 0 ML IV SCH (09:07)
[2018-10-21] MEDS: INSULIN ASPART 100 UNITS/ML 3 ML PEN SC SCH ×5 (09:09→22:49)
[2018-10-21] MEDS: fentaNYL 25 MCG/HR TDSY TD SCH (09:14)
[2018-10-21] MEDS: CASPOFUNGIN 50 MG in SODIUM CHLORIDE 0.9% 250 ML IV SCH (09:15)
[2018-10-21] MEDS: cefTRIAXone SODIUM 2,000 MG in DEXTROSE 5% 50 ML IV SCH (09:15)
[2018-10-21] MEDS: INSULIN DETEMIR FLEXPEN/FLEX TOUCH 100 UNITS/ML 3ML SQ SCH (09:17)
[2018-10-21] MEDS: OXYCODONE HCL IR 5 MG TAB (IMMEDIATE RELEASE) PO PRN ×2 (11:08→18:21)
--- NOTE | 2018-10-21 15:39 | Hospitalist Progress Note ---
Date of Service October 21, 2018 Assessment & Plan (1) Third degree AV block: 10/11 - Mr. Cooper became bradycardic in a complete block and required pressor. His ICD was subsequently turned up to 80 from 40. His troponin reached 33. Per cardiology may be ischemia from the bradycardia or may be cardiac event, however given his current condition will not take him for cath. Pressors were stopped on 10/13. Transferred out of ICU on 10/14 Transferred to med surg on 10/17 vitals continue to be stable, both blood pressure and HR (2) Paraspinal abscess: had surgery on 09/10/18, changed Zyvox to daptomycin due to thrombocytopenia Lumbar CT 09/30 showing L2-L3 and L3-L4 discitis osteolytis - post op 10/09 - wound care per surgery - Epidural culture from surgery growing enterobacter and rajendra - will continue ceftriaxone daptomycin and caspofungin (10/18)- ID aware will continue antibiotics for 6 weeks from 10/09/18 last day of antibiotics and antifungals would be 11/20/18 may limit placement, looking into LTACH or acute rehab, discussing with CM (3) Acute kidney injury: PAULA on CKD. The patient's creatinine had been improving but began increasing after this most recent surgery and is now back up to 2.5 - nephrology consulted - likely ATN due to hypotension in perioperative period -Creatinine improved to 1.33 yesterday, PAULA resolved continue Lasix 40mg PO BID diuresing very well K stable (4) Thrombocytopenia: Platelets had dropped to 55k from 250k on admission but appear to be rebounding. Heparin antibodies were negative. Zyvox adverse effect includes thrombocytopenia. Discussed with ID changed to daptomycin platelets back up to normal, so likely it was due to Zyvox (5) Altered mental status: resolved metabolic encephalopathy due to PAULA on CKD, chronic pain, chronic infection, and on narcotics (6) Coagulase-negative staphylococcal infection: Wound culture 09/10 Daptomycin as above was on Vanco but stopped due to PAULA BC ng (7) Post-operative pain: Continue narcotic therapy for chronic pain management. Appreciate orthopedic consultation and management of the infection. Fentanyl patch Will continue to monitor mental status. May consider holding if patient becomes confused. (8) Chronic systolic heart failure: became volume overloaded due to ATN, this was not acute systolic heart failure Last echo 07/2018 - ejection fraction of 30-35% Echo repeated given elevated troponin :EF showed 25% continue to get volume off with Lasix, Cr now normal diuresing well, -2000mL today no pulmonary rales, mild edema in legs (9) Urinary retention: continue luna, changed 09/29 for funguria (10) Acute anemia: Given a total of 9u PRBCs this admission. Hemglbin has been below 10, given that patient is likely to be discharged soon, will transfuse a 9th unit. Will continue to monitor. Hb stable at 10 today (11) Ischemic cardiomyopathy: Continue current medical management - ASA restarted, will need to restart plavix once platelets begin to rebound and bleeding risk has improved; Restarted plavix. (12) ICD (implantable cardioverter-defibrillator) in place: Stable (13) Diabetes mellitus, type 2: diabetic diet Novolog, lantus (14) Acute UTI (urinary tract infection): Fungal elements isolated. Intravenous caspofungin through October 05. Repeat UC - no fungal growth (15) DVT prophylaxis: heparin subq held for low platelets, SCDs high risk for bleeding, holding on medical prophylaxis Disposition: looking into LTACH vs acute rehab Subjective patient in good spirits today says his back pain is slightly better today appetite is okay, eats about 50%, says he normally does not eat a lot at home complains that food is dry, can't use ketchup or salt due to diet restrictions no chest pain, no dyspnea reviewed labs, INR 1.1 and CBC stable, Hb is 10 discussed with CM, no plans for d/c today, being reviewed by [facility] for LTACH and [facility] Review of Systems Review of Systems: All systems reviewed & are unremarkable except as noted in HPI & below Musculoskeletal: + back pain and + muscle weakness (profound in legs) Physical Exam Constitutional: WD/WN, vitals as above + obese Eyes: PERRL, conjunctivae normal, anicteric sclerae ENMT: external ear and nose normal, oropharynx normal Neck: trachea midline, no thyromegaly Respiratory: normal respiratory effort, lungs clear to auscultation Cardiovascular: Rate/Rhythm: regular rate and regular rhythm Heart Sounds: normal S1 and normal S2; no murmur Vessels: no JVD Extremities: + edema (trace bilaterally) Gastrointestinal (Abdomen): normal bowel sounds, soft, nontender, no hepatosplenomegaly Musculoskeletal: Head/Neck/Chest: normocephalic and head atraumatic Spine: + limited thoraco-lumbar ROM (cannot move lower or upper back at all independently) Extremities: + abnormal strength (profound weakness in lower legs, 1-2 out of 5 strength bilaterally) and + muscle atrophy; no cyanosis and no clubbing Skin: no rashes, warm and dry Neurologic: patellar DTR's 2+ bilat, sensation intact and PERRL, EOMI, accommodation nl, no face palsy, no dysarthria Psychiatric: A+Ox3, euthymic affect Lymphatic: no cervical or axillary lymphadenopathy Results & Data Vital Signs (Past 12 Hours) Vital Signs Temp Pulse Resp BP Pulse Ox 10/21/18 15:09 36.2 C L 74 19 108/67 100 10/21/18 07:08 36.5 C 76 16 111/69 99 Laboratory Results Laboratory Results - last 24 hr 10/20/18 10/20/18 10/21/18 17:08 21:19 05:46 WBC 7.36 RBC 3.61 L Hgb 10.3 L Hct 32.8 L MCV 90.9 MCH 28.5 MCHC 31.4 L RDW Std Deviation 58.3 H RDW Coeff of Norbert 17.8 H Plt Count 239 MPV 9.1 PT INR POC Glucose 138 H 199 H 10/21/18 10/21/18 10/21/18 05:46 08:25 11:59 WBC RBC Hgb Hct MCV MCH MCHC RDW Std Deviation RDW Coeff of Norbert Plt Count MPV PT 10.8 INR 1.1 POC Glucose 128 H 179 H Medications Administered Current Inpatient Medications Acetaminophen (Tylenol) 1,000 mg PO Q8H PRN PRN Reason: MILD Pain Rating 1,2,3 Stop: 11/08/18 14:15 Last Admin: 10/21/18 00:26 Dose: 1,000 mg Documented by: Aspirin (Ecotrin Ectab) 81 mg PO QAM [facility] Stop: 10/28/18 08:59 Last Admin: 10/21/18 09:06 Dose: 81 mg Documented by: Bisacodyl (Dulcolax) 10 mg [place] DAILY PRN PRN Reason: Constipation Stop: 11/08/18 14:15 Last Admin: 10/13/18 14:25 Dose: 10 mg Documented by: Clopidogrel Bisulfate (Plavix) 75 mg PO QAM [facility]1983 Stop: 11/16/18 08:59 Last Admin: 10/21/18 09:05 Dose: 75 mg Documented by: Cyanocobalamin (Vitamin B-12) 1,000 mcg PO DAILY [facility] Stop: 10/28/18 08:59 Last Admin: 10/21/18 09:06 Dose: 1,000 mcg Documented by: Fentanyl (Duragesic) 25 mcg TD Q3D [facility]1983 Stop: 10/29/18 08:44 Last Admin: 10/21/18 09:14 Dose: 25 mcg Documented by: Finasteride (Proscar) 5 mg PO QAM [facility] Stop: 10/28/18 08:59 Last Admin: 10/21/18 09:06 Dose: 5 mg Documented by: Furosemide (Lasix) 40 mg PO BID17 [facility] Stop: 11/21/18 08:59 Heparin Sodium (Beef Lung) (Heparin Sod 10 Unit/Ml Flush) 5 ml FLUSH PRN PRN PRN Reason: Flush Stop: 10/28/18 00:27 Last Admin: 10/21/18 11:27 Dose: 5 ml Documented by: Heparin Sodium (Porcine) (Heparin Sodium (Porcine)) 5,000 units SQ Q8 [facility] Stop: 11/18/18 21:59 Last Admin: 10/21/18 14:34 Dose: 5,000 units Documented by: Hydromorphone HCl (Dilaudid) 0.5 - 1 mg IV Q3H PRN PRN Reason: Pain Stop: 10/23/18 14:15 Last Admin: 10/18/18 06:41 Dose: 1 mg Documented by: Hydroxyzine HCl (Vistaril) 25 mg PO Q8H PRN PRN Reason: Anxiety Stop: 11/08/18 14:15 Lorazepam (Ativan) 0.5 mg in 1 mls @ 0.5 mls/min IV Q8H PRN PRN Reason: Sedation/Anxiety Stop: 11/08/18 14:15 Promethazine HCl 12.5 mg/ (Sodium Chloride) 50.5 mls @ 204 mls/hr IV Q6H PRN PRN Reason: Nausea &/or Vomiting Stop: 11/08/18 14:15 Last Infusion: 10/10/18 01:01 Dose: Infused Documented by: Acetaminophen (Ofirmev) 1,000 mg in 100 mls @ 400 mls/hr IV Q8 PRN PRN Reason: MILD Pain Rating 1,2,3 Stop: 11/08/18 14:15 Last Infusion: 10/13/18 08:21 Dose: Infused Documented by: Ceftriaxone Sodium 2,000 mg/ (Dextrose) 70 mls @ 140 mls/hr IV DAILY KAYLYNN; Protocol Stop: 11/23/18 08:59 Last Infusion: 10/21/18 10:22 Dose: Infused Documented by: Caspofungin 50 mg/ Sodium (Chloride) 260 mls @ 250 mls/hr IV DAILY KAYLYNN; Protocol Stop: 10/23/18 08:59 Last Infusion: 10/21/18 10:44 Dose: Infused Documented by: Daptomycin 400 mg/ Syringe 8 mls @ 4 mls/min IV Q24H KAYLYNN; Protocol Stop: 11/25/18 15:59 Last Admin: 10/20/18 15:54 Dose: 4 mls/min Documented by: Sodium Chloride (Nss) 250 mls @ 15 mls/hr IV .[id number] PRN PRN Reason: For Transfusion Stop: 11/16/18 18:14 Furosemide 80 mg/ Syringe 8 mls @ 4 mls/min IV QAM [facility] Stop: 10/21/18 23:59 Last Admin: 10/21/18 09:07 Dose: 4 mls/min Documented by: Influenza Virus Vaccine Quadrival (Flu Vaccine, Do Not Administer) 1 ea N/A PRN PRN PRN Reason: Notification Stop: 11/08/18 14:15 Insulin Aspart (Novolog Flexpen) 0 units SC TID@0730,1130,2100 [facility] Stop: 11/20/18 07:29 Last Admin: 10/21/18 13:53 Dose: 6 units Documented by: Insulin Aspart (Novolog Flexpen) 0 units SC DAILY@1630 [facility] Stop: 11/20/18 16:29 Insulin Detemir (Levemir Flextouch) 0 units SQ QAM KAYLYNN; Protocol Stop: 11/20/18 08:59 Last Admin: 10/21/18 09:17 Dose: 5 units Documented by: Lorazepam (Ativan) 0.5 mg PO Q8H PRN PRN Reason: Sedation/Anxiety Stop: 11/08/18 14:15 Magnesium Oxide (Mag-Ox) 400 mg PO QAM [facility] Stop: 10/28/18 08:59 Last Admin: 10/21/18 09:05 Dose: 400 mg Documented by: Metoclopramide HCl (Reglan) 10 mg IV Q6H PRN PRN Reason: Nausea &/or Vomiting Stop: 11/08/18 14:15 Last Admin: 10/13/18 08:13 Dose: 10 mg Documented by: Metoprolol Succinate (Toprol Xl) 50 mg PO QAM [facility] Stop: 11/19/18 08:59 Last Admin: 10/21/18 09:06 Dose: 50 mg Documented by: Miscellaneous (Fentanyl Patch Check Placement) 1 ea N/A QS [facility] Stop: 11/14/18 15:59 Last Admin: 10/21/18 09:08 Dose: 1 ea Documented by: Miscellaneous (Fentanyl Patch Remove & Waste) 1 ea N/A Q3D [facility] Stop: 11/14/18 08:43 Last Admin: 10/21/18 09:10 Dose: 1 ea Documented by: Miscellaneous Information (Consult) 1 ea N/A UD PRN PRN Reason: Consult Stop: 11/06/18 15:38 Miscellaneous Information (Consult Glycemic Management Pharmacy) 1 ea N/A UD PRN PRN Reason: Consult Stop: 11/09/18 16:16 Ondansetron HCl (Zofran) 4 mg IV Q6H PRN PRN Reason: Nausea &/or Vomiting Stop: 11/08/18 14:15 Last Admin: 10/15/18 07:47 Dose: 4 mg Documented by: Ondansetron HCl (Zofran) 4 mg PO Q6H PRN PRN Reason: Nausea Stop: 11/08/18 14:15 Oxycodone HCl (Roxicodone Immediate Rel) 5 - 10 mg PO Q4H PRN PRN Reason: Moderate-Severe Pain Stop: 10/23/18 14:15 Last Admin: 10/21/18 11:08 Dose: 10 mg Documented by: Pneumococcal Polyvalent Vaccine (Pneumococcal Vacc, Do Not Administer) 1 ea N/A PRN PRN PRN Reason: Notification Stop: 11/08/18 14:15 Polyethylene Glycol (Miralax Powder Packet) 17 gm PO Q6 [facility] Stop: 11/09/18 05:59 Last Admin: 10/21/18 13:56 Dose: 17 gm Documented by: Potassium Chloride (Klor-Con M20) 20 meq PO DAILY KAYLYNN Stop: 11/20/18 08:59 Last Admin: 10/21/18 09:07 Dose: 20 meq Documented by: Ranitidine HCl (Zantac) 150 mg PO QAM KAYLYNN Stop: 11/16/18 08:59 Last Admin: 10/21/18 09:06 Dose: 150 mg Documented by: Tamsulosin HCl (Flomax) 0.4 mg PO HS KAYLYNN Stop: 10/27/18 20:59 Last Admin: 10/20/18 21:25 Dose: 0.4 mg Documented by: Vitamin D (Vitamin D3) 2,000 units PO DAILY KAYLYNN Stop: 10/28/18 08:59 Last Admin: 10/21/18 09:05 Dose: 2,000 units Documented by:
[2018-10-21] MEDS: DAPTOmycin 400 MG in SYRINGE 0 ML IV SCH (15:51)
[2018-10-21] MEDS ORDERED: INSULIN ASPART 100 UNITS/ML 3 ML PEN SC SCH (16:30)
[2018-10-21] MEDS: TAMSULOSIN HCL 0.4 MG CAP PO SCH (20:14)
[2018-10-22] MEDS: POLYETHYLENE (MIRALAX) 17 GM PACK PO SCH ×2 (05:25→12:01)
[2018-10-22] MEDS: HEPARIN SOD 5,000 UNIT/0.5 ML VIAL SQ SCH ×2 (05:27→13:22)
[2018-10-22 05:52] LABS: Hematocrit (blood only) 30.6 % (42-52); Mean Corpuscular Hgb Conc 32.7 g/dL (32-36); Mean Corpuscular Volume 89.7 fL (80-100); Mean Platelet Volume 8.7 fL (7.4-10.4); Platelet Count 216 K/uL (130-400); RDW Coefficient of Variation 17.3 % (11.5-14.5); RDW Standard Deviation 56.6 fL (36.4-46.3); Red Blood Count 3.41 M/uL (4.7-6.1); White Blood Count 6.82 K/uL (4.8-10.8)
[2018-10-22 06:31] LABS: BUN Creatinine Ratio 17.8 (10-20); Calcium 8.4 mg/dl (8.5-10.1); Creatinine Clr Calc Pharmacy 65.7 ml/min; Est GFR (Non-African American) 57.8; Potassium 4.2 mmol/L (3.5-5.1)
[2018-10-22] MEDS: FINASTERIDE 5 MG TAB PO SCH (08:46)
[2018-10-22] MEDS: ASPIRIN 81 MG ECTAB PO SCH (08:46)
[2018-10-22] MEDS: POTASSIUM CHLORIDE 20 MEQ TABCR PO SCH (08:46)
[2018-10-22] MEDS: CYANOCOBALAMIN 500 MCG TABLET (VITAMIN B-12) PO SCH (08:46)
[2018-10-22] MEDS: CLOPIDOGREL BISULFATE 75 MG TAB PO SCH (08:46)
[2018-10-22] MEDS: METOPROLOL SUCC 50MG EXT REL TAB PO SCH (08:46)
[2018-10-22] MEDS: CHOLECALCIFEROL 1,000 UNITS TAB PO SCH (08:46)
[2018-10-22] MEDS: CHECK FENTANYL PATCH PLACEMENT SCH (08:47)
[2018-10-22] MEDS: MAGNESIUM OXIDE 400 MG TAB PO SCH (08:47)
[2018-10-22] MEDS: RANITIDINE HCL SYRUP 150 MG/10 ML UDC PO SCH (08:47)
[2018-10-22] MEDS ORDERED: FUROSEMIDE 40 MG TAB PO SCH (09:00)
[2018-10-22] MEDS: INSULIN DETEMIR FLEXPEN/FLEX TOUCH 100 UNITS/ML 3ML SQ SCH (09:37)
[2018-10-22] MEDS: INSULIN ASPART 100 UNITS/ML 3 ML PEN SC SCH ×2 (09:38→13:25)
[2018-10-22] MEDS: CASPOFUNGIN 50 MG in SODIUM CHLORIDE 0.9% 250 ML IV SCH (10:11)
[2018-10-22] MEDS: cefTRIAXone SODIUM 2,000 MG in DEXTROSE 5% 50 ML IV SCH (11:17)
[2018-10-22] MEDS: OXYCODONE HCL IR 5 MG TAB (IMMEDIATE RELEASE) PO PRN (12:02)
[2018-10-22 12:32] VITALS: BP 110/66; TEMP 97.3; O2SAT 97
--- NOTE | 2018-10-22 12:35 | Orthopedic Progress Note ---
Date of Service October 22, 2018 Assessment & Plan (1) Weakness of lower extremity: At this time we will continue transfers as tolerated. Hope to transition to rehab facility soon. Present on Admission?: Yes Subjective Patient is in the chair at the bedside. Still significant quad deficits. He does appear comfortable. Physical Exam Physical Exam: On exam he is in the chair at the bedside. Again marked quad deficits. He does appear comfortable. Results & Data Vital Signs (Past 12 Hours) Vital Signs Temp Pulse Resp BP Pulse Ox 10/22/18 12:28 36.3 C L 80 22 110/66 97 10/22/18 08:00 36.6 C 78 22 107/68 99
[2018-10-22 13:47] VITALS: PULSE 82
--- NOTE | 2018-10-22 15:30 | Discharge Summary ---
Date of Service October 22, 2018 Admission HPI Per Admitting Provider 67 yo male well known to our service who presents with altered mental status from [facility]. The patient has long history of lumbar spinal stenosis that was treated with decompression and fusion. He subsequently developed as Serratia infection identified on 08/11/18 and was treated with IV Ertapenem. He returned to the hospital due to refractory pain and signs of infection. He was taken to the OR on 09/10/18 for exploration and he was found to have paraspinal abscess. Fluid cultured and grew Coag negative staph. All hardware was removed. He was treated with Daptomycin IV and then changed to Vancomycin IV and discharged to [facility]. His provides the more recent history. He was discharged to [facility] on 09/16/18 on Vancomycin IV for the paraspinal abscess. He was progressing very slowly, he was requiring 3-4 people just to help get him out of bed. She said he constantly has pain, winces, acts like muscles are spasming. She says he is never going to improve if he has pain like this, she cannot understand why his pain is not controlled. His luna catheter has remained in placed for urinary retention. He had a decent appetite for the first week but his appetite has gotten worse past few days. No fever or chills noted. He followed up with Dr. Ndiaye. Routine lab work for being on Vancomycin showed a Cr of 2.8, it had been 0.5 prior to discharge on 09/16. The vancomycin was stopped, changed to Zyvox PO BID. Elevated Cr treated with IV fluids at [facility], mild improvement to 2.5, still making urine. Over the past two days he has become more lethargic. He is having some hallucinations, having conversations with family members, thinking he sees them. Since he appeared to be getting worse and Cr was still elevated he was sent to ED for evaluation. Admission Exam Per Admitting Provider Physical Exam Constitutional: WD/WN, vitals as above + obese Eyes: PERRL, conjunctivae normal, anicteric sclerae ENMT: external ear and nose normal, oropharynx normal Neck: trachea midline, no thyromegaly Respiratory: normal respiratory effort, lungs clear to auscultation Cardiovascular: Rate/Rhythm: regular rate and regular rhythm Heart Sounds: normal S1 and normal S2; no murmur Vessels: no JVD Extremities: + edema (trace bilaterally) Gastrointestinal (Abdomen): normal bowel sounds, soft, nontender, no hepatosplenomegaly Musculoskeletal: Head/Neck/Chest: normocephalic and head atraumatic Spine: + limited thoraco-lumbar ROM (cannot move lower or upper back at all independently) Extremities: + abnormal strength (profound weakness in lower legs, 1-2 out of 5 strength bilaterally) and + muscle atrophy; no cyanosis and no clubbing Skin: no rashes, warm and dry Neurologic: patellar DTR's 2+ bilat, sensation intact and PERRL, EOMI, accommodation nl, no face palsy, no dysarthria Psychiatric: A+Ox3, euthymic affect Lymphatic: no cervical or axillary lymphadenopathy Principal Diagnosis Paraspinal abscess, Enterobacter, coag negative staph, fungal infection Discharge Exam Constitutional WD/WN, vitals as above + obese Eyes PERRL, conjunctivae normal, anicteric sclerae ENMT external ear and nose normal, oropharynx normal Neck trachea midline, no thyromegaly Respiratory normal respiratory effort, lungs clear to auscultation Cardiovascular Rate/Rhythm: regular rate and regular rhythm Heart Sounds: normal S1 and normal S2; no murmur Vessels: no JVD Extremities: no edema Gastrointestinal (Abdomen) normal bowel sounds, soft, nontender, no hepatosplenomegaly Musculoskeletal Head/Neck/Chest: normocephalic and head atraumatic Spine: + limited thoraco-lumbar ROM (cannot move lower or upper back at all independently) Extremities: + abnormal strength (profound weakness in lower legs, 1-2 out of 5 strength bilaterally) and + muscle atrophy; no cyanosis and no clubbing Skin no rashes, warm and dry Neurologic patellar DTR's 2+ bilat, sensation intact and PERRL, EOMI, accommodation nl, no face palsy, no dysarthria Psychiatric A+Ox3, euthymic affect Lymphatic no cervical or axillary lymphadenopathy Discharge Data Allergies Allergy/AdvReac Type Severity Reaction Status Date / Time No Known Allergies Allergy Verified 08/01/18 15:19 Consultations 09/27/18 15:38 ED Decision to Admit Stat 09/27/18 17:28 Consult Case Management - Discharge Planning Routine Consult Infectious Diseases Routine Consult Nephrology Routine Consult Pain Management Stat 09/29/18 07:28 Consult Infectious Diseases Routine 09/29/18 09:11 Consult Orthopedic Surgery Routine 10/08/18 14:21 Consult Cardiology Routine 10/09/18 14:16 Consult Case Management - Discharge Planning Routine Consult Inbound Customer Service Agent Routine 10/22/18 14:18 Burn CD for patient Stat Procedures Performed Operation Date: 10/09/18 08:15 Actual Procedures p L1-L5 Lumbar Fusion with Instrumentation, Application of Bone Morphogenetic Protein, Use of Stimulan Antibiotic Beads(Not Applicable) - Bong Morales, Ordered Studies 09/27/18 11:29 CT head/brain wo con Stat 09/27/18 12:05 CT abd pelvis wo con Stat 09/30/18 09:11 CT lumbar spine wo con Routine 10/09/18 08:15 FL fluoroscopy <1hr Routine FL lumbar spine 2-3V Routine 10/12/18 19:18 US point of care ultrasound Urgent 10/14/18 10:45 FL video swallow Routine Hospital Course (1) Paraspinal abscess: had surgery on 09/10/18, changed Zyvox to daptomycin due to thrombocytopenia Lumbar CT 09/30 showing L2-L3 and L3-L4 discitis osteolytis - repeat irrigation, debridement on 10/09, went to ICU afterwards - wound care per surgery - Epidural culture from surgery growing enterobacter and rajendra - ceftriaxone daptomycin and caspofungin (10/18)- ID aware will continue antibiotics for 6 weeks from 10/09/18 last day of antibiotics and antifungals would be 11/20/18 will go to [facility] in [place] for 6 weeks to complete antibiotics/antifungals and intense physical therapy/rehab (2) Third degree AV block: 10/11 - Mr. Cooper became bradycardic in a complete block and required pressor. His ICD was subsequently turned up to 80 from 40. His troponin reached 33. Per cardiology may be ischemia from the bradycardia or may be cardiac ev ent, however given his current condition will not take him for cath. Pressors were stopped on 10/13. Transferred out of ICU on 10/14 Transferred to med surg on 10/17, stable every since transfer vitals continue to be stable, both blood pressure and HR (3) Acute kidney injury: PAULA on CKD. The patient's creatinine had been improving but began increasing after this most recent surgery and is now back up to 2.5 - nephrology consulted - likely ATN due to hypotension in perioperative period -Creatinine improved to 1.3, PAULA resolved continue Lasix 40mg PO daily as he is euvolemic diuresing very well K stable (4) Thrombocytopenia: Platelets had dropped to 55k from 250k on admission but appear to be rebounding. Heparin antibodies were negative. Zyvox adverse effect includes thrombocytopenia. Discussed with ID changed to daptomycin platelets back up to normal, so likely it was due to Zyvox (5) Altered mental status: resolved metabolic encephalopathy due to PAULA on CKD, chronic pain, chronic infection, and on narcotics seems to have good pain control on Fentanyl patch with limited effects on mentation (6) Coagulase-negative staphylococcal infection: Wound culture 09/10 Daptomycin as above was on Vanco but stopped due to PAULA BC ng (7) Post-operative pain: Continue narcotic therapy for chronic pain management. Appreciate orthopedic consultation and pain management continue Fentanyl patch 25mcg, can use Oxycodone for breakthrough (8) Chronic systolic heart failure: became volume overloaded due to ATN, this was not acute systolic heart failure Last echo 07/2018 - ejection fraction of 30-35% Echo repeated given elevated troponin :EF showed 25% continue to get volume off with Lasix, Cr now normal diuresing well, removed 15 liters since the patient rebounded from ATN no pulmonary rales, minimal edema in legs (9) Urinary retention: continue luna, changed 09/29 for funguria (10) Acute anemia: Given a total of 9u PRBCs this admission. Hb stable at 10 for several days (11) Ischemic cardiomyopathy: Continue current medical management - ASA restarted, will need to restart plavix once platelets begin to rebound and bleeding risk has improved; Restarted plavix. (12) ICD (implantable cardioverter-defibrillator) in place: Stable (13) Diabetes mellitus, type 2: diabetic diet Novolog, lantus (14) Acute UTI (urinary tract infection): Fungal elements isolated. Intravenous caspofungin through October 05. Repeat UC - no fungal growth (15) DVT prophylaxis: heparin subq held for low platelets, SCDs high risk for bleeding, holding on medical prophylaxis Disposition: [facility] in [place] Total Time Total Time Spent Total Time Spent (In Minutes): 40 minutes Total Time Includes: Examination of the Patient, Discharge Planning, Medication Reconciliation and Communication With Other Providers (discussed with provider, Dr. Chow, at [facility]) Discharge Plan Discharge Items Patient Disposition: Trans Resident Long-Term Care Reason For Visit: EPIDURAL ABSCESS Discharge Diagnosis: Epidural abscess Chronic systolic heart failure PAULA, resolved Bradycardia Condition: Good Discharge Goals: Improve disease control, Improve function and Increase independence Activity: Per 'Additional Instructions' section Activity Comment: weight bear as tolerated, OOB to chair, currently requiring l ift Lifting: No more than 5 pounds Bathing: Keep incision dry Exercise/Sports: Gradually increase as tolerated Non-emergency contact: Primary Care Provider Call non-emergency contact if: you have any medication questions, your symptoms worsen and you have a fever Follow-up/Referrals: Sheridan,Philip [Primary Care Provider] - Diet: Carb Consistent or DM2 and Heart Healthy Addtl Provider Instructions: Medications: - CEFTRIAXONE: 2gm IV daily, 6 weeks total, last dose will be 11/20/18 - DAPTOMYCIN: 400mg IV daily, 6 weeks total, last dose will be 11/20/18 - CASPOFUNGIN: 50mg IV daily, 6 weeks total, last dose will be 11/20/18 - METOPROLOL: dose was reduced to 50mg from 100mg during this staby Paraspinal, epidural abscess: numerous surgeries over the past few months, infection difficult to eradicate had hardware removed in September had surgery on 09/10/18, changed Zyvox to daptomycin due to thrombocytopenia Lumbar CT 09/30 showing L2-L3 and L3-L4 discitis osteolytis - repeat surgery on 10/09 Epidural culture from surgery growing enterobacter and rajendra - will continue ceftriaxone daptomycin and caspofungin (10/18)- ID aware will continue antibiotics for 6 weeks from 10/09/18 last day of antibiotics and antifungals would be 11/20/18 transfer to [facility] today complications from surgery on 10/09 - required ICU admission for bradycardia and hypotension post op treated with dopamine, pressors weaned off by 10/13, ICD HR changed from 40 to 80 doing well - troponin did rise to 33, no chest pain or EKG changes, evaluated by interventional cardiology known severe CAD and ischemic cardiomyopathy no major changes on echo, still with EF 25% no heart cath performed, too high risk, attributed rise in troponin to bradycardia and hypotension - PAULA, likely ATN due to hypotension, Cr mann to 2.5 resolved, Cr is 1.3, making excellent amount of urine, was on Lasix 80mg IV daily changed to Lasix 40mg PO BID, now on 40mg PO daily which is home dose - thrombocytopenia: attributed to being on Zyvox initially, the platelets returned to normal on Daptomycin - post op blood loss anemia: required 9 units total, Hb has been stable at 10 for over 5 days, no signs of bleeding has been on Plavix for over a week Urinary retention: ongoing issue, has been followed by urology given multiple surgeries and immobility they have elected to keep catheter could be considered for luna removal in next few weeks if he continues to progress and get stronger continue Flomax and Finasteride Prescriptions: New metoprolol succinate 50 mg Tablet Extended Release 24 Hr 50 mg PO QAM 30 Days Qty: 30 RF: 0 fentanyl 25 mcg/hr Patch 72 Hour 25 mcg transdermal Q3D 15 Days Qty: 5 RF: 0 oxycodone 5 mg Tablet 5 - 10 mg PO Q4H PRN (Reason: pain) 15 Days Qty: 40 RF: 0 Continued magnesium oxide 400 mg Capsule 400 mg PO QAM Qty: 0 RF: 0 omega 1-iwf-[id number]-fish oil [Fish Oil] 1,000 mg (120 mg-180 mg) Capsule 1 cap PO QAM Qty: 0 RF: 0 atorvastatin 40 mg Tablet 40 mg PO HS Qty: 0 RF: 0 finasteride [Proscar] 5 mg Tablet 5 mg PO QAM Qty: 0 RF: 0 coenzyme Q10 100 mg Capsule 100 mg PO QAM Qty: 0 RF: 0 insulin aspart U-100 100 unit/mL Insulin Pen 10 unit SC TIDM Qty: 0 RF: 0 vitamin B complex Tablet 1 tab PO QAM RF: 0 multivitamin Tablet 1 tab PO QAM RF: 0 ondansetron HCl 4 mg Tablet 4 mg PO Q6 PRN (Reason: Vomiting) RF: 0 insulin lispro [Humalog U-100 Insulin] 100 unit/mL Solution 1 sliding scale dose SUBCUT USEASDIRECTD RF: 0 clopidogrel 75 mg Tablet 75 mg PO QAM Qty: 30 RF: 0 aspirin [Ecotrin Low Strength] 81 mg Tablet,Delayed Release (Dr/Ec) 81 mg PO QAM Qty: 30 RF: 0 tamsulosin 0.4 mg Capsule 0.4 mg PO HS Qty: 3 RF: 0 sennosides-docusate sodium [Senna with Docusate Sodium] 8.6-50 mg Tablet 2 tab PO BID Qty: 3 RF: 0 furosemide 40 mg tablet 40 mg PO DAILY Qty: 30 RF: 0 acetaminophen 325 mg Tablet 650 mg PO Q6H PRN (Reason: Pain) RF: 0 cyanocobalamin (vitamin B-12) [Vitamin B-12] 1,000 mcg Tablet 1,000 mcg PO DAILY RF: 0 magnesium hydroxide [Milk of Magnesia] 400 mg/5 mL Suspension 30 ml PO DAILY PRN (Reason: Constipation) RF: 0 bisacodyl [Dulcolax (bisacodyl)] 10 mg Suppository 10 mg VA DAILY PRN (Reason: Constipation) RF: 0 Glucagon Emergency Kit (human) 1 mg Recon Soln 1 dose IM DIRECTED PRN (Reason: Hypoglycemia) RF: 0 cholecalciferol (vitamin D3) [Vitamin D3] 1,000 unit Capsule 2,000 units PO DAILY RF: 0 Fleet Pediatric 9.5-3.5 gram/59 mL Enema 118 ml VA DAILY PRN (Reason: Constipation) RF: 0 insulin detemir U-100 100 unit/mL (3 mL) insulin pen 7 unit subcut BID RF: 0 potassium chloride [Klor-Con M20] 20 mEq Tablet,Er Particles/Crystals 40 meq PO DAILY Qty: 30 RF: 0 Discontinued losartan 50 mg Tablet 50 mg PO QAM Qty: 0 RF: 0 metoprolol succinate [Toprol XL] 100 mg Tablet Extended Release 24 Hr 100 mg PO QAM Qty: 0 RF: 0 linezolid [Zyvox] 600 mg Tablet 600 mg PO Q12H RF: 0 oxycodone [OxyContin] 10 mg Tablet,Oral Only,Ext.Rel.12 Hr 10 mg PO Q12H RF: 0 metformin 1,000 mg Tablet 1,000 mg PO BID RF: 0 Insta-Glucose 24 gram/31 gram Gel 1 dose PO RF: 0 oxycodone 5 mg Tablet 5 mg PO Q6 PRN (Reason: severe pain) Qty: 15 RF: 0 lidocaine 4 % adhesive patch,medicated 1 patch TOP DAILY Qty: 1 RF: 0 Stand-Alone Forms: [facility] Discharge Orders: Discharge Order (Routine); Ordered 10/22/18 Ordered By: Tai Burr Admission Data Admit Date/Time: 09/27/18 16:16 Attending Provider: Tai Burr Admit Provider: Tai Burr Primary Care Provider: Philip Braxton Other Providers: Robert Ndiaye ; Tai Burr ; Winter Loredo ; Ricky Cunningham ; Serenity Chen ; Bong Morales ; Zeke Woodson ; Jose Mazariegos Service: Medical Other Interventions: Discharge Summary Assessment (RN) Last Done: 10/22/18 13:41 DC Date/Time DO NOT enter until pt leaves facility: 10/22/18 14:42
== END 2018-10-22 14:42 | DRG 856 ==
LOC: ED 10:58 → SUATTDRO 16:16 → 2E 16:16 → 3W 09-30 15:00 → 1E 10-09 13:42 → 2E 10-14 14:27 → 3N 10-17 18:46

== ENCOUNTER 2018-12-01 17:39 | Inpatient (IN) ==
[2018-12-01] MEDS ORDERED: SODIUM CHLORIDE 0.9% 1000ML 1,000 ML IV ONE (17:54)
--- NOTE | 2018-12-01 18:06 | XRay Report ---
XR chest 1V portable CLINICAL HISTORY: Sepsis dyspnea COMPARISON STUDY: 10/13/2018 FINDINGS: Moderate cardiomegaly. Permanent cardiac pacemaker/fibrillator. Improved pulmonary edema compared to the prior study. Residual infiltrative process right base. IMPRESSION: 1. Moderate cardiomegaly with components of pulmonary vascular congestion/mild pulmonary edema. 2. These findings are improved compared to the prior study. 3. Residual infiltrative process right lung base. The above report was generated using voice recognition software. It may contain grammatical, syntax or spelling errors. Electronically signed by: Samuel Lindo M.D. 12/01/2018 6:04 PM
[2018-12-01 18:42] LABS: Basophils # (auto) 0.04 K/uL (0-0.2); Basophils % (auto) 0.5 %; Eosinophils # (auto) 0.03 K/uL (0-0.5); Eosinophils % (auto) 0.4 %; Hematocrit (blood only) 22.4 % (42-52); Hemoglobin 7.4 g/dL (14.0-18.0); Immature Granulocytes # (auto) 0.08 K/uL (0.00-0.02); Lymphocytes # (auto) 0.48 K/uL (1.2-3.4); Lymphocytes % (auto) 5.7 %; Mean Corpuscular Volume 91.4 fL (80-100); Mean Platelet Volume 9.2 fL (7.4-10.4); Monocytes # (auto) 1.26 K/uL (0.11-0.59); Monocytes % (auto) 15.1 %; Neutrophils # (auto) 6.48 K/uL (1.4-6.5); Neutrophils % (auto) 77.3 %; Platelet Count 190 K/uL (130-400); RDW Coefficient of Variation 17.7 % (11.5-14.5); RDW Standard Deviation 58.1 fL (36.4-46.3); Red Blood Count 2.45 M/uL (4.7-6.1); White Blood Count 8.37 K/uL (4.8-10.8)
[2018-12-01 18:45] LABS: Base Excess VBG -2.9 mEq/L; HCO3 VBG 21 mmol/L; PCO2 VBG 32 mmHg (38-50); PO2 VBG 29 mmHg; pH VBG 7.43 (7.36-7.41)
[2018-12-01 18:46] LABS: Oxygen Saturation VBG < 60.0 %
[2018-12-01 18:52] LABS: iSTAT Creatinine 1.9 mg/dl (0.6-1.3); iSTAT Hemoglobin 7.5 g/dl (14.0-18.0); iSTAT Ionized Calcium 1.06 mmol/l (1.12-1.32); iSTAT Potassium 5.5 mEq/L (3.3-5.0)
[2018-12-01 18:55] LABS: INR 1.1 (0.9-1.1); Partial Thromboplastin Time 27.4 Seconds (21.0-31.0); Prothrombin Time 10.9 Seconds (9.0-12.0)
[2018-12-01 19:00] LABS: Albumin Level 2.8 gm/dl (3.4-5.0); BUN Creatinine Ratio 19.4 (10-20); Calcium 8.4 mg/dl (8.5-10.1); Creatinine Clr Calc Pharmacy 41.1 ml/min; Est GFR (African American) 38.5; Est GFR (Non-African American) 33.2; Potassium 5.5 mmol/L (3.5-5.1)
[2018-12-01 19:02] LABS: Polychromasia 1+
--- NOTE | 2018-12-01 19:02 | CT Scan Report ---
CT head/brain wo con CT DOSE: HISTORY: Trauma fall TECHNIQUE: Multiaxial CT images of the head were performed without the use of intravenous contrast. A dose lowering technique was utilized adhering to the principles of ALARA. Comparison: 09/27/2018 Findings: The paranasal sinuses and mastoid air cells are clear. The calvarium and skull base are int act. The ventricles and sulci are within normal limits. There is no mass, hematoma, midline shift, or acute infarct. Minimal residual mucosal thickening right mastoid air cells. Impression: No acute intracranial abnormality. Chronic changes as noted. The above report was generated using voice recognition software. It may contain grammatical, syntax or spelling errors. Electronically signed by: Samuel Lindo M.D. 12/01/2018 6:59 PM
[2018-12-01 19:03] LABS: Albumin Globulin Ratio 0.7 (0.9-2); Bilirubin,Total 0.7 mg/dl (0.2-1); Globulin 3.9 gm/dl (2.5-4.0); Total Protein 6.7 gm/dl (6.4-8.2)
--- NOTE | 2018-12-01 19:03 | CT Scan Report ---
CT cervical spine wo con CT DOSE: 1074.04 mGy.cm HISTORY: Trauma fall TECHNIQUE: Multiaxial CT images of the cervical spine were performed and reformatted in the sagittal and coronal plane without the use of contrast. A dose lowering technique was utilized adhering to th e principles of ALARA. COMPARISON: 09/03/2018 FINDINGS: Postoperative changes as noted previously. No acute posttraumatic abnormality. Vertebral mendel dy stature is unremarkable. C1-C2 complex is intact. IMPRESSION: Chronic and postoperative change. No acute process. The above report was generated using voice recognition software. It may contain grammatical, syntax or spelling errors. Electronically signed by: Samuel Lindo M.D. 12/01/2018 7:01 PM
--- NOTE | 2018-12-01 19:05 | CT Scan Report ---
CT abd pelvis wo con CT DOSE: 1108.44 mGy.cm HISTORY: Trauma. Pain. fall TECHNIQUE: Multiaxial CT images of the abdomen and pelvis were performed without contrast. A dose lo wering technique was utilized adhering to the principles of ALARA. COMPARISON STUDY: 09/27/2018 FINDINGS: Bilateral pleural effusions mildly increased in the prior study. Mild cardiomegaly. Liver spleen and pancreas are grossly unremarkable. A horseshoe kidney is again noted. Nonobstructive bowel pattern. Mild bladder wall thickening unchanged in the prior study. No free flui d within the pole pelvic cul-de-sac. No acute posttraumatic bony change. Stable postoperative changes involving the lumbar spine. IMPRESSION: 1. Bilateral pleural effusions mildly increased in volume from the prior study. 2. Moderate cardiomegaly. 3. No acute process specifically of the abdomen or pelvis. The above report was generated using voice recognition software. It may contain grammatical, syntax or spelling errors. Electronically signed by: Samuel Lindo M.D. 12/01/2018 7:04 PM
[2018-12-01 19:12] LABS: C Reactive Protein 2.91 mg/dl (0-0.29); Troponin I 7.31 ng/ml (0-0.045)
[2018-12-01] MEDS ORDERED: SODIUM CHLORIDE 0.9% 250 ML IV PRN ×2 (19:17→23:42)
[2018-12-01 20:39] LABS: Appearance Urine Clear (Clear); Bacteria Urine Automated Negative (Negative); Blood Urine Negative (Negative); Color Urine Dark Yellow; Glucose Urine UA Negative (Negative); Ketones Urine Trace (Negative); Leukocyte Esterase Urine Trace (Negative); Nitrite Urine Negative (Negative); Protein Urine Trace (Negative); Specific Gravity Urine 1.026 (1.000-1.030); Urobilinogen Urine Negative (Negative)
[2018-12-01 20:44] LABS: Bilirubin Urine Negative (Negative); Ictotest Urine Negative (Negative)
--- NOTE | 2018-12-01 21:39 | CT Scan Report ---
CT lumbar spine wo con CT DOSE: HISTORY: Pain. Nausea. follow up epidural abscess TECHNIQUE: Multiaxial CT images of the lumbar spine were performed and reformatted in the sagittal an d coronal plane without the use of contrast. A dose lowering technique was utilized adhering to the principles of ALARA. COMPARISON: 09/30/2018 FINDINGS: Improved exam. Interval placement of interpedicular screws at L1 and L2. Improved osteolyti c bone changes of L3 as well as L4. Improved soft tissue postoperative changes posterior aspect mid to low lumbar spine. No evidence for compression deformity. IMPRESSION: 1. Improved postoperative evaluation of the lumbar spine 2. Interval postoperative changes as described with improvement of the procedure described ostial nanette is and erosive changes. 3. There have been placement of lumbar spine stabilization devices with improved soft tissue evaluati on posterior to the spinal canal. 4. Small bilateral pleural effusions. The above report was generated using voice recognition software. It may contain grammatical, syntax or spelling errors. Electronically signed by: Samuel Lindo M.D. 12/01/2018 9:38 PM
--- NOTE | 2018-12-01 21:40 | History & Physical Report ---
Date of Service December 01, 2018 Assessment & Plan (1) Non-ST elevated myocardial infarction (non-STEMI): NSTEMI/history of sudden cardiac /AICD present/CAD/chronic systolic heart failure with most recent EF 25%/Hypertension/demand ischemia- Troponin 7.31 upon admission. Troponin had peaked at 33.200 on 10/12/2018. Most recent prior to this admission was 17.500 on 10/13/2018. Unclear if this troponin of 7.31 is a continuing decline from previously, or on the way back up due to anemia. Primary treatment at this time is to transfuse, follow serial laboratories. Has been on metoprolol succinate 50 mg p.o. daily. Can resume with hold parameters on blood pressure improves. We will consult cardiology. Present on Admission?: Yes (2) PAULA (acute kidney injury): Creatinine 2.04 upon admission. Most recent creatinine on 10/22/2018 was 1.29. Peak creatinine was 3.03 on 10/13/2018. He has been known to have acute kidney injury secondary to medications in the past, including vancomycin and Zyvox. Suspect today is more of a prerenal/cardiorenal effect. Follow serial laboratories. Present on Admission?: Yes (3) Altered mental status: Altered mental status, primarily lethargy, may be an element of encephalopathy as well, secondary to hypoxia and anemia. Present on Admission?: Yes (4) Anemia: Heme-negative in the ED. His oral intake is been very poor per his . Likely contributing to demand ischemia process. We will be transfusing 2 units PRBCs tonight, and recheck laboratories. Present on Admission?: Yes (5) Depression: Depression/agitation/seizure- Continue divalproex, haloperidol IM as needed, risperidone 3 times daily. Present on Admission?: Yes (6) CAD, multiple vessel: See above Present on Admission?: Yes (7) Abscess in epidural space of lumbar spine: CT of lumbar spine performed, with no notation of persistent abscess. Treatment upon discharge completed from last hospitalization: Daptomycin IV, ceftriaxone IV and caspofungin IV. Present on Admission?: Yes (8) Demand ischemia: See above. Present on Admission?: Yes (9) ICD (implantable cardioverter-defibrillator) in place: See above Present on Admission?: Yes (10) Ischemic cardiomyopathy: See above Present on Admission?: Yes (11) Diabetes mellitus, type 2: Placed on Accu-Cheks before meals and at bedtime with NovoLog coverage per scale. He will continue on his usual PEG feeds supplements. Present on Admission?: Yes (12) Agitation: See above. Present on Admission?: Yes (13) BPH (benign prostatic hyperplasia): Continue tamsulosin and finasteride. Present on Admission?: Yes (14) Obstructive sleep apnea: If significant sleep apnea, will prescribe CPAP. Present on Admission?: Yes History of Present Illness Chief Complaint: The patient presents to the emergency department as a referral from [facility] due to altered mental status and fatigue that they noted when he returned from a weekend away. Primary Care Provider: [facility] The patient is a 67-year-old male most recently admitted to [facility] from 09/27-10/22/2018 for treatment of a lumbar spine epidural abscess, was treated with multiple IV medications during a complex admission that required an ICU stay. He was transferred to an LTAC at [facility], where he completed IV antibiotics and antifungals. He was recently transferred back to [facility], was noted to be fatigue upon returning from a weekend away, was sent to the ED, was found to be anemic, with an elevated troponin, and was then referred for evaluation for admission. Allergies Allergy/AdvReac Type Severity Reaction Status Date / Time No Known Drug Allergies Allergy Unknown Unverified 12/01/18 19:27 Home Medications Home Medications Medication Instructions Recorded Confirmed Type Eternal Feed Order 60 ml PEG HS 12/01/18 12/01/18 History Flush 120 ml PEG UD 12/01/18 12/01/18 History House Shake 1 dose PO TIDM 12/01/18 12/01/18 History Prune Juice/Stewed Prunes 1 dose PO UD PRN 12/01/18 12/01/18 History acetaminophen [Tylenol] 975 mg PO Q8 PRN 12/01/18 12/01/18 History aspirin [Aspir-81] 81 mg PO DAILY 12/01/18 12/01/18 History bisacodyl [Dulcolax (bisacodyl)] 10 mg AK UD PRN 12/01/18 12/01/18 History cholecalciferol (vitamin D3) 2,000 unit PO DAILY 12/01/18 12/01/18 History [Vitamin D3] clopidogrel [Plavix] 75 mg PO DAILY 12/01/18 12/01/18 History cyanocobalamin (vitamin B-12) 1,000 mcg PO DAILY 12/01/18 12/01/18 History [Vitamin B-12] divalproex 250 mg PO Q12 12/01/18 12/01/18 History famotidine 40 mg PO DAILY 12/01/18 12/01/18 History finasteride 5 mg PO DAILY 12/01/18 12/01/18 History haloperidol lactate [Haldol] 1 mg IM Q6 PRN 12/01/18 12/01/18 History heparin (porcine) 5,000 unit SUBCUT TID 12/01/18 12/01/18 History insulin lispro [Humalog U-100 1 sliding scale dose SUBCUT 12/01/18 12/01/18 History Insulin] USEASDIRECTD magnesium oxide 400 mg PO DAILY 12/01/18 12/01/18 History metoprolol succinate [Toprol XL] 50 mg PO DAILY 12/01/18 12/01/18 History nut.tx.gluc.intol,lac-free,soy 300 ea FEEDING TUBE UD 12/01/18 12/01/18 History [Glucerna 1.5 Terrell] nut.tx.gluc.intol,lac-free,soy 300 ea FEEDING TUBE UD 12/01/18 12/01/18 History [Glucerna 1.5 Terrell] oxycodone 5 mg PO Q4 PRN 12/01/18 12/01/18 History polyethylene glycol 3350 [Miralax] 17 g PO Q6 12/01/18 12/01/18 History risperidone [Risperdal] 0.5 mg PO TID 12/01/18 12/01/18 History tamsulosin 0.4 mg PO DAILY 12/01/18 12/01/18 History Past Med/Surg History Medical History Vitamin D deficiency (Acute) Urinary stream splitting (Acute) Urinary incontinence (Acute) Uncontrolled type 2 diabetes mellitus with retinopathy, with long-term current use of insulin (Acute) Uncontrolled type 2 diabetes mellitus with neurologic complication, with long- term current use of insulin (Acute) Thyroid disorder (Acute) Spinal stenosis (Acute) Sleep-wake schedule disorder, delayed phase type (Acute) Restless legs syndrome (Acute) Pyuria (Acute) Proliferative diabetic retinopathy (Acute) Obstructive sleep apnea (Acute) Obesity, Class II, BMI 35-39.9 (Acute) Nicotine dependence (Acute) Hallucinations (Acute) Exposure to influenza (Acute) Edema (Acute) Dyslipidemia (Acute) Diverticulosis (Acute) Disc degeneration, lumbar (Acute) Diabetic retinopathy (Acute) Diabetic peripheral neuropathy (Acute) Depression (Acute) Carotid artery stenosis (Acute) Cardiac defibrillator in place (Acute) CAD, multiple vessel (Acute) Benign localized hyperplasia of prostate with urinary obstruction (Acute) Arteriosclerotic coronary artery disease (Acute) Anxiety (Acute) Anemia (Acute) Alteration in tactile sense (Acute) Abscess in epidural space of lumbar spine (Acute) Acute UTI (urinary tract infection) Difficult airway for intubation [employer] 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 Admitted [facility] 10/18/11 for onset of incapacitating cervical myelopathy. Spinal tap showed [employer] Lyme disease, MRI showed severe spinal cord compression at C3-4 with myelomalacia and intramedullary mass. Pt had c-spine surgery, subsequent prolonged hospital admission, complicated post-op course. Difficult intubation Sudden cardiac Post-op 2011 [facility]. Now has ICD. Sleep apnea PT NOT CURRENTLY CPAP 2/2 recurrent sinus infections. WILL SEE SLEEP MEDICINE/DR. ARCHULETA LATE 2017 Diabetes mellitus, type 2 IDDM. 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 History of tracheostomy Hx of transurethral resection of prostate History of cataract extraction with lens replacement Hx of tonsillectomy (Acute) H/O cervical spine surgery (Acute) ACDI C3-4, C7 corpectomy, removal of C7 intramedullary mass. History of lumbar spinal fusion (Acute) S/P triple vessel bypass (Acute) [id number] History of incision and drainage Lumbar spine on 08/11; complicated by difficult intubation with only #6.5 ETT able to be placed and patient kept intubated post op History of lumbar surgery 09/10/18 Glidescope 3 okay visualization but difficulty passing ETT, unable to pass 8.0, able to pass 7.0 with some difficulty Family History Other Diabetes Hypertension No pertinent family history Social History Preferred Language: Spanish Communication Ability: Effective Visual Impairment: No Limitations Hearing Ability: Normal Sliver Chopper Required: No Beliefs That Will Affect Care: None marital status: Current Living Situation: Custodial Current Living Situation Comment: [facility] Other Information That Helps Us Care for You: No Feels Safe at Home: Declines to Answer Smoking Status: Former smoker Tobacco Type: smokeless tobacco Second Hand Exposure: No Hx Alcohol Use: No Hx Substance Use: No Review of Systems Review of Systems: The patient with help supplemented by , denies chest pain, palpitations, cough, lower extremity swelling, sore throat, fevers, chills, sweats, nausea, vomiting, diarrhea , constipation, abdominal pain, pelvic pain, blood in urine or stool, dysuria, urinary frequency or urgency, loss of consciousness, focal weakness, numbness or tingling in arms or legs, back or neck pain, or night sweats. The review of systems is otherwise negative other than for that already noted above, and at least 10 systems have been reviewed. Physical Exam Physical Exam: The patient is lethargic but arousable, looks pale, normocephalic and atraumatic, lying in bed and in no acute distress. Occasi onally short of breath. HEENT--PERRL, EOMI, mucous membranes and oropharynx dry. Neck--supple. No JVD. No bruits. Thyroid normal, trachea midline, no adenopathy. Heart--normal S1 and S2. No murmurs, rubs or gallops. Lungs--clear bilaterally, no respiratory distress, no accessory muscle use. Abdomen--normal bowel sounds and soft. Nontender. Nondistended, no hernias or masses, no organomegaly. Extremities--no cyanosis or clubbing. Trace bilateral pretibial edema. There are good distal pulses b/l. Dermatologic--normal skin turgor, looks pale Neurologic--cranial nerves II through XII grossly intact. Rheumatologic--normal range of motion. Psychiatric--lethargic but arousable. Results & Data Vital Signs (Past 12 Hours) Vital Signs Temp Pulse Resp BP Pulse Ox 12/01/18 19:45 85 13 100 12/01/18 19:31 86 35 H 110/68 12/01/18 19:30 89 30 H 12/01/18 19:15 86 20 105/64 99 12/01/18 19:14 83 35 H 12/01/18 18:30 87 27 H 98/57 L 96 12/01/18 18:15 87 14 12/01/18 18:08 88 14 12/01/18 17:51 98.4 F 90 23 101/59 L 99 Laboratory Results Laboratory Results WBC 8.37 K/uL (4.8-10.8) 12/01/18 18:30 RBC 2.45 M/uL (4.7-6.1) L 12/01/18 18:30 Hgb 7.4 g/dL (14.0-18.0) L 12/01/18 18:30 POC Hgb 7.5 g/dl (14.0-18.0) L 12/01/18 18:38 Hct 22.4 % (42-52) L 12/01/18 18:30 POC Hct 22 % (42-52) L 12/01/18 18:38 MCV 91.4 fL (80-100) 12/01/18 18:30 MCH 30.2 pg (25-34) 12/01/18 18:30 MCHC 33.0 g/dL (32-36) 12/01/18 18:30 RDW Std Deviation 58.1 fL (36.4-46.3) H 12/01/18 18:30 RDW Coeff of Norbert 17.7 % (11.5-14.5) H 12/01/18 18:30 Plt Count 190 K/uL (130-400) 12/01/18 18:30 MPV 9.2 fL (7.4-10.4) 12/01/18 18:30 Immature Gran % (Auto) 1.0 % 12/01/18 18:30 Neut % (Auto) 77.3 % 12/01/18 18:30 Lymph % (Auto) 5.7 % 12/01/18 18:30 Stanley % (Auto) 15.1 % 12/01/18 18:30 Eos % (Auto) 0.4 % 12/01/18 18:30 Baso % (Auto) 0.5 % 12/01/18 18:30 Immature Gran # (Auto) 0.08 K/uL (0.00-0.02) H 12/01/18 18:30 Neut # (Auto) 6.48 K/uL (1.4-6.5) 12/01/18 18:30 Lymph # (Auto) 0.48 K/uL (1.2-3.4) L 12/01/18 18:30 Stanley # (Auto) 1.26 K/uL (0.11-0.59) H 12/01/18 18:30 Eos # (Auto) 0.03 K/uL (0-0.5) 12/01/18 18:30 Baso # (Auto) 0.04 K/uL (0-0.2) 12/01/18 18:30 Polychromasia 1+ 12/01/18 18:30 ESR 17 mm/hr (0-14) H 12/01/18 18:30 PT 10.9 Seconds (9.0-12.0) 12/01/18 18:30 INR 1.1 (0.9-1.1) 12/01/18 18:30 APTT 27.4 Seconds (21.0-31.0) 12/01/18 18: PTT Ratio 1.0 12/01/18 18:30 VBG pH 7.43 (7.36-7.41) H 12/01/18 18:31 VBG pCO2 32 mmHg (38-50) L 12/01/18 18:31 VBG pO2 29 mmHg 12/01/18 18:31 VBG HCO3 21 mmol/L 12/01/18 18:31 VBG O2 Saturation < 60.0 % 12/01/18 18:31 VBG Base Excess -2.9 mEq/L 12/01/18 18:31 Barometric Pressure 726.3 mm/Hg 12/01/18 18:31 POC Sodium 126 mEq/L (135-144) L 12/01/18 18:38 Sodium 127 mmol/L (136-145) L 12/01/18 18:30 POC Potassium 5.5 mEq/L (3.3-5.0) H 12/01/18 18:38 Potassium 5.5 mmol/L (3.5-5.1) H 12/01/18 18:30 POC Chloride 95 mEq/L (101-112) L 12/01/18 18:38 Chloride 95 mmol/L (98-107) L 12/01/18 18:30 Carbon Dioxide 21 mmol/L (21-32) 12/01/18 18:30 POC Total CO2 20 mEq/l (24-31) L 12/01/18 18:38 Anion Gap 11.0 (3-11) 12/01/18 18:30 POC Anion Gap 18.0 mmol/L (16-25) 12/01/18 18:38 POC BUN 36 mg/dl (7-18) H 12/01/18 18:38 BUN 40 mg/dl (7-18) H 12/01/18 18:30 Creatinine 2.04 mg/dl (0.6-1.4) H 12/01/18 18:30 POC Creatinine 1.9 mg/dl (0.6-1.3) H 12/01/18 18:38 Est Cr Clr Drug Dosing 41.1 ml/min 12/01/18 18:30 Est GFR ( Amer) 38.5 12/01/18 18:30 Est GFR (Non-Af Amer) 33.2 12/01/18 18:30 BUN/Creatinine Ratio 19.4 (10-20) 12/01/18 18:30 Glucose 221 mg/dl (70-99) H 12/01/18 18:30 POC Glucose (other) 235 mg/dl (70-99) H 12/01/18 18:38 Lactate 3.6 mmol/L (0.4-2.0) H* 12/01/18 18:30 Calcium 8.4 mg/dl (8.5-10.1) L 12/01/18 18:30 POC Ioniz Calcium Yg 1.06 mmol/l (1.12-1.32) L 12/01/18 18:38 Magnesium 3.0 mg/dl (1.8-2.4) H 12/01/18 18:30 Total Bilirubin 0.7 mg/dl (0.2-1) 12/01/18 18:30 AST 63 U/L (15-37) H 12/01/18 18:30 ALT 36 U/L (12-78) 12/01/18 18:30 Alkaline Phosphatase 135 U/L (45-117) H 12/01/18 18:30 Troponin I 7.310 ng/ml (0-0.045) H* 12/01/18 18:30 C-Reactive Protein 2.91 mg/dl (0-0.29) H 12/01/18 18:30 Total Protein 6.7 gm/dl (6.4-8.2) 12/01/18 18:30 Albumin 2.8 gm/dl (3.4-5.0) L 12/01/18 18:30 Globulin 3.9 gm/dl (2.5-4.0) 12/01/18 18:30 Albumin/Globulin Ratio 0.7 (0.9-2) L 12/01/18 18:30 Procalcitonin 0.53 ng/ml (0-0.5) H 12/01/18 18:30 Urine Color Dark Yellow 12/01/18 20:10 Urine Appearance Clear (Clear) 12/01/18 20:10 Urine pH 5.0 (4.5-7.5) 12/01/18 20:10 Ur Specific [place] 1.026 (1.000-1.030) 12/01/18 20:10 Urine Protein Trace (Negative) H 12/01/18 20:10 Urine Glucose (UA) Negative (Negative) 12/01/18 20:10 Urine Ketones Trace (Negative) H 12/01/18 20:10 Urine Blood Negative (Negative) 12/01/18 20:10 Urine Nitrite Negative (Negative) 12/01/18 20:10 Urine Bilirubin Negative (Negative) 12/01/18 20:10 Urine Urobilinogen Negative (Negative) 12/01/18 20:10 Ur Leukocyte Esterase Trace (Negative) H 12/01/18 20:10 Urine WBC (Auto) 1-5 /hpf (0-5) 12/01/18 20:10 Urine RBC (Auto) 5-10 /hpf (0-4) H 12/01/18 20:10 U Hyaline Cast (Auto) 5-10 /lpf (0-5) H 12/01/18 20:10 U Epithel Cells (Auto) 10-20 /lpf (0-5) H 12/01/18 20:10 Urine Bacteria (Auto) Negative (Negative) 12/01/18 20:10 Valproic Acid 33 mcg/ml (50-100) L 12/01/18 18:30 Blood Type A Positive 12/01/18 19:13 Antibody Screen POSITIVE A 12/01/18 19:13 Crossmatch See Detail 12/01/18 19:13 Diagnostic Findings [facility], [place] [phone] CT Scan Report Patient: NICHOLAS NGUYEN AAdmit Date: 12/01/18 MR#: [id number]: [facility] Acct ID:[id number]: [address] Date: 1950[facility] Zip: [place] [address] Age: 67Location: ED Sex: M Room/Bed: Att Phy: Diagnosis: CHEST PAIN Rena Phy: BeePhilipSerrust Date: 12/01/18 Fam Phy: Interpreting Phy: Samuel Lindo MD Admit Phy: Ordering Phy: Zeke Avendano DO cc: ~ CT abd pelvis wo con CT DOSE: 1108.44 mGy.cm HISTORY: Trauma. Pain. fall TECHNIQUE: Multiaxial CT images of the abdomen and pelvis were performed without contrast. A dose lowering technique was utilized adhering to the principles of ALARA. COMPARISON STUDY: 09/27/2018 FINDINGS: Bilateral pleural effusions mildly increased in the prior study. Mild cardiomegaly. Liver spleen and pancreas are grossly unremarkable. A horseshoe kidney is again noted. Nonobstructive bowel pattern. Mild bladder wall thickening unchanged in the prior study. No free fluid within the pole pelvic cul-de-sac. No acute posttraumatic bony change. Stable postoperative changes involving the lumbar spine. IMPRESSION: 1. Bilateral pleural effusions mildly increased in volume from the prior study. 2. Moderate cardiomegaly. 3. No acute process specifically of the abdomen or pelvis. The above report was generated using voice recognition software. It may contain grammatical, syntax or spelling errors. Electronically signed by: Samuel Lindo M.D. 12/01/2018 7:04 PM Dictated: 12/01/18 1902 Transcribed: 12/01/181901 [facility], [place] [phone] CT Scan Report Patient: NICHOLAS NGUYEN AAdmit Date: 12/01/18 MR#: [id number]: [facility] Acct ID:[id number]: [address] Date: 1950[facility] Zip: [place] [address] Age: 67Location: ED Sex: M Room/Bed: Att Phy: Diagnosis: CHEST PAIN Rena Phy: Bee, CrestService Date: 12/01/18 Fam Phy: Interpreting Phy: Samuel Lindo MD Admit Phy: Ordering Phy: Zeke Avendano DO cc: ~ CT head/brain wo con CT DOSE: HISTORY: Trauma fall TECHNIQUE: Multiaxial CT images of the head were performed without the use of intravenous contrast. A dose lowering technique was utilized adhering to the principles of ALARA. Comparison: 09/27/2018 Findings: The paranasal sinuses and mastoid air cells are clear. The calvarium and skull base are intact. The ventricles and sulci are within normal limits. There is no mass, hematoma, midline shift, or acute infarct. Minimal residual mucosal thickening right mastoid air cells. Impression: No acute intracranial abnormality. Chronic changes as noted. The above report was generated using voice recognition software. It may contain grammatical, syntax or spelling errors. Electronically signed by: Samuel Lindo M.D. 12/01/2018 6:59 PM Dictated: 12/01/181857 Transcribed: 12/01/181857 [facility], [place] [phone] XRay Report Patient: NICHOLAS NGUYEN AAdmit Date: 12/01/18 MR#: [id number]: [facility] Acct ID:[id number]: [address] Date: 1950[facility] Zip: [place] [address] Age: 67Location: ED Sex: M Room/Bed: Att Phy: Diagnosis: CHEST PAIN Rena Phy: Bee, ReedsService Date: 12/01/18 Fam Phy: Interpreting Phy: Samuel Lindo MD Admit Phy: Ordering Phy: Zeke Avendano DO cc: ~ XR chest 1V portable CLINICAL HISTORY: Sepsis dyspnea COMPARISON STUDY: 10/13/2018 FINDINGS: Moderate cardiomegaly. Permanent cardiac pacemaker/fibrillator. Improved pulmonary edema compared to the prior study. Residual infiltrative process right base. IMPRESSION: 1. Moderate cardiomegaly with components of pulmonary vascular congestion/mild pulmonary edema. 2. These findings are improved compared to the prior study. 3. Residual infiltrative process right lung base. The above report was generated using voice recognition software. It may contain grammatical, syntax or spelling errors. Electronically signed by: Samuel Lindo M.D. 12/01/2018 6:04 PM Dictated: 12/01/181802 Transcribed: 12/01/181802 [place], [place] [phone] CT Scan Report Patient: NICHOLAS NGUYEN AAdmit Date: 12/01/18 MR#: [id number]: [facility] Acct ID:[id number]: [address] Date: [address] [place] [address] Zip: [place] [address] Age: 67Location: ED Sex: M Room/Bed: Att Phy: Diagnosis: CHEST PAIN Rnea Phy: Bee [facility] Date: 12/01/18 [facility] Phy: Interpreting Phy: Samuel Lindo MD Admit Phy: Ordering Phy: Zeke Avendano DO cc: ~ CT cervical spine wo con CT DOSE: 1074.04 mGy.cm HISTORY: Trauma fall TECHNIQUE: Multiaxial CT images of the cervical spine were performed and reformatted in the sagittal and coronal plane without the use of contrast. A dose lowering technique was utilized adhering to the principles of ALARA. COMPARISON: 09/03/2018 FINDINGS: Postoperative changes as noted previously. No acute posttraumatic abnormality. Vertebral body stature is unremarkable. C1-C2 complex is intact. IMPRESSION: Chronic and postoperative change. No acute process. The above report was generated using voice recognition software. It may contain grammatical, syntax or spelling errors. Electronically signed by: Samuel Lindo M.D. 12/01/2018 7:01 PM Dictated: 12/01/181899 Transcribed: 12/01/181899 [phone] Scan Report Patient: NICHOLAS NGUYEN Date: 12/01/18 MR#: [id number]: [facility] Acct ID:[id number]: [address] Date: [address] [place] [address] Zip: [place] [address] Age: 67Location: ED Sex: M Room/Bed: Att Phy: Diagnosis: CHEST PAIN Rena Phy: Bee, ReedsSerrust Date: 12/01/18 Fam Phy: Interpreting Phy: Samuel Lindo MD Admit Phy: Ordering Phy: Sumanth Kenny M.D. cc: ~ CT lumbar spine wo con CT DOSE: HISTORY: Pain. Nausea. follow up epidural abscess TECHNIQUE: Multiaxial CT images of the lumbar spine were performed and reformatted in the sagittal and coronal plane without the use of contrast. A dose lowering technique was utilized adhering to the principles of ALARA. COMPARISON: 09/30/2018 FINDINGS: Improved exam. Interval placement of interpedicular screws at L1 and L2. Improved osteolytic bone changes of L3 as well as L4. Improved soft tissue postoperative changes posterior aspect mid to low lumbar spine. No evidence for compression deformity. IMPRESSION: 1. Improved postoperative evaluation of the lumbar spine 2. Interval postoperative changes as described with improvement of the procedure described ostial lysis and erosive changes. 3. There have been placement of lumbar spine stabilization devices with improved soft tissue evaluation posterior to the spinal canal. 4. Small bilateral pleural effusions. The above report was generated using voice recognition software. It may contain grammatical, syntax or spelling errors. Electronically signed by: Samuel Lindo M.D. 12/01/2018 9:38 PM Dictated: 12/01/182131 Transcribed: 12/01/182131 Code Status & VTE Plan Code Status Full code VTE Prophylaxis Plan VTE Prophylaxis will be ordered: Yes PG Care Time/CCT Total # of Minutes Spent Total Time Spent with Patient: Total time spent is greater than 50% in coordination of care (as documented) at patient's floor/unit and/or counseling patient: (1) Altered mental status Altered mental status type: unspecified Qualified Code(s): R41.82 - Altered mental status, unspecified (2) Anemia Anemia type: unspecified type Qualified Code(s): D64.9 - Anemia, unspecified
[2018-12-01] MEDS ORDERED: risperiDONE 0.5 MG TABLET PO STA (21:54)
[2018-12-01] MEDS ORDERED: ALBUMIN HUMAN 25% 12.5 GM/50 ML VIAL IV ONE (23:21)
[2018-12-01] MEDS ORDERED: BISACODYL 10 MG SUPP PR PRN (23:21)
[2018-12-01] MEDS ORDERED: MAGNESIUM HYDROXIDE SUSP 30 ML UDC PO PRN (23:21)
[2018-12-01] MEDS ORDERED: NUT TX GLUC INTOL LAC FREE SOY feeding tube SCH (23:21)
[2018-12-01] MEDS ORDERED: ACETAMINOPHEN 1000 MG/100 ML IV IV PRN (23:21)
[2018-12-01] MEDS ORDERED: [UNRECOGNIZED DRUG - OTHER] PO PRN (23:21)
--- NOTE | 2018-12-02 00:23 | Emergency Department Note ---
Entered by Sushant Rico acting as a scribe for Zeke Avendano DO History of Present Illness General Chief complaint: Confusion Stated complaint: CHEST PAIN, CONFUSION Time Seen by Provider: 12/01/18 17:40 Source: patient and EMS History of Present Illness Provider complaint: Confusion Onset (ago): day(s) 2 Location: head Radiation: non-radiation Pain Consistency: + other (Worsening) Relieved By: + none Exacerbated By: + none Associated symptoms: + diaphoresis; no chest pain and no headaches The patient is a 67 year old male who presents to the Emergency Room from [facility] with complaints of worsening confusion over the past 2 days, per EMS. The protection consultant states that they were originally called for chest pain after the patient informed one of the nurses of pain earlier today. However, when EMS arrived the patient denied chest pain and currently he denies any pain with exception of his abdomen when it is palpated and his back. The patient reports that he normally has back pain but it is in more pain than usual. EMS also notes that earlier today he was diaphoretic but that has since resolved. When paramedics arrived the patient's blood pressure was in the 90s systolically. EMS reports that yesterday the patient had two falls and has a hematoma on the right anterior aspect of his frontal bone region, but he currently denies any headache. The patient is aware of his name, where he is, and his birthday. Home Medications Home Medications Medication Instructions Recorded Confirmed Type Eternal Feed Order 60 ml PEG HS 12/01/18 12/01/18 History Flush 120 ml PEG UD 12/01/18 12/01/18 History House Shake 1 dose PO TIDM 12/01/18 12/01/18 History Prune Juice/Stewed Prunes 1 dose PO UD PRN 12/01/18 12/01/18 History acetaminophen [Tylenol] 975 mg PO Q8 PRN 12/01/18 12/01/18 History aspirin [Aspir-81] 81 mg PO DAILY 12/01/18 12/01/18 History bisacodyl [Dulcolax (bisacodyl)] 10 mg ME UD PRN 12/01/18 12/01/18 History cholecalciferol (vitamin D3) 2,000 unit PO DAILY 12/01/18 12/01/18 History [Vitamin D3] clopidogrel [Plavix] 75 mg PO DAILY 12/01/18 12/01/18 History cyanocobalamin (vitamin B-12) 1,000 mcg PO DAILY 12/01/18 12/01/18 History [Vitamin B-12] divalproex 250 mg PO Q12 12/01/18 12/01/18 History famotidine 40 mg PO DAILY 12/01/18 12/01/18 History finasteride 5 mg PO DAILY 12/01/18 12/01/18 History haloperidol lactate [Haldol] 1 mg IM Q6 PRN 12/01/18 12/01/18 History heparin (porcine) 5,000 unit SUBCUT TID 12/01/18 12/01/18 History insulin lispro [Humalog U-100 1 sliding scale dose SUBCUT 12/01/18 12/01/18 History Insulin] USEASDIRECTD magnesium oxide 400 mg PO DAILY 12/01/18 12/01/18 History metoprolol succinate [Toprol XL] 50 mg PO DAILY 12/01/18 12/01/18 History nut.tx.gluc.intol,lac-free,soy 300 ea FEEDING TUBE UD 12/01/18 12/01/18 History [Glucerna 1.5 Terrell] nut.tx.gluc.intol,lac-free,soy 300 ea FEEDING TUBE UD 12/01/18 12/01/18 History [Glucerna 1.5 Terrell] oxycodone 5 mg PO Q4 PRN 12/01/18 12/01/18 History polyethylene glycol 3350 [Miralax] 17 g PO Q6 12/01/18 12/01/18 History risperidone [Risperdal] 0.5 mg PO TID 12/01/18 12/01/18 History tamsulosin 0.4 mg PO DAILY 12/01/18 12/01/18 History Allergies Allergy/AdvReac Type Severity Reaction Status Date / Time No Known Drug Allergies Allergy Unknown Unverified 12/01/18 19:27 Past Med/Surg History Medical History Vitamin D deficiency (Acute) Urinary stream splitting (Acute) Urinary incontinence (Acute) Uncontrolled type 2 diabetes mellitus with retinopathy, with long-term current use of insulin (Acute) Uncontrolled type 2 diabetes mellitus with neurologic complication, with long- term current use of insulin (Acute) Thyroid disorder (Acute) Spinal stenosis (Acute) Sleep-wake schedule disorder, delayed phase type (Acute) Restless legs syndrome (Acute) Pyuria (Acute) Proliferative diabetic retinopathy (Acute) Obstructive sleep apnea (Acute) Obesity, Class II, BMI 35-39.9 (Acute) Nicotine dependence (Acute) Hallucinations (Acute) Exposure to influenza (Acute) Edema (Acute) Dyslipidemia (Acute) Diverticulosis (Acute) Disc degeneration, lumbar (Acute) Diabetic retinopathy (Acute) Diabetic peripheral neuropathy (Acute) Depression (Acute) Carotid artery stenosis (Acute) Cardiac defibrillator in place (Acute) CAD, multiple vessel (Acute) Benign localized hyperplasia of prostate with urinary obstruction (Acute) Arteriosclerotic coronary artery disease (Acute) Anxiety (Acute) Anemia (Acute) Alteration in tactile sense (Acute) Abscess in epidural space of lumbar spine (Acute) Acute UTI (urinary tract infection) Difficult airway for intubation [employer] 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 Admitted [facility] 10/18/11 for onset of incapacitating cervical myelopathy. Spinal tap showed [employer] Lyme disease, MRI showed severe spinal cord compression at C3-4 with myelomalacia and intramedullary mass. Pt had c-spine surgery, subsequent prolonged hospital admission, complicated post-op course. Difficult intubation Sudden cardiac Post-op 2011 [facility]. Now has ICD. Sleep apnea PT NOT CURRENTLY CPAP 2/2 recurrent sinus infections. WILL SEE SLEEP MEDICINE/DR. ARCHULETA LATE 2017 Diabetes mellitus, type 2 IDDM. Degenerative disc disease Chronic back pain CHRONIC PAIN IN LEFT LEG Ischemic cardiomyopathy EF WNL 11/2017 CAD (coronary artery disease) s/p triple CABG 2003 Full dentures (Acute) Obese (Acute) Heart disease (Acute) HTN (hypertension) (Acute) High cholesterol (Acute) Coagulase-negative staphylococcal infection ICD (implantable cardioverter-defibrillator) in place Paraspinal abscess Surgical History History of esophagogastroduodenoscopy (EGD) History of colonoscopy History of cardiac cath 2011 AT [facility] - UNSURE IF HE HAS STENTS. History of tracheostomy Hx of transurethral resection of prostate History of cataract extraction with lens replacement Hx of tonsillectomy (Acute) H/O cervical spine surgery (Acute) ACDI C3-4, C7 corpectomy, removal of C7 intramedullary mass. History of lumbar spinal fusion (Acute) S/P triple vessel bypass (Acute) [facility]2002 History of incision and drainage Lumbar spine on 08/11; complicated by difficult intubation with only #6.5 ETT able to be placed and patient kept intubated post op History of lumbar surgery 09/10/18 Glidescope 3 okay visualization but difficulty passing ETT, unable to pass 8.0, able to pass 7.0 with some difficulty Family History Other Diabetes Hypertension No pertinent family history Social History Preferred Language: Pashto Communication Ability: Effective Visual Impairment: No Limitations Hearing Ability: Normal 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 and A total of 10 systems reviewed and were otherwise negative Physical Exam Vital Signs Vital Signs - 24 hr 12/01/18 17:51 12/01/18 18:08 12/01/18 18:15 Temperature 36.9 C Temperature Source Oral Sepsis Recent Fever Within 48 Hours No Sepsis New/Unexplained Change in Mental Status No Sepsis Action Taken by Nursing No Action Required Pulse Rate 90 88 87 Pulse Rate from SpO2 Sensor Respiratory Rate 23 14 14 Respiratory Effort / Characteristics Non-Labored Spontaneous Respiratory Depth Normal Respiratory Pattern Regular Blood Pressure 101/59 L Blood Pressure Mean 73 Blood Pressure Position Lying Pulse Oximetry 99 Oxygen Delivery Method Room Air 12/01/18 18:30 12/01/18 19:14 12/01/18 19:15 Temperature Temperature Source Sepsis Recent Fever Within 48 Hours Sepsis New/Unexplained Change in Mental Status Sepsis Action Taken by Nursing Pulse Rate 87 83 86 Pulse Rate from SpO2 Sensor 87 86 Respiratory Rate 27 H 35 H 20 Respiratory Effort / Characteristics Respiratory Depth Respiratory Pattern Blood Pressure 98/57 L 105/64 Blood Pressure Mean 70 77 Blood Pressure Position Pulse Oximetry 96 99 Oxygen Delivery Method Room Air 12/01/18 19:30 12/01/18 19:31 12/01/18 19:45 Temperature Temperature Source Sepsis Recent Fever Within 48 Hours Sepsis New/Unexplained Change in Mental Status Sepsis Action Taken by Nursing Pulse Rate 89 86 85 Pulse Rate from SpO2 Sensor 85 Respiratory Rate 30 H 35 H 13 Respiratory Effort / Characteristics Respiratory Depth Respiratory Pattern Blood Pressure 110/68 Blood Pressure Mean 82 Blood Pressure Position Pulse Oximetry 100 Oxygen Delivery Method 12/01/18 20:00 12/01/18 20:01 12/01/18 20:15 Temperature Temperature Source Sepsis Recent Fever Within 48 Hours Sepsis New/Unexplained Change in Mental Status Sepsis Action Taken by Nursing Pulse Rate 84 85 83 Pulse Rate from SpO2 Sensor 84 84 84 Respiratory Rate 18 18 26 H Respiratory Effort / Characteristics Respiratory Depth Respiratory Pattern Blood Pressure 102/68 Blood Pressure Mean 79 Blood Pressure Position Pulse Oximetry 100 100 100 Oxygen Delivery Method 12/01/18 20:30 12/01/18 20:31 12/01/18 20:45 Temperature Temperature Source Sepsis Recent Fever Within 48 Hours Sepsis New/Unexplained Change in Mental Status Sepsis Action Taken by Nursing Pulse Rate 79 81 88 Pulse Rate from SpO2 Sensor Respiratory Rate 7 L 10 L 28 H Respiratory Effort / Characteristics Respiratory Depth Respiratory Pattern Blood Pressure 109/60 Blood Pressure Mean 76 Blood Pressure Position Pulse Oximetry Oxygen Delivery Method 12/01/18 21:00 12/01/18 21:01 12/01/18 21:15 Temperature Temperature Source Sepsis Recent Fever Within 48 Hours Sepsis New/Unexplained Change in Mental Status Sepsis Action Taken by Nursing Pulse Rate 80 84 85 Pulse Rate from SpO2 Sensor Respiratory Rate 9 L 21 25 H Respiratory Effort / Characteristics Respiratory Depth Respiratory Pattern Blood Pressure 110/69 Blood Pressure Mean 82 Blood Pressure Position Pulse Oximetry Oxygen Delivery Method 12/01/18 21:19 12/01/18 21:30 12/01/18 21:31 Temperature Temperature Source Sepsis Recent Fever Within 48 Hours Sepsis New/Unexplained Change in Mental Status Sepsis Action Taken by Nursing Pulse Rate 85 83 81 Pulse Rate from SpO2 Sensor 85 83 81 Respiratory Rate 19 25 H 14 Respiratory Effort / Characteristics Respiratory Depth Respiratory Pattern Blood Pressure 94/63 L 112/69 Blood Pressure Mean 73 83 Blood Pressure Position Pulse Oximetry 99 91 100 Oxygen Delivery Method GENERAL: Patient is listless but awake and responds to verbal commands. Respo nds slowly but accurately. In no acute distress. Patient is resting comfortably and showing no signs of anxiety EYES: The conjunctivae are clear. The pupils are round and reactive. EARS, NOSE, MOUTH AND THROAT: The nose is without any evidence of any deformity. Mucous membranes are moist.Tongue is midline NECK: The neck is nontender and supple. RESPIRATORY: Normal respiratory effort is noted. Lungs sounds diminished in left base. Shallow respirations noted. There is no evidence of wheezing rhonchi or rales to auscultation. CARDIOVASCULAR: Regular rate and rhythm noted. There no murmurs rubs or gallops normal S1 normal S2 GASTROINTESTINAL: The abdomen is moderately distended and diffusely tender. No guarding. Bowel sounds are present in all quadrants. RECTAL: Brown stool, heme negative. BACK: No specific midline tenderness or step-off noted. ROM severely limited. Range of motion in flexion extension as well as rotation no signs of muscle spasm noted. PELVIS: The Pelvis is stable. No tenderness to palpation is noted. MUSCULOSKELETAL/EXTREMITIES: There is no evidence of gross deformity. Full range of motion is noted in the hips and shoulders. Pedal edema bilaterally. SKIN: There is no obvious evidence of any rash. There are no petechiae or cyanosis noted. Skin is pale. NEUROLOGIC: Patient is oriented to person, place, and situation. Chronic Disease Manager strength is symmetric. Unable to lift left leg. No facial droop. Patellar reflexes are 2+ bilaterally. Course 1745: The patient was evaluated in room C08, and a complete history and physical examination were performed. 193: I spoke to the patient's and informed her on the situation as well as the treatment plan. 2005: I spoke to Dr. Kenny [facility] Hospitalist about the patient's case and he will be accepting him for further evaluation. Consultations Consultation #1: I spoke to Dr. Kenny [facility] Hospitalist about the patient's case and he will be accepting him for further evaluation. Time: 20:05 Administered Medications Polyethylene Glycol (Miralax Powder Packet) 17 gm PO Q6 [email or web address] Stop: 01/01/19 00:00 Last Admin: 12/02/18 01:03 Dose: Not Given Documented by: [id number] Discontinued Medications Albumin Human (Albumin 25%) 25 gm IV ONE ONE Stop: 12/01/18 23:22 Last Admin: 12/01/18 23:46 Dose: 25 gm Documented by: [id number] Sodium Chloride (Nss 1000ml) 1,000 mls @ 999 mls/hr IV .Q1H1M ONE Stop: 12/01/18 18:54 Last Infusion: 12/01/18 19:31 Dose: 0 mls/hr Documented by: [id number] Admin: 12/01/18 18:24 Dose: 999 mls/hr Documented by: [id number] Risperidone (Risperdal) 0.5 mg PO NOW STA Stop: 12/01/18 21:55 Last Admin: 12/01/18 23:41 Dose: 0.5 mg Documented by: [id number] Medical Decision Making Differential Diagnosis Differential diagnoses includes but is not limited to toxic, metabolic, infectious, traumatic, cardiac, neurologic, hematologic, psychiatric and inflammatory etiologies. Medical Records Attestation: I reviewed the patient's medical records. Home Medications Current Medication List: was personally reviewed by me Laboratory Data Attestation: I reviewed the patient's lab results. Result diagrams: 12/01/18 18:30 12/01/18 18:30 Lab Results 12/01/18 12/01/18 12/01/18 Range/Units 18:30 18:30 18:30 WBC 8.37 (4.8-10.8) K/uL RBC 2.45 L (4.7-6.1) M/uL Hgb 7.4 L (14.0-18.0) g/dL POC Hgb (14.0-18.0) g/dl Hct 22.4 L (42-52) % POC Hct (42-52) % MCV 91.4 (80-100) fL MCH 30.2 (25-34) pg MCHC 33.0 (32-36) g/dL RDW Std Deviation 58.1 H (36.4-46.3) fL RDW Coeff of Norbert 17.7 H (11.5-14.5) % Plt Count 190 (130-400) K/uL MPV 9.2 (7.4-10.4) fL Immature Gran % (Auto) 1.0 % Neut % (Auto) 77.3 % Lymph % (Auto) 5.7 % Yell % (Auto) 15.1 % Eos % (Auto) 0.4 % Baso % (Auto) 0.5 % Immature Gran # (Auto) 0.08 H (0.00-0.02) K/uL Neut # (Auto) 6.48 (1.4-6.5) K/uL Lymph # (Auto) 0.48 L (1.2-3.4) K/uL Yell # (Auto) 1.26 H (0.11-0.59) K/uL Eos # (Auto) 0.03 (0-0.5) K/uL Baso # (Auto) 0.04 (0-0.2) K/uL Polychromasia 1+ ESR (0-14) mm/hr PT 10.9 (9.0-12.0) Seconds INR 1.1 (0.9-1.1) APTT 27.4 (21.0-31.0) Seconds PTT Ratio 1.0 VBG pH (7.36-7.41) VBG pCO2 (38-50) mmHg VBG pO2 mmHg VBG HCO3 mmol/L VBG O2 Saturation % VBG Base Excess mEq/L Barometric Pressure mm/Hg POC Sodium (135-144) mEq/L Sodium 127 L (136-145) mmol/L POC Potassium (3.3-5.0) mEq/L Potassium 5.5 H (3.5-5.1) mmol/L POC Chloride (101-112) mEq/L Chloride 95 L (98-107) mmol/L Carbon Dioxide 21 (21-32) mmol/L POC Total CO2 (24-31) mEq/l Anion Gap 11.0 (3-11) POC Anion Gap (16-25) mmol/L POC BUN (7-18) mg/dl BUN 40 H (7-18) mg/dl Creatinine 2.04 H (0.6-1.4) mg/dl POC Creatinine (0.6-1.3) mg/dl Est Cr Clr Drug Dosing 41.1 ml/min Est GFR ( Amer) 38.5 Est GFR (Non-Af Amer) 33.2 BUN/Creatinine Ratio 19.4 (10-20) Glucose 221 H (70-99) mg/dl POC Glucose (other) (70-99) mg/dl Lactate (0.4-2.0) mmol/L Calcium 8.4 L (8.5-10.1) mg/dl POC Ioniz Calcium Yg (1.12-1.32) mmol/l Magnesium (1.8-2.4) mg/dl Total Bilirubin 0.7 (0.2-1) mg/dl AST 63 H (15-37) U/L ALT 36 (12-78) U/L Alkaline Phosphatase 135 H (45-117) U/L Troponin I (0-0.045) ng/ml C-Reactive Protein (0-0.29) mg/dl Total Protein 6.7 (6.4-8.2) gm/dl Albumin 2.8 L (3.4-5.0) gm/dl Globulin 3.9 (2.5-4.0) gm/dl Albumin/Globulin Ratio 0.7 L (0.9-2) Procalcitonin (0-0.5) ng/ml Urine Color Urine Appearance (Clear) Urine pH (4.5-7.5) Ur Specific [place] (1.000-1.030) Urine Protein (Negative) Urine Glucose (UA) (Negative) Urine Ketones (Negative) Urine Blood (Negative) Urine Nitrite (Negative) Urine Bilirubin (Negative) Urine Urobilinogen (Negative) Ur Leukocyte Esterase (Negative) Urine WBC (Auto) (0-5) /hpf Urine RBC (Auto) (0-4) /hpf U Hyaline Cast (Auto) (0-5) /lpf U Epithel Cells (Auto) (0-5) /lpf Urine Bacteria (Auto) (Negative) Valproic Acid (50-100) mcg/ml Blood Type Antibody Screen Antibody Identification Direct Antiglob Test (Negative) ELENA (IgG-AHG) (Negative) ELENA, Polyspecific (Negative) ELENA C3b, C3d 5 Min (Negative) Crossmatch 12/01/18 12/01/18 12/01/18 Range/Units 18:30 18:30 18:30 WBC (4.8-10.8) K/uL RBC (4.7-6.1) M/uL Hgb (14.0-18.0) g/dL POC Hgb (14.0-18.0) g/dl Hct (42-52) % POC Hct (42-52) % MCV (80-100) fL MCH (25-34) pg MCHC (32-36) g/dL RDW Std Deviation (36.4-46.3) fL RDW Coeff of Norbert (11.5-14.5) % Plt Count (130-400) K/uL MPV (7.4-10.4) fL Immature Gran % (Auto) % Neut % (Auto) % Lymph % (Auto) % Yell % (Auto) % Eos % (Auto) % Baso % (Auto) % Immature Gran # (Auto) (0.00-0.02) K/uL Neut # (Auto) (1.4-6.5) K/uL Lymph # (Auto) (1.2-3.4) K/uL Yell # (Auto) (0.11-0.59) K/uL Eos # (Auto) (0-0.5) K/uL Baso # (Auto) (0-0.2) K/uL Polychromasia ESR 17 H (0-14) mm/hr PT (9.0-12.0) Seconds INR (0.9-1.1) APTT (21.0-31.0) Seconds PTT Ratio VBG pH (7.36-7.41) VBG pCO2 (38-50) mmHg VBG pO2 mmHg VBG HCO3 mmol/L VBG O2 Saturation % VBG Base Excess mEq/L Barometric Pressure mm/Hg POC Sodium (135-144) mEq/L Sodium (136-145) mmol/L POC Potassium (3.3-5.0) mEq/L Potassium (3.5-5.1) mmol/L POC Chloride (101-112) mEq/L Chloride (98-107) mmol/L Carbon Dioxide (21-32) mmol/L POC Total CO2 (24-31) mEq/l Anion Gap (3-11) POC Anion Gap (16-25) mmol/L POC BUN (7-18) mg/dl BUN (7-18) mg/dl Creatinine (0.6-1.4) mg/dl POC Creatinine (0.6-1.3) mg/dl Est Cr Clr Drug Dosing ml/min Est GFR ( Amer) Est GFR (Non-Af Amer) BUN/Creatinine Ratio (10-20) Glucose (70-99) mg/dl POC Glucose (other) (70-99) mg/dl Lactate 3.6 H* (0.4-2.0) mmol/L Calcium (8.5-10.1) mg/dl POC Ioniz Calcium Yg (1.12-1.32) mmol/l Magnesium (1.8-2.4) mg/dl Total Bilirubin (0.2-1) mg/dl AST (15-37) U/L ALT (12-78) U/L Alkaline Phosphatase (45-117) U/L Troponin I (0-0.045) ng/ml C-Reactive Protein (0-0.29) mg/dl Total Protein (6.4-8.2) gm/dl Albumin (3.4-5.0) gm/dl Globulin (2.5-4.0) gm/dl Albumin/Globulin Ratio (0.9-2) Procalcitonin 0.53 H (0-0.5) ng/ml Urine Color Urine Appearance (Clear) Urine pH (4.5-7.5) Ur Specific [place] (1.000-1.030) Urine Protein (Negative) Urine Glucose (UA) (Negative) Urine Ketones (Negative) Urine Blood (Negative) Urine Nitrite (Negative) Urine Bilirubin (Negative) Urine Urobilinogen (Negative) Ur Leukocyte Esterase (Negative) Urine WBC (Auto) (0-5) /hpf Urine RBC (Auto) (0-4) /hpf U Hyaline Cast (Auto) (0-5) /lpf U Epithel Cells (Auto) (0-5) /lpf Urine Bacteria (Auto) (Negative) Valproic Acid (50-100) mcg/ml Blood Type Antibody Screen Antibody Identification Direct Antiglob Test (Negative) ELENA (IgG-AHG) (Negative) ELENA, Polyspecific (Negative) ELENA C3b, C3d 5 Min (Negative) Crossmatch 12/01/18 12/01/18 12/01/18 Range/Units 18:30 18:30 18:31 WBC (4.8-10.8) K/uL RBC (4.7-6.1) M/uL Hgb (14.0-18.0) g/dL POC Hgb (14.0-18.0) g/dl Hct (42-52) % POC Hct (42-52) % MCV (80-100) fL MCH (25-34) pg MCHC (32-36) g/dL RDW Std Deviation (36.4-46.3) fL RDW Coeff of Norbert (11.5-14.5) % Plt Count (130-400) K/uL MPV (7.4-10.4) fL Immature Gran % (Auto) % Neut % (Auto) % Lymph % (Auto) % Yell % (Auto) % Eos % (Auto) % Baso % (Auto) % Immature Gran # (Auto) (0.00-0.02) K/uL Neut # (Auto) (1.4-6.5) K/uL Lymph # (Auto) (1.2-3.4) K/uL Yell # (Auto) (0.11-0.59) K/uL Eos # (Auto) (0-0.5) K/uL Baso # (Auto) (0-0.2) K/uL Polychromasia ESR (0-14) mm/hr PT (9.0-12.0) Seconds INR (0.9-1.1) APTT (21.0-31.0) Seconds PTT Ratio VBG pH 7.43 H (7.36-7.41) VBG pCO2 32 L (38-50) mmHg VBG pO2 29 mmHg VBG HCO3 21 mmol/L VBG O2 Saturation < 60.0 % VBG Base Excess -2.9 mEq/L Barometric Pressure 726.3 mm/Hg POC Sodium (135-144) mEq/L Sodium (136-145) mmol/L POC Potassium (3.3-5.0) mEq/L Potassium (3.5-5.1) mmol/L POC Chloride (101-112) mEq/L Chloride (98-107) mmol/L Carbon Dioxide (21-32) mmol/L POC Total CO2 (24-31) mEq/l Anion Gap (3-11) POC Anion Gap (16-25) mmol/L POC BUN (7-18) mg/dl BUN (7-18) mg/dl Creatinine (0.6-1.4) mg/dl POC Creatinine (0.6-1.3) mg/dl Est Cr Clr Drug Dosing ml/min Est GFR ( Amer) Est GFR (Non-Af Amer) BUN/Creatinine Ratio (10-20) Glucose (70-99) mg/dl POC Glucose (other) (70-99) mg/dl Lactate (0.4-2.0) mmol/L Calcium (8.5-10.1) mg/dl POC Ioniz Calcium Yg (1.12-1.32) mmol/l Magnesium 3.0 H (1.8-2.4) mg/dl Total Bilirubin (0.2-1) mg/dl AST (15-37) U/L ALT (12-78) U/L Alkaline Phosphatase (45-117) U/L Troponin I 7.310 H* (0-0.045) ng/ml C-Reactive Protein 2.91 H (0-0.29) mg/dl Total Protein (6.4-8.2) gm/dl Albumin (3.4-5.0) gm/dl Globulin (2.5-4.0) gm/dl Albumin/Globulin Ratio (0.9-2) Procalcitonin (0-0.5) ng/ml Urine Color Urine Appearance (Clear) Urine pH (4.5-7.5) Ur Specific [place] (1.000-1.030) Urine Protein (Negative) Urine Glucose (UA) (Negative) Urine Ketones (Negative) Urine Blood (Negative) Urine Nitrite (Negative) Urine Bilirubin (Negative) Urine Urobilinogen (Negative) Ur Leukocyte Esterase (Negative) Urine WBC (Auto) (0-5) /hpf Urine RBC (Auto) (0-4) /hpf U Hyaline Cast (Auto) (0-5) /lpf U Epithel Cells (Auto) (0-5) /lpf Urine Bacteria (Auto) (Negative) Valproic Acid 33 L (50-100) mcg/ml Blood Type Antibody Screen Antibody Identification Direct Antiglob Test (Negative) ELENA (IgG-AHG) (Negative) ELENA, Polyspecific (Negative) ELENA C3b, C3d 5 Min (Negative) Crossmatch 12/01/18 12/01/18 12/01/18 Range/Units 18:38 19:13 20:10 WBC (4.8-10.8) K/uL RBC (4.7-6.1) M/uL Hgb (14.0-18.0) g/dL POC Hgb 7.5 L (14.0-18.0) g/dl Hct (42-52) % POC Hct 22 L (42-52) % MCV (80-100) fL MCH (25-34) pg MCHC (32-36) g/dL RDW Std Deviation (36.4-46.3) fL RDW Coeff of Norbert (11.5-14.5) % Plt Count (130-400) K/uL MPV (7.4-10.4) fL Immature Gran % (Auto) % Neut % (Auto) % Lymph % (Auto) % Yell % (Auto) % Eos % (Auto) % Baso % (Auto) % Immature Gran # (Auto) (0.00-0.02) K/uL Neut # (Auto) (1.4-6.5) K/uL Lymph # (Auto) (1.2-3.4) K/uL Yell # (Auto) (0.11-0.59) K/uL Eos # (Auto) (0-0.5) K/uL Baso # (Auto) (0-0.2) K/uL Polychromasia ESR (0-14) mm/hr PT (9.0-12.0) Seconds INR (0.9-1.1) APTT (21.0-31.0) Seconds PTT Ratio VBG pH (7.36-7.41) VBG pCO2 (38-50) mmHg VBG pO2 mmHg VBG HCO3 mmol/L VBG O2 Saturation % VBG Base Excess mEq/L Barometric Pressure mm/Hg POC Sodium 126 L (135-144) mEq/L Sodium (136-145) mmol/L POC Potassium 5.5 H (3.3-5.0) mEq/L Potassium (3.5-5.1) mmol/L POC Chloride 95 L (101-112) mEq/L Chloride (98-107) mmol/L Carbon Dioxide (21-32) mmol/L POC Total CO2 20 L (24-31) mEq/l Anion Gap (3-11) POC Anion Gap 18.0 (16-25) mmol/L POC BUN 36 H (7-18) mg/dl BUN (7-18) mg/dl Creatinine (0.6-1.4) mg/dl POC Creatinine 1.9 H (0.6-1.3) mg/dl Est Cr Clr Drug Dosing ml/min Est GFR ( Amer) Est GFR (Non-Af Amer) BUN/Creatinine Ratio (10-20) Glucose (70-99) mg/dl POC Glucose (other) 235 H (70-99) mg/dl Lactate (0.4-2.0) mmol/L Calcium (8.5-10.1) mg/dl POC Ioniz Calcium Yg 1.06 L (1.12-1.32) mmol/l Magnesium (1.8-2.4) mg/dl Total Bilirubin (0.2-1) mg/dl AST (15-37) U/L ALT (12-78) U/L Alkaline Phosphatase (45-117) U/L Troponin I (0-0.045) ng/ml C-Reactive Protein (0-0.29) mg/dl Total Protein (6.4-8.2) gm/dl Albumin (3.4-5.0) gm/dl Globulin (2.5-4.0) gm/dl Albumin/Globulin Ratio (0.9-2) Procalcitonin (0-0.5) ng/ml Urine Color Dark Yellow Urine Appearance Clear (Clear) Urine pH 5.0 (4.5-7.5) Ur Specific [place] 1.026 (1.000-1.030) Urine Protein Trace H (Negative) Urine Glucose (UA) Negative (Negative) Urine Ketones Trace H (Negative) Urine Blood Negative (Negative) Urine Nitrite Negative (Negative) Urine Bilirubin Negative (Negative) Urine Urobilinogen Negative (Negative) Ur Leukocyte Esterase Trace H (Negative) Urine WBC (Auto) 1-5 (0-5) /hpf Urine RBC (Auto) 5-10 H (0-4) /hpf U Hyaline Cast (Auto) 5-10 H (0-5) /lpf U Epithel Cells (Auto) 10-20 H (0-5) /lpf Urine Bacteria (Auto) Negative (Negative) Valproic Acid (50-100) mcg/ml Blood Type A Positive Antibody Screen POSITIVE A Antibody Identification Anti-E Direct Antiglob Test Negative (Negative) ELENA (IgG-AHG) Neg (Negative) ELENA, Polyspecific Neg (Negative) ELENA C3b, C3d 5 Min Neg (Negative) Crossmatch See Detail Imaging Data Radiologist's Impression: Radiology results as stated below per my review and the radiologist's interpretation: XR chest 1V portable CLINICAL HISTORY: Sepsis dyspnea COMPARISON STUDY: 10/13/2018 FINDINGS: Moderate cardiomegaly. Permanent cardiac pacemaker/fibrillator. Improved pulmonary edema compared to the prior study. Residual infiltrative process right base. IMPRESSION: 1. Moderate cardiomegaly with components of pulmonary vascular congestion/mild pulmonary edema. 2. These findings are improved compared to the prior study. 3. Residual infiltrative process right lung base. The above report was generated using voice recognition software. It may contain grammatical, syntax or spelling errors. Electronically signed by: Samuel Lindo M.D. 12/01/2018 6:[address] head/brain wo con CT DOSE: HISTORY: Trauma fall TECHNIQUE: Multiaxial CT images of the head were performed without the use of intravenous contrast. A dose lowering technique was utilized adhering to the principles of ALARA. Comparison: 09/27/2018 Findings: The paranasal sinuses and mastoid air cells are clear. The calvarium and skull base are intact. The ventricles and sulci are within normal limits. There is no mass, hematoma, midline shift, or acute infarct. Minimal residual mucosal thickening right mastoid air cells. Impression: No acute intracranial abnormality. Chronic changes as noted. The above report was generated using voice recognition software. It may contain grammatical, syntax or spelling errors. Electronically signed by: Samuel Lindo M.D. 12/01/2018 6:[address] cervical spine wo con CT DOSE: 1074.04 mGy.cm HISTORY: Trauma fall TECHNIQUE: Multiaxial CT images of the cervical spine were performed and refo rmatted in the sagittal and coronal plane without the use of contrast. A dose lowering technique was utilized adhering to the principles of ALARA. COMPARISON: 09/03/2018 FINDINGS: Postoperative changes as noted previously. No acute posttraumatic abnormality. Vertebral body stature is unremarkable. C1-C2 complex is intact. IMPRESSION: Chronic and postoperative change. No acute process. The above report was generated using voice recognition software. It may contain grammatical, syntax or spelling errors. Electronically signed by: Samuel Lindo M.D. 12/01/2018 7:[address] lumbar spine wo con CT DOSE: HISTORY: Pain. Nausea. follow up epidural abscess TECHNIQUE: Multiaxial CT images of the lumbar spine were performed and reformatted in the sagittal and coronal plane without the use of contrast. A dose lowering technique was utilized adhering to the principles of ALARA. COMPARISON: 09/30/2018 FINDINGS: Improved exam. Interval placement of interpedicular screws at L1 and L2. Improved osteolytic bone changes of L3 as well as L4. Improved soft tissue postoperative changes posterior aspect mid to low lumbar spine. No evidence for compression deformity. IMPRESSION: 1. Improved postoperative evaluation of the lumbar spine 2. Interval postoperative changes as described with improvement of the procedure described ostial lysis and erosive changes. 3. There have been placement of lumbar spine stabilization devices with improved soft tissue evaluation posterior to the spinal canal. 4. Small bilateral pleural effusions. The above report was generated using voice recognition software. It may contain grammatical, syntax or spelling errors. Electronically signed by: Samuel Lindo M.D. 12/01/2018 9:[address] abd pelvis wo con CT DOSE: 1108.44 mGy.cm HISTORY: Trauma. Pain. fall TECHNIQUE: Multiaxial CT images of the abdomen and pelvis were performed without contrast. A dose lowering technique was utilized adhering to the principles of ALARA. COMPARISON STUDY: 09/27/2018 FINDINGS: Bilateral pleural effusions mildly increased in the prior study. Mild cardiomegaly. Liver spleen and pancreas are grossly unremarkable. A horseshoe kidney is again noted. Nonobstructive bowel pattern. Mild bladder wall thickening unchanged in the prior study. No free fluid within the pole pelvic cul-de-sac. No acute posttraumatic bony change. Stable postoperative changes involving the lumbar spine. IMPRESSION: 1. Bilateral pleural effusions mildly increased in volume from the prior study. 2. Moderate cardiomegaly. 3. No acute process specifically of the abdomen or pelvis. The above report was generated using voice recognition software. It may contain grammatical, syntax or spelling errors. Electronically signed by: Samuel Lindo M.D. 12/01/2018 7:04 PM ECG Data Attestation: I personally reviewed and interpreted this ECG as follows: Indication: altered mental status Rate (beats per minute): 89 Rhythm: normal sinus Findings: + other (Concordant ST segments noted in anterior and lateral leads ) and + RBBB; no PAC and no PVC Comparison ECG Date: from (10/11/18) Change: no significant change Blood Pressure Blood Pressure Findings: Low blood pressure Blood Pressure Disposition: further management by hospitalist [facility] Narrative Additional history was obtained from the patient's significant other. Additional history was obtained from the prehospital personnel. The patient is a 67-year-old male who presented to the emergency department for an evaluation of altered mental status. The patient is currently residing at a halfway. He is recovering from an epidural abscess. The patient presents today after generalized weakness and altered mental status which have been going on since this morning. The patient was found to have significant anemia. He was not heme positive on rectal exam. I discussed the patient's laboratory and radiographic studies with him as well as his significant other. He was given blood transfusion for significant anemia with resultant myocardial infarction. I discussed the patient's condition with the on-call [facility] hospitalist. They have agreed to evaluate the patient in the emergency department for further management and disposition. The patient was also treated with IV fluids. He was reevaluated multiple times. His symptoms slowly improved while he is in the emergency department. He did not complain of any specific pain today but there was some history and his nursing notes that he may have had an episode of chest pain over the last 24 hours. Impression & Plan Non-ST elevated myocardial infarction (non-STEMI), PAULA (acute kidney injury), Altered mental status, Anemia, Hyperkalemia, Head injury, Weakness, Falls, Pleural effusion Critical Care Time Critical Care Time: Yes Total Critical Care Time: 60 I have personally spent greater than 60 minutes of critical care time in the direct management of this patient. This includes bedside care, interpretation of diagnostic studies, and testing, discussion with consultants, patient, and family members, and other required patient management activities. This 60 minutes is in excess of all separately billable procedures. Discharge Plan Visit Data *Final* Discharge Date/Time: 12/01/18 22:22 Chief Complaint: Confusion Stated Complaint: CHEST PAIN, CONFUSION ED Provider: Zeke Avendano Discharge Problem: Non-ST elevated myocardial infarction (non-STEMI), PAULA (acute kidney injury), Altered mental status, Anemia, Hyperkalemia, Head injury, Weakness, Falls, Pleural effusion Patient Disposition: Admitted As Inpatient Discharge Instructions Interventions: ED Discharge Assessment Last Done: 12/01/18 22:22 Discharge Problem: Altered mental status Qualifiers: Altered mental status type: unspecified Qualified Code(s): R41.82 - Altered mental status, unspecified Anemia Qualifiers: Anemia type: unspecified type Qualified Code(s): D64.9 - Anemia, unspecified Head injury Qualifiers: Encounter type: initial encounter Qualified Code(s): S09.90XA - Unspecified injury of head, initial encounter Falls Qualifiers: Encounter type: initial encounter Qualified Code(s): W19.XXXA - Unspecified fall, initial encounter The scribe's documentation has been prepared under my direction and personally reviewed by me in its entirety. I confirm that the note above accurately reflects all work, treatment, procedures, and medical decision making performed by me.
[2018-12-02] MEDS: POLYETHYLENE (MIRALAX) 17 GM PACK PO SCH ×4 (01:03→17:21)
[2018-12-02] MEDS: SODIUM CHLORIDE 0.9% 1000ML 1,000 ML IV SCH ×2 (02:24→12:01)
[2018-12-02] MEDS: OXYCODONE HCL IR 5 MG TAB (IMMEDIATE RELEASE) PO PRN ×2 (02:42→20:51)
[2018-12-02] MEDS ORDERED: HALOPERIDOL LACTATE 5 MG/ML 1 ML VIAL IM STA (03:39)
[2018-12-02 06:23] LABS: Hematocrit (blood only) 28.8 % (42-52); Hemoglobin 9.5 g/dL (14.0-18.0)
[2018-12-02 06:24] LABS: Basophils # (auto) 0.02 K/uL (0-0.2); Basophils % (auto) 0.3 %; Eosinophils # (auto) 0.04 K/uL (0-0.5); Eosinophils % (auto) 0.5 %; Hematocrit (blood only) 28.9 % (42-52); Hemoglobin 9.6 g/dL (14.0-18.0); Immature Granulocytes # (auto) 0.05 K/uL (0.00-0.02); Immature Granulocytes % (auto) 0.6 %; Lymphocytes # (auto) 0.71 K/uL (1.2-3.4); Lymphocytes % (auto) 9.2 %; Mean Corpuscular Hgb Conc 33.2 g/dL (32-36); Mean Corpuscular Volume 88.1 fL (80-100); Mean Platelet Volume 9.4 fL (7.4-10.4); Neutrophils # (auto) 5.88 K/uL (1.4-6.5); Neutrophils % (auto) 76.4 %; Platelet Count 168 K/uL (130-400); RDW Coefficient of Variation 17.7 % (11.5-14.5); RDW Standard Deviation 55.7 fL (36.4-46.3); Red Blood Count 3.28 M/uL (4.7-6.1)
[2018-12-02 06:34] LABS: INR 1.1 (0.9-1.1); Partial Thromboplastin Time 28.1 Seconds (21.0-31.0)
[2018-12-02 06:56] LABS: Albumin Level 3.1 gm/dl (3.4-5.0); BUN Creatinine Ratio 21.8 (10-20); Creatinine Clr Calc Pharmacy 42.5 ml/min; Est GFR (African American) 45.1; Est GFR (Non-African American) 38.9; Potassium 5.1 mmol/L (3.5-5.1)
[2018-12-02 06:59] LABS: Albumin Globulin Ratio 0.8 (0.9-2); Bilirubin,Total 1.2 mg/dl (0.2-1); Globulin 3.7 gm/dl (2.5-4.0); Total Protein 6.8 gm/dl (6.4-8.2)
[2018-12-02] MEDS ORDERED: [UNRECOGNIZED DRUG - OTHER] PO SCH (08:00)
--- NOTE | 2018-12-02 09:22 | Cardiology Consultation ---
Date of Consultation December 02, 2018 Assessment & Plan (1) Troponin level elevated: Mr. 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 Patient reportedly complained of chest pain yesterday but when the EMS arrived at [facility] -- he denied any chest pain and he continues to deny chest pain. His elevated troponin I level is static and does not appear to be trending up or down, his Echocardiogram shows severely reduced LV systolic function, inferior akinesis and otherwise global hypokinesis (stable when compared to 10/19/2018 Echo), and he was quite anemic on admission -- This does not appear to be an acute coronary syndrome. Suspect that his elevated Troponin I level is related to marked anemia, PAULA, recent NSTEMI in October 2018. Additionally, patient had a CARDIAC CATHETERIZATION in July 2018 showing: -- LMCA -- Mildly calcified, 30% distal stenosis. -- LAD -- Diffuse moderate to severe proximal and midvessel stenoses, 100% midvessel occlusion. -- RI -- 99% Midvessel subtotal occlusion, culprit vessel - not amenable to PCI. -- LCx -- Diffuse midvessel disease. -- OM2 -- 80% Proximal stenosis. -- RCA -- Sequential 95% and 90% midvessel stenoses. -- DELATORRE to Distal LAD Graft -- Widely patent. -- FERNANDO to Acute Marginal Graft -- Patent. -- Radial Artery Graft to OM -- Occluded. -- MEDICAL MANAGEMENT RECOMMENDED> At this point, we will not pursue further ischemic work-up and we recommend ongoing Medical Management of his Multivessel CAD and Ischemic Cardiomyopathy. We recommend the following: -- Continue Aspirin 81 mg daily. -- Continue Toprol XL 50 mg daily. -- Continue Plavix 75 mg daily. -- Atorvastatin 40 mg daily. -- If patient does experience any angina pectoris -- titrate BB or add Imdur. -- Maintain Hgb at 9.5 gm/dl or higher. Further evaluate cause / source of anemia. -- Aggressively manage underlying DM. Thank you for asking us to see this patient in consultation. We will continue to follow this patient while hospitalized and following discharge. Present on Admission?: Yes (2) CAD, multiple vessel: As outlined above. Present on Admission?: Yes Supervising Physician Co-Signing Physician Notes Zeke Woodson MD History of Present Illness Reason for Consultation: -- Elevated Troponin I. -- Multivessel CAD s/p CABG x 3 Vessels; Medical Management. Requesting Physician: Malik Fernandez MD Attending Physician: Zeke Woodson MD History of Present Illness Mr. 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 Patient is currently being seen in [facility], and remains somewhat lethargic and is slow to answer questions -- doubt that he is a reliable historian. He currently denies any chest pain, heaviness, tightness, pressure, or angina pectoris. He denies any neck, jaw, back, or arm pain. He denies any SOB, unusual STUBBS, orthopnea, pnd, or any recent weight gain. He denies palpitations, syncope, or near syncope. Patient further denies any fever, chills, or night sweats. No recent changes in his medications. His EKG on admission shows NSR with a 1st degree AV block and an RBBB pattern. Troponin I levels are 7.370 and 7.310 ng/ml respectively. Procalcitonin and Lactic Acid levels are elevated. Blood C&S is pending. Hgb is up to 9.5 g/dl from 7.4 g/dl following transfusion x 2 uPRBC's. Stool Guiaic is negative in the ER. Allergies Allergy/AdvReac Type Severity Reaction Status Date / Time No Known Drug Allergies Allergy Unknown Unverified 12/01/18 19:27 Home Medications Home Medications Medication Instructions Recorded Confirmed Type Eternal Feed Order 60 ml PEG HS 12/01/18 12/01/18 History Flush 120 ml PEG UD 12/01/18 12/01/18 History House Shake 1 dose PO TIDM 12/01/18 12/01/18 History Prune Juice/Stewed Prunes 1 dose PO UD PRN 12/01/18 12/01/18 History acetaminophen [Tylenol] 975 mg PO Q8 PRN 12/01/18 12/01/18 History aspirin [Aspir-81] 81 mg PO DAILY 12/01/18 12/01/18 History bisacodyl [Dulcolax (bisacodyl)] 10 mg OR UD PRN 12/01/18 12/01/18 History cholecalciferol (vitamin D3) 2,000 unit PO DAILY 12/01/18 12/01/18 History [Vitamin D3] clopidogrel [Plavix] 75 mg PO DAILY 12/01/18 12/01/18 History cyanocobalamin (vitamin B-12) 1,000 mcg PO DAILY 12/01/18 12/01/18 History [Vitamin B-12] divalproex 250 mg PO Q12 12/01/18 12/01/18 History famotidine 40 mg PO DAILY 12/01/18 12/01/18 History finasteride 5 mg PO DAILY 12/01/18 12/01/18 History haloperidol lactate [Haldol] 1 mg IM Q6 PRN 12/01/18 12/01/18 History heparin (porcine) 5,000 unit SUBCUT TID 12/01/18 12/01/18 History insulin lispro [Humalog U-100 1 sliding scale dose SUBCUT 12/01/18 12/01/18 History Insulin] USEASDIRECTD magnesium oxide 400 mg PO DAILY 12/01/18 12/01/18 History metoprolol succinate [Toprol XL] 50 mg PO DAILY 12/01/18 12/01/18 History nut.tx.gluc.intol,lac-free,soy 300 ea FEEDING TUBE UD 12/01/18 12/01/18 History [Glucerna 1.5 Terrell] nut.tx.gluc.intol,lac-free,soy 300 ea FEEDING TUBE UD 12/01/18 12/01/18 History [Glucerna 1.5 Terrell] oxycodone 5 mg PO Q4 PRN 12/01/18 12/01/18 History polyethylene glycol 3350 [Miralax] 17 g PO Q6 12/01/18 12/01/18 History risperidone [Risperdal] 0.5 mg PO TID 12/01/18 12/01/18 History tamsulosin 0.4 mg PO DAILY 12/01/18 12/01/18 History Patient History Medical History Vitamin D deficiency (Acute) Urinary stream splitting (Acute) Urinary incontinence (Acute) Uncontrolled type 2 diabetes mellitus with retinopathy, with long-term current use of insulin (Acute) Uncontrolled type 2 diabetes mellitus with neurologic complication, with long-t erm current use of insulin (Acute) Thyroid disorder (Acute) Spinal stenosis (Acute) Sleep-wake schedule disorder, delayed phase type (Acute) Restless legs syndrome (Acute) Pyuria (Acute) Proliferative diabetic retinopathy (Acute) Obstructive sleep apnea (Acute) Obesity, Class II, BMI 35-39.9 (Acute) Nicotine dependence (Acute) Hallucinations (Acute) Exposure to influenza (Acute) Edema (Acute) Dyslipidemia (Acute) Diverticulosis (Acute) Disc degeneration, lumbar (Acute) Diabetic retinopathy (Acute) Diabetic peripheral neuropathy (Acute) Depression (Acute) Carotid artery stenosis (Acute) Cardiac defibrillator in place (Acute) CAD, multiple vessel (Acute) Benign localized hyperplasia of prostate with urinary obstruction (Acute) Arteriosclerotic coronary artery disease (Acute) Anxiety (Acute) Anemia (Acute) Alteration in tactile sense (Acute) Abscess in epidural space of lumbar spine (Acute) Acute UTI (urinary tract infection) Difficult airway for 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 Admitted [facility] 10/18/11 for onset of incapacitating cervical myelopathy. 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 Pt had c-spine surgery, subsequent prolonged hospital admission, complicated post-op course. Difficult intubation Sudden cardiac Post-op 2011 [facility]. Now has ICD. Sleep apnea PT NOT CURRENTLY CPAP 2/2 recurrent sinus infections. WILL SEE SLEEP MEDICINE/DR. ARCHULETA LATE 2017 Diabetes mellitus, type 2 IDDM. Degenerative disc disease Chronic back pain CHRONIC PAIN IN LEFT LEG Ischemic cardiomyopathy EF WNL 11/2017 CAD (coronary artery disease) s/p triple CABG 2002 Full dentures (Acute) Obese (Acute) Heart disease (Acute) HTN (hypertension) (Acute) High cholesterol (Acute) Coagulase-negative staphylococcal infection ICD (implantable cardioverter-defibrillator) in place Paraspinal abscess Surgical History History of esophagogastroduodenoscopy (EGD) History of colonoscopy History of cardiac cath 2011 AT [facility] - UNSURE IF HE HAS STENTS. History of tracheostomy Hx of transurethral resection of prostate History of cataract extraction with lens replacement Hx of tonsillectomy (Acute) H/O cervical spine surgery (Acute) ACDI C3-4, C7 corpectomy, removal of C7 intramedullary mass. History of lumbar spinal fusion (Acute) S/P triple vessel bypass (Acute) [facility]2002 History of incision and drainage Lumbar spine on 08/11; complicated by difficult intubation with only #6.5 ETT able to be placed and patient kept intubated post op History of lumbar surgery 09/10/18 Glidescope 3 okay visualization but difficulty passing ETT, unable to pass 8.0, able to pass 7.0 with some difficulty Family History Other Diabetes Hypertension No pertinent family history Social History Preferred Language: Mauritian Communication Ability: Effective Visual Impairment: No Limitations Hearing Ability: Normal Dinkey Operator Slate Required: No Beliefs That Will Affect Care: None marital status: Current Living Situation: [facility] Current Living Situation Comment: temporarily living at [facility] Other Information That Helps Us Care for You: No Feels Safe at Home: Declines to Answer Smoking Status: Former smoker Tobacco Type: smokeless tobacco Second Hand Exposure: No Hx Alcohol Use: No Hx Substance Use: No Physical Exam Physical Exam: GENERAL: Patient is in no acute distress. HEENT: Area of resolving ecchymosis on right forehead. EOM's intact. Facies symmetric. No perioral cyanosis. NECK: No JVD. JVP is not elevated. CHEST and LUNGS: Clear to auscultation throughout all lung davies. No wheezes, rales, or rhonchi. CVS: S1 and S2 are regular, distant without obvious murmurs, gallops, or rubs. PMI is nonpalpable. No lifts, heaves, or thrills. No abdominal aortic or renal bruits. ABDOMINAL EXAM: Bowel sounds are present. PEG tube is in place. No masses, organomegaly, or tenderness. EXTREMITIES: No clubbing or cyanosis. Trace to +1 bipedal and leg edema. Extremities appear to be well perfused. NEUROLOGIC EXAM: Patient is somewhat lethargic but arouses to verbal stimuli. Answers questions slowly, still appears confused. ECHOCARDIOGRAM 12/02/2018: -- Dilated LV with severely reduced LV systolic function. -- LVEF 25% to 30% with inferior akinesis and remaining segments are hypokinetic. -- When compared to 10/19/2018 Echo -- no significant change. Results & Data Vital Signs (Past 12 Hours) Vital Signs Temp Pulse Pulse Resp BP BP BP 12/02/18 07:14 36.5 C 86 18 120/72 12/02/18 06:01 36.4 C L 61 18 127/71 12/02/18 05:32 36.4 C L 90 18 101/66 12/02/18 04:32 36.4 C L 86 20 114/59 L 12/02/18 04:02 36.7 C 80 21 97/68 L 12/02/18 03:49 36.7 C 88 22 101/77 12/02/18 03:47 36.6 C 90 20 110/66 12/02/18 03:24 36.6 C 85 18 111/61 12/02/18 03:04 36.4 C L 88 20 111/61 12/02/18 02:27 36.7 C 93 H 20 163/107 H 12/02/18 01:27 36.6 C 87 19 153/66 H 12/02/18 00:57 36.6 C 92 H 20 138/72 12/02/18 00:42 36.4 C L 90 18 144/43 H 12/02/18 00:22 36.7 C 12/02/18 00:17 86 18 139/70 12/01/18 22:50 86 20 114/85 12/01/18 22:01 85 29 H 107/68 12/01/18 22:00 85 26 H 12/01/18 21:45 87 23 12/01/18 21:31 81 14 112/69 12/01/18 21:30 83 25 H 12/01/18 21:19 85 19 94/63 L Pulse Ox 12/02/18 07:14 90 12/02/18 06:01 93 12/02/18 05:32 90 12/02/18 04:32 100 12/02/18 04:02 93 12/02/18 03:49 93 12/02/18 03:47 93 12/02/18 03:24 95 12/02/18 03:04 93 12/02/18 02:27 98 12/02/18 01:27 95 12/02/18 00:57 100 12/02/18 00:42 98 12/02/18 00:22 12/02/18 00:17 100 12/01/18 22:50 96 12/01/18 22:01 12/01/18 22:00 12/01/18 21:45 12/01/18 21:31 100 12/01/18 21:30 91 12/01/18 21:19 99 Laboratory Results Laboratory Results - last 24 hr 12/01/18 12/01/18 12/01/18 18:30 18:30 18:30 WBC 8.37 RBC 2.45 L Hgb 7.4 L POC Hgb Hct 22.4 L POC Hct MCV 91.4 MCH 30.2 MCHC 33.0 RDW Std Deviation 58.1 H RDW Coeff of Norbert 17.7 H Plt Count 190 MPV 9.2 Immature Gran % (Auto) 1.0 Neut % (Auto) 77.3 Lymph % (Auto) 5.7 [place] % (Auto) 15.1 Eos % (Auto) 0.4 Baso % (Auto) 0.5 Immature Gran # (Auto) 0.08 H Neut # (Auto) 6.48 Lymph # (Auto) 0.48 L [place] # (Auto) 1.26 H Eos # (Auto) 0.03 Baso # (Auto) 0.04 Polychromasia 1+ ESR PT 10.9 INR 1.1 APTT 27.4 PTT Ratio 1.0 VBG pH VBG pCO2 VBG pO2 VBG HCO3 VBG O2 Saturation VBG Base Excess Barometric Pressure POC Sodium Sodium 127 L POC Potassium Potassium 5.5 H POC Chloride Chloride 95 L Carbon Dioxide 21 POC Total CO2 Anion Gap 11.0 POC Anion Gap POC BUN BUN 40 H Creatinine 2.04 H POC Creatinine Est Cr Clr Drug Dosing 41.1 Est GFR ( Amer) 38.5 Est GFR (Non-Af Amer) 33.2 BUN/Creatinine Ratio 19.4 Glucose 221 H POC Glucose (other) Lactate Calcium 8.4 L POC Ioniz Calcium Yg Magnesium Total Bilirubin 0.7 AST 63 H ALT 36 Alkaline Phosphatase 135 H Troponin I C-Reactive Protein Total Protein 6.7 Albumin 2.8 L Globulin 3.9 Albumin/Globulin Ratio 0.7 L Procalcitonin Urine Color Urine Appearance Urine pH Ur Specific [place] Urine Protein Urine Glucose (UA) Urine Ketones Urine Blood Urine Nitrite Urine Bilirubin Urine Urobilinogen Ur Leukocyte Esterase Urine WBC (Auto) Urine RBC (Auto) U Hyaline Cast (Auto) U Epithel Cells (Auto) Urine Bacteria (Auto) Nasal Screen MRSA (PCR) Valproic Acid Blood Type Antibody Screen Antibody Identification Direct Antiglob Test ELENA (IgG-AHG) ELENA, Polyspecific ELENA C3b, C3d 5 Min Crossmatch 12/01/18 12/01/18 12/01/18 18:30 18:30 18:30 WBC RBC Hgb POC Hgb Hct POC Hct MCV MCH MCHC RDW Std Deviation RDW Coeff of Norbert Plt Count MPV Immature Gran % (Auto) Neut % (Auto) Lymph % (Auto) [place] % (Auto) Eos % (Auto) Baso % (Auto) Immature Gran # (Auto) Neut # (Auto) Lymph # (Auto) [place] # (Auto) Eos # (Auto) Baso # (Auto) Polychromasia ESR 17 H PT INR APTT PTT Ratio VBG pH VBG pCO2 VBG pO2 VBG HCO3 VBG O2 Saturation VBG Base Excess Barometric Pressure POC Sodium Sodium POC Potassium Potassium POC Chloride Chloride Carbon Dioxide POC Total CO2 Anion Gap POC Anion Gap POC BUN BUN Creatinine POC Creatinine Est Cr Clr Drug Dosing Est GFR ( Amer) Est GFR (Non-Af Amer) BUN/Creatinine Ratio Glucose POC Glucose (other) Lactate 3.6 H* Calcium POC Ioniz Calcium Yg Magnesium Total Bilirubin AST ALT Alkaline Phosphatase Troponin I C-Reactive Protein Total Protein Albumin Globulin Albumin/Globulin Ratio Procalcitonin 0.53 H Urine Color Urine Appearance Urine pH Ur Specific [place] Urine Protein Urine Glucose (UA) Urine Ketones Urine Blood Urine Nitrite Urine Bilirubin Urine Urobilinogen Ur Leukocyte Esterase Urine WBC (Auto) Urine RBC (Auto) U Hyaline Cast (Auto) U Epithel Cells (Auto) Urine Bacteria (Auto) Nasal Screen MRSA (PCR) Valproic Acid Blood Type Antibody Screen Antibody Identification Direct Antiglob Test ELENA (IgG-AHG) ELENA, Polyspecific ELENA C3b, C3d 5 Min Crossmatch 12/01/18 12/01/18 12/01/18 18:30 18:30 18:31 WBC RBC Hgb POC Hgb Hct POC Hct MCV MCH MCHC RDW Std Deviation RDW Coeff of Norbert Plt Count MPV Immature Gran % (Auto) Neut % (Auto) Lymph % (Auto) [place] % (Auto) Eos % (Auto) Baso % (Auto) Immature Gran # (Auto) Neut # (Auto) Lymph # (Auto) [place] # (Auto) Eos # (Auto) Baso # (Auto) Polychromasia ESR PT INR APTT PTT Ratio VBG pH 7.43 H VBG pCO2 32 L VBG pO2 29 VBG HCO3 21 VBG O2 Saturation < 60.0 VBG Base Excess -2.9 Barometric Pressure 726.3 POC Sodium Sodium POC Potassium Potassium POC Chloride Chloride Carbon Dioxide POC Total CO2 Anion Gap POC Anion Gap POC BUN BUN Creatinine POC Creatinine Est Cr Clr Drug Dosing Est GFR ( Amer) Est GFR (Non-Af Amer) BUN/Creatinine Ratio Glucose POC Glucose (other) Lactate Calcium POC Ioniz Calcium Yg Magnesium 3.0 H Total Bilirubin AST ALT Alkaline Phosphatase Troponin I 7.310 H* C-Reactive Protein 2.91 H Total Protein Albumin Globulin Albumin/Globulin Ratio Procalcitonin Urine Color Urine Appearance Urine pH Ur Specific [place] Urine Protein Urine Glucose (UA) Urine Ketones Urine Blood Urine Nitrite Urine Bilirubin Urine Urobilinogen Ur Leukocyte Esterase Urine WBC (Auto) Urine RBC (Auto) U Hyaline Cast (Auto) U Epithel Cells (Auto) Urine Bacteria (Auto) Nasal Screen MRSA (PCR) Valproic Acid 33 L Blood Type Antibody Screen Antibody Identification Direct Antiglob Test ELENA (IgG-AHG) ELENA, Polyspecific ELENA C3b, C3d 5 Min Crossmatch 12/01/18 12/01/18 12/01/18 18:38 19:13 20:10 WBC RBC Hgb POC Hgb 7.5 L Hct POC Hct 22 L MCV MCH MCHC RDW Std Deviation RDW Coeff of Norbert Plt Count MPV Immature Gran % (Auto) Neut % (Auto) Lymph % (Auto) [place] % (Auto) Eos % (Auto) Baso % (Auto) Immature Gran # (Auto) Neut # (Auto) Lymph # (Auto) [place] # (Auto) Eos # (Auto) Baso # (Auto) Polychromasia ESR PT INR APTT PTT Ratio VBG pH VBG pCO2 VBG pO2 VBG HCO3 VBG O2 Saturation VBG Base Excess Barometric Pressure POC Sodium 126 L Sodium POC Potassium 5.5 H Potassium POC Chloride 95 L Chloride Carbon Dioxide POC Total CO2 20 L Anion Gap POC Anion Gap 18.0 POC BUN 36 H BUN Creatinine POC Creatinine 1.9 H Est Cr Clr Drug Dosing Est GFR ( Amer) Est GFR (Non-Af Amer) BUN/Creatinine Ratio Glucose POC Glucose (other) 235 H Lactate Calcium POC Ioniz Calcium Yg 1.06 L Magnesium Total Bilirubin AST ALT Alkaline Phosphatase Troponin I C-Reactive Protein Total Protein Albumin Globulin Albumin/Globulin Ratio Procalcitonin Urine Color Dark Yellow Urine Appearance Clear Urine pH 5.0 Ur Specific [place] 1.026 Urine Protein Trace H Urine Glucose (UA) Negative Urine Ketones Trace H Urine Blood Negative Urine Nitrite Negative Urine Bilirubin Negative Urine Urobilinogen Negative Ur Leukocyte Esterase Trace H Urine WBC (Auto) 1-5 Urine RBC (Auto) 5-10 H U Hyaline Cast (Auto) 5-10 H U Epithel Cells (Auto) 10-20 H Urine Bacteria (Auto) Negative Nasal Screen MRSA (PCR) Valproic Acid Blood Type A Positive Antibody Screen POSITIVE A Antibody Identification Anti-E Direct Antiglob Test Negative ELENA (IgG-AHG) Neg ELENA, Polyspecific Neg ELENA C3b, C3d 5 Min Neg Crossmatch See Detail 12/01/18 12/01/18 12/02/18 23:22 23:44 06:12 WBC 7.70 RBC 3.28 L Hgb 9.6 L POC Hgb Hct 28.9 L POC Hct MCV 88.1 MCH 29.3 MCHC 33.2 RDW Std Deviation 55.7 H RDW Coeff of Norbert 17.7 H Plt Count 168 MPV 9.4 Immature Gran % (Auto) 0.6 Neut % (Auto) 76.4 Lymph % (Auto) 9.2 [place] % (Auto) 13.0 Eos % (Auto) 0.5 Baso % (Auto) 0.3 Immature Gran # (Auto) 0.05 H Neut # (Auto) 5.88 Lymph # (Auto) 0.71 L [place] # (Auto) 1.00 H Eos # (Auto) 0.04 Baso # (Auto) 0.02 Polychromasia ESR PT INR APTT PTT Ratio VBG pH VBG pCO2 VBG pO2 VBG HCO3 VBG O2 Saturation VBG Base Excess Barometric Pressure POC Sodium Sodium POC Potassium Potassium POC Chloride Chloride Carbon Dioxide POC Total CO2 Anion Gap POC Anion Gap POC BUN BUN Creatinine POC Creatinine Est Cr Clr Drug Dosing Est GFR ( Amer) Est GFR (Non-Af Amer) BUN/Creatinine Ratio Glucose POC Glucose (other) Lactate Calcium POC Ioniz Calcium Yg Magnesium Total Bilirubin AST ALT Alkaline Phosphatase Troponin I 7.370 H* C-Reactive Protein Total Protein Albumin Globulin Albumin/Globulin Ratio Procalcitonin Urine Color Urine Appearance Urine pH Ur Specific [place] Urine Protein Urine Glucose (UA) Urine Ketones Urine Blood Urine Nitrite Urine Bilirubin Urine Urobilinogen Ur Leukocyte Esterase Urine WBC (Auto) Urine RBC (Auto) U Hyaline Cast (Auto) U Epithel Cells (Auto) Urine Bacteria (Auto) Nasal Screen MRSA (PCR) Negative Valproic Acid Blood Type Antibody Screen Antibody Identification Direct Antiglob Test ELENA (IgG-AHG) ELENA, Polyspecific ELENA C3b, C3d 5 Min Crossmatch 12/02/18 12/02/18 12/02/18 06:12 06:12 06:12 WBC RBC Hgb 9.5 L POC Hgb Hct 28.8 L POC Hct MCV MCH MCHC RDW Std Deviation RDW Coeff of Norbert Plt Count MPV Immature Gran % (Auto) Neut % (Auto) Lymph % (Auto) [place] % (Auto) Eos % (Auto) Baso % (Auto) Immature Gran # (Auto) Neut # (Auto) Lymph # (Auto) [place] # (Auto) Eos # (Auto) Baso # (Auto) Polychromasia ESR PT 11.0 INR 1.1 APTT 28.1 PTT Ratio 1.0 VBG pH VBG pCO2 VBG pO2 VBG HCO3 VBG O2 Saturation VBG Base Excess Barometric Pressure POC Sodium Sodium 129 L POC Potassium Potassium 5.1 POC Chloride Chloride 96 L Carbon Dioxide 22 POC Total CO2 Anion Gap 11.0 POC Anion Gap POC BUN BUN 39 H Creatinine 1.79 H POC Creatinine Est Cr Clr Drug Dosing 42.5 Est GFR ( Amer) 45.1 Est GFR (Non-Af Amer) 38.9 BUN/Creatinine Ratio 21.8 H Glucose 201 H POC Glucose (other) Lactate Calcium 9.0 POC Ioniz Calcium Yg Magnesium Total Bilirubin 1.2 H D AST 65 H ALT 46 Alkaline Phosphatase 128 H Troponin I C-Reactive Protein Total Protein 6.8 Albumin 3.1 L Globulin 3.7 Albumin/Globulin Ratio 0.8 L Procalcitonin Urine Color Urine Appearance Urine pH Ur Specific [place] Urine Protein Urine Glucose (UA) Urine Ketones Urine Blood Urine Nitrite Urine Bilirubin Urine Urobilinogen Ur Leukocyte Esterase Urine WBC (Auto) Urine RBC (Auto) U Hyaline Cast (Auto) U Epithel Cells (Auto) Urine Bacteria (Auto) Nasal Screen MRSA (PCR) Valproic Acid Blood Type Antibody Screen Antibody Identification Direct Antiglob Test ELENA (IgG-AHG) ELENA, Polyspecific ELENA C3b, C3d 5 Min Crossmatch Medications Administered Active Medications Generic Name Dose Route Start Last Admin Trade Name Freq PRN Reason Stop Dose Admin Acetaminophen 1,000 mg 12/01/18 23:21 12/02/18 02:18 Ofirmev IV 12/31/18 23:20 1,000 mg Q8H PRN Administration Pain or Fever Acetaminophen 650 mg 12/01/18 23:21 Tylenol PO 12/31/18 23:20 Q4H PRN Pain or Fever Al Hydrox/Mg Hydrox/Simethicone 15 ml 12/01/18 23:21 Maalox PO 12/31/18 23:20 Q4H PRN Dyspepsia Aspirin 81 mg 12/02/18 09:00 12/02/18 09:26 Ecotrin Ectab PO 01/01/19 08:59 81 mg DAILY AKYLYNN Administration Bisacodyl 10 mg 12/01/18 23:21 Dulcolax OR 12/31/18 23:20 UD PRN Constipation Clopidogrel Bisulfate 75 mg 12/02/18 09:00 12/02/18 09:27 Plavix PO 01/01/19 08:59 75 mg DAILY KAYLYNN Administration Cyanocobalamin 1,000 mcg 12/02/18 09:00 12/02/18 09:24 Vitamin B-12 PO 01/01/19 08:59 1,000 mcg DAILY KAYLYNN Administration Divalproex Sodium 250 mg 12/02/18 09:00 12/02/18 09:25 Depakote Delay Release PO 01/01/19 08:59 250 mg Q12 KAYLYNN Administration Famotidine 40 mg 12/02/18 09:00 12/02/18 09:27 Pepcid PO 01/01/19 08:59 40 mg DAILY KAYLYNN Administration Finasteride 5 mg 12/02/18 09:00 12/02/18 09:29 Proscar PO 01/01/19 08:59 5 mg DAILY KAYLYNN Administration Haloperidol Lactate 1 mg 12/01/18 23:21 Haldol IM 12/31/18 23:20 Q6 PRN Agitation Heparin Sodium (Porcine) 5,000 units 12/02/18 09:00 12/02/18 09:29 Heparin Sodium (Porcine) SQ 01/01/19 08:59 5,000 units TID KAYLYNN Administration Sodium Chloride 1,000 mls @ 80 mls/hr 12/01/18 23:21 12/02/18 06:04 Nss 1000ml IV 12/31/18 23:20 80 mls/hr .[id number] KAYLYNN Infusion Sodium Chloride 250 mls @ 15 mls/hr 12/01/18 23:42 Nss IV 12/31/18 23:41 .[id number] PRN For Transfusion Magnesium Hydroxide 30 ml 12/01/18 23:21 Milk Of Magnesia PO 12/31/18 23:20 Q12H PRN Constipation Magnesium Oxide 400 mg 12/02/18 09:00 12/02/18 09:25 Mag-Ox PO 01/01/19 08:59 400 mg DAILY KAYLYNN Administration Metoprolol Succinate 50 mg 12/02/18 09:00 12/02/18 09:26 Toprol Xl PO 01/01/19 08:59 50 mg DAILY KAYLYNN Administration Nutritional Formula 60 ml 12/02/18 21:00 Patient's Own Enteral Feeding PEG 01/01/19 20:59 HS KAYLYNN Nutritional Formula 300 ml 12/02/18 08:00 Patient's Own Enteral Feeding PEG 01/01/19 07:59 TIDM KAYLYNN Ondansetron HCl 4 mg 12/01/18 23:21 Zofran IV 12/31/18 23:20 Q6H PRN NAUSEA/VOMITING Oxycodone HCl 5 mg 12/01/18 23:21 12/02/18 02:42 Roxicodone Immediate Rel PO 12/15/18 23:20 5 mg Q4 PRN Administration moderate pain Polyethylene Glycol 17 gm 12/02/18 00:00 12/02/18 06:03 Miralax Powder Packet PO 01/01/19 00:00 Not Given Q6 KAYLYNN Risperidone 0.5 mg 12/02/18 09:00 12/02/18 09:25 Risperdal PO 01/01/19 08:59 0.5 mg TID KAYLYNN Administration Sterile Water 120 ea 12/02/18 08:00 Tube Feeding Water Flush PEG 01/01/19 07:59 TIDM KAYLYNN Tamsulosin HCl 0.4 mg 12/02/18 09:00 12/02/18 09:27 Flomax PO 01/01/19 08:59 0.4 mg DAILY KAYLYNN Administration Vitamin D 2,000 units 12/02/18 09:00 12/02/18 09:28 Vitamin D3 PO 01/01/19 08:59 2,000 units DAILY KAYLYNN Administration
[2018-12-02] MEDS: CYANOCOBALAMIN 500 MCG TABLET (VITAMIN B-12) PO SCH (09:24)
[2018-12-02] MEDS: MAGNESIUM OXIDE 400 MG TAB PO SCH (09:25)
[2018-12-02] MEDS: risperiDONE 0.5 MG TABLET PO SCH ×3 (09:25→20:52)
[2018-12-02] MEDS: DIVALPROEX DELAY RELEASE 250 MG TABEC PO SCH ×2 (09:25→20:52)
[2018-12-02] MEDS: ASPIRIN 81 MG ECTAB PO SCH (09:26)
[2018-12-02] MEDS: METOPROLOL SUCC 50MG EXT REL TAB PO SCH (09:26)
[2018-12-02] MEDS: TAMSULOSIN HCL 0.4 MG CAP PO SCH (09:27)
[2018-12-02] MEDS: FAMOTIDINE 20 MG TAB PO SCH (09:27)
[2018-12-02] MEDS: CLOPIDOGREL BISULFATE 75 MG TAB PO SCH (09:27)
[2018-12-02] MEDS: CHOLECALCIFEROL 1,000 UNITS TAB PO SCH (09:28)
[2018-12-02] MEDS: HEPARIN SOD 5,000 UNIT/0.5 ML VIAL SQ SCH ×3 (09:29→20:52)
[2018-12-02] MEDS: FINASTERIDE 5 MG TAB PO SCH (09:29)
[2018-12-02] MEDS: [UNRECOGNIZED DRUG - OTHER] PEG SCH ×3 (10:25→17:22)
[2018-12-02] MEDS: [UNRECOGNIZED DRUG - REMARK] PEG SCH ×3 (10:25→17:20)
[2018-12-02] MEDS: ATORVASTATIN 40 MG TAB PO SCH (12:00)
[2018-12-02] MEDS: INSULIN ASPART 100 UNITS/ML 3 ML PEN SC SCH ×3 (13:15→20:53)
--- NOTE | 2018-12-02 14:19 | Hospitalist Progress Note ---
Date of Service December 02, 2018 Assessment & Plan (1) Altered mental status: Primarily lethargy; patient will wake up and speak, but then falls asleep. - Ddx includes medication-induced (on standing valproic acid & risperidone), infection (unlikely given clean imaging, normal WBC, and no vital sign changes), or other metabolic cause (also less likely given his normal lab work). - Will lower risperidone dose to BID instead of TID - Continue valproic acid as his level is only 33. - Monitor for fevers - Consider neurology consult if his mental status doesn't clear (2) Non-ST elevated myocardial infarction (non-STEMI): Troponin was 7.31 upon admission, then 7.37. Troponin had peaked at 33.2 on 10/12/2018. Seen by cardiology who feel this is likely demand ischemia. - Keep hemoglobin > 9 - Continue medical management - No plan for intervention at this time. - Appreciate cardiology help (3) Anemia: Hgb was 7.4 on presentation. Unclear cause. Heme-negative in the ED. Received 2 units PRBCs on 12/01 with an appropriate increase in hgb to 9.5. - Will get iron studies, B12, folate - Unfortunately, iron studies may be thrown off because he already received blood. - Transfuse for hgb > 9 - Consider GI consult to look for source of bleeding (4) PAULA (acute kidney injury): Creatinine 2.04 upon admission. Most recent creatinine on 10/22/2018 was 1.29. - Suspect today is more of a prerenal/cardiorenal effect - Received 2L IV fluids in the ED, then was on 80 mL/hr rate on admission - Will stop IV fluids given his known ischemic cardiomyopathy - Monitor Cr (5) Depression: History of depression, plus a history of seizure per prior notes. - Continue divalproex - Taper risperidone to BID - Haloperidol IM as needed (6) Ischemic cardiomyopathy: Ischemic cardiomyopathy with EF 25-30% on echo on 12/02. - Continue medical management - Monitor volume status (7) Diabetes mellitus, type 2: A1c was 5.6% in 10/2018. In prior admisssions, he has not needed any long- acting, just sliding scale. - Sliding scale insulin - Continue on his usual PEG feeds supplements. (8) Abscess in epidural space of lumbar spine: CT of lumbar spine on 12/01 indicate no persistent abscess. Treatment upon discharge completed from last hospitalization: daptomycin IV, ceftriaxone IV, and caspofungin IV. - Hold any antibiotic or antifungal therapy (9) BPH (benign prostatic hyperplasia): Does not report LUTS. - Continue tamsulosin and finasteride. - Consider bladder scan as needed (10) Obstructive sleep apnea: If significant sleep apnea, will prescribe CPAP. (11) DVT prophylaxis: SCDs - Low DVT risk per admission calculator & do not want to give chemoprophylaxis in the setting of possible bleeding Subjective Denies any complaints to me. He woke up for me, answered questions, but then fell back asleep. Review of Systems Review of Systems: All systems reviewed & are unremarkable except as noted in HPI & below Physical Exam Constitutional: WD/WN, vitals as above + lethargic Eyes: EOM intact bilaterally; no conjunctival abnormality ENMT: external ear and nose normal, oropharynx normal Neck: trachea midline, no thyromegaly normal visual inspection Respiratory: normal respiratory effort, lungs clear to auscultation no respiratory distress Cardiovascular: RRR, no murmur, no edema Gastrointestinal (Abdomen): Inspection/Auscultation: abdomen normal to inspection; abdomen not distended Musculoskeletal: no cyanosis or clubbing, extremities motor strength 5/5 Skin: no rashes, warm and dry Neurologic: moves all extremities and awake Psychiatric: Orientation: alert, oriented to person and cooperative Results & Data Vital Signs (Past 12 Hours) Vital Signs Temp Pulse Pulse Resp BP BP Pulse Ox 12/02/18 11:18 36.5 C 75 20 107/71 98 12/02/18 07:14 36.5 C 86 18 120/72 90 12/02/18 06:01 36.4 C L 61 18 127/71 93 12/02/18 05:32 36.4 C L 90 18 101/66 90 12/02/18 04:32 36.4 C L 86 20 114/59 L 100 12/02/18 04:02 36.7 C 80 21 97/68 L 93 12/02/18 03:49 36.7 C 88 22 101/77 93 12/02/18 03:47 36.6 C 90 20 110/66 93 12/02/18 03:24 36.6 C 85 18 111/61 95 12/02/18 03:04 36.4 C L 88 20 111/61 93 12/02/18 02:27 36.7 C 93 H 20 163/107 H 98 PG Care Time/CCT Total # of Minutes Spent Total Time Spent with Patient: Total time spent is greater than 50% in coordination of care (as documented) at patient's floor/unit and/or counseling patient: (1) Altered mental status Altered mental status type: unspecified Qualified Code(s): R41.82 - Altered mental status, unspecified (2) Anemia Anemia type: unspecified type Qualified Code(s): D64.9 - Anemia, unspecified
[2018-12-02] MEDS: PEPTAMEN 1.5 CAL 1,000 ML BAG PEG SCH (20:37)
[2018-12-02] MEDS ORDERED: [UNRECOGNIZED DRUG - OTHER] PEG SCH (21:00)
[2018-12-02] MEDS: ONDANSETRON INJ 2 MG/ML 2 ML VIAL IV PRN (23:31)
[2018-12-02] MEDS: ALUMINUM/MAGNESIUM SUSP 30 ML UDC PO PRN (23:36)
[2018-12-03] MEDS: POLYETHYLENE (MIRALAX) 17 GM PACK PO SCH ×4 (00:09→18:26)
[2018-12-03] MEDS ORDERED: OLANZapine 5 MG TABLET PO ONE (01:54)
[2018-12-03] MEDS: OXYCODONE HCL IR 5 MG TAB (IMMEDIATE RELEASE) PO PRN ×3 (02:16→23:11)
[2018-12-03 07:09] LABS: Basophils # (auto) 0.01 K/uL (0-0.2); Basophils % (auto) 0.1 %; Eosinophils # (auto) 0.05 K/uL (0-0.5); Eosinophils % (auto) 0.5 %; Hematocrit (blood only) 33.9 % (42-52); Hemoglobin 11.2 g/dL (14.0-18.0); Immature Granulocytes # (auto) 0.08 K/uL (0.00-0.02); Immature Granulocytes % (auto) 0.8 %; Lymphocytes # (auto) 0.72 K/uL (1.2-3.4); Lymphocytes % (auto) 7.2 %; Mean Corpuscular Volume 89.9 fL (80-100); Mean Platelet Volume 9.7 fL (7.4-10.4); Monocytes # (auto) 1.29 K/uL (0.11-0.59); Monocytes % (auto) 12.9 %; Neutrophils # (auto) 7.86 K/uL (1.4-6.5); Neutrophils % (auto) 78.5 %; Platelet Count 200 K/uL (130-400); RDW Coefficient of Variation 18.6 % (11.5-14.5); RDW Standard Deviation 60.1 fL (36.4-46.3); Red Blood Count 3.77 M/uL (4.7-6.1); White Blood Count 10.01 K/uL (4.8-10.8)
[2018-12-03 07:18] LABS: Prothrombin Time 10.5 Seconds (9.0-12.0)
[2018-12-03 07:42] LABS: Albumin Level 2.8 gm/dl (3.4-5.0); BUN Creatinine Ratio 23.5 (10-20); Calcium 8.6 mg/dl (8.5-10.1); Creatinine Clr Calc Pharmacy 52.6 ml/min; Est GFR (African American) 52.4; Est GFR (Non-African American) 45.2; Magnesium 2.7 mg/dl (1.8-2.4); Potassium 4.8 mmol/L (3.5-5.1)
[2018-12-03] MEDS: [UNRECOGNIZED DRUG - REMARK] PEG SCH (07:42)
[2018-12-03] MEDS: risperiDONE 0.5 MG TABLET PO SCH ×2 (07:43→22:50)
[2018-12-03] MEDS: CYANOCOBALAMIN 500 MCG TABLET (VITAMIN B-12) PO SCH (07:43)
[2018-12-03] MEDS: ATORVASTATIN 40 MG TAB PO SCH (07:43)
[2018-12-03] MEDS: MAGNESIUM OXIDE 400 MG TAB PO SCH (07:43)
[2018-12-03] MEDS: METOPROLOL SUCC 50MG EXT REL TAB PO SCH (07:44)
[2018-12-03] MEDS: FAMOTIDINE 20 MG TAB PO SCH (07:44)
[2018-12-03] MEDS: CHOLECALCIFEROL 1,000 UNITS TAB PO SCH (07:44)
[2018-12-03] MEDS: TAMSULOSIN HCL 0.4 MG CAP PO SCH (07:44)
[2018-12-03] MEDS: DIVALPROEX DELAY RELEASE 250 MG TABEC PO SCH ×2 (07:44→22:50)
[2018-12-03] MEDS: CLOPIDOGREL BISULFATE 75 MG TAB PO SCH (07:44)
[2018-12-03] MEDS: HEPARIN SOD 5,000 UNIT/0.5 ML VIAL SQ SCH ×2 (07:45→13:51)
[2018-12-03] MEDS: ASPIRIN 81 MG ECTAB PO SCH (07:45)
[2018-12-03] MEDS: FINASTERIDE 5 MG TAB PO SCH (07:45)
[2018-12-03] MEDS: INSULIN ASPART 100 UNITS/ML 3 ML PEN SC SCH ×4 (07:47→22:53)
[2018-12-03 07:48] LABS: Vitamin B12 > 2000 pg/ml (211-911)
[2018-12-03 07:54] LABS: Albumin Globulin Ratio 0.7 (0.9-2); Bilirubin,Total 0.7 mg/dl (0.2-1); Globulin 3.8 gm/dl (2.5-4.0); Total Protein 6.6 gm/dl (6.4-8.2)
[2018-12-03] MEDS ORDERED: PHARMACY GLYCEMIC MGMT CONSULT SCH (09:37)
--- NOTE | 2018-12-03 10:28 | Pharmacy Report ---
Pharmacy Glycemic Short Note 2 - Date of Service December 03, 2018 - Glycemic Short BSG Results (Last 24 hours): 12/02/18 12/02/18 12/02/18 12:02 16:43 20:04 Glucose POC Glucose 201 H 159 H 277 H 12/03/18 12/03/18 06:52 07:22 Glucose 252 H POC Glucose 272 H OUTPATIENT ANTIDIABETIC REGIMEN: * Novolog per sliding scale * A1c = 5.6% 10/12/18 ASSESSMENT: * Type 2 diabetic admitted for NSTEMI, encephalopathy, and PAULA * He has been followed by the Glycemic Control Service on prior hospitalizations. In the past he has required little to no basal insulin during hospitalization (0-5 units of basal per day). * Novolog correctional and prandial insulin initiated mid-day yesterday which did lead to improved BSG pre-dinner however continuous nocturnal tube feeds were initiated without coverage of carbs in tube feeds. This led to BSGs climbing into the 270s. It will be challenging to adequately control BSGs with 12hr nocturnal feedings. Will trial use of NPH at the beginning of tube feeds to cover carbs provided in Peptamen 1.5 (~90grams CHO's over the course of 12 hours). Will also add Novolog checks at 0000 + 0400 tonight should the NPH not adequately cover these feeds. * He continues to have a diet ordered and nocturnal feeds are to supplement his PO intake as he has not been taking in adequate calories and has been loosing weight. Dietary may titrate feeds upwards over the next day or two if PO intake remains poor. PLAN FOR INPATIENT GLYCEMIC CONTROL: * Basal insulin * NPH 12 units SQ daily at 1900, at the time tube feeds (Peptamen 1.5 40cc/hr 1900-->0700) started. * Please hold NPH if tube feedings are held * Bolus insulin * NovoLog per scale ACHS and at 0000 + 0400 tonight * Goal Range: Low 110 mg/dL - High 140 mg/dL * Correction Factor: 20 mg/dL/unit * Nutritional / Prandial insulin per carb ratio of 1 unit per 7 grams CHO consumed (to be used to cover carbs in meals only - not tube feedings) PLAN FOR DISCHARGE: * to be determined
--- NOTE | 2018-12-03 11:31 | Cardiology Progress Note ---
Date of Service December 03, 2018 Assessment & Plan (1) Troponin level elevated: Likely secondary to his recent non ST elevation [place] in the face of his chronic renal failure and significant anemia. Doubt this represents an acute coronary syndrome. (2) CAD (coronary artery disease): The patient underwent a 3 vessel bypass in 2002. Would continue medical management. (3) Ischemic cardiomyopathy: Left ventricular ejection fraction severely reduced at 25-30% with an akinetic inferior wall, and otherwise global hypokinesis. (4) Chronic systolic heart failure: Compensated at this time on current medical regimen. Subjective Mr. Cooper is resting comfortably in bed and without complaints. Physical Exam Physical Exam: In general is well-developed well-nourished white male in no acute distress. HEENT exam is negative. Neck is supple with full carotid upstrokes. No obvious bruits. Jugular venous pressure is difficult to assess. Cardiovascular exam reveals a regular rhythm with distant heart sounds. No obvious murmurs. No S3. Lungs are clear without rales, rhonchi or wheezes. Abdomen is obese without bruits. Peg tube in place. Extremities reveal trace pretibial edema. Results & Data Vital Signs (Past 12 Hours) Vital Signs Temp Pulse Pulse Resp BP Pulse Ox 12/03/18 11:14 97 H 15 105/48 L 93 12/03/18 07:15 87 16 105/70 94 12/03/18 05:09 36.5 C 85 17 107/66 91 12/02/18 23:50 73 Laboratory Results threat monitoring analyst is benign.
--- NOTE | 2018-12-03 11:32 | Hospitalist Progress Note ---
Date of Service December 03, 2018 Assessment & Plan (1) Altered mental status: Variety of issues with lethargy (likely medication-induced from his haloperidol and risperidone); however, patient will also have confusion, hallucinations, and general shouting as well. - Ddx includes medication-induced (on Haldol & risperidone), infection (unlikely given clean imaging, normal WBC, and no vital sign changes), CVA, stroke, or metabolic encephalopathy (also less likely given his normal lab work). - Will lower risperidone dose to BID instead of TID - Continue valproic acid as his level is only 33. - Monitor for fevers - Discussed with neurology - Will get EEG. MRI not an option due to his pacema ker (we checked, and it is not compatible) - Will discuss Dr. Morales in case he has further testing he would like (2) Anemia: Hgb was 7.4 on presentation. Unclear cause. Heme-negative in the ED. Received 2 units PRBCs on 12/01 with an appropriate increase in hgb to 9.5. - Will get iron studies, B12, folate - Unfortunately, iron studies may be thrown off because he already received blood. - Transfuse for hgb > 9 - By 12/03, hgb had spontaneously risen to 11.2. B12 & folate both good (>2000 and 13.0). Iron studies show low iron, transferrin, and TIBC. Again, with caveat that he's already received blood, this would indicate iron deficiency/anemia of chronic disease. (3) PAULA (acute kidney injury): Creatinine 2.04 upon admission. Most recent creatinine on 10/22/2018 was 1.29. - Suspect today is more of a prerenal/cardiorenal effect - Received 2L IV fluids in the ED, then was on 80 mL/hr rate on admission - Will stop IV fluids given his known ischemic cardiomyopathy - Monitor Cr (4) Non-ST elevated myocardial infarction (non-STEMI): Troponin was 7.31 upon admission, then 7.37. Troponin had peaked at 33.2 on 10/12/2018. Seen by cardiology who feel this is likely demand ischemia. - Keep hemoglobin > 9 - Continue medical management - No plan for intervention at this time. - Appreciate cardiology help (5) Depression: History of depression, plus a history of seizure per prior notes. - Continue divalproex - Taper risperidone to BID - Haloperidol IM as needed (6) Ischemic cardiomyopathy: Ischemic cardiomyopathy with EF 25-30% on echo on 12/02. - Continue medical management - Monitor volume status (7) Diabetes mellitus, type 2: A1c was 5.6% in 10/2018. In prior admisssions, he has not needed any long- acting, just sliding scale. - Sliding scale insulin - Continue on his usual PEG feeds supplements. - Glyemic pharmacist consult - Discussed with pharm; will likely need NPH overnight for his tube feeds (8) Abscess in epidural space of lumbar spine: CT of lumbar spine on 12/01 indicate no persistent abscess. Treatment upon discharge completed from last hospitalization: daptomycin IV, ceftriaxone IV, and caspofungin IV. - Hold any antibiotic or antifungal therapy (9) BPH (benign prostatic hyperplasia): Does not report LUTS. - Continue tamsulosin and finasteride. - Consider bladder scan as needed (10) Obstructive sleep apnea: If significant sleep apnea, will prescribe CPAP. (11) DVT prophylaxis: SCDs - Low DVT risk per admission calculator & do not want to give chemoprophylaxis in the setting of possible bleeding Subjective Sleeping now. Was up overnight and in the morning shouting for his . Spoke with his and was very confused. Review of Systems Review of Systems: Unobtainable due to cognitive status Physical Exam Constitutional: WD/WN, vitals as above + lethargic Eyes: EOM intact bilaterally; no conjunctival abnormality ENMT: external ear and nose normal, oropharynx normal Neck: trachea midline, no thyromegaly normal visual inspection Respiratory: normal respiratory effort, lungs clear to auscultation no respiratory distress Cardiovascular: RRR, no murmur, no edema Gastrointestinal (Abdomen): Inspection/Auscultation: abdomen normal to inspection; abdomen not distended Musculoskeletal: no cyanosis or clubbing, extremities motor strength 5/5 Skin: no rashes, warm and dry Neurologic: moves all extremities and awake Psychiatric: Orientation: + not alert and + not oriented to person Results & Data Vital Signs (Past 12 Hours) Vital Signs Temp Pulse Pulse Resp BP Pulse Ox 12/03/18 11:14 97 H 15 105/48 L 93 12/03/18 07:15 87 16 105/70 94 12/03/18 05:09 36.5 C 85 17 107/66 91 12/02/18 23:50 73 PG Care Time/CCT Total # of Minutes Spent Total Time Spent with Patient: Total time spent is greater than 50% in coordination of care (as documented) at patient's floor/unit and/or counseling patient: (1) Altered mental status Altered mental status type: unspecified Qualified Code(s): R41.82 - Altered mental status, unspecified (2) Anemia Anemia type: unspecified type Qualified Code(s): D64.9 - Anemia, unspecified
--- NOTE | 2018-12-03 14:33 | Procedure Note ---
EEG Procedure Note Date of Service December 03, 2018 Start / End Times Start Time: 1149 End Time: [address] Fernandez History Patient is a 67-year-old with acute altered mental status, question seizures Home Medication List Home Medications Medication Instructions Recorded Confirmed Type Eternal Feed Order 60 ml PEG HS 12/01/18 12/01/18 History Flush 120 ml PEG UD 12/01/18 12/01/18 History House Shake 1 dose PO TIDM 12/01/18 12/01/18 History Prune Juice/Stewed Prunes 1 dose PO UD PRN 12/01/18 12/01/18 History acetaminophen [Tylenol] 975 mg PO Q8 PRN 12/01/18 12/01/18 History aspirin [Aspir-81] 81 mg PO DAILY 12/01/18 12/01/18 History bisacodyl [Dulcolax (bisacodyl)] 10 mg [place] UD PRN 12/01/18 12/01/18 History cholecalciferol (vitamin D3) 2,000 unit PO DAILY 12/01/18 12/01/18 History [Vitamin D3] clopidogrel [Plavix] 75 mg PO DAILY 12/01/18 12/01/18 History cyanocobalamin (vitamin B-12) 1,000 mcg PO DAILY 12/01/18 12/01/18 History [Vitamin B-12] divalproex 250 mg PO Q12 12/01/18 12/01/18 History famotidine 40 mg PO DAILY 12/01/18 12/01/18 History finasteride 5 mg PO DAILY 12/01/18 12/01/18 History haloperidol lactate [Haldol] 1 mg IM Q6 PRN 12/01/18 12/01/18 History heparin (porcine) 5,000 unit SUBCUT TID 12/01/18 12/01/18 History insulin lispro [Humalog U-100 1 sliding scale dose SUBCUT 12/01/18 12/01/18 History Insulin] USEASDIRECTD magnesium oxide 400 mg PO DAILY 12/01/18 12/01/18 History metoprolol succinate [Toprol XL] 50 mg PO DAILY 12/01/18 12/01/18 History nut.tx.gluc.intol,lac-free,soy 300 ea FEEDING TUBE UD 12/01/18 12/01/18 History [Glucerna 1.5 Terrell] nut.tx.gluc.intol,lac-free,soy 300 ea FEEDING TUBE UD 12/01/18 12/01/18 History [Glucerna 1.5 Terrell] oxycodone 5 mg PO Q4 PRN 12/01/18 12/01/18 History polyethylene glycol 3350 [Miralax] 17 g PO Q6 12/01/18 12/01/18 History risperidone [Risperdal] 0.5 mg PO TID 12/01/18 12/01/18 History tamsulosin 0.4 mg PO DAILY 12/01/18 12/01/18 History Inpatient Medication List Al Hydrox/Mg Hydrox/Simethicone (Maalox) 15 ml PO Q4H PRN PRN Reason: Dyspepsia Stop: 12/31/18 23:20 Last Admin: 12/02/18 23:36 Dose: 15 ml Documented by: [id number] Aspirin (Ecotrin Ectab) 81 mg PO DAILY [facility] Stop: 01/01/19 08:59 Last Admin: 12/03/18 07:45 Dose: 81 mg Documented by: [id number] Admin: 12/02/18 09:26 Dose: 81 mg Documented by: [id number] Atorvastatin Calcium (Lipitor) 40 mg PO QAM [facility] Stop: 01/01/19 11:29 Last Admin: 12/03/18 07:43 Dose: 40 mg Documented by: [id number] Admin: 12/02/18 12:00 Dose: 40 mg Documented by: [id number] Clopidogrel Bisulfate (Plavix) 75 mg PO DAILY [facility] Stop: 01/01/19 08:59 Last Admin: 12/03/18 07:44 Dose: 75 mg Documented by: [id number] Admin: 12/02/18 09:27 Dose: 75 mg Documented by: [id number] Cyanocobalamin (Vitamin B-12) 1,000 mcg PO DAILY [facility] Stop: 01/01/19 08:59 Last Admin: 12/03/18 07:43 Dose: 1,000 mcg Documented by: [id number] Admin: 12/02/18 09:24 Dose: 1,000 mcg Documented by: [id number] Divalproex Sodium (Depakote Delay Release) 250 mg PO Q12 [facility] Stop: 01/01/19 08:59 Last Admin: 12/03/18 07:44 Dose: 250 mg Documented by: [id number] Admin: 12/02/18 20:52 Dose: 250 mg Documented by: [id number] Admin: 12/02/18 09:25 Dose: 250 mg Documented by: [id number] Enteral Nutritional Formula (Peptamen 1.5) 1,000 ml PEG DAILY@1900 [facility]; Protocol Stop: 01/01/19 18:59 Last Admin: 12/02/18 20:37 Dose: 1,000 ml Documented by: [id number] Famotidine (Pepcid) 40 mg PO DAILY [facility] Stop: 01/01/19 08:59 Last Admin: 12/03/18 07:44 Dose: 40 mg Documented by: [id number] Admin: 12/02/18 09:27 Dose: 40 mg Documented by: [id number] Finasteride (Proscar) 5 mg PO DAILY [facility] Stop: 01/01/19 08:59 Last Admin: 12/03/18 07:45 Dose: 5 mg Documented by: [id number] Admin: 12/02/18 09:29 Dose: 5 mg Documented by: [id number] Heparin Sodium (Porcine) (Heparin Sodium (Porcine)) 5,000 units SQ TID [facility] Stop: 01/01/19 08:59 Last Admin: 12/03/18 13:51 Dose: 5,000 units Documented by: [id number] Cosigned by: [id number] Admin: 12/03/18 07:45 Dose: 5,000 units Documented by: [id number] Cosigned by: [id number] Admin: 12/02/18 20:52 Dose: 5,000 units Documented by: [id number] Cosigned by: [id number] Admin: 12/02/18 13:17 Dose: 5,000 units Documented by: [id number] Cosigned by: [id number] Admin: 12/02/18 09:29 Dose: 5,000 units Documented by: [id number] Cosigned by: [id number] Insulin Aspart (Novolog Flexpen) 0 units SC ACHS [facility] Stop: 01/01/19 11:59 Last Admin: 12/03/18 13:50 Dose: 3 units Documented by: [id number] Cosigned by: [id number] Admin: 12/03/18 07:47 Dose: 10 units Documented by: [id number] Cosigned by: [id number] Admin: 12/02/18 20:53 Dose: 7 units Documented by: [id number] Cosigned by: [id number] Admin: 12/02/18 18:14 Dose: Not Given Documented by: [id number] Cosigned by: [id number] Admin: 12/02/18 13:15 Dose: 4 units Documented by: [id number] Cosigned by: [id number] Magnesium Oxide (Mag-Ox) 400 mg PO DAILY [facility] Stop: 01/01/19 08:59 Last Admin: 12/03/18 07:43 Dose: 400 mg Documented by: [id number] Admin: 12/02/18 09:25 Dose: 400 mg Documented by: [id number] Metoprolol Succinate (Toprol Xl) 50 mg PO DAILY [facility] Stop: 01/01/19 08:59 Last Admin: 12/03/18 07:44 Dose: 50 mg Documented by: [id number] Admin: 12/02/18 09:26 Dose: 50 mg Documented by: [id number] Miscellaneous (Stop Order) 1 ea N/A DAILY@0700 [facility] Stop: 01/02/19 06:59 Last Admin: 12/03/18 07:42 Dose: 1 ea Documented by: [id number] Ondansetron HCl (Zofran) 4 mg IV Q6H PRN PRN Reason: NAUSEA/VOMITING Stop: 12/31/18 23:20 Last Admin: 12/02/18 23:31 Dose: 4 mg Documented by: [id number] Oxycodone HCl (Roxicodone Immediate Rel) 5 mg PO Q4 PRN PRN Reason: moderate pain Stop: 12/15/18 23:20 Last Admin: 12/03/18 07:40 Dose: 5 mg Documented by: [id number] Admin: 12/03/18 02:16 Dose: 5 mg Documented by: [id number] Admin: 12/02/18 20:51 Dose: 5 mg Documented by: [id number] Admin: 12/02/18 02:42 Dose: 5 mg Documented by: [id number] Polyethylene Glycol (Miralax Powder Packet) 17 gm PO Q6 [facility] Stop: 01/01/19 00:00 Last Admin: 12/03/18 13:51 Dose: Not Given Documented by: [id number] Admin: 12/03/18 06:17 Dose: Not Given Documented by: [id number] Admin: 12/03/18 00:09 Dose: 17 gm Documented by: [id number] Admin: 12/02/18 17:21 Dose: Not Given Documented by: [id number] Admin: 12/02/18 12:10 Dose: Not Given Documented by: [id number] Admin: 12/02/18 06:03 Dose: Not Given Documented by: [id number] Admin: 12/02/18 01:03 Dose: Not Given Documented by: [id number] Risperidone (Risperdal) 0.5 mg PO BID KAYLYNN Stop: 01/01/19 20:59 Last Admin: 12/03/18 07:43 Dose: 0.5 mg Documented by: [id number] Admin: 12/02/18 20:52 Dose: 0.5 mg Documented by: [id number] Tamsulosin HCl (Flomax) 0.4 mg PO DAILY KAYLYNN Stop: 01/01/19 08:59 Last Admin: 12/03/18 07:44 Dose: 0.4 mg Documented by: [id number] Admin: 12/02/18 09:27 Dose: 0.4 mg Documented by: [id number] Vitamin D (Vitamin D3) 2,000 units PO DAILY KAYLYNN Stop: 01/01/19 08:59 Last Admin: 12/03/18 07:44 Dose: 2,000 units Documented by: [id number] Admin: 12/02/18 09:28 Dose: 2,000 units Documented by: [id number] Discontinued Medications Acetaminophen (Ofirmev) 1,000 mg IV Q8H PRN PRN Reason: Pain or Fever Stop: 12/31/18 23:20 Last Admin: 12/02/18 02:18 Dose: 1,000 mg Documented by: [id number] Albumin Human (Albumin 25%) 25 gm IV ONE ONE Stop: 12/01/18 23:22 Last Admin: 12/01/18 23:46 Dose: 25 gm Documented by: [id number] Haloperidol Lactate (Haldol) 5 mg IM NOW STA Stop: 12/02/18 03:40 Last Admin: 12/02/18 03:48 Dose: 5 mg Documented by: [id number] Sodium Chloride (Nss 1000ml) 1,000 mls @ 999 mls/hr IV .Q1H1M ONE Stop: 12/01/18 18:54 Last Infusion: 12/01/18 19:31 Dose: 0 mls/hr Documented by: [id number] Admin: 12/01/18 18:24 Dose: 999 mls/hr Documented by: [id number] Sodium Chloride (Nss 1000ml) 1,000 mls @ 80 mls/hr IV .[id number] KAYLYNN Stop: 12/31/18 23:20 Last Infusion: 12/02/18 15:47 Dose: 0 mls/hr Documented by: [id number] Admin: 12/02/18 12:01 Dose: Not Given Documented by: [id number] Infusion: 12/02/18 06:04 Dose: 80 mls/hr Documented by: [id number] Infusion: 12/02/18 02:25 Dose: 0 mls/hr Documented by: [id number] Admin: 12/02/18 02:24 Dose: 80 mls/hr Documented by: [id number] Non-Formulary Medication (House Shake) 1 ea PO TIDM KAYLYNN Stop: 01/01/19 07:59 Last Admin: 12/02/18 11:45 Dose: Not Given Documented by: [id number] Nutritional Formula (Patient's Own Enteral Feeding) 300 ml PEG TIDM KAYLYNN Stop: 01/01/19 07:59 Last Admin: 12/02/18 17:22 Dose: Not Given Documented by: [id number] Admin: 12/02/18 13:16 Dose: Not Given Documented by: [id number] Admin: 12/02/18 10:25 Dose: Not Given Documented by: [id number] Olanzapine (Zyprexa) 5 mg PO ONE ONE Stop: 12/03/18 01:55 Last Admin: 12/03/18 02:10 Dose: 5 mg Documented by: [id number] Risperidone (Risperdal) 0.5 mg PO NOW STA Stop: 12/01/18 21:55 Last Admin: 12/01/18 23:41 Dose: 0.5 mg Documented by: [id number] Risperidone (Risperdal) 0.5 mg PO TID KAYLYNN Stop: 01/01/19 08:59 Last Admin: 12/02/18 13:23 Dose: 0.5 mg Documented by: [id number] Admin: 12/02/18 09:25 Dose: 0.5 mg Documented by: [id number] Sterile Water (Tube Feeding Water Flush) 120 ea PEG TIDM KAYLYNN Stop: 01/01/19 07:59 Last Admin: 12/03/18 07:42 Dose: 120 ea Documented by: [id number] Admin: 12/02/18 17:20 Dose: Not Given Documented by: [id number] Admin: 12/02/18 12:01 Dose: Not Given Documented by: [id number] Admin: 12/02/18 10:25 Dose: Not Given Documented by: [id number] Description This is a 21 electrode EEG with a single channel dedicated to limited EKG. The electrodes were placed in accordance with the International 10-20 system. Interpretation The predominant background activity consists of an irregular 3-5 Hz activity, of variable amplitude, up to 100 microvolts comma seen symmetrically distributed over all head regions bilaterally. This activity has little attenuation with eye opening or other alerting procedures. This irregular activity persisted throughout the entire recording. Photic stimulation was performed and elicited no change in the background activity and no abnormal responses were seen. Hyperventilation was not performed. A mild amount of muscle and movement artifact activity contaminated the recording and did not hinder interpretation to any significant degree. Throughout the recording, no focal abnormalities or potentially epileptogenic discharges are seen. In summary, this EEG was abnormal and showed generalized dysrhythmia of a mild to moderate nature. No focal abnormalities were noted and no potentially epileptogenic discharges were seen. Clinical Correlation This kind of abnormal slow activity and is consistent with a [id number] encephalopathy which could be due to wide variety reasons. Clinical correlation is required.
[2018-12-03] MEDS ORDERED: INSULIN HUMAN NPH SC SCH ×2 (17:00→19:00)
[2018-12-03] MEDS: ALBUMIN 25% 50 ML IV SCH ×2 (19:46→21:16)
--- NOTE | 2018-12-03 20:03 | XRay Report ---
XR chest 1V portable CLINICAL HISTORY: unresponsive COMPARISON STUDY: Chest CT August 05, 2018. Chest radiograph December 01, 2018. FINDINGS: Postoperative findings within the spine at multiple levels are incidentally noted. A displa jasmeet fusion screw is noted, likely at the T12 level. There are median sternotomy wires and a left pace r/AICD. There is no pneumothorax. Pulmonary edema has progressed. Bibasilar opacities have also incre ased. Moderate to large bilateral pleural effusions have increased. Cardiomegaly is unchanged. IMPRESSION: Progression of pulmonary edema, moderate to large bilateral pleural effusions and associa andrew bibasilar opacities. Electronically signed by: Chito Durand M.D. 12/03/2018 8:02 PM
--- NOTE | 2018-12-03 20:07 | XRay Report ---
POOL CLINICAL HISTORY: unresponsive COMPARISON STUDY: CT of the abdomen and pelvis December 01, 2018. FINDINGS: Lumbosacral postoperative findings are noted. Gastrostomy tube is in place. No evidence for a bowel obstruction. IMPRESSION: No evidence for a bowel obstruction. Electronically signed by: Chito Durand M.D. 12/03/2018 8:05 PM
--- NOTE | 2018-12-03 20:13 | CT Scan Report ---
CT OF THE HEAD WITHOUT CONTRAST CLINICAL HISTORY: unresponsive gcs 9 COMPARISON STUDY: Head CT December 01, 2018 and September 27, 2018. CT DOSE: 821.00 mGycm TECHNIQUE: Helical axial images of the head were obtained without IV contrast. Automated exposure con trol was utilized for the study. A dose lowering technique was utilized adhering to the principles o f ALARA. FINDINGS: No acute intracranial hemorrhage, midline shift or mass effect is present. The ventricular system is stable. The basilar cisterns are patent. No extra-axial collections are present. There are no findings to suggest acute dural sinus thrombosis or acute territorial infarct. No significant calv arial abnormalities are present. Right mastoid air cells are partially opacified. This is unchanged. IMPRESSION: No acute intracranial findings. Electronically signed by: Chito Durand M.D. 12/03/2018 8:12 PM
[2018-12-03] MEDS: PEPTAMEN 1.5 CAL 1,000 ML BAG PEG SCH (21:17)
[2018-12-03 22:13] LABS: Hematocrit (blood only) 37.7 % (42-52); Hemoglobin 12.4 g/dL (14.0-18.0); Mean Corpuscular Volume 90.4 fL (80-100); Mean Platelet Volume 9.8 fL (7.4-10.4); Platelet Count 244 K/uL (130-400); RDW Coefficient of Variation 18.8 % (11.5-14.5); RDW Standard Deviation 60.1 fL (36.4-46.3); Red Blood Count 4.17 M/uL (4.7-6.1)
[2018-12-03 22:29] LABS: Mean Corpuscular Hgb Conc 32.9 g/dL (32-36)
[2018-12-03 22:39] LABS: iSTAT Allen Test Pass; iSTAT Arterial Blood Gas HCO3 23 meg/L (19-24); iSTAT Arterial Blood Gas pCO2 39 mmHg (35-46); iSTAT Arterial Blood Gas pH 7.39 (7.35-7.45); iSTAT Carbon Dioxide 25 mEq/l (24-31); iSTAT Site R Radial
[2018-12-03 22:43] LABS: Basophils # (auto) 0.01 K/uL (0-0.2); Basophils % (auto) 0.1 %; Immature Granulocytes # (auto) 0.09 K/uL (0.00-0.02); Immature Granulocytes % (auto) 0.5 %; Lymphocytes % (auto) 7.1 %; Neutrophils % (auto) 76.3 %
[2018-12-03 22:50] LABS: Creatine Kinase 78 U/L (39-308); Creatine Kinase MB 1.5 ng/ml (0.5-3.6); Magnesium 2.7 mg/dl (1.8-2.4); NT Pro B Type Natriuretic Pept > 35000 pg/ml (0-900)
[2018-12-03 23:41] LABS: Albumin Level 2.4 gm/dl (3.4-5.0); BUN Creatinine Ratio 26.1 (10-20); Creatinine Clr Calc Pharmacy 52.9 ml/min; Est GFR (African American) 52.8; Est GFR (Non-African American) 45.6; Potassium 5.3 mmol/L (3.5-5.1)
[2018-12-03 23:43] LABS: Albumin Globulin Ratio 0.8 (0.9-2); Bilirubin,Total 0.9 mg/dl (0.2-1); Globulin 3.2 gm/dl (2.5-4.0); Total Protein 5.6 gm/dl (6.4-8.2)
[2018-12-04] MEDS: INSULIN ASPART 100 UNITS/ML 3 ML PEN SC SCH ×7 (00:15→21:09)
[2018-12-04] MEDS: POLYETHYLENE (MIRALAX) 17 GM PACK PO SCH ×5 (00:20→23:18)
[2018-12-04] MEDS: ALBUMIN 25% 50 ML IV SCH ×2 (03:20→04:25)
[2018-12-04 06:14] LABS: Basophils # (auto) 0.02 K/uL (0-0.2); Basophils % (auto) 0.2 %; Eosinophils # (auto) 0.04 K/uL (0-0.5); Eosinophils % (auto) 0.3 %; Hemoglobin 10.8 g/dL (14.0-18.0); Immature Granulocytes # (auto) 0.04 K/uL (0.00-0.02); Immature Granulocytes % (auto) 0.3 %; Lymphocytes # (auto) 0.58 K/uL (1.2-3.4); Lymphocytes % (auto) 5.1 %; Mean Corpuscular Hgb Conc 32.7 g/dL (32-36); Mean Corpuscular Volume 90.4 fL (80-100); Mean Platelet Volume 8.9 fL (7.4-10.4); Monocytes # (auto) 2.23 K/uL (0.11-0.59); Monocytes % (auto) 19.4 %; Neutrophils # (auto) 8.57 K/uL (1.4-6.5); Neutrophils % (auto) 74.7 %; Platelet Count 183 K/uL (130-400); RDW Coefficient of Variation 18.6 % (11.5-14.5); RDW Standard Deviation 60.6 fL (36.4-46.3); Red Blood Count 3.65 M/uL (4.7-6.1); White Blood Count 11.48 K/uL (4.8-10.8)
[2018-12-04 06:22] LABS: INR 1.2 (0.9-1.1); Prothrombin Time 11.7 Seconds (9.0-12.0)
[2018-12-04 06:40] LABS: Calcium 8.2 mg/dl (8.5-10.1); Creatinine Clr Calc Pharmacy 50.4 ml/min; Est GFR (African American) 49.7; Est GFR (Non-African American) 42.9; Magnesium 2.9 mg/dl (1.8-2.4)
[2018-12-04 06:48] LABS: Bilirubin,Total 1.5 mg/dl (0.2-1); Globulin 3.1 gm/dl (2.5-4.0); Total Protein 6.1 gm/dl (6.4-8.2)
[2018-12-04] MEDS: FINASTERIDE 5 MG TAB PO SCH ×2 (07:59→08:27)
[2018-12-04] MEDS: CHOLECALCIFEROL 1,000 UNITS TAB PO SCH ×2 (08:00→08:27)
[2018-12-04] MEDS: CYANOCOBALAMIN 500 MCG TABLET (VITAMIN B-12) PO SCH ×2 (08:00→08:27)
[2018-12-04] MEDS: ATORVASTATIN 40 MG TAB PO SCH ×2 (08:00→08:26)
[2018-12-04] MEDS: FAMOTIDINE 20 MG TAB PO SCH ×2 (08:00→08:27)
[2018-12-04] MEDS: ASPIRIN 81 MG ECTAB PO SCH ×2 (08:00→08:26)
[2018-12-04] MEDS: METOPROLOL SUCC 50MG EXT REL TAB PO SCH ×2 (08:00→08:27)
[2018-12-04] MEDS: MAGNESIUM OXIDE 400 MG TAB PO SCH ×2 (08:00→08:26)
[2018-12-04] MEDS: CLOPIDOGREL BISULFATE 75 MG TAB PO SCH ×2 (08:00→08:27)
[2018-12-04] MEDS: TAMSULOSIN HCL 0.4 MG CAP PO SCH ×2 (08:00→08:26)
[2018-12-04] MEDS: VALPROIC ACID SOLN 250 MG/5 ML UDC PO SCH ×3 (08:01→21:05)
[2018-12-04] MEDS: ONDANSETRON INJ 2 MG/ML 2 ML VIAL IV PRN (08:21)
[2018-12-04] MEDS: risperiDONE 0.5 MG TABLET PO SCH ×2 (08:27→21:05)
--- NOTE | 2018-12-04 09:29 | Pharmacy Report ---
Pharmacy Glycemic Short Note 2 - Date of Service December 04, 2018 - Glycemic Short BSG Results (Last 24 hours): 12/03/18 12/03/18 12/03/18 11:46 16:21 19:24 Glucose POC Glucose 200 H 167 H 155 H 12/03/18 12/03/18 12/03/18 19:37 20:13 22:02 Glucose 143 H Cancelled POC Glucose 163 H 12/03/18 12/04/18 12/04/18 22:50 00:09 03:58 Glucose POC Glucose 170 H 167 H 180 H 12/04/18 12/04/18 06:05 07:26 Glucose 151 H POC Glucose 161 H OUTPATIENT ANTIDIABETIC REGIMEN: * Novolog per sliding scale * A1c = 5.6% 10/12/18 The patient is currently receiving: * Basal/Prandial insulin: NPH 12 units SQ daily @ 1900 (at the start of nocturnal tube feeds: Peptamen 1.5 40cc/hr x 12 hrs (~90gm CHOs) * Correctional Insulin: Novolog Correction per scale ACHS + 0000 + 0400 Goal Range: Low 110 mg/dL - High 140 mg/dL Correction Factor: 20 mg/dL/unit * Prandial insulin: Per carb ratio of 1 unit per 7 grams CHO consumed ASSESSMENT: 12/04 * BSG at goal the second half of the day yesterday and remain at goal this AM * NPH appears to be covering the carbs in tube feeds well. There were 6 units of Novolog correction given during the time the feeds were running, so there is room to increase the dose. * Spoke with dietary, the plan is to increase Peptamen 1.5 feeds to 60cc/hr saud ght, thus CHO load delivered will be ~135gm over 12 hrs. New NPH dose will be based upon this new CHO load. * Novolog CF and CR performed well when used - therefore no changes 12/03 * Type 2 diabetic admitted for NSTEMI, encephalopathy, and PAULA * He has been followed by the Glycemic Control Service on prior hospitalizations. In the past he has required little to no basal insulin during hospitalization (0-5 units of basal per day). * Novolog correctional and prandial insulin initiated mid-day yesterday which did lead to improved BSG pre-dinner however continuous nocturnal tube feeds were initiated without coverage of carbs in tube feeds. This led to BSGs climbing into the 270s. It will be challenging to adequately control BSGs with 12hr nocturnal feedings. Will trial use of NPH at the beginning of tube feeds to cover carbs provided in Peptamen 1.5 (~90grams CHO's over the course of 12 hours). Will also add Novolog checks at 0000 + 0400 tonight should the NPH not adequately cover these feeds. * He continues to have a diet ordered and nocturnal feeds are to supplement his PO intake as he has not been taking in adequate calories and has been loosing weight. Dietary may titrate feeds upwards over the next day or two if PO intake remains poor. PLAN FOR INPATIENT GLYCEMIC CONTROL: * Basal insulin * NPH 24 units SQ daily at 1900, at the time tube feeds (Peptamen 1.5 60cc/hr 1900-->0700) start. * Please hold NPH if tube feedings are held * Bolus insulin * NovoLog per scale ACHS and at 0200 tonight * Goal Range: Low 110 mg/dL - High 140 mg/dL * Correction Factor: 20 mg/dL/unit * Nutritional / Prandial insulin per carb ratio of 1 unit per 7 grams CHO consumed (to be used to cover carbs in meals only - not tube feedings) PLAN FOR DISCHARGE: * to be determined
--- NOTE | 2018-12-04 10:25 | Neurology Consultation ---
Date of Consultation December 04, 2018 Assessment & Plan (1) Altered mental status: Patient has a significant encephalopathy likely multifactorial in origin. Given his complex history over the last 5 months I suspect that he has a combination of cardiovascular (hypotension, reduced cardiac ejection fraction, and significant anemia requiring transfusion), medication (narcotics and antipsychotics), and infectious/inflammatory (history of severe septicemia and lumbar spinal abscess with multiple organisms requiring weeks of antibiotics and antifungal agents). He did have some mild hyponatremia which could be contributing. Finally, the patient did fall out of bed twice on November 30 and I cannot exclude head trauma/concussion (although this does not explain the altered mental status which is been going on for many weeks/months). CT scan did not show any evidence of stroke or hemorrhage. Current neurologic exam shows no evidence of stroke/focal neurologic findings. He has no meningeal signs, fever, or elevated white count on admission. However, his white count has been elevated the last 48 hours. He may be slightly improved today compared to admission. EEG showed no potentially epileptogenic activity. It was slow in general consistent with his cephalopathy. (2) Diabetic peripheral neuropathy: Patient has a significant polyneuropathy present likely diabetic. (3) Low back pain: Patient has chronic low back pain with history of severe spinal stenosis and lumbosacral radiculopathy post surgery. Recommendations: 1. Avoid narcotics if possible. 2. Taper off risperidone, by decreasing to 0.5 milligrams once in the evening for several days then discontinue. Depakote can be kept the same for now but this could be discontinued in future if needed. 3. Support blood pressure as best as possible 4. Treat anemia, hopefully identifying the underlying cause 5. Increase activity as able and include physical therapy/range of motion 6. TSH 7. I will follow Overall, I spent a total of 150 minutes with this case including review of records, direct evaluation the patient at bedside, and discussion of this case with the patient, his , and son at bedside, and Dr. Jim brumfield including differential diagnosis and treatment options. History of Present Illness Reason for Consultation: Patient is a 67-year-old, who I was asked to see the request of Dr. Fernandez, for neurologic consultation regarding acute encephalopathy. Requesting Physician: Dr. Fernandez Attending Physician: Malik Fernandez MD History of Present Illness Patient is complicated and has a number of chronic diseases including hypertension for many years, diabetes since his 30s, ischemic cardiomyopathy for many years with congestive heart failure. He has generalized polyneuropathy and retinopathy secondary to diabetes. On October 18, 2011 he had severe spinal cord compression at C3-4 with myelomalacia and intramedullary mass, surgically treated by Dr. Hollins. He was having incapacitating cervical myelopathy. The LP showed SENIOR PAINTER Lyme disease also. Later that month he had a cardiac arrest. I saw him at that time and an EEG showed some generalized slowing and he neurologically improved from this. There was no evidence of stroke. I have not seen him since. After his cardiac arrest he had a single chamber ICD implanted which he still has. The patient has had chronic low back and lower extremity pain end up having L4-5 and L5-S1 lumbar spine surgery/fusion by Dr. Morales in June of 2015. Apparently he did well following the surgery however he has had chronic low back and lower extremity pain since. On July 25, 2018 Dr. Morales removed L4-5 and L5-S1 instrumentation and did a lumbar decompression with fusion at L3-4. He had a NSTEMI postoperatively and was treated by Cardiology. He was discharged on July 31. One day after discharge he was readmitted August 01 with increased low back and lower extremity pain and fever. He had gram- negative septicemia He was put on antibiotics and was noticed to have an epidural abscess at the site of lumbar spine surgery. On August 11 he had an I and D of the lumbar spine by Dr. Morales. Beads impregnated with vancomycin and gentamicin were placed. Following this he was placed into [facility] and developed confusion and hallucinations. He was getting narcotics for pain. Because of l ower extremity weakness and increased back pain with confusion and slurred speech he was readmitted on September 03, 2018. On September 10 Dr. Morales removed instrumentation of L3-4 and did an I and D of the lumbar spine again. Stimulant beads of gentamicin and vancomycin were placed again. He was discharged September 16 to [facility] with bilateral leg weakness. He continued to have confusion and pain for which she received narcotics. He was transferred back to this institution September 27. He received IV antibiotics/antifungal for Enterobacter, coag-negative staph, and fungi. He had some confusion and altered mental status in the hospital and was finally discharged October 22 to the long- term care facility at [facility]. While at [facility] he received Risperdal and Depakote for agitation confusion and hallucinations. He was also getting Haldol as needed. He was receiving fentanyl patch and oxycodone for pain. He was eventually transferred to [facility] November 26. While there, the patient was having increased agitation and ended up falling out of bed twice during confused dates on November 30. He was transferred to this [facility] December 01 were he has been since. On December 01, temperature was 36.9, pulse 90 and regular, respiratory rate 23, blood pressure 101/59, and O2 saturation 99 percent. CBC showed hemoglobin of 7.4 and hematocrit of 22. Sed rate was 17. Sodium was 127, potassium 5.5, BUN 40, creatinine 2 point 0, glucose 221, with a mildly elevated AST of 63 and alk-phos of 135. Clinically the patient was listless but awake and did respond to some verbal commands. He responded slowly but accurately. He had no ability to lift his left leg but his funding analyst strength was symmetrical bilaterally. CT of the lumbar spine was unremarkable for any signs of infection or abscess but did show the postoperative changes. CT scan of the head showed no acute changes. MRI of the brain could not be obtained because of his pacemaker. Over the next several days he has remained quite confused. No seizure or convulsive activity has been noted. He has had hypotension. He received transfusion for anemia and apparently has had anemia significant enough to get transfusion several times this year. During this hospitalization he has been taken off Haldol and his Risperdal dose has been decreased to 0.5 milligrams twice a day. He is still receiving Depakote 250 milligrams twice daily and a Depakote level was low at 33. EEG was obtained yesterday and showed moderate generalized slowing without focal abnormalities or potentially epileptogenic discharges. Allergies Allergy/AdvReac Type Severity Reaction Status Date / Time No Known Drug Allergies Allergy Unknown Unverified 12/01/18 19:27 Home Medications Home Medications Medication Instructions Recorded Confirmed Type Eternal Feed Order 60 ml PEG HS 12/01/18 12/01/18 History Flush 120 ml PEG UD 12/01/18 12/01/18 History House Shake 1 dose PO TIDM 12/01/18 12/01/18 History Prune Juice/Stewed Prunes 1 dose PO UD PRN 12/01/18 12/01/18 History acetaminophen [Tylenol] 975 mg PO Q8 PRN 12/01/18 12/01/18 History aspirin [Aspir-81] 81 mg PO DAILY 12/01/18 12/01/18 History bisacodyl [Dulcolax (bisacodyl)] 10 mg HI UD PRN 12/01/18 12/01/18 History cholecalciferol (vitamin D3) 2,000 unit PO DAILY 12/01/18 12/01/18 History [Vitamin D3] clopidogrel [Plavix] 75 mg PO DAILY 12/01/18 12/01/18 History cyanocobalamin (vitamin B-12) 1,000 mcg PO DAILY 12/01/18 12/01/18 History [Vitamin B-12] divalproex 250 mg PO Q12 12/01/18 12/01/18 History famotidine 40 mg PO DAILY 12/01/18 12/01/18 History finasteride 5 mg PO DAILY 12/01/18 12/01/18 History haloperidol lactate [Haldol] 1 mg IM Q6 PRN 12/01/18 12/01/18 History heparin (porcine) 5,000 unit SUBCUT TID 12/01/18 12/01/18 History insulin lispro [Humalog U-100 1 sliding scale dose SUBCUT 12/01/18 12/01/18 History Insulin] USEASDIRECTD magnesium oxide 400 mg PO DAILY 12/01/18 12/01/18 History metoprolol succinate [Toprol XL] 50 mg PO DAILY 12/01/18 12/01/18 History nut.tx.gluc.intol,lac-free,soy 300 ea FEEDING TUBE UD 12/01/18 12/01/18 History [Glucerna 1.5 Terrell] nut.tx.gluc.intol,lac-free,soy 300 ea FEEDING TUBE UD 12/01/18 12/01/18 History [Glucerna 1.5 Terrell] oxycodone 5 mg PO Q4 PRN 12/01/18 12/01/18 History polyethylene glycol 3350 [Miralax] 17 g PO Q6 12/01/18 12/01/18 History risperidone [Risperdal] 0.5 mg PO TID 12/01/18 12/01/18 History tamsulosin 0.4 mg PO DAILY 12/01/18 12/01/18 History Patient History Medical History Vitamin D deficiency (Acute) Urinary stream splitting (Acute) Urinary incontinence (Acute) Uncontrolled type 2 diabetes mellitus with retinopathy, with long-term current use of insulin (Acute) Uncontrolled type 2 diabetes mellitus with neurologic complication, with long- term current use of insulin (Acute) Thyroid disorder (Acute) Spinal stenosis (Acute) Sleep-wake schedule disorder, delayed phase type (Acute) Restless legs syndrome (Acute) Pyuria (Acute) Proliferative diabetic retinopathy (Acute) Obstructive sleep apnea (Acute) Obesity, Class II, BMI 35-39.9 (Acute) Nicotine dependence (Acute) Hallucinations (Acute) Exposure to influenza (Acute) Edema (Acute) Dyslipidemia (Acute) Diverticulosis (Acute) Disc degeneration, lumbar (Acute) Diabetic retinopathy (Acute) Diabetic peripheral neuropathy (Acute) Depression (Acute) Carotid artery stenosis (Acute) Cardiac defibrillator in place (Acute) CAD, multiple vessel (Acute) Benign localized hyperplasia of prostate with urinary obstruction (Acute) Arteriosclerotic coronary artery disease (Acute) Anxiety (Acute) Anemia (Acute) Alteration in tactile sense (Acute) Abscess in epidural space of lumbar spine (Acute) Acute UTI (urinary tract infection) Difficult airway for intubation SENIOR PAINTER 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 Admitted [facility] 10/18/11 for onset of incapacitating cervical myelopathy. Spinal tap showed SENIOR PAINTER Lyme disease, MRI showed severe spinal cord compression at C3-4 with myelomalacia and intramedullary mass. Pt had c-spine surgery, subsequent prolonged hospital admission, complicated post-op course. Difficult intubation Sudden cardiac Post-op 2011 [facility]. Now has ICD. Sleep apnea PT NOT CURRENTLY CPAP 2/2 recurrent sinus infections. WILL SEE SLEEP MEDICINE/DR. ARCHULETA LATE 2017 Diabetes mellitus, type 2 IDDM. Degenerative disc disease Chronic back pain CHRONIC PAIN IN LEFT LEG Ischemic cardiomyopathy EF WNL 11/2017 CAD (coronary artery disease) s/p triple CABG 2002 Full dentures (Acute) Obese (Acute) Heart disease (Acute) HTN (hypertension) (Acute) High cholesterol (Acute) Coagulase-negative staphylococcal infection ICD (implantable cardioverter-defibrillator) in place Paraspinal abscess Surgical History History of esophagogastroduodenoscopy (EGD) History of colonoscopy History of cardiac cath 2011 AT [facility] - UNSURE IF HE HAS STENTS. History of tracheostomy Hx of transurethral resection of prostate History of cataract extraction with lens replacement Hx of tonsillectomy (Acute) H/O cervical spine surgery (Acute) ACDI C3-4, C7 corpectomy, removal of C7 intramedullary mass. History of lumbar spinal fusion (Acute) S/P triple vessel bypass (Acute) [facility] 2002 History of incision and drainage Lumbar spine on 08/11; complicated by difficult intubation with only #6.5 ETT able to be placed and patient kept intubated post op History of lumbar surgery 09/10/18 Glidescope 3 okay visualization but difficulty passing ETT, unable to pass 8.0, able to pass 7.0 with some difficulty Family History Mother , age 68 of COPD and respiratory issues COPD (chronic obstructive pulmonary disease) Father , in his 40s of an [place] Myocardial infarction Other Diabetes Hypertension No pertinent family history Social History Preferred Language: Bahamian Communication Ability: Effective Visual Impairment: No Limitations Hearing Ability: Normal 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 Helper Required: No Beliefs That Will Affect Care: None marital status: Current Living Situation: Assisted Current Living Situation Comment: temporarily living at [facility] 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al status: retired and disabled 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: 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 Did not have dizziness, chest pain, or abdominal discomfort. He was very sleepy and could not answer these types of questions. Physical Exam Physical Exam: The patient is right-handed. The patient is very sleepy but easily aroused with voice and gentle shaking. It took him a little while to wake up some but he did end up answering questions and following commands. His speech was sparse but not obviously aphasic or dysarthric with when he did say. He was staring his eyes were open but did track. The discs are sharp with positive venous pulsations bilaterally. There are no exudates, hemorrhages, or blood vessel changes seen. Pupils are 3 mm bilaterally and reactive to light. Extraocular eye muscles are intact without nystagmus. Visual acuity and visual davies seem normal grossly to confrontation. There are no deficits to sensation in the face in all 3 distributions of the fifth cranial nerve bilaterally. Corneal reflexes are positive bilaterally. Facial strength and symmetry was normal bilaterally. Hearing seems intact grossly to voice and finger rub bilaterally. Palate moves well without asymmetry. There is normal sternocleidomastoid and trapezius (shoulder shrug) strength bilaterally. Tongue is midline with good strength bilaterally. Neck has a full range of motion without discomfort. There are no cervical bruits bilaterally. There are no cranial or ocular bruits. Heart is without murmur. There is a regular rhythm and rate. Cervical, thoracic, and lumbar spine are nontender to palpation. Gait was not tested and he was weak not able to sit up in bed. With outstretched arms there is drift, but likely because of sleepiness and generalized fatigue. There are no resting, postural, or action tremors. There is no ataxia with finger to nose testing. There is decrease facility in the hands. No other abnormal involuntary movements are noted. Motor strength is 4/5 diffusely in the arms bilaterally including deltoids, biceps, triceps, brachioradialis, wrist flexors and extensors, funding analyst, and intrinsic hand muscles. He had significant wasting and intrinsic hand muscles to could 1st dose interosseous bilaterally. Motor strength is 3/5 diffusely in the proximal legs bilaterally including hip flexors, quadriceps, hamstrings, tibialis anterior, and toe extensors bilaterally. Strength is 4/5 distally in the gastrocnemius muscles bilaterally. The limbs have good tone without rigidity or spasticity. There is distal atrophy noted in the limbs. Muscle bulk is normal, there is no tenderness to palpation, no myotonia to percussion, and no fasciculations seen. Sensory examination difficult given his mental status but he withdraws quickly and seems to sense a [id number]-[id number] pain in his hands bilaterally. He had decrease reaction to deep pain in his feet bilaterally. Reflexes are 1/4 in the biceps and triceps tendons bilaterally. Brachioradialis, quadriceps, and Achilles tendon reflexes were 0/4 bilaterally. Toes are downgoing with plantar stimulation bilaterally. Peripheral pulses are present and of normal quality distally in all 4 limbs. There is no peripheral edema noted in the limbs. Results & Data Vital Signs (Past 12 Hours) Vital Signs Temp Pulse Pulse Pulse Resp BP Pulse Ox 12/04/18 06:57 36.4 C L 89 17 107/67 100 12/04/18 06:08 86 97/62 L 12/04/18 05:04 85 20 92 12/04/18 04:03 36.9 C 82 22 92/65 L 98 12/04/18 02:08 79 18 95 12/03/18 23:50 78 12/03/18 23:21 12/03/18 23:07 36.7 C 78 16 86/65 L 98 Pulse Ox 12/04/18 06:57 12/04/18 06:08 12/04/18 05:04 12/04/18 04:03 12/04/18 02:08 12/03/18 23:50 12/03/18 23:21 96 12/03/18 23:07 (1) Altered mental status Altered mental status type: unspecified Qualified Code(s): R41.82 - Altered mental status, unspecified (2) Low back pain Back pain laterality: midline Chronicity: acute Sciatica presence: without sciatica Qualified Code(s): M54.5 - Low back pain
[2018-12-04] MEDS ORDERED: ONDANSETRON INJ 2 MG/ML 2 ML VIAL IV STA (10:53)
--- NOTE | 2018-12-04 13:33 | Hospitalist Progress Note ---
Date of Service December 04, 2018 Assessment & Plan (1) Altered mental status: Patient is having periods of confusion, hallucinations, and general shouting as well. EEG on 12/03 was negative for seizures. - Concern for medication-induced (on Haldol, risperidone, and opiate) and possibly low-flow, heart failure in nature. Metabolic encephalopathy also possible. - Tapering risperidone dose - Continue valproic acid as his level is only 33. - Discussed with neurology - MRI not an option due to his pacemaker (we checked, and it is not compatible) - Discussed with Dr. Morales who does not have further inpatient needs (2) Anemia: Hgb was 7.4 on presentation. Unclear cause. Heme-negative in the ED. Received 2 units PRBCs on 12/01 with an appropriate increase in hgb to 9.5. - Will get iron studies, B12, folate - Unfortunately, iron studies may be thrown off because he already received blood. - Transfuse for hgb > 9 - By 12/03, hgb had spontaneously risen to 11.2. B12 & folate both good (>2000 and 13.0). Iron studies show low iron, transferrin, and TIBC. Again, with caveat that he's already received blood, this would indicate iron deficiency/anemia of chronic disease. - Monitor hgb - was 10.8 on 12/04 (3) PAULA (acute kidney injury): Creatinine 2.04 upon admission. Most recent creatinine on 10/22/2018 was 1.29. - Suspect today is more of a prerenal/cardiorenal effect - Received 2L IV fluids in the ED, then was on 80 mL/hr rate on admission - Will stop IV fluids given his known ischemic cardiomyopathy - Monitor Cr - 1.65 on 12/04 (4) Non-ST elevated myocardial infarction (non-STEMI): Troponin was 7.31 upon admission, then 7.37. Then down to 2.7 on 12/03. Had 2 prior MIs in 07/2018 and 10/2018. Seen by cardiology who feel this is likely demand ischemia. - Keep hemoglobin > 9 - Continue medical management - No plan for intervention at this time. - Appreciate cardiology help (5) Depression: History of depression, plus a history of seizure per prior notes. - Continue divalproex - Taper risperidone to BID - Haloperidol IM as needed (6) Ischemic cardiomyopathy: Ischemic cardiomyopathy with EF 25-30% on echo on 12/02. - Continue medical management - Monitor volume status (7) Diabetes mellitus, type 2: A1c was 5.6% in 10/2018. In prior admisssions, he has not needed any long- acting, just sliding scale. - Sliding scale insulin - Continue on his usual PEG feeds supplements. - Glyemic pharmacist consult - Discussed with pharm; will likely need NPH overnight for his tube feeds (8) Abscess in epidural space of lumbar spine: CT of lumbar spine on 12/01 indicate no persistent abscess. Treatment upon discharge completed from last hospitalization: daptomycin IV, ceftriaxone IV, and caspofungin IV. - Hold any antibiotic or antifungal therapy (9) BPH (benign prostatic hyperplasia): Does not report LUTS. - Continue tamsulosin and finasteride. - Consider bladder scan as needed (10) Obstructive sleep apnea: If significant sleep apnea, will prescribe CPAP. (11) DVT prophylaxis: SCDs - Low DVT risk per admission calculator & do not want to give chemoprophylaxis in the setting of possible bleeding Subjective Sleepier today. No complaints. Review of Systems Review of Systems: Unobtainable due to cognitive status Physical Exam Constitutional: WD/WN, vitals as above + lethargic Eyes: EOM intact bilaterally; no conjunctival abnormality ENMT: external ear and nose normal, oropharynx normal Neck: trachea midline, no thyromegaly normal visual inspection Respiratory: normal respiratory effort, lungs clear to auscultation no r espiratory distress Cardiovascular: RRR, no murmur, no edema Gastrointestinal (Abdomen): Inspection/Auscultation: abdomen normal to inspection; abdomen not distended Musculoskeletal: no cyanosis or clubbing, extremities motor strength 5/5 Skin: no rashes, warm and dry Neurologic: moves all extremities and awake Psychiatric: Orientation: + not alert and + not oriented to person Results & Data Vital Signs (Past 12 Hours) Vital Signs Temp Pulse Pulse Pulse Resp BP Pulse Ox 12/04/18 11:08 36.8 C 88 18 97/61 L 97 12/04/18 06:57 36.4 C L 89 17 107/67 100 12/04/18 06:08 86 97/62 L 12/04/18 05:04 85 20 92 12/04/18 04:03 36.9 C 82 22 92/65 L 98 12/04/18 02:08 79 18 95 PG Care Time/CCT Total # of Minutes Spent Total Time Spent with Patient: Total time spent is greater than 50% in coordination of care (as documented) at patient's floor/unit and/or counseling patient: (1) Altered mental status Altered mental status type: unspecified Qualified Code(s): R41.82 - Altered mental status, unspecified (2) Anemia Anemia type: unspecified type Qualified Code(s): D64.9 - Anemia, unspecified
--- NOTE | 2018-12-04 14:31 | XRay Report ---
XR KUB/Abdomen 1 view CLINICAL HISTORY: 67 years-old Male presenting with Nausea, no BM in several days. TECHNIQUE: Single supine view of the abdomen was obtained. COMPARISON: 12/03/2018. FINDINGS: Surgical clip projects over the left midabdomen. Gaseous distention of small bowel with an apparent d iameter of over 4 cm though this is likely affected by magnification. Gas is also noted throughout th e large bowel. This bowel gas pattern is not overly concerning for obstruction. No gross pneumoperito neum. Allowing for bowel gas and stool, no calcifications to suggest nephrolithiasis. Posterior lumbar fusion hardware with interbody spacers at L4-5 and L5-S1. Laminectomy defects also s uspected. Partial visualized median sternotomy wires and implanted cardiac defibrillator lead. Breaka ge of the most inferior median sternotomy wire noted. Possible small right pleural effusion. IMPRESSION: 1. Small right pleural effusion. 2. Bowel gas pattern most suggestive of ileus. No convincing evidence of obstruction. Electronically signed by: Benson Junior M.D. 12/04/2018 2:30 PM
[2018-12-04] MEDS ORDERED: INSULIN HUMAN NPH SC SCH ×2 (19:00)
[2018-12-04] MEDS: PEPTAMEN 1.5 CAL 1,000 ML BAG PEG SCH (19:52)
[2018-12-05] MEDS ORDERED: INSULIN ASPART 100 UNITS/ML 3 ML PEN SC SCH (02:00)
[2018-12-05] MEDS: ONDANSETRON INJ 2 MG/ML 2 ML VIAL IV PRN ×2 (03:13→12:12)
[2018-12-05] MEDS: POLYETHYLENE (MIRALAX) 17 GM PACK PO SCH (06:00)
[2018-12-05] MEDS ORDERED: PROCHLORPERAZINE 5 MG in SYRINGE 4 ML IV ONE (06:02)
[2018-12-05 07:15] LABS: Hemoglobin 11.2 g/dL (14.0-18.0); Mean Corpuscular Hgb Conc 32.9 g/dL (32-36); Mean Corpuscular Volume 90.7 fL (80-100); Mean Platelet Volume 9.3 fL (7.4-10.4); Platelet Count 195 K/uL (130-400); RDW Coefficient of Variation 18.3 % (11.5-14.5); Red Blood Count 3.75 M/uL (4.7-6.1); Reticulated Hemoglobin 28.2 pg (28.2-36.6); Reticulocyte % 4.8 % (0.5-2.0); Reticulocytes # 0.18 10^6/uL (0.02-0.10); White Blood Count 5.94 K/uL (4.8-10.8)
[2018-12-05 07:46] LABS: Albumin Level 2.5 gm/dl (3.4-5.0); BUN Creatinine Ratio 32.4 (10-20); Calcium 8.5 mg/dl (8.5-10.1); Creatinine Clr Calc Pharmacy 60.1 ml/min; Est GFR (African American) 61.2; Est GFR (Non-African American) 52.8; Magnesium 2.6 mg/dl (1.8-2.4); Potassium 4.7 mmol/L (3.5-5.1)
--- NOTE | 2018-12-05 07:47 | Neurology Progress Note ---
Date of Service December 05, 2018 Assessment & Plan (1) Altered mental status: Patient has had a significant encephalopathy, since admission, likely multifactorial in origin. Today, he is considerably improved with his mental status compared to yesterday. Given his complex history over the last 5 months I suspect that he has a combination of cardiovascular (hypotension, reduced cardiac ejection fraction, and significant anemia requiring transfusion), medication (narcotics and antipsychotics), and infectious/inflammatory (history of severe septicemia and lumbar spinal abscess with multiple organisms requiring weeks of antibiotics and antifungal agents). He did have some mild hyponatremia which could be contributing. Finally, the patient did fall out of bed twice on November 30 and I cannot exclude head trauma/concussion (although this does not explain the altered mental status which is been going on for many weeks/months). He does not have any headache or dizziness. CT scan did not show any evidence of stroke or hemorrhage. Current neurologic exam shows no evidence of stroke/focal neurologic findings. He has no meningeal signs, fever, or elevated white count on admission. However, his white count has been elevated the last 48 hours. He may be slightly improved today compared to admission. EEG 12-03 showed no potentially epileptogenic activity. It was slow in general consistent with his encephalopathy. Overnight and this morning, he has been having some nausea and vomiting. He has an ileus x-ray. (2) Diabetic peripheral neuropathy: Patient has a significant polyneuropathy present likely diabetic. (3) Low back pain: Patient has chronic low back pain with history of severe spinal stenosis and lumbosacral radiculopathy post surgery. He still has some low back pain today but it is not significant. Recommendations: 1. Avoid narcotics if possible. 2. Taper off risperidone, by decreasing to 0.5 milligrams once in the evening for several days, then discontinue. Depakote can be kept the same for now, but this could be discontinued in future if needed. 3. Support blood pressure as best as possible 4. Treat anemia, hopefully identifying the underlying cause 5. Increase activity as able and include physical therapy/range of motion 6. TSH is pending 7. I will follow 8. Dr. Fernandez will evaluate/treat the nausea. Overall, I spent a total of 35 minutes with this case including review of records, direct evaluation the patient at bedside, and discussion of this case with the patient, his nurse at bedside, and Dr. Fernandez, including differential diagnosis and treatment options. Subjective Last evening, overnight after getting tube feedings, patient had significant nausea and vomiting. X-ray showed some ileus but no obstruction. This morning, around 0730, the patient was lying in bed easily aroused with voice and was somewhat conversant with me tele me he was feeling fairly well. He had no headache or neck pain. He has some back pain. He felt that his abdomen was full but he did not chest pain. He was not dizzy. Patient then add 2 or 3 episodes of vomiting producing at least a liter of fluid. Hemoglobin was 11.2 and hematocrit 34. Blood pressure was 114/64 and he is afebrile. Glucose was 174 and a full Chem profile is pending. TSH is pending. Physical Exam Physical Exam: Patient was awake and alert. He followed one-step commands easily. He was oriented to person. He was pleasant and cooperative. Extraocular eye muscles are intact without nystagmus. There is no facial droop. Neck was supple. With outstretched arms there was no drift. There was no ataxia with [id number] testing. There is no resting or postural tremor. Strength was symmetrical in the arms being 4 to 4+/5 bilaterally diffusely, both proximally and distally. Proximal leg strength was 2-3/5 bilaterally. Distally on the right he was 4+/5 with tibialis anterior and 5/5 with gastrocnemius. On the left tibialis anterior was 4-/5 gastrocnemius was 4/5. Results & Data Vital Signs (Past 12 Hours) Vital Signs Temp Pulse Pulse Resp BP Pulse Ox 12/05/18 03:15 36.4 C L 83 19 114/64 99 12/05/18 01:34 81 18 99 12/04/18 23:47 37.0 C 80 20 112/66 100 12/04/18 22:37 83 18 100 (1) Altered mental status Altered mental status type: unspecified Qualified Code(s): R41.82 - Altered mental status, unspecified (2) Low back pain Back pain laterality: midline Chronicity: acute Sciatica presence: without sciatica Qualified Code(s): M54.5 - Low back pain
[2018-12-05 07:56] LABS: Albumin Globulin Ratio 0.7 (0.9-2); Bilirubin,Total 0.8 mg/dl (0.2-1); Globulin 3.7 gm/dl (2.5-4.0); Total Protein 6.2 gm/dl (6.4-8.2)
[2018-12-05 08:10] LABS: T4 Free Thyroxine 1.12 ng/dl (0.8-1.6)
[2018-12-05] MEDS: INSULIN ASPART 100 UNITS/ML 3 ML PEN SC SCH ×4 (08:23→21:07)
[2018-12-05] MEDS: VALPROIC ACID SOLN 250 MG/5 ML UDC PO SCH ×2 (10:19→20:17)
[2018-12-05] MEDS: TAMSULOSIN HCL 0.4 MG CAP PO SCH (10:19)
[2018-12-05] MEDS: CLOPIDOGREL BISULFATE 75 MG TAB PO SCH (10:20)
[2018-12-05] MEDS: ATORVASTATIN 40 MG TAB PO SCH (10:20)
[2018-12-05] MEDS: FAMOTIDINE 20 MG TAB PO SCH (10:20)
[2018-12-05] MEDS: ASPIRIN 81 MG ECTAB PO SCH (10:20)
[2018-12-05] MEDS: METOPROLOL SUCC 50MG EXT REL TAB PO SCH (10:21)
[2018-12-05] MEDS: FINASTERIDE 5 MG TAB PO SCH (10:21)
--- NOTE | 2018-12-05 10:52 | Pharmacy Report ---
Pharmacy Glycemic Short Note 2 - Date of Service December 05, 2018 - Glycemic Short BSG Results (Last 24 hours): 12/04/18 12/04/18 12/04/18 11:03 16:04 19:51 Glucose POC Glucose 160 H 147 H 149 H 12/04/18 12/05/18 12/05/18 20:15 01:57 06:40 Glucose 175 H POC Glucose 157 H 168 H 12/05/18 07:01 Glucose POC Glucose 174 H OUTPATIENT ANTIDIABETIC REGIMEN: * Novolog per sliding scale * A1c = 5.6% 10/12/18 The patient is currently receiving: * Basal/Prandial insulin: NPH 24 units SQ daily @ 1900 (at the start of nocturnal tube feeds: Peptamen 1.5 60cc/hr x 12 hrs (~135gm CHOs) * Correctional Insulin: Novolog Correction per scale ACHS + 0200 Goal Range: Low 110 mg/dL - High 140 mg/dL Correction Factor: 20 mg/dL/unit * Prandial insulin: Per carb ratio of 1 unit per 7 grams CHO consumed ASSESSMENT: 12/05 * Pt vomited last night, new concerns for ileus at this time * Tube feeds will likely be held as a result. Will place NPH on hold until tube feeds are resumed. * Glycemic control was quite good despite these events. I do believe he will require ~1 unit NPH per ~5-6grams of CHOs delivered in tube feeds when delivered continuously over 12 hours. * Will continue Novolog CF and CR alone at this time as this has produced good results when tube feeds not in use 12/04 * BSG at goal the second half of the day yesterday and remain at goal this AM * NPH appears to be covering the carbs in tube feeds well. There were 6 units of Novolog correction given during the time the feeds were running, so there is room to increase the dose. * Spoke with dietary, the plan is to increase Peptamen 1.5 feeds to 60cc/hr tonight, thus CHO load delivered will be ~135gm over 12 hrs. New NPH dose will be based upon this new CHO load. * Novolog CF and CR performed well when used - therefore no changes 12/03 * Type 2 diabetic admitted for NSTEMI, encephalopathy, and PAULA * He has been followed by the Glycemic Control Service on prior hospitalizations. In the past he has required little to no basal insulin during hospitalization (0-5 units of basal per day). * Novolog correctional and prandial insulin initiated mid-day yesterday which did lead to improved BSG pre-dinner however continuous nocturnal tube feeds were initiated without coverage of carbs in tube feeds. This led to BSGs climbing into the 270s. It will be challenging to adequately control BSGs with 12hr nocturnal feedings. Will trial use of NPH at the beginning of tube feeds to cover carbs provided in Peptamen 1.5 (~90grams CHO's over the course of 12 hours). Will also add Novolog checks at 0000 + 0400 tonight should the NPH not adequately cover these feeds. * He continues to have a diet ordered and nocturnal feeds are to supplement his PO intake as he has not been taking in adequate calories and has been loosing weight. Dietary may titrate feeds upwards over the next day or two if PO intake remains poor. PLAN FOR INPATIENT GLYCEMIC CONTROL: * Basal insulin * Hold NPH if tube feedings are held; resume when tube feeds restarted using carb ratio of 1 unit per 5.5gm CHO in feeds * Bolus insulin * NovoLog per scale ACHS * Goal Range: Low 110 mg/dL - High 140 mg/dL * Correction Factor: 20 mg/dL/unit * Nutritional / Prandial insulin per carb ratio of 1 unit per 7 grams CHO consumed (to be used to cover carbs in meals only - not tube feedings) PLAN FOR DISCHARGE: * to be determined
--- NOTE | 2018-12-05 14:53 | Hospitalist Progress Note ---
Date of Service December 05, 2018 Assessment & Plan (1) Ileus: Ileus seen on [facility] on 12/04 (reviewed images myself). - Further emesis on 12/05, though still having bowel movements - RN also suctioned out at least 500 mL of further tube feeds from his PEG. - Holding tube feeds tonight - Discussed with Dr. Rowland on 12/05, conservative measures for now; will re- introduce tube feeds slowly as able (2) Altered mental status: Patient was having periods of confusion, hallucinations, and general shouting as well. EEG on 12/03 was negative for seizures. - Concern for medication-induced (on Haldol, risperidone, and opiate) and possibly low-flow, heart failure in nature. Metabolic encephalopathy also possible. - Discussed with neurology - MRI not an option due to his pacemaker (we checked, and it is not compatible) - Discussed with Dr. Morales who does not have further inpatient needs - Tapering risperidone dose - On 12/05, down to evening dose only from TID dosing on admission. Mental status improving. (3) Anemia: Hgb was 7.4 on presentation. Unclear cause. Heme-negative in the ED. Received 2 units PRBCs on 12/01 with an appropriate increase in hgb to 9.5. - Will get iron studies, B12, folate - Unfortunately, iron studies may be thrown off because he already received blood. - Transfuse for hgb > 9 - By 12/03, hgb had spontaneously risen to 11.2. B12 & folate both good (>2000 and 13.0). Iron studies show low iron, transferrin, and TIBC. Again, with caveat that he's already received blood, this would indicate iron deficiency/anemia of chronic disease. - Monitor hgb - was 10.8 on 12/04 (4) PAULA (acute kidney injury): Creatinine 2.04 upon admission. Most recent creatinine on 10/22/2018 was 1.29. - Suspect today is more of a prerenal/cardiorenal effect - Received 2L IV fluids in the ED, then was on 80 mL/hr rate on admission - Will stop IV fluids given his known ischemic cardiomyopathy - Monitor Cr - 1.65 on 12/04 (5) Non-ST elevated myocardial infarction (non-STEMI): Troponin was 7.31 upon admission, then 7.37. Then down to 2.7 on 12/03. Had 2 prior MIs in 07/2018 and 10/2018. Seen by cardiology who feel this is likely demand ischemia. - Keep hemoglobin > 9 - Continue medical management - No plan for intervention at this time. - Appreciate cardiology help (6) Depression: History of depression. I believe he was on the valproic acid for mood stabilization and not for seizures. - Continue divalproex - Tapered risperidone to QHS on 12/05 - Haloperidol IM as needed (7) Ischemic cardiomyopathy: Ischemic cardiomyopathy with EF 25-30% on echo on 12/02. - Continue medical management - Monitor volume status (8) Diabetes mellitus, type 2: A1c was 5.6% in 10/2018. In prior admisssions, he has not needed any long- acting, just sliding scale. - Sliding scale insulin - Continue on his usual PEG feeds supplements. - Glyemic pharmacist consult - Discussed with pharm; will likely need NPH overnight for his tube feeds (9) Abscess in epidural space of lumbar spine: CT of lumbar spine on 12/01 indicate no persistent abscess. Treatment upon discharge completed from last hospitalization: daptomycin IV, ceftriaxone IV, and caspofungin IV. - Hold any antibiotic or antifungal therapy (10) BPH (benign prostatic hyperplasia): Does not report LUTS. - Continue tamsulosin and finasteride. - Consider bladder scan as needed (11) Obstructive sleep apnea: If significant sleep apnea, will prescribe CPAP. (12) DVT prophylaxis: SCDs - Low DVT risk per admission calculator & do not want to give chemoprophylaxis in the setting of possible bleeding Subjective Improved compared to yesterday. Large emesis this morning. Is not tolerating his tube feeds Review of Systems Review of Systems: Unobtainable due to cognitive status Physical Exam Constitutional: WD/WN, vitals as above + lethargic Eyes: EOM intact bilaterally; no conjunctival abnormality ENMT: external ear and nose normal, oropharynx normal Neck: trachea midline, no thyromegaly normal visual inspection Respiratory: normal respiratory effort, lungs clear to auscultation no respiratory distress Cardiovascular: RRR, no murmur, no edema Gastrointestinal (Abdomen): Inspection/Auscultation: abdomen normal to inspection; abdomen not distended Percussion/Palpation: abdomen soft; abdomen nontender, no guarding and abdomen not rigid Musculoskeletal: no cyanosis or clubbing, extremities motor strength 5/5 Skin: no rashes, warm and dry Neurologic: moves all extremities and awake Psychiatric: Orientation: oriented to person; + not alert Results & Data Vital Signs (Past 12 Hours) Vital Signs Temp Pulse Pulse Resp BP Pulse Ox 12/05/18 11:18 36.3 C L 78 19 128/75 98 12/05/18 08:02 36.9 C 86 19 142/66 H 99 12/05/18 03:15 36.4 C L 83 19 114/64 99 PG Care Time/CCT Total # of Minutes Spent Total Time Spent with Patient: Total time spent is greater than 50% in coor dination of care (as documented) at patient's floor/unit and/or counseling patient: (1) Altered mental status Altered mental status type: unspecified Qualified Code(s): R41.82 - Altered mental status, unspecified (2) Anemia Anemia type: unspecified type Qualified Code(s): D64.9 - Anemia, unspecified
[2018-12-05] MEDS: risperiDONE 0.5 MG TABLET PO SCH (20:17)
[2018-12-06 06:35] LABS: Hematocrit (blood only) 31.4 % (42-52); Hemoglobin 10.2 g/dL (14.0-18.0); Mean Corpuscular Hgb Conc 32.5 g/dL (32-36); Mean Corpuscular Volume 92.1 fL (80-100); Mean Platelet Volume 8.7 fL (7.4-10.4); Platelet Count 192 K/uL (130-400); RDW Coefficient of Variation 17.7 % (11.5-14.5); RDW Standard Deviation 59.8 fL (36.4-46.3); Red Blood Count 3.41 M/uL (4.7-6.1)
[2018-12-06 07:10] LABS: BUN Creatinine Ratio 34.1 (10-20); Calcium 8.6 mg/dl (8.5-10.1); Creatinine Clr Calc Pharmacy 56.7 ml/min; Est GFR (Non-African American) 55.2; Potassium 4.3 mmol/L (3.5-5.1)
--- NOTE | 2018-12-06 08:18 | Pharmacy Report ---
Pharmacy Glycemic Short Note 2 - Date of Service December 06, 2018 - Glycemic Short BSG Results (Last 24 hours): 12/05/18 12/05/18 12/05/18 11:17 16:03 20:21 Glucose POC Glucose 137 H 118 H 104 H 12/06/18 12/06/18 06:21 07:35 Glucose 76 POC Glucose 84 OUTPATIENT ANTIDIABETIC REGIMEN: * Novolog per sliding scale * A1c = 5.6% 10/12/18 The patient is currently receiving: * Basal/Prandial insulin: ON HOLD NPH 24 units SQ daily @ 1900 (at the start of nocturnal tube feeds: Peptamen 1.5 60cc/hr x 12 hrs (~135gm CHOs) * Correctional Insulin: Novolog Correction per scale ACHS + 0200 Goal Range: Low 110 mg/dL - High 140 mg/dL Correction Factor: 20 mg/dL/unit * Prandial insulin: Per carb ratio of 1 unit per 7 grams CHO consumed ASSESSMENT: 12/06 * Tube feeds remain on hold; therefore, NPH remains on hold * BSGs have ranged from 76-137 mg/dL in the past 24 hours * Patient only received 4 units of insulin yesterday * Provider's note indicates that trickle tube feeds may be resumed tonight. If this is the case, expect patient to only need a few units of NPH to cover them. Unsure if patient will be able to tolerate tube feeds, so will plan to order overnight coverage with Novolog instead and have carbs covered this way. 12/05 * Pt vomited last night, new concerns for ileus at this time * Tube feeds will likely be held as a result. Will place NPH on hold until tube feeds are resumed. * Glycemic control was quite good despite these events. I do believe he will require ~1 unit NPH per ~5-6grams of CHOs delivered in tube feeds when delivered continuously over 12 hours. * Will continue Novolog CF and CR alone at this time as this has produced good results when tube feeds not in use 12/04 * BSG at goal the second half of the day yesterday and remain at goal this AM * NPH appears to be covering the carbs in tube feeds well. There were 6 units of Novolog correction given during the time the feeds were running, so there is room to increase the dose. * Spoke with dietary, the plan is to increase Peptamen 1.5 feeds to 60cc/hr tonight, thus CHO load delivered will be ~135gm over 12 hrs. New NPH dose will be based upon this new CHO load. * Novolog CF and CR performed well when used - therefore no changes 12/03 * Type 2 diabetic admitted for NSTEMI, encephalopathy, and PAULA * He has been followed by the Glycemic Control Service on prior hospitalizations. In the past he has required little to no basal insulin during hospitalization (0-5 units of basal per day). * Novolog correctional and prandial insulin initiated mid-day yesterday which did lead to improved BSG pre-dinner however continuous nocturnal tube feeds were initiated without coverage of carbs in tube feeds. This led to BSGs climbing into the 270s. It will be challenging to adequately control BSGs with 12hr nocturnal feedings. Will trial use of NPH at the beginning of tube feeds to cover carbs provided in Peptamen 1.5 (~90grams CHO's over the course of 12 hours). Will also add Novolog checks at 0000 + 0400 tonight should the NPH not adequately cover these feeds. * He continues to have a diet ordered and nocturnal feeds are to supplement his PO intake as he has not been taking in adequate calories and has been loosing weight. Dietary may titrate feeds upwards over the next day or two if PO intake remains poor. PLAN FOR INPATIENT GLYCEMIC CONTROL: * Basal insulin * Hold NPH while tube feedings are held/running at a low rate * Bolus insulin - no change * NovoLog per scale ACHS * Goal Range: Low 110 mg/dL - High 140 mg/dL * Correction Factor: 20 mg/dL/unit * Nutritional / Prandial insulin per carb ratio of 1 unit per 7 grams CHO consumed (to cover po intake and trickle tube feeds) PLAN FOR DISCHARGE: * to be determined
[2018-12-06] MEDS: ASPIRIN 81 MG ECTAB PO SCH ×2 (08:35→09:37)
[2018-12-06] MEDS: METOPROLOL SUCC 50MG EXT REL TAB PO SCH ×2 (08:35→09:39)
[2018-12-06] MEDS: VALPROIC ACID SOLN 250 MG/5 ML UDC PO SCH ×3 (08:35→20:49)
[2018-12-06] MEDS: ATORVASTATIN 40 MG TAB PO SCH ×2 (08:35→09:37)
[2018-12-06] MEDS: FAMOTIDINE 20 MG TAB PO SCH ×2 (08:35→09:38)
[2018-12-06] MEDS: FINASTERIDE 5 MG TAB PO SCH ×2 (08:35→09:38)
[2018-12-06] MEDS: TAMSULOSIN HCL 0.4 MG CAP PO SCH ×2 (08:35→09:37)
[2018-12-06] MEDS: CLOPIDOGREL BISULFATE 75 MG TAB PO SCH ×2 (08:35→09:38)
--- NOTE | 2018-12-06 10:10 | XRay Report ---
[facility] CLINICAL HISTORY: Ileus. FINDINGS: 2 AP, portable, supine abdominal radiographs are compared to study dated 12/04/2018 and autumn elated with abdominal CT dated 12/01/2018. A gastrostomy tube projects over the left upper quadrant. T here is no radiographic evidence of high-grade bowel obstruction. Mild gaseous distention of the smal l bowel loops has improved from previous. No evidence of intraperitoneal free air is seen on these [place] images. Surgical clips project over the upper abdomen. The heart is enlarged. Midline sternotomy wires and AICD leads are noted in the lower chest. Small pleural effusions are identified. The skele lance structures are osteopenic. Degenerative change and extensive fusion hardware is noted in the lumb osacral spine. A large bone island is again seen in the left femoral head. IMPRESSION: There is mild gaseous distention of the small bowel loops which has improved from 12/05/19 19. This likely represents ileus as clinically suspected. There is no evidence of high-grade bowel ob struction. Electronically signed by: Vinicius Almaraz M.D. 12/06/2018 10:08 AM
[2018-12-06] MEDS ORDERED: INSULIN ASPART 100 UNITS/ML 3 ML PEN SC SCH (12:00)
--- NOTE | 2018-12-06 12:29 | Hospitalist Progress Note ---
Date of Service December 06, 2018 Assessment & Plan (1) Ileus: Ileus seen on [facility] on 12/04 (reviewed images myself). - Further emesis on 12/05, though still having bowel movements - RN also suctioned out at least 500 mL of further tube feeds from his PEG. - Held tube feeds over night of 12/05-12/06 - Discussed with Dr. Rowland on 12/05, conservative measures for now; will re- introduce tube feeds slowly as able - KUB on 12/06 (by my review) looks improved. Will stop suction and allow him to start taking in minimal fluids. Will restart trickle tube feeds tonight if no emesis. (2) Altered mental status: Patient was having periods of confusion, hallucinations, and general shouting as well. EEG on 12/03 was negative for seizures. - Concern for medication-induced (on Haldol, risperidone, and opiate) and possibly low-flow, heart failure in nature. Metabolic encephalopathy also possible. - Discussed with neurology - MRI not an option due to his pacemaker (we checked, and it is not compatible) - Discussed with Dr. Morales who does not have further inpatient needs - Tapering risperidone dose - Will stop risperidone with evening dose on 12/06. (3) Anemia: Hgb was 7.4 on presentation. Unclear cause. Heme-negative in the ED. Received 2 units PRBCs on 12/01 with an appropriate increase in hgb to 9.5. - Will get iron studies, B12, folate - Unfortunately, iron studies may be thrown off because he already received blood. - Transfuse for hgb > 9 - By 12/03, hgb had spontaneously risen to 11.2. B12 & folate both good (>2000 and 13.0). Iron studies show low iron, transferrin, and TIBC. Again, with caveat that he's already received blood, this would indicate iron deficiency/anemia of chronic disease. - Monitor hgb - was 10.2 on 12/06 - Has been stable at 10-11 since getting his blood. (4) PAULA (acute kidney injury): Creatinine 2.04 upon admission. Most recent creatinine on 10/22/2018 was 1.29. - Suspect today is more of a prerenal/cardiorenal effect - Received 2L IV fluids in the ED, then was on 80 mL/hr rate on admission - Will stop IV fluids given his known ischemic cardiomyopathy - Monitor Cr - 1.35 on 12/06 - At baseline. (5) Non-ST elevated myocardial infarction (non-STEMI): Troponin was 7.31 upon admission, then 7.37. Then down to 2.7 on 12/03. Had 2 prior MIs in 07/2018 and 10/2018. Seen by cardiology who feel this is likely demand ischemia. - Keep hemoglobin > 9 - Continue medical management - No plan for intervention at this time. - Appreciate cardiology help (6) Depression: History of depression. I believe he was on the valproic acid for mood stabilization and not for seizures. - Continue divalproex - Tapered risperidone to QHS on 12/05 - Stopped on 12/06 per neurology recs - Haloperidol IM as needed (7) Ischemic cardiomyopathy: Ischemic cardiomyopathy with EF 25-30% on echo on 12/02. - Continue medical management - Monitor volume status (8) Diabetes mellitus, type 2: A1c was 5.6% in 10/2018. In prior admissions, he has not needed any long-acting, just sliding scale. - Sliding scale insulin - Continue on his usual PEG feeds supplements. - Glyemic pharmacist consult - Discussed with pharm; will likely need NPH overnight for his tube feeds (9) Abscess in epidural space of lumbar spine: CT of lumbar spine on 12/01 indicate no persistent abscess. Treatment upon discharge completed from last hospitalization: daptomycin IV, ceftriaxone IV, and caspofungin IV. - Hold any antibiotic or antifungal therapy (10) BPH (benign prostatic hyperplasia): Does not report LUTS. - Continue tamsulosin and finasteride. - Consider bladder scan as needed (11) Obstructive sleep apnea: If significant sleep apnea, will prescribe CPAP. (12) DVT prophylaxis: Lovenox 40mg daily - Monitor renal function Subjective Wakes up easily. Was AAOx2 which is an improvement. No emesis, but some nausea. Review of Systems Review of Systems: Unobtainable due to cognitive status Physical Exam Constitutional: WD/WN, vitals as above + lethargic Eyes: EOM intact bilaterally; no conjunctival abnormality ENMT: external ear and nose normal, oropharynx normal Neck: trachea midline, no thyromegaly normal visual inspection Respiratory: normal respiratory effort, lungs clear to auscultation no respiratory distress Cardiovascular: RRR, no murmur, no edema Gastrointestinal (Abdomen): Inspection/Auscultation: abdomen normal to inspection; abdomen not distended Percussion/Palpation: abdomen soft; abdomen nontender, no guarding and abdomen not rigid Musculoskeletal: no cyanosis or clubbing, extremities motor strength 5/5 Skin: no rashes, warm and dry Neurologic: moves all extremities and awake Psychiatric: Orientation: oriented to person; + not alert Results & Data Vital Signs (Past 12 Hours) Vital Signs Temp Pulse Pulse Pulse Resp BP Pulse Ox 12/06/18 11:11 36.7 C 70 18 113/56 L 96 12/06/18 07:44 77 12/06/18 07:36 77 17 111/59 L 99 12/06/18 03:57 36.9 C 76 17 108/54 L 99 PG Care Time/CCT Total # of Minutes Spent Total Time Spent with Patient: Total time spent is greater than 50% in coordination of care (as documented) at patient's floor/unit and/or counseling patient: (1) Altered mental status Altered mental status type: unspecified Qualified Code(s): R41.82 - Altered mental status, unspecified (2) Anemia Anemia type: unspecified type Qualified Code(s): D64.9 - Anemia, unspecified
[2018-12-06] MEDS ORDERED: IRON SUCROSE 100 MG in 0.9 % SODIUM CHLORIDE 100 ML IV SCH (13:30)
[2018-12-06] MEDS ORDERED: Nursing to Pharmacy Communication ONE (17:39)
[2018-12-06] MEDS: risperiDONE 0.5 MG TABLET PO SCH (20:48)
[2018-12-06] MEDS: INSULIN ASPART 100 UNITS/ML 3 ML PEN SC SCH (20:48)
[2018-12-06] MEDS: ONDANSETRON INJ 2 MG/ML 2 ML VIAL IV PRN (20:51)
[2018-12-06] MEDS: TRAMADOL HCL 50 MG TABLET PO PRN (21:29)
[2018-12-06] MEDS: ACETAMINOPHEN 325 MG TAB PO PRN (23:24)
[2018-12-07 05:34] LABS: Hemoglobin 10.2 g/dL (14.0-18.0); Mean Corpuscular Hgb Conc 31.9 g/dL (32-36); Mean Corpuscular Volume 91.7 fL (80-100); Platelet Count 182 K/uL (130-400); RDW Coefficient of Variation 17.5 % (11.5-14.5); RDW Standard Deviation 58.4 fL (36.4-46.3); Red Blood Count 3.49 M/uL (4.7-6.1); White Blood Count 4.09 K/uL (4.8-10.8)
[2018-12-07 06:10] LABS: BUN Creatinine Ratio 31.9 (10-20); Calcium 8.2 mg/dl (8.5-10.1); Creatinine Clr Calc Pharmacy 62.3 ml/min; Est GFR (African American) 71.7; Est GFR (Non-African American) 61.8; Potassium 3.9 mmol/L (3.5-5.1)
[2018-12-07] MEDS: ATORVASTATIN 40 MG TAB PO SCH (08:02)
[2018-12-07] MEDS: TAMSULOSIN HCL 0.4 MG CAP PO SCH (08:02)
[2018-12-07] MEDS: CLOPIDOGREL BISULFATE 75 MG TAB PO SCH (08:02)
[2018-12-07] MEDS: ASPIRIN 81 MG ECTAB PO SCH (08:02)
[2018-12-07] MEDS: VALPROIC ACID SOLN 250 MG/5 ML UDC PO SCH ×2 (08:02→21:24)
[2018-12-07] MEDS: FINASTERIDE 5 MG TAB PO SCH (08:02)
[2018-12-07] MEDS: METOPROLOL SUCC 50MG EXT REL TAB PO SCH (08:02)
[2018-12-07] MEDS: FAMOTIDINE 20 MG TAB PO SCH (08:03)
[2018-12-07] MEDS: INSULIN ASPART 100 UNITS/ML 3 ML PEN SC SCH ×4 (08:04→20:41)
[2018-12-07] MEDS: TRAMADOL HCL 50 MG TABLET PO PRN ×4 (09:18→22:03)
--- NOTE | 2018-12-07 10:34 | Pharmacy Report ---
Pharmacy Glycemic Short Note 2 - Date of Service December 07, 2018 - Glycemic Short BSG Results (Last 24 hours): 12/06/18 12/06/18 12/06/18 11:12 16:18 19:59 Glucose POC Glucose 81 148 H 195 H 12/07/18 12/07/18 05:08 07:56 Glucose 100 H POC Glucose 143 H OUTPATIENT ANTIDIABETIC REGIMEN: * Novolog per sliding scale * A1c = 5.6% 10/12/18 The patient is currently receiving: * Basal/Prandial insulin: ON HOLD NPH 24 units SQ daily @ 1900 (at the start of nocturnal tube feeds: Peptamen 1.5 60cc/hr x 12 hrs (~135gm CHOs) * Correctional Insulin: Novolog Correction per scale ACHS Goal Range: Low 110 mg/dL - High 140 mg/dL Correction Factor: 20 mg/dL/unit * Prandial insulin: Per carb ratio of 1 unit per 7 grams CHO consumed ASSESSMENT: 12/07 * Mr. Cooper rec'd 6 units of insulin yesterday (bolus insulin only), with BSGs ranging from 81-195 mg/dL in the past 24 hours * Tube feeds remain on hold. His diet has been advanced and seems to be tolerating okay. Per discussion with the nurse, provider had noted that tube feeds would unlikely be resumed. Once daily Boost has been added. 12/06 * Tube feeds remain on hold; therefore, NPH remains on hold * BSGs have ranged from 76-137 mg/dL in the past 24 hours * Patient only received 4 units of insulin yesterday * Provider's note indicates that trickle tube feeds may be resumed tonight. If this is the case, expect patient to only need a few units of NPH to cover them. Unsure if patient will be able to tolerate tube feeds, so will plan to order overnight coverage with Novolog instead and have carbs covered this way. 12/05 * Pt vomited last night, new concerns for ileus at this time * Tube feeds will likely be held as a result. Will place NPH on hold until tube feeds are resumed. * Glycemic control was quite good despite these events. I do believe he will require ~1 unit NPH per ~5-6grams of CHOs delivered in tube feeds when delivered continuously over 12 hours. * Will continue Novolog CF and CR alone at this time as this has produced good results when tube feeds not in use 12/04 * BSG at goal the second half of the day yesterday and remain at goal this AM * NPH appears to be covering the carbs in tube feeds well. There were 6 units of Novolog correction given during the time the feeds were running, so there i s room to increase the dose. * Spoke with dietary, the plan is to increase Peptamen 1.5 feeds to 60cc/hr tonight, thus CHO load delivered will be ~135gm over 12 hrs. New NPH dose will be based upon this new CHO load. * Novolog CF and CR performed well when used - therefore no changes 12/03 * Type 2 diabetic admitted for NSTEMI, encephalopathy, and PAULA * He has been followed by the Glycemic Control Service on prior hospitalizations. In the past he has required little to no basal insulin during hospitalization (0-5 units of basal per day). * Novolog correctional and prandial insulin initiated mid-day yesterday which did lead to improved BSG pre-dinner however continuous nocturnal tube feeds were initiated without coverage of carbs in tube feeds. This led to BSGs climbing into the 270s. It will be challenging to adequately control BSGs with 12hr nocturnal feedings. Will trial use of NPH at the beginning of tube feeds to cover carbs provided in Peptamen 1.5 (~90grams CHO's over the course of 12 hours). Will also add Novolog checks at 0000 + 0400 tonight should the NPH not adequately cover these feeds. * He continues to have a diet ordered and nocturnal feeds are to supplement his PO intake as he has not been taking in adequate calories and has been loosing weight. Dietary may titrate feeds upwards over the next day or two if PO intake remains poor. PLAN FOR INPATIENT GLYCEMIC CONTROL: * Basal insulin * Hold for now while tube feeds are on hold and BSGs well controlled * Bolus insulin - no change * NovoLog per scale ACHS * Goal Range: Low 110 mg/dL - High 140 mg/dL * Correction Factor: 20 mg/dL/unit * Nutritional / Prandial insulin per carb ratio of 1 unit per 7 grams CHO consumed (to cover CHO from all sources - po intake, tube feeds if resumed at a trickle rate, or Boost supplements) PLAN FOR DISCHARGE: * If patient will not be discharged on tube feeds, recommend to resume outpatient regimen of Novolog per sliding scale on discharge
[2018-12-07] MEDS: ALUMINUM/MAGNESIUM SUSP 30 ML UDC PO PRN (12:13)
--- NOTE | 2018-12-07 13:53 | Hospitalist Progress Note ---
Date of Service December 07, 2018 Assessment & Plan (1) Ileus: Ileus seen on KUB on 12/04 (reviewed images myself). Had emesis of his overnight tube feeds on 12/04. (PEG inserted at [facility] for better nutrition about 1 month ago.) - Further emesis on 12/05, though still having bowel movements. RN also suctioned out at least 500 mL of further tube feeds from his PEG. - Held tube feeds over night of 12/05-12/06 - KUB on 12/06 (by my review) looks improved. Will stop suction and allow him to start taking in minimal fluids. Will restart trickle tube feeds tonight if no emesis. - Advanced diet to full liquids with a boost on 12/07. Could likely advance to mechanical soft on 12/08 and consider discharge back to [facility]. - Will hold overnight tube feeds for now as he seems to have a better appetite and may be able to cover his calorie needs with normal eating. - Will need to follow up with gen surg for PEG removal in 2-3 months if he continues to improve. (2) Altered mental status: Patient was having periods of confusion, hallucinations, and general shouting as well. EEG on 12/03 was negative for seizures. Due to risperidone. This was tapered and stopped on 12/06 with great improvement in his mental status. - Neurology has been following - MRI not an option due to his pacemaker (we checked, and it is not compatible) - As of 12/06, I think he is about the best we can get him. He is alert, responsive, recognizes visitors. AAOx2 (self & location). Can follow up with Dr. Mims as outpatient. - Of note, he shouts a lot in the mornings, but seems to clear on his own by late morning. (3) Anemia: Hgb was 7.4 on presentation. Heme-negative in the ED. Received 2 units PRBCs on 12/01 with an appropriate increase in hgb to 9.5. - By 12/03, hgb had spontaneously risen to 11.2. B12 & folate both good (>2000 and 13.0). Iron studies show low iron, transferrin, and TIBC. With caveat that he'd already received blood, this would indicate iron deficiency/anemia of chronic disease. - Monitor hgb - was 10.2 on 12/07 - Has been stable at 10-11 since getting his blood. (4) PAULA (acute kidney injury): Creatinine 2.04 upon admission. Most recent creatinine on 10/22/2018 was 1.29. - Suspect is more of a prerenal - Received 2L IV fluids in the ED, then was on 80 mL/hr rate on admission; stopped after about 48 hours due to his known cardiomyopathy. - Monitor Cr - 1.2 on 12/07 - At baseline. (5) Non-ST elevated myocardial infarction (non-STEMI): Troponin was 7.31 upon admission, then 7.37. Then down to 2.7 on 12/03. Had 2 prior MIs in 07/2018 and 10/2018. Seen by cardiology who feel this is likely demand ischemia. - Keep hemoglobin > 9 - Continue medical management - No plan for intervention at this time. (6) Depression: History of depression. I believe he was on the valproic acid for mood stabilization and not for seizures. - Continue divalproex - Tapered risperidone to QHS on 12/05 - Stopped on 12/06 per neurology recs - Haloperidol IM as needed - Have asked the nurse only to give in the setting of patient or staff safety. (7) Ischemic cardiomyopathy: Ischemic cardiomyopathy with EF 25-30% on echo on 12/02. - Continue medical management - Monitor volume status (8) Diabetes mellitus, type 2: A1c was 5.6% in 10/2018. In prior admissions, he has not needed any long- acting, just sliding scale. - Sliding scale insulin - Glycemic pharmacist consult (9) Abscess in epidural space of lumbar spine: CT of lumbar spine on 12/01 indicate no persistent abscess. Treatment upon discharge completed from last hospitalization: daptomycin IV, ceftriaxone IV, and caspofungin IV. - Hold any antibiotic or antifungal therapy (10) BPH (benign prostatic hyperplasia): Did not report LUTS, but got a Rojas at some point in the hospitalization. - Continue tamsulosin and finasteride. - Remove Rojas - Consider bladder scan as needed (11) Obstructive sleep apnea: If significant sleep apnea, will prescribe CPAP. (12) DVT prophylaxis: Lovenox 40mg daily - Monitor renal function Subjective Feeling well. Has a better appetite. Still with some shouting in the morning. Review of Systems Review of Systems: All systems reviewed & are unremarkable except as noted in HPI & below Physical Exam Constitutional: WD/WN, vitals as above Eyes: EOM intact bilaterally; no conjunctival abnormality ENMT: external ear and nose normal, oropharynx normal Neck: trachea midline, no thyromegaly normal visual inspection Respiratory: normal respiratory effort, lungs clear to auscultation no respiratory distress Cardiovascular: RRR, no murmur, no edema Gastrointestinal (Abdomen): Inspection/Auscultation: abdomen normal to inspection and + abdominal surgical incision (PEG tube site without erythema or discharge); abdomen not distended Musculoskeletal: no cyanosis or clubbing, extremities motor strength 5/5 Skin: no rashes, warm and dry Neurologic: moves all extremities and awake Psychiatric: Orientation: alert, oriented to person and cooperative Results & Data Vital Signs (Past 12 Hours) Vital Signs Temp Pulse Resp BP Pulse Ox 12/07/18 07:19 36.7 C 71 16 106/64 100 PG Care Time/CCT Total # of Minutes Spent Total Time Spent with Patient: Total time spent is greater than 50% in coordination of care (as documented) at patient's floor/unit and/or counseling patient: (1) Altered mental status Altered mental status type: unspecified Qualified Code(s): R41.82 - Altered mental status, unspecified (2) Anemia Anemia type: unspecified type Qualified Code(s): D64.9 - Anemia, unspecified
[2018-12-08] MEDS: TRAMADOL HCL 50 MG TABLET PO PRN (02:30)
--- NOTE | 2018-12-08 07:28 | XRay Report ---
XR KUB/Abdomen 1 view CLINICAL HISTORY: Nausea with eating pain COMPARISON STUDY: 12/06/2018 FINDINGS: Mild generalized nonobstructive ileus. Slight increase in distention compared to the prior study. Stable postoperative changes of the lumbar spine. IMPRESSION: Generalized nonobstructive ileus slightly progressive from the prior exam. The above report was generated using voice recognition software. It may contain grammatical, syntax or spelling errors. Electronically signed by: Samuel Lindo M.D. 12/08/2018 7:27 AM
[2018-12-08] MEDS: ASPIRIN 81 MG ECTAB PO SCH (07:34)
[2018-12-08] MEDS: VALPROIC ACID SOLN 250 MG/5 ML UDC PO SCH ×2 (07:34→21:23)
[2018-12-08] MEDS: CLOPIDOGREL BISULFATE 75 MG TAB PO SCH (07:34)
[2018-12-08] MEDS: FINASTERIDE 5 MG TAB PO SCH (07:34)
[2018-12-08] MEDS: METOPROLOL SUCC 50MG EXT REL TAB PO SCH (07:34)
[2018-12-08] MEDS: FAMOTIDINE 20 MG TAB PO SCH (07:34)
[2018-12-08] MEDS: ATORVASTATIN 40 MG TAB PO SCH (07:34)
[2018-12-08] MEDS: TAMSULOSIN HCL 0.4 MG CAP PO SCH (07:34)
[2018-12-08] MEDS: INSULIN ASPART 100 UNITS/ML 3 ML PEN SC SCH ×4 (08:23→21:22)
--- NOTE | 2018-12-08 21:09 | Hospitalist Progress Note ---
Date of Service December 08, 2018 Assessment & Plan (1) Ileus: Ileus seen on KUB on 12/04 (reviewed images myself). Had emesis of his overnight tube feeds on 12/04. (PEG inserted at [facility] for better nutrition about 1 month ago.) - Further emesis on 12/05, though still having bowel movements. RN also suctioned out at least 500 mL of further tube feeds from his PEG. - Held tube feeds over night of 12/05-12/06 - KUB on 12/06 (by my review) looks improved. Will stop suction and allow him to start taking in minimal fluids. Will restart trickle tube feeds tonight if no emesis. - Advanced diet to full liquids with a boost on 12/07. - Will hold overnight tube feeds for now as he seems to have a better appetite and may be able to cover his calorie needs with normal eating. - Will need to follow up with gen surg for PEG removal in 2-3 months if he continues to improve. -Consulted GI. may adavcne to mechanical soft diet. But will hold for now. (2) Altered mental status: Patient was having periods of confusion, hallucinations, and general shouting as well. EEG on 12/03 was negative for seizures. Due to risperidone. This was tapered and stopped on 12/06 with great improvement in his mental status. - Neurology has been following - MRI not an option due to his pacemaker (we checked, and it is not compatible) - As of 12/06, I think he is about the best we can get him. He is alert, responsive, recognizes visitors. AAOx2 (self & location). Can follow up with Dr. Mims as outpatient. - Of note, he shouts a lot in the mornings, but seems to clear on his own by late morning. -Will hold pain medicine. D/W nursing will try to limit tramadol. (3) Anemia: Hgb was 7.4 on presentation. Heme-negative in the ED. Received 2 units PRBCs on 12/01 with an appropriate increase in hgb to 9.5. - By 12/03, hgb had spontaneously risen to 11.2. B12 & folate both good (>2000 and 13.0). Iron studies show low iron, transferrin, and TIBC. With caveat that he'd already received blood, this would indicate iron deficiency/anemia of chronic disease. - Monitor hgb - was 10.2 on 12/07 - Has been stable at 10-11 since getting his blood. (4) PAULA (acute kidney injury): Creatinine 2.04 upon admission. Most recent creatinine on 10/22/2018 was 1.29. - Suspect is more of a prerenal - Received 2L IV fluids in the ED, then was on 80 mL/hr rate on admission; stopped after about 48 hours due to his known cardiomyopathy. - Monitor Cr - 1.2 (5) Non-ST elevated myocardial infarction (non-STEMI): Troponin was 7.31 upon admission, then 7.37. Then down to 2.7 on 12/03. Had 2 prior MIs in 07/2018 and 10/2018. Seen by cardiology who feel this is likely demand ischemia. - Keep hemoglobin > 9 - Continue medical management - No plan for intervention at this time. (6) Depression: History of depression. I believe he was on the valproic acid for mood stabilization and not for seizures. - Continue divalproex - Tapered risperidone to QHS on 12/05 - Stopped on 12/06 per neurology recs - Haloperidol IM as needed - Have asked the nurse only to give in the setting of patient or staff safety. (7) Ischemic cardiomyopathy: Ischemic cardiomyopathy with EF 25-30% on echo on 12/02. - Continue medical management - Monitor volume status (8) Diabetes mellitus, type 2: A1c was 5.6% in 10/2018. In prior admissions, he has not needed any long- acting, just sliding scale. - Sliding scale insulin - Glycemic pharmacist consult (9) Abscess in epidural space of lumbar spine: CT of lumbar spine on 12/01 indicate no persistent abscess. Treatment upon discharge completed from last hospitalization: daptomycin IV, ceftriaxone IV, and caspofungin IV. - Hold any antibiotic or antifungal therapy (10) BPH (benign prostatic hyperplasia): Did not report LUTS, but got a Rojas at some point in the hospitalization. - Continue tamsulosin and finasteride. - Remove Rojas - Consider bladder scan as needed (11) Obstructive sleep apnea: If significant sleep apnea, will prescribe CPAP. (12) DVT prophylaxis: Lovenox 40mg daily - Monitor renal function Spent 35 minutes in management of patient. Subjective 67 yo male reports no new complaints. He continues to be shouting while in the room alone. Review of Systems Review of Systems: Unobtainable due to mental health condition Physical Exam Physical Exam: Constitutional: WD/WN, vitals as above Eyes: EOM intact bilaterally; no conjunctival abnormality ENMT: external ear and nose normal, oropharynx normal Neck: trachea midline, no thyromegaly normal visual inspection Respiratory: normal respiratory effort, lungs clear to auscultation no respiratory distress Cardiovascular: RRR, no murmur, no edema Gastrointestinal (Abdomen): Inspection/Auscultation: abdomen normal to inspection and + abdominal surgical incision (PEG tube site without erythema or discharge); abdomen not distended Musculoskeletal: no cyanosis or clubbing, extremities motor strength 5/5 Skin: no rashes, warm and dry Neurologic: moves all extremities and awake Psychiatric: Orientation: alert, oriented to person and cooperative Results & Data Vital Signs (Past 12 Hours) Vital Signs Temp Pulse Resp BP Pulse Ox 12/08/18 15:17 36.4 C L 66 18 108/65 94 PG Care Time/CCT Total # of Minutes Spent Total Time Spent with Patient: Total time spent is greater than 50% in coordination of care (as documented) at patient's floor/unit and/or counseling patient: (1) Anemia Anemia type: unspecified type Qualified Code(s): D64.9 - Anemia, unspecified (2) Altered mental status Altered mental status type: unspecified Qualified Code(s): R41.82 - Altered mental status, unspecified
[2018-12-09] MEDS: TRAMADOL HCL 50 MG TABLET PO PRN ×3 (02:06→13:42)
[2018-12-09] MEDS: HALOPERIDOL LACTATE 5 MG/ML 1 ML VIAL IM PRN (03:57)
[2018-12-09] MEDS: TAMSULOSIN HCL 0.4 MG CAP PO SCH (08:01)
[2018-12-09] MEDS: ASPIRIN 81 MG ECTAB PO SCH (08:01)
[2018-12-09] MEDS: FAMOTIDINE 20 MG TAB PO SCH (08:02)
[2018-12-09] MEDS: ATORVASTATIN 40 MG TAB PO SCH (08:02)
[2018-12-09] MEDS: CLOPIDOGREL BISULFATE 75 MG TAB PO SCH (08:03)
[2018-12-09] MEDS: FINASTERIDE 5 MG TAB PO SCH (08:03)
[2018-12-09] MEDS: METOPROLOL SUCC 50MG EXT REL TAB PO SCH (08:03)
[2018-12-09] MEDS: VALPROIC ACID SOLN 250 MG/5 ML UDC PO SCH ×2 (08:04→21:16)
[2018-12-09] MEDS: INSULIN ASPART 100 UNITS/ML 3 ML PEN SC SCH ×4 (08:54→21:38)
--- NOTE | 2018-12-09 12:07 | Pharmacy Report ---
Glycemic Control Progress Note - Date of Service December 09, 2018 - Scope Glycemic Pharmacist consulted for glycemic control to write orders per [facility] inpatient glycemic control protocol. - Objective Accuchecks BSG(last 24 hours):: 12/08/18 12/08/18 12/09/18 17:16 20:01 07:51 POC Glucose 104 H 109 H 114 H - Recent Pertinent Medications The patient is currently receiving: * Basal insulin: Lantus 0 units every 12 hours * Correctional Insulin: Novolog Correction per scale ACHS Goal Range: Low 110 mg/dL - High 140 mg/dL Correction Factor: 25 mg/dL/unit * Prandial insulin: Per carb ratio of 1 unit per 8 grams CHO consumed - Outpatient Anti-Diabetic Meds Novolog Sliding Scale - Assessment & Plan ASSESSMENT: * See progress note from 12/02/18 for more background info, in short: * Pt receiving SQ basal bolus insulin regimen for hyperglycemia secondary to baseline DM (outpatient regimen on hold). * Patient is currently receiving an average of 6 units of insulin per day * 0 units of basal insulin * 6 units of prandial/correctional insulin * BSGs ranging 104 - 127 mg/dl over the past 24hrs * Changes needed to insulin regimen: * AM Fasting BSG = 114 mg/dl. This is in goal range for patient based on inpatient targets and co-morbidities. Therefore will continue to hold basal insulin. * Post-prandial BSGs are in range therefore no changes needed to CF/CR. * Total daily dose = <10 units/day. * Additional notes / comments: Will not sign off as of yet because patient has changing dietary requirements. PLAN FOR INPATIENT GLYCEMIC CONTROL: * Continuing correction factor to 25 mg/dl/unit * Continuing carb ratio of 1 unit per 8 grams CHO consumed * Continuing goal range of Low 110 mg/dL - High 140 mg/dL RECOMMENDATIONS FOR DISCHARGE: * Depends on discharge plan for nutrition. * Please note that the plan above was derived based on current level of insulin resistance and hospital stress. These recommendations are appropriate for inpatient admission only. Plan of care upon discharge will need to be reassessed to avoid potential outpatient hypo/hyperglycemia. Thank you.
--- NOTE | 2018-12-09 17:41 | Gastrointestinal Consultation ---
Date of Consultation December 09, 2018 Assessment & Plan (1) Ileus: No evidence of obstruction or ileus clinically, seems like constipation, ok for agressive bowel prep. Tap water enema x 1 tonight. Miralax TID Dulcolax 10mg tonight. Supervising Physician Co-Signing Physician Notes I performed a history and physical examination of the patient, including specifically on physical exam - soft, nontender abdomen. I have discussed the patient's management with Taylor. Please refer to the nurse practitioner's note for the documented findings and plan of care. 67 male with multiple comorbids, bedridden, sent from [place] for confusion, GI consulted for possible ileus on KUB, seems like constipation, rectal exam with hard stool. Plan: Trial of Relistor as he is n Tramadol Bowel regimen with Miralax and Dulcolax. Recall GI if needed. History of Present Illness Reason for Consultation: ileus Requesting Physician: Dr. Manning Attending Physician: Juan Manning History of Present Illness Mr. Leandro Cooper is a 67 yr old male with a complicated hx including DM-2, diabetic neuropathy, CAD,Obesity, epidural abcess who was admitted for confusion from [facility] on 12/01. GI is consulted for ileus. CT with ileus but no obstruction. Pt oozing small amts of brown BMs. Pt is immobile and on Haldol, finaseride, motoprolol and Tramadol. Allergies Allergy/AdvReac Type Severity Reaction Status Date / Time No Known Drug Allergies Allergy Unknown Unverified 12/01/18 19:27 Home Medications Home Medications Medication Instructions Recorded Confirmed Type Eternal Feed Order 60 ml PEG HS 12/01/18 12/01/18 History Flush 120 ml PEG UD 12/01/18 12/01/18 History House Shake 1 dose PO TIDM 12/01/18 12/01/18 History Prune Juice/Stewed Prunes 1 dose PO UD PRN 12/01/18 12/01/18 History acetaminophen [Tylenol] 975 mg PO Q8 PRN 12/01/18 12/01/18 History aspirin [Aspir-81] 81 mg PO DAILY 12/01/18 12/01/18 History bisacodyl [Dulcolax (bisacodyl)] 10 mg OK UD PRN 12/01/18 12/01/18 History cholecalciferol (vitamin D3) 2,000 unit PO DAILY 12/01/18 12/01/18 History [Vitamin D3] clopidogrel [Plavix] 75 mg PO DAILY 12/01/18 12/01/18 History cyanocobalamin (vitamin B-12) 1,000 mcg PO DAILY 12/01/18 12/01/18 History [Vitamin B-12] divalproex 250 mg PO Q12 12/01/18 12/01/18 History famotidine 40 mg PO DAILY 12/01/18 12/01/18 History finasteride 5 mg PO DAILY 12/01/18 12/01/18 History haloperidol lactate [Haldol] 1 mg IM Q6 PRN 12/01/18 12/01/18 History heparin (porcine) 5,000 unit SUBCUT TID 12/01/18 12/01/18 History insulin lispro [Humalog U-100 1 sliding scale dose SUBCUT 12/01/18 12/01/18 History Insulin] USEASDIRECTD magnesium oxide 400 mg PO DAILY 12/01/18 12/01/18 History metoprolol succinate [Toprol XL] 50 mg PO DAILY 12/01/18 12/01/18 History nut.tx.gluc.intol,lac-free,soy 300 ea FEEDING TUBE UD 12/01/18 12/01/18 History [Glucerna 1.5 Terrell] nut.tx.gluc.intol,lac-free,soy 300 ea FEEDING TUBE UD 12/01/18 12/01/18 History [Glucerna 1.5 Terrell] oxycodone 5 mg PO Q4 PRN 12/01/18 12/01/18 History polyethylene glycol 3350 [Miralax] 17 g PO Q6 12/01/18 12/01/18 History risperidone [Risperdal] 0.5 mg PO TID 12/01/18 12/01/18 History tamsulosin 0.4 mg PO DAILY 12/01/18 12/01/18 History Patient History Medical History Vitamin D deficiency (Acute) Urinary stream splitting (Acute) Urinary incontinence (Acute) Uncontrolled type 2 diabetes mellitus with retinopathy, with long-term current use of insulin (Acute) Uncontrolled type 2 diabetes mellitus with neurologic complication, with long- term current use of insulin (Acute) Thyroid disorder (Acute) Spinal stenosis (Acute) Sleep-wake schedule disorder, delayed phase type (Acute) Restless legs syndrome (Acute) Pyuria (Acute) Proliferative diabetic retinopathy (Acute) Obstructive sleep apnea (Acute) Obesity, Class II, BMI 35-39.9 (Acute) Nicotine dependence (Acute) Hallucinations (Acute) Exposure to influenza (Acute) Edema (Acute) Dyslipidemia (Acute) Diverticulosis (Acute) Disc degeneration, lumbar (Acute) Diabetic retinopathy (Acute) Diabetic peripheral neuropathy (Acute) Depression (Acute) Carotid artery stenosis (Acute) Cardiac defibrillator in place (Acute) CAD, multiple vessel (Acute) Benign localized hyperplasia of prostate with urinary obstruction (Acute) Arteriosclerotic coronary artery disease (Acute) Anxiety (Acute) Anemia (Acute) Alteration in tactile sense (Acute) Abscess in epidural space of lumbar spine (Acute) Acute UTI (urinary tract infection) Difficult airway for intubation COLLECTIONS MANAGER 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 Admitted [facility] 10/18/11 for onset of incapacitating cervical myelopathy. Spinal tap showed COLLECTIONS MANAGER Lyme disease, MRI showed severe spinal cord compression at C3-4 with myelomalacia and intramedullary mass. Pt had c-spine surgery, subsequent prolonged hospital admission, complicated post-op course. Difficult intubation Sudden cardiac Post-op 2011 [facility]. Now has ICD. Sleep apnea PT NOT CURRENTLY CPAP 2/2 recurrent sinus infections. WILL SEE SLEEP MED ELLIOTT/DR. ARCHULETA LATE 2017 Diabetes mellitus, type 2 IDDM. Degenerative disc disease Chronic back pain CHRONIC PAIN IN LEFT LEG Ischemic cardiomyopathy EF WNL 11/2017 CAD (coronary artery disease) s/p triple CABG 2003 Full dentures (Acute) Obese (Acute) Heart disease (Acute) HTN (hypertension) (Acute) High cholesterol (Acute) Coagulase-negative staphylococcal infection ICD (implantable cardioverter-defibrillator) in place Paraspinal abscess Surgical History History of esophagogastroduodenoscopy (EGD) History of colonoscopy History of cardiac cath 2011 AT [facility] - UNSURE IF HE HAS STENTS. History of tracheostomy Hx of transurethral resection of prostate History of cataract extraction with lens replacement Hx of tonsillectomy (Acute) H/O cervical spine surgery (Acute) ACDI C3-4, C7 corpectomy, removal of C7 intramedullary mass. History of lumbar spinal fusion (Acute) S/P triple vessel bypass (Acute) [facility] History of incision and drainage Lumbar spine on 08/11; complicated by difficult intubation with only #6.5 ETT able to be placed and patient kept intubated post op History of lumbar surgery 09/10/18 Glidescope 3 okay visualization but difficulty passing ETT, unable to pass 8.0, able to pass 7.0 with some difficulty Family History Mother , age 68 of COPD and respiratory issues COPD (chronic obstructive pulmonary disease) Father , in his 40s of an [place] Myocardial infarction Other Diabetes Hypertension No pertinent family history Social History Preferred Language: Armenian Communication Ability: Effective Visual Impairment: No Limitations Hearing Ability: Normal 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: No Beliefs That Will Affect Care: None marital status: Current Living Situation: Residential Current Living Situation Comment: temporarily living at [facility] 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al status: retired and disabled 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: 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 [employer] Other Information That Helps Us Care for You: No Feels Safe at Home: Declines to Answer Smoking Status: Former smoker Tobacco Type: smokeless tobacco Second Hand Exposure: No Hx Alcohol Use: No Hx Substance Use: No Review of Systems Constitutional: + weakness; no fever, no body aches and no fatigue Respiratory: no cough and no dyspnea Cardiovascular: no chest pain, no syncope and no edema Gastrointestinal: + bloating and + fecal incontinence (small amts) Psychiatric: confusion, some aggitation Physical Exam Constitutional: + ill appearing and + obese Eyes: PERRL, conjunctivae normal, anicteric sclerae ENMT: external ear and nose normal, oropharynx normal Neck: trachea midline, no thyromegaly Respiratory: normal respiratory effort, lungs clear to auscultation Cardiovascular: RRR, no murmur, no edema Gastrointestinal (Abdomen): abdomen moderately distended but soft, no complaint of pain with palpation, no palpable masses. Rectal exam: soft brown stool, no impaction Skin: no rashes, warm and dry Neurologic: confusion but no focal neuro defects Psychiatric: A+Ox3, euthymic affect Results & Data Vital Signs (Past 12 Hours) Vital Signs Temp Pulse Pulse Resp BP BP Pulse Ox 12/09/18 15:58 36.3 C L 63 18 103/63 97 12/09/18 10:32 36.2 C L 61 20 103/59 L 95 12/09/18 07:43 36.4 C L 70 16 118/63 96 Diagnostic Findings Non contrast CT 12/01/18 1. Bilateral pleural effusions mildly increased in volume from the prior study. 2. Moderate cardiomegaly. 3. No acute process specifically of the abdomen or pelvis. Abd x-ray eneralized nonobstructive ileus slightly progressive from the prior exam.
[2018-12-09] MEDS ORDERED: BISACODYL 5 MG TABEC PO ONE (17:58)
[2018-12-09] MEDS ORDERED: BISACODYL 5 MG TABEC PO SCH (17:58)
[2018-12-09] MEDS: METHYLNALTREXONE BROMIDE 12 MG/0.6 ML VIAL SQ SCH (20:29)
[2018-12-09] MEDS: POLYETHYLENE (MIRALAX) 17 GM PACK PO SCH (21:15)
--- NOTE | 2018-12-09 22:08 | Hospitalist Progress Note ---
Date of Service December 09, 2018 Assessment & Plan (1) Ileus: Ileus seen on KUB on 12/04 (reviewed images myself). Had emesis of his overnight tube feeds on 12/04. (PEG inserted at [facility] for better nutrition about 1 month ago.) - Further emesis on 12/05, though still having bowel movements. RN also suctioned out at least 500 mL of further tube feeds from his PEG. - Held tube feeds over night of 12/05-12/06 - KUB on 12/06 (by my review) looks improved. Will stop suction and allow him to start taking in minimal fluids. Will restart trickle tube feeds tonight if no emesis. - Advanced diet to full liquids with a boost on 12/07. - Held overnight tube feeds for now as he seems to have a better appetite and may be able to cover his calorie needs with normal eating. - Will need to follow up with gen surg for PEG removal in 2-3 months if he continues to improve. Will place patient on soft mechanical diet in AM Await input from GI. (2) Altered mental status: Patient was having periods of confusion, hallucinations, and general shou ting as well. EEG on 12/03 was negative for seizures. Due to risperidone. This was tapered and stopped on 12/06 with great improvement in his mental status. - Neurology has been following - MRI not an option due to his pacemaker (we checked, and it is not compatible) - As of 12/09, I think he is about the best we can get him. He is alert, responsive, recognizes visitors. AAOx2 (self & location). Can follow up with Dr. Mims as outpatient. - Of note, he shouts a lot in the mornings, but seems to clear on his own by late morning. -Will hold pain medicine. D/W nursing will try to limit tramadol. (3) Anemia: Hgb was 7.4 on presentation. Heme-negative in the ED. Received 2 units PRBCs on 12/01 with an appropriate increase in hgb to 9.5. - By 12/03, hgb had spontaneously risen to 11.2. B12 & folate both good (>2000 and 13.0). Iron studies show low iron, transferrin, and TIBC. With caveat that he'd already received blood, this would indicate iron deficiency/anemia of chronic disease. - Monitor hgb - was 10.2 on 12/07 - Has been stable at 10-11 since getting his blood. (4) PAULA (acute kidney injury): Creatinine 2.04 upon admission. Most recent creatinine on 10/22/2018 was 1.29. - Suspect is more of a prerenal - Received 2L IV fluids in the ED, then was on 80 mL/hr rate on admission; stopped after about 48 hours due to his known cardiomyopathy. - Monitor Cr - 1.2 (5) Non-ST elevated myocardial infarction (non-STEMI): Troponin was 7.31 upon admission, then 7.37. Then down to 2.7 on 12/03. Had 2 prior MIs in 07/2018 and 10/2018. Seen by cardiology who feel this is likely demand ischemia. - Keep hemoglobin > 9 - Continue medical management - No plan for intervention at this time. (6) Depression: History of depression. I believe he was on the valproic acid for mood stabilization and not for seizures. - Continue divalproex - Tapered risperidone to QHS on 12/05 - Stopped on 12/06 per neurology recs - Haloperidol IM as needed - Have asked the nurse only to give in the setting of patient or staff safety. (7) Ischemic cardiomyopathy: Ischemic cardiomyopathy with EF 25-30% on echo on 12/02. - Continue medical management - Monitor volume status (8) Diabetes mellitus, type 2: A1c was 5.6% in 10/2018. In prior admissions, he has not needed any long- acting, just sliding scale. - Sliding scale insulin - Glycemic pharmacist consult (9) Abscess in epidural space of lumbar spine: CT of lumbar spine on 12/01 indicate no persistent abscess. Treatment upon discharge completed from last hospitalization: daptomycin IV, ceftriaxone IV, and caspofungin IV. - Hold any antibiotic or antifungal therapy (10) BPH (benign prostatic hyperplasia): Did not report LUTS, but got a Rojas at some point in the hospitalization. - Continue tamsulosin and finasteride. - Remove Rojas - Consider bladder scan as needed (11) Obstructive sleep apnea: If significant sleep apnea, will prescribe CPAP. (12) DVT prophylaxis: Lovenox 40mg daily - Monitor renal function Spent 35 minutes in management of patient. Subjective Patient continues to be shouting. He does not provide significant medical history. Is in a room with a one to one. Review of Systems Review of Systems: Unobtainable due to mental health condition Physical Exam Physical Exam: Constitutional: WD/WN, vitals as above Eyes: EOM intact bilaterally; no conjunctival abnormality ENMT: external ear and nose normal, oropharynx normal Neck: trachea midline, no thyromegaly normal visual inspection Respiratory: normal respiratory effort, lungs clear to auscultation no respiratory distress Cardiovascular: RRR, no murmur, no edema Gastrointestinal (Abdomen): Inspection/Auscultation: abdomen normal to inspection and + abdominal surgical incision (PEG tube site without erythema or discharge); abdomen not distended Musculoskeletal: no cyanosis or clubbing, extremities motor strength 5/5 Skin: no rashes, warm and dry Neurologic: moves all extremities and awake Psychiatric: Orientation: alert, oriented to person and cooperative Results & Data Vital Signs (Past 12 Hours) Vital Signs Temp Pulse Pulse Resp BP BP Pulse Ox 12/09/18 15:58 36.3 C L 63 18 103/63 97 12/09/18 10:32 36.2 C L 61 20 103/59 L 95 PG Care Time/CCT Total # of Minutes Spent Total Time Spent with Patient: Total time spent is greater than 50% in coordination of care (as documented) at patient's floor/unit and/or counseling patient: (1) Anemia Anemia type: unspecified type Qualified Code(s): D64.9 - Anemia, unspecified (2) Altered mental status Altered mental status type: unspecified Qualified Code(s): R41.82 - Altered mental status, unspecified
[2018-12-10] MEDS: INSULIN ASPART 100 UNITS/ML 3 ML PEN SC SCH ×5 (08:00→20:31)
[2018-12-10] MEDS: TAMSULOSIN HCL 0.4 MG CAP PO SCH (08:01)
[2018-12-10] MEDS: POLYETHYLENE (MIRALAX) 17 GM PACK PO SCH ×3 (08:01→20:31)
[2018-12-10] MEDS: FINASTERIDE 5 MG TAB PO SCH (08:01)
[2018-12-10] MEDS: METOPROLOL SUCC 50MG EXT REL TAB PO SCH (08:01)
[2018-12-10] MEDS: ATORVASTATIN 40 MG TAB PO SCH (08:01)
[2018-12-10] MEDS: ASPIRIN 81 MG ECTAB PO SCH (08:01)
[2018-12-10] MEDS: FAMOTIDINE 20 MG TAB PO SCH (08:01)
[2018-12-10] MEDS: CLOPIDOGREL BISULFATE 75 MG TAB PO SCH (08:01)
[2018-12-10] MEDS: VALPROIC ACID SOLN 250 MG/5 ML UDC PO SCH ×2 (08:02→20:31)
[2018-12-10] MEDS: TRAMADOL HCL 50 MG TABLET PO PRN (10:08)
[2018-12-10] MEDS: ENOXAPARIN INJ 40 MG/0.4 ML SYR SQ SCH (10:18)
[2018-12-10 10:54] LABS: Hematocrit (blood only) 31.8 % (42-52); Hemoglobin 10.4 g/dL (14.0-18.0); Mean Corpuscular Hgb Conc 32.7 g/dL (32-36); Mean Corpuscular Volume 90.1 fL (80-100); Mean Platelet Volume 8.8 fL (7.4-10.4); Platelet Count 173 K/uL (130-400); Red Blood Count 3.53 M/uL (4.7-6.1); White Blood Count 6.19 K/uL (4.8-10.8)
[2018-12-10 11:03] LABS: INR 1.1 (0.9-1.1); Prothrombin Time 11.2 Seconds (9.0-12.0)
[2018-12-10 11:18] LABS: Creatinine Clr Calc Pharmacy 73.1 ml/min; Est GFR (African American) 86.9
--- NOTE | 2018-12-10 23:38 | Hospitalist Progress Note ---
Date of Service December 10, 2018 Assessment & Plan (1) Ileus: Ileus seen on KUB on 12/04 (reviewed images myself). Had emesis of his overnight tube feeds on 12/04. (PEG inserted at [facility] for better nutrition about 1 month ago.) - Further emesis on 12/05, though still having bowel movements. RN also suctioned out at least 500 mL of further tube feeds from his PEG. - Held tube feeds over night of 12/05-12/06 - KUB on 12/06 (by my review) looks improved. Will stop suction and allow him to start taking in minimal fluids. Will restart trickle tube feeds tonight if no emesis. - Advanced diet to full liquids with a boost on 12/07. - Held overnight tube feeds for now as he seems to have a better appetite and may be able to cover his calorie needs with normal eating. - Will need to follow up with gen surg for PEG removal in 2-3 months if he continues to improve. - Will place patient on soft mechanical diet in AM -Constipation improved with relistor. (2) Altered mental status: Patient was having periods of confusion, hallucinations, and general shouting as well. EEG on 12/03 was negative for seizures. Due to risperidone. This was tapered and stopped on 12/06 with great improvement in his mental status. - Neurology has been following - MRI not an option due to his pacemaker (we checked, and it is not compatible) - As of 12/09, I think he is about the best we can get him. He is alert, responsive, recognizes visitors. AAOx2 (self & location). Can follow up with Dr. Mims as outpatient. - Of note, he shouts a lot in the mornings, but seems to clear on his own by late morning. will hold tramadol. Patient will only be on tylenol and lidcoaine patch going forward. Will assess if this improves his confusion.. (3) Anemia: Hgb was 7.4 on presentation. Heme-negative in the ED. Received 2 units PRBCs on 12/01 with an appropriate increase in hgb to 9.5. - By 12/03, hgb had spontaneously risen to 11.2. B12 & folate both good (>2000 and 13.0). Iron studies show low iron, transferrin, and TIBC. With caveat that he'd already received blood, this would indicate iron deficiency/anemia of chronic disease. - Monitor hgb - was 10.2 on 12/07 - Has been stable at 10-11 since getting his blood. (4) PAULA (acute kidney injury): Creatinine 2.04 upon admission. Most recent creatinine on 10/22/2018 was 1.29. - Suspect is more of a prerenal - Received 2L IV fluids in the ED, then was on 80 mL/hr rate on admission; stopped after about 48 hours due to his known cardiomyopathy. - Monitor Cr - 1.2 (5) Non-ST elevated myocardial infarction (non-STEMI): Troponin was 7.31 upon admission, then 7.37. Then down to 2.7 on 12/03. Had 2 prior MIs in 07/2018 and 10/2018. Seen by cardiology who feel this is likely demand ischemia. - Keep hemoglobin > 9 - Continue medical management - No plan for intervention at this time. (6) Depression: History of depression. I believe he was on the valproic acid for mood stabilization and not for seizures. - Continue divalproex - Tapered risperidone to QHS on 12/05 - Stopped on 12/06 per neurology recs - Haloperidol IM as needed - Have asked the nurse only to give in the setting of patient or staff safety. (7) Ischemic cardiomyopathy: Ischemic cardiomyopathy with EF 25-30% on echo on 12/02. - Continue medical management - Monitor volume status (8) Diabetes mellitus, type 2: A1c was 5.6% in 10/2018. In prior admissions, he has not needed any long- acting, just sliding scale. - Sliding scale insulin - Glycemic pharmacist consult (9) Abscess in epidural space of lumbar spine: CT of lumbar spine on 12/01 indicate no persistent abscess. Treatment upon discharge completed from last hospitalization: daptomycin IV, ceftriaxone IV, and caspofungin IV. - Hold any antibiotic or antifungal therapy (10) BPH (benign prostatic hyperplasia): Did not report LUTS, but got a Rojas at some point in the hospitalization. - Continue tamsulosin and finasteride. - Remove Rojas - Consider bladder scan as needed (11) Obstructive sleep apnea: If significant sleep apnea, will prescribe CPAP. (12) DVT prophylaxis: Lovenox 40mg daily - Monitor renal function Spent 35 minutes in management of patient. Updated his . Subjective Patient continues to be confused. He also has been shouting. He reports though that his pain is not too bad, but does not provide more details. He denies any nausea, vomiting, diarrhea. Review of Systems Review of Systems: All systems reviewed & are unremarkable except as noted in HPI & below Physical Exam Physical Exam: Constitutional: WD/WN, vitals as above Eyes: EOM intact bilaterally; no conjunctival abnormality ENMT: external ear and nose normal, oropharynx normal Neck: trachea midline, no thyromegaly normal visual inspection Respiratory: normal respiratory effort, lungs clear to auscultation no respiratory distress Cardiovascular: RRR, no murmur, no edema Gastrointestinal (Abdomen): Inspection/Auscultation: abdomen normal to inspection and + abdominal surgical incision (PEG tube site without erythema or discharge); abdomen not distended Musculoskeletal: no cyanosis or clubbing, extremities motor strength 5/5 Skin: no rashes, warm and dry Neurologic: moves all extremities and awake Psychiatric: Orientation: alert, oriented to person and cooperative Results & Data Vital Signs (Past 12 Hours) Vital Signs Temp Pulse Resp BP Pulse Ox 12/10/18 15:23 36.8 C 69 18 115/69 97 PG Care Time/CCT Total # of Minutes Spent Total Time Spent with Patient: Total time spent is greater than 50% in coordination of care (as documented) at patient's floor/unit and/or counseling patient: (1) Anemia Anemia type: unspecified type Qualified Code(s): D64.9 - Anemia, unspecified (2) Altered mental status Altered mental status type: unspecified Qualified Code(s): R41.82 - Altered mental status, unspecified
[2018-12-11] MEDS: ACETAMINOPHEN 325 MG TAB PO PRN ×4 (08:55→22:26)
[2018-12-11] MEDS: TAMSULOSIN HCL 0.4 MG CAP PO SCH (08:56)
[2018-12-11] MEDS: FINASTERIDE 5 MG TAB PO SCH (08:56)
[2018-12-11] MEDS: POLYETHYLENE (MIRALAX) 17 GM PACK PO SCH ×3 (08:56→20:41)
[2018-12-11] MEDS: FAMOTIDINE 20 MG TAB PO SCH (08:56)
[2018-12-11] MEDS: ENOXAPARIN INJ 40 MG/0.4 ML SYR SQ SCH (08:57)
[2018-12-11] MEDS: METOPROLOL SUCC 50MG EXT REL TAB PO SCH (08:57)
[2018-12-11] MEDS: CLOPIDOGREL BISULFATE 75 MG TAB PO SCH (08:57)
[2018-12-11] MEDS: ASPIRIN 81 MG ECTAB PO SCH (08:57)
[2018-12-11] MEDS: VALPROIC ACID SOLN 250 MG/5 ML UDC PO SCH ×2 (08:57→20:41)
[2018-12-11] MEDS: ATORVASTATIN 40 MG TAB PO SCH (08:57)
[2018-12-11] MEDS: INSULIN ASPART 100 UNITS/ML 3 ML PEN SC SCH ×4 (08:58→20:43)
--- NOTE | 2018-12-11 09:51 | Pharmacy Report ---
Pharmacy Glycemic Short Note 2 - Date of Service December 11, 2018 - Glycemic Short BSG Results (Last 24 hours): 12/10/18 12/10/18 12/10/18 11:33 16:42 20:09 POC Glucose 125 H 117 H 170 H 12/11/18 07:23 POC Glucose 115 H OUTPATIENT ANTIDIABETIC REGIMEN: * Novolog per sliding scale * A1c = 5.6% 10/12/18 ASSESSMENT: 12/11 * Blood sugars at goal, patient requiring 7-11 units/day, on daily chocolate boost. 12/07 * Mr. Cooper rec'd 6 units of insulin yesterday (bolus insulin only), with BSGs ranging from 81-195 mg/dL in the past 24 hours * Tube feeds remain on hold. His diet has been advanced and seems to be tolerating okay. Per discussion with the nurse, provider had noted that tube feeds would unlikely be resumed. Once daily Boost has been added. 12/06 * Tube feeds remain on hold; therefore, NPH remains on hold * BSGs have ranged from 76-137 mg/dL in the past 24 hours * Patient only received 4 units of insulin yesterday * Provider's note indicates that trickle tube feeds may be resumed tonight. If this is the case, expect patient to only need a few units of NPH to cover them. Unsure if patient will be able to tolerate tube feeds, so will plan to order overnight coverage with Novolog instead and have carbs covered this way. 12/05 * Pt vomited last night, new concerns for ileus at this time * Tube feeds will likely be held as a result. Will place NPH on hold until tube feeds are resumed. * Glycemic control was quite good despite these events. I do believe he will require ~1 unit NPH per ~5-6grams of CHOs delivered in tube feeds when delivered continuously over 12 hours. * Will continue Novolog CF and CR alone at this time as this has produced good results when tube feeds not in use 12/04 * BSG at goal the second half of the day yesterday and remain at goal this AM * NPH appears to be covering the carbs in tube feeds well. There were 6 units of Novolog correction given during the time the feeds were running, so there is room to increase the dose. * Spoke with dietary, the plan is to increase Peptamen 1.5 feeds to 60cc/hr tonight, thus CHO load delivered will be ~135gm over 12 hrs. New NPH dose will be based upon this new CHO load. * Novolog CF and CR performed well when used - therefore no changes 12/03 * Type 2 diabetic admitted for NSTEMI, encephalopathy, and PAULA * He has been followed by the Glycemic Control Service on prior hospitalizations. In the past he has required little to no basal insulin during hospitalization (0-5 units of basal per day). * Novolog correctional and prandial insulin initiated mid-day yesterday which did lead to improved BSG pre-dinner however continuous nocturnal tube feeds were initiated without coverage of carbs in tube feeds. This led to BSGs climbing into the 270s. It will be challenging to adequately control BSGs with 12hr nocturnal feedings. Will trial use of NPH at the beginning of tube feeds to cover carbs provided in Peptamen 1.5 (~90grams CHO's over the course of 12 hours). Will also add Novolog checks at 0000 + 0400 tonight should the NPH not adequately cover these feeds. * He continues to have a diet ordered and nocturnal feeds are to supplement his PO intake as he has not been taking in adequate calories and has been loosing weight. Dietary may titrate feeds upwards over the next day or two if PO intake remains poor. PLAN FOR INPATIENT GLYCEMIC CONTROL: * Continuing correction factor to 25 mg/dl/unit * Continuing carb ratio of 1 unit per 8 grams CHO consumed * Continuing goal range of Low 110 mg/dL - High 140 mg/dL PLAN FOR DISCHARGE: * If patient will not be discharged on tube feeds, recommend to resume outpatient regimen of Novolog per sliding scale on discharge
[2018-12-11] MEDS: LIDOCAINE 5% 1 PATCH TD SCH (11:36)
[2018-12-11] MEDS: METHYLNALTREXONE BROMIDE 12 MG/0.6 ML VIAL SQ SCH (17:28)
--- NOTE | 2018-12-11 23:16 | Hospitalist Progress Note ---
Date of Service December 11, 2018 Assessment & Plan (1) Ileus: Ileus seen on KUB on 12/04 (reviewed images myself). Had emesis of his overnight tube feeds on 12/04. (PEG inserted at [facility] for better nutrition about 1 month ago.) - Further emesis on 12/05, though still having bowel movements. RN also suctioned out at least 500 mL of further tube feeds from his PEG. - Held tube feeds over night of 12/05-12/06 - KUB on 12/06 (by my review) looks improved. Will stop suction and allow him to start taking in minimal fluids. Will restart trickle tube feeds tonight if no emesis. - Advanced diet to full liquids with a boost on 12/07. - Held overnight tube feeds for now as he seems to have a better appetite and may be able to cover his calorie needs with normal eating. - Will need to follow up with gen surg for PEG removal in 2-3 months if he continues to improve. - Restarted mechanical soft diet. -Constipation improved with relistor. (2) Altered mental status: Patient was having periods of confusion, hallucinations, and general sh outing as well. EEG on 12/03 was negative for seizures. Due to risperidone. This was tapered and stopped on 12/06 with great improvement in his mental status. - Neurology has been following - MRI not an option due to his pacemaker (we checked, and it is not compatible) - As of 12/11, I think he is about the best we can get him. He is alert, responsive, recognizes visitors. AAOx2 (self & location). Can follow up with Dr. Mims as outpatient. - Of note, he shouts a lot in the mornings, but seems to clear on his own by late morning. will hold tramadol. Patient will only be on tylenol and lidocaine patch going forward. Patient's confusion has been improving, but his pain has not. (3) Anemia: Hgb was 7.4 on presentation. Heme-negative in the ED. Received 2 units PRBCs on 12/01 with an appropriate increase in hgb to 9.5. - By 12/03, hgb had spontaneously risen to 11.2. B12 & folate both good (>2000 and 13.0). Iron studies show low iron, transferrin, and TIBC. With caveat that he'd already received blood, this would indicate iron deficiency/anemia of chronic disease. - Monitor hgb - was 10.2 on 12/07 - Has been stable at 10-11 since getting his blood. (4) PAULA (acute kidney injury): Creatinine 2.04 upon admission. Most recent creatinine on 10/22/2018 was 1.29. - Suspect is more of a prerenal - Received 2L IV fluids in the ED, then was on 80 mL/hr rate on admission; stopped after about 48 hours due to his known cardiomyopathy. - Monitor Cr - 1.2 (5) Non-ST elevated myocardial infarction (non-STEMI): Troponin was 7.31 upon admission, then 7.37. Then down to 2.7 on 12/03. Had 2 prior MIs in 07/2018 and 10/2018. Seen by cardiology who feel this is likely demand ischemia. - Keep hemoglobin > 9 - Continue medical management - No plan for intervention at this time. (6) Depression: History of depression. I believe he was on the valproic acid for mood stabilization and not for seizures. - Continue divalproex - Tapered risperidone to QHS on 12/05 - Stopped on 12/06 per neurology recs - Haloperidol IM as needed - Have asked the nurse only to give in the setting of patient or staff safety. (7) Ischemic cardiomyopathy: Ischemic cardiomyopathy with EF 25-30% on echo on 12/02. - Continue medical management - Monitor volume status (8) Diabetes mellitus, type 2: A1c was 5.6% in 10/2018. In prior admissions, he has not needed any long- acting, just sliding scale. - Sliding scale insulin - Glycemic pharmacist consult (9) Abscess in epidural space of lumbar spine: CT of lumbar spine on 12/01 indicate no persistent abscess. Treatment upon discharge completed from last hospitalization: daptomycin IV, ceftriaxone IV, and caspofungin IV. - Hold any antibiotic or antifungal therapy (10) BPH (benign prostatic hyperplasia): Did not report LUTS, but got a Rojas at some point in the hospitalization. - Continue tamsulosin and finasteride. - Remove Rojas - Consider bladder scan as needed (11) Obstructive sleep apnea: If significant sleep apnea, will prescribe CPAP. (12) DVT prophylaxis: Lovenox 40mg daily - Monitor renal function (13) Chronic back pain: Patient has lumbar spinal stenosis. Patient also has compression fracture of thoracic spine as per problems list. Will continue with lidociane patch. May consider pain management for assistance. Spent 35 minutes in management of patient. Updated his . Subjective Patient appears more calm today. Patient main issue is that he is having pain. But he has nt required any amount of tramadol today. His is at bedside, she was updated. Review of Systems Review of Systems: The patient with help supplemented by , denies chest pain, palpitations, cough, lower extremity swelling, sore throat, fevers, chills, sweats, nausea, vomiting, diarrhea , constipation, abdominal pain, pelvic pain, blood in urine or stool, dysuria, urinary frequency or urgency, loss of consciousness, focal weakness, numbness or tingling in arms or legs, back or neck pain, or night sweats. The review of systems is otherwise negative other than for that already noted above, and at least 10 systems have been reviewed. Physical Exam Physical Exam: Constitutional: WD/WN, vitals as above Eyes: EOM intact bilaterally; no conjunctival abnormality ENMT: external ear and nose normal, oropharynx normal Neck: trachea midline, no thyromegaly normal visual inspection Respiratory: normal respiratory effort, lungs clear to auscultation no respiratory distress Cardiovascular: RRR, no murmur, no edema Gastrointestinal (Abdomen): Inspection/Auscultation: abdomen normal to inspection and + abdominal surgical incision (PEG tube site without erythema or discharge); abdomen not distended Musculoskeletal: no cyanosis or clubbing, extremities motor strength 5/5 Skin: no rashes, warm and dry Neurologic: moves all extremities and awake Psychiatric: Orientation: alert, oriented to person and cooperative Results & Data Vital Signs (Past 12 Hours) Vital Signs Temp Pulse Resp BP Pulse Ox 12/11/18 14:52 36.4 C L 63 16 107/65 100 PG Care Time/CCT Total # of Minutes Spent Total Time Spent with Patient: Total time spent is greater than 50% in coordination of care (as documented) at patient's floor/unit and/or counseling patient: (1) Anemia Anemia type: unspecified type Qualified Code(s): D64.9 - Anemia, unspecified (2) Altered mental status Altered mental status type: unspecified Qualified Code(s): R41.82 - Altered mental status, unspecified
[2018-12-12] MEDS: HALOPERIDOL LACTATE 5 MG/ML 1 ML VIAL IM PRN ×2 (01:03→07:38)
[2018-12-12] MEDS: ACETAMINOPHEN 325 MG TAB PO PRN ×4 (02:58→23:22)
[2018-12-12] MEDS: POLYETHYLENE (MIRALAX) 17 GM PACK PO SCH ×3 (07:47→20:24)
[2018-12-12] MEDS: LIDOCAINE 5% 1 PATCH TD SCH (07:49)
[2018-12-12] MEDS: ATORVASTATIN 40 MG TAB PO SCH (07:51)
[2018-12-12] MEDS: ASPIRIN 81 MG ECTAB PO SCH (07:51)
[2018-12-12] MEDS: TAMSULOSIN HCL 0.4 MG CAP PO SCH (07:51)
[2018-12-12] MEDS: FAMOTIDINE 20 MG TAB PO SCH (07:52)
[2018-12-12] MEDS: CLOPIDOGREL BISULFATE 75 MG TAB PO SCH (07:52)
[2018-12-12] MEDS: FINASTERIDE 5 MG TAB PO SCH (07:53)
[2018-12-12] MEDS: METOPROLOL SUCC 50MG EXT REL TAB PO SCH (07:53)
[2018-12-12] MEDS: ENOXAPARIN INJ 40 MG/0.4 ML SYR SQ SCH (07:56)
[2018-12-12] MEDS: INSULIN ASPART 100 UNITS/ML 3 ML PEN SC SCH ×4 (07:58→21:25)
[2018-12-12] MEDS: VALPROIC ACID SOLN 250 MG/5 ML UDC PO SCH ×2 (07:58→21:27)
[2018-12-12] MEDS ORDERED: LIDOCAINE 5% 1 PATCH TD SCH (09:00)
[2018-12-12] MEDS ORDERED: TRAMADOL HCL 50 MG TABLET PO STA (09:32)
--- NOTE | 2018-12-12 09:43 | Hospitalist Progress Note ---
Date of Service December 12, 2018 Assessment & Plan (1) Ileus: Ileus seen on KUB on 12/04 (reviewed images myself). Had emesis of his overnight tube feeds on 12/04. (PEG inserted at [facility] for better nutrition about 1 month ago.) - Further emesis on 12/05, though still having bowel movements. RN also suctioned out at least 500 mL of further tube feeds from his PEG. - Held tube feeds over night of 12/05-12/06 - KUB on 12/06 (by my review) looks improved. Will stop suction and allow him to start taking in minimal fluids. Will restart trickle tube feeds tonight if no emesis. - Advanced diet to full liquids with a boost on 12/07. - Held overnight tube feeds for now as he seems to have a better appetite and may be able to cover his calorie needs with normal eating. - Will need to follow up with gen surg for PEG removal in 2-3 months if he continues to improve. - Restarted mechanical soft diet. -Constipation improved with relistor. Will try to limitr tramadol. (2) Altered mental status: Patient was having periods of confusion, hallucinations, and general shouting as well. EEG on 12/03 was negative for seizures. Due to risperidone. This was tapered and stopped on 12/06 with great improvement in his mental status. - Neurology has been following - MRI not an option due to his pacemaker (we checked, and it is not compatible) Can follow up with Dr. Mims as outpatient. will hold tramadol as this appears to also be casuing him to be hallucinating. Patient will only be on tylenol and lidocaine patch going forward. Patient's confusion has been improving, but his pain has not. Patient is more coherent on 12/12. No longer hallucinating since 12/11. Pain management is an issue however, though he is no longer hallucinating, he is agitated due to pain (and possibly being hospitalized). Will consult pain management for alternative treatment as patient has causes for back pain: lumbar spinal stenosis. (3) Anemia: Hgb was 7.4 on presentation. Heme-negative in the ED. Received 2 units PRBCs on 12/01 with an appropriate increase in hgb to 9.5. - By 12/03, hgb had spontaneously risen to 11.2. B12 & folate both good (>2000 and 13.0). Iron studies show low iron, transferrin, and TIBC. With caveat that he'd already received blood, this would indicate iron deficiency/anemia of chronic disease. - Monitor hgb - was 10.2 on 12/07 - Has been stable at 10-11 since getting his blood. (4) PAULA (acute kidney injury): Creatinine 2.04 upon admission. Most recent creatinine on 10/22/2018 was 1.29. - Suspect is more of a prerenal - Received 2L IV fluids in the ED, then was on 80 mL/hr rate on admission; stopped after about 48 hours due to his known cardiomyopathy. - Monitor Cr - 1.2 (5) Non-ST elevated myocardial infarction (non-STEMI): Troponin was 7.31 upon admission, then 7.37. Then down to 2.7 on 12/03. Had 2 prior MIs in 07/2018 and 10/2018. Seen by cardiology who feel this is likely demand ischemia. - Keep hemoglobin > 9 - Continue medical management - No plan for intervention at this time. (6) Depression: History of depression. I believe he was on the valproic acid for mood stabilization and not for seizures. - Continue divalproex - Tapered risperidone to QHS on 12/05 - Stopped on 12/06 per neurology recs - Haloperidol IM as needed - Have asked the nurse only to give in the setting of patient or staff safety. (7) Ischemic cardiomyopathy: Ischemic cardiomyopathy with EF 25-30% on echo on 12/02. - Continue medical management - Monitor volume status (8) Diabetes mellitus, type 2: A1c was 5.6% in 10/2018. In prior admissions, he has not needed any long- acting, just sliding scale. - Sliding scale insulin - Glycemic pharmacist consult (9) Abscess in epidural space of lumbar spine: CT of lumbar spine on 12/01 indicate no persistent abscess. Treatment upon discharge completed from last hospitalization: daptomycin IV, ceftriaxone IV, and caspofungin IV. - Hold any antibiotic or antifungal therapy (10) BPH (benign prostatic hyperplasia): Did not report LUTS, but got a Rojas at some point in the hospitalization. - Continue tamsulosin and finasteride. - Remove Rojas - Consider bladder scan as needed (11) Obstructive sleep apnea: If significant sleep apnea, will prescribe CPAP. (12) DVT prophylaxis: Lovenox 40mg daily - Monitor renal function (13) Chronic back pain: Patient has lumbar spinal stenosis. Patient also has compression fracture of thoracic spine as per problems list. Will place second lidocaine patch. Will give on dose of tramadol. May consider pain management for assistance. Spent 35 minutes in management of patient. Updated his . Subjective 67 yo male is complaining of signifcant back pain today. He has been shouting in his room (which has been the norm throughout his hospital stay), but no longer hallucinating. He calms once someone is in the room. He is also having regular conversations once someone is in the room. He states how he is frustrated with being in the room and wants to know when he can return to his facility. It appears bed is not available until Saturday. Offered patient to go to [facility]. Patient is complaining of back pain is in his lower back and thoracic back. As per nurse, he is no longer hallucinating. As is more coherent. Review of Systems Review of Systems: All systems reviewed & are unremarkable except as noted in HPI & below Physical Exam Physical Exam: Constitutional: WD/WN, vitals as above Eyes: EOM intact bilaterally; no conjunctival abnormality ENMT: external ear and nose normal, oropharynx normal Neck: trachea midline, no thyromegaly normal visual inspection Respiratory: normal respiratory effort, lungs clear to auscultation no respiratory distress Cardiovascular: RRR, no murmur, no edema Gastrointestinal (Abdomen): Inspection/Auscultation: abdomen normal to inspection and + abdominal surgical incision (PEG tube site without erythema or discharge); abdomen not distended Musculoskeletal: no cyanosis or clubbing, extremities motor strength 5/5 Skin: no rashes, warm and dry Neurologic: moves all extremities and awake Psychiatric: Orientation: alert, oriented to person and cooperative Results & Data Vital Signs (Past 12 Hours) Vital Signs Temp Pulse Resp BP BP Pulse Ox 12/12/18 07:11 36.9 C 78 16 127/75 100 12/12/18 03:45 36.5 C 67 16 106/68 98 12/12/18 00:17 36.5 C 70 20 117/74 99 PG Care Time/CCT Total # of Minutes Spent Total Time Spent with Patient: Total time spent is greater than 50% in coordination of care (as documented) at patient's floor/unit and/or counseling patient: (1) Altered mental status Altered mental status type: unspecified Qualified Code(s): R41.82 - Altered mental status, unspecified (2) Anemia Anemia type: unspecified type Qualified Code(s): D64.9 - Anemia, unspecified
[2018-12-12] MEDS ORDERED: OLANZAPINE 2.5 MG TAB PO STA (11:04)
--- NOTE | 2018-12-12 13:47 | Psychiatric Consultation ---
Date of Consultation December 12, 2018 Impression / Recommendations Impression 67-year-old male admitted medically on 12/01/18 due to AMS and fatigue. Several medication adjustments were made over the course of the patient's admission, and confusion is clearing. Pt's risperidone had been tapered and discontinued, in addition to several pain medications. At this time, seems possible that polypharmacy may have contributed to his presentation. Pt does present as verbally agitated, observed to be yelling for nursing rather relentlessly throughout the day. Question if this behavior is related to an underlying medical/psychiatric concern, or may be better explained by patient's boredom and desire for interaction with staff. As behavior is calmed when he is engaged and needs are met, it seems less likely to be related solely to his AMS. Pt would likely benefit from change of scenery if possible and verbalized a desire to be taken outside if possible with staffing. As polypharmacy was suggested as a contributory factor to his AMS, there is concern for adding additional antipsy chotic medications if not necessary for acute management of safety concerns. If medications are required to manage patient's behavior, could consider titration of haloperidol - as 1mg is not likely effective at targeting these concerns. Could consider 2.5 or 5mg dosing depending on level of agitation and response to the medication. May also consider if diphenhydramine may be beneficial for calm ing restlessness/agitation - also with caution as excessive use may contribute to worsening confusion. If his dose of olanzapine was found to be helpful, could also continue this medication as needed for management of behavior. Would again like to stress that these medications should be used secondary to behavioral treatment of agitation - as excessive use of these medications may further contribute to a confused state. Would suggest regularly engaging the patient, opportunities to be taken outside if primary team permits and staffing allows, and attempts to engaged the patient in independent activities. We will provide the patient with a word search book. If verbal agitation continues, and its presence is a concern for staff or other patients, could also consider if a 1:1 may be appropriate to manage behaviors. At this time, the patient is denying any active SI/HI, A/V hallucinations, or evidence of acute psychosis. He does not meet criteria for inpatient psychiatric treatment. Discharge planning per primary medical team. Plan: - Can trial increased dose of haloperidol for agitation if behavior is at risk of threatening safety of patient or staff - consider range of 2.5 - 5mg depending on severity of behavior; could also administer with diphenhydramine if agitated/restless. Would limit medication administration if not clearly necessary - especially as there is concern that polypharmacy may have contributed to his AMS on admission - Could alternative continue olanzapine 2.5mg if found to be beneficial - Recommend routine monitoring of QTc if regularly requiring antipsychotic medications - Will provide patient with word-search book, suggest other individual activities to stimulate patient's mind and attention in attempts to reduce unnecessarily requesting nursing interventions - If staffing allows and primary team is agreeable, would be beneficial for patient to be taken around the floor or even outside in order to permit a change of scenery - If patient's behavior has become a safety concern for himself, other patients, or staff; a 1:1 could be considered in order to reduce level of verbal agitation Dr. Kayden Ramirez was directly involved in review and discussion of the patient's case and participated in medical decision making regarding treatment recommendations. CPT Code Initial Consultation: 97574 Psych History Identifying Data 67-year-old male admitted medically on 12/01/18 as a transfer from [facility] due to altered mental status and fatigue, a concern that has been intermittent for several weeks. Pt was admitted for evaluation and is being treated medically for PAULA, NSTEMI, anemia, T2DM, depression, and agitation. AMS clearing over the course of his admission - specifically with taper and discontinuation of risperidone. Psychiatric consultation was requested to evaluate patient for agitation. Patient only minimally participates in interview, the majority of information is obtained from previous hospital documentation. Chief Complaint "Ok, I've been better." History of Present Illness Leandro Cooper is a 67-year-old male admitted medically on 12/01/18 due to AMS and fatigue. It was reported that the patient had been admitted to [facility] several times in the past few months for similar complaints - requiring various interventions. Pt was admitted to [facility] on 09/10/18 for surgical procedures and was discharged to [facility] on 09/16/18. He was readmitted on 09/27/18 due to confusion and pain. Pt was then transferred to a long-term care facility at [facility] on 10/22/18. He returned to [facility] following that admission on 11/26/18. He was reported to have ongoing episodes of confusion as well as two falls out of bed, along with reports of hallucinations. He was then admitted to this facility on 12/01/18 and remains on the medical floor for treatment. He had been admitted with TID dosing of risperidone 0.5mg and prn doses of haloperidol 1mg IM. Over the course of this recent admission, risperidone was tapered and eventually discontinued - believed to be contributing to improvement in mental status. Pt's confusion has reportedly improved and he had denied ongoing hallucinations. PRN haloperidol had remained available for verbal agitation, which is reportedly most prominent in the mornings. He did received one 2.5mg dose of olanzapine around 1200 today for verbal agitation. Most recent progress notes suggests improvement of confusion, seemingly more coherent, and no longer hallucinating. There was question if the agitation the patient is verbalizing is possibly related to his ongoing pain concerns and pain management consultation was requested. Previous pain medications had been tapered as well, patient is now only prescribed Tylenol and lidocaine patch - as concern the tramadol was contributing to the hallucinations. On today's assessment, the patient is heard to be yelling loudly from his room - audible in the nurse's station. He continues to scream "Nurse, come here nurse." Review of nursing notes suggests that the patient has been requesting frequent interventions, not clearly necessary. His agitation reportedly calms when staff enters the room and is able to address requests. Pt is seen today in his room, while lying in bed. He does appear to be in some discomfort, but no acute distress. He states to this provider "I've had better days". Pt states that he fell and hurt his knee, and the pain continues to bother him. He rates his knee and back pain a 6/10 both at rest and when in motion. Pt reports to this provider, "I'm bed refined, or stricken, whatever you want to call it." He states, "I feel like I'm ready to flip." When asked what this would look like, the patient is unable to give a clear description of his feelings or urges, simply stating, "like flipping out." Pt describes his mood currently as "sucky", but states prior to his hospitalization he had been doing well. Pt does reports some passive thoughts since his admission, but denies any clear SI or active desire to harm himself here in the hospital. He states he has not previously struggled with these thoughts and had never attempted to harm himself or end his life. Pt states he has not had any hallucinations for several days and feels he is less confused. He verbalizes his biggest concern at this time is "staring at these 4 rojas all day." He admits that he is bored and is interested in getting out of his room. The patient would be interested in going outside or being pushed around the floor. Pt was informed of periods of staff limitations and was informed that if his primary medical team was in agreement, he may be able to have a visitor take him outside. Pt was asked if there was anything additional that could be done to make him more comfortable. He states, "no, nothing. I want to go back to [facility]." This provider offered to have liaison bring a word search or activity book to keep his mind occupied, as he identified this as something her previously enjoyed doing. Toward this point in our conversation, the patient continuously nods off to sleep, but is able to be aroused by verbal stimuli. His willingness to continue to participate in conversation is limited, and he reports feeling tired. Pt denied other needs or concerns at this time. Allergies Allergy/AdvReac Type Severity Reaction Status Date / Time No Known Drug Allergies Allergy Unknown Unverified 12/01/18 19:27 Home Medications Home Medications Medication Instructions Recorded Confirmed Type Eternal Feed Order 60 ml PEG HS 12/01/18 12/01/18 History Flush 120 ml PEG UD 12/01/18 12/01/18 History House Shake 1 dose PO TIDM 12/01/18 12/01/18 History Prune Juice/Stewed Prunes 1 dose PO UD PRN 12/01/18 12/01/18 History acetaminophen [Tylenol] 975 mg PO Q8 PRN 12/01/18 12/01/18 History aspirin [Aspir-81] 81 mg PO DAILY 12/01/18 12/01/18 History bisacodyl [Dulcolax (bisacodyl)] 10 mg [place] UD PRN 12/01/18 12/01/18 History cholecalciferol (vitamin D3) 2,000 unit PO DAILY 12/01/18 12/01/18 History [Vitamin D3] clopidogrel [Plavix] 75 mg PO DAILY 12/01/18 12/01/18 History cyanocobalamin (vitamin B-12) 1,000 mcg PO DAILY 12/01/18 12/01/18 History [Vitamin B-12] divalproex 250 mg PO Q12 12/01/18 12/01/18 History famotidine 40 mg PO DAILY 12/01/18 12/01/18 History finasteride 5 mg PO DAILY 12/01/18 12/01/18 History haloperidol lactate [Haldol] 1 mg IM Q6 PRN 12/01/18 12/01/18 History heparin (porcine) 5,000 unit SUBCUT TID 12/01/18 12/01/18 History insulin lispro [Humalog U-100 1 sliding scale dose SUBCUT 12/01/18 12/01/18 History Insulin] USEASDIRECTD magnesium oxide 400 mg PO DAILY 12/01/18 12/01/18 History metoprolol succinate [Toprol XL] 50 mg PO DAILY 12/01/18 12/01/18 History nut.tx.gluc.intol,lac-free,soy 300 ea FEEDING TUBE UD 12/01/18 12/01/18 History [Glucerna 1.5 Terrell] nut.tx.gluc.intol,lac-free,soy 300 ea FEEDING TUBE UD 12/01/18 12/01/18 History [Glucerna 1.5 Terrell] oxycodone 5 mg PO Q4 PRN 12/01/18 12/01/18 History polyethylene glycol 3350 [Miralax] 17 g PO Q6 12/01/18 12/01/18 History risperidone [Risperdal] 0.5 mg PO TID 12/01/18 12/01/18 History tamsulosin 0.4 mg PO DAILY 12/01/18 12/01/18 History Personal History Living Arrangements: Personal Care Facility (transferred from [facility]) Marital Status: Beliefs That Will Affect Care: None Patient History Medical History Vitamin D deficiency (Acute) Urinary stream splitting (Acute) Urinary incontinence (Acute) Uncontrolled type 2 diabetes mellitus with retinopathy, with long-term current use of insulin (Acute) Uncontrolled type 2 diabetes mellitus with neurologic complication, with long- term current use of insulin (Acute) Thyroid disorder (Acute) Spinal stenosis (Acute) Sleep-wake schedule disorder, delayed phase type (Acute) Restless legs syndrome (Acute) Pyuria (Acute) Proliferative diabetic retinopathy (Acute) Obstructive sleep apnea (Acute) Obesity, Class II, BMI 35-39.9 (Acute) Nicotine dependence (Acute) Hallucinations (Acute) Exposure to influenza (Acute) Edema (Acute) Dyslipidemia (Acute) Diverticulosis (Acute) Disc degeneration, lumbar (Acute) Diabetic retinopathy (Acute) Diabetic peripheral neuropathy (Acute) Depression (Acute) Carotid artery stenosis (Acute) Cardiac defibrillator in place (Acute) CAD, multiple vessel (Acute) Benign localized hyperplasia of prostate with urinary obstruction (Acute) Arteriosclerotic coronary artery disease (Acute) Anxiety (Acute) Anemia (Acute) Alteration in tactile sense (Acute) Abscess in epidural space of lumbar spine (Acute) Acute UTI (urinary tract infection) Difficult airway for intubation [employer]ING [employer] TRA[employer] 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 Admitted [facility] 10/18/11 for onset of incapacitating cervical myelopathy. Spinal tap showed [employer] TRA[employer] Lyme disease, MRI showed severe spinal cord compression at C3-4 with myelomalacia and intramedullary mass. Pt had c-spine surgery, subsequent prolonged hospital admission, complicated post-op course. Difficult intubation Sudden cardiac Post-op 2011 [facility]. Now has ICD. Sleep apnea PT NOT CURRENTLY CPAP 2/2 recurrent sinus infections. WILL SEE SLEEP MEDICINE/DR. ARCHULETA LATE 2017 Diabetes mellitus, type 2 IDDM. Degenerative disc disease Chronic back pain CHRONIC PAIN IN LEFT LEG Ischemic cardiomyopathy EF WNL 11/2017 CAD (coronary artery disease) s/p triple CABG 2003 Full dentures (Acute) Obese (Acute) Heart disease (Acute) HTN (hypertension) (Acute) High cholesterol (Acute) Coagulase-negative staphylococcal infection ICD (implantable cardioverter-defibrillator) in place Paraspinal abscess Surgical History History of esophagogastroduodenoscopy (EGD) History of colonoscopy History of cardiac cath 2011 AT [facility] - UNSURE IF HE HAS STENTS. History of tracheostomy Hx of transurethral resection of prostate History of cataract extraction with lens replacement Hx of tonsillectomy (Acute) H/O cervical spine surgery (Acute) ACDI C3-4, C7 corpectomy, removal of C7 intramedullary mass. History of lumbar spinal fusion (Acute) S/P triple vessel bypass (Acute) [facility]2002 History of incision and drainage Lumbar spine on 08/11; complicated by difficult intubation with only #6.5 ETT able to be placed and patient kept intubated post op History of lumbar surgery 09/10/18 Glidescope 3 okay visualization but difficulty passing ETT, unable to pass 8.0, able to pass 7.0 with some difficulty Family History Mother , age 68 of COPD and respiratory issues COPD (chronic obstructive pulmonary disease) Father , in his 40s of an [place] Myocardial infarction Other Diabetes Hypertension No pertinent family history Social History Preferred Language: Syriac Communication Ability: Effective Visual Impairment: No Limitations Hearing Ability: Normal Sewing Machine Tester Required: No Beliefs That Will Affect Care: None marital status: Current Living Situation: [facility] Current Living Situation Comment: temporarily living at [facility] 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al status: retired and disabled 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: 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 Pt appears decently groomed, bald with some well-trimmed facial hair. Dressed appropriately in a hospital gown. Bilateral lower extremity amputations apparent. Level of hygiene and hydration appears adequate Eye Contact: + fair eye contact (drifting off to sleep toward end of interview) Motor Behavior: no abnormal motor movements Speech: + l oud speech (irritable tone) Affect: + irritable affect Mood: + irritable mood "I'm sucky, I feel like I'm ready to flip." Thought Process: goal directed thought process and clear/coherent thought process Thought Content: reality based without delusions Suicidal Thoughts: denies suicidal thoughts Homicidal Thoughts: denies homicidal thoughts Hallucinations: no auditory hallucinations and no visual hallucinations Cognition: attention grossly intact and language grossly intact Estimated Intelligence: consistent with education level Insight: + fair insight Judgement: + poor judgement Vital Signs (Past 24 Hours): Last Vital Signs Temp 36.9 C 12/12/18 07:11 Pulse 78 12/12/18 07:11 Resp 16 12/12/18 07:11 BP 127/75 12/12/18 07:11 Pulse Ox 100 12/12/18 07:11 Review of Systems Constitutional: reports restlessness and agitation Cardiovascular: denied Respiratory: denied Gastrointestinal: denied Neurological: reports bilateral tremor of legs, leg and back pain Psychiatric: denies symptoms other than stated above Total of at least 10 systems reviewed, pertinent positives as above and in HPI. Results & Data Medications Administered Acetaminophen (Tylenol) 650 mg PO Q4H PRN PRN Reason: Pain or Fever Stop: 12/31/18 23:20 Last Admin: 12/12/18 07:48 Dose: 650 mg Documented by: [id number] Admin: 12/12/18 02:58 Dose: 650 mg Documented by: [id number] Admin: 12/11/18 22:26 Dose: 650 mg Documented by: [id number] Admin: 12/11/18 17:28 Dose: 650 mg Documented by: [id number] Admin: 12/11/18 13:19 Dose: 650 mg Documented by: [id number] Admin: 12/11/18 08:55 Dose: 650 mg Documented by: [id number] Admin: 12/06/18 23:24 Dose: 650 mg Documented by: [id number] Hydrox/Mg Hydrox/Simethicone (Maalox) 15 ml PO Q4H PRN PRN Reason: Dyspepsia Stop: 12/31/18 23:20 Last Admin: 12/07/18 12:13 Dose: 15 ml Documented by: [id number] Admin: 12/02/18 23:36 Dose: 15 ml Documented by: [id number] Aspirin (Ecotrin Ectab) 81 mg PO DAILY KAYLYNN Stop: 01/01/19 08:59 Last Admin: 12/12/18 07:51 Dose: 81 mg Documented by: [id number] Admin: 12/11/18 08:57 Dose: 81 mg Documented by: [id number] Admin: 12/10/18 08:01 Dose: 81 mg Documented by: [id number] Admin: 12/09/18 08:01 Dose: 81 mg Documented by: [id number] Admin: 12/08/18 07:34 Dose: 81 mg Documented by: [id number] Admin: 12/07/18 08:02 Dose: 81 mg Documented by: [id number] Admin: 12/06/18 09:37 Dose: 81 mg Documented by: [id number] Admin: 12/05/18 10:20 Dose: 81 mg Documented by: [id number] Admin: 12/04/18 08:26 Dose: Not Given Documented by: [id number] Admin: 12/03/18 07:45 Dose: 81 mg Documented by: [id number] Admin: 12/02/18 09:26 Dose: 81 mg Documented by: [id number] Atorvastatin Calcium [facility]Lipitor) [facility] Stop: 01/01/19 11:29 Last Admin: 12/12/18 07:51 Dose: 40 mg Documented by: [id number] Admin: 12/11/18 08:57 Dose: 40 mg Documented by: [id number] Admin: 12/10/18 08:01 Dose: 40 mg Documented by: [id number] Admin: 12/09/18 08:02 Dose: 40 mg Documented by: [id number] Admin: 12/08/18 07:34 Dose: 40 mg Documented by: [id number] Admin: 12/07/18 08:02 Dose: 40 mg Documented by: [id number] Admin: 12/06/18 09:37 Dose: 40 mg Documented by: [id number] Admin: 12/05/18 10:20 Dose: 40 mg Documented by: [id number] Admin: 12/04/18 08:26 Dose: Not Given Documented by: [id number] Admin: 12/03/18 07:43 Dose: 40 mg Documented by: [id number] Admin: 12/02/18 12:00 Dose: 40 mg Documented by: [id number] Bisacodyl (Dulcolax) 10 mg [place] UD PRN PRN Reason: Constipation Stop: 12/31/18 23:20 Last Admin: 12/04/18 10:34 Dose: 10 mg Documented by: [id number] Clopidogrel Bisulfate (Plavix) 75 mg PO DAILY KAYLYNN Stop: 01/01/19 08:59 Last Admin: 12/12/18 07:52 Dose: 75 mg Documented by: [id number] Admin: 12/11/18 08:57 Dose: 75 mg Documented by: [id number] Admin: 12/10/18 08:01 Dose: 75 mg Documented by: [id number] Admin: 12/09/18 08:03 Dose: 75 mg Documented by: [id number] Admin: 12/08/18 07:34 Dose: 75 mg Documented by: [id number] Admin: 12/07/18 08:02 Dose: 75 mg Documented by: [id number] Admin: 12/06/18 09:38 Dose: 75 mg Documented by: [id number] Admin: 12/05/18 10:20 Dose: 75 mg Documented by: [id number] Admin: 12/04/18 08:27 Dose: Not Given Documented by: [id number] Admin: 12/03/18 07:44 Dose: 75 mg Documented by: [id number] Admin: 12/02/18 09:27 Dose: 75 mg Documented by: [id number] Enoxaparin Sodium (Lovenox) 40 mg SQ QAM [facility] Stop: 01/09/19 09:59 Last Admin: 12/12/18 07:56 Dose: 40 mg Documented by: [id number] Admin: 12/11/18 08:57 Dose: 40 mg Documented by: [id number] Admin: 12/10/18 10:18 Dose: 40 mg Documented by: [id number] Enteral Nutritional Formula (Peptamen 1.5) 1,000 ml PEG DAILY@1900 KAYLYNN; Protocol Stop: 01/01/19 18:59 Last Admin: 12/04/18 19:52 Dose: 1,000 ml Documented by: [id number] Admin: 12/03/18 21:17 Dose: 1,000 ml Documented by: [id number] Admin: 12/02/18 20:37 Dose: 1,000 ml Documented by: [id number] Famotidine (Pepcid) 40 mg PO DAILY [facility] Stop: 01/01/19 08:59 Last Admin: 12/12/18 07:52 Dose: 40 mg Documented by: [id number] Admin: 12/11/18 08:56 Dose: 40 mg Documented by: [id number] Admin: 12/10/18 08:01 Dose: 40 mg Documented by: [id number] Admin: 12/09/18 08:02 Dose: 40 mg Documented by: [id number] Admin: 12/08/18 07:34 Dose: 40 mg Documented by: [id number] Admin: 12/07/18 08:03 Dose: 40 mg Documented by: [id number] Admin: 12/06/18 09:38 Dose: 40 mg Documented by: [id number] Admin: 12/05/18 10:20 Dose: 40 mg Documented by: [id number] Admin: 12/04/18 08:27 Dose: Not Given Documented by: [id number] Admin: 12/03/18 07:44 Dose: 40 mg Documented by: [id number] Admin: 12/02/18 09:27 Dose: 40 mg Documented by: [id number] Finasteride (Proscar) 5 mg PO DAILY [facility] Stop: 01/01/19 08:59 Last Admin: 12/12/18 07:53 Dose: 5 mg Documented by: [id number] Admin: 12/11/18 08:56 Dose: 5 mg Documented by: [id number] Admin: 12/10/18 08:01 Dose: 5 mg Documented by: [id number] Admin: 12/09/18 08:03 Dose: 5 mg Documented by: [id number] Admin: 12/08/18 07:34 Dose: 5 mg Documented by: [id number] Admin: 12/07/18 08:02 Dose: 5 mg Documented by: [id number] Admin: 12/06/18 09:38 Dose: 5 mg Documented by: [id number] Admin: 12/05/18 10:21 Dose: 5 mg Documented by: [id number] Admin: 12/04/18 08:27 Dose: Not Given Documented by: [id number] Admin: 12/03/18 07:45 Dose: 5 mg Documented by: [id number] Admin: 12/02/18 09:29 Dose: 5 mg Documented by: [id number] Haloperidol Lactate (Haldol) 1 mg IM Q6 PRN PRN Reason: Agitation Stop: 12/31/18 23:20 Last Admin: 12/12/18 07:38 Dose: 1 mg Documented by: [id number] Admin: 12/12/18 01:03 Dose: 1 mg Documented by: [id number] Admin: 12/09/18 03:57 Dose: 1 mg Documented by: [id number] Insulin Aspart (Novolog Flexpen) 0 units SC ACHS [facility]; Protocol Stop: 01/05/19 20:59 Last Admin: 12/12/18 07:58 Dose: 4 units Documented by: [id number] Cosigned by: [id number] Admin: 12/11/18 20:43 Dose: Not Given Documented by: [id number] Cosigned by: [id number] Admin: 12/11/18 17:28 Dose: Not Given Documented by: [id number] Cosigned by: [id number] Admin: 12/11/18 12:46 Dose: 6 units Documented by: [id number] Cosigned by: [id number] Admin: 12/11/18 08:58 Dose: 3 units Documented by: [id number] Cosigned by: [id number] Admin: 12/10/18 20:31 Dose: 2 units Documented by: [id number] Cosigned by: [id number] Admin: 12/10/18 18:41 Dose: 7 units Documented by: [id number] Cosigned by: [id number] Admin: 12/10/18 11:58 Dose: Not Given Documented by: [id number] Cosigned by: [id number] Admin: 12/10/18 08:00 Dose: 2 units Documented by: [id number] Cosigned by: [id number] Admin: 12/09/18 21:38 Dose: Not Given Documented by: [id number] Cosigned by: [id number] Admin: 12/09/18 17:10 Dose: Not Given Documented by: [id number] Cosigned by: [id number] Admin: 12/09/18 12:06 Dose: 6 units Documented by: [id number] Cosigned by: [id number] Admin: 12/09/18 08:54 Dose: 1 units Documented by: [id number] Cosigned by: [id number] Admin: 12/08/18 21:22 Dose: Not Given Documented by: [id number] Cosigned by: [id number] Admin: 12/08/18 19:03 Dose: Not Given Documented by: [id number] Cosigned by: [id number] Admin: 12/08/18 12:26 Dose: Not Given Documented by: [id number] Cosigned by: [id number] Admin: 12/08/18 08:23 Dose: 6 units Documented by: [id number] Cosigned by: [id number] Admin: 12/07/18 20:41 Dose: Not Given Documented by: [id number] Cosigned by: [id number] Admin: 12/07/18 17:32 Dose: 2 units Documented by: [id number] Cosigned by: [id number] Admin: 12/07/18 12:48 Dose: 5 units Documented by: [id number] Cosigned by: [id number] Admin: 12/07/18 08:04 Dose: 5 units Documented by: [id number] Cosigned by: [id number] Admin: 12/06/18 20:48 Dose: 3 units Documented by: [id number] Cosigned by: [id number] Metoprolol Succinate (Toprol Xl) 50 mg PO DAILY [facility] Stop: 01/01/19 08:59 Last Admin: 12/12/18 07:53 Dose: 50 mg Documented by: [id number] Admin: 12/11/18 08:57 Dose: 50 mg Documented by: [id number] Admin: 12/10/18 08:01 Dose: 50 mg Documented by: [id number] Admin: 12/09/18 08:03 Dose: 50 mg Documented by: [id number] Admin: 12/08/18 07:34 Dose: 50 mg Documented by: [id number] Admin: 12/07/18 08:02 Dose: 50 mg Documented by: [id number] Admin: 12/06/18 09:39 Dose: 50 mg Documented by: [id number] Admin: 12/05/18 10:21 Dose: 50 mg Documented by: [id number] Admin: 12/04/18 08:27 Dose: Not Given Documented by: [id number] Admin: 12/03/18 07:44 Dose: 50 mg Documented by: [id number] Admin: 12/02/18 09:26 Dose: 50 mg Documented by: [id number] Miscellaneous (Remove Lidoderm Patch) 1 ea N/A DAILY@2100 [facility] Stop: 01/10/19 20:59 Last Admin: 12/11/18 20:41 Dose: 1 ea Documented by: [id number] Miscellaneous (Stop Order) 1 ea N/A DAILY@0700 [facility] Stop: 01/02/19 06:59 Last Admin: 12/06/18 00:50 Dose: Not Given Documented by: [id number] Admin: 12/05/18 03:54 Dose: 1 ea Documented by: [id number] Admin: 12/04/18 07:45 Dose: 1 ea Documented by: [id number] Admin: 12/03/18 07:42 Dose: 1 ea Documented by: [id number] Ondansetron HCl (Zofran) 4 mg IV Q6H PRN PRN Reason: NAUSEA/VOMITING Stop: 12/31/18 23:20 Last Admin: 12/06/18 20:51 Dose: 4 mg Documented by: [id number] Admin: 12/05/18 12:12 Dose: 4 mg Documented by: [id number] Admin: 12/05/18 03:13 Dose: 4 mg Documented by: [id number] Admin: 12/04/18 08:21 Dose: 4 mg Documented by: [id number] Admin: 12/02/18 23:31 Dose: 4 mg Documented by: [id number] Polyethylene Glycol (Miralax Powder Packet) 17 gm PO TID KAYLYNN Stop: 01/08/19 20:59 Last Admin: 12/12/18 07:47 Dose: Not Given Documented by: [id number] Admin: 12/11/18 20:41 Dose: Not Given Documented by: [id number] Admin: 12/11/18 14:28 Dose: Not Given Documented by: [id number] Admin: 12/11/18 08:56 Dose: Not Given Documented by: [id number] Admin: 12/10/18 20:31 Dose: 17 gm Documented by: [id number] Admin: 12/10/18 13:41 Dose: 17 gm Documented by: [id number] Admin: 12/10/18 08:01 Dose: 17 gm Documented by: [id number] Admin: 12/09/18 21:15 Dose: 17 gm Documented by: [id number] Tamsulosin HCl (Flomax) 0.4 mg PO DAILY KAYLYNN Stop: 01/01/19 08:59 Last Admin: 12/12/18 07:51 Dose: 0.4 mg Documented by: [id number] Admin: 12/11/18 08:56 Dose: 0.4 mg Documented by: [id number] Admin: 12/10/18 08:01 Dose: 0.4 mg Documented by: [id number] Admin: 12/09/18 08:01 Dose: 0.4 mg Documented by: [id number] Admin: 12/08/18 07:34 Dose: 0.4 mg Documented by: [id number] Admin: 12/07/18 08:02 Dose: 0.4 mg Documented by: [id number] Admin: 12/06/18 09:37 Dose: 0.4 mg Documented by: [id number] Admin: 12/05/18 10:19 Dose: 0.4 mg Documented by: [id number] Admin: 12/04/18 08:26 Dose: Not Given Documented by: [id number] Admin: 12/03/18 07:44 Dose: 0.4 mg Documented by: [id number] Admin: 12/02/18 09:27 Dose: 0.4 mg Documented by: [id number] Tramadol HCl (Ultram) 50 mg PO Q4H PRN PRN Reason: Pain Stop: 01/05/19 12:28 Last Admin: 12/10/18 10:08 Dose: 50 mg Documented by: [id number] Admin: 12/09/18 13:42 Dose: 50 mg Documented by: [id number] Admin: 12/09/18 08:04 Dose: 50 mg Documented by: [id number] Admin: 12/09/18 02:06 Dose: 50 mg Documented by: [id number] Admin: 12/08/18 02:30 Dose: 50 mg Documented by: [id number] Admin: 12/07/18 22:03 Dose: 50 mg Documented by: [id number] Admin: 12/07/18 17:37 Dose: 50 mg Documented by: [id number] Admin: 12/07/18 12:45 Dose: 50 mg Documented by: [id number] Admin: 12/07/18 09:18 Dose: 50 mg Documented by: [id number] Admin: 12/06/18 21:29 Dose: 50 mg Documented by: [id number] Valproic Acid (Valproic Acid) 250 mg PO Q12 KAYLYNN Stop: 01/03/19 08:59 Last Admin: 12/12/18 07:58 Dose: 250 mg Documented by: [id number] Admin: 12/11/18 20:41 Dose: 250 mg Documented by: [id number] Admin: 12/11/18 08:57 Dose: 250 mg Documented by: [id number] Admin: 12/10/18 20:31 Dose: 250 mg Documented by: [id number] Admin: 12/10/18 08:02 Dose: 250 mg Documented by: [id number] Admin: 12/09/18 21:16 Dose: 250 mg Documented by: [id number] Admin: 12/09/18 08:04 Dose: 250 mg Documented by: [id number] Admin: 12/08/18 21:23 Dose: 250 mg Documented by: [id number] Admin: 12/08/18 07:34 Dose: 250 mg Documented by: [id number] Admin: 12/07/18 21:24 Dose: 250 mg Documented by: [id number] Admin: 12/07/18 08:02 Dose: 250 mg Documented by: [id number] Admin: 12/06/18 20:49 Dose: 250 mg Documented by: [id number] Admin: 12/06/18 09:39 Dose: 250 mg Documented by: [id number] Admin: 12/05/18 20:17 Dose: 250 mg Documented by: [id number] Admin: 12/05/18 10:19 Dose: 250 mg Documented by: [id number] Admin: 12/04/18 21:05 Dose: 250 mg Documented by: [id number] Admin: 12/04/18 08:27 Dose: Not Given Documented by: [id number]
[2018-12-12] MEDS ORDERED: ACETAMINOPHEN W/CODEINE #3 1 TAB PO ONE (19:33)
[2018-12-13 06:18] LABS: Hematocrit (blood only) 31.1 % (42-52); Mean Corpuscular Hgb Conc 32.2 g/dL (32-36); Mean Corpuscular Volume 90.7 fL (80-100); Mean Platelet Volume 8.8 fL (7.4-10.4); Platelet Count 160 K/uL (130-400); RDW Standard Deviation 56.5 fL (36.4-46.3); Red Blood Count 3.43 M/uL (4.7-6.1); White Blood Count 10.54 K/uL (4.8-10.8)
[2018-12-13] MEDS: ACETAMINOPHEN 325 MG TAB PO PRN ×3 (06:44→17:27)
[2018-12-13 06:48] LABS: Creatinine Clr Calc Pharmacy 92.5 ml/min; Est GFR (Non-African American) 89.7
[2018-12-13] MEDS: ATORVASTATIN 40 MG TAB PO SCH (07:59)
[2018-12-13] MEDS: METOPROLOL SUCC 50MG EXT REL TAB PO SCH (07:59)
[2018-12-13] MEDS: CLOPIDOGREL BISULFATE 75 MG TAB PO SCH (07:59)
[2018-12-13] MEDS: ASPIRIN 81 MG ECTAB PO SCH (08:00)
[2018-12-13] MEDS: TAMSULOSIN HCL 0.4 MG CAP PO SCH (08:00)
[2018-12-13] MEDS: FAMOTIDINE 20 MG TAB PO SCH (08:00)
[2018-12-13] MEDS: FINASTERIDE 5 MG TAB PO SCH (08:00)
[2018-12-13] MEDS: ENOXAPARIN INJ 40 MG/0.4 ML SYR SQ SCH (08:02)
[2018-12-13] MEDS: LIDOCAINE 5% 1 PATCH TD SCH ×2 (08:02→18:37)
[2018-12-13] MEDS: POLYETHYLENE (MIRALAX) 17 GM PACK PO SCH ×3 (08:02→20:50)
[2018-12-13] MEDS: VALPROIC ACID SOLN 250 MG/5 ML UDC PO SCH ×2 (08:03→20:50)
[2018-12-13] MEDS: INSULIN ASPART 100 UNITS/ML 3 ML PEN SC SCH ×4 (08:09→21:15)
--- NOTE | 2018-12-13 11:15 | Pharmacy Report ---
Glycemic Control Progress Note - Date of Service December 13, 2018 - Scope Glycemic Pharmacist consulted for glycemic control to write orders per [facility] inpatient glycemic control protocol. - Objective Accuchecks BSG(last 24 hours):: 12/12/18 12/12/18 12/12/18 11:09 16:25 20:56 POC Glucose 108 H 143 H 99 12/13/18 07:29 POC Glucose 95 - Recent Pertinent Medications The patient is currently receiving: * Basal insulin: Lantus -- units every -- hours * Correctional Insulin: Novolog Correction per scale ACHS Goal Range: Low 110 mg/dL - High 140 mg/dL Correction Factor: 25 mg/dL/unit * Prandial insulin: Per carb ratio of 1 unit per 8 grams CHO consumed * Oral Agents: - Outpatient Anti-Diabetic Meds HUMALOG SCALE - Assessment & Plan ASSESSMENT: * See progress note from 12/03/18 for more background info, in short: * Pt receiving SQ basal bolus insulin regimen for hyperglycemia secondary to baseline DM (outpatient regimen on hold). * Patient is currently receiving an average of 11 units of insulin per day * 0 units of basal insulin * 11 units of prandial/correctional insulin * BSGs ranging 108 - 143 mg/dl over the past 24hrs * Changes needed to insulin regimen: * AM Fasting BSG = 95 mg/dl. This is in goal range for patient based on inpatient targets and co-morbidities. Therefore Basal insulin will continue to be held. * Post-prandial BSGs do tend to trend downwards. Loosen carbohydrate ratio slightly. * Total daily dose = <15 units. PLAN FOR INPATIENT GLYCEMIC CONTROL: * Continuing correction factor of 25 mg/dl/unit * Changing carb ratio to 1 unit per 10 grams CHO consumed * Continuing goal range of Low 110 mg/dL - High 140 mg/dL RECOMMENDATIONS FOR DISCHARGE: * patient can continue home regimen - going to rehab so can be closely monitored. * Please note that the plan above was derived based on current level of insulin resistance and hospital stress. These recommendations are appropriate for inpatient admission only. Plan of care upon discharge will need to be reassessed to avoid potential outpatient hypo/hyperglycemia. Thank you.
--- NOTE | 2018-12-13 15:57 | Hospitalist Progress Note ---
Date of Service December 13, 2018 Assessment & Plan (1) Ileus: - Held overnight tube feeds for now as he seems to have a better appetite and may be able to cover his calorie needs with normal eating. - Will need to follow up with gen surg for PEG removal in 2-3 months if he continues to improve. - Restarted mechanical soft diet. -Constipation improved with relistor. -Overall seems to be doing better. (2) Altered mental status: Likely multifactorial, appreciate psychiatry and neurology input. Continue supportive care. Continue current regimen. I asked if he could be moved to a room with a better view of the outside world. He is able to go to the [facility] if he is supervised. (3) Anemia: Hgb was 7.4 on presentation. Heme-negative in the ED. Received 2 units PRBCs on 12/01 with an appropriate increase in hgb to 9.5. - By 12/03, hgb had spontaneously risen to 11.2. B12 & folate both good (>2000 and 13.0). Iron studies show low iron, transferrin, and TIBC. With caveat that he'd already received blood, this would indicate iron deficiency/anemia of chronic disease. -Overall appears stable. Continue periodic follow-up. (4) PAULA (acute kidney injury): Appeared to have been prerenal. Now improved. Continue to follow creatinine periodically. (5) Non-ST elevated myocardial infarction (non-STEMI): Asymptomatic - Continue medical management - No plan for intervention at this time. (6) Depression: Seems to be stable today. Continue current plans, appreciate psychiatry input. (7) Ischemic cardiomyopathy: Ischemic cardiomyopathy with EF 25-30% on echo on 12/02. -Seems to be asymptomatic today. (8) Diabetes mellitus, type 2: A1c was 5.6% in 10/2018. In prior admissions, he has not needed any long- acting, just sliding scale. - Sliding scale insulin - Glycemic pharmacist consult -Sugars reasonable control (9) Abscess in epidural space of lumbar spine: CT of lumbar spine on 12/01 indicate no persistent abscess. Treatment upon discharge completed from last hospitalization: daptomycin IV, ceftriaxone IV, and caspofungin IV. - Hold any antibiotic or antifungal therapy, as treatment appears to have been completed. Ongoing vigilance and outpatient follow-up (10) BPH (benign prostatic hyperplasia): No noted symptoms today (11) Obstructive sleep apnea: Outpatient follow-up (12) DVT prophylaxis: Lovenox 40mg daily - Monitor renal function (13) Chronic back pain: Continue current plan. Patient notes today pain is under reasonable control. Subjective No complaints other than wanting her room with a better view. His back pain is still present but believes it to be reasonably controlled. He is optimistically looking forward to a return to [facility] earlier this coming week. Review of Systems Review of Systems: All systems reviewed & are unremarkable except as noted in HPI & below Physical Exam Physical Exam: In general he is awake and alert pleasant no distress. HEENT normocephalic atraumatic mucous members are moist. Breathing unlabored no accessory muscle use good effort. Abdomen soft nondistended, extremities show no cyanosis or clubbing. Results & Data Vital Signs (Past 12 Hours) Vital Signs Temp Pulse Pulse Resp BP BP Pulse Ox 12/13/18 15:00 36.6 C 69 18 105/66 99 12/13/18 07:48 36.4 C L 77 18 112/60 98 PG Care Time/CCT Total # of Minutes Spent Total Time Spent with Patient: Total time spent is greater than 50% in coordination of care (as documented) at patient's floor/unit and/or counseling patient: (1) Altered mental status Altered mental status type: unspecified Qualified Code(s): R41.82 - Altered mental status, unspecified (2) Anemia Anemia type: unspecified type Qualified Code(s): D64.9 - Anemia, unspecified
[2018-12-13] MEDS ORDERED: METHYLNALTREXONE BROMIDE 12 MG/0.6 ML VIAL SQ PRN (18:00)
[2018-12-13] MEDS: HALOPERIDOL LACTATE 5 MG/ML 1 ML VIAL IM PRN (21:27)
[2018-12-14] MEDS: HALOPERIDOL LACTATE 5 MG/ML 1 ML VIAL IM PRN ×2 (05:02→23:44)
[2018-12-14] MEDS: ACETAMINOPHEN 325 MG TAB PO PRN ×3 (05:35→22:44)
[2018-12-14] MEDS: LIDOCAINE 5% 1 PATCH TD SCH (07:13)
[2018-12-14] MEDS: POLYETHYLENE (MIRALAX) 17 GM PACK PO SCH ×3 (07:43→20:54)
[2018-12-14] MEDS: VALPROIC ACID SOLN 250 MG/5 ML UDC PO SCH ×2 (07:43→20:58)
[2018-12-14] MEDS: ASPIRIN 81 MG ECTAB PO SCH (07:44)
[2018-12-14] MEDS: ATORVASTATIN 40 MG TAB PO SCH (07:45)
[2018-12-14] MEDS: ENOXAPARIN INJ 40 MG/0.4 ML SYR SQ SCH (07:45)
[2018-12-14] MEDS: TAMSULOSIN HCL 0.4 MG CAP PO SCH (07:45)
[2018-12-14] MEDS: CLOPIDOGREL BISULFATE 75 MG TAB PO SCH (07:46)
[2018-12-14] MEDS: FINASTERIDE 5 MG TAB PO SCH (07:46)
[2018-12-14] MEDS: FAMOTIDINE 20 MG TAB PO SCH (07:46)
[2018-12-14] MEDS: METOPROLOL SUCC 50MG EXT REL TAB PO SCH (07:47)
[2018-12-14] MEDS ORDERED: KETOROLAC TROMETHAMINE 15 MG/ML VIAL IV ONE (08:36)
[2018-12-14] MEDS: INSULIN ASPART 100 UNITS/ML 3 ML PEN SC SCH ×4 (09:02→20:52)
--- NOTE | 2018-12-14 14:24 | Hospitalist Progress Note ---
Date of Service December 14, 2018 Assessment & Plan (1) Ileus: -Seems to have improved - Will need to follow up with gen surg for PEG removal in 2-3 months if he continues to improve. -Tolerating mechanical soft diet. -Constipation improved with relistor. -Overall seems to be doing better. (2) Altered mental status: Likely multifactorial, appreciate psychiatry and neurology input. Continue supportive care. Continue current regimen. He now seems to be fairly oriented to his situation, and at times even endorses calling out for attention. Again we will ask to get him a room with a better view if possible, as well as a low supervised. (3) Anemia: Hgb was 7.4 on presentation. Heme-negative in the ED. Received 2 units PRBCs on 12/01 with an appropriate increase in hgb to 9.5. - By 12/03, hgb had spontaneously risen to 11.2. B12 & folate both good (>2000 and 13.0). Iron studies show low iron, transferrin, and TIBC. With caveat that he'd already received blood, this would indicate iron deficiency/anemia of chronic disease. -Overall appears stable. Follow hemoglobin periodically (4) PAULA (acute kidney injury): Appeared to have been prerenal. Now improved. Continue to follow creatinine periodically. Currently good enough creatinine clearance to tolerate a low dose of Toradol as above. (5) Non-ST elevated myocardial infarction (non-STEMI): Asymptomatic - Continue medical management and follow-up (6) Depression: Continue current medications, appreciate psychiatry input. (7) Ischemic cardiomyopathy: Ischemic cardiomyopathy with EF 25-30% on echo on 12/02. -Asymptomatic today. (8) Diabetes mellitus, type 2: A1c was 5.6% in 10/2018. In prior admissions, he has not needed any long- acting, just sliding scale. - Sliding scale insulin - Glycemic pharmacist consult -Sugars show adequate control (9) Abscess in epidural space of lumbar spine: CT of lumbar spine on 12/01 indicate no persistent abscess. Treatment upon discharge completed from last hospitalization: daptomycin IV, ceftriaxone IV, and caspofungin IV. - Hold any antibiotic or antifungal therapy, as treatment appears to have been completed. Ongoing vigilance and outpatient follow-up -Pain seems to be heavily residual from this (10) BPH (benign prostatic hyperplasia): No noted symptoms today (11) Obstructive sleep apnea: Outpatient follow-up (12) DVT prophylaxis: Lovenox 40mg daily - Monitor renal function (13) Chronic back pain: Continue current plan. Had worse pain earlier today, but seems to have improved nicely with a dose of Toradol (14) Discharge planning issues: According to case management, he hopefully will be able to return to [facility] tomorrow Subjective Earlier this morning was complaining of back pain. After a one-time dose of Toradol he notes his pain is under control. He endorses feeling the need for attention as part of his calling out. He is optimistic about getting out of the hospital and back to [facility] tomorrow. Review of Systems Review of Systems: All systems reviewed & are unremarkable except as noted in HPI & below As best can be obtained Physical Exam Physical Exam: General he is awake and alert pleasant no distress. HEENT normocephalic atraumatic mucous membranes moist. Breathing unlabored no accessory muscle use good effort. Skin shows no rashes no pallor or icterus. Neuro shows no new focal deficits. Results & Data Vital Signs (Past 12 Hours) Vital Signs Temp Pulse Resp BP Pulse Ox 12/14/18 07:40 36.9 C 81 20 122/75 95 PG Care Time/CCT Total # of Minutes Spent Total Time Spent with Patient: Total time spent is greater than 50% in coordination of care (as documented) at patient's floor/unit and/or counseling patient: (1) Altered mental status Altered mental status type: unspecified Qualified Code(s): R41.82 - Altered mental status, unspecified (2) Anemia Anemia type: unspecified type Qualified Code(s): D64.9 - Anemia, unspecified
[2018-12-14] MEDS ORDERED: LORazepam 0.5 MG TAB PO STA (21:54)
[2018-12-14] MEDS ORDERED: OLANZAPINE ZYDIS 5 MG ORALLY DIS. TAB PO ONE (21:55)
[2018-12-15] MEDS: METOPROLOL SUCC 50MG EXT REL TAB PO SCH (09:09)
[2018-12-15] MEDS: ASPIRIN 81 MG ECTAB PO SCH (09:09)
[2018-12-15] MEDS: TAMSULOSIN HCL 0.4 MG CAP PO SCH (09:09)
[2018-12-15] MEDS: CLOPIDOGREL BISULFATE 75 MG TAB PO SCH (09:09)
[2018-12-15] MEDS: ENOXAPARIN INJ 40 MG/0.4 ML SYR SQ SCH (09:09)
[2018-12-15] MEDS: FINASTERIDE 5 MG TAB PO SCH (09:09)
[2018-12-15] MEDS: FAMOTIDINE 20 MG TAB PO SCH (09:09)
[2018-12-15] MEDS: VALPROIC ACID SOLN 250 MG/5 ML UDC PO SCH ×2 (09:09→20:51)
[2018-12-15] MEDS: ATORVASTATIN 40 MG TAB PO SCH (09:09)
[2018-12-15] MEDS: LIDOCAINE 5% 1 PATCH TD SCH (09:10)
[2018-12-15] MEDS: POLYETHYLENE (MIRALAX) 17 GM PACK PO SCH ×3 (09:12→20:09)
[2018-12-15] MEDS: INSULIN ASPART 100 UNITS/ML 3 ML PEN SC SCH ×4 (09:13→20:54)
--- NOTE | 2018-12-15 09:26 | Pain Management Progress Note ---
Date of Service December 15, 2018 Subjective Pain management consultation initially placed on 12/12/2018. Chart was reviewed. Patient with minimal complaints of pain over the past 48 hours with rare utilization of tramadol for breakthrough pain with last dose on 12/10/2018 and expected discharge to [facility] today. Formal pain management consultation was deferred at this time. Please contact pain service for reevaluation as needed.
[2018-12-15] MEDS: TRAMADOL HCL 50 MG TABLET PO PRN ×2 (09:30→18:55)
--- NOTE | 2018-12-15 10:13 | Pharmacy Report ---
Glycemic Control Progress Note - Date of Service December 15, 2018 - Scope Glycemic Pharmacist consulted for glycemic control to write orders per [facility] inpatient glycemic control protocol. - Objective Accuchecks BSG(last 24 hours):: 12/14/18 12/14/18 12/14/18 11:17 16:36 19:55 POC Glucose 124 H 81 151 H 12/15/18 07:27 POC Glucose 106 H - Recent Pertinent Medications The patient is currently receiving: * Basal insulin: Lantus -- units every -- hours * Correctional Insulin: Novolog Correction per scale ACHS Goal Range: Low 110 mg/dL - High 140 mg/dL Correction Factor: 25 mg/dL/unit * Prandial insulin: Per carb ratio of 1 unit per 10 grams CHO consumed - Outpatient Anti-Diabetic Meds Humalog scale - Assessment & Plan ASSESSMENT: * See progress note from 12/03/18 for more background info, in short: * Pt receiving SQ basal bolus insulin regimen for hyperglycemia secondary to baseline DM (outpatient regimen on hold). * Patient is currently receiving an average of 9 units of insulin per day * 0 units of basal insulin * 9 units of prandial/correctional insulin * BSGs ranging 81 - 151 mg/dl over the past 24hrs * Changes needed to insulin regimen: * AM Fasting BSG = 106 mg/dl. This is in goal range for patient based on i npatient targets and co-morbidities. No basal insulin is ordered. * Post-prandial BSGs are in range. (only one value above goal range in past 48 hours). Trial removing carbohydrate ratio. * Total daily dose = <10 units. PLAN FOR INPATIENT GLYCEMIC CONTROL: * Loosening correction factor to 30 mg/dl/unit * REMOVING carb ratio * Continuing goal range of Low 110 mg/dL - High 140 mg/dL RECOMMENDATIONS FOR DISCHARGE: * Consider monitoring of blood sugar as an outpatient. Patient only requires small amounts of insulin so therefore it is reasonable to hold insulin and evaluate his blood sugar control. * Please note that the plan above was derived based on current level of insulin resistance and hospital stress. These recommendations are appropriate for inpatient admission only. Plan of care upon discharge will need to be reassessed to avoid potential outpatient hypo/hyperglycemia. Thank you.
[2018-12-15] MEDS: GABAPENTIN 100 MG CAP PO SCH ×2 (12:53→20:52)
--- NOTE | 2018-12-15 13:18 | Hospitalist Progress Note ---
Date of Service December 15, 2018 Assessment & Plan (1) Ileus: Vomited with his tube feeds during admission. KUBs showed ileus, but never an obstruction. Likely opiate-related as he seems to have had improvement with Relistor. - Continue mechanical soft diet - Holding all tube feeds at present; no need as he is taking in good PO intake. Will need to let the PEG mature, but then could remove in 2-3 months per general surgery. (2) Altered mental status: Likely due to risperidone and possibly opiate medications. - Tapered risperidone during his admission. Stopped all together by 12/07. - Minimize opiate meds (3) Anemia: Hgb was 7.4 on presentation. Heme-negative in the ED. Received 2 units PRBCs on 12/01 with an appropriate increase in hgb to 9.5. - By 12/03, hgb had spontaneously risen to 11.2. B12 & folate both good (>2000 and 13.0). Iron studies show low iron, transferrin, and TIBC. With caveat that he'd already received blood, this would indicate iron deficiency/anemia of chronic disease. - Overall appears stable. Follow hemoglobin periodically. (4) PAULA (acute kidney injury): Appeared to have been pre-renal. Now improved. - Continue to follow creatinine periodically. - Cr now at normal levels. (5) Non-ST elevated myocardial infarction (non-STEMI): Asymptomatic. Seen by cardiology without any plan for intervention as his LHC in 07/2018 showed diffuse disease that was not amenable to intervention. - Continue medical management and follow-up (6) Depression: Continued current medications, appreciate psychiatry input. (7) Ischemic cardiomyopathy: Ischemic cardiomyopathy with EF 25-30% on echo on 12/02. - Asymptomatic today (8) Diabetes mellitus, type 2: A1c was 5.6% in 10/2018. In prior admissions, he has not needed any long- acting, just sliding scale. - Sliding scale insulin - Glycemic pharmacist consult (9) Abscess in epidural space of lumbar spine: CT of lumbar spine on 12/01 indicate no persistent abscess. Treatment upon discharge completed from last hospitalization: daptomycin IV, ceftriaxone IV, and caspofungin IV. - Hold any antibiotic or antifungal therapy, as treatment was completed. Ongoing vigilance and outpatient follow-up. -Pain seems to be heavily residual from this (10) BPH (benign prostatic hyperplasia): No noted symptoms today. (11) Obstructive sleep apnea: Outpatient follow-up (12) DVT prophylaxis: Lovenox 40mg daily - Monitor renal function Subjective Reports pain in his back as well as some tingling in the legs. Oriented to person and day. Review of Systems Review of Systems: All systems reviewed & are unremarkable except as noted in HPI & below Physical Exam Constitutional: WD/WN, vitals as above not lethargic Eyes: EOM intact bilaterally; no conjunctival abnormality ENMT: external ear and nose normal, oropharynx normal Neck: trachea midline, no thyromegaly normal visual inspection Respiratory: normal respiratory effort, lungs clear to auscultation no respiratory distress Cardiovascular: RRR, no murmur, no edema Gastrointestinal (Abdomen): Inspection/Auscultation: abdomen normal to inspection and + abdominal surgical incision (PEG tube site without erythema or discharge); abdomen not distended Percussion/Palpation: abdomen soft; abdomen nontender, no guarding and abdomen not rigid Musculoskeletal: no cyanosis or clubbing, extremities motor strength 5/5 Skin: no rashes, warm and dry Neurologic: moves all extremities and awake Psychiatric: Orientation: alert, oriented to person and cooperative Results & Data Vital Signs (Past 12 Hours) Vital Signs Temp Pulse Resp BP Pulse Ox 12/15/18 07:09 36.8 C 76 16 106/65 97 PG Care Time/CCT Total # of Minutes Spent Total Time Spent with Patient: Total time spent is greater than 50% in coordination of care (as documented) at patient's floor/unit and/or counseling patient: (1) Altered mental status Altered mental status type: unspecified Qualified Code(s): R41.82 - Altered mental status, unspecified (2) Anemia Anemia type: unspecified type Qualified Code(s): D64.9 - Anemia, unspecified
[2018-12-15] MEDS: ACETAMINOPHEN 325 MG TAB PO PRN ×2 (16:10→22:29)
[2018-12-16 06:00] LABS: Hematocrit (blood only) 31.6 % (42-52); Hemoglobin 10.2 g/dL (14.0-18.0); Mean Corpuscular Hgb Conc 32.3 g/dL (32-36); Mean Corpuscular Volume 90.5 fL (80-100); Mean Platelet Volume 9.1 fL (7.4-10.4); Platelet Count 150 K/uL (130-400); RDW Coefficient of Variation 17.1 % (11.5-14.5); RDW Standard Deviation 56.5 fL (36.4-46.3); Red Blood Count 3.49 M/uL (4.7-6.1); White Blood Count 6.31 K/uL (4.8-10.8)
[2018-12-16 06:32] LABS: Creatinine Clr Calc Pharmacy 88.5 ml/min; Est GFR (African American) 99.5; Est GFR (Non-African American) 85.8
[2018-12-16] MEDS: GABAPENTIN 100 MG CAP PO SCH (08:06)
[2018-12-16] MEDS: FINASTERIDE 5 MG TAB PO SCH (08:06)
[2018-12-16] MEDS: FAMOTIDINE 20 MG TAB PO SCH (08:07)
[2018-12-16] MEDS: TAMSULOSIN HCL 0.4 MG CAP PO SCH (08:07)
[2018-12-16] MEDS: TRAMADOL HCL 50 MG TABLET PO PRN (08:08)
[2018-12-16] MEDS: CLOPIDOGREL BISULFATE 75 MG TAB PO SCH (08:08)
[2018-12-16] MEDS: ASPIRIN 81 MG ECTAB PO SCH (08:08)
[2018-12-16] MEDS: VALPROIC ACID SOLN 250 MG/5 ML UDC PO SCH (08:08)
[2018-12-16] MEDS: POLYETHYLENE (MIRALAX) 17 GM PACK PO SCH ×2 (08:08→13:57)
[2018-12-16] MEDS: METOPROLOL SUCC 50MG EXT REL TAB PO SCH (08:08)
[2018-12-16] MEDS: LIDOCAINE 5% 1 PATCH TD SCH (08:08)
[2018-12-16] MEDS: ATORVASTATIN 40 MG TAB PO SCH (08:08)
[2018-12-16] MEDS: INSULIN ASPART 100 UNITS/ML 3 ML PEN SC SCH ×2 (08:10→12:47)
[2018-12-16] MEDS: ENOXAPARIN INJ 40 MG/0.4 ML SYR SQ SCH (10:43)
[2018-12-16] MEDS: ACETAMINOPHEN 325 MG TAB PO PRN (12:44)
--- NOTE | 2018-12-16 16:00 | Discharge Summary ---
Date of Service December 16, 2018 Admission HPI Per Admitting Provider Leandro Cooper is a 67-year-old male admitted medically on 12/01/18 due to AMS and fatigue. It was reported that the patient had been admitted to [facility] several times in the past few months for similar complaints - requiring various interventions. Pt was admitted to [facility] on 09/10/18 for surgical procedures and was [facility] 09[facility]16[facility]. He was readmitted on 09/27/18 due to confusion and pain. Pt was then transferred to a long-term care facility at [facility] on 10/22/18. [facility] to [facility] following that admission on 11/26/18. He was reported to have ongoing episodes of confusion as well as two falls out of bed, along with reports of hallucinations. He was then admitted to this facility on 12/01/18 and remains on the medical floor for treatment. He had been admitted with TID dosing of risperidone 0.5mg and prn doses of haloperidol 1mg IM. Over the course of this recent admission, risperidone was tapered and eventually discontinued - believed to be contributing to improvement in mental status. Pt's confusion has reportedly improved and he had denied ongoing hallucinations. PRN haloperidol had remained available for verbal agitation, which is reportedly most prominent in the mornings. He did received one 2.5mg dose of olanzapine around 1200 today for verbal agitation. Most recent progress notes suggests improvement of confusion, seemingly more coherent, and no longer hallucinating. There was question if the agitation the patient is verbalizing is possibly related to his ongoing pain concerns and pain management consultation was requested. Previous pain medications had been tapered as well, patient is now only prescribed Tylenol and lidocaine patch - as concern the tramadol was contributing to the hallucinations. On today's assessment, the patient is heard to be yelling loudly from his room - audible in the nurse's station. He continues to scream "Nurse, come here nurse." Review of nursing notes suggests that the patient has been requesting frequent interventions, not clearly necessary. His agitation reportedly calms when staff enters the room and is able to address requests. Pt is seen today in his room, while lying in bed. He does appear to be in some discomfort, but no acute distress. He states to this provider "I've had better days". Pt states that he fell and hurt his knee, and the pain continues to bother him. He rates his knee and back pain a 6/10 both at rest and when in motion. Pt reports to this provider, "I'm bed refined, or stricken, whatever you want to call it." He states, "I feel like I'm ready to flip." When asked what this would look like, the patient is unable to give a clear description of his feelings or urges, simply stating, "like flipping out." Pt describes his mood currently as "sucky", but states prior to his hospitalization he had been doing well. Pt does reports some passive thoughts since his admission, but denies any clear SI or active desire to harm himself here in the hospital. He states he has not previously struggled with these thoughts and had never attempted to harm himself or end his life. Pt states he has not had any hallucinations for several days and feels he is less confused. He verbalizes his biggest concern at this time is "staring at these 4 rojas all day." He admits that he is bored and is interested in getting out of his room. The patient would be interested in going outside or being pushed around the floor. Pt was informed of periods of staff limitations and was informed that if his primary medical team was in agreement, he may be able to have a visitor take him outside. Pt was asked if there was anything additional that could be done to make him more comfortable. He states, "no, nothing. I [facility] to [facility]." This provider offered to have liaison bring a word search or activity book to keep his mind occupied, as he identified this as something her previously enjoyed doing. Toward this point in our conversation, the patient continuously nods off to sleep, but is able to be aroused by verbal stimuli. His willingness to continue to participate in conversation is limited, and he reports feeling tired. Pt den ied other needs or concerns at this time. Principal Diagnosis Confusion, agitation Discharge Exam Constitutional WD/WN, vitals as above not lethargic Eyes EOM intact bilaterally; no conjunctival abnormality ENMT external ear and nose normal, oropharynx normal Neck trachea midline, no thyromegaly normal visual inspection Respiratory normal respiratory effort, lungs clear to auscultation no respiratory distress Cardiovascular RRR, no murmur, no edema Gastrointestinal (Abdomen) Inspection/Auscultation: abdomen normal to inspection and + abdominal surgical incision (PEG tube site without erythema or discharge); abdomen not distended Percussion/Palpation: abdomen soft; abdomen nontender, no guarding and abdomen not rigid Musculoskeletal no cyanosis or clubbing, extremities motor strength 5/5 Skin no rashes, warm and dry Neurologic moves all extremities and awake Psychiatric Orientation: alert, oriented to person and cooperative Discharge Data Allergies Allergy/AdvReac Type Severity Reaction Status Date / Time No Known Drug Allergies Allergy Unknown Unverified 12/01/18 19:27 Consultations 12/01/18 20:05 ED Decision to Admit Stat 12/01/18 23:21 Consult Cardiology Routine Consult Case Management - Discharge Planning Routine 12/04/18 07:46 Consult Neurology Routine 12/08/18 10:32 Consult Gastroenterology Routine 12/12/18 09:35 Consult Pain Management Routine 12/12/18 12:00 Consult Psychiatry Routine Ordered Studies 12/01/18 17:54 CT abd pelvis wo con Stat CT cervical spine wo con Stat CT head/brain wo con Stat 12/01/18 21:15 CT lumbar spine wo con Stat 12/03/18 19:47 CT head/brain wo con Stat Hospital Course (1) Altered mental status: Patient presented with lethargy and was actually obtunded the first day or two of admission. He gradually woke up, but was very delirious for the first 2-3 days. Likely due to risperidone and possibly opiate medications. - Tapered risperidone during his admission. Stopped all together by 12/07. - Minimized opiate meds - Discharged on tramadol instead of oxycodone - By discharge, he was AAOx3, pleasant, conversant, and able to discuss his care. (2) Ileus: Vomited with his tube feeds during admission. KUBs showed ileus, but never an obstruction. Likely opiate-related as he seems to have had improvement with Relistor. - Continue mechanical soft diet - Holding all tube feeds at present; no need as he is taking in good PO intake. Will need to let the PEG mature, but then could remove in 2-3 months per general surgery. - Will need good bowel prep - Make sure he has soft BMs every day. (3) Anemia: Hgb was 7.4 on presentation. Heme-negative in the ED. Received 2 units PRBCs on 12/01 with an appropriate increase in hgb to 9.5. - By 12/03, hgb had spontaneously risen to 11.2. B12 & folate both good (>2000 and 13.0). Iron studies show low iron, transferrin, and TIBC. With caveat that he'd already received blood, this would indicate iron deficiency/anemia of chr onic disease. - Overall appears stable. Follow hemoglobin periodically. - Stopped his B12 supplement because of no need. (4) PAULA (acute kidney injury): Appeared to have been pre-renal. Now improved. - Continue to follow creatinine periodically. - Cr now at normal levels. - Cr was 0.9 on discharge. (5) Non-ST elevated myocardial infarction (non-STEMI): Asymptomatic. Seen by cardiology without any plan for intervention as his C in 07/2018 showed diffuse disease that was not amenable to intervention. - Continue medical management and follow-up (6) Depression: Continued current medications, appreciate psychiatry input. (7) Ischemic cardiomyopathy: Ischemic cardiomyopathy with EF 25-30% on echo on 12/02. - Asymptomatic today (8) Diabetes mellitus, type 2: A1c was 5.6% in 10/2018. In prior admissions, he has not needed any long- acting, just sliding scale. - Sliding scale insulin - Glycemic pharmacist consult (9) Abscess in epidural space of lumbar spine: CT of lumbar spine on 12/01 indicate no persistent abscess. Treatment upon discharge completed from last hospitalization: daptomycin IV, ceftriaxone IV, and caspofungin IV. - Hold any antibiotic or antifungal therapy, as treatment was completed. Ongoing vigilance and outpatient follow-up. -Pain seems to be heavily residual from this (10) BPH (benign prostatic hyperplasia): No noted symptoms today. (11) Obstructive sleep apnea: Outpatient follow-up Total Time Total Time Spent Total Time Spent (In Minutes): 35 Total Time Includes: Examination of the Patient and Communication With Other Providers Discharge Plan Discharge Items Patient Disposition: Transfer Half-Way Fac Reason For Visit: NSTEMI,ANEMIA,CHF Discharge Diagnosis: Confusion, agitation Discharge Goals: Decrease discomfort and Improve function Activity: Resume your previous activity Non-emergency contact: Primary Care Provider Call non-emergency contact if: your symptoms worsen, your pain is not controlled and your temperature is above 100.5 Follow-up/Referrals: [place] [Primary Care Provider] - Diet: Carb Consistent or DM2 and Heart Healthy Diet Texture: Mechanical soft (ground) Addtl Provider Instructions: Avoid anti-psychotics! The risperidone and Haldol were the cause of his confusion and lethargy. We also restarted his statin since he was off antibiotics. Finally, his oxycodone was stopped as he had an episode of ileus while here. We used tramadol and a small dose of gabapentin to avoid ileus as best as possible. No further needs for tube feeding. Will need that out in 2-3 months with general surgery. Prescriptions: New tramadol 50 mg Tablet 50 mg PO Q4H PRN (Reason: pain) Qty: 3 RF: 0 gabapentin 100 mg Capsule 100 mg PO BID Qty: 2 RF: 0 polyethylene glycol 3350 [Miralax] 17 gram Powder In Packet 17 g PO DAILY Qty: 1 RF: 0 lidocaine 5 % Adhesive Patch,Medicated 2 patch transdermal QAM Qty: 1 RF: 0 atorvastatin 40 mg Tablet 40 mg PO QAM Qty: 1 RF: 0 Continued acetaminophen [Tylenol] 325 mg Tablet 975 mg PO Q8 PRN (Reason: Fever Or Pain) RF: 0 divalproex 250 mg Tablet,Delayed Release (Dr/Ec) 250 mg PO Q12 RF: 0 metoprolol succinate [Toprol XL] 50 mg Tablet Extended Release 24 Hr 50 mg PO DAILY RF: 0 clopidogrel [Plavix] 75 mg Tablet 75 mg PO DAILY RF: 0 aspirin [Aspir-81] 81 mg Tablet,Delayed Release (Dr/Ec) 81 mg PO DAILY RF: 0 famotidine 20 mg Tablet 40 mg PO DAILY RF: 0 tamsulosin 0.4 mg Capsule 0.4 mg PO DAILY RF: 0 bisacodyl [Dulcolax (bisacodyl)] 10 mg Suppository 10 mg AR UD PRN (Reason: Constipation) RF: 0 insulin lispro [Humalog U-100 Insulin] 100 unit/mL Solution 1 sliding scale dose SUBCUT USEASDIRECTD RF: 0 finasteride 5 mg Tablet 5 mg PO DAILY RF: 0 cholecalciferol (vitamin D3) [Vitamin D3] 1,000 unit Tablet 2,000 unit PO DAILY RF: 0 Discontinued Glucerna 1.5 Terrell Liquid 300 ea feeding tube UD RF: 0 Eternal Feed Order 60 ml PEG HS RF: 0 Flush 120 ml PEG UD RF: 0 House Shake 1 dose PO TIDM RF: 0 Prune Juice/Stewed Prunes 1 dose PO UD PRN (Reason: Constipation) RF: 0 Glucerna 1.5 Terrell Liquid 300 ea feeding tube UD RF: 0 cyanocobalamin (vitamin B-12) [Vitamin B-12] 1,000 mcg Tablet 1,000 mcg PO DAILY RF: 0 haloperidol lactate [Haldol] 5 mg/mL Solution 1 mg IM Q6 PRN (Reason: Agitation) RF: 0 polyethylene glycol 3350 [Miralax] 17 gram/dose Powder 17 g PO Q6 RF: 0 heparin (porcine) 5,000 unit/mL Solution 5,000 unit SUBCUT TID RF: 0 risperidone [Risperdal] 0.5 mg Tablet 0.5 mg PO TID RF: 0 oxycodone 5 mg Tablet 5 mg PO Q4 PRN (Reason: moderate pain) RF: 0 magnesium oxide 400 mg magnesium Tablet 400 mg PO DAILY RF: 0 Stand-Alone Forms: [facility] Discharge Orders: Discharge Order (Routine); Ordered 12/16/18 Ordered By: Malik Fernandez Skilled Items Patient informed of condition?: Yes DNR: Yes Discharge Level of Care: Skilled Communicable Disease: No Discharge Prognosis: Improving Admission Data Admit Date/Time: 12/01/18 21:38 Attending Provider: Malik Fernandez Admit Provider: Sumanth Kenny Primary Care Provider: Philip Braxton Other Providers: Malik Fernandez ; Sumanth Kenny ; Ladarius Johnson ; Ivan Mims III ; Huy Lynn ; Serenity Chen ; Precious Chapa ; Juan Manning Service: Medical Other Interventions: Discharge Summary Assessment (RN) Last Done: 12/16/18 15:17
--- NOTE | 2018-12-22 05:36 | Coding Query ---
CODING QUERY To promote full compliance with coding requirements relating to patient care, provider participation is requested in all cases of death surveys coder uncertainty. Please assist us with the question(s) below: Coding Question(s): Metabolic Encephalopathy was listed in the 12/03 PN as a possible cause to his altered mental status but didn't make it to the DC summary, please clarify, to the best of your knowledge, if this was still a possible diagnosis or ruled out. Thank you so much for your help on this! Have a great day! ( ) Metabolic Encephalopathy, POA ( x ) Toxic Encephalopathy (due to medications), POA ( ) Other Encephalopathy, POA ( ) Altered Mental status, unspecified, POA ( ) Other, explain Thank you! Annette Trinidad Principal Diagnosis: "that condition established after study, to be chiefly responsible for occasioning the admission of the patient to the hospital for care." Co-Existing Principal Diagnosis: "when two or more diagnoses equally meet the criteria for principal diagnosis as determined by the circumstances of admission, diagnostic work up, and/or therapy provided, and the Alphabetic Index, Tabular List, or another coding guideline does not provide sequencing direction, any one of the diagnoses may be sequenced first." "When the physician has documented what appears to be a current diagnosis in the body of the record, but has not included the diagnosis in the final diagnostic statement, the physician should be asked whether the diagnosis should be added." (Source [facility] 2 QTR90. p3-4) FRED
== END 2018-12-16 15:45 | DRG 280 ==
LOC: ED 17:39 → SUATTDRO 21:38 → 2E 21:38 → 4E 12-06 18:01 → 2N 12-09 10:21

== ENCOUNTER 2019-01-14 05:23 | Inpatient (IN) ==
[2019-01-14] MEDS ORDERED: ONDANSETRON INJ 2 MG/ML 2 ML VIAL IV STA (05:44)
[2019-01-14] MEDS ORDERED: SODIUM CHLORIDE 0.9% 1000ML 1,000 ML IV SCH (05:45)
[2019-01-14 06:00] LABS: Basophils # (auto) 0.02 K/uL (0-0.2); Basophils % (auto) 0.2 %; Eosinophils # (auto) 0.17 K/uL (0-0.5); Eosinophils % (auto) 1.8 %; Hematocrit (blood only) 26.1 % (42-52); Hemoglobin 8.7 g/dL (14.0-18.0); Immature Granulocytes # (auto) 0.05 K/uL (0.00-0.02); Immature Granulocytes % (auto) 0.5 %; Lymphocytes % (auto) 9.5 %; Mean Corpuscular Hgb Conc 33.3 g/dL (32-36); Mean Corpuscular Volume 91.3 fL (80-100); Mean Platelet Volume 9.2 fL (7.4-10.4); Monocytes # (auto) 1.27 K/uL (0.11-0.59); Monocytes % (auto) 13.4 %; Neutrophils # (auto) 7.04 K/uL (1.4-6.5); Neutrophils % (auto) 74.6 %; Platelet Count 150 K/uL (130-400); RDW Coefficient of Variation 15.5 % (11.5-14.5); RDW Standard Deviation 52.3 fL (36.4-46.3); Red Blood Count 2.86 M/uL (4.7-6.1); White Blood Count 9.45 K/uL (4.8-10.8)
[2019-01-14 06:08] LABS: Albumin Level 2.4 gm/dl (3.4-5.0); BUN Creatinine Ratio 11.7 (10-20); Calcium 8.1 mg/dl (8.5-10.1); Creatinine Clr Calc Pharmacy 86.8 ml/min; Est GFR (African American) 98.8; Est GFR (Non-African American) 85.2; Potassium 3.8 mmol/L (3.5-5.1)
[2019-01-14] MEDS ORDERED: IOVERSOL 100ml IV PRN (06:10)
[2019-01-14 06:13] LABS: Albumin Globulin Ratio 0.6 (0.9-2); Bilirubin,Total 0.3 mg/dl (0.2-1); Creatine Kinase MB 2.8 ng/ml (0.5-3.6); Globulin 3.7 gm/dl (2.5-4.0); Total Protein 6.1 gm/dl (6.4-8.2); Troponin I 0.033 ng/ml (0-0.045)
[2019-01-14 06:15] LABS: Prothrombin Time 10.5 Seconds (9.0-12.0)
[2019-01-14 06:16] LABS: iSTAT Creatinine 0.9 mg/dl (0.6-1.3); iSTAT Hemoglobin 8.2 g/dl (14.0-18.0); iSTAT Ionized Calcium 1.22 mmol/l (1.12-1.32); iSTAT Potassium 3.9 mEq/L (3.3-5.0)
--- NOTE | 2019-01-14 07:10 | XRay Report ---
SINGLE VIEW CHEST CLINICAL HISTORY: Generalized weakness. FINDINGS: An AP, portable, upright chest radiograph is compared to study dated 12/03/2018. The examina tion is degraded by portable technique and patient rotation. A single lead cardiac AICD is unchanged in position and partially obscures the left upper chest. The patient is status post midline sternotom y. The heart is enlarged and there is atherosclerotic calcification of the thoracic aorta. The pulmon yunior vasculature is noncongested. Chronic interstitial thickening is similar to previous. Trace pleura l effusions are noted. There is no airspace consolidation typical for pneumonia. No pneumothorax is s een. The skeletal structures are osteopenic. The bony thorax is grossly intact. Fusion hardware is no andrew in the lower cervical spine and the upper lumbar spine. IMPRESSION: 1. Cardiomegaly and AICD. There is no radiographic evidence of congestive failure. 2. Trace pleural effusions. Electronically signed by: Vinicius Almaraz M.D. 01/14/2019 7:08 AM
--- NOTE | 2019-01-14 07:27 | CT Scan Report ---
ABDOMEN AND PELVIS CT WITH IV CONTRAST CT DOSE: 788.25 mGy.cm HISTORY: Acute diarrhea with abdominal pain and distention Pt c/o abd distension TECHNIQUE: Multiaxial CT images of the abdomen and pelvis were performed following the use of intrave nous contrast. A dose lowering technique was utilized adhering to the principles of ALARA. COMPARISON STUDY: CT abdomen and pelvis 12/01/2018 FINDINGS: Small bilateral pleural effusions appear unchanged. Minimal compressive dependent bibasilar atelectas is. There is no pneumatosis or pneumoperitoneum. The imaged inferior cardiac chambers are enlarged. P rior median sternotomy. Partially imaged pacer leads are noted in conjunction with coronary arterial calcifications. No pericardial effusion. Contracted gallbladder. The liver, spleen, pancreas and adrenal glands are unremarkable. Horseshoe ki dney. There are a few cysts noted throughout the right kidney measuring up to 1.9 cm. There is a [place] bowling nonobstructing calculus noted about the inferior pole right kidney, image 245 series 3. No urete ral calculi or obstructive uropathy. Renal vascular calcifications are noted. Mild distention of the urinary bladder with circumferential wall thickening and perivesicular stranding. Calcified plaque of the abdominal aorta without aneurysm. No adenopathy. Mild nonspecific wall thickening about the distal esophagus. Duodenal diverticulum. Scattered air-flu id levels throughout nondilated loops of small bowel, likely physiologic. Nonspecific wall thickening of the sigmoid colon and rectum. Colonic diverticulosis without acute diverticulitis. Additional wal l thickening is noted probably through the transverse colon and cecum. Fluid-filled appendix is noted without evidence of acute inflammation. Mild generalized body wall edema and body wall edema. Degene rative changes of the spine, pelvis and hips. Extensive postoperative changes of the spine are redemo nstrated. No evidence of hardware fracture or loosening. IMPRESSION: 1. No bowel obstruction or pneumoperitoneum. 2. Multifocal wall thickening about the colon and rectum is noted which may be secondary to partial d istention or a nonspecific proctocolitis. Correlate clinically. 3. Colonic diverticulosis without acute diverticulitis. 4. Urinary bladder wall thickening suspicious for cystitis. Correlate with urinalysis. 5. Horseshoe kidney with nonobstructing nephrolithiasis. 6. Unchanged small bilateral pleural effusions. 7. Additional findings as above. Electronically signed by: Kamari Veras M.D. 01/14/2019 7:25 AM
[2019-01-14 08:07] LABS: Appearance Urine Cloudy (Clear); Bacteria Urine Automated 4+ (Negative); Bilirubin Urine Negative (Negative); Blood Urine Trace (Negative); Cast Urine Automated 0 /lpf (0-5); Color Urine Yellow; Epithelial Cell Urine Auto 0-5 /lpf (0-5); Glucose Urine UA Negative (Negative); Ketones Urine Negative (Negative); Leukocyte Esterase Urine 3+ (Negative); Nitrite Urine Negative (Negative); Protein Urine Negative (Negative); RBC Urine Automated 0-4 /hpf (0-4); Specific Gravity Urine 1.019 (1.000-1.030); Urobilinogen Urine Negative (Negative); WBC Urine Automated >30 /hpf (0-5); pH Urine 5.5 (4.5-7.5)
--- NOTE | 2019-01-14 08:13 | History & Physical Report ---
Date of Service January 14, 2019 Assessment & Plan (1) Colitis: acute onset last night, several bouts of diarrhea, abdominal pain, nausea and vomiting CT shows non-specific colitis certainly high risk for C diff, samples taken start on Vancomycin 250mg PO QID until results back if positive for C diff will start Questran (2) Altered mental status: slightly lethargic but he is oriented to person, place and time likely due to infection and some mild dehydration this would be metabolic encephalopathy supportive care, treat colitis, IV fluids (3) Anemia: Hb is 8.7 on admission is lower than one month ago when it was 10.9 on discharge during last admission he was transfused two units anemia work up completed and was normal repeat Hb tomorrow (4) Coronary artery disease: h/o CAD no chest pain continue aspirin and Plavix (5) Ischemic cardiomyopathy: some edema in left leg but otherwise examines euvolemic cautious administration of IV fluids in setting of diarrhea and dehydration (6) Stage III chronic kidney disease: Cr is stable at 1.0 continue to monitor (7) Chronic systolic heart failure: examines euvolemic at this time (8) Low back pain: pain is controlled with Ultram was taking Oxycodone in recent past so this is improvement (9) Urinary retention: chronic indwelling luna (10) Weakness of lower extremity: (11) Edema: (12) Uncontrolled type 2 diabetes mellitus with neurologic complication, with long-term current use of insulin: use Novolog SS monitor for hypoglycemia diabetic diet (13) Obesity, Class II, BMI 35-39.9: (14) Anxiety: Lorazepam PRN History of Present Illness Chief Complaint: I have diarrhea Primary Care Provider: [facility] 68 yo male with history of lumbar decompression complicated by repeated epidural abscesses after surgery. Taken for several I&D by Dr. Morales. Most recently he completed prolonged treatment with Daptomycin, Rocephin and Caspofungin. His last admission was in December 2018 and he had altered mental status attributed to opiates and risperdal. Mental status improved with stopping the risperdal and changing to Ultram. At that time he had a PEG tube which had been placed due to poor oral intake. However, he was eating better and diet was advance. Two days ago he had the PEG tube removed. He has been tolerating a mechanical soft diet at [facility]. He continues to participate with therapy. Per the patient he is not quite standing, he is not walking but he is improving with transfers. His chief complaint is diarrhea that started last night. He has associated abdominal pain and he vomited several times. No blood in the diarrhea to his knowledge. No fever or chills. He typically does not have loose stools. No history of C diff colitis. In the ED his vitals were stable with exception of some tachycardia in low 100s. WBC normal at 9, Hb 8.7, Cr is 0.9 and electrolytes stable. Troponin 0.03. CXR with no acute changes. CT abdomen/pelvis shows non-specific colitis in the rectum and colon. Diverticulosis but no diverticulitis. Treated with IV fluids and stool culture and C diff sent for. Allergies Allergy/AdvReac Type Severity Reaction Status Date / Time No Known Drug Allergies Allergy Unknown Unverified 01/14/19 05:45 Home Medications Home Medications Medication Instructions Recorded Confirmed Type acetaminophen [Tylenol] 650 mg PO Q8 PRN 12/01/18 01/14/19 History aspirin [Aspir-81] 81 mg PO DAILY 12/01/18 01/14/19 History bisacodyl [Dulcolax (bisacodyl)] 10 mg MS UD PRN 12/01/18 01/14/19 History cholecalciferol (vitamin D3) 2,000 unit PO DAILY 12/01/18 01/14/19 History [Vitamin D3] clopidogrel [Plavix] 75 mg PO DAILY 12/01/18 01/14/19 History divalproex 250 mg PO Q12 12/01/18 01/14/19 History finasteride 5 mg PO DAILY 12/01/18 01/14/19 History insulin lispro [Humalog U-100 1 sliding scale dose SUBCUT 12/01/18 01/14/19 History Insulin] USEASDIRECTD metoprolol succinate [Toprol XL] 50 mg PO DAILY 12/01/18 01/14/19 History atorvastatin 40 mg PO QAM #1 tab 12/16/18 01/14/19 Rx gabapentin 100 mg PO BID #2 cap 12/16/18 01/14/19 Rx polyethylene glycol 3350 [Miralax] 17 g PO DAILY #1 ea 12/16/18 01/14/19 Rx tramadol 50 mg PO Q4H PRN #3 tab 12/16/18 01/14/19 Rx Fleet Enema 118 ml MS HS PRN 01/09/19 01/14/19 History lorazepam 0.5 mg PO Q6H PRN 01/09/19 01/14/19 History magnesium hydroxide [Milk of 30 ml PO DAILY PRN 01/09/19 01/14/19 History Magnesia] lidocaine 2 patch TRANSDERMAL DIRECTED 01/14/19 01/14/19 History tamsulosin [Flomax] 0.4 mg PO HS 01/14/19 01/14/19 History Past Med/Surg History Medical History Vitamin D deficiency (Acute) Urinary incontinence (Acute) Thyroid disorder (Acute) Spinal stenosis (Acute) Sleep-wake schedule disorder, delayed phase type (Acute) Restless legs syndrome (Acute) Nicotine dependence (Acute) Dyslipidemia (Acute) Diverticulosis (Acute) Disc degeneration, lumbar (Acute) Diabetic retinopathy (Acute) Diabetic peripheral neuropathy (Acute) Depression (Acute) Carotid artery stenosis (Acute) Benign localized hyperplasia of prostate with urinary obstruction (Acute) Anxiety (Acute) Anemia (Acute) Abscess in epidural space of lumbar spine (Acute) [employer] 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 Admitted [facility] 10/18/11 for onset of incapacitating cervical myelopathy. Spinal tap showed [employer] Lyme disease, MRI showed severe spinal cord compression at C3-4 with myelomalacia and intramedullary mass. Pt had c-spine surgery, subsequent prolonged hospital admission, complicated post-op course. Sudden cardiac Post-op 2011 [facility]. Now has ICD. Sleep apnea PT NOT CURRENTLY CPAP 2/2 recurrent sinus infections. WILL SEE SLEEP MEDICINE/DR. ARCHULETA LATE 2017 Diabetes mellitus, type 2 IDDM. Degenerative disc disease Ischemic cardiomyopathy EF WNL 11/2017 CAD (coronary artery disease) s/p triple CABG 2003 Full dentures (Acute) HTN (hypertension) (Acute) CHF (congestive heart failure) Chronic kidney disease, stage III (moderate) Chronic sinusitis Dysphagia History of non-ST elevation myocardial infarction (NSTEMI) ICD (implantable cardioverter-defibrillator) in place Surgical History History of esophagogastroduodenoscopy (EGD) History of colonoscopy History of cardiac cath 2011 AT [facility] - UNSURE IF HE HAS STENTS. Difficult airway for intubation History of tracheostomy Hx of transurethral resection of prostate History of cataract extraction with lens replacement Hx of tonsillectomy (Acute) H/O cervical spine surgery (Acute) ACDI C3-4, C7 corpectomy, removal of C7 intramedullary mass. History of lumbar spinal fusion (Acute) S/P triple vessel [place]Acute[place] [facility] [place] History of incision and drainage Lumbar spine on 08/11; complicated by difficult intubation with only #6.5 ETT able to be placed and patient kept intubated post op History of lumbar surgery 09/10/18 Glidescope 3 okay visualization but difficulty passing ETT, unable to pass 8.0, able to pass 7.0 with some difficulty Family History Mother , age 68 of COPD and respiratory issues COPD (chronic obstructive pulmonary disease) Father , in his 40s of an [place] Myocardial infarction Other Diabetes Hypertension No pertinent family history Social History Preferred Language: Portuguese Communication Ability: Effective Visual Impairment: No Limitations Hearing Ability: Normal Personal Care Home Administrator Required: No Beliefs That Will Affect Care: None marital status: Current Living Situation: Correction Current Living Situation Comment: temporarily living at [facility] 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al status: retired and disabled 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: 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 [employer] Feels Safe at Home: Yes Smoking Status: Never smoker Tobacco Type: smokeless tobacco ; Second Hand Exposure: No ; Hx Alcohol Use: No Hx Substance Use: No Review of Systems Review of Systems: All systems reviewed & are unremarkable except as noted in HPI & below Constitutional: + fatigue and + weakness; no fever, no chills and no sweats Respiratory: no cough and no dyspnea Cardiovascular: + edema; no chest pain, no palpitations and no syncope Gastrointestinal: + abdominal pain, + nausea, + vomiting and + diarrhea/loose stools; no constipation and no blood in stools Genitourinary: + difficulty urinating (luna) Musculoskeletal: + back pain (very mild) Integumentary: + wounds (left heel ulcer) Psychiatric: no depression and no anxiety Physical Exam Constitutional: WD/WN, vitals as above + obese; no acute distress Eyes: PERRL, conjunctivae normal, anicteric sclerae ENMT: external ear and nose normal, oropharynx normal Neck: trachea midline, no thyromegaly Respiratory: normal respiratory effort, lungs clear to auscultation Cardiovascular: Rate/Rhythm: regular rate and regular rhythm Heart Sounds: normal S1 and normal S2; no murmur Extremities: + edema (left leg, pitting) Gastrointestinal (Abdomen): normal bowel sounds, soft, nontender, no hepatosplenomegaly Musculoskeletal: Head/Neck/Chest: normocephalic and head atraumatic Spine: + limited thoraco-lumbar ROM Extremities: + limited ROM of extremities (legs) and + abnormal strength (generalized weakness in legs); no cyanosis, no clubbing and no petechiae Skin: + ulcer (left heel pressure ulcer) Neurologic: patellar DTR's 2+ bilat, sensation intact and PERRL, EOMI, accommodation nl, no face palsy, no dysarthria Psychiatric: Orientation: oriented x 3; + not alert (slightly tired) Affect: + flat affect Lymphatic: no cervical or axillary lymphadenopathy Results & Data Vital Signs (Past 12 Hours) Vital Signs Temp Pulse Pulse Resp BP BP Pulse Ox 01/14/19 07:31 102 H 20 135/74 100 01/14/19 07:24 95 01/14/19 07:00 94 H 20 115/62 94 01/14/19 06:25 89 14 113/62 95 01/14/19 05:53 98 01/14/19 05:44 37.1 C 88 88 16 120/66 98 Laboratory Results Laboratory Results - last 24 hr 01/14/19 01/14/19 01/14/19 05:33 05:33 05:33 WBC 9.45 RBC 2.86 L Hgb 8.7 L POC Hgb Hct 26.1 L POC Hct MCV 91.3 MCH 30.4 MCHC 33.3 RDW Std Deviation 52.3 H RDW Coeff of Norbert 15.5 H Plt Count 150 MPV 9.2 Immature Gran % (Auto) 0.5 Neut % (Auto) 74.6 Lymph % (Auto) 9.5 [place] % (Auto) 13.4 Eos % (Auto) 1.8 Baso % (Auto) 0.2 Immature Gran # (Auto) 0.05 H Neut # (Auto) 7.04 H Lymph # (Auto) 0.90 L [place] # (Auto) 1.27 H Eos # (Auto) 0.17 Baso # (Auto) 0.02 PT 10.5 INR 1.0 APTT 28.0 PTT Ratio 1.0 POC Sodium Sodium 134 L POC Potassium Potassium 3.8 POC Chloride Chloride 103 Carbon Dioxide 24 POC Total CO2 Anion Gap 7.0 POC Anion Gap POC BUN BUN 11 Creatinine 0.93 POC Creatinine Est Cr Clr Drug Dosing 86.8 Est GFR ( Amer) 98.8 Est GFR (Non-Af Amer) 85.2 BUN/Creatinine Ratio 11.7 Glucose 152 H POC Glucose (other) Calcium 8.1 L POC Ioniz Calcium Gy Total Bilirubin 0.3 AST 12 L ALT 14 Alkaline Phosphatase 74 Total Creatine Kinase 63 CK-MB (CK-2) 2.8 CK/CKMB % Calc 4.4 H Troponin I 0.033 Total Protein 6.1 L Albumin 2.4 L Globulin 3.7 Albumin/Globulin Ratio 0.6 L Urine Color Urine Appearance Urine pH Ur Specific [place] Urine Protein Urine Glucose (UA) Urine Ketones Urine Blood Urine Nitrite Urine Bilirubin Urine Urobilinogen Ur Leukocyte Esterase Urine WBC (Auto) Urine RBC (Auto) U Hyaline Cast (Auto) U Epithel Cells (Auto) Urine Bacteria (Auto) Blood Type Antibody Screen 01/14/19 01/14/19 01/14/19 05:33 06:01 07:55 WBC RBC Hgb POC Hgb 8.2 L Hct POC Hct 24 L MCV MCH MCHC RDW Std Deviation RDW Coeff of Norbert Plt Count MPV Immature Gran % (Auto) Neut % (Auto) Lymph % (Auto) [place] % (Auto) Eos % (Auto) Baso % (Auto) Immature Gran # (Auto) Neut # (Auto) Lymph # (Auto) [place] # (Auto) Eos # (Auto) Baso # (Auto) PT INR APTT PTT Ratio POC Sodium 133 L Sodium POC Potassium 3.9 Potassium POC Chloride 99 L Chloride Carbon Dioxide POC Total CO2 21 L Anion Gap POC Anion Gap 19.0 POC BUN 10 BUN Creatinine POC Creatinine 0.9 Est Cr Clr Drug Dosing Est GFR ( Amer) Est GFR (Non-Af Amer) BUN/Creatinine Ratio Glucose POC Glucose (other) 156 H Calcium POC Ioniz Calcium Yg 1.22 Total Bilirubin AST ALT Alkaline Phosphatase Total Creatine Kinase CK-MB (CK-2) CK/CKMB % Calc Troponin I Total Protein Albumin Globulin Albumin/Globulin Ratio Urine Color Yellow Urine Appearance Cloudy A Urine pH 5.5 Ur Specific [place] 1.019 Urine Protein Negative Urine Glucose (UA) Negative Urine Ketones Negative Urine Blood Trace H Urine Nitrite Negative Urine Bilirubin Negative Urine Urobilinogen Negative Ur Leukocyte Esterase 3+ H Urine WBC (Auto) >30 H Urine RBC (Auto) 0-4 U Hyaline Cast (Auto) 0 U Epithel Cells (Auto) 0-5 Urine Bacteria (Auto) 4+ H Blood Type A Positive Antibody Screen NEGATIVE Diagnostic Findings CT ABDOMEN/PELVIS IMPRESSION: 1. No bowel obstruction or pneumoperitoneum. 2. Multifocal wall thickening about the colon and rectum is noted which may be secondary to partial distention or a nonspecific proctocolitis. Correlate clinically. 3. Colonic diverticulosis without acute diverticulitis. 4. Urinary bladder wall thickening suspicious for cystitis. Correlate with urinalysis. 5. Horseshoe kidney with nonobstructing nephrolithiasis. 6. Unchanged small bilateral pleural effusions. 7. Additional findings as above. Code Status & VTE Plan Code Status DNR VTE Prophylaxis Plan VTE Prophylaxis will be ordered: Yes PG Care Time/CCT Total # of Minutes Spent Total Time Spent with Patient: Total time spent is greater than 50% in coordination of care (as documented) at patient's floor/unit and/or counseling patient: (1) Low back pain Back pain laterality: midline Chronicity: acute Sciatica presence: without sciatica Qualified Code(s): M54.5 - Low back pain (2) Anemia Anemia type: unspecified type Qualified Code(s): D64.9 - Anemia, unspecified
[2019-01-14] MEDS: NSS + 20MEQ KCL 20 MEQ/1,000 ML BAG IV SCH ×2 (10:43→21:42)
[2019-01-14] MEDS: VANCOMYCIN HCL 250 MG/5 ML SOLN PO SCH ×4 (11:26→23:45)
[2019-01-14] MEDS: CLOPIDOGREL BISULFATE 75 MG TAB PO SCH (11:27)
[2019-01-14] MEDS: ATORVASTATIN 40 MG TAB PO SCH (11:27)
[2019-01-14] MEDS: RASPBERRY SYRUP 5 ML UDP PO SCH ×3 (11:27→23:45)
[2019-01-14] MEDS: GABAPENTIN 100 MG CAP PO SCH ×2 (11:27→20:04)
[2019-01-14] MEDS: DIVALPROEX DELAY RELEASE 250 MG TABEC PO SCH ×2 (11:27→20:04)
[2019-01-14] MEDS: LIDOCAINE 5% 1 PATCH TD SCH (11:28)
[2019-01-14] MEDS: METOPROLOL SUCC 50MG EXT REL TAB PO SCH (11:28)
[2019-01-14] MEDS: ASPIRIN 81 MG ECTAB PO SCH (11:28)
[2019-01-14] MEDS: INSULIN ASPART 100 UNITS/ML 3 ML PEN SC SCH ×3 (12:08→20:05)
[2019-01-14] MEDS: NYSTATIN OINT 15 GM TUBE EXT SCH ×2 (13:00→20:04)
[2019-01-14] MEDS: HEPARIN SOD 5,000 UNIT/0.5 ML VIAL SQ SCH ×2 (13:36→21:29)
[2019-01-14] MEDS: TAMSULOSIN HCL 0.4 MG CAP PO SCH (20:04)
[2019-01-14 21:10] LABS: Cdiff Antigen Positive
[2019-01-14 21:12] LABS: Cdiff Toxin A+B Positive Cdiff Toxin (Negative)
--- NOTE | 2019-01-14 22:42 | Emergency Department Note ---
Entered by Doreen Garcia acting as a scribe for Joseph Sotelo MD History of Present Illness General Chief complaint: Diarrhea Stated complaint: DIARRHEA/VOMITING Time Seen by Provider: 01/14/19 05:35 Source: patient and other (Nurse) Mode of arrival: EMS History of Present Illness Onset (ago): hour(s) 5 Location: buttocks (Diarrhea) Pain Consistency: + other (Persistent) Maximum Pain Intensity: 5 Quality: + other (Diarrhea) Associated symptoms: + nausea/vomiting and + other (Abdominal pain, buttock pain) Treatments prior to arrival: none The patient is a 68 year old male presenting to the Emergency Department via EMS complaining of persistent diarrhea starting 5 hours ago. The patient reports that he has been experiencing multiple episodes of diarrhea. He states that he is nauseous and has vomited. He explains that he has mild abdominal pain. He notes that his buttock is painful. 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 The nurse reports that the patient had his PEG tube removed 3 days ago. Home Medications Home Medications Medication Instructions Recorded Confirmed Type acetaminophen [Tylenol] 650 mg PO Q8 PRN 12/01/18 01/14/19 History aspirin [Aspir-81] 81 mg PO DAILY 12/01/18 01/14/19 History bisacodyl [Dulcolax (bisacodyl)] 10 mg NJ UD PRN 12/01/18 01/14/19 History cholecalciferol (vitamin D3) 2,000 unit PO DAILY 12/01/18 01/14/19 History [Vitamin D3] clopidogrel [Plavix] 75 mg PO DAILY 12/01/18 01/14/19 History divalproex 250 mg PO Q12 12/01/18 01/14/19 History finasteride 5 mg PO DAILY 12/01/18 01/14/19 History insulin lispro [Humalog U-100 1 sliding scale dose SUBCUT 12/01/18 01/14/19 History Insulin] USEASDIRECTD metoprolol succinate [Toprol XL] 50 mg PO DAILY 12/01/18 01/14/19 History atorvastatin 40 mg PO QAM #1 tab 12/16/18 01/14/19 Rx gabapentin 100 mg PO BID #2 cap 12/16/18 01/14/19 Rx polyethylene glycol 3350 [Miralax] 17 g PO DAILY #1 ea 12/16/18 01/14/19 Rx tramadol 50 mg PO Q4H PRN #3 tab 12/16/18 01/14/19 Rx Fleet Enema 118 ml NJ HS PRN 01/09/19 01/14/19 History lorazepam 0.5 mg PO Q6H PRN 01/09/19 01/14/19 History magnesium hydroxide [Milk of 30 ml PO DAILY PRN 01/09/19 01/14/19 History Magnesia] lidocaine 2 patch TRANSDERMAL DIRECTED 01/14/19 01/14/19 History tamsulosin [Flomax] 0.4 mg PO HS 01/14/19 01/14/19 History Allergies Allergy/AdvReac Type Severity Reaction Status Date / Time No Known Drug Allergies Allergy Unknown Unverified 01/14/19 05:45 Past Med/Surg History Medical History Vitamin D deficiency (Acute) Urinary incontinence (Acute) Thyroid disorder (Acute) Spinal stenosis (Acute) Sleep-wake schedule disorder, delayed phase type (Acute) Restless legs syndrome (Acute) Nicotine dependence (Acute) Dyslipidemia (Acute) Diverticulosis (Acute) Disc degeneration, lumbar (Acute) Diabetic retinopathy (Acute) Diabetic peripheral neuropathy (Acute) Depression (Acute) Carotid artery stenosis (Acute) Benign localized hyperplasia of prostate with urinary obstruction (Acute) Anxiety (Acute) Anemia (Acute) Abscess in epidural space of lumbar spine (Acute) [employer]OR [employer] NEGATIVE 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 Admitted [facility] 10/18/11 for onset of incapacitating cervical myelopathy. Spinal tap showed [employer] NEGATIVE Lyme disease, MRI showed severe spinal cord compression at C3-4 with myelomalacia and intramedullary mass. Pt had c-spine surgery, subsequent prolonged hospital admission, complicated post-op course. Sudden cardiac Post-op 2011 [facility]. Now has ICD. Sleep apnea PT NOT CURRENTLY CPAP 2/2 recurrent sinus infections. WILL SEE SLEEP MEDICINE/DR. ARCHULETA LATE 2017 Diabetes mellitus, type 2 IDDM. Degenerative disc disease Ischemic cardiomyopathy EF WNL 11/2017 CAD (coronary artery disease) s/p triple CABG 2002 Full dentures (Acute) HTN (hypertension) (Acute) CHF (congestive heart failure) Chronic kidney disease, stage III (moderate) Chronic sinusitis Dysphagia History of non-ST elevation myocardial infarction (NSTEMI) ICD (implantable cardioverter-defibrillator) in place Surgical History History of esophagogastroduodenoscopy (EGD) History of colonoscopy History of cardiac cath 2012 AT [facility] - UNSURE IF HE HAS STENTS. Difficult airway for intubation History of tracheostomy Hx of transurethral resection of prostate History of cataract extraction with lens replacement Hx of tonsillectomy (Acute) H/O cervical spine surgery (Acute) ACDI C3-4, C7 corpectomy, removal of C7 intramedullary mass. History of lumbar spinal fusion (Acute) S/P triple vessel bypass [place]Acute[place] [facility] [place] History of incision and drainage Lumbar spine on 08/11; complicated by difficult intubation with only #6.5 ETT able to be placed and patient kept intubated post op History of lumbar surgery 09/10/18 Glidescope 3 okay visualization but difficulty passing ETT, unable to pass 8.0, able to pass 7.0 with some difficulty Family History Mother , age 68 of COPD and respiratory issues COPD (chronic obstructive pulmonary disease) Father , in his 40s of an CA Myocardial infarction Other Diabetes Hypertension No pertinent family history Social History Preferred Language: [place] Communication Ability: Effective Visual Impairment: No Limitations Hearing Ability: Normal 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 and A total of 10 systems reviewed and were otherwise negative Physical Exam Vital Signs Vital Signs - 24 hr 01/14/19 05:44 01/14/19 05:53 01/14/19 06:25 Temperature 37.1 C Temperature Source Oral Sepsis Recent Fever Within 48 Hours No Sepsis New/Unexplained Change in Mental Status No Sepsis Action Taken by Nursing No Action Required Pulse Rate 88 Pulse Rate [Apical] 88 89 Pulse Rate from SpO2 Sensor Pulse Rhythm Irregular Pulse Rhythm [Apical] Irregular Irregular Respiratory Rate 16 14 Respiratory Effort / Characteristics Non-Labored Spontaneous Non-Labored Spontaneous Respiratory Depth Normal Normal Respiratory Pattern Regular Regular Blood Pressure 120/66 Blood Pressure [Right Arm] 113/62 Blood Pressure Mean 84 Blood Pressure Mean [Right Arm] 79 Pulse Oximetry 98 98 95 Oxygen Delivery Method Room Air Room Air Room Air Oxygen Flow Rate 01/14/19 07:00 01/14/19 07:24 01/14/19 07:31 Temperature Temperature Source Sepsis Recent Fever Within 48 Hours Sepsis New/Unexplained Change in Mental Status Sepsis Action Taken by Nursing Pulse Rate 102 H Pulse Rate [Apical] 94 H Pulse Rate from SpO2 Sensor 101 H Pulse Rhythm Pulse Rhythm [Apical] Respiratory Rate 20 20 Respiratory Effort / Characteristics Respiratory Depth Respiratory Pattern Blood Pressure 135/74 Blood Pressure [Right Arm] 115/62 Blood Pressure Mean 94 Blood Pressure Mean [Right Arm] 79 Pulse Oximetry 94 95 100 Oxygen Delivery Method Room Air Oxymask Oxymask Oxygen Flow Rate 2 2 GENERAL: Awake, alert, well-appearing, in no acute distress HENT: Normocephalic, atraumatic. Oropharynx unremarkable. EYES: Normal conjunctiva. Sclera non-icteric. NECK: Supple. No nuchal rigidity. FROM. No JVD. RESPIRATORY: Clear to auscultation. CARDIAC: Regular rate, normal rhythm. Extremities warm and well perfused. Pulses equal. ABDOMEN: Soft, non-distended. No tenderness to palpation. No rebound or guarding. No masses. RECTAL: Deferred. MUSCULOSKELETAL: Chest examination reveals no tenderness. The back is symmetrical on inspection without obvious abnormality. There is no CVA tenderness to palpation. No joint edema. LOWER EXTREMITIES: Calves are equal size bilaterally and non-tender. No edema. No discoloration. NEURO: Normal sensorium. No sensory or motor deficits noted. SKIN: No rash or jaundice noted. 2 inch by 2 inch ulcer to left heal. Chronic scar to lower lumbar region that is healing well. Course 05: The patient was evaluated in room A3, and a complete history and physical examination were performed. 0600: I reevaluated the patient at this time. Administered Medications Aspirin (Ecotrin Ectab) 81 mg PO DAILY [facility] Stop: 02/13/19 10:29 Last Admin: 01/14/19 11:28 Dose: 81 mg Documented by: [id number] Atorvastatin Calcium (Lipitor) 40 mg PO QAM [facility] Stop: 02/13/19 10:29 Last Admin: 01/14/19 11:27 Dose: 40 mg Documented by: [id number] Clopidogrel Bisulfate (Plavix) 75 mg PO DAILY [facility]AYLYNN Stop: 02/13/19 10:29 Last Admin: 01/14/19 11:27 Dose: 75 mg Documented by: [id number] Divalproex Sodium (Depakote Delay Release) 250 mg PO Q12 [facility] Stop: 02/13/19 10:29 Last Admin: 01/14/19 20:04 Dose: 250 mg Documented by: [id number] Admin: 01/14/19 11:27 Dose: 250 mg Documented by: [id number] Gabapentin (Neurontin) 100 mg PO BID [facility] Stop: 02/13/19 10:29 Last Admin: 01/14/19 20:04 Dose: 100 mg Documented by: [id number] Admin: 01/14/19 11:27 Dose: 100 mg Documented by: [id number] Heparin Sodium (Porcine) (Heparin Sodium (Porcine)) 5,000 units SQ Q8 [facility] Stop: 02/13/19 13:59 Last Admin: 01/14/19 21:29 Dose: Not Given Documented by: [id number] Admin: 01/14/19 13:36 Dose: 5,000 units Documented by: [id number] Cosigned by: [id number] Potassium Chloride/Sodium Chloride (Normal Saline W/20 Meq Kcl) 20 meq in 1,000 mls @ 80 mls/hr IV .[id number] [facility] Stop: 02/13/19 10:29 Last Admin: 01/14/19 21:42 Dose: 80 mls/hr Documented by: [id number] Infusion: 01/14/19 21:42 Dose: 80 mls/hr Documented by: [id number] Admin: 01/14/19 10:43 Dose: 80 mls/hr Documented by: [id number] Insulin Aspart (Novolog Flexpen) 0 units SC ACHS [facility] Stop: 02/13/19 11:29 Last Admin: 01/14/19 20:05 Dose: Not Given Documented by: [id number] Cosigned by: [id number] Admin: 01/14/19 17:08 Dose: 3 units Documented by: [id number] Cosigned by: [id number] Admin: 01/14/19 12:08 Dose: Not Given Documented by: [id number] Cosigned by: [id number] Lidocaine (Lidoderm 5%) 2 patch TD DAILY [facility] Stop: 02/13/19 10:29 Last Admin: 01/14/19 11:28 Dose: 2 patch Documented by: [id number] Metoprolol Succinate (Toprol Xl) 50 mg PO DAILY [facility] Stop: 02/13/19 10:29 Last Admin: 01/14/19 11:28 Dose: 50 mg Documented by: [id number] Miscellaneous (Remove Lidoderm Patch) 2 ea N/A DAILY@2100 [facility] Stop: 02/13/19 20:59 Last Admin: 01/14/19 20:05 Dose: Not Given Documented by: [id number] Nystatin (Mycostatin) 1 appln EXT BID [facility] Stop: 02/13/19 12:29 Last Admin: 01/14/19 20:04 Dose: 1 appln Documented by: [id number] Admin: 01/14/19 13:00 Dose: 1 appln Documented by: [id number] Raspberry (Raspberry) 5 ml PO Q6H [facility] Stop: 01/28/19 10:29 Last Admin: 01/14/19 17:07 Dose: 5 ml Documented by: [id number] Admin: 01/14/19 11:27 Dose: 5 ml Documented by: [id number] Tamsulosin HCl (Flomax) 0.4 mg PO HS [facility] Stop: 02/13/19 20:59 Last Admin: 01/14/19 20:04 Dose: 0.4 mg Documented by: [id number] Vancomycin HCl (Vancomycin Hcl) 250 mg PO Q6 [facility] Stop: 01/24/19 10:29 Last Admin: 01/14/19 17:07 Dose: 250 mg Documented by: [id number] Admin: 01/14/19 13:14 Dose: 250 mg Documented by: [id number] Admin: 01/14/19 11:26 Dose: 250 mg Documented by: [id number] Discontinued Medications Sodium Chloride (Nss 1000ml) 1,000 mls @ 100 mls/hr IV .Q10H [facility] Stop: 01/14/19 15:44 Last Infusion: 01/14/19 09:10 Dose: 0 mls/hr Documented by: [id number] Admin: 01/14/19 06:02 Dose: 100 mls/hr Documented by: [id number] Ioversol (Optiray 320 100ml) 92 ml IV ONCE PRN PRN Reason: Interaction Checking Stop: 01/18/19 06:09 Last Admin: 01/14/19 06:10 Dose: 1 ml Documented by: [id number] Ondansetron HCl (Zofran) 4 mg IV ONE STA Stop: 01/14/19 05:45 Last Admin: 01/14/19 06:02 Dose: 4 mg Documented by: [id number] Medical Decision Making Differential Diagnosis Differential Diagnosis includes but is not limited to dehydration, stroke, anemia, hypoglycemia, hyponatremia, hypernatremia, urinary tract infection, pneumonia, bronchitis, sepsis, gastroenteritis, additional abdominal pathology, metabolic abnormalities and infections. Medical Records Attestation: I reviewed the patient's medical records. Home Medications Current Medication List: was personally reviewed by me Laboratory Data Attestation: I reviewed the patient's lab results. Result diagrams: 01/14/19 05:33 01/14/19 05:33 Lab Results 01/14/19 01/14/19 01/14/19 Range/Units 05:33 05:33 05:33 WBC 9.45 (4.8-10.8) K/uL RBC 2.86 L (4.7-6.1) M/uL Hgb 8.7 L (14.0-18.0) g/dL POC Hgb (14.0-18.0) g/dl Hct 26.1 L (42-52) % POC Hct (42-52) % MCV 91.3 (80-100) fL MCH 30.4 (25-34) pg MCHC 33.3 (32-36) g/dL RDW Std Deviation 52.3 H (36.4-46.3) fL RDW Coeff of Norbert 15.5 H (11.5-14.5) % Plt Count 150 (130-400) K/uL MPV 9.2 (7.4-10.4) fL Immature Gran % (Auto) 0.5 % Neut % (Auto) 74.6 % Lymph % (Auto) 9.5 % [place] % (Auto) 13.4 % Eos % (Auto) 1.8 % Baso % (Auto) 0.2 % Immature Gran # (Auto) 0.05 H (0.00-0.02) K/uL Neut # (Auto) 7.04 H (1.4-6.5) K/uL Lymph # (Auto) 0.90 L (1.2-3.4) K/uL [place] # (Auto) 1.27 H (0.11-0.59) K/uL Eos # (Auto) 0.17 (0-0.5) K/uL Baso # (Auto) 0.02 (0-0.2) K/uL PT 10.5 (9.0-12.0) Seconds INR 1.0 (0.9-1.1) APTT 28.0 (21.0-31.0) Seconds PTT Ratio 1.0 POC Sodium (135-144) mEq/L Sodium 134 L (136-145) mmol/L POC Potassium (3.3-5.0) mEq/L Potassium 3.8 (3.5-5.1) mmol/L POC Chloride (101-112) mEq/L Chloride 103 (98-107) mmol/L Carbon Dioxide 24 (21-32) mmol/L POC Total CO2 (24-31) mEq/l Anion Gap 7.0 (3-11) POC Anion Gap (16-25) mmol/L POC BUN (7-18) mg/dl BUN 11 (7-18) mg/dl Creatinine 0.93 (0.6-1.4) mg/dl POC Creatinine (0.6-1.3) mg/dl Est Cr Clr Drug Dosing 86.8 ml/min Est GFR ( Amer) 98.8 Est GFR (Non-Af Amer) 85.2 BUN/Creatinine Ratio 11.7 (10-20) Glucose 152 H (70-99) mg/dl POC Glucose (other) (70-99) mg/dl Calcium 8.1 L (8.5-10.1) mg/dl POC Ioniz Calcium Yg (1.12-1.32) mmol/l Total Bilirubin 0.3 (0.2-1) mg/dl AST 12 L (15-37) U/L ALT 14 (12-78) U/L Alkaline Phosphatase 74 (45-117) U/L Total Creatine Kinase 63 (39-308) U/L CK-MB (CK-2) 2.8 (0.5-3.6) ng/ml CK/CKMB % Calc 4.4 H (0-3.0) Troponin I 0.033 (0-0.045) ng/ml Total Protein 6.1 L (6.4-8.2) gm/dl Albumin 2.4 L (3.4-5.0) gm/dl Globulin 3.7 (2.5-4.0) gm/dl Albumin/Globulin Ratio 0.6 L (0.9-2) Blood Type Antibody Screen 01/14/19 01/14/19 Range/Units 05:33 06:01 WBC (4.8-10.8) K/uL RBC (4.7-6.1) M/uL Hgb (14.0-18.0) g/dL POC Hgb 8.2 L (14.0-18.0) g/dl Hct (42-52) % POC Hct 24 L (42-52) % MCV (80-100) fL MCH (25-34) pg MCHC (32-36) g/dL RDW Std Deviation (36.4-46.3) fL RDW Coeff of Norbert (11.5-14.5) % Plt Count (130-400) K/uL MPV (7.4-10.4) fL Immature Gran % (Auto) % Neut % (Auto) % Lymph % (Auto) % [place] % (Auto) % Eos % (Auto) % Baso % (Auto) % Immature Gran # (Auto) (0.00-0.02) K/uL Neut # (Auto) (1.4-6.5) K/uL Lymph # (Auto) (1.2-3.4) K/uL Apache # (Auto) (0.11-0.59) K/uL Eos # (Auto) (0-0.5) K/uL Baso # (Auto) (0-0.2) K/uL PT (9.0-12.0) Seconds INR (0.9-1.1) APTT (21.0-31.0) Seconds PTT Ratio POC Sodium 133 L (135-144) mEq/L Sodium (136-145) mmol/L POC Potassium 3.9 (3.3-5.0) mEq/L Potassium (3.5-5.1) mmol/L POC Chloride 99 L (101-112) mEq/L Chloride (98-107) mmol/L Carbon Dioxide (21-32) mmol/L POC Total CO2 21 L (24-31) mEq/l Anion Gap (3-11) POC Anion Gap 19.0 (16-25) mmol/L POC BUN 10 (7-18) mg/dl BUN (7-18) mg/dl Creatinine (0.6-1.4) mg/dl POC Creatinine 0.9 (0.6-1.3) mg/dl Est Cr Clr Drug Dosing ml/min Est GFR ( Amer) Est GFR (Non-Af Amer) BUN/Creatinine Ratio (10-20) Glucose (70-99) mg/dl POC Glucose (other) 156 H (70-99) mg/dl Calcium (8.5-10.1) mg/dl POC Ioniz Calcium Yg 1.22 (1.12-1.32) mmol/l Total Bilirubin (0.2-1) mg/dl AST (15-37) U/L ALT (12-78) U/L Alkaline Phosphatase (45-117) U/L Total Creatine Kinase (39-308) U/L CK-MB (CK-2) (0.5-3.6) ng/ml CK/CKMB % Calc (0-3.0) Troponin I (0-0.045) ng/ml Total Protein (6.4-8.2) gm/dl Albumin (3.4-5.0) gm/dl Globulin (2.5-4.0) gm/dl Albumin/Globulin Ratio (0.9-2) Blood Type A Positive Antibody Screen NEGATIVE Imaging Data Attestation: I personally reviewed and interpreted this imaging study as follows: My Impression: XR Chest 1V: 1V CXR interpreted by me. Study shows pacemaker in place. Old sternotomy. Evidence of old neck injury. No pneumonia, congestion or pneumothorax. Radiologist's Impression: Radiology results as stated below per my review and the radiologist's interpretation: ECG Data Attestation: I personally reviewed and interpreted this ECG as follows: Indication: nausea and vomiting Rate (beats per minute): 88 Rhythm: sinus rhythm Findings: + other (Old septal infarct.), + 1st degree AV block, + PVC and + RBBB; no ST depression and no ST elevation MDM Narrative This is a 68 year old male sent iv over concerns of a large amount of emesis as well as diarrhea. The patient recently finished a course of ABx for a UTI and Im concerned he may have developed CDIff. He is alos requiring oxygen here in the ED. His is 8.7 slightly lower then when he was last in the hospital. His troponin is also slightly elevated though it has been much higher previously. He has also not seen wound management for his heel yet. Based on all of these findings i did discuss his case with the hospitalist who was kind enough to see the patient. Patient and family were in agreement with the treatment plan. Impression & Plan Gastroenteritis, Uncontrolled type 2 diabetes mellitus with neurologic complication, with long-term current use of insulin, Altered mental status, Anemia, Weakness Discharge Plan Visit Data *Final* Discharge Date/Time: 01/14/19 09:12 Chief Complaint: Diarrhea Stated Complaint: DIARRHEA/VOMITING Other Complaint: Vomiting ED Provider: Joseph Sotelo Discharge Problem: Gastroenteritis, Uncontrolled type 2 diabetes mellitus with neurologic complication, with long-term current use of insulin, Altered mental status, Anemia, Weakness Patient Disposition: Admitted As Inpatient Discharge Instructions Interventions: ED Discharge Assessment Last Done: 01/14/19 09:12 The scribe's documentation has been prepared under my direction and personally reviewed by me in its entirety. I confirm that the note above accurately reflects all work, treatment, procedures, and medical decision making performed by me.
--- NOTE | 2019-01-14 23:33 | Emergency Department Note ---
History of Present Illness General Chief complaint: Diarrhea Stated complaint: DIARRHEA/VOMITING Time Seen by Provider: 01/14/19 05:35 Home Medications Home Medications Medication Instructions Recorded Confirmed Type acetaminophen [Tylenol] 650 mg PO Q8 PRN 12/01/18 01/14/19 History aspirin [Aspir-81] 81 mg PO DAILY 12/01/18 01/14/19 History bisacodyl [Dulcolax (bisacodyl)] 10 mg [place] UD PRN 12/01/18 01/14/19 History cholecalciferol (vitamin D3) 2,000 unit PO DAILY 12/01/18 01/14/19 History [Vitamin D3] clopidogrel [Plavix] 75 mg PO DAILY 12/01/18 01/14/19 History divalproex 250 mg PO Q12 12/01/18 01/14/19 History finasteride 5 mg PO DAILY 12/01/18 01/14/19 History insulin lispro [Humalog U-100 1 sliding scale dose SUBCUT 12/01/18 01/14/19 History Insulin] USEASDIRECTD metoprolol succinate [Toprol XL] 50 mg PO DAILY 12/01/18 01/14/19 History atorvastatin 40 mg PO QAM #1 tab 12/16/18 01/14/19 Rx gabapentin 100 mg PO BID #2 cap 12/16/18 01/14/19 Rx polyethylene glycol 3350 [Miralax] 17 g PO DAILY #1 ea 12/16/18 01/14/19 Rx tramadol 50 mg PO Q4H PRN #3 tab 12/16/18 01/14/19 Rx Fleet Enema 118 ml NH HS PRN 01/09/19 01/14/19 History lorazepam 0.5 mg PO Q6H PRN 01/09/19 01/14/19 History magnesium hydroxide [Milk of 30 ml PO DAILY PRN 01/09/19 01/14/19 History Magnesia] lidocaine 2 patch TRANSDERMAL DIRECTED 01/14/19 01/14/19 History tamsulosin [Flomax] 0.4 mg PO HS 01/14/19 01/14/19 History Allergies Allergy/AdvReac Type Severity Reaction Status Date / Time No Known Drug Allergies Allergy Unknown Unverified 01/14/19 05:45 Past Med/Surg History Medical History Vitamin D deficiency (Acute) Urinary incontinence (Acute) Thyroid disorder (Acute) Spinal stenosis (Acute) Sleep-wake schedule disorder, delayed phase type (Acute) Restless legs syndrome (Acute) Nicotine dependence (Acute) Dyslipidemia (Acute) Diverticulosis (Acute) Disc degeneration, lumbar (Acute) Diabetic retinopathy (Acute) Diabetic peripheral neuropathy (Acute) Depression (Acute) Carotid artery stenosis (Acute) Benign localized hyperplasia of prostate with urinary obstruction (Acute) Anxiety (Acute) Anemia (Acute) Abscess in epidural space of lumbar spine (Acute) 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 Admitted [facility] 10/18/11 for onset of incapacitating cervical myelopathy. Spinal tap showed PROCESS MANAGER Lyme disease, MRI showed severe spinal cord compression at C3-4 with myelomalacia and intramedullary mass. Pt had c-spine surgery, subsequent prolonged hospital admission, complicated post-op course. Sudden cardiac Post-op 2011 [facility]. Now has ICD. Sleep apnea PT NOT CURRENTLY CPAP 2/2 recurrent sinus infections. WILL SEE SLEEP MEDICINE/DR. ARCHULETA LATE 2017 Diabetes mellitus, type 2 IDDM. Degenerative disc disease Ischemic cardiomyopathy EF WNL 11/2017 CAD (coronary artery disease) s/p triple CABG 2002 Full dentures (Acute) HTN (hypertension) (Acute) CHF (congestive heart failure) Chronic kidney disease, stage III (moderate) Chronic sinusitis Dysphagia History of non-ST elevation myocardial infarction (NSTEMI) ICD (implantable cardioverter-defibrillator) in place Surgical History History of esophagogastroduodenoscopy (EGD) History of colonoscopy History of cardiac cath 2011 AT [facility] - UNSURE IF HE HAS STENTS. Difficult airway for intubation History of tracheostomy Hx of transurethral resection of prostate History of cataract extraction with lens replacement Hx of tonsillectomy (Acute) H/O cervical spine surgery (Acute) ACDI C3-4, C7 corpectomy, removal of C7 intramedullary mass. History of lumbar spinal fusion (Acute) S/P triple vessel bypass (Acute) [facility]2002 History of incision and drainage Lumbar spine on 08/11; complicated by difficult intubation with only #6.5 ETT able to be placed and patient kept intubated post op History of lumbar surgery 09/10/18 Glidescope 3 okay visualization but difficulty passing ETT, unable to pass 8.0, able to pass 7.0 with some difficulty Family History Mother , age 68 of COPD and respiratory issues COPD (chronic obstructive pulmonary disease) Father , in his 40s of an [place] Myocardial infarction Other Diabetes Hypertension No pertinent family history Social History Preferred Language: Yi Communication Ability: Effective Visual Impairment: No Limitations Hearing Ability: Normal Residential Youth Counselor Required: No Beliefs That Will Affect Care: None marital status: Current Living Situation: Detention Current Living Situation Comment: temporarily [facility] 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al status: retired and disabled 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: 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 [employer] Feels Safe at Home: Yes Smoking Status: Former smoker Tobacco Type: smokeless tobacco ; Second Hand Exposure: No ; Hx Alcohol Use: No Hx Substance Use: No Physical Exam Vital Signs Vital Signs - 24 hr 01/14/19 05:44 01/14/19 05:53 01/14/19 06:25 Temperature 37.1 C Temperature Source Oral Sepsis Recent Fever Within 48 Hours No Sepsis New/Unexplained Change in Mental Status No Sepsis Action Taken by Nursing No Action Required Pulse Rate 88 Pulse Rate [Apical] 88 89 Pulse Rate from SpO2 Sensor Pulse Rhythm Irregular Pulse Rhythm [Apical] Irregular Irregular Respiratory Rate 16 14 Respiratory Effort / Characteristics Non-Labored Spontaneous Non-Labored Spontaneous Respiratory Depth Normal Normal Respiratory Pattern Regular Regular Blood Pressure 120/66 Blood Pressure [Right Arm] 113/62 Blood Pressure Mean 84 Blood Pressure Mean [Right Arm] 79 Pulse Oximetry 98 98 95 Oxygen Delivery Method Room Air Room Air Room Air Oxygen Flow Rate 01/14/19 07:00 01/14/19 07:24 01/14/19 07:31 Temperature Temperature Source Sepsis Recent Fever Within 48 Hours Sepsis New/Unexplained Change in Mental Status Sepsis Action Taken by Nursing Pulse Rate 102 H Pulse Rate [Apical] 94 H Pulse Rate from SpO2 Sensor 101 H Pulse Rhythm Pulse Rhythm [Apical] Respiratory Rate 20 20 Respiratory Effort / Characteristics Respiratory Depth Respiratory Pattern Blood Pressure 135/74 Blood Pressure [Right Arm] 115/62 Blood Pressure Mean 94 Blood Pressure Mean [Right Arm] 79 Pulse Oximetry 94 95 100 Oxygen Delivery Method Room Air Oxymask Oxymask Oxygen Flow Rate 2 2 Course Administered Medications Aspirin (Ecotrin Ectab) 81 mg PO DAILY [facility] Stop: 02/13/19 10:29 Last Admin: 01/14/19 11:28 Dose: 81 mg Documented by: [id number] Atorvastatin Calcium (Lipitor) 40 mg PO QAM [facility] Stop: 02/13/19 10:29 Last Admin: 01/14/19 11:27 Dose: 40 mg Documented by: [id number] Clopidogrel Bisulfate (Plavix) 75 mg PO DAILY [facility] Stop: 02/13/19 10:29 Last Admin: 01/14/19 11:27 Dose: 75 mg Documented by: [id number] Divalproex Sodium (Depakote Delay Release) 250 mg PO Q12 [facility] Stop: 02/13/19 10:29 Last Admin: 01/14/19 20:04 Dose: 250 mg Documented by: [id number] Admin: 01/14/19 11:27 Dose: 250 mg Documented by: [id number] Gabapentin (Neurontin) 100 mg PO BID [facility] Stop: 02/13/19 10:29 Last Admin: 01/14/19 20:04 Dose: 100 mg Documented by: [id number] Admin: 01/14/19 11:27 Dose: 100 mg Documented by: [id number] Heparin Sodium (Porcine) (Heparin Sodium (Porcine)) 5,000 units SQ Q8 [facility] Stop: 02/13/19 13:59 Last Admin: 01/14/19 21:29 Dose: Not Given Documented by: [id number] Admin: 01/14/19 13:36 Dose: 5,000 units Documented by: [id number] Cosigned by: [id number] Potassium Chloride/Sodium Chloride (Normal Saline W/20 Meq Kcl) 20 meq in 1,000 mls @ 80 mls/hr IV .[id number] [facility] Stop: 02/13/19 10:29 Last Admin: 01/14/19 21:42 Dose: 80 mls/hr Documented by: [id number] Infusion: 01/14/19 21:42 Dose: 80 mls/hr Documented by: [id number] Admin: 01/14/19 10:43 Dose: 80 mls/hr Documented by: [id number] Insulin Aspart (Novolog Flexpen) 0 units SC ACHS [facility] Stop: 02/13/19 11:29 Last Admin: 01/14/19 20:05 Dose: Not Given Documented by: [id number] Cosigned by: [id number] Admin: 01/14/19 17:08 Dose: 3 units Documented by: [id number] Cosigned by: [id number] Admin: 01/14/19 12:08 Dose: Not Given Documented by: [id number] Cosigned by: [id number] Lidocaine (Lidoderm 5%) 2 patch TD DAILY [facility] Stop: 02/13/19 10:29 Last Admin: 01/14/19 11:28 Dose: 2 patch Documented by: [id number] Metoprolol Succinate (Toprol Xl) 50 mg PO DAILY [facility] Stop: 02/13/19 10:29 Last Admin: 01/14/19 11:28 Dose: 50 mg Documented by: [id number] Miscellaneous (Remove Lidoderm Patch) 2 ea N/A DAILY@2100 [facility] Stop: 02/13/19 20:59 Last Admin: 01/14/19 20:05 Dose: Not Given Documented by: [id number] Nystatin (Mycostatin) 1 appln EXT BID [facility] Stop: 02/13/19 12:29 Last Admin: 01/14/19 20:04 Dose: 1 appln Documented by: [id number] Admin: 01/14/19 13:00 Dose: 1 appln Documented by: [id number] Raspberry (Raspberry) 5 ml PO Q6H [facility] Stop: 01/28/19 10:29 Last Admin: 01/14/19 17:07 Dose: 5 ml Documented by: [id number] Admin: 01/14/19 11:27 Dose: 5 ml Documented by: [id number] Tamsulosin HCl (Flomax) 0.4 mg PO HS [facility] Stop: 02/13/19 20:59 Last Admin: 01/14/19 20:04 Dose: 0.4 mg Documented by: [id number] Vancomycin HCl (Vancomycin Hcl) 250 mg PO Q6 [facility] Stop: 01/24/19 10:29 Last Admin: 01/14/19 17:07 Dose: 250 mg Documented by: [id number] Admin: 01/14/19 13:14 Dose: 250 mg Documented by: [id number] Admin: 01/14/19 11:26 Dose: 250 mg Documented by: [id number] Discontinued Medications Sodium Chloride (Nss 1000ml) 1,000 mls @ 100 mls/hr IV .Q10H [facility] Stop: 01/14/19 15:44 Last Infusion: 01/14/19 09:10 Dose: 0 mls/hr Documented by: [id number] Admin: 01/14/19 06:02 Dose: 100 mls/hr Documented by: [id number] Ioversol (Optiray 320 100ml) 92 ml IV ONCE PRN PRN Reason: Interaction Checking Stop: 01/18/19 06:09 Last Admin: 01/14/19 06:10 Dose: 1 ml Documented by: [id number] Ondansetron HCl (Zofran) 4 mg IV ONE STA Stop: 01/14/19 05:45 Last Admin: 01/14/19 06:02 Dose: 4 mg Documented by: [id number] Medical Decision Making Laboratory Data Result diagrams: 01/14/19 05:33 01/14/19 05:33 Lab Results 01/14/19 01/14/19 01/14/19 Range/Units 05:33 05:33 05:33 WBC 9.45 (4.8-10.8) K/uL RBC 2.86 L (4.7-6.1) M/uL Hgb 8.7 L (14.0-18.0) g/dL POC Hgb (14.0-18.0) g/dl Hct 26.1 L (42-52) % POC Hct (42-52) % MCV 91.3 (80-100) fL MCH 30.4 (25-34) pg MCHC 33.3 (32-36) g/dL RDW Std Deviation 52.3 H (36.4-46.3) fL RDW Coeff of Norbert 15.5 H (11.5-14.5) % Plt Count 150 (130-400) K/uL MPV 9.2 (7.4-10.4) fL Immature Gran % (Auto) 0.5 % Neut % (Auto) 74.6 % Lymph % (Auto) 9.5 % Lawrence % (Auto) 13.4 % Eos % (Auto) 1.8 % Baso % (Auto) 0.2 % Immature Gran # (Auto) 0.05 H (0.00-0.02) K/uL Neut # (Auto) 7.04 H (1.4-6.5) K/uL Lymph # (Auto) 0.90 L (1.2-3.4) K/uL Lawrence # (Auto) 1.27 H (0.11-0.59) K/uL Eos # (Auto) 0.17 (0-0.5) K/uL Baso # (Auto) 0.02 (0-0.2) K/uL PT 10.5 (9.0-12.0) Seconds INR 1.0 (0.9-1.1) APTT 28.0 (21.0-31.0) Seconds PTT Ratio 1.0 POC Sodium (135-144) mEq/L Sodium 134 L (136-145) mmol/L POC Potassium (3.3-5.0) mEq/L Potassium 3.8 (3.5-5.1) mmol/L POC Chloride (101-112) mEq/L Chloride 103 (98-107) mmol/L Carbon Dioxide 24 (21-32) mmol/L POC Total CO2 (24-31) mEq/l Anion Gap 7.0 (3-11) POC Anion Gap (16-25) mmol/L POC BUN (7-18) mg/dl BUN 11 (7-18) mg/dl Creatinine 0.93 (0.6-1.4) mg/dl POC Creatinine (0.6-1.3) mg/dl Est Cr Clr Drug Dosing 86.8 ml/min Est GFR ( Amer) 98.8 Est GFR (Non-Af Amer) 85.2 BUN/Creatinine Ratio 11.7 (10-20) Glucose 152 H (70-99) mg/dl POC Glucose (other) (70-99) mg/dl Calcium 8.1 L (8.5-10.1) mg/dl POC Ioniz Calcium Yg (1.12-1.32) mmol/l Total Bilirubin 0.3 (0.2-1) mg/dl AST 12 L (15-37) U/L ALT 14 (12-78) U/L Alkaline Phosphatase 74 (45-117) U/L Total Creatine Kinase 63 (39-308) U/L CK-MB (CK-2) 2.8 (0.5-3.6) ng/ml CK/CKMB % Calc 4.4 H (0-3.0) Troponin I 0.033 (0-0.045) ng/ml Total Protein 6.1 L (6.4-8.2) gm/dl Albumin 2.4 L (3.4-5.0) gm/dl Globulin 3.7 (2.5-4.0) gm/dl Albumin/Globulin Ratio 0.6 L (0.9-2) Blood Type Antibody Screen 01/14/19 01/14/19 Range/Units 05:33 06:01 WBC (4.8-10.8) K/uL RBC (4.7-6.1) M/uL Hgb (14.0-18.0) g/dL POC Hgb 8.2 L (14.0-18.0) g/dl Hct (42-52) % POC Hct 24 L (42-52) % MCV (80-100) fL MCH (25-34) pg MCHC (32-36) g/dL RDW Std Deviation (36.4-46.3) fL RDW Coeff of Norbert (11.5-14.5) % Plt Count (130-400) K/uL MPV (7.4-10.4) fL Immature Gran % (Auto) % Neut % (Auto) % Lymph % (Auto) % Lawrence % (Auto) % Eos % (Auto) % Baso % (Auto) % Immature Gran # (Auto) (0.00-0.02) K/uL Neut # (Auto) (1.4-6.5) K/uL Lymph # (Auto) (1.2-3.4) K/uL Lawrence # (Auto) (0.11-0.59) K/uL Eos # (Auto) (0-0.5) K/uL Baso # (Auto) (0-0.2) K/uL PT (9.0-12.0) Seconds INR (0.9-1.1) APTT (21.0-31.0) Seconds PTT Ratio POC Sodium 133 L (135-144) mEq/L Sodium (136-145) mmol/L POC Potassium 3.9 (3.3-5.0) mEq/L Potassium (3.5-5.1) mmol/L POC Chloride 99 L (101-112) mEq/L Chloride (98-107) mmol/L Carbon Dioxide (21-32) mmol/L POC Total CO2 21 L (24-31) mEq/l Anion Gap (3-11) POC Anion Gap 19.0 (16-25) mmol/L POC BUN 10 (7-18) mg/dl BUN (7-18) mg/dl Creatinine (0.6-1.4) mg/dl POC Creatinine 0.9 (0.6-1.3) mg/dl Est Cr Clr Drug Dosing ml/min Est GFR ( Amer) Est GFR (Non-Af Amer) BUN/Creatinine Ratio (10-20) Glucose (70-99) mg/dl POC Glucose (other) 156 H (70-99) mg/dl Calcium (8.5-10.1) mg/dl POC Ioniz Calcium Yg 1.22 (1.12-1.32) mmol/l Total Bilirubin (0.2-1) mg/dl AST (15-37) U/L ALT (12-78) U/L Alkaline Phosphatase (45-117) U/L Total Creatine Kinase (39-308) U/L CK-MB (CK-2) (0.5-3.6) ng/ml CK/CKMB % Calc (0-3.0) Troponin I (0-0.045) ng/ml Total Protein (6.4-8.2) gm/dl Albumin (3.4-5.0) gm/dl Globulin (2.5-4.0) gm/dl Albumin/Globulin Ratio (0.9-2) Blood Type A Positive Antibody Screen NEGATIVE MDM Narrative This is a 68-year-old male who presents emergency department complaining of anum roenteritis. The patient vomited and had multiple episodes of diarrhea. He recently finished an antibiotic and I suspect he may have C. difficile. His hemoglobin level has dropped to 8.7. In addition his troponin is slightly elevated. Based on both of these findings I feel patient should be admitted for observation. I did discuss the case with the hospitalist service who was kind enough to see the patient. Patient family were in agreement with the treatment plan. Impression & Plan Gastroenteritis, Uncontrolled type 2 diabetes mellitus with neurologic complication, with long-term current use of insulin, Altered mental status, Anemia, Weakness Discharge Plan Visit Data *Final* Discharge Date/Time: 01/14/19 09:12 Chief Complaint: Diarrhea Stated Complaint: DIARRHEA/VOMITING Other Complaint: Vomiting ED Provider: Joseph Sotelo Discharge Problem: Gastroenteritis, Uncontrolled type 2 diabetes mellitus with neurologic complication, with long-term current use of insulin, Altered mental status, Anemia, Weakness Patient Disposition: Admitted As Inpatient Discharge Instructions Interventions: ED Discharge Assessment Last Done: 01/14/19 09:12 Discharge Problem: Altered mental status Qualifiers: Altered mental status type: unspecified Qualified Code(s): R41.82 - Altered mental status, unspecified Anemia Qualifiers: Anemia type: unspecified type Qualified Code(s): D64.9 - Anemia, unspecified
[2019-01-15] MEDS: RASPBERRY SYRUP 5 ML UDP PO SCH ×4 (06:01→23:47)
[2019-01-15] MEDS: HEPARIN SOD 5,000 UNIT/0.5 ML VIAL SQ SCH ×3 (06:01→22:15)
[2019-01-15] MEDS: VANCOMYCIN HCL 250 MG/5 ML SOLN PO SCH ×4 (06:01→23:47)
[2019-01-15 06:53] LABS: Basophils # (auto) 0.02 K/uL (0-0.2); Basophils % (auto) 0.2 %; Eosinophils # (auto) 0.27 K/uL (0-0.5); Eosinophils % (auto) 3.1 %; Hematocrit (blood only) 25.4 % (42-52); Hemoglobin 8.2 g/dL (14.0-18.0); Immature Granulocytes # (auto) 0.05 K/uL (0.00-0.02); Immature Granulocytes % (auto) 0.6 %; Lymphocytes # (auto) 1.16 K/uL (1.2-3.4); Lymphocytes % (auto) 13.4 %; Mean Corpuscular Hgb Conc 32.3 g/dL (32-36); Mean Corpuscular Volume 91.7 fL (80-100); Mean Platelet Volume 9.1 fL (7.4-10.4); Monocytes # (auto) 1.06 K/uL (0.11-0.59); Monocytes % (auto) 12.2 %; Neutrophils % (auto) 70.5 %; Platelet Count 132 K/uL (130-400); RDW Coefficient of Variation 15.9 % (11.5-14.5); RDW Standard Deviation 53.6 fL (36.4-46.3); Red Blood Count 2.77 M/uL (4.7-6.1); White Blood Count 8.66 K/uL (4.8-10.8)
[2019-01-15 07:27] LABS: BUN Creatinine Ratio 10.3 (10-20); Calcium 8.1 mg/dl (8.5-10.1); Creatinine Clr Calc Pharmacy 91.4 ml/min; Est GFR (African American) 103.7; Est GFR (Non-African American) 89.5; Potassium 3.9 mmol/L (3.5-5.1)
[2019-01-15] MEDS: LIDOCAINE 5% 1 PATCH TD SCH (08:35)
[2019-01-15] MEDS: GABAPENTIN 100 MG CAP PO SCH ×2 (09:06→20:58)
[2019-01-15] MEDS: DIVALPROEX DELAY RELEASE 250 MG TABEC PO SCH ×2 (09:06→20:58)
[2019-01-15] MEDS: CLOPIDOGREL BISULFATE 75 MG TAB PO SCH (09:06)
[2019-01-15] MEDS: ATORVASTATIN 40 MG TAB PO SCH (09:06)
[2019-01-15] MEDS: ASPIRIN 81 MG ECTAB PO SCH (09:07)
[2019-01-15] MEDS: METOPROLOL SUCC 50MG EXT REL TAB PO SCH (09:07)
[2019-01-15] MEDS: NYSTATIN OINT 15 GM TUBE EXT SCH ×2 (09:08→20:58)
[2019-01-15] MEDS: INSULIN ASPART 100 UNITS/ML 3 ML PEN SC SCH ×4 (09:15→20:56)
--- NOTE | 2019-01-15 10:22 | Wound Consultation ---
Date of Consultation January 15, 2019 Assessment & Plan (1) Unstageable pressure ulcer of heel: 68-year-old male with multiple medical comorbidities as described above is being evaluated for an unstageable pressure ulcer of his left heel. There is likely underlying deep tissue injury. Wound needed debridement. After obtaining permission topical Xylocaine was applied. Using scissors and forceps wound was debrided of nonviable skin. There is no bleeding. Patient tolerated the procedure well no complications. This represents a non-excisional debridement of less than 20 cm. Wound be dressed with Aquacel Ag and OPTi foam. ABD's were done and wound is 1.3 and the left 10.9 on the right. Would be cautious with the left as it could be falsely elevated due to patient's diabetes and peripheral arterial disease. Continue to wear waffle boot. Wound of PT evaluate the patient for possible heel off bag loader. Thank you for allowing me to participate in the patient care. Please not hesitate to call with any questions. We will see patient in the office a week after discharge. 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 with with C. difficile colitis. He was subsequently found to have deep tissue injury to his left heel. Patient's noticed the wound over the weekend is unsure how long it was there. Allergies Allergy/AdvReac Type Severity Reaction Status Date / Time No Known Drug Allergies Allergy Unknown Unverified 01/14/19 05:45 Home Medications Home Medications Medication Instructions Recorded Confirmed Type acetaminophen [Tylenol] 650 mg PO Q8 PRN 12/01/18 01/14/19 History aspirin [Aspir-81] 81 mg PO DAILY 12/01/18 01/14/19 History bisacodyl [Dulcolax (bisacodyl)] 10 mg [place] UD PRN 12/01/18 01/14/19 History cholecalciferol (vitamin D3) 2,000 unit PO DAILY 12/01/18 01/14/19 History [Vitamin D3] clopidogrel [Plavix] 75 mg PO DAILY 12/01/18 01/14/19 History divalproex 250 mg PO Q12 12/01/18 01/14/19 History finasteride 5 mg PO DAILY 12/01/18 01/14/19 History insulin lispro [Humalog U-100 1 sliding scale dose SUBCUT 12/01/18 01/14/19 History Insulin] USEASDIRECTD metoprolol succinate [Toprol XL] 50 mg PO DAILY 12/01/18 01/14/19 History atorvastatin 40 mg PO QAM #1 tab 12/16/18 01/14/19 Rx gabapentin 100 mg PO BID #2 cap 12/16/18 01/14/19 Rx polyethylene glycol 3350 [Miralax] 17 g PO DAILY #1 ea 12/16/18 01/14/19 Rx tramadol 50 mg PO Q4H PRN #3 tab 12/16/18 01/14/19 Rx Fleet Enema 118 ml AL HS PRN 01/09/19 01/14/19 History lorazepam 0.5 mg PO Q6H PRN 01/09/19 01/14/19 History magnesium hydroxide [Milk of 30 ml PO DAILY PRN 01/09/19 01/14/19 History Magnesia] lidocaine 2 patch TRANSDERMAL DIRECTED 01/14/19 01/14/19 History tamsulosin [Flomax] 0.4 mg PO HS 01/14/19 01/14/19 History Patient History Medical History Vitamin D deficiency (Acute) Urinary incontinence (Acute) Thyroid disorder (Acute) Spinal stenosis (Acute) Sleep-wake schedule disorder, delayed phase type (Acute) Restless legs syndrome (Acute) Nicotine dependence (Acute) Dyslipidemia (Acute) Diverticulosis (Acute) Disc degeneration, lumbar (Acute) Diabetic retinopathy (Acute) Diabetic peripheral neuropathy (Acute) Depression (Acute) Carotid artery stenosis (Acute) Benign localized hyperplasia of prostate with urinary obstruction (Acute) Anxiety (Acute) Anemia (Acute) Abscess in epidural space of lumbar spine (Acute) 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 Admitted [facility] 10/18/11 for onset of incapacitating cervical myelopathy. 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 Pt had c-spine surgery, subsequent prolonged hospital admission, complicated post-op course. Sudden cardiac Post-op 2011 [facility]. Now has ICD. Sleep apnea PT NOT CURRENTLY CPAP 2/2 recurrent sinus infections. WILL SEE SLEEP MEDICINE/DR. ARCHULETA LATE 2017 Diabetes mellitus, type 2 IDDM. Degenerative disc disease Ischemic cardiomyopathy EF WNL 11/2017 CAD (coronary artery disease) s/p triple CABG 2002 Full dentures (Acute) HTN (hypertension) (Acute) CHF (congestive heart failure) Chronic kidney disease, stage III (moderate) Chronic sinusitis Dysphagia History of non-ST elevation myocardial infarction (NSTEMI) ICD (implantable cardioverter-defibrillator) in place Surgical History History of esophagogastroduodenoscopy (EGD) History of colonoscopy History of cardiac cath 2011 AT [facility] - UNSURE IF HE HAS STENTS. Difficult airway for intubation History of tracheostomy Hx of transurethral resection of prostate History of cataract extraction with lens replacement Hx of tonsillectomy (Acute) H/O cervical spine surgery (Acute) ACDI C3-4, C7 corpectomy, removal of C7 intramedullary mass. History of lumbar spinal fusion (Acute) S/P triple vessel bypass (Acute) [facility]2002 History of incision and drainage Lumbar spine on 08/11; complicated by difficult intubation with only #6.5 ETT able to be placed and patient kept intubated post op History of lumbar surgery 09/10/18 Glidescope 3 okay visualization but difficulty passing ETT, unable to pass 8.0, able to pass 7.0 with some difficulty Family History Mother , age 68 of COPD and respiratory issues COPD (chronic obstructive pulmonary disease) Father , in his 40s of an [place] Myocardial infarction Other Diabetes Hypertension No pertinent family history Social History Preferred Language: [place] Communication Ability: Effective Visual Impairment: No Limitations Hearing Ability: Normal Chief Technician Required: No Beliefs That Will Affect Care: None marital status: Current Living Situation: Alf Current Living Situation Comment: [facility] 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al status: retired and disabled 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 Wound is deep in nature periwound with nonviable skin. There is large amount of drainage. Neurologic: awake; not confused Psychiatric: Orientation: alert, oriented to person, oriented to place and cooperative Results & Data Vital Signs (Past 12 Hours) Vital Signs Temp Pulse Pulse Resp BP BP Pulse Ox 01/15/19 07:24 36.6 C 80 22 130/73 95 01/15/19 03:26 37.5 C 76 16 96/59 L 96 01/15/19 00:16 37.3 C 74 18 107/67 99 01/14/19 22:57 87 (1) Unstageable pressure ulcer of heel Laterality: left Qualified Code(s): L89.620 - Pressure ulcer of left heel, unstageable
[2019-01-15] MEDS: CHOLESTYRAMINE LIGHT 4 GM PKT PO SCH ×2 (10:28→22:22)
--- NOTE | 2019-01-15 12:44 | Hospitalist Progress Note ---
Date of Service January 15, 2019 Assessment & Plan (1) C. difficile colitis: acute onset night prior to admission, several bouts of diarrhea, abdominal pain, nausea and vomiting CT shows non-specific colitis tested positive for C diff toxin A continue Vancomycin 250mg PO QID will need 14 days of treatment add Questran today to bulk up stools recommend follow up with ID in 1-2 weeks (2) Altered mental status: slightly lethargic but he is oriented to person, place and time on admission likely due to infection and some mild dehydration resolved with fluids, will stop fluids today resolved with Vancomycin this represented metabolic encephalopathy (3) Anemia: Hb is 8.7 on admission, down to 8.2 today after some fluids is lower than one month ago when it was 10.9 on discharge during last admission he was transfused two units anemia work up completed and was normal continue to follow Hb, no evidence of blood loss (4) Coronary artery disease: h/o CAD no chest pain continue aspirin and Plavix (5) Ischemic cardiomyopathy: some edema in left leg but otherwise examines euvolemic cautious administration of IV fluids in setting of diarrhea and dehydration stop fluids today, continues to be euvolemic (6) Stage III chronic kidney disease: Cr is stable at 0.88 continue to monitor (7) Chronic systolic heart failure: examines euvolemic at this time (8) Low back pain: pain is controlled with Ultram was taking Oxycodone in recent past so this is improvement (9) Urinary retention: chronic indwelling luna (10) Weakness of lower extremity: (11) Edema: (12) Uncontrolled type 2 diabetes mellitus with neurologic complication, with long-term current use of insulin: use Novolog SS monitor for hypoglycemia diabetic diet (13) Obesity, Class II, BMI 35-39.9: (14) Anxiety: Lorazepam PRN (15) Unstageable pressure ulcer of heel: wound care following, will wear waffle boots in bed likely get fitted for orthotic shoe to offload heel when he does get up Subjective patient doing well, he is more awake and alert, answering questions appropriately still having diarrhea, several BM already this morning no abdominal pain, no nausea, he ate this morning no chest pain or dyspnea, no fever appreciate consultation from Dr. Selby, discussed plan with him updated patient's Fatimah over the phone he was set to be d/c to home from [facility] today due to insurance running out for skilled care she has Martha lift, hospital bed, rales, ramps, open shower for him at home daughter in law is DIRECTOR OF CODING and helps with taking care of him his feels like she can handle him but if the new infection and heel ulcer would require further care at [facility] that would be okay with her reviewed labs, WBC normal, Hb is 8.2, Cr and electrolytes stable C diff gene and toxin positive on testing confirming C diff colitis Review of Systems Review of Systems: All systems reviewed & are unremarkable except as noted in HPI & below Gastrointestinal: + diarrhea/loose stools; no abdominal pain, no nausea, no vomiting, no constipation and no blood in stools Physical Exam Constitutional: WD/WN, vitals as above + obese; no acute distress Eyes: PERRL, conjunctivae normal, anicteric sclerae ENMT: external ear and nose normal, oropharynx normal Neck: trachea midline, no thyromegaly Respiratory: normal respiratory effort, lungs clear to auscultation Cardiovascular: Rate/Rhythm: regular rate and regular rhythm Heart Sounds: normal S1 and normal S2; no murmur Extremities: + edema (left leg, pitting) Gastrointestinal (Abdomen): normal bowel sounds, soft, nontender, no hepatosplenomegaly Musculoskeletal: Head/Neck/Chest: normocephalic and head atraumatic Spine: + limited thoraco-lumbar ROM Extremities: + limited ROM of extremities (legs) and + abnormal strength (generalized weakness in legs); no cyanosis, no clubbing and no petechiae Skin: + ulcer (left heel pressure ulcer) Neurologic: patellar DTR's 2+ bilat, sensation intact and PERRL, EOMI, accommodation nl, no face palsy, no dysarthria Psychiatric: Orientation: oriented x 3; + not alert (slightly tired) Affect: + flat affect Lymphatic: no cervical or axillary lymphadenopathy Results & Data Vital Signs (Past 12 Hours) Vital Signs Temp Pulse Resp BP Pulse Ox 01/15/19 11:37 36.6 C 69 22 118/76 100 01/15/19 07:24 36.6 C 80 22 130/73 95 01/15/19 03:26 37.5 C 76 16 96/59 L 96 Laboratory Results Laboratory Results - last 24 hr Microbiology 01/14/19 07:55 Urine,Clean Catch Urine Culture - Preliminary Gram negative bacilli 01/14/19 01/14/19 01/14/19 16:49 18:25 18:25 WBC RBC Hgb Hct MCV MCH MCHC RDW Std Deviation RDW Coeff of Norbert Plt Count MPV Immature Gran % (Auto) Neut % (Auto) Lymph % (Auto) [place] % (Auto) Eos % (Auto) Baso % (Auto) Immature Gran # (Auto) Neut # (Auto) Lymph # (Auto) Winston # (Auto) Eos # (Auto) Baso # (Auto) Sodium Potassium Chloride Carbon Dioxide Anion Gap BUN Creatinine Est Cr Clr Drug Dosing Est GFR ( Amer) Est GFR (Non-Af Amer) BUN/Creatinine Ratio Glucose POC Glucose 132 H Calcium Stl C. diff Tox B Gene Positive Cdiff Gene H Stl C.difficile Tox A&B Positive Cdiff Toxin A* Norovirus RNA (PCR) Pending 01/14/19 01/15/19 01/15/19 19:59 06:41 06:41 WBC 8.66 RBC 2.77 L Hgb 8.2 L Hct 25.4 L MCV 91.7 MCH 29.6 MCHC 32.3 RDW Std Deviation 53.6 H RDW Coeff of Norbert 15.9 H Plt Count 132 MPV 9.1 Immature Gran % (Auto) 0.6 Neut % (Auto) 70.5 Lymph % (Auto) 13.4 Winston % (Auto) 12.2 Eos % (Auto) 3.1 Baso % (Auto) 0.2 Immature Gran # (Auto) 0.05 H Neut # (Auto) 6.10 Lymph # (Auto) 1.16 L Winston # (Auto) 1.06 H Eos # (Auto) 0.27 Baso # (Auto) 0.02 Sodium 140 Potassium 3.9 Chloride 111 H Carbon Dioxide 24 Anion Gap 6.0 BUN 9 Creatinine 0.88 Est Cr Clr Drug Dosing 91.4 Est GFR ( Amer) 103.7 Est GFR (Non-Af Amer) 89.5 BUN/Creatinine Ratio 10.3 Glucose 99 POC Glucose 151 H Calcium 8.1 L Stl C. diff Tox B Gene Stl C.difficile Tox A&B Norovirus RNA (PCR) 01/15/19 01/15/19 07:29 11:02 WBC RBC Hgb Hct MCV MCH MCHC RDW Std Deviation RDW Coeff of Norbert Plt Count MPV Immature Gran % (Auto) Neut % (Auto) Lymph % (Auto) Winston % (Auto) Eos % (Auto) Baso % (Auto) Immature Gran # (Auto) Neut # (Auto) Lymph # (Auto) Winston # (Auto) Eos # (Auto) Baso # (Auto) Sodium Potassium Chloride Carbon Dioxide Anion Gap BUN Creatinine Est Cr Clr Drug Dosing Est GFR ( Amer) Est GFR (Non-Af Amer) BUN/Creatinine Ratio Glucose POC Glucose 136 H 115 H Calcium Stl C. diff Tox B Gene Stl C.difficile Tox A&B Norovirus RNA (PCR) Medications Administered Current Inpatient Medications Acetaminophen (Tylenol) 650 mg PO Q4H PRN PRN Reason: Pain or Fever Stop: 02/13/19 09:44 Aspirin (Ecotrin Ectab) 81 mg PO DAILY [facility] Stop: 02/13/19 10:29 Last Admin: 01/15/19 09:07 Dose: 81 mg Documented by: Atorvastatin Calcium (Lipitor) 40 mg PO QAM [facility] Stop: 02/13/19 10:29 Last Admin: 01/15/19 09:06 Dose: 40 mg Documented by: Cholestyramine Resin (Questran) 4 gm PO BID@1000,2200 [facility] Stop: 02/14/19 09:59 Last Admin: 01/15/19 10:28 Dose: 4 gm Documented by: Clopidogrel Bisulfate (Plavix) 75 mg PO DAILY [facility] Stop: 02/13/19 10:29 Last Admin: 01/15/19 09:06 Dose: 75 mg Documented by: Divalproex Sodium (Depakote Delay Release) 250 mg PO Q12 [facility] Stop: 02/13/19 10:29 Last Admin: 01/15/19 09:06 Dose: 250 mg Documented by: Gabapentin (Neurontin) 100 mg PO BID [facility] Stop: 02/13/19 10:29 Last Admin: 01/15/19 09:06 Dose: 100 mg Documented by: Heparin Sodium (Porcine) (Heparin Sodium (Porcine)) 5,000 units SQ Q8 [facility] Stop: 02/13/19 13:59 Last Admin: 01/15/19 06:01 Dose: 5,000 units Documented by: Insulin Aspart (Novolog Flexpen) 0 units SC ACHS [facility] Stop: 02/13/19 11:29 Last Admin: 01/15/19 09:15 Dose: Not Given Documented by: Lidocaine (Lidoderm 5%) 2 patch TD DAILY [facility] Stop: 02/13/19 10:29 Last Admin: 01/15/19 08:35 Dose: 2 patch Documented by: Lorazepam (Ativan) 0.5 mg PO Q6H PRN PRN Reason: Anxiety Stop: 02/13/19 09:44 Metoprolol Succinate (Toprol Xl) 50 mg PO DAILY [facility] Stop: 02/13/19 10:29 Last Admin: 01/15/19 09:07 Dose: 50 mg Documented by: Miscellaneous (Remove Lidoderm Patch) 2 ea N/A DAILY@2100 [facility] Stop: 02/13/19 20:59 Last Admin: 01/14/19 20:05 Dose: Not Given Documented by: Nystatin (Mycostatin) 1 appln EXT BID [facility] Stop: 02/13/19 12:29 Last Admin: 01/15/19 09:08 Dose: 1 appln Documented by: Ondansetron HCl (Zofran) 4 mg IV Q6H PRN PRN Reason: Nausea Stop: 02/13/19 09:44 Raspberry (Raspberry) 5 ml PO Q6H [facility] Stop: 01/28/19 10:29 Last Admin: 01/15/19 11:31 Dose: 5 ml Documented by: Tamsulosin HCl (Flomax) 0.4 mg PO HS [facility] Stop: 02/13/19 20:59 Last Admin: 01/14/19 20:04 Dose: 0.4 mg Documented by: Tramadol HCl (Ultram) 50 mg PO Q4H PRN PRN Reason: pain Stop: 02/13/19 09:44 Vancomycin HCl (Vancomycin Hcl) 250 mg PO Q6 [facility] Stop: 01/24/19 10:29 Last Admin: 01/15/19 11:31 Dose: 250 mg Documented by: PG Care Time/CCT Total # of Minutes Spent Total Time Spent with Patient: Total time spent is greater than 50% in coordination of care (as documented) at patient's floor/unit and/or counseling patient: (1) Anemia Anemia type: unspecified type Qualified Code(s): D64.9 - Anemia, unspecified (2) Low back pain Back pain laterality: midline Chronicity: acute Sciatica presence: without sciatica Qualified Code(s): M54.5 - Low back pain (3) Unstageable pressure ulcer of heel Laterality: left Qualified Code(s): L89.620 - Pressure ulcer of left heel, unstageable
[2019-01-15] MEDS: TAMSULOSIN HCL 0.4 MG CAP PO SCH (20:58)
[2019-01-15] MEDS: LORazepam 0.5 MG TAB PO PRN (23:47)
[2019-01-16] MEDS: HEPARIN SOD 5,000 UNIT/0.5 ML VIAL SQ SCH ×3 (06:33→21:16)
[2019-01-16] MEDS: VANCOMYCIN HCL 250 MG/5 ML SOLN PO SCH ×4 (06:33→23:08)
[2019-01-16] MEDS: RASPBERRY SYRUP 5 ML UDP PO SCH ×4 (06:33→23:08)
[2019-01-16 06:48] LABS: Basophils # (auto) 0.03 K/uL (0-0.2); Basophils % (auto) 0.3 %; Eosinophils # (auto) 0.21 K/uL (0-0.5); Eosinophils % (auto) 2.3 %; Hematocrit (blood only) 26.7 % (42-52); Hemoglobin 8.8 g/dL (14.0-18.0); Immature Granulocytes # (auto) 0.03 K/uL (0.00-0.02); Immature Granulocytes % (auto) 0.3 %; Lymphocytes # (auto) 1.02 K/uL (1.2-3.4); Lymphocytes % (auto) 11.3 %; Mean Corpuscular Volume 92.1 fL (80-100); Mean Platelet Volume 9.3 fL (7.4-10.4); Monocytes # (auto) 0.93 K/uL (0.11-0.59); Monocytes % (auto) 10.3 %; Neutrophils # (auto) 6.79 K/uL (1.4-6.5); Neutrophils % (auto) 75.5 %; Platelet Count 149 K/uL (130-400); RDW Coefficient of Variation 15.7 % (11.5-14.5); RDW Standard Deviation 53.2 fL (36.4-46.3); White Blood Count 9.01 K/uL (4.8-10.8)
[2019-01-16 07:25] LABS: BUN Creatinine Ratio 10.1 (10-20); Calcium 8.4 mg/dl (8.5-10.1); Creatinine Clr Calc Pharmacy 98.1 ml/min; Est GFR (African American) 106.8; Est GFR (Non-African American) 92.1; Potassium 3.4 mmol/L (3.5-5.1)
[2019-01-16] MEDS: TRAMADOL HCL 50 MG TABLET PO PRN ×2 (07:35→14:09)
[2019-01-16] MEDS: ASPIRIN 81 MG ECTAB PO SCH (07:36)
[2019-01-16] MEDS: CLOPIDOGREL BISULFATE 75 MG TAB PO SCH (07:36)
[2019-01-16] MEDS: METOPROLOL SUCC 50MG EXT REL TAB PO SCH (07:36)
[2019-01-16] MEDS: GABAPENTIN 100 MG CAP PO SCH ×2 (07:36→21:15)
[2019-01-16] MEDS: ATORVASTATIN 40 MG TAB PO SCH (07:36)
[2019-01-16] MEDS: DIVALPROEX DELAY RELEASE 250 MG TABEC PO SCH ×2 (07:37→21:16)
[2019-01-16] MEDS: LIDOCAINE 5% 1 PATCH TD SCH (07:37)
[2019-01-16] MEDS: NYSTATIN OINT 15 GM TUBE EXT SCH ×2 (07:38→21:16)
[2019-01-16] MEDS ORDERED: POTASSIUM CHLORIDE 20 MEQ TABCR PO ONE (07:45)
[2019-01-16] MEDS: ONDANSETRON INJ 2 MG/ML 2 ML VIAL IV PRN ×2 (08:28→19:48)
[2019-01-16] MEDS: INSULIN ASPART 100 UNITS/ML 3 ML PEN SC SCH ×4 (09:12→21:16)
[2019-01-16] MEDS: CHOLESTYRAMINE LIGHT 4 GM PKT PO SCH ×2 (10:25→21:14)
[2019-01-16] MEDS: ACETAMINOPHEN 325 MG TAB PO PRN (10:25)
--- NOTE | 2019-01-16 11:23 | Hospitalist Progress Note ---
Date of Service January 16, 2019 Assessment & Plan (1) C. difficile colitis: acute onset night prior to admission, several bouts of diarrhea, abdominal pain, nausea and vomiting CT showed non-specific colitis tested positive for C diff toxin A continue Vancomycin 250mg PO QID will need 14 days of treatment, last day would be 01/29 added Questran to bulk up stools, starting to work recommend follow up with ID in 1-2 weeks (2) Altered mental status: slightly lethargic but he is oriented to person, place and time on admission likely due to infection and some mild dehydration resolved with fluids, will stop fluids today resolved with Vancomycin this represented metabolic encephalopathy (3) Anemia: Hb was 8.7 on admission, down to 8.2 on 01/14 after some fluids is lower than one month ago when it was 10.9 on discharge during last admission he was transfused two units anemia work up completed and was normal Hb up to 8.8 today, no evidence of blood loss, continue to monitor (4) Coronary artery disease: h/o CAD no chest pain continue aspirin and Plavix (5) Ischemic cardiomyopathy: some edema in left leg but otherwise examines euvolemic cautious administration of IV fluids in setting of diarrhea and dehydration does not take Lasix as outpatient (6) Stage III chronic kidney disease: Cr is stable at 0.8 continue to monitor (7) Chronic systolic heart failure: examines euvolemic at this time (8) Low back pain: pain is controlled with Ultram was taking Oxycodone in recent past so this is improvement (9) Urinary retention: chronic indwelling luna (10) Weakness of lower extremity: (11) Edema: (12) Uncontrolled type 2 diabetes mellitus with neurologic complication, with long-term current use of insulin: use Novolog SS monitor for hypoglycemia, no episodes diabetic diet (13) Obesity, Class II, BMI 35-39.9: (14) Anxiety: Lorazepam PRN (15) Unstageable pressure ulcer of heel: wound care following, will wear waffle boots in bed likely get fitted for orthotic shoe to offload heel when he does get up Subjective patient doing well, diarrhea is less frequent, slightly more formed no abdominal pain, no fever, no nausea eating well, no chest pain, no dyspnea reviewed labs, Hb up slightly to 8.8, WBC normal, K is 3.4, Cr 0.82 discussed with patient that he will be here over weekend, determining if he can home or back to [facility] working with PT, he says he sat at the edge of the bed yesterday he voiced interest in getting home, trying to do exercises on home equipment he is motivated to get stronger Review of Systems Review of Systems: All systems reviewed & are unremarkable except as noted in HPI & below Gastrointestinal: + diarrhea/loose stools Integumentary: + skin ulcer (left heel) Physical Exam Constitutional: WD/WN, vitals as above + obese; no acute distress Eyes: PERRL, conjunctivae normal, anicteric sclerae ENMT: external ear and nose normal, oropharynx normal Neck: trachea midline, no thyromegaly Respiratory: normal respiratory effort, lungs clear to auscultation Cardiovascular: Rate/Rhythm: regular rate and regular rhythm Heart Sounds: normal S1 and normal S2; no murmur Extremities: + edema (left leg, pitting) Gastrointestinal (Abdomen): normal bowel sounds, soft, nontender, no hepatosplenomegaly Musculoskeletal: Head/Neck/Chest: normocephalic and head atraumatic Spine: + limited thoraco-lumbar ROM Extremities: + limited ROM of extremities (legs) and + abnormal strength (generalized weakness in legs); no cyanosis, no clubbing and no petechiae Skin: + ulcer (left heel pressure ulcer) Neurologic: patellar DTR's 2+ bilat, sensation intact and PERRL, EOMI, accommodation nl, no face palsy, no dysarthria Psychiatric: A+Ox3, euthymic affect Lymphatic: no cervical or axillary lymphadenopathy Results & Data Vital Signs (Past 12 Hours) Vital Signs Temp Pulse Resp BP Pulse Ox 01/16/19 07:13 36.5 C 84 20 151/80 H 99 01/15/19 23:51 36.6 C 78 20 114/70 96 Laboratory Results Laboratory Results - last 24 hr 01/15/19 01/15/19 01/16/19 16:35 20:53 06:30 WBC 9.01 RBC 2.90 L Hgb 8.8 L Hct 26.7 L MCV 92.1 MCH 30.3 MCHC 33.0 RDW Std Deviation 53.2 H RDW Coeff of Norbert 15.7 H Plt Count 149 MPV 9.3 Immature Gran % (Auto) 0.3 Neut % (Auto) 75.5 Lymph % (Auto) 11.3 [place] % (Auto) 10.3 Eos % (Auto) 2.3 Baso % (Auto) 0.3 Immature Gran # (Auto) 0.03 H Neut # (Auto) 6.79 H Lymph # (Auto) 1.02 L [place] # (Auto) 0.93 H Eos # (Auto) 0.21 Baso # (Auto) 0.03 Sodium Potassium Chloride Carbon Dioxide Anion Gap BUN Creatinine Est Cr Clr Drug Dosing Est GFR ( Amer) Est GFR (Non-Af Amer) BUN/Creatinine Ratio Glucose POC Glucose 110 H 137 H Calcium 01/16/19 01/16/19 06:30 07:30 WBC RBC Hgb Hct MCV MCH MCHC RDW Std Deviation RDW Coeff of Norbert Plt Count MPV Immature Gran % (Auto) Neut % (Auto) Lymph % (Auto) [place] % (Auto) Eos % (Auto) Baso % (Auto) Immature Gran # (Auto) Neut # (Auto) Lymph # (Auto) [place] # (Auto) Eos # (Auto) Baso # (Auto) Sodium 135 L Potassium 3.4 L Chloride 107 Carbon Dioxide 21 Anion Gap 7.0 BUN 8 Creatinine 0.82 Est Cr Clr Drug Dosing 98.1 Est GFR ( Amer) 106.8 Est GFR (Non-Af Amer) 92.1 BUN/Creatinine Ratio 10.1 Glucose 85 POC Glucose 110 H Calcium 8.4 L Medications Administered Current Inpatient Medications Acetaminophen (Tylenol) 650 mg PO Q4H PRN PRN Reason: Pain or Fever Stop: 02/13/19 09:44 Last Admin: 01/16/19 10:25 Dose: 650 mg Documented by: Aspirin (Ecotrin Ectab) 81 mg PO DAILY [facility] Stop: 02/13/19 10:29 Last Admin: 01/16/19 07:36 Dose: 81 mg Documented by: Atorvastatin Calcium (Lipitor) 40 mg PO QAM [facility] Stop: 02/13/19 10:29 Last Admin: 01/16/19 07:36 Dose: 40 mg Documented by: Cholestyramine Resin (Questran) 4 gm PO BID@1000,2200 [facility] Stop: 02/14/19 09:59 Last Admin: 01/16/19 10:25 Dose: 4 gm Documented by: Clopidogrel Bisulfate (Plavix) 75 mg PO DAILY [facility] Stop: 02/13/19 10:29 Last Admin: 01/16/19 07:36 Dose: 75 mg Documented by: Divalproex Sodium (Depakote Delay Release) 250 mg PO Q12 [facility] Stop: 02/13/19 10:29 Last Admin: 01/16/19 07:37 Dose: 250 mg Documented by: Gabapentin (Neurontin) 100 mg PO BID [facility] Stop: 02/13/19 10:29 Last Admin: 01/16/19 07:36 Dose: 100 mg Documented by: Heparin Sodium (Porcine) (Heparin Sodium (Porcine)) 5,000 units SQ Q8 [facility] Stop: 02/13/19 13:59 Last Admin: 01/16/19 06:33 Dose: 5,000 units Documented by: Insulin Aspart (Novolog Flexpen) 0 units SC ACHS [facility] Stop: 02/13/19 11:29 Last Admin: 01/16/19 09:12 Dose: Not Given Documented by: Lidocaine (Lidoderm 5%) 2 patch TD DAILY [facility] Stop: 02/13/19 10:29 Last Admin: 01/16/19 07:37 Dose: 2 patch Documented by: Lorazepam (Ativan) 0.5 mg PO Q6H PRN PRN Reason: Anxiety Stop: 02/13/19 09:44 Last Admin: 01/15/19 23:47 Dose: 0.5 mg Documented by: Metoprolol Succinate (Toprol Xl) 50 mg PO DAILY [facility] Stop: 02/13/19 10:29 Last Admin: 01/16/19 07:36 Dose: 50 mg Documented by: Miscellaneous (Remove Lidoderm Patch) 2 ea N/A DAILY@2100 [facility] Stop: 02/13/19 20:59 Last Admin: 01/15/19 20:58 Dose: 2 ea Documented by: Nystatin (Mycostatin) 1 appln EXT BID [facility] Stop: 02/13/19 12:29 Last Admin: 01/16/19 07:38 Dose: 1 appln Documented by: Ondansetron HCl (Zofran) 4 mg IV Q6H PRN PRN Reason: Nausea Stop: 02/13/19 09:44 Last Admin: 01/16/19 08:28 Dose: 4 mg Documented by: Raspberry (Raspberry) 5 ml PO Q6H [facility]PL[facility] Stop: 01/28/19 10:29 Last Admin: 01/16/19 06:33 Dose: 5 ml Documented by: Tamsulosin HCl (Flomax) 0.4 mg PO HS [facility] Stop: 02/13/19 20:59 Last Admin: 01/15/19 20:58 Dose: 0.4 mg Documented by: Tramadol HCl (Ultram) 50 mg PO Q4H PRN PRN Reason: pain Stop: 02/13/19 09:44 Last Admin: 01/16/19 07:35 Dose: 50 mg Documented by: Vancomycin HCl (Vancomycin Hcl) 250 mg PO Q6 [facility] Stop: 01/24/19 10:29 Last Admin: 01/16/19 06:33 Dose: 250 mg Documented by: PG Care Time/CCT Total # of Minutes Spent Total Time Spent with Patient: Total time spent is greater than 50% in coordination of care (as documented) at patient's floor/unit and/or counseling patient: (1) Anemia Anemia type: unspecified type Qualified Code(s): D64.9 - Anemia, unspecified (2) Low back pain Back pain laterality: midline Chronicity: acute Sciatica presence: without sciatica Qualified Code(s): M54.5 - Low back pain (3) Unstageable pressure ulcer of heel Laterality: left Qualified Code(s): L89.620 - Pressure ulcer of left heel, unstageable
[2019-01-16] MEDS: TAMSULOSIN HCL 0.4 MG CAP PO SCH (21:15)
[2019-01-17] MEDS: ONDANSETRON INJ 2 MG/ML 2 ML VIAL IV PRN ×2 (02:56→12:20)
--- NOTE | 2019-01-17 03:29 | Progress Note ---
Date of Service January 17, 2019 Subjective RN called at 3:20am regarding coffee ground emesis, also blood tinged. Pt having nausea otherwise asymptomatic. Vitals stable Advised to hemeoccult for confirmation Chart reviewed - being treated for C. diff and likely nausea/vomiting in the setting of infection Pt has hx of chronic anemia per chart review and this hospitalization Hgb lower at 8.8 Pt on aspirin and plavix for medical optimization of Multivessel CAD and Ischemic Cardiomyopathy - will place on hold for now AM team please consider further evaluation and assessment Results & Data Vital Signs (Past 12 Hours) Vital Signs Temp Pulse Resp BP BP Pulse Ox 01/16/19 22:54 36.4 C L 68 18 110/70 97 01/16/19 15:44 36.6 C 69 18 108/66 99 PG Care Time/CCT Total # of Minutes Spent Total Time Spent with Patient: Total time spent is greater than 50% in coordination of care (as documented) at patient's floor/unit and/or counseling patient: Resident Activity Tracking Resident Involvement: Resident Care Provided Care Provided: Adult Hospital Medicine
[2019-01-17 04:00] LABS: Gastric Occult Blood Positive (Negative); pH Gastric Fluid 1
[2019-01-17] MEDS: VANCOMYCIN HCL 250 MG/5 ML SOLN PO SCH ×4 (05:00→23:22)
[2019-01-17] MEDS: RASPBERRY SYRUP 5 ML UDP PO SCH ×4 (05:00→23:22)
[2019-01-17 07:55] LABS: Basophils # (auto) 0.03 K/uL (0-0.2); Basophils % (auto) 0.4 %; Eosinophils # (auto) 0.17 K/uL (0-0.5); Eosinophils % (auto) 2.1 %; Hematocrit (blood only) 26.7 % (42-52); Immature Granulocytes # (auto) 0.03 K/uL (0.00-0.02); Immature Granulocytes % (auto) 0.4 %; Lymphocytes # (auto) 1.01 K/uL (1.2-3.4); Lymphocytes % (auto) 12.5 %; Mean Corpuscular Hgb Conc 33.7 g/dL (32-36); Mean Corpuscular Volume 89.6 fL (80-100); Mean Platelet Volume 9.2 fL (7.4-10.4); Monocytes # (auto) 0.97 K/uL (0.11-0.59); Neutrophils # (auto) 5.87 K/uL (1.4-6.5); Neutrophils % (auto) 72.6 %; Platelet Count 143 K/uL (130-400); RDW Coefficient of Variation 15.5 % (11.5-14.5); RDW Standard Deviation 50.6 fL (36.4-46.3); Red Blood Count 2.98 M/uL (4.7-6.1); White Blood Count 8.08 K/uL (4.8-10.8)
[2019-01-17 08:34] LABS: BUN Creatinine Ratio 8.2 (10-20); Calcium 8.3 mg/dl (8.5-10.1); Creatinine Clr Calc Pharmacy 89.4 ml/min; Est GFR (African American) 102.8; Est GFR (Non-African American) 88.7
[2019-01-17] MEDS: LIDOCAINE 5% 1 PATCH TD SCH (08:48)
[2019-01-17] MEDS: DIVALPROEX DELAY RELEASE 250 MG TABEC PO SCH ×2 (08:48→20:53)
[2019-01-17] MEDS: ATORVASTATIN 40 MG TAB PO SCH (08:48)
[2019-01-17] MEDS: METOPROLOL SUCC 50MG EXT REL TAB PO SCH (08:48)
[2019-01-17] MEDS: INSULIN ASPART 100 UNITS/ML 3 ML PEN SC SCH ×4 (08:49→20:52)
[2019-01-17] MEDS: NYSTATIN OINT 15 GM TUBE EXT SCH ×2 (08:51→20:53)
[2019-01-17] MEDS: GABAPENTIN 100 MG CAP PO SCH ×2 (08:51→20:53)
[2019-01-17] MEDS: PANTOprazole 40 MG TAB PO SCH ×2 (09:39→20:53)
[2019-01-17] MEDS: CHOLESTYRAMINE LIGHT 4 GM PKT PO SCH (09:39)
[2019-01-17] MEDS: SODIUM CHLORIDE 0.9% 1000ML 1,000 ML IV SCH ×2 (13:26→23:22)
[2019-01-17] MEDS ORDERED: PROMETHAZINE HCL 12.5 MG in SODIUM CHLORIDE 0.9% 50 ML IV PRN (14:45)
[2019-01-17] MEDS ORDERED: ONDANSETRON INJ 2 MG/ML 2 ML VIAL IV PRN (14:46)
--- NOTE | 2019-01-17 14:50 | Hospitalist Progress Note ---
Date of Service January 17, 2019 Assessment & Plan (1) C. difficile colitis: acute onset night prior to admission, several bouts of diarrhea, abdominal pain, nausea and vomiting CT showed non-specific colitis tested positive for C diff toxin A continue Vancomycin 250mg PO QID will need 14 days of treatment, last day would be 01/29 added Questran to bulk up stools, starting to work no diarrhea or bowel movements on 01/17 recommend follow up with ID in 1-2 weeks (2) Hematemesis: possible hematemesis, certainly his emesis was dark but not exactly coffee ground has happened twice, once evening 01/16 and then morning 01/17 gastric fluid tested heme positive however, Hb trended up to 9.0 in the morning and remained at 9.0 in the afternoon no melena will hold aspirin and Plavix and Heparin add Protonix 40mg BID consult Dr. Lynn who has seen him in the past for PEG tube placement/removal (3) Altered mental status: slightly lethargic but he is oriented to person, place and time on admission likely due to infection and some mild dehydration resolved with fluids, will stop fluids 01/16 resolved with Vancomycin this represented metabolic encephalopathy (4) Anemia: Hb was 8.7 on admission, down to 8.2 on 01/14 after some fluids is lower than one month ago when it was 10.9 on discharge during last admission he was transfused two units anemia work up completed and was normal Hb up to 9.0 today in morning and afternoon continue to monitor with possible hematemesis (5) Coronary artery disease: h/o CAD no chest pain holding aspirin and Plavix for time being with possible GI bleeding (6) Ischemic cardiomyopathy: some edema in left leg but otherwise examines euvolemic cautious administration of IV fluids in setting of diarrhea and dehydration does not take Lasix as outpatient (7) Stage III chronic kidney disease: Cr is stable throughout admission continue to monitor (8) Chronic systolic heart failure: examines euvolemic at this time (9) Low back pain: pain is controlled with Ultram was taking Oxycodone in recent past so this is improvement (10) Urinary retention: chronic indwelling luna (11) Weakness of lower extremity: (12) Edema: (13) Uncontrolled type 2 diabetes mellitus with neurologic complication, with long-term current use of insulin: use [place] monitor for hypoglycemia, no episodes diabetic diet (14) Obesity, Class II, BMI 35-39.9: (15) Anxiety: Lorazepam PRN (16) Unstageable pressure ulcer of heel: wound care following, will wear waffle boots in bed likely get fitted for orthotic shoe to offload heel when he does get up Plan: needs GI consult for possible GI bleeding continue Vanco PO for C diff colitis continue PT/OT is prepared to take him home if needed has Martha lift, ramps, hand rails and support at home may qualify for more Skilled days at SNF due to new C diff infection case management following anticipate ready for d/c Saturday/Saturday depending on GI work up and symptoms resolving Subjective patient with some nausea and vomiting over night and this morning vomit was dark, concerns for hematemesis was heme positive on testing no history of ulcers aspirin and Plavix held by night resident as well as Heparin, started on Protonix BID no appetite, continues to have intermittent nausea no further diarrhea, no bowel movements all day labs reviewed, Hb actually up slightly to 9.0 from 8.8 yesterday will repeat H/H in the afternoon Cr stable and electrolytes normal Review of Systems Review of Systems: All systems reviewed & are unremarkable except as noted in HPI & below Respiratory: no cough and no dyspnea Cardiovascular: no chest pain Gastrointestinal: + nausea, + vomiting and + coffee ground emesis (questionable, it is dark but no coffee ground consistency); no constipation and no diarrhea/loose stools Physical Exam Constitutional: WD/WN, vitals as above + obese; no acute distress Eyes: PERRL, conjunctivae normal, anicteric sclerae ENMT: external ear and nose normal, oropharynx normal Neck: trachea midline, no thyromegaly Respiratory: normal respiratory effort, lungs clear to auscultation Cardiovascular: Rate/Rhythm: regular rate and regular rhythm Heart Sounds: normal S1 and normal S2; no murmur Extremities: + edema (left leg, pitting) Gastrointestinal (Abdomen): normal bowel sounds, soft, nontender, no hepatosplenomegaly Musculoskeletal: Head/Neck/Chest: normocephalic and head atraumatic Spine: + limited thoraco-lumbar ROM Extremities: + limited ROM of extremities (legs) and + abnormal strength (generalized weakness in legs); no cyanosis, no clubbing and no petechiae Skin: + ulcer (left heel pressure ulcer) Neurologic: patellar DTR's 2+ bilat, sensation intact and PERRL, EOMI, accommodation nl, no face palsy, no dysarthria Psychiatric: A+Ox3, euthymic affect Orientation: oriented x 3; + not alert (slightly tired) Affect: + flat affect Lymphatic: no cervical or axillary lymphadenopathy Results & Data Vital Signs (Past 12 Hours) Vital Signs Temp Pulse Resp BP BP Pulse Ox 01/17/19 08:48 78 132/81 01/17/19 07:28 36.2 C L 70 16 121/74 01/17/19 04:31 36.4 C L 70 18 122/74 96 Laboratory Results Laboratory Results - last 24 hr 01/16/19 01/16/19 01/17/19 16:30 20:36 03:30 WBC RBC Hgb Hct MCV MCH MCHC RDW Std Deviation RDW Coeff of Norbert Plt Count MPV Immature Gran % (Auto) Neut % (Auto) Lymph % (Auto) [place] % (Auto) Eos % (Auto) Baso % (Auto) Immature Gran # (Auto) Neut # (Auto) Lymph # (Auto) [place] # (Auto) Eos # (Auto) Baso # (Auto) Sodium Potassium Chloride Carbon Dioxide Anion Gap BUN Creatinine Est Cr Clr Drug Dosing Est GFR ( Amer) Est GFR (Non-Af Amer) BUN/Creatinine Ratio Glucose POC Glucose 120 H 134 H Calcium Gastric Fluid pH 1 Gastric Occult Blood Positive A 01/17/19 01/17/19 01/17/19 07:32 07:38 07:38 WBC 8.08 RBC 2.98 L Hgb 9.0 L Hct 26.7 L MCV 89.6 MCH 30.2 MCHC 33.7 RDW Std Deviation 50.6 H RDW Coeff of Norbert 15.5 H Plt Count 143 MPV 9.2 Immature Gran % (Auto) 0.4 Neut % (Auto) 72.6 Lymph % (Auto) 12.5 [place] % (Auto) 12.0 Eos % (Auto) 2.1 Baso % (Auto) 0.4 Immature Gran # (Auto) 0.03 H Neut # (Auto) 5.87 Lymph # (Auto) 1.01 L [place] # (Auto) 0.97 H Eos # (Auto) 0.17 Baso # (Auto) 0.03 Sodium 135 L Potassium 4.0 D Chloride 105 Carbon Dioxide 21 Anion Gap 9.0 BUN 7 Creatinine 0.90 Est Cr Clr Drug Dosing 89.4 Est GFR ( Amer) 102.8 Est GFR (Non-Af Amer) 88.7 BUN/Creatinine Ratio 8.2 L Glucose 84 POC Glucose 98 Calcium 8.3 L Gastric Fluid pH Gastric Occult Blood 01/17/19 11:11 WBC RBC Hgb Hct MCV MCH MCHC RDW Std Deviation RDW Coeff of Norbert Plt Count MPV Immature Gran % (Auto) Neut % (Auto) Lymph % (Auto) [place] % (Auto) Eos % (Auto) Baso % (Auto) Immature Gran # (Auto) Neut # (Auto) Lymph # (Auto) [place] # (Auto) Eos # (Auto) Baso # (Auto) Sodium Potassium Chloride Carbon Dioxide Anion Gap BUN Creatinine Est Cr Clr Drug Dosing Est GFR ( Amer) Est GFR (Non-Af Amer) BUN/Creatinine Ratio Glucose POC Glucose 96 Calcium Gastric Fluid pH Gastric Occult Blood Medications Administered Current Inpatient Medications Acetaminophen (Tylenol) 650 mg PO Q4H PRN PRN Reason: Pain or Fever Stop: 02/13/19 09:44 Last Admin: 01/16/19 10:25 Dose: 650 mg Documented by: Aspirin (Ecotrin Ectab) 81 mg PO DAILY [facility] Stop: 02/13/19 10:29 Last Admin: 01/16/19 07:36 Dose: 81 mg Documented by: Atorvastatin Calcium (Lipitor) 40 mg PO QAM [facility] Stop: 02/13/19 10:29 Last Admin: 01/17/19 08:48 Dose: 40 mg Documented by: Clopidogrel Bisulfate (Plavix) 75 mg PO DAILY [facility] Stop: 02/13/19 10:29 Last Admin: 01/16/19 07:36 Dose: 75 mg Documented by: Divalproex Sodium (Depakote Delay Release) 250 mg PO Q12 [facility] Stop: 02/13/19 10:29 Last Admin: 01/17/19 08:48 Dose: 250 mg Documented by: Gabapentin (Neurontin) 100 mg PO BID [facility] Stop: 02/13/19 10:29 Last Admin: 01/17/19 08:51 Dose: 100 mg Documented by: Heparin Sodium (Porcine) (Heparin Sodium (Porcine)) 5,000 units SQ Q8 [facility] Stop: 02/13/19 13:59 Last Admin: 01/16/19 21:16 Dose: 5,000 units Documented by: Sodium Chloride (Nss 1000ml) 1,000 mls @ 80 mls/hr IV .[id number] [facility] Stop: 02/16/19 12:44 Last Admin: 01/17/19 13:26 Dose: 80 mls/hr Documented by: Promethazine HCl 12.5 mg/ (Sodium Chloride) 50.5 mls @ 202 mls/hr IV Q6H PRN PRN Reason: Nausea And Vomiting Stop: 02/16/19 14:44 Insulin Aspart (Novolog Flexpen) 0 units SC ACHS [facility] Stop: 02/13/19 11:29 Last Admin: 01/17/19 12:26 Dose: Not Given Documented by: Lidocaine (Lidoderm 5%) 2 patch TD DAILY [facility] Stop: 02/13/19 10:29 Last Admin: 01/17/19 08:48 Dose: 2 patch Documented by: Lorazepam (Ativan) 0.5 mg PO Q6H PRN PRN Reason: Anxiety Stop: 02/13/19 09:44 Last Admin: 01/15/19 23:47 Dose: 0.5 mg Documented by: Metoprolol Succinate (Toprol Xl) 50 mg PO DAILY [facility] Stop: 02/13/19 10:29 Last Admin: 01/17/19 08:48 Dose: 50 mg Documented by: Miscellaneous (Remove Lidoderm Patch) 2 ea N/A DAILY@2100 [facility] Stop: 02/13/19 20:59 Last Admin: 01/16/19 21:16 Dose: 2 ea Documented by: Nystatin (Mycostatin) 1 appln EXT BID [facility] Stop: 02/13/19 12:29 Last Admin: 01/17/19 08:51 Dose: 1 appln Documented by: Ondansetron HCl (Zofran) 4 mg IV Q4H PRN PRN Reason: Nausea Stop: 02/13/19 09:44 Pantoprazole Sodium (Protonix) 40 mg PO BID [facility] Stop: 02/16/19 08:59 Last Admin: 01/17/19 09:39 Dose: 40 mg Documented by: Raspberry (Raspberry) 5 ml PO Q6H [facility] Stop: 01/28/19 10:29 Last Admin: 01/17/19 11:44 Dose: 5 ml Documented by: Tamsulosin HCl (Flomax) 0.4 mg PO HS [facility] Stop: 02/13/19 20:59 Last Admin: 01/16/19 21:15 Dose: 0.4 mg Documented by: Tramadol HCl (Ultram) 50 mg PO Q4H PRN PRN Reason: pain Stop: 02/13/19 09:44 Last Admin: 01/16/19 14:09 Dose: 50 mg Documented by: Vancomycin HCl (Vancomycin Hcl) 250 mg PO Q6 [facility] Stop: 01/24/19 10:29 Last Admin: 01/17/19 11:44 Dose: 250 mg Documented by: PG Care Time/CCT Total # of Minutes Spent Total Time Spent with Patient: Total time spent is greater than 50% in coordination of care (as documented) at patient's floor/unit and/or counseling patient: (1) Unstageable pressure ulcer of heel Laterality: left Qualified Code(s): L89.620 - Pressure ulcer of left heel, unstageable (2) Low back pain Back pain laterality: midline Chronicity: acute Sciatica presence: without sciatica Qualified Code(s): M54.5 - Low back pain (3) Anemia Anemia type: unspecified type Qualified Code(s): D64.9 - Anemia, unspecified
[2019-01-17 15:25] LABS: Hematocrit (blood only) 27.3 % (42-52)
[2019-01-17] MEDS: ACETAMINOPHEN 325 MG TAB PO PRN (20:51)
[2019-01-17] MEDS: TAMSULOSIN HCL 0.4 MG CAP PO SCH (20:53)
[2019-01-18] MEDS: RASPBERRY SYRUP 5 ML UDP PO SCH ×4 (05:10→23:32)
[2019-01-18] MEDS: VANCOMYCIN HCL 250 MG/5 ML SOLN PO SCH ×4 (05:10→23:31)
[2019-01-18 06:47] LABS: Hematocrit (blood only) 25.2 % (42-52); Hemoglobin 8.5 g/dL (14.0-18.0); Mean Corpuscular Hgb Conc 33.7 g/dL (32-36); Mean Corpuscular Volume 89.7 fL (80-100); Mean Platelet Volume 9.2 fL (7.4-10.4); Platelet Count 136 K/uL (130-400); RDW Coefficient of Variation 15.3 % (11.5-14.5); RDW Standard Deviation 50.3 fL (36.4-46.3); Red Blood Count 2.81 M/uL (4.7-6.1); White Blood Count 6.05 K/uL (4.8-10.8)
[2019-01-18 07:13] LABS: BUN Creatinine Ratio 7.9 (10-20); Creatinine Clr Calc Pharmacy 103.1 ml/min; Est GFR (Non-African American) 94.1; Potassium 3.8 mmol/L (3.5-5.1)
[2019-01-18] MEDS: DIVALPROEX DELAY RELEASE 250 MG TABEC PO SCH ×2 (08:53→20:28)
[2019-01-18] MEDS: PANTOprazole 40 MG TAB PO SCH ×2 (08:53→20:27)
[2019-01-18] MEDS: METOPROLOL SUCC 50MG EXT REL TAB PO SCH (08:53)
[2019-01-18] MEDS: ATORVASTATIN 40 MG TAB PO SCH (08:53)
[2019-01-18] MEDS: GABAPENTIN 100 MG CAP PO SCH ×2 (08:54→20:29)
[2019-01-18] MEDS: LIDOCAINE 5% 1 PATCH TD SCH (08:54)
[2019-01-18] MEDS: NYSTATIN OINT 15 GM TUBE EXT SCH ×2 (08:55→20:30)
[2019-01-18] MEDS: INSULIN ASPART 100 UNITS/ML 3 ML PEN SC SCH ×4 (08:57→20:33)
[2019-01-18] MEDS: SODIUM CHLORIDE 0.9% 1000ML 1,000 ML IV SCH (11:41)
--- NOTE | 2019-01-18 13:03 | Hospitalist Progress Note ---
Date of Service January 18, 2019 Assessment & Plan (1) C. difficile colitis: Acute onset night prior to admission, several bouts of diarrhea, abdominal pain, nausea and vomiting CT showed non-specific colitis tested positive for C diff toxin A Norovirus negative Stool culture negative Much improved now -Continue Vancomycin 250mg PO QID -will need 14 days of treatment, last day would be 01/29 -Added Questran to bulk up stools, helping -Recommend follow up with ID in 1-2 weeks (2) Hematemesis: possible hematemesis, certainly his emesis was dark but not exactly coffee ground has happened twice, once evening 01/16 and then morning 01/17 gastric fluid tested heme positive however, Hb trended up to 9.0 in the morning and remained at 9.0 in the afternoon of 01/16, slightly down today to 8.5 no melena -Continue to hold aspirin and Plavix and Heparin -Continue Protonix 40mg BID which was added on -Consult Dr. Lynn who has seen him in the past for PEG tube placement/removal- awaiting consultation (3) Altered mental status: slightly lethargic but he is oriented to person, place and time on admission likely due to infection and some mild dehydration resolved with fluids and treatment of C. difficile colitis this represented metabolic encephalopathy (4) Anemia: Hb was 8.7 on admission, down to 8.2 on 01/14 after some fluids is lower than one month ago when it was 10.9 on discharge during last admission he was transfused two units anemia work up completed and was normal Hb slightly lower today at 8.5 as above -Continue to monitor with possible hematemesis -Holding antiplatelets and heparin (5) Coronary artery disease: h/o CAD no chest pain holding aspirin and Plavix for time being with possible GI bleeding -Continue atorvastatin, metoprolol (6) Ischemic cardiomyopathy: With chronic systolic CHF, most recent LVEF 25-30%, inferior wall akinesis and all other rojas hypokinetic Some edema in left leg but otherwise examines euvolemic cautious administration of IV fluids in setting of diarrhea and dehydration does not take Lasix as outpatient (7) Stage III chronic kidney disease: Cr is stable throughout admission continue to monitor (8) Chronic systolic heart failure: examines euvolemic at this time as above -Continue metoprolol Is not on an KACEY inhibitor-consider adding this on (9) Low back pain: pain is controlled with Ultram was taking Oxycodone in recent past so this is improvement (10) Urinary retention: Has a history of chronic indwelling Rojas which was removed since last admission -With evidence of UTI on urinalysis and growing Klebsiella on urine culture -Will treat with Keflex 500 mg p.o. twice daily x10-day course (11) Weakness of lower extremity: Secondary to chronic back issues with multiple back surgeries Needs PT/OT (12) Edema: As above secondary to CHF Improved (13) Uncontrolled type 2 diabetes mellitus with neurologic complication, with long-term current use of insulin: use Novolog SS monitor for hypoglycemia, no episodes diabetic diet (14) Obesity, Class II, BMI 35-39.9: BMI 31 (15) Anxiety: Lorazepam PRN (16) Unstageable pressure ulcer of heel: wound care following, will wear waffle boots in bed likely get fitted for orthotic shoe to offload heel when he does get up Plan: needs GI consult for possible GI bleeding continue Vanco PO for C diff colitis continue PT/OT is prepared to take him home if needed has Martha lift, ramps, hand rails and support at home may qualify for more Skilled days at SNF due to new C diff infection case management following anticipate ready for d/c Saturday/Saturday depending on GI work up and symptoms resolving Subjective Patient feeling improved today. He is tolerating p.o. and denies any nausea or vomiting. Denies abdominal pain. He is only had one bowel movement so far today that he reports was more formed. He does report difficulty with urination and feels like he is not completely voiding and has frequency. Bladder scans have been less than 300 mL's Patient reports that he has been unable to ambulate much despite being at rehab. Review of Systems Review of Systems: All systems reviewed & are unremarkable except as noted in HPI & below Physical Exam Constitutional: WD/WN, vitals as above Eyes: PERRL, conjunctivae normal, anicteric sclerae ENMT: external ear and nose normal, oropharynx normal Neck: trachea midline, no thyromegaly Respiratory: normal respiratory effort, lungs clear to auscultation Cardiovascular: RRR, no murmur, no edema Gastrointestinal (Abdomen): normal bowel sounds, soft, nontender, no hepatosplenomegaly Musculoskeletal: Extremities: extremities normal to inspection; no cyanosis and no clubbing Skin: no rashes, warm and dry Neurologic: + focal motor deficit (with weakness throughout LEs bilat, 3/5) and awake Psychiatric: Orientation: alert, oriented to person and cooperative Results & Data Vital Signs (Past 12 Hours) Vital Signs Temp Pulse Resp BP Pulse Ox 01/18/19 07:20 36.4 C L 74 18 155/83 H 99 Laboratory Results 01/18/19 01/18/19 01/18/19 Range/Units 16:54 11:30 07:35 WBC (4.8-10.8) K/uL RBC (4.7-6.1) M/uL Hgb (14.0-18.0) g/dL Hct (42-52) % MCV (80-100) fL MCH (25-34) pg MCHC (32-36) g/dL RDW Std Deviation (36.4-46.3) fL RDW Coeff of Norbert (11.5-14.5) % Plt Count (130-400) K/uL MPV (7.4-10.4) fL Sodium (136-145) mmol/L Potassium (3.5-5.1) mmol/L Chloride (98-107) mmol/L Carbon Dioxide (21-32) mmol/L Anion Gap (3-11) BUN (7-18) mg/dl Creatinine (0.6-1.4) mg/dl Est Cr Clr Drug Dosing ml/min Est GFR ( Amer) Est GFR (Non-Af Amer) BUN/Creatinine Ratio (10-20) Glucose (70-99) mg/dl POC Glucose 147 H 117 H 91 (70-99) Calcium (8.5-10.1) mg/dl Norovirus RNA (PCR) 01/18/19 01/18/19 01/17/19 Range/Units 06:37 06:37 20:40 WBC 6.05 (4.8-10.8) K/uL RBC 2.81 L (4.7-6.1) M/uL Hgb 8.5 L (14.0-18.0) g/dL Hct 25.2 L (42-52) % MCV 89.7 (80-100) fL MCH 30.2 (25-34) pg MCHC 33.7 (32-36) g/dL RDW Std Deviation 50.3 H (36.4-46.3) fL RDW Coeff of Norbert 15.3 H (11.5-14.5) % Plt Count 136 (130-400) K/uL MPV 9.2 (7.4-10.4) fL Sodium 136 (136-145) mmol/L Potassium 3.8 (3.5-5.1) mmol/L Chloride 107 (98-107) mmol/L Carbon Dioxide 22 (21-32) mmol/L Anion Gap 7.0 (3-11) BUN 6 L (7-18) mg/dl Creatinine 0.78 (0.6-1.4) mg/dl Est Cr Clr Drug Dosing 103.1 ml/min Est GFR ( Amer) 109.0 Est GFR (Non-Af Amer) 94.1 BUN/Creatinine Ratio 7.9 L (10-20) Glucose 85 (70-99) mg/dl POC Glucose 101 H (70-99) Calcium 8.0 L (8.5-10.1) mg/dl Norovirus RNA (PCR) 01/14/19 Range/Units 18:25 WBC (4.8-10.8) K/uL RBC (4.7-6.1) M/uL Hgb (14.0-18.0) g/dL Hct (42-52) % MCV (80-100) fL MCH (25-34) pg MCHC (32-36) g/dL RDW Std Deviation (36.4-46.3) fL RDW Coeff of Norbert (11.5-14.5) % Plt Count (130-400) K/uL MPV (7.4-10.4) fL Sodium (136-145) mmol/L Potassium (3.5-5.1) mmol/L Chloride (98-107) mmol/L Carbon Dioxide (21-32) mmol/L Anion Gap (3-11) BUN (7-18) mg/dl Creatinine (0.6-1.4) mg/dl Est Cr Clr Drug Dosing ml/min Est GFR ( Amer) Est GFR (Non-Af Amer) BUN/Creatinine Ratio (10-20) Glucose (70-99) mg/dl POC Glucose (70-99) Calcium (8.5-10.1) mg/dl Norovirus RNA (PCR) NOT DETECTED PG Care Time/CCT Total # of Minutes Spent Total Time Spent with Patient: Total time spent is greater than 50% in coordination of care (as documented) at patient's floor/unit and/or counseling patient: (1) Unstageable pressure ulcer of heel Laterality: left Qualified Code(s): L89.620 - Pressure ulcer of left heel, unstageable (2) Low back pain Back pain laterality: midline Chronicity: acute Sciatica presence: without sciatica Qualified Code(s): M54.5 - Low back pain (3) Anemia Anemia type: unspecified type Qualified Code(s): D64.9 - Anemia, unspecified
[2019-01-18] MEDS: cephALEXin 500 MG CAP PO SCH ×2 (14:31→20:30)
[2019-01-18] MEDS: ACETAMINOPHEN 325 MG TAB PO PRN ×2 (19:45→23:31)
[2019-01-18] MEDS: TAMSULOSIN HCL 0.4 MG CAP PO SCH (20:29)
[2019-01-19 06:21] LABS: Basophils # (auto) 0.03 K/uL (0-0.2); Basophils % (auto) 0.4 %; Eosinophils # (auto) 0.18 K/uL (0-0.5); Eosinophils % (auto) 2.6 %; Hematocrit (blood only) 25.7 % (42-52); Hemoglobin 8.9 g/dL (14.0-18.0); Immature Granulocytes # (auto) 0.03 K/uL (0.00-0.02); Immature Granulocytes % (auto) 0.4 %; Lymphocytes # (auto) 1.05 K/uL (1.2-3.4); Lymphocytes % (auto) 15.4 %; Mean Corpuscular Hgb Conc 34.6 g/dL (32-36); Mean Corpuscular Volume 88.9 fL (80-100); Mean Platelet Volume 9.2 fL (7.4-10.4); Monocytes # (auto) 0.87 K/uL (0.11-0.59); Monocytes % (auto) 12.8 %; Neutrophils # (auto) 4.64 K/uL (1.4-6.5); Neutrophils % (auto) 68.4 %; Platelet Count 145 K/uL (130-400); RDW Coefficient of Variation 15.3 % (11.5-14.5); RDW Standard Deviation 49.8 fL (36.4-46.3); Red Blood Count 2.89 M/uL (4.7-6.1)
[2019-01-19] MEDS: RASPBERRY SYRUP 5 ML UDP PO SCH ×4 (06:35→23:30)
[2019-01-19] MEDS: VANCOMYCIN HCL 250 MG/5 ML SOLN PO SCH ×4 (06:35→23:30)
[2019-01-19 06:51] LABS: BUN Creatinine Ratio 7.7 (10-20); Creatinine Clr Calc Pharmacy 105.9 ml/min; Est GFR (African American) 110.2; Est GFR (Non-African American) 95.1; Potassium 3.7 mmol/L (3.5-5.1)
[2019-01-19] MEDS: NYSTATIN OINT 15 GM TUBE EXT SCH ×2 (07:52→20:42)
[2019-01-19] MEDS: GABAPENTIN 100 MG CAP PO SCH ×2 (07:53→20:42)
[2019-01-19] MEDS: METOPROLOL SUCC 50MG EXT REL TAB PO SCH (07:53)
[2019-01-19] MEDS: DIVALPROEX DELAY RELEASE 250 MG TABEC PO SCH ×2 (07:53→20:41)
[2019-01-19] MEDS: PANTOprazole 40 MG TAB PO SCH ×2 (07:53→20:40)
[2019-01-19] MEDS: LIDOCAINE 5% 1 PATCH TD SCH (07:53)
[2019-01-19] MEDS: cephALEXin 500 MG CAP PO SCH ×2 (07:53→20:41)
[2019-01-19] MEDS: ATORVASTATIN 40 MG TAB PO SCH (07:53)
[2019-01-19] MEDS: INSULIN ASPART 100 UNITS/ML 3 ML PEN SC SCH ×4 (08:46→21:10)
--- NOTE | 2019-01-19 14:21 | Gastrointestinal Consultation ---
Date of Consultation January 19, 2019 Assessment & Plan (1) Hematemesis: Mr. Leandro Cooper is a 68 yr old male who has recently undergone procedures and IV antibiotics for an epidural abscess. He experienced hematemesis w/o a drop in Hb/Hct or elevation in BUN. Suspect mild gastritis related to hospitalization/illness. Recommend daily po PPI. Would defer EGD at this time, though will discuss with Dr. Lynn on his return tomorrow. Present on Admission?: Yes Supervising Physician Co-Signing Physician Notes I have seen and examined the patient and discussed the management with ANGY De La Torre. 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 GI consult to Dr. Lynn for an isolated episode of hematemesis on the weekend that has now resolved on IV PPI. Active C diff colitis on treatment with Vancomycin. PE - well nourished male in nad, on contact isolated, abd soft nt nd +bs Labs reviewed CT scan showing colitis likely from underlying c diff. Agree with further plan of care as per Taylor's assessment and plan. No plans for EGD today. This consult was seen for Dr. Lynn. History of Present Illness Reason for Consultation: Hematemesis Requesting Physician: Dr. Tai Burr Attending Physician: Candi Dexter MD History of Present Illness Mr. Leandro Cooper is a 68 yr old male with an epidural abscess who has recently undergone fdc IV antibiotics. He was admitted on 01/14, brought from [facility] for nausea/vomiting. GI was consulted on 01/17 for hematemesis. The pt tells me that he had an episode of vomiting prior to admission but is eating well now, tolerating regular foods. He denies any abdominal pain or blood in BMs. Hb has been stable: On arrival 8.6, today 8.2. Of note, he underwent PEG tube removal on 01/[address] Lynn as the PEG was no longer needed. Allergies Allergy/AdvReac Type Severity Reaction Status Date / Time No Known Drug Allergies Allergy Unknown Unverified 01/14/19 05:45 Home Medications Home Medications Medication Instructions Recorded Confirmed Type acetaminophen [Tylenol] 650 mg PO Q8 PRN 12/01/18 01/14/19 History aspirin [Aspir-81] 81 mg PO DAILY 12/01/18 01/14/19 History bisacodyl [Dulcolax (bisacodyl)] 10 mg VA UD PRN 12/01/18 01/14/19 History cholecalciferol (vitamin D3) 2,000 unit PO DAILY 12/01/18 01/14/19 History [Vitamin D3] clopidogrel [Plavix] 75 mg PO DAILY 12/01/18 01/14/19 History divalproex 250 mg PO Q12 12/01/18 01/14/19 History finasteride 5 mg PO DAILY 12/01/18 01/14/19 History insulin lispro [Humalog U-100 1 sliding scale dose SUBCUT 12/01/18 01/14/19 History Insulin] USEASDIRECTD metoprolol succinate [Toprol XL] 50 mg PO DAILY 12/01/18 01/14/19 History atorvastatin 40 mg PO QAM #1 tab 12/16/18 01/14/19 Rx gabapentin 100 mg PO BID #2 cap 12/16/18 01/14/19 Rx polyethylene glycol 3350 [Miralax] 17 g PO DAILY #1 ea 12/16/18 01/14/19 Rx tramadol 50 mg PO Q4H PRN #3 tab 12/16/18 01/14/19 Rx Fleet Enema 118 ml VA HS PRN 01/09/19 01/14/19 History lorazepam 0.5 mg PO Q6H PRN 01/09/19 01/14/19 History magnesium hydroxide [Milk of 30 ml PO DAILY PRN 01/09/19 01/14/19 History Magnesia] lidocaine 2 patch TRANSDERMAL DIRECTED 01/14/19 01/14/19 History tamsulosin [Flomax] 0.4 mg PO HS 01/14/19 01/14/19 History Patient History Medical History Vitamin D deficiency (Acute) Urinary incontinence (Acute) Thyroid disorder (Acute) Spinal stenosis (Acute) Sleep-wake schedule disorder, delayed phase type (Acute) Restless legs syndrome (Acute) Nicotine dependence (Acute) Dyslipidemia (Acute) Diverticulosis (Acute) Disc degeneration, lumbar (Acute) Diabetic retinopathy (Acute) Diabetic peripheral neuropathy (Acute) Depression (Acute) Carotid artery stenosis (Acute) Benign localized hyperplasia of prostate with urinary obstruction (Acute) Anxiety (Acute) Anemia (Acute) Abscess in epidural space of lumbar spine (Acute) [employer]INE[employer] 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 Admitted [facility] 10/18/11 for onset of incapacitating cervical myelopathy. Spinal tap showed R[employer] ENGINE[employer] Lyme disease, MRI showed severe spinal cord compression at C3-4 with myelomalacia and intramedullary mass. Pt had c-spine surgery, subsequent prolonged hospital admission, complicated post-op course. Sudden cardiac Post-op 2011 [facility]. Now has ICD. Sleep apnea PT NOT CURRENTLY CPAP 2/2 recurrent sinus infections. WILL SEE SLEEP MEDICINE/DR. ARCHULETA LATE 2017 Diabetes mellitus, type 2 IDDM. Degenerative disc disease Ischemic cardiomyopathy EF WNL 11/2017 CAD (coronary artery disease) s/p triple CABG 2002 Full dentures (Acute) HTN (hypertension) (Acute) CHF (congestive heart failure) Chronic kidney disease, stage III (moderate) Chronic sinusitis Dysphagia History of non-ST elevation myocardial infarction (NSTEMI) ICD (implantable cardioverter-defibrillator) in place Surgical History History of esophagogastroduodenoscopy (EGD) History of colonoscopy History of cardiac cath 2011 AT [facility] - UNSURE IF HE HAS STENTS. Difficult airway for intubation History of tracheostomy Hx of transurethral resection of prostate History of cataract extraction with lens replacement Hx of tonsillectomy (Acute) H/O cervical spine surgery (Acute) ACDI C3-4, C7 corpectomy, removal of C7 intramedullary mass. History of lumbar spinal fusion (Acute) S/P triple vessel bypass (Acute) [id number] History of incision and drainage Lumbar spine on 08/11; complicated by difficult intubation with only #6.5 ETT able to be placed and patient kept intubated post op History of lumbar surgery 09/10/18 Glidescope 3 okay visualization but difficulty passing ETT, unable to pass 8.0, able to pass 7.0 with some difficulty Family History Mother , age 68 of COPD and respiratory issues COPD (chronic obstructive pulmonary disease) Father , in his 40s of an [place] Myocardial infarction Other Diabetes Hypertension No pertinent family history Social History (Reviewed 01/14/19 @ 05:53 by Doreen Mesa Preferred Language: Armenian Communication Ability: Effective Visual Impairment: No Limitations Hearing Ability: Normal [place] Floors Installer Required: No Beliefs That Will Affect Care: None marital status: Current Living Situation: [facility] Current Living Situation Comment: temporarily living at [facility] 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al status: retired and disabled 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: 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 : Denies pain on urination Skin: No jaundice, itching or new rashes Constitutional: no fever and no chills Eyes: no dry eyes, no eye pain and no itchy eyes Ear, Nose, Mouth, Throat: no tinnitus, no dizziness and no hoarseness Respiratory: no cough, no dyspnea and no wheezing Cardiovascular: no chest pain, no dyspnea, no palpitations and no syncope Gastrointestinal: + nausea and + vomiting; no abdominal pain Genitourinary: no dysuria and no hematuria Integumentary: + rash Psychiatric: no depression, no hopelessness and no change in appetite Endocrine: no fatigue Physical Exam Constitutional: WD/WN, vitals as above Eyes: PERRL, conjunctivae normal, anicteric sclerae ENMT: external ear and nose normal, oropharynx normal Neck: trachea midline, no thyromegaly Respiratory: normal respiratory effort, lungs clear to auscultation Cardiovascular: RRR, no murmur, no edema Gastrointestinal (Abdomen): normal bowel sounds, soft, nontender, no hepatosplenomegaly Percussion/Palpation: abdomen soft; abdomen nontender PEG tube site healing well. Musculoskeletal: no cyanosis or clubbing, extremities motor strength 5/5 Skin: no rashes, warm and dry Neurologic: PERRL, EOMI, accommodation nl, no face palsy, no dysarthria Psychiatric: A+Ox3, euthymic affect Lymphatic: no cervical or axillary lymphadenopathy Results & Data Vital Signs (Past 12 Hours) Vital Signs Temp Pulse Resp BP Pulse Ox 01/19/19 07:27 36.7 C 77 20 124/76 94
--- NOTE | 2019-01-19 20:14 | Hospitalist Progress Note ---
Date of Service January 19, 2019 Assessment & Plan (1) C. difficile colitis: Acute onset night prior to admission, several bouts of diarrhea, abdominal pain, nausea and vomiting CT showed non-specific colitis tested positive for C diff toxin A Norovirus negative Stool culture negative Much improved now, no further diarrhea in several days -Continue Vancomycin 250mg PO QID -will need 14 days of treatment, last day would be 01/29 -Continue Questran to bulk up stools, helping -Recommend follow up with ID in 1-2 weeks (2) Hematemesis: possible hematemesis, certainly his emesis was dark but not exactly coffee ground has happened twice, once evening 01/16 and then morning 01/17, none since then gastric fluid tested heme positive x2 however, Hb trended up to 9.0 in the morning and remained at 9.0 in the afternoon of 01/16, then slightly down to 8.5, now up to 8.9 -No melena -We will go ahead and restart aspirin and Plavix tomorrow -Continue Protonix 40mg BID which is a new medication -Appreciate GI consultation-recommend continuing PPI but no scope likely, awaiting his primary home care music therapist to return tomorrow (3) Altered mental status: slightly lethargic but was oriented to person, place and time on admission likely due to infection and some mild dehydration Now resolved with fluids and treatment of C. difficile colitis This represented acute metabolic encephalopathy (4) Anemia: Hb was 8.7 on admission, down to 8.2 on 01/14 after some fluids, now up to 8.9 This is lower than one month ago when it was 10.9 on discharge During his last admission he was transfused two units His anemia work up completed in 11/2018 and was consistent with anemia of chronic disease with some mild iron deficiency, transferrin saturation 15% -Continue to monitor with possible hematemesis several days ago -Restarting antiplatelets as above -Start ferrous sulfate for 1 month (5) Coronary artery disease: h/o CAD with NSTEMI 10/2018 no chest pain Restarting aspirin and Plavix as above after being held for possible upper GI bleeding -Continue atorvastatin, metoprolol (6) Ischemic cardiomyopathy: With chronic systolic CHF, most recent LVEF 25-30%, inferior wall akinesis and all other rojas hypokinetic -His reduced EF is new in the last several months since an PR in October 2018 -Was initially given cautious administration of IV fluids in setting of diarrhea and dehydration, now stopped -He previously did take Lasix as outpatient, weight is up now -Continue metoprolol succinate -Restart Lasix 20 milligrams daily -Previously was on losartan and I do not see that this has been given on recent admissions, likely due to previous PAULA-restart losartan 25 mg daily and monitor BMP Would expect some rise in creatinine with restarting both of these medications (7) Stage III chronic kidney disease: Cr is stable throughout admission continue to monitor -Restarting losartan as above (8) Chronic systolic heart failure: Does not seem considerably volume overloaded, however his weight is up significantly since November by 5 kg -Continue metoprolol -Restarting previous losartan 25 mg daily as above-it seems he has not been on this in a few months -Restarting Lasix 20 mg daily which was his previous home dose (9) Low back pain: pain is controlled with Ultram was taking Oxycodone in recent past so this is improvement (10) Urinary retention: Has a history of chronic indwelling Rojas which was removed since last admission Bladder scans here have postvoid residual less than 300 -With evidence of UTI on urinalysis and growing Klebsiella on urine culture -Will treat with Keflex 500 mg p.o. twice daily x10-day course-started 01/18 (11) Weakness of lower extremity: Secondary to chronic back issues with multiple back surgeries Needs PT/OT/rehab (12) Edema: As above secondary to CHF Improved -Restarting low-dose Lasix (13) Uncontrolled type 2 diabetes mellitus with neurologic complication, with long-term current use of insulin: use Novolog SS monitor for hypoglycemia, no episodes diabetic diet (14) Obesity, Class II, BMI 35-39.9: BMI 31 (15) Anxiety: Lorazepam PRN (16) Unstageable pressure ulcer of heel: wound care following, will wear waffle boots in bed likely get fitted for orthotic shoe to offload heel when he does get up Plan: is prepared to take him home but needs 24/7 care-this will be arranged by Saturday of this week has Martha lift, ramps, hand rails and support at home Subjective No complaints. Feeling better. No diarrhea. Had one formed bowel movement this morning. Is tolerating p.o., no nausea. No chest pain or shortness of breath. Still having some feelings of urinary urgency. No further hematemesis in many days Review of Systems Review of Systems: All systems reviewed & are unremarkable except as noted in HPI & below Physical Exam Constitutional: WD/WN, vitals as above Eyes: + anicteric sclerae Neck: trachea midline, no thyromegaly Respiratory: normal respiratory effort, lungs clear to auscultation Cardiovascular: RRR, no murmur, no edema Gastrointestinal (Abdomen): normal bowel sounds, soft, nontender, no hepatosplenomegaly Inspection/Auscultation: + abdomen distended (Mild) Musculoskeletal: Extremities: extremities normal to inspection; no cyanosis and no clubbing Skin: no rashes, warm and dry Neurologic: + focal motor deficit (with weakness throughout LEs bilat, 3/5) and awake Psychiatric: A+Ox3, euthymic affect Orientation: alert, oriented to person and cooperative Results & Data Vital Signs (Past 12 Hours) Vital Signs Temp Pulse Resp BP Pulse Ox 01/19/19 15:38 36.7 C 67 18 125/75 94 Laboratory Results 01/19/19 01/19/19 01/19/19 Range/Units 20:03 16:40 11:20 WBC (4.8-10.8) K/uL RBC (4.7-6.1) M/uL Hgb (14.0-18.0) g/dL Hct (42-52) % MCV (80-100) fL MCH (25-34) pg MCHC (32-36) g/dL RDW Std Deviation (36.4-46.3) fL RDW Coeff of Norbert (11.5-14.5) % Plt Count (130-400) K/uL MPV (7.4-10.4) fL Immature Gran % (Auto) % Neut % (Auto) % Lymph % (Auto) % Horry % (Auto) % Eos % (Auto) % Baso % (Auto) % Immature Gran # (Auto) (0.00-0.02) K/uL Neut # (Auto) (1.4-6.5) K/uL Lymph # (Auto) (1.2-3.4) K/uL Horry # (Auto) (0.11-0.59) K/uL Eos # (Auto) (0-0.5) K/uL Baso # (Auto) (0-0.2) K/uL Sodium (136-145) mmol/L Potassium (3.5-5.1) mmol/L Chloride (98-107) mmol/L Carbon Dioxide (21-32) mmol/L Anion Gap (3-11) BUN (7-18) mg/dl Creatinine (0.6-1.4) mg/dl Est Cr Clr Drug Dosing ml/min Est GFR ( Amer) Est GFR (Non-Af Amer) BUN/Creatinine Ratio (10-20) Glucose (70-99) mg/dl POC Glucose 123 H 124 H 142 H (70-99) Calcium (8.5-10.1) mg/dl 01/19/19 01/19/19 01/19/19 Range/Units 07:42 05:31 05:31 WBC 6.80 (4.8-10.8) K/uL RBC 2.89 L (4.7-6.1) M/uL Hgb 8.9 L (14.0-18.0) g/dL Hct 25.7 L (42-52) % MCV 88.9 (80-100) fL MCH 30.8 (25-34) pg MCHC 34.6 (32-36) g/dL RDW Std Deviation 49.8 H (36.4-46.3) fL RDW Coeff of Norbert 15.3 H (11.5-14.5) % Plt Count 145 (130-400) K/uL MPV 9.2 (7.4-10.4) fL Immature Gran % (Auto) 0.4 % Neut % (Auto) 68.4 % Lymph % (Auto) 15.4 % Horry % (Auto) 12.8 % Eos % (Auto) 2.6 % Baso % (Auto) 0.4 % Immature Gran # (Auto) 0.03 H (0.00-0.02) K/uL Neut # (Auto) 4.64 (1.4-6.5) K/uL Lymph # (Auto) 1.05 L (1.2-3.4) K/uL Horry # (Auto) 0.87 H (0.11-0.59) K/uL Eos # (Auto) 0.18 (0-0.5) K/uL Baso # (Auto) 0.03 (0-0.2) K/uL Sodium 135 L (136-145) mmol/L Potassium 3.7 (3.5-5.1) mmol/L Chloride 105 (98-107) mmol/L Carbon Dioxide 23 (21-32) mmol/L Anion Gap 7.0 (3-11) BUN 6 L (7-18) mg/dl Creatinine 0.76 (0.6-1.4) mg/dl Est Cr Clr Drug Dosing 105.9 ml/min Est GFR ( Amer) 110.2 Est GFR (Non-Af Amer) 95.1 BUN/Creatinine Ratio 7.7 L (10-20) Glucose 87 (70-99) mg/dl POC Glucose 95 (70-99) Calcium 8.0 L (8.5-10.1) mg/dl PG Care Time/CCT Total # of Minutes Spent Total Time Spent with Patient: Total time spent is greater than 50% in coordination of care (as documented) at patient's floor/unit and/or counseling patient: (1) Unstageable pressure ulcer of heel Laterality: left Qualified Code(s): L89.620 - Pressure ulcer of left heel, unstageable (2) Low back pain Back pain laterality: midline Chronicity: acute Sciatica presence: without sciatica Qualified Code(s): M54.5 - Low back pain (3) Anemia Anemia type: unspecified type Qualified Code(s): D64.9 - Anemia, unspecified
[2019-01-19] MEDS: TAMSULOSIN HCL 0.4 MG CAP PO SCH (20:41)
[2019-01-19] MEDS: ACETAMINOPHEN 325 MG TAB PO PRN (23:30)
[2019-01-19] MEDS: LORazepam 0.5 MG TAB PO PRN (23:30)
[2019-01-20] MEDS: RASPBERRY SYRUP 5 ML UDP PO SCH ×4 (06:00→23:49)
[2019-01-20] MEDS: VANCOMYCIN HCL 250 MG/5 ML SOLN PO SCH ×4 (06:00→23:49)
[2019-01-20 06:40] LABS: Basophils # (auto) 0.03 K/uL (0-0.2); Basophils % (auto) 0.4 %; Eosinophils # (auto) 0.19 K/uL (0-0.5); Eosinophils % (auto) 2.8 %; Immature Granulocytes # (auto) 0.03 K/uL (0.00-0.02); Immature Granulocytes % (auto) 0.4 %; Lymphocytes # (auto) 0.96 K/uL (1.2-3.4); Lymphocytes % (auto) 14.3 %; Mean Corpuscular Hgb Conc 33.3 g/dL (32-36); Mean Corpuscular Volume 89.4 fL (80-100); Mean Platelet Volume 9.1 fL (7.4-10.4); Monocytes # (auto) 0.95 K/uL (0.11-0.59); Monocytes % (auto) 14.1 %; Neutrophils # (auto) 4.56 K/uL (1.4-6.5); Platelet Count 144 K/uL (130-400); RDW Coefficient of Variation 15.5 % (11.5-14.5); RDW Standard Deviation 50.3 fL (36.4-46.3); Red Blood Count 3.02 M/uL (4.7-6.1); White Blood Count 6.72 K/uL (4.8-10.8)
[2019-01-20 07:12] LABS: Albumin Level 2.3 gm/dl (3.4-5.0); BUN Creatinine Ratio 8.6 (10-20); Calcium 7.9 mg/dl (8.5-10.1); Creatinine Clr Calc Pharmacy 120.1 ml/min; Est GFR (Non-African American) 100.1; Potassium 3.8 mmol/L (3.5-5.1)
[2019-01-20 07:14] LABS: Albumin Globulin Ratio 0.7 (0.9-2); Bilirubin,Total 0.3 mg/dl (0.2-1); Globulin 3.2 gm/dl (2.5-4.0); Total Protein 5.5 gm/dl (6.4-8.2)
[2019-01-20] MEDS: GABAPENTIN 100 MG CAP PO SCH ×2 (07:52→20:20)
[2019-01-20] MEDS: cephALEXin 500 MG CAP PO SCH ×2 (07:52→20:19)
[2019-01-20] MEDS: ASPIRIN 81 MG ECTAB PO SCH (07:52)
[2019-01-20] MEDS: DIVALPROEX DELAY RELEASE 250 MG TABEC PO SCH ×2 (07:52→20:18)
[2019-01-20] MEDS: METOPROLOL SUCC 50MG EXT REL TAB PO SCH (07:52)
[2019-01-20] MEDS: ATORVASTATIN 40 MG TAB PO SCH (07:52)
[2019-01-20] MEDS: PANTOprazole 40 MG TAB PO SCH ×2 (07:52→20:21)
[2019-01-20] MEDS: NYSTATIN OINT 15 GM TUBE EXT SCH ×2 (07:53→20:19)
[2019-01-20] MEDS: LIDOCAINE 5% 1 PATCH TD SCH (07:53)
[2019-01-20] MEDS: INSULIN ASPART 100 UNITS/ML 3 ML PEN SC SCH ×4 (08:34→20:22)
[2019-01-20] MEDS: FERROUS SULFATE 325 MG TAB PO SCH ×2 (08:34→17:51)
[2019-01-20] MEDS: CLOPIDOGREL BISULFATE 75 MG TAB PO SCH (08:34)
[2019-01-20] MEDS: FUROSEMIDE 20 MG TAB PO SCH (08:34)
[2019-01-20] MEDS: LOSARTAN POTASSIUM 25 MG TAB PO SCH (08:34)
[2019-01-20] MEDS ORDERED: LISINOPRIL 2.5 MG TAB PO SCH (09:00)
[2019-01-20] MEDS: TAMSULOSIN HCL 0.4 MG CAP PO SCH (20:19)
--- NOTE | 2019-01-20 23:51 | Hospitalist Progress Note ---
Date of Service January 20, 2019 Assessment & Plan (1) C. difficile colitis: Acute onset night prior to admission, several bouts of diarrhea, abdominal pain, nausea and vomiting CT showed non-specific colitis tested positive for C diff toxin A Norovirus negative Stool culture negative Much improved now, no further diarrhea in several days -Continue Vancomycin 250mg PO QID -will need 14 days of treatment, last day would be 01/29 -Continue Questran to bulk up stools, helping -Recommend follow up with ID in 1-2 weeks (2) Hematemesis: possible hematemesis, certainly his emesis was dark but not exactly coffee ground has happened twice, once evening 01/16 and then morning 01/17, none since then gastric fluid tested heme positive x2 however, Hb trended up to 9.0 in the morning and has remained at 9.0 -No melena -already restarted aspirin and Plavix -Continue Protonix 40mg BID which is a new medication -Appreciate GI consultation-recommend continuing PPI but no scope (3) Altered mental status: slightly lethargic but was oriented to person, place and time on admission likely due to infection and some mild dehydration Now resolved with fluids and treatment of C. difficile colitis This represented acute metabolic encephalopathy (4) Anemia: Hb was 8.7 on admission, down to 8.2 on 01/14 after some fluids, now up to 9 This is lower than one month ago when it was 10.9 on discharge During his last admission he was transfused two units His anemia work up completed in 11/2018 and was consistent with anemia of chronic disease with some mild iron deficiency, transferrin saturation 15% -Continue to monitor with possible hematemesis several days ago -Restarted antiplatelets as above -Start ferrous sulfate for 1 month -follow CBC (5) Coronary artery disease: h/o CAD with NSTEMI 10/2018 no chest pain Restarted aspirin and Plavix as above after being held for possible upper GI bleeding -Continue atorvastatin, metoprolol (6) Ischemic cardiomyopathy: With chronic systolic CHF, most recent LVEF 25-30%, inferior wall akinesis and all other rojas hypokinetic -His reduced EF is new in the last several months since an SC in October 2018 -Was initially given cautious administration of IV fluids in setting of diarrhea and dehydration, now stopped -He previously did take Lasix as outpatient, weight is up now -Continue metoprolol succinate -Restarted Lasix 20 milligrams daily -Previously was on losartan and I do not see that this has been given on recent admissions, likely due to previous PAULA-restarted losartan 25 mg daily and monitor BMP Would expect some rise in creatinine with restarting both of these medications (7) Stage III chronic kidney disease: Cr is stable throughout admission continue to monitor -Restarting losartan as above (8) Chronic systolic heart failure: Does not seem considerably volume overloaded, however his weight is up significantly since November by 5 kg -Continue metoprolol -Restarting previous losartan 25 mg daily as above-it seems he has not been on this in a few months -Restarting Lasix 20 mg daily which was his previous home dose (9) Low back pain: pain is controlled with Ultram was taking Oxycodone in recent past so this is improvement (10) Urinary retention: Has a history of chronic indwelling Rojas which was removed since last admission Bladder scans here have postvoid residual less than 300 -With evidence of UTI on urinalysis and growing Klebsiella on urine culture -Will treat with Keflex 500 mg p.o. twice daily x10-day course-started 01/18 (11) Weakness of lower extremity: Secondary to chronic back issues with multiple back surgeries Needs PT/OT/rehab (12) Edema: As above secondary to CHF Improved -Restarting low-dose Lasix (13) Uncontrolled type 2 diabetes mellitus with neurologic complication, with long-term current use of insulin: use Novolog SS monitor for hypoglycemia, no episodes diabetic diet (14) Obesity, Class II, BMI 35-39.9: BMI 31 (15) Anxiety: Lorazepam PRN (16) Unstageable pressure ulcer of heel: wound care following, will wear waffle boots in bed likely get fitted for orthotic shoe to offload heel when he does get up Plan: is prepared to take him home but needs / care-this will be arranged by Saturday of this week has Martha lift, ramps, hand rails and support at home Subjective no diarrhea, no concerns at all, just wants to be discharged. No CP or OSB, no abd pain, no vomiting Review of Systems Review of Systems: All systems reviewed & are unremarkable except as noted in HPI & below Physical Exam Constitutional: WD/WN, vitals as above Eyes: PERRL, conjunctivae normal, anicteric sclerae + anicteric sclerae ENMT: external ear and nose normal, oropharynx normal Neck: trachea midline, no thyromegaly Respiratory: normal respiratory effort, lungs clear to auscultation Cardiovascular: RRR, no murmur, no edema Gastrointestinal (Abdomen): normal bowel sounds, soft, nontender, no hepatosplenomegaly Inspection/Auscultation: + abdomen distended (Mild) Musculoskeletal: Extremities: extremities normal to inspection; no cyanosis and no clubbing Skin: no rashes, warm and dry Neurologic: + focal motor deficit (with weakness throughout LEs bilat, 3/5) and awake Psychiatric: Orientation: alert, oriented to person and cooperative Results & Data Vital Signs (Past 12 Hours) Vital Signs Temp Pulse Resp BP Pulse Ox 01/20/19 23:39 36.8 C 66 18 112/68 96 01/20/19 14:48 36.4 C L 70 18 135/78 98 Laboratory Results 01/20/19 01/20/19 01/20/19 Range/Units 19:24 16:44 11:34 WBC (4.8-10.8) K/uL RBC (4.7-6.1) M/uL Hgb (14.0-18.0) g/dL Hct (42-52) % MCV (80-100) fL MCH (25-34) pg MCHC (32-36) g/dL RDW Std Deviation (36.4-46.3) fL RDW Coeff of Norbert (11.5-14.5) % Plt Count (130-400) K/uL MPV (7.4-10.4) fL Immature Gran % (Auto) % Neut % (Auto) % Lymph % (Auto) % [place] % (Auto) % Eos % (Auto) % Baso % (Auto) % Immature Gran # (Auto) (0.00-0.02) K/uL Neut # (Auto) (1.4-6.5) K/uL Lymph # (Auto) (1.2-3.4) K/uL [place] # (Auto) (0.11-0.59) K/uL Eos # (Auto) (0-0.5) K/uL Baso # (Auto) (0-0.2) K/uL Sodium (136-145) mmol/L Potassium (3.5-5.1) mmol/L Chloride (98-107) mmol/L Carbon Dioxide (21-32) mmol/L Anion Gap (3-11) BUN (7-18) mg/dl Creatinine (0.6-1.4) mg/dl Est Cr Clr Drug Dosing ml/min Est GFR ( Amer) Est GFR (Non-Af Amer) BUN/Creatinine Ratio (10-20) Glucose (70-99) mg/dl POC Glucose 173 H 150 H 122 H (70-99) Calcium (8.5-10.1) mg/dl Total Bilirubin (0.2-1) mg/dl AST (15-37) U/L ALT (12-78) U/L Alkaline Phosphatase (45-117) U/L Total Protein (6.4-8.2) gm/dl Albumin (3.4-5.0) gm/dl Globulin (2.5-4.0) gm/dl Albumin/Globulin Ratio (0.9-2) 01/20/19 01/20/19 01/20/19 Range/Units 07:55 06:20 06:20 WBC 6.72 (4.8-10.8) K/uL RBC 3.02 L (4.7-6.1) M/uL Hgb 9.0 L (14.0-18.0) g/dL Hct 27.0 L (42-52) % MCV 89.4 (80-100) fL MCH 29.8 (25-34) pg MCHC 33.3 (32-36) g/dL RDW Std Deviation 50.3 H (36.4-46.3) fL RDW Coeff of Norbert 15.5 H (11.5-14.5) % Plt Count 144 (130-400) K/uL MPV 9.1 (7.4-10.4) fL Immature Gran % (Auto) 0.4 % Neut % (Auto) 68.0 % Lymph % (Auto) 14.3 % [place] % (Auto) 14.1 % Eos % (Auto) 2.8 % Baso % (Auto) 0.4 % Immature Gran # (Auto) 0.03 H (0.00-0.02) K/uL Neut # (Auto) 4.56 (1.4-6.5) K/uL Lymph # (Auto) 0.96 L (1.2-3.4) K/uL [place] # (Auto) 0.95 H (0.11-0.59) K/uL Eos # (Auto) 0.19 (0-0.5) K/uL Baso # (Auto) 0.03 (0-0.2) K/uL Sodium 135 L (136-145) mmol/L Potassium 3.8 (3.5-5.1) mmol/L Chloride 104 (98-107) mmol/L Carbon Dioxide 22 (21-32) mmol/L Anion Gap 9.0 (3-11) BUN 6 L (7-18) mg/dl Creatinine 0.67 (0.6-1.4) mg/dl Est Cr Clr Drug Dosing 120.1 ml/min Est GFR ( Amer) 116.0 Est GFR (Non-Af Amer) 100.1 BUN/Creatinine Ratio 8.6 L (10-20) Glucose 100 H (70-99) mg/dl POC Glucose 109 H (70-99) Calcium 7.9 L (8.5-10.1) mg/dl Total Bilirubin 0.3 (0.2-1) mg/dl AST 10 L (15-37) U/L ALT 10 L (12-78) U/L Alkaline Phosphatase 72 (45-117) U/L Total Protein 5.5 L (6.4-8.2) gm/dl Albumin 2.3 L (3.4-5.0) gm/dl Globulin 3.2 (2.5-4.0) gm/dl Albumin/Globulin Ratio 0.7 L (0.9-2) PG Care Time/CCT Total # of Minutes Spent Total Time Spent with Patient: Total time spent is greater than 50% in coordination of care (as documented) at patient's floor/unit and/or counseling patient: (1) Unstageable pressure ulcer of heel Laterality: left Qualified Code(s): L89.620 - Pressure ulcer of left heel, unstageable (2) Low back pain Back pain laterality: midline Chronicity: acute Sciatica presence: without sciatica Qualified Code(s): M54.5 - Low back pain (3) Anemia Anemia type: unspecified type Qualified Code(s): D64.9 - Anemia, unspecified
[2019-01-21] MEDS: ACETAMINOPHEN 325 MG TAB PO PRN ×2 (02:19→12:30)
[2019-01-21] MEDS: RASPBERRY SYRUP 5 ML UDP PO SCH ×2 (05:58→11:32)
[2019-01-21] MEDS: VANCOMYCIN HCL 250 MG/5 ML SOLN PO SCH ×2 (05:58→11:32)
[2019-01-21 06:47] LABS: Basophils # (auto) 0.05 K/uL (0-0.2); Basophils % (auto) 0.7 %; Eosinophils # (auto) 0.23 K/uL (0-0.5); Eosinophils % (auto) 3.1 %; Hematocrit (blood only) 25.9 % (42-52); Hemoglobin 8.7 g/dL (14.0-18.0); Immature Granulocytes # (auto) 0.03 K/uL (0.00-0.02); Immature Granulocytes % (auto) 0.4 %; Lymphocytes # (auto) 0.97 K/uL (1.2-3.4); Mean Corpuscular Hgb Conc 33.6 g/dL (32-36); Mean Corpuscular Volume 89.9 fL (80-100); Mean Platelet Volume 9.6 fL (7.4-10.4); Monocytes # (auto) 0.93 K/uL (0.11-0.59); Monocytes % (auto) 12.5 %; Neutrophils # (auto) 5.24 K/uL (1.4-6.5); Neutrophils % (auto) 70.3 %; Platelet Count 152 K/uL (130-400); RDW Coefficient of Variation 15.8 % (11.5-14.5); RDW Standard Deviation 51.7 fL (36.4-46.3); Red Blood Count 2.88 M/uL (4.7-6.1); White Blood Count 7.45 K/uL (4.8-10.8)
[2019-01-21 07:41] LABS: BUN Creatinine Ratio 11.7 (10-20); Calcium 7.8 mg/dl (8.5-10.1); Creatinine Clr Calc Pharmacy 111.7 ml/min; Est GFR (African American) 112.7; Est GFR (Non-African American) 97.2; Potassium 3.6 mmol/L (3.5-5.1)
[2019-01-21] MEDS: NYSTATIN OINT 15 GM TUBE EXT SCH (07:58)
[2019-01-21] MEDS: ASPIRIN 81 MG ECTAB PO SCH (07:58)
[2019-01-21] MEDS: LOSARTAN POTASSIUM 25 MG TAB PO SCH (07:59)
[2019-01-21] MEDS: LIDOCAINE 5% 1 PATCH TD SCH (07:59)
[2019-01-21] MEDS: cephALEXin 500 MG CAP PO SCH (07:59)
[2019-01-21] MEDS: GABAPENTIN 100 MG CAP PO SCH (07:59)
[2019-01-21] MEDS: PANTOprazole 40 MG TAB PO SCH (07:59)
[2019-01-21] MEDS: ATORVASTATIN 40 MG TAB PO SCH (07:59)
[2019-01-21] MEDS: FERROUS SULFATE 325 MG TAB PO SCH (07:59)
[2019-01-21] MEDS: FUROSEMIDE 20 MG TAB PO SCH (07:59)
[2019-01-21] MEDS: CLOPIDOGREL BISULFATE 75 MG TAB PO SCH (07:59)
[2019-01-21] MEDS: DIVALPROEX DELAY RELEASE 250 MG TABEC PO SCH (07:59)
[2019-01-21] MEDS: METOPROLOL SUCC 50MG EXT REL TAB PO SCH (07:59)
[2019-01-21] MEDS: INSULIN ASPART 100 UNITS/ML 3 ML PEN SC SCH ×2 (08:26→12:20)
--- NOTE | 2019-01-21 13:58 | Discharge Summary ---
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 Taken for several I&D by Dr. Morales. Most recently he completed prolonged treatment with Daptomycin, Rocephin and Caspofungin. His last admission was in December 2018 and he had altered mental status attributed to opiates and risperdal. Mental status improved with stopping the risperdal and changing to Ultram. At that time he had a PEG tube which had been placed due to poor oral intake. However, he was eating better and diet was advance. Two days ago he had the PEG tube removed. He has been tolerating a mechanical soft diet at [facility]. He continues to participate with therapy. Per the patient he is not quite standing, he is not walking but he is improving with transfers. His chief complaint is diarrhea that started last night. He has associated abdominal pain and he vomited several times. No blood in the diarrhea to his knowledge. No fever or chills. He typically does not have loose stools. No history of C diff colitis. In the ED his vitals were stable with exception of some tachycardia in low 100s. WBC normal at 9, Hb 8.7, Cr is 0.9 and electrolytes stable. Troponin 0.03. CXR with no acute changes. CT abdomen/pelvis shows non-specific colitis in the rectum and colon. Diverticulosis but no diverticulitis. Treated with IV fluids and stool culture and C diff sent for. Principal Diagnosis C. difficile colitis, suspected upper GI bleed, acute metabolic encephalopathy, UTI Discharge Exam Constitutional WD/WN, vitals as above Eyes + anicteric sclerae Neck trachea midline, no thyromegaly Respiratory normal respiratory effort, lungs clear to auscultation Cardiovascular RRR, no murmur, no edema Gastrointestinal (Abdomen) normal bowel sounds, soft, nontender, no hepatosplenomegaly Inspection/Auscultation: + abdomen distended (Mild) Musculoskeletal Extremities: extremities normal to inspection; no cyanosis and no clubbing Skin no rashes, warm and dry Neurologic + focal motor deficit (with weakness throughout LEs bilat, 3/5) and awake Psychiatric A+Ox3, euthymic affect Orientation: cooperative Discharge Data Allergies Allergy/AdvReac Type Severity Reaction Status Date / Time No Known Drug Allergies Allergy Unknown Unverified 01/14/19 05:45 Consultations 01/14/19 07:46 ED Decision to Admit Stat 01/14/19 09:45 Consult Case Management - Discharge Planning Routine 01/14/19 12:22 Consult Wound Care Provider Routine 01/17/19 14:50 Consult Gastroenterology Routine Ordered Studies 01/14/19 05:44 CT abd pelvis IV con only Stat Chest x-ray Hospital Course (1) C. difficile colitis: Acute onset night prior to admission, several bouts of diarrhea, abdominal pain, nausea and vomiting CT showed non-specific colitis tested positive for C diff toxin A Norovirus negative Stool culture negative Much improved now, no further diarrhea in many days -Continue Vancomycin 250mg PO QID -will need 14 days of treatment, last day would be 01/29 -Continue Questran to bulk up stools, helping -Recommend follow up with ID in 1-2 weeks (2) Hematemesis: possible hematemesis, certainly his emesis was dark but not exactly coffee ground has happened twice, once evening 01/16 and then morning 01/17, none since then gastric fluid tested heme positive x2 however, Hb trended up to 9.0 in the morning and has remained around 8.7-9.0 -No melena -Have since restarted aspirin and Plavix -Continue Protonix 40mg BID which is a new medication for at least 1 month -Appreciate GI consultation-recommend continuing PPI but no scope (3) Altered mental status: slightly lethargic but was oriented to person, place and time on admission likely due to infection and some mild dehydration Now resolved with fluids and treatment of C. difficile colitis This represented acute metabolic encephalopathy (4) Anemia: Hb was 8.7 on admission, down to 8.2 on 01/14 after some fluids, now stable at 8.7-9.0 This is lower than one month ago when it was 10.9 on discharge During his last admission he was transfused two units His anemia work up completed in 11/2018 and was consistent with anemia of chronic disease with some mild iron deficiency, transferrin saturation 15% -Restarted antiplatelets as above -Start ferrous sulfate for 1 month -follow CBC in 1 week (5) Coronary artery disease: h/o CAD with NSTEMI 10/2018 no chest pain Restarted aspirin and Plavix as above after being held for possible upper GI bleeding -Continue atorvastatin, metoprolol (6) Ischemic cardiomyopathy: With chronic systolic CHF, most recent LVEF 25-30%, inferior wall akinesis and all other rojas hypokinetic -His reduced EF is new in the last several months since an [place] in October 2018 -Was initially given cautious administration of IV fluids in setting of diarrhea and dehydration, now stopped -He previously did take Lasix as outpatient, weight was then up and Lasix was restarted -Continue metoprolol succinate -Restarted Lasix 20 milligrams daily -Previously was on losartan and I do not see that this has been given on recent admissions, likely due to previous PAULA-restarted losartan 25 mg daily Would expect some rise in creatinine with restarting both of these medications -Follow BMP in 1 week (7) Stage III chronic kidney disease: Cr is stable throughout admission continue to monitor -Restarting losartan as above (8) Chronic systolic heart failure: Does not seem considerably volume overloaded, however his weight is up significantly since November by 5 kg Has some mild edema in the lower extremities -Continue metoprolol -Restarting previous losartan 25 mg daily as above-it seems he has not been on this in a few months -Restarting Lasix 20 mg daily which was his previous home dose (9) Low back pain: pain is controlled with Ultram was taking Oxycodone in recent past so this is improvement (10) Urinary retention: Has a history of chronic indwelling Rojas which was removed since last admission Bladder scans here have postvoid residual less than 300 -With evidence of UTI on urinalysis and growing Klebsiella on urine culture -Will treat with Keflex 500 mg p.o. twice daily x10-day course-started 01/18 and last dose will be on 01/28 (11) Weakness of lower extremity: Secondary to chronic back issues with multiple back surgeries Needs PT/OT/rehab (12) Edema: As above secondary to CHF Improved -Restarting low-dose Lasix (13) Uncontrolled type 2 diabetes mellitus with neurologic complication, with long-term current use of insulin: use Novolog SS monitor for hypoglycemia, no episodes diabetic diet (14) Obesity, Class II, BMI 35-39.9: BMI now down to 31 (15) Anxiety: Lorazepam PRN (16) Unstageable pressure ulcer of heel: wound care following, was debrided on 01/14/2019 -Will wear waffle boots in bed -Likely get fitted for orthotic shoe to offload heel when he does get up -Needs follow-up with wound care clinic in 1 week Disposition-stable for discharge to assisted facility today Total Time Total Time Spent Total Time Spent (In Minutes): Greater than 30 minutes Total Time Includes: Examination of the Patient, Discharge Planning and Medication Reconciliation Discharge Plan Discharge Items Patient Disposition: Transfer [facility] Reason For Visit: COLITIS,ALTERED MENTAL STATUS Discharge Diagnosis: C. difficile colitis, acute metabolic encephalopathy, hematemesis and acute blood loss anemia, UTI Condition: Fair Discharge Goals: Decrease discomfort, Diagnostic testing, Improve disease control, Learn about illness and Therapeutic intervention Activity: As commented below Lifting: Gradually increase as tolerated Bathing: No limitations Exercise/Sports: Gradually increase as tolerated Exercise Comment: Needs PT/OT to improve ambulation Non-emergency contact: Primary Care Provider Call non-emergency contact if: you have any medication questions, your symptoms worsen, your pain is not controlled, your pain is worsening, your pain is unusual for you, you have a fever and your temperature is above 100.5 Follow-up/Referrals: Philip Braxton [Primary Care Provider] - Diet: Carb Consistent or DM2 and Low Sodium (2gm) Addtl Provider Instructions: Mr. Cooper was admitted with C. difficile colitis with diarrhea. He was treated for this and had improvement. He needs to finish out a course of oral vancomycin. He was also treated for UTI needs to finish out a course of oral Keflex for this. He did have some suspected hematemesis while he was here and had an acute drop in his blood count. He was treated for that with Protonix and it resolved. He should remain on Protonix and was started on ferrous sulfate as well. Please check a CBC and CMP in 1 week. He needs aggressive physical and occupational therapy due to his history of ambulatory dysfunction and multiple back surgeries and multiple hospitalizations for critical illness. He also needs follow-up with the wound care clinic within 1 week for his left heel ulcer. Prescriptions: New cephalexin 500 mg Capsule 500 mg PO BID Qty: 14 RF: 0 nystatin 100,000 unit/gram Ointment 1 applic EXT BID Qty: 15 RF: 0 pantoprazole 40 mg Tablet,Delayed Release (Dr/Ec) 40 mg PO BID Qty: 60 RF: 0 losartan 25 mg Tablet 25 mg PO QAM Qty: 30 RF: 0 furosemide 20 mg Tablet 20 mg PO QAM Qty: 30 RF: 0 ferrous sulfate 325 mg (65 mg iron) Tablet,Delayed Release (Dr/Ec) 325 mg PO BIDM Qty: 60 RF: 0 vancomycin [Vancocin] 250 mg capsule 250 mg PO Q6H 8 Days Qty: 32 RF: 0 Cholestyramine Light 4 gram powder 4 gm PO BID 10 Days Qty: 210 RF: 0 Continued tamsulosin [Flomax] 0.4 mg Capsule 0.4 mg PO HS RF: 0 lidocaine 5 % adhesive patch,medicated 2 patch transdermal DIRECTED RF: 0 tramadol 50 mg Tablet 50 mg PO Q4H PRN (Reason: pain) Qty: 12 RF: 0 lorazepam 0.5 mg Tablet 0.5 mg PO Q6H PRN (Reason: Anxiety) Qty: 12 RF: 0 acetaminophen [Tylenol] 325 mg Tablet 650 mg PO Q8 PRN (Reason: Fever Or Pain) RF: 0 divalproex 250 mg Tablet,Delayed Release (Dr/Ec) 250 mg PO Q12 RF: 0 metoprolol succinate [Toprol XL] 50 mg Tablet Extended Release 24 Hr 50 mg PO DAILY RF: 0 clopidogrel [Plavix] 75 mg Tablet 75 mg PO DAILY RF: 0 aspirin [Aspir-81] 81 mg Tablet,Delayed Release (Dr/Ec) 81 mg PO DAILY RF: 0 insulin lispro [Humalog U-100 Insulin] 100 unit/mL Solution 1 sliding scale dose SUBCUT USEASDIRECTD RF: 0 finasteride 5 mg Tablet 5 mg PO DAILY RF: 0 cholecalciferol (vitamin D3) [Vitamin D3] 1,000 unit Tablet 2,000 unit PO DAILY RF: 0 gabapentin 100 mg Capsule 100 mg PO BID Qty: 2 RF: 0 atorvastatin 40 mg Tablet 40 mg PO QAM Qty: 1 RF: 0 Discontinued bisacodyl [Dulcolax (bisacodyl)] 10 mg Suppository 10 mg NE UD PRN (Reason: Constipation) RF: 0 polyethylene glycol 3350 [Miralax] 17 gram Powder In Packet 17 g PO DAILY Qty: 1 RF: 0 magnesium hydroxide [Milk of Magnesia] 400 mg/5 mL Suspension 30 ml PO DAILY PRN (Reason: Constipation) RF: 0 Fleet Enema 19-7 gram/118 mL Enema 118 ml NE HS PRN (Reason: Constipation) RF: 0 Stand-Alone Forms: Discharge CDI, [facility] Discharge Orders: Discharge Order (Routine); Ordered 01/21/19 Ordered By: Candi Dexter Skilled Items Patient informed of condition?: Yes DNR: Yes Discharge Level of Care: Skilled Communicable Disease: No Discharge Prognosis: Improving Admission Data Admit Date/Time: 01/14/19 07:43 Attending Provider: Candi Dexter Admit Provider: Tai Burr Primary Care Provider: Philip Braxton Other Providers: Tai Burr ; Reji Selby ; Huy Lynn Service: Medical Other Pending Studies at Discharge: No
== END 2019-01-21 16:27 | DRG 371 ==
LOC: ED 05:23 → 2S 07:43 → SUATTDRO 07:43 → 2S 09:12 → 2N 01-15 13:37 → 4W 01-18 03:47

== ENCOUNTER 2019-01-31 00:04 | Inpatient (IN) ==
[2019-01-31] MEDS ORDERED: ACETAMINOPHEN 325 MG SUPP PR STA (00:39)
[2019-01-31] MEDS ORDERED: SODIUM CHLORIDE 0.9% 1000ML 500 ML IV ONE (00:39)
[2019-01-31 00:53] LABS: Appearance Urine Turbid (Clear); Bacteria Urine Automated 4+ (Negative); Bilirubin Urine Negative (Negative); Blood Urine 2+ (Negative); Color Urine Yellow; Glucose Urine UA Negative (Negative); Ketones Urine Negative (Negative); Leukocyte Esterase Urine 3+ (Negative); Nitrite Urine Negative (Negative); Protein Urine Trace (Negative); Specific Gravity Urine 1.016 (1.000-1.030); Urobilinogen Urine Negative (Negative); WBC Urine Automated >30 /hpf (0-5); pH Urine 5.5 (4.5-7.5)
[2019-01-31] MEDS ORDERED: IMIPENEM/CILASTATIN SODIUM 500 MG in DEXTROSE 5% 100 ML IV STA (01:23)
[2019-01-31 01:36] LABS: Alanine Aminotransferase 14 U/L (12-78); Albumin Level 2.4 gm/dl (3.4-5.0); Aspartate Aminotransferase 23 U/L (15-37); BUN Creatinine Ratio 17.6 (10-20); Blood Urea Nitrogen 18 mg/dl (7-18); Calcium 8.3 mg/dl (8.5-10.1); Carbon Dioxide 27 mmol/L (21-32); Chloride 98 mmol/L (98-107); Est GFR (African American) 85.3; Est GFR (Non-African American) 73.6; Glucose 141 mg/dl (70-99); Potassium 5.3 mmol/L (3.5-5.1); Sodium 132 mmol/L (136-145)
[2019-01-31 01:39] LABS: Albumin Globulin Ratio 0.6 (0.9-2); Alkaline Phosphatase 71 U/L (45-117); Bilirubin,Total 0.5 mg/dl (0.2-1); Globulin 3.7 gm/dl (2.5-4.0); Total Protein 6.1 gm/dl (6.4-8.2)
[2019-01-31] MEDS: SODIUM CHLORIDE 0.9% 500 ML IV SCH ×2 (01:45→06:27)
[2019-01-31] MEDS ORDERED: DAPTOmycin 500 MG in SYRINGE 0 ML IV STA (01:53)
[2019-01-31 01:54] LABS: Hematocrit (blood only) 26.6 % (42-52); Mean Corpuscular Hemoglobin 30.6 pg (25-34); Mean Corpuscular Hgb Conc 33.8 g/dL (32-36); Mean Corpuscular Volume 90.5 fL (80-100); Mean Platelet Volume 9.1 fL (7.4-10.4); Platelet Count 147 K/uL (130-400); RDW Coefficient of Variation 15.4 % (11.5-14.5); RDW Standard Deviation 51.2 fL (36.4-46.3); Red Blood Count 2.94 M/uL (4.7-6.1); White Blood Count 9.38 K/uL (4.8-10.8)
[2019-01-31 01:55] LABS: Basophils # (auto) 0.03 K/uL (0-0.2); Basophils % (auto) 0.3 %; Eosinophils # (auto) 0.01 K/uL (0-0.5); Eosinophils % (auto) 0.1 %; Immature Granulocytes # (auto) 0.04 K/uL (0.00-0.02); Immature Granulocytes % (auto) 0.4 %; Lymphocytes # (auto) 0.89 K/uL (1.2-3.4); Lymphocytes % (auto) 9.5 %; Monocytes # (auto) 1.07 K/uL (0.11-0.59); Monocytes % (auto) 11.4 %; Neutrophils # (auto) 7.34 K/uL (1.4-6.5); Neutrophils % (auto) 78.3 %; Platelet Estimate Normal (Normal)
[2019-01-31] MEDS ORDERED: ALBUMIN HUMAN 25% 12.5 GM/50 ML VIAL IV ONE (03:08)
[2019-01-31] MEDS: ALBUMIN 25% 50 ML IV SCH ×2 (03:30→05:14)
[2019-01-31] MEDS ORDERED: ICU PROTOCOL FOR HYPERGLYCEMIA PRN (05:03)
[2019-01-31] MEDS ORDERED: PIPERACILL/TAZOBAC CONSULT ACTIVE PRN (05:03)
[2019-01-31] MEDS ORDERED: VANCOMYCIN CONSULT ACTIVE PRN (05:03)
[2019-01-31] MEDS ORDERED: VANCOMYCIN HCL 2,250 MG in SODIUM CHLORIDE 0.9% 500 ML IV SCH (06:00)
[2019-01-31] MEDS ORDERED: PIPERACILLIN/TAZOBACTAM 4.5 GM in DEXTROSE 5% 100 ML IV SCH (06:00)
--- NOTE | 2019-01-31 06:12 | Critical Care Consultation ---
Date of Consultation January 31, 2019 Assessment & Plan (1) Admitted to intensive care unit: Reason Critically Ill: 68-year-old male presenting with severe sepsis from possible urinary versus soft tissue source requiring aggressive antibiotics and close hemodynamic monitoring with possible need to progress to utilization of vasoactive medications. NEURO - * CAM ICU: POSITIVE * Chronic lumbar pain status post fusions and multiple drainages of epidural abscesses. * Hold gabapentin, Ultram, and lorazepam at this point. * Confusion: * Likely metabolically encephalopathic in the setting of infection. No focal neurological deficits noted. Had presented previously with similar symptoms in the past. CARDIAC/VASCULAR - * Hypotension: * Likely in the setting of severe sepsis. * Received IV fluid resuscitation prior to arrival. * Levo fed if needed. * Poor IV access with history of multiple PICC line placements. * verbally consents to central line placement and arterial line placement if necessary. * Cautious with aggressive IV fluid resuscitation in the known CHF patient with EF of 25%. * Ischemic cardiomyopathy, coronary artery disease, hypertension, hyperlipidemia: * Hold on antihypertensive at this point. * Monitor on telemetry. RESPIRATORY - * No significant history of respiratory disease. * Monitor closely for changes in oxygen requirement. * Patient is DO NOT INTUBATE per discussion with . GI/NUTRITION - * N.p.o. at this point. * Progress diet as clinical picture unfolds. * Special soft diet per recent change at [facility]. * Recent discontinuation of PEG tube. * Recent history of C. difficile colitis successfully treated with outpatient course of oral vancomycin. No diarrhea at this point. * Prophylaxis: Famotidine RENAL/LYTES - * CKD 3 * Hyperkalemia * Will monitor status post fluid resuscitation. * IVF: NSS@125mL/hr - * Concerns for UTI in the chronic indwelling Rojas catheter patient: * Initially received IV daptomycin and imipenem. * On review of previous cultures, patient has had pansensitive Klebsiella cultures. * Please see ID * Rojas in place - Strict I&Os. ENDO - * DMII * BSGs per unit protocol. ISS --> gtt per unit policy. HEME - * h/o Anemia: * Not significantly off baseline at this point. * Monitor for any changes in hemodynamics. * Transfuse as needed. ID - * Severe sepsis: * Likely urinary source. * Agree with dual antibiotic coverage for LEFT heel pressure ulcer as well. * Received IV Dapto/Imipenem in the ED. * Agree w/ MRSA coverage w/ recent hospitalizations and [facility] stays. * Continue IV Zosyn - deescalate as cultures return. * Check Lactate/ProCal. LINES/IV ACCESS - * PIVs x1 * Rojas DVT PROPHYLAXIS - * Heparin * SCDs I have personally spent 35 minutes of critical care time in the direct management of this patient. This is a life/limb threatening event. This includes time spent evaluating patient, direct bedside care, chart review, placing orders, interpretation of diagnostic studies, discussion with consultants, patient, and family members, as well as other required patient management activities. This time is exclusive of all separately billable procedures, and teaching time and separate from and in addition to any other critical care service time. Thank you for allowing us to participate in the care of this patient. Please refer to my attending physician's documentation for any further recommendations. 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, with long-term current use of insulin: (8) Thyroid disorder: (9) Spinal stenosis: (10) Obstructive sleep apnea: (11) Edema: (12) Carotid artery stenosis: (13) Cardiac defibrillator in place: (14) Stage III chronic kidney disease: (15) Ischemic cardiomyopathy: (16) Chronic systolic heart failure: (17) Coronary artery disease: (18) HTN (hypertension): (19) High cholesterol: (20) S/P triple vessel bypass: Supervising Physician Co-Signing Physician Notes 68-year-old male with past medical history of systolic heart failure with an EF of 25 to 30%, Coronary artery disease status post CABG in 2001, ICD placement in 2011, multiple spinal epidural abscesses who came to the emergency department due to altered mental status and febrile illness. Patient had severe sepsis upon arrival and was hypotensive. He received just over 1 L fluid. His blood pressure improved. Lactate was elevated to 3.6. He did have some hyperkalemia which is resolving. Troponin was checked which was elevated to 0.099. This is likely secondary to demand ischemia. Trend troponin. Repeat lactate is 1.2. His blood pressures are 90s over 50s. He does have significant systolic heart failure and his blood pressures will likely be persistently low, chronically. I will give another 500 cc of fluid. Insert Rojas catheter to measure I's and O's. Looks like he has a severe urinary tract infection along with a possible left heel ulcer. He does have a black eschar over his left heel. Wound care consult. Continue vancomycin and Zosyn. Altered mental status is likely secondary to sepsis. He did not receive a CT of the head, however, he does not appear to be focal on exam. He was recently treated for C. difficile infection. He does not have any active diarrhea. He is at high risk for recurrence of C. difficile given that he is on broad-spectrum antibiotics once again. DVT prophylaxis with heparin. He is okay for transfer to telemetry bed. History of Present Illness Attending Physician: Sumanth Kenny MD History of Present Illness Patient is a 68-year-old male with a significant past medical history of coronary artery disease status post CABG in 2001 for multivessel disease. He is status post ICD placement in 2011 after cardiac arrest with noted poor EF of less than 25%. Patient is undergone multiple surgical interventions for recurrent spinal epidural abscesses as well. Recently, the patient was in this facility for C. difficile colitis. He successfully underwent oral treatment with vancomycin. He is currently admitted at [facility] for ongoing management of chronic conditions including malnutrition with need for PEG tube placement. PEG tube was recently discontinued and the patient has been receiving oral supplementation alone at this point. Earlier this morning, patient was noted to be febrile and not responsive to Tylenol. He was brought to the emergency department where he was noted to have labile blood pressures which did respond to IV fluid resuscitation. He received IV daptomycin and imipenem with concerns for infection of a LEFT heel pressure ulcer. He has been following with wound care to this point. Additionally, the patient was noted to have concerns for urinary tract infection as source as well. He has a chronic indwelling Rojas catheter. is present at bedside and provides historical information. She states that the patient has declined from medical standpoint over the last few months. His mental status has suffered as well given multiple recurrent infections. She states that he is more confused today than at baseline. Patient is unable to provide any further historical information. Allergies Allergy/AdvReac Type Severity Reaction Status Date / Time No Known Drug Allergies Allergy Unknown Unverified 01/14/19 05:45 Home Medications Home Medications Medication Instructions Recorded Confirmed Type acetaminophen [Tylenol] 650 mg PO Q8 PRN 12/01/18 01/14/19 History aspirin [Aspir-81] 81 mg PO DAILY 12/01/18 01/14/19 History cholecalciferol (vitamin D3) 2,000 unit PO DAILY 12/01/18 01/14/19 History [Vitamin D3] clopidogrel [Plavix] 75 mg PO DAILY 12/01/18 01/14/19 History divalproex 250 mg PO Q12 12/01/18 01/14/19 History finasteride 5 mg PO DAILY 12/01/18 01/14/19 History insulin lispro [Humalog U-100 1 sliding scale dose SUBCUT 12/01/18 01/14/19 History Insulin] USEASDIRECTD metoprolol succinate [Toprol XL] 50 mg PO DAILY 12/01/18 01/14/19 History atorvastatin 40 mg PO QAM #1 tab 12/16/18 01/14/19 Rx gabapentin 100 mg PO BID #2 cap 12/16/18 01/14/19 Rx lidocaine 2 patch TRANSDERMAL DIRECTED 01/14/19 01/14/19 History tamsulosin [Flomax] 0.4 mg PO HS 01/14/19 01/14/19 History cephalexin 500 mg PO BID #14 cap 01/21/19 Rx ferrous sulfate 325 mg PO BIDM #60 tab 01/21/19 Rx furosemide 20 mg PO QAM #30 tab 01/21/19 Rx lorazepam 0.5 mg PO Q6H PRN #12 tab 01/21/19 Rx losartan 25 mg PO QAM #30 tab 01/21/19 Rx nystatin 1 applic EXT BID #15 g 01/21/19 Rx pantoprazole 40 mg PO BID #60 tab 01/21/19 Rx tramadol 50 mg PO Q4H PRN #12 tab 01/21/19 Rx Patient History Medical History Vitamin D deficiency (Acute) Thyroid disorder (Acute) Spinal stenosis (Acute) Restless legs syndrome (Acute) Diverticulosis (Acute) Disc degeneration, lumbar (Acute) Diabetic retinopathy (Acute) Diabetic peripheral neuropathy (Acute) Depression (Acute) Carotid artery stenosis (Acute) Anxiety (Acute) Ischemic cardiomyopathy EF WNL 11/2017 Full dentures (Acute) HTN (hypertension) (Acute) Abscess in epidural space of lumbar spine CHF (congestive heart failure) [employer] 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 Admitted [facility] 10/18/11 for onset of incapacitating cervical myelopathy. Spinal tap showed [employer] Lyme disease, MRI showed severe spinal cord compression at C3-4 with myelomalacia and intramedullary mass. Pt had c-spine surgery, subsequent prolonged hospital admission, complicated post-op course. Chronic kidney disease, stage III (moderate) Chronic sinusitis Dysphagia History of non-ST elevation myocardial infarction (NSTEMI) ICD (implantable cardioverter-defibrillator) in place Sudden cardiac Post-op 2011 [facility]. Now has ICD. Surgical History History of esophagogastroduodenoscopy (EGD) History of colonoscopy History of cardiac cath 2011 AT [facility] - UNSURE IF HE HAS STENTS. History of tracheostomy Hx of transurethral resection of prostate History of cataract extraction with lens replacement Hx of tonsillectomy (Acute) H/O cervical spine surgery (Acute) ACDI C3-4, C7 corpectomy, removal of C7 intramedullary mass. History of lumbar spinal fusion (Acute) S/P triple vessel bypass (Acute) [facility] 2002 History of incision and drainage Lumbar spine on 08/11; complicated by difficult intubation with only #6.5 ETT able to be placed and patient kept intubated post op History of lumbar surgery 09/10/18 Glidescope 3 okay visualization but difficulty passing ETT, unable to pass 8.0, able to pass 7.0 with some difficulty Family History Mother , age 68 of COPD and respiratory issues COPD (chronic obstructive pulmonary disease) Father , in his 40s of an [place] Myocardial infarction Other Diabetes Hypertension No pertinent family history Social History Preferred Language: Georgian Communication Ability: confused Visual Impairment: No Limitations Hearing Ability: Normal Brine Well Operator Required: No Beliefs That Will Affect Care: None marital status: Current Living Situation: Long-Term Current Living Situation Comment: lives at [facility] 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al status: retired and disabled 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: 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 GENERAL - 68-year-old male appearing his stated age who is in no acute distress. Somnolent. SKIN - Large, 3.0 x 3.0 cm pressure ulcer (grade uncertain) to the LEFT heel. No surrounding erythema or purulent drainage appreciated. HEAD - NC/AT. EYES - PERRL with EOMI bilaterally. Sclera anicteric. EARS - No deformities of external structures noted on gross examination bilaterally. NOSE - Midline and without cyanosis. MOUTH/OROPHARYNX - Without perioral cyanosis. Buccal mucosa pink and dry. NECK - Neck with FROM. Supple to palpation. No nuchal rigidity. LUNGS - Chest wall symmetric without accessory muscle use, intercostals retractions, or central cyanosis. Normal vesicular breath sounds CTA B/L. No wheezes, rales, or rhonchi appreciated. CARDIAC - RRR with S1/S2. No murmur, rubs, or gallops appreciated. ABDOMEN - Abdominal contour obese without pulsations or visible masses. BS normoactive all four quadrants. No tenderness, palpable masses, hepatosplenomegaly, or ascites noted. EXTREMITIES - No clubbing or peripheral cyanosis. Edematous throughout all extremities. +2/5 radial pulses palpated throughout. +3/5 strength noted in UE/LE bilaterally. NEUROLOGIC - Cranial nerves II through XII grossly intact. No focal neurological deficits. PSYCH - A&O to location and time alone. Pleasantly confused. Results & Data Vital Signs (Past 12 Hours) Vital Signs Temp Pulse Resp BP BP Pulse Ox 01/31/19 04:40 36.6 C 22 89/46 L 96 01/31/19 04:26 74 21 96/56 L 98 01/31/19 04:00 74 20 106/58 L 100 01/31/19 03:50 74 21 100 01/31/19 03:45 73 21 83/52 L 100 01/31/19 03:40 73 20 100 01/31/19 03:30 71 19 90/50 L 100 01/31/19 03:27 74 22 88/51 L 100 01/31/19 03:20 74 20 100 01/31/19 03:15 73 20 86/51 L 99 01/31/19 03:10 73 22 100 01/31/19 03:05 75 21 85/52 L 100 01/31/19 03:00 37.4 C 75 20 85/50 L 100 01/31/19 02:57 75 23 85/46 L 99 01/31/19 02:55 74 23 89/46 L 100 01/31/19 02:44 76 25 H 83/39 L 100 01/31/19 02:30 77 24 99 01/31/19 02:00 81 28 H 106/58 L 99 01/31/19 01:30 85 25 H 111/62 99 01/31/19 01:01 85 25 H 100 01/31/19 01:00 84 29 H 108/56 L 100 01/31/19 00:30 83 27 H 99 01/31/19 00:24 98 01/31/19 00:17 39.2 C H 85 21 108/59 L 98 01/31/19 00:14 91 H 25 H 100 01/31/19 00:12 86 13 108/59 L 100 PG Care Time/CCT Total # of Minutes Spent Total Time Spent with Patient: Total time spent is greater than 50% in coordination of care (as documented) at patient's floor/unit and/or counseling patient: Critical Care Time: Yes Total Critical Care Time: 35 (1) Unstageable pressure ulcer of heel Laterality: left Qualified Code(s): L89.620 - Pressure ulcer of left heel, unstageable (2) Anemia Anemia type: unspecified type Qualified Code(s): D64.9 - Anemia, unspecified
[2019-01-31] MEDS: FAMOTIDINE 20 MG in SYRINGE 3 ML IV SCH ×2 (06:27→19:01)
--- NOTE | 2019-01-31 07:44 | XRay Report ---
XR chest 1V portable CLINICAL HISTORY: Fever. Sepsis. COMPARISON STUDY: Chest radiograph January 14, 2019. FINDINGS: Note is made of a left subclavian pacer/AICD, median sternotomy wires, mediastinal surgical clips and spinal hardware. There is no pneumothorax. There is pulmonary vascular congestion with pos sible mild pulmonary edema. IMPRESSION: 1. Pulmonary vascular congestion with possible mild pulmonary edema. 2. Suspected small bilateral pleural fusions. Electronically signed by: Chito Durand M.D. 01/31/2019 7:43 AM
--- NOTE | 2019-01-31 07:47 | XRay Report ---
XR foot LT min 3V routine CLINICAL HISTORY: Wound. Evaluate for osteomyelitis of the left calcaneus. COMPARISON: None FINDINGS: No acute fracture is noted. Extensive vascular calcification is noted. Tarsometatarsal tc nts are intact. Soft tissue swelling overlying the posterior aspect of the calcaneus is noted with mcclellan spected wound. There is subtle lucency within the posterior calcaneus. IMPRESSION: Soft tissue swelling and suspected wound overlying the posterior aspect of the calcaneus. Subtle calcaneal lucency equivocal for osteomyelitis. Electronically signed by: Chito Durand M.D. 01/31/2019 7:46 AM
--- NOTE | 2019-01-31 07:47 | Emergency Department Note ---
Entered by Alex Gallegos acting as a scribe for History of Present Illness General Chief complaint: Illness Stated complaint: ILL/FEVER Time Seen by Provider: 01/31/19 00:13 Source: EMS Limitations: other (dementia) History of Present Illness The patient is a 68 y/o male who presents to the ED w/ CC of a worsening fever beginning several days ago. The patient presents from [facility] by EMS. EMS states the patient's fever has gradually worsened and was in the 103s degree F today. They report he was given Tylenol and had a cold bath and compresses around 1930 this evening. EMS notes his fever lowered to 101.3 degrees F. They state he has no current complaints, and he has mild hallucinations because of his history of dementia. EMS reports his 12-lead was normal other than a RBBB. They note his PEG tube was recently removed, and he recently tested positive for C-Diff. EMS states [facility] is having trouble getting him to drink fluids. The patient reports he does not have abdominal pain and he does not know where he is. The patient is not currently having diarrhea. The patient is a DNR. HPI limited secondary to his dementia. Home Medications Home Medications Medication Instructions Recorded Confirmed Type acetaminophen [Tylenol] 650 mg PO Q8 PRN 12/01/18 01/14/19 History aspirin [Aspir-81] 81 mg PO DAILY 12/01/18 01/14/19 History cholecalciferol (vitamin D3) 2,000 unit PO DAILY 12/01/18 01/14/19 History [Vitamin D3] clopidogrel [Plavix] 75 mg PO DAILY 12/01/18 01/14/19 History divalproex 250 mg PO Q12 12/01/18 01/14/19 History finasteride 5 mg PO DAILY 12/01/18 01/14/19 History insulin lispro [Humalog U-100 1 sliding scale dose SUBCUT 12/01/18 01/14/19 History Insulin] USEASDIRECTD metoprolol succinate [Toprol XL] 50 mg PO DAILY 12/01/18 01/14/19 History atorvastatin 40 mg PO QAM #1 tab 12/16/18 01/14/19 Rx gabapentin 100 mg PO BID #2 cap 12/16/18 01/14/19 Rx lidocaine 2 patch TRANSDERMAL DIRECTED 01/14/19 01/14/19 History tamsulosin [Flomax] 0.4 mg PO HS 01/14/19 01/14/19 History cephalexin 500 mg PO BID #14 cap 01/21/19 Rx ferrous sulfate 325 mg PO BIDM #60 tab 01/21/19 Rx furosemide 20 mg PO QAM #30 tab 01/21/19 Rx lorazepam 0.5 mg PO Q6H PRN #12 tab 01/21/19 Rx losartan 25 mg PO QAM #30 tab 01/21/19 Rx nystatin 1 applic EXT BID #15 g 01/21/19 Rx pantoprazole 40 mg PO BID #60 tab 01/21/19 Rx tramadol 50 mg PO Q4H PRN #12 tab 01/21/19 Rx Allergies Allergy/AdvReac Type Severity Reaction Status Date / Time No Known Drug Allergies Allergy Unknown Unverified 01/14/19 05:45 Past Med/Surg History Medical History Vitamin D deficiency (Acute) Thyroid disorder (Acute) Spinal stenosis (Acute) Restless legs syndrome (Acute) Diverticulosis (Acute) Disc degeneration, lumbar (Acute) Diabetic retinopathy (Acute) Diabetic peripheral neuropathy (Acute) Depression (Acute) Carotid artery stenosis (Acute) Anxiety (Acute) Ischemic cardiomyopathy EF WNL 11/2017 Full dentures (Acute) HTN (hypertension) (Acute) Abscess in epidural space of lumbar spine CHF (congestive heart failure) [employer] 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 Admitted [facility] 10/18/11 for onset of incapacitating cervical myelopathy. Spinal tap showed [employer] Lyme disease, MRI showed severe spinal cord compression at C3-4 with myelomalacia and intramedullary mass. Pt had c-spine surgery, subsequent prolonged hospital admission, complicated post-op course. Chronic kidney disease, stage III (moderate) Chronic sinusitis Dysphagia History of non-ST elevation myocardial infarction (NSTEMI) ICD (implantable cardioverter-defibrillator) in place Sudden cardiac Post-op 2011 [facility]. Now has ICD. Surgical History History of esophagogastroduodenoscopy (EGD) History of colonoscopy History of cardiac cath 2011 AT [facility] - UNSURE IF HE HAS STENTS. History of tracheostomy Hx of transurethral resection of prostate History of cataract extraction with lens replacement Hx of tonsillectomy (Acute) H/O cervical spine surgery (Acute) ACDI C3-4, C7 corpectomy, removal of C7 intramedullary mass. History of lumbar spinal fusion (Acute) S/P triple vessel bypass (Acute) [facility] [place] History of incision and drainage Lumbar spine on 08/11; complicated by difficult intubation with only #6.5 ETT able to be placed and patient kept intubated post op History of lumbar surgery 09/10/18 Glidescope 3 okay visualization but difficulty passing ETT, unable to pass 8.0, able to pass 7.0 with some difficulty Family History Mother , age 68 of COPD and respiratory issues COPD (chronic obstructive pulmonary disease) Father , in his 40s of an CA Myocardial infarction Other Diabetes Hypertension No pertinent family history Social History Preferred Language: Frisian Communication Ability: confused Visual Impairment: No Limitations Hearing Ability: Normal Lead Quality Technician Required: No Beliefs That Will Affect Care: None marital status: Current Living Situation: Correction Current Living Situation Comment: lives at [facility] 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al status: retired and disabled 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: 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 [employer] Feels Safe at Home: Yes Smoking Status: Never smoker Tobacco Type: smokeless tobacco ; Second Hand Exposure: No ; Hx Alcohol Use: No Hx Substance Use: No Review of Systems Unobtainable due to cognitive status (dementia) Physical Exam Vital Signs Vital Signs - 24 hr 01/31/19 00:12 01/31/19 00:14 01/31/19 00:17 Temperature 39.2 C H Temperature Source Rectal Sepsis Recent Fever Within 48 Hours Yes Sepsis Action Taken by Nursing Physician Notified Pulse Rate 86 91 H 85 Pulse Rate from SpO2 Sensor 86 88 Respiratory Rate 13 25 H 21 Respiratory Depth Normal Blood Pressure 108/59 L 108/59 L Blood Pressure Mean 75 75 Pulse Oximetry 100 100 98 Oxygen Delivery Method Nasal Cannula Oxygen Flow Rate 3 01/31/19 00:24 01/31/19 00:30 01/31/19 01:00 Temperature Temperature Source Sepsis Recent Fever Within 48 Hours Sepsis Action Taken by Nursing Pulse Rate 83 84 Pulse Rate from SpO2 Sensor 84 84 Respiratory Rate 27 H 29 H Respiratory Depth Blood Pressure 108/56 L Blood Pressure Mean 73 Pulse Oximetry 98 99 100 Oxygen Delivery Method Nasal Cannula Oxygen Flow Rate 01/31/19 01:01 01/31/19 01:28 01/31/19 01:30 Temperature Temperature Source Sepsis Recent Fever Within 48 Hours Sepsis Action Taken by Nursing Pulse Rate 85 85 Pulse Rate from SpO2 Sensor 85 85 Respiratory Rate 25 H 25 H Respiratory Depth Blood Pressure 111/62 Blood Pressure Mean 78 Pulse Oximetry 100 99 Oxygen Delivery Method Room Air Room Air Oxygen Flow Rate 01/31/19 02:00 01/31/19 02:30 01/31/19 02:44 Temperature Temperature Source Sepsis Recent Fever Within 48 Hours Sepsis Action Taken by Nursing Pulse Rate 81 77 76 Pulse Rate from SpO2 Sensor 81 77 76 Respiratory Rate 28 H 24 25 H Respiratory Depth Blood Pressure 106/58 L 83/39 L Blood Pressure Mean 74 53 Pulse Oximetry 99 99 100 Oxygen Delivery Method Oxygen Flow Rate 01/31/19 02:55 01/31/19 02:57 01/31/19 03:00 Temperature 37.4 C Temperature Source Oral Sepsis Recent Fever Within 48 Hours Sepsis Action Taken by Nursing Pulse Rate 74 75 75 Pulse Rate from SpO2 Sensor 74 75 75 Respiratory Rate 23 23 20 Respiratory Depth Blood Pressure 89/46 L 85/46 L 85/50 L Blood Pressure Mean 60 59 61 Pulse Oximetry 100 99 100 Oxygen Delivery Method Oxygen Flow Rate 01/31/19 03:05 01/31/19 03:10 01/31/19 03:15 Temperature Temperature Source Sepsis Recent Fever Within 48 Hours Sepsis Action Taken by Nursing Pulse Rate 75 73 73 Pulse Rate from SpO2 Sensor 75 73 73 Respiratory Rate 21 22 20 Respiratory Depth Blood Pressure 85/52 L 86/51 L Blood Pressure Mean 63 62 Pulse Oximetry 100 100 99 Oxygen Delivery Method Oxygen Flow Rate 01/31/19 03:20 01/31/19 03:27 01/31/19 03:30 Temperature Temperature Source Sepsis Recent Fever Within 48 Hours Sepsis Action Taken by Nursing Pulse Rate 74 74 71 Pulse Rate from SpO2 Sensor 74 74 73 Respiratory Rate 20 22 19 Respiratory Depth Blood Pressure 88/51 L 90/50 L Blood Pressure Mean 63 63 Pulse Oximetry 100 100 100 Oxygen Delivery Method Oxygen Flow Rate 01/31/19 03:40 01/31/19 03:45 01/31/19 03:50 Temperature Temperature Source Sepsis Recent Fever Within 48 Hours Sepsis Action Taken by Nursing Pulse Rate 73 73 74 Pulse Rate from SpO2 Sensor 73 73 74 Respiratory Rate 20 21 21 Respiratory Depth Blood Pressure 83/52 L Blood Pressure Mean 62 Pulse Oximetry 100 100 100 Oxygen Delivery Method Oxygen Flow Rate 01/31/19 04:00 Temperature Temperature Source Sepsis Recent Fever Within 48 Hours Sepsis Action Taken by Nursing Pulse Rate 74 Pulse Rate from SpO2 Sensor 73 Respiratory Rate 20 Respiratory Depth Blood Pressure 106/58 L Blood Pressure Mean 74 Pulse Oximetry 100 Oxygen Delivery Method Room Air Oxygen Flow Rate General: Confused. HEENT: Head - normocephalic and atraumatic Pupils are 1mm, equal, round, and reactive to light. Extraocular eye muscles are intact, and sclera are anicteric. Nose - moist nasal mucosa without discharge. Mouth - exteremely dry buccal mucosa. Oropharynx is nonerythematous and there is no tonsillar exudate or edema noted. Neck: Supple; no JVD, nuchal rigidity, cervical lymphadenopathy, or auscultated bruits. Heart: Regular rate and rhythm. There is a normal S1 and S2 with no murmurs, clicks, or gallops appreciated. Lungs: Clear to auscultation bilaterally with no wheezes, rales, or rhonchi. Abdomen: Soft, completely nontender, distended, with good bowel sounds. There a re no palpable pulsatile masses or hepatosplenomegaly. There is no guarding, rigidity, or rebound noted. Extremities: No evidence of cyanosis or clubbing. 3+ edema in his bilateral lower extremities. There are easily palpable peripheral pulses. Deep ulcer to the left heel with surrounding erythema. Skin: warm and extremely dry with poor turgor and no rashes. Course 0006: The patient was evaluated in room B08. A complete history and physical examination were performed. Nursing notes and previous electronic medical records were reviewed. IV lock was established and labs were drawn as above. A septic protocol was performed. The patient had a twelve-lead EKG and a chest x- ray. 0039: Ordered Sodium Chloride 500 ml @ 999 mls/hr IV, Tylenol 650mg IN 0045: Ordered Sodium Chloride 500 ml @ 125 mls/hr IV. 0106: The patient's is at the bedside. I discussed the patient's current results with her. 0123: Ordered Imipenem/Cilastatin Sodium 500 mg in dextrose 110 mls @ 100 mls/hr IV 0125: I reviewed the patient's previous urine cultures in the EMR. His urine frequently has Klebsiella that is susceptible to Imipenem. 0153: Ordered Daptomycin 500 mg in syringe 10 mls @ 5 mls/min IV 0220: Upon reevaluation, I discussed findings and results with the patient and his . They verbalized agreement of the treatment plan. The patient will be evaluated for further management and care. 0257: The nurse informed me the patient's blood pressure was dropping to the 80s. He will receive more IV fluids. Upon evaluation he is hypotensive with a rate of 85. He is receiving another bolus of fluid. 0343: Discussed the patient's case with Dr. Kenny, [facility] Hospitalist. The patient will be evaluated for further management. He discussed the patient's CODE STATUS with the . She was agreeable for the patient to receive pre ssors. These will be ordered and the patient will be admitted to the ICU. Administered Medications Sodium Chloride (Nss) 500 mls @ 125 mls/hr IV .Q4H KAYLYNN Stop: 03/02/19 00:44 Last Admin: 01/31/19 06:27 Dose: 125 mls/hr Documented by: [id number] Infusion: 01/31/19 05:45 Dose: 125 mls/hr Documented by: [id number] Admin: 01/31/19 01:45 Dose: 125 mls/hr Documented by: [id number] Famotidine 20 mg/ Syringe 5 mls @ 2.5 mls/min IV Q12H KAYLYNN Stop: 03/02/19 05:59 Last Admin: 01/31/19 06:27 Dose: 2.5 mls/min Documented by: [id number] Discontinued Medications Acetaminophen (Tylenol) 650 mg IN NOW STA Stop: 01/31/19 00:40 Last Admin: 01/31/19 01:09 Dose: 650 mg Documented by: [id number] Albumin Human (Albumin 25%) Confirm Administered Dose 25 gm IV .STK-MED ONE Stop: 01/31/19 03:09 Last Admin: 01/31/19 03:16 Dose: 25 gm Documented by: [id number] Sodium Chloride (Nss 1000ml) 500 mls @ 999 mls/hr IV .Q31M ONE Stop: 01/31/19 01:09 Last Infusion: 01/31/19 01:41 Dose: 0 mls/hr Documented by: [id number] Admin: 01/31/19 01:09 Dose: 999 mls/hr Documented by: [id number] Imipenem/Cilastatin Sodium 500 (mg/ Dextrose) 110 mls @ 100 mls/hr IV NOW STA; Protocol Stop: 01/31/19 02:28 Last Infusion: 01/31/19 02:55 Dose: 0 mls/hr Documented by: [id number] Admin: 01/31/19 01:44 Dose: 100 mls/hr Documented by: [id number] Daptomycin 500 mg/ Syringe 10 mls @ 5 mls/min IV NOW STA; Protocol Stop: 01/31/19 01:54 Last Admin: 01/31/19 02:55 Dose: 5 mls/min Documented by: [id number] Albumin Human (Albumin 25%) 50 mls @ 50 mls/hr IV Q1H KAYLYNN Stop: 01/31/19 05:29 Last Admin: 01/31/19 05:14 Dose: 50 mls/hr Documented by: [id number] Admin: 01/31/19 03:30 Dose: Not Given Documented by: [id number] Medical Decision Making Differential Diagnosis Differential diagnosis includes: sepsis, osteomyelitis, infected ulcer of the foot, UTI, pneumonia. Medical Records Attestation: I reviewed the patient's medical records. Home Medications Current Medication List: was personally reviewed by me Laboratory Data Attestation: I reviewed the patient's lab results. Result diagrams: 01/31/19 01:08 01/31/19 01:08 Lab Results 01/31/19 01/31/19 01/31/19 Range/Units 00:42 01:08 01:08 WBC 9.38 (4.8-10.8) K/uL RBC 2.94 L (4.7-6.1) M/uL Hgb 9.0 L (14.0-18.0) g/dL Hct 26.6 L (42-52) % MCV 90.5 (80-100) fL MCH 30.6 (25-34) pg MCHC 33.8 (32-36) g/dL RDW Std Deviation 51.2 H (36.4-46.3) fL RDW Coeff of Norbert 15.4 H (11.5-14.5) % Plt Count 147 (130-400) K/uL MPV 9.1 (7.4-10.4) fL Immature Gran % (Auto) 0.4 % Neut % (Auto) 78.3 % Lymph % (Auto) 9.5 % [place] % (Auto) 11.4 % Eos % (Auto) 0.1 % Baso % (Auto) 0.3 % Immature Gran # (Auto) 0.04 H (0.00-0.02) K/uL Neut # (Auto) 7.34 H (1.4-6.5) K/uL Lymph # (Auto) 0.89 L (1.2-3.4) K/uL [place] # (Auto) 1.07 H (0.11-0.59) K/uL Eos # (Auto) 0.01 (0-0.5) K/uL Baso # (Auto) 0.03 (0-0.2) K/uL Platelet Estimate Normal (Normal) Sodium 132 L (136-145) mmol/L Potassium 5.3 H (3.5-5.1) mmol/L Chloride 98 (98-107) mmol/L Carbon Dioxide 27 (21-32) mmol/L Anion Gap 7.0 (3-11) BUN 18 (7-18) mg/dl Creatinine 1.05 (0.6-1.4) mg/dl Est Cr Clr Drug Dosing Not Reportable Est GFR ( Amer) 85.3 Est GFR (Non-Af Amer) 73.6 BUN/Creatinine Ratio 17.6 (10-20) Glucose 141 H (70-99) mg/dl Lactate Calcium 8.3 L (8.5-10.1) mg/dl Total Bilirubin 0.5 (0.2-1) mg/dl AST 23 (15-37) U/L ALT 14 (12-78) U/L Alkaline Phosphatase 71 (45-117) U/L Total Protein 6.1 L (6.4-8.2) gm/dl Albumin 2.4 L (3.4-5.0) gm/dl Globulin 3.7 (2.5-4.0) gm/dl Albumin/Globulin Ratio 0.6 L (0.9-2) Urine Color Yellow Urine Appearance Turbid A (Clear) Urine pH 5.5 (4.5-7.5) Ur Specific [place] 1.016 (1.000-1.030) Urine Protein Trace H (Negative) Urine Glucose (UA) Negative (Negative) Urine Ketones Negative (Negative) Urine Blood 2+ H (Negative) Urine Nitrite Negative (Negative) Urine Bilirubin Negative (Negative) Urine Urobilinogen Negative (Negative) Ur Leukocyte Esterase 3+ H (Negative) Urine WBC (Auto) >30 H (0-5) /hpf Urine RBC (Auto) 5-10 H (0-4) /hpf U Hyaline Cast (Auto) 1-5 (0-5) /lpf U Epithel Cells (Auto) 5-10 H (0-5) /lpf Urine Bacteria (Auto) 4+ H (Negative) 01/31/19 Range/Units 01:08 WBC (4.8-10.8) K/uL RBC (4.7-6.1) M/uL Hgb (14.0-18.0) g/dL Hct (42-52) % MCV (80-100) fL MCH (25-34) pg MCHC (32-36) g/dL RDW Std Deviation (36.4-46.3) fL RDW Coeff of Norbert (11.5-14.5) % Plt Count (130-400) K/uL MPV (7.4-10.4) fL Immature Gran % (Auto) % Neut % (Auto) % Lymph % (Auto) % [place] % (Auto) % Eos % (Auto) % Baso % (Auto) % Immature Gran # (Auto) (0.00-0.02) K/uL Neut # (Auto) (1.4-6.5) K/uL Lymph # (Auto) (1.2-3.4) K/uL [place] # (Auto) (0.11-0.59) K/uL Eos # (Auto) (0-0.5) K/uL Baso # (Auto) (0-0.2) K/uL Platelet Estimate (Normal) Sodium (136-145) mmol/L Potassium (3.5-5.1) mmol/L Chloride (98-107) mmol/L Carbon Dioxide (21-32) mmol/L Anion Gap (3-11) BUN (7-18) mg/dl Creatinine (0.6-1.4) mg/dl Est Cr Clr Drug Dosing Est GFR ( Amer) Est GFR (Non-Af Amer) BUN/Creatinine Ratio (10-20) Glucose (70-99) mg/dl Lactate Cancelled Calcium (8.5-10.1) mg/dl Total Bilirubin (0.2-1) mg/dl AST (15-37) U/L ALT (12-78) U/L Alkaline Phosphatase (45-117) U/L Total Protein (6.4-8.2) gm/dl Albumin (3.4-5.0) gm/dl Globulin (2.5-4.0) gm/dl Albumin/Globulin Ratio (0.9-2) Urine Color Urine Appearance (Clear) Urine pH (4.5-7.5) Ur Specific [place] (1.000-1.030) Urine Protein (Negative) Urine Glucose (UA) (Negative) Urine Ketones (Negative) Urine Blood (Negative) Urine Nitrite (Negative) Urine Bilirubin (Negative) Urine Urobilinogen (Negative) Ur Leukocyte Esterase (Negative) Urine WBC (Auto) (0-5) /hpf Urine RBC (Auto) (0-4) /hpf U Hyaline Cast (Auto) (0-5) /lpf U Epithel Cells (Auto) (0-5) /lpf Urine Bacteria (Auto) (Negative) Imaging Data Attestation: I personally reviewed and interpreted this imaging study as follows: My Impression: XR chest 1V Portable: Cardiomegaly with pace maker in place. No obvious pulmonary consolidation. XR foot LT min 3 V routine: Concern for osteomyelitis of the calcaneus. Blood Pressure Blood Pressure Findings: Low blood pressure Blood Pressure Disposition: further management by hospitalist NATALIA Narrative The patient is a 68 y/o male who presents to the ED w/ CC of a worsening fever beginning several days ago. Patient presents to the emergency department with a fever. Patient was recently discharged from the hospital on January 21 after a bout of metabolic encephalopathy and C. difficile colitis. The patient was at [facility] and developed a fever over the past couple of days. A septic protocol was performed. Urinalysis appeared infected. Patient also had a deep ulcer on the left foot. X-ray was concerning for osteomyelitis. The patient was started on IV antibiotics. The patient currently has no diarrhea to suggest persistent C. difficile. The patient became hypotensive despite receiving IV crystalloid therapy. Pressors were started and the patient was admitted to the ICU. The case was discussed with Dr. Wei and he will evaluate for further care. Impression & Plan Septic shock, Acute UTI, Osteomyelitis of foot Critical Care Time Critical Care Time: Yes Total Critical Care Time: 80 I have personally spent 80 minutes of critical care time in the direct management of this patient. This includes bedside care, interpretation of diagnostic studies, and testing, discussion with consultants, patient, and family members, and other required patient management activities. This 80 minutes is in excess of all separately billable procedures. Discharge Plan Visit Data *Final* Discharge Date/Time: 01/31/19 04:26 Chief Complaint: Illness Stated Complaint: ILL/FEVER Other Complaint: Fever ED Provider: America Flynn Discharge Problem: Septic shock, Acute UTI, Osteomyelitis of foot Patient Disposition: Admitted As Inpatient Discharge Instructions Interventions: ED Discharge Assessment Last Done: 01/31/19 04:26 Sepsis Evaluation Sepsis screening result: Possible Sepsis Risk Current stage of sepsis: septic shock Focused Exam Date exam was performed: 01/31/19 Time exam was performed: 00:06 Vital Signs Temp Pulse Resp BP Pulse Ox 01/31/19 04:00 74 20 106/58 L 100 01/31/19 03:50 74 21 100 01/31/19 03:45 73 21 83/52 L 100 01/31/19 03:40 73 20 100 01/31/19 03:30 71 19 90/50 L 100 01/31/19 03:27 74 22 88/51 L 100 01/31/19 03:20 74 20 100 01/31/19 03:15 73 20 86/51 L 99 01/31/19 03:10 73 22 100 01/31/19 03:05 75 21 85/52 L 100 01/31/19 03:00 37.4 C 75 20 85/50 L 100 01/31/19 02:57 75 23 85/46 L 99 01/31/19 02:55 74 23 89/46 L 100 01/31/19 02:44 76 25 H 83/39 L 100 01/31/19 02:30 77 24 99 01/31/19 02:00 81 28 H 106/58 L 99 01/31/19 01:30 85 25 H 111/62 99 01/31/19 01:01 85 25 H 100 01/31/19 01:00 84 29 H 108/56 L 100 01/31/19 00:30 83 27 H 99 01/31/19 00:24 98 01/31/19 00:17 39.2 C H 85 21 108/59 L 98 01/31/19 00:14 91 H 25 H 100 01/31/19 00:12 86 13 108/59 L 100 Reviewed by me. Respiratory exam: Present CTA bilaterally; Absent rales, rhonchi and wheezes Cardiovascular exam: Present RRR; Absent murmur, gallop and click Capillary refill: 2-3 Seconds (Immediate) Peripheral pulse strength: Normal Skin exam: pale (warm and extremely dry with poor turgor and no rashes) Discharge Problem: Osteomyelitis of foot Qualifiers: Osteomyelitis type: unspecified type Laterality: left Qualified Code(s): M86.9 - Osteomyelitis, unspecified The scribe's documentation has been prepared under my direction and personally reviewed by me in its entirety. I confirm that the note above accurately reflects all work, treatment, procedures, and medical decision making performed by me.
[2019-01-31 09:26] LABS: BUN Creatinine Ratio 17.9 (10-20); Calcium 8.2 mg/dl (8.5-10.1); Creatinine Clr Calc Pharmacy 86.5 ml/min; Est GFR (African American) 98.8; Est GFR (Non-African American) 85.2; Potassium 4.2 mmol/L (3.5-5.1)
[2019-01-31] MEDS ORDERED: LACTATED RINGER'S 500 ML IV ONE (09:46)
[2019-01-31] MEDS: HEPARIN SOD 5,000 UNIT/0.5 ML VIAL SQ SCH ×2 (10:03→20:56)
--- NOTE | 2019-01-31 10:13 | Pharmacy Report ---
Pharmacy Abx Initial Consult - Date of Service January 31, 2019 - Pharmacy Dosing Scope Date of Consult: 01/31/19 Consultation requested by: Dr. Mejias Pharmacy is consulted to initiate Vancomycin and zosyn IV/PO dosing therapy, order appropriate labs and adjust drug dose/frequency. - Subjective The patient is a 68 year old M admitted on 01/31/19 04:12. - Objective Height: 5 ft 8 in Weight: 93 kg Vital Signs (Past 12hrs): Vital Signs Temp Pulse Resp BP BP Pulse Ox 01/31/19 06:30 76 16 99/56 L 97 01/31/19 06:15 77 12 94/55 L 88 L 01/31/19 06:03 80 18 88/53 L 100 01/31/19 06:00 79 19 99 01/31/19 05:45 79 25 H 89/49 L 01/31/19 05:31 78 20 99/56 L 96 01/31/19 05:15 78 26 H 110/58 L 95 01/31/19 05:00 78 22 108/58 L 95 01/31/19 04:45 78 9 L 110/54 L 94 01/31/19 04:40 36.6 C 22 89/46 L 96 01/31/19 04:26 74 21 96/56 L 98 01/31/19 04:00 74 20 106/58 L 100 01/31/19 03:50 74 21 100 01/31/19 03:45 73 21 83/52 L 100 01/31/19 03:40 73 20 100 01/31/19 03:30 71 19 90/50 L 100 01/31/19 03:27 74 22 88/51 L 100 01/31/19 03:20 74 20 100 01/31/19 03:15 73 20 86/51 L 99 01/31/19 03:10 73 22 100 01/31/19 03:05 75 21 85/52 L 100 01/31/19 03:00 37.4 C 75 20 85/50 L 100 01/31/19 02:57 75 23 85/46 L 99 01/31/19 02:55 74 23 89/46 L 100 01/31/19 02:44 76 25 H 83/39 L 100 01/31/19 02:30 77 24 99 01/31/19 02:00 81 28 H 106/58 L 99 01/31/19 01:30 85 25 H 111/62 99 01/31/19 01:01 85 25 H 100 01/31/19 01:00 84 29 H 108/56 L 100 01/31/19 00:30 83 27 H 99 01/31/19 00:24 98 01/31/19 00:17 39.2 C H 85 21 108/59 L 98 01/31/19 00:14 91 H 25 H 100 01/31/19 00:12 86 13 108/59 L 100 Lab Results (24hrs): Laboratory Tests (24 Hours) 01/31/19 01/31/19 01/31/19 08:20 08:18 08:18 WBC Neut # (Auto) Creatinine 0.93 Est Cr Clr Drug Dosing 86.5 C-Reactive Protein 7.17 H Procalcitonin 0.39 01/31/19 01/31/19 01:08 01:08 WBC 9.38 Neut # (Auto) 7.34 H Creatinine 1.05 Est Cr Clr Drug Dosing Not Reportable C-Reactive Protein Procalcitonin Micro Results: 01/31/19 00:39 Aerobic Blood Culture - Pending Blood Anaerobic Blood Culture - Pending 01/31/19 01:08 Aerobic Blood Culture - Pending Blood Anaerobic Blood Culture - Pending 01/31/19 00:42 Urine Culture - Pending Urine,Indwelling Cath - Risk Factors for Resistance * Resident in a [facility] or extended-care facility * Hospitalization for 48 hours or more within the past 90 days * Antimicrobial use within the last 90 days - Assessment & Plan Assessment 68 year old M resident of [facility] with significant PMH of DM and CKD admitted to ICU. * History of C-diff * Blood cultures pending * Urine culture pending * MRSA nasal swab negative Plan Vancomycin and Zosyn for treatment of complicated UTI. Vancomycin IV * Estimated PK Parameters: Vd 0.7 L/kg, Dion 0.075 hr-1, t1/2 9 hr * Loading dose: 2250 mg (24 mg/kg) * Maintenance dose: 1500 mg IV (16 mg/kg) every 12 hours * Goal trough level : 15 to 20 mcg/mL * Trough level ordered for 02/01/19 @1530 Piperacillin/tazobactam * 4.5 g bolus administered over 30 minutes, then 4.5 g IV extended infusion every 8 hours for CrCl greater than 20 mL/min * Aggressive dosing selected due to critically ill status Pharmacy will continue to follow and will adjust dose/frequency as necessary. Thank you.
--- NOTE | 2019-01-31 13:41 | History & Physical Report ---
Date of Service January 31, 2019 Assessment & Plan (1) Severe sepsis: due to UTI continue Vancomcyin and Zosyn, follow up cultures UTI is due to chronic indwelling luna catheter BP was low but responded to aggressive fluids no need for pressors PICC line placed but able to be transferred out of ICU follow WBC and follow up on cultures (2) Acute UTI: see above continue abx and follow up cultures due to indwelling luna catheter (3) Osteomyelitis of foot: possible osteomyelitis abx will likely need MRI foot to get a better idea of scope of infection depending on results will involve ID and orthopedic surgery (4) C. difficile colitis: once he is safe to take PO, will place on Vancomycin PO to prevent repeat C diff colitis (5) Lumbar stenosis with neurogenic claudication: ongoing, s/p multiple surgeries and I/D for abscess will need ongoing PT (6) Coronary artery disease: no chest pain minimal elevated in troponin, likely demand ischemia in setting of severe sepsis (7) Ischemic cardiomyopathy: (8) Stage III chronic kidney disease: History of Present Illness Chief Complaint: I didn't feel well Primary Care Provider: [facility] 68 yo male well known to service, history of lumbar decompression complicated by repeated epidural abscesses after surgery. Taken for several I&D by Dr. Morales. Most recently he completed prolonged treatment with Daptomycin, Rocephin and Caspofungin. He was then admitted for C diff colitis and concurrent UTI. He was treated with Vancomycin PO and planned to complete 14 days after finishing treatment for UTI. He reported that his diarrhea had gone away completely. He was discharged on 01/21/19 to [place] for continued rehab and skilled care. He said he was doing well up until yesterday. He was eating. No chest pain, no dyspnea. He developed lethargy, fever, altered mental status and he was sent to the ED. In the ED he was found to be hypotensive but responded to fluid bolus. His UA was consistent with UTI but there were also concerns for heel ulcer and possible infection/cellulitis. He was admitted to the ICU for possible need for pressors. Allergies Allergy/AdvReac Type Severity Reaction Status Date / Time No Known Drug Allergies Allergy Unknown Unverified 01/14/19 05:45 Home Medications Home Medications Medication Instructions Recorded Confirmed Type acetaminophen [Tylenol] 650 mg PO Q8 PRN 12/01/18 01/14/19 History aspirin [Aspir-81] 81 mg PO DAILY 12/01/18 01/14/19 History cholecalciferol (vitamin D3) 2,000 unit PO DAILY 12/01/18 01/14/19 History [Vitamin D3] clopidogrel [Plavix] 75 mg PO DAILY 12/01/18 01/14/19 History divalproex 250 mg PO Q12 12/01/18 01/14/19 History finasteride 5 mg PO DAILY 12/01/18 01/14/19 History insulin lispro [Humalog U-100 1 sliding scale dose SUBCUT 12/01/18 01/14/19 History Insulin] USEASDIRECTD metoprolol succinate [Toprol XL] 50 mg PO DAILY 12/01/18 01/14/19 History atorvastatin 40 mg PO QAM #1 tab 12/16/18 01/14/19 Rx gabapentin 100 mg PO BID #2 cap 12/16/18 01/14/19 Rx lidocaine 2 patch TRANSDERMAL DIRECTED 01/14/19 01/14/19 History tamsulosin [Flomax] 0.4 mg PO HS 01/14/19 01/14/19 History cephalexin 500 mg PO BID #14 cap 01/21/19 Rx ferrous sulfate 325 mg PO BIDM #60 tab 01/21/19 Rx furosemide 20 mg PO QAM #30 tab 01/21/19 Rx lorazepam 0.5 mg PO Q6H PRN #12 tab 01/21/19 Rx losartan 25 mg PO QAM #30 tab 01/21/19 Rx nystatin 1 applic EXT BID #15 g 01/21/19 Rx pantoprazole 40 mg PO BID #60 tab 01/21/19 Rx tramadol 50 mg PO Q4H PRN #12 tab 01/21/19 Rx Past Med/Surg History Medical History Vitamin D deficiency (Acute) Thyroid disorder (Acute) Spinal stenosis (Acute) Restless legs syndrome (Acute) Diverticulosis (Acute) Disc degeneration, lumbar (Acute) Diabetic retinopathy (Acute) Diabetic peripheral neuropathy (Acute) Depression (Acute) Carotid artery stenosis (Acute) Anxiety (Acute) Ischemic cardiomyopathy EF WNL 11/2017 Full dentures (Acute) HTN (hypertension) (Acute) Abscess in epidural space of lumbar spine CHF (congestive heart failure) 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 Admitted [facility] 10/18/11 for onset of incapacitating cervical myelopathy. 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 Pt had c-spine surgery, subsequent prolonged hospital admission, complicated post-op course. Chronic kidney disease, stage III (moderate) Chronic sinusitis Dysphagia History of non-ST elevation myocardial infarction (NSTEMI) ICD (implantable cardioverter-defibrillator) in place Sudden cardiac Post-op 2011 [facility]. Now has ICD. Surgical History History of esophagogastroduodenoscopy (EGD) History of colonoscopy History of cardiac cath 2011 AT [facility] - UNSURE IF HE HAS STENTS. History of tracheostomy Hx of transurethral resection of prostate History of cataract extraction with lens replacement Hx of tonsillectomy (Acute) H/O cervical spine surgery (Acute) ACDI C3-4, C7 corpectomy, removal of C7 intramedullary mass. History of lumbar spinal fusion (Acute) S/P triple vessel bypass (Acute) [facility] [place] [id number] History of incision and drainage Lumbar spine on 08/11; complicated by difficult intubation with only #6.5 ETT able to be placed and patient kept intubated post op History of lumbar surgery 09/10/18 Glidescope 3 okay visualization but difficulty passing ETT, unable to pass 8.0, able to pass 7.0 with some difficulty Family History Mother , age 68 of COPD and respiratory issues COPD (chronic obstructive pulmonary disease) Father , in his 40s of an [place] Myocardial infarction Other Diabetes Hypertension No pertinent family history Social History Preferred Language: Maltese Communication Ability: Impaired Visual Impairment: No Limitations Hearing Ability: Normal Cosmetic Counselor Required: No Beliefs That Will Affect Care: None marital status: Current Living Situation: Snf Current Living Situation Comment: lives at [facility] 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al status: retired and disabled 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: 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 [employer] Feels Safe at Home: Yes Smoking Status: Never smoker Tobacco Type: smokeless tobacco ; Second Hand Exposure: No ; Hx Alcohol Use: No Hx Substance Use: No Review of Systems Review of Systems: Unobtainable due to cognitive status (lethargic) Physical Exam Constitutional: WD/WN, vitals as above Eyes: PERRL, conjunctivae normal, anicteric sclerae ENMT: external ear and nose normal, oropharynx normal Neck: trachea midline, no thyromegaly Respiratory: normal respiratory effort, lungs clear to auscultation Auscultation: + diminished lung sounds (bases) Cardiovascular: RRR, no murmur, no edema Gastrointestinal (Abdomen): normal bowel sounds, soft, nontender, no hepatosplenomegaly Musculoskeletal: Head/Neck/Chest: normocephalic and head atraumatic Spine: + limited thoraco-lumbar ROM (pain, weakness) Extremities: + abnormal strength (weakness in legs bilaterally, cannot transfer or ambulate) Skin: no rashes, warm and dry + wound (heel ulcer) Neurologic: patellar DTR's 2+ bilat, sensation intact and PERRL, EOMI, accommodation nl, no face palsy, no dysarthria Psychiatric: Orientation: oriented to person, oriented to place and cooperative; + not alert (lethargic) and + not oriented to time Lymphatic: no cervical or axillary lymphadenopathy Results & Data Vital Signs (Past 12 Hours) Vital Signs Temp Pulse Resp BP BP Pulse Ox 01/31/19 10:00 81 7 L 99/48 L 97 01/31/19 09:12 79 17 86/54 L 91 01/31/19 08:00 36.6 C 78 20 107/57 L 91 01/31/19 06:30 76 16 99/56 L 97 01/31/19 06:15 77 12 94/55 L 88 L 01/31/19 06:03 80 18 88/53 L 100 01/31/19 06:00 79 19 99 01/31/19 05:45 79 25 H 89/49 L 01/31/19 05:31 78 20 99/56 L 96 01/31/19 05:15 78 26 H 110/58 L 95 01/31/19 05:00 78 22 108/58 L 95 01/31/19 04:45 78 9 L 110/54 L 94 01/31/19 04:40 36.6 C 22 89/46 L 96 01/31/19 04:26 74 21 96/56 L 98 01/31/19 04:00 74 20 106/58 L 100 01/31/19 03:50 74 21 100 01/31/19 03:45 73 21 83/52 L 100 01/31/19 03:40 73 20 100 01/31/19 03:30 71 19 90/50 L 100 01/31/19 03:27 74 22 88/51 L 100 01/31/19 03:20 74 20 100 01/31/19 03:15 73 20 86/51 L 99 01/31/19 03:10 73 22 100 01/31/19 03:05 75 21 85/52 L 100 01/31/19 03:00 37.4 C 75 20 85/50 L 100 01/31/19 02:57 75 23 85/46 L 99 01/31/19 02:55 74 23 89/46 L 100 01/31/19 02:44 76 25 H 83/39 L 100 01/31/19 02:30 77 24 99 01/31/19 02:00 81 28 H 106/58 L 99 Laboratory Results Laboratory Results - last 24 hr 01/31/19 01/31/19 01/31/19 00:42 01:08 01:08 WBC 9.38 RBC 2.94 L Hgb 9.0 L Hct 26.6 L MCV 90.5 MCH 30.6 MCHC 33.8 RDW Std Deviation 51.2 H RDW Coeff of Norbert 15.4 H Plt Count 147 MPV 9.1 Immature Gran % (Auto) 0.4 Neut % (Auto) 78.3 Lymph % (Auto) 9.5 [place] % (Auto) 11.4 Eos % (Auto) 0.1 Baso % (Auto) 0.3 Immature Gran # (Auto) 0.04 H Neut # (Auto) 7.34 H Lymph # (Auto) 0.89 L [place] # (Auto) 1.07 H Eos # (Auto) 0.01 Baso # (Auto) 0.03 Platelet Estimate Normal ESR Sodium 132 L Potassium 5.3 H Chloride 98 Carbon Dioxide 27 Anion Gap 7.0 BUN 18 Creatinine 1.05 Est Cr Clr Drug Dosing Not Reportable Est GFR ( Amer) 85.3 Est GFR (Non-Af Amer) 73.6 BUN/Creatinine Ratio 17.6 Glucose 141 H POC Glucose Lactate Calcium 8.3 L Total Bilirubin 0.5 AST 23 ALT 14 Alkaline Phosphatase 71 Ammonia Troponin I C-Reactive Protein Total Protein 6.1 L Albumin 2.4 L Globulin 3.7 Albumin/Globulin Ratio 0.6 L Procalcitonin Random Cortisol Urine Color Yellow Urine Appearance Turbid A Urine pH 5.5 Ur Specific [place] 1.016 Urine Protein Trace H Urine Glucose (UA) Negative Urine Ketones Negative Urine Blood 2+ H Urine Nitrite Negative Urine Bilirubin Negative Urine Urobilinogen Negative Ur Leukocyte Esterase 3+ H Urine WBC (Auto) >30 H Urine RBC (Auto) 5-10 H U Hyaline Cast (Auto) 1-5 U Epithel Cells (Auto) 5-10 H Urine Bacteria (Auto) 4+ H Nasal Screen MRSA (PCR) 01/31/19 01/31/19 01/31/19 01:08 01:08 04:50 WBC RBC Hgb Hct MCV MCH MCHC RDW Std Deviation RDW Coeff of Norbert Plt Count MPV Immature Gran % (Auto) Neut % (Auto) Lymph % (Auto) [place] % (Auto) Eos % (Auto) Baso % (Auto) Immature Gran # (Auto) Neut # (Auto) Lymph # (Auto) [place] # (Auto) Eos # (Auto) Baso # (Auto) Platelet Estimate ESR Cancelled Sodium Potassium Chloride Carbon Dioxide Anion Gap BUN Creatinine Est Cr Clr Drug Dosing Est GFR ( Amer) Est GFR (Non-Af Amer) BUN/Creatinine Ratio Glucose POC Glucose Lactate Cancelled Calcium Total Bilirubin AST ALT Alkaline Phosphatase Ammonia Troponin I C-Reactive Protein Total Protein Albumin Globulin Albumin/Globulin Ratio Procalcitonin Random Cortisol Urine Color Urine Appearance Urine pH Ur Specific [place] Urine Protein Urine Glucose (UA) Urine Ketones Urine Blood Urine Nitrite Urine Bilirubin Urine Urobilinogen Ur Leukocyte Esterase Urine WBC (Auto) Urine RBC (Auto) U Hyaline Cast (Auto) U Epithel Cells (Auto) Urine Bacteria (Auto) Nasal Screen MRSA (PCR) Negative 01/31/19 01/31/19 01/31/19 06:30 08:18 08:18 WBC RBC Hgb Hct MCV MCH MCHC RDW Std Deviation RDW Coeff of Norbert Plt Count MPV Immature Gran % (Auto) Neut % (Auto) Lymph % (Auto) [place] % (Auto) Eos % (Auto) Baso % (Auto) Immature Gran # (Auto) Neut # (Auto) Lymph # (Auto) [place] # (Auto) Eos # (Auto) Baso # (Auto) Platelet Estimate ESR Sodium Potassium Chloride Carbon Dioxide Anion Gap BUN Creatinine Est Cr Clr Drug Dosing Est GFR ( Amer) Est GFR (Non-Af Amer) BUN/Creatinine Ratio Glucose POC Glucose 118 H Lactate 1.2 Calcium Total Bilirubin AST ALT Alkaline Phosphatase Ammonia Troponin I C-Reactive Protein 7.17 H Total Protein Albumin Globulin Albumin/Globulin Ratio Procalcitonin Random Cortisol Urine Color Urine Appearance Urine pH Ur Specific [place] Urine Protein Urine Glucose (UA) Urine Ketones Urine Blood Urine Nitrite Urine Bilirubin Urine Urobilinogen Ur Leukocyte Esterase Urine WBC (Auto) Urine RBC (Auto) U Hyaline Cast (Auto) U Epithel Cells (Auto) Urine Bacteria (Auto) Nasal Screen MRSA (PCR) 01/31/19 01/31/19 01/31/19 08:18 08:18 08:18 WBC RBC Hgb Hct MCV MCH MCHC RDW Std Deviation RDW Coeff of Norbert Plt Count MPV Immature Gran % (Auto) Neut % (Auto) Lymph % (Auto) [place] % (Auto) Eos % (Auto) Baso % (Auto) Immature Gran # (Auto) Neut # (Auto) Lymph # (Auto) [place] # (Auto) Eos # (Auto) Baso # (Auto) Platelet Estimate ESR Sodium 133 L Potassium 4.2 D Chloride 100 Carbon Dioxide 26 Anion Gap 7.0 BUN 17 Creatinine 0.93 Est Cr Clr Drug Dosing 86.5 Est GFR ( Amer) 98.8 Est GFR (Non-Af Amer) 85.2 BUN/Creatinine Ratio 17.9 Glucose 126 H POC Glucose Lactate Calcium 8.2 L Total Bilirubin AST ALT Alkaline Phosphatase Ammonia 16.5 Troponin I C-Reactive Protein Total Protein Albumin Globulin Albumin/Globulin Ratio Procalcitonin Random Cortisol 24.88 Urine Color Urine Appearance Urine pH Ur Specific [place] Urine Protein Urine Glucose (UA) Urine Ketones Urine Blood Urine Nitrite Urine Bilirubin Urine Urobilinogen Ur Leukocyte Esterase Urine WBC (Auto) Urine RBC (Auto) U Hyaline Cast (Auto) U Epithel Cells (Auto) Urine Bacteria (Auto) Nasal Screen MRSA (PCR) 01/31/19 01/31/19 01/31/19 08:18 08:18 08:20 WBC RBC Hgb Hct MCV MCH MCHC RDW Std Deviation RDW Coeff of Norbert Plt Count MPV Immature Gran % (Auto) Neut % (Auto) Lymph % (Auto) [place] % (Auto) Eos % (Auto) Baso % (Auto) Immature Gran # (Auto) Neut # (Auto) Lymph # (Auto) [place] # (Auto) Eos # (Auto) Baso # (Auto) Platelet Estimate ESR 17 H Sodium Potassium Chloride Carbon Dioxide Anion Gap BUN Creatinine Est Cr Clr Drug Dosing Est GFR ( Amer) Est GFR (Non-Af Amer) BUN/Creatinine Ratio Glucose POC Glucose Lactate Calcium Total Bilirubin AST ALT Alkaline Phosphatase Ammonia Troponin I 0.099 H* C-Reactive Protein Total Protein Albumin Globulin Albumin/Globulin Ratio Procalcitonin 0.39 Random Cortisol Urine Color Urine Appearance Urine pH Ur Specific [place] Urine Protein Urine Glucose (UA) Urine Ketones Urine Blood Urine Nitrite Urine Bilirubin Urine Urobilinogen Ur Leukocyte Esterase Urine WBC (Auto) Urine RBC (Auto) U Hyaline Cast (Auto) U Epithel Cells (Auto) Urine Bacteria (Auto) Nasal Screen MRSA (PCR) 01/31/19 01/31/19 01/31/19 15:12 16:05 20:34 WBC RBC Hgb Hct MCV MCH MCHC RDW Std Deviation RDW Coeff of Norbert Plt Count MPV Immature Gran % (Auto) Neut % (Auto) Lymph % (Auto) [place] % (Auto) Eos % (Auto) Baso % (Auto) Immature Gran # (Auto) Neut # (Auto) Lymph # (Auto) [place] # (Auto) Eos # (Auto) Baso # (Auto) Platelet Estimate ESR Sodium Potassium Chloride Carbon Dioxide Anion Gap BUN Creatinine Est Cr Clr Drug Dosing Est GFR ( Amer) Est GFR (Non-Af Amer) BUN/Creatinine Ratio Glucose POC Glucose 144 H Lactate Calcium Total Bilirubin AST ALT Alkaline Phosphatase Ammonia Troponin I 0.108 H* 0.197 H* C-Reactive Protein Total Protein Albumin Globulin Albumin/Globulin Ratio Procalcitonin Random Cortisol Urine Color Urine Appearance Urine pH Ur Specific [place] Urine Protein Urine Glucose (UA) Urine Ketones Urine Blood Urine Nitrite Urine Bilirubin Urine Urobilinogen Ur Leukocyte Esterase Urine WBC (Auto) Urine RBC (Auto) U Hyaline Cast (Auto) U Epithel Cells (Auto) Urine Bacteria (Auto) Nasal Screen MRSA (PCR) Diagnostic Findings XR foot LT min 3V routine CLINICAL HISTORY: Wound. Evaluate for osteomyelitis of the left calcaneus. COMPARISON: None FINDINGS: No acute fracture is noted. Extensive vascular calcification is noted. Tarsometatarsal joints are intact. Soft tissue swelling overlying the posterior aspect of the calcaneus is noted with suspected wound. There is subtle lucency within the posterior calcaneus. IMPRESSION: Soft tissue swelling and suspected wound overlying the posterior aspect of the calcaneus. Subtle calcaneal lucency equivocal for osteomyelitis. XR chest 1V portable CLINICAL HISTORY: Fever. Sepsis. COMPARISON STUDY: Chest radiograph January 14, 2019. FINDINGS: Note is made of a left subclavian pacer/AICD, median sternotomy wires, mediastinal surgical clips and spinal hardware. There is no pneumothorax. There is pulmonary vascular congestion with possible mild pulmonary edema. IMPRESSION: 1. Pulmonary vascular congestion with possible mild pulmonary edema. 2. Suspected small bilateral pleural fusions. Code Status & VTE Plan Code Status DNR VTE Prophylaxis Plan VTE Prophylaxis will be ordered: Yes PG Care Time/CCT Total # of Minutes Spent Total Time Spent with Patient: Total time spent is greater than 50% in coordination of care (as documented) at patient's floor/unit and/or counseling patient: (1) Osteomyelitis of foot Laterality: left Osteomyelitis type: unspecified type Qualified Code(s): M86.9 - Osteomyelitis, unspecified
[2019-01-31] MEDS: PIPERACILLIN/TAZOBACTAM 4.5 GM in DEXTROSE 5% 100 ML IV SCH ×2 (14:37→21:30)
[2019-01-31] MEDS: VANCOMYCIN HCL 1,500 MG in SODIUM CHLORIDE 0.9% 500 ML IV SCH (16:04)
[2019-01-31] MEDS ORDERED: LORazepam 1 MG/2 ML VIAL IV STA (18:26)
[2019-01-31] MEDS ORDERED: LORazepam 2 MG/4 ML VIAL ONE (18:31)
[2019-01-31] MEDS: SODIUM CHLORIDE 0.9% 1000ML 1,000 ML IV SCH (19:01)
[2019-02-01 03:15] LABS: INR 1.2 (0.9-1.1); Partial Thromboplastin Ratio 1.5; Partial Thromboplastin Time 40.7 Seconds (21.0-31.0); Prothrombin Time 11.8 Seconds (9.0-12.0)
[2019-02-01 03:22] LABS: Albumin Level 2.4 gm/dl (3.4-5.0); BUN Creatinine Ratio 17.9 (10-20); Bilirubin Direct 0.2 mg/dl (0-0.2); Creatinine Clr Calc Pharmacy 95.7 ml/min; Est GFR (African American) 105.7; Est GFR (Non-African American) 91.2; Magnesium 1.8 mg/dl (1.8-2.4); Potassium 3.8 mmol/L (3.5-5.1)
[2019-02-01 03:24] LABS: Bilirubin,Total 0.7 mg/dl (0.2-1); Phosphorus 3.1 mg/dl (2.5-4.9); Total Protein 5.6 gm/dl (6.4-8.2)
[2019-02-01] MEDS: VANCOMYCIN HCL 1,500 MG in SODIUM CHLORIDE 0.9% 500 ML IV SCH ×2 (03:28→15:52)
[2019-02-01] MEDS: PIPERACILLIN/TAZOBACTAM 4.5 GM in DEXTROSE 5% 100 ML IV SCH ×3 (05:36→21:33)
[2019-02-01] MEDS: FAMOTIDINE 20 MG in SYRINGE 3 ML IV SCH ×2 (05:37→17:39)
[2019-02-01] MEDS: SODIUM CHLORIDE 0.9% 1000ML 1,000 ML IV SCH ×2 (08:15→21:33)
[2019-02-01] MEDS: HEPARIN SOD 5,000 UNIT/0.5 ML VIAL SQ SCH ×2 (08:15→21:33)
[2019-02-01] MEDS ORDERED: VANCOMYCIN TROUGH ONE (15:30)
--- NOTE | 2019-02-01 17:00 | Pharmacy Report ---
Pharmacy Abx Dose Short Note - Date of Service February 01, 2019 - Assessment & Plan Laboratory Tests 02/01/19 15:27 Vancomycin Trough 21.1 Assessment 68 year old M receiving Vancomycin 1500mg IV q12 and Zosyn 4.5gm IV Q8 for treatment of Complicated UTI Day # 2 of antimicrobial therapy. Urine culture growing gram negative bacilli Blood cultures x 2 show no growth to date Plan Vancomycin * Trough level of 21.1 mcg/mL is supratherapeutic * Change to 1500 mg IV every 16 hours * Goal trough level for Complicated UTI: 15 to 20 mcg/mL * Trough or random level not ordered at this time. Pharmacy will continue to follow and will adjust dose/frequency as necessary. Thank you.
--- NOTE | 2019-02-01 23:53 | Hospitalist Progress Note ---
Date of Service February 01, 2019 Assessment & Plan (1) Severe sepsis: due to UTI continue Vancomcyin and Zosyn, follow up cultures UTI is due to chronic indwelling luna catheter urine culture growing GN bacilli blood cultures no growth BP was low but responded to aggressive fluids no need for pressors PICC line placed but able to be transferred out of ICU BP remains stable today (2) Acute UTI: see above continue abx, urine culture growing GN bacilli due to indwelling luna catheter (3) Osteomyelitis of foot: possible osteomyelitis abx cannot get MRI due to pacemaker/ICD (4) C. difficile colitis: once he is safe to take PO, will place on Vancomycin PO to prevent repeat C diff colitis (5) Lumbar stenosis with neurogenic claudication: ongoing, s/p multiple surgeries and I/D for abscess will need ongoing PT (6) Coronary artery disease: no chest pain minimal elevated in troponin, likely demand ischemia in setting of severe sepsis (7) Ischemic cardiomyopathy: no signs of volume overload resume Lasix 20mg PO daily, metoprolol, losartan once safely taking medications (8) Stage III chronic kidney disease: Cr remains stable as well as electrolytes (9) Metabolic encephalopathy: still lethargic today, mental status should improve with antibiotics and supportive care at baseline he is alert, oriented x 3 and fully aware of recent history Subjective patient lethargic most of the day he had some agitation last night, calling out loudly, yelling resolved with a dose of Ativan, slept all night on review of meds, he takes Ativan QID at reviewed labs, INR 1.2, Cr and electrolytes stable had some dark soft stools today, no diarrhea to suggest C diff still confused, unable to answer many questions not really awake long enough to eat/drink safely Review of Systems Review of Systems: Unobtainable due to cognitive status Physical Exam Constitutional: WD/WN, vitals as above Eyes: PERRL, conjunctivae normal, anicteric sclerae ENMT: external ear and nose normal, oropharynx normal Neck: trachea midline, no thyromegaly Respiratory: normal respiratory effort, lungs clear to auscultation Auscultation: + diminished lung sounds (bases) Cardiovascular: RRR, no murmur, no edema Gastrointestinal (Abdomen): normal bowel sounds, soft, nontender, no hepatosplenomegaly Musculoskeletal: Head/Neck/Chest: normocephalic and head atraumatic Spine: + limited thoraco-lumbar ROM (pain, weakness) Extremities: + abnormal streng th (weakness in legs bilaterally, cannot transfer or ambulate) Skin: no rashes, warm and dry + wound (heel ulcer) Neurologic: patellar DTR's 2+ bilat, sensation intact and PERRL, EOMI, accommodation nl, no face palsy, no dysarthria Psychiatric: Orientation: oriented to person and cooperative; + not alert (lethargic), + not oriented to place and + not oriented to time Lymphatic: no cervical or axillary lymphadenopathy Results & Data Vital Signs (Past 12 Hours) Vital Signs Temp Pulse Pulse Resp BP Pulse Ox 02/01/19 23:46 36.6 C 80 19 109/67 94 02/01/19 20:21 80 02/01/19 19:07 36.6 C 84 20 121/69 95 02/01/19 15:41 36.4 C L 87 19 118/74 94 Laboratory Results Laboratory Results - last 24 hr 02/01/19 02/01/19 02/01/19 02:37 02:37 02:37 PT 11.8 INR 1.2 H APTT 40.7 H PTT Ratio 1.5 Sodium 134 L Potassium 3.8 Chloride 101 Carbon Dioxide 25 Anion Gap 8.0 BUN 15 Creatinine 0.84 Est Cr Clr Drug Dosing 95.7 Est GFR ( Amer) 105.7 Est GFR (Non-Af Amer) 91.2 BUN/Creatinine Ratio 17.9 Glucose 100 H POC Glucose Calcium 8.0 L Phosphorus 3.1 Magnesium 1.8 Total Bilirubin 0.7 Direct Bilirubin 0.2 AST 18 ALT 12 Alkaline Phosphatase 55 Troponin I 0.189 H* Total Protein 5.6 L Albumin 2.4 L Vancomycin Trough 02/01/19 02/01/19 11:53 15:27 PT INR APTT PTT Ratio Sodium Potassium Chloride Carbon Dioxide Anion Gap BUN Creatinine Est Cr Clr Drug Dosing Est GFR ( Amer) Est GFR (Non-Af Amer) BUN/Creatinine Ratio Glucose POC Glucose 134 H Calcium Phosphorus Magnesium Total Bilirubin Direct Bilirubin AST ALT Alkaline Phosphatase Troponin I Total Protein Albumin Vancomycin Trough 21.1 Microbiology 01/31/19 00:39 Blood Aerobic Blood Culture - Preliminary No growth in Aerobic bottle after 24 hours. 01/31/19 00:39 Blood Anaerobic Blood Culture - Final 01/31/19 01:08 Blood Aerobic Blood Culture - Preliminary No growth in Aerobic bottle after 24 hours. 01/31/19 01:08 Blood Anaerobic Blood Culture - Final 01/31/19 00:42 Urine,Indwelling Cath Urine Culture - Preliminary Gram negative bacilli Medications Administered Current Inpatient Medications Heparin Sodium (Beef Lung) (Heparin Sod 10 Unit/Ml Flush) 5 ml FLUSH PRN PRN PRN Reason: Flush Stop: 03/02/19 09:19 Heparin Sodium (Porcine) (Heparin Sodium (Porcine)) 5,000 units SQ Q12 KAYLYNN Stop: 03/02/19 08:59 Last Admin: 02/01/19 21:33 Dose: 5,000 units Documented by: Famotidine 20 mg/ Syringe 5 mls @ 2.5 mls/min IV Q12H KAYLYNN Stop: 03/02/19 05:59 Last Admin: 02/01/19 17:39 Dose: 2.5 mls/min Documented by: Piperacillin Sod/Tazobactam (Sod 4.5 gm/ Dextrose) 120 mls @ 30 mls/hr IV Q8H KAYLYNN; Protocol Stop: 02/10/19 09:59 Last Admin: 02/01/19 21:33 Dose: 30 mls/hr Documented by: Sodium Chloride (Nss 1000ml) 1,000 mls @ 80 mls/hr IV .[id number] KAYLYNN Stop: 03/02/19 18:29 Last Admin: 02/01/19 21:33 Dose: 80 mls/hr Documented by: Vancomycin HCl 1,500 mg/ (Sodium Chloride) 530 mls @ 200 mls/hr IV Q16H KAYLYNN; Protocol Stop: 02/10/19 15:59 Miscellaneous (Icu Protocol For Hyperglycemia) 1 ea N/A PRN PRN; Protocol PRN Reason: Hyperglycemia Protocol Stop: 02/02/19 05:02 Miscellaneous Information (Consult) 1 ea N/A UD PRN PRN Reason: Consult Stop: 03/02/19 05:02 Miscellaneous Information (Consult) 1 ea N/A UD PRN PRN Reason: Consult Stop: 03/02/19 05:02 PG Care Time/CCT Total # of Minutes Spent Total Time Spent with Patient: Total time spent is greater than 50% in coordination of care (as documented) at patient's floor/unit and/or counseling patient: (1) Osteomyelitis of foot Laterality: left Osteomyelitis type: unspecified type Qualified Code(s): M86.9 - Osteomyelitis, unspecified
[2019-02-02] MEDS: PIPERACILLIN/TAZOBACTAM 4.5 GM in DEXTROSE 5% 100 ML IV SCH ×3 (06:20→21:47)
[2019-02-02] MEDS: FAMOTIDINE 20 MG in SYRINGE 3 ML IV SCH ×2 (06:20→17:57)
[2019-02-02 07:51] LABS: Basophils # (auto) 0.03 K/uL (0-0.2); Basophils % (auto) 0.5 %; Eosinophils # (auto) 0.12 K/uL (0-0.5); Hematocrit (blood only) 23.6 % (42-52); Hemoglobin 7.8 g/dL (14.0-18.0); Immature Granulocytes # (auto) 0.04 K/uL (0.00-0.02); Immature Granulocytes % (auto) 0.7 %; Lymphocytes # (auto) 0.66 K/uL (1.2-3.4); Lymphocytes % (auto) 10.8 %; Mean Corpuscular Hemoglobin 29.5 pg (25-34); Mean Corpuscular Hgb Conc 33.1 g/dL (32-36); Mean Corpuscular Volume 89.4 fL (80-100); Mean Platelet Volume 8.7 fL (7.4-10.4); Monocytes # (auto) 0.76 K/uL (0.11-0.59); Monocytes % (auto) 12.4 %; Neutrophils # (auto) 4.52 K/uL (1.4-6.5); Neutrophils % (auto) 73.6 %; Platelet Count 135 K/uL (130-400); RDW Coefficient of Variation 15.4 % (11.5-14.5); RDW Standard Deviation 50.8 fL (36.4-46.3); Red Blood Count 2.64 M/uL (4.7-6.1); White Blood Count 6.13 K/uL (4.8-10.8)
[2019-02-02] MEDS: HEPARIN SOD 5,000 UNIT/0.5 ML VIAL SQ SCH ×2 (08:03→21:47)
[2019-02-02] MEDS: VANCOMYCIN HCL 1,500 MG in SODIUM CHLORIDE 0.9% 500 ML IV SCH (08:05)
[2019-02-02] MEDS: SODIUM CHLORIDE 0.9% 1000ML 1,000 ML IV SCH (08:05)
[2019-02-02 08:08] LABS: INR 1.1 (0.9-1.1); Partial Thromboplastin Ratio 1.4; Prothrombin Time 11.3 Seconds (9.0-12.0)
[2019-02-02 08:12] LABS: RBC Morphology Unremarkable
[2019-02-02 08:20] LABS: Albumin Level 2.3 gm/dl (3.4-5.0); BUN Creatinine Ratio 15.6 (10-20); Bilirubin Direct 0.2 mg/dl (0-0.2); Calcium 8.3 mg/dl (8.5-10.1); Creatinine Clr Calc Pharmacy 99.4 ml/min; Est GFR (African American) 106.3; Est GFR (Non-African American) 91.7; Magnesium 1.9 mg/dl (1.8-2.4); Potassium 3.5 mmol/L (3.5-5.1)
[2019-02-02 08:23] LABS: Bilirubin,Total 0.7 mg/dl (0.2-1); Phosphorus 3.3 mg/dl (2.5-4.9); Total Protein 5.6 gm/dl (6.4-8.2)
[2019-02-02] MEDS: HYDROCODONE/ACETAMOPHEN 5/325MG TAB PO PRN ×3 (11:23→22:23)
[2019-02-02] MEDS: LIDOCAINE 5% 1 PATCH TD SCH (12:08)
[2019-02-02] MEDS ORDERED: IOVERSOL 100ml IV PRN (14:58)
--- NOTE | 2019-02-02 15:19 | CT Scan Report ---
CT foot LT w con HISTORY: 68 years-old Male ?heel osteomyelitis?; heel ulcer, SCAN WITH ONLY PER BRYAN(KF) nonhealing s oft tissue wound of the hindfoot. Clinical concern for possible osteomyelitis. COMPARISON: [Radiographs 01/31/2019 TECHNIQUE: Multiple axial CT images of the left foot were obtained following the intravenous administ ration of 93 and Optiray 320 IV contrast. A dose lowering technique was used consistent with the prin cipals of [place]. FINDINGS: Demineralized appearance of the bones. No acute fracture or dislocation. Mostly mild degenerative tejas nges are noted about the metatarsophalangeal and interphalangeal joints. Mild to moderate degenerativ e changes about the midfoot and hindfoot. Mild tibiotalar osteoarthritis. No osteochondral defect jordin ntified. Small to moderate enthesophytes of the calcaneus. Cortical lucency and irregularity about th e posterior cortex of the calcaneus measures up to 1.5 cm in craniocaudal dimension on image 42 serie s 301. Deep tissue air from the adjacent soft tissue ulceration extends into the bone and superficial medullary space. There is bony involvement measures up to approximately 2.2 cm transversely, image 8 0 of series 300. Large soft tissue ulcer with ill-defined margins is noted with moderate subcutaneous edema and small volume of subcutaneous emphysema. Moderate diffuse subcutaneous edema about the foot and ankle. Atrophy of the intrinsic musculature of the foot with peripheral arterial calcifications. Study is not tailored to assess the intrinsic tendons and ligaments. IMPRESSION: 1. Large soft tissue ulcer about the soft tissues posterior to the calcaneus redemonstrated. No drain able fluid collection. 2. Lytic bony erosion involves the cortex of the posterior calcaneal body deep to the soft tissue ulc eration compatible with acute osteomyelitis. 2. Extensive atrophy of the intrinsic foot musculature is likely secondary to denervation changes rel ated to chronic diabetes mellitus. 4. Peripheral arterial disease. 5. Diffuse subcutaneous edema suggests cellulitis. The above report was generated using voice recognition software. It may contain grammatical, syntax o r spelling errors. Electronically signed by: Kamari Veras M.D. 02/02/2019 3:17 PM
--- NOTE | 2019-02-02 19:27 | Hospitalist Progress Note ---
Date of Service February 02, 2019 Assessment & Plan (1) Severe sepsis: due to klebsiella UTI and left heel ulcer/osteomyelitis. sepsis improved. cont vanco/zosyn mainly to cover heel and osteomyelitis; will likely consult ID for their opinion on abx selection. blood cultures negative since admission. (2) Acute UTI: catheter-associated/luna-associated/complicated UTI. 2nd to klebsiella. has grown klebsiella multiple times this year. needs MAINE to r/o chronic prostatitis. cont current abx. (3) Unstageable pressure ulcer of heel: left appreciate wound care consultation CT today with evidence of heel osteomyelitis. spoke with Dr Guillermo who will consult tomorrow. check arterial duplex left leg to ensure intact arterial circulation. (4) Osteomyelitis of foot: left - as above in "pressure ulcer..." ortho, ID, wound care consults (5) C. difficile colitis: history of such no active disease, however place on probiotics in face of broad-spectrum abx (6) Lumbar stenosis with neurogenic claudication: ongoing, s/p multiple surgeries and I/D for epidural abscess in past had pain today - added norco prn, k-pad for heat, and lidoderm patches (7) Coronary artery disease: elevated troponin was likely demand ischemia in setting of severe sepsis no ischemic symptoms at this time (8) Ischemic cardiomyopathy: compensated if BP is stable tomorrow then resume beta angy STOP fluids in light of echo 11/2018 showing EF 25-30% (9) Stage III chronic kidney disease: Cr stable BMP am (10) Metabolic encephalopathy: multiple d/c summaries indicate tendencies toward metabolic encephalopathy in face of infectious processes does he also have baseline dementia or other cognitive d/o ?? supportive care avoid sedatives treat infections (11) Uncontrolled type 2 diabetes mellitus with neurologic complication, with long-term current use of insulin: AM glucose levels on BMPs stable needs BSG checks, however will order (12) DVT prophylaxis: heparin SC updated by phone all questions answered will need PT, OT Subjective patient confused during visit. thought it was Saturday and it was 1899. c/o back pain. asked me "should I call my and have her come in?" staff report confusion most of am. updated by phone - she is frustrated by how much illness he has had in the last 6-12 months. questions answered. tele stable overnight. Review of Systems Constitutional: no fever Respiratory: no cough and no dyspnea Cardiovascular: no chest pain Gastrointestinal: no abdominal pain Physical Exam Constitutional: + altered mental status; no acute distress ENMT: external ear and nose normal, oropharynx normal Respiratory: normal respiratory effort, lungs clear to auscultation Cardiovascular: Rate/Rhythm: regular rate and regular rhythm Heart Sounds: normal S1 and normal S2; no murmur Vessels: posterior tibial pulses present and dorsalis pedis pulses present; no JVD Extremities: + edema (b/l ankles/feet) Gastrointestinal (Abdomen): normal bowel sounds, soft, nontender, no hepatosplenomegaly Musculoskeletal: heel ulcer - left - see below Skin: large heel ulcer on left with foul odor and black eschar-like appearance; purulent drainage noted Psychiatric: Orientation: alert and oriented to person; + not oriented to place and + not oriented to time Results & Data Vital Signs (Past 12 Hours) Vital Signs Temp Pulse Pulse Resp BP Pulse Ox 02/02/19 15:44 36.7 C 79 18 121/65 96 02/02/19 15:26 76 02/02/19 11:14 36.7 C 93 H 16 148/74 H 94 02/02/19 08:00 75 Laboratory Results Laboratory Results - last 24 hr 02/02/19 02/02/19 02/02/19 07:42 07:42 07:42 WBC 6.13 RBC 2.64 L Hgb 7.8 L Hct 23.6 L MCV 89.4 MCH 29.5 MCHC 33.1 RDW Std Deviation 50.8 H RDW Coeff of [place]bert 15.4 H Plt Count 135 MPV 8.7 Immature Gran % (Auto) 0.7 Neut % (Auto) 73.6 Lymph % (Auto) 10.8 [place] % (Auto) 12.4 Eos % (Auto) 2.0 Baso % (Auto) 0.5 Immature Gran # (Auto) 0.04 H Neut # (Auto) 4.52 Lymph # (Auto) 0.66 L [place] # (Auto) 0.76 H Eos # (Auto) 0.12 Baso # (Auto) 0.03 RBC Morphology Unremarkable PT 11.3 INR 1.1 APTT 39.0 H PTT Ratio 1.4 Sodium 137 Potassium 3.5 Chloride 105 Carbon Dioxide 24 Anion Gap 8.0 BUN 13 Creatinine 0.83 Est Cr Clr Drug Dosing 99.4 Est GFR ( Amer) 106.3 Est GFR (Non-Af Amer) 91.7 BUN/Creatinine Ratio 15.6 Glucose 110 H POC Glucose Calcium 8.3 L Phosphorus 3.3 Magnesium 1.9 Total Bilirubin 0.7 Direct Bilirubin 0.2 AST 19 ALT 17 Alkaline Phosphatase 51 Total Protein 5.6 L Albumin 2.3 L 02/02/19 02/02/19 02/02/19 11:27 16:18 20:41 WBC RBC Hgb Hct MCV MCH MCHC RDW Std Deviation RDW Coeff of [place] Plt Count MPV Immature Gran % (Auto) Neut % (Auto) Lymph % (Auto) [place] % (Auto) Eos % (Auto) Baso % (Auto) Immature Gran # (Auto) Neut # (Auto) Lymph # (Auto) [place] # (Auto) Eos # (Auto) Baso # (Auto) RBC Morphology PT INR APTT PTT Ratio Sodium Potassium Chloride Carbon Dioxide Anion Gap BUN Creatinine Est Cr Clr Drug Dosing Est GFR ( Amer) Est GFR (Non-Af Amer) BUN/Creatinine Ratio Glucose POC Glucose 140 H 177 H 211 H Calcium Phosphorus Magnesium Total Bilirubin Direct Bilirubin AST ALT Alkaline Phosphatase Total Protein Albumin PG Care Time/CCT Total # of Minutes Spent Total Time Spent with Patient: Total time spent is greater than 50% in coordination of care (as documented) at patient's floor/unit and/or counseling patient: (1) Osteomyelitis of foot Laterality: left Osteomyelitis type: unspecified type Qualified Code(s): M86.9 - Osteomyelitis, unspecified (2) Coronary artery disease Coronary Disease-Associated Artery/Lesion type: [place] artery [place] vs. transplanted heart: [place] heart Associated angina: without angina Qualified Code(s): I25.10 - Atherosclerotic heart disease of [place] coronary artery without angina pectoris (3) Unstageable pressure ulcer of heel Laterality: left Qualified Code(s): L89.620 - Pressure ulcer of left heel, unstageable
--- NOTE | 2019-02-02 22:08 | Ultrasound Report ---
Study: Arterial Doppler left leg HISTORY: Foot wound FINDINGS: Somewhat limited exam due to calcified vessel rojas. Triphasic waveforms are noted within the left thigh arterial vasculature. Monophasic waveforms are noted within the 3 runoff vessels of the lower leg. Flossy characteristics remain unremarkable. No significant flow within the left peroneal artery. IMPRESSION: 1. Compromised exam due to calcified vessel rojas. 2. No significant stenotic process of the arterial vessels of the thigh. 3. Moderate arterial occlusive change of all vessels of the proximal calf 4. Occlusion of the distal left peroneal artery. Electronically signed by: Samuel Lindo M.D. 02/02/2019 10:07 PM
[2019-02-02] MEDS ORDERED: LORazepam 0.25 MG/0.5 ML VIAL IV STA (22:23)
[2019-02-03] MEDS: VANCOMYCIN HCL 1,500 MG in SODIUM CHLORIDE 0.9% 500 ML IV SCH ×2 (00:32→17:33)
[2019-02-03] MEDS: HYDROCODONE/ACETAMOPHEN 5/325MG TAB PO PRN ×4 (05:31→19:46)
[2019-02-03] MEDS: FAMOTIDINE 20 MG in SYRINGE 3 ML IV SCH (05:32)
[2019-02-03] MEDS: PIPERACILLIN/TAZOBACTAM 4.5 GM in DEXTROSE 5% 100 ML IV SCH ×3 (05:32→21:42)
[2019-02-03 06:49] LABS: Basophils # (auto) 0.04 K/uL (0-0.2); Basophils % (auto) 0.7 %; Eosinophils # (auto) 0.19 K/uL (0-0.5); Eosinophils % (auto) 3.4 %; Hematocrit (blood only) 21.5 % (42-52); Hemoglobin 7.2 g/dL (14.0-18.0); Immature Granulocytes # (auto) 0.04 K/uL (0.00-0.02); Immature Granulocytes % (auto) 0.7 %; Lymphocytes # (auto) 0.86 K/uL (1.2-3.4); Lymphocytes % (auto) 15.6 %; Mean Corpuscular Hemoglobin 29.9 pg (25-34); Mean Corpuscular Hgb Conc 33.5 g/dL (32-36); Mean Corpuscular Volume 89.2 fL (80-100); Monocytes # (auto) 0.82 K/uL (0.11-0.59); Monocytes % (auto) 14.9 %; Neutrophils # (auto) 3.57 K/uL (1.4-6.5); Neutrophils % (auto) 64.7 %; Platelet Count 147 K/uL (130-400); RDW Coefficient of Variation 15.5 % (11.5-14.5); RDW Standard Deviation 50.6 fL (36.4-46.3); Red Blood Count 2.41 M/uL (4.7-6.1); White Blood Count 5.52 K/uL (4.8-10.8)
[2019-02-03 07:17] LABS: RBC Morphology Unremarkable
[2019-02-03 07:21] LABS: BUN Creatinine Ratio 12.9 (10-20); Calcium 7.8 mg/dl (8.5-10.1); Creatinine Clr Calc Pharmacy 102.8 ml/min; Est GFR (African American) 107.3; Est GFR (Non-African American) 92.6; Potassium 3.1 mmol/L (3.5-5.1)
[2019-02-03 07:25] LABS: Ferritin 647.4 ng/ml (8-388)
[2019-02-03] MEDS: LACTOBACILLUS ACIDOPHILUS (FLORANEX) TAB PO SCH ×3 (08:12→17:33)
[2019-02-03] MEDS: HEPARIN SOD 5,000 UNIT/0.5 ML VIAL SQ SCH ×2 (08:12→21:06)
[2019-02-03] MEDS: LIDOCAINE 5% 1 PATCH TD SCH (08:13)
[2019-02-03] MEDS ORDERED: POTASSIUM CHLORIDE 20 MEQ TABCR PO ONE (10:00)
--- NOTE | 2019-02-03 10:42 | Infectious Disease Consult ---
Date of Consultation February 03, 2019 Assessment & Plan (1) Osteomyelitis of foot: 68-year-old male admitted with sepsis with evidence of osteomyelitis of the left heel in the setting of large ulcer, as well as Klebsiella urinary tract infection. Current treatment with vancomycin and Zosyn appropriate pending further culture results. Will likely need surgical intervention for debridement, await orthopedic consultation. Suspect will need prolonged IV antibiotics. Agree with instituting oral vancomycin if possible given history of recurrent C. difficile infection. Will follow. (2) Acute UTI: (3) Klebsiella infection: History of Present Illness Reason for Consultation: Left heel ulcer with osteomyelitis Attending Physician: Ricky Cunningham History of Present Illness 68-year-old male well-known to the infectious disease service, with history of spinal surgery complicated by recurrent paraspinal infection treated with prolonged IV antibiotics, history of fungal urinary tract infection treated with caspofungin, who is now admitted with sepsis. He has been recently treated successfully for urinary tract infection and C. difficile colitis, and been doing well until the day of admission when he became increasingly lethargic, with fever, chills, and confusion. He has been started empirically on broad- spectrum antibiotics with vancomycin and Zosyn. Has been found to have left heel eschar with surrounding erythema, and x-rays are suggestive of osteomyelitis. Also with evidence of recurrent urinary tract infection. Patient has improved with antibiotics and fluid resuscitation with improvement in lactate. Urine culture growing Klebsiella, blood cultures are no growth to date. Allergies Allergy/AdvReac Type Severity Reaction Status Date / Time No Known Drug Allergies Allergy Unknown Unverified 01/14/19 05:45 Home Medications Home Medications Medication Instructions Recorded Confirmed Type acetaminophen [Tylenol] 650 mg PO Q8 PRN 12/01/18 01/14/19 History aspirin [Aspir-81] 81 mg PO DAILY 12/01/18 01/14/19 History cholecalciferol (vitamin D3) 2,000 unit PO DAILY 12/01/18 01/14/19 History [Vitamin D3] clopidogrel [Plavix] 75 mg PO DAILY 12/01/18 01/14/19 History divalproex 250 mg PO Q12 12/01/18 01/14/19 History finasteride 5 mg PO DAILY 12/01/18 01/14/19 History insulin lispro [Humalog U-100 1 sliding scale dose SUBCUT 12/01/18 01/14/19 History Insulin] USEASDIRECTD metoprolol succinate [Toprol XL] 50 mg PO DAILY 12/01/18 01/14/19 History atorvastatin 40 mg PO QAM #1 tab 12/16/18 01/14/19 Rx gabapentin 100 mg PO BID #2 cap 12/16/18 01/14/19 Rx lidocaine 2 patch TRANSDERMAL DIRECTED 01/14/19 01/14/19 History tamsulosin [Flomax] 0.4 mg PO HS 01/14/19 01/14/19 History cephalexin 500 mg PO BID #14 cap 01/21/19 Rx ferrous sulfate 325 mg PO BIDM #60 tab 01/21/19 Rx furosemide 20 mg PO QAM #30 tab 01/21/19 Rx lorazepam 0.5 mg PO Q6H PRN #12 tab 01/21/19 Rx losartan 25 mg PO QAM #30 tab 01/21/19 Rx nystatin 1 applic EXT BID #15 g 01/21/19 Rx pantoprazole 40 mg PO BID #60 tab 01/21/19 Rx tramadol 50 mg PO Q4H PRN #12 tab 01/21/19 Rx Patient History Medical History Vitamin D deficiency (Acute) Thyroid disorder (Acute) Spinal stenosis (Acute) Restless legs syndrome (Acute) Diverticulosis (Acute) Disc degeneration, lumbar (Acute) Diabetic retinopathy (Acute) Diabetic peripheral neuropathy (Acute) Depression (Acute) Carotid artery stenosis (Acute) Anxiety (Acute) Ischemic cardiomyopathy EF WNL 11/2017 Full dentures (Acute) HTN (hypertension) (Acute) Abscess in epidural space of lumbar spine CHF (congestive heart failure) PREPARATOR 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 Admitted [facility] 10/18/11 for onset of incapacitating cervical myelopathy. Spinal tap showed PREPARATOR Lyme disease, MRI showed severe spinal cord compression at C3-4 with myelomalacia and intramedullary mass. Pt had c-spine surgery, subsequent prolonged hospital admission, complicated post-op course. Chronic kidney disease, stage III (moderate) Chronic sinusitis Dysphagia History of non-ST elevation myocardial infarction (NSTEMI) ICD (implantable cardioverter-defibrillator) in place Sudden cardiac Post-op 2011 [facility]. Now has ICD. Surgical History History of esophagogastroduodenoscopy (EGD) History of colonoscopy History of cardiac cath 2011 AT [facility] - UNSURE IF HE HAS STENTS. History of tracheostomy Hx of transurethral resection of prostate History of cataract extraction with lens replacement Hx of tonsillectomy (Acute) H/O cervical spine surgery (Acute) ACDI C3-4, C7 corpectomy, removal of C7 intramedullary mass. History of lumbar spinal fusion (Acute) S/P triple vessel bypass (Acute) [facility] [place] [facility] History of incision and drainage Lumbar spine on 08/11; complicated by difficult intubation with only #6.5 ETT able to be placed and patient kept intubated post op History of lumbar surgery 09/10/18 Glidescope 3 okay visualization but difficulty passing ETT, unable to pass 8.0, able to pass 7.0 with some difficulty Family History Mother , age 68 of COPD and respiratory issues COPD (chronic obstructive pulmonary disease) Father , in his 40s of an MS Myocardial infarction Other Diabetes Hypertension No pertinent family history Social History Preferred Language: Romanian Communication Ability: Impaired Visual Impairment: No Limitations Hearing Ability: Normal Kit Assembler Required: No Beliefs That Will Affect Care: None marital status: Current Living Situation: Senior Living Current Living Situation Comment: lives at [facility] 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al status: retired and disabled 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: 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 [employer] Feels Safe at Home: Yes Smoking Status: Never smoker Tobacco Type: smokeless tobacco ; Second Hand Exposure: No ; Hx Alcohol Use: No Hx Substance Use: No Review of Systems Review of Systems: Unobtainable due to cognitive status Physical Exam Constitutional: + ill appearing and + altered mental status; no acute distress Eyes: PERRL, conjunctivae normal, anicteric sclerae ENMT: external ear and nose normal, oropharynx normal Neck: trachea midline, no thyromegaly neck nontender Respiratory: normal respiratory effort, lungs clear to auscultation normal percussion; does not use accessory muscles Cardiovascular: Rate/Rhythm: regular rate and regular rhythm Heart Sounds: normal S1 and normal S2; no gallop, no murmur and no cardiac rub Vessels: normal peripheral pulses; no JVD Gastrointestinal (Abdomen): normal bowel sounds, soft, nontender, no hepatosplenomegaly Musculoskeletal: no cyanosis or clubbing, extremities motor strength 5/5 Spine: thoracic spine normal to inspection and lumbar spine normal to inspection; no cervical spinal tenderness Skin: normal turgor and + wound (Left heel eschar with surrounding erythema); no rashes Neurologic: moves all extremities, awake and + confused; no focal motor deficits and no meningeal signs Psychiatric: Orientation: alert, oriented to person and cooperative Lymphatic: no cervical or axillary lymphadenopathy no inguinal lymphadenopathy Results & Data Vital Signs (Past 12 Hours) Vital Signs Temp Pulse Pulse Resp BP Pulse Ox 02/03/19 08:00 75 02/03/19 06:51 36.5 C 67 18 120/72 94 02/03/19 04:00 36.9 C 71 17 115/71 93 02/02/19 23:12 36.7 C 77 19 125/73 97 Laboratory Results Short CBC 02/03/19 Range/Units 06:30 WBC 5.52 (4.8-10.8) K/uL Hgb 7.2 L (14.0-18.0) g/dL Hct 21.5 L (42-52) % Plt Count 147 (130-400) K/uL BMP 02/03/19 06:30 Sodium 138 Potassium 3.1 L Chloride 105 Carbon Dioxide 24 BUN 10 Creatinine 0.81 Glucose 120 H Calcium 7.8 L Diagnostic Findings Microbiology 01/31/19 00:42 Urine,Indwelling Cath Urine Culture - Final Klebsiella pneumoniae 01/31/19 01:08 Blood Aerobic Blood Culture - Preliminary No growth in Aerobic bottle after 48 hours. 01/31/19 01:08 Blood Anaerobic Blood Culture - Final 01/31/19 00:39 Blood Aerobic Blood Culture - Preliminary No growth in Aerobic bottle after 48 hours. 01/31/19 00:39 Blood Anaerobic Blood Culture - Final CT foot LT w con HISTORY: 68 years-old Male ?heel osteomyelitis?; heel ulcer, SCAN WITH ONLY PER BRYAN(KF) nonhealing soft tissue wound of the hindfoot. Clinical concern for possible osteomyelitis. COMPARISON: [Radiographs 01/31/2019 TECHNIQUE: Multiple axial CT images of the left foot were obtained following the intravenous administration of 93 and Optiray 320 IV contrast. A dose lowering technique was used consistent with the principals of ALARA. FINDINGS: Demineralized appearance of the bones. No acute fracture or dislocation. Mostly mild degenerative changes are noted about the metatarsophalangeal and interphalangeal joints. Mild to moderate degenerative changes about the midfoot and hindfoot. Mild tibiotalar osteoarthritis. No osteochondral defect identified. Small to moderate enthesophytes of the calcaneus. Cortical lucency and irregularity about the posterior cortex of the calcaneus measures up to 1.5 cm in craniocaudal dimension on image 42 series 301. Deep tissue air from the adjacent soft tissue ulceration extends into the bone and superficial medullary space. There is bony involvement measures up to approximately 2.2 cm transversely, image 80 of series 300. Large soft tissue ulcer with ill-defined margins is noted with moderate subcutaneous edema and small volume of subcutaneous emphysema. Moderate diffuse subcutaneous edema about the foot and ankle. Atrophy of the intrinsic musculature of the foot with peripheral arterial calcifications. Study is not tailored to assess the intrinsic tendons and ligaments. IMPRESSION: 1. Large soft tissue ulcer about the soft tissues posterior to the calcaneus redemonstrated. No drainable fluid collection. 2. Lytic bony erosion involves the cortex of the posterior calcaneal body deep to the soft tissue ulceration compatible with acute osteomyelitis. 2. Extensive atrophy of the intrinsic foot musculature is likely secondary to denervation changes related to chronic diabetes mellitus. 4. Peripheral arterial disease. 5. Diffuse subcutaneous edema suggests cellulitis. The above report was generated using voice recognition software. It may contain grammatical, syntax or spelling errors. PG Care Time/CCT Total # of Minutes Spent Total Time Spent with Patient: Total time spent is greater than 50% in coordination of care (as documented) at patient's floor/unit and/or counseling patient: (1) Osteomyelitis of foot Laterality: left Osteomyelitis type: unspecified type Qualified Code(s): M86.9 - Osteomyelitis, unspecified
[2019-02-03] MEDS: FERROUS SULFATE 325 MG TAB PO SCH ×2 (11:10→21:05)
[2019-02-03] MEDS: PANTOprazole 40 MG TAB PO SCH ×2 (11:10→21:05)
[2019-02-03] MEDS ORDERED: QUETIAPINE FUMARATE 25 MG TABLET PO SCH (12:30)
[2019-02-03] MEDS ORDERED: CARBOHYDRATES FOR HYPOGLYCEMIA PO PRN (13:00)
[2019-02-03] MEDS ORDERED: GLUCAGON FOR INJ 1 MG VIAL IM PRN (13:00)
[2019-02-03] MEDS ORDERED: DEXTROSE 50% 50 ML SYRINGE IV PRN (13:00)
[2019-02-03] MEDS ORDERED: GLUCOSE 40% GEL 15 GM TUBE PO PRN (13:00)
[2019-02-03] MEDS ORDERED: GLUCOSE 10 TABS/TUBE PO PRN (13:00)
[2019-02-03] MEDS: FUROSEMIDE 20 MG TAB PO SCH (13:03)
[2019-02-03] MEDS: HYDROmorphone INJ 0.5 MG/0.5 ML SYR IV PRN ×2 (13:27→19:48)
--- NOTE | 2019-02-03 16:35 | Orthopedic Consultation ---
Date of Consultation February 03, 2019 Assessment & Plan (1) Osteomyelitis of foot: Necrotic heel ulcer with osteo. Patient will require I+D, will have foot and ankle specialist, Dr Guillermo review case and give further treatment recommendations. Continue with IV abx per medicine/ID. NWB LLE. Heel precautions and wound care. Positive vascular studies will likely require vascular consultation for further eval/treatment. Thank you for the consultation. History of Present Illness Reason for Consultation: Left foot heel ulcer/osteo- Attending Physician: Ricky Cunningham History of Present Illness The patient is a 68-year-old maleWith significant past medical history as noted below and a more recent history of lumbar decompression complicated by repeated epidural abscesses after surgery. Taken for several I&D by Dr. Morales. Most recently he completed prolonged treatment with Daptomycin, Rocephin and Gume pofungin. He was then admitted for C diff colitis and concurrent UTI. He was treated with Vancomycin PO and planned to complete 14 days after finishing treatment for UTI. He reported that his diarrhea had gone away completely. He was discharged on 01/21/19 to [facility] for continued rehab and skilled care. He said he was doing well up until yesterday. He was eating. No chest pain, no dyspnea. He developed lethargy, fever, altered mental status and he was sent to the ED. In the ED he was found to be hypotensive but responded to fluid bolus. His UA was consistent with UTI but there were also concerns for heel ulcer and possible infection/cellulitis. He was admitted for further inpatient Observation and treatment. We were asked to see the patient in regards to his left heel ulcer/osteo-. Patient states that he first noticed symptoms 2 weeks prior to today's examination. The patient reports she was having it treated by the foot and ankle specialist at [facility]. Currently denies fevers, chills, nausea, vomiting, diarrhea, shortness of breath or chest pain. Allergies Allergy/AdvReac Type Severity Reaction Status Date / Time No Known Drug Allergies Allergy Unknown Unverified 01/14/19 05:45 Home Medications Home Medications Medication Instructions Recorded Confirmed Type acetaminophen [Tylenol] 650 mg PO Q8 PRN 12/01/18 01/14/19 History aspirin [Aspir-81] 81 mg PO DAILY 12/01/18 01/14/19 History cholecalciferol (vitamin D3) 2,000 unit PO DAILY 12/01/18 01/14/19 History [Vitamin D3] clopidogrel [Plavix] 75 mg PO DAILY 12/01/18 01/14/19 History divalproex 250 mg PO Q12 12/01/18 01/14/19 History finasteride 5 mg PO DAILY 12/01/18 01/14/19 History insulin lispro [Humalog U-100 1 sliding scale dose SUBCUT 12/01/18 01/14/19 History Insulin] USEASDIRECTD metoprolol succinate [Toprol XL] 50 mg PO DAILY 12/01/18 01/14/19 History atorvastatin 40 mg PO QAM #1 tab 12/16/18 01/14/19 Rx gabapentin 100 mg PO BID #2 cap 12/16/18 01/14/19 Rx lidocaine 2 patch TRANSDERMAL DIRECTED 01/14/19 01/14/19 History tamsulosin [Flomax] 0.4 mg PO HS 01/14/19 01/14/19 History cephalexin 500 mg PO BID #14 cap 01/21/19 Rx ferrous sulfate 325 mg PO BIDM #60 tab 01/21/19 Rx furosemide 20 mg PO QAM #30 tab 01/21/19 Rx lorazepam 0.5 mg PO Q6H PRN #12 tab 01/21/19 Rx losartan 25 mg PO QAM #30 tab 01/21/19 Rx nystatin 1 applic EXT BID #15 g 01/21/19 Rx pantoprazole 40 mg PO BID #60 tab 01/21/19 Rx tramadol 50 mg PO Q4H PRN #12 tab 01/21/19 Rx Patient History Medical History Vitamin D deficiency (Acute) Thyroid disorder (Acute) Spinal stenosis (Acute) Restless legs syndrome (Acute) Diverticulosis (Acute) Disc degeneration, lumbar (Acute) Diabetic retinopathy (Acute) Diabetic peripheral neuropathy (Acute) Depression (Acute) Carotid artery stenosis (Acute) Anxiety (Acute) Ischemic cardiomyopathy EF WNL 11/2017 Full dentures (Acute) HTN (hypertension) (Acute) Abscess in epidural space of lumbar spine CHF (congestive heart failure) 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 Admitted [facility] 10/18/11 for onset of incapacitating cervical myelopathy. Spinal tap showed CLASSROOM PARAPROFESSIONAL Lyme disease, MRI showed severe spinal cord compression at C3-4 with myelomalacia and intramedullary mass. Pt had c-spine surgery, subsequent prolonged hospital admission, complicated post-op course. Chronic kidney disease, stage III (moderate) Chronic sinusitis Dysphagia History of non-ST elevation myocardial infarction (NSTEMI) ICD (implantable cardioverter-defibrillator) in place Sudden cardiac Post-op 2011 [facility]. Now has ICD. Surgical History History of esophagogastroduodenoscopy (EGD) History of colonoscopy History of cardiac cath 2011 AT [facility] - UNSURE IF HE HAS STENTS. History of tracheostomy Hx of transurethral resection of prostate History of cataract extraction with lens replacement Hx of tonsillectomy (Acute) H/O cervical spine surgery (Acute) ACDI C3-4, C7 corpectomy, removal of C7 intramedullary mass. History of lumbar spinal fusion (Acute) S/P triple vessel bypass (Acute) [facility] [place] [facility] History of incision and drainage Lumbar spine on 08/11; complicated by difficult intubation with only #6.5 ETT able to be placed and patient kept intubated post op History of lumbar surgery 09/10/18 Glidescope 3 okay visualization but difficulty passing ETT, unable to pass 8.0, able to pass 7.0 with some difficulty Family History Mother , age 68 of COPD and respiratory issues COPD (chronic obstructive pulmonary disease) Father , in his 40s of an MA Myocardial infarction Other Diabetes Hypertension No pertinent family history Social History Preferred Language: Armenian Communication Ability: Impaired Visual Impairment: No Limitations Hearing Ability: Normal Fish Agent Required: No Beliefs That Will Affect Care: None marital status: Current Living Situation: Care Home Current Living Situation Comment: lives at [facility] 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al status: retired and disabled 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 Constitutional: WD/WN, vitals as above Results & Data Vital Signs (Past 12 Hours) Vital Signs Temp Pulse Pulse Resp BP Pulse Ox 02/03/19 15:56 36.7 C 73 16 108/64 96 02/03/19 11:15 36.3 C L 74 18 150/81 H 97 02/03/19 08:00 75 02/03/19 06:51 36.5 C 67 18 120/[address] foot LT w con HISTORY: 68 years-old Male ?heel osteomyelitis?; heel ulcer, SCAN WITH ONLY PER JMA(KF) nonhealing soft tissue wound of the hindfoot. Clinical concern for possible osteomyelitis. COMPARISON: [Radiographs 01/31/2019 TECHNIQUE: Multiple axial CT images of the left foot were obtained following the intravenous administration of 93 and Optiray 320 IV contrast. A dose lowering technique was used consistent with the principals of ALARA. FINDINGS: Demineralized appearance of the bones. No acute fracture or dislocation. Mostly mild degenerative changes are noted about the metatarsophalangeal and interphalangeal joints. Mild to moderate degenerative changes about the midfoot and hindfoot. Mild tibiotalar osteoarthritis. No osteochondral defect identified. Small to moderate enthesophytes of the calcaneus. Cortical lucency and irregularity about the posterior cortex of the calcaneus measures up to 1.5 cm in craniocaudal dimension on image 42 series 301. Deep tissue air from the adjacent soft tissue ulceration extends into the bone and superficial medullary space. There is bony involvement measures up to approximately 2.2 cm transversely, image 80 of series 300. Large soft tissue ulcer with ill-defined margins is noted with moderate subcutaneous edema and small volume of subcutaneous emphysema. Moderate diffuse subcutaneous edema about the foot and ankle. Atrophy of the intrinsic musculature of the foot with peripheral arterial calcifications. Study is not tailored to assess the intrinsic tendons and ligaments. IMPRESSION: 1. Large soft tissue ulcer about the soft tissues posterior to the calcaneus redemonstrated. No drainable fluid collection. 2. Lytic bony erosion involves the cortex of the posterior calcaneal body deep to the soft tissue ulceration compatible with acute osteomyelitis. 2. Extensive atrophy of the intrinsic foot musculature is likely secondary to denervation changes related to chronic diabetes mellitus. 4. Peripheral arterial disease. 5. Diffuse subcutaneous edema suggests cellulitis. XR foot LT min 3V routine CLINICAL HISTORY: Wound. Evaluate for osteomyelitis of the left calcaneus. COMPARISON: None FINDINGS: No acute fracture is noted. Extensive vascular calcification is noted. Tarsometatarsal joints are intact. Soft tissue swelling overlying the posterior aspect of the calcaneus is noted with suspected wound. There is subtle lucency within the posterior calcaneus. IMPRESSION: Soft tissue swelling and suspected wound overlying the posterior aspect of the calcaneus. Subtle calcaneal lucency equivocal for osteomyelitis. (1) Osteomyelitis of foot Laterality: left Osteomyelitis type: unspecified type Qualified Code(s): M86.9 - Osteomyelitis, unspecified
[2019-02-03] MEDS: INSULIN ASPART 100 UNITS/ML 3 ML PEN SC SCH ×2 (17:34→21:05)
--- NOTE | 2019-02-03 18:23 | Consultation ---
Date of Consultation February 03, 2019 Assessment & Plan (1) Osteomyelitis of foot: 2. Lower extremity peripheral arterial disease 3. Uncontrolled type 2 diabetes 4. Severe multivessel coronary artery disease, ischemic cardiomyopathy 5. Recent recurrent paraspinal abscesses post surgery 6. Anemia 7. Catheter associated UTI 8. Prior C. difficile Threatened left lower extremity with deep ulceration involving the heel and associated osteomyelitis. Reviewed lower extremity arterial duplex which showed patent inflow and SFA/popliteal arteries with triphasic waveforms. BASHIR/EXTENSION SERVICE ADVISOR appear patent to the foot. Distal peroneal occluded. On exam patient has 2+ DP/PT pulses and distal foot appears reasonably perfused. Unclear of perfusion to ulcer bed/area of osteomyelitis. Assuming no plans for more proximal amputation reasonable to perform left lower extremity angiogram to see if perfusion to heel can be optimized prior to surgical debridement, Pending surgical plans could perform angiogram morning. Laterality: left Osteomyelitis type: unspecified type Qualified Code(s): M86.9 - Osteomyelitis, unspecified History of Present Illness Attending Physician: Ricky Cunningham History of Present Illness Mr. Cooper is a 68-year-old male with a complex past medical history admitted with sepsis in the setting of catheter associated UTI and left heel ulcer/osteomyelitis. Interventional cardiology consulted due to left lower extremity peripheral arterial disease. Recent history remarkable for lumbar decompression lumbar stenosis complicated by repeated epidural abscesses post surgery requiring I&D and hardware removal with Dr. Morales. Underwent prolonged treatment with daptomycin, Rocephin and Capsofungin. Has been residing at [facility] and was initially noted to have a unstageable pressure ulcer of his left heel 3 weeks ago. Underwent debridement with wound at that time. CT of foot this hospitalization consistent with acute osteomyelitis. Arterial duplex obtained yesterday reported as moderate arterial occlusive change of all vessels of the proximal calf with occlusion of distal left peroneal artery. ABIs unobtainable due to noncompressible vessels. Today at time of interview patient sleepy. Denies any significant pain. Afebrile, hemodynamically stable. On IV vancomycin and Zosyn. Blood cultures no growth to date. Urine with Klebsiella. Other past medical history includes: Ischemic cardiomyopathy/chronic CHF with EF 25 to 30% and inferior akinesis post prior AICD, severe coronary artery disease post CABG with patent DELATORRE to LAD and severe [place] circumflex, ramus RCA disease 07/2018, type 2 diabetes, hypertension, dyslipidemia anemia, prior PAULA. Allergies Allergy/AdvReac Type Severity Reaction Status Date / Time No Known Drug Allergies Allergy Unknown Unverified 01/14/19 05:45 Home Medications Home Medications Medication Instructions Recorded Confirmed Type acetaminophen [Tylenol] 650 mg PO Q8 PRN 12/01/18 01/14/19 History aspirin [Aspir-81] 81 mg PO DAILY 12/01/18 01/14/19 History cholecalciferol (vitamin D3) 2,000 unit PO DAILY 12/01/18 01/14/19 History [Vitamin D3] clopidogrel [Plavix] 75 mg PO DAILY 12/01/18 01/14/19 History divalproex 250 mg PO Q12 12/01/18 01/14/19 History finasteride 5 mg PO DAILY 12/01/18 01/14/19 History insulin lispro [Humalog U-100 1 sliding scale dose SUBCUT 12/01/18 01/14/19 History Insulin] USEASDIRECTD metoprolol succinate [Toprol XL] 50 mg PO DAILY 12/01/18 01/14/19 History atorvastatin 40 mg PO QAM #1 tab 12/16/18 01/14/19 Rx gabapentin 100 mg PO BID #2 cap 12/16/18 01/14/19 Rx lidocaine 2 patch TRANSDERMAL DIRECTED 01/14/19 01/14/19 History tamsulosin [Flomax] 0.4 mg PO HS 01/14/19 01/14/19 History cephalexin 500 mg PO BID #14 cap 01/21/19 Rx ferrous sulfate 325 mg PO BIDM #60 tab 01/21/19 Rx furosemide 20 mg PO QAM #30 tab 01/21/19 Rx lorazepam 0.5 mg PO Q6H PRN #12 tab 01/21/19 Rx losartan 25 mg PO QAM #30 tab 01/21/19 Rx nystatin 1 applic EXT BID #15 g 01/21/19 Rx pantoprazole 40 mg PO BID #60 tab 01/21/19 Rx tramadol 50 mg PO Q4H PRN #12 tab 01/21/19 Rx Patient History Medical History Vitamin D deficiency (Acute) Thyroid disorder (Acute) Spinal stenosis (Acute) Restless legs syndrome (Acute) Diverticulosis (Acute) Disc degeneration, lumbar (Acute) Diabetic retinopathy (Acute) Diabetic peripheral neuropathy (Acute) Depression (Acute) Carotid artery stenosis (Acute) Anxiety (Acute) Ischemic cardiomyopathy EF WNL 11/2017 Full dentures (Acute) HTN (hypertension) (Acute) Abscess in epidural space of lumbar spine CHF (congestive heart failure) 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 Admitted [facility] 10/18/11 for onset of incapacitating cervical myelopathy. Spinal tap showed CARBIDE TOOL DIE MAKER Lyme disease, MRI showed severe spinal cord compression at C3-4 with myelomalacia and intramedullary mass. Pt had c-spine surgery, subsequent prolonged hospital admission, complicated post-op course. Chronic kidney disease, stage III (moderate) Chronic sinusitis Dysphagia History of non-ST elevation myocardial infarction (NSTEMI) ICD (implantable cardioverter-defibrillator) in place Sudden cardiac Post-op 2011 [facility]. Now has ICD. Surgical History History of esophagogastroduodenoscopy (EGD) History of colonoscopy History of cardiac cath 2011 AT [facility] - UNSURE IF HE HAS STENTS. History of tracheostomy Hx of transurethral resection of prostate History of cataract extraction with lens replacement Hx of tonsillectomy (Acute) H/O cervical spine surgery (Acute) ACDI C3-4, C7 corpectomy, removal of C7 intramedullary mass. History of lumbar spinal fusion (Acute) S/P triple vessel bypass (Acute) [id number] History of incision and drainage Lumbar spine on 08/11; complicated by difficult intubation with only #6.5 ETT able to be placed and patient kept intubated post op History of lumbar surgery 09/10/18 Glidescope 3 okay visualization but difficulty passing ETT, unable to pass 8.0, able to pass 7.0 with some difficulty Family History Mother , age 68 of COPD and respiratory issues COPD (chronic obstructive pulmonary disease) Father , in his 40s of an [place] Myocardial infarction Other Diabetes Hypertension No pertinent family history Social History Preferred Language: [place] Communication Ability: Impaired Visual Impairment: No Limitations Hearing Ability: Normal Deli Worker Required: No Beliefs That Will Affect Care: None marital status: Current Living Situation: Intermediate Current Living Situation Comment: lives at [facility] 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al status: retired and disabled 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 [employer] Feels Safe at Home: Yes Smoking Status: Never smoker Tobacco Type: smokeless tobacco ; Second Hand Exposure: No ; Hx Alcohol Use: No Hx Substance Use: No Review of Systems Review of Systems: Unobtainable due to reduced consciousness Physical Exam Constitutional: + obese and + lethargic (Intermittently answers questions) Eyes: + anicteric sclerae Respiratory: normal respiratory effort; no respiratory distress Auscultation: no crackles Cardiovascular: Rate/Rhythm: regular rate Heart Sounds: + murmur (2/6 at apex) Vessels: radial pulses present; no JVD Extremities: + edema (1-2+ edema to the ankle) 2+ femoral pulses 2+ DP/PT pulses bilaterally Mildly reduced capillary refill on left Skin: Large, deep ulceration involving posterior aspect of the heel with eschar at base. Minimal surrounding erythema. Results & Data Vital Signs (Past 12 Hours) Vital Signs Temp Pulse Pulse Resp BP Pulse Ox 02/03/19 15:56 98.1 F 73 16 108/64 96 02/03/19 11:15 97.3 F L 74 18 150/81 H 97 02/03/19 08:00 75 02/03/19 06:51 97.7 F 67 18 120/72 94 PG Care Time/CCT Total # of Minutes Spent Total Time Spent with Patient: Total time spent is greater than 50% in coordination of care (as documented) at patient's floor/unit and/or counseling patient:
[2019-02-03] MEDS ORDERED: QUETIAPINE FUMARATE 25 MG TABLET PO PRN (21:01)
--- NOTE | 2019-02-03 21:43 | Hospitalist Progress Note ---
Date of Service February 03, 2019 Assessment & Plan (1) Severe sepsis: due to klebsiella UTI and left heel ulcer/osteomyelitis. sepsis improved. cont vanco/zosyn mainly to cover heel and osteomyelitis; consulted ID for their opinion on abx selection. blood cultures negative since admission. (2) Acute UTI: catheter-associated/luna-associated/complicated UTI. 2nd to klebsiella. has grown klebsiella multiple times this year. needs MAINE to r/o chronic prostatitis. if present will need protracted course of PO abx for such (4+ weeks). cont current abx. (3) Unstageable pressure ulcer of heel: left appreciate wound care consultation CT with evidence of heel osteomyelitis. spoke with Dr Guillermo and Ildefonso Forman from orthopedics - he will need surgery for washout/debridement - perhaps later this week. checked arterial duplex left leg - PAD found - Dr Larose consulted for such. continue local wound care. (4) Osteomyelitis of foot: left - as above in "pressure ulcer..." ortho, ID, cardiology, wound care consults appreciated (5) C. difficile colitis: history of such no active disease, however placed on probiotics in face of broad-spectrum abx vanco for prophylaxis? defer to ID (6) Lumbar stenosis with neurogenic claudication: ongoing, s/p multiple surgeries and I/D for epidural abscess in past norco prn pain, k-pad heat, and lidoderm patches (7) Coronary artery disease: elevated troponin was likely demand ischemia in setting of severe sepsis still no ischemic symptoms (8) Ischemic cardiomyopathy: compensated echo 11/2018 showing EF 25-30% resume beta angy low-dose if BP will allow (9) Stage III chronic kidney disease: Cr stable BMP am again for stability (10) Metabolic encephalopathy: multiple d/c summaries indicate tendencies toward metabolic encephalopathy in face of infectious processes he has even had obtundation in face of infection does he also have baseline dementia or other cognitive d/o ?? multiple CT heads this year wnl treat underlying infections avoid sedatives gave seroquel 12.5mg po x 1 this am will schedule seroquel 12.5mg at HS titrate for optimal effect (11) Uncontrolled type 2 diabetes mellitus with neurologic complication, with long-term current use of insulin: AM glucose levels on BMPs stable BSGs ac/hs and novolog sliding scale add lantus if necessary (12) Anemia in chronic illness: Hb trending towards 7 baseline about 8.5 to 9 anemia of chronic disease iron studies today c/w ACD repeat CBC in am if Hb is near 7 then Tx PRBCs he remains hemodynamically stable (13) PAD (peripheral artery disease): left leg Dr Larose planning arteriogram this week (14) DVT prophylaxis: heparin SC updated by phone 02/02 PT/OT evals care d/w orthopedics and cardiology today Subjective patient quite confused during the visit. thought he was at a community center and that it was Saturday. he asked for his friend "Tania" to come in to see him; in fact, during our conversation, he started yelling her name into the hallway. when asked if he was having pain he stated "my feet are cold - but they are always cold." staff report he intermittently c/o back pain. poor appetite. slept poorly last pm. tele wnl. Review of Systems Review of Systems: Unobtainable due to cognitive status Physical Exam Constitutional: + altered mental status; no acute distress ENMT: external ear and nose normal, oropharynx normal Respiratory: normal respiratory effort, lungs clear to auscultation Auscultation: + diminished lung sounds (bases) Cardiovascular: Rate/Rhythm: regular rate and regular rhythm Heart Sounds: normal S1 and normal S2; no murmur Vessels: posterior tibial pulses present and dorsalis pedis pulses present; no JVD Extremities: + edema (b/l ankles/feet) Gastrointestinal (Abdomen): normal bowel sounds, soft, nontender, no hepatosplenomegaly Inspection/Auscultation: + abdomen distended (mild) Skin: large ulcer w/ odor left heel Psychiatric: Orientation: alert and oriented to person; + not oriented to place and + not oriented to time Results & Data Vital Signs (Past 12 Hours) Vital Signs Temp Pulse Pulse Resp BP Pulse Ox 02/03/19 19:19 36.4 C L 76 18 116/56 L 97 02/03/19 16:00 82 02/03/19 15:56 36.7 C 73 16 108/64 96 02/03/19 11:15 36.3 C L 74 18 150/81 H 97 Laboratory Results Laboratory Results - last 24 hr 02/03/19 02/03/19 02/03/19 06:30 06:30 07:49 WBC 5.52 RBC 2.41 L Hgb 7.2 L Hct 21.5 L MCV 89.2 MCH 29.9 MCHC 33.5 RDW Std Deviation 50.6 H RDW Coeff of Norbert 15.5 H Plt Count 147 MPV 9.0 Immature Gran % (Auto) 0.7 Neut % (Auto) 64.7 Lymph % (Auto) 15.6 Cowley % (Auto) 14.9 Eos % (Auto) 3.4 Baso % (Auto) 0.7 Immature Gran # (Auto) 0.04 H Neut # (Auto) 3.57 Lymph # (Auto) 0.86 L Cowley # (Auto) 0.82 H Eos # (Auto) 0.19 Baso # (Auto) 0.04 RBC Morphology Unremarkable Sodium 138 Potassium 3.1 L Chloride 105 Carbon Dioxide 24 Anion Gap 9.0 BUN 10 Creatinine 0.81 Est Cr Clr Drug Dosing 102.8 Est GFR ( Amer) 107.3 Est GFR (Non-Af Amer) 92.6 BUN/Creatinine Ratio 12.9 Glucose 120 H POC Glucose 145 H Calcium 7.8 L Iron 68 Transferrin 118 L Transferrin % Sat 41 Ferritin 647.4 H 02/03/19 02/03/19 02/03/19 11:17 16:09 20:10 WBC RBC Hgb Hct MCV MCH MCHC RDW Std Deviation RDW Coeff of Norbert Plt Count MPV Immature Gran % (Auto) Neut % (Auto) Lymph % (Auto) Cowley % (Auto) Eos % (Auto) Baso % (Auto) Immature Gran # (Auto) Neut # (Auto) Lymph # (Auto) Cowley # (Auto) Eos # (Auto) Baso # (Auto) RBC Morphology Sodium Potassium Chloride Carbon Dioxide Anion Gap BUN Creatinine Est Cr Clr Drug Dosing Est GFR ( Amer) Est GFR (Non-Af Amer) BUN/Creatinine Ratio Glucose POC Glucose 190 H 172 H 127 H Calcium Iron Transferrin Transferrin % Sat Ferritin PG Care Time/CCT Total # of Minutes Spent Total Time Spent with Patient: Total time spent is greater than 50% in coordination of care (as documented) at patient's floor/unit and/or counseling patient: (1) Unstageable pressure ulcer of heel Laterality: left Qualified Code(s): L89.620 - Pressure ulcer of left heel, unstageable (2) Coronary artery disease Associated angina: without angina Coronary Disease-Associated Artery/Lesion type: [place] artery [place] vs. transplanted heart: [place] heart Qualified Code(s): I25.10 - Atherosclerotic heart disease of [place] coronary artery without angina pectoris (3) Osteomyelitis of foot Laterality: left Osteomyelitis type: unspecified type Qualified Code(s): M86.9 - Osteomyelitis, unspecified
[2019-02-04] MEDS: HYDROmorphone INJ 0.5 MG/0.5 ML SYR IV PRN ×5 (00:14→23:45)
[2019-02-04] MEDS: HYDROCODONE/ACETAMOPHEN 5/325MG TAB PO PRN ×3 (00:17→21:15)
[2019-02-04] MEDS ORDERED: SODIUM CHLORIDE 0.9% 250 ML IV PRN ×2 (05:18→17:11)
[2019-02-04] MEDS: PIPERACILLIN/TAZOBACTAM 4.5 GM in DEXTROSE 5% 100 ML IV SCH ×3 (05:56→21:12)
[2019-02-04 06:08] LABS: Basophils # (auto) 0.04 K/uL (0-0.2); Basophils % (auto) 0.6 %; Eosinophils # (auto) 0.26 K/uL (0-0.5); Eosinophils % (auto) 3.8 %; Hematocrit (blood only) 22.5 % (42-52); Hemoglobin 7.5 g/dL (14.0-18.0); Immature Granulocytes # (auto) 0.07 K/uL (0.00-0.02); Lymphocytes % (auto) 19.1 %; Mean Corpuscular Hemoglobin 29.9 pg (25-34); Mean Corpuscular Hgb Conc 33.3 g/dL (32-36); Mean Corpuscular Volume 89.6 fL (80-100); Mean Platelet Volume 8.7 fL (7.4-10.4); Monocytes # (auto) 0.79 K/uL (0.11-0.59); Monocytes % (auto) 11.6 %; Neutrophils # (auto) 4.33 K/uL (1.4-6.5); Neutrophils % (auto) 63.9 %; Platelet Count 177 K/uL (130-400); RDW Coefficient of Variation 15.5 % (11.5-14.5); Red Blood Count 2.51 M/uL (4.7-6.1); White Blood Count 6.79 K/uL (4.8-10.8)
[2019-02-04 06:29] LABS: RBC Morphology Unremarkable
[2019-02-04 06:45] LABS: Calcium 8.3 mg/dl (8.5-10.1); Creatinine Clr Calc Pharmacy 102.3 ml/min; Est GFR (African American) 107.3; Est GFR (Non-African American) 92.6; Potassium 3.4 mmol/L (3.5-5.1)
[2019-02-04] MEDS: PANTOprazole 40 MG TAB PO SCH ×2 (08:55→21:11)
[2019-02-04] MEDS: FERROUS SULFATE 325 MG TAB PO SCH ×2 (08:55→21:11)
[2019-02-04] MEDS: HEPARIN SOD 5,000 UNIT/0.5 ML VIAL SQ SCH ×2 (08:56→21:12)
[2019-02-04] MEDS: FUROSEMIDE 20 MG TAB PO SCH (08:56)
[2019-02-04] MEDS: LACTOBACILLUS ACIDOPHILUS (FLORANEX) TAB PO SCH ×3 (08:56→16:33)
[2019-02-04] MEDS: LIDOCAINE 5% 1 PATCH TD SCH (08:57)
[2019-02-04] MEDS: INSULIN ASPART 100 UNITS/ML 3 ML PEN SC SCH ×4 (08:57→20:22)
--- NOTE | 2019-02-04 11:38 | Cardiology Progress Note ---
Date of Service February 04, 2019 Assessment & Plan (1) Osteomyelitis of foot: 2. Lower extremity peripheral arterial disease 3. Uncontrolled type 2 diabetes 4. Severe multivessel coronary artery disease, ischemic cardiomyopathy 5. Recent recurrent paraspinal abscesses post surgery 6. Anemia 7. Catheter associated UTI 8. Prior C. difficile Threatened left lower extremity with deep ulceration involving the heel with associated osteomyelitis. Arterial duplex suggestive of tibial/peroneal disease. Orthopedics planning debridement at some point. Plan for LT LE angiogram to eval blood supply to ulcer bed. Tentatively tomorrow AM ~11. Please keep NPO past midnight Subjective More awake this morning. Generally uncomfortable. State left leg feels numb. No other new concerns. Tele reviewed -- no events. Review of Systems Review of Systems: Unobtainable due to cognitive status Physical Exam Constitutional: + obese; no acute distress Eyes: + anicteric sclerae Respiratory: normal respiratory effort; no respiratory distress Auscultation: no crackles Cardiovascular: Rate/Rhythm: regular rate Heart Sounds: + murmur (2/6 at apex) Vessels: radial pulses present; no JVD Extremities: + edema (1-2+ edema to the ankle) 2+ DP/PT pulses on LT, normal cap refill wound dressed without surrounding erythema. Neurologic: decreased sensation in LEs bilaterally Psychiatric: Orientation: oriented to person Results & Data Vital Signs (Past 12 Hours) Vital Signs Temp Pulse Pulse Resp BP Pulse Ox 02/04/19 06:59 97.9 F 80 16 128/71 91 02/04/19 04:00 99.0 F 85 16 100/60 92 02/04/19 00:00 78 PG Care Time/CCT Total # of Minutes Spent Total Time Spent with Patient: Total time spent is greater than 50% in coordination of care (as documented) at patient's floor/unit and/or counseling patient: (1) Osteomyelitis of foot Laterality: left Osteomyelitis type: unspecified type Qualified Code(s): M86.9 - Osteomyelitis, unspecified
[2019-02-04] MEDS: POTASSIUM CHLORIDE 20 MEQ TABCR PO SCH (13:12)
[2019-02-04] MEDS: VANCOMYCIN HCL 1,500 MG in SODIUM CHLORIDE 0.9% 500 ML IV SCH (13:12)
--- NOTE | 2019-02-04 15:07 | Infectious Disease Progress Nt ---
Date of Service February 04, 2019 Assessment & Plan (1) Osteomyelitis of foot: 68-year-old male admitted with sepsis with evidence of osteomyelitis of the left heel in the setting of large ulcer, as well as Klebsiella urinary tract infection. Current treatment with vancomycin and Zosyn appropriate pending final culture results. Will likely need surgical intervention for debridement, to proceed with angiography first prior to surgical intervention. Will follow. (2) Acute UTI: (3) Klebsiella infection: Subjective Patient seen in follow-up for left foot infection. More awake this morning. Generally uncomfortable. State left leg feels numb. No other new concerns. Remains afebrile. Blood cultures remain negative to date. Review of Systems Review of Systems: All systems reviewed & are unremarkable except as noted in HPI & below Physical Exam Constitutional: + ill appearing and + altered mental status; no acute distress Eyes: PERRL, conjunctivae normal, anicteric sclerae ENMT: external ear and nose normal, oropharynx normal Neck: trachea midline, no thyromegaly neck nontender Respiratory: normal respiratory effort, lungs clear to auscultation normal percussion; does not use accessory muscles Cardiovascular: Rate/Rhythm: regular rate and regular rhythm Heart Sounds: normal S1 and normal S2; no gallop, no murmur and no cardiac rub Vessels: normal peripheral pulses; no JVD Gastrointestinal (Abdomen): normal bowel sounds, soft, nontender, no hepatosplenomegaly Musculoskeletal: no cyanosis or clubbing, extremities motor strength 5/5 Spine: thoracic spine normal to inspection and lumbar spine normal to inspection; no cervical spinal tenderness Skin: normal turgor and + wound (Left heel eschar with surrounding erythema); no rashes Neurologic: moves all extremities, awake and + confused; no focal motor deficits and no meningeal signs Psychiatric: Orientation: alert, oriented to person and cooperative Lymphatic: no cervical or axillary lymphadenopathy no inguinal lymphadenopathy Results & Data Vital Signs (Past 12 Hours) Vital Signs Temp Pulse Resp BP Pulse Ox 02/04/19 13:26 36.6 C 85 18 135/83 93 02/04/19 06:59 36.6 C 80 16 128/71 91 02/04/19 04:00 37.2 C 85 16 100/60 92 Laboratory Results Short CBC 02/04/19 Range/Units 05:58 WBC 6.79 (4.8-10.8) K/uL Hgb 7.5 L (14.0-18.0) g/dL Hct 22.5 L (42-52) % Plt Count 177 (130-400) K/uL BMP 02/04/19 05:58 Sodium 139 Potassium 3.4 L Chloride 108 H Carbon Dioxide 26 BUN 10 Creatinine 0.81 Glucose 101 H Calcium 8.3 L Diagnostic Findings Microbiology 01/31/19 00:42 Urine,Indwelling Cath Urine Culture - Final Klebsiella pneumoniae 01/31/19 01:08 Blood Aerobic Blood Culture - Preliminary No growth in Aerobic bottle after 48 hours. 01/31/19 01:08 Blood Anaerobic Blood Culture - Final 01/31/19 00:39 Blood Aerobic Blood Culture - Preliminary No growth in Aerobic bottle after 48 hours. 01/31/19 00:39 Blood Anaerobic Blood Culture - Final PG Care Time/CCT Total # of Minutes Spent Total Time Spent with Patient: Total time spent is greater than 50% in coordination of care (as documented) at patient's floor/unit and/or counseling patient: (1) Osteomyelitis of foot Laterality: left Osteomyelitis type: unspecified type Qualified Code(s): M86.9 - Osteomyelitis, unspecified
[2019-02-04] MEDS ORDERED: POTASSIUM CHLORIDE 20 MEQ TABCR PO SCH (17:15)
[2019-02-04] MEDS ORDERED: FUROSEMIDE 20 MG in SYRINGE 0 ML IV SCH (17:15)
--- NOTE | 2019-02-04 20:52 | Hospitalist Progress Note ---
Date of Service February 04, 2019 Assessment & Plan (1) Metabolic encephalopathy: multiple d/c summaries indicate tendencies toward metabolic encephalopathy in face of infectious processes he has even had obtundation in face of infection does he also have baseline dementia or other cognitive d/o ?? multiple CT heads this year wnl treat underlying infections avoid sedatives sleeping poorly at night / -- increase seroquel to 25mg at HS (2) Severe sepsis: due to klebsiella UTI and left heel ulcer/osteomyelitis. sepsis improved. cont vanco/zosyn mainly to cover heel and osteomyelitis; consulted ID for their opinion on abx selection. will narrow once intra-op cultures return, etc. blood cultures negative since admission. (3) Acute UTI: catheter-associated/luna-associated/complicated UTI. 2nd to klebsiella. has grown klebsiella multiple times this year. needs MAINE to r/o chronic prostatitis. if present will need protracted course of PO abx for such (4+ weeks). cont current abx. (4) Unstageable pressure ulcer of heel: left foot appreciate wound care consultation, ID, ortho spoke with Dr Guillremo and Ildefonso Forman from orthopedics - he will need surgery for washout/debridement - scheduled for THIS SATURDAY checked arterial duplex left leg - PAD found - Dr Larose consulted for such; arteriogram TOMORROW. continue local wound care. continue IV abx (5) Osteomyelitis of foot: left - as above in "pressure ulcer..." ortho, ID, cardiology, wound care consults appreciated arteriogram tomorrow; ortho to perform debridement on Saturday cont IV abx (6) C. difficile colitis: history of such no active disease, however placed on probiotics in face of broad-spectrum abx vanco for prophylaxis? defer to ID (7) Lumbar stenosis with neurogenic claudication: ongoing, s/p multiple surgeries and I/D for epidural abscess in past norco prn pain, k-pad heat, and lidoderm patches adjust as needed (8) Coronary artery disease: elevated troponin was likely demand ischemia in setting of severe sepsis no chest pain no dyspnea (9) Ischemic cardiomyopathy: compensated echo 11/2018 showing EF 25-30% resume beta angy - toprol xl 25mg daily to start (was on 50mg at home) (10) Stage III chronic kidney disease: Cr stable BMP am (11) Uncontrolled type 2 diabetes mellitus with neurologic complication, with long-term current use of insulin: control excellent BSGs ac/hs and novolog sliding scale (12) Anemia in chronic illness: Hb 7.5 today baseline about 8.5 to 9 anemia of chronic disease iron studies c/w ACD in light of advanced CHF, CAD, etc - and with multiple procedures planned - transfuse 1 unit PRBCs today followed by IV lasix consent obtained from by phone CBC am (13) PAD (peripheral artery disease): left leg Dr Larose planning arteriogram TOMORROW (14) DVT prophylaxis: heparin SC updated by phone 02/02, 02/04 PT/OT evals Subjective patient slightly more oriented today - he knew he was in some sort of medical facility - that is improvement as yesterday he thought was in a community center. still not oriented to time/date/etc. during the day today he kept yelling out asking for various individuals (Bean, Tania, etc). while on rounds he denied any specific area of pain. he asked if I had spoken to his . denied any dyspnea. otherwise difficult to get ROS. Review of Systems Review of Systems: Unobtainable due to cognitive status Physical Exam Constitutional: + altered mental status; no acute distress ENMT: external ear and nose normal, oropharynx normal Respiratory: normal respiratory effort, lungs clear to auscultation Aus cultation: + diminished lung sounds (bases) Cardiovascular: Rate/Rhythm: regular rate and regular rhythm Heart Sounds: normal S1 and normal S2; no murmur Vessels: posterior tibial pulses present and dorsalis pedis pulses present; no JVD Extremities: + edema (b/l ankles/feet - 1+) Gastrointestinal (Abdomen): normal bowel sounds, soft, nontender, no hepatosplenomegaly Inspection/Auscultation: + abdomen distended (mild) Skin: left foot heel ulcer unchanged in appearance; not as much odor however Psychiatric: Orientation: alert (but agitated ), oriented to person and oriented to place; + not oriented to time Results & Data Vital Signs (Past 12 Hours) Vital Signs Temp Pulse Pulse Resp BP BP Pulse Ox 02/04/19 20:19 36.4 C L 82 18 122/74 95 02/04/19 19:19 37.0 C 78 18 131/84 97 02/04/19 19:05 36.6 C 89 19 137/81 97 02/04/19 18:48 36.6 C 86 18 138/76 95 02/04/19 18:34 37.0 C 78 16 128/79 97 02/04/19 18:12 37.1 C 78 16 138/75 96 02/04/19 16:00 83 02/04/19 15:43 36.7 C 74 20 139/78 96 02/04/19 13:26 36.6 C 85 18 135/83 93 Laboratory Results Laboratory Results - last 24 hr 02/04/19 02/04/19 02/04/19 05:58 05:58 05:58 WBC 6.79 RBC 2.51 L Hgb 7.5 L Hct 22.5 L MCV 89.6 MCH 29.9 MCHC 33.3 RDW Std Deviation 51.0 H RDW Coeff of Norbert 15.5 H Plt Count 177 MPV 8.7 Immature Gran % (Auto) 1.0 Neut % (Auto) 63.9 Lymph % (Auto) 19.1 [place] % (Auto) 11.6 Eos % (Auto) 3.8 Baso % (Auto) 0.6 Immature Gran # (Auto) 0.07 H Neut # (Auto) 4.33 Lymph # (Auto) 1.30 [place] # (Auto) 0.79 H Eos # (Auto) 0.26 Baso # (Auto) 0.04 RBC Morphology Unremarkable Sodium 139 Potassium 3.4 L Chloride 108 H Carbon Dioxide 26 Anion Gap 5.0 BUN 10 Creatinine 0.81 Est Cr Clr Drug Dosing 102.3 Est GFR ( Amer) 107.3 Est GFR (Non-Af Amer) 92.6 BUN/Creatinine Ratio 12.0 Glucose 101 H POC Glucose Calcium 8.3 L Blood Type A Positive Antibody Screen NEGATIVE Crossmatch See Detail 02/04/19 02/04/19 02/04/19 07:33 13:13 16:14 WBC RBC Hgb Hct MCV MCH MCHC RDW Std Deviation RDW Coeff of Norbert Plt Count MPV Immature Gran % (Auto) Neut % (Auto) Lymph % (Auto) [place] % (Auto) Eos % (Auto) Baso % (Auto) Immature Gran # (Auto) Neut # (Auto) Lymph # (Auto) [place] # (Auto) Eos # (Auto) Baso # (Auto) RBC Morphology Sodium Potassium Chloride Carbon Dioxide Anion Gap BUN Creatinine Est Cr Clr Drug Dosing Est GFR ( Amer) Est GFR (Non-Af Amer) BUN/Creatinine Ratio Glucose POC Glucose 119 H 113 H 132 H Calcium Blood Type Antibody Screen Crossmatch 02/04/19 20:20 WBC RBC Hgb Hct MCV MCH MCHC RDW Std Deviation RDW Coeff of Norbert Plt Count MPV Immature Gran % (Auto) Neut % (Auto) Lymph % (Auto) [place] % (Auto) Eos % (Auto) Baso % (Auto) Immature Gran # (Auto) Neut # (Auto) Lymph # (Auto) [place] # (Auto) Eos # (Auto) Baso # (Auto) RBC Morphology Sodium Potassium Chloride Carbon Dioxide Anion Gap BUN Creatinine Est Cr Clr Drug Dosing Est GFR ( Amer) Est GFR (Non-Af Amer) BUN/Creatinine Ratio Glucose POC Glucose 116 H Calcium Blood Type Antibody Screen Crossmatch PG Care Time/CCT Total # of Minutes Spent Total Time Spent with Patient: Total time spent is greater than 50% in coordination of care (as documented) at patient's floor/unit and/or counseling patient: (1) Unstageable pressure ulcer of heel Laterality: left Qualified Code(s): L89.620 - Pressure ulcer of left heel, unstageable (2) Coronary artery disease Associated angina: without angina Coronary Disease-Associated Artery/Lesion type: [place] artery [place] vs. transplanted heart: [place] heart Qualified Code(s): I25.10 - Atherosclerotic heart disease of [place] coronary artery without angina pectoris (3) Osteomyelitis of foot Laterality: left Osteomyelitis type: unspecified type Qualified Code(s): M86.9 - Osteomyelitis, unspecified
[2019-02-04] MEDS: QUETIAPINE FUMARATE 25 MG TABLET PO SCH (21:10)
[2019-02-05] MEDS ORDERED: VANCOMYCIN TROUGH ONE (05:30)
[2019-02-05] MEDS: PIPERACILLIN/TAZOBACTAM 4.5 GM in DEXTROSE 5% 100 ML IV SCH ×3 (05:34→21:35)
[2019-02-05] MEDS: VANCOMYCIN HCL 1,500 MG in SODIUM CHLORIDE 0.9% 500 ML IV SCH (05:34)
[2019-02-05 06:00] LABS: Hematocrit (blood only) 27.5 % (42-52); Hemoglobin 8.9 g/dL (14.0-18.0); Mean Corpuscular Hemoglobin 28.9 pg (25-34); Mean Corpuscular Hgb Conc 32.4 g/dL (32-36); Mean Corpuscular Volume 89.3 fL (80-100); Mean Platelet Volume 9.1 fL (7.4-10.4); Platelet Count 192 K/uL (130-400); RDW Coefficient of Variation 15.9 % (11.5-14.5); RDW Standard Deviation 51.5 fL (36.4-46.3); Red Blood Count 3.08 M/uL (4.7-6.1); White Blood Count 7.43 K/uL (4.8-10.8)
[2019-02-05 06:37] LABS: BUN Creatinine Ratio 9.6 (10-20); Calcium 8.4 mg/dl (8.5-10.1); Creatinine Clr Calc Pharmacy 96.3 ml/min; Est GFR (African American) 104.7; Est GFR (Non-African American) 90.4; Magnesium 1.7 mg/dl (1.8-2.4); Potassium 3.8 mmol/L (3.5-5.1)
[2019-02-05] MEDS: LACTOBACILLUS ACIDOPHILUS (FLORANEX) TAB PO SCH ×3 (08:23→16:54)
[2019-02-05] MEDS: METOPROLOL TARTRATE 25 MG TAB PO SCH ×2 (08:23→20:36)
[2019-02-05] MEDS: POTASSIUM CHLORIDE 20 MEQ TABCR PO SCH (08:24)
[2019-02-05] MEDS: FUROSEMIDE 20 MG TAB PO SCH (08:24)
[2019-02-05] MEDS: FERROUS SULFATE 325 MG TAB PO SCH ×2 (08:24→20:36)
[2019-02-05] MEDS: HEPARIN SOD 5,000 UNIT/0.5 ML VIAL SQ SCH ×2 (08:24→20:37)
[2019-02-05] MEDS: LIDOCAINE 5% 1 PATCH TD SCH (08:30)
[2019-02-05] MEDS: PANTOprazole 40 MG TAB PO SCH ×2 (08:30→20:36)
[2019-02-05] MEDS: INSULIN ASPART 100 UNITS/ML 3 ML PEN SC SCH ×4 (08:44→20:32)
--- NOTE | 2019-02-05 09:18 | Cardiology Progress Note ---
Date of Service February 05, 2019 Assessment & Plan (1) Osteomyelitis of foot: 2. Lower extremity peripheral arterial disease 3. Uncontrolled type 2 diabetes 4. Severe multivessel coronary artery disease, ischemic cardiomyopathy 5. Recent recurrent paraspinal abscesses post surgery 6. Anemia 7. Catheter associated UTI 8. Prior C. difficile Threatened left lower extremity with deep ulceration involving the heel with associated osteomyelitis. Arterial duplex suggestive of tibial/peroneal disease. Orthopedics planning debridement at some point. Proceed with LT LE angiogram today. Discussed procedure with today. Subjective Feeling well. No new complaints. Denies leg pain. No events overnight. Review of Systems Review of Systems: All systems reviewed & are unremarkable except as noted in HPI & below Physical Exam Constitutional: WD/WN, vitals as above + obese Eyes: + anicteric sclerae Respiratory: normal respiratory effort Cardiovascular: Rate/Rhythm: regular rate Heart Sounds: no murmur Vessels: + radial pulses abnormal Extremities: normal capillary refill and + edema Gastrointestinal (Abdomen): normal bowel sounds, soft, nontender, no hepatosplenomegaly Neurologic: awake; no focal motor deficits Psychiatric: Orientation: alert, oriented to person and oriented to place Results & Data Vital Signs (Past 12 Hours) Vital Signs Temp Pulse Pulse Resp BP Pulse Ox 02/05/19 07:42 98.1 F 75 18 142/77 H 96 02/05/19 07:20 71 02/05/19 04:00 97.7 F 72 18 136/75 99 02/04/19 22:59 98.6 F 72 18 131/78 95 PG Care Time/CCT Total # of Minutes Spent Total Time Spent with Patient: Total time spent is greater than 50% in coordination of care (as documented) at patient's floor/unit and/or counseling patient: (1) Osteomyelitis of foot Laterality: left Osteomyelitis type: unspecified type Qualified Code(s): M86.9 - Osteomyelitis, unspecified
[2019-02-05] MEDS: ONDANSETRON INJ 2 MG/ML 2 ML VIAL IV PRN (10:22)
[2019-02-05] MEDS ORDERED: NiCARDipine HCL INJ 2.5 MG/ML 10 ML AMP ONE (10:40)
[2019-02-05] MEDS ORDERED: NITROGLYCERIN 5 MG/ML 10 ML VIAL ONE (10:40)
[2019-02-05] MEDS ORDERED: LIDOCAINE HCL 1% 20 ML VIAL ONE (10:41)
[2019-02-05] MEDS ORDERED: NITROGLYCERIN/D5W 100MCG/ML 20ML SYR ONE (10:44)
--- NOTE | 2019-02-05 11:40 | Pre Anesthesia Assessment ---
Date of Service February 05, 2019 Pre Sedation Assessment Vital Signs Temp Pulse Pulse Resp BP BP Pulse Ox 02/05/19 10:40 98.2 F 72 18 117/70 94 02/05/19 07:42 98.1 F 75 18 142/77 H 96 02/05/19 07:20 71 02/05/19 04:00 97.7 F 72 18 136/75 99 02/04/19 22:59 98.6 F 72 18 131/78 95 02/04/19 21:07 98.6 F 80 18 136/82 98 02/04/19 20:19 97.5 F L 82 18 122/74 95 02/04/19 19:19 98.6 F 78 18 131/84 97 02/04/19 19:05 97.9 F 89 19 137/81 97 02/04/19 18:48 97.9 F 86 18 138/76 95 02/04/19 18:34 98.6 F 78 16 128/79 97 02/04/19 18:12 98.8 F 78 16 138/75 96 02/04/19 16:00 83 02/04/19 15:43 98.1 F 74 20 139/78 96 02/04/19 13:26 97.9 F 85 18 135/83 93 Cardiovascular RRR, no murmur, no edema Respiratory normal respiratory effort, lungs clear to auscultation Pre-Sedation Airway Assessment Smoking Status: Never smoker Hx Sleep Apnea: Yes Hx Difficult Intubation: No Short, Thick Neck: No Thyromental Distance: > or= 3.5 Finger Breadths Oral Cavity: + Dentures Mallampati Class: II ASA: ASA3 NPO Status Date of Last Intake of Fluids: 02/04/19 Time of Last Intake of Fluids: 20:00 Date of Last Intake of Solid Food: 02/04/19 Time of Last Intake of Solid Foods: 20:00 Procedure Planning Contraindications for Sedation: none Current Medications Reviewed: Yes Notes The planned sedation has been discussed with the patient. Informed Consent was obtained. I have identified the patient, determined the appropriateness of sedation and have assessed the patient immediately prior to the procedure. All medicine(s) and interventions are by my order.
--- NOTE | 2019-02-05 11:40 | History & Physical Bridge Note ---
Date of Service February 05, 2019 History & Physical Bridge Note I have examined the patient, reviewed the History & Physical and in the interval since the performance of the History & Physical I have noted the following changes of clinical significance: no changes noted
[2019-02-05] MEDS ORDERED: MIDAZOLAM HCL 1 MG/ML 2ML VIAL ONE (11:44)
[2019-02-05] MEDS ORDERED: fentaNYL citrate 100 MCG/2 ML VIAL ONE (11:44)
[2019-02-05] MEDS ORDERED: HEPARIN SOD (PORCINE) 1000 UNIT/ML 10 ML VIAL ONE (11:44)
--- NOTE | 2019-02-05 12:16 | Pharmacy Report ---
Pharmacy Abx Dose Short Note - Date of Service February 05, 2019 - Assessment & Plan Assessment 68 year old M receiving Vancomycin + Zosyn for treatment of klebsiella UTI and left heel ulcer/osteomyelitis. Day # 6 of antimicrobial therapy. Plan Vancomycin * Trough level of 25.7 mcg/mL is supratherapeutic * Continue dose of 1,500 mg IV but increase dosing interval from Q18hrs to Q24hrs to allow for additional clearance of vanco. * Goal trough level for bone/joint infection : 15 to 20 mcg/mL * Trough level ordered for: 02/08/19 Zosyn * No changes needed to dosing- continue 4.5gm IV Q8hrs for CrCl > 20 ml/min and severe infection Pharmacy will continue to follow and will adjust dose/frequency as necessary. Thank you.
--- NOTE | 2019-02-05 12:28 | Post Anesthesia Assessment ---
Date of Service February 05, 2019 Post Sedation Assessment Vital Signs Temp Pulse Pulse Resp BP BP Pulse Ox 02/05/19 12:20 73 18 128/67 100 02/05/19 12:15 71 18 117/72 100 02/05/19 12:10 73 16 133/73 99 02/05/19 12:05 74 16 121/82 99 02/05/19 12:00 77 20 128/88 99 02/05/19 11:55 76 14 129/81 99 02/05/19 10:40 98.2 F 72 18 117/70 94 02/05/19 07:42 98.1 F 75 18 142/77 H 96 02/05/19 07:20 71 02/05/19 04:00 97.7 F 72 18 136/75 99 02/04/19 22:59 98.6 F 72 18 131/78 95 02/04/19 21:07 98.6 F 80 18 136/82 98 02/04/19 20:19 97.5 F L 82 18 122/74 95 02/04/19 19:19 98.6 F 78 18 131/84 97 02/04/19 19:05 97.9 F 89 19 137/81 97 02/04/19 18:48 97.9 F 86 18 138/76 95 02/04/19 18:34 98.6 F 78 16 128/79 97 02/04/19 18:12 98.8 F 78 16 138/75 96 02/04/19 16:00 83 02/04/19 15:43 98.1 F 74 20 139/78 96 02/04/19 13:26 97.9 F 85 18 135/83 93 Recovery Score Activity: Moves 4 extremities Respiration: Deep Breath/Cough Circulation: +/-20% PreAnes Value Consciousness: Fully Awake Oxygen Saturation: O2 needed for >90% Discharge Sedation Level of Care: Fast Track Phase II Post Sedation Plan On clinical assessment, the patient appears to have tolerated the sedation without complications. Patient is recovering as anticipated. Patient will continue to be monitored by nursing and may be discharged when sedation discharge criteria are met per below protocol. Upon Completions of procedure and additional 15 minutes continue every 5 minute vital signs and the P.A.R. score; then discharge to a Phase I or Fast Track to Phase II per the following guidelines: * Discharge Patient to appropriate Phase II area if PAR is 8 or greater or return to pre- procedure baseline. The post - procedure orders will be as directed. * If PAR score is less than 8 or not return to pre-procedure baseline then patient will follow Phase I monitoring till PAR is reached for Phase II. The Phase I may be done in procedure room or may call to secure a Phase I area. * If naloxone or flumazenil are used for reversal, hold in Phase I for contin ued monitoring from when last reversal dose was given for a minimum of 60 minutes or longer pending the nurse and/or physician discretion of patient condition before discharge to Phase II. Please call the Sedation Physician to re-evaluate and complete post-note for discharge to Phase II area. Do NOT discharge from procedure sedation or Phase 1 until post- sedation evaluation note is complete by procedure /sedation MD Sedation Discharge Instructions to be given to the patient at discharge to home.
[2019-02-05] MEDS ORDERED: VISIPAQUE IV PRN (12:29)
--- NOTE | 2019-02-05 12:38 | Operative Report ---
Post Operative Report Pre & Post Diagnosis Operation Date: 02/05/19 11:00 Pre-Op Diagnosis: peripheral artery disease Post-Op Diagnosis: peripheral artery disease Operation Date: 02/06/19 12:45 <No data on this case meets the specified criteria> Procedure Operation Date: 02/05/19 11:00 Actual Procedures p Left Lower Extremity Angiogram, Mechanical Closure Right Femoral Artery, Moderate Concious Sedation 1200 to(Right) - Christiano Larose MD Operation Date: 02/06/19 12:45 <No data on this case meets the specified criteria> Surgeon Edd Larose MD Employment Case Manager [place] Estimated Blood Loss 10 Findings Consistent with Post-Op Diagnosis [place] significant stenotic or aneurysmal disease Left lower extremityiliacs, [employer], SFA/profunda, popliteal with luminal irregularities. BASHIR/PSS DELIVERY PROFESSIONAL with brisk runoff to the foot. Peroneal tapered to foot. Excellent blush of heel from PSS DELIVERY PROFESSIONAL. DPA and plantar arteries patent. Right lower extremity--iliacs, [employer] patent. Specimens none Drains moderate Complications none Disposition Disposition: PCU Description of Procedure Moderate sedation Local anesthesia with 1% lidocaine 5 Fr right [employer] access under ultrasound guidance Aortogram, up and over with RIM catheter With aid of a glide advantage wire, quick cross placed into left SFA Angiography revealed patent SFA/popliteal and tibial vessels to the foot with brisk flow to heel via PSS DELIVERY PROFESSIONAL and excellent blush at ulcer site Closure of right [employer] with Angio-Seal Contrast: 50 Summary: 1. Left lower extremitywidely patent inflow, SFA/popliteal arteries patent and three-vessel runoff to the foot. PSS DELIVERY PROFESSIONAL widely patent to the heel with excellent wound blush. Recommendations: Arterial supply appears adequate for wound healing and no revascularization necessary. I attest to the content of the Intraoperative Record and any orders documented therein. Any exceptions are noted below.
[2019-02-05] MEDS ORDERED: SODIUM CHLORIDE 0.9% 1000ML 1,000 ML IV SCH (12:45)
[2019-02-05] MEDS: MAGNESIUM SULFATE / D5W 1 GM/100 ML BAG IV SCH ×2 (13:01→14:04)
--- NOTE | 2019-02-05 15:19 | Orthopedic Progress Note ---
Date of Service February 05, 2019 Assessment & Plan (1) Osteomyelitis of foot: Necrotic left heel ulcer with osteo. Vascular study showing: Left lower extremityiliacs, CUPBOARD BUILDER, SFA/profunda, popliteal with luminal irregularities. BASHIR/CLIENT SUPPORT COORDINATOR with brisk runoff to the foot. Peroneal tapered to tiff t. Excellent blush of heel from CLIENT SUPPORT COORDINATOR. DPA and plantar arteries patent. Right lower extremity--iliacs, CUPBOARD BUILDER patent. Plan for irrigation debridement tomorrow of left heel ulcer by Dr. Guillermo. Subjective Patient currently lying in bed asleep. Easily awoken. Patient has no complaints at this time. We discussed that he would be taken to the operating room tomorrow for irrigation debridement of his left heel ulcer and debridement of osteomyelitis of the calcaneus. Patient understands and is anxious to get this done. Angiography performed by Dr. Larose earlier in the day. Physical Exam Physical Exam: Examination of the left foot shows a large necrotic left heel ulcer. OPTi foam dressing is partially on and after examination is reapplied. Mild purulent drainage noted. Foul odor noted. Mild erythema around the edges of the ulcer. Results & Data Vital Signs (Past 12 Hours) Vital Signs Temp Pulse Pulse Resp BP Pulse Ox 02/05/19 15:00 72 18 123/78 92 02/05/19 14:28 37.3 C 72 18 142/66 H 97 02/05/19 14:00 70 18 102/63 94 02/05/19 13:45 67 18 101/49 L 92 02/05/19 13:30 68 18 111/68 91 02/05/19 13:15 90 18 122/75 91 02/05/19 13:00 69 18 120/67 93 02/05/19 12:34 76 20 124/75 93 02/05/19 12:29 74 18 130/75 95 02/05/19 12:25 74 18 121/78 100 02/05/19 12:20 73 18 128/67 100 02/05/19 12:15 71 18 117/72 100 02/05/19 12:10 73 16 133/73 99 02/05/19 12:05 74 16 121/82 99 02/05/19 12:00 77 20 128/88 99 02/05/19 11:55 76 14 129/81 99 02/05/19 10:40 36.8 C 72 18 117/70 94 02/05/19 07:42 36.7 C 75 18 142/77 H 96 02/05/19 07:20 71 02/05/19 04:00 36.5 C 72 18 136/75 99 (1) Osteomyelitis of foot Laterality: left Osteomyelitis type: unspecified type Qualified Code(s): M86.9 - Osteomyelitis, unspecified
--- NOTE | 2019-02-05 17:46 | Anesthesiology Consultation ---
Date of Service February 05, 2019 Assessment & Plan (1) Encounter for pre-operative examination: Chart Review Chart Review: Acceptable Risk for Surgery (difficulties with prior surgeries trying to insert an ETT larger than 6.5 or 7) History Surgery Operation Date: 02/05/19 11:00 Proposed Procedures p Left Lower Extremity Angiogram - Christiano Larose MD Operation Date: 02/06/19 12:45 Proposed Procedures p Left Heel Ulcer Irrigation and Debridement - Chuckie Guillermo DO Height/Weight Height: 5 ft 8 in Weight: 98.3 kg Allergies Allergy/AdvReac Type Severity Reaction Status Date / Time No Known Drug Allergies Allergy Unknown Unverified 01/14/19 05:45 Medications Home Medications Medication Instructions Recorded Confirmed Last Taken acetaminophen [Tylenol] 650 mg PO Q8 PRN 12/01/18 01/14/19 12/01/18 01:15 aspirin [Aspir-81] 81 mg PO DAILY 12/01/18 01/14/19 01/12/19 cholecalciferol (vitamin D3) 2,000 unit PO DAILY 12/01/18 01/14/19 01/12/19 [Vitamin D3] clopidogrel [Plavix] 75 mg PO DAILY 12/01/18 01/14/19 01/12/19 divalproex 250 mg PO Q12 12/01/18 01/14/19 12/01/18 12:30 finasteride 5 mg PO DAILY 12/01/18 01/14/19 01/12/19 insulin lispro [Humalog U-100 1 sliding scale dose SUBCUT 12/01/18 01/14/19 Unknown Insulin] USEASDIRECTD metoprolol succinate [Toprol XL] 50 mg PO DAILY 12/01/18 01/14/19 12/01/18 atorvastatin 40 mg PO QAM #1 tab 12/16/18 01/14/19 01/12/19 gabapentin 100 mg PO BID #2 cap 12/16/18 01/14/19 01/12/19 lidocaine 2 patch TRANSDERMAL DIRECTED 01/14/19 01/14/19 Unknown tamsulosin [Flomax] 0.4 mg PO HS 01/14/19 01/14/19 Unknown cephalexin 500 mg PO BID #14 cap 01/21/19 Unknown ferrous sulfate 325 mg PO BIDM #60 tab 01/21/19 Unknown furosemide 20 mg PO QAM #30 tab 01/21/19 Unknown lorazepam 0.5 mg PO Q6H PRN #12 tab 01/21/19 Unknown losartan 25 mg PO QAM #30 tab 01/21/19 Unknown nystatin 1 applic EXT BID #15 g 01/21/19 Unknown pantoprazole 40 mg PO BID #60 tab 01/21/19 Unknown tramadol 50 mg PO Q4H PRN #12 tab 01/21/19 Unknown Active Medications Generic Name Dose Route Start Last Admin Trade Name Freq PRN Reason Stop Dose Admin Hydrocodone Bitart/Acetaminophen 1 tab 02/02/19 10:47 02/04/19 21:15 [place] 5/325 PO 02/16/19 10:46 1 tab Q4H PRN Administration Pain Ferrous Sulfate 325 mg 02/03/19 10:00 02/05/19 08:24 Feosol PO 03/05/19 09:59 325 mg BID KAYLYNN Administration Furosemide 20 mg 02/03/19 12:30 02/05/19 08:24 Lasix PO 03/05/19 12:29 20 mg QAM KAYLYNN Administration Heparin Sodium (Beef Lung) 5 ml 01/31/19 09:20 02/04/19 16:32 Heparin Sod 10 Unit/Ml Flush FLUSH 03/02/19 09:19 5 ml PRN PRN Administration Flush Heparin Sodium (Porcine) 5,000 units 01/31/19 09:00 02/05/19 08:24 Heparin Sodium (Porcine) SQ 03/02/19 08:59 Not Given Q12 KAYLYNN Hydromorphone HCl 0.25 mg 02/03/19 12:35 02/04/19 23:45 Dilaudid IV 02/17/19 12:34 0.25 mg Q4H PRN Administration Pain Piperacillin Sod/Tazobactam 120 mls @ 30 mls/hr 01/31/19 10:00 02/05/19 14:14 Sod 4.5 gm/ Dextrose IV 02/10/19 09:59 30 mls/hr Q8H KAYLYNN Administration Protocol Insulin Aspart 0 units 02/03/19 16:30 02/05/19 16:53 Novolog Flexpen SC 03/05/19 16:29 3 units ACHS KAYLYNN Administration Iodixanol 50 ml 02/05/19 12:29 02/05/19 12:10 Visipaque IV 02/09/19 12:28 50 ml UD PRN Administration Radiology Use Ioversol 93 ml 02/02/19 14:58 02/02/19 14:59 Optiray 320 100ml IV 02/06/19 14:57 93 ml ONCE PRN Administration Interaction Checking Lactobacillus Acidophilus 4 tab 02/03/19 08:00 02/05/19 16:54 Floranex PO 03/05/19 07:59 4 tab TIDM KAYLYNN Administration Lidocaine 2 patch 02/02/19 11:00 02/05/19 08:30 Lidoderm 5% TD 03/04/19 10:59 Not Given QAM KAYLYNN Metoprolol Tartrate 25 mg 02/05/19 09:00 02/05/19 08:23 Lopressor PO 03/07/19 08:59 25 mg BID KAYLYNN Administration Miscellaneous 1 ea 02/02/19 21:00 02/04/19 21:12 Remove Lidoderm Patch N/A 03/04/19 20:59 1 ea DAILY@2100 KAYLYNN Administration Ondansetron HCl 4 mg 02/05/19 10:12 02/05/19 10:22 Zofran IV 03/07/19 10:11 4 mg Q6H PRN Administration Nausea Pantoprazole Sodium 40 mg 02/03/19 10:00 02/05/19 08:30 Protonix PO 03/05/19 09:59 40 mg BID KAYLYNN Administration Potassium Chloride 40 meq 02/04/19 11:45 02/05/19 08:24 Klor-Con M20 PO 03/06/19 11:44 40 meq QAM KAYLYNN Administration Quetiapine Fumarate 25 mg 02/04/19 21:00 02/04/19 21:10 Seroquel PO 03/06/19 20:59 25 mg HS KAYLYNN Administration NPO Date Last Intake of Fluids: 02/04/19 Time Last Intake of Fluids: 18:00 Date Last Intake of Solids: 02/04/19 Time Last Intake of Solids: 18:00 Past Medical History Medical History Vitamin D deficiency (Acute) Thyroid disorder (Acute) Spinal stenosis (Acute) Restless legs syndrome (Acute) Diverticulosis (Acute) Disc degeneration, lumbar (Acute) Diabetic retinopathy (Acute) Diabetic peripheral neuropathy (Acute) Depression (Acute) Carotid artery stenosis (Acute) Anxiety (Acute) Ischemic cardiomyopathy EF WNL 11/2017 EF this year consistantly 25-30% Full dentures (Acute) HTN (hypertension) (Acute) Anemia CAD (coronary artery disease) CABG 2002 or so, severe multivessel disease - NC around time of paraspinal abscess earlier this year - medical mgmt of his CAD thus far History of femoral angiogram adequate blood flow to foot Abscess in epidural space of lumbar spine CHF (congestive heart failure) [employer] 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 Admitted [facility] 10/18/11 for onset of incapacitating cervical myelopathy. Spinal tap showed [employer] Lyme disease, MRI showed severe spinal cord compression at C3-4 with myelomalacia and intramedullary mass. Pt had c-spine surgery, subsequent prolonged hospital admission, complicated post-op course. Chronic kidney disease, stage III (moderate) Chronic sinusitis Dysphagia History of non-ST elevation myocardial infarction (NSTEMI) ICD (implantable cardioverter-defibrillator) in place Sudden cardiac Post-op 2011 [facility]. Now has ICD. Past Family History Family History Mother , age 68 of COPD and respiratory issues COPD (chronic obstructive pulmonary disease) Father , in his 40s of an NC Myocardial infarction Other Diabetes Hypertension No pertinent family history Past Surgical History Surgical History History of esophagogastroduodenoscopy (EGD) History of colonoscopy History of cardiac cath 2011 AT [facility] - UNSURE IF HE HAS STENTS. History of tracheostomy Hx of transurethral resection of prostate History of cataract extraction with lens replacement Hx of tonsillectomy (Acute) H/O cervical spine surgery (Acute) ACDI C3-4, C7 corpectomy, removal of C7 intramedullary mass. History of lumbar spinal fusion (Acute) S/P triple vessel bypass (Acute) [facility] 2002 History of incision and drainage Lumbar spine on 08/11; complicated by difficult intubation with only #6.5 ETT able to be placed and patient kept intubated post op History of lumbar surgery 09/10/18 Glidescope 3 okay visualization but difficulty passing ETT, unable to pass 8.0, able to pass 7.0 with some difficulty Social History Smoking Status: Never smoker tobacco type: smokeless tobacco Hx Alcohol Use: No Alcohol type: beer alcohol intake frequency: holidays/special occasions only Hx Substance Use: No substance use type: does not use Physical Exam Vital Signs Last Vital Signs Temp 37.7 C H 02/05/19 15:46 Pulse 73 02/05/19 15:46 Resp 22 02/05/19 15:46 BP 107/72 02/05/19 15:46 Pulse Ox 94 02/05/19 15:46 Testing Laboratory Results 02/05/19 05:30 02/05/19 05:30 PT 11.3 Seconds (9.0-12.0) 02/02/19 07:42 INR 1.1 (0.9-1.1) 02/02/19 07:42 APTT 39.0 Seconds (21.0-31.0) H 02/02/19 07:42 Urine Color Yellow 01/31/19 00:42 Urine Appearance Turbid (Clear) A 01/31/19 00:42 Urine pH 5.5 (4.5-7.5) 01/31/19 00:42 Ur Specific [place] 1.016 (1.000-1.030) 01/31/19 00:42 Urine Protein Trace (Negative) H 01/31/19 00:42 Urine Glucose (UA) Negative (Negative) 01/31/19 00:42 Urine Ketones Negative (Negative) 01/31/19 00:42 Urine Nitrite Negative (Negative) 01/31/19 00:42 Ur Leukocyte Esterase 3+ (Negative) H 01/31/19 00:42 Urine WBC (Auto) >30 /hpf (0-5) H 01/31/19 00:42 Urine RBC (Auto) 5-10 /hpf (0-4) H 01/31/19 00:42 U Hyaline Cast (Auto) 1-5 /lpf (0-5) 01/31/19 00:42 U Epithel Cells (Auto) 5-10 /lpf (0-5) H 01/31/19 00:42 Urine Bacteria (Auto) 4+ (Negative) H 01/31/19 00:42 Blood Type A Positive 02/04/19 05:58 Antibody Screen NEGATIVE 02/04/19 05:58 01/31/19 01:08 Aerobic Blood Culture - Final Blood No growth in Aerobic bottle after 5 days. Anaerobic Blood Culture - Final 01/31/19 00:39 Aerobic Blood Culture - Final Blood No growth in Aerobic bottle after 5 days. Anaerobic Blood Culture - Final 01/31/19 00:42 Urine Culture - Final Urine,Indwelling Cath Klebsiella pneumoniae 02/05/19 02/05/19 02/05/19 15:53 13:19 07:26 POC Glucose 135 H 115 H 104 H Electrocardiogram Date: 01/14/19 Findings: + NSR @ (88) and + RBBB Chest X-Ray Date: 01/31/19 Findings: + pulmonary vascular congestion (possible mild pulmonary edema) Echocardiogram Date: 12/02/18 EF: 25-30% RWMA: + hypokinetic (left ventricle) Valvular Disease: + no significant valvular disease
--- NOTE | 2019-02-05 18:34 | Infectious Disease Progress Nt ---
Date of Service February 05, 2019 Assessment & Plan (1) Osteomyelitis of foot: 68-year-old male admitted with sepsis with evidence of osteomyelitis of the left heel in the setting of large ulcer, as well as Klebsiella urinary tract infection. Current treatment with vancomycin and Zosyn appropriate. Await surgical debridement hopefully tomorrow. Will follow. (2) Acute UTI: (3) Klebsiella infection: Subjective Patient seen in follow-up for left foot infection. Offers no new complaints today. Vascular surgery and orthopedic surgery follow-up noted. Remains afebrile. Review of Systems Review of Systems: All systems reviewed & are unremarkable except as noted in HPI & below Physical Exam Constitutional: + ill appearing and + altered mental status; no acute distress Eyes: PERRL, conjunctivae normal, anicteric sclerae ENMT: external ear and nose normal, oropharynx normal Neck: trachea midline, no thyromegaly neck nontender Respiratory: normal respiratory effort, lungs clear to auscultation normal percussion; does not use accessory muscles Cardiovascular: Rate/Rhythm: regular rate and regular rhythm Heart Sounds: normal S1 and normal S2; no gallop, no murmur and no cardiac rub Vessels: normal peripheral pulses; no JVD Gastrointestinal (Abdomen): normal bowel sounds, soft, nontender, no hepatosplenomegaly Musculoskeletal: no cyanosis or clubbing, extremities motor strength 5/5 Spine: thoracic spine normal to inspection and lumbar spine normal to inspection; no cervical spinal tenderness Skin: normal turgor and + wound (Left heel eschar with surrounding erythema); no rashes Neurologic: moves all extremities, awake and + confused; no focal motor deficits and no meningeal signs Psychiatric: Orientation: alert, oriented to person and cooperative Lymphatic: no cervical or axillary lymphadenopathy no inguinal lymphadenopathy Results & Data Vital Signs (Past 12 Hours) Vital Signs Temp Pulse Pulse Resp BP Pulse Ox 02/05/19 15:46 37.7 C H 73 22 107/72 94 02/05/19 15:00 72 18 123/78 92 02/05/19 14:28 37.3 C 72 18 142/66 H 97 02/05/19 14:00 70 18 102/63 94 02/05/19 13:45 67 18 101/49 L 92 02/05/19 13:30 68 18 111/68 91 02/05/19 13:15 90 18 122/75 91 02/05/19 13:00 69 18 120/67 93 02/05/19 12:34 76 20 124/75 93 02/05/19 12:29 74 18 130/75 95 02/05/19 12:25 74 18 121/78 100 02/05/19 12:20 73 18 128/67 100 02/05/19 12:15 71 18 117/72 100 02/05/19 12:10 73 16 133/73 99 02/05/19 12:05 74 16 121/82 99 02/05/19 12:00 77 20 128/88 99 02/05/19 11:55 76 14 129/81 99 02/05/19 10:40 36.8 C 72 18 117/70 94 02/05/19 07:42 36.7 C 75 18 142/77 H 96 02/05/19 07:20 71 Laboratory Results Short CBC 02/05/19 Range/Units 05:30 WBC 7.43 (4.8-10.8) K/uL Hgb 8.9 L (14.0-18.0) g/dL Hct 27.5 L (42-52) % Plt Count 192 (130-400) K/uL BMP 02/05/19 05:30 Sodium 139 Potassium 3.8 Chloride 107 Carbon Dioxide 27 BUN 8 Creatinine 0.86 Glucose 91 Calcium 8.4 L Diagnostic Findings Microbiology 01/31/19 01:08 Blood Aerobic Blood Culture - Final No growth in Aerobic bottle after 5 days. 01/31/19 01:08 Blood Anaerobic Blood Culture - Final 01/31/19 00:39 Blood Aerobic Blood Culture - Final No growth in Aerobic bottle after 5 days. 01/31/19 00:39 Blood Anaerobic Blood Culture - Final 01/31/19 00:42 Urine,Indwelling Cath Urine Culture - Final Klebsiella pneumoniae PG Care Time/CCT Total # of Minutes Spent Total Time Spent with Patient: Total time spent is greater than 50% in coord ination of care (as documented) at patient's floor/unit and/or counseling patient: (1) Osteomyelitis of foot Laterality: left Osteomyelitis type: unspecified type Qualified Code(s): M86.9 - Osteomyelitis, unspecified
[2019-02-05] MEDS: HYDROCODONE/ACETAMOPHEN 5/325MG TAB PO PRN (18:59)
[2019-02-05] MEDS: QUETIAPINE FUMARATE 25 MG TABLET PO SCH (20:35)
--- NOTE | 2019-02-05 20:40 | Hospitalist Progress Note ---
Date of Service February 05, 2019 Assessment & Plan (1) Metabolic encephalopathy: multiple d/c summaries indicate tendencies toward metabolic encephalopathy in face of infectious processes he has even had obtundation in face of infection does he also have baseline dementia or other cognitive d/o ?? multiple CT heads this year wnl with scheduled seroquel at HS, treating infections, etc - mental status finally improved cont seroquel HS (2) Severe sepsis: due to klebsiella UTI and left heel ulcer/osteomyelitis. sepsis improved. cont vanco/zosyn mainly to cover heel and osteomyelitis; consulted ID for their opinion on abx selection. will narrow once intra-op cultures return, etc. blood cultures negative since admission. (3) Acute UTI: catheter-associated/luna-associated/complicated UTI. 2nd to klebsiella. has grown klebsiella multiple times this year. needs MAINE to r/o chronic prostatitis. if present will need protracted course of PO abx for such (4+ weeks). cont current abx. (4) Unstageable pressure ulcer of heel: left foot appreciate wound care consultation, ID, ortho s/p arteriogram today by Dr Larose - adequate arterial circulation; no intervention done to OR tomorrow with Dr Guillermo for debridement of left heel NPO after MN tonight (5) Osteomyelitis of foot: left - as above in "pressure ulcer..." ortho, ID, cardiology, wound care consults appreciated cont IV abx (6) C. difficile colitis: history of such no active disease, however placed on probiotics in face of broad-spectrum abx vanco for prophylaxis? defer to ID (7) Lumbar stenosis with neurogenic claudication: ongoing, s/p multiple surgeries and I/D for epidural abscess in past norco prn pain, k-pad heat, and lidoderm patches adjust as needed (8) Coronary artery disease: elevated troponin was likely demand ischemia in setting of severe sepsis (9) Ischemic cardiomyopathy: compensated echo 11/2018 showing EF 25-30% cont metoprolol 25 BID convert to succinate before d/c (10) Stage III chronic kidney disease: Cr stable BMP am (11) Uncontrolled type 2 diabetes mellitus with neurologic complication, with long-term current use of insulin: control excellent BSGs ac/hs and novolog sliding scale (12) Anemia in chronic illness: s/p 1 unit PRBCs yesterday tolerated well H/H stable today stool heme negative H/H again in am for stability (13) PAD (peripheral artery disease): left leg s/p arteriogram by Dr Larose today as above (14) DVT prophylaxis: heparin SC updated by phone 02/02, 02/04 PT/OT evals progressing albeit slowly Subjective saw patient post-arteriogram. he was resting comfortably. he knew he was at the hospital and correctly stated it was 2018. also knew it was . denied pain in any location. denied dyspnea. denied chest pain. tele stable overnight. Review of Systems Constitutional: no fever, no chills, no fatigue and no anorexia Respiratory: no cough and no dyspnea Cardiovascular: no chest pain Gastrointestinal: no abdominal pain, no nausea and no vomiting Physical Exam Constitutional: no acute distress and no altered mental status ENMT: external ear and nose normal, oropharynx normal Respiratory: normal respiratory effort, lungs clear to auscultation Auscultation: + diminished lung sounds (bases) Cardiovascular: Rate/Rhythm: regular rate and regular rhythm Heart Sounds: normal S1 and normal S2; no murmur Vessels: posterior tibial pulses present and dorsalis pedis pulses present; no JVD Extremities: no edema Gastrointestinal (Abdomen): normal bowel sounds, soft, nontender, no hepatosplenomegaly Skin: left heel ulcer - unchanged; still w/ foul odor Psychiatric: Orientation: alert and oriented x 3 much more calm today Results & Data Vital Signs (Past 12 Hours) Vital Signs Temp Pulse Pulse Resp BP Pulse Ox 02/05/19 19:11 36.8 C 73 19 114/69 95 02/05/19 16:00 68 02/05/19 15:46 37.7 C H 73 22 107/72 94 02/05/19 15:00 72 18 123/78 92 02/05/19 14:28 37.3 C 72 18 142/66 H 97 02/05/19 14:00 70 18 102/63 94 02/05/19 13:45 67 18 101/49 L 92 02/05/19 13:30 68 18 111/68 91 02/05/19 13:15 90 18 122/75 91 02/05/19 13:00 69 18 120/67 93 02/05/19 12:34 76 20 124/75 93 02/05/19 12:29 74 18 130/75 95 02/05/19 12:25 74 18 121/78 100 02/05/19 12:20 73 18 128/67 100 02/05/19 12:15 71 18 117/72 100 02/05/19 12:10 73 16 133/73 99 02/05/19 12:05 74 16 121/82 99 02/05/19 12:00 77 20 128/88 99 02/05/19 11:55 76 14 129/81 99 02/05/19 10:40 36.8 C 72 18 117/70 94 Laboratory Results Laboratory Results - last 24 hr 02/04/19 02/05/19 02/05/19 05:58 05:30 05:30 WBC 7.43 RBC 3.08 L Hgb 8.9 L Hct 27.5 L MCV 89.3 MCH 28.9 MCHC 32.4 RDW Std Deviation 51.5 H RDW Coeff of [place]bert 15.9 H Plt Count 192 MPV 9.1 Sodium Potassium Chloride Carbon Dioxide Anion Gap BUN Creatinine Est Cr Clr Drug Dosing Est GFR ( Amer) Est GFR (Non-Af Amer) BUN/Creatinine Ratio Glucose POC Glucose Calcium Magnesium Stool Occult Bld Scrn Vancomycin Trough 25.7 Blood Type A Positive Antibody Screen NEGATIVE Crossmatch See Detail 02/05/19 02/05/19 02/05/19 05:30 07:26 13:19 WBC RBC Hgb Hct MCV MCH MCHC RDW Std Deviation RDW Coeff of [place]bert Plt Count MPV Sodium 139 Potassium 3.8 Chloride 107 Carbon Dioxide 27 Anion Gap 5.0 BUN 8 Creatinine 0.86 Est Cr Clr Drug Dosing 96.3 Est GFR ( Amer) 104.7 Est GFR (Non-Af Amer) 90.4 BUN/Creatinine Ratio 9.6 L Glucose 91 POC Glucose 104 H 115 H Calcium 8.4 L Magnesium 1.7 L Stool Occult Bld Scrn Vancomycin Trough Blood Type Antibody Screen Crossmatch 02/05/19 02/05/19 02/05/19 15:53 18:00 20:22 WBC RBC Hgb Hct MCV MCH MCHC RDW Std Deviation RDW Coeff of [place]bert Plt Count MPV Sodium Potassium Chloride Carbon Dioxide Anion Gap BUN Creatinine Est Cr Clr Drug Dosing Est GFR ( Amer) Est GFR (Non-Af Amer) BUN/Creatinine Ratio Glucose POC Glucose 135 H 191 H Calcium Magnesium Stool Occult Bld Scrn Negative Vancomycin Trough Blood Type Antibody Screen Crossmatch PG Care Time/CCT Total # of Minutes Spent Total Time Spent with Patient: Total time spent is greater than 50% in coordination of care (as documented) at patient's floor/unit and/or counseling patient: (1) Unstageable pressure ulcer of heel Laterality: left Qualified Code(s): L89.620 - Pressure ulcer of left heel, unstageable (2) Coronary artery disease Associated angina: without angina Coronary Disease-Associated Artery/Lesion type: [place] artery [place] vs. transplanted heart: [place] heart Qualified Code(s): I25.10 - Atherosclerotic heart disease of [place] coronary artery without angina pectoris (3) Osteomyelitis of foot Laterality: left Osteomyelitis type: unspecified type Qualified Code(s): M86.9 - Osteomyelitis, unspecified
[2019-02-06] MEDS: PIPERACILLIN/TAZOBACTAM 4.5 GM in DEXTROSE 5% 100 ML IV SCH ×3 (05:37→22:12)
[2019-02-06] MEDS: VANCOMYCIN HCL 1,500 MG in SODIUM CHLORIDE 0.9% 500 ML IV SCH (05:37)
[2019-02-06] MEDS ORDERED: DEXAMETHASONE SOD INJ 4 MG/ML VIAL ONE (08:12)
[2019-02-06] MEDS ORDERED: fentaNYL citrate 100 MCG/2 ML VIAL ONE (08:12)
[2019-02-06] MEDS ORDERED: PROPOFOL IV EMULSION 10 MG/ML 20 ML VIAL IV ONE (08:12)
[2019-02-06] MEDS ORDERED: ONDANSETRON INJ 2 MG/ML 2 ML VIAL ONE (08:12)
[2019-02-06] MEDS ORDERED: LIDOCAINE HCL 2% 2 ML VIAL/AMP(20MG/ML) INFIL ONE (08:12)
[2019-02-06] MEDS ORDERED: MIDAZOLAM HCL 1 MG/ML 2ML VIAL ONE (08:13)
[2019-02-06] MEDS ORDERED: BACITRACIN INJ 50,000 UNIT VIAL ONE (08:13)
[2019-02-06] MEDS ORDERED: BUPIVACAINE 0.5 % 5 MG/1 ML MPF 30ML VIAL ONE (08:13)
[2019-02-06] MEDS ORDERED: KETAMINE HCL INJ 50 MG/ML 10 ML VIAL ONE (08:18)
[2019-02-06] MEDS ORDERED: fentaNYL citrate 100 MCG/2 ML VIAL IV PRN (08:21)
[2019-02-06] MEDS ORDERED: ATROPINE SULFATE 0.1 MG/ML 10ML SYR IV PRN (08:21)
[2019-02-06] MEDS ORDERED: ePHEDrine sulfate 50 MG/ML AMP IV PRN (08:21)
[2019-02-06] MEDS ORDERED: ONDANSETRON INJ 2 MG/ML 2 ML VIAL IV PRN (08:21)
--- NOTE | 2019-02-06 08:28 | History & Physical Bridge Note ---
Date of Service February 06, 2019 History & Physical Bridge Note I have examined the patient, reviewed the History & Physical and in the interval since the performance of the History & Physical I have noted the following changes of clinical significance:Will require Irrigation and debridement of deep heel ulcer left heel including bone with implantation of antibiotic Stimulan beads.
--- NOTE | 2019-02-06 10:16 | Post Operative Brief Note ---
Immediate Post Op Note v1 Date of Surgery February 06, 2019 Pre & Post Diagnosis Operation Date: 02/05/19 11:00 Pre-Op Diagnosis: peripheral artery disease Post-Op Diagnosis: peripheral artery disease Operation Date: 02/06/19 12:45 <No data on this case meets the specified criteria> Operation Date: 02/06/19 12:45 Pre-Op Diagnosis: Left calcaneal osteomyelitis, neuropathic ulcer left heel 8 cm x 4 cm x 1 cm, peripheral vascular disease Post-Op Diagnosis: Left calcaneal osteomyelitis, neuropathic ulcer left heel 8 cm x 4 cm x 1 cm, peripheral vascular disease Procedure Operation Date: 02/05/19 11:00 Actual Procedures p Left Lower Extremity Angiogram, Mechanical Closure Right Femoral Artery, Moderate Concious Sedation 1200 to 1234(Right) - Christiano Larose MD Operation Date: 02/06/19 12:45 <No data on this case meets the specified criteria> Operation Date: 02/06/19 12:45 Actual Procedures p Left Heel irrigation debridement 8 cm x 4 cm x 1 cm necrotic neuropathic ulcer, debridement left heel fascia, debridement subcutaneous fat, debridement left heel pad, debridement and saucerization calcaneal bone, implantation Stimulan antibiotic beads 5 cc (Left) - Chuckie Guillermo DO Surgeon Chuckie Guillermo DO Hair Blender Ildefonso Murillo PA-C Estimated Blood Loss 2 Findings Consistent with Post-Op Diagnosis Specimens Aerobic anaerobic Gram stain left calcaneus, left calcaneal bone for pathologic specimen Drains Luna Catheter (patient arrived to OR with luna) Anesthesia Type MAC Regional Complications none Disposition Accompanied Patient To Recovery: No Disposition: Recovery Room Overlapping Procedure I was present for: the critical portions of procedure. I was immediately available: during the entire case.
[2019-02-06 10:57] LABS: Hematocrit (blood only) 27.1 % (42-52); Hemoglobin 8.9 g/dL (14.0-18.0)
[2019-02-06 11:21] LABS: BUN Creatinine Ratio 8.8 (10-20); Calcium 7.9 mg/dl (8.5-10.1); Est GFR (African American) 109.6; Est GFR (Non-African American) 94.6; Magnesium 1.8 mg/dl (1.8-2.4); Potassium 3.9 mmol/L (3.5-5.1)
--- NOTE | 2019-02-06 11:23 | Anesthesiology Progress Note ---
Date of Service February 06, 2019 Anesthesia Post Procedure Vital Signs Vital Signs: Temp Pulse Pulse Pulse Resp BP Pulse Ox 02/06/19 11:10 97.9 F 68 19 114/70 100 02/06/19 11:00 66 18 130/68 99 02/06/19 10:50 97.2 F L 69 17 126/70 88 L 02/06/19 10:40 68 20 124/62 95 02/06/19 10:30 76 18 129/72 100 02/06/19 10:20 73 16 135/79 100 02/06/19 10:10 97.2 F L 66 15 135/70 99 02/06/19 08:23 98.4 F 76 20 129/73 95 02/06/19 07:02 97.9 F 68 24 133/77 96 02/06/19 04:02 97.3 F L 63 22 123/70 96 02/06/19 00:00 65 02/05/19 23:36 98.1 F 58 L 22 108/67 96 02/05/19 19:11 98.2 F 73 19 114/69 95 02/05/19 16:00 68 02/05/19 15:46 99.9 F H 73 22 107/72 94 02/05/19 15:00 72 18 123/78 92 02/05/19 14:28 99.1 F 72 18 142/66 H 97 02/05/19 14:00 70 18 102/63 94 02/05/19 13:45 67 18 101/49 L 92 02/05/19 13:30 68 18 111/68 91 02/05/19 13:15 90 18 122/75 91 02/05/19 13:00 69 18 120/67 93 02/05/19 12:34 76 20 124/75 93 02/05/19 12:29 74 18 130/75 95 02/05/19 12:25 74 18 121/78 100 02/05/19 12:20 73 18 128/67 100 02/05/19 12:15 71 18 117/72 100 02/05/19 12:10 73 16 133/73 99 02/05/19 12:05 74 16 121/82 99 02/05/19 12:00 77 20 128/88 99 02/05/19 11:55 76 14 129/81 99 Pain Intensity Lower Back: Pain Intensity: 8 Transfer of Care Handoff Completed per policy Notes Mental Status: alert / awake / arousable and participated in evaluation Patient Amnestic to Procedure: Yes Nausea / Vomiting: adequately controlled Pain: adequately controlled Airway Patency, RR, SpO2: stable & adequate BP & HR: stable & adequate Hydration State: stable & adequate Anesthetic Complications: no major complications apparent and Pt Satisfied with anesthetic care
[2019-02-06] MEDS: POTASSIUM CHLORIDE 20 MEQ TABCR PO SCH (11:46)
[2019-02-06] MEDS: LACTOBACILLUS ACIDOPHILUS (FLORANEX) TAB PO SCH ×3 (11:46→17:06)
[2019-02-06] MEDS: FERROUS SULFATE 325 MG TAB PO SCH ×2 (11:47→21:01)
[2019-02-06] MEDS: METOPROLOL TARTRATE 25 MG TAB PO SCH ×2 (11:47→21:02)
[2019-02-06] MEDS: FUROSEMIDE 20 MG TAB PO SCH (11:47)
[2019-02-06] MEDS: PANTOprazole 40 MG TAB PO SCH ×2 (11:47→21:01)
[2019-02-06] MEDS: HEPARIN SOD 5,000 UNIT/0.5 ML VIAL SQ SCH ×2 (11:47→21:02)
[2019-02-06] MEDS: INSULIN ASPART 100 UNITS/ML 3 ML PEN SC SCH ×4 (11:47→21:03)
[2019-02-06] MEDS: LIDOCAINE 5% 1 PATCH TD SCH (11:48)
[2019-02-06] MEDS ORDERED: NALOXONE HCL 0.4 MG/1 ML VIAL/CARP IV PRN (12:19)
[2019-02-06] MEDS: HYDROmorphone INJ 0.5 MG/0.5 ML SYR IV PRN (13:30)
--- NOTE | 2019-02-06 17:16 | Ultrasound Report ---
US venous doppler UE RT CLINICAL HISTORY: 68 years-old Male presenting with Edema, PICC line - eval for DVT. TECHNIQUE: Real-time grayscale and color and spectral Doppler ultrasound imaging of the veins of the right upper extremity was performed. Compression and augmentation were also utilized. COMPARISON: None. FINDINGS: RIGHT: Internal jugular vein: Patent. Subclavian vein: The PICC line is partially visualized within the subclavian vein, which is patent. Axillary vein: PICC line visualized within the patent axillary vein. Brachial vein: Patent. Mid brachial vein not visualized due to bandaging. Basilic vein (superficial): Patent. Mid to upper basilic vein not visualized due to imaging. Cephalic vein (superficial): Patent. Radial vein: Patent. Ulnar vein: Patent. Other: Subcutaneous edema in the forearm. IMPRESSION: 1. No evidence of deep venous thrombosis. 2. PICC line in place. 3. Nonspecific subcutaneous edema in the forearm. Electronically signed by: Benson Junior M.D. 02/06/2019 5:14 PM
--- NOTE | 2019-02-06 18:18 | Operative Report ---
DATE OF OPERATION: 02/06/2019 PREOPERATIVE DIAGNOSES: 1. Left heel 8 x 4 x 1 cm neuropathic ulcer. 2. Calcaneal osteomyelitis. 3. Peripheral vascular disease. POSTOPERATIVE DIAGNOSES: 1. Left heel 8 x 4 x 1 cm neuropathic ulcer. 2. Calcaneal osteomyelitis. 3. Peripheral vascular disease. PROCEDURE: 1. Left heel irrigation and debridement 8 x 4 x 1 cm necrotic neuropathic ulcer. 2. Debridement left heel fascia. 3. Debridement left heel pad. 4. Debridement and saucerization of calcaneal bone osteomyelitis. 5. Implantation antibiotic laden Stimulan beads 5 mL, gentamicin/vancomycin. SURGEON: Chuckie Guillermo DO. RICE DRIER OPERATOR: Ildefonso Murillo PA-C, who was present for patient positioning, sterile prep and drape, management of retractors and instruments. He was present through the critical portions of the case including wound closure, application of sterile dressing and transport of the patient to recovery. ANESTHESIA: Regional MAC. SPECIMENS: 1. Aerobic, anaerobic, Gram stain from the calcaneus. 2. Calcaneal bone for pathological specimen. DRAINS: Partially open wound. COMPLICATIONS: None. BLOOD LOSS: 5 mL. PERTINENT HISTORY: This is a 68-year-old gentleman who has had a complicated history for the last year. He has been bed bound essentially and he developed a heel ulcer, which is being treated conservatively. He had obvious necrosis of the skin. He eventually had a CT scan, there was noted to be an area of osteomalacia and air in the calcaneus and the soft tissues consistent with osteomyelitis. The patient is scheduled for surgery as indicated. All potential risks, benefits, complications, alternatives, rehab, potential for incomplete relief of symptoms, need for further surgery, DVT, PE, , persistent pain, swelling, scarring, weakness, neurovascular injury, bone fracture, need for possible amputation were discussed with the patient and his , they both decided to proceed with procedure as indicated. DESCRIPTION OF PROCEDURE: The patient was taken to operative suite, placed supine on the Operating Room table. After review of consent and identification of proper operative site, the patient was sedated. A nerve block was performed of the ankle. Left lower extremity was then sterilely prepped in usual fashion, elevated and partially exsanguinated from the calf extending proximally with an Esmarch bandage. Tourniquet inflated to 300 mmHg. There was no exsanguination performed distally due to the nature of the infection of the calcaneus. Next, the 15 blade was then used to sharply debride the necrotic heel pad measuring 8 x 4 x 1 cm. Necrotic superficial tissue was then sharply debrided, noted to be foul odor with obvious of the tissue without any reasonable viability of the tissue. Fascia was then incised and debrided with a rongeur. The heel pad was then debrided with a 15 blade scalpel and a rongeur. Next, the necrotic tissue was passed off and sponged. The central portion of the heel pad and subcutaneous fat had a darkened hue with completely devitalized tissue. This was sharply excised with 15 blade scalpel. This is the site of the ulceration in the sinus tract. This was debrided down to the level of bone. This was noted to have area of obvious softening and osteomalacia. This was probed with a forcep which easily penetrated the bone consistent with osteonecrosis and osteomyelitis. Next, a probe was inserted into the calcaneus and aerobic, anaerobic and Gram stain specimens were obtained from the abscess pocket in the area of osteonecrosis on the calcaneus. Next, a curette and rongeur were then used to debride and saucerize the area noted on the CT scan which did measure approximately 1.8 x 2.8 cm intraoperatively. After the obviously softened and necrotic bone was removed, next pulsatile lavage was used with 3 liters of sterile normal saline with bacitracin to cleanse the calcaneus and the heel pad thoroughly. Once this was completed, Stimulan antibiotic laden cement beads with vancomycin and gentamicin 5 mL packet was then formed in small beads and the beads then placed into the calcaneal bone within the area of debrided osteonecrosis with saucerization and then a small pouch was made with a partial loose closure with two 3-0 Vicryl simple sutures. Next, Acticoat flex was then partially secured around the area of necrotic ulcer with skin florentin at the margin, which created a bead pouch and then the remainder of the 5 mL Stimulan antibiotic beads then placed in this pouch. The pouch was then closed with the remainder of the skin florentin. Finally, a sterile compressive dressing and well-padded soft splint was applied overwrapped with an Gigi wrap. Tourniquet was released. The patient was awakened and taken to recovery in stable condition. I attest to the content of the Intraoperative Record and any orders documented therein. Any exception s are noted below.
[2019-02-06] MEDS: HYDROCODONE/ACETAMOPHEN 5/325MG TAB PO PRN (19:46)
--- NOTE | 2019-02-06 20:19 | Hospitalist Progress Note ---
Date of Service February 06, 2019 Assessment & Plan (1) Metabolic encephalopathy: resolved. likely due to infectious etiologies (left foot infection/osteomyelitis, UTI, etc). cont seroquel HS. (2) Severe sepsis: due to klebsiella UTI and left heel ulcer/osteomyelitis. sepsis resolved. cont vanco/zosyn mainly to cover heel and osteomyelitis. follow intra-op cultures from today's procedure and narrow the IV abx, if possible. ID following. blood cultures negative since admission. (3) Acute UTI: catheter-associated/luna-associated/complicated UTI. 2nd to klebsiella. has grown klebsiella multiple times this year. needs MAINE to r/o chronic prostatitis. if present will need protracted course of PO abx for such (4+ weeks). cont current abx. (4) Unstageable pressure ulcer of heel: left foot appreciate wound care consultation, ID, ortho s/p arteriogram by Dr Larose - adequate arterial circulation; no intervention done s/p left heel ulcer debridement, cultures, bone debridement, placement of abx beads, etc by Dr Guillermo cont local wound care (5) Osteomyelitis of foot: left - as above in "pressure ulcer..." ortho, ID, cardiology, wound care consults appreciated cont IV abx (6) C. difficile colitis: history of such no active disease, no diarrhea placed on probiotics in face of broad-spectrum abx (7) Lumbar stenosis with neurogenic claudication: s/p multiple surgeries and I/D for epidural abscess in past pain improved last 2 days cont norco prn, etc (8) Coronary artery disease: elevated troponin was likely demand ischemia in setting of severe sepsis (9) Ischemic cardiomyopathy: compensated echo 11/2018 showing EF 25-30% cont metoprolol 25 BID convert to succinate before d/c cont lasix 20mg daily (10) Stage III chronic kidney disease: Cr stable BMP am (11) Uncontrolled type 2 diabetes mellitus with neurologic complication, with long-term current use of insulin: control adequate at this time BSGs ac/hs and novolog sliding scale (12) Anemia in chronic illness: s/p 1 unit PRBCs 2 days ago H/H stable stool heme negative (13) PAD (peripheral artery disease): left leg s/p arteriogram by Dr Larose yesterday as above resume lipitor resume asa/plavix when ok with surgery (14) DVT prophylaxis: heparin SC updated by phone 02/02, 02/04, 02/06 PT/OT progressing can likely d/c tele in am Subjective saw the patient post left heel ulcer surgery with Dr Guillermo. he was resting comfortably. he was a/o x 3 (Saturday, hospital, 2019, etc). denied any complaints. had decent night last evening - slept better, not as confused. tele overnight wnl. Review of Systems Constitutional: no fever Respiratory: no dyspnea Cardiovascular: no chest pain Gastrointestinal: no abdominal pain and no diarrhea/loose stools Physical Exam Constitutional: no acute distress and no altered mental status ENMT: external ear and nose normal, oropharynx normal Respiratory: normal respiratory effort, lungs clear to auscultation Auscultation: + diminished lung sounds (bases) Cardiovascular: Rate/Rhythm: regular rate and regular rhythm Heart Sounds: normal S1 and normal S2; no murmur Vessels: posterior tibial pulses present and dorsalis pedis pulses present; no JVD Extremities: no edema Gastrointestinal (Abdomen): normal bowel sounds, soft, nontender, no hepatosplenomegaly Inspection/Auscultation: + abdomen distended (mild - no change from prior exam) Musculoskeletal: left foot/ankle - wrapped in large dressings; toes exposed - cap refill < 2 sec Psychiatric: Orientation: alert and oriented x 3 Results & Data Vital Signs (Past 12 Hours) Vital Signs Temp Pulse Pulse Resp BP Pulse Ox 02/06/19 18:53 36.6 C 68 18 115/67 94 02/06/19 16:00 36.8 C 74 18 132/74 96 02/06/19 15:25 36.8 C 66 18 98/59 L 94 02/06/19 12:19 36.7 C 71 18 138/67 96 02/06/19 12:00 36.6 C 71 18 128/67 96 02/06/19 11:10 36.6 C 68 19 114/70 100 02/06/19 11:00 66 18 130/68 99 02/06/19 10:50 36.2 C L 69 17 126/70 88 L 02/06/19 10:40 68 20 124/62 95 02/06/19 10:30 76 18 129/72 100 02/06/19 10:20 73 16 135/79 100 02/06/19 10:10 36.2 C L 66 15 135/70 99 02/06/19 08:23 36.9 C 76 20 129/73 95 Laboratory Results Laboratory Results - last 24 hr 02/05/19 02/06/19 02/06/19 20:22 07:26 10:46 Hgb 8.9 L Hct 27.1 L Sodium Potassium Chloride Carbon Dioxide Anion Gap BUN Creatinine Est Cr Clr Drug Dosing Est GFR ( Amer) Est GFR (Non-Af Amer) BUN/Creatinine Ratio Glucose POC Glucose 191 H 144 H Calcium Magnesium 02/06/19 02/06/19 02/06/19 10:46 10:48 11:46 Hgb Hct Sodium 137 Potassium 3.9 Chloride 105 Carbon Dioxide 26 Anion Gap 6.0 BUN 7 Creatinine 0.77 Est Cr Clr Drug Dosing 108.0 Est GFR ( Amer) 109.6 Est GFR (Non-Af Amer) 94.6 BUN/Creatinine Ratio 8.8 L Glucose 127 H POC Glucose 130 H 124 H Calcium 7.9 L Magnesium 1.8 02/06/19 16:19 Hgb Hct Sodium Potassium Chloride Carbon Dioxide Anion Gap BUN Creatinine Est Cr Clr Drug Dosing Est GFR ( Amer) Est GFR (Non-Af Amer) BUN/Creatinine Ratio Glucose POC Glucose 190 H Calcium Magnesium PG Care Time/CCT Total # of Minutes Spent Total Time Spent with Patient: Total time spent is greater than 50% in coordination of care (as documented) at patient's floor/unit and/or counseling patient: (1) Unstageable pressure ulcer of heel Laterality: left Qualified Code(s): L89.620 - Pressure ulcer of left heel, unstageable (2) Coronary artery disease Associated angina: without angina Coronary Disease-Associated Artery/Lesion type: [place] artery [place] vs. transplanted heart: [place] heart Qualified Code(s): I25.10 - Atherosclerotic heart disease of [place] coronary artery without angina pectoris (3) Osteomyelitis of foot Laterality: left Osteomyelitis type: unspecified type Qualified Code(s): M86.9 - Osteomyelitis, unspecified
[2019-02-06] MEDS: QUETIAPINE FUMARATE 25 MG TABLET PO SCH (21:00)
[2019-02-06] MEDS: ONDANSETRON INJ 2 MG/ML 2 ML VIAL IV PRN (23:41)
[2019-02-07 04:52] LABS: Hematocrit (blood only) 26.7 % (42-52); Hemoglobin 8.7 g/dL (14.0-18.0); Mean Corpuscular Hgb Conc 32.6 g/dL (32-36); Mean Corpuscular Volume 92.1 fL (80-100); Mean Platelet Volume 8.4 fL (7.4-10.4); Platelet Count 204 K/uL (130-400); RDW Coefficient of Variation 16.4 % (11.5-14.5); RDW Standard Deviation 54.1 fL (36.4-46.3); White Blood Count 8.41 K/uL (4.8-10.8)
[2019-02-07 05:09] LABS: Calcium 7.9 mg/dl (8.5-10.1); Creatinine Clr Calc Pharmacy 95.6 ml/min; Est GFR (African American) 104.2; Est GFR (Non-African American) 89.9
[2019-02-07] MEDS: PIPERACILLIN/TAZOBACTAM 4.5 GM in DEXTROSE 5% 100 ML IV SCH ×3 (05:26→21:54)
[2019-02-07] MEDS: VANCOMYCIN HCL 1,500 MG in SODIUM CHLORIDE 0.9% 500 ML IV SCH (05:26)
[2019-02-07] MEDS: FUROSEMIDE 20 MG TAB PO SCH (09:06)
[2019-02-07] MEDS: LACTOBACILLUS ACIDOPHILUS (FLORANEX) TAB PO SCH ×3 (09:06→17:20)
[2019-02-07] MEDS: FERROUS SULFATE 325 MG TAB PO SCH ×2 (09:06→20:37)
[2019-02-07] MEDS: POTASSIUM CHLORIDE 20 MEQ TABCR PO SCH (09:07)
[2019-02-07] MEDS: PANTOprazole 40 MG TAB PO SCH ×2 (09:07→20:37)
[2019-02-07] MEDS: HEPARIN SOD 5,000 UNIT/0.5 ML VIAL SQ SCH ×2 (09:07→20:37)
[2019-02-07] MEDS: LIDOCAINE 5% 1 PATCH TD SCH (09:07)
[2019-02-07] MEDS: METOPROLOL TARTRATE 25 MG TAB PO SCH ×2 (09:08→20:41)
[2019-02-07] MEDS: INSULIN ASPART 100 UNITS/ML 3 ML PEN SC SCH ×4 (09:09→20:38)
--- NOTE | 2019-02-07 10:20 | Orthopedic Progress Note ---
Date of Service February 07, 2019 Assessment & Plan (1) Osteomyelitis of foot: POD #1 s/p 1. Left heel irrigation and debridement 8 x 4 x 1 cm necrotic neuropathic ulcer. 2. Debridement left heel fascia. 3. Debridement left heel pad. 4. Debridement and saucerization of calcaneal bone osteomyelitis. 5. Implantation antibiotic laden Stimulan beads 5 mL, gentamicin/vancomycin Dressing changed today. Will plan for daily dressing changes. NWB LLE at all times. Discussed prolonged IV antibiotic therapy and also the length of time it will possibly take for the wound to heal. D/C planning--uncertain at this time. Subjective No complaints of the left foot. Pain is controlled and is minimal within the left heel. Physical Exam Constitutional: WD/WN, vitals as above Musculoskeletal: Left heel: Stable ulcer at the plantar/posterior heel s/p debridement. Eschar has been excised. There is an Acticoat flex dressing with visible antibiotic beads under the dressing. No erythema around the ulceration. No streaking. No drainage from the site. Psychiatric: A+Ox3, euthymic affect Results & Data Vital Signs (Past 12 Hours) Vital Signs Temp Pulse Pulse Resp BP Pulse Ox 02/07/19 07:09 37.3 C 70 16 143/81 H 94 02/07/19 04:00 36.4 C L 64 16 131/76 94 02/06/19 23:47 64 02/06/19 23:04 37.1 C 63 16 128/71 96 (1) Osteomyelitis of foot Laterality: left Osteomyelitis type: unspecified type Qualified Code(s): M86.9 - Osteomyelitis, unspecified
[2019-02-07] MEDS: FINASTERIDE 5 MG TAB PO SCH (14:20)
[2019-02-07] MEDS: ATORVASTATIN 40 MG TAB PO SCH (14:20)
[2019-02-07] MEDS: DIVALPROEX DELAY RELEASE 250 MG TABEC PO SCH ×2 (14:20→20:37)
[2019-02-07] MEDS: HYDROCODONE/ACETAMOPHEN 5/325MG TAB PO PRN ×2 (14:29→18:47)
--- NOTE | 2019-02-07 16:59 | Infectious Disease Progress Nt ---
Date of Service February 07, 2019 Assessment & Plan (1) Osteomyelitis of foot: 68-year-old male admitted with sepsis with evidence of osteomyelitis of the left heel in the setting of large ulcer, as well as Klebsiella urinary tract infection. Now status post surgical debridement. Patient to continue on present antibiotics, await final culture results. Will follow. (2) Acute UTI: (3) Klebsiella infection: Subjective No complaints of the left foot. Pain is controlled and is minimal within the left heel. Physical Exam Constitutional: + ill appearing and + altered mental status; no acute distress Eyes: PERRL, conjunctivae normal, anicteric sclerae ENMT: external ear and nose normal, oropharynx normal Neck: trachea midline, no thyromegaly neck nontender Respiratory: normal respiratory effort, lungs clear to auscultation normal percussion; does not use accessory muscles Cardiovascular: Rate/Rhythm: regular rate and regular rhythm Heart Sounds: normal S1 and normal S2; no gallop, no murmur and no cardiac rub Vessels: normal peripheral pulses; no JVD Gastrointestinal (Abdomen): normal bowel sounds, soft, nontender, no hepatosplenomegaly Musculoskeletal: no cyanosis or clubbing, extremities motor strength 5/5 Spine: thoracic spine normal to inspection and lumbar spine normal to inspection; no cervical spinal tenderness Skin: normal turgor and + wound (Dressing intact); no rashes Neurologic: moves all extremities, awake and + confused; no focal motor deficits and no meningeal signs Psychiatric: Orientation: alert, oriented to person and cooperative Lymphatic: no cervical or axillary lymphadenopathy no inguinal lymphadenopathy Results & Data Vital Signs (Past 12 Hours) Vital Signs Temp Pulse Pulse Pulse Resp BP Pulse Ox 02/07/19 13:23 36.8 C 69 20 121/73 96 02/07/19 11:45 36.7 C 70 18 111/57 L 96 02/07/19 08:00 62 02/07/19 07:09 37.3 C 70 16 143/81 H 94 Laboratory Results Short CBC 02/07/19 Range/Units 04:42 WBC 8.41 (4.8-10.8) K/uL Hgb 8.7 L (14.0-18.0) g/dL Hct 26.7 L (42-52) % Plt Count 204 (130-400) K/uL BMP 02/07/19 04:42 Sodium 137 Potassium 4.0 Chloride 104 Carbon Dioxide 27 BUN 8 Creatinine 0.87 Glucose 108 H Calcium 7.9 L Diagnostic Findings Microbiology 02/06/19 Unknown Foot,Left Gram Stain - Final 02/06/19 Unknown Foot,Left Aerobic and Anaerobic Culture - Preliminary Gram negative bacilli 01/31/19 01:08 Blood Aerobic Blood Culture - Final No growth in Aerobic bottle after 5 days. 01/31/19 01:08 Blood Anaerobic Blood Culture - Final 01/31/19 00:39 Blood Aerobic Blood Culture - Final No growth in Aerobic bottle after 5 days. 01/31/19 00:39 Blood Anaerobic Blood Culture - Final 01/31/19 00:42 Urine,Indwelling Cath Urine Culture - Final Klebsiella pneumoniae PG Care Time/CCT Total # of Minutes Spent Total Time Spent with Patient: Total time spent is greater than 50% in coordination of care (as documented) at patient's floor/unit and/or counseling patient: (1) Osteomyelitis of foot Laterality: left Osteomyelitis type: unspecified type Qualified Code(s): M86.9 - Osteomyelitis, unspecified
[2019-02-07] MEDS: CLOPIDOGREL BISULFATE 75 MG TAB PO SCH (18:47)
[2019-02-07] MEDS: ASPIRIN 81 MG ECTAB PO SCH (18:47)
--- NOTE | 2019-02-07 18:49 | Hospitalist Progress Note ---
Date of Service February 07, 2019 Assessment & Plan (1) Severe sepsis: due to klebsiella UTI and left heel ulcer/osteomyelitis. sepsis resolved. cont vanco/zosyn mainly to cover heel and osteomyelitis while awaiting intra-op cultures. ID following. blood cultures were negative earlier this admission. (2) Acute UTI: catheter-associated/luna-associated/complicated UTI. 2nd to klebsiella. has grown klebsiella multiple times this year. needs MAINE to r/o chronic prostatitis. if present will need protracted course of PO abx for such (4+ weeks). cont current abx. (3) Osteomyelitis of foot: left - as above in "pressure ulcer..." POD #1 s/p debridement. appreciate ortho, ID, cardiology, wound care consults. follow intra-op culture - growing GNR. stable, doing well; non weight bearing to left leg/foot. (4) Unstageable pressure ulcer of heel: left foot appreciate wound care consultation, ID, ortho s/p arteriogram by Dr Larose - adequate arterial circulation; no intervention done s/p left heel ulcer debridement, cultures, bone debridement, placement of abx beads, etc by Dr Guillermo - POD #1 cont local wound care follow cultures (5) Metabolic encephalopathy: resolved. likely due to infectious etiologies (left foot infection/osteomyelitis, UTI, etc). cont seroquel HS. (6) C. difficile colitis: history of such no active disease, no diarrhea placed on probiotics in face of broad-spectrum abx (7) Lumbar stenosis with neurogenic claudication: s/p multiple surgeries and I/D for epidural abscess in past pain controlled cont norco prn, etc (8) Coronary artery disease: elevated troponin was likely demand ischemia in setting of severe sepsis ok with ortho to resume asa and plavix (9) Ischemic cardiomyopathy: compensated echo 11/2018 showing EF 25-30% cont metoprolol 25 BID convert to succinate before d/c cont lasix 20mg daily (10) Stage III chronic kidney disease: Cr stable BMP am (11) Uncontrolled type 2 diabetes mellitus with neurologic complication, with long-term current use of insulin: control adequate at this time BSGs ac/hs and novolog sliding scale (12) Anemia in chronic illness: s/p 1 unit PRBCs 2 days ago H/H stable stool heme negative (13) PAD (peripheral artery disease): left leg s/p arteriogram by Dr Larose this admission - adequate blood flow to left foot as above resumed lipitor resume asa/plavix today (14) DVT prophylaxis: heparin SC updated by phone 02/02, 02/04, 02/06 PT/OT progressing d/c tele --- transfer to med/surg dispo planning Subjective pt had uneventful night. no significant delirium and slept ok per staff. pleasant/cooperative during the visit. fully oriented x 3. denied pain any location. no dyspnea. tele stable overnight. Review of Systems Constitutional: + anorexia (still ongoing ); no fever and no chills Respiratory: no cough and no dyspnea Cardiovascular: no chest pain Gastrointestinal: no abdominal pain, no nausea, no vomiting, no constipation and no diarrhea/loose stools Physical Exam Constitutional: no acute distress and no altered mental status ENMT: external ear and nose normal, oropharynx normal Respiratory: normal respiratory effort, lungs clear to auscultation Cardiovascular: Rate/Rhythm: regular rate and regular rhythm Heart Sounds: normal S1 and normal S2; no murmur Vessels: posterior tibial pulses present and dorsalis pedis pulses present; no JVD Extremities: no edema Gastrointestinal (Abdomen): normal bowel sounds, soft, nontender, no hepatosplenomegaly Inspection/Auscultation: + abdomen distended (mild/no changes) Skin: left foot wrapped in large dressings; cap refill brisk Psychiatric: Orientation: alert and oriented x 3 Results & Data Vital Signs (Past 12 Hours) Vital Signs Temp Pulse Pulse Pulse Resp BP Pulse Ox 02/07/19 13:23 36.8 C 69 20 121/73 96 02/07/19 11:45 36.7 C 70 18 111/57 L 96 02/07/19 08:00 62 02/07/19 07:09 37.3 C 70 16 143/81 H 94 Laboratory Results Laboratory Results - last 24 hr 02/04/19 02/06/19 02/07/19 05:58 20:27 04:42 WBC 8.41 RBC 2.90 L Hgb 8.7 L Hct 26.7 L MCV 92.1 MCH 30.0 MCHC 32.6 RDW Std Deviation 54.1 H RDW Coeff of Norbert 16.4 H Plt Count 204 MPV 8.4 Sodium Potassium Chloride Carbon Dioxide Anion Gap BUN Creatinine Est Cr Clr Drug Dosing Est GFR ( Amer) Est GFR (Non-Af Amer) BUN/Creatinine Ratio Glucose POC Glucose 200 H Calcium Crossmatch See Detail 02/07/19 02/07/19 02/07/19 04:42 07:31 11:28 WBC RBC Hgb Hct MCV MCH MCHC RDW Std Deviation RDW Coeff of Norbert Plt Count MPV Sodium 137 Potassium 4.0 Chloride 104 Carbon Dioxide 27 Anion Gap 6.0 BUN 8 Creatinine 0.87 Est Cr Clr Drug Dosing 95.6 Est GFR ( Amer) 104.2 Est GFR (Non-Af Amer) 89.9 BUN/Creatinine Ratio 9.0 L Glucose 108 H POC Glucose 109 H 149 H Calcium 7.9 L Crossmatch 02/07/19 16:39 WBC RBC Hgb Hct MCV MCH MCHC RDW Std Deviation RDW Coeff of Norbert Plt Count MPV Sodium Potassium Chloride Carbon Dioxide Anion Gap BUN Creatinine Est Cr Clr Drug Dosing Est GFR ( Amer) Est GFR (Non-Af Amer) BUN/Creatinine Ratio Glucose POC Glucose 163 H Calcium Crossmatch PG Care Time/CCT Total # of Minutes Spent Total Time Spent with Patient: Total time spent is greater than 50% in coordination of care (as documented) at patient's floor/unit and/or counseling patient: (1) Unstageable pressure ulcer of heel Laterality: left Qualified Code(s): L89.620 - Pressure ulcer of left heel, unstageable (2) Coronary artery disease Associated angina: without angina Coronary Disease-Associated Artery/Lesion type: [place] artery [place] vs. transplanted heart: [place] heart Qualified Code(s): I25.10 - Atherosclerotic heart disease of [place] coronary artery without angina pectoris (3) Osteomyelitis of foot Laterality: left Osteomyelitis type: unspecified type Qualified Code(s): M86.9 - Osteomyelitis, unspecified
[2019-02-07] MEDS: ONDANSETRON INJ 2 MG/ML 2 ML VIAL IV PRN (19:43)
[2019-02-07] MEDS: QUETIAPINE FUMARATE 25 MG TABLET PO SCH (20:37)
[2019-02-08] MEDS: HYDROCODONE/ACETAMOPHEN 5/325MG TAB PO PRN ×4 (00:11→21:02)
[2019-02-08] MEDS ORDERED: LORazepam 0.5 MG/1 ML VIAL IV STA (00:51)
[2019-02-08] MEDS ORDERED: VANCOMYCIN TROUGH ONE (05:30)
[2019-02-08] MEDS: PIPERACILLIN/TAZOBACTAM 4.5 GM in DEXTROSE 5% 100 ML IV SCH ×3 (05:39→21:39)
[2019-02-08 06:32] LABS: Hematocrit (blood only) 27.8 % (42-52)
[2019-02-08 07:09] LABS: BUN Creatinine Ratio 9.5 (10-20); Creatinine Clr Calc Pharmacy 101.4 ml/min; Est GFR (African American) 106.8; Est GFR (Non-African American) 92.1; Potassium 3.9 mmol/L (3.5-5.1)
[2019-02-08] MEDS: VANCOMYCIN HCL 1,500 MG in SODIUM CHLORIDE 0.9% 500 ML IV SCH (07:11)
[2019-02-08] MEDS: DIVALPROEX DELAY RELEASE 250 MG TABEC PO SCH (07:34)
[2019-02-08] MEDS: ASPIRIN 81 MG ECTAB PO SCH (07:34)
[2019-02-08] MEDS: LACTOBACILLUS ACIDOPHILUS (FLORANEX) TAB PO SCH ×3 (07:34→16:29)
[2019-02-08] MEDS: FERROUS SULFATE 325 MG TAB PO SCH ×2 (07:34→21:39)
[2019-02-08] MEDS: ATORVASTATIN 40 MG TAB PO SCH (07:35)
[2019-02-08] MEDS: METOPROLOL TARTRATE 25 MG TAB PO SCH ×2 (07:35→21:02)
[2019-02-08] MEDS: FUROSEMIDE 20 MG TAB PO SCH (07:35)
[2019-02-08] MEDS: POTASSIUM CHLORIDE 20 MEQ TABCR PO SCH (07:35)
[2019-02-08] MEDS: LIDOCAINE 5% 1 PATCH TD SCH (07:35)
[2019-02-08] MEDS: CLOPIDOGREL BISULFATE 75 MG TAB PO SCH (07:36)
[2019-02-08] MEDS: PANTOprazole 40 MG TAB PO SCH ×2 (07:36→21:02)
[2019-02-08] MEDS: FINASTERIDE 5 MG TAB PO SCH (07:36)
[2019-02-08] MEDS: HEPARIN SOD 5,000 UNIT/0.5 ML VIAL SQ SCH ×2 (08:53→21:02)
[2019-02-08] MEDS: INSULIN ASPART 100 UNITS/ML 3 ML PEN SC SCH ×4 (08:53→21:03)
--- NOTE | 2019-02-08 09:00 | Orthopedic Progress Note ---
Date of Service February 08, 2019 Assessment & Plan (1) Osteomyelitis of foot: POD #1 s/p 1. Left heel irrigation and debridement 8 x 4 x 1 cm necrotic neuropathic ulcer. 2. Debridement left heel fascia. 3. Debridement left heel pad. 4. Debridement and saucerization of calcaneal bone osteomyelitis. 5. Implantation antibiotic laden Stimulan beads 5 mL, gentamicin/vancomycin Dressing changed today. Will plan for daily dressing changes. NWB LLE at all times. Discussed prolonged IV antibiotic therapy and also the length of time it will possibly take for the wound to heal. D/C planning--uncertain at this time. Subjective Post Operative Progress Note Patient seen sitting up in bed, comfortable, denies complaints, pain well controlled, no acute issues. Review of Systems Review of Systems: All systems reviewed & are unremarkable except as noted in HPI & below Physical Exam Physical Exam: .LLE Results & Data Vital Signs (Past 12 Hours) Vital Signs Temp Pulse Pulse Resp BP Pulse Ox 02/08/19 08:13 36.4 C L 70 20 133/67 96 02/07/19 23:45 36.5 C 97 H 16 130/79 97 (1) Osteomyelitis of foot Laterality: left Osteomyelitis type: unspecified type Qualified Code(s): M86.9 - Osteomyelitis, unspecified
--- NOTE | 2019-02-08 09:58 | Orthopedic Progress Note ---
Date of Service February 08, 2019 Assessment & Plan (1) Osteomyelitis of foot: POD #2 s/p 1. Left heel irrigation and debridement 8 x 4 x 1 cm necrotic neuropathic ulcer. 2. Debridement left heel fascia. 3. Debridement left heel pad. 4. Debridement and saucerization of calcaneal bone osteomyelitis. 5. Implantation antibiotic laden Stimulan beads 5 mL, gentamicin/vancomycin Dressing changed today. Will plan for daily dressing changes. NWB LLE at all times. Discussed prolonged IV antibiotic therapy and also the length of time it will possibly take for the wound to heal. PICC line is in place. When antibiotic choice is made and home therapy is set up, ok to discharge from ortho standpoint. D/C planning--uncertain at this time. Subjective No complaints of left heel pain. NWB on the LLE at all times. Main concern is when he will be able to walk on the foot again. Physical Exam Constitutional: WD/WN, vitals as above Musculoskeletal: Extremities: + foot abnormality Left (Stable heel ulcer. Acticoat flex dressing in place with visible antibiotic beads. No erythema. Mild serosanguinous drainage on the bandage.) Psychiatric: A+Ox3, euthymic affect Results & Data Vital Signs (Past 12 Hours) Vital Signs Temp Pulse Pulse Resp BP Pulse Ox 02/08/19 08:13 36.4 C L 70 20 133/67 96 02/07/19 23:45 36.5 C 97 H 16 130/79 97 (1) Osteomyelitis of foot Laterality: left Osteomyelitis type: unspecified type Qualified Code(s): M86.9 - Osteomyelitis, unspecified
--- NOTE | 2019-02-08 16:32 | Infectious Disease Progress Nt ---
Date of Service February 08, 2019 Assessment & Plan (1) Osteomyelitis of foot: 68-year-old male admitted with sepsis with evidence of osteomyelitis of the left heel in the setting of large ulcer, as well as Klebsiella urinary tract infection. Now status post surgical debridement. Cultures so far growing Proteus. Zosyn will provide adequate coverage, continues until final culture results available. Will follow. (2) Acute UTI: (3) Klebsiella infection: Subjective No complaints of left heel pain. NWB on the LLE at all times. Main concern is when he will be able to walk on the foot again. Remains afebrile. Operative cultures so far growing Proteus. Tolerating Zosyn without apparent difficulty. Review of Systems Review of Systems: All systems reviewed & are unremarkable except as noted in HPI & below Physical Exam Constitutional: + ill appearing and + altered mental status; no acute distress Eyes: PERRL, conjunctivae normal, anicteric sclerae ENMT: external ear and nose normal, oropharynx normal Neck: trachea midline, no thyromegaly neck nontender Respiratory: normal respiratory effort, lungs clear to auscultation normal percussion; does not use accessory muscles Cardiovascular: Rate/Rhythm: regular rate and regular rhythm Heart Sounds: normal S1 and normal S2; no gallop, no murmur and no cardiac rub Vessels: normal peripheral pulses; no JVD Gastrointestinal (Abdomen): normal bowel sounds, soft, nontender, no hepatosplenomegaly Musculoskeletal: no cyanosis or clubbing, extremities motor strength 5/5 Spine: thoracic spine normal to inspection and lumbar spine normal to inspection; no cervical spinal tenderness Skin: normal turgor and + wound (Dressing intact); no rashes Neurologic: moves all extremities, awake and + confused; no focal motor deficits and no meningeal signs Psychiatric: Orientation: alert, oriented to person and cooperative Lymphatic: no cervical or axillary lymphadenopathy no inguinal lymphadenopathy Results & Data Vital Signs (Past 12 Hours) Vital Signs Temp Pulse Pulse Resp BP Pulse Ox 02/08/19 14:57 36.9 C 69 18 121/47 L 95 02/08/19 08:13 36.4 C L 70 20 133/67 96 Laboratory Results Short CBC 02/08/19 Range/Units 06:00 Hgb 9.0 L (14.0-18.0) g/dL Hct 27.8 L (42-52) % BMP 02/08/19 06:00 Sodium 136 Potassium 3.9 Chloride 104 Carbon Dioxide 26 BUN 8 Creatinine 0.82 Glucose 99 Calcium 8.0 L Diagnostic Findings Microbiology 02/06/19 Unknown Foot,Left Gram Stain - Final 02/06/19 Unknown Foot,Left Aerobic and Anaerobic Culture - Preliminary Proteus mirabilis 01/31/19 01:08 Blood Aerobic Blood Culture - Final No growth in Aerobic bottle after 5 days. 01/31/19 01:08 Blood Anaerobic Blood Culture - Final 01/31/19 00:39 Blood Aerobic Blood Culture - Final No growth in Aerobic bottle after 5 days. 01/31/19 00:39 Blood Anaerobic Blood Culture - Final 01/31/19 00:42 Urine,Indwelling Cath Urine Culture - Final Klebsiella pneumoniae PG Care Time/CCT Total # of Minutes Spent Total Time Spent with Patient: Total time spent is greater than 50% in coordination of care (as documented) at patient's floor/unit and/or counseling patient: (1) Osteomyelitis of foot Laterality: left Osteomyelitis type: unspecified type Qualified Code(s): M86.9 - Osteomyelitis, unspecified
--- NOTE | 2019-02-08 19:36 | Hospitalist Progress Note ---
Date of Service February 08, 2019 Assessment & Plan (1) Severe sepsis: due to klebsiella UTI and left heel ulcer/osteomyelitis. sepsis resolved. had been on vanco/zosyn since admission - mainly to cover heel and osteomyelitis while awaiting intra-op cultures. intra-op culture grew proteus. vanco d/c today. to continue zosyn until culture is final. appreciate ID recs from Dr Ndiaye. blood cultures were negative earlier this admission. (2) Acute UTI: catheter-associated/luna-associated/complicated UTI. 2nd to klebsiella. clinically resolved. has grown klebsiella multiple times this year. ideally needs MAINE to r/o chronic prostatitis; however he likely will be on prolonged IV/PO antibiotic course for the left foot osteomyelitis and thus that antibiotic course would suffice if he indeed had prostatitis. thus, defer on MAINE for now. Need to check to see when luna was last exchanged. He has chronic luna at the SNF. (3) Osteomyelitis of foot: POD #2 s/p debridement by Dr Guillermo of left heel ulcer/osteo. appreciate ortho, ID, cardiology, wound care consults. intra-op culture - proteus present. d/c vanco. continue zosyn until culture is final. Dr Ndiaye following; hopefully can narrow the abx soon. cont probiotics. stable, doing well; non weight bearing to left leg/foot however patient rarely, if at all, bears weight. (4) Unstageable pressure ulcer of heel: left foot appreciate wound care consultation, ID, ortho s/p arteriogram by Dr Larose - adequate arterial circulation; no intervention done s/p left heel ulcer debridement, cultures, bone debridement, placement of abx beads, etc by Dr Guillermo - POD #2 cont local wound care culture thus far from the OR with proteus (5) Metabolic encephalopathy: had resolved. was fully oriented x 3 over the last 2-3 days. was likely due to infectious etiologies (left foot infection/osteomyelitis, UTI, etc). however, he is back to being confused today. ativan IV given last pm may have caused such. also the move from 2nd floor to 4th floor may have contributed to disorientation. I have placed ativan on his "allergy list." AVOID BENZOS. cont seroquel HS. increase seroquel to 37.5mg HS. he has also taken depakote 250mg BID since October or November of this year; records suggest it was for behavior/delirium. He had not had this medication for most of this stay and seroquel seems to have been adequate for controlling the delirium. Thus, will stop the depakote and simply use seroquel HS . (6) C. difficile colitis: history of such no active disease, no diarrhea placed on probiotics in face of broad-spectrum abx (7) Lumbar stenosis with neurogenic claudication: s/p multiple surgeries and I/D for epidural abscess in past pain largely controlled cont norco prn, etc if pain was to worsen, if leukocytosis returns, etc low threshold for back imaging (8) Coronary artery disease: elevated troponin was likely demand ischemia in setting of severe sepsis at time of admission resumed asa and plavix 02/07/19 cont beta angy cont statin (9) Ischemic cardiomyopathy: compensated echo 11/2018 with EF 25-30% cont metoprolol 25 BID (convert to succinate before d/c) cont lasix 20mg daily if creatinine is stable tomorrow AM and if BP will allow would resume losartan 25mg on 02/09/19 (10) Stage III chronic kidney disease: Cr stable BMP am (11) Uncontrolled type 2 diabetes mellitus with neurologic complication, with long-term current use of insulin: control adequate at this time cont BSGs ac/hs and novolog sliding scale (12) Anemia in chronic illness: s/p 1 unit PRBCs 2 days ago H/H stable since then stool heme negative CBC in am for stability (13) PAD (peripheral artery disease): left leg s/p arteriogram by Dr Larose this admission - adequate blood flow to left foot during that a-gram resumed lipitor resumed asa/plavix (14) Arm edema: right arm (has PICC in this arm) doppler neg for DVT cont to follow (15) DVT prophylaxis: heparin SC TID updated by phone 02/02, 02/04, 02/06 left message on her voicemail 02/08/19 cont PT/OT can likely d/c back to SNF once mental status is at baseline and intra-op culture from Saturday has finalized at that time his antibiotics can be finalized by ID Subjective patient was moved from 2nd to 4th floor yesterday. around 0100 early this am he received IV ativan presumably for insomnia/ing. today he is confused - thought it was 1920 and that it was the morning (it was late in the afternoon when I saw him). over the last 2 days he had been oriented x 3. he c/o back pain today but denied cp, dyspnea, abd pain, foot pain. eating is fair today. Review of Systems Constitutional: no fever Respiratory: no dyspnea Cardiovascular: no chest pain Gastrointestinal: no abdominal pain, no nausea and no vomiting Physical Exam Constitutional: + altered mental status (a/o x 2); no acute distress ENMT: external ear and nose normal, oropharynx normal Respiratory: normal respiratory effort, lungs clear to auscultation Cardiovascular: Rate/Rhythm: regular rate and regular rhythm Heart Sounds: normal S1 and normal S2; no murmur Vessels: posterior tibial pulses present and dorsalis pedis pulses present; no JVD Extremities: + edema (trace b/l ) Gastrointestinal (Abdomen): normal bowel sounds, soft, nontender, no hepatosplenomegaly Inspection/Auscultation: + abdomen distended (mild/no changes) Musculoskeletal: left ankle/foot in KACEY wrap; pulses left foot difficult to feel due to dressings; right foot 2+ Skin: right arm PICC clean; mild edema of right arm -- unchanged Psychiatric: Orientation: alert, oriented to person, oriented to place and cooperative; + not oriented to time Results & Data Vital Signs (Past 12 Hours) Vital Signs Temp Pulse Pulse Resp BP Pulse Ox 02/08/19 14:57 36.9 C 69 18 121/47 L 95 02/08/19 08:13 36.4 C L 70 20 133/67 96 Laboratory Results Laboratory Results - last 24 hr 02/07/19 02/08/19 02/08/19 20:13 06:00 06:00 Hgb Hct Sodium 136 Potassium 3.9 Chloride 104 Carbon Dioxide 26 Anion Gap 6.0 BUN 8 Creatinine 0.82 Est Cr Clr Drug Dosing 101.4 Est GFR ( Amer) 106.8 Est GFR (Non-Af Amer) 92.1 BUN/Creatinine Ratio 9.5 L Glucose 99 POC Glucose 193 H Calcium 8.0 L Vancomycin Trough 21.5 02/08/19 02/08/19 02/08/19 06:00 07:52 11:43 Hgb 9.0 L Hct 27.8 L Sodium Potassium Chloride Carbon Dioxide Anion Gap BUN Creatinine Est Cr Clr Drug Dosing Est GFR ( Amer) Est GFR (Non-Af Amer) BUN/Creatinine Ratio Glucose POC Glucose 111 H 122 H Calcium Vancomycin Trough 02/08/19 16:32 Hgb Hct Sodium Potassium Chloride Carbon Dioxide Anion Gap BUN Creatinine Est Cr Clr Drug Dosing Est GFR ( Amer) Est GFR (Non-Af Amer) BUN/Creatinine Ratio Glucose POC Glucose 173 H Calcium Vancomycin Trough PG Care Time/CCT Total # of Minutes Spent Total Time Spent with Patient: Total time spent is greater than 50% in coordination of care (as documented) at patient's floor/unit and/or counseling patient: (1) Unstageable pressure ulcer of heel Laterality: left Qualified Code(s): L89.620 - Pressure ulcer of left heel, unstageable (2) Coronary artery disease Associated angina: without angina Coronary Disease-Associated Artery/Lesion type: [place] artery [place] vs. transplanted heart: [place] heart Qualified Code(s): I25.10 - Atherosclerotic heart disease of [place] coronary artery without angina pectoris (3) Osteomyelitis of foot Laterality: left Osteomyelitis type: unspecified type Qualified Code(s): M86.9 - Osteomyelitis, unspecified
[2019-02-08] MEDS: QUETIAPINE FUMARATE 25 MG TABLET PO SCH (21:02)
[2019-02-09] MEDS: HEPARIN SOD 5,000 UNIT/0.5 ML VIAL SQ SCH ×3 (05:51→20:26)
[2019-02-09] MEDS: PIPERACILLIN/TAZOBACTAM 4.5 GM in DEXTROSE 5% 100 ML IV SCH ×3 (05:51→21:03)
[2019-02-09 06:30] LABS: Basophils # (auto) 0.06 K/uL (0-0.2); Basophils % (auto) 0.9 %; Eosinophils % (auto) 3.1 %; Hematocrit (blood only) 28.7 % (42-52); Hemoglobin 9.2 g/dL (14.0-18.0); Immature Granulocytes # (auto) 0.13 K/uL (0.00-0.02); Lymphocytes # (auto) 1.04 K/uL (1.2-3.4); Lymphocytes % (auto) 16.4 %; Mean Corpuscular Hemoglobin 29.6 pg (25-34); Mean Corpuscular Hgb Conc 32.1 g/dL (32-36); Mean Corpuscular Volume 92.3 fL (80-100); Mean Platelet Volume 8.7 fL (7.4-10.4); Monocytes # (auto) 0.82 K/uL (0.11-0.59); Monocytes % (auto) 12.9 %; Neutrophils % (auto) 64.7 %; Platelet Count 244 K/uL (130-400); RDW Standard Deviation 55.8 fL (36.4-46.3); Red Blood Count 3.11 M/uL (4.7-6.1); White Blood Count 6.35 K/uL (4.8-10.8)
[2019-02-09 07:01] LABS: Calcium 8.3 mg/dl (8.5-10.1); Est GFR (African American) 107.9; Est GFR (Non-African American) 93.1; Potassium 3.7 mmol/L (3.5-5.1)
[2019-02-09] MEDS: FUROSEMIDE 20 MG TAB PO SCH (07:36)
[2019-02-09] MEDS: POTASSIUM CHLORIDE 20 MEQ TABCR PO SCH (07:36)
[2019-02-09] MEDS: LIDOCAINE 5% 1 PATCH TD SCH (07:36)
[2019-02-09] MEDS: PANTOprazole 40 MG TAB PO SCH ×2 (07:36→20:25)
[2019-02-09] MEDS: LACTOBACILLUS ACIDOPHILUS (FLORANEX) TAB PO SCH ×3 (07:36→16:26)
[2019-02-09] MEDS: FINASTERIDE 5 MG TAB PO SCH (07:37)
[2019-02-09] MEDS: ASPIRIN 81 MG ECTAB PO SCH (07:37)
[2019-02-09] MEDS: FERROUS SULFATE 325 MG TAB PO SCH ×2 (07:37→20:26)
[2019-02-09] MEDS: METOPROLOL TARTRATE 25 MG TAB PO SCH ×2 (07:38→20:25)
[2019-02-09] MEDS: ATORVASTATIN 40 MG TAB PO SCH (07:38)
[2019-02-09] MEDS: HYDROCODONE/ACETAMOPHEN 5/325MG TAB PO PRN ×3 (07:38→18:45)
[2019-02-09] MEDS: CLOPIDOGREL BISULFATE 75 MG TAB PO SCH (07:38)
[2019-02-09] MEDS: INSULIN ASPART 100 UNITS/ML 3 ML PEN SC SCH ×4 (08:57→20:27)
--- NOTE | 2019-02-09 10:24 | Orthopedic Progress Note ---
Date of Service February 09, 2019 Assessment & Plan (1) Osteomyelitis of foot: POD #3 s/p 1. Left heel irrigation and debridement 8 x 4 x 1 cm necrotic neuropathic ulcer. 2. Debridement left heel fascia. 3. Debridement left heel pad. 4. Debridement and saucerization of calcaneal bone osteomyelitis. 5. Implantation antibiotic laden Stimulan beads 5 mL, gentamicin/vancomycin Dressing changed today. Will plan for daily dressing changes. NWB LLE at all times. Discussed prolonged IV antibiotic therapy and also the length of time it will possibly take for the wound to heal. PICC line is in place. When antibiotic choice is made and home therapy is set up, ok to discharge from ortho standpoint. D/C planning--return to [facility] upon d/c. Subjective No left foot complaints today. LLE has been stable. No other complaints. Physical Exam Constitutional: WD/WN, vitals as above Musculoskeletal: Extremities: + foot abnormality Left (Stable heel ulceration. No erythema. Acticoat flex in place with antibiotic beads seen through the dressing.) Psychiatric: A+Ox3, euthymic affect Results & Data Vital Signs (Past 12 Hours) Vital Signs Temp Pulse Resp BP Pulse Ox 02/09/19 07:35 69 128/75 02/09/19 07:34 36.4 C L 71 20 146/77 H 96 02/08/19 22:58 36.6 C 74 20 136/79 96 (1) Osteomyelitis of foot Laterality: left Osteomyelitis type: unspecified type Qualified Code(s): M86.9 - Osteomyelitis, unspecified
--- NOTE | 2019-02-09 15:19 | Hospitalist Progress Note ---
Date of Service February 09, 2019 Assessment & Plan (1) Severe sepsis: due to klebsiella UTI and left heel ulcer/osteomyelitis (Proteus and S aureus) sepsis resolved. had been on vanco/zosyn since admission - mainly to cover heel and osteomyelitis while awaiting intra-op cultures. intra-op culture grew proteus in moderate amount, S aureus rare Proteus sensitive to Zosyn await sensitivities of S aureus, Vanco was stopped yesterday ID following, will touch base with them about final abx choice once S aureus sensitivities return blood cultures were negative earlier this admission. (2) Acute UTI: catheter-associated/luna-associated/complicated UTI. 2nd to klebsiella. clinically resolved. has grown klebsiella multiple times this year. ideally needs MAINE to r/o chronic prostatitis; however he likely will be on prolonged IV/PO antibiotic course for the left foot osteomyelitis and thus that antibiotic course would suffice if he indeed had prostatitis. consider luna exchange prior to discharge (3) Osteomyelitis of foot: POD #3 s/p debridement by Dr Guillermo of left heel ulcer/osteo. appreciate ortho, ID, cardiology, wound care consults. intra-op culture - proteus and S aureus continue zosyn until culture is final. Dr Ndiaye following; hopefully can narrow the abx soon. cont probiotics. stable, doing well; non weight bearing to left leg/foot however patient rarely, if at all, bears weight. (4) Unstageable pressure ulcer of heel: left foot appreciate wound care consultation, ID, ortho s/p arteriogram by Dr Larose - adequate arterial circulation; no intervention done s/p left heel ulcer debridement, cultures, bone debridement, placement of abx beads, etc by Dr Guillermo - POD #2 cont local wound care (5) Metabolic encephalopathy: resolved today, alert and oriented x 3, asking appropriate questions about care, discussing food options placed ativan on his "allergy list." AVOID BENZOS. cont seroquel HS. increase seroquel to 37.5mg HS. he has also taken depakote 250mg BID since October or November of this year; records suggest it was for behavior/delirium. He had not had this medication for most of this stay and seroquel seems to have been adequate for controlling the delirium. Thus, will stop the depakote and simply use seroquel HS . (6) C. difficile colitis: history of such no active disease, some loose stools but nothing to suggest C diff colitis placed on probiotics in face of broad-spectrum abx (7) Lumbar stenosis with neurogenic claudication: s/p multiple surgeries and I/D for epidural abscess in past pain largely controlled cont norco prn, etc if pain was to worsen, if leukocytosis returns, etc low threshold for back imaging (8) Coronary artery disease: elevated troponin was likely demand ischemia in setting of severe sepsis at time of admission resumed asa and plavix 02/07/19 cont beta angy cont statin (9) Ischemic cardiomyopathy: compensated echo 11/2018 with EF 25-30% cont metoprolol 25 BID (convert to succinate before d/c) cont lasix 20mg daily resume Losartan 25mg (10) Stage III chronic kidney disease: Cr stable BMP am (11) Uncontrolled type 2 diabetes mellitus with neurologic complication, with long-term current use of insulin: control adequate at this time cont BSGs ac/hs and novolog sliding scale (12) Anemia in chronic illness: s/p 1 unit PRBCs 3 days ago H/H stable since then stool heme negative Hb 9 today (13) PAD (peripheral artery disease): left leg s/p arteriogram by Dr Larose this admission - adequate blood flow to left foot during that a-gram resumed lipitor resumed asa/plavix (14) Arm edema: right arm (has PICC in this arm) doppler neg for DVT cont to follow (15) DVT prophylaxis: heparin SC TID cont PT/OT may be ready for D/C to SNF tomorrow if final S aureus culture returns Subjective patient sitting up in bed, just finished eating lunch he says that the food here is not very good he says he has some occasional pain in back at night, no pain in left heel no chest pain, no dyspnea he is alert and oriented today, asking how many more days he will need to be in the hospital reviewed labs, cultures from surgery growing Proteus and staph aureus, preliminary still WBC normal, Hb stable at 9, Cr and electrolytes stable Review of Systems Review of Systems: All systems reviewed & are unremarkable except as noted in HPI & below Respiratory: no cough and no dyspnea Cardiovascular: no chest pain Gastrointestinal: + diarrhea/loose stools (stools slightly loose); no abdominal pain, no nausea, no vomiting and no constipation Musculoskeletal: + back pain Physical Exam Constitutional: WD/WN, vitals as above Eyes: PERRL, conjunctivae normal, anicteric sclerae ENMT: external ear and nose normal, oropharynx normal Neck: trachea midline, no thyromegaly Respiratory: normal respiratory effort, lungs clear to auscultation Cardiovascular: RRR, no murmur, no edema Gastrointestinal (Abdomen): normal bowel sounds, soft, nontender, no hepatosplenomegaly Musculoskeletal: Head/Neck/Chest: normocephalic and head atraumatic Spine: + limited thoraco-lumbar ROM (pain, weakness) Extremities: + abnormal strength (weakness in legs bilaterally, cannot transfer or ambulate) Skin: no rashes, warm and dry + wound (heel ulcer) Neurologic: patellar DTR's 2+ bilat, sensation intact and PERRL, EOMI, accommodation nl, no face palsy, no dysarthria Psychiatric: Orientation: alert and oriented x 3 Lymphatic: no cervical or axillary lymphadenopathy Results & Data Vital Signs (Past 12 Hours) Vital Signs Temp Pulse Resp BP Pulse Ox 02/09/19 07:35 69 128/75 02/09/19 07:34 36.4 C L 71 20 146/77 H 96 Laboratory Results Laboratory Results - last 24 hr 02/08/19 02/08/19 02/09/19 16:32 20:17 05:43 WBC 6.35 RBC 3.11 L Hgb 9.2 L Hct 28.7 L MCV 92.3 MCH 29.6 MCHC 32.1 RDW Std Deviation 55.8 H RDW Coeff of Norbert 17.0 H Plt Count 244 MPV 8.7 Immature Gran % (Auto) 2.0 Neut % (Auto) 64.7 Lymph % (Auto) 16.4 [place] % (Auto) 12.9 Eos % (Auto) 3.1 Baso % (Auto) 0.9 Immature Gran # (Auto) 0.13 H Neut # (Auto) 4.10 Lymph # (Auto) 1.04 L [place] # (Auto) 0.82 H Eos # (Auto) 0.20 Baso # (Auto) 0.06 Sodium Potassium Chloride Carbon Dioxide Anion Gap BUN Creatinine Est Cr Clr Drug Dosing Est GFR ( Amer) Est GFR (Non-Af Amer) BUN/Creatinine Ratio Glucose POC Glucose 173 H 172 H Calcium 02/09/19 02/09/19 02/09/19 05:43 07:54 11:43 WBC RBC Hgb Hct MCV MCH MCHC RDW Std Deviation RDW Coeff of Norbert Plt Count MPV Immature Gran % (Auto) Neut % (Auto) Lymph % (Auto) [place] % (Auto) Eos % (Auto) Baso % (Auto) Immature Gran # (Auto) Neut # (Auto) Lymph # (Auto) [place] # (Auto) Eos # (Auto) Baso # (Auto) Sodium 138 Potassium 3.7 Chloride 102 Carbon Dioxide 30 Anion Gap 6.0 BUN 8 Creatinine 0.80 Est Cr Clr Drug Dosing 104.0 Est GFR ( Amer) 107.9 Est GFR (Non-Af Amer) 93.1 BUN/Creatinine Ratio 10.0 Glucose 109 H POC Glucose 127 H 160 H Calcium 8.3 L Microbiology 02/06/19 Unknown Foot,Left Gram Stain - Final 02/06/19 Unknown Foot,Left Aerobic and Anaerobic Culture - Preliminary Proteus mirabilis Staphylococcus aureus 01/31/19 01:08 Blood Aerobic Blood Culture - Final No growth in Aerobic bottle after 5 days. 01/31/19 01:08 Blood Anaerobic Blood Culture - Final 01/31/19 00:39 Blood Aerobic Blood Culture - Final No growth in Aerobic bottle after 5 days. 01/31/19 00:39 Blood Anaerobic Blood Culture - Final 01/31/19 00:42 Urine,Indwelling Cath Urine Culture - Final Klebsiella pneumoniae Medications Administered Current Inpatient Medications Hydrocodone Bitart/Acetaminophen (Drift 5/325) 1 tab PO Q4H PRN PRN Reason: Pain Stop: 02/16/19 10:46 Last Admin: 02/09/19 12:01 Dose: 1 tab Documented by: Aspirin (Ecotrin Ectab) [address] [facility] Stop: 03/09/19 17:59 Last Admin: 02/09/19 07:37 Dose: 81 mg Documented by: Atorvastatin Calcium (Lipitor) 40 [facility] [place] Stop: 03/09/19 13:59 Last Admin: 02/09/19 07:38 Dose: 40 mg Documented by: Clopidogrel Bisulfate (Plavix) 75 [facility] [place] Stop: 03/09/19 17:59 Last Admin: 02/09/19 07:38 Dose: 75 mg Documented by: Dextrose (Dextrose 50%) 25 - 50 ml IV UD PRN; Protocol PRN Reason: Hypoglycemia Protocol Stop: 03/05/19 12:59 Ferrous Sulfate (Feosol) 325 mg PO BID [facility] Stop: 03/05/19 09:59 Last Admin: 02/09/19 07:37 Dose: 325 mg Documented by: Finasteride (Proscar) 5 mg PO QAM [facility]AYLYNN Stop: 03/09/19 13:59 Last Admin: 02/09/19 07:37 Dose: 5 mg Documented by: Furosemide (Lasix) 20 mg PO QAM KAYLYNN Stop: 03/05/19 12:29 Last Admin: 02/09/19 07:36 Dose: 20 mg Documented by: Glucagon (Glucagen) 1 mg IM UD PRN; Protocol PRN Reason: Hypoglycemia Protocol Stop: 03/05/19 12:59 Glucose (Glucose 40%) 15 - 30 gm PO UD PRN; Protocol PRN Reason: Hypoglycemia Protocol Stop: 03/05/19 12:59 Glucose (Dex4 Glucose) 4 - 8 tabs PO UD PRN; Protocol PRN Reason: Hypoglycemia Protocol Stop: 03/05/19 12:59 Heparin Sodium (Beef Lung) (Heparin Sod 10 Unit/Ml Flush) 5 ml FLUSH PRN PRN PRN Reason: Flush Stop: 03/02/19 09:19 Last Admin: 02/09/19 09:43 Dose: 5 ml Documented by: Heparin Sodium (Porcine) (Heparin Sodium (Porcine)) 5,000 units SQ Q8H KAYLYNN Stop: 03/10/19 21:59 Last Admin: 02/09/19 13:44 Dose: 5,000 units Documented by: Piperacillin Sod/Tazobactam (Sod 4.5 gm/ Dextrose) 120 mls @ 30 mls/hr IV Q8H [facility]; Protocol Stop: 02/10/19 23:59 Last Admin: 02/09/19 13:44 Dose: 30 mls/hr Documented by: Insulin Aspart (Novolog Flexpen) 0 units SC ACHS [facility] Stop: 03/05/19 16:29 Last Admin: 02/09/19 12:30 Dose: 5 units Documented by: Lactobacillus Acidophilus (Floranex) 4 tab PO TIDM [facility] Stop: 03/05/19 07:59 Last Admin: 02/09/19 12:02 Dose: 4 tab Documented by: Lidocaine (Lidoderm 5%) 2 patch TD QAM [facility] Stop: 03/04/19 10:59 Last Admin: 02/09/19 07:36 Dose: 2 patch Documented by: Metoprolol Tartrate (Lopressor) 25 mg PO BID [facility] Stop: 03/07/19 08:59 Last Admin: 02/09/19 07:38 Dose: 25 mg Documented by: Miscellaneous (Remove Lidoderm Patch) 1 ea N/A DAILY@2100 [facility] Stop: 03/04/19 20:59 Last Admin: 02/08/19 21:03 Dose: 1 ea Documented by: Miscellaneous (Carbohydrates For Hypoglycemia) 15 - 30 gm PO UD PRN PRN Reason: Hypoglycemia Treatment Stop: 03/05/19 12:59 Miscellaneous Information (Consult) 1 ea N/A UD PRN PRN Reason: Consult Stop: 03/02/19 05:02 Naloxone HCl (Narcan) 0.1 mg IV Q5M PRN PRN Reason: Oversedation/Resp Depression Stop: 03/08/19 12:18 Ondansetron HCl (Zofran) 4 mg IV Q6H PRN PRN Reason: Nausea Stop: 03/07/19 10:11 Last Admin: 02/07/19 19:43 Dose: 4 mg Documented by: Pantoprazole Sodium (Protonix) 40 mg PO BID [facility] Stop: 03/05/19 09:59 Last Admin: 02/09/19 07:36 Dose: 40 mg Documented by: Potassium Chloride (Klor-Con M20) 40 meq PO QAM [facility] Stop: 03/06/19 11:44 Last Admin: 02/09/19 07:36 Dose: 40 meq Documented by: Quetiapine Fumarate (Seroquel) 37.5 mg PO HS [facility] Stop: 03/10/19 20:59 Last Admin: 02/08/19 21:02 Dose: 37.5 mg Documented by: PG Care Time/CCT Total # of Minutes Spent Total Time Spent with Patient: Total time spent is greater than 50% in coordination of care (as documented) at patient's floor/unit and/or counseling patient: (1) Osteomyelitis of foot Laterality: left Osteomyelitis type: unspecified type Qualified Code(s): M86.9 - Osteomyelitis, unspecified (2) Unstageable pressure ulcer of heel Laterality: left Qualified Code(s): L89.620 - Pressure ulcer of left heel, unstageable (3) Coronary artery disease Coronary Disease-Associated Artery/Lesion type: [place] artery [place] vs. transplanted heart: [place] heart Associated angina: without angina Qualified Code(s): I25.10 - Atherosclerotic heart disease of [place] coronary artery without angina pectoris
[2019-02-09] MEDS: QUETIAPINE FUMARATE 25 MG TABLET PO SCH (20:26)
[2019-02-09] MEDS ORDERED: HALOPERIDOL LACTATE 5 MG/ML 1 ML VIAL IM STA (23:38)
[2019-02-10] MEDS: HYDROCODONE/ACETAMOPHEN 5/325MG TAB PO PRN ×4 (00:05→19:31)
[2019-02-10] MEDS: PIPERACILLIN/TAZOBACTAM 4.5 GM in DEXTROSE 5% 100 ML IV SCH ×3 (05:59→21:27)
[2019-02-10] MEDS: HEPARIN SOD 5,000 UNIT/0.5 ML VIAL SQ SCH ×3 (05:59→21:27)
[2019-02-10] MEDS ORDERED: HYDROmorphone INJ 0.5 MG/0.5 ML SYR IV STA (07:44)
[2019-02-10] MEDS: INSULIN ASPART 100 UNITS/ML 3 ML PEN SC SCH ×4 (08:09→21:28)
[2019-02-10] MEDS: LACTOBACILLUS ACIDOPHILUS (FLORANEX) TAB PO SCH ×3 (08:13→18:32)
[2019-02-10] MEDS: LOSARTAN POTASSIUM 25 MG TAB PO SCH (08:14)
[2019-02-10] MEDS: ASPIRIN 81 MG ECTAB PO SCH (08:14)
[2019-02-10] MEDS: POTASSIUM CHLORIDE 20 MEQ TABCR PO SCH (08:15)
[2019-02-10] MEDS: FERROUS SULFATE 325 MG TAB PO SCH ×2 (08:15→19:33)
[2019-02-10] MEDS: FUROSEMIDE 20 MG TAB PO SCH (08:16)
[2019-02-10] MEDS: ATORVASTATIN 40 MG TAB PO SCH (08:16)
[2019-02-10] MEDS: CLOPIDOGREL BISULFATE 75 MG TAB PO SCH (08:17)
[2019-02-10] MEDS: METOPROLOL TARTRATE 25 MG TAB PO SCH ×2 (08:17→19:34)
[2019-02-10] MEDS: PANTOprazole 40 MG TAB PO SCH ×2 (08:18→19:35)
[2019-02-10] MEDS: FINASTERIDE 5 MG TAB PO SCH (08:18)
[2019-02-10] MEDS: LIDOCAINE 5% 1 PATCH TD SCH (08:19)
[2019-02-10] MEDS: ONDANSETRON INJ 2 MG/ML 2 ML VIAL IV PRN (11:41)
--- NOTE | 2019-02-10 13:43 | Orthopedic Progress Note ---
Date of Service February 10, 2019 Assessment & Plan (1) Osteomyelitis of foot: 68 yo male POD #4 s/p left heel I&D, debridement calcaneal osteo, Proteus and MRSA on culture 1. Med management- pt on IV Zosyn, consider adding Dapto to cover MRSA 2. DVT prophylaxis 3. D/C planning Subjective Pt sitting in bed, appears comfortable, denies complaints Physical Exam Physical Exam: Left heel dressing changed, minimal drainage, no erythema, heel with necrotic eschar Results & Data Vital Signs (Past 12 Hours) Vital Signs Temp Pulse Resp BP Pulse Ox 02/10/19 07:31 36.9 C 73 18 131/76 98 Laboratory Results 02/10/19 02/10/19 02/09/19 Range/Units 12:00 07:58 20:27 POC Glucose 135 H 146 H 247 H (70-99) 02/09/19 Range/Units 16:52 POC Glucose 188 H (70-99) (1) Osteomyelitis of foot Laterality: left Osteomyelitis type: unspecified type Qualified Code(s): M86.9 - Osteomyelitis, unspecified
--- NOTE | 2019-02-10 14:25 | Infectious Disease Progress Nt ---
Date of Service February 10, 2019 Assessment & Plan (1) Osteomyelitis of foot: 68-year-old male admitted with sepsis with evidence of osteomyelitis of the left heel in the setting of large ulcer, as well as Klebsiella urinary tract infection. Now status post surgical debridement. Cultures with Proteus and MRSA, daptomycin added for MRSA coverage. Will continue to follow. (2) Acute UTI: (3) Klebsiella infection: Subjective Pt sitting in bed, appears comfortable, denies complaints. Remains afebrile. Foot pain controlled. Cultures growing Proteus and MRSA. Review of Systems Review of Systems: All systems reviewed & are unremarkable except as noted in HPI & below Physical Exam Constitutional: + ill appearing and + altered mental status; no acute distress Eyes: PERRL, conjunctivae normal, anicteric sclerae ENMT: external ear and nose normal, oropharynx normal Neck: trachea midline, no thyromegaly neck nontender Respiratory: normal respiratory effort, lungs clear to auscultation normal percussion; does not use accessory muscles Cardiovascular: Rate/Rhythm: regular rate and regular rhythm Heart Sounds: normal S1 and normal S2; no gallop, no murmur and no cardiac rub Vessels: normal peripheral pulses; no JVD Gastrointestinal (Abdomen): normal bowel sounds, soft, nontender, no hepatosplenomegaly Musculoskeletal: no cyanosis or clubbing, extremities motor strength 5/5 Spine: thoracic spine normal to inspection and lumbar spine normal to inspection; no cervical spinal tenderness Skin: normal turgor and + wound (Dressing intact); no rashes Neurologic: moves all extremities, awake and + confused; no focal motor deficits and no meningeal signs Psychiatric: Orientation: alert, oriented to person and cooperative Lymphatic: no cervical or axillary lymphadenopathy no inguinal lymphadenopathy Results & Data Vital Signs (Past 12 Hours) Vital Signs Temp Pulse Resp BP Pulse Ox 02/10/19 07:31 36.9 C 73 18 131/76 98 Laboratory Results Laboratory Results - last 48 hr 02/08/19 02/08/19 02/09/19 16:32 20:17 05:43 WBC 6.35 RBC 3.11 L Hgb 9.2 L Hct 28.7 L MCV 92.3 MCH 29.6 MCHC 32.1 RDW Std Deviation 55.8 H RDW Coeff of Norbert 17.0 H Plt Count 244 MPV 8.7 Immature Gran % (Auto) 2.0 Neut % (Auto) 64.7 Lymph % (Auto) 16.4 [place] % (Auto) 12.9 Eos % (Auto) 3.1 Baso % (Auto) 0.9 Immature Gran # (Auto) 0.13 H Neut # (Auto) 4.10 Lymph # (Auto) 1.04 L [place] # (Auto) 0.82 H Eos # (Auto) 0.20 Baso # (Auto) 0.06 Sodium Potassium Chloride Carbon Dioxide Anion Gap BUN Creatinine Est Cr Clr Drug Dosing Est GFR ( Amer) Est GFR (Non-Af Amer) BUN/Creatinine Ratio Glucose POC Glucose 173 H 172 H Calcium 02/09/19 02/09/19 02/09/19 05:43 07:54 11:43 WBC RBC Hgb Hct MCV MCH MCHC RDW Std Deviation RDW Coeff of Norbert Plt Count MPV Immature Gran % (Auto) Neut % (Auto) Lymph % (Auto) [place] % (Auto) Eos % (Auto) Baso % (Auto) Immature Gran # (Auto) Neut # (Auto) Lymph # (Auto) [place] # (Auto) Eos # (Auto) Baso # (Auto) Sodium 138 Potassium 3.7 Chloride 102 Carbon Dioxide 30 Anion Gap 6.0 BUN 8 Creatinine 0.80 Est Cr Clr Drug Dosing 104.0 Est GFR ( Amer) 107.9 Est GFR (Non-Af Amer) 93.1 BUN/Creatinine Ratio 10.0 Glucose 109 H POC Glucose 127 H 160 H Calcium 8.3 L 02/09/19 02/09/19 02/10/19 16:52 20:27 07:58 WBC RBC Hgb Hct MCV MCH MCHC RDW Std Deviation RDW Coeff of Norbert Plt Count MPV Immature Gran % (Auto) Neut % (Auto) Lymph % (Auto) [place] % (Auto) Eos % (Auto) Baso % (Auto) Immature Gran # (Auto) Neut # (Auto) Lymph # (Auto) [place] # (Auto) Eos # (Auto) Baso # (Auto) Sodium Potassium Chloride Carbon Dioxide Anion Gap BUN Creatinine Est Cr Clr Drug Dosing Est GFR ( Amer) Est GFR (Non-Af Amer) BUN/Creatinine Ratio Glucose POC Glucose 188 H 247 H 146 H Calcium 02/10/19 12:00 WBC RBC Hgb Hct MCV MCH MCHC RDW Std Deviation RDW Coeff of Norbert Plt Count MPV Immature Gran % (Auto) Neut % (Auto) Lymph % (Auto) [place] % (Auto) Eos % (Auto) Baso % (Auto) Immature Gran # (Auto) Neut # (Auto) Lymph # (Auto) [place] # (Auto) Eos # (Auto) Baso # (Auto) Sodium Potassium Chloride Carbon Dioxide Anion Gap BUN Creatinine Est Cr Clr Drug Dosing Est GFR ( Amer) Est GFR (Non-Af Amer) BUN/Creatinine Ratio Glucose POC Glucose 135 H Calcium Diagnostic Findings Microbiology 02/06/19 Unknown Foot,Left Gram Stain - Final 02/06/19 Unknown Foot,Left Aerobic and Anaerobic Culture - Preliminary Proteus mirabilis Staph aureus MRSA 01/31/19 01:08 Blood Aerobic Blood Culture - Final No growth in Aerobic bottle after 5 days. 01/31/19 01:08 Blood Anaerobic Blood Culture - Final 01/31/19 00:39 Blood Aerobic Blood Culture - Final No growth in Aerobic bottle after 5 days. 01/31/19 00:39 Blood Anaerobic Blood Culture - Final 01/31/19 00:42 Urine,Indwelling Cath Urine Culture - Final Klebsiella pneumoniae PG Care Time/CCT Total # of Minutes Spent Total Time Spent with Patient: Total time spent is greater than 50% in coordination of care (as documented) at patient's floor/unit and/or counseling patient: (1) Osteomyelitis of foot Laterality: left Osteomyelitis type: unspecified type Qualified Code(s): M86.9 - Osteomyelitis, unspecified
[2019-02-10] MEDS ORDERED: DAPTOmycin 500 MG VIAL IV SCH (14:30)
--- NOTE | 2019-02-10 15:40 | Hospitalist Progress Note ---
Date of Service February 10, 2019 Assessment & Plan (1) Severe sepsis: due to klebsiella UTI and left heel ulcer/osteomyelitis (Proteus and MRSA) sepsis resolved. had been on vanco/zosyn since admission - mainly to cover heel and osteomyelitis while awaiting intra-op cultures. intra-op culture grew proteus in moderate amount, S aureus rare Proteus sensitive to Zosyn MRSA today, started on Daptomycin ID following, will touch base with them about final plan, anticipate needed 4-6 weeks of antibiotics blood cultures were negative earlier this admission. (2) Acute UTI: catheter-associated/luna-associated/complicated UTI. 2nd to klebsiella. clinically resolved. has grown klebsiella multiple times this year. ideally needs MAINE to r/o chronic prostatitis; however he likely will be on prolonged IV/PO antibiotic course for the left foot osteomyelitis and thus that antibiotic course would suffice if he indeed had prostatitis. consider luna exchange prior to discharge (3) Osteomyelitis of foot: POD #4 s/p debridement by Dr Guillermo of left heel ulcer/osteo. appreciate ortho, ID, cardiology, wound care consults. intra-op culture - proteus and MRSA continue zosyn, Daptomycin added Dr Ndiaye following cont probiotics. stable, doing well; non weight bearing to left leg/foot however patient rarely, if at all, bears weight. (4) Pressure ulcer of left heel, stage 4: present on admission left foot appreciate wound care consultation, ID, ortho s/p arteriogram by Dr Larose - adequate arterial circulation; no intervention done s/p left heel ulcer debridement, cultures, bone debridement, placement of abx beads, etc by Dr Guillermo - POD #4 continue wound care after discharge waffle boots in place (5) Metabolic encephalopathy: resolved today, alert and oriented x 3, asking appropriate questions about care, discussing food options placed ativan on his "allergy list." AVOID BENZOS. cont seroquel HS. increased seroquel to 37.5mg HS on 02/08 he has also taken depakote 250mg BID since October or November of this year; records suggest it was for behavior/delirium. He had not had this medication for most of this stay and seroquel seems to have been adequate for controlling the delirium. Thus, will stop the depakote and simply use seroquel HS . (6) C. difficile colitis: history of such no active disease, some loose stools but nothing to suggest C diff colitis placed on probiotics in face of broad-spectrum abx (7) Lumbar stenosis with neurogenic claudication: s/p multiple surgeries and I/D for epidural abscess in past pain largely controlled cont norco prn, etc if pain was to worsen, if leukocytosis returns, etc low threshold for back imaging (8) Coronary artery disease: elevated troponin was likely demand ischemia in setting of severe sepsis at time of admission resumed asa and plavix 02/07/19 cont beta angy cont statin (9) Ischemic cardiomyopathy: compensated echo 11/2018 with EF 25-30% cont metoprolol 25 BID (convert to succinate before d/c) cont lasix 20mg daily resume Losartan 25mg (10) Stage III chronic kidney disease: Cr stable BMP am (11) Uncontrolled type 2 diabetes mellitus with neurologic complication, with long-term current use of insulin: control adequate at this time cont BSGs ac/hs and novolog sliding scale (12) Anemia in chronic illness: s/p 1 unit PRBCs 3 days ago H/H stable since then stool heme negative Hb 9 today (13) PAD (peripheral artery disease): left leg s/p arteriogram by Dr Larose this admission - adequate blood flow to left foot during that a-gram resumed lipitor resumed asa/plavix (14) Arm edema: right arm (has PICC in this arm) doppler neg for DVT cont to follow (15) DVT prophylaxis: heparin SC TID cont PT/OT anticipate d/c to SNF by end of the week Subjective patient alert and oriented, doing well today some increased back pain this morning, relieved with a dose of Dilaudid says he always has back pain eating well today, moving bowels, luna in place reviewed culture results, MRSA now growing in addition to the Proteus discussed with Dr. Ndiaye, placed on Daptomycin IV updated patient's over the phone about the MRSA finding will need prolonged course of IV antibiotics, will need to return to [facility] updated case management, they are aware of plan, will contact [facility] Review of Systems Review of Systems: All systems reviewed & are unremarkable except as noted in HPI & below Constitutional: + weakness; no fever Respiratory: no cough and no dyspnea Cardiovascular: no chest pain Gastrointestinal: no abdominal pain, no nausea, no vomiting, no constipation and no diarrhea/loose stools Musculoskeletal: + back pain Physical Exam Constitutional: WD/WN, vitals as above Eyes: PERRL, conjunctivae normal, anicteric sclerae ENMT: external ear and nose normal, oropharynx normal Neck: trachea midline, no thyromegaly Respiratory: normal respiratory effort, lungs clear to auscultation Auscultation: + diminished lung sounds (bases) Cardiovascular: RRR, no murmur, no edema Gastrointestinal (Abdomen): normal bowel sounds, soft, nontender, no hepatosplenomegaly Musculoskeletal: Head/Neck/Chest: normocephalic and head atraumatic Spine: + limited thoraco-lumbar ROM (pain, weakness) Extremities: + abnormal strength (weakness in legs bilaterally, cannot transfer or ambulate) Skin: no rashes, warm and dry + wound (heel ulcer) Neurologic: patellar DTR's 2+ bilat, sensation intact and PERRL, EOMI, accommodation nl, no face palsy, no dysarthria Psychiatric: Orientation: alert and oriented x 3 Lymphatic: no cervical or axillary lymphadenopathy Results & Data Vital Signs (Past 12 Hours) Vital Signs Temp Pulse Pulse Resp BP BP Pulse Ox 02/10/19 15:28 36.4 C L 72 18 102/65 98 02/10/19 07:31 36.9 C 73 18 131/76 98 Laboratory Results Laboratory Results - last 24 hr 02/09/19 02/09/19 02/10/19 16:52 20:27 07:58 POC Glucose 188 H 247 H 146 H 02/10/19 12:00 POC Glucose 135 H Medications Administered Current Inpatient Medications Hydrocodone Bitart/Acetaminophen ([place] 5/325) 1 tab PO Q4H PRN PRN Reason: Pain Stop: 02/16/19 10:46 Last Admin: 02/10/19 15:27 Dose: 1 tab Documented by: Aspirin (Ecotrin Ectab) 81 mg PO [facility] Stop: 03/09/19 17:59 Last Admin: 02/10/19 08:14 Dose: 81 mg Documented by: Clopidogrel Bisulfate (Plavix) 75 mg PO QAM [facility] Stop: 03/09/19 17:59 Last Admin: 02/10/19 08:17 Dose: 75 mg Documented by: Dextrose (Dextrose 50%) 25 - 50 ml IV UD PRN; Protocol PRN Reason: Hypoglycemia Protocol Stop: 03/05/19 12:59 Ferrous Sulfate (Feosol) 325 mg PO BID [facility] Stop: 03/05/19 09:59 Last Admin: 02/10/19 08:15 Dose: 325 mg Documented by: Finasteride (Proscar) 5 mg PO QAM [facility] Stop: 03/09/19 13:59 Last Admin: 02/10/19 08:18 Dose: 5 mg Documented by: Furosemide (Lasix) 20 mg PO QAM [facility] Stop: 03/05/19 12:29 Last Admin: 02/10/19 08:16 Dose: 20 mg Documented by: Glucagon (Glucagen) 1 mg IM UD PRN; Protocol PRN Reason: Hypoglycemia Protocol Stop: 03/05/19 12:59 Glucose (Glucose 40%) 15 - 30 gm PO UD PRN; Protocol PRN Reason: Hypoglycemia Protocol Stop: 03/05/19 12:59 Glucose (Dex4 Glucose) 4 - 8 tabs PO UD PRN; Protocol PRN Reason: Hypoglycemia Protocol Stop: 03/05/19 12:59 Heparin Sodium (Beef Lung) (Heparin Sod 10 Unit/Ml Flush) 5 ml FLUSH PRN PRN PRN Reason: Flush Stop: 03/02/19 09:19 Last Admin: 02/10/19 09:48 Dose: 5 ml Documented by: Heparin Sodium (Porcine) (Heparin Sodium (Porcine)) 5,000 units SQ Q8H [facility] Stop: 03/10/19 21:59 Last Admin: 02/10/19 12:57 Dose: 5,000 units Documented by: Piperacillin Sod/Tazobactam (Sod 4.5 gm/ Dextrose) 120 mls @ 30 mls/hr IV Q8H [facility]; Protocol Stop: 03/14/19 09:59 Last Admin: 02/10/19 13:09 Dose: 28.8 mls/hr Documented by: Daptomycin 400 mg/ Syringe 8 mls @ 4 mls/min IV Q24H [facility]; Protocol Stop: 03/24/19 15:59 Insulin Aspart (Novolog Flexpen) 0 units SC ACHS [facility] Stop: 03/05/19 16:29 Last Admin: 02/10/19 12:57 Dose: 3 units Documented by: Lactobacillus Acidophilus (Floranex) 4 tab PO TIDM [facility] Stop: 03/05/19 07:59 Last Admin: 02/10/19 12:59 Dose: 4 tab Documented by: Lidocaine (Lidoderm 5%) 2 patch TD QAM [facility] Stop: 03/04/19 10:59 Last Admin: 02/10/19 08:19 Dose: 2 patch Documented by: Losartan Potassium (Cozaar) 25 mg PO QAM [facility] Stop: 03/12/19 08:59 Last Admin: 02/10/19 08:14 Dose: 25 mg Documented by: Metoprolol Tartrate (Lopressor) 25 mg PO BID [facility] Stop: 03/07/19 08:59 Last Admin: 02/10/19 08:17 Dose: 25 mg Documented by: Miscellaneous (Remove Lidoderm Patch) 1 ea N/A DAILY@2100 [facility] Stop: 03/04/19 20:59 Last Admin: 02/09/19 20:30 Dose: 1 ea Documented by: Miscellaneous (Carbohydrates For Hypoglycemia) 15 - 30 gm PO UD PRN PRN Reason: Hypoglycemia Treatment Stop: 03/05/19 12:59 Miscellaneous Information (Consult) 1 ea N/A UD PRN PRN Reason: Consult Stop: 03/02/19 05:02 Naloxone HCl (Narcan) 0.1 mg IV Q5M PRN PRN Reason: Oversedation/Resp Depression Stop: 03/08/19 12:18 Ondansetron HCl (Zofran) 4 mg IV Q6H PRN PRN Reason: Nausea Stop: 03/07/19 10:11 Last Admin: 02/10/19 11:41 Dose: 4 mg Documented by: Pantoprazole Sodium (Protonix) 40 mg PO BID [facility] Stop: 03/05/19 09:59 Last Admin: 02/10/19 08:18 Dose: 40 mg Documented by: Potassium Chloride (Klor-Con M20) 40 meq PO QAM [facility] Stop: 03/06/19 11:44 Last Admin: 02/10/19 08:15 Dose: 40 meq Documented by: Quetiapine Fumarate (Seroquel) 37.5 mg PO HS [facility] Stop: 03/10/19 20:59 Last Admin: 02/09/19 20:26 Dose: 37.5 mg Documented by: PG Care Time/CCT Total # of Minutes Spent Total Time Spent with Patient: Total time spent is greater than 50% in coordination of care (as documented) at patient's floor/unit and/or counseling patient: (1) Coronary artery disease Associated angina: without angina Coronary Disease-Associated Artery/Lesion type: [place] artery [place] vs. transplanted heart: [place] heart Qualified Code(s): I25.10 - Atherosclerotic heart disease of [place] coronary artery without angina pectoris (2) Osteomyelitis of foot Laterality: left Osteomyelitis type: unspecified type Qualified Code(s): M86.9 - Osteomyelitis, unspecified
[2019-02-10] MEDS: DAPTOmycin 400 MG in SYRINGE 0 ML IV SCH (17:05)
[2019-02-10] MEDS: QUETIAPINE FUMARATE 25 MG TABLET PO SCH (19:35)
[2019-02-11] MEDS: HYDROCODONE/ACETAMOPHEN 5/325MG TAB PO PRN ×4 (00:52→19:26)
[2019-02-11] MEDS: HEPARIN SOD 5,000 UNIT/0.5 ML VIAL SQ SCH ×3 (06:36→22:10)
[2019-02-11] MEDS: PIPERACILLIN/TAZOBACTAM 4.5 GM in DEXTROSE 5% 100 ML IV SCH ×3 (06:36→22:20)
[2019-02-11] MEDS: LOSARTAN POTASSIUM 25 MG TAB PO SCH (07:31)
[2019-02-11] MEDS: LACTOBACILLUS ACIDOPHILUS (FLORANEX) TAB PO SCH ×3 (07:31→18:08)
[2019-02-11] MEDS: LIDOCAINE 5% 1 PATCH TD SCH (07:32)
[2019-02-11] MEDS: FERROUS SULFATE 325 MG TAB PO SCH ×2 (07:32→22:08)
[2019-02-11] MEDS: FUROSEMIDE 20 MG TAB PO SCH (07:32)
[2019-02-11] MEDS: ASPIRIN 81 MG ECTAB PO SCH (07:32)
[2019-02-11] MEDS: POTASSIUM CHLORIDE 20 MEQ TABCR PO SCH (07:32)
[2019-02-11] MEDS: PANTOprazole 40 MG TAB PO SCH ×2 (07:33→22:08)
[2019-02-11] MEDS: CLOPIDOGREL BISULFATE 75 MG TAB PO SCH (07:33)
[2019-02-11] MEDS: METOPROLOL TARTRATE 25 MG TAB PO SCH ×2 (07:33→22:08)
[2019-02-11] MEDS: FINASTERIDE 5 MG TAB PO SCH (07:33)
[2019-02-11] MEDS: INSULIN ASPART 100 UNITS/ML 3 ML PEN SC SCH ×4 (09:15→22:09)
[2019-02-11] MEDS: ONDANSETRON INJ 2 MG/ML 2 ML VIAL IV PRN (10:51)
[2019-02-11] MEDS: DAPTOmycin 400 MG in SYRINGE 0 ML IV SCH (15:49)
--- NOTE | 2019-02-11 17:35 | Hospitalist Progress Note ---
Date of Service February 11, 2019 Assessment & Plan (1) Severe sepsis: due to klebsiella UTI and left heel ulcer/osteomyelitis (Proteus and MRSA) sepsis resolved. had been on vanco/zosyn since admission - mainly to cover heel and osteomyelitis while awaiting intra-op cultures. intra-op culture grew proteus in moderate amount, S aureus rare Proteus sensitive to Zosyn MRSA - will use Vanco on discharge due to cost issues with Daptomycin ID following, will touch base with them about final plan, anticipate needed 4-6 weeks of antibiotics blood cultures were negative earlier this admission. (2) Acute UTI: catheter-associated/luna-associated/complicated UTI. 2nd to klebsiella. clinically resolved. has grown klebsiella multiple times this year. ideally needs MAINE to r/o chronic prostatitis; however he likely will be on prolonged IV/PO antibiotic course for the left foot osteomyelitis and thus that antibiotic course would suffice if he indeed had prostatitis. consider luna exchange prior to discharge (3) Osteomyelitis of foot: POD #4 s/p debridement by Dr Guillermo of left heel ulcer/osteo. appreciate ortho, ID, cardiology, wound care consults. intra-op culture - proteus and MRSA continue zosyn, Daptomycin added Dr Ndiaye following cont probiotics. stable, doing well; non weight bearing to left leg/foot however patient rarely, if at all, bears weight. (4) Pressure ulcer of left heel, stage 4: present on admission left foot appreciate wound care consultation, ID, ortho s/p arteriogram by Dr Larose - adequate arterial circulation; no intervention done s/p left heel ulcer debridement, cultures, bone debridement, placement of abx beads, etc by Dr Guillermo - POD #4 continue wound care after discharge waffle boots in place (5) Metabolic encephalopathy: resolved today, alert and oriented x 3, asking appropriate questions about care, discussing food options placed ativan on his "allergy list." AVOID BENZOS. cont seroquel HS. increased seroquel to 37.5mg HS on 02/08 he has also taken depakote 250mg BID since October or November of this year; records suggest it was for behavior/delirium. He had not had this medication for most of this stay and seroquel seems to have been adequate for controlling the delirium. Thus, will stop the depakote and simply use seroquel HS . (6) C. difficile colitis: history of such no active disease, some loose stools but nothing to suggest C diff colitis placed on probiotics in face of broad-spectrum abx (7) Lumbar stenosis with neurogenic claudication: s/p multiple surgeries and I/D for epidural abscess in past pain largely controlled cont norco prn, etc if pain was to worsen, if leukocytosis returns, etc low threshold for back imaging (8) Coronary artery disease: elevated troponin was likely demand ischemia in setting of severe sepsis at time of admission resumed asa and plavix 02/07/19 cont beta angy cont statin (9) Ischemic cardiomyopathy: compensated echo 11/2018 with EF 25-30% cont metoprolol 25 BID (convert to succinate before d/c) cont lasix 20mg daily resume Losartan 25mg (10) Stage III chronic kidney disease: Cr stable BMP am (11) Uncontrolled type 2 diabetes mellitus with neurologic complication, with long-term current use of insulin: control adequate at this time cont BSGs ac/hs and novolog sliding scale (12) Anemia in chronic illness: s/p 1 unit PRBCs 3 days ago H/H stable since then stool heme negative Hb 9 today (13) PAD (peripheral artery disease): left leg s/p arteriogram by Dr Larose this admission - adequate blood flow to left foot during that a-gram resumed lipitor resumed asa/plavix (14) Arm edema: right arm (has PICC in this arm) doppler neg for DVT cont to follow (15) DVT prophylaxis: heparin SC TID cont PT/OT anticipate d/c to SNF by end of the week Subjective no issues today d/w CM, Daptomycin would be too expensive for [place] can use Vancomycin because he would likely not be able to go anywhere else patient eating well, alert and oriented, no chest pain, no dyspnea no fever or chills Review of Systems Review of Systems: All systems reviewed & are unremarkable except as noted in HPI & below Musculoskeletal: + back pain (intermittent, better today) Physical Exam Constitutional: WD/WN, vitals as above Eyes: PERRL, conjunctivae normal, anicteric sclerae ENMT: external ear and nose normal, oropharynx normal Neck: trachea midline, no thyromegaly Respiratory: normal respiratory effort, lungs clear to auscultation Auscultation: + diminished lung sounds (bases) Cardiovascular: RRR, no murmur, no edema Gastrointestinal (Abdomen): normal bowel sounds, soft, nontender, no hepatosplenomegaly Musculoskeletal: Head/Neck/Chest: normocephalic and head atraumatic Spine: + limited thoraco-lumbar ROM (pain, weakness) Extremities: + abnormal strength (weakness in legs bilaterally, cannot transfer or ambulate) Skin: no rashes, warm and dry + wound (heel ulcer) Neurologic: patellar DTR's 2+ bilat, sensation intact and PERRL, EOMI, accommodation nl, no face palsy, no dysarthria Psychiatric: Orientation: alert and oriented x 3 Lymphatic: no cervical or axillary lymphadenopathy Results & Data Vital Signs (Past 12 Hours) Vital Signs Temp Pulse Pulse Resp BP Pulse Ox 02/11/19 15:01 37.0 C 67 18 117/70 97 02/11/19 07:07 36.8 C 74 20 123/71 98 Laboratory Results Laboratory Results - last 24 hr 02/10/19 02/11/19 02/11/19 20:02 07:56 11:55 POC Glucose 253 H 126 H 138 H 02/11/19 16:42 POC Glucose 131 H Medications Administered Current Inpatient Medications Hydrocodone Bitart/Acetaminophen ([place] 5/325) 1 tab PO Q4H PRN PRN Reason: Pain Stop: 02/16/19 10:46 Last Admin: 02/11/19 19:26 Dose: 1 tab Documented by: Aspirin (Ecotrin Ectab) 81 mg PO [facility] Stop: 03/09/19 17:59 Last Admin: 02/11/19 07:32 Dose: 81 mg Documented by: Clopidogrel Bisulfate (Plavix) 75 mg PO QAM [facility] Stop: 03/09/19 17:59 Last Admin: 02/11/19 07:33 Dose: 75 mg Documented by: Dextrose (Dextrose 50%) 25 - 50 ml IV UD PRN; Protocol PRN Reason: Hypoglycemia Protocol Stop: 03/05/19 12:59 Ferrous Sulfate (Feosol) 325 mg PO BID [facility] Stop: 03/05/19 09:59 Last Admin: 02/11/19 07:32 Dose: 325 mg Documented by: Finasteride (Proscar) 5 mg PO QAM [facility] Stop: 03/09/19 13:59 Last Admin: 02/11/19 07:33 Dose: 5 mg Documented by: Furosemide (Lasix) 20 mg PO QAM [facility] Stop: 03/05/19 12:29 Last Admin: 02/11/19 07:32 Dose: 20 mg Documented by: Glucagon (Glucagen) 1 mg IM UD PRN; Protocol PRN Reason: Hypoglycemia Protocol Stop: 03/05/19 12:59 Glucose (Glucose 40%) 15 - 30 gm PO UD PRN; Protocol PRN Reason: Hypoglycemia Protocol Stop: 03/05/19 12:59 Glucose (Dex4 Glucose) 4 - 8 tabs PO UD PRN; Protocol PRN Reason: Hypoglycemia Protocol Stop: 03/05/19 12:59 Heparin Sodium (Beef Lung) (Heparin Sod 10 Unit/Ml Flush) 5 ml FLUSH PRN PRN PRN Reason: Flush Stop: 03/02/19 09:19 Last Admin: 02/11/19 10:51 Dose: 5 ml Documented by: Heparin Sodium (Porcine) (Heparin Sodium (Porcine)) 5,000 units SQ Q8H [facility] Stop: 03/10/19 21:59 Last Admin: 02/11/19 13:40 Dose: 5,000 units Documented by: Piperacillin Sod/Tazobactam (Sod 4.5 gm/ Dextrose) 120 mls @ 30 mls/hr IV Q8H [facility]; Protocol Stop: 03/14/19 09:59 Last Infusion: 02/11/19 17:55 Dose: Infused Documented by: Daptomycin 400 mg/ Syringe 8 mls @ 4 mls/min IV Q24H [facility]; Protocol Stop: 03/24/19 15:59 Last Admin: 02/11/19 15:49 Dose: 4 mls/min Documented by: Insulin Aspart (Novolog Flexpen) 0 units SC ACHS [facility] Stop: 03/05/19 16:29 Last Admin: 02/11/19 18:03 Dose: 6 units Documented by: Lactobacillus Acidophilus (Floranex) 4 tab PO TIDM [facility] Stop: 03/05/19 07:59 Last Admin: 02/11/19 18:08 Dose: 4 tab Documented by: Lidocaine (Lidoderm 5%) 2 patch TD QAM [facility] Stop: 03/04/19 10:59 Last Admin: 02/11/19 07:32 Dose: 2 patch Documented by: Losartan Potassium (Cozaar) 25 mg PO QAM [facility] Stop: 03/12/19 08:59 Last Admin: 02/11/19 07:31 Dose: 25 mg Documented by: Metoprolol Tartrate (Lopressor) 25 mg PO BID [facility] Stop: 03/07/19 08:59 Last Admin: 02/11/19 07:33 Dose: 25 mg Documented by: Miscellaneous (Remove Lidoderm Patch) 1 ea N/A DAILY@2100 [facility] Stop: 03/04/19 20:59 Last Admin: 02/10/19 21:28 Dose: 1 ea Documented by: Miscellaneous (Carbohydrates For Hypoglycemia) 15 - 30 gm PO UD PRN PRN Reason: Hypoglycemia Treatment Stop: 03/05/19 12:59 Miscellaneous Information (Consult) 1 ea N/A UD PRN PRN Reason: Consult Stop: 03/02/19 05:02 Naloxone HCl (Narcan) 0.1 mg IV Q5M PRN PRN Reason: Oversedation/Resp Depression Stop: 03/08/19 12:18 Ondansetron HCl (Zofran) 4 mg IV Q6H PRN PRN Reason: Nausea Stop: 03/07/19 10:11 Last Admin: 02/11/19 10:51 Dose: 4 mg Documented by: Pantoprazole Sodium (Protonix) 40 mg PO BID [facility] Stop: 03/05/19 09:59 Last Admin: 02/11/19 07:33 Dose: 40 mg Documented by: Potassium Chloride (Klor-Con M20) 40 meq PO QAM [facility] Stop: 03/06/19 11:44 Last Admin: 02/11/19 07:32 Dose: 40 meq Documented by: Quetiapine Fumarate (Seroquel) 37.5 mg PO HS [facility] Stop: 03/10/19 20:59 Last Admin: 02/10/19 19:35 Dose: 37.5 mg Documented by: PG Care Time/CCT Total # of Minutes Spent Total Time Spent with Patient: Total time spent is greater than 50% in coordination of care (as documented) at patient's floor/unit and/or counseling patient: (1) Coronary artery disease Associated angina: without angina Coronary Disease-Associated Artery/Lesion type: [place] artery [place] vs. transplanted heart: [place] heart Qualified Code(s): I25.10 - Atherosclerotic heart disease of [place] coronary artery without angina pectoris (2) Osteomyelitis of foot Laterality: left Osteomyelitis type: unspecified type Qualified Code(s): M86.9 - Osteomyelitis, unspecified
[2019-02-11] MEDS: QUETIAPINE FUMARATE 25 MG TABLET PO SCH (22:08)
[2019-02-12] MEDS: HYDROCODONE/ACETAMOPHEN 5/325MG TAB PO PRN ×4 (02:36→15:14)
[2019-02-12] MEDS: PIPERACILLIN/TAZOBACTAM 4.5 GM in DEXTROSE 5% 100 ML IV SCH ×2 (06:13→13:46)
[2019-02-12] MEDS: HEPARIN SOD 5,000 UNIT/0.5 ML VIAL SQ SCH ×2 (06:14→13:45)
[2019-02-12 06:24] LABS: Est GFR (African American) 91.6
[2019-02-12] MEDS: LACTOBACILLUS ACIDOPHILUS (FLORANEX) TAB PO SCH ×2 (08:16→12:10)
[2019-02-12] MEDS: POTASSIUM CHLORIDE 20 MEQ TABCR PO SCH (08:17)
[2019-02-12] MEDS: FINASTERIDE 5 MG TAB PO SCH (08:17)
[2019-02-12] MEDS: LOSARTAN POTASSIUM 25 MG TAB PO SCH (08:17)
[2019-02-12] MEDS: ASPIRIN 81 MG ECTAB PO SCH (08:17)
[2019-02-12] MEDS: CLOPIDOGREL BISULFATE 75 MG TAB PO SCH (08:17)
[2019-02-12] MEDS: PANTOprazole 40 MG TAB PO SCH (08:17)
[2019-02-12] MEDS: FUROSEMIDE 20 MG TAB PO SCH (08:18)
[2019-02-12] MEDS: METOPROLOL TARTRATE 25 MG TAB PO SCH (08:18)
[2019-02-12] MEDS: LIDOCAINE 5% 1 PATCH TD SCH (08:19)
[2019-02-12] MEDS: INSULIN ASPART 100 UNITS/ML 3 ML PEN SC SCH ×2 (08:26→12:16)
[2019-02-12] MEDS: FERROUS SULFATE 325 MG TAB PO SCH (10:25)
--- NOTE | 2019-02-12 12:21 | Infectious Disease Progress Nt ---
Date of Service February 12, 2019 Assessment & Plan (1) Osteomyelitis of foot: 68-year-old male admitted with sepsis with evidence of osteomyelitis of the left heel in the setting of large ulcer, as well as Klebsiella urinary tract infection. Now status post surgical debridement. Cultures with Proteus and MRSA, daptomycin added for MRSA coverage. Will need 6 weeks abx for foot infection, woul suggest vanco (if Dapto too expensive) and can change to Rocephin 2g IV daily (for ease of use, once daily dosing) upon d/c. will need weekly cbc, cmp, esr, vanco trough (maintain 15-20). Can follow with Dr. Ndiaye post d/c. (2) Acute UTI: (3) Klebsiella infection: Subjective tolerating abx, afebrile. culture growing proteus and MRSA, will likely need vanco at d/c due to cost of Dapto. remains on zosyn. Results & Data Vital Signs (Past 12 Hours) Vital Signs Temp Pulse Resp BP Pulse Ox 02/12/19 08:28 36.8 C 87 20 135/77 94 Laboratory Results Microbiology 02/06/19 Unknown Foot,Left Gram Stain - Final 02/06/19 Unknown Foot,Left Aerobic and Anaerobic Culture - Final Proteus mirabilis Staph aureus MRSA 01/31/19 01:08 Blood Aerobic Blood Culture - Final No growth in Aerobic bottle after 5 days. 01/31/19 01:08 Blood Anaerobic Blood Culture - Final 01/31/19 00:39 Blood Aerobic Blood Culture - Final No growth in Aerobic bottle after 5 days. 01/31/19 00:39 Blood Anaerobic Blood Culture - Final 01/31/19 00:42 Urine,Indwelling Cath Urine Culture - Final Klebsiella pneumoniae PG Care Time/CCT Total # of Minutes Spent Total Time Spent with Patient: Total time spent is greater than 50% in c oordination of care (as documented) at patient's floor/unit and/or counseling patient: (1) Osteomyelitis of foot Laterality: left Osteomyelitis type: unspecified type Qualified Code(s): M86.9 - Osteomyelitis, unspecified
--- NOTE | 2019-02-12 15:14 | Discharge Summary ---
Date of Service February 12, 2019 Admission HPI Per Admitting Provider 68 yo male well known to service, history of lumbar decompression complicated by repeated epidural abscesses after surgery. Taken for several I&D by Dr. Morales. Most recently he completed prolonged treatment with Daptomycin, Rocephin and Caspofungin. He was then admitted for C diff colitis and concurrent UTI. He was treated with Vancomycin PO and planned to complete 14 days after finishing treatment for UTI. He reported that his diarrhea had gone away completely. He was discharged on 01/21/19 to [facility] for continued rehab and skilled care. He said he was doing well up until yesterday. He was eating. No chest pain, no dyspnea. He developed lethargy, fever, altered mental status and he was sent to the ED. In the ED he was found to be hypotensive but responded to fluid bolus. His UA was consistent with UTI but there were also concerns for heel ulcer and possible infection/cellulitis. He was admitted to the ICU for possible need for pressors. Principal Diagnosis Sepsis due to left heel osteomyelitis Discharge Exam Constitutional WD/WN, vitals as above Eyes PERRL, conjunctivae normal, anicteric sclerae ENMT external ear and nose normal, oropharynx normal Neck trachea midline, no thyromegaly Respiratory normal respiratory effort, lungs clear to auscultation Auscultation: + diminished lung sounds (bases) Cardiovascular RRR, no murmur, no edema Gastrointestinal (Abdomen) normal bowel sounds, soft, nontender, no hepatosplenomegaly Musculoskeletal Head/Neck/Chest: normocephalic and head atraumatic Spine: + limited thoraco-lumbar ROM (pain, weakness) Extremities: + abnormal strength (weakness in legs bilaterally, cannot transfer or ambulate) Skin no rashes, warm and dry + wound (heel ulcer) Neurologic patellar DTR's 2+ bilat, sensation intact and PERRL, EOMI, accommodation nl, no face palsy, no dysarthria Psychiatric Orientation: alert and oriented x 3 Lymphatic no cervical or axillary lymphadenopathy Discharge Data Allergies Allergy/AdvReac Type Severity Reaction Status Date / Time lorazepam [From Ativan] Allergy Confusion Verified 02/08/19 18:42 Consultations 01/31/19 02:45 ED Decision to Admit Stat 01/31/19 05:03 Consult Case Management - Discharge Planning Routine Consult Supervisor [employer] Routine 02/02/19 17:27 Consult Orthopedic Surgery Routine 02/03/19 10:16 Consult Cardiology Routine Consult Infectious Diseases Routine Procedures Performed Operation Date: 02/05/19 11:00 Actual Procedures p Left Lower Extremity Angiogram, Mechanical Closure Right Femoral Artery, Moderate Concious Sedation 1200 to 1234(Right) - Christiano Larose MD Operation Date: 02/06/19 12:45 <No data on this case meets the specified criteria> Operation Date: 02/06/19 12:45 Actual Procedures p Left Heel irrigation debridement 8 cm x 4 cm x 1 cm necrotic neuropathic ulcer, debridement left heel fascia, debridement subcutaneous fat, debridement left heel pad, debridement and saucerization calcaneal bone, implantation Stimulan antibiotic beads 5 cc (Left) - Chuckie Guillermo DO Ordered Studies 02/02/19 13:31 CT foot LT w con Routine 02/02/19 19:16 US arterial duplex LE LT Routine 02/05/19 10:39 EV angio LE LT Routine US guide vascular access Routine 02/06/19 15:23 US venous doppler UE RT Routine Hospital Course (1) Severe sepsis: due to klebsiella UTI and left heel ulcer/osteomyelitis (Proteus and MRSA) sepsis resolved. had been on vanco/zosyn since admission - mainly to cover heel and osteomyelitis while awaiting intra-op cultures. intra-op culture grew proteus in moderate amount, S aureus rare Proteus sensitive to Zosyn MRSA - will use Vanco on discharge due to cost issues with Daptomycin ID following, will touch base with them about final plan, anticipate needed 4-6 weeks of antibiotics blood cultures were negative earlier this admission. final plan: Rocephin 2gm IV daily and Vancomycin 1500mg IV q24 until 03/20/19 can follow up with Dr. Guillermo and Dr. Ndiaye (2) Acute UTI: catheter-associated/luna-associated/complicated UTI. 2nd to klebsiella. clinically resolved. has grown klebsiella multiple times this year. ideally needs MAINE to r/o chronic prostatitis; however he likely will be on prolonged IV/PO antibiotic course for the left foot osteomyelitis and thus that antibiotic course would suffice if he indeed had prostatitis. (3) Osteomyelitis of foot: POD #5 s/p debridement by Dr Guillermo of left heel ulcer/osteo. appreciate ortho, ID, cardiology, wound care consults. intra-op culture - proteus and MRSA treat with Rocephin and Vancomycin as above stable, doing well; non weight bearing to left leg/foot however patient rarely, if at all, bears weight. wound instructions provided, will follow up with Dr. Guillermo for wound check within 7-10 days (4) Pressure ulcer of left heel, stage 4: present on admission left foot appreciate wound care consultation, ID, ortho s/p arteriogram by Dr Larose - adequate arterial circulation; no intervention done s/p left heel ulcer debridement, cultures, bone debridement, placement of abx beads, etc by Dr Guillermo - POD #5 continue wound care after discharge waffle boots in place (5) Metabolic encephalopathy: resolved for 5 days placed ativan on his "allergy list." AVOID BENZOS. cont seroquel HS. he has also taken depakote 250mg BID since October or November of this year; records suggest it was for behavior/delirium. He had not had this medication for most of this stay and seroquel seems to have been adequate for controlling the delirium. Thus, will stop the depakote and simply use seroquel HS . again... DEPAKOTE and ATIVAN have been stopped (6) C. difficile colitis: history of such no active disease, some loose stools but nothing to suggest C diff colitis placed on probiotics in face of broad-spectrum abx (7) Lumbar stenosis with neurogenic claudication: s/p multiple surgeries and I/D for epidural abscess in past pain largely controlled cont norco prn, etc if pain was to worsen, if leukocytosis returns, etc low threshold for back imaging (8) Coronary artery disease: elevated troponin was likely demand ischemia in setting of severe sepsis at time of admission resumed asa and plavix 02/07/19 cont beta angy cont statin (9) Ischemic cardiomyopathy: compensated echo 11/2018 with EF 25-30% cont metoprolol 25 BID (convert to succinate before d/c) cont lasix 20mg daily resume Losartan 25mg (10) Stage III chronic kidney disease: Cr stable BMP am (11) Uncontrolled type 2 diabetes mellitus with neurologic complication, with long-term current use of insulin: control adequate at this time cont BSGs ac/hs and novolog sliding scale (12) Anemia in chronic illness: s/p 1 unit PRBCs 3 days ago H/H stable since then stool heme negative Hb 9 today (13) PAD (peripheral artery disease): left leg s/p arteriogram by Dr Larose this admission - adequate blood flow to left foot during that a-gram resumed lipitor resumed asa/plavix (14) Arm edema: right arm (has PICC in this arm) doppler neg for DVT cont to follow (15) DVT prophylaxis: heparin SC TID cont PT/OT Total Time Total Time Spent Total Time Spent (In Minutes): 35 minutes Total Time Includes: Examination of the Patient, Discharge Planning, Medication Reconciliation, Communication With Other Providers (discussion with pharmacy about IV medications, discussed with ID) and Other (discussed with patient's ) Discharge Plan Discharge Items Patient Disposition: Transfer [facility] Fac Reason For Visit: SEPTIC SHOCK Condition on Discharge: Good Activity: Resume your previous activity Weightbearing: Left non-weightbearing Non-emergency contact: Primary Care Provider Follow-up/Referrals: Chuckie Guillermo DO [Surgeon] - (Call for a follow up appointment approximately 10 days after discharge for wound check.) [facility] [Primary Care Provider] - Addtl [employer] Provider Instructions: Medications: - CEFTRIAXONE: 2gm IV daily for total of 6 weeks from operation, last dose would be on 03/20/19 - VANCOMYCIN: 1.5mg IV q24 for total of 6 weeks from operation, last dose would be on 03/20/19 - PERCOCET: use as needed for pain - SEROQUEL: started here for mood stabilization, preventing confusion, working quite well - ATIVAN and DEPAKOTE: note that these were stopped during admission, do not continued, his mental status has been stable for a week now Left heel osteomyelitis causing septic shock shock quickly resolved and transferred out of ICU on 02/06 he underwent debridement of the heel wound cultures grew out Proteus and MRSA infectious disease recommends combination of Rocephin 2gm IV daily and Vancomycin 1.5gm IV daily for total of 6 weeks should follow up with Dr. Guillermo in the office in 10 days, see below see below for wound care instructions patient has been stable for the past week, eating well, pain controlled, no issues breathing he is stable to return to [facility] ACTIVITY RECOMMENDATIONS: Limitations: No weight bearing to affected limb at all times. SPECIAL CARE INSTRUCTIONS: * Some drainage onto the dressing is normal and is no cause for alarm. * Some swelling is natural especially after walking. * When resting, keep your foot elevated above the level of your heart. * Call [facility] if you notice: -Increased drainage -Fever over 101 degrees F -Severe constant pain BANDAGE: * Daily dressing changes with adaptic cut to the size of the ulceration, gauze, ABD, gauze wrap. FOLLOW UP VISIT WITH DR. GUILLERMO If appointment is not already scheduled: Please call [facility] after you get home today to schedule a follow-up appointment for 10 days after discharge with Dr. Guillermo at . Stand-Alone Forms: My [facility] Skilled Items Patient informed of condition?: Yes DNR: Yes Discharge Level of Care: Skilled Communicable Disease: No Discharge Prognosis: Stable Medications and DC Order Prescriptions: New quetiapine 25 mg Tablet 25 mg PO HS 30 Days Qty: 30 RF: 1 hydrocodone-acetaminophen [[place]] 5-325 mg Tablet 1 tab PO Q4H PRN (Reason: pain) 7 Days Qty: 20 RF: 0 ceftriaxone 2 gram recon soln 2 gm IV DAILY 42 Days Qty: 1 RF: 0 vancomycin 1.5 gram recon soln 1.5 gm IV Q24H 42 Days Qty: 1 RF: 0 Continued tamsulosin [Flomax] 0.4 mg Capsule 0.4 mg PO HS RF: 0 lidocaine 5 % adhesive patch,medicated 2 patch transdermal DIRECTED RF: 0 nystatin 100,000 unit/gram Ointment 1 applic EXT BID Qty: 15 RF: 0 pantoprazole 40 mg Tablet,Delayed Release (Dr/Ec) 40 mg PO BID Qty: 60 RF: 0 losartan 25 mg Tablet 25 mg PO QAM Qty: 30 RF: 0 ferrous sulfate 325 mg (65 mg iron) Tablet,Delayed Release (Dr/Ec) 325 mg PO BIDM Qty: 60 RF: 0 tramadol 50 mg Tablet 50 mg PO Q4H PRN (Reason: pain) Qty: 12 RF: 0 acetaminophen [Tylenol] 325 mg Tablet 650 mg PO Q8 PRN (Reason: Fever Or Pain) RF: 0 metoprolol succinate [Toprol XL] 50 mg Tablet Extended Release 24 Hr 50 mg PO DAILY RF: 0 clopidogrel [Plavix] 75 mg Tablet 75 mg PO DAILY RF: 0 aspirin [Aspir-81] 81 mg Tablet,Delayed Release (Dr/Ec) 81 mg PO DAILY RF: 0 insulin lispro [Humalog U-100 Insulin] 100 unit/mL Solution 1 sliding scale dose SUBCUT USEASDIRECTD RF: 0 finasteride 5 mg Tablet 5 mg PO DAILY RF: 0 cholecalciferol (vitamin D3) [Vitamin D3] 1,000 unit Tablet 2,000 unit PO DAILY RF: 0 gabapentin 100 mg Capsule 100 mg PO BID Qty: 2 RF: 0 atorvastatin 40 mg Tablet 40 mg PO QAM Qty: 1 RF: 0 Discontinued cephalexin 500 mg Capsule 500 mg PO BID Qty: 14 RF: 0 lorazepam 0.5 mg Tablet 0.5 mg PO Q6H PRN (Reason: Anxiety) Qty: 12 RF: 0 divalproex 250 mg Tablet,Delayed Release (Dr/Ec) 250 mg PO Q12 RF: 0 No Action furosemide 40 mg tablet 40 mg PO QAM Qty: 30 RF: 11 Discharge Orders: Discharge Order (Routine); Ordered 02/12/19 Ordered By: Tai Burr Admission Data Admit Date/Time: 01/31/19 04:12 Attending Provider: Tia Burr Admit Provider: Sumanth Kenny Primary Care Provider: Philip Braxton Other Providers: Sumanth Kenny ; Fco Espino ; Chuckie Guillermo Christophe R. ; Serenity Guzman Other Interventions: Discharge Summary Assessment (RN) Last Done: 02/12/19 13:19 DC Date/Time DO NOT enter until pt leaves facility: 02/12/19 16:01
== END 2019-02-12 16:01 | DRG 853 ==
LOC: ED 00:04 → SUATTDRO 04:12 → 1E 04:12 → 2S 10:16 → 4W 02-07 13:12
DX: L89.620 Pressure ulcer of left heel, unstageable; D63.8 Anemia in other chronic diseases classified elsewhere; A04.72 Enterocolitis due to Clostridium difficile, not specified as recurrent; E87.5 Hyperkalemia; N18.3 Chronic kidney disease, stage 3 (moderate); Z98.49 Cataract extraction status, unspecified eye; Z83.3 Family history of diabetes mellitus; I25.10 Atherosclerotic heart disease of native coronary artery without angina pectoris; B96.1 Klebsiella pneumoniae [K. pneumoniae] as the cause of diseases classified elsewhere; R65.21 Severe sepsis with septic shock; Z96.1 Presence of intraocular lens; M48.062 Spinal stenosis, lumbar region with neurogenic claudication; Z82.49 Family history of ischemic heart disease and other diseases of the circulatory system; Z95.810 Presence of automatic (implantable) cardiac defibrillator; I25.5 Ischemic cardiomyopathy; T83.518A Infection and inflammatory reaction due to other urinary catheter, initial encounter; I95.9 Hypotension, unspecified; E11.22 Type 2 diabetes mellitus with diabetic chronic kidney disease; Z79.82 Long term (current) use of aspirin; I24.8 Other forms of acute ischemic heart disease; A41.9 Sepsis, unspecified organism; M86.9 Osteomyelitis, unspecified; I73.9 Peripheral vascular disease, unspecified; N39.0 Urinary tract infection, site not specified; Z66 Do not resuscitate; Z93.0 Tracheostomy status; Z79.4 Long term (current) use of insulin

== ENCOUNTER 2019-03-23 14:50 | Inpatient (IN) ==
--- NOTE | 2019-03-23 15:16 | XRay Report ---
XR chest 1V portable CLINICAL HISTORY: Atypical chest pain COMPARISON STUDY: 01/31/2019 FINDINGS: The heart is enlarged. There are postsurgical changes of a midline sternotomy. There is a l eft subclavian pacer/defibrillator. There is radiographic evidence of congestive failure. There are i ncreasing bilateral pleural effusions with associated basilar parenchymal opacities, likely represent ing compressive atelectatic change.[ IMPRESSION: Worsening congestive failure with increasing bilateral pleural effusions and basilar airs pace opacities likely representing compressive atelectasis Electronically signed by: Stevan Betancourt M.D. 03/23/2019 3:15 PM
--- NOTE | 2019-03-23 15:40 | Emergency Department Note ---
Entered by Rylie Max acting as a scribe for Alex Sultana MD History of Present Illness General Chief complaint: Chest Pain Time Seen by Provider: 03/23/19 14:53 Source: patient History of Present Illness Provider complaint: Chest Pain Onset (ago): hour(s) 2 Location: chest Relieved By: + none Exacerbated By: + rest (Lying flat) Associated symptoms: + shortness of breath; no diaphoresis and no nausea/vom iting The patient is a 68 year old male who presents to the Emergency Room with complaints of chest pain that began about 2 hours ago and lasted about 1 hour 45 minutes. The patient states the pain is exacerbated by lying flat and is not relieved by anything specific. The patient reports experiencing shortness of breath but denies any diaphoresis or nausea/vomiting. Home Medications Home Medications Medication Instructions Recorded Confirmed Type aspirin [Aspir-81] 81 mg PO DAILY 12/01/18 03/23/19 History cholecalciferol (vitamin D3) 2,000 unit PO DAILY 12/01/18 03/23/19 History [Vitamin D3] clopidogrel [Plavix] 75 mg PO DAILY 12/01/18 03/23/19 History finasteride 5 mg PO DAILY 12/01/18 03/23/19 History metoprolol succinate [Toprol XL] 50 mg PO DAILY 12/01/18 03/23/19 History gabapentin 100 mg PO BID #2 cap 12/16/18 03/23/19 Rx lidocaine 2 patch TRANSDERMAL DIRECTED 01/14/19 03/23/19 History tamsulosin [Flomax] 0.4 mg PO HS 01/14/19 03/23/19 History ferrous sulfate 325 mg PO BIDM #60 tab 01/21/19 03/23/19 Rx losartan 25 mg PO QAM #30 tab 01/21/19 03/23/19 Rx pantoprazole 40 mg PO BID #60 tab 01/21/19 03/23/19 Rx tramadol 50 mg PO Q4H PRN #12 tab 01/21/19 03/23/19 Rx quetiapine 25 mg PO HS 30 Days #30 tab 02/12/19 03/23/19 Rx furosemide 40 mg tablet 40 mg PO QAM #30 tab 02/19/19 03/23/19 Rx ascorbic acid (vitamin C) 500 mg PO DAILY 03/23/19 03/23/19 History atorvastatin 40 mg PO QPM 03/23/19 03/23/19 History cefdinir 300 mg PO BID 03/23/19 03/23/19 History hydrocodone-acetaminophen 1 tab PO Q4H PRN 03/23/19 03/23/19 History levothyroxine 25 mcg PO DAILY 03/23/19 03/23/19 History melatonin 5 mg PO HS 03/23/19 03/23/19 History multivitamin,ez-iwso-ykoztrme 1 tab PO DAILY 03/23/19 03/23/19 History [Therems-M] nystatin 1 applic EXT DAILY 03/23/19 03/23/19 History oxycodone 5 mg PO TID 03/23/19 03/23/19 History sulfamethoxazole-trimethoprim 1 tab PO BID 03/23/19 03/23/19 History [Bactrim DS] Allergies Allergy/AdvReac Type Severity Reaction Status Date / Time lorazepam [From Ativan] Allergy Confusion Verified 03/16/19 09:38 Past Med/Surg History Medical History Vitamin D deficiency (Acute) Thyroid disorder (Acute) Spinal stenosis (Acute) Restless legs syndrome (Acute) Diverticulosis (Acute) Disc degeneration, lumbar (Acute) Diabetic retinopathy (Acute) Diabetic peripheral neuropathy (Acute) Depression (Acute) Carotid artery stenosis (Acute) Anxiety (Acute) Ischemic cardiomyopathy EF WNL 11/2017 EF this year consistantly 25-30% Full dentures (Acute) HTN (hypertension) (Acute) Abscess in epidural space of lumbar spine Anemia CAD (coronary artery disease) CABG 2002 or so, severe multivessel disease - [place] around time of paraspinal abscess earlier this year - medical mgmt of his CAD thus far CHF (congestive heart failure) 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 Admitted [facility] 10/18/11 for onset of incapacitating cervical myelopathy. Spinal tap showed SOCIAL WORK ADMINISTRATOR Lyme disease, MRI showed severe spinal cord compression at C3-4 with myelomalacia and intramedullary mass. Pt had c-spine surgery, subsequent prolonged hospital admission, complicated post-op course. Chronic kidney disease, stage III (moderate) Chronic sinusitis Dysphagia History of femoral angiogram adequate blood flow to foot History of non-ST elevation myocardial infarction (NSTEMI) ICD (implantable cardioverter-defibrillator) in place Sudden cardiac Post-op 2011 [facility]. Now has ICD. Surgical History History of esophagogastroduodenoscopy (EGD) History of colonoscopy History of cardiac cath 2011 AT [facility] - UNSURE IF HE HAS STENTS. History of tracheostomy Hx of transurethral resection of prostate History of cataract extraction with lens replacement Hx of tonsillectomy (Acute) H/O cervical spine surgery (Acute) ACDI C3-4, C7 corpectomy, removal of C7 intramedullary mass. History of lumbar spinal fusion (Acute) S/P triple vessel bypass (Acute) [facility] 2002 History of incision and drainage Lumbar spine on 08/11; complicated by difficult intubation with only #6.5 ETT able to be placed and patient kept intubated post op History of lumbar surgery 09/10/18 Glidescope 3 okay visualization but difficulty passing ETT, unable to pass 8.0, able to pass 7.0 with some difficulty Family History Mother , age 68 of COPD and respiratory issues COPD (chronic obstructive pulmonary disease) Father , in his 40s of an [place] Myocardial infarction Other Diabetes Hypertension No pertinent family history Social History Preferred Language: Swedish Communication Ability: Impaired Communication Ability Comment: confusion Visual Impairment: No Limitations Hearing Ability: Normal Medical Housekeeper Required: No Beliefs That Will Affect Care: None marital status: Current Living Situation: Half-Way Current Living Situation Comment: lives at [facility] 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al status: retired and disabled 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: 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 and A total of 10 systems reviewed and were otherwise negative Physical Exam Vital Signs Vital Signs - 24 hr 03/23/19 15:00 03/23/19 15:07 03/23/19 15:18 Temperature 37.2 C Temperature Source Oral Sepsis Recent Fever Within 48 Hours No Sepsis New/Unexplained Change in Mental Status No Sepsis Action Taken by Nursing No Action Required Pulse Rate 67 67 67 Pulse Rate [Apical] Pulse Rate from SpO2 Sensor 67 65 Pulse Rhythm [Apical] Pulse Strength [Apical] Respiratory Rate 22 16 19 Respiratory Effort / Characteristics Respiratory Depth Respiratory Pattern Blood Pressure 133/90 133/99 Blood Pressure [Right Arm] Blood Pressure Mean 104 110 Blood Pressure Mean [Right Arm] Pulse Oximetry 96 97 96 Oxygen Delivery Method Room Air Oxygen Flow Rate 03/23/19 15:20 03/23/19 15:30 03/23/19 16:00 Temperature Temperature Source Sepsis Recent Fever Within 48 Hours Sepsis New/Unexplained Change in Mental Status Sepsis Action Taken by Nursing Pulse Rate 66 64 Pulse Rate [Apical] Pulse Rate from SpO2 Sensor 65 Pulse Rhythm [Apical] Pulse Strength [Apical] Respiratory Rate 20 22 Respiratory Effort / Characteristics Respiratory Depth Respiratory Pattern Blood Pressure Blood Pressure [Right Arm] Blood Pressure Mean Blood Pressure Mean [Right Arm] Pulse Oximetry 97 95 Oxygen Delivery Method Room Air Oxygen Flow Rate 03/23/19 16:09 03/23/19 16:10 03/23/19 16:30 Temperature Temperature Source Sepsis Recent Fever Within 48 Hours Sepsis New/Unexplained Change in Mental Status Sepsis Action Taken by Nursing Pulse Rate 65 62 Pulse Rate [Apical] 64 Pulse Rate from SpO2 Sensor 65 63 Pulse Rhythm [Apical] Pulse Strength [Apical] Respiratory Rate 23 18 25 H Respiratory Effort / Characteristics Respiratory Depth Respiratory Pattern Blood Pressure 108/65 117/64 Blood Pressure [Right Arm] 108/65 Blood Pressure Mean 79 81 Blood Pressure Mean [Right Arm] 79 Pulse Oximetry 96 96 96 Oxygen Delivery Method Room Air Oxygen Flow Rate 03/23/19 17:00 03/23/19 17:30 03/23/19 18:00 Temperature Temperature Source Sepsis Recent Fever Within 48 Hours Sepsis New/Unexplained Change in Mental Status Sepsis Action Taken by Nursing Pulse Rate 65 64 65 Pulse Rate [Apical] Pulse Rate from SpO2 Sensor 64 64 63 Pulse Rhythm [Apical] Pulse Strength [Apical] Respiratory Rate 20 19 16 Respiratory Effort / Characteristics Respiratory Depth Respiratory Pattern Blood Pressure 131/70 123/68 Blood Pressure [Right Arm] Blood Pressure Mean 90 86 Blood Pressure Mean [Right Arm] Pulse Oximetry 95 96 93 Oxygen Delivery Method Oxygen Flow Rate 03/23/19 18:12 03/23/19 18:30 03/23/19 19:09 Temperature Temperature Source Sepsis Recent Fever Within 48 Hours Sepsis New/Unexplained Change in Mental Status Sepsis Action Taken by Nursing Pulse Rate 61 66 Pulse Rate [Apical] 68 Pulse Rate from SpO2 Sensor 60 66 Pulse Rhythm [Apical] Pulse Strength [Apical] Respiratory Rate 18 16 Respiratory Effort / Characteristics Respiratory Depth Respiratory Pattern Blood Pressure 101/46 L Blood Pressure [Right Arm] 122/89 Blood Pressure Mean 64 Blood Pressure Mean [Right Arm] 100 Pulse Oximetry 92 100 99 Oxygen Delivery Method Nasal Cannula Oxygen Flow Rate 2 03/23/19 20:28 03/23/19 21:49 Temperature Temperature Source Sepsis Recent Fever Within 48 Hours Sepsis New/Unexplained Change in Mental Status Sepsis Action Taken by Nursing Pulse Rate Pulse Rate [Apical] 68 65 Pulse Rate from SpO2 Sensor Pulse Rhythm [Apical] Regular Pulse Strength [Apical] Normal Respiratory Rate 21 20 Respiratory Effort / Characteristics Non-Labored Spontaneous Non-Labored Spontaneous Respiratory Depth Normal Normal Respiratory Pattern Regular Blood Pressure Blood Pressure [Right Arm] 134/55 L 117/61 Blood Pressure Mean Blood Pressure Mean [Right Arm] 81 79 Pulse Oximetry 98 95 Oxygen Delivery Method Room Air Nasal Cannula Oxygen Flow Rate 2 GENERAL: Awake, alert, chronically ill-appearing, in no distress HENT: Normocephalic, atraumatic. Oropharynx unremarkable. EYES: Normal conjunctiva. Sclera non-icteric. NECK: Supple. No nuchal rigidity. FROM. Mild JVD. RESPIRATORY: Diminished breath sounds throughout. CARDIAC: Regular rate, normal rhythm. Extremities warm and well perfused. Pulses equal. ABDOMEN: Soft, non-distended. No tenderness to palpation. No rebound or guarding. No masses. RECTAL: Deferred. MUSCULOSKELETAL: Chest examination reveals no tenderness. The back is symmetrical on inspection without obvious abnormality. There is no CVA ten derness to palpation. No joint edema. LOWER EXTREMITIES: Calves are equal size bilaterally and non-tender. 1+ bilateral lower extremity edema. No discoloration. NEURO: Normal sensorium. No sensory or motor deficits noted. SKIN: No rash or jaundice noted. Course 151: Past medical records reviewed. The patient was evaluated in room B12B. A c omplete history and physical exam was performed. 1730: I spoke with Dr. Morillo- Hospitalist about the patient's case and he will accept the patient for further evaluation. 1800: I spoke with the [employer] F[employer] and the patient's fluid buildup has worsened since this summer. Administered Medications Hydrocodone Bitart/Acetaminophen ([place] 5/325) 1 tab PO Q4H PRN PRN Reason: Pain Stop: 04/06/19 22:56 Last Admin: 03/23/19 23:53 Dose: 1 tab Documented by: [id number] Gabapentin (Neurontin) 100 mg PO BID KAYLYNN Stop: 04/22/19 22:56 Last Admin: 03/23/19 23:53 Dose: 100 mg Documented by: [id number] Nystatin (Mycostatin) 1 appln EXT PRN PRN PRN Reason: Affected Skin Folds Stop: 04/22/19 16:24 Last Admin: 03/23/19 16:34 Dose: 1 appln Documented by: [id number] Pantoprazole Sodium (Protonix) 40 mg PO BID KAYLYNN Stop: 04/22/19 22:56 Last Admin: 03/23/19 23:53 Dose: 40 mg Documented by: [id number] Discontinued Medications Furosemide (Lasix) 40 mg IV NOW STA Stop: 03/23/19 17:03 Last Admin: 03/23/19 17:42 Dose: 40 mg Documented by: [id number] Nystatin (Mycostatin) 1 appln EXT NOW STA Stop: 03/23/19 16:31 Last Admin: 03/23/19 16:35 Dose: 1 appln Documented by: [id number] Medical Decision Making Differential Diagnosis Differential diagnosis: Etiologies such as shingles, musculoskeletal pain, pericarditis, myocarditis, cardiac ischemia, pericardial tamponade, pneumonia, pneumothorax, pleural effusion, hemothorax, pleurisy, aortic pathology, pulmonary embolism, intra- abdominal process, as well as others were considered. Medical Records Attestation: I reviewed the patient's medical records. Home Medications Current Medication List: was personally reviewed by me Laboratory Data Attestation: I reviewed the patient's lab results. Result diagrams: 03/23/19 16:05 03/23/19 16:05 Lab Results 03/23/19 03/23/19 Range/Units 16:05 16:05 WBC 6.52 (4.8-10.8) K/uL RBC 3.06 L (4.7-6.1) M/uL Hgb 9.2 L (14.0-18.0) g/dL Hct 28.6 L (42-52) % MCV 93.5 (80-100) fL MCH 30.1 (25-34) pg MCHC 32.2 (32-36) g/dL RDW Std Deviation 55.4 H (36.4-46.3) fL RDW Coeff of Norbert 16.3 H (11.5-14.5) % Plt Count 186 (130-400) K/uL MPV 9.7 (7.4-10.4) fL Immature Gran % (Auto) 0.2 % Neut % (Auto) 71.6 % Lymph % (Auto) 14.3 % Cannon % (Auto) 9.8 % Eos % (Auto) 3.5 % Baso % (Auto) 0.6 % Immature Gran # (Auto) 0.01 (0.00-0.02) K/uL Neut # (Auto) 4.67 (1.4-6.5) K/uL Lymph # (Auto) 0.93 L (1.2-3.4) K/uL Cannon # (Auto) 0.64 H (0.11-0.59) K/uL Eos # (Auto) 0.23 (0-0.5) K/uL Baso # (Auto) 0.04 (0-0.2) K/uL Sodium 136 (136-145) mmol/L Potassium 4.3 (3.5-5.1) mmol/L Chloride 103 (98-107) mmol/L Carbon Dioxide 26 (21-32) mmol/L Anion Gap 7.0 (3-11) BUN 26 H (7-18) mg/dl Creatinine 1.22 (0.6-1.4) mg/dl Est Cr Clr Drug Dosing 69.1 ml/min Est GFR ( Amer) 71.2 Est GFR (Non-Af Amer) 61.4 BUN/Creatinine Ratio 21.6 H (10-20) Glucose 133 H (70-99) mg/dl Calcium 9.0 (8.5-10.1) mg/dl Phosphorus 4.2 (2.5-4.9) mg/dl Magnesium 1.8 (1.8-2.4) mg/dl Total Bilirubin 0.5 (0.2-1) mg/dl AST 68 H (15-37) U/L ALT 110 H (12-78) U/L Alkaline Phosphatase 100 (45-117) U/L Troponin I 0.017 (0-0.045) ng/ml NT-Pro-B Natriuret Pep 7649 H (0-900) pg/ml Total Protein 6.6 (6.4-8.2) gm/dl Albumin 3.2 L (3.4-5.0) gm/dl Globulin 3.4 (2.5-4.0) gm/dl Albumin/Globulin Ratio 0.9 (0.9-2) Lipase 48 L (73-393) U/L Imaging Data Radiologist's Impression: Radiology results as stated below per my review and the radiologist's interpretation: XR chest 1V portable CLINICAL HISTORY: Atypical chest pain COMPARISON STUDY: 01/31/2019 FINDINGS: The heart is enlarged. There are postsurgical changes of a midline sternotomy. There is a left subclavian pacer/defibrillator. There is radiographic evidence of congestive failure. There are increasing bilateral pleural effusions with associated basilar parenchymal opacities, likely representing compressive atelectatic change.[ IMPRESSION: Worsening congestive failure with increasing bilateral pleural effusions and basilar airspace opacities likely representing compressive atelectasis Electronically signed by: Stevan Betancourt M.D. 03/23/2019 3:15 PM ECG Data Attestation: I personally reviewed and interpreted this ECG as follows: Indication: chest pain Rate (beats per minute): 66 Rhythm: sinus rhythm Findings: + other (AZ 224), + 1st degree AV block and + RBBB; no acute ischemic change Comparison ECG Date: from (01/14/2019) Change: no significant change Blood Pressure Blood Pressure Findings: Normal blood pressure Blood Pressure Disposition: further management by hospitalist NATALIA Narrative The patient is a pleasant 68-year-old gentleman with a past medical history of CHF with EF of 25%, history of PAD with recent treatment of left lower extremity extremity/heel osteomyelitis who presents emergency department with 30-minute episode of chest pain when he was sitting in his wheelchair watching TV with report of SOB increased when supine in the setting of being discharged from rehab on Saturday per hpi. Patient reports he has been taking his medications as prescribed and has not changed his diet since he left rehab but does feel as though his legs are swelling. On arrival the patient is chronically ill- appearing but no acute distress, afebrile stable vital signs. The patient appears fluid overloaded with diminished breath sounds throughout and 1+ bilateral lower extremity edema. EKG with RBBB similar to prior and without evidence of acute ischemia. CXR demonstrates worsening congestive failure with increasing bilateral pleural effusions. WBC and platelets wnl. H/H 9.2/28.6 similar to prior range of values. Chemistry without acidosis. AST and ALT 68 and 110, respectively, nonspecific. Troponin wnl. BNP 7600 but has been more corbin vated in the past. Interrogation of patient AICD negative for any recent ventricular arrhythmias. However, does demonstrate progressive decline in impedance suggestive of increasing fluid retention since November. Thus, symptoms likely related to patient's CHF. Reasonable to admit for further management. Patient and family are agreeable. Tx initiated with IV Lasix. Case d/w Dr. Dr. Morillo, [facility] hospitalist, who will evaluate the patient for admission. Impression & Plan CHF (congestive heart failure), Chest pain Discharge Plan Visit Data *Final* Discharge Date/Time: 03/23/19 22:49 Chief Complaint: Chest Pain ED Provider: Alex Sultana Discharge Problem: CHF (congestive heart failure), Chest pain Patient Disposition: Admitted As Inpatient Discharge Instructions Interventions: ED Discharge Assessment Last Done: 03/23/19 22:49 Discharge Problem: CHF (congestive heart failure) Qualifiers: Heart failure type: unspecified Heart failure chronicity: unspecified Qualified Code(s): I50.9 - Heart failure, unspecified Chest pain Qualifiers: Chest pain type: unspecified Qualified Code(s): R07.9 - Chest pain, unspecified The scribe's documentation has been prepared under my direction and personally reviewed by me in its entirety. I confirm that the note above accurately ref lects all work, treatment, procedures, and medical decision making performed by me.
[2019-03-23] MEDS ORDERED: NYSTATIN OINT 15 GM TUBE EXT PRN (16:25)
[2019-03-23] MEDS ORDERED: NYSTATIN POWDER 15GM BTL EXT STA (16:30)
[2019-03-23 16:40] LABS: Basophils # (auto) 0.04 K/uL (0-0.2); Basophils % (auto) 0.6 %; Eosinophils # (auto) 0.23 K/uL (0-0.5); Eosinophils % (auto) 3.5 %; Hematocrit (blood only) 28.6 % (42-52); Hemoglobin 9.2 g/dL (14.0-18.0); Immature Granulocytes # (auto) 0.01 K/uL (0.00-0.02); Immature Granulocytes % (auto) 0.2 %; Lymphocytes # (auto) 0.93 K/uL (1.2-3.4); Lymphocytes % (auto) 14.3 %; Mean Corpuscular Hemoglobin 30.1 pg (25-34); Mean Corpuscular Hgb Conc 32.2 g/dL (32-36); Mean Corpuscular Volume 93.5 fL (80-100); Mean Platelet Volume 9.7 fL (7.4-10.4); Monocytes # (auto) 0.64 K/uL (0.11-0.59); Monocytes % (auto) 9.8 %; Neutrophils # (auto) 4.67 K/uL (1.4-6.5); Neutrophils % (auto) 71.6 %; Platelet Count 186 K/uL (130-400); RDW Coefficient of Variation 16.3 % (11.5-14.5); RDW Standard Deviation 55.4 fL (36.4-46.3); Red Blood Count 3.06 M/uL (4.7-6.1); White Blood Count 6.52 K/uL (4.8-10.8)
[2019-03-23 16:43] LABS: Albumin Level 3.2 gm/dl (3.4-5.0); BUN Creatinine Ratio 21.6 (10-20); Creatinine Clr Calc Pharmacy 69.1 ml/min; Est GFR (African American) 71.2; Est GFR (Non-African American) 61.4; Magnesium 1.8 mg/dl (1.8-2.4); Potassium 4.3 mmol/L (3.5-5.1)
[2019-03-23 16:48] LABS: Albumin Globulin Ratio 0.9 (0.9-2); Bilirubin,Total 0.5 mg/dl (0.2-1); Globulin 3.4 gm/dl (2.5-4.0); Phosphorus 4.2 mg/dl (2.5-4.9); Total Protein 6.6 gm/dl (6.4-8.2); Troponin I 0.017 ng/ml (0-0.045)
[2019-03-23] MEDS ORDERED: FUROSEMIDE 40 MG/4 ML VIAL IV STA (17:02)
--- NOTE | 2019-03-23 19:34 | History & Physical Report ---
Date of Service March 23, 2019 Assessment & Plan (1) CHF (congestive heart failure): Add IV Lasix. Consult cardiology. Monitor intake output monitor daily weights. Resume home medications. Home medication list was reconciled (2) Chest pain: Monitor EKG cardiac enzymes per protocol. Present on Admission?: Yes (3) Pressure ulcer of left heel, stage 4: Wound care consult in am Continue with antibiotics for osteomyelitis. Present on Admission?: Yes (4) PAD (peripheral artery disease): (5) Anemia in chronic illness: (6) Coronary artery disease: (7) Ischemic cardiomyopathy: Present on Admission?: Yes (8) Stage III chronic kidney disease: Present on Admission?: Yes (9) Chronic systolic heart failure: Present on Admission?: Yes (10) Cardiac defibrillator in place: (11) Uncontrolled type 2 diabetes mellitus with neurologic complication, with long-term current use of insulin: History of Present Illness Chief Complaint: sob /Chest pain Primary Care Provider: Edd Alvarez MD Patient is 68-year-old male with history of chronic heart failure and ischemic cardiomyopathy. He is complaining of increasing shortness of breath and increasing swelling of the leg since yesterday. Today he s complaining of intermittent episodes of retrosternal chest pain. The further work-up done in the ER shows that patient has acute on chronic heart failure. He will be admitted for further evaluation and management. Patient was recently discharged from the hospital when he was here with heart failure and chronic kidney disease and left foot osteomyelitis and is currently on oral antibiotics. Allergies Allergy/AdvReac Type Severity Reaction Status Date / Time lorazepam [From Ativan] Allergy Confusion Verified 03/16/19 09:38 Home Medications Home Medications Medication Instructions Recorded Confirmed Type aspirin [Aspir-81] 81 mg PO DAILY 12/01/18 03/23/19 History cholecalciferol (vitamin D3) 2,000 unit PO DAILY 12/01/18 03/23/19 History [Vitamin D3] clopidogrel [Plavix] 75 mg PO DAILY 12/01/18 03/23/19 History finasteride 5 mg PO DAILY 12/01/18 03/23/19 History metoprolol succinate [Toprol XL] 50 mg PO DAILY 12/01/18 03/23/19 History gabapentin 100 mg PO BID #2 cap 12/16/18 03/23/19 Rx lidocaine 2 patch TRANSDERMAL DIRECTED 01/14/19 03/23/19 History tamsulosin [Flomax] 0.4 mg PO HS 01/14/19 03/23/19 History ferrous sulfate 325 mg PO BIDM #60 tab 01/21/19 03/23/19 Rx losartan 25 mg PO QAM #30 tab 01/21/19 03/23/19 Rx pantoprazole 40 mg PO BID #60 tab 01/21/19 03/23/19 Rx tramadol 50 mg PO Q4H PRN #12 tab 01/21/19 03/23/19 Rx quetiapine 25 mg PO HS 30 Days #30 tab 02/12/19 03/23/19 Rx furosemide 40 mg tablet 40 mg PO QAM #30 tab 02/19/19 03/23/19 Rx ascorbic acid (vitamin C) 500 mg PO DAILY 03/23/19 03/23/19 History atorvastatin 40 mg PO QPM 03/23/19 03/23/19 History cefdinir 300 mg PO BID 03/23/19 03/23/19 History hydrocodone-acetaminophen 1 tab PO Q4H PRN 03/23/19 03/23/19 History levothyroxine 25 mcg PO DAILY 03/23/19 03/23/19 History melatonin 5 mg PO HS 03/23/19 03/23/19 History multivitamin,[id number]-szemtfci 1 tab PO DAILY 03/23/19 03/23/19 History [Therems-M] nystatin 1 applic EXT DAILY 03/23/19 03/23/19 History oxycodone 5 mg PO TID 03/23/19 03/23/19 History sulfamethoxazole-trimethoprim 1 tab PO BID 03/23/19 03/23/19 History [Bactrim DS] Past Med/Surg History Medical History Vitamin D deficiency (Acute) Thyroid disorder (Acute) Spinal stenosis (Acute) Restless legs syndrome (Acute) Diverticulosis (Acute) Disc degeneration, lumbar (Acute) Diabetic retinopathy (Acute) Diabetic peripheral neuropathy (Acute) Depression (Acute) Carotid artery stenosis (Acute) Anxiety (Acute) Ischemic cardiomyopathy EF WNL 11/2017 EF this year consistantly 25-30% Full dentures (Acute) HTN (hypertension) (Acute) Abscess in epidural space of lumbar spine Anemia CAD (coronary artery disease) CABG 2002 or so, severe multivessel disease - [place] around time of paraspinal abscess earlier this year - medical mgmt of his CAD thus far CHF (congestive heart failure) [employer] 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 Admitted [facility] 10/18/11 for onset of incapacitating cervical myelopathy. Spinal tap showed PIPE INS[employer] Lyme disease, MRI showed severe spinal cord compression at C3-4 with myelomalacia and intramedullary mass. Pt had c-spine surgery, subsequent prolonged hospital admission, complicated post-op course. Chronic kidney disease, stage III (moderate) Chronic sinusitis Dysphagia History of femoral angiogram adequate blood flow to foot History of non-ST elevation myocardial infarction (NSTEMI) ICD (implantable cardioverter-defibrillator) in place Sudden cardiac Post-op 2011 [facility]. Now has ICD. Surgical History History of esophagogastroduodenoscopy (EGD) History of colonoscopy History of cardiac cath 2011 AT [facility] - UNSURE IF HE HAS STENTS. History of tracheostomy Hx of transurethral resection of prostate History of cataract extraction with lens replacement Hx of tonsillectomy (Acute) H/O cervical spine surgery (Acute) ACDI C3-4, C7 corpectomy, removal of C7 intramedullary mass. History of lumbar spinal fusion (Acute) S/P triple vessel bypass (Acute) [facility] History of incision and drainage Lumbar spine on 08/11; complicated by difficult intubation with only #6.5 ETT able to be placed and patient kept intubated post op History of lumbar surgery 09/10/18 Glidescope 3 okay visualization but difficulty passing ETT, unable to pass 8.0, able to pass 7.0 with some difficulty Family History Mother , age 68 of COPD and respiratory issues COPD (chronic obstructive pulmonary disease) Father , in his 40s of an [place] Myocardial infarction Other Diabetes Hypertension No pertinent family history Social History Preferred Language: Kazakh Communication Ability: Impaired Communication Ability Comment: confusion Visual Impairment: No Limitations Hearing Ability: Normal Process Architect Required: No Beliefs That Will Affect Care: None marital status: Current Living Situation: [facility] Current Living Situation Comment: lives at [facility] 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al status: retired and disabled 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: 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 [employer] Feels Safe at Home: Yes Safety Concerns: Feels Safe At This Time Smoking Status: Never smoker Tobacco Type: smokeless tobacco ; Second Hand Exposure: No ; Hx Alcohol Use: No Hx Substance Use: No Review of Systems Review of Systems: All systems reviewed & are unremarkable except as noted in HPI & below Respiratory: + cough, + chest congestion, + dyspnea and + dyspnea on exertion Cardiovascular: + chest pain, + dyspnea on exertion, + orthopnea and + edema Results & Data Vital Signs (Past 12 Hours) Vital Signs Temp Pulse Pulse Resp BP BP Pulse Ox 03/23/19 19:09 68 16 122/89 99 03/23/19 18:30 66 18 100 03/23/19 18:12 61 101/46 L 92 03/23/19 18:00 65 16 93 03/23/19 17:30 64 19 123/68 96 03/23/19 17:00 65 20 131/70 95 03/23/19 16:30 62 25 H 117/64 96 03/23/19 16:10 64 18 108/65 96 03/23/19 16:09 65 23 108/65 96 03/23/19 16:00 64 22 03/23/19 15:30 66 20 95 03/23/19 15:20 97 03/23/19 15:18 67 19 96 03/23/19 15:07 99.0 F 67 16 133/99 97 03/23/19 15:00 67 22 133/90 96 03/23/19 03/23/19 Range/Units 16:05 16:05 WBC 6.52 (4.8-10.8) K/uL RBC 3.06 L (4.7-6.1) M/uL Hgb 9.2 L (14.0-18.0) g/dL Hct 28.6 L (42-52) % MCV 93.5 (80-100) fL MCH 30.1 (25-34) pg MCHC 32.2 (32-36) g/dL RDW Std Deviation 55.4 H (36.4-46.3) fL RDW Coeff of Norbert 16.3 H (11.5-14.5) % Plt Count 186 (130-400) K/uL MPV 9.7 (7.4-10.4) fL Immature Gran % (Auto) 0.2 % Neut % (Auto) 71.6 % Lymph % (Auto) 14.3 % [place] % (Auto) 9.8 % Eos % (Auto) 3.5 % Baso % (Auto) 0.6 % Immature Gran # (Auto) 0.01 (0.00-0.02) K/uL Neut # (Auto) 4.67 (1.4-6.5) K/uL Lymph # (Auto) 0.93 L (1.2-3.4) K/uL [place] # (Auto) 0.64 H (0.11-0.59) K/uL Eos # (Auto) 0.23 (0-0.5) K/uL Baso # (Auto) 0.04 (0-0.2) K/uL Sodium 136 (136-145) mmol/L Potassium 4.3 (3.5-5.1) mmol/L Chloride 103 (98-107) mmol/L Carbon Dioxide 26 (21-32) mmol/L Anion Gap 7.0 (3-11) BUN 26 H (7-18) mg/dl Creatinine 1.22 (0.6-1.4) mg/dl Est Cr Clr Drug Dosing 69.1 ml/min Est GFR ( Amer) 71.2 Est GFR (Non-Af Amer) 61.4 BUN/Creatinine Ratio 21.6 H (10-20) Glucose 133 H (70-99) mg/dl Calcium 9.0 (8.5-10.1) mg/dl Phosphorus 4.2 (2.5-4.9) mg/dl Magnesium 1.8 (1.8-2.4) mg/dl Total Bilirubin 0.5 (0.2-1) mg/dl AST 68 H (15-37) U/L ALT 110 H (12-78) U/L Alkaline Phosphatase 100 (45-117) U/L Troponin I 0.017 (0-0.045) ng/ml NT-Pro-B Natriuret Pep 7649 H (0-900) pg/ml Total Protein 6.6 (6.4-8.2) gm/dl Albumin 3.2 L (3.4-5.0) gm/dl Globulin 3.4 (2.5-4.0) gm/dl Albumin/Globulin Ratio 0.9 (0.9-2) Lipase 48 L (73-393) U/L 03/23/19 03/23/19 Range/Units 16:05 16:05 WBC 6.52 (4.8-10.8) K/uL RBC 3.06 L (4.7-6.1) M/uL Hgb 9.2 L (14.0-18.0) g/dL Hct 28.6 L (42-52) % MCV 93.5 (80-100) fL MCH 30.1 (25-34) pg MCHC 32.2 (32-36) g/dL RDW Std Deviation 55.4 H (36.4-46.3) fL RDW Coeff of Norbert 16.3 H (11.5-14.5) % Plt Count 186 (130-400) K/uL MPV 9.7 (7.4-10.4) fL Immature Gran % (Auto) 0.2 % Neut % (Auto) 71.6 % Lymph % (Auto) 14.3 % [place] % (Auto) 9.8 % Eos % (Auto) 3.5 % Baso % (Auto) 0.6 % Immature Gran # (Auto) 0.01 (0.00-0.02) K/uL Neut # (Auto) 4.67 (1.4-6.5) K/uL Lymph # (Auto) 0.93 L (1.2-3.4) K/uL [place] # (Auto) 0.64 H (0.11-0.59) K/uL Eos # (Auto) 0.23 (0-0.5) K/uL Baso # (Auto) 0.04 (0-0.2) K/uL Sodium 136 (136-145) mmol/L Potassium 4.3 (3.5-5.1) mmol/L Chloride 103 (98-107) mmol/L Carbon Dioxide 26 (21-32) mmol/L Anion Gap 7.0 (3-11) BUN 26 H (7-18) mg/dl Creatinine 1.22 (0.6-1.4) mg/dl Est Cr Clr Drug Dosing 69.1 ml/min Est GFR ( Amer) 71.2 Est GFR (Non-Af Amer) 61.4 BUN/Creatinine Ratio 21.6 H (10-20) Glucose 133 H (70-99) mg/dl Calcium 9.0 (8.5-10.1) mg/dl Phosphorus 4.2 (2.5-4.9) mg/dl Magnesium 1.8 (1.8-2.4) mg/dl Total Bilirubin 0.5 (0.2-1) mg/dl AST 68 H (15-37) U/L ALT 110 H (12-78) U/L Alkaline Phosphatase 100 (45-117) U/L Troponin I 0.017 (0-0.045) ng/ml NT-Pro-B Natriuret Pep 7649 H (0-900) pg/ml Total Protein 6.6 (6.4-8.2) gm/dl Albumin 3.2 L (3.4-5.0) gm/dl Globulin 3.4 (2.5-4.0) gm/dl Albumin/Globulin Ratio 0.9 (0.9-2) Lipase 48 L (73-393) U/L Code Status & VTE Plan Code Status full code PG Care Time/CCT Total # of Minutes Spent Total Time Spent with Patient: Total time spent is greater than 50% in coordination of care (as documented) at patient's floor/unit and/or counseling patient: (1) Coronary artery disease Associated angina: without angina Coronary Disease-Associated Artery/Lesion type: [place] artery [place] vs. transplanted heart: [place] heart Qualified Code(s): I25.10 - Atherosclerotic heart disease of [place] coronary artery without angina pectoris (2) CHF (congestive heart failure) Heart failure chronicity: unspecified Heart failure type: unspecified Qualified Code(s): I50.9 - Heart failure, unspecified (3) Chest pain Chest pain type: unspecified Qualified Code(s): R07.9 - Chest pain, unspecified
--- NOTE | 2019-03-23 19:42 | History & Physical Report ---
Date of Service March 23, 2019 Assessment & Plan (1) CHF (congestive heart failure): Add IV Lasix. Consult cardiology. Monitor EKG/ CE per protocol. Daily weights. Strict intake output. Continue home medication. (2) Chronic systolic heart failure: (3) Ischemic cardiomyopathy: (4) Osteomyelitis of foot: Continue the antibiotics per home medication list which was recommended by ID. (5) Chest pain: (6) Pressure ulcer of left heel, stage 4: (7) PAD (peripheral artery disease): (8) Anemia in chronic illness: (9) Obese: (10) Coronary artery disease: (11) Cardiac defibrillator in place: (12) Obstructive sleep apnea: (13) Edema: (14) Uncontrolled type 2 diabetes mellitus with neurologic complication, with long-term current use of insulin: (15) BPH (benign prostatic hyperplasia): (16) Thyroid disorder: (17) Anxiety: (18) Ischemic cardiomyopathy: (19) HTN (hypertension): (20) Klebsiella infection: History of Present Illness Chief Complaint: sob Primary Care Provider: Edd Alvarez MD The patient is a 68-year-old male who presented to ER with complaints of increasing shortness of breath since yesterday. He has also noted increasing swelling of the legs since yesterday. Today he s having intermittent episodes of chest pain. The further work-up done in the emergency room shows that patient has acute on chronic congestive heart failure. He will be admitted for further evaluation and management. Allergies Allergy/AdvReac Type Severity Reaction Status Date / Time lorazepam [From Ativan] Allergy Confusion Verified 03/16/19 09:38 Home Medications Home Medications Medication Instructions Recorded Confirmed Type aspirin [Aspir-81] 81 mg PO DAILY 12/01/18 03/23/19 History cholecalciferol (vitamin D3) 2,000 unit PO DAILY 12/01/18 03/23/19 History [Vitamin D3] clopidogrel [Plavix] 75 mg PO DAILY 12/01/18 03/23/19 History finasteride 5 mg PO DAILY 12/01/18 03/23/19 History metoprolol succinate [Toprol XL] 50 mg PO DAILY 12/01/18 03/23/19 History gabapentin 100 mg PO BID #2 cap 12/16/18 03/23/19 Rx lidocaine 2 patch TRANSDERMAL DIRECTED 01/14/19 03/23/19 History tamsulosin [Flomax] 0.4 mg PO HS 01/14/19 03/23/19 History ferrous sulfate 325 mg PO BIDM #60 tab 01/21/19 03/23/19 Rx losartan 25 mg PO QAM #30 tab 01/21/19 03/23/19 Rx pantoprazole 40 mg PO BID #60 tab 01/21/19 03/23/19 Rx tramadol 50 mg PO Q4H PRN #12 tab 01/21/19 03/23/19 Rx quetiapine 25 mg PO HS 30 Days #30 tab 02/12/19 03/23/19 Rx furosemide 40 mg tablet 40 mg PO QAM #30 tab 02/19/19 03/23/19 Rx ascorbic acid (vitamin C) 500 mg PO DAILY 03/23/19 03/23/19 History atorvastatin 40 mg PO QPM 03/23/19 03/23/19 History cefdinir 300 mg PO BID 03/23/19 03/23/19 History hydrocodone-acetaminophen 1 tab PO Q4H PRN 03/23/19 03/23/19 History levothyroxine 25 mcg PO DAILY 03/23/19 03/23/19 History melatonin 5 mg PO HS 03/23/19 03/23/19 History multivitamin,ra-lbgf-bsnixhhs 1 tab PO DAILY 03/23/19 03/23/19 History [Therems-M] nystatin 1 applic EXT DAILY 03/23/19 03/23/19 History oxycodone 5 mg PO TID 03/23/19 03/23/19 History sulfamethoxazole-trimethoprim 1 tab PO BID 03/23/19 03/23/19 History [Bactrim DS] Past Med/Surg History Medical History Vitamin D deficiency (Acute) Thyroid disorder (Acute) Spinal stenosis (Acute) Restless legs syndrome (Acute) Diverticulosis (Acute) Disc degeneration, lumbar (Acute) Diabetic retinopathy (Acute) Diabetic peripheral neuropathy (Acute) Depression (Acute) Carotid artery stenosis (Acute) Anxiety (Acute) Ischemic cardiomyopathy EF WNL 11/2017 EF this year consistantly 25-30% Full dentures (Acute) HTN (hypertension) (Acute) Abscess in epidural space of lumbar spine Anemia CAD (coronary artery disease) CABG 2002 or so, severe multivessel disease - [place] around time of paraspinal abscess earlier this year - medical mgmt of his CAD thus far CHF (congestive heart failure) 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 Admitted [facility] 10/18/11 for onset of incapacitating cervical myelopathy. 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 Pt had c-spine surgery, subsequent prolonged hospital admission, complicated post-op course. Chronic kidney disease, stage III (moderate) Chronic sinusitis Dysphagia History of femoral angiogram adequate blood flow to foot History of non-ST elevation myocardial infarction (NSTEMI) ICD (implantable cardioverter-defibrillator) in place Sudden cardiac Post-op 2011 [facility]. Now has ICD. Surgical History History of esophagogastroduodenoscopy (EGD) History of colonoscopy History of cardiac cath 2011 AT [facility] - UNSURE IF HE HAS STENTS. History of tracheostomy Hx of transurethral resection of prostate History of cataract extraction with lens replacement Hx of tonsillectomy (Acute) H/O cervical spine surgery (Acute) ACDI C3-4, C7 corpectomy, removal of C7 intramedullary mass. History of lumbar spinal fusion (Acute) S/P triple vessel bypass (Acute) [facility] 2002 History of incision and drainage Lumbar spine on 08/11; complicated by difficult intubation with only #6.5 ETT able to be placed and patient kept intubated post op History of lumbar surgery 09/10/18 Glidescope 3 okay visualization but difficulty passing ETT, unable to pass 8.0, able to pass 7.0 with some difficulty Family History Mother , age 68 of COPD and respiratory issues COPD (chronic obstructive pulmonary disease) Father , in his 40s of an [place] Myocardial infarction Other Diabetes Hypertension No pertinent family history Social History Preferred Language: Belarusian Communication Ability: Impaired Communication Ability Comment: confusion Visual Impairment: No Limitations Hearing Ability: Normal Explosion Welder Required: No Beliefs That Will Affect Care: None marital status: Current Living Situation: [facility] Current Living Situation Comment: lives at [facility] 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al status: retired and disabled 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: 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 [employer] Feels Safe at Home: Yes Safety Concerns: Feels Safe At This Time Smoking Status: Never smoker Tobacco Type: smokeless tobacco ; Second Hand Exposure: No ; Hx Alcohol Use: No Hx Substance Use: No Review of Systems Respiratory: + cough, + dyspnea and + dyspnea on exertion Cardiovascular: + dyspnea, + dyspnea on exertion, + orthopnea and + edema Physical Exam Constitutional: WD/WN, vitals as above Eyes: PERRL, conjunctivae normal, anicteric sclerae ENMT: external ear and nose normal, oropharynx normal Neck: trachea midline, no thyromegaly Respiratory: + respiratory distress, + labored breathing and + prolonged expiratory phase Auscultation: + diminished lung sounds and + crackles Cardiovascular: Rate/Rhythm: regular rhythm Heart Sounds: normal S1 Vessels: + JVD Extremities: + edema Chest (Breasts): normal inspection/palpation of breasts Gastrointestinal (Abdomen): Inspection/Auscultation: + abdomen distended Skin: + fluctulance Neurologic: patellar DTR's 2+ bilat, sensation intact Genitourinary: no testicular masses, no penis abnormality Lymphatic: no cervical or axillary lymphadenopathy Results & Data Vital Signs (Past 12 Hours) Vital Signs Temp Pulse Pulse Resp BP BP Pulse Ox 03/23/19 19:09 68 16 122/89 99 03/23/19 18:30 66 18 100 03/23/19 18:12 61 101/46 L 92 03/23/19 18:00 65 16 93 03/23/19 17:30 64 19 123/68 96 03/23/19 17:00 65 20 131/70 95 03/23/19 16:30 62 25 H 117/64 96 03/23/19 16:10 64 18 108/65 96 03/23/19 16:09 65 23 108/65 96 03/23/19 16:00 64 22 03/23/19 15:30 66 20 95 03/23/19 15:20 97 03/23/19 15:18 67 19 96 03/23/19 15:07 99.0 F 67 16 133/99 97 03/23/19 15:00 67 22 133/90 96 Code Status & VTE Plan Code Status full code VTE Prophylaxis Plan VTE Prophylaxis will be ordered: Yes PG Care Time/CCT Total # of Minutes Spent Total Time Spent: 60 Total Time Spent with Patient: Total time spent is greater than 50% in coordination of care (as documented) at patient's floor/unit and/or counseling patient: (1) Osteomyelitis of foot Laterality: left Osteomyelitis type: unspecified type Qualified Code(s): M86.9 - Osteomyelitis, unspecified (2) CHF (congestive heart failure) Heart failure chronicity: unspecified Heart failure type: unspecified Qualified Code(s): I50.9 - Heart failure, unspecified (3) Chest pain Chest pain type: unspecified Qualified Code(s): R07.9 - Chest pain, unspecified (4) Coronary artery disease Coronary Disease-Associated Artery/Lesion type: [place] artery [place] vs. transplanted heart: [place] heart Associated angina: without angina Qualified Code(s): I25.10 - Atherosclerotic heart disease of [place] coronary artery without angina pectoris
[2019-03-23] MEDS: GABAPENTIN 100 MG CAP PO SCH (23:53)
[2019-03-23] MEDS: HYDROCODONE/ACETAMOPHEN 5/325MG TAB PO PRN (23:53)
[2019-03-23] MEDS: PANTOprazole 40 MG TAB PO SCH (23:53)
[2019-03-24] MEDS ORDERED: INFLUENZA VACCINE HIGH DOSE 65+ 0.5 ML SYR IM ONE (05:15)
[2019-03-24] MEDS ORDERED: INFLUENZA ADMINISTRATION CHARGE ONE (05:15)
[2019-03-24] MEDS: LEVOTHYROXINE SODIUM 25 MCG TABLET PO SCH (05:45)
[2019-03-24] MEDS: ASPIRIN 81 MG ECTAB PO SCH (08:08)
[2019-03-24] MEDS: METOPROLOL SUCC 50MG EXT REL TAB PO SCH (08:08)
[2019-03-24] MEDS: FUROSEMIDE 40 MG TAB PO SCH (08:08)
[2019-03-24] MEDS: OXYCODONE HCL IR 5 MG TAB (IMMEDIATE RELEASE) PO SCH ×3 (08:08→20:22)
[2019-03-24] MEDS: CHOLECALCIFEROL 1,000 UNITS TAB PO SCH (08:08)
[2019-03-24] MEDS: CLOPIDOGREL BISULFATE 75 MG TAB PO SCH (08:08)
[2019-03-24] MEDS: PANTOprazole 40 MG TAB PO SCH ×2 (08:09→20:22)
[2019-03-24] MEDS: GABAPENTIN 100 MG CAP PO SCH ×2 (08:09→20:23)
[2019-03-24] MEDS: CEROVITE ADV FORMULA TAB PO SCH (08:09)
[2019-03-24] MEDS: FERROUS SULFATE 325 MG TAB PO SCH ×2 (08:09→15:49)
[2019-03-24] MEDS: LOSARTAN POTASSIUM 25 MG TAB PO SCH (08:09)
[2019-03-24] MEDS: ASCORBIC ACID 500 MG TAB PO SCH (08:09)
[2019-03-24] MEDS: NYSTATIN OINT 15 GM TUBE EXT SCH (08:10)
[2019-03-24] MEDS: FINASTERIDE 5 MG TAB PO SCH (08:40)
[2019-03-24] MEDS ORDERED: FUROSEMIDE 40 MG TAB PO ONE (08:49)
--- NOTE | 2019-03-24 08:58 | Hospitalist Progress Note ---
Date of Service March 24, 2019 Assessment & Plan (1) Chronic systolic heart failure: acute on chronic systolic heart failure, may be due to going home and eating/drinking more likely difficult to weigh him at home, will need to discuss negative 1300mL this morning after Lasix 40mg IV last night will give 80mg PO Lasix this morning and follow his I/O check BMP this morning continue on Toprol, Losartan (2) Ischemic cardiomyopathy: continue on Losartan and Toprol for nursing home management (3) Osteomyelitis of foot: Continue the antibiotics per home medication list which was recommended by ID Cefdinir 300mg BID (4) Chest pain: no active chest pain, troponin was only 0.017 on admission will repeat later today (5) Pressure ulcer of left heel, stage 4: Wound care consult in am Continue with antibiotics for osteomyelitis. (6) PAD (peripheral artery disease): continue antiplatelets (7) Anemia in chronic illness: Hb is stable at 9.2 on admission, repeat today (8) Obese: encourage weight loss through diet control (9) Coronary artery disease: no chest pain continue antiplatelets, statin therapy (10) Cardiac defibrillator in place: (11) Obstructive sleep apnea: (12) Uncontrolled type 2 diabetes mellitus with neurologic complication, with long-term current use of insulin: discussed with , he is unsure what they were using at [facility] will place on Novolog SS for now (13) BPH (benign prostatic hyperplasia): Flomax urinating well without luna (14) Thyroid disorder: (15) Anxiety: (16) HTN (hypertension): (17) Klebsiella infection: Subjective patient is breathing a little better, no chest pain since admission he said that he made a lot of urine overnight after getting Lasix 40mg IV he ate okay this morning, says he does not like the food no fever/chills, no cough, no abdominal pain will check labs this AM the patient says he is now at home, no longer at SNF he went home this past weekend but had to come to the hospital for shortness of breath perhaps some dietary changes when going home lead to his CHF Review of Systems Review of Systems: All systems reviewed & are unremarkable except as noted in HPI & below Constitutional: + fatigue and + weakness; no fever, no chills and no sweats Respiratory: + dyspnea; no cough and no wheezing Cardiovascular: + dyspnea and + edema; no chest pain Gastrointestinal: no abdominal pain, no nausea, no vomiting, no constipation and no diarrhea/loose stools Genitourinary: no dysuria and no difficulty urinating Physical Exam Constitutional: WD/WN, vitals as above + overweight Eyes: PERRL, conjunctivae normal, anicteric sclerae ENMT: external ear and nose normal, oropharynx normal Neck: trachea midline, no thyromegaly Respiratory: normal respiratory effort; no respiratory distress Auscultation: + diminished lung sounds (bases) and + rales (bases) Cardiovascular: Rate/Rhythm: regular rate and regular rhythm Heart Sounds: normal S1 and normal S2; no murmur Vessels: no JVD Extremities: + edema (trace in legs bilaterally) Gastrointestinal (Abdomen): normal bowel sounds, soft, nontender, no hepatosplenomegaly Musculoskeletal: Head/Neck/Chest: normocephalic and head atraumatic Extremities: extremities normal to inspection, + limited ROM of extremities (due to weakness) and + abnormal strength (cannot transition out of bed) Skin: no rashes, warm and dry Neurologic: patellar DTR's 2+ bilat, sensation intact and PERRL, EOMI, accommodation nl, no face palsy, no dysarthria Psychiatric: A+Ox3, euthymic affect Lymphatic: no cervical or axillary lymphadenopathy Results & Data Vital Signs (Past 12 Hours) Vital Signs Temp Pulse Pulse Resp BP BP Pulse Ox 03/24/19 06:35 36.8 C 64 19 121/70 97 03/24/19 03:54 36.3 C L 61 19 123/81 96 03/24/19 00:20 71 03/23/19 23:15 36.8 C 70 20 124/79 100 03/23/19 22:49 65 20 121/66 99 03/23/19 21:49 65 20 117/61 95 Laboratory Results Laboratory Results - last 24 hr 03/23/19 03/23/19 03/24/19 16:05 16:05 07:25 WBC 6.52 RBC 3.06 L Hgb 9.2 L Hct 28.6 L MCV 93.5 MCH 30.1 MCHC 32.2 RDW Std Deviation 55.4 H RDW Coeff of Norbert 16.3 H Plt Count 186 MPV 9.7 Immature Gran % (Auto) 0.2 Neut % (Auto) 71.6 Lymph % (Auto) 14.3 Cal[place]oun % (Auto) 9.8 Eos % (Auto) 3.5 Baso % (Auto) 0.6 Immature Gran # (Auto) 0.01 Neut # (Auto) 4.67 Lymph # (Auto) 0.93 L [place] # (Auto) 0.64 H Eos # (Auto) 0.23 Baso # (Auto) 0.04 Sodium 136 Potassium 4.3 Chloride 103 Carbon Dioxide 26 Anion Gap 7.0 BUN 26 H Creatinine 1.22 Est Cr Clr Drug Dosing 69.1 Est GFR ( Amer) 71.2 Est GFR (Non-Af Amer) 61.4 BUN/Creatinine Ratio 21.6 H Glucose 133 H POC Glucose 144 H Calcium 9.0 Phosphorus 4.2 Magnesium 1.8 Total Bilirubin 0.5 AST 68 H ALT 110 H Alkaline Phosphatase 100 Troponin I 0.017 NT-Pro-B Natriuret Pep 7649 H Total Protein 6.6 Albumin 3.2 L Globulin 3.4 Albumin/Globulin Ratio 0.9 Lipase 48 L 03/24/19 03/24/19 08:54 08:54 WBC 6.60 RBC 3.07 L Hgb 9.3 L Hct 28.7 L MCV 93.5 MCH 30.3 MCHC 32.4 RDW Std Deviation 55.8 H RDW Coeff of Norbert 16.2 H Plt Count 175 MPV 9.5 Immature Gran % (Auto) Neut % (Auto) Lymph % (Auto) [place] % (Auto) Eos % (Auto) Baso % (Auto) Immature Gran # (Auto) Neut # (Auto) Lymph # (Auto) [place] # (Auto) Eos # (Auto) Baso # (Auto) Sodium 135 L Potassium 4.1 Chloride 102 Carbon Dioxide 26 Anion Gap 7.0 BUN 24 H Creatinine 1.20 Est Cr Clr Drug Dosing 69.7 Est GFR ( Amer) 72.6 Est GFR (Non-Af Amer) 62.6 BUN/Creatinine Ratio 20.2 H Glucose 166 H POC Glucose Calcium 8.9 Phosphorus Magnesium Total Bilirubin AST ALT Alkaline Phosphatase Troponin I NT-Pro-B Natriuret Pep Total Protein Albumin Globulin Albumin/Globulin Ratio Lipase Medications Administered Current Inpatient Medications Hydrocodone Bitart/Acetaminophen ([place] 5/325) 1 tab PO Q4H PRN PRN Reason: Pain Stop: 04/06/19 22:56 Last Admin: 03/24/19 09:46 Dose: 1 tab Documented by: Ascorbic Acid (Vitamin C) 500 mg PO DAILY KAYLYNN Stop: 04/23/19 08:59 Last Admin: 03/24/19 08:09 Dose: 500 mg Documented by: Aspirin (Ecotrin Ectab) 81 mg PO DAILY KAYLYNN Stop: 04/23/19 08:59 Last Admin: 03/24/19 08:08 Dose: 81 mg Documented by: Atorvastatin Calcium (Lipitor) 40 mg PO QPM KAYLYNN Stop: 04/23/19 20:59 Clopidogrel Bisulfate (Plavix) 75 mg PO DAILY KAYLYNN Stop: 04/23/19 08:59 Last Admin: 03/24/19 08:08 Dose: 75 mg Documented by: Ferrous Sulfate (Feosol) 325 mg PO BIDM KAYLYNN Stop: 04/23/19 07:59 Last Admin: 03/24/19 08:09 Dose: 325 mg Documented by: Finasteride (Proscar) 5 mg PO DAILY KAYLYNN Stop: 04/23/19 08:59 Last Admin: 03/24/19 08:40 Dose: 5 mg Documented by: Furosemide (Lasix) 40 mg PO QAM KAYLYNN Stop: 04/23/19 08:59 Last Admin: 03/24/19 08:08 Dose: 40 mg Documented by: Gabapentin (Neurontin) 100 mg PO BID [facility] Stop: 04/22/19 22:56 Last Admin: 03/24/19 08:09 Dose: 100 mg Documented by: Levothyroxine Sodium (Synthroid) 25 mcg PO DAILYBB KAYLYNN Stop: 04/23/19 06:29 Last Admin: 03/24/19 05:45 Dose: 25 mcg Documented by: Losartan Potassium (Cozaar) 25 mg PO QAM KAYLYNN Stop: 04/23/19 08:59 Last Admin: 03/24/19 08:09 Dose: 25 mg Documented by: Metoprolol Succinate (Toprol Xl) 50 mg PO DAILY [facility] Stop: 04/23/19 08:59 Last Admin: 03/24/19 08:08 Dose: 50 mg Documented by: Multivitamins/Minerals (Multivitamin W/ Minerals Tab) 1 tab PO DAILY KYALYNN Stop: 04/23/19 08:59 Last Admin: 03/24/19 08:09 Dose: 1 tab Documented by: Nystatin (Mycostatin) 1 appln EXT PRN PRN PRN Reason: Affected Skin Folds Stop: 04/22/19 16:24 Last Admin: 03/23/19 16:34 Dose: 1 appln Documented by: Nystatin (Mycostatin) 1 appln EXT DAILY KAYLYNN Stop: 04/23/19 08:59 Last Admin: 03/24/19 08:10 Dose: 1 appln Documented by: Oxycodone HCl (Roxicodone Immediate Rel) 5 mg PO TID KAYLYNN Stop: 04/07/19 08:59 Last Admin: 03/24/19 08:08 Dose: 5 mg Documented by: Pantoprazole Sodium (Protonix) 40 mg PO BID KAYLYNN Stop: 04/22/19 22:56 Last Admin: 03/24/19 08:09 Dose: 40 mg Documented by: Quetiapine Fumarate (Seroquel) 25 mg PO HS KAYLYNN Stop: 04/23/19 20:59 Tamsulosin HCl (Flomax) 0.4 mg PO HS KAYLYNN Stop: 04/23/19 20:59 Tramadol HCl (Ultram) 50 mg PO Q4H PRN PRN Reason: pain Stop: 04/22/19 22:56 Vitamin D (Vitamin D3) 2,000 units PO DAILY KAYLYNN Stop: 04/23/19 08:59 Last Admin: 03/24/19 08:08 Dose: 2,000 units Documented by: PG Care Time/CCT Total # of Minutes Spent Total Time Spent with Patient: Total time spent is greater than 50% in coordination of care (as documented) at patient's floor/unit and/or counseling patient: (1) Coronary artery disease Associated angina: without angina Coronary Disease-Associated Artery/Lesion type: [place] artery [place] vs. transplanted heart: [place] heart Qualified Code(s): I25.10 - Atherosclerotic heart disease of [place] coronary artery without angina pectoris (2) Osteomyelitis of foot Laterality: left Osteomyelitis type: unspecified type Qualified Code(s): M86.9 - Osteomyelitis, unspecified (3) Chest pain Chest pain type: unspecified Qualified Code(s): R07.9 - Chest pain, unspecified
[2019-03-24 09:11] LABS: Hematocrit (blood only) 28.7 % (42-52); Hemoglobin 9.3 g/dL (14.0-18.0); Mean Corpuscular Hemoglobin 30.3 pg (25-34); Mean Corpuscular Hgb Conc 32.4 g/dL (32-36); Mean Corpuscular Volume 93.5 fL (80-100); Mean Platelet Volume 9.5 fL (7.4-10.4); Platelet Count 175 K/uL (130-400); RDW Coefficient of Variation 16.2 % (11.5-14.5); RDW Standard Deviation 55.8 fL (36.4-46.3); Red Blood Count 3.07 M/uL (4.7-6.1)
[2019-03-24 09:41] LABS: BUN Creatinine Ratio 20.2 (10-20); Calcium 8.9 mg/dl (8.5-10.1); Creatinine Clr Calc Pharmacy 69.7 ml/min; Est GFR (African American) 72.6; Est GFR (Non-African American) 62.6; Potassium 4.1 mmol/L (3.5-5.1)
[2019-03-24] MEDS: HYDROCODONE/ACETAMOPHEN 5/325MG TAB PO PRN (09:46)
[2019-03-24] MEDS ORDERED: GLUCOSE 40% GEL 15 GM TUBE PO PRN (13:45)
[2019-03-24] MEDS ORDERED: DEXTROSE 50% 50 ML SYRINGE IV PRN (13:45)
[2019-03-24] MEDS ORDERED: CARBOHYDRATES FOR HYPOGLYCEMIA PO PRN (13:45)
[2019-03-24] MEDS ORDERED: GLUCOSE 10 TABS/TUBE PO PRN (13:45)
[2019-03-24] MEDS ORDERED: GLUCAGON FOR INJ 1 MG VIAL IM PRN (13:45)
--- NOTE | 2019-03-24 14:15 | Consultation Report ---
DATE OF CONSULTATION: 03/24/2019 HISTORY OF PRESENT ILLNESS: The patient is a 68-year-old white male being seen and evaluated as a consult for left heel neuropathic ulcer who had previously undergone debridement by Dr. Guillermo on 02/06/2019. He was recently admitted to the hospital with congestive heart failure, coronary artery disease, fluid retention and is currently being worked up medically for fluid retention. He has an ulcer on his left heel measuring 8 x 4 x 1 that was previously debrided, saucerized and placement of Stimulan beads. He has been seen by Dr. Guillermo 2 weeks prior and is currently on intravenous antibiotics as well. His previous culture showed Proteus and MRSA. PLAN: At this point, we will discuss with Dr. Guillermo. Continue with IV antibiotics and continue to follow with you.
[2019-03-24] MEDS: ONDANSETRON INJ 2 MG/ML 2 ML VIAL IV PRN (14:27)
[2019-03-24] MEDS: TRAMADOL HCL 50 MG TABLET PO PRN (15:49)
[2019-03-24] MEDS: INSULIN ASPART 100 UNITS/ML 3 ML PEN SC SCH ×2 (16:58→20:36)
[2019-03-24] MEDS: TAMSULOSIN HCL 0.4 MG CAP PO SCH (20:22)
[2019-03-24] MEDS: ATORVASTATIN 40 MG TAB PO SCH (20:22)
[2019-03-24] MEDS: QUETIAPINE FUMARATE 25 MG TABLET PO SCH (20:22)
[2019-03-24] MEDS ORDERED: NON-FORMULARY MEDICATION (Melatonin 5 MG) PO SCH (21:00)
[2019-03-25] MEDS: HYDROCODONE/ACETAMOPHEN 5/325MG TAB PO PRN (01:30)
[2019-03-25] MEDS: LEVOTHYROXINE SODIUM 25 MCG TABLET PO SCH (06:00)
[2019-03-25] MEDS: CEROVITE ADV FORMULA TAB PO SCH (08:56)
[2019-03-25] MEDS: ASPIRIN 81 MG ECTAB PO SCH (08:56)
[2019-03-25] MEDS: CLOPIDOGREL BISULFATE 75 MG TAB PO SCH (08:56)
[2019-03-25] MEDS: METOPROLOL SUCC 50MG EXT REL TAB PO SCH (08:56)
[2019-03-25] MEDS: PANTOprazole 40 MG TAB PO SCH ×2 (08:56→20:09)
[2019-03-25] MEDS: LOSARTAN POTASSIUM 25 MG TAB PO SCH (08:56)
[2019-03-25] MEDS: FUROSEMIDE 40 MG TAB PO SCH ×2 (08:57→16:05)
[2019-03-25] MEDS: ASCORBIC ACID 500 MG TAB PO SCH (08:57)
[2019-03-25] MEDS: FINASTERIDE 5 MG TAB PO SCH (08:57)
[2019-03-25] MEDS: CHOLECALCIFEROL 1,000 UNITS TAB PO SCH (08:57)
[2019-03-25] MEDS: GABAPENTIN 100 MG CAP PO SCH ×2 (08:57→20:09)
[2019-03-25] MEDS: NYSTATIN OINT 15 GM TUBE EXT SCH (08:58)
[2019-03-25] MEDS: FERROUS SULFATE 325 MG TAB PO SCH ×2 (08:58→16:05)
[2019-03-25] MEDS: INSULIN ASPART 100 UNITS/ML 3 ML PEN SC SCH ×4 (09:01→20:19)
[2019-03-25] MEDS: OXYCODONE HCL IR 5 MG TAB (IMMEDIATE RELEASE) PO SCH ×3 (09:11→20:09)
[2019-03-25 09:41] LABS: BUN Creatinine Ratio 19.1 (10-20); Calcium 8.6 mg/dl (8.5-10.1); Creatinine Clr Calc Pharmacy 64.6 ml/min; Est GFR (African American) 66.5; Est GFR (Non-African American) 57.4; Potassium 4.2 mmol/L (3.5-5.1)
[2019-03-25] MEDS: CEFDINIR 300 MG CAP PO SCH ×2 (14:40→20:10)
[2019-03-25] MEDS: ONDANSETRON INJ 2 MG/ML 2 ML VIAL IV PRN (17:37)
[2019-03-25] MEDS: TAMSULOSIN HCL 0.4 MG CAP PO SCH (20:09)
[2019-03-25] MEDS: QUETIAPINE FUMARATE 25 MG TABLET PO SCH (20:09)
[2019-03-25] MEDS: ATORVASTATIN 40 MG TAB PO SCH (20:10)
--- NOTE | 2019-03-25 23:16 | Hospitalist Progress Note ---
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 (6) PAD (peripheral artery disease): continue antiplatelets (7) Anemia in chronic illness: Hb is stable, no need for daily labs (8) Obese: encourage weight loss through diet control (9) Coronary artery disease: no chest pain continue antiplatelets, statin therapy (10) Cardiac defibrillator in place: (11) Obstructive sleep apnea: (12) Uncontrolled type 2 diabetes mellitus with neurologic complication, with long-term current use of insulin: discussed with , he is unsure what they were using at [facility] will place on Novolog SS for now (13) BPH (benign prostatic hyperplasia): Flomax urinating well without luna (14) Thyroid disorder: (15) Anxiety: (16) HTN (hypertension): Subjective patient breathing even better, able to lay flat no fever or chills he is diuresing well, negative 3 liters on admission d/w his , she was not aware of fluid restriction, he was drinking whatever he wanted at home reviewed labs, Cr and electrolytes stable appreciate ortho consult, they will give recommendations about heel his says that he will need plastics consult Review of Systems Review of Systems: All systems reviewed & are unremarkable except as noted in HPI & below Constitutional: + fatigue and + weakness; no fever Respiratory: + dyspnea on exertion; no cough and no dyspnea Cardiovascular: + edema; no chest pain Gastrointestinal: no abdominal pain, no nausea, no vomiting, no constipation and no diarrhea/loose stools Physical Exam Constitutional: WD/WN, vitals as above + overweight Eyes: PERRL, conjunctivae normal, anicteric sclerae ENMT: external ear and nose normal, oropharynx normal Neck: trachea midline, no thyromegaly Respiratory: normal respiratory effort; no respiratory distress Auscultation: + diminished lung sounds (bases) and + rales (bases) Cardiovascular: Rate/Rhythm: regular rate and regular rhythm Heart Sounds: normal S1 and normal S2; no murmur Vessels: no JVD Extremities: + edema (trace in legs bilaterally) Gastrointestinal (Abdomen): normal bowel sounds, soft, nontender, no hepatosplenomegaly Musculoskeletal: Head/Neck/Chest: normocephalic and head atraumatic Extremities: extremities normal to inspection, + limited ROM of extremities (due to weakness) and + abnormal strength (cannot transition out of bed) Skin: no rashes, warm and dry Neurologic: patellar DTR's 2+ bilat, sensation intact and PERRL, EOMI, accommodation nl, no face palsy, no dysarthria Psychiatric: A+Ox3, euthymic affect Lymphatic: no cervical or axillary lymphadenopathy Results & Data Vital Signs (Past 12 Hours) Vital Signs Temp Pulse Pulse Pulse Resp BP BP 03/25/19 23:03 36.6 C 60 20 104/70 03/25/19 19:00 36.9 C 60 20 107/67 03/25/19 18:32 66 03/25/19 15:37 37.0 C 59 L 18 108/59 L 03/25/19 12:14 36.5 C 61 18 120/71 Pulse Ox 03/25/19 23:03 93 03/25/19 19:00 93 03/25/19 18:32 03/25/19 15:37 96 03/25/19 12:14 91 Laboratory Results Laboratory Results - last 24 hr 03/25/19 03/25/19 03/25/19 07:38 08:48 11:49 Sodium 133 L Potassium 4.2 Chloride 100 Carbon Dioxide 27 Anion Gap 7.0 BUN 25 H Creatinine 1.29 Est Cr Clr Drug Dosing 64.6 Est GFR ( Amer) 66.5 Est GFR (Non-Af Amer) 57.4 BUN/Creatinine Ratio 19.1 Glucose 126 H POC Glucose 106 H 125 H Calcium 8.6 03/25/19 03/25/19 16:54 20:07 Sodium Potassium Chloride Carbon Dioxide Anion Gap BUN Creatinine Est Cr Clr Drug Dosing Est GFR ( Amer) Est GFR (Non-Af Amer) BUN/Creatinine Ratio Glucose POC Glucose 172 H 141 H Calcium Medications Administered Current Inpatient Medications Hydrocodone Bitart/Acetaminophen ([place] 5/325) 1 tab PO Q4H PRN PRN Reason: Pain Stop: 04/06/19 22:56 Last Admin: 03/25/19 01:30 Dose: 1 tab Documented by: Ascorbic Acid (Vitamin C) 500 mg PO DAILY KAYLYNN Stop: 04/23/19 08:59 Last Admin: 03/25/19 08:57 Dose: 500 mg Documented by: Aspirin (Ecotrin Ectab) 81 mg PO DAILY KAYLYNN Stop: 04/23/19 08:59 Last Admin: 03/25/19 08:56 Dose: 81 mg Documented by: Atorvastatin Calcium (Lipitor) 40 mg PO QPM KAYLYNN Stop: 04/23/19 20:59 Last Admin: 03/25/19 20:10 Dose: 40 mg Documented by: Cefdinir (Omnicef Cap) 300 mg PO BID KAYLYNN Stop: 04/04/19 12:29 Last Admin: 03/25/19 20:10 Dose: 300 mg Documented by: Clopidogrel Bisulfate (Plavix) 75 mg PO DAILY KAYLYNN Stop: 04/23/19 08:59 Last Admin: 03/25/19 08:56 Dose: 75 mg Documented by: Dextrose (Dextrose 50%) 25 - 50 ml IV UD PRN; Protocol PRN Reason: Hypoglycemia Protocol Stop: 04/23/19 13:44 Ferrous Sulfate (Feosol) 325 mg PO BIDM KAYLYNN Stop: 04/23/19 07:59 Last Admin: 03/25/19 16:05 Dose: 325 mg Documented by: Finasteride (Proscar) 5 mg PO DAILY KAYLYNN Stop: 04/23/19 08:59 Last Admin: 03/25/19 08:57 Dose: 5 mg Documented by: Furosemide (Lasix) 40 mg PO BID17 KAYLYNN Stop: 04/24/19 16:59 Last Admin: 03/25/19 16:05 Dose: 40 mg Documented by: Gabapentin (Neurontin) 100 mg PO BID KAYLYNN Stop: 04/22/19 22:56 Last Admin: 03/25/19 20:09 Dose: 100 mg Documented by: Glucagon (Glucagen) 1 mg IM UD PRN; Protocol PRN Reason: Hypoglycemia Protocol Stop: 04/23/19 13:44 Glucose (Glucose 40%) 15 - 30 gm PO UD PRN; Protocol PRN Reason: Hypoglycemia Protocol Stop: 04/23/19 13:44 Glucose (Dex4 Glucose) 4 - 8 tabs PO UD PRN; Protocol PRN Reason: Hypoglycemia Protocol Stop: 04/23/19 13:44 Insulin Aspart (Novolog Flexpen) 0 units SC ACHS [facility] Stop: 04/23/19 16:29 Last Admin: 03/25/19 20:19 Dose: Not Given Documented by: Levothyroxine Sodium (Synthroid) 25 mcg PO DAILYBB [facility] Stop: 04/23/19 06:29 Last Admin: 03/25/19 06:00 Dose: 25 mcg Documented by: Losartan Potassium (Cozaar) 25 mg PO QAM [facility] Stop: 04/23/19 08:59 Last Admin: 03/25/19 08:56 Dose: 25 mg Documented by: Metoprolol Succinate (Toprol Xl) 50 mg PO DAILY [facility] Stop: 04/23/19 08:59 Last Admin: 03/25/19 08:56 Dose: 50 mg Documented by: Miscellaneous (Carbohydrates For Hypoglycemia) 15 - 30 gm PO UD PRN PRN Reason: Hypoglycemia Treatment Stop: 04/23/19 13:44 Multivitamins/Minerals (Multivitamin W/ Minerals Tab) 1 tab PO DAILY [facility] Stop: 04/23/19 08:59 Last Admin: 03/25/19 08:56 Dose: 1 tab Documented by: Nystatin (Mycostatin) 1 appln EXT PRN PRN PRN Reason: Affected Skin Folds Stop: 04/22/19 16:24 Last Admin: 03/23/19 16:34 Dose: 1 appln Documented by: Nystatin (Mycostatin) 1 appln EXT DAILY [facility] Stop: 04/23/19 08:59 Last Admin: 03/25/19 08:58 Dose: 1 appln Documented by: Ondansetron HCl (Zofran) 4 mg IV Q4H PRN PRN Reason: Nausea Stop: 04/23/19 13:24 Last Admin: 03/25/19 17:37 Dose: 4 mg Documented by: Oxycodone HCl (Roxicodone Immediate Rel) 5 mg PO TID [facility] Stop: 04/07/19 08:59 Last Admin: 03/25/19 20:09 Dose: 5 mg Documented by: Pantoprazole Sodium (Protonix) 40 mg PO BID KAYLYNN Stop: 04/22/19 22:56 Last Admin: 03/25/19 20:09 Dose: 40 mg Documented by: Quetiapine Fumarate (Seroquel) 25 mg PO HS KAYLYNN Stop: 04/23/19 20:59 Last Admin: 03/25/19 20:09 Dose: 25 mg Documented by: Tamsulosin HCl (Flomax) 0.4 mg PO HS KAYLYNN Stop: 04/23/19 20:59 Last Admin: 03/25/19 20:09 Dose: 0.4 mg Documented by: Tramadol HCl (Ultram) 50 mg PO Q4H PRN PRN Reason: pain Stop: 04/22/19 22:56 Last Admin: 03/24/19 15:49 Dose: 50 mg Documented by: Vitamin D (Vitamin D3) 2,000 units PO DAILY KAYLYNN Stop: 04/23/19 08:59 Last Admin: 03/25/19 08:57 Dose: 2,000 units Documented by: PG Care Time/CCT Total # of Minutes Spent Total Time Spent with Patient: Total time spent is greater than 50% in coordination of care (as documented) at patient's floor/unit and/or counseling patient: (1) Coronary artery disease Associated angina: without angina Coronary Disease-Associated Artery/Lesion type: [place] artery [place] vs. transplanted heart: [place] heart Qualified Code(s): I25.10 - Atherosclerotic heart disease of [place] coronary artery without angina pectoris (2) Osteomyelitis of foot Laterality: left Osteomyelitis type: unspecified type Qualified Code(s): M86.9 - Osteomyelitis, unspecified (3) Chest pain Chest pain type: unspecified Qualified Code(s): R07.9 - Chest pain, unspecified
[2019-03-26] MEDS: LEVOTHYROXINE SODIUM 25 MCG TABLET PO SCH (06:15)
[2019-03-26] MEDS: OXYCODONE HCL IR 5 MG TAB (IMMEDIATE RELEASE) PO SCH ×3 (08:42→21:08)
[2019-03-26] MEDS: METOPROLOL SUCC 50MG EXT REL TAB PO SCH (08:42)
[2019-03-26] MEDS: CEROVITE ADV FORMULA TAB PO SCH (08:42)
[2019-03-26] MEDS: PANTOprazole 40 MG TAB PO SCH ×2 (08:42→21:02)
[2019-03-26] MEDS: GABAPENTIN 100 MG CAP PO SCH ×2 (08:43→21:01)
[2019-03-26] MEDS: CEFDINIR 300 MG CAP PO SCH ×2 (08:43→21:00)
[2019-03-26] MEDS: CLOPIDOGREL BISULFATE 75 MG TAB PO SCH (08:43)
[2019-03-26] MEDS: CHOLECALCIFEROL 1,000 UNITS TAB PO SCH (08:43)
[2019-03-26] MEDS: FERROUS SULFATE 325 MG TAB PO SCH ×2 (08:44→16:47)
[2019-03-26] MEDS: LOSARTAN POTASSIUM 25 MG TAB PO SCH (08:44)
[2019-03-26] MEDS: ASPIRIN 81 MG ECTAB PO SCH (08:44)
[2019-03-26] MEDS: FUROSEMIDE 40 MG TAB PO SCH (08:45)
[2019-03-26] MEDS: NYSTATIN OINT 15 GM TUBE EXT SCH (08:46)
[2019-03-26] MEDS: FINASTERIDE 5 MG TAB PO SCH (08:46)
[2019-03-26] MEDS: ASCORBIC ACID 500 MG TAB PO SCH (08:47)
[2019-03-26] MEDS: INSULIN ASPART 100 UNITS/ML 3 ML PEN SC SCH ×4 (08:50→21:02)
--- NOTE | 2019-03-26 09:07 | Hospitalist Progress Note ---
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 (6) PAD (peripheral artery disease): continue antiplatelets (7) Anemia in chronic illness: Hb is stable, no need for daily labs (8) Obese: encourage weight loss through diet control (9) Coronary artery disease: no chest pain continue antiplatelets, statin therapy (10) Cardiac defibrillator in place: (11) Obstructive sleep apnea: (12) Uncontrolled type 2 diabetes mellitus with neurologic complication, with long-term current use of insulin: discussed with , he is unsure what they were using at [facility] will place on Novolog SS for now (13) BPH (benign prostatic hyperplasia): Flomax urinating well without luna (14) Thyroid disorder: (15) Anxiety: (16) HTN (hypertension): Subjective patient continues to respond well to Lasix, no change in Cr, will increase Lasix to 80mg PO BID reviewed prior weights, he has been below 90kg this past year, still with several kg to take off eating well d/w orthopedics, Dr. Guillermo will look at the patient's heel tomorrow no chest pain, no dyspnea at rest Review of Systems Review of Systems: All systems reviewed & are unremarkable except as noted in HPI & below Constitutional: + weakness; no fever Respiratory: + dyspnea on exertion; no cough and no dyspnea Cardiovascular: + edema; no chest pain Gastrointestinal: no abdominal pain, no nausea, no vomiting, no constipation and no diarrhea/loose stools Physical Exam Constitutional: WD/WN, vitals as above + overweight Eyes: PERRL, conjunctivae normal, anicteric sclerae ENMT: external ear and nose normal, oropharynx normal Neck: trachea midline, no thyromegaly Respiratory: normal respiratory effort; no respiratory distress Auscultation: + diminished lung sounds (bases) Cardiovascular: Rate/Rhythm: regular rate and regular rhythm Heart Sounds: normal S1 and normal S2; no murmur Vessels: no JVD Extremities: + edema (trace in legs bilaterally) Gastrointestinal (Abdomen): normal bowel sounds, soft, nontender, no hep atosplenomegaly Musculoskeletal: Head/Neck/Chest: normocephalic and head atraumatic Extremities: extremities normal to inspection, + limited ROM of extremities (due to weakness) and + abnormal strength (cannot transition out of bed) Skin: no rashes, warm and dry Neurologic: patellar DTR's 2+ bilat, sensation intact and PERRL, EOMI, accommodation nl, no face palsy, no dysarthria Psychiatric: A+Ox3, euthymic affect Lymphatic: no cervical or axillary lymphadenopathy Results & Data Vital Signs (Past 12 Hours) Vital Signs Temp Pulse Pulse Resp BP BP Pulse Ox 03/26/19 07:20 36.6 C 60 18 117/65 92 03/26/19 04:00 36.5 C 62 20 126/76 95 03/26/19 01:30 60 03/25/19 23:03 36.6 C 60 20 104/70 93 Laboratory Results Laboratory Results - last 24 hr 03/26/19 03/26/19 03/26/19 07:20 08:27 11:14 Sodium 133 L Potassium 4.4 Chloride 100 Carbon Dioxide 28 Anion Gap 5.0 BUN 27 H Creatinine 1.36 Est Cr Clr Drug Dosing 61.1 Est GFR ( Amer) 62.4 Est GFR (Non-Af Amer) 53.8 BUN/Creatinine Ratio 19.7 Glucose 126 H POC Glucose 137 H 147 H Calcium 8.6 03/26/19 03/26/19 16:32 20:18 Sodium Potassium Chloride Carbon Dioxide Anion Gap BUN Creatinine Est Cr Clr Drug Dosing Est GFR ( Amer) Est GFR (Non-Af Amer) BUN/Creatinine Ratio Glucose POC Glucose 253 H 177 H Calcium Medications Administered Current Inpatient Medications Hydrocodone Bitart/Acetaminophen ([place] 5/325) 1 tab PO Q4H PRN PRN Reason: Pain Stop: 04/06/19 22:56 Last Admin: 03/25/19 01:30 Dose: 1 tab Documented by: Ascorbic Acid (Vitamin C) 500 mg PO DAILY KAYLYNN Stop: 04/23/19 08:59 Last Admin: 03/26/19 08:47 Dose: 500 mg Documented by: Aspirin (Ecotrin Ectab) 81 mg PO DAILY KAYLYNN Stop: 04/23/19 08:59 Last Admin: 03/26/19 08:44 Dose: 81 mg Documented by: Atorvastatin Calcium (Lipitor) 40 mg PO QPM KAYLYNN Stop: 04/23/19 20:59 Last Admin: 03/26/19 21:00 Dose: 40 mg Documented by: Cefdinir (Omnicef Cap) 300 mg PO BID KAYLYNN Stop: 04/04/19 12:29 Last Admin: 03/26/19 21:00 Dose: 300 mg Documented by: Clopidogrel Bisulfate (Plavix) 75 mg PO DAILY KAYLYNN Stop: 04/23/19 08:59 Last Admin: 03/26/19 08:43 Dose: 75 mg Documented by: Dextrose (Dextrose 50%) 25 - 50 ml IV UD PRN; Protocol PRN Reason: Hypoglycemia Protocol Stop: 04/23/19 13:44 Ferrous Sulfate (Feosol) 325 mg PO BIDM KAYLYNN Stop: 04/23/19 07:59 Last Admin: 03/26/19 16:47 Dose: 325 mg Documented by: Finasteride (Proscar) 5 mg PO DAILY KAYLYNN Stop: 04/23/19 08:59 Last Admin: 03/26/19 08:46 Dose: 5 mg Documented by: Furosemide (Lasix) 80 mg PO BID17 KAYLYNN Stop: 04/25/19 16:59 Last Admin: 03/26/19 16:50 Dose: 80 mg Documented by: Gabapentin (Neurontin) 100 mg PO BID KAYLYNN Stop: 04/22/19 22:56 Last Admin: 03/26/19 21:01 Dose: 100 mg Documented by: Glucagon (Glucagen) 1 mg IM UD PRN; Protocol PRN Reason: Hypoglycemia Protocol Stop: 04/23/19 13:44 Glucose (Glucose 40%) 15 - 30 gm PO UD PRN; Protocol PRN Reason: Hypoglycemia Protocol Stop: 04/23/19 13:44 Glucose (Dex4 Glucose) 4 - 8 tabs PO UD PRN; Protocol PRN Reason: Hypoglycemia Protocol Stop: 04/23/19 13:44 Insulin Aspart (Novolog Flexpen) 0 units SC ACHS [facility] Stop: 04/23/19 16:29 Last Admin: 03/26/19 21:02 Dose: 1 units Documented by: Levothyroxine Sodium (Synthroid) 25 mcg PO DAILYBB [facility] Stop: 04/23/19 06:29 Last Admin: 03/26/19 06:15 Dose: 25 mcg Documented by: Losartan Potassium (Cozaar) 25 mg PO QAM [facility] Stop: 04/23/19 08:59 Last Admin: 03/26/19 08:44 Dose: 25 mg Documented by: Metoprolol Succinate (Toprol Xl) 50 mg PO DAILY [facility] Stop: 04/23/19 08:59 Last Admin: 03/26/19 08:42 Dose: 50 mg Documented by: Miscellaneous (Carbohydrates For Hypoglycemia) 15 - 30 gm PO UD PRN PRN Reason: Hypoglycemia Treatment Stop: 04/23/19 13:44 Multivitamins/Minerals (Multivitamin W/ Minerals Tab) 1 tab PO DAILY [facility] Stop: 04/23/19 08:59 Last Admin: 03/26/19 08:42 Dose: 1 tab Documented by: Nystatin (Mycostatin) 1 appln EXT PRN PRN PRN Reason: Affected Skin Folds Stop: 04/22/19 16:24 Last Admin: 03/23/19 16:34 Dose: 1 appln Documented by: Nystatin (Mycostatin) 1 appln EXT DAILY [facility] Stop: 04/23/19 08:59 Last Admin: 03/26/19 08:46 Dose: 1 appln Documented by: Ondansetron HCl (Zofran) 4 mg IV Q4H PRN PRN Reason: Nausea Stop: 04/23/19 13:24 Last Admin: 03/26/19 18:54 Dose: 4 mg Documented by: Oxycodone HCl (Roxicodone Immediate Rel) 5 mg PO TID [facility] Stop: 04/07/19 08:59 Last Admin: 03/26/19 21:08 Dose: 5 mg Documented by: Pantoprazole Sodium (Protonix) 40 mg PO BID [facility] Stop: 04/22/19 22:56 Last Admin: 03/26/19 21:02 Dose: 40 mg Documented by: Quetiapine Fumarate (Seroquel) 25 mg PO HS [facility]NN Stop: 04/23/19 20:59 Last Admin: 03/26/19 21:01 Dose: 25 mg Documented by: Tamsulosin HCl (Flomax) 0.4 mg PO HS [facility]LYNN Stop: 04/23/19 20:59 Last Admin: 03/26/19 21:01 Dose: 0.4 mg Documented by: Tramadol HCl (Ultram) 50 mg PO Q4H PRN PRN Reason: pain Stop: 04/22/19 22:56 Last Admin: 03/24/19 15:49 Dose: 50 mg Documented by: Vitamin D (Vitamin D3) 2,000 units PO DAILY KAYLYNN Stop: 04/23/19 08:59 Last Admin: 03/26/19 08:43 Dose: 2,000 units Documented by: PG Care Time/CCT Total # of Minutes Spent Total Time Spent with Patient: Total time spent is greater than 50% in coordination of care (as documented) at patient's floor/unit and/or counseling patient: (1) Coronary artery disease Associated angina: without angina Coronary Disease-Associated Artery/Lesion type: [place] artery [place] vs. transplanted heart: [place] heart Qualified Code(s): I25.10 - Atherosclerotic heart disease of [place] coronary artery without angina pectoris (2) Osteomyelitis of foot Laterality: left Osteomyelitis type: unspecified type Qualified Code(s): M86.9 - Osteomyelitis, unspecified (3) Chest pain Chest pain type: unspecified Qualified Code(s): R07.9 - Chest pain, unspecified
[2019-03-26] MEDS ORDERED: FUROSEMIDE 40 MG TAB PO ONE (09:30)
[2019-03-26 09:35] LABS: BUN Creatinine Ratio 19.7 (10-20); Calcium 8.6 mg/dl (8.5-10.1); Creatinine Clr Calc Pharmacy 61.1 ml/min; Est GFR (African American) 62.4; Est GFR (Non-African American) 53.8; Potassium 4.4 mmol/L (3.5-5.1)
[2019-03-26] MEDS: FUROSEMIDE 80 MG TAB PO SCH (16:50)
[2019-03-26] MEDS: ONDANSETRON INJ 2 MG/ML 2 ML VIAL IV PRN (18:54)
[2019-03-26] MEDS: ATORVASTATIN 40 MG TAB PO SCH (21:00)
[2019-03-26] MEDS: QUETIAPINE FUMARATE 25 MG TABLET PO SCH (21:01)
[2019-03-26] MEDS: TAMSULOSIN HCL 0.4 MG CAP PO SCH (21:01)
[2019-03-27] MEDS: LEVOTHYROXINE SODIUM 25 MCG TABLET PO SCH (06:27)
[2019-03-27] MEDS: NYSTATIN OINT 15 GM TUBE EXT SCH (07:37)
[2019-03-27] MEDS: ASCORBIC ACID 500 MG TAB PO SCH (07:39)
[2019-03-27] MEDS: CLOPIDOGREL BISULFATE 75 MG TAB PO SCH (07:40)
[2019-03-27] MEDS: PANTOprazole 40 MG TAB PO SCH ×2 (07:40→20:51)
[2019-03-27] MEDS: CEFDINIR 300 MG CAP PO SCH ×2 (07:40→20:49)
[2019-03-27] MEDS: OXYCODONE HCL IR 5 MG TAB (IMMEDIATE RELEASE) PO SCH ×3 (07:40→20:53)
[2019-03-27] MEDS: CHOLECALCIFEROL 1,000 UNITS TAB PO SCH (07:40)
[2019-03-27] MEDS: LOSARTAN POTASSIUM 25 MG TAB PO SCH (07:41)
[2019-03-27] MEDS: GABAPENTIN 100 MG CAP PO SCH ×2 (07:41→20:49)
[2019-03-27] MEDS: FUROSEMIDE 80 MG TAB PO SCH (07:41)
[2019-03-27] MEDS: CEROVITE ADV FORMULA TAB PO SCH (07:41)
[2019-03-27] MEDS: ASPIRIN 81 MG ECTAB PO SCH (07:42)
[2019-03-27] MEDS: METOPROLOL SUCC 50MG EXT REL TAB PO SCH (07:42)
[2019-03-27] MEDS: FERROUS SULFATE 325 MG TAB PO SCH ×2 (07:42→16:29)
[2019-03-27] MEDS: FINASTERIDE 5 MG TAB PO SCH (08:53)
[2019-03-27] MEDS: INSULIN ASPART 100 UNITS/ML 3 ML PEN SC SCH ×4 (08:55→20:39)
[2019-03-27 09:03] LABS: BUN Creatinine Ratio 22.4 (10-20); Calcium 8.7 mg/dl (8.5-10.1); Est GFR (Non-African American) 54.3; Potassium 4.3 mmol/L (3.5-5.1)
[2019-03-27] MEDS: TRAMADOL HCL 50 MG TABLET PO PRN ×2 (09:15→17:06)
--- NOTE | 2019-03-27 15:41 | Heart Failure Progress Note ---
Date of Service March 27, 2019 Mr. Cooper is a 67 year old male with a history of Type 2 DM with multiple complications, hypertension, dyslipidemia, multivessel CAD s/p CABG x 3 Vessels 2002 (DELATORRE to LAD, FERNANDO to Acute Marginal, Radial Artery Graft to OM), ischemic cardiomyopathy (LVEF 25% to 30% with RWMA's) s/p single chamber AICD, chronic systolic CHF, RBBB, sp PSF L1-L5 with epidural abscess requiring multiple I&D, osteomyelitis left foot, history C.diff, NSTEMI October 2018, and a history of sudden cardiac - who was admitted to [facility] on 03/23/19 for CHF. Recent cardiac studies: 1. 12/02/18 Echocardiogram: Left ventricular systolic function is severely reduced, EF 25-30%. Inferior wall akinesis, other rojas are hypokinetic. Mild mitral regurgitation. He has had multiple hospitalizations in 2019 mostly related to his spinal fusion and recurrent infections. He was most recently admitted 03/23/19 for acute exacerbation of congestive heart failure. He presented to the ED with complaints of progressive shortness of breath and orthopnea. He also noted intermittent chest pain and increased lower extremity edema. His symptoms began shortly after he returned home after a long-term stay at [facility]. His exacerbation was likely secondary to increased fluid intake and dietary indiscretion. Chest x- ray is consistent with worsening congestive heart failure and bilateral pleural effusions. EKG was sinus rhythm, rate was 66 beats per minute, there were no significant changes. BNP 7600 but has been more elevated in the past. Interrogat ion of patient AICD negative for any recent ventricular arrhythmias. He received IV Lasix in the ED and effect inadequate diuresis. He is -5 L so far this admission and his weight has decreased from 218 lb to 207 lb. He reports his symptoms are improving. His breathing has returned to baseline. He denies orthopnea and his edema is improving. Assessment & Plan (1) Acute on chronic systolic (congestive) heart failure: (2) Ischemic cardiomyopathy: Mr. Cooper has been referred to the [facility] heart failure program by Dr. Sergio Burr for discharge planning and further heart failure education. His current decompensation is likely secondary to increase fluid intake and possibly dietary indiscretion. His symptoms are improving and he continues to diurese. He has been net negative at least 1 L per day on Lasix 80 mg IV BID. Creatinine has been stable but BUN has increased to 30 suggesting he is likely near euvolemic. Anticipate transition to oral diuretics in the next 24-48 hours. Continue fluid restriction, less than 1500 mL per day. Recommend low-sodium diet, less than 2000 mg per day. Patient admits that he does not typically use added salt but does not pay attention to his food labels. He reports that his does most of the shopping and cooking. She is not available at this time but would encourage him to bring her to his follow-up appointment. May benefit from outpatient nutrition consult since he is also diabetic. He is nonambulatory and requires multiple assist for transfers. Daily standing weights will likely not be possible once he returns home. Transportation may also be an issue moving forward. Patient is on appropriate guideline based medical therapy for his cardiomyopathy. Continue metoprolol 50 mg daily and losartan 25 mg daily. Could consider transitioning him to Entresto if his blood pressure improves in the outpatient setting. Continue to titrate as BP and heart rate allow. Could also consider the addition of spironolactone in the setting of previous AK and EF of 25-30%. He has an ICD and it was interrogated this admission. Patient has been scheduled for heart failure follow-up 04/06 at 2:00 p.m. he should have BMP and magnesium levels drawn prior to his appointment. Recommend that this be arranged through home nursing. Results & Data Vital Signs (Past 12 Hours) Vital Signs Temp Pulse Pulse Resp BP Pulse Ox 03/27/19 14:58 97.9 F 59 L 16 101/64 99 03/27/19 11:59 97.7 F 60 16 119/72 99 03/27/19 07:36 97.7 F 66 16 116/66 94 03/27/19 04:52 60 03/27/19 04:10 97.5 F L 60 17 108/68 95 PG Care Time/CCT Total # of Minutes Spent Total Time Spent with Patient: Total time spent is greater than 50% in coordination of care (as documented) at patient's floor/unit and/or counseling patient:
--- NOTE | 2019-03-27 16:44 | Hospitalist Progress Note ---
Date of Service March 27, 2019 Assessment & Plan (1) Chronic systolic heart failure: acute on chronic systolic heart failure, seems to be due to fluid intake, he was unaware of fluid restriction, needs education likely difficult to weigh him at home will need follow up with heart failure clinic negative > 4000mL for admission less diuresis the past 24 hours despite increasing Lasix CO2 and BUN trending upward, likely intravasculalrly constricted will hold Lasix this afternoon plan to d/c home on Lasix 40mg PO daily continue on Toprol, Losartan referral to CHF clinic, Serenity Lopez will follow, will likely be phone calls since he does not leave house easily (2) Ischemic cardiomyopathy: 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 (6) PAD (peripheral artery disease): continue antiplatelets (7) Anemia in chronic illness: Hb is stable, no need for daily labs (8) Obese: encourage weight loss through diet control (9) Coronary artery disease: no chest pain continue antiplatelets, statin therapy (10) Cardiac defibrillator in place: (11) Obstructive sleep apnea: (12) Uncontrolled type 2 diabetes mellitus with neurologic complication, with long-term current use of insulin: discussed with , he is unsure what they were using at [facility] will place on Novolog SS for now (13) BPH (benign prostatic hyperplasia): Flomax urinating well without luna (14) Thyroid disorder: (15) Anxiety: (16) HTN (hypertension): Subjective patient breathing well, eating well reviewed labs, BUN and CO2 trending up, less diuresis, likely at the stage of euvolemia discussed with Serenity Lopez PA, she will follow with patient after discharge discussed with ortho, no new recommendations, patient will need referred to plastics at [place] outpatient no chest pain or pressure, no new complaints tentatively plan for discharge to home tomorrow Review of Systems Review of Systems: All systems reviewed & are unremarkable except as noted in HPI & below Physical Exam Constitutional: WD/WN, vitals as above + overweight Eyes: PERRL, conjunctivae normal, anicteric sclerae ENMT: external ear and nose normal, oropharynx normal Neck: trachea midline, no thyromegaly Respiratory: normal respiratory effort; no respiratory distress Cardiovascular: Rate/Rhythm: regular rate and regular rhythm Heart Sounds: normal S1 and normal S2; no murmur Vessels: no JVD Gastrointestinal (Abdomen): normal bowel sounds, soft, nontender, no hepatosplenomegaly Musculoskeletal: Head/Neck/Chest: normocephalic and head atraumatic Extremities: extremities normal to inspection, + limited ROM of extremities (due to weakness) and + abnormal strength (cannot transition out of bed) Skin: no rashes, warm and dry Neurologic: patellar DTR's 2+ bilat, sensation intact and PERRL, EOMI, accommodation nl, no face palsy, no dysarthria Psychiatric: A+Ox3, euthymic affect Lymphatic: no cervical or axillary lymphadenopathy Results & Data Vital Signs (Past 12 Hours) Vital Signs Temp Pulse Pulse Resp BP Pulse Ox 03/27/19 14:58 36.6 C 59 L 16 101/64 99 03/27/19 11:59 36.5 C 60 16 119/72 99 03/27/19 07:36 36.5 C 66 16 116/66 94 03/27/19 04:52 60 Laboratory Results Laboratory Results - last 24 hr 03/27/19 03/27/19 03/27/19 07:30 08:19 11:42 Sodium 135 L Potassium 4.3 Chloride 102 Carbon Dioxide 30 Anion Gap 3.0 BUN 30 H Creatinine 1.35 Est Cr Clr Drug Dosing 61.0 Est GFR ( Amer) 63.0 Est GFR (Non-Af Amer) 54.3 BUN/Creatinine Ratio 22.4 H Glucose 118 H POC Glucose 126 H 173 H Calcium 8.7 03/27/19 03/27/19 03/28/19 16:30 20:08 07:56 Sodium Potassium Chloride Carbon Dioxide Anion Gap BUN Creatinine Est Cr Clr Drug Dosing Est GFR ( Amer) Est GFR (Non-Af Amer) BUN/Creatinine Ratio Glucose POC Glucose 155 H 145 H 116 H Calcium Medications Administered Current Inpatient Medications Hydrocodone Bitart/Acetaminophen ([place] 5/325) 1 tab PO Q4H PRN PRN Reason: Pain Stop: 04/06/19 22:56 Last Admin: 03/25/19 01:30 Dose: 1 tab Documented by: Ascorbic Acid (Vitamin C) 500 mg PO DAILY KAYLYNN Stop: 04/23/19 08:59 Last Admin: 03/28/19 08:01 Dose: 500 mg Documented by: Aspirin (Ecotrin Ectab) 81 mg PO DAILY KAYLYNN Stop: 04/23/19 08:59 Last Admin: 03/28/19 08:00 Dose: 81 mg Documented by: Atorvastatin Calcium (Lipitor) 40 mg PO QPM KAYLYNN Stop: 04/23/19 20:59 Last Admin: 03/27/19 20:50 Dose: 40 mg Documented by: Cefdinir (Omnicef Cap) 300 mg PO BID KAYLYNN Stop: 04/04/19 12:29 Last Admin: 03/28/19 08:00 Dose: 300 mg Documented by: Clopidogrel Bisulfate (Plavix) 75 mg PO DAILY KAYLYNN Stop: 04/23/19 08:59 Last Admin: 03/28/19 08:00 Dose: 75 mg Documented by: Dextrose (Dextrose 50%) 25 - 50 ml IV UD PRN; Protocol PRN Reason: Hypoglycemia Protocol Stop: 04/23/19 13:44 Ferrous Sulfate (Feosol) 325 mg PO BIDM KAYLYNN Stop: 04/23/19 07:59 Last Admin: 03/28/19 08:01 Dose: 325 mg Documented by: Finasteride (Proscar) 5 mg PO DAILY KAYLYNN Stop: 04/23/19 08:59 Last Admin: 03/28/19 08:00 Dose: 5 mg Documented by: Gabapentin (Neurontin) 100 mg PO BID KAYLYNN Stop: 04/22/19 22:56 Last Admin: 03/28/19 08:01 Dose: 100 mg Documented by: Glucagon (Glucagen) 1 mg IM UD PRN; Protocol PRN Reason: Hypoglycemia Protocol Stop: 04/23/19 13:44 Glucose (Glucose 40%) 15 - 30 gm PO UD PRN; Protocol PRN Reason: Hypoglycemia Protocol Stop: 04/23/19 13:44 Glucose (Dex4 Glucose) 4 - 8 tabs PO UD PRN; Protocol PRN Reason: Hypoglycemia Protocol Stop: 04/23/19 13:44 Insulin Aspart (Novolog Flexpen) 0 units SC ACHS [facility]NN Stop: 04/23/19 16:29 Last Admin: 03/27/19 20:39 Dose: Not Given Documented by: Levothyroxine Sodium (Synthroid) 25 mcg PO DAILYBB [facility] Stop: 04/23/19 06:29 Last Admin: 03/28/19 05:49 Dose: 25 mcg Documented by: Losartan Potassium (Cozaar) 25 mg PO QAM KAYLYNN Stop: 04/23/19 08:59 Last Admin: 03/28/19 08:01 Dose: 25 mg Documented by: Metoprolol Succinate (Toprol Xl) 50 mg PO DAILY KAYLYNN Stop: 04/23/19 08:59 Last Admin: 03/28/19 08:00 Dose: 50 mg Documented by: Miscellaneous (Carbohydrates For Hypoglycemia) 15 - 30 gm PO UD PRN PRN Reason: Hypoglycemia Treatment Stop: 04/23/19 13:44 Multivitamins/Minerals (Multivitamin W/ Minerals Tab) 1 tab PO DAILY [facility] Stop: 04/23/19 08:59 Last Admin: 03/28/19 08:00 Dose: 1 tab Documented by: Nystatin (Mycostatin) 1 appln EXT PRN PRN PRN Reason: Affected Skin Folds Stop: 04/22/19 16:24 Last Admin: 03/23/19 16:34 Dose: 1 appln Documented by: Nystatin (Mycostatin) 1 appln EXT DAILY [facility]LYNN Stop: 04/23/19 08:59 Last Admin: 03/28/19 08:01 Dose: 1 appln Documented by: Ondansetron HCl (Zofran) 4 mg IV Q4H PRN PRN Reason: Nausea Stop: 04/23/19 13:24 Last Admin: 03/26/19 18:54 Dose: 4 mg Documented by: Oxycodone HCl (Roxicodone Immediate Rel) 5 mg PO TID KAYLYNN Stop: 04/07/19 08:59 Last Admin: 03/28/19 08:29 Dose: 5 mg Documented by: Pantoprazole Sodium (Protonix) 40 mg PO BID [facility] Stop: 04/22/19 22:56 Last Admin: 03/28/19 08:00 Dose: 40 mg Documented by: Quetiapine Fumarate (Seroquel) 25 mg PO HS [facility] Stop: 04/23/19 20:59 Last Admin: 03/27/19 20:51 Dose: 25 mg Documented by: Tamsulosin HCl (Flomax) 0.4 mg PO HS KAYLYNN Stop: 04/23/19 20:59 Last Admin: 03/27/19 20:50 Dose: 0.4 mg Documented by: Tramadol HCl (Ultram) 50 mg PO Q4H PRN PRN Reason: pain Stop: 04/22/19 22:56 Last Admin: 03/27/19 17:06 Dose: 50 mg Documented by: Vitamin D (Vitamin D3) 2,000 units PO DAILY [facility]NN Stop: 04/23/19 08:59 Last Admin: 03/28/19 08:00 Dose: 2,000 units Documented by: PG Care Time/CCT Total # of Minutes Spent Total Time Spent with Patient: Total time spent is greater than 50% in coordination of care (as documented) at patient's floor/unit and/or counseling patient: (1) Coronary artery disease Associated angina: without angina Coronary Disease-Associated Artery/Lesion type: [place] artery [place] vs. transplanted heart: [place] heart Qualified Code(s): I25.10 - Atherosclerotic heart disease of [place] coronary artery without angina pectoris (2) Osteomyelitis of foot Laterality: left Osteomyelitis type: unspecified type Qualified Code(s): M86.9 - Osteomyelitis, unspecified (3) Chest pain Chest pain type: unspecified Qualified Code(s): R07.9 - Chest pain, unspecified
[2019-03-27] MEDS: ATORVASTATIN 40 MG TAB PO SCH (20:50)
[2019-03-27] MEDS: TAMSULOSIN HCL 0.4 MG CAP PO SCH (20:50)
[2019-03-27] MEDS: QUETIAPINE FUMARATE 25 MG TABLET PO SCH (20:51)
[2019-03-28] MEDS: LEVOTHYROXINE SODIUM 25 MCG TABLET PO SCH (05:49)
[2019-03-28] MEDS: METOPROLOL SUCC 50MG EXT REL TAB PO SCH (08:00)
[2019-03-28] MEDS: PANTOprazole 40 MG TAB PO SCH ×2 (08:00→20:47)
[2019-03-28] MEDS: CEFDINIR 300 MG CAP PO SCH ×2 (08:00→20:44)
[2019-03-28] MEDS: FINASTERIDE 5 MG TAB PO SCH (08:00)
[2019-03-28] MEDS: ASPIRIN 81 MG ECTAB PO SCH (08:00)
[2019-03-28] MEDS: CEROVITE ADV FORMULA TAB PO SCH (08:00)
[2019-03-28] MEDS: CHOLECALCIFEROL 1,000 UNITS TAB PO SCH (08:00)
[2019-03-28] MEDS: CLOPIDOGREL BISULFATE 75 MG TAB PO SCH (08:00)
[2019-03-28] MEDS: GABAPENTIN 100 MG CAP PO SCH ×2 (08:01→20:46)
[2019-03-28] MEDS: FERROUS SULFATE 325 MG TAB PO SCH ×2 (08:01→17:15)
[2019-03-28] MEDS: ASCORBIC ACID 500 MG TAB PO SCH (08:01)
[2019-03-28] MEDS: LOSARTAN POTASSIUM 25 MG TAB PO SCH (08:01)
[2019-03-28] MEDS: NYSTATIN OINT 15 GM TUBE EXT SCH (08:01)
[2019-03-28] MEDS: OXYCODONE HCL IR 5 MG TAB (IMMEDIATE RELEASE) PO SCH ×3 (08:29→20:43)
[2019-03-28] MEDS: INSULIN ASPART 100 UNITS/ML 3 ML PEN SC SCH ×4 (08:46→20:44)
[2019-03-28] MEDS: ONDANSETRON INJ 2 MG/ML 2 ML VIAL IV PRN (14:13)
--- NOTE | 2019-03-28 14:46 | Hospitalist Progress Note ---
Date of Service March 28, 2019 Assessment & Plan (1) Chronic systolic heart failure: acute on chronic systolic heart failure, seems to be due to fluid intake, he was unaware of fluid restriction, needs education likely difficult to weigh him at home will need follow up with heart failure clinic negative > 4000mL for admission less diuresis the past 48 hours despite increasing Lasix CO2 and BUN trended upward, likely intravascularly constricted resume Lasix 40mg PO daily today continue on Toprol, Losartan referral to CHF clinic, Serenity Illrodrick will follow, will likely be phone calls since he does not leave house easily plan for d/c home tomorrow (2) Ischemic cardiomyopathy: continue on Losartan and Toprol for prison management continue Lasix for volume control (3) Osteomyelitis of foot: Continue the antibiotics per home medication list which was recommended by ID Cefdinir 300mg BID of note, he completed a full course of IV antibiotics at [facility] ortho assessed the wound, he needs to be referred to plastics at [place] as outpatient (4) Chest pain: no active chest pain, troponin was only 0.017 on admission no evidence of active ischemic disease (5) Pressure ulcer of left heel, stage 4: Wound care consult Continue with antibiotics for osteomyelitis. (6) PAD (peripheral artery disease): continue antiplatelets (7) Anemia in chronic illness: Hb is stable, no need for daily labs (8) Obese: encourage weight loss through diet control (9) Coronary artery disease: no chest pain continue antiplatelets, statin therapy (10) Cardiac defibrillator in place: (11) Obstructive sleep apnea: (12) Uncontrolled type 2 diabetes mellitus with neurologic complication, with long-term current use of insulin: discussed with , he is unsure what they were using at [facility] will place on Novolog SS for now (13) BPH (benign prostatic hyperplasia): Flomax urinating well without luna (14) Thyroid disorder: (15) Anxiety: (16) HTN (hypertension): Subjective patient doing well, no acute events breathing is stable no labs today eating well d/w ortho, patient can get Plastics referral at [place] outpatient told patient that we will plan for d/c to home tomorrow Review of Systems Review of Systems: All systems reviewed & are unremarkable except as noted in HPI & below Constitutional: + weakness; no fever, no chills, no sweats and no fatigue Respiratory: + dyspnea on exertion; no cough and no dyspnea Cardiovascular: + edema; no chest pain Gastrointestinal: no abdominal pain, no nausea, no vomiting, no constipation and no diarrhea/loose stools Physical Exam Constitutional: WD/WN, vitals as above + overweight Eyes: PERRL, conjunctivae normal, anicteric sclerae ENMT: external ear and nose normal, oropharynx normal Neck: trachea midline, no thyromegaly Respiratory: normal respiratory effort; no respiratory distress Auscultation: + diminished lung sounds (bases) Cardiovascular: Rate/Rhythm: regular rate and regular rhythm Heart Sounds: normal S1 and normal S2; no murmur Vessels: no JVD Extremities: + edema (trace in legs bilaterally) Gastrointestinal (Abdomen): normal bowel sounds, soft, nontender, no hepatosplenomegaly Musculoskeletal: Head/Neck/Chest: normocephalic and head atraumatic Extremities: extremities normal to inspection, + limited ROM of extremities (due to weakness) and + abnormal strength (cannot transition out of bed) Skin: no rashes, warm and dry Neurologic: patellar DTR's 2+ bilat, sensation intact and PERRL, EOMI, accommodation nl, no face palsy, no dysarthria Psychiatric: A+Ox3, euthymic affect Lymphatic: no cervical or axillary lymphadenopathy Results & Data Vital Signs (Past 12 Hours) Vital Signs Temp Pulse Pulse Resp BP Pulse Ox 03/28/19 11:42 36.4 C L 61 16 111/68 96 03/28/19 07:45 36.5 C 62 16 114/71 93 03/28/19 07:28 61 03/28/19 03:42 36.4 C L 59 L 18 122/73 97 03/28/19 03:31 60 Medications Administered Current Inpatient Medications Hydrocodone Bitart/Acetaminophen ([place] 5/325) 1 tab PO Q4H PRN PRN Reason: Pain Stop: 04/06/19 22:56 Last Admin: 03/25/19 01:30 Dose: 1 tab Documented by: Ascorbic Acid (Vitamin C) 500 mg PO DAILY [facility] Stop: 04/23/19 08:59 Last Admin: 03/28/19 08:01 Dose: 500 mg Documented by: Aspirin (Ecotrin Ectab) 81 mg PO DAILY [facility] Stop: 04/23/19 08:59 Last Admin: 03/28/19 08:00 Dose: 81 mg Documented by: Atorvastatin Calcium (Lipitor) 40 mg PO QPM KAYLYNN Stop: 04/23/19 20:59 Last Admin: 03/27/19 20:50 Dose: 40 mg Documented by: Cefdinir (Omnicef Cap) 300 mg PO BID KAYLYNN Stop: 04/04/19 12:29 Last Admin: 03/28/19 08:00 Dose: 300 mg Documented by: Clopidogrel Bisulfate (Plavix) 75 mg PO DAILY KAYLYNN Stop: 04/23/19 08:59 Last Admin: 03/28/19 08:00 Dose: 75 mg Documented by: Dextrose (Dextrose 50%) 25 - 50 ml IV UD PRN; Protocol PRN Reason: Hypoglycemia Protocol Stop: 04/23/19 13:44 Ferrous Sulfate (Feosol) 325 mg PO BIDM [facility] Stop: 04/23/19 07:59 Last Admin: 03/28/19 08:01 Dose: 325 mg Documented by: Finasteride (Proscar) 5 mg PO DAILY KAYLYNN Stop: 04/23/19 08:59 Last Admin: 03/28/19 08:00 Dose: 5 mg Documented by: Furosemide (Lasix) 40 mg PO QAM KAYLYNN Stop: 04/27/19 14:59 Gabapentin (Neurontin) 100 mg PO BID [facility] Stop: 04/22/19 22:56 Last Admin: 03/28/19 08:01 Dose: 100 mg Documented by: Glucagon (Glucagen) 1 mg IM UD PRN; Protocol PRN Reason: Hypoglycemia Protocol Stop: 04/23/19 13:44 Glucose (Glucose 40%) 15 - 30 gm PO UD PRN; Protocol PRN Reason: Hypoglycemia Protocol Stop: 04/23/19 13:44 Glucose (Dex4 Glucose) 4 - 8 tabs PO UD PRN; Protocol PRN Reason: Hypoglycemia Protocol Stop: 04/23/19 13:44 Insulin Aspart (Novolog Flexpen) 0 units SC ACHS [facility] Stop: 04/23/19 16:29 Last Admin: 03/28/19 12:49 Dose: 7 units Documented by: Levothyroxine Sodium (Synthroid) 25 mcg PO DAILYBB KAYLYNN Stop: 04/23/19 06:29 Last Admin: 03/28/19 05:49 Dose: 25 mcg Documented by: Losartan Potassium (Cozaar) 25 mg PO QAM [facility] Stop: 04/23/19 08:59 Last Admin: 03/28/19 08:01 Dose: 25 mg Documented by: Metoprolol Succinate (Toprol Xl) 50 mg PO DAILY [facility] Stop: 04/23/19 08:59 Last Admin: 03/28/19 08:00 Dose: 50 mg Documented by: Miscellaneous (Carbohydrates For Hypoglycemia) 15 - 30 gm PO UD PRN PRN Reason: Hypoglycemia Treatment Stop: 04/23/19 13:44 Multivitamins/Minerals (Multivitamin W/ Minerals Tab) 1 tab PO DAILY KAYLYNN Stop: 04/23/19 08:59 Last Admin: 03/28/19 08:00 Dose: 1 tab Documented by: Nystatin (Mycostatin) 1 appln EXT PRN PRN PRN Reason: Affected Skin Folds Stop: 04/22/19 16:24 Last Admin: 03/23/19 16:34 Dose: 1 appln Documented by: Nystatin (Mycostatin) 1 appln EXT DAILY KAYLYNN Stop: 04/23/19 08:59 Last Admin: 03/28/19 08:01 Dose: 1 appln Documented by: Ondansetron HCl (Zofran) 4 mg IV Q4H PRN PRN Reason: Nausea Stop: 04/23/19 13:24 Last Admin: 03/28/19 14:13 Dose: 4 mg Documented by: Oxycodone HCl (Roxicodone Immediate Rel) 5 mg PO TID [facility] Stop: 04/07/19 08:59 Last Admin: 03/28/19 14:12 Dose: 5 mg Documented by: Pantoprazole Sodium (Protonix) 40 mg PO BID [facility] Stop: 04/22/19 22:56 Last Admin: 03/28/19 08:00 Dose: 40 mg Documented by: Quetiapine Fumarate (Seroquel) 25 mg PO HS [facility] Stop: 04/23/19 20:59 Last Admin: 03/27/19 20:51 Dose: 25 mg Documented by: Tamsulosin HCl (Flomax) 0.4 mg PO HS [facility] Stop: 04/23/19 20:59 Last Admin: 03/27/19 20:50 Dose: 0.4 mg Documented by: Tramadol HCl (Ultram) 50 mg PO Q4H PRN PRN Reason: pain Stop: 04/22/19 22:56 Last Admin: 03/27/19 17:06 Dose: 50 mg Documented by: Vitamin D (Vitamin D3) 2,000 units PO DAILY KAYLYNN Stop: 04/23/19 08:59 Last Admin: 03/28/19 08:00 Dose: 2,000 units Documented by: PG Care Time/CCT Total # of Minutes Spent Total Time Spent with Patient: Total time spent is greater than 50% in coordination of care (as documented) at patient's floor/unit and/or counseling patient: (1) Osteomyelitis of foot Laterality: left Osteomyelitis type: unspecified type Qualified Code(s): M86.9 - Osteomyelitis, unspecified (2) Chest pain Chest pain type: unspecified Qualified Code(s): R07.9 - Chest pain, unspecifi ed (3) Coronary artery disease Coronary Disease-Associated Artery/Lesion type: [place] artery [place] vs. transplanted heart: [place] heart Associated angina: without angina Qualified Code(s): I25.10 - Atherosclerotic heart disease of [place] coronary artery without angina pectoris
[2019-03-28] MEDS: FUROSEMIDE 40 MG TAB PO SCH (16:29)
[2019-03-28] MEDS: ATORVASTATIN 40 MG TAB PO SCH (20:46)
[2019-03-28] MEDS: TAMSULOSIN HCL 0.4 MG CAP PO SCH (20:46)
[2019-03-28] MEDS: QUETIAPINE FUMARATE 25 MG TABLET PO SCH (20:47)
[2019-03-29] MEDS: LEVOTHYROXINE SODIUM 25 MCG TABLET PO SCH (05:54)
[2019-03-29 06:27] LABS: BUN Creatinine Ratio 23.4 (10-20); Calcium 8.5 mg/dl (8.5-10.1); Creatinine Clr Calc Pharmacy 65.1 ml/min; Est GFR (African American) 68.4; Potassium 4.2 mmol/L (3.5-5.1)
[2019-03-29] MEDS: METOPROLOL SUCC 50MG EXT REL TAB PO SCH (08:41)
[2019-03-29] MEDS: PANTOprazole 40 MG TAB PO SCH (08:41)
[2019-03-29] MEDS: CEROVITE ADV FORMULA TAB PO SCH (08:41)
[2019-03-29] MEDS: FINASTERIDE 5 MG TAB PO SCH (08:42)
[2019-03-29] MEDS: CHOLECALCIFEROL 1,000 UNITS TAB PO SCH (08:42)
[2019-03-29] MEDS: GABAPENTIN 100 MG CAP PO SCH (08:42)
[2019-03-29] MEDS: CLOPIDOGREL BISULFATE 75 MG TAB PO SCH (08:42)
[2019-03-29] MEDS: ASCORBIC ACID 500 MG TAB PO SCH (08:42)
[2019-03-29] MEDS: FERROUS SULFATE 325 MG TAB PO SCH (08:43)
[2019-03-29] MEDS: LOSARTAN POTASSIUM 25 MG TAB PO SCH (08:43)
[2019-03-29] MEDS: CEFDINIR 300 MG CAP PO SCH (08:43)
[2019-03-29] MEDS: ASPIRIN 81 MG ECTAB PO SCH (08:43)
[2019-03-29] MEDS: NYSTATIN OINT 15 GM TUBE EXT SCH (08:44)
[2019-03-29] MEDS: FUROSEMIDE 40 MG TAB PO SCH (08:44)
[2019-03-29] MEDS: INSULIN ASPART 100 UNITS/ML 3 ML PEN SC SCH ×2 (08:46→12:39)
[2019-03-29] MEDS: OXYCODONE HCL IR 5 MG TAB (IMMEDIATE RELEASE) PO SCH ×2 (08:48→13:59)
--- NOTE | 2019-03-29 13:00 | Discharge Summary ---
Date of Service March 29, 2019 Admission HPI Per Admitting Provider The patient is a 68-year-old male who presented to ER with complaints of increasing shortness of breath since yesterday. He has also noted increasing swelling of the legs since yesterday. Today he s having intermittent episodes of chest pain. The further work-up done in the emergency room shows that patient has acute on chronic congestive heart failure. He will be admitted for further evaluation and management. Principal Diagnosis Acute on chronic systolic heart failure Discharge Exam Constitutional WD/WN, vitals as above + overweight Eyes PERRL, conjunctivae normal, anicteric sclerae ENMT external ear and nose normal, oropharynx normal Neck trachea midline, no thyromegaly Respiratory normal respiratory effort; no respiratory distress Auscultation: + diminished lung sounds (bases) Cardiovascular Rate/Rhythm: regular rate and regular rhythm Heart Sounds: normal S1 and normal S2; no murmur Vessels: no JVD Extremities: + edema (trace in legs bilaterally) Gastrointestinal (Abdomen) normal bowel sounds, soft, nontender, no hepatosplenomegaly Musculoskeletal Head/Neck/Chest: normocephalic and head atraumatic Extremities: extremities normal to inspection, + limited ROM of extremities (due to weakness) and + abnormal strength (cannot transition out of bed) Skin no rashes, warm and dry Neurologic patellar DTR's 2+ bilat, sensation intact and PERRL, EOMI, accommodation nl, no face palsy, no dysarthria Psychiatric A+Ox3, euthymic affect Lymphatic no cervical or axillary lymphadenopathy Discharge Data Allergies Allergy/AdvReac Type Severity Reaction Status Date / Time lorazepam [From Ativan] Allergy Confusion Verified 03/16/19 09:38 Consultations 03/23/19 17:02 ED Decision to Admit Stat 03/24/19 10:50 Consult Orthopedic Surgery Routine Hospital Course (1) Chronic systolic heart failure: acute on chronic systolic heart failure, seems to be due to fluid intake, he was unaware of fluid restriction likely difficult to weigh him at home will need follow up with heart failure clinic 04/06 with Serenity HENDRIX negative > 5500mL for admission weight down 12 lbs continue Lasix 40mg PO daily today if he develops edema or shortness of breath he and family know to take extra Lasix, call heart failure clinic continue on Toprol, Losartan (2) Ischemic cardiomyopathy: continue on Losartan and Toprol for senior care management continue Lasix for volume control (3) Osteomyelitis of foot: Continue the antibiotics per home medication list which was recommended by ID Cefdinir 300mg BID, Bactrim of note, he completed a full course of IV antibiotics at [facility] ortho assessed the wound, he needs to be referred to plastics at [place] as outpatient discussed with patient's , she will call [place] for appt tomorrow (4) Chest pain: no active chest pain, troponin was only 0.017 on admission no evidence of active ischemic disease (5) Pressure ulcer of left heel, stage 4: Wound care consult Continue with antibiotics for osteomyelitis. (6) PAD (peripheral artery disease): continue antiplatelets (7) Anemia in chronic illness: Hb is stable, no need for daily labs (8) Obese: encourage weight loss through diet control (9) Coronary artery disease: no chest pain continue antiplatelets, statin therapy (10) Cardiac defibrillator in place: (11) Obstructive sleep apnea: (12) Uncontrolled type 2 diabetes mellitus with neurologic complication, with long-term current use of insulin: discussed with , he is unsure what they were using at [facility] will place on Novolog SS for now (13) BPH (benign prostatic hyperplasia): Flomax urinating well without luna (14) Thyroid disorder: (15) Anxiety: (16) HTN (hypertension): Total Time Total Time Spent Total Time Spent (In Minutes): 35 minutes Total Time Includes: Examination of the Patient, Discharge Planning, Medication Reconciliation, Communication With Other Providers (orthopedics) and Other (discussed plan with his ) Discharge Plan Discharge Items Patient Disposition: Home - Home Health Services Reason For Visit: CHF Discharge Diagnosis: Acute on chronic systolic heart failure, resolved Osteomyelitis of the heel Condition on Discharge: Good Goals: improved control of heart failure follow fluid restriction of less than 2 liters a day, see below follow up with Plastic Surgery in [place] for their opinion on skin graft for heel Activity: Resume your previous activity Non-emergency contact: Primary Care Provider, Surgeon and Apricot Packer Call non-emergency contact if: you have any medication questions, your symptoms worsen, your pain is not controlled, your pain is concerning for you and you have a fever Follow-up/Referrals: Christiano Alvarez MD [Primary Care Provider] - Serenity Lopez PA-C [Physician Egg Caser] - 04/06/19 2:00 pm (Congestive Heart Failure Program Appointment Information Early follow up is essential to managing your heart failure. An appointment has been scheduled for you with the [facility] Heart Failure Program within 7 days of discharge. Anticipate this visit to be 30-60 minutes long. Please expect a personal care home administrator phone call from one of our nurses approximately 48 hours from discharge. They will also be placing an order for lab work to be completed 1-2 days prior to your heart failure follow up appointment. Please be sure to have this done so we can go over the results when you come in. Office Location The cardiology office building is located in front of the hospital at [address] Bring the following with you to your follow-up doctor appointments: Please bring your daily weight log any discharge paperwork all of your medication bottles with you to this visit. ) Diet: Heart Healthy Fluids: 2000ml (8 cups) Addtl Attending Provider Instructions: Medications: no changes have been made, see below for Lasix instructions Acute on chronic heart failure resolved with increased dose of Lasix for a few days, we removed 5.6 liters of fluids, lost 12 lbs of water weight you have been back on home dose of Lasix 40mg daily for two days, you have remained stable typically the husain in managing heart failure at home is to weigh yourself daily, unfortunately that is impossible at home if you cannot stand for you, the heart failure will be managed by observing for any increase in edema (swelling) or shortness of breath you NEED to follow a fluid restriction of less than 2000mL (8 cups) a day this is all fluids that you would drink, water, soda, coffee, juice etc your personal lines appraiser will be Serenity HENDRIX with the heart failure clinic, if you experience increased swelling or shortness of breath, I would recommend taking an extra Lasix (80mg total for the day) and call the heart failure clinic you also need to follow a low salt diet, less than 2gm a day of sodium, read food labels to see how much salt they contain Osteomyelitis of the heel continue on Cefdinir and Bactrim as prescribed Dr. uGillermo recommends a referral to Plastic surgery in [place] for consideration for skin graft over the area in regards to the possibility of amputation, Dr. Guillermo has stated that if everything fails (debridement, antibiotics, wound care and skin graft) then amputation would be the only option left, certainly this would be last resort and we will continue treatment at this time Pending Studies at Discharge: No Stand-Alone Forms: Call Back Authorization, My [facility] Medications and DC Order Prescriptions: Continued furosemide 40 mg tablet 40 mg PO QAM Qty: 30 RF: 11 tamsulosin [Flomax] 0.4 mg Capsule 0.4 mg PO HS RF: 0 lidocaine 5 % adhesive patch,medicated 2 patch transdermal DIRECTED RF: 0 pantoprazole 40 mg Tablet,Delayed Release (Dr/Ec) 40 mg PO BID Qty: 60 RF: 0 losartan 25 mg Tablet 25 mg PO QAM Qty: 30 RF: 0 ferrous sulfate 325 mg (65 mg iron) Tablet,Delayed Release (Dr/Ec) 325 mg PO BIDM Qty: 60 RF: 0 tramadol 50 mg Tablet 50 mg PO Q4H PRN (Reason: pain) Qty: 12 RF: 0 atorvastatin 40 mg tablet 40 mg PO QPM RF: 0 cefdinir 300 mg Capsule 300 mg PO BID RF: 0 hydrocodone-acetaminophen 5-325 mg Tablet 1 tab PO Q4H PRN (Reason: Pain) RF: 0 levothyroxine 25 mcg Tablet 25 mcg PO DAILY RF: 0 melatonin 5 mg Tablet 5 mg PO HS RF: 0 nystatin 100,000 unit/gram ointment 1 applic EXT DAILY RF: 0 Therems-M 27-0.4 mg Tablet 1 tab PO DAILY RF: 0 ascorbic acid (vitamin C) 500 mg Tablet 500 mg PO DAILY RF: 0 oxycodone 5 mg Tablet 5 mg PO TID RF: 0 sulfamethoxazole-trimethoprim [Bactrim DS] 800-160 mg Tablet 1 tab PO BID RF: 0 metoprolol succinate [Toprol XL] 50 mg Tablet Extended Release 24 Hr 50 mg PO DAILY RF: 0 clopidogrel [Plavix] 75 mg Tablet 75 mg PO DAILY RF: 0 aspirin [Aspir-81] 81 mg Tablet,Delayed Release (Dr/Ec) 81 mg PO DAILY RF: 0 finasteride 5 mg Tablet 5 mg PO DAILY RF: 0 cholecalciferol (vitamin D3) [Vitamin D3] 1,000 unit Tablet 2,000 unit PO DAILY RF: 0 gabapentin 100 mg Capsule 100 mg PO BID Qty: 2 RF: 0 quetiapine 25 mg Tablet 25 mg PO HS 30 Days Qty: 30 RF: 1 Discharge Orders: Discharge Order (Routine); Ordered 03/29/19 Ordered By: Tai Burr Admission Data Admit Date/Time: 03/23/19 22:02 Attending Provider: Tai Burr Admit Provider: Sumanth Kenny Primary Care Provider: Christiano Alvarez Other Providers: Hermes Morillo ; Chuckie Guillermo ; Hospice,Family
== END 2019-03-29 14:18 | disposition home health service (06) | DRG 291 ==
LOC: ED 14:50 → SUATTDRO 22:02 → 2S 22:02 → 2N 03-24 20:57

== ENCOUNTER 2019-04-14 15:30 | Inpatient (IN) ==
[2019-04-14] MEDS ORDERED: DEXTROSE 50% 50 ML SYRINGE IV PRN (17:21)
[2019-04-14] MEDS ORDERED: ACETAMINOPHEN 325 MG TAB PO PRN (17:21)
[2019-04-14] MEDS ORDERED: GLUCOSE 40% GEL 15 GM TUBE PO PRN (17:21)
[2019-04-14] MEDS ORDERED: GLUCAGON FOR INJ 1 MG VIAL SQ PRN (17:21)
[2019-04-14] MEDS ORDERED: GLUCOSE 10 TABS/TUBE PO PRN (17:21)
[2019-04-14] MEDS ORDERED: PIPERACILL/TAZOBAC CONSULT ACTIVE PRN (17:27)
[2019-04-14] MEDS ORDERED: DAPTOmycin 500 MG VIAL IV SCH (17:30)
[2019-04-14] MEDS ORDERED: ENOXAPARIN INJ 40 MG/0.4 ML SYR SQ ONE (18:00)
[2019-04-14] MEDS: CARBOHYDRATES FOR HYPOGLYCEMIA PO PRN ×2 (18:26→18:48)
[2019-04-14 18:31] LABS: Basophils # (auto) 0.04 K/uL (0-0.2); Basophils % (auto) 0.7 %; Eosinophils % (auto) 3.4 %; Hemoglobin 9.3 g/dL (14.0-18.0); Immature Granulocytes # (auto) 0.01 K/uL (0.00-0.02); Immature Granulocytes % (auto) 0.2 %; Lymphocytes # (auto) 0.94 K/uL (1.2-3.4); Lymphocytes % (auto) 16.2 %; Mean Corpuscular Hemoglobin 29.4 pg (25-34); Mean Corpuscular Hgb Conc 32.1 g/dL (32-36); Mean Corpuscular Volume 91.8 fL (80-100); Mean Platelet Volume 9.6 fL (7.4-10.4); Monocytes # (auto) 0.54 K/uL (0.11-0.59); Monocytes % (auto) 9.3 %; Neutrophils # (auto) 4.07 K/uL (1.4-6.5); Neutrophils % (auto) 70.2 %; Platelet Count 166 K/uL (130-400); RDW Coefficient of Variation 15.4 % (11.5-14.5); Red Blood Count 3.16 M/uL (4.7-6.1)
[2019-04-14 18:42] LABS: INR 1.1 (0.9-1.1); Prothrombin Time 11.2 Seconds (9.0-12.0)
[2019-04-14 18:47] LABS: Alanine Aminotransferase 32 U/L (12-78); Albumin Level 3.7 gm/dl (3.4-5.0); Aspartate Aminotransferase 26 U/L (15-37); BUN Creatinine Ratio 21.6 (10-20); Bilirubin Direct 0.2 mg/dl (0-0.2); Blood Urea Nitrogen 44 mg/dl (7-18); Calcium 9.7 mg/dl (8.5-10.1); Carbon Dioxide 24 mmol/L (21-32); Chloride 98 mmol/L (98-107); Est GFR (African American) 38.4; Est GFR (Non-African American) 33.2; Glucose 55 mg/dl (70-99); Magnesium 2.1 mg/dl (1.8-2.4); Potassium 4.7 mmol/L (3.5-5.1); Sodium 129 mmol/L (136-145)
[2019-04-14 18:55] LABS: Alkaline Phosphatase 78 U/L (45-117); Bilirubin,Total 0.5 mg/dl (0.2-1); C Reactive Protein 0.46 mg/dl (0-0.29); Phosphorus 4.4 mg/dl (2.5-4.9); Total Protein 7.4 gm/dl (6.4-8.2)
[2019-04-14] MEDS ORDERED: PIPERACILLIN/TAZOBACTAM 3.375 GM in DEXTROSE 5% 100 ML IV ONE (20:00)
[2019-04-14] MEDS: PATIENT'S HEIGHT AND/OR WEIGHT NEEDED SCH (20:48)
[2019-04-14] MEDS ORDERED: NON-FORMULARY MEDICATION (Melatonin 5 MG) PO SCH (21:00)
[2019-04-14] MEDS: DAPTOmycin 400 MG in SYRINGE 0 ML IV SCH (21:32)
[2019-04-14] MEDS: TAMSULOSIN HCL 0.4 MG CAP PO SCH (21:33)
[2019-04-14] MEDS: ENOXAPARIN INJ 40 MG/0.4 ML SYR SQ SCH (21:33)
[2019-04-14] MEDS: GABAPENTIN 100 MG CAP PO SCH (21:34)
[2019-04-14] MEDS: PANTOprazole 40 MG TAB PO SCH (21:35)
[2019-04-14] MEDS: INSULIN ASPART 100 UNITS/ML 3 ML PEN SC SCH (21:52)
--- NOTE | 2019-04-14 22:36 | XRay Report ---
LEFT FOOT 2 VIEWS CLINICAL HISTORY: Heel infection. FINDINGS: AP and lateral views of the left foot are correlated with CT of the foot dated 02/02/2019 an d left ankle radiograph dated 04/12/2019. The skeletal structures are osteopenic. No acute fracture is seen. Arthritic change is seen throughout the foot. Degenerative spurring is seen along the dorsal a spect of the tarsal bones. Marked soft tissue edema is present throughout the visualized left lower e xtremity. Skin clips and antibiotic beads project over the calcaneus obscuring visualization. No defi nite bony erosion is identified. Atherosclerotic calcification is observed in the regional arteries. IMPRESSION: 1. Diffuse soft tissue edema with no acute bony abnormality clearly identified. 2. Skin clips and antibiotic beads project over the heel. Electronically signed by: Vinicius Almaraz M.D. 04/14/2019 10:34 PM
--- NOTE | 2019-04-14 22:53 | History & Physical Report ---
Date of Service April 14, 2019 Assessment & Plan (1) Confusion: Patient presenting from outpatient clinic with persistent confusion, hallucinations. Concern for infectious etiology. Presently he is afebrile, hemodynamically stable. No leukocytosis. Labs with stable normochromic normocy tic anemia, sodium of 129, mildly elevated BUN of 44 and creatinine 2.03 which is near baseline. Episodic hypoglycemia present glucose = 55. Elevated TSH at 6.56 -Admit to medical floor. Check CT head for history of confusion and hallucinations -Avoid sedating and anticholinergic medications -Delirium prevention strategies with frequent orientation, ambulation with assistance as tolerated -Glucose checks -Aspiration precautions and fall precautions Present on Admission?: Yes (2) Osteomyelitis of foot: Patient with chronic osteomyelitis of the foot. Recently with worsening pain and increased foul-smelling discharge. ESR is relatively unremarkable. CRP mildly elevated at 0.46. X-ray obtained of the left foot, final read pending. Seems to have evidence of chronic osteomyelitis -Daptomycin -Vancomycin -ID consultation appreciated -History of MRSA. Will maintain contact precautions Present on Admission?: Yes (3) Back pain: Patient with worsening low back pain of late. Has history of spinal infection/infected hardware requiring extraction and long-term antibiotic treatment. -CT L-spine obtained, awaiting final read -Daptomycin and Zosyn as above -ID consultation -Orthopedic surgery consultation appreciated. Patient is known to Dr. Guillermo Present on Admission?: Yes (4) History of chronic CHF: History of ischemic cardiomyopathy with reduced EF to 25 to 30% with an akinetic inferior wall and global hypokinesis. Patient appears to be slightly volume down on current exam. No respiratory distress -Continue home medications aspirin, atorvastatin, metoprolol, losartan -We will hold Lasix for now in setting of moderate hyponatremia -Cautious IV fluids Present on Admission?: Yes (5) PAD (peripheral artery disease): Chronic. -Continue aspirin, Plavix, atorvastatin Present on Admission?: Yes (6) Anemia in chronic illness: H&H stable. No active bleed. Continue to monitor Present on Admission?: Yes (7) BPH (benign prostatic hyperplasia): Patient with history of BPH. Continue Flomax and Proscar Monitor urine output Present on Admission?: Yes (8) Vitamin D deficiency: Chronic. Holding vitamin D supplements while inpatient. May continue Present on Admission?: Yes (9) Uncontrolled type 2 diabetes mellitus with neurologic complication, with long-term current use of insulin: Patient with diabetes. No medications listed. He has had low blood sugars while here.? Secondary to infection versus medication effects -Blood sugar checks -We will provide gentle maintenance fluids with dextrose -Continue Neurontin for neuropathy Present on Admission?: Yes (10) Thyroid disorder: Chronic. Elevated TSH today -Continue Synthroid Present on Admission?: Yes (11) Stage III chronic kidney disease: BUN and creatinine are near baseline. Patient is making urine. Avoid nephrotoxic agents. Renal dosing were needed. Monitor urine output, BUN and creatinine and electrolytes Present on Admission?: Yes (12) Coronary artery disease: Stable. Patient denies chest pain. Continue aspirin, Plavix, atorvastatin, metoprolol, losartan Present on Admission?: Yes (13) HTN (hypertension): Blood pressure well controlled. -Continue home medications -Continue monitor Present on Admission?: Yes (14) High cholesterol: Chronic. Stable. Continue atorvastatin FEND5 normal at 80 mL/h x 2 L ProphylaxisLovenox, continue Protonix 40 mg p.o. twice daily Codefull Dispositionadmit to bed [id number] Present on Admission?: Yes History of Present Illness Chief Complaint: Foot pain Primary Care Provider: [facility] Mr. Cooper is a 68-year-old male with multiple medical problems to include diabetes with retinopathy and neuropathy, hypertension, CAD, CKD. 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 He was treated with IV antibiotics as well as Omnicef and Bactrim. He has had multiple visits to the ER of late for CHF, also with intermittent hallucinations, weakness as well as worsening left foot pain and drainage and worsening back pain. Patient was seen by Dr. Ndiaye today in clinic for the above complaints and was subsequently sent to [facility] for direct admission, concern for infection as underlying cause of hallucinations and mental status change. Specifically worsening osteomyelitis, possible back infection. Patient with long-standing history of lumbar spinal stenosis which was treated with decompression and fusion. Subsequent development of Serratia infection on 08/11/2018 which was treated with IV ertapenem. He was taken to the OR on 09/10/2018 for exploration was found to have a paraspinal abscess. Fluid at that time positive for coagulase-negative staph. His hardware was removed and he was treated with IV daptomycin to vancomycin. He was then discharged to [facility]. Patient does not ambulate at present. My exam patient is afebrile, hemodynamically stable, somnolent but arousable. Answers some questions but is unable to provide much history. He does not know his medications or when he takes them. He does complain of pain in the foot with inability to bear weight as well as pain in the low back he denies fever/chills/nausea/vomiting/sweats/malaise. Denies chest pain/palpitations/shortness of breath/abdominal pain. No additional complaints at this time Allergies Allergy/AdvReac Type Severity Reaction Status Date / Time lorazepam [From Ativan] AdvReac Confusion Verified 04/14/19 20:18 Home Medications Home Medications Medication Instructions Recorded Confirmed Type aspirin [Aspir-81] 81 mg PO QAM 12/01/18 04/14/19 History cholecalciferol (vitamin D3) 2,000 unit PO DAILY 12/01/18 04/14/19 History [Vitamin D3] finasteride [Proscar] 5 mg PO QAM 12/01/18 04/14/19 History metoprolol succinate [Toprol XL] 50 mg PO DAILY 12/01/18 04/14/19 History lidocaine 2 patch TRANSDERMAL DIRECTED 01/14/19 04/14/19 History Therems-M 1 tab PO DAILY 03/23/19 04/14/19 History ascorbic acid (vitamin C) [Vitamin 500 mg PO QAM 03/23/19 04/14/19 History C] atorvastatin 40 mg PO QPM 03/23/19 04/14/19 History hydrocodone-acetaminophen [[place]] 1 tab PO Q4H PRN 03/23/19 04/14/19 History melatonin 5 mg PO HS 03/23/19 04/14/19 History nystatin 1 applic EXT DAILY 03/23/19 04/14/19 History oxycodone 5 mg PO TID 03/23/19 04/14/19 History ferrous sulfate 325 mg (65 mg 325 mg PO BIDM #90 tab 03/30/19 04/14/19 Rx iron) tablet,delayed release tamsulosin 0.4 mg capsule 0.4 mg PO HS #90 cap 03/30/19 04/14/19 Rx cefdinir 300 mg capsule 300 mg PO BID 14 Days #28 cap 04/01/19 04/14/19 Rx sulfamethoxazole 800 1 tab PO BID 14 Days #28 tab 04/01/19 04/14/19 Rx mg-trimethoprim 160 mg tablet gabapentin [Neurontin] 100 mg PO BID 04/10/19 04/14/19 History levothyroxine [Synthroid] 25 mcg PO QAM 04/10/19 04/14/19 History losartan [Cozaar] 25 mg PO QAM 04/10/19 04/14/19 History pantoprazole [Protonix] 40 mg PO BID 04/10/19 04/14/19 History tramadol [Ultram] 50 mg PO Q4H PRN 04/10/19 04/14/19 History clopidogrel [Plavix] 75 mg PO QAM 04/12/19 04/14/19 History furosemide 20 mg PO QAM 04/12/19 04/14/19 History Past Med/Surg History Social History Preferred Language: Armenian Communication Ability: Effective Visual Impairment: No Limitations Hearing Ability: Normal Concrete Craftsman Required: No Beliefs That Will Affect Care: None marital status: Current Living Situation: Spouse Current Living Situation Comment: lives at [facility] 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al status: retired and disabled 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: 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 [employer] Other Information That Helps Us Care for You: No Feels Safe at Home: Yes Safety Concerns: Feels Safe At This Time Smoking Status: Never smoker Tobacco Type: smokeless tobacco ; Second Hand Exposure: No ; Hx Alcohol Use: No Hx Substance Use: No Review of Systems Review of Systems: All systems reviewed & are unremarkable except as noted in HPI & below Physical Exam Physical Exam: General: patient resting comfortably, NAD, ill in appearance, oriented to self Skin: warm, dry, left heel with dressing in place, no bleeding/drainage/malodor HEENT: NC/AT, PERRL, EOMI, anicteric sclera, conjunctiva without injection, external ear normal to inspection and nontender, nares patent, moist mucus membranes, dentition intact, no oropharyngeal lesions, neck supple, trachea midline, no LAD, no thyromegaly, no JVD Heart: +S1/S2, regular, no m/r/g Lungs: equal air entry bilaterally, no rales/rhonchi/wheezes Abd: +BS, soft, NT/ND, no masses/organomegaly/ascites Ext: warm, 2+ pulses in UE/LE bilaterally, no clubbing/cyanosis, trace pitting edema bilaterally Neuro: Patient moving all extremities with equal strength Results & Data Vital Signs (Past 12 Hours) Vital Signs Temp Pulse Resp BP Pulse Ox 04/14/19 16:36 36.4 C L 60 17 122/49 L 98 Laboratory Results Lab Results 04/14/19 04/14/19 04/14/19 Range/Units 17:07 17:10 18:03 WBC 5.80 (4.8-10.8) K/uL RBC 3.16 L (4.7-6.1) M/uL Hgb 9.3 L (14.0-18.0) g/dL Hct 29.0 L (42-52) % MCV 91.8 (80-100) fL MCH 29.4 (25-34) pg MCHC 32.1 (32-36) g/dL RDW Std Deviation 52.0 H (36.4-46.3) fL RDW Coeff of Norbert 15.4 H (11.5-14.5) % Plt Count 166 (130-400) K/uL MPV 9.6 (7.4-10.4) fL Immature Gran % (Auto) 0.2 % Neut % (Auto) 70.2 % Lymph % (Auto) 16.2 % [place] % (Auto) 9.3 % Eos % (Auto) 3.4 % Baso % (Auto) 0.7 % Immature Gran # (Auto) 0.01 (0.00-0.02) K/uL Neut # (Auto) 4.07 (1.4-6.5) K/uL Lymph # (Auto) 0.94 L (1.2-3.4) K/uL [place] # (Auto) 0.54 (0.11-0.59) K/uL Eos # (Auto) 0.20 (0-0.5) K/uL Baso # (Auto) 0.04 (0-0.2) K/uL ESR (0-14) mm/hr PT (9.0-12.0) Seconds INR (0.9-1.1) Sodium (136-145) mmol/L Potassium (3.5-5.1) mmol/L Chloride (98-107) mmol/L Carbon Dioxide (21-32) mmol/L Anion Gap (3-11) BUN (7-18) mg/dl Creatinine (0.6-1.4) mg/dl Est Cr Clr Drug Dosing Est GFR ( Amer) Est GFR (Non-Af Amer) BUN/Creatinine Ratio (10-20) Glucose (70-99) mg/dl POC Glucose 63 L* 67 L* (70-99) Calcium (8.5-10.1) mg/dl Phosphorus (2.5-4.9) mg/dl Magnesium (1.8-2.4) mg/dl Total Bilirubin (0.2-1) mg/dl Direct Bilirubin (0-0.2) mg/dl AST (15-37) U/L ALT (12-78) U/L Alkaline Phosphatase (45-117) U/L C-Reactive Protein (0-0.29) mg/dl Total Protein (6.4-8.2) gm/dl Albumin (3.4-5.0) gm/dl TSH (0.300-4.500) uIu/ml 04/14/19 04/14/19 04/14/19 Range/Units 18:03 18:03 18:03 WBC (4.8-10.8) K/uL RBC (4.7-6.1) M/uL Hgb (14.0-18.0) g/dL Hct (42-52) % MCV (80-100) fL MCH (25-34) pg MCHC (32-36) g/dL RDW Std Deviation (36.4-46.3) fL RDW Coeff of Norbert (11.5-14.5) % Plt Count (130-400) K/uL MPV (7.4-10.4) fL Immature Gran % (Auto) % Neut % (Auto) % Lymph % (Auto) % [place] % (Auto) % Eos % (Auto) % Baso % (Auto) % Immature Gran # (Auto) (0.00-0.02) K/uL Neut # (Auto) (1.4-6.5) K/uL Lymph # (Auto) (1.2-3.4) K/uL [place] # (Auto) (0.11-0.59) K/uL Eos # (Auto) (0-0.5) K/uL Baso # (Auto) (0-0.2) K/uL ESR 9 (0-14) mm/hr PT 11.2 (9.0-12.0) Seconds INR 1.1 (0.9-1.1) Sodium 129 L (136-145) mmol/L Potassium 4.7 (3.5-5.1) mmol/L Chloride 98 (98-107) mmol/L Carbon Dioxide 24 (21-32) mmol/L Anion Gap 7.0 (3-11) BUN 44 H (7-18) mg/dl Creatinine 2.03 H (0.6-1.4) mg/dl Est Cr Clr Drug Dosing Not Reportable Est GFR ( Amer) 38.4 Est GFR (Non-Af Amer) 33.2 BUN/Creatinine Ratio 21.6 H (10-20) Glucose 55 L (70-99) mg/dl POC Glucose (70-99) Calcium 9.7 (8.5-10.1) mg/dl Phosphorus 4.4 (2.5-4.9) mg/dl Magnesium 2.1 (1.8-2.4) mg/dl Total Bilirubin 0.5 (0.2-1) mg/dl Direct Bilirubin 0.2 (0-0.2) mg/dl AST 26 (15-37) U/L ALT 32 (12-78) U/L Alkaline Phosphatase 78 (45-117) U/L C-Reactive Protein 0.46 H (0-0.29) mg/dl Total Protein 7.4 (6.4-8.2) gm/dl Albumin 3.7 (3.4-5.0) gm/dl TSH 6.560 H (0.300-4.500) uIu/ml 04/14/19 04/14/19 04/14/19 Range/Units 18:18 18:45 19:08 WBC (4.8-10.8) K/uL RBC (4.7-6.1) M/uL Hgb (14.0-18.0) g/dL Hct (42-52) % MCV (80-100) fL MCH (25-34) pg MCHC (32-36) g/dL RDW Std Deviation (36.4-46.3) fL RDW Coeff of Norbert (11.5-14.5) % Plt Count (130-400) K/uL MPV (7.4-10.4) fL Immature Gran % (Auto) % Neut % (Auto) % Lymph % (Auto) % [place] % (Auto) % Eos % (Auto) % Baso % (Auto) % Immature Gran # (Auto) (0.00-0.02) K/uL Neut # (Auto) (1.4-6.5) K/uL Lymph # (Auto) (1.2-3.4) K/uL [place] # (Auto) (0.11-0.59) K/uL Eos # (Auto) (0-0.5) K/uL Baso # (Auto) (0-0.2) K/uL ESR (0-14) mm/hr PT (9.0-12.0) Seconds INR (0.9-1.1) Sodium (136-145) mmol/L Potassium (3.5-5.1) mmol/L Chloride (98-107) mmol/L Carbon Dioxide (21-32) mmol/L Anion Gap (3-11) BUN (7-18) mg/dl Creatinine (0.6-1.4) mg/dl Est Cr Clr Drug Dosing Est GFR ( Amer) Est GFR (Non-Af Amer) BUN/Creatinine Ratio (10-20) Glucose (70-99) mg/dl POC Glucose 58 L* 62 L* 79 (70-99) Calcium (8.5-10.1) mg/dl Phosphorus (2.5-4.9) mg/dl Magnesium (1.8-2.4) mg/dl Total Bilirubin (0.2-1) mg/dl Direct Bilirubin (0-0.2) mg/dl AST (15-37) U/L ALT (12-78) U/L Alkaline Phosphatase (45-117) U/L C-Reactive Protein (0-0.29) mg/dl Total Protein (6.4-8.2) gm/dl Albumin (3.4-5.0) gm/dl TSH (0.300-4.500) uIu/ml 11/05/19 Range/Units 20:31 WBC (4.8-10.8) K/uL RBC (4.7-6.1) M/uL Hgb (14.0-18.0) g/dL Hct (42-52) % MCV (80-100) fL MCH (25-34) pg MCHC (32-36) g/dL RDW Std Deviation (36.4-46.3) fL RDW Coeff of Norbert (11.5-14.5) % Plt Count (130-400) K/uL MPV (7.4-10.4) fL Immature Gran % (Auto) % Neut % (Auto) % Lymph % (Auto) % [place] % (Auto) % Eos % (Auto) % Baso % (Auto) % Immature Gran # (Auto) (0.00-0.02) K/uL Neut # (Auto) (1.4-6.5) K/uL Lymph # (Auto) (1.2-3.4) K/uL [place] # (Auto) (0.11-0.59) K/uL Eos # (Auto) (0-0.5) K/uL Baso # (Auto) (0-0.2) K/uL ESR (0-14) mm/hr PT (9.0-12.0) Seconds INR (0.9-1.1) Sodium (136-145) mmol/L Potassium (3.5-5.1) mmol/L Chloride (98-107) mmol/L Carbon Dioxide (21-32) mmol/L Anion Gap (3-11) BUN (7-18) mg/dl Creatinine (0.6-1.4) mg/dl Est Cr Clr Drug Dosing Est GFR ( Amer) Est GFR (Non-Af Amer) BUN/Creatinine Ratio (10-20) Glucose (70-99) mg/dl POC Glucose 85 (70-99) Calcium (8.5-10.1) mg/dl Phosphorus (2.5-4.9) mg/dl Magnesium (1.8-2.4) mg/dl Total Bilirubin (0.2-1) mg/dl Direct Bilirubin (0-0.2) mg/dl AST (15-37) U/L ALT (12-78) U/L Alkaline Phosphatase (45-117) U/L C-Reactive Protein (0-0.29) mg/dl Total Protein (6.4-8.2) gm/dl Albumin (3.4-5.0) gm/dl TSH (0.300-4.500) uIu/ml Diagnostic Findings Lumbar spine CT performed. Formal read pending X-ray foot performed. Code Status & VTE Plan Code Status Full code VTE Prophylaxis Plan VTE Prophylaxis will be ordered: Yes PG Care Time/CCT Total # of Minutes Spent Total Time Spent with Patient: Total time spent is greater than 50% in coordination of care (as documented) at patient's floor/unit and/or counseling patient: (1) Osteomyelitis of foot Laterality: left Osteomyelitis type: unspecified type Qualified Code(s): M86 .9 - Osteomyelitis, unspecified (2) Back pain Back pain location: low back pain Chronicity: chronic Back pain laterality: unspecified Sciatica presence: unspecified whether sciatica present Qualified Code(s): M54.5 - Low back pain; G89.29 - Other chronic pain (3) BPH (benign prostatic hyperplasia) Lower urinary tract symptom presence: unspecified whether lower urinary tract symptoms present Qualified Code(s): N40.0 - Benign prostatic hyperplasia without lower urinary tract symptoms (4) Coronary artery disease Coronary Disease-Associated Artery/Lesion type: [place] artery [place] vs. transplanted heart: [place] heart Associated angina: without angina Qualified Code(s): I25.10 - Atherosclerotic heart disease of [place] coronary artery without angina pectoris (5) HTN (hypertension) Hypertension type: essential hypertension Qualified Code(s): I10 - Essential (primary) hypertension
[2019-04-14] MEDS: D5W AND NSS 1,000 ML IV SCH (23:27)
--- NOTE | 2019-04-14 23:33 | CT Scan Report ---
CT SCAN OF THE LUMBAR SPINE WITHOUT IV CONTRAST CLINICAL HISTORY: Low back pain. COMPARISON STUDY: CT of the lumbar spine dated 12/01/2018 and 09/30/2018. TECHNIQUE: CT scan of the lumbar spine is performed from the lower thoracic spine to the sacrum. Imag es are reviewed in the axial, sagittal, and coronal planes. IV contrast was not administered for this examination. The examination is degraded by streak artifact from metallic orthopedic hardware. A dos e lowering technique was utilized adhering to the principles of ALARA. CT DOSE: 736.65 mGy.cm FINDINGS: The skeletal structures are osteopenic. Vertebral body height is maintained throughout the lumbar spine. There is a mild chronic superior endplate compression deformity of T12. There is 9 mm o f retrolisthesis at L3-L4. Alignment is otherwise preserved. There is straightening of the lumbar rosibel dosis. There is extensive postoperative change from laminectomy and posterior fusion seen from L1-S1. Interpedicular screws are present at all levels with the exception of L3. There is only a left-sided interpedicular screw at L4. The orthopedic hardware appears intact. There has been discectomy at L3- L4, L4-L5, and L5-S1. Erosive endplate change at L2-L3 is similar in appearance to prior studies. No acute fracture is identified. There is a nonunited fracture involving the body of L3. There is a clinic charge nurse faizan/healing fracture through the base of the right transverse process of L3. Patchy sclerotic change is seen throughout the L3 and L4 vertebral bodies. The transverse processes appear intact. There is n o spondylolysis. The visualized sacrum and bony pelvis appear intact. The central canal is not well e valuated due to extensive streak artifact. Postoperative change is seen within the posterior paraspin ous soft tissues. An ill-defined fluid collection is again suggested within the laminectomy bed. This is not well-visualized due to streak artifact and is likely unchanged from previous. Bilateral pleur al effusions are partially visualized. Moderate atherosclerotic calcification is noted in the abdomin al aorta. 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 The iliopsoas musculature is normal as imaged. IMPRESSION: 1. There has been no significant change from 12/01/2018. 2. Extensive postoperative change as above. 3. No acute fracture is identified. 4. Erosive endplate change at L2-L3 is similar to prior studies. Acute versus chronic osteomyelitis w ould be impossible to exclude and clinical correlation will be essential. 5. There is a chronic nonunited fracture of the L3 vertebral body. 6. A postoperative fluid collection is again suggested in the laminectomy bed. This is not well-visua lized due to streak artifact and the sterility cannot be assessed by CT. 7. Bilateral pleural effusions. 8. Additional findings as above. Electronically signed by: Vinicius Almaraz M.D. 04/14/2019 11:31 PM
[2019-04-15] MEDS: HYDROCODONE/ACETAMOPHEN 5/325MG TAB PO PRN ×2 (01:11→12:53)
[2019-04-15] MEDS: PIPERACILLIN/TAZOBACTAM 3.375 GM in DEXTROSE 5% 100 ML IV SCH ×3 (03:15→19:01)
--- NOTE | 2019-04-15 06:10 | CT Scan Report ---
CT head/brain wo con CT DOSE: 614.27 mGy.cm HISTORY: Mental status change AMS TECHNIQUE: Multiaxial CT images of the head were performed without the use of intravenous contrast. A dose lowering technique was utilized adhering to the principles of ALARA. Comparison: 04/12/2019 Findings: Chronic opacification right mastoid air cells. Mild post thickening of the ethmoid sinuses. Age-related atrophy and chronic small vessel change. No acute intracranial abnormality. No evidence f or acute intracranial hemorrhage. The calvarium and skull base are intact. The ventricles and sulci a re within normal limits. There is no mass, hematoma, midline shift, or acute infarct. Impression: Age-related change. No acute process. The above report was generated using voice recognition software. It may contain grammatical, syntax or spelling errors. Electronically signed by: Samuel Lindo M.D. 04/15/2019 6:09 AM
[2019-04-15 06:22] LABS: Basophils # (auto) 0.02 K/uL (0-0.2); Basophils % (auto) 0.4 %; Eosinophils # (auto) 0.24 K/uL (0-0.5); Eosinophils % (auto) 4.5 %; Hemoglobin 8.9 g/dL (14.0-18.0); Immature Granulocytes # (auto) 0.01 K/uL (0.00-0.02); Immature Granulocytes % (auto) 0.2 %; Lymphocytes # (auto) 0.88 K/uL (1.2-3.4); Lymphocytes % (auto) 16.5 %; Mean Corpuscular Hemoglobin 29.6 pg (25-34); Mean Corpuscular Hgb Conc 31.8 g/dL (32-36); Mean Platelet Volume 9.7 fL (7.4-10.4); Monocytes % (auto) 11.3 %; Neutrophils # (auto) 3.57 K/uL (1.4-6.5); Neutrophils % (auto) 67.1 %; Platelet Count 151 K/uL (130-400); RDW Coefficient of Variation 15.8 % (11.5-14.5); Red Blood Count 3.01 M/uL (4.7-6.1); White Blood Count 5.32 K/uL (4.8-10.8)
[2019-04-15] MEDS ORDERED: LEVOTHYROXINE SODIUM 25 MCG TABLET PO SCH (06:30)
[2019-04-15 07:04] LABS: BUN Creatinine Ratio 20.6 (10-20); Calcium 9.6 mg/dl (8.5-10.1); Creatinine Clr Calc Pharmacy 38.3 ml/min; Est GFR (African American) 36.9; Est GFR (Non-African American) 31.8; Potassium 4.7 mmol/L (3.5-5.1)
[2019-04-15 07:17] LABS: Estimated Average Glucose 131 mg/dl; Hemoglobin A1C 6.2 % (4.5-5.6)
[2019-04-15] MEDS: ONDANSETRON INJ 2 MG/ML 2 ML VIAL IV PRN ×2 (08:25→18:57)
[2019-04-15] MEDS: FERROUS SULFATE 325 MG TAB PO SCH ×3 (08:26→19:07)
[2019-04-15] MEDS: PANTOprazole 40 MG TAB PO SCH ×2 (08:26→21:02)
[2019-04-15] MEDS: ASCORBIC ACID 500 MG TAB PO SCH (08:27)
[2019-04-15] MEDS: FINASTERIDE 5 MG TAB PO SCH (08:27)
[2019-04-15] MEDS: LOSARTAN POTASSIUM 25 MG TAB PO SCH (08:27)
[2019-04-15] MEDS: LIDOCAINE 5% 1 PATCH TD SCH (08:27)
[2019-04-15] MEDS: MULTIVITAMIN TAB PO SCH (08:27)
[2019-04-15] MEDS: METOPROLOL SUCC 50MG EXT REL TAB PO SCH (08:27)
[2019-04-15] MEDS: GABAPENTIN 100 MG CAP PO SCH ×2 (08:28→21:01)
[2019-04-15] MEDS ORDERED: FUROSEMIDE 20 MG TAB PO SCH (09:00)
[2019-04-15] MEDS: INSULIN ASPART 100 UNITS/ML 3 ML PEN SC SCH ×3 (09:26→18:32)
--- NOTE | 2019-04-15 09:52 | Infectious Disease Consult ---
Date of Consultation April 15, 2019 Assessment & Plan (1) Osteomyelitis of foot: Patient with acute confusions and hallucinations, evidence of wound infection left heel, persistent back pain possibly from his vertebral fracture, no evidence of progressive spine infection on CT scan. In further culture results, patient to be treated with combination of daptomycin and Zosyn. Await consultation with Dr. Guillermo regarding his left heel infection. Significance of CT findings unclear, would consider follow-up with orthospine to get their input. Will follow. (2) Acute confusion: (3) L3 vertebral fracture: History of Present Illness Reason for Consultation: Osteomyelitis Attending Physician: Ricky Cunningham History of Present Illness 68-year-old male who I have been following for left foot osteomyelitis status post surgical debridement, as well as previous lumbosacral infection in the setting of hardware, requiring removal and debridement, treated with prolonged antibiotics, being maintained on combination of Omnicef and Bactrim. Previous cultures have grown MRSA and Proteus. He has been seen recently several times in the emergency room for confusion with hallucinations, without obvious etiology being found. He was seen yesterday in the office for follow-up of the above problems, and family noted persistence of hallucinations and confusion, along with increasing drainage from his left heel wound with foul odor. He also has been complaining of severe pain in his back which has been unchanged over the past several weeks. When he was very concerned as his mental status changes were seen previously when he was found to have severe infection. He was also seen by cardiology who was concerned about worsening heart failure but noted to have worsening renal function and low blood pressure. It was felt that he was too difficult to manage all these complaints as an outpatient, was admitted the hospital for further management. CT scan of his lumbar spine showed an L3 vertebral nonunited fracture, as well as continuing endplate changes seen with his previous discitis. X-rays of the foot were relatively unremarkable with soft tissue swelling, but no obvious bone infection seen. Blood cultures have been taken and pending. Wound culture is pending, Gram stain shows rare gram- positive cocci. Allergies Allergy/AdvReac Type Severity Reaction Status Date / Time lorazepam [From Ativan] AdvReac Confusion Verified 04/14/19 20:18 Home Medications Home Medications Medication Instructions Recorded Confirmed Type aspirin [Aspir-81] 81 mg PO QAM 12/01/18 04/14/19 History cholecalciferol (vitamin D3) 2,000 unit PO DAILY 12/01/18 04/14/19 History [Vitamin D3] finasteride [Proscar] 5 mg PO QAM 12/01/18 04/14/19 History metoprolol succinate [Toprol XL] 50 mg PO DAILY 12/01/18 04/14/19 History lidocaine 2 patch TRANSDERMAL DIRECTED 01/14/19 04/14/19 History Therems-M 1 tab PO DAILY 03/23/19 04/14/19 History ascorbic acid (vitamin C) [Vitamin 500 mg PO QAM 03/23/19 04/14/19 History C] atorvastatin 40 mg PO QPM 03/23/19 04/14/19 History hydrocodone-acetaminophen [Larue] 1 tab PO Q4H PRN 03/23/19 04/14/19 History melatonin 5 mg PO HS 03/23/19 04/14/19 History nystatin 1 applic EXT DAILY 03/23/19 04/14/19 History oxycodone 5 mg PO TID 03/23/19 04/14/19 History ferrous sulfate 325 mg (65 mg 325 mg PO BIDM #90 tab 03/30/19 04/14/19 Rx iron) tablet,delayed release tamsulosin 0.4 mg capsule 0.4 mg PO HS #90 cap 03/30/19 04/14/19 Rx cefdinir 300 mg capsule 300 mg PO BID 14 Days #28 cap 04/01/19 04/14/19 Rx sulfamethoxazole 800 1 tab PO BID 14 Days #28 tab 04/01/19 04/14/19 Rx mg-trimethoprim 160 mg tablet gabapentin [Neurontin] 100 mg PO BID 04/10/19 04/14/19 History levothyroxine [Synthroid] 25 mcg PO QAM 04/10/19 04/14/19 History losartan [Cozaar] 25 mg PO QAM 04/10/19 04/14/19 History pantoprazole [Protonix] 40 mg PO BID 04/10/19 04/14/19 History tramadol [Ultram] 50 mg PO Q4H PRN 04/10/19 04/14/19 History clopidogrel [Plavix] 75 mg PO QAM 04/12/19 04/14/19 History furosemide 20 mg PO QAM 04/12/19 04/14/19 History Patient History Social History Preferred Language: Angolan Communication Ability: Effective Visual Impairment: No Limitations Hearing Ability: Normal [employer] Director Required: No Beliefs That Will Affect Care: None marital status: Current Living Situation: Spouse Current Living Situation Comment: lives at [place] 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al status: retired and disabled 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: 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 [employer] Other Information That Helps Us Care for You: No Feels Safe at Home: Yes Safety Concerns: Feels Safe At This Time Smoking Status: Never smoker Tobacco Type: smokeless tobacco ; Second Hand Exposure: No ; Hx Alcohol Use: No Hx Substance Use: No Review of Systems Review of Systems: All systems reviewed & are unremarkable except as noted in HPI & below Physical Exam Constitutional: WD/WN, vitals as above + ill appearing and + altered mental status; no acute distress Eyes: PERRL, conjunctivae normal, anicteric sclerae ENMT: external ear and nose normal, oropharynx normal Neck: trachea midline, no thyromegaly neck nontender Respiratory: normal respiratory effort, lungs clear to auscultation normal percussion; does not use accessory muscles Cardiovascular: Rate/Rhythm: regular rate and regular rhythm Heart Sounds: normal S1 and normal S2; no gallop, no murmur and no cardiac rub Vessels: normal peripheral pulses; no JVD Gastrointestinal (Abdomen): normal bowel sounds, soft, nontender, no hepatosplenomegaly Musculoskeletal: no cyanosis or clubbing, extremities motor strength 5/5 Spine: thoracic spine normal to inspection and lumbar spine normal to inspection; no cervical spinal tenderness Skin: no rashes, warm and dry normal turgor and + wound (Heel wound with seropurulent drainage and foul odor) Neurologic: moves all extremities and awake; no focal motor deficits and no meningeal signs Psychiatric: A+Ox3, euthymic affect Orientation: cooperative Lymphatic: no cervical or axillary lymphadenopathy no inguinal lymphadenopathy Results & Data Vital Signs (Past 12 Hours) Vital Signs Temp Pulse Resp BP Pulse Ox 04/15/19 07:29 36.7 C 62 18 102/63 94 04/14/19 22:53 36.7 C 59 L 16 101/65 96 Laboratory Results Short CBC 04/14/19 04/15/19 Range/Units 18:03 05:41 WBC 5.80 5.32 (4.8-10.8) K/uL Hgb 9.3 L 8.9 L (14.0-18.0) g/dL Hct 29.0 L 28.0 L (42-52) % Plt Count 166 151 (130-400) K/uL BMP 04/14/19 04/15/19 18:03 05:41 Sodium 129 L 130 L Potassium 4.7 4.7 Chloride 98 99 Carbon Dioxide 24 23 BUN 44 H 43 H Creatinine 2.03 H 2.10 H Glucose 55 L 93 Calcium 9.7 9.6 Liver Function 04/14/19 Range/Units 18:03 Total Bilirubin 0.5 (0.2-1) mg/dl Direct Bilirubin 0.2 (0-0.2) mg/dl AST 26 (15-37) U/L ALT 32 (12-78) U/L Alkaline Phosphatase 78 (45-117) U/L Albumin 3.7 (3.4-5.0) gm/dl Diagnostic Findings Name: NICHOLAS NGUYEN Acct: [id number] Status: DEP CLI : 1950 [facility] [place]: 04/14/19 Age: 68 Sex: M Dis Date: Loc: Laboratory Specimen Drop Off Spec: [id number] Collected: 04/14/19 Received: 04/14/[address]: Robert Ndiaye MD Source: Foot OV Order: Ordered: Surf Wnd Cul/Sm Procedure Result Verified Site Gram Stain Final 04/15/19 Gram Stain Result Moderate Polys Rare Gram Positive Cocci Surface Wound Culture PENDING Name: NICHOLAS NGUYEN : 1950 PAGE 1 Printed: 04/15/[address] SCAN OF THE LUMBAR SPINE WITHOUT IV CONTRAST CLINICAL HISTORY: Low back pain. COMPARISON STUDY: CT of the lumbar spine dated 12/01/2018 and 09/30/2018. TECHNIQUE: CT scan of the lumbar spine is performed from the lower thoracic spine to the sacrum. Images are reviewed in the axial, sagittal, and coronal planes. IV contrast was not administered for this examination. The examination is degraded by streak artifact from metallic orthopedic hardware. A dose lowering technique was utilized adhering to the principles of ALARA. CT DOSE: 736.65 mGy.cm FINDINGS: The skeletal structures are osteopenic. Vertebral body height is maintained throughout the lumbar spine. There is a mild chronic superior endplate compression deformity of T12. There is 9 mm of retrolisthesis at L3-L4. Alignment is otherwise preserved. There is straightening of the lumbar lordosis. There is extensive postoperative change from laminectomy and posterior fusion seen from L1-S1. Interpedicular screws are present at all levels with the exception of L3. There is only a left-sided interpedicular screw at L4. The orthopedic hardware appears intact. There has been discectomy at L3-L4, L4-L5, and L5-S1. Erosive endplate change at L2-L3 is similar in appearance to prior studies. No acute fracture is identified. There is a nonunited fracture involving the body of L3. There is a chronic/healing fracture through the base of the right transverse process of L3. Patchy sclerotic change is seen throughout the L3 and L4 vertebral bodies. The transverse processes appear inta ct. There is no spondylolysis. The visualized sacrum and bony pelvis appear intact. The central canal is not well evaluated due to extensive streak artifact. Postoperative change is seen within the posterior paraspinous soft tissues. An ill-defined fluid collection is again suggested within the laminectomy bed. This is not well-visualized due to streak artifact and is likely unchanged from previous. Bilateral pleural effusions are partially visualized. Moderate atherosclerotic calcification is noted in the abdominal aorta. 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 The iliopsoas musculature is normal as imaged. IMPRESSION: 1. There has been no significant change from 12/01/2018. 2. Extensive postoperative change as above. 3. No acute fracture is identified. 4. Erosive endplate change at L2-L3 is similar to prior studies. Acute versus chronic osteomyelitis would be impossible to exclude and clinical correlation will be essential. 5. There is a chronic nonunited fracture of the L3 vertebral body. 6. A postoperative fluid collection is again suggested in the laminectomy bed. This is not well-visualized due to streak artifact and the sterility cannot be assessed by CT. 7. Bilateral pleural effusions. 8. Additional findings as above. Electronically signed by: Vinicius Almaraz M.D. 04/14/2019 11:31 PM Dictated: 04/14/19 2147 LEFT FOOT 2 VIEWS CLINICAL HISTORY: Heel infection. FINDINGS: AP and lateral views of the left foot are correlated with CT of the foot dated 02/02/2019 and left ankle radiograph dated 04/12/2019. The skeletal structures are osteopenic. No acute fracture is seen. Arthritic change is seen throughout the foot. Degenerative spurring is seen along the dorsal aspect of the tarsal bones. Marked soft tissue edema is present throughout the visualized left lower extremity. Skin clips and antibiotic beads project over the calcaneus obscuring visualization. No definite bony erosion is identified. Atherosclerotic calcification is observed in the regional arteries. IMPRESSION: 1. Diffuse soft tissue edema with no acute bony abnormality clearly identified. 2. Skin clips and antibiotic beads project over the heel. Electronically signed by: Vinicius Almaraz M.D. 04/14/2019 10:34 PM Dictated: 04/14/19 2232 PG Care Time/CCT Total # of Minutes Spent Total Time Spent with Patient: Total time spent is greater than 50% in coordination of care (as documented) at patient's floor/unit and/or counseling patient: (1) Osteomyelitis of foot Laterality: left Osteomyelitis type: unspecified type Qualified Code(s): M86.9 - Osteomyelitis, unspecified
--- NOTE | 2019-04-15 10:04 | Hospitalist Progress Note ---
Date of Service April 15, 2019 Assessment & Plan (1) Confusion: * Patient presenting from outpatient clinic with persistent confusion, hallucinations. Concern for infectious etiology. Presently he is afebrile, hemodynamically stable. No leukocytosis. Labs with stable normochromic normocytic anemia, sodium of 129, mildly elevated BUN of 44 and creatinine 2.03 which is near baseline. Episodic hypoglycemia present glucose = 55. Elevated TSH at 6.56. * Admit to medical floor-- ?infectious etiology vs constipation vs spinal abscess vs underlying dementia vs fluid overload from heart failure * Head CT without acute process * Lumbar Spine CT -- erosive endplate change at L2-L3 is similar to prior studies. Acute versus chronic osteomyelitis impossible to exclude. 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 Postoperative fluid collection is again suggested in the laminectomy bed. This is not well-visualized due to streak artifact and the sterility cannot be assessed by CT. Bilateral pleural effusions. * --> Ortho Spine consult- Dr. Morales- appreciate input * CXR wthout cardiomegaly with mild pulmonary vascular congestion, small pleural effusions * Left ankle x-ray - diffuse soft tissue edema with no acute bony abnormality, s kin clips and antibiotic beads project over heel. * KUB today with extensive colonic fecal material consistent with fecal stasis * Bowel regimen with colace and fleet enema -- will reassess in AM * VBG, B1, B12, TSH * Gastric occult * Avoid sedating and anticholinergic medications * Delirium prevention strategies with frequent orientation, ambulation with assistance as tolerated * Glucose checks * Aspiration precautions and fall precautions (2) Osteomyelitis of foot: * Patient with chronic osteomyelitis of the foot. Recently with worsening pain and increased foul-smelling discharge. ESR is relatively unremarkable. CRP mildly elevated at 0.46. X-ray obtained of the left foot, final read pending. Seems to have evidence of chronic osteomyelitis. Hx MRSA- contact precautions. * Duplex Arterial study from 02/02/19 of left leg with moderate arterial occlusive change of all vessel of proximal calf, occlusion of distal left peroneal artery * Venous Doppler bl LE pending * Continue Daptomycin, Zosyn * ID consultation - appreciate input * Dr Guillermo on consult- appreciate input (3) Back pain: * Patient with worsening low back pain of late. Has history of spinal infection/infected hardware requiring extraction and long-term antibiotic jairon atment. CT L-spine and antibiotics as above * ID consultation * Orthopedic surgery consultation appreciated. Patient is known to Dr. Morales (4) History of chronic CHF: * History of ischemic cardiomyopathy with reduced EF to 25 to 30% with an akinetic inferior wall and global hypokinesis. Patient appears to be slightly volume down on current exam. No respiratory distress * Continue home medications aspirin, atorvastatin, metoprolol, losartan * Given patient resting comfortably flat without shortness of breath, but also with lower extremity edema, will hold further fluids and diuresis and re- evaluate in AM * Consider BNP in AM (5) PAD (peripheral artery disease): * Chronic. * Continue aspirin, Plavix, atorvastatin * Duplex study as above (6) Anemia in chronic illness: * H&H stable. No active bleed. * Continue to monitor (7) BPH (benign prostatic hyperplasia): * Patient with history of BPH. * Continue Flomax and Proscar * Monitor urine output (8) Vitamin D deficiency: * Chronic. * Holding vitamin D supplements while inpatient (9) Uncontrolled type 2 diabetes mellitus with neurologic complication, with long-term current use of insulin: * Patient with history of diabetes. Most recent A1c 6.2. No medications listed. * No medications listed. Per , he had previously been on insulin prior to back surgery and complications but had never been restarted. Unsure of reason why. * BSG checks * Continue home Neurontin for neuropathy (10) Thyroid disorder: * Chronic. Elevated TSH today. Appears to have been elevated >5 since November. * Continue Synthroid 25 mcg -- increased to 50 mcg daily as TSH appears to be elevated >5.79 since November 2018. (11) Stage III chronic kidney disease: * BUN and creatinine are near baseline. Patient is making urine. * Avoid nephrotoxic agents. Renal dosing were needed. * Monitor urine output, BUN and creatinine and electrolytes (12) Coronary artery disease: * Stable. Patient denies chest pain. * Continue aspirin, Plavix, atorvastatin, metoprolol, losartan (13) HTN (hypertension): * Blood pressure well controlled- 112/67 - per records, patient with generally low BP * Continue home medications- lasix on hold, continue losartan and metoprolol * Continue monitor (14) High cholesterol: * Chronic. Stable. * Continue atorvastatin (15) DVT prophylaxis: * Lovenox Supervising Physician Co-Signing Physician Notes Attending Attestation: Pt seen/examined, chart reviewed, care plan d/w SIMEON Boone. I agree w/ the husain components of her documentation. Pt confused during my visit but able to answer questions. He c/o back pain. Also c/o abdominal bloating. exam - gen - NAD, confused mouth - MM w/o thrush; mildly dry neck - JVD present heart - RRR, s1 s2 lungs - CTA b/l abd - distended, BS+ ext - 2+ edema b/l, pulses 1-2+ b/l skin - left heel - dressing in place with florentin; black/dark color over the entire heel; no odor Cr 2.1 A/P: 1. metabolic encephalopathy - likely 2nd to left heel infection. 2. chronic systolic CHF - although he has JVD and edema his lungs are clear; would HOLD lasix in setting of acute kidney injury; hold any IV fluids as well. Serial exams and BMPs. 3. acute kidney injury - hold diuretics and fluids; allow creatinine to improve on own back to baseline of 1.2-1.3; BMP am. 4. left heel osteomyelitis - need to speak with Dr Guillermo from [facility] or one of his partners re: this issue. IV abx in meantime. Culture pending. Appreciate ID consult. 5. back pain - h/o epidural abscess in past - abnormal CT - await recs from Dr Morales. Ricky Cunningham MD Subjective Patient evaluated at bedside this morning. Very lethargic and hard to arouse. Patient states he is having abdominal pain in his epigastric region and feels nauseous, then fell back asleep. He had taken two bites of korean toast prior to emesis, which was medium brown in color. Patient evaluated again around lunch with at bedside. Patient more awake and alert but back to sleep shortly after answering questions. The patient's states he had been having hallucinations and got absolutely no sleep prior to coming into the hospital. She states this is very similar to how the patient acted when he had an infection in his spine earlier this year. She states his blood pressure became very low and he was septic and had to be transferred to [place]. She also states that he had been doing relatively well since being discharged from [facility] earlier this month, and was concerned when he started having worsening confusion with at the same time she noted a more foul odor from his foot drainage. Review of Systems Review of Systems: Unobtainable due to cognitive status Physical Exam Constitutional: + ill appearing and + obese; no acute distress Eyes: PERRL and reactive pupils Respiratory: normal respiratory effort and + respiratory distress Auscultation: + diminished lung sounds (bilateral bases); no rhonchi and no wheezes Cardiovascular: Rate/Rhythm: regular rate and regular rhythm Heart Sounds: normal S1 and normal S2 Vessels: + JVD (at 30 degrees, just below mandible) Extremities: + edema (b/l LE 1-2+ pitting edema) Gastrointestinal (Abdomen): Inspection/Auscultation: + abdomen distended and + hypoactive bowel sounds Percussion/Palpation: + abdomen tender (in epigastric region), + tympanic to percussion and + abdomen firm; no hepatosplenomegaly Musculoskeletal: no cyanosis or clubbing, extremities motor strength 5/5 Skin: Left heel osteomyelitis- green/brown drainage with dressing and florentin without streaking Neurologic: PERRL, EOMI, accommodation nl, no face palsy, no dysarthria Psychiatric: Orientation: cooperative intermittently lethargic Lymphatic: no cervical or axillary lymphadenopathy Results & Data Vital Signs (Past 12 Hours) Vital Signs Temp Pulse Resp BP Pulse Ox 04/15/19 07:29 36.7 C 62 18 102/63 94 04/14/19 22:53 36.7 C 59 L 16 101/65 96 Laboratory Results 04/15/19 04/15/19 04/15/19 Range/Units 12:11 10:29 10:29 WBC (4.8-10.8) K/uL RBC (4.7-6.1) M/uL Hgb (14.0-18.0) g/dL Hct (42-52) % MCV (80-100) fL MCH (25-34) pg MCHC (32-36) g/dL RDW Std Deviation (36.4-46.3) fL RDW Coeff of Norbert (11.5-14.5) % Plt Count (130-400) K/uL MPV (7.4-10.4) fL Immature Gran % (Auto) % Neut % (Auto) % Lymph % (Auto) % [place] % (Auto) % Eos % (Auto) % Baso % (Auto) % Immature Gran # (Auto) (0.00-0.02) K/uL Neut # (Auto) (1.4-6.5) K/uL Lymph # (Auto) (1.2-3.4) K/uL [place] # (Auto) (0.11-0.59) K/uL Eos # (Auto) (0-0.5) K/uL Baso # (Auto) (0-0.2) K/uL ESR (0-14) mm/hr PT (9.0-12.0) Seconds INR (0.9-1.1) VBG pH 7.34 L (7.36-7.41) VBG pCO2 43 (38-50) mmHg VBG pO2 32 mmHg VBG HCO3 22 mmol/L VBG O2 Saturation < 60.0 % VBG Base Excess -3.2 mEq/L Barometric Pressure 742.4 mm/Hg Sodium (136-145) mmol/L Potassium (3.5-5.1) mmol/L Chloride (98-107) mmol/L Carbon Dioxide (21-32) mmol/L Anion Gap (3-11) BUN (7-18) mg/dl Creatinine (0.6-1.4) mg/dl Est Cr Clr Drug Dosing Est GFR ( Amer) Est GFR (Non-Af Amer) BUN/Creatinine Ratio (10-20) Glucose (70-99) mg/dl POC Glucose (70-99) Estimat Average Glucose mg/dl Hemoglobin A1c (4.5-5.6) % Calcium (8.5-10.1) mg/dl Phosphorus (2.5-4.9) mg/dl Magnesium (1.8-2.4) mg/dl Total Bilirubin (0.2-1) mg/dl Direct Bilirubin (0-0.2) mg/dl AST (15-37) U/L ALT (12-78) U/L Alkaline Phosphatase (45-117) U/L C-Reactive Protein (0-0.29) mg/dl Total Protein (6.4-8.2) gm/dl Albumin (3.4-5.0) gm/dl Vitamin B1 Pending TSH (0.300-4.500) uIu/ml Urine Color Yellow Urine Appearance Clear (Clear) Urine pH 5.0 (4.5-7.5) Ur Specific [place] 1.019 (1.000-1.030) Urine Protein Negative (Negative) Urine Glucose (UA) Negative (Negative) Urine Ketones Negative (Negative) Urine Blood Negative (Negative) Urine Nitrite Negative (Negative) Urine Bilirubin Negative (Negative) Urine Urobilinogen Negative (Negative) Ur Leukocyte Esterase Negative (Negative) 04/15/19 04/15/19 04/15/19 Range/Units 08:24 05:41 05:41 WBC (4.8-10.8) K/uL RBC (4.7-6.1) M/uL Hgb (14.0-18.0) g/dL Hct (42-52) % MCV (80-100) fL MCH (25-34) pg MCHC (32-36) g/dL RDW Std Deviation (36.4-46.3) fL RDW Coeff of Norbert (11.5-14.5) % Plt Count (130-400) K/uL MPV (7.4-10.4) fL Immature Gran % (Auto) % Neut % (Auto) % Lymph % (Auto) % [place] % (Auto) % Eos % (Auto) % Baso % (Auto) % Immature Gran # (Auto) (0.00-0.02) K/uL Neut # (Auto) (1.4-6.5) K/uL Lymph # (Auto) (1.2-3.4) K/uL [place] # (Auto) (0.11-0.59) K/uL Eos # (Auto) (0-0.5) K/uL Baso # (Auto) (0-0.2) K/uL ESR (0-14) mm/hr PT (9.0-12.0) Seconds INR (0.9-1.1) VBG pH (7.36-7.41) VBG pCO2 (38-50) mmHg VBG pO2 mmHg VBG HCO3 mmol/L VBG O2 Saturation % VBG Base Excess mEq/L Barometric Pressure mm/Hg Sodium 130 L (136-145) mmol/L Potassium 4.7 (3.5-5.1) mmol/L Chloride 99 (98-107) mmol/L Carbon Dioxide 23 (21-32) mmol/L Anion Gap 8.0 (3-11) BUN 43 H (7-18) mg/dl Creatinine 2.10 H (0.6-1.4) mg/dl Est Cr Clr Drug Dosing 38.3 Est GFR ( Amer) 36.9 Est GFR (Non-Af Amer) 31.8 BUN/Creatinine Ratio 20.6 H (10-20) Glucose 93 (70-99) mg/dl POC Glucose 112 H (70-99) Estimat Average Glucose 131 mg/dl Hemoglobin A1c 6.2 H (4.5-5.6) % Calcium 9.6 (8.5-10.1) mg/dl Phosphorus (2.5-4.9) mg/dl Magnesium (1.8-2.4) mg/dl Total Bilirubin (0.2-1) mg/dl Direct Bilirubin (0-0.2) mg/dl AST (15-37) U/L ALT (12-78) U/L Alkaline Phosphatase (45-117) U/L C-Reactive Protein (0-0.29) mg/dl Total Protein (6.4-8.2) gm/dl Albumin (3.4-5.0) gm/dl Vitamin B1 TSH (0.300-4.500) uIu/ml Urine Color Urine Appearance (Clear) Urine pH (4.5-7.5) Ur Specific [place] (1.000-1.030) Urine Protein (Negative) Urine Glucose (UA) (Negative) Urine Ketones (Negative) Urine Blood (Negative) Urine Nitrite (Negative) Urine Bilirubin (Negative) Urine Urobilinogen (Negative) Ur Leukocyte Esterase (Negative) 04/15/19 04/14/19 04/14/19 Range/Units 05:41 20:31 19:08 WBC 5.32 (4.8-10.8) K/uL RBC 3.01 L (4.7-6.1) M/uL Hgb 8.9 L (14.0-18.0) g/dL Hct 28.0 L (42-52) % MCV 93.0 (80-100) fL MCH 29.6 (25-34) pg MCHC 31.8 L (32-36) g/dL RDW Std Deviation 54.0 H (36.4-46.3) fL RDW Coeff of Norbert 15.8 H (11.5-14.5) % Plt Count 151 (130-400) K/uL MPV 9.7 (7.4-10.4) fL Immature Gran % (Auto) 0.2 % Neut % (Auto) 67.1 % Lymph % (Auto) 16.5 % [place] % (Auto) 11.3 % Eos % (Auto) 4.5 % Baso % (Auto) 0.4 % Immature Gran # (Auto) 0.01 (0.00-0.02) K/uL Neut # (Auto) 3.57 (1.4-6.5) K/uL Lymph # (Auto) 0.88 L (1.2-3.4) K/uL [place] # (Auto) 0.60 H (0.11-0.59) K/uL Eos # (Auto) 0.24 (0-0.5) K/uL Baso # (Auto) 0.02 (0-0.2) K/uL ESR (0-14) mm/hr PT (9.0-12.0) Seconds INR (0.9-1.1) VBG pH (7.36-7.41) VBG pCO2 (38-50) mmHg VBG pO2 mmHg VBG HCO3 mmol/L VBG O2 Saturation % VBG Base Excess mEq/L Barometric Pressure mm/Hg Sodium (136-145) mmol/L Potassium (3.5-5.1) mmol/L Chloride (98-107) mmol/L Carbon Dioxide (21-32) mmol/L Anion Gap (3-11) BUN (7-18) mg/dl Creatinine (0.6-1.4) mg/dl Est Cr Clr Drug Dosing Est GFR ( Amer) Est GFR (Non-Af Amer) BUN/Creatinine Ratio (10-20) Glucose (70-99) mg/dl POC Glucose 85 79 (70-99) Estimat Average Glucose mg/dl Hemoglobin A1c (4.5-5.6) % Calcium (8.5-10.1) mg/dl Phosphorus (2.5-4.9) mg/dl Magnesium (1.8-2.4) mg/dl Total Bilirubin (0.2-1) mg/dl Direct Bilirubin (0-0.2) mg/dl AST (15-37) U/L ALT (12-78) U/L Alkaline Phosphatase (45-117) U/L C-Reactive Protein (0-0.29) mg/dl Total Protein (6.4-8.2) gm/dl Albumin (3.4-5.0) gm/dl Vitamin B1 TSH (0.300-4.500) uIu/ml Urine Color Urine Appearance (Clear) Urine pH (4.5-7.5) Ur Specific [place] (1.000-1.030) Urine Protein (Negative) Urine Glucose (UA) (Negative) Urine Ketones (Negative) Urine Blood (Negative) Urine Nitrite (Negative) Urine Bilirubin (Negative) Urine Urobilinogen (Negative) Ur Leukocyte Esterase (Negative) 04/14/19 04/14/19 04/14/19 Range/Units 18:45 18:18 18:03 WBC (4.8-10.8) K/uL RBC (4.7-6.1) M/uL Hgb (14.0-18.0) g/dL Hct (42-52) % MCV (80-100) fL MCH (25-34) pg MCHC (32-36) g/dL RDW Std Deviation (36.4-46.3) fL RDW Coeff of Norbert (11.5-14.5) % Plt Count (130-400) K/uL MPV (7.4-10.4) fL Immature Gran % (Auto) % Neut % (Auto) % Lymph % (Auto) % [place] % (Auto) % Eos % (Auto) % Baso % (Auto) % Immature Gran # (Auto) (0.00-0.02) K/uL Neut # (Auto) (1.4-6.5) K/uL Lymph # (Auto) (1.2-3.4) K/uL [place] # (Auto) (0.11-0.59) K/uL Eos # (Auto) (0-0.5) K/uL Baso # (Auto) (0-0.2) K/uL ESR (0-14) mm/hr PT (9.0-12.0) Seconds INR (0.9-1.1) VBG pH (7.36-7.41) VBG pCO2 (38-50) mmHg VBG pO2 mmHg VBG HCO3 mmol/L VBG O2 Saturation % VBG Base Excess mEq/L Barometric Pressure mm/Hg Sodium 129 L (136-145) mmol/L Potassium 4.7 (3.5-5.1) mmol/L Chloride 98 (98-107) mmol/L Carbon Dioxide 24 (21-32) mmol/L Anion Gap 7.0 (3-11) BUN 44 H (7-18) mg/dl Creatinine 2.03 H (0.6-1.4) mg/dl Est Cr Clr Drug Dosing Not Reportable Est GFR ( Amer) 38.4 Est GFR (Non-Af Amer) 33.2 BUN/Creatinine Ratio 21.6 H (10-20) Glucose 55 L (70-99) mg/dl POC Glucose 62 L* 58 L* (70-99) Estimat Average Glucose mg/dl Hemoglobin A1c (4.5-5.6) % Calcium 9.7 (8.5-10.1) mg/dl Phosphorus 4.4 (2.5-4.9) mg/dl Magnesium 2.1 (1.8-2.4) mg/dl Total Bilirubin 0.5 (0.2-1) mg/dl Direct Bilirubin 0.2 (0-0.2) mg/dl AST 26 (15-37) U/L ALT 32 (12-78) U/L Alkaline Phosphatase 78 (45-117) U/L C-Reactive Protein 0.46 H (0-0.29) mg/dl Total Protein 7.4 (6.4-8.2) gm/dl Albumin 3.7 (3.4-5.0) gm/dl Vitamin B1 TSH 6.560 H (0.300-4.500) uIu/ml Urine Color Urine Appearance (Clear) Urine pH (4.5-7.5) Ur Specific [place] (1.000-1.030) Urine Protein (Negative) Urine Glucose (UA) (Negative) Urine Ketones (Negative) Urine Blood (Negative) Urine Nitrite (Negative) Urine Bilirubin (Negative) Urine Urobilinogen (Negative) Ur Leukocyte Esterase (Negative) 04/14/19 04/14/19 04/14/19 Range/Units 18:03 18:03 18:03 WBC 5.80 (4.8-10.8) K/uL RBC 3.16 L (4.7-6.1) M/uL Hgb 9.3 L (14.0-18.0) g/dL Hct 29.0 L (42-52) % MCV 91.8 (80-100) fL MCH 29.4 (25-34) pg MCHC 32.1 (32-36) g/dL RDW Std Deviation 52.0 H (36.4-46.3) fL RDW Coeff of Norbert 15.4 H (11.5-14.5) % Plt Count 166 (130-400) K/uL MPV 9.6 (7.4-10.4) fL Immature Gran % (Auto) 0.2 % Neut % (Auto) 70.2 % Lymph % (Auto) 16.2 % [place] % (Auto) 9.3 % Eos % (Auto) 3.4 % Baso % (Auto) 0.7 % Immature Gran # (Auto) 0.01 (0.00-0.02) K/uL Neut # (Auto) 4.07 (1.4-6.5) K/uL Lymph # (Auto) 0.94 L (1.2-3.4) K/uL [place] # (Auto) 0.54 (0.11-0.59) K/uL Eos # (Auto) 0.20 (0-0.5) K/uL Baso # (Auto) 0.04 (0-0.2) K/uL ESR 9 (0-14) mm/hr PT 11.2 (9.0-12.0) Seconds INR 1.1 (0.9-1.1) VBG pH (7.36-7.41) VBG pCO2 (38-50) mmHg VBG pO2 mmHg VBG HCO3 mmol/L VBG O2 Saturation % VBG Base Excess mEq/L Barometric Pressure mm/Hg Sodium (136-145) mmol/L Potassium (3.5-5.1) mmol/L Chloride (98-107) mmol/L Carbon Dioxide (21-32) mmol/L Anion Gap (3-11) BUN (7-18) mg/dl Creatinine (0.6-1.4) mg/dl Est Cr Clr Drug Dosing Est GFR ( Amer) Est GFR (Non-Af Amer) BUN/Creatinine Ratio (10-20) Glucose (70-99) mg/dl POC Glucose (70-99) Estimat Average Glucose mg/dl Hemoglobin A1c (4.5-5.6) % Calcium (8.5-10.1) mg/dl Phosphorus (2.5-4.9) mg/dl Magnesium (1.8-2.4) mg/dl Total Bilirubin (0.2-1) mg/dl Direct Bilirubin (0-0.2) mg/dl AST (15-37) U/L ALT (12-78) U/L Alkaline Phosphatase (45-117) U/L C-Reactive Protein (0-0.29) mg/dl Total Protein (6.4-8.2) gm/dl Albumin (3.4-5.0) gm/dl Vitamin B1 TSH (0.300-4.500) uIu/ml Urine Color Urine Appearance (Clear) Urine pH (4.5-7.5) Ur Specific [place] (1.000-1.030) Urine Protein (Negative) Urine Glucose (UA) (Negative) Urine Ketones (Negative) Urine Blood (Negative) Urine Nitrite (Negative) Urine Bilirubin (Negative) Urine Urobilinogen (Negative) Ur Leukocyte Esterase (Negative) 04/14/19 04/14/19 Range/Units 17:10 17:07 WBC (4.8-10.8) K/uL RBC (4.7-6.1) M/uL Hgb (14.0-18.0) g/dL Hct (42-52) % MCV (80-100) fL MCH (25-34) pg MCHC (32-36) g/dL RDW Std Deviation (36.4-46.3) fL RDW Coeff of Norbert (11.5-14.5) % Plt Count (130-400) K/uL MPV (7.4-10.4) fL Immature Gran % (Auto) % Neut % (Auto) % Lymph % (Auto) % [place] % (Auto) % Eos % (Auto) % Baso % (Auto) % Immature Gran # (Auto) (0.00-0.02) K/uL Neut # (Auto) (1.4-6.5) K/uL Lymph # (Auto) (1.2-3.4) K/uL [place] # (Auto) (0.11-0.59) K/uL Eos # (Auto) (0-0.5) K/uL Baso # (Auto) (0-0.2) K/uL ESR (0-14) mm/hr PT (9.0-12.0) Seconds INR (0.9-1.1) VBG pH (7.36-7.41) VBG pCO2 (38-50) mmHg VBG pO2 mmHg VBG HCO3 mmol/L VBG O2 Saturation % VBG Base Excess mEq/L Barometric Pressure mm/Hg Sodium (136-145) mmol/L Potassium (3.5-5.1) mmol/L Chloride (98-107) mmol/L Carbon Dioxide (21-32) mmol/L Anion Gap (3-11) BUN (7-18) mg/dl Creatinine (0.6-1.4) mg/dl Est Cr Clr Drug Dosing Est GFR ( Amer) Est GFR (Non-Af Amer) BUN/Creatinine Ratio (10-20) Glucose (70-99) mg/dl POC Glucose 67 L* 63 L* (70-99) Estimat Average Glucose mg/dl Hemoglobin A1c (4.5-5.6) % Calcium (8.5-10.1) mg/dl Phosphorus (2.5-4.9) mg/dl Magnesium (1.8-2.4) mg/dl Total Bilirubin (0.2-1) mg/dl Direct Bilirubin (0-0.2) mg/dl AST (15-37) U/L ALT (12-78) U/L Alkaline Phosphatase (45-117) U/L C-Reactive Protein (0-0.29) mg/dl Total Protein (6.4-8.2) gm/dl Albumin (3.4-5.0) gm/dl Vitamin B1 TSH (0.300-4.500) uIu/ml Urine Color Urine Appearance (Clear) Urine pH (4.5-7.5) Ur Specific [place] (1.000-1.030) Urine Protein (Negative) Urine Glucose (UA) (Negative) Urine Ketones (Negative) Urine Blood (Negative) Urine Nitrite (Negative) Urine Bilirubin (Negative) Urine Urobilinogen (Negative) Ur Leukocyte Esterase (Negative) Diagnostic Findings XR KUB/Abdomen 1 view CLINICAL HISTORY: emesis, distended, abdominal pain pain COMPARISON STUDY: 12/08/2018 FINDINGS: Considerable increase in colonic fecal load compared to the prior study. This appearance is consistent with that of fecal stasis. Postoperative changes of the lumbar spine are again noted. No significant small bowel distention. IMPRESSION: Extensive colonic fecal material consistent with fecal stasis. PG Care Time/CCT Total # of Minutes Spent Total Time Spent with Patient: Total time spent is greater than 50% in coordination of care (as documented) at patient's floor/unit and/or counseling patient: (1) BPH (benign prostatic hyperplasia) Lower urinary tract symptom presence: unspecified whether lower urinary tract symptoms present Qualified Code(s): N40.0 - Benign prostatic hyperplasia without lower urinary tract symptoms (2) Coronary artery disease Associated angina: without angina Coronary Disease-Associated Artery/Lesion type: crow artery [place] vs. transplanted heart: crow heart Qualified Code(s): I25.10 - Atherosclerotic heart disease of crow coronary artery without angina pectoris (3) Back pain Back pain laterality: unspecified Back pain location: low back pain Chronicity: chronic Sciatica presence: unspecified whether sciatica present Qualified Code(s): M54.5 - Low back pain; G89.29 - Other chronic pain (4) Osteomyelitis of foot Laterality: left Osteomyelitis type: unspecified type Qualified Code(s): M86.9 - Osteomyelitis, unspecified (5) HTN (hypertension) Hypertension type: essential hypertension Qualified Code(s): I10 - Essential (primary) hypertension
--- NOTE | 2019-04-15 10:39 | XRay Report ---
XR KUB/Abdomen 1 view CLINICAL HISTORY: emesis, distended, abdominal pain pain COMPARISON STUDY: 12/08/2018 FINDINGS: Considerable increase in colonic fecal load compared to the prior study. This appearance is consistent with that of fecal stasis. Postoperative changes of the lumbar spine are again noted. No significant small bowel distention. IMPRESSION: Extensive colonic fecal material consistent with fecal stasis. The above report was generated using voice recognition software. It may contain grammatical, syntax or spelling errors. Electronically signed by: Samuel Lindo M.D. 04/15/2019 10:38 AM
[2019-04-15 10:56] LABS: Base Excess VBG -3.2 mEq/L; HCO3 VBG 22 mmol/L; PCO2 VBG 43 mmHg (38-50); PO2 VBG 32 mmHg; pH VBG 7.34 (7.36-7.41)
[2019-04-15 11:00] LABS: Oxygen Saturation VBG < 60.0 %
[2019-04-15] MEDS ORDERED: Nursing to Pharmacy Communication ONE (11:02)
[2019-04-15] MEDS: D5W AND NSS 1,000 ML IV SCH (11:27)
[2019-04-15] MEDS: NYSTATIN OINT 15 GM TUBE EXT SCH (11:28)
[2019-04-15 12:53] LABS: Appearance Urine Clear (Clear); Bilirubin Urine Negative (Negative); Blood Urine Negative (Negative); Color Urine Yellow; Glucose Urine UA Negative (Negative); Ketones Urine Negative (Negative); Leukocyte Esterase Urine Negative (Negative); Nitrite Urine Negative (Negative); Protein Urine Negative (Negative); Specific Gravity Urine 1.019 (1.000-1.030); Urobilinogen Urine Negative (Negative)
[2019-04-15] MEDS ORDERED: BISACODYL 5 MG TABEC PO ONE (13:23)
[2019-04-15] MEDS ORDERED: SOD PHOSPHATE/SOD BIPHOSPHATE ENEMA 132 ML BTL PR PRN (13:31)
[2019-04-15] MEDS: LEVOTHYROXINE SODIUM 50 MCG TABLET PO SCH (13:38)
[2019-04-15] MEDS: DOCUSATE SODIUM 100 MG CAP PO PRN (19:05)
[2019-04-15] MEDS: POLYETHYLENE (MIRALAX) 17 GM PACK PO PRN (19:05)
[2019-04-15] MEDS: DAPTOmycin 400 MG in SYRINGE 0 ML IV SCH (19:41)
--- NOTE | 2019-04-15 20:58 | Ultrasound Report ---
ULTRASOUND BILATERAL LOWER EXTREMITY VENOUS CLINICAL HISTORY: Lower extremity edema. COMPARISON STUDY: Bilateral lower extremity venous ultrasound dated 10/28/2011 TECHNIQUE: Real-time, grayscale, and color Doppler sonography of the deep veins of the right and left lower extremity was performed from the inguinal crease to the calf. Compression and augmentation wer e utilized. FINDINGS: There is no sonographic evidence of deep venous thrombosis identified in the right or left lower extremity. The common femoral, superficial femoral, and popliteal veins are patent and normally compressible bilaterally. The greater saphenous vein and the profunda femoris vein at the junction w ith the common femoral vein are clear in both legs. The visualized calf veins are patent bilaterally. IMPRESSION: There is no sonographic evidence of deep venous thrombosis identified in the right or lef t lower extremity. Electronically signed by: Vinicius Almaraz M.D. 04/15/2019 8:56 PM
[2019-04-15] MEDS: TAMSULOSIN HCL 0.4 MG CAP PO SCH (21:02)
[2019-04-15] MEDS: ENOXAPARIN INJ 40 MG/0.4 ML SYR SQ SCH (21:02)
[2019-04-16] MEDS: INSULIN ASPART 100 UNITS/ML 3 ML PEN SC SCH ×5 (00:35→20:49)
[2019-04-16] MEDS: PIPERACILLIN/TAZOBACTAM 3.375 GM in DEXTROSE 5% 100 ML IV SCH (01:58)
[2019-04-16] MEDS: LEVOTHYROXINE SODIUM 50 MCG TABLET PO SCH (06:02)
[2019-04-16 07:06] LABS: Hematocrit (blood only) 27.5 % (42-52); Mean Corpuscular Hemoglobin 30.7 pg (25-34); Mean Corpuscular Hgb Conc 32.7 g/dL (32-36); Mean Corpuscular Volume 93.9 fL (80-100); Mean Platelet Volume 9.6 fL (7.4-10.4); Platelet Count 140 K/uL (130-400); RDW Coefficient of Variation 15.6 % (11.5-14.5); RDW Standard Deviation 53.7 fL (36.4-46.3); Red Blood Count 2.93 M/uL (4.7-6.1); White Blood Count 5.65 K/uL (4.8-10.8)
[2019-04-16 07:10] LABS: INR 1.1 (0.9-1.1); Prothrombin Time 11.3 Seconds (9.0-12.0)
[2019-04-16 07:33] LABS: Albumin Level 3.4 gm/dl (3.4-5.0); BUN Creatinine Ratio 21.6 (10-20); Calcium 9.3 mg/dl (8.5-10.1); Creatinine Clr Calc Pharmacy 43.9 ml/min; Est GFR (African American) 43.6; Est GFR (Non-African American) 37.6; Potassium 4.7 mmol/L (3.5-5.1)
[2019-04-16 07:35] LABS: Bilirubin,Total 0.5 mg/dl (0.2-1); Globulin 3.4 gm/dl (2.5-4.0); Phosphorus 4.3 mg/dl (2.5-4.9); Total Protein 6.8 gm/dl (6.4-8.2)
--- NOTE | 2019-04-16 07:45 | Orthopedic Consultation ---
Date of Consultation April 16, 2019 Assessment & Plan (1) Back pain: This time I will evaluate his CAT scan thoroughly. He appears to be healing from a bony standpoint. Instrumentation is in place appropriate alignment. Do not appreciate fractures or dislocations. I suspect the majority of his discomfort is related to disuse. I have encouraged him to transfer to the chair as much as possible. Would not intervene with any surgical recommendations at this time. Present on Admission?: Yes History of Present Illness Reason for Consultation: Back pain Attending Physician: Ricky Cunningham History of Present Illness This is a 68-year-old male well-known to me that presents the hospital with multiple medical issues. He is status post multilevel lumbar decompression fusion. He has been struggling with mobilization for many months now. He did have significant compression of the L3 nerve roots bilaterally. Today he states he has no radicular pain. He denies any numbness and tingling to lower extremities. Complains mostly of mid lumbar back pain with movement. But rest he is comfortable. He states he has been transferred to a chair in a regular basis and tolerates this reasonably well. Still not ambulating on his own. Allergies Allergy/AdvReac Type Severity Reaction Status Date / Time lorazepam [From Ativan] AdvReac Confusion Verified 04/14/19 20:18 Home Medications Home Medications Medication Instructions Recorded Confirmed Type aspirin [Aspir-81] 81 mg PO QAM 12/01/18 04/14/19 History cholecalciferol (vitamin D3) 2,000 unit PO DAILY 12/01/18 04/14/19 History [Vitamin D3] finasteride [Proscar] 5 mg PO QAM 12/01/18 04/14/19 History metoprolol succinate [Toprol XL] 50 mg PO DAILY 12/01/18 04/14/19 History lidocaine 2 patch TRANSDERMAL DIRECTED 01/14/19 04/14/19 History Therems-M 1 tab PO DAILY 03/23/19 04/14/19 History ascorbic acid (vitamin C) [Vitamin 500 mg PO QAM 03/23/19 04/14/19 History C] atorvastatin 40 mg PO QPM 03/23/19 04/14/19 History hydrocodone-acetaminophen [[place]] 1 tab PO Q4H PRN 03/23/19 04/14/19 History melatonin 5 mg PO HS 03/23/19 04/14/19 History nystatin 1 applic EXT DAILY 03/23/19 04/14/19 History oxycodone 5 mg PO TID 03/23/19 04/14/19 History ferrous sulfate 325 mg (65 mg 325 mg PO BIDM #90 tab 03/30/19 04/14/19 Rx iron) tablet,delayed release tamsulosin 0.4 mg capsule 0.4 mg PO HS #90 cap 03/30/19 04/14/19 Rx cefdinir 300 mg capsule 300 mg PO BID 14 Days #28 cap 04/01/19 04/14/19 Rx sulfamethoxazole 800 1 tab PO BID 14 Days #28 tab 04/01/19 04/14/19 Rx mg-trimethoprim 160 mg tablet gabapentin [Neurontin] 100 mg PO BID 04/10/19 04/14/19 History levothyroxine [Synthroid] 25 mcg PO QAM 04/10/19 04/14/19 History losartan [Cozaar] 25 mg PO QAM 04/10/19 04/14/19 History pantoprazole [Protonix] 40 mg PO BID 04/10/19 04/14/19 History tramadol [Ultram] 50 mg PO Q4H PRN 04/10/19 04/14/19 History clopidogrel [Plavix] 75 mg PO QAM 04/12/19 04/14/19 History furosemide 20 mg PO QAM 04/12/19 04/14/19 History Patient History Social History Preferred Language: E[place] Communication Ability: Effective Visual Impairment: No Limitations Hearing Ability: Normal 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 Beliefs That Will Affect Care: None marital status: Current Living Situation: Spouse Current Living Situation Comment: lives at [facility] 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al status: retired and disabled 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: 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 There is no significant reproducible pain to palpation or percussion of the thoracolumbar musculature. He does have significantly weak quadriceps bilaterally but plantar flexion dorsiflexion appears to be intact. Sensory is intact. Results & Data Vital Signs (Past 12 Hours) Vital Signs Temp Pulse Pulse Resp BP BP Pulse Ox 04/16/19 06:31 36.7 C 67 18 119/65 93 04/16/19 03:16 36.3 C L 61 19 98/55 L 93 04/15/19 23:23 36.9 C 62 20 110/70 95 (1) Back pain Back pain location: low back pain Chronicity: chronic Back pain laterality: unspecified Sciatica presence: unspecified whether sciatica present Qualified Code(s): M54.5 - Low back pain; G89.29 - Other chronic pain
--- NOTE | 2019-04-16 08:50 | Hospitalist Progress Note ---
Date of Service April 16, 2019 Assessment & Plan (1) Confusion: * Patient presenting from outpatient clinic with persistent confusion, hallucinations. Concern for infectious etiology. Presently he is afebrile, hemodynamically stable. No leukocytosis. Labs with stable normochromic normocytic anemia, sodium of 129, mildly elevated BUN of 44 and creatinine 2.03 which is near baseline. Episodic hypoglycemia present glucose = 55. Elevated TSH at 6.56. * Admit to medical floor-- ?infectious etiology vs constipation vs spinal abscess vs underlying dementia vs fluid overload from heart failure * Head CT without acute process * Lumbar Spine CT -- erosive endplate change at L2-L3 is similar to prior studies. Acute versus chronic osteomyelitis impossible to exclude. 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 Postoperative fluid collection is again suggested in the laminectomy bed. This is not well-visualized due to streak artifact and the sterility cannot be assessed by CT. Bilateral pleural effusions. * --> Ortho Spine consult- Dr. Morales- appreciate input -- no intervention at this time * CXR wthout cardiomegaly with mild pulmonary vascular congestion, small pleural effusions * Left ankle x-ray - diffuse soft tissue edema with no acute bony abnormality, skin clips and antibiotic beads project over heel. * KUB yesterday with extensive colonic fecal material consistent with fecal stasis. Bowel regimen with colace and fleet enema with 3 large BMs * TSH high at 6.560 -- synthroid increased to 50mcg this morning * Gastric occult pending * Avoid sedating and anticholinergic medications * Delirium prevention strategies with frequent orientation, ambulation with assistance as tolerated * Glucose checks * Aspiration precautions and fall precautions (2) Osteomyelitis of foot: * Patient with chronic osteomyelitis of the foot. Recently with worsening pain and increased foul-smelling discharge. ESR is relatively unremarkable. CRP mildly elevated at 0.46. X-ray obtained of the left foot. Seems to have evidence of chronic osteomyelitis. Hx MRSA- contact precautions. * Duplex Arterial study from 02/02/19 of left leg with moderate arterial occlusive change of all vessel of proximal calf, occlusion of distal left peroneal artery * Venous Doppler bl LE negative for DVT * Continue Daptomycin * ID consultation - appreciate input * Dr Guillermo on consult- appreciate input -- patient seen by Dr. Heck today -- rec to follow up with plastics outpatient on Nov 17th vs transfer to tertiary care as inpatient * Culture with ZOSYN RESISTANT PSEUDOMONAS --> switched to CIPRO today * Wound RN consult (3) Back pain: * Patient with worsening low back pain of late. Has history of spinal infection/infected hardware requiring extraction and long-term antibiotic treatment. CT L-spine and antibiotics as above * ID consultation * Orthopedic surgery consultation appreciated-no intervention at this time (4) History of chronic CHF: * History of ischemic cardiomyopathy with reduced EF to 25 to 30% with an akinetic inferior wall and global hypokinesis. Patient appears to be slightly volume down on current exam. No respiratory distress * Continue home medications aspirin, atorvastatin, metoprolol, losartan. Hold lasix * Given patient resting comfortably flat without shortness of breath, but also with lower extremity edema, will hold further fluids and diuresis and re- evaluate in AM (5) PAD (peripheral artery disease): * Chronic. * Continue aspirin, Plavix, atorvastatin * Duplex study as above (6) Anemia in chronic illness: * H&H stable. No active bleed. * Continue to monitor (7) BPH (benign prostatic hyperplasia): * Patient with history of BPH. * Continue Flomax and Proscar * Monitor urine output (8) Vitamin D deficiency: * Chronic. * Holding vitamin D supplements while inpatient (9) Uncontrolled type 2 diabetes mellitus with neurologic complication, with long-term current use of insulin: * Patient with history of diabetes. Most recent A1c 6.2. No medications listed. * No medications listed. Per , he had previously been on insulin prior to back surgery and complications but had never been restarted. Unsure of reason why. * BSG checks * Continue home Neurontin for neuropathy (10) Thyroid disorder: * Chronic. Elevated TSH today. Appears to have been elevated >5 since November. * Continue Synthroid 25 mcg -- increased to 50 mcg daily as TSH appears to be elevated >5.79 since November 2018. (11) Stage III chronic kidney disease: * BUN and creatinine are near baseline. Patient is making urine. * Avoid nephrotoxic agents. Renal dosing were needed. * Monitor urine output, BUN and creatinine and electrolytes (12) Coronary artery disease: * Stable. Patient denies chest pain. * Continue aspirin, Plavix, atorvastatin, metoprolol, losartan (13) HTN (hypertension): * Blood pressure well controlled- 103/62 - per records, patient with generally low BP * Continue home medications- lasix on hold, continue losartan and metoprolol * Continue to monitor (14) High cholesterol: * Chronic. Stable. * Continue atorvastatin (15) DVT prophylaxis: * Lovenox (16) Chronic systolic heart failure: (17) Metabolic encephalopathy: (18) PAULA (acute kidney injury): Supervising Physician Co-Signing Physician Notes Attending Attestation: Chart reviewed, care plan d/w SIMEON Boone. I agree w/ the husain components of her documentation. Creatinine mildly improved today from 2.1 down to 1.8. Culture from left foot - pseudomonas, resistant to pip/tazo, ceftaz, aztreonam. Dopplers legs neg for DVT. Ongoing metabolic encephalopathy - likely 2nd to left heel infection. Other factors in confusion likely also at play. PAULA improving. Chronic systolic CHF - compensated. Left heel osteomyelitis - appreciate ID & ortho consults. May need referral to tertiary care center. Will speak with plastics about whether the procedure ortho is recommending is feasible at [facility]. Otherwise will need transfer. Appreciate Dr Morales consult - nothing to do at this time from spine standpoint. Likely not contributing to metabolic encephalopathy or overall current condition. Hyponatremia - chronic, going back to mid-March. Likely related to PAULA, diuretic usage, etc. BMP am. Ricky Cunningham MD Subjective Patient evaluated at bedside this morning. He continues to have abdominal pain in the epigastric region. Three large bowel movements since yesterday. Appetite improved. He still has complaints of pain in his lower back. Denies any further episodes of emesis. Denies chest pain, shortness of breath, fever, or chills. Review of Systems Constitutional: no fever and no chills Ear, Nose, Mouth, Throat: no ear pain and no dysphagia Respiratory: no cough, no chest congestion and no dyspnea Cardiovascular: no chest pain and no edema Gastrointestinal: no nausea and no vomiting several formed BMs Musculoskeletal: + back pain Physical Exam Constitutional: + ill appearing and + obese; no acute distress Eyes: PERRL and reactive pupils Respiratory: normal respiratory effort Auscultation: + diminished lung sounds (bilateral bases); no rhonchi and no wheezes Cardiovascular: Rate/Rhythm: regular rate and regular rhythm Heart Sounds: normal S1 and normal S2 Vessels: + JVD (at 30 degrees, just below mandible) Extremities: + edema (b/l LE 1-2+ pitting edema) Gastrointestinal (Abdomen): Inspection/Auscultation: + abdomen distended and + hypoactive bowel sounds Percussion/Palpation: + abdomen tender (in epigastric region), + tympanic to percussion and + abdomen firm; no hepatosplenomegaly Musculoskeletal: no cyanosis or clubbing, extremities motor strength 5/5 Skin: left heel ulcer with florentin holding dressing green appearing drainage nv intact Neurologic: PERRL, EOMI, accommodation nl, no face palsy, no dysarthria Psychiatric: Orientation: cooperative lethargic Lymphatic: no cervical or axillary lymphadenopathy Results & Data Vital Signs (Past 12 Hours) Vital Signs Temp Pulse Pulse Resp BP BP Pulse Ox 04/16/19 06:31 36.7 C 67 18 119/65 93 04/16/19 03:16 36.3 C L 61 19 98/55 L 93 04/15/19 23:23 36.9 C 62 20 110/70 95 Laboratory Results 04/16/19 04/16/19 04/16/19 Range/Units 06:32 06:32 06:32 WBC 5.65 (4.8-10.8) K/uL RBC 2.93 L (4.7-6.1) M/uL Hgb 9.0 L (14.0-18.0) g/dL Hct 27.5 L (42-52) % MCV 93.9 (80-100) fL MCH 30.7 (25-34) pg MCHC 32.7 (32-36) g/dL RDW Std Deviation 53.7 H (36.4-46.3) fL RDW Coeff of Norbert 15.6 H (11.5-14.5) % Plt Count 140 (130-400) K/uL MPV 9.6 (7.4-10.4) fL PT 11.3 (9.0-12.0) Seconds INR 1.1 (0.9-1.1) VBG pH (7.36-7.41) VBG pCO2 (38-50) mmHg VBG pO2 mmHg VBG HCO3 mmol/L VBG O2 Saturation % VBG Base Excess mEq/L Barometric Pressure mm/Hg Sodium 132 L (136-145) mmol/L Potassium 4.7 (3.5-5.1) mmol/L Chloride 100 (98-107) mmol/L Carbon Dioxide 25 (21-32) mmol/L Anion Gap 7.0 (3-11) BUN 39 H (7-18) mg/dl Creatinine 1.83 H (0.6-1.4) mg/dl Est Cr Clr Drug Dosing 43.9 ml/min Est GFR ( Amer) 43.6 Est GFR (Non-Af Amer) 37.6 BUN/Creatinine Ratio 21.6 H (10-20) Glucose 85 (70-99) mg/dl POC Glucose (70-99) Calcium 9.3 (8.5-10.1) mg/dl Phosphorus 4.3 (2.5-4.9) mg/dl Magnesium 2.0 (1.8-2.4) mg/dl Total Bilirubin 0.5 (0.2-1) mg/dl AST 20 (15-37) U/L ALT 26 (12-78) U/L Alkaline Phosphatase 69 (45-117) U/L Total Protein 6.8 (6.4-8.2) gm/dl Albumin 3.4 (3.4-5.0) gm/dl Globulin 3.4 (2.5-4.0) gm/dl Albumin/Globulin Ratio 1.0 (0.9-2) Vitamin B1 Urine Color Urine Appearance (Clear) Urine pH (4.5-7.5) Ur Specific [place] (1.000-1.030) Urine Protein (Negative) Urine Glucose (UA) (Negative) Urine Ketones (Negative) Urine Blood (Negative) Urine Nitrite (Negative) Urine Bilirubin (Negative) Urine Urobilinogen (Negative) Ur Leukocyte Esterase (Negative) 04/16/19 04/15/19 04/15/19 Range/Units 05:47 23:49 20:59 WBC (4.8-10.8) K/uL RBC (4.7-6.1) M/uL Hgb (14.0-18.0) g/dL Hct (42-52) % MCV (80-100) fL MCH (25-34) pg MCHC (32-36) g/dL RDW Std Deviation (36.4-46.3) fL RDW Coeff of Norbert (11.5-14.5) % Plt Count (130-400) K/uL MPV (7.4-10.4) fL PT (9.0-12.0) Seconds INR (0.9-1.1) VBG pH (7.36-7.41) VBG pCO2 (38-50) mmHg VBG pO2 mmHg VBG HCO3 mmol/L VBG O2 Saturation % VBG Base Excess mEq/L Barometric Pressure mm/Hg Sodium (136-145) mmol/L Potassium (3.5-5.1) mmol/L Chloride (98-107) mmol/L Carbon Dioxide (21-32) mmol/L Anion Gap (3-11) BUN (7-18) mg/dl Creatinine (0.6-1.4) mg/dl Est Cr Clr Drug Dosing ml/min Est GFR ( Amer) Est GFR (Non-Af Amer) BUN/Creatinine Ratio (10-20) Glucose (70-99) mg/dl POC Glucose 92 89 93 (70-99) Calcium (8.5-10.1) mg/dl Phosphorus (2.5-4.9) mg/dl Magnesium (1.8-2.4) mg/dl Total Bilirubin (0.2-1) mg/dl AST (15-37) U/L ALT (12-78) U/L Alkaline Phosphatase (45-117) U/L Total Protein (6.4-8.2) gm/dl Albumin (3.4-5.0) gm/dl Globulin (2.5-4.0) gm/dl Albumin/Globulin Ratio (0.9-2) Vitamin B1 Urine Color Urine Appearance (Clear) Urine pH (4.5-7.5) Ur Specific [place] (1.000-1.030) Urine Protein (Negative) Urine Glucose (UA) (Negative) Urine Ketones (Negative) Urine Blood (Negative) Urine Nitrite (Negative) Urine Bilirubin (Negative) Urine Urobilinogen (Negative) Ur Leukocyte Esterase (Negative) 04/15/19 04/15/19 04/15/19 Range/Units 17:22 12:21 12:11 WBC (4.8-10.8) K/uL RBC (4.7-6.1) M/uL Hgb (14.0-18.0) g/dL Hct (42-52) % MCV (80-100) fL MCH (25-34) pg MCHC (32-36) g/dL RDW Std Deviation (36.4-46.3) fL RDW Coeff of Norbert (11.5-14.5) % Plt Count (130-400) K/uL MPV (7.4-10.4) fL PT (9.0-12.0) Seconds INR (0.9-1.1) VBG pH (7.36-7.41) VBG pCO2 (38-50) mmHg VBG pO2 mmHg VBG HCO3 mmol/L VBG O2 Saturation % VBG Base Excess mEq/L Barometric Pressure mm/Hg Sodium (136-145) mmol/L Potassium (3.5-5.1) mmol/L Chloride (98-107) mmol/L Carbon Dioxide (21-32) mmol/L Anion Gap (3-11) BUN (7-18) mg/dl Creatinine (0.6-1.4) mg/dl Est Cr Clr Drug Dosing ml/min Est GFR ( Amer) Est GFR (Non-Af Amer) BUN/Creatinine Ratio (10-20) Glucose (70-99) mg/dl POC Glucose 95 111 H (70-99) Calcium (8.5-10.1) mg/dl Phosphorus (2.5-4.9) mg/dl Magnesium (1.8-2.4) mg/dl Total Bilirubin (0.2-1) mg/dl AST (15-37) U/L ALT (12-78) U/L Alkaline Phosphatase (45-117) U/L Total Protein (6.4-8.2) gm/dl Albumin (3.4-5.0) gm/dl Globulin (2.5-4.0) gm/dl Albumin/Globulin Ratio (0.9-2) Vitamin B1 Urine Color Yellow Urine Appearance Clear (Clear) Urine pH 5.0 (4.5-7.5) Ur Specific [place] 1.019 (1.000-1.030) Urine Protein Negative (Negative) Urine Glucose (UA) Negative (Negative) Urine Ketones Negative (Negative) Urine Blood Negative (Negative) Urine Nitrite Negative (Negative) Urine Bilirubin Negative (Negative) Urine Urobilinogen Negative (Negative) Ur Leukocyte Esterase Negative (Negative) 11/06/19 11/06/19 11/06/19 Range/Units 10:29 10:29 08:24 WBC (4.8-10.8) K/uL RBC (4.7-6.1) M/uL Hgb (14.0-18.0) g/dL Hct (42-52) % MCV (80-100) fL MCH (25-34) pg MCHC (32-36) g/dL RDW Std Deviation (36.4-46.3) fL RDW Coeff of Norbert (11.5-14.5) % Plt Count (130-400) K/uL MPV (7.4-10.4) fL PT (9.0-12.0) Seconds INR (0.9-1.1) VBG pH 7.34 L (7.36-7.41) VBG pCO2 43 (38-50) mmHg VBG pO2 32 mmHg VBG HCO3 22 mmol/L VBG O2 Saturation < 60.0 % VBG Base Excess -3.2 mEq/L Barometric Pressure 742.4 mm/Hg Sodium (136-145) mmol/L Potassium (3.5-5.1) mmol/L Chloride (98-107) mmol/L Carbon Dioxide (21-32) mmol/L Anion Gap (3-11) BUN (7-18) mg/dl Creatinine (0.6-1.4) mg/dl Est Cr Clr Drug Dosing ml/min Est GFR ( Amer) Est GFR (Non-Af Amer) BUN/Creatinine Ratio (10-20) Glucose (70-99) mg/dl POC Glucose 112 H (70-99) Calcium (8.5-10.1) mg/dl Phosphorus (2.5-4.9) mg/dl Magnesium (1.8-2.4) mg/dl Total Bilirubin (0.2-1) mg/dl AST (15-37) U/L ALT (12-78) U/L Alkaline Phosphatase (45-117) U/L Total Protein (6.4-8.2) gm/dl Albumin (3.4-5.0) gm/dl Globulin (2.5-4.0) gm/dl Albumin/Globulin Ratio (0.9-2) Vitamin B1 Pending Urine Color Urine Appearance (Clear) Urine pH (4.5-7.5) Ur Specific [place] (1.000-1.030) Urine Protein (Negative) Urine Glucose (UA) (Negative) Urine Ketones (Negative) Urine Blood (Negative) Urine Nitrite (Negative) Urine Bilirubin (Negative) Urine Urobilinogen (Negative) Ur Leukocyte Esterase (Negative) PG Care Time/CCT Total # of Minutes Spent Total Time Spent with Patient: Total time spent is greater than 50% in coordination of care (as documented) at patient's floor/unit and/or counseling patient: (1) BPH (benign prostatic hyperplasia) Lower urinary tract symptom presence: unspecified whether lower urinary tract symptoms present Qualified Code(s): N40.0 - Benign prostatic hyperplasia without lower urinary tract symptoms (2) Coronary artery disease Associated angina: without angina Coronary Disease-Associated Artery/Lesion type: [place] artery [place] vs. transplanted heart: [place] heart Qualified Code(s): I25.10 - Atherosclerotic heart disease of [place] coronary artery without angina pectoris (3) Back pain Back pain laterality: unspecified Back pain location: low back pain Chronicity: chronic Sciatica presence: unspecified whether sciatica present Qualified Code(s): M54.5 - Low back pain; G89.29 - Other chronic pain (4) Osteomyelitis of foot Laterality: left Osteomyelitis type: unspecified type Qualified Code(s): M86.9 - Osteomyelitis, unspecified (5) HTN (hypertension) Hypertension type: essential hypertension Qualified Code(s): I10 - Essential (primary) hypertension
--- NOTE | 2019-04-16 09:54 | Infectious Disease Progress Nt ---
Date of Service April 16, 2019 Assessment & Plan (1) Osteomyelitis of foot: Patient with acute confusions and hallucinations, evidence of wound infection left heel, persistent back pain possibly from his vertebral fracture, no evidence of progressive spine infection on CT scan. Given resistance to Zosyn, patient has been transition to oral ciprofloxacin adjusted for his renal insufficiency. Will continue on daptomycin for now given previous culture positive for MRSA. Will discuss with all involved. Will follow. (2) Acute confusion: (3) L3 vertebral fracture: Subjective Patient seen in follow-up for probable worsening infection of his heel, as well as persistent back pain. Orthopedic surgery follow-up noted. Patient remains lethargic, had some nausea and vomiting yesterday. X-ray shows large amount of feces in colon consistent with fecal stasis. Doppler ultrasound shows no evidence of DVT. Cultures from foot have now pseudomonas aeruginosa, resistant to Zosyn. Remains afebrile. Still with localized mid back pain. Review of Systems Review of Systems: All systems reviewed & are unremarkable except as noted in HPI & below Physical Exam Constitutional: WD/WN, vitals as above + ill appearing and + altered mental status; no acute distress Eyes: PERRL, conjunctivae normal, anicteric sclerae ENMT: external ear and nose normal, oropharynx normal Neck: trachea midline, no thyromegaly neck nontender Respiratory: normal respiratory effort, lungs clear to auscultation normal percussion; does not use accessory muscles Cardiovascular: Rate/Rhythm: regular rate and regular rhythm Heart Sounds: normal S1 and normal S2; no gallop, no murmur and no cardiac rub Vessels: normal peripheral pulses; no JVD Gastrointestinal (Abdomen): normal bowel sounds, soft, nontender, no hepatosplenomegaly Musculoskeletal: no cyanosis or clubbing, extremities motor strength 5/5 Spine: thoracic spine normal to inspection and lumbar spine normal to inspection; no cervical spinal tenderness Skin: no rashes, warm and dry normal turgor and + wound (Heel wound with seropurulent drainage and foul odor) Neurologic: moves all extremities and awake; no focal motor deficits and no meningeal signs Psychiatric: A+Ox3, euthymic affect Orientation: cooperative Lymphatic: no cervical or axillary lymphadenopathy no inguinal lymphadenopathy Results & Data Vital Signs (Past 12 Hours) Vital Signs Temp Pulse Pulse Resp BP BP Pulse Ox 04/16/19 06:31 36.7 C 67 18 119/65 93 04/16/19 03:16 36.3 C L 61 19 98/55 L 93 04/15/19 23:23 36.9 C 62 20 110/70 95 Laboratory Results Short CBC 04/16/19 Range/Units 06:32 WBC 5.65 (4.8-10.8) K/uL Hgb 9.0 L (14.0-18.0) g/dL Hct 27.5 L (42-52) % Plt Count 140 (130-400) K/uL BMP 04/16/19 06:32 Sodium 132 L Potassium 4.7 Chloride 100 Carbon Dioxide 25 BUN 39 H Creatinine 1.83 H Glucose 85 Calcium 9.3 Liver Function 04/16/19 Range/Units 06:32 Total Bilirubin 0.5 (0.2-1) mg/dl AST 20 (15-37) U/L ALT 26 (12-78) U/L Alkaline Phosphatase 69 (45-117) U/L Albumin 3.4 (3.4-5.0) gm/dl Urine 04/15/19 Range/Units 12:11 Urine Color Yellow Urine Appearance Clear (Clear) Urine pH 5.0 (4.5-7.5) Ur Specific [place] 1.019 (1.000-1.030) Urine Protein Negative (Negative) Urine Glucose (UA) Negative (Negative) Diagnostic Findings Microbiology 04/14/19 18:03 Blood Aerobic Blood Culture - Preliminary No growth in Aerobic bottle after 24 hours. 04/14/19 18:03 Blood Anaerobic Blood Culture - Final 04/14/19 18:03 Blood Aerobic Blood Culture - Preliminary No growth in Aerobic bottle after 24 hours. 04/14/19 18:03 Blood Anaerobic Blood Culture - Preliminary No growth in Anaerobic bottle after 24 hours. XR KUB/Abdomen 1 view CLINICAL HISTORY: emesis, distended, abdominal pain pain COMPARISON STUDY: 12/08/2018 FINDINGS: Considerable increase in colonic fecal load compared to the prior study. This appearance is consistent with that of fecal stasis. Postoperative changes of the lumbar spine are again noted. No significant small bowel distention. IMPRESSION: Extensive colonic fecal material consistent with fecal stasis. The above report was generated using voice recognition software. It may contain grammatical, syntax or spelling errors. PG Care Time/CCT Total # of Minutes Spent Total Time Spent with Patient: Total time spent is greater than 50% in coordination of care (as documented) at patient's floor/unit and/or counseling patient: (1) Osteomyelitis of foot Laterality: left Osteomyelitis type: unspecified type Qualified Code(s): M86.9 - Osteomyelitis, unspecified
[2019-04-16] MEDS: POLYETHYLENE (MIRALAX) 17 GM PACK PO PRN (10:21)
[2019-04-16] MEDS: DOCUSATE SODIUM 100 MG CAP PO PRN (10:21)
[2019-04-16] MEDS: PANTOprazole 40 MG TAB PO SCH ×2 (10:22→20:49)
[2019-04-16] MEDS: FERROUS SULFATE 325 MG TAB PO SCH ×2 (10:22→17:19)
[2019-04-16] MEDS: METOPROLOL SUCC 50MG EXT REL TAB PO SCH (10:22)
[2019-04-16] MEDS: MULTIVITAMIN TAB PO SCH (10:22)
[2019-04-16] MEDS: GABAPENTIN 100 MG CAP PO SCH ×2 (10:22→20:50)
[2019-04-16] MEDS: NYSTATIN OINT 15 GM TUBE EXT SCH (10:22)
[2019-04-16] MEDS: FINASTERIDE 5 MG TAB PO SCH (10:23)
[2019-04-16] MEDS: LOSARTAN POTASSIUM 25 MG TAB PO SCH (10:23)
[2019-04-16] MEDS: ASCORBIC ACID 500 MG TAB PO SCH (10:23)
[2019-04-16] MEDS: LIDOCAINE 5% 1 PATCH TD SCH (10:28)
[2019-04-16] MEDS: CIPROFLOXACIN 500 MG TAB PO SCH ×2 (11:34→20:50)
[2019-04-16] MEDS ORDERED: Nursing to Pharmacy Communication ONE (13:39)
--- NOTE | 2019-04-16 16:13 | Orthopedic Consultation ---
Date of Consultation April 16, 2019 Assessment & Plan (1) Chronic osteomyelitis of foot: Is a very large chronic left posterior heel wound, with likely underlying chronic osteomyelitis in his calcaneus. He is a diabetic and has been nonambulatory for the past year. He already has established care with Dr. Guillermo, our Foot and Ankle subspecialist. Per Dr. Guillermo's last note on March 17, as well as direct discussions with him today, he would recommend transfer to [facility] for tertiary care to include plastic surgery free flap coverage of this posterior heel wound. This was relayed to the patient. The patient then stated that he had previously arranged to see the plastic surgeon that will be at at [facility] [address] on April 26. He currently does not have any evidence of a spreading or systemic infection, so we will defer further surgical treatment to Dr. Guillermo and the plastic surgeons. If he is not transferred to [facility] as an inpatient, he should follow-up with Dr. Guillermo at [facility] after discharge. Call [phone] to make an appointment. Present on Admission?: Yes History of Present Illness Reason for Consultation: Left heel ulcer Attending Physician: Ricky Cunningham History of Present Illness Mr. Cooper is a 68-year-old nonambulatory male with diabetes who has had a chronic ulcer on his left heel. He is a very poor historian, but it sounds like this ulcer has been there for at least 6 months. He says that he has been nonambulatory for the past year, but he has difficulty explaining why. He does have established care with Dr. Guillermo and infectious disease for this heel wound. It sounds like this wound has been progressively worsening, but the patient himself is unsure of this. Dr. uGillermo has previously suggested transfer to a tertiary care center for free flap coverage of this heel wound. He was recently admitted for confusion and hallucinations, thought to be a possible infectious etiology. Allergies Allergy/AdvReac Type Severity Reaction Status Date / Time lorazepam [From Ativan] AdvReac Confusion Verified 04/14/19 20:18 Home Medications Home Medications Medication Instructions Recorded Confirmed Type aspirin [Aspir-81] 81 mg PO QAM 12/01/18 04/14/19 History cholecalciferol (vitamin D3) 2,000 unit PO DAILY 12/01/18 04/14/19 History [Vitamin D3] finasteride [Proscar] 5 mg PO QAM 12/01/18 04/14/19 History metoprolol succinate [Toprol XL] 50 mg PO DAILY 12/01/18 04/14/19 History lidocaine 2 patch TRANSDERMAL DIRECTED 01/14/19 04/14/19 History Therems-M 1 tab PO DAILY 03/23/19 04/14/19 History ascorbic acid (vitamin C) [Vitamin 500 mg PO QAM 03/23/19 04/14/19 History C] atorvastatin 40 mg PO QPM 03/23/19 04/14/19 History hydrocodone-acetaminophen [[place]] 1 tab PO Q4H PRN 03/23/19 04/14/19 History melatonin 5 mg PO HS 03/23/19 04/14/19 History nystatin 1 applic EXT DAILY 03/23/19 04/14/19 History oxycodone 5 mg PO TID 03/23/19 04/14/19 History ferrous sulfate 325 mg (65 mg 325 mg PO BIDM #90 tab 03/30/19 04/14/19 Rx iron) tablet,delayed release tamsulosin 0.4 mg capsule 0.4 mg PO HS #90 cap 03/30/19 04/14/19 Rx cefdinir 300 mg capsule 300 mg PO BID 14 Days #28 cap 04/01/19 04/14/19 Rx sulfamethoxazole 800 1 tab PO BID 14 Days #28 tab 04/01/19 04/14/19 Rx mg-trimethoprim 160 mg tablet gabapentin [Neurontin] 100 mg PO BID 04/10/19 04/14/19 History levothyroxine [Synthroid] 25 mcg PO QAM 04/10/19 04/14/19 History losartan [Cozaar] 25 mg PO QAM 04/10/19 04/14/19 History pantoprazole [Protonix] 40 mg PO BID 04/10/19 04/14/19 History tramadol [Ultram] 50 mg PO Q4H PRN 04/10/19 04/14/19 History clopidogrel [Plavix] 75 mg PO QAM 04/12/19 04/14/19 History furosemide 20 mg PO QAM 04/12/19 04/14/19 History Patient History Social History Preferred Language: Bengali Communication Ability: Effective Visual Impairment: No Limitations Hearing Ability: Normal 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: No Beliefs That Will Affect Care: None marital status: Current Living Situation: Spouse Current Living Situation Comment: lives at [facility] 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al status: retired and disabled 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: 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 There is a dressing stapled in place around the wound, as well as an overlying bandage. No significant surrounding erythema, warmth, or induration. No active drainage. The foot is overall warm and well perfused. He is able to dorsiflex and plantarflex his toes and heel. He reports intact sensation to light touch in the superficial peroneal, deep peroneal, and tibial nerve distributions. Results & Data Vital Signs (Past 12 Hours) Vital Signs Temp Pulse Resp BP Pulse Ox 04/16/19 15:26 36.7 C 62 17 103/62 97 04/16/19 06:31 36.7 C 67 18 119/65 93 Laboratory Results ESR 9 Diagnostic Findings Left foot x-rays were reviewed. He has florentin in place consistent with the dressing stapled to the heel wound. There appears to be some antibiotic cement beads within the wound. No obvious erosions or periosteal reaction in the posterior calcaneus.
[2019-04-16] MEDS: TAMSULOSIN HCL 0.4 MG CAP PO SCH (20:48)
[2019-04-16] MEDS: ENOXAPARIN INJ 40 MG/0.4 ML SYR SQ SCH (20:50)
[2019-04-16] MEDS: DAPTOmycin 400 MG in SYRINGE 0 ML IV SCH (20:51)
[2019-04-16] MEDS: HYDROCODONE/ACETAMOPHEN 5/325MG TAB PO PRN (22:17)
[2019-04-17] MEDS: LEVOTHYROXINE SODIUM 50 MCG TABLET PO SCH (05:55)
[2019-04-17 06:57] LABS: Hematocrit (blood only) 26.4 % (42-52); Hemoglobin 8.7 g/dL (14.0-18.0); Mean Corpuscular Hemoglobin 30.4 pg (25-34); Mean Corpuscular Volume 92.3 fL (80-100); Mean Platelet Volume 9.3 fL (7.4-10.4); Platelet Count 123 K/uL (130-400); RDW Coefficient of Variation 15.5 % (11.5-14.5); RDW Standard Deviation 52.7 fL (36.4-46.3); Red Blood Count 2.86 M/uL (4.7-6.1); White Blood Count 5.93 K/uL (4.8-10.8)
[2019-04-17 07:29] LABS: Albumin Level 3.1 gm/dl (3.4-5.0); BUN Creatinine Ratio 23.2 (10-20); Calcium 9.1 mg/dl (8.5-10.1); Creatinine Clr Calc Pharmacy 49.9 ml/min; Est GFR (African American) 50.9; Est GFR (Non-African American) 43.9; Potassium 4.4 mmol/L (3.5-5.1)
[2019-04-17 07:32] LABS: Bilirubin,Total 0.3 mg/dl (0.2-1); Globulin 3.1 gm/dl (2.5-4.0); Total Protein 6.2 gm/dl (6.4-8.2)
[2019-04-17] MEDS: CIPROFLOXACIN 500 MG TAB PO SCH ×2 (09:13→21:08)
[2019-04-17] MEDS: MULTIVITAMIN TAB PO SCH (09:14)
[2019-04-17] MEDS: NYSTATIN OINT 15 GM TUBE EXT SCH (09:14)
[2019-04-17] MEDS: PANTOprazole 40 MG TAB PO SCH ×2 (09:14→21:09)
[2019-04-17] MEDS: METOPROLOL SUCC 50MG EXT REL TAB PO SCH (09:14)
[2019-04-17] MEDS: FERROUS SULFATE 325 MG TAB PO SCH ×2 (09:15→16:19)
[2019-04-17] MEDS: FINASTERIDE 5 MG TAB PO SCH (09:15)
[2019-04-17] MEDS: GABAPENTIN 100 MG CAP PO SCH ×2 (09:15→21:09)
[2019-04-17] MEDS: ASCORBIC ACID 500 MG TAB PO SCH (09:16)
[2019-04-17] MEDS: LOSARTAN POTASSIUM 25 MG TAB PO SCH (09:16)
[2019-04-17] MEDS: LIDOCAINE 5% 1 PATCH TD SCH (09:18)
[2019-04-17] MEDS: INSULIN ASPART 100 UNITS/ML 3 ML PEN SC SCH ×4 (09:21→21:11)
[2019-04-17] MEDS: ONDANSETRON INJ 2 MG/ML 2 ML VIAL IV PRN (09:39)
[2019-04-17] MEDS ORDERED: FUROSEMIDE 20 MG TAB PO STA (11:08)
--- NOTE | 2019-04-17 12:45 | XRay Report ---
XR KUB/Abdomen 1 view CLINICAL HISTORY: abdominal distention pain COMPARISON STUDY: 04/15/2019 FINDINGS: Moderate increase in fecal load within the descending and transverse colonic regions. Several air-filled loops of small bowel in the right central abdomen suggesting a mild nonobstructive ileus. IMPRESSION: 1. Moderate increase in fecal load transverse and descending colons. 2. Mild nonobstructive small bowel ileus. 3. Stable postoperative changes of the lumbar spine. The above report was generated using voice recognition software. It may contain grammatical, syntax or spelling errors. Electronically signed by: Samuel Lindo M.D. 04/17/2019 12:44 PM
--- NOTE | 2019-04-17 14:11 | Infectious Disease Progress Nt ---
Date of Service April 17, 2019 Assessment & Plan (1) Osteomyelitis of foot: Patient with acute confusions and hallucinations, evidence of wound infection left heel, persistent back pain possibly from his vertebral fracture, no evidence of progressive spine infection on CT scan. Given resistance to Zosyn, patient has been transition to oral ciprofloxacin adjusted for his renal insufficiency. Will continue on daptomycin for now given previous culture positive for MRSA. Would continue on IV daptomycin and oral ciprofloxacin until evaluated by plastic surgery for possible intervention. Will discuss with all involved. (2) Acute confusion: (3) L3 vertebral fracture: Subjective Patient seen in follow-up for left heel infection. Continues on daptomycin and ciprofloxacin, tolerating without apparent difficulty. Remains afebrile. Renal function has improved. Review of Systems Review of Systems: All systems reviewed & are unremarkable except as noted in HPI & below Physical Exam Constitutional: WD/WN, vitals as above + ill appearing and + altered mental status; no acute distress Eyes: PERRL, conjunctivae normal, anicteric sclerae ENMT: external ear and nose normal, oropharynx normal Neck: trachea midline, no thyromegaly neck nontender Respiratory: normal respiratory effort, lungs clear to auscultation normal percussion; does not use accessory muscles Cardiovascular: Rate/Rhythm: regular rate and regular rhythm Heart Sounds: normal S1 and normal S2; no gallop, no murmur and no cardiac rub Vessels: normal peripheral pulses; no JVD Gastrointestinal (Abdomen): normal bowel sounds, soft, nontender, no hepatosplenomegaly Musculoskeletal: no cyanosis or clubbing, extremities motor strength 5/5 Spine: thoracic spine normal to inspection and lumbar spine normal to inspection; no cervical spinal tenderness Skin: no rashes, warm and dry normal turgor and + wound (Heel wound with seropurulent drainage and foul odor) Neurologic: moves all extremities and awake; no focal motor deficits and no meningeal signs Psychiatric: A+Ox3, euthymic affect Orientation: cooperative Lymphatic: no cervical or axillary lymphadenopathy no inguinal lymphadenopathy Results & Data Vital Signs (Past 12 Hours) Vital Signs Temp Pulse Pulse Resp BP BP Pulse Ox 04/17/19 08:24 36.4 C L 60 16 117/72 96 04/17/19 07:31 36.6 C 60 18 102/67 96 Laboratory Results Short CBC 04/17/19 Range/Units 06:37 WBC 5.93 (4.8-10.8) K/uL Hgb 8.7 L (14.0-18.0) g/dL Hct 26.4 L (42-52) % Plt Count 123 L (130-400) K/uL BMP 04/17/19 06:37 Sodium 133 L Potassium 4.4 Chloride 103 Carbon Dioxide 24 BUN 37 H Creatinine 1.61 H Glucose 121 H Calcium 9.1 Cardiac Enzymes 04/17/19 Range/Units 06:37 Troponin I 0.027 (0-0.045) ng/ml Liver Function 04/17/19 Range/Units 06:37 Total Bilirubin 0.3 (0.2-1) mg/dl AST 25 (15-37) U/L ALT 29 (12-78) U/L Alkaline Phosphatase 64 (45-117) U/L Albumin 3.1 L (3.4-5.0) gm/dl Diagnostic Findings Microbiology 04/14/19 18:03 Blood Aerobic Blood Culture - Preliminary No growth in Aerobic bottle after 48 hours. 04/14/19 18:03 Blood Anaerobic Blood Culture - Preliminary No growth in Anaerobic bottle after 48 hours. 04/14/19 18:03 Blood Aerobic Blood Culture - Preliminary No growth in Aerobic bottle after 48 hours. 04/14/19 18:03 Blood Anaerobic Blood Culture - Final PG Care Time/CCT Total # of Minutes Spent Total Time Spent with Patient: Total time spent is greater than 50% in coordination of care (as documented) at patient's floor/unit and/or counseling patient: (1) Osteomyelitis of foot Laterality: left Osteomyelitis type: unspecified type Qualified Code(s): M86.9 - Osteomyelitis, unspecified
[2019-04-17] MEDS ORDERED: BISACODYL 5 MG TABEC PO ONE (14:36)
--- NOTE | 2019-04-17 14:40 | Hospitalist Progress Note ---
Date of Service April 17, 2019 Assessment & Plan (1) Osteomyelitis of foot: * Patient with chronic osteomyelitis of the foot. Recently with worsening pain and increased foul-smelling discharge. ESR is relatively unremarkable. CRP mildly elevated at 0.46. X-ray obtained of the left foot. Seems to have evidence of chronic osteomyelitis. Hx MRSA- contact precautions. * Duplex Arterial study from 02/02/19 of left leg with moderate arterial occlusive change of all vessel of proximal calf, occlusion of distal left peroneal artery * Venous Doppler bl LE negative for DVT * Continue Daptomycin * ID consultation - appreciate input * Dr Guillermo on consult- appreciate input -- patient seen by Dr. Heck today -- rec to follow up with plastics outpatient on Apr 26 vs transfer to tertiary care as inpatient * Culture with ZOSYN RESISTANT PSEUDOMONAS --> switched to CIPRO 04/16 -- per ID will need at least 2 weeks of treatment * Wound RN consult * Discussion with plastics. No intervention here -- per conversation with Dr. Zambrano in [place], no transfer at this time (2) Chronic systolic heart failure: * History of ischemic cardiomyopathy with reduced EF to 25 to 30% with an akinetic inferior wall and global hypokinesis. Patient appears to be slightly volume down on current exam. No respiratory distress * Continue home medications aspirin, atorvastatin, metoprolol, losartan. * Given patient resting comfortably flat without shortness of breath, but also with lower extremity edema, will hold further fluids * BNP >07349 * Lasix restarted * BP stable 117/72 * Re-evaluate volume status in AM (3) Metabolic encephalopathy: * Improved * Patient presenting from outpatient clinic with persistent confusion, hallucinations. Concern for infectious etiology. Presently he is afebrile, hemodynamically stable. No leukocytosis. Labs with stable normochromic normocytic anemia, sodium of 129, mildly elevated BUN of 44 and creatinine 2.03 which is near baseline. Episodic hypoglycemia present glucose = 55. Elevated TSH at 6.56. * Admit to medical floor-- ?infectious etiology vs constipation vs spinal abscess vs underlying dementia vs fluid overload from heart failure * Head CT without acute process * Lumbar Spine CT -- erosive endplate change at L2-L3 is similar to prior studies. Acute versus chronic osteomyelitis impossible to exclude. 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 Postoperative fluid collection is again suggested in the laminectomy bed. This is not well-visualized due to streak artifact and the sterility cannot be assessed by CT. Bilateral pleural effusions. * --> Ortho Spine consult- Dr. Morales- appreciate input -- no intervention at this time * CXR wthout cardiomegaly with mild pulmonary vascular congestion, small pleural effusions * Left ankle x-ray - diffuse soft tissue edema with no acute bony abnormality, skin clips and antibiotic beads project over heel. * KUB today with moderate increase in fecal load transverse and descending colon. Mild nonobstructive small bowel ileus. Stable postop changes of lumbar spine. * Bowel regimen as above * TSH 6.5 - elevated-- synthroid was increased to 50mcg yesterday * Gastric occult * Glucose checks * Aspiration precautions and fall precautions (4) Constipation: * Seems to be chronic secondary to immobility over the past year * DESPITE 4 large formed BM --? KUB today with moderate INCREASE in fecal load transverse and descending colon. Mild nonobstructive small bowel ileus. Stable postop changes of lumbar spine. * --> Dulcolax x 1, followed by Miralax Q2 x 4 (5) Back pain: * Patient with worsening low back pain of late. Has history of spinal infection/infected hardware requiring extraction and long-term antibiotic treatment. CT L-spine and antibiotics as above * ID consultation * Orthopedic surgery consultation appreciated-no intervention at this time (6) PAULA (acute kidney injury): * Creatinine elevated at 2.03 on admission * Originally given IVF in ER, lasix held * D/C'd IVF and continued to hold lasix until last evening * Given 1x dose to increase uo * Creatinine improved to 1.61 today. (7) PAD (peripheral artery disease): * Chronic. * Continue aspirin, Plavix, atorvastatin * Duplex study as above (8) Thyroid disorder: * Chronic. Elevated TSH today. Appears to have been elevated >5 since November. * Continue Synthroid 25 mcg -- increased to 50 mcg daily as TSH appears to be elevated >5.79 since November 2018. (9) Stage III chronic kidney disease: * Unclear baseline GFR * Not reportable on admission, creat 2.03 on admission * As above (10) Uncontrolled type 2 diabetes mellitus with neurologic complication, with long-term current use of insulin: * Patient with history of diabetes. Most recent A1c 6.2. No medications listed. * No medications listed. Per , he had previously been on insulin prior to back surgery and complications but had never been restarted. Unsure of reason why. * BSG checks * Continue home Neurontin for neuropathy (11) Coronary artery disease: * Stable. Patient denies chest pain. * Continue aspirin, Plavix, atorvastatin, metoprolol, losartan (12) HTN (hypertension): * Blood pressure well controlled- 103/62 - per records, patient with generally low BP * Continue home medications- lasix on hold, continue losartan and metoprolol * Continue to monitor (13) High cholesterol: * Chronic. Stable. * Continue atorvastatin (14) BPH (benign prostatic hyperplasia): * Patient with history of BPH. * Continue Flomax and Proscar * Monitor urine output (15) Anemia in chronic illness: * H/h decreased to 8.7/26.4 today. * FOCB * Gastric occult * No evidence of active bleed. * Continue to monitor (16) Vitamin D deficiency: * Chronic. * Holding vitamin D supplements while inpatient (17) DVT prophylaxis: * Lovenox Supervising Physician Co-Signing Physician Notes Attending Attestation: Chart reviewed, care plan d/w PA Daisha Boone. I agree w/ the husain components of her documentation. PAULA improving. Creatinine mildly improved today from 2.1 down to 1.6. To resume lasix today for CHF. Left heel osteomyelitis -- culture from left foot - pseudomonas, resistant to pip/tazo, ceftaz, aztreonam. Continue cipro. Ms Boone spoke with plastics at [facility] today - no indication for t ransfer at this time. I also spoke with Dr Schmid from plastics at [facility] yesterday evening - she personally does not perform the type of surgery he would need for his foot. Metabolic encephalopathy - likely 2nd to left heel infection. Slowly improving. Chronic systolic CHF - he has appeared total body overloaded but fortunately his O2 sats have been wnl since admission. We have been unable to diurese due to his PAULA. Now that PAULA is resolving will resume lasix. Hyponatremia - chronic, going back to mid-March. Likely related to PAULA, diuretic usage, etc. Na acceptable today. Ricky Cunningham MD Subjective Patient evaluated this morning at bedside. Patient more alert today. He had an episode of chest pain this morning. No alleviating or aggravating factors. Epigastric region with radiation to arm. Four formed bowel movements. Denies shortness of breath, fevers, chills, nausea at this time. Lengthy discussion with patient and this afternoon regarding plans moving forward; debridement vs oral antibiotic solely and re-evaluation. When the topic of possible amputation in the future if treatment is ineffective, patient became angered and stated "I don't want to talk about that" and then later said said "it's easy for you to say to cut it off because it's not your foot". Patient's appreciative off all information and expectations moving forward. Review of Systems Constitutional: no fever and no chills Eyes: no diplopia Ear, Nose, Mouth, Throat: no dizziness and no dysphagia Respiratory: no cough and no dyspnea Cardiovascular: + chest pain (earlier this morning) and + edema Gastrointestinal: + nausea; no abdominal pain and no vomiting Genitourinary: no dysuria and no hematuria Musculoskeletal: + back pain foot pain Neurologic: no headache(s) Physical Exam Constitutional: well nourished and + obese; no acute distress Eyes: PERRL, conjunctivae normal, anicteric sclerae Neck: trachea midline, no thyromegaly Respiratory: normal respiratory effort; no respiratory distress and no labored breathing Auscultation: lungs clear to auscultation bilaterally; no crackles and no wheezes Cardiovascular: Rate/Rhythm: regular rate and regular rhythm Heart Sounds: normal S1 and normal S2 Vessels: + JVD Extremities: + edema (2+ pitting edema b/l LE) Gastrointestinal (Abdomen): Inspection/Auscultation: + abdomen distended and + hypoactive bowel sounds Percussion/Palpation: + abdomen tender and + tympanic to percussion Musculoskeletal: no cyanosis or clubbing, extremities motor strength 5/5 Skin: erythema to bilateral groin Left heel- 8 cm ulcer on the posterior aspect heel. Dressing stapled in place. Without significant erythema, warmth. Neurologic: PERRL, EOMI, accommodation nl, no face palsy, no dysarthria Psychiatric: Orientation: alert and oriented x 3 Mood: + irritable mood Results & Data Vital Signs (Past 12 Hours) Vital Signs Temp Pulse Pulse Resp BP BP Pulse Ox 04/17/19 08:24 36.4 C L 60 16 117/72 96 04/17/19 07:31 36.6 C 60 18 102/67 96 Laboratory Results 04/17/19 04/17/19 04/17/19 Range/Units 12:08 10:53 07:59 WBC (4.8-10.8) K/uL RBC (4.7-6.1) M/uL Hgb (14.0-18.0) g/dL Hct (42-52) % MCV (80-100) fL MCH (25-34) pg MCHC (32-36) g/dL RDW Std Deviation (36.4-46.3) fL RDW Coeff of Norbert (11.5-14.5) % Plt Count (130-400) K/uL MPV (7.4-10.4) fL Sodium (136-145) mmol/L Potassium (3.5-5.1) mmol/L Chloride (98-107) mmol/L Carbon Dioxide (21-32) mmol/L Anion Gap (3-11) BUN (7-18) mg/dl Creatinine (0.6-1.4) mg/dl Est Cr Clr Drug Dosing ml/min Est GFR ( Amer) Est GFR (Non-Af Amer) BUN/Creatinine Ratio (10-20) Glucose (70-99) mg/dl POC Glucose 138 H 123 H (70-99) Calcium (8.5-10.1) mg/dl Magnesium (1.8-2.4) mg/dl Total Bilirubin (0.2-1) mg/dl AST (15-37) U/L ALT (12-78) U/L Alkaline Phosphatase (45-117) U/L Troponin I (0-0.045) ng/ml NT-Pro-B Natriuret Pep 59713 H (0-900) pg/ml Total Protein (6.4-8.2) gm/dl Albumin (3.4-5.0) gm/dl Globulin (2.5-4.0) gm/dl Albumin/Globulin Ratio (0.9-2) Vitamin B12 (211-911) pg/ml 04/17/19 04/17/19 04/17/19 Range/Units 06:37 06:37 06:37 WBC (4.8-10.8) K/uL RBC (4.7-6.1) M/uL Hgb (14.0-18.0) g/dL Hct (42-52) % MCV (80-100) fL MCH (25-34) pg MCHC (32-36) g/dL RDW Std Deviation (36.4-46.3) fL RDW Coeff of Norbert (11.5-14.5) % Plt Count (130-400) K/uL MPV (7.4-10.4) fL Sodium 133 L (136-145) mmol/L Potassium 4.4 (3.5-5.1) mmol/L Chloride 103 (98-107) mmol/L Carbon Dioxide 24 (21-32) mmol/L Anion Gap 7.0 (3-11) BUN 37 H (7-18) mg/dl Creatinine 1.61 H (0.6-1.4) mg/dl Est Cr Clr Drug Dosing 49.9 ml/min Est GFR ( Amer) 50.9 Est GFR (Non-Af Amer) 43.9 BUN/Creatinine Ratio 23.2 H (10-20) Glucose 121 H (70-99) mg/dl POC Glucose (70-99) Calcium 9.1 (8.5-10.1) mg/dl Magnesium 2.0 (1.8-2.4) mg/dl Total Bilirubin 0.3 (0.2-1) mg/dl AST 25 (15-37) U/L ALT 29 (12-78) U/L Alkaline Phosphatase 64 (45-117) U/L Troponin I 0.027 (0-0.045) ng/ml NT-Pro-B Natriuret Pep (0-900) pg/ml Total Protein 6.2 L (6.4-8.2) gm/dl Albumin 3.1 L (3.4-5.0) gm/dl Globulin 3.1 (2.5-4.0) gm/dl Albumin/Globulin Ratio 1.0 (0.9-2) Vitamin B12 514 (211-911) pg/ml 04/17/19 04/16/19 04/16/19 Range/Units 06:37 20:41 17:17 WBC 5.93 (4.8-10.8) K/uL RBC 2.86 L (4.7-6.1) M/uL Hgb 8.7 L (14.0-18.0) g/dL Hct 26.4 L (42-52) % MCV 92.3 (80-100) fL MCH 30.4 (25-34) pg MCHC 33.0 (32-36) g/dL RDW Std Deviation 52.7 H (36.4-46.3) fL RDW Coeff of Norbert 15.5 H (11.5-14.5) % Plt Count 123 L (130-400) K/uL MPV 9.3 (7.4-10.4) fL Sodium (136-145) mmol/L Potassium (3.5-5.1) mmol/L Chloride (98-107) mmol/L Carbon Dioxide (21-32) mmol/L Anion Gap (3-11) BUN (7-18) mg/dl Creatinine (0.6-1.4) mg/dl Est Cr Clr Drug Dosing ml/min Est GFR ( Amer) Est GFR (Non-Af Amer) BUN/Creatinine Ratio (10-20) Glucose (70-99) mg/dl POC Glucose 144 H 121 H (70-99) Calcium (8.5-10.1) mg/dl Magnesium (1.8-2.4) mg/dl Total Bilirubin (0.2-1) mg/dl AST (15-37) U/L ALT (12-78) U/L Alkaline Phosphatase (45-117) U/L Troponin I (0-0.045) ng/ml NT-Pro-B Natriuret Pep (0-900) pg/ml Total Protein (6.4-8.2) gm/dl Albumin (3.4-5.0) gm/dl Globulin (2.5-4.0) gm/dl Albumin/Globulin Ratio (0.9-2) Vitamin B12 (211-911) pg/ml PG Care Time/CCT Total # of Minutes Spent Total Time Spent with Patient: Total time spent is greater than 50% in coordination of care (as documented) at patient's floor/unit and/or counseling patient: Prolonged Care Time Prolonged Care Time: Yes Total Prolonged Care Time: 75 Spent 75 minutes today discussing potential transfer to [place], large amount of time at bedside multiple time to discuss prognosis. (1) BPH (benign prostatic hyperplasia) Lower urinary tract symptom presence: unspecified whether lower urinary tract symptoms present Qualified Code(s): N40.0 - Benign prostatic hyperplasia w ithout lower urinary tract symptoms (2) Coronary artery disease Associated angina: without angina Coronary Disease-Associated Artery/Lesion type: [place] artery [place] vs. transplanted heart: [place] heart Qualified Code(s): I25.10 - Atherosclerotic heart disease of [place] coronary artery without angina pectoris (3) Back pain Back pain laterality: unspecified Back pain location: low back pain Chronicity: chronic Sciatica presence: unspecified whether sciatica present Qualified Code(s): M54.5 - Low back pain; G89.29 - Other chronic pain (4) Osteomyelitis of foot Laterality: left Osteomyelitis type: unspecified type Qualified Code(s): M86.9 - Osteomyelitis, unspecified (5) HTN (hypertension) Hypertension type: essential hypertension Qualified Code(s): I10 - Essential (primary) hypertension
[2019-04-17] MEDS: POLYETHYLENE (MIRALAX) 17 GM PACK PO SCH ×4 (16:05→22:22)
[2019-04-17] MEDS: TAMSULOSIN HCL 0.4 MG CAP PO SCH (21:08)
[2019-04-17] MEDS: ENOXAPARIN INJ 40 MG/0.4 ML SYR SQ SCH (21:09)
[2019-04-17] MEDS: DAPTOmycin 400 MG in SYRINGE 0 ML IV SCH (21:33)
[2019-04-18] MEDS: LEVOTHYROXINE SODIUM 50 MCG TABLET PO SCH (06:09)
[2019-04-18 06:32] LABS: Hematocrit (blood only) 26.8 % (42-52); Mean Corpuscular Hemoglobin 31.1 pg (25-34); Mean Corpuscular Hgb Conc 33.6 g/dL (32-36); Mean Corpuscular Volume 92.7 fL (80-100); Mean Platelet Volume 9.6 fL (7.4-10.4); Platelet Count 136 K/uL (130-400); RDW Coefficient of Variation 15.6 % (11.5-14.5); RDW Standard Deviation 53.3 fL (36.4-46.3); Red Blood Count 2.89 M/uL (4.7-6.1); White Blood Count 5.54 K/uL (4.8-10.8)
[2019-04-18 07:08] LABS: Albumin Level 3.2 gm/dl (3.4-5.0); BUN Creatinine Ratio 25.6 (10-20); Creatinine Clr Calc Pharmacy 60.9 ml/min; Est GFR (African American) 64.7; Est GFR (Non-African American) 55.8; Potassium 4.6 mmol/L (3.5-5.1)
[2019-04-18 07:11] LABS: Bilirubin,Total 0.4 mg/dl (0.2-1); Globulin 3.3 gm/dl (2.5-4.0); Total Protein 6.5 gm/dl (6.4-8.2)
[2019-04-18] MEDS: INSULIN ASPART 100 UNITS/ML 3 ML PEN SC SCH ×4 (08:41→20:10)
[2019-04-18] MEDS: POLYETHYLENE (MIRALAX) 17 GM PACK PO PRN (08:43)
[2019-04-18] MEDS: FUROSEMIDE 20 MG TAB PO SCH (08:43)
[2019-04-18] MEDS: METOPROLOL SUCC 50MG EXT REL TAB PO SCH (08:44)
[2019-04-18] MEDS: LOSARTAN POTASSIUM 25 MG TAB PO SCH (08:44)
[2019-04-18] MEDS: MULTIVITAMIN TAB PO SCH (08:44)
[2019-04-18] MEDS: CIPROFLOXACIN 500 MG TAB PO SCH ×2 (08:44→20:00)
[2019-04-18] MEDS: FERROUS SULFATE 325 MG TAB PO SCH ×2 (08:44→17:47)
[2019-04-18] MEDS: FINASTERIDE 5 MG TAB PO SCH (08:44)
[2019-04-18] MEDS: ASCORBIC ACID 500 MG TAB PO SCH (08:44)
[2019-04-18] MEDS: GABAPENTIN 100 MG CAP PO SCH ×2 (08:44→20:01)
[2019-04-18] MEDS: PANTOprazole 40 MG TAB PO SCH ×2 (08:44→20:00)
[2019-04-18] MEDS: NYSTATIN OINT 15 GM TUBE EXT SCH (08:45)
[2019-04-18] MEDS: LIDOCAINE 5% 1 PATCH TD SCH (08:46)
--- NOTE | 2019-04-18 10:53 | Hospitalist Progress Note ---
Date of Service April 18, 2019 Assessment & Plan (1) Osteomyelitis of foot: * Patient with chronic osteomyelitis of the foot. Recently with worsening pain and increased foul-smelling discharge. ESR is relatively unremarkable. CRP mildly elevated at 0.46. X-ray obtained of the left foot. Seems to have evidence of chronic osteomyelitis. Hx MRSA- contact precautions. * Still has stapled dressing in place from previous * Duplex Arterial study from 02/02/19 of left leg with moderate arterial occlusive change of all vessel of proximal calf, occlusion of distal left peroneal artery. Had arterial angiogram 01/[address] Larose- no intervention necessary * Venous Doppler bl LE negative for DVT * Continue Daptomycin for MRSA coverage * ID consultation - appreciate input * Dr Guillermo on consult- appreciate input -- patient seen by Dr. Heck today -- rec to follow up with plastics outpatient on Apr 26 vs transfer to tertiary care as inpatient * Culture with ZOSYN RESISTANT PSEUDOMONAS --> switched to CIPRO 04/16 -- per ID will need at least 2 weeks of treatment --> WILL NEED US guided peripheral IV prior to discharge for dapto IV * Wound RN consult * Discussion with plastics. No intervention here -- per conversation with Dr. Zambrano in [place], no transfer at this time (2) Chronic systolic heart failure: * History of ischemic cardiomyopathy with reduced EF to 25 to 30% with an akinetic inferior wall and global hypokinesis. Patient appears to be slightly volume down on current exam. No respiratory distress * Continue home medications aspirin, atorvastatin, metoprolol, losartan * Given patient resting comfortably flat without shortness of breath, but also with lower extremity edema, will hold further fluids * BNP >29030 * Lasix restarted * BP stable 124/71 * Re-evaluate volume status in AM (3) Metabolic encephalopathy: * Improved * Patient presenting from outpatient clinic with persistent confusion, hallucinations. Concern for infectious etiology. Presently he is afebrile, hemodynamically stable. No leukocytosis. Labs with stable normochromic normocytic anemia, sodium of 129, mildly elevated BUN of 44 and creatinine 2.03 all of which are now improved. Episodic hypoglycemia which is now improved. Elevated TSH at 6.56. * Admit to medical floor--encephalopathy is secondary to infectious etiology and likely some contribution from constipation * Head CT without acute process * Lumbar Spine CT -- erosive endplate change at L2-L3 is similar to prior studies. Acute versus chronic osteomyelitis impossible to exclude. 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 Postoperative fluid collection is again suggested in the laminectomy bed. This is not well-visualized due to str eak artifact and the sterility cannot be assessed by CT. Bilateral pleural effusions. * --> Ortho Spine consult- Dr. Morales- appreciate input -- no intervention at this time * CXR wthout cardiomegaly with mild pulmonary vascular congestion, small pleural effusions * Left ankle x-ray - diffuse soft tissue edema with no acute bony abnormality, skin clips and antibiotic beads project over heel. * KUB today with moderate increase in fecal load transverse and descending colon. Mild nonobstructive small bowel ileus. Stable postop changes of lumbar spine. * Bowel regimen has been successful * TSH 6.5 - elevated-- synthroid was increased to 50mcg-we will need repeat thyroid function tests in 4 to 6 weeks * Glucose checks * Aspiration precautions and fall precautions (4) Constipation: * Improved * Seems to be chronic secondary to immobility over the past year * DESPITE 4 large formed BM --? KUB yesterday with moderate INCREASE in fecal l oad transverse and descending colon. Mild nonobstructive small bowel ileus. Stable postop changes of lumbar spine. --> Given dulcolax x 1 and miralax * Will continue bowel regimen to prevent further constipation (5) Back pain: * Patient with worsening low back pain of late. Has history of spinal infection/infected hardware requiring extraction and long-term antibiotic treatment. CT L-spine and antibiotics as above * ID consultation * Orthopedic surgery consultation appreciated-no intervention at this time (6) PAULA (acute kidney injury): * Creatinine elevated at 2.03 on admission * Originally given IVF in ER, lasix held * Lasix resumed, with creat improved to 1.32 today * Will continue to monitor (7) PAD (peripheral artery disease): * Chronic. * Was not receiving Plavix-we will restart * Holding atorvastatin while on daptomycin * Duplex study as above (8) Thyroid disorder: * Chronic. Elevated TSH. Appears to have been elevated >5 since November. * Continue Synthroid 25 mcg -- increased to 50 mcg daily as TSH appears to be elevated >5.79 since November 2018. * Needs follow-up thyroid function tests in 4 to 6 weeks (9) Stage III chronic kidney disease: * Baseline creatinine around 0.8 * Avoid nephrotoxins and renally dose medications when appropriate (10) Uncontrolled type 2 diabetes mellitus with neurologic complication, with long-term current use of insulin: * Patient with history of diabetes. Most recent A1c 6.2. No medications listed on home med rec. * No medications listed. Per , he had previously been on insulin prior to back surgery and complications but had never been restarted. Hemoglobin A1c is very well controlled and does not need any medications at home at this time * BSG checks * SSI * Continue home Neurontin for neuropathy * BSGs have been running 150-184 post prandially * May need to re-initiate insulin (11) Coronary artery disease: * Stable. Patient denies chest pain. * Continue aspirin, restart Plavix, continue metoprolol, losartan * Holding atorvastatin while on daptomycin (12) HTN (hypertension): * Blood pressure well controlled- 124/71 - per records, patient with generally low BP * Continue home medications- lasix, losartan and metoprolol * Continue to monitor (13) High cholesterol: * Chronic. Stable. * Holding atorvastatin as above (14) BPH (benign prostatic hyperplasia): * Patient with history of BPH. * Continue Flomax and Proscar * Monitor urine output-- patient had some urinary retention overnight requiring st cath, again today with bladder scan 400cc post void -- Urology consult placed, however patient was able to void prior to insertion of luna. PVR 200cc. - will continue to monitor --may need luna if retention persists (15) Anemia in chronic illness: * H/h decreased to 8.7/26.4 today. * FOCB * No evidence of active bleed. * Continue to monitor (16) Vitamin D deficiency: * Chronic. * Holding vitamin D supplements while inpatient (17) Chest pain: * Chest pain x 1 episode yesterday-- no recurrence overnight or today * EKG with ventricular pacing * Pacemaker interrogation-- [employer] spoke with Dr. Baca -- adjusted settings * Cardiology consult * Troponin <0.015 * Will continue to monitor (18) DVT prophylaxis: * Lovenox Dispo: possible d/c tomorrow after re-evaluation, US guided IV for Dapto abx Supervising Physician Co-Signing Physician Notes PA Supervision Note: I did not personally see or examine the patient today, but I verified all husain points of SIMEON Boone's assessment and plan with the following exceptions/additions: None Subjective Patient evaluated this morning. States he has been moving his bowels. Denies further complaints of abdominal pain. Denies fevers, chills at this time. Denies any recurrence of chest pain. Some urinary retention this morning. Denies feeling the need to void. He has had luna catheters in the past but would prefer to avoid that at this time. Patient would like to be discharged today, however discussion was had with regarding condition and need to set up IV antibiotics for the next several weeks. Review of Systems Constitutional: + fatigue; no fever and no chills Eyes: no diplopia and no eye pain Ear, Nose, Mouth, Throat: no sore throat and no dysphagia Respiratory: + dyspnea on exertion; no cough Cardiovascular: + edema; no chest pain and no syncope Gastrointestinal: no abdominal pain, no nausea and no vomiting Genitourinary: no dysuria and no difficulty urinating Musculoskeletal: + back pain Integumentary: + non-healing lesions (left heel) Psychiatric: no hallucinations Physical Exam Constitutional: well nourished and + obese; no acute distress Eyes: PERRL, conjunctivae normal, anicteric sclerae Neck: trachea midline, no thyromegaly Respiratory: normal respiratory effort; no respiratory distress and no labored breathing Auscultation: lungs clear to auscultation bilaterally and + diminished lung sounds (bilateral bases); no crackles, no rhonchi and no wheezes Cardiovascular: Rate/Rhythm: regular rate and regular rhythm Heart Sounds: normal S1 and normal S2 Extremities: + edema (2+ pitting edema b/l LE) Gastrointestinal (Abdomen): Percussion/Palpation: + tympanic to percussion; no hepatosplenomegaly Skin: approx 8cm ulcer to left heel- jonathan in place- replaced with nursing during examination -- foul, green drainage on bandage without streaking or erythema of surrounding tissue Neurologic: PERRL, EOMI, accommodation nl, no face palsy, no dysarthria Psychiatric: Orientation: alert Mood: + irritable mood Lymphatic: no cervical or axillary lymphadenopathy Results & Data Vital Signs (Past 12 Hours) Vital Signs Temp Pulse Resp BP BP Pulse Ox 04/18/19 07:12 36.6 C 63 16 134/79 96 04/17/19 23:32 36.5 C 62 16 125/77 99 Laboratory Results 04/18/19 04/18/19 04/18/19 Range/Units 08:05 06:14 06:14 WBC 5.54 (4.8-10.8) K/uL RBC 2.89 L (4.7-6.1) M/uL Hgb 9.0 L (14.0-18.0) g/dL Hct 26.8 L (42-52) % MCV 92.7 (80-100) fL MCH 31.1 (25-34) pg MCHC 33.6 (32-36) g/dL RDW Std Deviation 53.3 H (36.4-46.3) fL RDW Coeff of Norbert 15.6 H (11.5-14.5) % Plt Count 136 (130-400) K/uL MPV 9.6 (7.4-10.4) fL Sodium 133 L (136-145) mmol/L Potassium 4.6 (3.5-5.1) mmol/L Chloride 102 (98-107) mmol/L Carbon Dioxide 24 (21-32) mmol/L Anion Gap 7.0 (3-11) BUN 34 H (7-18) mg/dl Creatinine 1.32 (0.6-1.4) mg/dl Est Cr Clr Drug Dosing 60.9 ml/min Est GFR ( Amer) 64.7 Est GFR (Non-Af Amer) 55.8 BUN/Creatinine Ratio 25.6 H (10-20) Glucose 138 H (70-99) mg/dl POC Glucose 151 H (70-99) Calcium 9.0 (8.5-10.1) mg/dl Total Bilirubin 0.4 (0.2-1) mg/dl AST 30 (15-37) U/L ALT 43 (12-78) U/L Alkaline Phosphatase 65 (45-117) U/L Troponin I (0-0.045) ng/ml NT-Pro-B Natriuret Pep (0-900) pg/ml Total Protein 6.5 (6.4-8.2) gm/dl Albumin 3.2 L (3.4-5.0) gm/dl Globulin 3.3 (2.5-4.0) gm/dl Albumin/Globulin Ratio 1.0 (0.9-2) 04/17/19 04/17/19 04/17/19 Range/Units 20:40 17:32 17:24 WBC (4.8-10.8) K/uL RBC (4.7-6.1) M/uL Hgb (14.0-18.0) g/dL Hct (42-52) % MCV (80-100) fL MCH (25-34) pg MCHC (32-36) g/dL RDW Std Deviation (36.4-46.3) fL RDW Coeff of Norbert (11.5-14.5) % Plt Count (130-400) K/uL MPV (7.4-10.4) fL Sodium (136-145) mmol/L Potassium (3.5-5.1) mmol/L Chloride (98-107) mmol/L Carbon Dioxide (21-32) mmol/L Anion Gap (3-11) BUN (7-18) mg/dl Creatinine (0.6-1.4) mg/dl Est Cr Clr Drug Dosing ml/min Est GFR ( Amer) Est GFR (Non-Af Amer) BUN/Creatinine Ratio (10-20) Glucose (70-99) mg/dl POC Glucose 165 H 142 H (70-99) Calcium (8.5-10.1) mg/dl Total Bilirubin (0.2-1) mg/dl AST (15-37) U/L ALT (12-78) U/L Alkaline Phosphatase (45-117) U/L Troponin I < 0.015 (0-0.045) ng/ml NT-Pro-B Natriuret Pep (0-900) pg/ml Total Protein (6.4-8.2) gm/dl Albumin (3.4-5.0) gm/dl Globulin (2.5-4.0) gm/dl Albumin/Globulin Ratio (0.9-2) 04/17/19 04/17/19 04/17/19 Range/Units 12:08 10:53 07:59 WBC (4.8-10.8) K/uL RBC (4.7-6.1) M/uL Hgb (14.0-18.0) g/dL Hct (42-52) % MCV (80-100) fL MCH (25-34) pg MCHC (32-36) g/dL RDW Std Deviation (36.4-46.3) fL RDW Coeff of Norbert (11.5-14.5) % Plt Count (130-400) K/uL MPV (7.4-10.4) fL Sodium (136-145) mmol/L Potassium (3.5-5.1) mmol/L Chloride (98-107) mmol/L Carbon Dioxide (21-32) mmol/L Anion Gap (3-11) BUN (7-18) mg/dl Creatinine (0.6-1.4) mg/dl Est Cr Clr Drug Dosing ml/min Est GFR ( Amer) Est GFR (Non-Af Amer) BUN/Creatinine Ratio (10-20) Glucose (70-99) mg/dl POC Glucose 138 H 123 H (70-99) Calcium (8.5-10.1) mg/dl Total Bilirubin (0.2-1) mg/dl AST (15-37) U/L ALT (12-78) U/L Alkaline Phosphatase (45-117) U/L Troponin I (0-0.045) ng/ml NT-Pro-B Natriuret Pep 47535 H (0-900) pg/ml Total Protein (6.4-8.2) gm/dl Albumin (3.4-5.0) gm/dl Globulin (2.5-4.0) gm/dl Albumin/Globulin Ratio (0.9-2) PG Care Time/CCT Total # of Minutes Spent Total Time Spent with Patient: Total time spent is greater than 50% in coordination of care (as documented) at patient's floor/unit and/or counseling patient: (1) BPH (benign prostatic hyperplasia) Lower urinary tract symptom presence: unspecified whether lower urinary tract symptoms present Qualified Code(s): N40.0 - Benign prostatic hyperplasia without lower urinary tract symptoms (2) Coronary artery disease Associated angina: without angina Coronary Disease-Associated Artery/Lesion type: [place] artery [place] vs. transplanted heart: [place] heart Qualified Code(s): I25.10 - Atherosclerotic heart disease of [place] coronary artery without angina pectoris (3) Back pain Back pain laterality: unspecified Back pain location: low back pain Chronicity: chronic Sciatica presence: unspecified whether sciatica present Qualified Code(s): M54.5 - Low back pain; G89.29 - Other chronic pain (4) Osteomyelitis of foot Laterality: left Osteomyelitis type: unspecified type Qualified Code(s): M86.9 - Osteomyelitis, unspecified (5) Chest pain Chest pain type: unspecified Qualified Code(s): R07.9 - Chest pain, unspecified (6) HTN (hypertension) Hypertension type: essential hypertension Qualified Code(s): I10 - Essential (primary) hypertension
[2019-04-18] MEDS: ASPIRIN 81 MG ECTAB PO SCH (18:52)
[2019-04-18] MEDS: DAPTOmycin 400 MG in SYRINGE 0 ML IV SCH (19:54)
[2019-04-18] MEDS: HYDROCODONE/ACETAMOPHEN 5/325MG TAB PO PRN (19:54)
[2019-04-18] MEDS: ENOXAPARIN INJ 40 MG/0.4 ML SYR SQ SCH (19:59)
[2019-04-18] MEDS: TAMSULOSIN HCL 0.4 MG CAP PO SCH (20:01)
[2019-04-18] MEDS: TRAMADOL HCL 50 MG TABLET PO PRN (21:20)
[2019-04-19 05:47] LABS: Hematocrit (blood only) 26.1 % (42-52); Hemoglobin 8.5 g/dL (14.0-18.0); Mean Corpuscular Hemoglobin 30.4 pg (25-34); Mean Corpuscular Hgb Conc 32.6 g/dL (32-36); Mean Corpuscular Volume 93.2 fL (80-100); Mean Platelet Volume 9.9 fL (7.4-10.4); Platelet Count 136 K/uL (130-400); RDW Coefficient of Variation 15.9 % (11.5-14.5); White Blood Count 5.73 K/uL (4.8-10.8)
[2019-04-19] MEDS: LEVOTHYROXINE SODIUM 50 MCG TABLET PO SCH (06:11)
[2019-04-19 06:17] LABS: Calcium 8.9 mg/dl (8.5-10.1); Creatinine Clr Calc Pharmacy 69.9 ml/min; Est GFR (African American) 76.4; Est GFR (Non-African American) 65.9; Magnesium 1.8 mg/dl (1.8-2.4); Potassium 4.3 mmol/L (3.5-5.1)
[2019-04-19] MEDS ORDERED: FUROSEMIDE 20 MG TAB PO SCH (09:00)
[2019-04-19] MEDS: METOPROLOL SUCC 50MG EXT REL TAB PO SCH (09:29)
[2019-04-19] MEDS: CIPROFLOXACIN 500 MG TAB PO SCH ×2 (09:29→21:54)
[2019-04-19] MEDS: ASCORBIC ACID 500 MG TAB PO SCH (09:29)
[2019-04-19] MEDS: GABAPENTIN 100 MG CAP PO SCH ×2 (09:29→21:53)
[2019-04-19] MEDS: ASPIRIN 81 MG ECTAB PO SCH (09:29)
[2019-04-19] MEDS: MULTIVITAMIN TAB PO SCH (09:29)
[2019-04-19] MEDS: FERROUS SULFATE 325 MG TAB PO SCH ×2 (09:30→16:22)
[2019-04-19] MEDS: FUROSEMIDE 20 MG TAB PO SCH (09:30)
[2019-04-19] MEDS: LIDOCAINE 5% 1 PATCH TD SCH (09:31)
[2019-04-19] MEDS: LOSARTAN POTASSIUM 25 MG TAB PO SCH (09:31)
[2019-04-19] MEDS: NYSTATIN OINT 15 GM TUBE EXT SCH (09:32)
[2019-04-19] MEDS: NYSTATIN POWDER 15GM BTL EXT PRN (09:32)
--- NOTE | 2019-04-19 09:32 | Urology Consultation ---
Date of Consultation April 19, 2019 Assessment & Plan (1) BPH (benign prostatic hyperplasia): BPH w/ LUTS on max med therapy cont for now avoid catheters unless symptomatic, PVRs >500, or creatinine starts to rise (has been progressively improving - currently at 1.15) given that he is voiding adequately now, no other changes in therapy please call us if any changes arise History of Present Illness Attending Physician: Candi Dexter MD 68y/o male with numerous comorbid conditions and acute issues who has had intermittent difficulty with urination - on tamsulosin and finasteride at baseline limited mobility currently secondary to other health issues increasing PVR (>400cc yesterday) fortunately, he was subsequently able to void and PVRs have been around 200cc since that time feels he is emptying well enough - biggest limit is attempting to void while in a supine position Allergies Allergy/AdvReac Type Severity Reaction Status Date / Time lorazepam [From Ativan] AdvReac Confusion Verified 04/14/19 20:18 Home Medications Home Medications Medication Instructions Recorded Confirmed Type aspirin [Aspir-81] 81 mg PO QAM 12/01/18 04/14/19 History cholecalciferol (vitamin D3) 2,000 unit PO DAILY 12/01/18 04/14/19 History [Vitamin D3] finasteride [Proscar] 5 mg PO QAM 12/01/18 04/14/19 History metoprolol succinate [Toprol XL] 50 mg PO DAILY 12/01/18 04/14/19 History lidocaine 2 patch TRANSDERMAL DIRECTED 01/14/19 04/14/19 History Therems-M 1 tab PO DAILY 03/23/19 04/14/19 History ascorbic acid (vitamin C) [Vitamin 500 mg PO QAM 03/23/19 04/14/19 History C] atorvastatin 40 mg PO QPM 03/23/19 04/14/19 History hydrocodone-acetaminophen [Shannon] 1 tab PO Q4H PRN 03/23/19 04/14/19 History melatonin 5 mg PO HS 03/23/19 04/14/19 History nystatin 1 applic EXT DAILY 03/23/19 04/14/19 History oxycodone 5 mg PO TID 03/23/19 04/14/19 History ferrous sulfate 325 mg (65 mg 325 mg PO BIDM #90 tab 03/30/19 04/14/19 Rx iron) tablet,delayed release tamsulosin 0.4 mg capsule 0.4 mg PO HS #90 cap 03/30/19 04/14/19 Rx cefdinir 300 mg capsule 300 mg PO BID 14 Days #28 cap 04/01/19 04/14/19 Rx sulfamethoxazole 800 1 tab PO BID 14 Days #28 tab 04/01/19 04/14/19 Rx mg-trimethoprim 160 mg tablet gabapentin [Neurontin] 100 mg PO BID 04/10/19 04/14/19 History levothyroxine [Synthroid] 25 mcg PO QAM 04/10/19 04/14/19 History losartan [Cozaar] 25 mg PO QAM 04/10/19 04/14/19 History pantoprazole [Protonix] 40 mg PO BID 04/10/19 04/14/19 History tramadol [Ultram] 50 mg PO Q4H PRN 04/10/19 04/14/19 History clopidogrel [Plavix] 75 mg PO QAM 04/12/19 04/14/19 History furosemide 20 mg PO QAM 04/12/19 04/14/19 History Patient History Medical History Vitamin D deficiency (Acute) Thyroid disorder (Acute) Spinal stenosis (Acute) Restless legs syndrome (Acute) Diverticulosis (Acute) Disc degeneration, lumbar (Acute) Diabetic retinopathy (Acute) Diabetic peripheral neuropathy (Acute) Depression (Acute) Carotid artery stenosis (Acute) Anxiety (Acute) Ischemic cardiomyopathy EF WNL 11/2017 EF this year consistantly 25-30% Full dentures (Acute) HTN (hypertension) (Acute) Abscess in epidural space of lumbar spine Anemia CAD (coronary artery disease) CABG 2002 or so, severe multivessel disease - [place] around time of paraspinal abscess earlier this year - medical mgmt of his CAD thus far CHF (congestive heart failure) [employer] 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 Admitted [facility] 10/18/11 for onset of incapacitating cervical myelopathy. Spinal tap showed T[employer] TR[employer] Lyme disease, MRI showed severe spinal cord compression at C3-4 with myelomalacia and intramedullary mass. Pt had c-spine surgery, subsequent prolonged hospital admission, complicated post-op course. Chronic kidney disease, stage III (moderate) Chronic sinusitis Dysphagia History of femoral angiogram adequate blood flow to foot History of non-ST elevation myocardial infarction (NSTEMI) ICD (implantable cardioverter-defibrillator) in place Sudden cardiac Post-op 2011 [facility]. Now has ICD. Surgical History History of esophagogastroduodenoscopy (EGD) History of colonoscopy History of cardiac cath 2011 AT [facility] - UNSURE IF HE HAS STENTS. History of tracheostomy Hx of transurethral resection of prostate History of cataract extraction with lens replacement Hx of tonsillectomy (Acute) H/O cervical spine surgery (Acute) ACDI C3-4, C7 corpectomy, removal of C7 intramedullary mass. History of lumbar spinal fusion (Acute) S/P triple vessel bypass (Acute) [facility] History of incision and drainage Lumbar spine on 08/11; complicated by difficult intubation with only #6.5 ETT able to be placed and patient kept intubated post op History of lumbar surgery 09/10/18 Glidescope 3 okay visualization but difficulty passing ETT, unable to pass 8.0, able to pass 7.0 with some difficulty Family History Mother , age 68 of COPD and respiratory issues COPD (chronic obstructive pulmonary disease) Father , in his 40s of an [place] Myocardial infarction Other Diabetes Hypertension No pertinent family history Social History Preferred Language: Telugu Communication Ability: Effective Visual Impairment: No Limitations Hearing Ability: Normal Manager In Home Required: No Beliefs That Will Affect Care: None marital status: Current Living Situation: Spouse Current Living Situation Comment: lives at [facility] 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al status: retired and disabled 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: 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 [employer] Other Information That Helps Us Care for You: No Feels Safe at Home: Yes Safety Concerns: Feels Safe At This Time Smoking Status: Never smoker Tobacco Type: smokeless tobacco ; Second Hand Exposure: No ; Hx Alcohol Use: No Hx Substance Use: No Review of Systems Constitutional: no fever, no chills and no fatigue Eyes: no worsening vision Ear, Nose, Mouth, Throat: no facial pain and no pain with swallowing Respiratory: no cough and no dyspnea Cardiovascular: no chest pain and no palpitations Gastrointestinal: no abdominal pain, no nausea and no vomiting Genitourinary: + urinary hesitancy and + decreased urination Musculoskeletal: + joint pain, + limited range of motion and + body aches Integumentary: no rash and no urticaria Neurologic: no gait abnormality and no unsteadiness Psychiatric: no behavioral changes and no depression Endocrine: no fatigue Physical Exam Physical Exam: AFVSS in bed - comfortable appearing appropriately interactive - although not all questions were answered completely appropriately no resp distress RRR abd soft, non-tender no genital masses moving all extremities - but with some limits mild edema no rash urine clear (urinal) Results & Data Vital Signs (Past 12 Hours) Vital Signs Temp Pulse Resp BP BP Pulse Ox 04/19/19 07:02 37.0 C 70 16 116/71 97 04/18/19 23:19 36.7 C 70 16 119/69 97 PG Care Time/CCT Total # of Minutes Spent Total Time Spent with Patient: Total time spent is greater than 50% in coordination of care (as documented) at patient's floor/unit and/or counseling patient: (1) BPH (benign prostatic hyperplasia) Lower urinary tract symptom presence: unspecified whether lower urinary tract symptoms present Qualified Code(s): N40.0 - Benign prostatic hyperplasia without lower urinary tract symptoms
[2019-04-19] MEDS: CLOPIDOGREL BISULFATE 75 MG TAB PO SCH (09:33)
[2019-04-19] MEDS: PANTOprazole 40 MG TAB PO SCH ×2 (09:33→21:53)
[2019-04-19] MEDS: FINASTERIDE 5 MG TAB PO SCH (09:33)
[2019-04-19] MEDS: INSULIN ASPART 100 UNITS/ML 3 ML PEN SC SCH ×4 (09:34→21:57)
[2019-04-19] MEDS ORDERED: QUETIAPINE FUMARATE 25 MG TABLET PO PRN (12:11)
--- NOTE | 2019-04-19 14:32 | Hospitalist Progress Note ---
Date of Service April 19, 2019 Assessment & Plan (1) Osteomyelitis of foot: * Patient with chronic osteomyelitis of the foot. Recently with worsening pain and increased foul-smelling discharge. X-ray obtained of the left foot. Evidence of chronic osteomyelitis. Hx MRSA- contact precautions. * Still has stapled dressing in place from previous surgery January [address] Guillermo * Ortho consult-- rec to follow up with plastics outpatient this week vs transfer to tertiary care as inpatient --> will continue to treat and have follow with plastics after discussion with patient and (Dr. Zambrano, who I spoke with on Saturday - no need to transfer at this time- follow up as scheduled) * Duplex Arterial study from 02/02/19 of left leg with moderate arterial occlusive change of all vessel of proximal calf, occlusion of distal left peroneal artery. Had arterial angiogram 01/[address] Larose- no intervention necessary * Venous Doppler bl LE negative for DVT * continue pain control * Continue Daptomycin for MRSA coverage -- will require weekly CPK while on Dapto. Should also have weekly CBC, ESR, CRP, CMP * Infectious Disease on consult -- will continue dapto/cipro as PSEUDOMONAS on culture resistant to Zosyn --> per ID will need at least 2 weeks of treatment --> WILL NEED US guided peripheral IV prior to discharge for dapto IV * Recommend ID follow up after discharge (2) Chronic systolic heart failure: * History of ischemic cardiomyopathy with reduced EF to 25 to 30% with an akinetic inferior wall and global hypokinesis. Volume status improved on current exam, but remains with edema. No respiratory distress * Continue home Toprol XL 50mg daily * BNP >51441 on 04/17 * Cardiology consult -- will initiate Entresto this morning, addition of Bumex --> BP currently stable at 116/71 (patient chronically with low BP) --> WILL NEED TO MONITOR FOR HYPOTENSION * stopped losartan and home lasix (3) Ischemic cardiomyopathy: * Severe ischemic cardiomyopathy with an EF 25%.-- denies CP at this time * Continue aspirin, Plavix, metoprolol * D/Cd losartan and lasix as above * Start Entresto and Bumex as above * Holding atorvastatin while on daptomycin as above (4) Coronary artery disease: * S/P CABG x 3 in 2002- DELATORRE to LAD, FERNANDO to marginal, radial graft to OM * S/P defibrillator, RBBB * Cardiac catheterization Jul 2018 -- subtotal occluded ramus intermediate branch, total occlusion of the mid LAD, 80% proximal OM2 disease, severe mid RCA disease 95% and 90%. * Continue ASA, Plavix, Metoprolol succ 50mg * Losartan discontinued and Entresto initiated evening 04/19 -- monitor for hypotension * Atorvastatin on hold while inpatient and on Dapto (5) Constipation: * Improved * Seems to be chronic secondary to immobility over the past year * DESPITE 4 large formed BM --? KUB 04/18 with moderate INCREASE in fecal load transverse and descending colon. Mild nonobstructive small bowel ileus. Stable postop changes of lumbar spine. --> Given dulcolax x 1 and miralax x4. * Will continue bowel regimen to prevent further constipation (6) PAULA (acute kidney injury): * Creatinine elevated at 2.03 on admission. Baseline < 0.8 * Creat improved to 1.15 today * Will continue to monitor (7) Metabolic encephalopathy: * Improved -- likely secondary to left heel infection * Patient presenting from outpatient clinic with persistent confusion, hallucinations. Concern for infectious etiology. Presently he is afebrile, hemodynamically stable. No leukocytosis. Labs with stable normochromic normocytic anemia, sodium of 129, mildly elevated BUN of 44 and creatinine 2.03 all of which are now improved. Episodic hypoglycemia which is now improved. Elevated TSH at 6.56. * encephalopathy is secondary to infectious etiology and likely some contribution from constipation * Head CT without acute process * Lumbar Spine CT -- erosive endplate change at L2-L3 is similar to prior studies. Acute versus chronic osteomyelitis impossible to exclude. 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 Postoperative fluid collection is again suggested in the laminectomy bed. This is not well-visualized due to streak artifact and the sterility cannot be assessed by CT. Bilateral pleural effusions. * --> Ortho Spine consult- Dr. Morales- appreciate input -- no intervention at this time * CXR without cardiomegaly, but with mild pulmonary vascular congestion, small pleural effusions * Left ankle x-ray - diffuse soft tissue edema with no acute bony abnormality, skin clips and antibiotic beads project over heel. * KUB with moderate increase in fecal load transverse and descending colon. Mild nonobstructive small bowel ileus. Stable postop changes of lumbar spine. * Bowel regimen has been successful * TSH 6.5 - elevated-- synthroid was increased to 50mcg-we will need repeat thyroid function tests in 4 to 6 weeks * Glucose checks * Aspiration precautions and fall precautions (8) Thyroid disorder: * Chronic. Elevated TSH. Appears to have been elevated >5 since November. * Continue Synthroid 25 mcg -- increased to 50 mcg daily as TSH appears to be elevated >5.79 since November 2018. * Needs follow-up thyroid function tests in 4 to 6 weeks (9) Stage III chronic kidney disease: * Baseline creatinine around 0.8 * Avoid nephrotoxins and renally dose medications when appropriate (10) HTN (hypertension): * Blood pressure well controlled- 116/71 - per records, patient with generally low BP * Continue metoprolol * D/C lasix and losartan -- switched to bumex and entresto -- WILL NEED TO MONITOR FOR HYPOTENSION * Continue to monitor (11) Anemia in chronic illness: * H/h decreased to 8.5/26.1 today. MCV normocytic * recent B12 level normal, but no iron studies or folate done recently * check fecal occult blood of stool, check iron studies, folate level in AM * No evidence of active bleed. * Continue to monitor and transfuse for hgb<8 (12) High cholesterol: * Chronic. Stable. * Holding atorvastatin while on Dapto (13) BPH (benign prostatic hyperplasia): * Patient with history of BPH. * Continue Flomax and Proscar * Monitor urine output-- patient had some urinary retention overnight requiring st cath, again today with bladder scan 400cc post void * Urology on consult-- avoid luna unless PVR > 500 * Continue to monitor (14) Chest pain: * Resolved * Chest pain x 1 episode on 04/18 -- no recurrence since then * EKG with ventricular pacing * Pacemaker interrogation-- [employer] spoke with Dr. Baca -- adjusted settings * Cardiology consult -- appreciate rec-- medication adjustments as above * Troponin <0.015 * Will continue to monitor (15) Uncontrolled type 2 diabetes mellitus with neurologic complication, with long-term current use of insulin: * Patient with history of diabetes. Most recent A1c 6.2. No medications listed on home med rec. * No medications listed. Per , he had previously been on insulin prior to back surgery and complications but had never been restarted. Hemoglobin A1c is very well controlled and does not need any medications at home at this time * BSG checks * SSI * Continue home Neurontin for neuropathy (16) PAD (peripheral artery disease): * Chronic. * Was not receiving Plavix-restarted * Holding atorvastatin while on daptomycin * Duplex study as above (17) Back pain: * Patient with worsening low back pain of late. Has history of spinal infection/infected hardware requiring extraction and long-term antibiotic t reatment. CT L-spine and antibiotics as above * ID consultation * Orthopedic surgery consultation appreciated-no intervention at this time * continue home pain meds (18) DVT prophylaxis: * Lovenox Dispo: possible d/c tomorrow -- > will need US guided vascular access for prolonged treatment vs PICC line -- CM to obtain script to fax to [facility] and [facility] on Saturday as benefits were unable to be checked with insurance until Saturday Supervising Physician Co-Signing Physician Notes PA Supervision Note: I did not personally see or examine the patient today, but I verified all husain points of SIMEON Boone's assessment and plan with the following exceptions/additions: None Subjective Patient evaluated up to chair. Patient much more alert today. Patient states he is feeling better. Denies any further chest pain, shortness of breath. He states he had a bowel movement this morning, large brown and formed. Discussion had with patient regarding concerns with insulin moving forward. He states he had been on it prior to surgery, but after discussion with other current conditions and pre-diabetic A1c level, patient is agreeable to recheck in 3 months to see if he will need to re-initiate therapy. Patient much more pleased with progression of treatment and agreeable to wait until authorization for IV antibiotics prior to discharge. Review of Systems Constitutional: no fever and no chills Eyes: + diplopia Ear, Nose, Mouth, Throat: no dizziness, no sore throat and no dysphagia Respiratory: + dyspnea and + dyspnea on exertion; no cough Cardiovascular: + edema; no chest pain, no palpitations and no syncope Gastrointestinal: + constipation; no abdominal pain, no nausea and no vomiting Genitourinary: no dysuria and no hematuria Musculoskeletal: + back pain (lumbar region) left heel pain Physical Exam Constitutional: well nourished and + obese; no acute distress Eyes: PERRL, conjunctivae normal, anicteric sclerae Neck: trachea midline, no thyromegaly Respiratory: normal respiratory effort; no respiratory distress and no cough Auscultation: no rales, no rhonchi and no pleural rub Diminished BS bilateral bases Cardiovascular: Rate/Rhythm: regular rate and regular rhythm Heart Sounds: normal S1, normal S2 and + gallop (+S3) Vessels: + JVD Extremities: + edema (2+ pitting edema b/l LE) Gastrointestinal (Abdomen): Inspection/Auscultation: + abdomen distended Percussion/Palpation: + tympanic to percussion; no hepatosplenomegaly Skin: left heel ulcer, approx 8cm in size. light green drainage. Optifoam in place. Without evidence of streaking. Minimal erythema bilateral groin Psychiatric: Orientation: alert and cooperative Lymphatic: no cervical or axillary lymphadenopathy Results & Data Vital Signs (Past 12 Hours) Vital Signs Temp Pulse Resp BP Pulse Ox 04/19/19 07:02 37.0 C 70 16 116/71 97 Laboratory Results 04/19/19 04/19/19 04/19/19 Range/Units 12:04 08:22 05:15 WBC (4.8-10.8) K/uL RBC (4.7-6.1) M/uL Hgb (14.0-18.0) g/dL Hct (42-52) % MCV (80-100) fL MCH (25-34) pg MCHC (32-36) g/dL RDW Std Deviation (36.4-46.3) fL RDW Coeff of Norbert (11.5-14.5) % Plt Count (130-400) K/uL MPV (7.4-10.4) fL Sodium 135 L (136-145) mmol/L Potassium 4.3 (3.5-5.1) mmol/L Chloride 103 (98-107) mmol/L Carbon Dioxide 24 (21-32) mmol/L Anion Gap 8.0 (3-11) BUN 35 H (7-18) mg/dl Creatinine 1.15 (0.6-1.4) mg/dl Est Cr Clr Drug Dosing 69.9 ml/min Est GFR ( Amer) 76.4 Est GFR (Non-Af Amer) 65.9 BUN/Creatinine Ratio 30.0 H (10-20) Glucose 104 H (70-99) mg/dl POC Glucose 137 H 109 H (70-99) Calcium 8.9 (8.5-10.1) mg/dl Magnesium 1.8 (1.8-2.4) mg/dl Vitamin B1 (8-30) nmol/L 04/19/19 04/18/19 04/18/19 Range/Units 05:15 20:08 17:10 WBC 5.73 (4.8-10.8) K/uL RBC 2.80 L (4.7-6.1) M/uL Hgb 8.5 L (14.0-18.0) g/dL Hct 26.1 L (42-52) % MCV 93.2 (80-100) fL MCH 30.4 (25-34) pg MCHC 32.6 (32-36) g/dL RDW Std Deviation 54.0 H (36.4-46.3) fL RDW Coeff of Norbert 15.9 H (11.5-14.5) % Plt Count 136 (130-400) K/uL MPV 9.9 (7.4-10.4) fL Sodium (136-145) mmol/L Potassium (3.5-5.1) mmol/L Chloride (98-107) mmol/L Carbon Dioxide (21-32) mmol/L Anion Gap (3-11) BUN (7-18) mg/dl Creatinine (0.6-1.4) mg/dl Est Cr Clr Drug Dosing ml/min Est GFR ( Amer) Est GFR (Non-Af Amer) BUN/Creatinine Ratio (10-20) Glucose (70-99) mg/dl POC Glucose 157 H 167 H (70-99) Calcium (8.5-10.1) mg/dl Magnesium (1.8-2.4) mg/dl Vitamin B1 (8-30) nmol/L 04/15/19 Range/Units 10:29 WBC (4.8-10.8) K/uL RBC (4.7-6.1) M/uL Hgb (14.0-18.0) g/dL Hct (42-52) % MCV (80-100) fL MCH (25-34) pg MCHC (32-36) g/dL RDW Std Deviation (36.4-46.3) fL RDW Coeff of Norbert (11.5-14.5) % Plt Count (130-400) K/uL MPV (7.4-10.4) fL Sodium (136-145) mmol/L Potassium (3.5-5.1) mmol/L Chloride (98-107) mmol/L Carbon Dioxide (21-32) mmol/L Anion Gap (3-11) BUN (7-18) mg/dl Creatinine (0.6-1.4) mg/dl Est Cr Clr Drug Dosing ml/min Est GFR ( Amer) Est GFR (Non-Af Amer) BUN/Creatinine Ratio (10-20) Glucose (70-99) mg/dl POC Glucose (70-99) Calcium (8.5-10.1) mg/dl Magnesium (1.8-2.4) mg/dl Vitamin B1 12 (8-30) nmol/L PG Care Time/CCT Total # of Minutes Spent Total Time Spent with Patient: Total time spent is greater than 50% in coordination of care (as documented) at patient's floor/unit and/or counseling patient: (1) BPH (benign prostatic hyperplasia) Lower urinary tract symptom presence: unspecified whether lower urinary tract symptoms present Qualified Code(s): N40.0 - Benign prostatic hyperplasia without lower urinary tract symptoms (2) Coronary artery disease Associated angina: without angina Coronary Disease-Associated Artery/Lesion type: [place] artery [place] vs. transplanted heart: [place] heart Qualified Code(s): I25.10 - Atherosclerotic heart disease of [place] coronary artery without angina pectoris (3) Back pain Back pain laterality: unspecified Back pain location: low back pain Chronicity: chronic Sciatica presence: unspecified whether sciatica present Qualified Code(s): M54.5 - Low back pain; G89.29 - Other chronic pain (4) Osteomyelitis of foot Laterality: left Osteomyelitis type: unspecified type Qualified Code(s): M86.9 - Osteomyelitis, unspecified (5) Chest pain Chest pain type: unspecified Qualified Code(s): R07.9 - Chest pain, unspecified (6) HTN (hypertension) Hypertension type: essential hypertension Qualified Code(s): I10 - Essential (primary) hypertension
[2019-04-19] MEDS: BUMETANIDE 1 MG TAB PO SCH (15:13)
[2019-04-19] MEDS: HYDROCODONE/ACETAMOPHEN 5/325MG TAB PO PRN (16:44)
--- NOTE | 2019-04-19 17:01 | Consultation Report ---
DATE OF CONSULTATION: 04/19/2019 REQUESTING: ANGY Franco. DEPUTY ASSESSOR: Reji Norris DO, [facility] Cardiology for Dr. Zev Baca, who is the patient's primary military administrative technician. REASON FOR CONSULTATION: Severe ischemic cardiomyopathy, acute on chronic systolic heart failure, acute on chronic kidney injury. HISTORY OF PRESENT ILLNESS: The patient was admitted due to weakness, hyponatremia, concern for worsening of an underlying infection and confusion. His sodium has improved. His creatinine on admission was 2 and has improved back to near his baseline. He had some confusion last night, but notes overall it is much better. He is basically in a wheelchair all day at home once he gets out of bed due to an osteomyelitis of his foot. He denies any chest pain, chest pressure, chest heaviness. He denies any lightheadedness, dizziness, presyncope or syncope. He does have significant lower extremity edema and abdominal distention. His children cooked for him. It is unclear whether he is weighing himself and how much salt he is receiving. He denies any bleeding, bruising, dark stools or black stools. He has pain in his feet. He denies any fevers or chills. The rest of complete review of systems is otherwise negative. PAST MEDICAL HISTORY: 1. Acute on chronic systolic heart failure. 2. Severe ischemic cardiomyopathy with an ejection fraction in the range of 25%. 3. History of coronary artery disease, status post coronary bypass grafting x3 in 2002 with a DELATORRE to the LAD, FERNANDO to the marginal and a radial graft to OM, status post single chamber defibrillator, right bundle branch block, epidural abscess requiring multiple I and Ds. 4. Osteomyelitis of his foot. 5. Non-ST elevation myocardial infarction in 10/2018. 6. Multiple admissions for heart failure. 7. Cardiac catheterization on 07/2018, subtotal occluded ramus intermediate branch, total occlusion of the mid LAD, 80% proximal OM2 disease, severe mid RCA disease 95% and 90%. SOCIAL HISTORY: He lives with his family. He denies any tobacco or secondhand smoke exposure. 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 FAMILY HISTORY: Noncontributory. MEDICATIONS: Reviewed in electronic medical record. ALLERGIES: No known drug allergies. PHYSICAL EXAMINATION: GENERAL: He is awake, alert, oriented x3. He looks much younger than his stated age. VITAL SIGNS: His heart rate is 70, blood pressure 116/71, respirations 16, sat 97%. HEENT: Severely reduced carotid upstrokes, no evidence of carotid bruits. Jugular venous pressure appeared elevated. Sclerae is anicteric. His hearing is normal. LUNGS: Decreased breath sounds in the bases bilaterally. No rales, rhonchi or wheezing. HEART: Regular rate and rhythm. No appreciable murmurs or rubs. He does have an S3. ABDOMEN: Firm, distended. Positive bowel sounds, nontender. EXTREMITIES: No clubbing or cyanosis. He has moderate pitting edema to his knee bilaterally. PSYCHIATRIC: His affect appeared appropriate. His inpatient and outpatient records were reviewed. His diagnostic studies from this admission were reviewed. Sodium 135, potassium 4.3, BUN 35 with creatinine of 1.15. KUB, mild nonobstructive ileus. Chest x-ray: Small pleural effusions, cardiomegaly with pulmonary vascular congestion. IMPRESSION: 1. Acute on chronic systolic heart failure. 2. Severe ischemic cardiomyopathy. 3. Coronary artery disease as discussed above. 4. Single chamber defibrillator. 5. Acute kidney injury on chronic kidney disease. 6. Delirium. 7. Hyponatremia. He is clearly total body volume overloaded. Although, his BUN is up, his renal function has returned to normal. I would try low dose Entresto and stopping his losartan. He really has limited options. Entresto might be a way to diurese him without having to use aggressive diuretics. He is already on a small dose of valsartan and hopefully by adding a neprilysin inhibitor, he can get some degree of additional diuresis. We will have to watch his blood pressure, but given the severity of his LV dysfunction, he will likely tolerate a blood pressure in the 90s and not be overly symptomatic. Given his abdominal distention, it is unlikely he is absorbing p.o. Lasix. I would switch to Bumex a milligram daily. This can always be reduced if necessary. The Bumex tends to work better in heart failure. It is unclear what the device changes that were made by Dr. Baca. He has a single chamber device and is in sinus rhythm with a first degree AV block and a right bundle branch block. Although a 2B indication, one could consider upgrading his defibrillator to a biventricular device given the width of his right bundle branch block, although the chance that he is going to have improvement is very small. I would first try to push Eric and Jermaine and see if we can improve his symptoms. Thank you for allowing me to participate in his care. FRED
[2019-04-19] MEDS ORDERED: BISACODYL 5 MG TABEC PO ONE (17:56)
[2019-04-19] MEDS: TRAMADOL HCL 50 MG TABLET PO PRN (19:03)
[2019-04-19] MEDS: DAPTOmycin 400 MG in SYRINGE 0 ML IV SCH (19:04)
[2019-04-19] MEDS: POLYETHYLENE (MIRALAX) 17 GM PACK PO SCH ×3 (19:12→22:27)
[2019-04-19] MEDS ORDERED: diphenhydrAMINE HCl 12.5 MG/5 ML UDC PO ONE (20:40)
[2019-04-19] MEDS: TAMSULOSIN HCL 0.4 MG CAP PO SCH (21:53)
[2019-04-19] MEDS: SACUBITRIL-VALSARTAN 24-26 MG TAB PO SCH (21:54)
[2019-04-19] MEDS: ENOXAPARIN INJ 40 MG/0.4 ML SYR SQ SCH (21:54)
[2019-04-20] MEDS: POLYETHYLENE (MIRALAX) 17 GM PACK PO SCH (00:11)
[2019-04-20 05:46] LABS: Hematocrit (blood only) 26.9 % (42-52); Hemoglobin 8.8 g/dL (14.0-18.0); Mean Corpuscular Hemoglobin 30.4 pg (25-34); Mean Corpuscular Hgb Conc 32.7 g/dL (32-36); Mean Corpuscular Volume 93.1 fL (80-100); Mean Platelet Volume 9.6 fL (7.4-10.4); Platelet Count 151 K/uL (130-400); RDW Standard Deviation 54.1 fL (36.4-46.3); Red Blood Count 2.89 M/uL (4.7-6.1); White Blood Count 5.71 K/uL (4.8-10.8)
[2019-04-20 06:21] LABS: Albumin Level 2.9 gm/dl (3.4-5.0); BUN Creatinine Ratio 29.7 (10-20); Bilirubin,Total 0.3 mg/dl (0.2-1); Calcium 8.3 mg/dl (8.5-10.1); Creatinine Clr Calc Pharmacy 76.5 ml/min; Est GFR (African American) 85.3; Est GFR (Non-African American) 73.6; Magnesium 1.7 mg/dl (1.8-2.4); Phosphorus 3.1 mg/dl (2.5-4.9)
[2019-04-20] MEDS: LEVOTHYROXINE SODIUM 50 MCG TABLET PO SCH (06:22)
[2019-04-20 06:26] LABS: Albumin Globulin Ratio 0.9 (0.9-2); Ferritin 271.2 ng/ml (8-388); Globulin 3.2 gm/dl (2.5-4.0); Total Protein 6.1 gm/dl (6.4-8.2)
[2019-04-20] MEDS ORDERED: MAGNESIUM SULFATE / D5W 1 GM/100 ML BAG IV ONE (09:00)
[2019-04-20] MEDS: LIDOCAINE 5% 1 PATCH TD SCH (09:09)
[2019-04-20] MEDS: FERROUS SULFATE 325 MG TAB PO SCH ×2 (09:10→17:06)
[2019-04-20] MEDS: ASPIRIN 81 MG ECTAB PO SCH (09:10)
[2019-04-20] MEDS: MULTIVITAMIN TAB PO SCH (09:10)
[2019-04-20] MEDS: FINASTERIDE 5 MG TAB PO SCH (09:10)
[2019-04-20] MEDS: CLOPIDOGREL BISULFATE 75 MG TAB PO SCH (09:11)
[2019-04-20] MEDS: BUMETANIDE 1 MG TAB PO SCH (09:11)
[2019-04-20] MEDS: ASCORBIC ACID 500 MG TAB PO SCH (09:11)
[2019-04-20] MEDS: PANTOprazole 40 MG TAB PO SCH ×2 (09:11→20:54)
[2019-04-20] MEDS: METOPROLOL SUCC 50MG EXT REL TAB PO SCH (09:11)
[2019-04-20] MEDS: GABAPENTIN 100 MG CAP PO SCH ×2 (09:12→20:54)
[2019-04-20] MEDS: POLYETHYLENE (MIRALAX) 17 GM PACK PO PRN (09:12)
[2019-04-20] MEDS: SACUBITRIL-VALSARTAN 24-26 MG TAB PO SCH ×2 (09:12→20:54)
[2019-04-20] MEDS: CIPROFLOXACIN 500 MG TAB PO SCH ×2 (09:12→20:55)
[2019-04-20] MEDS: INSULIN ASPART 100 UNITS/ML 3 ML PEN SC SCH ×4 (09:16→20:57)
[2019-04-20] MEDS: TRAMADOL HCL 50 MG TABLET PO PRN (11:39)
[2019-04-20] MEDS: NYSTATIN POWDER 15GM BTL EXT PRN ×2 (12:37→14:26)
--- NOTE | 2019-04-20 13:32 | Discharge Summary ---
Date of Service April 20, 2019 Admission HPI Per Admitting Provider Mr. Cooper is a 68-year-old male with multiple medical problems to include diabetes with retinopathy and neuropathy, hypertension, CAD, CKD. 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 He was treated with IV antibiotics as well as Omnicef and Bactrim. He has had multiple visits to the ER of late for CHF, also with intermittent hallucinations, weakness as well as worsening left foot pain and drainage and worsening back pain. Patient was seen by Dr. Ndiaye today in clinic for the above complaints and was subsequently sent to [facility] for direct admission, concern for infection as underlying cause of hallucinations and mental status change. Specifically worsening osteomyelitis, possible back infection. Patient with long-standing history of lumbar spinal stenosis which was treated with decompression and fusion. Subsequent development of Serratia infection on 08/11/2018 which was treated with IV ertapenem. He was taken to the OR on 09/10/2018 for exploration was found to have a paraspinal abscess. Fluid at that time positive for coagulase-negative staph. His hardware was removed and he was treated with IV daptomycin to vancomycin. He was then discharged to [facility]. Patient does not ambulate at present. My exam patient is afebrile, hemodynamically stable, somnolent but arousable. Answers some questions but is unable to provide much history. He does not know his medications or when he takes them. He does complain of pain in the foot with inability to bear weight as well as pain in the low back he denies fever/chills/nausea/vomiting/sweats/malaise. Denies chest pain/palpitations/shortness of breath/abdominal pain. No additional complaints at this time Principal Diagnosis Osteomyelitis Discharge Exam Constitutional WD/WN, vitals as above Respiratory normal respiratory effort, lungs clear to auscultation Cardiovascular RRR, no murmur, no edema Gastrointestinal (Abdomen) Inspection/Auscultation: abdomen normal to inspection and normal bowel sounds; abdomen not distended Percussion/Palpation: abdomen soft; abdomen nontender Musculoskeletal generalized weakness Skin no rashes, warm and dry left heel with small amount of green/brown drainage, no streaking or surrounding erythema Neurologic moves all extremities and awake Psychiatric A+Ox3, euthymic affect Discharge Data Allergies Allergy/AdvReac Type Severity Reaction Status Date / Time lorazepam [From Ativan] AdvReac Confusion Verified 04/14/19 20:18 Consultations 04/14/19 17:21 Consult Infectious Diseases Routine 04/14/19 17:23 Consult Case Management - Discharge Planning Routine 04/14/19 17:27 Consult Orthopedic Surgery Routine 04/15/19 13:05 Consult Orthopedic Surgery Routine 04/16/19 18:45 Consult Plastic Surgery Routine 04/17/19 10:53 Consult Cardiology Routine 04/18/19 13:35 Consult Urology Routine 04/18/19 22:22 Consult Case Management - Discharge Planning Routine Ordered Studies 04/14/19 17:58 CT lumbar spine wo con Urgent 04/14/19 22:53 CT head/brain wo con Urgent 04/15/19 17:28 US venous doppler LE Urgent Hospital Course (1) Osteomyelitis of foot: * Patient with chronic osteomyelitis of the foot. Recently with worsening pain and increased foul-smelling discharge. X-ray obtained of the left foot. Evidence of chronic osteomyelitis. Hx MRSA- contact precautions. * Still has stapled dressing in place from previous surgery January [address] Guillermo * Ortho consult-- rec to follow up with plastics outpatient this week vs transfer to tertiary care as inpatient --> will continue to treat and have follow with plastics after discussion with patient and - no need to transfer at this time- follow up as scheduled in two days) * Duplex Arterial study from 02/02/19 of left leg with moderate arterial occlusive change of all vessel of proximal calf, occlusion of distal left peroneal artery. Had arterial angiogram 01/[address] Larose- no intervention necessary * Venous Doppler bl LE negative for DVT * continue pain control * Continue Daptomycin for MRSA coverage -- will require weekly CPK while on Dapto. Should also have weekly CBC, ESR, CRP, CMP * Infectious Disease on consult -- will continue dapto/cipro as PSEUDOMONAS on culture resistant to Zosyn --> per ID will need at least 2 weeks of treatment --> US guided IV placed for home dapto infusion * ID follow up after discharge (2) Chronic systolic heart failure: * History of ischemic cardiomyopathy with reduced EF to 25 to 30% with an akinetic inferior wall and global hypokinesis. Negative Is & Os, weight down almost 3kgs. No respiratory distress * Continue home medications aspirin, metoprolol, hold atorvastatin * Furosemide changed to Bumex, Entresto initiated - pressures tolerating * cardiology ok with discharge from their standpoint (3) Metabolic encephalopathy: * Improved -- likely secondary to left heel infection * Patient presenting from outpatient clinic with persistent confusion, hallucinations. Concern for infectious etiology. Presently he is afebrile, hemodynamically stable. No leukocytosis. Labs with stable normochromic normocytic anemia, sodium of 129, mildly elevated BUN of 44 and creatinine 2.03 all of which are now improved. Episodic hypoglycemia which is now improved. Elevated TSH at 6.56. * Head CT without acute process (4) Constipation: * Improved * Seems to be chronic secondary to immobility over the past year, narcotic use * DESPITE 4 large formed BM --? KUB 04/18 with moderate INCREASE in fecal load transverse and descending colon. Mild nonobstructive small bowel ileus. Stable postop changes of lumbar spine. --> Given dulcolax x 1 and miralax x4. * Will continue bowel regimen to prevent further constipation * subsequent loose stools with bowel regimen - requesting Cdiff test before she takes him home. (5) Back pain: * Patient with worsening low back pain of late. Has history of spinal infection/infected hardware requiring extraction and long-term antibiotic treatment. CT L-spine and antibiotics as above * ID consultation * Lumbar Spine CT -- erosive endplate change at L2-L3 is similar to prior studies. Acute versus chronic osteomyelitis impossible to exclude. 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 Postoperative fluid collection is again suggested in the laminectomy bed. This is not well-visualized due to streak artifact and the sterility cannot be assessed by CT. Bilateral pleural effusions. * --> Ortho Spine consult- Dr. Morales- appreciate input -- no intervention at this time (6) PAULA (acute kidney injury): reolved (7) PAD (peripheral artery disease): * Chronic. * Was not receiving Plavix-restarted * Holding atorvastatin while on daptomycin * Duplex study as above (8) Thyroid disorder: * Chronic. Elevated TSH. Appears to have been elevated >5 since November. * Continue Synthroid 25 mcg -- increased to 50 mcg daily as TSH appears to be elevated >5.79 since November 2018. * Needs follow-up thyroid function tests in 4 to 6 weeks (9) Stage III chronic kidney disease: * Baseline creatinine around 0.8 * Avoid nephrotoxins and renally dose medications when appropriate (10) Coronary artery disease: * S/P CABG x 3 in 2002- DELATORRE to LAD, FERNANDO to marginal, radial graft to OM * S/P defibrillator, RBBB * Cardiac catheterization Jul 2018 -- subtotal occluded ramus intermediate branch, total occlusion of the mid LAD, 80% proximal OM2 disease, severe mid RCA disease 95% and 90%. * Continue ASA, Plavix, Metoprolol succ 50mg * Losartan discontinued and Entresto initiated evening 04/19 -- monitor for hypotension * Atorvastatin on hold while inpatient and on Dapto (11) HTN (hypertension): * Blood pressure well controlled- 116/71 - per records, patient with generally low BP * Continue metoprolol * D/C lasix and losartan -- switched to bumex and Entresto -- tolerating well, will need to continue to check home BPs to monitor for hypotension (12) High cholesterol: * Holding atorvastatin while on Dapto (13) BPH (benign prostatic hyperplasia): * Continue Flomax and Proscar * Luna placed evening 04/19 due to retention - will dc with luna catheter and have patient follow up with urology this week (14) Anemia in chronic illness: * Hgb 8.8. MCV normocytic * recent B12 level normal, iron low normal, fecal occult negative, folate pending * No evidence of active bleed. (15) Vitamin D deficiency: * Holding vitamin D supplements while inpatient (16) Tinea corporis: left upper shoulder - initiated terbinafine 04/20 (17) Diabetes mellitus type 2, controlled: Patient with history of diabetes. Most recent A1c 6.2. * No medications listed. Per , he had previously been on insulin prior to back surgery and complications but had never been restarted. Hemoglobin A1c is very well controlled and does not need any medications at home at this time * Continue home Neurontin for neuropathy (18) DVT prophylaxis: * Lovenox inpatient Total Time Total Time Spent Total Time Spent (In Minutes): greater than 30 minutes Discharge Plan Discharge Items Reason For Visit: OSTEOMYELITIS Follow-up/Referrals: Dr. Ryley Zambrano [Other] - 04/22/19 10:00 am (Please, follow up with Dr. Ryley Zambrano on SaturdayApril 22 at 10:00 am. *This appointment is at [facility] [address] Office. If you need to change this appointment, call the office at [phone].) [facility] [Provider Group] - 04/28/19 9:30 am (Please, follow up at [facility] Urology Office on SaturdayApril 28 at 9:30 am. The office is located at [address] in [place]. If you need to change this appointment, call the office at [phone].) Robert Ndiaye MD [Physician] - 05/01/19 11:15 am (Please, follow up at [facility]'s Infectious Disease Specialist, Dr. Robert Ndiaye, on SaturdayMay 01 at 11:15 am. *The office is located in [address] of [facility], next to this hospital. If you need to change this appointment, call the office at [phone].) Christiano Alvarez MD [Physician] - 04/27/19 11:00 am (Please, follow up at Dr. Alvarez's office with his associate, Ana Sarabia PA-C, on SaturdayApril 27 at 11:00 am. *If you need to change this appointment, call the office at [phone].) Chuckie Guillermo DO [Surgeon] - 04/24/19 4:00 pm (Please, follow up at [facility] with Dr. Guillermo's associate, Jeffery Renee PA-C, on SaturdayApril 24 at 4:00 pm. *If you need to change this appointment, call the office at [phone].) Serenity Lopez PA-C [Physician Auto Seat Cover Installer] - 04/23/19 10:00 am (Congestive Heart Failure Program Appointment Information Early follow up is essential to managing your heart failure. An appointment has been scheduled for you with the [facility] Heart Failure Program within 7 days of discharge. Anticipate this visit to be 30-60 minutes long. Please expect a parking station attendant phone call from one of our nurses approximately 48 hours from discharge. They will also be placing an order for lab work to be completed 1-2 days prior to your heart failure follow up appointment. Please be sure to have this done so we can go over the results when you come in. Office Location The cardiology office building is located in front of the hospital at [address] Bring the following with you to your follow-up doctor appointments: Please bring your daily weight log any discharge paperwork all of your medication bottles with you to this visit. ) Ambulatory Orders: Complete Blood Count with Diff (Routine) Timeframe: 20190424 Location: Determined by Patient Ordered By: Winter Loredo Creatine Kinase (Routine) Timeframe: 20190424 Location: Determined by Patient Ordered By: Winter Loredo Comprehensive Metabolic Panel (Routine) Timeframe: 20190424 Location: Determined by Patient Ordered By: Winter Loredo C Reactive Protein (Routine) Timeframe: 20190424 Location: Determined by Patient Ordered By: Winter Loredo Erythrocyte Sedimentation Rate (Routine) Timeframe: 20190424 Location: Determined by Patient Ordered By: Winter Loredo Addtl Attending Provider Instructions: Please keep your appointment with plastic surgery. You should also follow up with Dr. Guillermo from orthopedics. You will also need to follow up with infectious disease before your antibiotics are completed in 2 weeks to see if you will need a longer course. Please see your primary care provider within the next week. Please see urology later this week. Your Luna catheter will stay in until that time. Please have home health draw a weekly CPK, CBC, ESR, CRP, CMP blood work while you are receiving daptomycin therapy. Blood work to be managed by [employer] and Dr. Ndiaye. (1) Osteomyelitis of foot: Continue Daptomycin IV therapy and ciprofloxacin for at least two weeks. Your wound culture grew a bacteria called pseudomonas. (2) Chronic systolic heart failure: Continue home Toprol XL 50mg daily You were started on sacubitril/valsartan (Entresto) yesterday as well as changed from furosemide to bumetanide (Bumex). Please check your blood pressure at home every day at different times and keep a log to take to your next doctor's appointment. Please let your manager bar know if the top number of your blood pressure is running below 90 or if you are becoming dizzy or lightheaded. Your losartan and furosemide has been discontinued 3) Coronary artery disease, hypertension Please continue aspirin, clopidegral (Plavix), Entresto, and metoprolol Atorvastatin is on hold while you are receiving Daptomycin therapy. You should discuss resuming with your primary care provider or manager bar 4) Constipation: Continue docusate (stool softeners) and Miralax as needed 5) Benign Prostatic Hypertrophy (BPH) You will go home with a Luna catheter. Please see urology later this week Continue finasteride and tamsulosin 6)Anemia Continue supplemental iron 7)PAD (peripheral artery disease): Continue Plavix. Please hold atorvastatin while on daptomycin therapy 8)Tinea Corporis (ringworm) upper left shoulder Apply terbinafine ointment once daily. Please follow up with your primary care provider as to length of therapy Pending Studies at Discharge: Yes Studies:: B12 Medications and DC Order Prescriptions: New ciprofloxacin HCl 500 mg Tablet 500 mg PO BID Qty: 28 RF: 0 Entresto 24-26 mg Tablet 1 tab PO BID Qty: 60 RF: 0 bumetanide 1 mg Tablet 1 mg PO QAM Qty: 30 RF: 0 terbinafine HCl 1 % Cream 1 applic EXT DAILY Qty: 1 RF: 0 daptomycin 500 mg recon soln 500 mg IV DAILY Qty: 14 RF: 0 polyethylene glycol 3350 [Miralax] 17 gram Powder In Packet 17 g PO DAILY PRN (Reason: constipation) Qty: 30 RF: 0 docusate sodium 100 mg Capsule 100 mg PO BID Qty: 60 RF: 0 Continued ferrous sulfate 325 mg (65 mg iron) tablet,delayed release (DR/EC) 325 mg PO BIDM Qty: 90 RF: 1 tamsulosin [Flomax] 0.4 mg capsule 0.4 mg PO HS Qty: 90 RF: 1 lidocaine 5 % adhesive patch,medicated 2 patch transdermal DIRECTED RF: 0 hydrocodone-acetaminophen [Ellsworth] 5-325 mg Tablet 1 tab PO Q4H PRN (Reason: Pain) RF: 0 melatonin 5 mg Tablet 5 mg PO HS RF: 0 nystatin 100,000 unit/gram ointment 1 applic EXT DAILY RF: 0 Therems-M 27-0.4 mg Tablet 1 tab PO DAILY RF: 0 ascorbic acid (vitamin C) [Vitamin C] 500 mg Tablet 500 mg PO QAM RF: 0 oxycodone 5 mg Tablet 5 mg PO TID RF: 0 tramadol [Ultram] 50 mg tablet 50 mg PO Q4H PRN (Reason: pain) RF: 0 levothyroxine [Synthroid] 25 mcg tablet 25 mcg PO QAM RF: 0 pantoprazole [Protonix] 40 mg tablet,delayed release (DR/EC) 40 mg PO BID RF: 0 gabapentin [Neurontin] 100 mg capsule 100 mg PO BID RF: 0 metoprolol succinate [Toprol XL] 50 mg Tablet Extended Release 24 Hr 50 mg PO DAILY RF: 0 aspirin [Aspir-81] 81 mg Tablet,Delayed Release (Dr/Ec) 81 mg PO QAM RF: 0 finasteride [Proscar] 5 mg Tablet 5 mg PO QAM RF: 0 cholecalciferol (vitamin D3) [Vitamin D3] 1,000 unit Tablet 2,000 unit PO DAILY RF: 0 clopidogrel [Plavix] 75 mg tablet 75 mg PO QAM RF: 0 Discontinued cefdinir 300 mg capsule 300 mg PO BID 14 Days Qty: 28 RF: 0 sulfamethoxazole-trimethoprim [Bactrim DS] 800-160 mg tablet 1 tab PO BID 14 Days Qty: 28 RF: 0 atorvastatin 40 mg tablet 40 mg PO QPM RF: 0 losartan [Cozaar] 25 mg tablet 25 mg PO QAM RF: 0 furosemide 20 mg tablet 20 mg PO QAM RF: 0 Admission Data Admit Date/Time: 04/14/19 15:49 Attending Provider: Veena España Admit Provider: Amy Aguilar Primary Care Provider: Philip Braxton Other Providers: Robert Ndiaye ; Chuckie Guillermo ; [facility] ; Bong Morales ; Shavonne Schmid ; Zev Baca ; Christiano Cheng Other Interventions: Discharge Summary Assessment (RN) Last Done: 04/20/19 15:37 Supervising Physician Co-Signing Physician Notes D/C cancelled
[2019-04-20] MEDS: NYSTATIN OINT 15 GM TUBE EXT SCH (14:26)
[2019-04-20] MEDS: TERBINAFINE CR 30 GM TUBE EXT SCH (14:47)
[2019-04-20] MEDS ORDERED: DAPTOmycin 400 MG in SYRINGE 0 ML IV STA (14:57)
[2019-04-20 16:26] LABS: Cdiff Antigen Positive
[2019-04-20 16:28] LABS: Cdiff Toxin A+B Positive Cdiff Toxin (Negative)
--- NOTE | 2019-04-20 16:57 | Hospitalist Progress Note ---
Date of Service April 20, 2019 Assessment & Plan (1) Osteomyelitis of foot: * Patient with chronic osteomyelitis of the foot. Recently with worsening pain and increased foul-smelling discharge. X-ray obtained of the left foot. Evidence of chronic osteomyelitis. Hx MRSA- contact precautions. * Still has stapled dressing in place from previous surgery January [address] Guillermo * Ortho consult-- rec to follow up with plastics outpatient this week vs transfer to tertiary care as inpatient --> will continue to treat and have follow with plastics after discussion with patient and - no need to transfer at this time- follow up as scheduled in two days) * Duplex Arterial study from 02/02/19 of left leg with moderate arterial occlusive change of all vessel of proximal calf, occlusion of distal left peroneal artery. Had arterial angiogram 01/[address] Larose- no intervention necessary * Venous Doppler bl LE negative for DVT * continue pain control * Continue Daptomycin for MRSA coverage -- will require weekly CPK while on Dapto. Should also have weekly CBC, ESR, CRP, CMP * Infectious Disease on consult -- will continue dapto/cipro as PSEUDOMONAS on culture resistant to Zosyn --> per ID will need at least 2 weeks of treatment --> US guided IV placed for home dapto infusion * ID follow up after discharge (2) Chronic systolic heart failure: * History of ischemic cardiomyopathy with reduced EF to 25 to 30% with an akinetic inferior wall and global hypokinesis. Negative Is & Os, weight down almost 3kgs. No respiratory distress * Continue home medications aspirin, metoprolol, hold atorvastatin * Furosemide changed to Bumex, Entresto initiated - pressures tolerating * cardiology ok with discharge from their standpoint (3) Metabolic encephalopathy: * Improved -- likely secondary to left heel infection * Patient presenting from outpatient clinic with persistent confusion, hallucinations. Concern for infectious etiology. Presently he is afebrile, hemodynamically stable. No leukocytosis. Labs with stable normochromic normocytic anemia, sodium of 129, mildly elevated BUN of 44 and creatinine 2.03 all of which are now improved. Episodic hypoglycemia which is now improved. Elevated TSH at 6.56. * Head CT without acute process (4) Constipation: * hold bowel regimen for C diff as below (5) Back pain: * Patient with worsening low back pain of late. Has history of spinal infection/infected hardware requiring extraction and long-term antibiotic treatment. CT L-spine and antibiotics as above * ID consultation * Lumbar Spine CT -- erosive endplate change at L2-L3 is similar to prior studies. Acute versus chronic osteomyelitis impossible to exclude. 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 Postoperative fluid collection is again suggested in the laminectomy bed. This is not well-visualized due to streak artifact and the sterility cannot be assessed by CT. Bilateral pleural effusions. * --> Ortho Spine consult- Dr. Morales- appreciate input -- no intervention at this time (6) PAULA (acute kidney injury): reolved (7) PAD (peripheral artery disease): * Chronic. * Was not receiving Plavix-restarted * Holding atorvastatin while on daptomycin * Duplex study as above (8) Thyroid disorder: * Chronic. Elevated TSH. Appears to have been elevated >5 since November. * Continue Synthroid 25 mcg -- increased to 50 mcg daily as TSH appears to be elevated >5.79 since November 2018. * Needs follow-up thyroid function tests in 4 to 6 weeks (9) Stage III chronic kidney disease: * Baseline creatinine around 0.8 * Avoid nephrotoxins and renally dose medications when appropriate (10) Coronary artery disease: * S/P CABG x 3 in 2002- DELATORRE to LAD, FERNANDO to marginal, radial graft to OM * S/P defibrillator, RBBB * Cardiac catheterization Jul 2018 -- subtotal occluded ramus intermediate branch, total occlusion of the mid LAD, 80% proximal OM2 disease, severe mid RCA disease 95% and 90%. * Continue ASA, Plavix, Metoprolol succ 50mg * Losartan discontinued and Entresto initiated evening 04/19 -- monitor for hypotension * Atorvastatin on hold while inpatient and on Dapto (11) HTN (hypertension): * Blood pressure well controlled- 116/71 - per records, patient with generally low BP * Continue metoprolol * D/C lasix and losartan -- switched to bumex and Entresto -- tolerating well, will need to continue to check home BPs to monitor for hypotension (12) High cholesterol: * Holding atorvastatin while on Dapto (13) BPH (benign prostatic hyperplasia): * Continue Flomax and Proscar * Luna placed evening 04/19 due to retention - will dc with luna catheter and have patient follow up with urology this week (14) Anemia in chronic illness: * Hgb 8.8. MCV normocytic * recent B12 level normal, iron low normal, fecal occult negative, folate pendi ng * No evidence of active bleed. (15) Vitamin D deficiency: * Holding vitamin D supplements while inpatient (16) Tinea corporis: left upper shoulder - initiated terbinafine 04/20 (17) Diabetes mellitus type 2, controlled: Patient with history of diabetes. Most recent A1c 6.2. * No medications listed. Per , he had previously been on insulin prior to back surgery and complications but had never been restarted. Hemoglobin A1c is very well controlled and does not need any medications at home at this time * Continue home Neurontin for neuropathy (18) C. difficile colitis: Vancomycin 250 mg QID (19) DVT prophylaxis: * Lovenox inpatient Supervising Physician Co-Signing Physician Notes I have reviewed the pt chart and discussed current care with Ms. Gertrude NP and agree with her assessment and plan of this pt. Subjective Mr Cooper is feeling better, looking forward to being discharged soon. ROS Constitutional: no chills, aches, sweats or fever Respiratory: no sob,cough, sputum, or wheezing Cardiac: no chest pain, palpitations, edema, orthopnea or lightheadedness GI: no abdominal pain, nausea, vomiting, diarrhea or constipation : no dysuria or hesitancy Extremities: no joint pain or weakness Skin: no rash All other systems reviewed and negative Physical Exam Physical Exam: General: no distress Eyes: normal inspection, PERLL Respiratory: chest non tender, clear to auscultation, normal breath sounds, no respiratory distress, no accessory muscle use Cardiac: regular rate and rhythm, no rub or gallop, no murmur, no edema, no jvd GI/: active bowel sounds, no abd pain or tenderness, soft, non distended Extremities: normal range of motion, normal strength, non tender Neuro/Psych: alert and oriented x 3, normal mood and affect Skin: normal color, dry, heel wound with small amount of green/brown drainage, no streaking or surrounding erythema. Results & Data Vital Signs (Past 12 Hours) Vital Signs Temp Pulse Pulse Resp BP BP Pulse Ox 04/20/19 15:37 36.9 C 62 60 18 108/56 L 119/67 96 04/20/19 15:18 36.9 C 62 18 119/67 96 04/20/19 07:34 37.0 C 66 18 147/68 H 97 PG Care Time/CCT Total # of Minutes Spent Total Time Spent with Patient: Total time spent is greater than 50% in coordination of care (as documented) at patient's floor/unit and/or counseling patient: (1) BPH (benign prostatic hyperplasia) Lower urinary tract symptom presence: unspecified whether lower urinary tract symptoms present Qualified Code(s): N40.0 - Benign prostatic hyperplasia without lower urinary tract symptoms (2) Coronary artery disease Associated angina: without angina Coronary Disease-Associated Artery/Lesion type: [place] artery [place] vs. transplanted heart: [place] heart Qualified Code(s): I25.10 - Atherosclerotic heart disease of [place] coronary artery witho ut angina pectoris (3) Back pain Back pain laterality: unspecified Back pain location: low back pain Chronicity: chronic Sciatica presence: unspecified whether sciatica present Qualified Code(s): M54.5 - Low back pain; G89.29 - Other chronic pain (4) Osteomyelitis of foot Laterality: left Osteomyelitis type: unspecified type Qualified Code(s): M86.9 - Osteomyelitis, unspecified (5) HTN (hypertension) Hypertension type: essential hypertension Qualified Code(s): I10 - Essential (primary) hypertension
[2019-04-20] MEDS: HYDROCODONE/ACETAMOPHEN 5/325MG TAB PO PRN (17:06)
--- NOTE | 2019-04-20 17:24 | Cardiology Progress Note ---
Date of Service April 20, 2019 Assessment & Plan (1) Ischemic cardiomyopathy: He has an ischemic cardiomyopathy with significant left ventricular dysfunction. Our medical options are limited as he does not tolerate higher doses of medications. He typically has a right bundle branch block pattern with intrinsic AV conduction, although during this hospitalization he has been pacing more so he had a wide left bundle pattern. Is not clear whether that is a part of his cardiomyopathy or not, I suspect not. (2) AICD (automatic cardioverter/defibrillator) present: He has a single-chamber ICD and has had some ventricular pacing although for the most part his atrial rate is above that of the ICD. We could consider upgrading his device to a dual-chamber ICD, that would allow us to atrial paced by do not know that that would change things very much. We could consider an upgrade to a biventricular device but he has a right bundle branch block pattern when he has intrinsic conduction in the QRS duration is only about 150 ms and so the benefit of that is questionable. For the moment I would like to leave things alone. (3) CHF (congestive heart failure): He does have congestive heart failure and is being diuresed, I think we can continue this at home if he is stable for discharge otherwise. Unfortunately we are limited in our medical options as noted above. Subjective He is feeling well today and is anxious to go home. He is having no shortness of breath and no other cardiovascular complaints. Physical Exam Physical Exam: Constitutional: Alert, cooperative and in no distress. Pulmonary: Basilar crackles on auscultation bilaterally. Cardiac: Regular rhythm with no murmur, gallop or rub. Abdomen: Soft, nontender with normal bowel sounds. Extremities: +2 bilateral pretibial edema. Skin: No rash, ecchymoses or petechiae. Results & Data Vital Signs (Past 12 Hours) Vital Signs Temp Pulse Pulse Resp BP BP Pulse Ox 04/20/19 15:37 36.9 C 62 60 18 108/56 L 119/67 96 04/20/19 15:18 36.9 C 62 18 119/67 96 04/20/19 07:34 37.0 C 66 18 147/68 H 97 PG Care Time/CCT Total # of Minutes Spent Total Time Spent with Patient: Total time spent is greater than 50% in coordination of care (as documented) at patient's floor/unit and/or counseling patient: (1) CHF (congestive heart failure) Heart failure chronicity: unspecified Heart failure type: unspecified Qualified Code(s): I50.9 - Heart failure, unspecified
[2019-04-20] MEDS: RASPBERRY SYRUP 5 ML UDP PO SCH ×2 (18:33→23:27)
[2019-04-20] MEDS: VANCOMYCIN HCL 250 MG/5 ML SOLN PO SCH ×2 (18:33→23:27)
[2019-04-20] MEDS ORDERED: DAPTOmycin 400 MG in SYRINGE 0 ML IV SCH (20:00)
[2019-04-20] MEDS: TAMSULOSIN HCL 0.4 MG CAP PO SCH (20:54)
[2019-04-20] MEDS: ENOXAPARIN INJ 40 MG/0.4 ML SYR SQ SCH (20:55)
[2019-04-21] MEDS: HYDROCODONE/ACETAMOPHEN 5/325MG TAB PO PRN (03:10)
[2019-04-21] MEDS: LEVOTHYROXINE SODIUM 50 MCG TABLET PO SCH (05:38)
[2019-04-21] MEDS: RASPBERRY SYRUP 5 ML UDP PO SCH ×2 (05:38→11:43)
[2019-04-21] MEDS: VANCOMYCIN HCL 250 MG/5 ML SOLN PO SCH ×2 (05:38→11:44)
[2019-04-21] MEDS: ONDANSETRON INJ 2 MG/ML 2 ML VIAL IV PRN (08:49)
[2019-04-21] MEDS: TERBINAFINE CR 30 GM TUBE EXT SCH (08:53)
[2019-04-21] MEDS: CLOPIDOGREL BISULFATE 75 MG TAB PO SCH (09:28)
[2019-04-21] MEDS: PANTOprazole 40 MG TAB PO SCH (09:28)
[2019-04-21] MEDS: METOPROLOL SUCC 50MG EXT REL TAB PO SCH (09:28)
[2019-04-21] MEDS: LIDOCAINE 5% 1 PATCH TD SCH (09:28)
[2019-04-21] MEDS: MULTIVITAMIN TAB PO SCH (09:28)
[2019-04-21] MEDS: NYSTATIN POWDER 15GM BTL EXT PRN (09:29)
[2019-04-21] MEDS: ASCORBIC ACID 500 MG TAB PO SCH (09:30)
[2019-04-21] MEDS: GABAPENTIN 100 MG CAP PO SCH (09:30)
[2019-04-21] MEDS: FERROUS SULFATE 325 MG TAB PO SCH (09:30)
[2019-04-21] MEDS: ASPIRIN 81 MG ECTAB PO SCH (09:30)
[2019-04-21] MEDS: FINASTERIDE 5 MG TAB PO SCH (09:30)
[2019-04-21] MEDS: BUMETANIDE 1 MG TAB PO SCH (09:31)
[2019-04-21] MEDS: SACUBITRIL-VALSARTAN 24-26 MG TAB PO SCH (09:31)
[2019-04-21] MEDS: INSULIN ASPART 100 UNITS/ML 3 ML PEN SC SCH (09:35)
[2019-04-21] MEDS ORDERED: DAPTOmycin 400 MG in SYRINGE 0 ML IV STA (09:50)
--- NOTE | 2019-04-21 09:50 | Cardiology Progress Note ---
Date of Service April 21, 2019 Assessment & Plan (1) Ischemic cardiomyopathy: He has an ischemic cardiomyopathy with significant left ventricular dysfunction. Our medical options are limited as he does not tolerate higher doses of medications. He typically has a right bundle branch block pattern with intrinsic AV conduction, although during this hospitalization he has been pacing more so he had a wide left bundle pattern. Is not clear whether that is a part of his cardiomyopathy or not, I suspect not. I agree with Entresto, hopefully he can afford and tolerate it. As of yesterday his creatinine and potassium were good and his blood pressure was acceptable. (2) AICD (automatic cardioverter/defibrillator) present: He has a single-chamber ICD and has had some ventricular pacing although for the most part his atrial rate is above that of the ICD. We could consider upgrading his device to a dual-chamber ICD, that would allow us to atrial paced but I do not know that that would change things very much. We could consider an upgrade to a biventricular device but he has a right bundle branch block pattern when he has intrinsic conduction and the QRS duration is only about 150 ms and so the benefit of that is questionable. For the moment I would like to leave things alone. We can review percent pacing in the office and make a determination as to whether we should consider device upgrade. (3) CHF (congestive heart failure): He does have congestive heart failure and is being diuresed, I think we can continue this at home if he is stable for discharge otherwise. Unfortunately we are limited in our medical options as noted above. I think he could still use a little bit more diuresis. Subjective He is feeling well today, he is in good spirits and has no complaints of shortness of breath. He notes that his legs are still somewhat swollen. Physical Exam Physical Exam: Constitutional: Alert, cooperative and in no distress. Pulmonary: Basilar crackles on auscultation bilaterally. Cardiac: Regular rhythm with no murmur, gallop or rub. Abdomen: Soft, nontender with normal bowel sounds. Extremities: +2 bilateral pretibial edema. Skin: No rash, ecchymoses or petechiae. Results & Data Vital Signs (Past 12 Hours) Vital Signs Temp Pulse Resp BP BP Pulse Ox 04/21/19 07:00 36.3 C L 71 17 104/59 L 97 04/20/19 23:16 36.8 C 62 16 104/59 L 99 Laboratory Results Abnormal lab results 04/20/19 04/20/19 04/20/19 Range/Units 08:07 12:00 14:32 POC Glucose 128 H 157 H (70-99) Stl C. diff Tox B Gene Positive Cdiff Gene H (Neg) Stl C.difficile Tox A&B Positive Cdiff Toxin A* (Negative) 04/20/19 04/20/19 04/21/19 Range/Units 17:04 20:25 08:13 POC Glucose 145 H 192 H 137 H (70-99) Stl C. diff Tox B Gene (Neg) Stl C.difficile Tox A&B (Negative) PG Care Time/CCT Total # of Minutes Spent Total Time Spent with Patient: Total time spent is greater than 50% in coordination of care (as documented) at patient's floor/unit and/or counseling patient: (1) CHF (congestive heart failure) Heart failure chronicity: unspecified Heart failure type: unspecified Qualified Code(s): I50.9 - Heart failure, unspecified
[2019-04-21] MEDS: CIPROFLOXACIN 500 MG TAB PO SCH (11:20)
== END 2019-04-21 12:38 | disposition home health service (06) | DRG 637 ==
LOC: SUATTDRO 15:49 → 3N 15:49

== ENCOUNTER 2019-05-06 14:33 | Inpatient (IN) ==
[2019-05-06] MEDS ORDERED: SODIUM CHLORIDE 0.9% 250 ML IV ONE ×2 (15:40→17:57)
[2019-05-06 16:10] LABS: Basophils # (auto) 0.07 K/uL (0-0.2); Basophils % (auto) 1.2 %; Eosinophils # (auto) 0.39 K/uL (0-0.5); Eosinophils % (auto) 6.9 %; Hematocrit (blood only) 31.7 % (42-52); Hemoglobin 10.3 g/dL (14.0-18.0); Immature Granulocytes # (auto) 0.01 K/uL (0.00-0.02); Immature Granulocytes % (auto) 0.2 %; Lymphocytes # (auto) 0.93 K/uL (1.2-3.4); Lymphocytes % (auto) 16.4 %; Mean Corpuscular Hemoglobin 29.9 pg (25-34); Mean Corpuscular Hgb Conc 32.5 g/dL (32-36); Mean Corpuscular Volume 92.2 fL (80-100); Mean Platelet Volume 9.8 fL (7.4-10.4); Monocytes # (auto) 0.81 K/uL (0.11-0.59); Monocytes % (auto) 14.3 %; Neutrophils # (auto) 3.46 K/uL (1.4-6.5); Platelet Count 171 K/uL (130-400); RDW Coefficient of Variation 15.5 % (11.5-14.5); RDW Standard Deviation 52.4 fL (36.4-46.3); Red Blood Count 3.44 M/uL (4.7-6.1); White Blood Count 5.67 K/uL (4.8-10.8)
[2019-05-06 16:22] LABS: Partial Thromboplastin Time 27.1 Seconds (21.0-31.0); Prothrombin Time 10.7 Seconds (9.0-12.0)
--- NOTE | 2019-05-06 16:28 | XRay Report ---
XR chest 1V portable CLINICAL HISTORY: Sepsis dyspnea COMPARISON STUDY: 05/04/2019 FINDINGS: The lungs are clear. Mild stable cardiomegaly. Cardiac pacemaker in good position. Diaphrag ms are smooth. Prior median sternotomy. Postoperative changes to the spine. IMPRESSION: No acute process. Chronic changes. The above report was generated using voice recognition software. It may contain grammatical, syntax or spelling errors. Electronically signed by: Samuel Lindo M.D. 05/06/2019 4:27 PM
[2019-05-06 16:29] LABS: Albumin Level 3.3 gm/dl (3.4-5.0); BUN Creatinine Ratio 17.4 (10-20); Calcium 9.8 mg/dl (8.5-10.1); Creatinine Clr Calc Pharmacy 32.3 ml/min; Est GFR (African American) 31.4; Est GFR (Non-African American) 27.1; Magnesium 2.1 mg/dl (1.8-2.4)
[2019-05-06 16:40] LABS: Albumin Globulin Ratio 0.9 (0.9-2); Bilirubin,Total 0.5 mg/dl (0.2-1); Globulin 3.6 gm/dl (2.5-4.0); Phosphorus 4.8 mg/dl (2.5-4.9); Thyroid Stimulating Hormone 4.24 uIu/ml (0.300-4.500); Total Protein 6.9 gm/dl (6.4-8.2); Troponin I 0.032 ng/ml (0-0.045)
--- NOTE | 2019-05-06 17:28 | CT Scan Report ---
CT OF THE HEAD WITHOUT CONTRAST CLINICAL HISTORY: Altered mental status COMPARISON STUDY: Head CT May 04, 2019 and April 14, 2019. CT DOSE: 614.27 mGy.cm TECHNIQUE: Helical axial images of the head were obtained without IV contrast. Automated exposure con trol was utilized for the study. A dose lowering technique was utilized adhering to the principles o f ALARA. FINDINGS: No acute intracranial hemorrhage, midline shift or mass effect is present. The ventricular system is unremarkable. The basilar cisterns are patent. No extra-axial collections are present. Ther e are no findings to suggest acute dural sinus thrombosis or acute territorial infarct. No significan t calvarial abnormalities are present. Right mastoid air cells are partially opacified. IMPRESSION: 1. No acute intracranial findings. 2. Right mastoid effusion, similar to prior exam. Electronically signed by: Chito Durand M.D. 05/06/2019 5:27 PM
[2019-05-06 17:41] LABS: Appearance Urine Turbid (Clear); Bacteria Urine Automated Negative (Negative); Bilirubin Urine Negative (Negative); Blood Urine 3+ (Negative); Color Urine Yellow; Epithelial Cell Urine Auto 0-5 /lpf (0-5); Glucose Urine UA Negative (Negative); Ketones Urine Trace (Negative); Leukocyte Esterase Urine 3+ (Negative); Nitrite Urine Negative (Negative); Protein Urine 1+ (Negative); Specific Gravity Urine 1.016 (1.000-1.030); Urobilinogen Urine Negative (Negative); WBC Urine Automated >30 /hpf (0-5)
--- NOTE | 2019-05-06 19:49 | Emergency Department Note ---
Entered by Rose Ybarra acting as a scribe for History of Present Illness General Chief complaint: Illness Time Seen by Provider: 05/06/19 15:11 Source: patient and family History of Present Illness Onset (ago): day(s) (a few days ago) Location: head Pain Consistency: + other (worsening) Maximum Pain Intensity: 6 Quality: + other (illness) Associated symptoms: + confusion, + loss of appetite and + other (foot ulcerat ion, hallucinations, sleeping all day, decreased urine output, dark urine, low blood pressure); no fever/chills (fever) The patient is a 68 year old male who presents to the Emergency Room with complaints of a worsening illness starting a few days ago. The patients family states that the patient has been at home with a PICC line being treated for a foot ulcer infection. They state that the patient has been seen multiple times over the last few months. They report that he was last here 2 days ago for back pain. They state that over the last few days, he has been having hallucinations and confusion. They report that they are worsening. They state that yesterday he was asking his daughter about her baby in the hospital, but she states that her baby has not been in the hospital. The patient states that he remembers asking about this because he was on the phone with who he thought was his daughter asking if she was still going to the constitution party. He states that she said yeah and told her that she had to go to see her baby in the hospital first. The patients daughter states that this never happened. The patients states that today he didnt recognize her and was asking who the man behind her was, but states that no one was behind her. She states that he has also been talking to people who have . The patient states that he isnt seeing these people who have passed, but is calling out to them to talk. The patients notes that when he was here 2 days ago they lowered his Metoprolol to help with his low blood pressure and lowered his Oxycodone to help with the confusion. She notes that both have continued to get worse. She states that when home health came today, they told her to bring him here because it wasnt getting better after consulting with the doctor caring for his ulcer. The patients daughter complains of the patient sleeping all day, not eating for 2 days, and not putting out a lot of urine. She notes that the urine he does put out in his Rojas is dark in color. The patient states that he feels fine. The patient and his family deny him having a fever. Home Medications Home Medications Medication Instructions Recorded Confirmed Type aspirin [Aspir-81] 81 mg PO QAM 12/01/18 05/06/19 History cholecalciferol (vitamin D3) 2,000 unit PO DAILY 12/01/18 05/06/19 History [Vitamin D3] finasteride [Proscar] 5 mg PO QAM 12/01/18 05/06/19 History metoprolol succinate [Toprol XL] 50 mg PO DAILY 12/01/18 05/06/19 History lidocaine 2 patch TRANSDERMAL DIRECTED 01/14/19 05/06/19 History Therems-M 1 tab PO DAILY 03/23/19 05/06/19 History ascorbic acid (vitamin C) [Vitamin 500 mg PO QAM 03/23/19 05/06/19 History C] melatonin 5 mg PO HS 03/23/19 05/06/19 History nystatin 1 applic EXT DAILY 03/23/19 05/06/19 History tamsulosin 0.4 mg capsule 0.4 mg PO HS #90 cap 03/30/19 05/06/19 Rx gabapentin [Neurontin] 100 mg PO BID 04/10/19 05/06/19 History levothyroxine [Synthroid] 25 mcg PO QAM 04/10/19 05/06/19 History pantoprazole [Protonix] 40 mg PO BID 04/10/19 05/06/19 History tramadol [Ultram] 50 mg PO Q4H PRN 04/10/19 05/06/19 History clopidogrel [Plavix] 75 mg PO QAM 04/12/19 05/06/19 History bumetanide 1 mg PO QAM #30 tab 04/20/19 05/06/19 Rx ciprofloxacin HCl 500 mg PO BID #28 tab 04/20/19 05/06/19 Rx daptomycin 500 mg IV DAILY #14 ea 04/20/19 05/06/19 Rx polyethylene glycol 3350 [Miralax] 17 g PO DAILY PRN #30 ea 04/20/19 05/06/19 Rx sacubitril-valsartan [Entresto] 1 tab PO BID #60 tab 04/20/19 05/06/19 Rx terbinafine HCl 1 applic EXT DAILY #1 tube 04/20/19 05/06/19 Rx quetiapine 25 mg tablet 25 mg PO HS tab 04/22/19 05/06/19 History ferrous sulfate 325 mg (65 mg 325 mg PO BIDM tab 04/27/19 05/06/19 History iron) tablet,delayed release docusate sodium 100 mg PO BID 05/04/19 05/06/19 History sodium hypochlorite [HySept] 1 applic TOPICAL DAILY 05/04/19 05/06/19 History vancomycin 125 mg PO UD 05/04/19 05/06/19 History oxycodone 5 mg tablet 5 mg PO TID #90 tab 05/05/19 05/06/19 Rx lorazepam 0.5 mg PO HS PRN 05/06/19 05/06/19 History losartan 25 mg PO DAILY 05/06/19 05/06/19 History Allergies Allergy/AdvReac Type Severity Reaction Status Date / Time lorazepam AdvReac Confusion Unverified 05/06/19 16:18 Past Med/Surg History Medical History Abscess in epidural space of lumbar spine Anemia Anxiety (Acute) CAD (coronary artery disease) CABG 2002 or so, severe multivessel disease - RI around time of paraspinal abscess earlier this year - medical mgmt of his CAD thus far Carotid artery stenosis (Acute) CHF (congestive heart failure) Chronic kidney disease, stage III (moderate) Chronic sinusitis SNUBBER 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 Admitted [facility] 10/18/11 for onset of incapacitating cervical myelopathy. Spinal tap showed SNUBBER Lyme disease, MRI showed severe spinal cord compression at C3-4 with myelomalacia and intramedullary mass. Pt had c-spine surgery, subsequent prolonged hospital admission, complicated post-op course. Depression (Acute) Diabetic peripheral neuropathy (Acute) Diabetic retinopathy (Acute) Disc degeneration, lumbar (Acute) Diverticulosis (Acute) Dysphagia Full dentures (Acute) History of femoral angiogram adequate blood flow to foot History of non-ST elevation myocardial infarction (NSTEMI) HTN (hypertension) (Acute) ICD (implantable cardioverter-defibrillator) in place Ischemic cardiomyopathy EF WNL 11/2017 EF this year consistantly 25-30% Restless legs syndrome (Acute) Spinal stenosis (Acute) Sudden cardiac Post-op 2011 [facility]. Now has ICD. Thyroid disorder (Acute) Vitamin D deficiency (Acute) Surgical History H/O cervical spine surgery (Acute) ACDI C3-4, C7 corpectomy, removal of C7 intramedullary mass. History of cardiac cath 2011 AT [facility] - UNSURE IF HE HAS STENTS. History of cataract extraction with lens replacement History of colonoscopy History of esophagogastroduodenoscopy (EGD) History of incision and drainage Lumbar spine on 08/11; complicated by difficult intubation with only #6.5 ETT able to be placed and patient kept intubated post op History of lumbar spinal fusion (Acute) History of lumbar surgery 09/10/18 Glidescope 3 okay visualization but difficulty passing ETT, unable to pass 8.0, able to pass 7.0 with some difficulty History of tracheostomy Hx of tonsillectomy (Acute) Hx of transurethral resection of prostate S/P triple vessel bypass (Acute) [facility], 2002 Family History Mother , age 68 of COPD and respiratory issues COPD (chronic obstructive pulmonary disease) Father , in his 40s of an RI Myocardial infarction Other Diabetes Hypertension No pertinent family history Social History Preferred Language: Djiboutian Communication Ability: Effective Visual Impairment: No Limitations Hearing Ability: Normal Match Up Worker Required: No Beliefs That Will Affect Care: Anabaptist Anabaptist Beliefs: yarsanism marital status: Current Living Situation: Spouse Current Living Situation Comment: lives at [facility] 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al status: retired and disabled 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: 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 and A total of 10 systems reviewed and were otherwise negative Physical Exam Vital Signs Vital Signs - 24 hr 05/06/19 14:32 05/06/19 15:00 05/06/19 15:30 Temperature 36.8 C Temperature Source Oral Pulse Rate 60 56 L 61 Pulse Rate from SpO2 Sensor 56 L 61 Respiratory Rate 18 15 14 Respiratory Effort / Characteristics Non-Labored Respiratory Depth Normal Respiratory Pattern Regular Blood Pressure 102/54 L 90/54 L 90/42 L Blood Pressure Mean 70 66 59 Pulse Oximetry 96 97 96 Oxygen Delivery Method Room Air Sepsis Recent Fever Within 48 Hours No Sepsis New/Unexplained Change in Mental Status No Sepsis Action Taken by Nursing No Action Required 05/06/19 16:31 05/06/19 16:39 05/06/19 17:00 Temperature Temperature Source Pulse Rate 57 L 55 L Pulse Rate from SpO2 Sensor Respiratory Rate 15 15 Respiratory Effort / Characteristics Respiratory Depth Respiratory Pattern Blood Pressure 102/53 L 103/45 L Blood Pressure Mean 78 61 Pulse Oximetry 94 Oxygen Delivery Method Room Air Sepsis Recent Fever Within 48 Hours Sepsis New/Unexplained Change in Mental Status Sepsis Action Taken by Nursing 05/06/19 17:22 05/06/19 17:30 05/06/19 18:00 Temperature Temperature Source Pulse Rate 57 L 56 L 54 L Pulse Rate from SpO2 Sensor 57 L 56 L 53 L Respiratory Rate 16 18 15 Respiratory Effort / Characteristics Respiratory Depth Respiratory Pattern Blood Pressure 93/51 L 98/51 L 112/47 L Blood Pressure Mean 62 67 54 Pulse Oximetry 93 93 93 Oxygen Delivery Method Sepsis Recent Fever Within 48 Hours Sepsis New/Unexplained Change in Mental Status Sepsis Action Taken by Nursing 05/06/19 19:00 05/06/19 19:30 05/06/19 20:00 Temperature Temperature Source Pulse Rate 56 L 56 L 56 L Pulse Rate from SpO2 Sensor Respiratory Rate 19 13 12 Respiratory Effort / Characteristics Respiratory Depth Respiratory Pattern Blood Pressure 97/53 L 91/78 L 90/40 L Blood Pressure Mean 59 83 59 Pulse Oximetry 94 Oxygen Delivery Method Room Air Sepsis Recent Fever Within 48 Hours Sepsis New/Unexplained Change in Mental Status Sepsis Action Taken by Nursing GENERAL: Awake, alert, chronically ill-appearing, in no distress HENT: Normocephalic, atraumatic. Oropharynx with dry mucous membranes and otherwise unremarkable. EYES: Normal conjunctiva. Sclera non-icteric. NECK: Supple. No nuchal rigidity. FROM. No JVD. RESPIRATORY: Clear to auscultation bilaterally. CARDIAC: Regular rate, normal rhythm. Extremities warm and well perfused. Pulses equal. ABDOMEN: Soft, non-distended. No tenderness to palpation. No rebound or guarding. No masses. RECTAL: Deferred. MUSCULOSKELETAL: Chest examination reveals no tenderness. The back is symmetrical on inspection without obvious abnormality. There is no CVA tenderness to palpation. No joint edema. LOWER EXTREMITIES: Calves are equal size bilaterally and non-tender. No edema. There is 3cm region of ecchymosis to distal anterior tibial region without warmth or crepitus. The patient's left heel exhibits a 5 cm heel ulceration with 1 cm central ulceration from recent debridement without any active discharge at this time. Biphasic dopplerable left DP pulse. NEURO: Alert to self and place. Mildly confused. No focal sensory or motor defic its noted. SKIN: No rash or jaundice noted. Course Course 1517: The patient was evaluated in room B12B. A complete history and physical exam was performed. 1801: I discussed the patient's case with Dr. Hinkle- [facility] [place]. She will evaluate the patient for further management. 1804: I reevaluated the patient and updated him and his family on his test results. I discussed the treatment plan with them. They verbally agree and understand. Administered Medications Ciprofloxacin (Cipro) 500 mg PO BID [facility] Stop: 06/17/19 21:39 Last Admin: 05/06/19 22:37 Dose: 500 mg Documented by: [id number] Docusate Sodium (Colace) 100 mg PO BID KAYLYNN Stop: 06/05/19 21:39 Last Admin: 05/06/19 22:37 Dose: 100 mg Documented by: [id number] Gabapentin (Neurontin) 100 mg PO BID KAYLYNN Stop: 06/05/19 21:39 Last Admin: 05/06/19 22:38 Dose: 100 mg Documented by: [id number] Heparin Sodium (Porcine) (Heparin Sodium (Porcine)) 5,000 units SQ Q12 KAYLYNN Stop: 06/05/19 21:39 Last Admin: 05/06/19 22:37 Dose: 5,000 units Documented by: [id number] Cosigned by: [id number] Miscellaneous (Remove Lidoderm Patch) 2 ea N/A DAILY@2100 KAYLYNN Stop: 06/05/19 21:39 Last Admin: 05/06/19 22:57 Dose: Not Given Documented by: [id number] Oxycodone HCl (Roxicodone Immediate Rel) 5 mg PO TID KAYLYNN Stop: 05/20/19 21:39 Last Admin: 05/06/19 22:57 Dose: 5 mg Documented by: [id number] Pantoprazole Sodium (Protonix) 40 mg PO BID KAYLYNN Stop: 06/05/19 21:39 Last Admin: 05/06/19 22:38 Dose: 40 mg Documented by: [id number] Quetiapine Fumarate (Seroquel) 25 mg PO HS KAYLYNN Stop: 06/05/19 21:39 Last Admin: 05/06/19 22:40 Dose: 25 mg Documented by: [id number] Sacubitril/Valsartan (Entresto 24/26mg) 1 tab PO BID KAYLYNN Stop: 06/05/19 21:39 Last Admin: 05/06/19 22:56 Dose: Not Given Documented by: [id number] Tamsulosin HCl (Flomax) 0.4 mg PO HS KAYLYNN Stop: 06/05/19 21:39 Last Admin: 05/06/19 22:37 Dose: 0.4 mg Documented by: [id number] Discontinued Medications Sodium Chloride (Nss) 250 mls @ 999 mls/hr IV .Q16M ONE Stop: 05/06/19 15:55 Last Infusion: 05/06/19 16:36 Dose: 0 mls/hr Documented by: [id number] Admin: 05/06/19 16:18 Dose: 999 mls/hr Documented by: [id number] Sodium Chloride (Nss) 250 mls @ 999 mls/hr IV .Q16M ONE Stop: 05/06/19 18:12 Last Infusion: 05/06/19 19:35 Dose: 0 mls/hr Documented by: [id number] Admin: 05/06/19 19:19 Dose: 999 mls/hr Documented by: [id number] Sodium Chloride (Nss 1000ml) 1,000 mls @ 80 mls/hr IV .[id number] KAYLYNN Stop: 06/05/19 21:39 Last Infusion: 05/06/19 22:59 Dose: 0 mls/hr Documented by: [id number] Admin: 05/06/19 22:11 Dose: 80 mls/hr Documented by: [id number] Medical Decision Making Differential Diagnosis Differential Diagnosis includes but is not limited to dehydration, stroke, anemia, hypoglycemia, hyponatremia, hypernatremia, urinary tract infection, pneumonia, bronchitis, sepsis, gastroenteritis, additional abdominal pathology, metabolic abnormalities and infections. Medical Records Attestation: I reviewed the patient's medical records. Home Medications Current Medication List: was personally reviewed by me Laboratory Data Attestation: I reviewed the patient's lab results. Result diagrams: 05/06/19 16:00 05/06/19 16:00 Lab Results 05/06/19 05/06/19 05/06/19 Range/Units 16:00 16:00 16:00 WBC 5.67 (4.8-10.8) K/uL RBC 3.44 L (4.7-6.1) M/uL Hgb 10.3 L (14.0-18.0) g/dL Hct 31.7 L (42-52) % MCV 92.2 (80-100) fL MCH 29.9 (25-34) pg MCHC 32.5 (32-36) g/dL RDW Std Deviation 52.4 H (36.4-46.3) fL RDW Coeff of Norbert 15.5 H (11.5-14.5) % Plt Count 171 (130-400) K/uL MPV 9.8 (7.4-10.4) fL Immature Gran % (Auto) 0.2 % Neut % (Auto) 61.0 % Lymph % (Auto) 16.4 % Baxter % (Auto) 14.3 % Eos % (Auto) 6.9 % Baso % (Auto) 1.2 % Immature Gran # (Auto) 0.01 (0.00-0.02) K/uL Neut # (Auto) 3.46 (1.4-6.5) K/uL Lymph # (Auto) 0.93 L (1.2-3.4) K/uL Baxter # (Auto) 0.81 H (0.11-0.59) K/uL Eos # (Auto) 0.39 (0-0.5) K/uL Baso # (Auto) 0.07 (0-0.2) K/uL PT 10.7 (9.0-12.0) Seconds INR 1.0 (0.9-1.1) APTT 27.1 (21.0-31.0) Seconds PTT Ratio 1.0 Sodium (136-145) mmol/L Potassium (3.5-5.1) mmol/L Chloride (98-107) mmol/L Carbon Dioxide (21-32) mmol/L Anion Gap (3-11) BUN (7-18) mg/dl Creatinine (0.6-1.4) mg/dl Est Cr Clr Drug Dosing ml/min Est GFR ( Amer) Est GFR (Non-Af Amer) BUN/Creatinine Ratio (10-20) Glucose (70-99) mg/dl Lactate 1.1 (0.4-2.0) mmol/L Calcium (8.5-10.1) mg/dl Phosphorus (2.5-4.9) mg/dl Magnesium (1.8-2.4) mg/dl Total Bilirubin (0.2-1) mg/dl AST (15-37) U/L ALT (12-78) U/L Alkaline Phosphatase (45-117) U/L Troponin I (0-0.045) ng/ml NT-Pro-B Natriuret Pep (0-900) pg/ml Total Protein (6.4-8.2) gm/dl Albumin (3.4-5.0) gm/dl Globulin (2.5-4.0) gm/dl Albumin/Globulin Ratio (0.9-2) TSH (0.300-4.500) uIu/ml Urine Color Urine Appearance (Clear) Urine pH (4.5-7.5) Ur Specific Hume (1.000-1.030) Urine Protein (Negative) Urine Glucose (UA) (Negative) Urine Ketones (Negative) Urine Blood (Negative) Urine Nitrite (Negative) Urine Bilirubin (Negative) Urine Urobilinogen (Negative) Ur Leukocyte Esterase (Negative) Urine WBC (Auto) (0-5) /hpf Urine RBC (Auto) (0-4) /hpf U Hyaline Cast (Auto) (0-5) /lpf U Epithel Cells (Auto) (0-5) /lpf Urine Bacteria (Auto) (Negative) Urine Crystals Urine Yeast (None Prsent) Hepatitis C Ab Screen (Neg) 05/06/19 05/06/19 05/06/19 Range/Units 16:00 16:05 17:28 WBC (4.8-10.8) K/uL RBC (4.7-6.1) M/uL Hgb (14.0-18.0) g/dL Hct (42-52) % MCV (80-100) fL MCH (25-34) pg MCHC (32-36) g/dL RDW Std Deviation (36.4-46.3) fL RDW Coeff of Norbert (11.5-14.5) % Plt Count (130-400) K/uL MPV (7.4-10.4) fL Immature Gran % (Auto) % Neut % (Auto) % Lymph % (Auto) % Baxter % (Auto) % Eos % (Auto) % Baso % (Auto) % Immature Gran # (Auto) (0.00-0.02) K/uL Neut # (Auto) (1.4-6.5) K/uL Lymph # (Auto) (1.2-3.4) K/uL Baxter # (Auto) (0.11-0.59) K/uL Eos # (Auto) (0-0.5) K/uL Baso # (Auto) (0-0.2) K/uL PT (9.0-12.0) Seconds INR (0.9-1.1) APTT (21.0-31.0) Seconds PTT Ratio Sodium 133 L (136-145) mmol/L Potassium 4.0 (3.5-5.1) mmol/L Chloride 96 L (98-107) mmol/L Carbon Dioxide 26 (21-32) mmol/L Anion Gap 11.0 (3-11) BUN 42 H (7-18) mg/dl Creatinine 2.40 H (0.6-1.4) mg/dl Est Cr Clr Drug Dosing 32.3 ml/min Est GFR ( Amer) 31.4 Est GFR (Non-Af Amer) 27.1 BUN/Creatinine Ratio 17.4 (10-20) Glucose 75 (70-99) mg/dl Lactate (0.4-2.0) mmol/L Calcium 9.8 (8.5-10.1) mg/dl Phosphorus 4.8 (2.5-4.9) mg/dl Magnesium 2.1 (1.8-2.4) mg/dl Total Bilirubin 0.5 (0.2-1) mg/dl AST 25 (15-37) U/L ALT 22 (12-78) U/L Alkaline Phosphatase 76 (45-117) U/L Troponin I 0.032 (0-0.045) ng/ml NT-Pro-B Natriuret Pep 5058 H (0-900) pg/ml Total Protein 6.9 (6.4-8.2) gm/dl Albumin 3.3 L (3.4-5.0) gm/dl Globulin 3.6 (2.5-4.0) gm/dl Albumin/Globulin Ratio 0.9 (0.9-2) TSH 4.240 (0.300-4.500) uIu/ml Urine Color Yellow Urine Appearance Turbid A (Clear) Urine pH 5.0 (4.5-7.5) Ur Specific Hume 1.016 (1.000-1.030) Urine Protein 1+ H (Negative) Urine Glucose (UA) Negative (Negative) Urine Ketones Trace H (Negative) Urine Blood 3+ H (Negative) Urine Nitrite Negative (Negative) Urine Bilirubin Negative (Negative) Urine Urobilinogen Negative (Negative) Ur Leukocyte Esterase 3+ H (Negative) Urine WBC (Auto) >30 H (0-5) /hpf Urine RBC (Auto) 10-30 H (0-4) /hpf U Hyaline Cast (Auto) 1-5 (0-5) /lpf U Epithel Cells (Auto) 0-5 (0-5) /lpf Urine Bacteria (Auto) Negative (Negative) Urine Crystals Not Reportable Urine Yeast Budding A (None Prsent) Hepatitis C Ab Screen Neg (Neg) Imaging Data Radiologist's Impression: Radiology results as stated below per my review and the radiologist's interpretation: XR chest 1V portable CLINICAL HISTORY: Sepsis dyspnea COMPARISON STUDY: 05/04/2019 FINDINGS: The lungs are clear. Mild stable cardiomegaly. Cardiac pacemaker in good position. Diaphragms are smooth. Prior median sternotomy. Postoperative changes to the spine. IMPRESSION: No acute process. Chronic changes. The above report was generated using voice recognition software. It may contain grammatical, syntax or spelling errors. Electronically signed by: Samuel Lindo M.D. 05/06/2019 4:[address] OF THE HEAD WITHOUT CONTRAST CLINICAL HISTORY: Altered mental status COMPARISON STUDY: Head CT May 04, 2019 and April 14, 2019. CT DOSE: 614.27 mGy.cm TECHNIQUE: Helical axial images of the head were obtained without IV contrast. Automated exposure control was utilized for the study. A dose lowering technique was utilized adhering to the principles of ALARA. FINDINGS: No acute intracranial hemorrhage, midline shift or mass effect is present. The ventricular system is unremarkable. The basilar cisterns are patent. No extra-axial collections are present. There are no findings to suggest acute dural sinus thrombosis or acute territorial infarct. No significant calvarial abnormalities are present. Right mastoid air cells are partially opacified. IMPRESSION: 1. No acute intracranial findings. 2. Right mastoid effusion, similar to prior exam. Electronically signed by: Chito Durand M.D. 05/06/2019 5:27 PM ECG Data Attestation: I personally reviewed and interpreted this ECG as follows: Indication: + altered mental status Rate (beats per minute): 60 Rhythm: + sinus rhythm ECG Intervals/blocks: + First degree AV block and + Right Bundle branch block ECG ST segments: no ST elevation ECG Findings: + Other (QT-c 480, QRS 162); no PACs and no PVCs Comparison ECG Date: from (05/04/2019) Change: no significant change Blood Pressure Blood Pressure Findings: Low blood pressure Blood Pressure Disposition: further management by hospitalist NATALIA Cartwright The patient is a pleasant 68-year-old gentleman with a past medical history of CHF with EF of 25%, CKD, history of PAD with recent treatment of left lower extremity extremity/heel osteomyelitis who presents emergency department for continued confusion in the setting of being treated for recurrence of his left heel osteomyelitis on course of daptomycin and ciprofloxacin per HPI. Of note, the patient was admitted from 04/14 to 04/21 for management of his osteomyelitis, management of his systolic heart failure with volume overload, metabolic encephalopathy believed to be secondary to the patient's infection. Today is the patient's third visit to the emergency department since this discharge. On arrival the patient is chronically ill-appearing but no acute distress, afebrile with heart rate in the 50s and blood pressure 90s/50s and otherwise stable. The patient is alert to self and place but does exhibit mild confusion. The patient has 1+ left lower extremity edema. Left foot soft boot and Gigi wrap was removed for inspection of his left foot and ankle. There is 3cm region of scant ecchymosis to distal anterior tibial region without warmth or crepitus. The patient's left heel exhibits a 5 cm heel ulceration with 1 cm central ulceration from recent debridement without any active discharge at this time. Biphasic dopplerable left DP pulse. EKG similar to prior without overt acute ischemia. Chest x-ray negative for acute process. CT head negative for acute process with previously identified mastoid effusion of unclear significance at this time. WBC and platelets within normal limits. H/H 10.3/31.7 similar to prior range of values. Creatinine 2.4 slightly increased from patient's recent values in the setting of his CKD. Electrolytes and LFTs unremarkable. Troponin within normal limits at 0.032. BNP 5K decreased from prior values. UA with WBCs from indwelling Rojas catheter but without bacteria. There is yeast noted. Unclear etiology to the patient's confusion at this time. Given the patient's mildly increased creatinine certainly could have a component of dehydration. Additionally given the patient's chronic osteomyelitis also could be related to his infection. Blood cultures were drawn with initial lab work. Given the patient's repeat ED visits following his recent admission reasonable to admit the patient for further management of the patient's confusion/encephalopathy. Family and patient are agreeable with this plan. Case was discussed with Dr. Hinkle, [facility] [place], who will evaluate the patient for admission. Of note, upon the hospitalist evaluation of the patient and examination of the patient's left foot and ankle there was question of whether or not the patient's anterior tibial ecchymosis was present before. On reevaluation this area did appear to have new redness extending beyond the initial 3 cm region appreciated on his initial evaluation. Thus this area was demarcated with a marking pen for close monitoring of any further progression. Impression & Plan Renal failure (ARF), acute on chronic, Metabolic encephalopathy, History of CHF (congestive heart failure), Chronic ulcer of left heel Discharge Plan Visit Data *Final* Discharge Date/Time: 05/06/19 20:50 Chief Complaint: Illness ED Provider: Alex Sultana Discharge Problem: Renal failure (ARF), acute on chronic, Metabolic encephalopathy, History of CHF (congestive heart failure), Chronic ulcer of left heel Patient Disposition: Admitted As Inpatient Discharge Instructions Interventions: ED Discharge Assessment Last Done: 05/06/19 20:50 Discharge Problem: Renal failure (ARF), acute on chronic Qualifiers: Acute renal failure type: unspecified Chronic kidney disease stage: unspecified stage Qualified Code(s): N17.9 - Acute kidney failure, unspecified Chronic ulcer of left heel Qualifiers: Non-pressure ulcer stage: unspecified non-pressure ulcer stage Qualified Code(s): L97.429 - Non-pressure chronic ulcer of left heel and midfoot with unspecified severity The scribe's documentation has been prepared under my direction and personally reviewed by me in its entirety. I confirm that the note above accurately reflects all work, treatment, procedures, and medical decision making performed by me.
--- NOTE | 2019-05-06 20:17 | History & Physical Report ---
Date of Service May 06, 2019 Assessment & Plan (1) Encephalopathy: Worsening encephalopathy. Admits to [facility] on telemetry. Vital signs every 4 hours Replenish electrolytes TTE pending BNP elevated patient appears to be in acute CHF exacerbation. DVT prophylaxis heparin 5000 units every 12 hours. Full code Present on Admission?: Yes (2) Dehydration: Patient receive IV fluid in the ER continue monitoring code. Present on Admission?: Yes (3) Acute hypotension: Resolved after receiving IV fluid. Present on Admission?: Yes (4) Polypharmacy: Altered mental status could be due to polypharmacy. Continue monitoring. Present on Admission?: Yes (5) Renal failure (ARF), acute on chronic: Worsening chronic CKD3. Avoid nephrotoxic agents. Continue monitoring creatinine and GFR. (6) History of CHF (congestive heart failure): Patient has elevated BNP. Continue home medicine: Clopidogrel 75 mg p.o. every morning, aspirin 81 mg p.o. every morning, metoprolol succinate 50 mg p.o. daily. Continue sacubitril/valsartan 1 mg p.o. twice daily. Strict in and out Daily weights Low-sodium diet. Present on Admission?: Yes (7) Chronic osteomyelitis of foot: Continue daptomycin, Cipro. Follow-up with Dr. Ndiaye infectious diseases and wound care. Present on Admission?: Yes (8) Acute UTI: Started ceftriaxone 2000 mg IV daily. Follow-up urine cultures. (9) Discharge planning issues: Patient already has set it up home health. Expecting discharge when clinically improved. Present on Admission?: Yes History of Present Illness Chief Complaint: Altered mental status Primary Care Provider: Edd Alvarez MD Patient is a 68 years old male with past medical history of neuropathy, diabetes mellitus type 2 with retinopathy, hypertension, coronary artery disease, CKD stage III, L3 vertebral fracture ,cough, now osteomyelitis of the left foot presents to the emergency room with a complaint of altered mental status. Patient is brought by his with stating that patient is not feeling any better. She was very concerned about patient wound that is not healing. Patient is at home on IV daptomycin for osteomyelitis oral Cipro, and vancomycin p.o. for C. difficile. Vancomycin p.o. should be adjusted per pharmacy since patient is tapering it off per recommendation of Dr. Ndiaye. Patient also has indwelling Rojas catheter and he is not able to walk due to previous spinal surgery. Patient supposed to be on Cipro for 30 days. Has home health. Labs are reviewed: WBCs 5.67, hemoglobin 10.3, hematocrit 31.7, platelets 171, PT 10.7, INR 1, APTT 27.1. Sodium 133, potassium 4, BUN 42, creatinine 2.4, GFR 27.1, lactate 1.1, BNP 5058, TSH 4.2., Urine 3+ blood, leukocyte esterase 3+, WBCs over 30, budding yeast. Patient had positive C. difficile toxin a last admission on 04/20/2019. Decision was made to admit patient to the [facility] on telemetry for further evaluation and treatment. Allergies Allergy/AdvReac Type Severity Reaction Status Date / Time lorazepam AdvReac Confusion Unverified 05/06/19 16:18 Home Medications Home Medications Medication Instructions Recorded Confirmed Type aspirin [Aspir-81] 81 mg PO QAM 12/01/18 05/06/19 History cholecalciferol (vitamin D3) 2,000 unit PO DAILY 12/01/18 05/06/19 History [Vitamin D3] finasteride [Proscar] 5 mg PO QAM 12/01/18 05/06/19 History metoprolol succinate [Toprol XL] 50 mg PO DAILY 12/01/18 05/06/19 History lidocaine 2 patch TRANSDERMAL DIRECTED 01/14/19 05/06/19 History Therems-M 1 tab PO DAILY 03/23/19 05/06/19 History ascorbic acid (vitamin C) [Vitamin 500 mg PO QAM 03/23/19 05/06/19 History C] melatonin 5 mg PO HS 03/23/19 05/06/19 History nystatin 1 applic EXT DAILY 03/23/19 05/06/19 History tamsulosin 0.4 mg capsule 0.4 mg PO HS #90 cap 03/30/19 05/06/19 Rx gabapentin [Neurontin] 100 mg PO BID 04/10/19 05/06/19 History levothyroxine [Synthroid] 25 mcg PO QAM 04/10/19 05/06/19 History pantoprazole [Protonix] 40 mg PO BID 04/10/19 05/06/19 History tramadol [Ultram] 50 mg PO Q4H PRN 04/10/19 05/06/19 History clopidogrel [Plavix] 75 mg PO QAM 04/12/19 05/06/19 History bumetanide 1 mg PO QAM #30 tab 04/20/19 05/06/19 Rx ciprofloxacin HCl 500 mg PO BID #28 tab 04/20/19 05/06/19 Rx daptomycin 500 mg IV DAILY #14 ea 04/20/19 05/06/19 Rx polyethylene glycol 3350 [Miralax] 17 g PO DAILY PRN #30 ea 04/20/19 05/06/19 Rx sacubitril-valsartan [Entresto] 1 tab PO BID #60 tab 04/20/19 05/06/19 Rx terbinafine HCl 1 applic EXT DAILY #1 tube 04/20/19 05/06/19 Rx quetiapine 25 mg tablet 25 mg PO HS tab 04/22/19 05/06/19 History ferrous sulfate 325 mg (65 mg 325 mg PO BIDM tab 04/27/19 05/06/19 History iron) tablet,delayed release docusate sodium 100 mg PO BID 05/04/19 05/06/19 History sodium hypochlorite [HySept] 1 applic TOPICAL DAILY 05/04/19 05/06/19 History vancomycin 125 mg PO UD 05/04/19 05/06/19 History oxycodone 5 mg tablet 5 mg PO TID #90 tab 05/05/19 05/06/19 Rx lorazepam 0.5 mg PO HS PRN 05/06/19 05/06/19 History losartan 25 mg PO DAILY 05/06/19 05/06/19 History Past Med/Surg History Medical History Abscess in epidural space of lumbar spine Anemia Anxiety (Acute) CAD (coronary artery disease) CABG 2002 or so, severe multivessel disease - [place] around time of paraspinal abscess earlier this year - medical mgmt of his CAD thus far Carotid artery stenosis (Acute) CHF (congestive heart failure) Chronic kidney disease, stage III (moderate) Chronic sinusitis HAND BLOCKER 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 Admitted [facility] 10/18/11 for onset of incapacitating cervical myelopathy. Spinal tap showed HAND BLOCKER Lyme disease, MRI showed severe spinal cord compression at C3-4 with myelomalacia and intramedullary mass. Pt had c-spine surgery, subsequent prolonged hospital admission, complicated post-op course. Depression (Acute) Diabetic peripheral neuropathy (Acute) Diabetic retinopathy (Acute) Disc degeneration, lumbar (Acute) Diverticulosis (Acute) Dysphagia Full dentures (Acute) History of femoral angiogram adequate blood flow to foot History of non-ST elevation myocardial infarction (NSTEMI) HTN (hypertension) (Acute) ICD (implantable cardioverter-defibrillator) in place Ischemic cardiomyopathy EF WNL 11/2017 EF this year consistantly 25-30% Restless legs syndrome (Acute) Spinal stenosis (Acute) Sudden cardiac Post-op 2011 [facility]. Now has ICD. Thyroid disorder (Acute) Vitamin D deficiency (Acute) Surgical History H/O cervical spine surgery (Acute) ACDI C3-4, C7 corpectomy, removal of C7 intramedullary mass. History of cardiac cath 2011 AT [facility] - UNSURE IF HE HAS STENTS. History of cataract extraction with lens replacement History of colonoscopy History of esophagogastroduodenoscopy (EGD) History of incision and drainage Lumbar spine on 08/11; complicated by difficult intubation with only #6.5 ETT able to be placed and patient kept intubated post op History of lumbar spinal fusion (Acute) History of lumbar surgery 09/10/18 Glidescope 3 okay visualization but difficulty passing ETT, unable to pass 8.0, able to pass 7.0 with some difficulty History of tracheostomy Hx of tonsillectomy (Acute) Hx of transurethral resection of prostate S/P triple vessel bypass (Acute) [facility], 2002 Family History Mother , age 68 of COPD and respiratory issues COPD (chronic obstructive pulmonary disease) Father , in his 40s of an [place] Myocardial infarction Other Diabetes Hypertension No pertinent family history Social History Preferred Language: Thai Communication Ability: Effective Visual Impairment: No Limitations Hearing Ability: Normal Water Hydrant Installer Required: No Beliefs That Will Affect Care: Buddhist Buddhist Beliefs: uatsdin marital status: Current Living Situation: Spouse Current Living Situation Comment: lives at [facility] 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al status: retired and disabled 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: 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 [employer] Other Information That Helps Us Care for You: No Feels Safe at Home: Yes Safety Concerns: Feels Safe At This Time Smoking Status: Former smoker Tobacco Type: smokeless tobacco ; Second Hand Exposure: No ; Hx Alcohol Use: No Hx Substance Use: No Review of Systems Review of Systems: All systems reviewed & are unremarkable except as noted in HPI & below Physical Exam Constitutional: WD/WN, vitals as above well developed ENMT: external ear and nose normal, oropharynx normal Neck: trachea midline, no thyromegaly Respiratory: normal respiratory effort, lungs clear to auscultation Cardiovascular: RRR, no murmur, no edema Chest (Breasts): normal inspection/palpation of breasts Additional Comments: Pacemaker left chest Gastrointestinal (Abdomen): normal bowel sounds, soft, nontender, no hepatosplenomegaly Musculoskeletal: no cyanosis or clubbing, extremities motor strength 5/5 Left calcaneus ulcer with eschar, nonbleeding. There is discoloration of the skin on the dorsum of the left foot. Skin: no rashes, warm and dry Neurologic: patellar DTR's 2+ bilat, sensation intact Psychiatric: A+Ox3, euthymic affect Lymphatic: no cervical or axillary lymphadenopathy Results & Data Vital Signs (Past 12 Hours) Vital Signs Temp Pulse Resp BP Pulse Ox 05/06/19 19:30 56 L 13 91/78 L 05/06/19 19:00 56 L 19 97/53 L 05/06/19 18:00 54 L 15 112/47 L 93 05/06/19 17:30 56 L 18 98/51 L 93 05/06/19 17:22 57 L 16 93/51 L 93 05/06/19 17:00 55 L 15 103/45 L 05/06/19 16:39 94 05/06/19 16:31 57 L 15 102/53 L 05/06/19 15:30 61 14 90/42 L 96 05/06/19 15:00 56 L 15 90/54 L 97 05/06/19 14:32 36.8 C 60 18 102/54 L 96 Code Status & VTE Plan Code Status Full code VTE Prophylaxis Plan VTE Prophylaxis will be ordered: Yes PG Care Time/CCT Total # of Minutes Spent Total Time Spent with Patient: Total time spent is greater than 50% in coordination of care (as documented) at patient's floor/unit and/or counseling patient: (1) Renal failure (ARF), acute on chronic Acute renal failure type: unspecified Chronic kidney disease stage: unspecified stage Qualified Code(s): N17.9 - Acute kidney failure, unspecified; N18.9 - Chronic kidney disease, unspecified
[2019-05-06] MEDS ORDERED: NON-FORMULARY MEDICATION (Vancomycin 125 MG) PO SCH (21:40)
[2019-05-06] MEDS ORDERED: SODIUM CHLORIDE 0.9% 1000ML 1,000 ML IV SCH (21:40)
[2019-05-06] MEDS ORDERED: ONDANSETRON INJ 2 MG/ML 2 ML VIAL IV PRN (21:40)
[2019-05-06] MEDS ORDERED: ACETAMINOPHEN 325 MG TAB PO PRN (21:40)
[2019-05-06] MEDS ORDERED: POLYETHYLENE (MIRALAX) 17 GM PACK PO PRN ×2 (21:40)
[2019-05-06] MEDS ORDERED: TRAMADOL HCL 50 MG TABLET PO PRN (21:40)
[2019-05-06] MEDS ORDERED: LORazepam 0.5 MG TAB PO PRN (21:40)
[2019-05-06] MEDS ORDERED: MoRPHine SULFATE 2 MG/ML CARP IV PRN (21:40)
[2019-05-06] MEDS ORDERED: NON-FORMULARY MEDICATION (Melatonin 5 MG) PO SCH (21:40)
[2019-05-06] MEDS ORDERED: ALUMINUM/MAGNESIUM SUSP 30 ML UDC PO PRN (21:40)
[2019-05-06] MEDS ORDERED: MAGNESIUM HYDROXIDE SUSP 30 ML UDC PO PRN (21:40)
[2019-05-06] MEDS: CIPROFLOXACIN 500 MG TAB PO SCH (22:37)
[2019-05-06] MEDS: HEPARIN SOD 5,000 UNIT/0.5 ML VIAL SQ SCH (22:37)
[2019-05-06] MEDS: DOCUSATE SODIUM 100 MG CAP PO SCH (22:37)
[2019-05-06] MEDS: TAMSULOSIN HCL 0.4 MG CAP PO SCH (22:37)
[2019-05-06] MEDS: PANTOprazole 40 MG TAB PO SCH (22:38)
[2019-05-06] MEDS: GABAPENTIN 100 MG CAP PO SCH (22:38)
[2019-05-06] MEDS: QUETIAPINE FUMARATE 25 MG TABLET PO SCH (22:40)
[2019-05-06] MEDS: SACUBITRIL-VALSARTAN 24-26 MG TAB PO SCH (22:56)
[2019-05-06] MEDS: OXYCODONE HCL IR 5 MG TAB (IMMEDIATE RELEASE) PO SCH (22:57)
[2019-05-07] MEDS: LEVOTHYROXINE SODIUM 25 MCG TABLET PO SCH (05:58)
[2019-05-07] MEDS ORDERED: DAPTOMYCIN CONSULT ACTIVE PRN (06:26)
[2019-05-07 06:33] LABS: Basophils # (auto) 0.03 K/uL (0-0.2); Basophils % (auto) 0.6 %; Eosinophils % (auto) 6.1 %; Hematocrit (blood only) 30.3 % (42-52); Immature Granulocytes # (auto) 0.02 K/uL (0.00-0.02); Immature Granulocytes % (auto) 0.4 %; Lymphocytes # (auto) 0.95 K/uL (1.2-3.4); Lymphocytes % (auto) 19.2 %; Mean Corpuscular Hemoglobin 30.3 pg (25-34); Mean Corpuscular Volume 91.8 fL (80-100); Mean Platelet Volume 9.1 fL (7.4-10.4); Monocytes # (auto) 0.74 K/uL (0.11-0.59); Neutrophils % (auto) 58.7 %; Platelet Count 153 K/uL (130-400); RDW Coefficient of Variation 15.3 % (11.5-14.5); RDW Standard Deviation 51.7 fL (36.4-46.3); White Blood Count 4.94 K/uL (4.8-10.8)
[2019-05-07 07:28] LABS: Albumin Level 3.2 gm/dl (3.4-5.0); BUN Creatinine Ratio 17.6 (10-20); Calcium 9.6 mg/dl (8.5-10.1); Creatinine Clr Calc Pharmacy 31.3 ml/min; Est GFR (Non-African American) 25.9; Potassium 3.9 mmol/L (3.5-5.1)
[2019-05-07 07:31] LABS: Bilirubin,Total 0.5 mg/dl (0.2-1); Globulin 3.2 gm/dl (2.5-4.0); Total Protein 6.4 gm/dl (6.4-8.2)
--- NOTE | 2019-05-07 07:40 | Infectious Disease Consult ---
Date of Consultation May 07, 2019 Assessment & Plan (1) Osteomyelitis of foot: continue current abx. no new ID recs at this time. [place] surgical [place] [facility] History of Present Illness Attending Physician: Malik Fernandez MD pt admitted with change in mental status. He has foot osteo, previous cultures growing MRSA and pseucomonas, he is currently on dapto at home and po cipro. he is on po vanco as well for h/o c diff. He last saw Dr. Ndiaye on 05/01 - plan is to continue current abx and follow with surgery at [facility] to discuss surgical options for foot infection. he denies f/c. no pain in foot. states he would like to leave hospital so he can make his appointment. Denies cp, sob, cough, no abd pain, no n/v/d. no gu synptoms, luna in place, UA >30 wbc, no bacteria noted, unclear when last luna change was. He has no pain in foot, no drainage. tolerating abx, wbc normal, creat elevated. last ESR on 04/26 26 Allergies Allergy/AdvReac Type Severity Reaction Status Date / Time lorazepam AdvReac Confusion Unverified 05/06/19 16:18 Home Medications Home Medications Medication Instructions Recorded Confirmed Type aspirin [Aspir-81] 81 mg PO QAM 12/01/18 05/06/19 History cholecalciferol (vitamin D3) 2,000 unit PO DAILY 12/01/18 05/06/19 History [Vitamin D3] finasteride [Proscar] 5 mg PO QAM 12/01/18 05/06/19 History metoprolol succinate [Toprol XL] 50 mg PO DAILY 12/01/18 05/06/19 History lidocaine 2 patch TRANSDERMAL DIRECTED 01/14/19 05/06/19 History Therems-M 1 tab PO DAILY 03/23/19 05/06/19 History ascorbic acid (vitamin C) [Vitamin 500 mg PO QAM 03/23/19 05/06/19 History C] melatonin 5 mg PO HS 03/23/19 05/06/19 History nystatin 1 applic EXT DAILY 03/23/19 05/06/19 History tamsulosin 0.4 mg capsule 0.4 mg PO HS #90 cap 03/30/19 05/06/19 Rx gabapentin [Neurontin] 100 mg PO BID 04/10/19 05/06/19 History levothyroxine [Synthroid] 25 mcg PO QAM 04/10/19 05/06/19 History pantoprazole [Protonix] 40 mg PO BID 04/10/19 05/06/19 History tramadol [Ultram] 50 mg PO Q4H PRN 04/10/19 05/06/19 History clopidogrel [Plavix] 75 mg PO QAM 04/12/19 05/06/19 History bumetanide 1 mg PO QAM #30 tab 04/20/19 05/06/19 Rx ciprofloxacin HCl 500 mg PO BID #28 tab 04/20/19 05/06/19 Rx daptomycin 500 mg IV DAILY #14 ea 04/20/19 05/06/19 Rx polyethylene glycol 3350 [Miralax] 17 g PO DAILY PRN #30 ea 04/20/19 05/06/19 Rx sacubitril-valsartan [Entresto] 1 tab PO BID #60 tab 04/20/19 05/06/19 Rx terbinafine HCl 1 applic EXT DAILY #1 tube 04/20/19 05/06/19 Rx quetiapine 25 mg tablet 25 mg PO HS tab 04/22/19 05/06/19 History ferrous sulfate 325 mg (65 mg 325 mg PO BIDM tab 04/27/19 05/06/19 History iron) tablet,delayed release docusate sodium 100 mg PO BID 05/04/19 05/06/19 History sodium hypochlorite [HySept] 1 applic TOPICAL DAILY 05/04/19 05/06/19 History vancomycin 125 mg PO UD 05/04/19 05/06/19 History oxycodone 5 mg tablet 5 mg PO TID #90 tab 05/05/19 05/06/19 Rx lorazepam 0.5 mg PO HS PRN 05/06/19 05/06/19 History losartan 25 mg PO DAILY 05/06/19 05/06/19 History Patient History Medical History Abscess in epidural space of lumbar spine Anemia Anxiety (Acute) CAD (coronary artery disease) CABG 2002 or so, severe multivessel disease - [place] around time of paraspinal abscess earlier this year - medical mgmt of his CAD thus far Carotid artery stenosis (Acute) CHF (congestive heart failure) Chronic kidney disease, stage III (moderate) 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 Admitted [facility] 10/18/11 for onset of incapacitating cervical myelopathy. 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 Pt had c-spine surgery, subsequent prolonged hospital admission, complicated post-op course. Depression (Acute) Diabetic peripheral neuropathy (Acute) Diabetic retinopathy (Acute) Disc degeneration, lumbar (Acute) Diverticulosis (Acute) Dysphagia Full dentures (Acute) History of femoral angiogram adequate blood flow to foot History of non-ST elevation myocardial infarction (NSTEMI) HTN (hypertension) (Acute) ICD (implantable cardioverter-defibrillator) in place Ischemic cardiomyopathy EF WNL 11/2017 EF this year consistantly 25-30% Restless legs syndrome (Acute) Spinal stenosis (Acute) Sudden cardiac Post-op 2011 [facility]. Now has ICD. Thyroid disorder (Acute) Vitamin D deficiency (Acute) Surgical History H/O cervical spine surgery (Acute) ACDI C3-4, C7 corpectomy, removal of C7 intramedullary mass. History of cardiac cath 2011 AT [facility] - UNSURE IF HE HAS STENTS. History of cataract extraction with lens replacement History of colonoscopy History of esophagogastroduodenoscopy (EGD) History of incision and drainage Lumbar spine on 08/11; complicated by difficult intubation with only #6.5 ETT able to be placed and patient kept intubated post op History of lumbar spinal fusion (Acute) History of lumbar surgery 09/10/18 Glidescope 3 okay visualization but difficulty passing ETT, unable to pass 8.0, able to pass 7.0 with some difficulty History of tracheostomy Hx of tonsillectomy (Acute) Hx of transurethral resection of prostate S/P triple vessel bypass (Acute) [facility] Family History Mother , age 68 of COPD and respiratory issues COPD (chronic obstructive pulmonary disease) Father , in his 40s of an [place] Myocardial infarction Other Diabetes Hypertension No pertinent family history Social History Preferred Language: Arabic Communication Ability: Effective Visual Impairment: No Limitations Hearing Ability: Normal Precision Farming Coordinator Required: No Beliefs That Will Affect Care: Anabaptist Anabaptist Beliefs: roman catholic marital status: Current Living Situation: Spouse Current Living Situation Comment: lives at [facility] 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al status: retired and disabled 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: 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 [employer] Other Information That Helps Us Care for You: No Feels Safe at Home: Yes Safety Concerns: Feels Safe At This Time Smoking Status: Former smoker Tobacco Type: smokeless tobacco ; Second Hand Exposure: No ; Hx Alcohol Use: No Hx Substance Use: No Review of Systems Review of Systems: All systems reviewed & are unremarkable except as noted in HPI & below Physical Exam Constitutional: WD/WN, vitals as above Eyes: PERRL, conjunctivae normal, anicteric sclerae ENMT: external ear and nose normal, oropharynx normal Neck: normal visual inspection Respiratory: normal respiratory effort, lungs clear to auscultation Cardiovascular: RRR, no murmur, no edema Gastrointestinal (Abdomen): normal bowel sounds, soft, nontender, no hepatosplenomegaly Musculoskeletal: no cyanosis or clubbing, extremities motor strength 5/5 Skin: no rashes, warm and dry Psychiatric: A+Ox3, euthymic affect Results & Data Vital Signs (Past 12 Hours) Vital Signs Temp Pulse Pulse Resp BP BP Pulse Ox 05/07/19 03:35 36.4 C L 54 L 20 100/60 98 05/06/19 23:45 55 L 05/06/19 23:18 36.5 C 58 L 18 100/59 L 96 05/06/19 21:40 36.8 C 56 L 18 97/54 L 99 05/06/19 20:30 56 L 15 105/49 L 95 05/06/19 20:00 56 L 12 90/40 L 94 PG Care Time/CCT Total # of Minutes Spent Total Time Spent with Patient: Total time spent is greater than 50% in coordination of care (as documented) at patient's floor/unit and/or counseling patient: (1) Osteomyelitis of foot Laterality: left Osteomyelitis type: unspecified type Qualified Code(s): M86.9 - Osteomyelitis, unspecified
[2019-05-07] MEDS ORDERED: LOSARTAN POTASSIUM 25 MG TAB PO SCH (09:00)
[2019-05-07] MEDS ORDERED: BUMETANIDE 1 MG in SYRINGE 0 ML IV SCH (09:00)
[2019-05-07] MEDS ORDERED: BUMETANIDE 1 MG TAB PO SCH (09:00)
[2019-05-07] MEDS ORDERED: DAPTOmycin 500 MG VIAL IV SCH (09:00)
[2019-05-07] MEDS: OXYCODONE HCL IR 5 MG TAB (IMMEDIATE RELEASE) PO SCH ×3 (09:54→20:47)
[2019-05-07] MEDS: DOCUSATE SODIUM 100 MG CAP PO SCH ×2 (09:54→20:56)
[2019-05-07] MEDS: FERROUS SULFATE 325 MG TAB PO SCH ×2 (09:55→16:54)
[2019-05-07] MEDS: CIPROFLOXACIN 500 MG TAB PO SCH ×2 (09:59→20:51)
[2019-05-07] MEDS: DAKIN'S SOLN 0.25% HALF STRENGTH 473ML BTL EXT SCH (10:06)
[2019-05-07] MEDS: LIDOCAINE 5% 1 PATCH TD SCH (10:07)
[2019-05-07] MEDS: ASPIRIN 81 MG ECTAB PO SCH (10:07)
[2019-05-07] MEDS: TERBINAFINE CR 30 GM TUBE EXT SCH (10:08)
[2019-05-07] MEDS: CEROVITE ADV FORMULA TAB PO SCH (10:10)
[2019-05-07] MEDS: NYSTATIN OINT 15 GM TUBE EXT SCH (10:10)
[2019-05-07] MEDS: GABAPENTIN 100 MG CAP PO SCH ×2 (10:12→20:52)
[2019-05-07] MEDS: CLOPIDOGREL BISULFATE 75 MG TAB PO SCH (10:12)
[2019-05-07] MEDS: FINASTERIDE 5 MG TAB PO SCH (10:13)
[2019-05-07] MEDS: PANTOprazole 40 MG TAB PO SCH ×2 (10:14→20:53)
[2019-05-07] MEDS: METOPROLOL SUCC 50MG EXT REL TAB PO SCH (10:14)
[2019-05-07] MEDS: ASCORBIC ACID 500 MG TAB PO SCH (10:15)
[2019-05-07] MEDS: CHOLECALCIFEROL 1,000 UNITS TAB PO SCH (10:15)
[2019-05-07] MEDS: DAPTOmycin 400 MG in SYRINGE 0 ML IV SCH (10:31)
[2019-05-07] MEDS: HEPARIN SOD 5,000 UNIT/0.5 ML VIAL SQ SCH ×2 (10:32→20:54)
[2019-05-07] MEDS: SACUBITRIL-VALSARTAN 24-26 MG TAB PO SCH (10:35)
[2019-05-07] MEDS: RASPBERRY SYRUP 5 ML UDP PO SCH ×2 (12:50→20:51)
[2019-05-07] MEDS: VANCOMYCIN HCL 125 MG/2.5ML SOLN PO SCH ×2 (12:51→20:51)
--- NOTE | 2019-05-07 13:12 | Hospitalist Progress Note ---
Date of Service May 07, 2019 Assessment & Plan (1) Encephalopathy: Improving May have been due to combination of polypharmacy and hypotension (2) Dehydration: Patient received IV fluid in the ER (3) Acute hypotension: Improved IVF as above, held Bumex. Patient had both losartan and Entresto on his home medication list which may have been partially responsible. Continue metoprolol (4) Polypharmacy: (5) Renal failure (ARF), acute on chronic: Creatinine 2.5 Worsening chronic CKD3. Hold Bumex as above. Will avoid further IVF due to history of CHF. Avoid nephrotoxic agents. Repeat bmp am (6) History of CHF (congestive heart failure): Patient has elevated BNP but this may be near baseline as he has no other BNP values below this one in our record Continue home medicine: Clopidogrel 75 mg p.o. every morning, aspirin 81 mg p.o. every morning, metoprolol succinate 50 mg p.o. daily. Continue sacubitril/valsartan 1 mg p.o. twice daily. Strict in and out Daily weights Low-sodium diet. (7) Chronic osteomyelitis of foot: Continue daptomycin, Cipro. ID consulted (8) Acute UTI: DC ceftriaxone - UA growing rajendra albicans (9) Discharge planning issues: Planning for home health at this point, will continue to evaluate Supervising Physician Co-Signing Physician Notes I supervised Winter Loredo NP on this patient's care. I examined the patient today independently of her. I discussed the plan of care with her with the plan being as written in her note except for any following changes/exceptions: None. Left foot looks has patchy look. Unsure of reason, but concern for infection. CT scan shows further bone erosions concerning for progressive osteomyelitis. Ortho consulted. Subjective Mr. Cooper is more oriented than on admission however he still has some confusion. He is having pain at the site of his osteomyelitis. ROS Constitutional: no chills, aches, sweats or fever Respiratory: no sob,cough, sputum, or wheezing Cardiac: no chest pain, palpitations, edema, orthopnea or lightheadedness GI: no abdominal pain, nausea, vomiting, diarrhea or constipation : no dysuria or hesitancy Extremities: no joint pain or weakness Skin: no rash All other systems reviewed and negative Physical Exam Physical Exam: General: no distress Eyes: normal inspection, PERLL Respiratory: chest non tender, clear to auscultation, normal breath sounds, no respiratory distress, no accessory muscle use Cardiac: regular rate and rhythm, no rub or gallop, no murmur, no edema, no jvd GI/: active bowel sounds, no abd pain or tenderness, soft, non distended Extremities: normal range of motion, normal strength, non tender Neuro/Psych: alert and oriented x 3, some confusion, flat affect Skin: normal color, dry, left heel with swan open area surrounded by slough, right dorsal ankle with large ecchymotic/erythematous/rash with blistering. Results & Data Vital Signs (Past 12 Hours) Vital Signs Temp Pulse Resp BP Pulse Ox 05/07/19 09:51 56 L 100/56 L 05/07/19 07:57 36.8 C 53 L 18 82/49 L 98 05/07/19 03:35 36.4 C L 54 L 20 100/60 98 PG Care Time/CCT Total # of Minutes Spent Total Time Spent with Patient: Total time spent is greater than 50% in coordination of care (as documented) at patient's floor/unit and/or counseling patient: (1) Renal failure (ARF), acute on chronic Acute renal failure type: unspecified Chronic kidney disease stage: unspecified stage Qualified Code(s): N17.9 - Acute kidney failure, unspecified; N18.9 - Chronic kidney disease, unspecified
--- NOTE | 2019-05-07 18:49 | CT Scan Report ---
CT foot LT wo con CLINICAL HISTORY: 68 years-old Male presenting with chronic osteomyelitis, marker placed at the site of clinical concern on the anterior foot as well as markers at the ankle. TECHNIQUE: Multidetector CT of the left foot was performed without the use of intravenous contrast. I V contrast: None. One or more dose lowering techniques were used consistent with the principles of AL FRANCK (as low as reasonably achievable), including automatic exposure control, mA or kV adjustment to i ndividual patient size, and/or use of iterative reconstruction. COMPARISON: 02/02/2019 and plain radiographs from 04/26/2019. CT DOSE (mGy.cm): The estimated cumulative dose is 268.24 mGy.cm. FINDINGS: Automotive Service Director topogram: Unremarkable. A marker is in place over the dorsum of the forefoot. At this site, there is no wandy ulceration that is apparent by CT. No abnormality of the subjacent subcutaneous tissue apart from the diffuse subcut aneous edema not confined of the single region. Additional markers over the anterior ankle with a similar appearance, no wandy ulceration and no diff erentiating subcutaneous abnormality. There are however adjacent blisters between these 2 markers. As mentioned, diffuse nonspecific subcutaneous edema. Redemonstration of the ulceration of the skin and subcutaneous tissue overlying the heel with osseous dissolution of the posterior calcaneus. The degree of osseous erosion has significantly increased fr om prior. No additional site of osseous erosion or periosteal reaction. No acute fracture or malalign ment. No advanced degenerative change. Diffuse muscle atrophy. Atherosclerosis. IMPRESSION: 1. Apparent interval progression of osteomyelitis at the posterior calcaneus in comparison to prior CT subjacent to the heel ulceration. Postsurgical changes were evident on prior radiograph potentiall y with hyperdense implanted material, not apparent on the current exam. Therefore, some degree of the osteolysis on this examination could potentially relate to curettage if there has been surgical inte rvention though persistent infection is not excluded. 2. Anterior sites of clinical concern over the ankle, midfoot, and forefoot are without specific sub jacent abnormality apart from the diffuse nonspecific subcutaneous edema. Correlate clinically to exc lude cellulitis. 3. Few blisters noted over the anterior hindfoot-midfoot. 4. No acute fracture or advanced degenerative change. Electronically signed by: Benson Junior M.D. 05/07/2019 6:48 PM
[2019-05-07] MEDS ORDERED: OXYCODONE/ACETAMINOPHEN 5mg/325mg TAB PO PRN (20:48)
[2019-05-07] MEDS: QUETIAPINE FUMARATE 25 MG TABLET PO SCH (20:54)
[2019-05-07] MEDS: TAMSULOSIN HCL 0.4 MG CAP PO SCH (20:54)
[2019-05-08] MEDS: LEVOTHYROXINE SODIUM 25 MCG TABLET PO SCH (05:49)
[2019-05-08 06:02] LABS: Basophils # (auto) 0.04 K/uL (0-0.2); Basophils % (auto) 0.8 %; Eosinophils % (auto) 7.8 %; Hematocrit (blood only) 30.5 % (42-52); Hemoglobin 9.8 g/dL (14.0-18.0); Immature Granulocytes # (auto) 0.01 K/uL (0.00-0.02); Immature Granulocytes % (auto) 0.2 %; Lymphocytes # (auto) 1.18 K/uL (1.2-3.4); Mean Corpuscular Hemoglobin 29.9 pg (25-34); Mean Corpuscular Hgb Conc 32.1 g/dL (32-36); Mean Platelet Volume 9.3 fL (7.4-10.4); Monocytes # (auto) 0.78 K/uL (0.11-0.59); Monocytes % (auto) 15.2 %; Neutrophils # (auto) 2.72 K/uL (1.4-6.5); Platelet Count 146 K/uL (130-400); RDW Coefficient of Variation 15.3 % (11.5-14.5); RDW Standard Deviation 51.9 fL (36.4-46.3); Red Blood Count 3.28 M/uL (4.7-6.1); White Blood Count 5.13 K/uL (4.8-10.8)
[2019-05-08 06:39] LABS: Albumin Level 3.1 gm/dl (3.4-5.0); BUN Creatinine Ratio 18.2 (10-20); Calcium 9.5 mg/dl (8.5-10.1); Creatinine Clr Calc Pharmacy 30.2 ml/min; Est GFR (African American) 29.3; Est GFR (Non-African American) 25.3; Potassium 3.7 mmol/L (3.5-5.1)
[2019-05-08 06:41] LABS: Albumin Globulin Ratio 0.9 (0.9-2); Bilirubin,Total 0.4 mg/dl (0.2-1); Globulin 3.4 gm/dl (2.5-4.0); Total Protein 6.5 gm/dl (6.4-8.2)
[2019-05-08] MEDS ORDERED: PERFLUTREN LIPID MICROSPHERE (DEFINITY) IV ONE (07:31)
[2019-05-08 07:36] LABS: Estimated Average Glucose 120 mg/dl; Hemoglobin A1C 5.8 % (4.5-5.6)
[2019-05-08] MEDS: DOCUSATE SODIUM 100 MG CAP PO SCH (09:23)
[2019-05-08] MEDS ORDERED: TRAMADOL HCL 50 MG TABLET PO PRN (09:23)
[2019-05-08] MEDS: FERROUS SULFATE 325 MG TAB PO SCH ×2 (09:24→16:47)
[2019-05-08] MEDS: VANCOMYCIN HCL 125 MG/2.5ML SOLN PO SCH (09:25)
[2019-05-08] MEDS: ASPIRIN 81 MG ECTAB PO SCH (09:26)
[2019-05-08] MEDS: FINASTERIDE 5 MG TAB PO SCH (09:26)
[2019-05-08] MEDS: CHOLECALCIFEROL 1,000 UNITS TAB PO SCH (09:26)
[2019-05-08] MEDS: ASCORBIC ACID 500 MG TAB PO SCH (09:26)
[2019-05-08] MEDS: DAPTOmycin 400 MG in SYRINGE 0 ML IV SCH (09:26)
[2019-05-08] MEDS: METOPROLOL SUCC 50MG EXT REL TAB PO SCH (09:27)
[2019-05-08] MEDS: CLOPIDOGREL BISULFATE 75 MG TAB PO SCH (09:27)
[2019-05-08] MEDS: PANTOprazole 40 MG TAB PO SCH (09:28)
[2019-05-08] MEDS: GABAPENTIN 100 MG CAP PO SCH (09:28)
[2019-05-08] MEDS: CEROVITE ADV FORMULA TAB PO SCH (09:28)
[2019-05-08] MEDS: LIDOCAINE 5% 1 PATCH TD SCH (09:29)
[2019-05-08] MEDS: TERBINAFINE CR 30 GM TUBE EXT SCH (09:30)
[2019-05-08] MEDS: HEPARIN SOD 5,000 UNIT/0.5 ML VIAL SQ SCH (09:31)
[2019-05-08] MEDS: DAKIN'S SOLN 0.25% HALF STRENGTH 473ML BTL EXT SCH (09:31)
[2019-05-08] MEDS: CIPROFLOXACIN 500 MG TAB PO SCH (09:32)
[2019-05-08] MEDS: NYSTATIN OINT 15 GM TUBE EXT SCH (09:34)
[2019-05-08] MEDS: RASPBERRY SYRUP 5 ML UDP PO SCH (09:34)
--- NOTE | 2019-05-08 10:29 | Orthopedic Consultation ---
Date of Consultation May 08, 2019 Assessment & Plan (1) Chronic osteomyelitis of left foot: I had a very long discussion today with the patient and his about this difficult situation. They are set up with the [facility] system with a plastic surgeon and pasteuriser operator for potential surgical planning. No surgical plan is in place at this point. Is unclear to me whether the [facility] team feels like this foot is salvageable. My impression is that he certainly does not seem to be a good candidate for a free flap surgical coverage of this heel ulcer with his very significant peripheral arterial disease. I had a wandy discussion with him and his daughter that even if the free flap survived the initial surgery, it would be very difficult for the free flap to stand up to chronic pressure of weightbearing on the heel. My impression is that the most reliable and definitive surgical treatment option for him would be a below-knee amputation. I did offer this to them on a semi-elective basis this weekend. I did advise him that if he becomes systemically ill or shows signs of significant spread of this infection, we may have to be forced to do this amputation this weekend on a more urgent basis. I am very concerned about this new area of blistering and ecchymosis on the anterior ankle. I would recommend new ESR and CRP to evaluate for systemic spread of this infection. If he does remain stable through the weekend, then he can follow-up as scheduled with the [facility] her pasteuriser operator on Saturday. The patient and his voiced understanding of all of this, and will think about their options. Present on Admission?: Yes History of Present Illness Reason for Consultation: Left heel ulcer, chronic osteomyelitis left calcaneus Attending Physician: Malik Fernandez MD History of Present Illness Mr. Cooper is a 68-year-old male who is known to me from a previous consultation for the same issue about 3 weeks ago. In review, he has had this issue with chronic osteomyelitis of his calcaneus with an overlying left heel ulcer since of this year. He is diabetic and nonambulatory after previous spine surgery that got infected. He also has known peripheral artery disease with poor blood flow to his left leg with multiple calcified and clogged arteries. He previously had surgery with Dr. Guillermo from our group on February 06, where he underwent debridement of this heel ulcer. He had a special dressing stapled into place. He saw Dr. Guillermo in follow-up, last on March 17, but this dressing was not removed at that point. He has since missed a few follow-up appointments with Dr. Guillermo due to admissions to the hospital. When I saw him earlier this month, Dr. Guillermo recommended transfer to [facility] for evaluation for free flap coverage of this heel ulcer. They did go to this appointment, but the plastic surgeon immediately referred him to [facility] podiatry. It does not sound like he made any definitive decision on whether a free flap was a feasible option. He then saw the [facility] pasteuriser operator in their clinic at [facility]. The dressing from his previous surgery in January was removed at that visit. Apparently this was very foul-smelling. No definitive plans have been made for any surgical intervention at this point. He is currently set up for a follow-up appointment with the pasteuriser operator this coming May 12. He now presented back to the emergency room 2 days ago on May 06 due to worsening mental status and confusion. His daughter states that when his infections flare up, he often gets very confused. The daughter has not noticed a significant change in the posterior heel ulcer, but she has noticed a new large area of redness and bruising on the anterior ankle that showed up just in the past day since he was in the emergency room. He is currently receiving daily wet-to-dry dressing changes with Dakin's solution on his heel ulcer. He is on IV daptomycin as well as oral Cipro. He is also on oral vancomycin for C. difficile. Allergies Allergy/AdvReac Type Severity Reaction Status Date / Time lorazepam AdvReac Confusion Unverified 05/06/19 16:18 Home Medications Home Medications Medication Instructions Recorded Confirmed Type aspirin [Aspir-81] 81 mg PO QAM 12/01/18 05/06/19 History cholecalciferol (vitamin D3) 2,000 unit PO DAILY 12/01/18 05/06/19 History [Vitamin D3] finasteride [Proscar] 5 mg PO QAM 12/01/18 05/06/19 History metoprolol succinate [Toprol XL] 50 mg PO DAILY 12/01/18 05/06/19 History lidocaine 2 patch TRANSDERMAL DIRECTED 01/14/19 05/06/19 History Therems-M 1 tab PO DAILY 03/23/19 05/06/19 History ascorbic acid (vitamin C) [Vitamin 500 mg PO QAM 03/23/19 05/06/19 History C] melatonin 5 mg PO HS 03/23/19 05/06/19 History nystatin 1 applic EXT DAILY 03/23/19 05/06/19 History tamsulosin 0.4 mg capsule 0.4 mg PO HS #90 cap 03/30/19 05/06/19 Rx gabapentin [Neurontin] 100 mg PO BID 04/10/19 05/06/19 History levothyroxine [Synthroid] 25 mcg PO QAM 04/10/19 05/06/19 History pantoprazole [Protonix] 40 mg PO BID 04/10/19 05/06/19 History tramadol [Ultram] 50 mg PO Q4H PRN 04/10/19 05/06/19 History clopidogrel [Plavix] 75 mg PO QAM 04/12/19 05/06/19 History bumetanide 1 mg PO QAM #30 tab 04/20/19 05/06/19 Rx ciprofloxacin HCl 500 mg PO BID #28 tab 04/20/19 05/06/19 Rx daptomycin 500 mg IV DAILY #14 ea 04/20/19 05/06/19 Rx polyethylene glycol 3350 [Miralax] 17 g PO DAILY PRN #30 ea 04/20/19 05/06/19 Rx sacubitril-valsartan [Entresto] 1 tab PO BID #60 tab 04/20/19 05/06/19 Rx terbinafine HCl 1 applic EXT DAILY #1 tube 04/20/19 05/06/19 Rx quetiapine 25 mg tablet 25 mg PO HS tab 04/22/19 05/06/19 History ferrous sulfate 325 mg (65 mg 325 mg PO BIDM tab 04/27/19 05/06/19 History iron) tablet,delayed release docusate sodium 100 mg PO BID 05/04/19 05/06/19 History sodium hypochlorite [HySept] 1 applic TOPICAL DAILY 05/04/19 05/06/19 History vancomycin 125 mg PO UD 05/04/19 05/06/19 History oxycodone 5 mg tablet 5 mg PO TID #90 tab 05/05/19 05/06/19 Rx lorazepam 0.5 mg PO HS PRN 05/06/19 05/06/19 History losartan 25 mg PO DAILY 05/06/19 05/06/19 History Patient History Medical History Abscess in epidural space of lumbar spine Anemia Anxiety (Acute) CAD (coronary artery disease) CABG 2002 or so, severe multivessel disease - MD around time of paraspinal abscess earlier this year - medical mgmt of his CAD thus far Carotid artery stenosis (Acute) CHF (congestive heart failure) Chronic kidney disease, stage III (moderate) Chronic sinusitis 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 Admitted [facility] 10/18/11 for onset of incapacitating cervical myelopathy. Spinal tap showed BOILER CONTROL ROOM OPERATOR Lyme disease, MRI showed severe spinal cord compression at C3-4 with myelomalacia and intramedullary mass. Pt had c-spine surgery, subsequent prolonged hospital admission, complicated post-op course. Depression (Acute) Diabetic peripheral neuropathy (Acute) Diabetic retinopathy (Acute) Disc degeneration, lumbar (Acute) Diverticulosis (Acute) Dysphagia Full dentures (Acute) History of femoral angiogram adequate blood flow to foot History of non-ST elevation myocardial infarction (NSTEMI) HTN (hypertension) (Acute) ICD (implantable cardioverter-defibrillator) in place Ischemic cardiomyopathy EF WNL 11/2017 EF this year consistantly 25-30% Restless legs syndrome (Acute) Spinal stenosis (Acute) Sudden cardiac Post-op 2011 [facility]. Now has ICD. Thyroid disorder (Acute) Vitamin D deficiency (Acute) Surgical History H/O cervical spine surgery (Acute) ACDI C3-4, C7 corpectomy, removal of C7 intramedullary mass. History of cardiac cath 2011 AT [facility] - UNSURE IF HE HAS STENTS. History of cataract extraction with lens replacement History of colonoscopy History of esophagogastroduodenoscopy (EGD) History of incision and drainage Lumbar spine on 08/11; complicated by difficult intubation with only #6.5 ETT able to be placed and patient kept intubated post op History of lumbar spinal fusion (Acute) History of lumbar surgery 09/10/18 Glidescope 3 okay visualization but difficulty passing ETT, unable to pass 8.0, able to pass 7.0 with some difficulty History of tracheostomy Hx of tonsillectomy (Acute) Hx of transurethral resection of prostate S/P triple vessel bypass (Acute) [facility], 2002 Family History Mother , age 68 of COPD and respiratory issues COPD (chronic obstructive pulmonary disease) Father , in his 40s of an MD Myocardial infarction Other Diabetes Hypertension No pertinent family history Social History Preferred Language: Kinyarwanda Communication Ability: Effective Visual Impairment: No Limitations Hearing Ability: Normal Door Builder Required: No Beliefs That Will Affect Care: Religion Religion Beliefs: buddhism marital status: Current Living Situation: Spouse Current Living Situation Comment: lives at [facility] 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al status: retired and disabled 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: 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 There is diffuse edema and swelling in the lower leg and ankle area, but no significant surrounding erythema outside of the previously marked border of this ecchymotic area. The posterior heel ulcer is about 6 cm in diameter. It is grossly necrotic within the ulcer, but no significant surrounding erythema or swelling outside the borders of the ulcer. No active drainage. The foot is overall cool. He has decreased sensation diffusely, especially on the dorsal aspect of the foot. I cannot palpate a dorsalis pedis pulse. Results & Data Vital Signs (Past 12 Hours) Vital Signs Temp Pulse Pulse Resp BP Pulse Ox 05/08/19 07:55 36.4 C L 60 16 130/73 98 05/08/19 04:18 37.3 C 86 18 99/63 L 99 05/08/19 01:22 56 L 05/08/19 00:00 36.8 C 57 L 19 97/57 L 97 Laboratory Results WBC 05/07/19 - 5.13 Last ESR 04/26/19 - 26 Last CRP 04/23/19 - <0.[address] scan of his foot done yesterday was reviewed and compared to a preoperative CT scan done in January. It shows significant erosion of the posterolateral calcaneus in the area of his heel ulcer. It is difficult to say how much of this bone was removed surgically from his previous debridement surgery on February 06 versus how much is eroded from chronic osteomyelitis, but the erosion and osteolysis does appear consistent with chronic osteomyelitis.
--- NOTE | 2019-05-08 12:38 | Hospitalist Progress Note ---
Date of Service May 08, 2019 Assessment & Plan (1) Encephalopathy: Combination of infectino, polypharmacy, hypotension This has been ongoing off and on since back surgery in July. (2) Dehydration: Patient received IV fluid in the ER, diuretics continue to be on hold Will give 250 ml bolus today (3) Acute hypotension: Improved IVF as above, continue to hold Bumex. Hold entresto, continue metoprolol (4) Polypharmacy: (5) Renal failure (ARF), acute on chronic: Creatinine 2.5, electrolytes wnl Worsening chronic CKD3. Hold Bumex and entresto as above. Will give 250 ml bolus today. Avoid nephrotoxic agents. Repeat bmp am (6) History of CHF (congestive heart failure): Patient has elevated BNP but this may be near baseline as he has no other BNP values below this one in our record Continue home medicine: Clopidogrel 75 mg p.o. every morning, aspirin 81 mg p.o. every morning, metoprolol succinate 50 mg p.o. daily. Hold sacubitril/valsartan 1 mg p.o. twice daily as above Strict in and out Daily weights Low-sodium diet. (7) Chronic osteomyelitis of foot: Continue daptomycin, Cipro for wound cultures positive for MRSA and pseudomonas previously CT showed osteolysis vs previous surgical changes - increased from last foot CT which was taken preop Consulted ortho - will await results of sed rate and crp but concerned that patient may require amputation given persistence of infection and mental status alteration. Patient's would like to talk to the [facility] surgeon they had been working with on Saturday if surgery can be held off over the weekend. ID consulted (8) Acute UTI: DC ceftriaxone - UA growing rajendra albicans (9) Discharge planning issues: Planning for home health at this point, will continue to evaluate Supervising Physician Co-Signing Physician Notes I supervised Winter Loredo NP on this patient's care. I examined the patient today independently of her. I discussed the plan of care with her with the plan being as written in her note except for any following changes/exceptions: None. Patient's wants to go to [place] for further surgical evaluation. Foot rash looks improved in some areas, but the worst areas are clearly worsening and even necrosing. Subjective Mr. Cooper continues to be confused. He answers orientation questions appropriately but has periods of confusion and hallucinations. I spent time at bedside discussing plan of care with orthopedics and patient's Fatimah. She is very concerned that his confusion is rooted in his infection. Mr. Cooper does not have pain today. ROS Constitutional: no chills, aches, sweats or fever Respiratory: no sob,cough, sputum, or wheezing Cardiac: no chest pain, palpitations, edema, orthopnea or lightheadedness GI: no abdominal pain, nausea, vomiting, diarrhea or constipation : no dysuria or hesitancy Extremities: no joint pain or weakness Skin: no rash All other systems reviewed and negative Physical Exam Physical Exam: General: no distress Eyes: normal inspection, PERLL Respiratory: chest non tender, clear to auscultation, normal breath sounds, no respiratory distress, no accessory muscle use Cardiac: regular rate and rhythm, no rub or gallop, no murmur, no edema, no jvd GI/: active bowel sounds, no abd pain or tenderness, soft, non distended Extremities: normal range of motion, normal strength, non tender Neuro/Psych: alert and oriented x 3, flat affect, CN II -XII intact Skin: normal color, dry Results & Data Vital Signs (Past 12 Hours) Vital Signs Temp Pulse Pulse Resp BP Pulse Ox 05/08/19 11:40 36.3 C L 57 L 16 110/60 96 05/08/19 10:27 51 L 05/08/19 07:55 36.4 C L 60 16 130/73 98 05/08/19 04:18 37.3 C 86 18 99/63 L 99 05/08/19 01:22 56 L PG Care Time/CCT Total # of Minutes Spent Total Time Spent with Patient: Total time spent is greater than 50% in coordination of care (as documented) at patient's floor/unit and/or counseling patient: (1) Renal failure (ARF), acute on chronic Acute renal failure type: unspecified Chronic kidney disease stage: unspecified stage Qualified Code(s): N17.9 - Acute kidney failure, unspecified; N18.9 - Chronic kidney disease, unspecified
[2019-05-08] MEDS ORDERED: SODIUM CHLORIDE 0.9% 1000ML 250 ML IV ONE (13:40)
[2019-05-08] MEDS ORDERED: IMIPENEM/CILASTATIN SODIUM 300 MG in DEXTROSE 5% 100 ML IV SCH (16:00)
--- NOTE | 2019-05-08 18:06 | Discharge Summary ---
Date of Service May 08, 2019 Admission HPI Per Admitting Provider Patient is a 68 years old male with past medical history of neuropathy, diabetes mellitus type 2 with retinopathy, hypertension, coronary artery disease, CKD stage III, L3 vertebral fracture ,cough, now osteomyelitis of the left foot presents to the emergency room with a complaint of altered mental status. Patient is brought by his with stating that patient is not feeling any better. She was very concerned about patient wound that is not healing. Patient is at home on IV daptomycin for osteomyelitis oral Cipro, and vancomycin p.o. for C. difficile. Vancomycin p.o. should be adjusted per pharmacy since patient is tapering it off per recommendation of Dr. Ndiaye. Patient also has indwelling Rojas catheter and he is not able to walk due to previous spinal surgery. Patient supposed to be on Cipro for 30 days. Has home health. Labs are reviewed: WBCs 5.67, hemoglobin 10.3, hematocrit 31.7, platelets 171, PT 10.7, INR 1, APTT 27.1. Sodium 133, potassium 4, BUN 42, creatinine 2.4, GFR 27.1, lactate 1.1, BNP 5058, TSH 4.2., Urine 3+ blood, leukocyte esterase 3+, WBCs over 30, budding yeast. Patient had positive C. difficile toxin a last admission on 04/20/2019. Decision was made to admit patient to the [facility] on telemetry for further evaluation and treatment. Principal Diagnosis Osteomyelitis Discharge Exam Constitutional WD/WN, vitals as above Respiratory normal respiratory effort, lungs clear to auscultation Cardiovascular RRR, no murmur, no edema Gastrointestinal (Abdomen) Inspection/Auscultation: abdomen normal to inspection and normal bowel sounds; abdomen not distended Musculoskeletal no cyanosis or clubbing, extremities motor strength 5/5 Skin left heel ulceration - swan with small amount of surrounding erythema, left ankle erythematous are with bullae Discharge Data Allergies Allergy/AdvReac Type Severity Reaction Status Date / Time lorazepam AdvReac Confusion Unverified 05/06/19 16:18 Consultations 05/06/19 17:55 ED Decision to Admit Stat 05/06/19 22:39 Consult Infectious Diseases Routine 05/07/19 19:02 Consult Orthopedic Surgery Routine 05/08/19 17:14 Burn CD for patient Routine Ordered Studies 05/06/19 15:40 CT head/brain wo con Stat 05/07/19 16:51 CT foot LT wo con Routine Hospital Course (1) Chronic osteomyelitis of foot: Initially debrided 02/06 with subsequent management by ID and orthopedics. Patient had been set up to see a plate stacker hand with Sha on Saturday to discuss further debridement. This was a referral from [facility] who did not feel they could do a flap procedure without patient first having further debridement. Per [place] ortho consult, patient is a questionable candidate for flap procedure given poor perfusion. Continue daptomycin for MRSA resulted in wound culture. Changed Cipro to Imipenem to cover the pseudomonas on surface wound culture but also to cover history of Proteus on surgical culture in January which was previously treated. CT showed osteolysis vs previous surgical changes - increased from last foot CT which was taken preop Consulted ortho Sed rate and crp with marginal increase in sed rate, similar crp. ID consulted (2) Encephalopathy: Delirium due to combination of infection, polypharmacy, and hypotension This has been ongoing off and on since back surgery in July which became infected an resulted in an extended hospital stay. Patient becomes very confused with hallucinations which waxes and wanes Decreased seroquel and narcotics (3) Dehydration: Patient received IV fluid in the ER, diuretics continue to be on hold Will give 250 ml bolus today (4) Acute hypotension: Improved IVF as above, continue to hold Bumex. Hold entresto, continue metoprolol (5) Polypharmacy: (6) Renal failure (ARF), acute on chronic: Creatinine 2.5, electrolytes wnl Worsening chronic CKD3. Hold Bumex and entresto as above. Will give 250 ml bolus today. Avoid nephrotoxic agents. (7) History of CHF (congestive heart failure): Patient has elevated BNP but this may be near baseline as he has no other BNP values below this one in our record Continue home medicine: Clopidogrel 75 mg p.o. every morning, aspirin 81 mg p.o. every morning, metoprolol succinate 50 mg p.o. daily. Hold sacubitril/valsartan 1 mg p.o. twice daily as above Strict in and out Daily weights Low-sodium diet. (8) Ischemic cardiomyopathy: Medications as above Patient had NSTEMI either during or just after surgery in July (9) Acute UTI: DC ceftriaxone - UA growing rajendra albicans (10) Discharge planning issues: To transfer to [facility] Total Time Total Time Spent Total Time Spent (In Minutes): greater than 30 minutes Discharge Plan Discharge Items Patient Disposition: Transfer Acute Care Hospital Reason For Visit: AMS, OSTEOMYELITIS L HEEL Discharge Diagnosis: AMS, osteomyeleitis left heel Activity: As commented below Activity Comment: per tertiary care center instruction Non-emergency contact: Primary Care Provider Call non-emergency contact if: you have any medication questions Follow-up/Referrals: Christiano Alvarez MD [Primary Care Provider] - Diet: Carb Consistent or DM2 Addtl Attending Provider Instructions: Entresto and Bumex currently on hold for kidney function. Below are home narcotics and benzodiazepines. Those were to be decreased starting today for altered mental status Receiving daptomycin and Imipenem for IV antibiotic therapy Pending Studies at Discharge: No Stand-Alone Forms: My [facility] Skilled Items Patient informed of condition?: Yes DNR: No (full code ) Discharge Level of Care: Other Communicable Disease: Yes (MRSA wound and history of Cdiff currently still being treated ) Discharge Prognosis: Stable Lines: Peripheral IV Urinary Catheter: Yes Medications and DC Order Prescriptions: New imipenem-cilastatin 250 mg recon soln 300 mg IV Q6H Qty: 10 RF: 0 Continued tamsulosin [Flomax] 0.4 mg capsule 0.4 mg PO HS Qty: 90 RF: 1 quetiapine 25 mg tablet 25 mg PO HS RF: 0 oxycodone 5 mg tablet 5 mg PO TID Qty: 90 RF: 0 ferrous sulfate 325 mg (65 mg iron) tablet,delayed release (DR/EC) 325 mg PO BIDM RF: 0 lidocaine 5 % adhesive patch,medicated 2 patch transdermal DIRECTED RF: 0 melatonin 5 mg Tablet 5 mg PO HS RF: 0 nystatin 100,000 unit/gram ointment 1 applic EXT DAILY RF: 0 Therems-M 27-0.4 mg Tablet 1 tab PO DAILY RF: 0 ascorbic acid (vitamin C) [Vitamin C] 500 mg Tablet 500 mg PO QAM RF: 0 tramadol [Ultram] 50 mg tablet 50 mg PO Q4H PRN (Reason: pain) RF: 0 levothyroxine [Synthroid] 25 mcg tablet 25 mcg PO QAM RF: 0 pantoprazole [Protonix] 40 mg tablet,delayed release (DR/EC) 40 mg PO BID RF: 0 gabapentin [Neurontin] 100 mg capsule 100 mg PO BID RF: 0 Entresto 24-26 mg Tablet 1 tab PO BID Qty: 60 RF: 0 bumetanide 1 mg Tablet 1 mg PO QAM Qty: 30 RF: 0 terbinafine HCl 1 % Cream 1 applic EXT DAILY Qty: 1 RF: 0 polyethylene glycol 3350 [Miralax] 17 gram Powder In Packet 17 g PO DAILY PRN (Reason: constipation) Qty: 30 RF: 0 daptomycin 500 mg recon soln 500 mg IV DAILY Qty: 14 RF: 0 metoprolol succinate [Toprol XL] 50 mg Tablet Extended Release 24 Hr 50 mg PO DAILY RF: 0 aspirin [Aspir-81] 81 mg Tablet,Delayed Release (Dr/Ec) 81 mg PO QAM RF: 0 finasteride [Proscar] 5 mg Tablet 5 mg PO QAM RF: 0 cholecalciferol (vitamin D3) [Vitamin D3] 1,000 unit Tablet 2,000 unit PO DAILY RF: 0 clopidogrel [Plavix] 75 mg tablet 75 mg PO QAM RF: 0 HySept 0.25 % solution 1 applic topical DAILY RF: 0 docusate sodium 100 mg Capsule 100 mg PO BID RF: 0 vancomycin 125 mg capsule 125 mg PO UD RF: 0 losartan 25 mg tablet 25 mg PO DAILY RF: 0 lorazepam 0.5 mg tablet 0.5 mg PO HS PRN (Reason: insomnia) RF: 0 Discontinued ciprofloxacin HCl 500 mg Tablet 500 mg PO BID Qty: 28 RF: 0 Discharge Orders: Discharge Order (Routine); Ordered 05/08/19 Ordered By: Winter Loredo Admission Data Admit Date/Time: 05/06/19 20:13 Attending Provider: Malik Fernandez Admit Provider: Joel Hinkle Primary Care Provider: Christiano Alvarez Other Providers: Robert Ndiaye ; Malik Fernandez ; Chuckie Guillermo [place] Date/Time DO NOT enter until pt leaves facility: 05/08/19 20:41 Supervising Physician Co-Signing Physician Notes I supervised Winter Loredo NP on this patient's care. I examined the patient today independently of her. I discussed the plan of care with her with the plan being as written in her note except for any following changes/exceptions: None. Patient's wants to go to [place] for further surgical evaluation. Foot rash looks improved in some areas, but the worst areas are clearly worsening and even necrosing.
[2019-05-08] MEDS ORDERED: OXYCODONE HCL IR 5 MG TAB (IMMEDIATE RELEASE) PO SCH (21:00)
[2019-05-08] MEDS ORDERED: QUETIAPINE FUMARATE 25 MG TABLET PO SCH (21:00)
== END 2019-05-08 20:41 | disposition short-term general hospital (02) | DRG 540 ==
LOC: ED 14:33 → 2N 20:13 → SUATTDRO 20:13 → 2N 20:50

== ENCOUNTER 2019-07-15 11:41 | Inpatient (IN) ==
[2019-07-15] MEDS ORDERED: SODIUM CHLORIDE 0.9% 1000ML 1,000 ML IV ONE (12:06)
--- NOTE | 2019-07-15 13:23 | XRay Report ---
XR calcaneus LT min 2V CLINICAL HISTORY: h/o osteomyelitis of calcaneus, recent calcectomy COMPARISON STUDY: Left foot 06/19/2019. FINDINGS: There are again noted postoperative changes consistent with resection of the posterior calc aneus. Vascular calcifications are noted. There is a focal skin ulceration at the posterior heel flakita uring 2.5 cm. The gas track extends to the resected surface of the calcaneus. There is progressive mi ld erosive change at the resection site of the calcaneus consistent with osteomyelitis. There is also soft tissue swelling at the ankle and foot. No acute fracture or dislocation. IMPRESSION: Focal skin ulceration which extends to the resected surface of the posterior calcaneus. There is erosive change at the resection site of the calcaneus consistent with osteomyelitis. ACT 112: Negative or not required by law. Electronically signed by: Frankie Barrow M.D. 07/15/2019 1:22 PM
[2019-07-15 13:48] LABS: Basophils # (auto) 0.04 K/uL (0-0.2); Basophils % (auto) 0.5 %; Eosinophils # (auto) 0.26 K/uL (0-0.5); Eosinophils % (auto) 3.5 %; Hemoglobin 9.7 g/dL (14.0-18.0); Immature Granulocytes # (auto) 0.03 K/uL (0.00-0.02); Immature Granulocytes % (auto) 0.4 %; Lymphocytes # (auto) 1.04 K/uL (1.2-3.4); Mean Corpuscular Hemoglobin 30.3 pg (25-34); Mean Corpuscular Hgb Conc 32.3 g/dL (32-36); Mean Corpuscular Volume 93.8 fL (80-100); Mean Platelet Volume 10.1 fL (7.4-10.4); Monocytes # (auto) 0.52 K/uL (0.11-0.59); Neutrophils # (auto) 5.55 K/uL (1.4-6.5); Neutrophils % (auto) 74.6 %; Platelet Count 174 K/uL (130-400); RDW Coefficient of Variation 15.3 % (11.5-14.5); RDW Standard Deviation 52.7 fL (36.4-46.3); White Blood Count 7.44 K/uL (4.8-10.8)
[2019-07-15 14:03] LABS: Partial Thromboplastin Ratio 0.9; Partial Thromboplastin Time 24.8 Seconds (21.0-31.0); Prothrombin Time 10.3 Seconds (9.0-12.0)
[2019-07-15 14:06] LABS: Albumin Level 3.4 gm/dl (3.4-5.0); BUN Creatinine Ratio 27.7 (10-20); Calcium 9.4 mg/dl (8.5-10.1); Creatinine Clr Calc Pharmacy 60.6 ml/min; Est GFR (African American) 75.6; Est GFR (Non-African American) 65.3; Potassium 3.9 mmol/L (3.5-5.1)
[2019-07-15 14:09] LABS: Albumin Globulin Ratio 0.8 (0.9-2); Bilirubin,Total 0.5 mg/dl (0.2-1); Globulin 4.1 gm/dl (2.5-4.0); Total Protein 7.5 gm/dl (6.4-8.2)
[2019-07-15] MEDS ORDERED: VANCOMYCIN HCL 2,000 MG in SODIUM CHLORIDE 0.9% 500 ML IV ONE (14:10)
[2019-07-15] MEDS ORDERED: CEFEPIME 2,000 MG/20 ML VIAL IV STA (14:10)
[2019-07-15] MEDS ORDERED: VANCOMYCIN CONSULT ACTIVE PRN (14:10)
[2019-07-15 15:44] LABS: C Reactive Protein 0.47 mg/dl (0-0.29)
--- NOTE | 2019-07-15 17:47 | History & Physical Report ---
Date of Service July 15, 2019 Assessment & Plan (1) Chronic osteomyelitis of left foot: Possible acute worse since pus draning from ulcer (see his 's picture) and osteomyelitis noted on XR appears new since non calcaneal specific views taken at his ER visit in June. Interestingly his ESR and CRP are still downtrending however. Unfortunately patient was admitted before I was aware of the full complicated story and he may be better served in [place] where he has had his recent s urgeries and follow up but at this time will have orthopedics here see him for an opinion and to help liase with the team at [facility] to determine whether an in hospital transfer is warranted. Consult ortho ([facility]) to liase with his [facility] orthopedic surgeons to determine if surgery is potentially required this admission. Consult infectious disease (already known to Dr Guzman) Continue Vancomycin and cefepime for now pending blood and wound cultres. (2) Non-healing wound of left heel: Wound care nurse consult (3) Type 2 diabetes mellitus: Consult pharmacy glycemic control. HbA1C 5.8 in April. Repeat with AM labs. On lantus 10 units SQ daily at home (4) Ischemic cardiomyopathy: Appears well compensated at present although I think she switches between hospitals has caused his medication list to not be accurate and I am unclear if he should be taking entersto, losartan or nothing at all a this time. I am also unclear about the state of his periheral artery disease and whether that is contributing towards his non healing ulcer therefore I will consult his music minister for both. (5) PAD (peripheral artery disease): see above (6) Spinal stenosis: s/p multiple back surgeries and is effectively paraplegic at this time (7) Obstructive sleep apnea: Offer CPAP HS (8) Coronary artery disease: Conintue ASA, metoprolol, unclear why he is not on statin (9) DVT prophylaxis: Lovenox 40mg SQ daily (10) Discharge planning issues: Patient appears to be at baseline History of Present Illness Chief Complaint: Pus from chronic foot ulcer Primary Care Provider: Edd Alvarez MD Leandro Cooper is a 68 year old male who presents to the ER from his PCP office due to concens his non heeling chronic pressure ulcer has been increasingly black over the past week and last two days it has been draining pus. No cellulitis changes coming from the ulcer and patient has been afebrile. He followed up with his PCP who contacted wound care and recommended he was sent to the ER for evaluation. He denies any fevers or chills. As a quick recap of this unfortunate patient's recent history starting with lumbar spinal decompression and instrumentation 1 year ago for severe spinal stenosis with neurogenic claudication. This was complicated by NSTEMI in the immediate post operative period (Rx medically). He subsequently developed Serratia bacteremia and was taken back to the OR in August 2018 for epidural abscess. He has had two further spinal surgeries in September and October due to ongoing infection with intesive care admission in October growing c. albicans and Enterobacter. This all resulted in a neurogenic bladder and he is effectively paraplegic at this time. At [facility] around December he developed a pressure ulcer on the heel of his left ankle, debridement by Dr Guillermo in January. He subsequently developed osteomyelitis for which a below knee amputation was recommend by Dr Guillermo. However, he wishes to preserve his foot if at all possible and saught a second opinion at [facility] and underwent debridement on 05/14 and then partial left calcanectomy on 05/19. PICC line @ [facility] and he was treated with IV daptomycin and meropenem with last day of antibiotics on 30 June. Sutures were removed from wound on July 06. In addition he has had complications of c. difficile colitis. Allergies Allergy/AdvReac Type Severity Reaction Status Date / Time lorazepam AdvReac Confusion Verified 07/15/19 12:45 sacubitril [From Entresto] AdvReac problems Verified 07/15/19 12:45 with bp valsartan [From Entresto] AdvReac problems Verified 07/15/19 12:45 with bp Home Medications Home Medications Medication Instructions Recorded Confirmed Type aspirin [Aspir-81] 81 mg PO QAM 12/01/18 07/23/19 History cholecalciferol (vitamin D3) 2,000 unit PO QAM 12/01/18 07/23/19 History [Vitamin D3] Therems-M 1 tab PO DAILY 03/23/19 07/23/19 History ascorbic acid (vitamin C) [Vitamin 500 mg PO QAM 03/23/19 07/23/19 History C] melatonin 5 mg PO HS 03/23/19 07/23/19 History tamsulosin 0.4 mg capsule 0.4 mg PO HS #90 cap 03/30/19 07/23/19 Rx levothyroxine [Synthroid] 25 mcg PO QAM 04/10/19 07/23/19 History pantoprazole [Protonix] 40 mg PO BID 04/10/19 07/23/19 History clopidogrel [Plavix] 75 mg PO QAM 04/12/19 07/23/19 History quetiapine 25 mg tablet 25 mg PO HS tab 04/22/19 07/23/19 History ferrous sulfate 325 mg (65 mg 325 mg PO BIDM tab 04/27/19 07/23/19 History iron) tablet,delayed release losartan 25 mg PO DAILY 05/06/19 07/23/19 History gabapentin 100 mg capsule 100 mg PO TID #90 cap 06/04/19 07/23/19 Rx bumetanide 1 mg tablet 1 mg PO QAM #30 tab 06/24/19 07/23/19 Rx metoprolol succinate 25 mg 25 mg PO DAILY #30 tab 06/24/19 07/23/19 Rx tablet,extended release 24 hr finasteride 5 mg tablet 5 mg PO QAM #90 tab 06/25/19 07/23/19 Rx oxycodone 5 mg tablet 5 mg PO TID #90 tab 07/09/19 07/23/19 Rx Lantus Solostar U-100 Insulin 13 units SQ DAILY #15 ml 07/21/19 07/23/19 Rx ceftolozane-tazobactam [Zerbaxa] 1.5 gm IV Q8H #10 ea 07/21/19 07/23/19 Rx vancomycin [Vancocin] 125 mg PO Q6H 21 Days #84 cap 07/21/19 07/23/19 Rx Lactobacillus acidoph-L.bulgar 1 4 tab PO TID tab 07/23/19 07/23/19 History million cell tablet Past Med/Surg History Medical History (Updated 07/20/19 @ 15:02 by Daisha Marcus PA-C) Abscess in epidural space of lumbar spine Acute UTI (Acute) PAULA (acute kidney injury) Anemia Anxiety (Acute) C. difficile colitis CAD (coronary artery disease) CABG 2002 or so, severe multivessel disease - [place] around time of paraspinal abscess earlier this year - medical mgmt of his CAD thus far Carotid artery stenosis (Acute) CHF (congestive heart failure) Chronic kidney disease, stage III (moderate) Chronic osteomyelitis of ankle and foot Chronic sinusitis [employer]ENT 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 Admitted [facility] 10/18/11 for onset of incapacitating cervical myelopathy. Spinal tap showed [employer] Lyme disease, MRI showed severe spinal cord compression at C3-4 with myelomalacia and intramedullary mass. Pt had c-spine surgery, subsequent prolonged hospital admission, complicated post-op course. Depression (Acute) Diabetic peripheral neuropathy (Acute) Diabetic retinopathy (Acute) Disc degeneration, lumbar (Acute) Diverticulosis (Acute) DVT prophylaxis Dysphagia Full dentures (Acute) History of femoral angiogram adequate blood flow to foot History of non-ST elevation myocardial infarction (NSTEMI) HTN (hypertension) (Acute) ICD (implantable cardioverter-defibrillator) in place Ischemic cardiomyopathy EF WNL 11/2017 EF this year consistantly 25-30% Osteomyelitis of foot (Acute) Restless legs syndrome (Acute) Septic shock (Resolved) Spinal stenosis (Acute) Sudden cardiac Post-op 2011 [facility]. Now has ICD. Vitamin D deficiency (Acute) Surgical History H/O cervical spine surgery (Acute) ACDI C3-4, C7 corpectomy, removal of C7 intramedullary mass. History of cardiac cath 2011 AT [facility] - UNSURE IF HE HAS STENTS. History of cataract extraction with lens replacement History of colonoscopy History of esophagogastroduodenoscopy (EGD) History of incision and drainage Lumbar spine on 08/11; complicated by difficult intubation with only #6.5 ETT able to be placed and patient kept intubated post op History of lumbar spinal fusion (Acute) History of lumbar surgery 09/10/18 Glidescope 3 okay visualization but difficulty passing ETT, unable to pass 8.0, able to pass 7.0 with some difficulty History of tracheostomy Hx of tonsillectomy (Acute) Hx of transurethral resection of prostate S/P triple vessel bypass (Acute) [facility] [id number] Family History Mother , age 68 of COPD and respiratory issues COPD (chronic obstructive pulmonary disease) Father , in his 40s of an [place] Myocardial infarction Other Diabetes Hypertension No pertinent family history Social History Preferred Language: Spanish Communication Ability: Effective Visual Impairment: No Limitations Hearing Ability: Normal Bull Gang Worker Required: No Beliefs That Will Affect Care: None marital status: Current Living Situation: Spouse and Family Current Living Situation Comment: , son, dil 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al status: retired and disabled 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: 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 [employer] Feels Safe at Home: Yes Smoking Status: Former smoker Tobacco Type: cigarettes and smokeless tobacco ; Second Hand Exposure: No ; Hx Alcohol Use: No Hx Substance Use: No Review of Systems Review of Systems: All systems reviewed & are unremarkable except as noted in HPI & below Physical Exam Constitutional: + thin and + disheveled; + not well nourished and no acute distress Eyes: + anicteric sclerae; normal pupil size ENMT: external ear and nose normal, oropharynx normal Respiratory: normal respiratory effort, lungs clear to auscultation Cardiovascular: RRR, no murmur, no edema Gastrointestinal (Abdomen): normal bowel sounds, soft, nontender, no hepatosplenomegaly Musculoskeletal: Left calcaneal ulcer with necrotic tissue and no draining pus or fluid when seen (although picture that his has shows pus earlier in the day. Skin: no rashes, warm and dry Neurologic: moves all extremities and awake; no focal motor deficits and not confused Psychiatric: A+Ox3, euthymic affect Results & Data Vital Signs (Past 12 Hours) Vital Signs Temp Pulse Pulse Resp BP BP Pulse Ox 07/15/19 17:07 64 20 127/62 92 07/15/19 16:11 64 20 126/74 95 07/15/19 14:36 62 13 114/63 98 07/15/19 13:29 61 15 110/62 100 07/15/19 13:28 100 07/15/19 11:50 36.3 C L 71 16 94/54 L 100 Diagnostic Findings XR calcaneus LT min 2V IMPRESSION: Focal skin ulceration which extends to the resected surface of the posterior calcaneus. There is erosive change at the resection site of the calcaneus consistent with osteomyelitis. Code Status & VTE Plan Code Status Everything except in the event of a cardiac arrest VTE Prophylaxis Plan VTE Prophylaxis will be ordered: Yes PG Care Time/CCT Total # of Minutes Spent Total Time Spent with Patient: Total time spent is greater than 50% in coordination of care (as documented) at patient's floor/unit and/or counseling patient: Coding Level of Care Code 32614 Initial Inpt Care Lvl 3 Diagnoses Chronic osteomyelitis of left foot M86.672 Non-healing wound of left heel S91.302A Type 2 diabetes mellitus E11.52; Z79.4 Diabetes mellitus complication detail: with peripheral angiopathy with gangrene Diabetes mellitus complication status: with circulatory complication Diabetes mellitus terminal worker insulin use: with senior care use Ischemic cardiomyopathy I25.5 PAD (peripheral artery disease) I73.9 Spinal stenosis M48.062 Neurogenic claudication status: with neurogenic claudication Spinal region: lumbar Obstructive sleep apnea G47.33 Coronary artery disease I25.10 Associated angina: without angina Coronary Disease-Associated Artery/Lesion type: [place] artery [place] vs. transplanted heart: [place] heart DVT prophylaxis Z29.9 Discharge planning issues Z02.9 (1) Type 2 diabetes mellitus Diabetes mellitus complication detail: with peripheral angiopathy with gangrene Diabetes mellitus complication status: with circulatory complication Diabetes mellitus senior care insulin use: with senior care use Qualified Code(s): E11.52 - Type 2 diabetes mellitus with diabetic peripheral angiopathy with gangrene; Z79.4 - terminal worker (current) use of insulin (2) Coronary artery disease Associated angina: without angina Coronary Disease-Associated Artery/Lesion type: [place] artery [place] vs. transplanted heart: [place] heart Qualified Code(s): I25.10 - Atherosclerotic heart disease of [place] coronary artery without angina pectoris (3) Spinal stenosis Neurogenic claudication status: with neurogenic claudication Spinal region: lumbar Qualified Code(s): M48.062 - Spinal stenosis, lumbar region with neurogenic claudication
--- NOTE | 2019-07-15 19:16 | Emergency Department Note ---
Entered by Candie Yanez acting as a scribe for Addison Mueller MD History of Present Illness General Chief complaint: Infection Stated complaint: INFECTION IN HEEL Time Seen by Provider: 07/15/19 12:01 Source: patient and family History of Present Illness Provider complaint: wound infection Onset (ago): hour(s) (this morning) Location: lower extremity and left Radiation: non-radiation Maximum Pain Intensity: 0 Relieved By: + none Associated symptoms: no fever/chills and no nausea/vomiting The patient is a 68 year old male w/ PMHx osteomyelitis, diabetes, CHF, CAD, HTN, and PAULA who presents to the ED w/ CC of wound infection beginning this morning. The patient reports that he had a left heel surgery on May [address] [facility]. He notes that he had his stitches taken out this morning. The patients reports that the wound has been draining. She reports that the patient is not on any medication for the wound, but was told to scrub it with antibiotic soap. The patient denies any nausea, vomiting, fever, or chills. He reports that he has a history of osteomyelitis. Home Medications Home Medications Medication Instructions Recorded Confirmed Type aspirin [Aspir-81] 81 mg PO QAM 12/01/18 07/15/19 History cholecalciferol (vitamin D3) 2,000 unit PO QAM 12/01/18 07/15/19 History [Vitamin D3] Therems-M 1 tab PO DAILY 03/23/19 07/15/19 History ascorbic acid (vitamin C) [Vitamin 500 mg PO QAM 03/23/19 07/15/19 History C] melatonin 5 mg PO HS 03/23/19 07/15/19 History tamsulosin 0.4 mg capsule 0.4 mg PO HS #90 cap 03/30/19 07/15/19 Rx levothyroxine [Synthroid] 25 mcg PO QAM 04/10/19 07/15/19 History pantoprazole [Protonix] 40 mg PO BID 04/10/19 07/15/19 History clopidogrel [Plavix] 75 mg PO QAM 04/12/19 07/15/19 History quetiapine 25 mg tablet 25 mg PO HS tab 04/22/19 07/15/19 History ferrous sulfate 325 mg (65 mg 325 mg PO BIDM tab 04/27/19 07/15/19 History iron) tablet,delayed release losartan 25 mg PO DAILY 05/06/19 07/15/19 History gabapentin 100 mg capsule 100 mg PO TID #90 cap 06/04/19 07/15/19 Rx insulin glargine 100 unit/mL (3 10 units SQ DAILY #15 ml 06/04/19 07/15/19 Rx mL) subcutaneous pen bumetanide 1 mg tablet 1 mg PO QAM #30 tab 06/24/19 07/15/19 Rx metoprolol succinate 25 mg 25 mg PO DAILY #30 tab 06/24/19 07/15/19 Rx tablet,extended release 24 hr finasteride 5 mg tablet 5 mg PO QAM #90 tab 06/25/19 07/15/19 Rx oxycodone 5 mg tablet 5 mg PO TID #90 tab 07/09/19 07/15/19 Rx Allergies Allergy/AdvReac Type Severity Reaction Status Date / Time lorazepam AdvReac Confusion Verified 07/15/19 12:45 sacubitril [From Entresto] AdvReac problems Verified 07/15/19 12:45 with bp valsartan [From Entresto] AdvReac problems Verified 07/15/19 12:45 with bp Past Med/Surg History Medical History (Updated 07/15/19 @ 17:46 by Ricky Nguyen MD) Abscess in epidural space of lumbar spine Acute UTI (Acute) PAULA (acute kidney injury) Anemia Anxiety (Acute) C. difficile colitis CAD (coronary artery disease) CABG 2002 or so, severe multivessel disease - [place] around time of paraspinal abscess earlier this year - medical mgmt of his CAD thus far Carotid artery stenosis (Acute) CHF (congestive heart failure) Chronic kidney disease, stage III (moderate) Chronic sinusitis [facility] 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 Admitted [facility] 10/18/11 for onset of incapacitating cervical myelopathy. Spinal tap showed [facility] ASSIST[facility] Lyme disease, MRI showed severe spinal cord compression at C3-4 with myelomalacia and intramedullary mass. Pt had c-spine surgery, subsequent prolonged hospital admission, complicated post-op course. Depression (Acute) Diabetic peripheral neuropathy (Acute) Diabetic retinopathy (Acute) Disc degeneration, lumbar (Acute) Diverticulosis (Acute) DVT prophylaxis Dysphagia Full dentures (Acute) History of femoral angiogram adequate blood flow to foot History of non-ST elevation myocardial infarction (NSTEMI) HTN (hypertension) (Acute) ICD (implantable cardioverter-defibrillator) in place Ischemic cardiomyopathy EF WNL 11/2017 EF this year consistantly 25-30% Osteomyelitis of foot (Acute) Restless legs syndrome (Acute) Septic shock (Resolved) Spinal stenosis (Acute) Sudden cardiac Post-op 2011 [facility]. Now has ICD. Thyroid disorder (Acute) Vitamin D deficiency (Acute) Surgical History H/O cervical spine surgery (Acute) ACDI C3-4, C7 corpectomy, removal of C7 intramedullary mass. History of cardiac cath 2011 AT [facility] - UNSURE IF HE HAS STENTS. History of cataract extraction with lens replacement History of colonoscopy History of esophagogastroduodenoscopy (EGD) History of incision and drainage Lumbar spine on 08/11; complicated by difficult intubation with only #6.5 ETT able to be placed and patient kept intubated post op History of lumbar spinal fusion (Acute) History of lumbar surgery 09/10/18 Glidescope 3 okay visualization but difficulty passing ETT, unable to pass 8.0, able to pass 7.0 with some difficulty History of tracheostomy Hx of tonsillectomy (Acute) Hx of transurethral resection of prostate S/P triple vessel bypass (Acute) [facility] Family History Mother , age 68 of COPD and respiratory issues COPD (chronic obstructive pulmonary disease) Father , in his 40s of an [place] Myocardial infarction Other Diabetes Hypertension No pertinent family history Social History Preferred Language: Yi Communication Ability: Effective Visual Impairment: No Limitations Hearing Ability: Normal Press Box Custodian Required: No Beliefs That Will Affect Care: Congregational Congregational Beliefs: methodist marital status: Current Living Situation: Spouse Current Living Situation Comment: lives at [facility] 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al status: retired and disabled 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: 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 and A total of 10 systems reviewed and were otherwise negative Physical Exam Vital Signs Vital Signs - 24 hr 07/15/19 11:50 07/15/19 13:28 07/15/19 13:29 Temperature 36.3 C L Temperature Source Oral Pulse Rate 71 Pulse Rate [Left] 61 Pulse Rhythm [Left] Regular Respiratory Rate 16 15 Respiratory Effort / Characteristics Non-Labored Non-Labored Spontaneous Respiratory Depth Normal Normal Respiratory Pattern Regular Blood Pressure 94/54 L Blood Pressure [Left Arm] 110/62 Blood Pressure Mean 67 Blood Pressure Mean [Left Arm] 78 Blood Pressure Position Sitting Pulse Oximetry 100 100 100 Oxygen Delivery Method Room Air Room Air Room Air Sepsis Recent Fever Within 48 Hours No Sepsis New/Unexplained Change in Mental Status No Sepsis Action Taken by Nursing No Action Required 07/15/19 14:36 07/15/19 16:11 07/15/19 17:07 Temperature Temperature Source Pulse Rate Pulse Rate [Left] 62 64 64 Pulse Rhythm [Left] Regular Regular Regular Respiratory Rate 13 20 20 Respiratory Effort / Characteristics Non-Labored Non-Labored Non-Labored Respiratory Depth Normal Normal Normal Respiratory Pattern Regular Regular Regular Blood Pressure Blood Pressure [Left Arm] 114/63 126/74 127/62 Blood Pressure Mean Blood Pressure Mean [Left Arm] 80 91 83 Blood Pressure Position Pulse Oximetry 98 95 92 Oxygen Delivery Method Room Air Room Air Room Air Sepsis Recent Fever Within 48 Hours Sepsis New/Unexplained Change in Mental Status Sepsis Action Taken by Nursing GENERAL: Well appearing, well nourished, NAD, non-toxic. EYE EXAM: Normal conjunctiva. PERRL, no anisocoria and EOM's grossly intact w/o pain. OROPHARYNX: Moist mucous membranes. Grossly normal dentition. NECK: Supple, no nuchal rigidity, no adenopathy, non-tender. No signs of meningismus. LUNGS: Scant breathing. Normal chest wall mechanics. HEART: NSR, no MRG. ABDOMEN: Abdomen soft, non-tender, normo-active bowel sounds, no masses, no rebound or guarding. BACK: No CVA TTP. SKIN: No rashes and no bruising. UPPER EXTREMITIES: Upper extremities are grossly normal. LOWER EXTREMITIES: No sensory deficit, chronic wound over anterior aspect of ankle. Deep wound to the area of the calcaneus which probes to the bone, scant drainage, no surrounding cellulitis, possible granular tissue vs infectious drainage. No calf pain. NEURO EXAM: A&O x3, cranial nerves II-XII grossly intact, normal speech, moves all 4 extremities on command w/o issue. Course Course 1218: The patient was evaluated in room B11B, and a complete history and physical examination were performed. 1524: I reviewed the patient's case with Dr. Nguyen- [facility] Hospitalist. He will evaluate the patient for further management. Administered Medications Discontinued Medications Sodium Chloride (Nss 1000ml) 1,000 mls @ 999 mls/hr IV .Q1H1M ONE Stop: 07/15/19 13:06 Last Infusion: 07/15/19 15:34 Dose: 0 mls/hr Documented by: [id number] Admin: 07/15/19 14:28 Dose: 999 mls/hr Documented by: [id number] Vancomycin HCl 2,000 mg/ (Sodium Chloride) 540 mls @ 200 mls/hr IV NOW ONE Stop: 07/15/19 16:51 Last Infusion: 07/15/19 18:10 Dose: 0 mls/hr Documented by: [id number] Admin: 07/15/19 15:11 Dose: 200 mls/hr Documented by: [id number] Cefepime HCl (Maxipime) 2,000 mg in 20 mls @ 5 mls/min IV NOW STA; Protocol Stop: 07/15/19 14:13 Last Admin: 07/15/19 14:31 Dose: 5 mls/min Documented by: [id number] Medical Decision Making Medical Records Attestation: I reviewed the patient's medical records. Home Medications Current Medication List: was personally reviewed by me Laboratory Data Attestation: I reviewed the patient's lab results. Result diagrams: 07/15/19 13:25 07/15/19 13:25 Lab Results 07/15/19 07/15/19 07/15/19 Range/Units 13:25 13:25 13:25 WBC 7.44 (4.8-10.8) K/uL RBC 3.20 L (4.7-6.1) M/uL Hgb 9.7 L (14.0-18.0) g/dL Hct 30.0 L (42-52) % MCV 93.8 (80-100) fL MCH 30.3 (25-34) pg MCHC 32.3 (32-36) g/dL RDW Std Deviation 52.7 H (36.4-46.3) fL RDW Coeff of Norbert 15.3 H (11.5-14.5) % Plt Count 174 (130-400) K/uL MPV 10.1 (7.4-10.4) fL Immature Gran % (Auto) 0.4 % Neut % (Auto) 74.6 % Lymph % (Auto) 14.0 % [place] % (Auto) 7.0 % Eos % (Auto) 3.5 % Baso % (Auto) 0.5 % Immature Gran # (Auto) 0.03 H (0.00-0.02) K/uL Neut # (Auto) 5.55 (1.4-6.5) K/uL Lymph # (Auto) 1.04 L (1.2-3.4) K/uL [place] # (Auto) 0.52 (0.11-0.59) K/uL Eos # (Auto) 0.26 (0-0.5) K/uL Baso # (Auto) 0.04 (0-0.2) K/uL ESR (0-14) mm/hr PT 10.3 (9.0-12.0) Seconds INR 1.0 (0.9-1.1) APTT 24.8 (21.0-31.0) Seconds PTT Ratio 0.9 Sodium 141 (136-145) mmol/L Potassium 3.9 (3.5-5.1) mmol/L Chloride 106 (98-107) mmol/L Carbon Dioxide 30 (21-32) mmol/L Anion Gap 5.0 (3-11) BUN 32 H (7-18) mg/dl Creatinine 1.16 (0.6-1.4) mg/dl Est Cr Clr Drug Dosing 60.6 ml/min Est GFR ( Amer) 75.6 Est GFR (Non-Af Amer) 65.3 BUN/Creatinine Ratio 27.7 H (10-20) Glucose 158 H (70-99) mg/dl Lactate (0.4-2.0) mmol/L Calcium 9.4 (8.5-10.1) mg/dl Magnesium 2.0 (1.8-2.4) mg/dl Total Bilirubin 0.5 (0.2-1) mg/dl AST 13 L (15-37) U/L ALT 21 (12-78) U/L Alkaline Phosphatase 80 (45-117) U/L C-Reactive Protein 0.47 H (0-0.29) mg/dl Total Protein 7.5 (6.4-8.2) gm/dl Albumin 3.4 (3.4-5.0) gm/dl Globulin 4.1 H (2.5-4.0) gm/dl Albumin/Globulin Ratio 0.8 L (0.9-2) 07/15/19 07/15/19 Range/Units 13:25 13:26 WBC (4.8-10.8) K/uL RBC (4.7-6.1) M/uL Hgb (14.0-18.0) g/dL Hct (42-52) % MCV (80-100) fL MCH (25-34) pg MCHC (32-36) g/dL RDW Std Deviation (36.4-46.3) fL RDW Coeff of Norbert (11.5-14.5) % Plt Count (130-400) K/uL MPV (7.4-10.4) fL Immature Gran % (Auto) % Neut % (Auto) % Lymph % (Auto) % [place] % (Auto) % Eos % (Auto) % Baso % (Auto) % Immature Gran # (Auto) (0.00-0.02) K/uL Neut # (Auto) (1.4-6.5) K/uL Lymph # (Auto) (1.2-3.4) K/uL [place] # (Auto) (0.11-0.59) K/uL Eos # (Auto) (0-0.5) K/uL Baso # (Auto) (0-0.2) K/uL ESR 51 H (0-14) mm/hr PT (9.0-12.0) Seconds INR (0.9-1.1) APTT (21.0-31.0) Seconds PTT Ratio Sodium (136-145) mmol/L Potassium (3.5-5.1) mmol/L Chloride (98-107) mmol/L Carbon Dioxide (21-32) mmol/L Anion Gap (3-11) BUN (7-18) mg/dl Creatinine (0.6-1.4) mg/dl Est Cr Clr Drug Dosing ml/min Est GFR ( Amer) Est GFR (Non-Af Amer) BUN/Creatinine Ratio (10-20) Glucose (70-99) mg/dl Lactate 1.0 (0.4-2.0) mmol/L Calcium (8.5-10.1) mg/dl Magnesium (1.8-2.4) mg/dl Total Bilirubin (0.2-1) mg/dl AST (15-37) U/L ALT (12-78) U/L Alkaline Phosphatase (45-117) U/L C-Reactive Protein (0-0.29) mg/dl Total Protein (6.4-8.2) gm/dl Albumin (3.4-5.0) gm/dl Globulin (2.5-4.0) gm/dl Albumin/Globulin Ratio (0.9-2) Imaging Data Radiologist's Impression: Radiology results as stated below per my review and the radiologist's interpretation: XR calcaneus LT min 2V CLINICAL HISTORY: h/o osteomyelitis of calcaneus, recent calcectomy COMPARISON STUDY: Left foot 06/19/2019. FINDINGS: There are again noted postoperative changes consistent with resection of the posterior calcaneus. Vascular calcifications are noted. There is a focal skin ulceration at the posterior heel measuring 2.5 cm. The gas track extends to the resected surface of the calcaneus. There is progressive mild erosive change at the resection site of the calcaneus consistent with osteomyelitis. There is also soft tissue swelling at the ankle and foot. No acute fracture or dislo cation. IMPRESSION: Focal skin ulceration which extends to the resected surface of the posterior calcaneus. There is erosive change at the resection site of the calcaneus consistent with osteomyelitis. ACT 112: Negative or not required by law. Electronically signed by: Frankie Barrow M.D. 07/15/2019 1:22 PM Blood Pressure Blood Pressure Findings: Low blood pressure Blood Pressure Disposition: did not require urgent referral MDM Narrative Differential diagnosis: Etiologies such as cellulitis, abscess, MRSA infection, DVT, necrotizing fasciitis, dermatitis, drug eruption, osteomyelitis, as well as others were entertained. The patient is a 68 year old male w/ PMHx osteomyelitis, diabetes, CHF, CAD, HTN, and PAULA who presents to the ED w/ CC of wound infection beginning this morning. Patient was seen and evaluated the bedside. Patient does have prior history of osteomyelitis and recently did have a calcanectomy with orthopedics at [facility] in [place]. This occurred on May 19. The patient did have a recent follow-up and did have the sutures removed. The patient does have an open wound to the left calcaneal area. No obvious oozing but it does probe to bone. The patient does not have signs of abscess at this time. Blood work was obtained along with a plain film. No fevers or chills. Patient was initially slightly hypotensive so IV fluids were ordered but the patient denies any systemic symptoms i.e. fevers or chills at this time. Patient blood pressure improved with IV fluids. The patient does still have osteomyelitis of the left calcaneus based on his x-ray. Given the patient's chronicity of infection and associated history of nonhealing along with the fact that the patient is currently not on antibiotics I did discuss the patient patient's case with the on-call hospitalist. Antibiotics were ordered and the patient was admitted to the medicine service Impression & Plan Acute osteomyelitis of left calcaneus, Wound infection Discharge Plan Visit Data Chief Complaint: Infection Stated Complaint: INFECTION IN HEEL ED Provider: Addison Mueller Discharge Problem: Acute osteomyelitis of left calcaneus, Wound infection Patient Disposition: Being Evaluated by Hospitalist Discharge Instructions Interventions: ED Discharge Assessment Last Done: 07/15/19 18:39 The scribe's documentation has been prepared under my direction and personally reviewed by me in its entirety. I confirm that the note above accurately reflects all work, treatment, procedures, and medical decision making performed by me.
--- NOTE | 2019-07-15 20:06 | Pharmacy Report ---
Pharmacy Abx Initial Consult - Date of Service July 15, 2019 - Pharmacy Dosing Scope Date of Consult: 07/15/19 Consultation requested by: Dr. Nguyen Pharmacy is consulted to initiate Vancomcyin IV dosing therapy, order appropriate labs and adjust drug dose/frequency. - Subjective The patient is a 68 year old M admitted on 07/15/19 17:38. - Objective Height: 5 ft 8 in Weight: 79 kg Vital Signs (Past 12hrs): Vital Signs Temp Pulse Pulse Resp BP BP Pulse Ox 07/15/19 19:27 71 07/15/19 18:55 36.6 C 61 16 122/55 L 100 07/15/19 18:26 63 15 112/67 93 07/15/19 17:07 64 20 127/62 92 07/15/19 16:11 64 20 126/74 95 07/15/19 14:36 62 13 114/63 98 07/15/19 13:29 61 15 110/62 100 07/15/19 13:28 100 07/15/19 11:50 36.3 C L 71 16 94/54 L 100 Lab Results (24hrs): Laboratory Tests (24 Hours) 07/15/19 07/15/19 07/15/19 13:25 13:25 13:25 WBC 7.44 Neut # (Auto) 5.55 ESR 51 H Creatinine 1.16 Est Cr Clr Drug Dosing 60.6 C-Reactive Protein 0.47 H Micro Results: 07/15/19 13:25 Aerobic Blood Culture - Pending Blood Anaerobic Blood Culture - Pending 07/15/19 12:30 Gram Stain - Pending Foot,Left Deep Wound Culture - Pending 07/15/19 12:41 Aerobic Blood Culture - Pending Blood Anaerobic Blood Culture - Pending - Risk Factors for Resistance * Hospitalization for 48 hours or more within the past 90 days * 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 Had left heel surgery on 05/19/19. He had stitches removed this am and reports that wound has been draining. * XR calcaneus shows focal skin ulceration at posterior heel measuring 2.5 cm. Progressive mild erosive change at resection of the calcaneus consistent with osteomyelitis. Also soft tissue swelling @ left ankle and foot. Plan Vancomycin for treatment of osteomyelitis Vancomycin IV * Estimated PK Parameters: Vd 0.7 L/kg, Dion 0.055 hr-1, t1/2 12.65 hr * Loading dose: 2000 mg (25 mg/kg) * Maintenance dose: 1250 mg IV (15.6 mg/kg) every 14 hours * Goal trough level for osteomyelitis : 15 to 20 mcg/mL * Trough level ordered for 07/17/19 @ 0830 * A less than traditional dose and/or extended dosing interval has/have been selected due to likelihood of drug accumulation in obese patient/patient = Pt is also ordered Cefepime 2gm IV q8h. Dosing is appropriate based on renal function Pharmacy will continue to follow and will adjust dose/frequency as necessary. Thank you.
[2019-07-15] MEDS: GABAPENTIN 100 MG CAP PO SCH (20:30)
[2019-07-15] MEDS: TAMSULOSIN HCL 0.4 MG CAP PO SCH (20:31)
[2019-07-15] MEDS: QUETIAPINE FUMARATE 25 MG TABLET PO SCH (20:31)
[2019-07-15] MEDS: PANTOprazole 40 MG TAB PO SCH (20:31)
[2019-07-15] MEDS: ENOXAPARIN INJ 40 MG/0.4 ML SYR SQ SCH (20:39)
[2019-07-15] MEDS ORDERED: GLUCAGON FOR INJ 1 MG VIAL SQ PRN (20:44)
[2019-07-15] MEDS ORDERED: GLUCOSE 40% GEL 15 GM TUBE PO PRN (20:44)
[2019-07-15] MEDS ORDERED: DEXTROSE 50% 50 ML SYRINGE IV PRN (20:44)
[2019-07-15] MEDS ORDERED: CARBOHYDRATES FOR HYPOGLYCEMIA PO PRN (20:44)
[2019-07-15] MEDS ORDERED: GLUCOSE 10 TABS/TUBE PO PRN (20:44)
[2019-07-15] MEDS ORDERED: NON-FORMULARY MEDICATION (Melatonin 5 MG) PO SCH (21:00)
[2019-07-15] MEDS: CEFEPIME 2,000 MG in SYRINGE 7.5 ML IV SCH (21:02)
[2019-07-15] MEDS: INSULIN ASPART 100 UNITS/ML 3 ML PEN SC SCH (21:11)
[2019-07-15] MEDS ORDERED: POLYETHYLENE (MIRALAX) 17 GM PACK PO PRN (21:55)
[2019-07-15] MEDS: DOCUSATE SODIUM 100 MG CAP PO SCH (22:09)
[2019-07-16] MEDS ORDERED: PHARMACY GLYCEMIC MGMT CONSULT PRN (04:54)
[2019-07-16] MEDS ORDERED: INSULIN ASPART 100 UNITS/ML 3 ML PEN SC STA (05:06)
[2019-07-16] MEDS: VANCOMYCIN HCL 1,250 MG in SODIUM CHLORIDE 0.9% 250 ML IV SCH ×2 (05:20→18:47)
[2019-07-16 05:54] LABS: Estimated Average Glucose 126 mg/dl
[2019-07-16 06:01] LABS: Basophils # (auto) 0.04 K/uL (0-0.2); Basophils % (auto) 0.6 %; Eosinophils # (auto) 0.37 K/uL (0-0.5); Eosinophils % (auto) 5.7 %; Hematocrit (blood only) 26.8 % (42-52); Hemoglobin 8.7 g/dL (14.0-18.0); Immature Granulocytes # (auto) 0.02 K/uL (0.00-0.02); Immature Granulocytes % (auto) 0.3 %; Lymphocytes % (auto) 13.9 %; Mean Corpuscular Hemoglobin 29.9 pg (25-34); Mean Corpuscular Hgb Conc 32.5 g/dL (32-36); Mean Corpuscular Volume 92.1 fL (80-100); Mean Platelet Volume 9.8 fL (7.4-10.4); Monocytes # (auto) 0.74 K/uL (0.11-0.59); Monocytes % (auto) 11.4 %; Neutrophils # (auto) 4.42 K/uL (1.4-6.5); Neutrophils % (auto) 68.1 %; Platelet Count 156 K/uL (130-400); RDW Coefficient of Variation 15.1 % (11.5-14.5); Red Blood Count 2.91 M/uL (4.7-6.1); White Blood Count 6.49 K/uL (4.8-10.8)
[2019-07-16] MEDS: LEVOTHYROXINE SODIUM 25 MCG TABLET PO SCH (06:15)
[2019-07-16] MEDS: CEFEPIME 2,000 MG in SYRINGE 7.5 ML IV SCH ×3 (06:15→21:52)
[2019-07-16 06:40] LABS: Albumin Level 2.8 gm/dl (3.4-5.0); BUN Creatinine Ratio 30.6 (10-20); Calcium 8.7 mg/dl (8.5-10.1); Creatinine Clr Calc Pharmacy 74.8 ml/min; Est GFR (African American) 97.5; Est GFR (Non-African American) 84.2; Potassium 3.6 mmol/L (3.5-5.1)
[2019-07-16 06:42] LABS: Albumin Globulin Ratio 0.8 (0.9-2); Bilirubin,Total 0.4 mg/dl (0.2-1); Globulin 3.5 gm/dl (2.5-4.0); Total Protein 6.3 gm/dl (6.4-8.2)
[2019-07-16] MEDS: LACTOBACILLUS ACIDOPHILUS (FLORANEX) TAB PO SCH ×3 (07:48→17:51)
[2019-07-16] MEDS: BUMETANIDE 1 MG TAB PO SCH (07:48)
[2019-07-16] MEDS: FERROUS SULFATE 325 MG TAB PO SCH ×2 (07:48→17:51)
[2019-07-16] MEDS: LOSARTAN POTASSIUM 25 MG TAB PO SCH (07:48)
[2019-07-16] MEDS: DOCUSATE SODIUM 100 MG CAP PO SCH ×2 (07:48→20:57)
[2019-07-16] MEDS: CLOPIDOGREL BISULFATE 75 MG TAB PO SCH (07:49)
[2019-07-16] MEDS: METOPROLOL SUCC 25MG EXT REL TAB PO SCH (07:49)
[2019-07-16] MEDS: FINASTERIDE 5 MG TAB PO SCH (07:49)
[2019-07-16] MEDS: MULTIVITAMIN TAB PO SCH (07:49)
[2019-07-16] MEDS: ASPIRIN 81 MG ECTAB PO SCH (07:49)
[2019-07-16] MEDS: GABAPENTIN 100 MG CAP PO SCH ×3 (07:49→20:58)
[2019-07-16] MEDS: ASCORBIC ACID 500 MG TAB PO SCH (07:50)
[2019-07-16] MEDS: PANTOprazole 40 MG TAB PO SCH ×2 (07:50→20:59)
[2019-07-16] MEDS: CHOLECALCIFEROL 1,000 UNITS 25 MCG TAB PO SCH (07:50)
[2019-07-16] MEDS: INSULIN ASPART 100 UNITS/ML 3 ML PEN SC SCH ×4 (08:58→21:00)
[2019-07-16] MEDS ORDERED: HEPARIN SOD 5,000 UNIT/0.5 ML VIAL SQ SCH (09:00)
--- NOTE | 2019-07-16 09:08 | Infectious Disease Consult ---
Date of Consultation July 16, 2019 Assessment & Plan (1) Wound infection: continue abx, follow culture results. suggest wound care eval. History of Present Illness Attending Physician: Malik Fernandez MD pt admitted with leg wound. denies pain, cutlure done in Er, growing gnr x 2. on vanco and cefepime, tolerating well. denies wound care in the past. vascular following, ultrasound pending. no f/c. no cp, sob, cough, no abd pain, no n/v/d. wbc 7, creat 1. heel x ray showing osteo. afebrile since admission, asking to go home. Allergies Allergy/AdvReac Type Severity Reaction Status Date / Time lorazepam AdvReac Confusion Verified 07/15/19 12:45 sacubitril [From Entresto] AdvReac problems Verified 07/15/19 12:45 with bp valsartan [From Entresto] AdvReac problems Verified 07/15/19 12:45 with bp Home Medications Home Medications Medication Instructions Recorded Confirmed Type aspirin [Aspir-81] 81 mg PO QAM 12/01/18 07/15/19 History cholecalciferol (vitamin D3) 2,000 unit PO QAM 12/01/18 07/15/19 History [Vitamin D3] Therems-M 1 tab PO DAILY 03/23/19 07/15/19 History ascorbic acid (vitamin C) [Vitamin 500 mg PO QAM 03/23/19 07/15/19 History C] melatonin 5 mg PO HS 03/23/19 07/15/19 History tamsulosin 0.4 mg capsule 0.4 mg PO HS #90 cap 03/30/19 07/15/19 Rx levothyroxine [Synthroid] 25 mcg PO QAM 04/10/19 07/15/19 History pantoprazole [Protonix] 40 mg PO BID 04/10/19 07/15/19 History clopidogrel [Plavix] 75 mg PO QAM 04/12/19 07/15/19 History quetiapine 25 mg tablet 25 mg PO HS tab 04/22/19 07/15/19 History ferrous sulfate 325 mg (65 mg 325 mg PO BIDM tab 04/27/19 07/15/19 History iron) tablet,delayed release losartan 25 mg PO DAILY 05/06/19 07/15/19 History gabapentin 100 mg capsule 100 mg PO TID #90 cap 06/04/19 07/15/19 Rx insulin glargine 100 unit/mL (3 10 units SQ DAILY #15 ml 06/04/19 07/15/19 Rx mL) subcutaneous pen bumetanide 1 mg tablet 1 mg PO QAM #30 tab 06/24/19 07/15/19 Rx metoprolol succinate 25 mg 25 mg PO DAILY #30 tab 06/24/19 07/15/19 Rx tablet,extended release 24 hr finasteride 5 mg tablet 5 mg PO QAM #90 tab 06/25/19 07/15/19 Rx oxycodone 5 mg tablet 5 mg PO TID #90 tab 07/09/19 07/15/19 Rx Patient History Medical History Abscess in epidural space of lumbar spine Acute UTI (Acute) PAULA (acute kidney injury) Anemia Anxiety (Acute) C. difficile colitis CAD (coronary artery disease) CABG 2002 or so, severe multivessel disease - [place] around time of paraspinal abscess earlier this year - medical mgmt of his CAD thus far Carotid artery stenosis (Acute) CHF (congestive heart failure) Chronic kidney disease, stage III (moderate) Chronic sinusitis ATTACHER 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 Admitted [facility] 10/18/11 for onset of incapacitating cervical myelopathy. Spinal tap showed ATTACHER Lyme disease, MRI showed severe spinal cord compression at C3-4 with myelomalacia and intramedullary mass. Pt had c-spine surgery, subsequent prolonged hospital admission, complicated post-op course. Depression (Acute) Diabetic peripheral neuropathy (Acute) Diabetic retinopathy (Acute) Disc degeneration, lumbar (Acute) Diverticulosis (Acute) DVT prophylaxis Dysphagia Full dentures (Acute) History of femoral angiogram adequate blood flow to foot History of non-ST elevation myocardial infarction (NSTEMI) HTN (hypertension) (Acute) ICD (implantable cardioverter-defibrillator) in place Ischemic cardiomyopathy EF WNL 11/2017 EF this year consistantly 25-30% Osteomyelitis of foot (Acute) Restless legs syndrome (Acute) Septic shock (Resolved) Spinal stenosis (Acute) Sudden cardiac Post-op 2011 [facility]. Now has ICD. Thyroid disorder (Acute) Vitamin D deficiency (Acute) Surgical History H/O cervical spine surgery (Acute) ACDI C3-4, C7 corpectomy, removal of C7 intramedullary mass. History of cardiac cath 2011 AT [facility] - UNSURE IF HE HAS STENTS. History of cataract extraction with lens replacement History of colonoscopy History of esophagogastroduodenoscopy (EGD) History of incision and drainage Lumbar spine on 08/11; complicated by difficult intubation with only #6.5 ETT able to be placed and patient kept intubated post op History of lumbar spinal fusion (Acute) History of lumbar surgery 09/10/18 Glidescope 3 okay visualization but difficulty passing ETT, unable to pass 8.0, able to pass 7.0 with some difficulty History of tracheostomy Hx of tonsillectomy (Acute) Hx of transurethral resection of prostate S/P triple vessel bypass (Acute) [facility] Family History Mother , age 68 of COPD and respiratory issues COPD (chronic obstructive pulmonary disease) Father , in his 40s of an [place] Myocardial infarction Other Diabetes Hypertension No pertinent family history Social History Preferred Language: Korean Communication Ability: Effective Visual Impairment: No Limitations Hearing Ability: Normal Communications Maintainer Required: No Beliefs That Will Affect Care: None marital status: Current Living Situation: Spouse and Family Current Living Situation Comment: , son, dil 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al status: retired and disabled 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: 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 [employer] Feels Safe at Home: Yes Smoking Status: Former smoker Tobacco Type: cigarettes and smokeless tobacco ; Second Hand Exposure: No ; Tobacco Cessation Education Requested by Patient: No Hx Alcohol Use: No Hx Substance Use: No Review of Systems Review of Systems: All systems reviewed & are unremarkable except as noted in HPI & below Physical Exam Constitutional: WD/WN, vitals as above Eyes: PERRL, conjunctivae normal, anicteric sclerae ENMT: external ear and nose normal, oropharynx normal Neck: normal visual inspection Respiratory: normal respiratory effort, lungs clear to auscultation Cardiovascular: RRR, no murmur, no edema Gastrointestinal (Abdomen): normal bowel sounds, soft, nontender, no hepatosplenomegaly Musculoskeletal: no cyanosis or clubbing, extremities motor strength 5/5 Skin: no rashes, warm and dry + wound (necrotic , no draiange, no erythema) Psychiatric: A+Ox3, euthymic affect Results & Data Vital Signs (Past 12 Hours) Vital Signs Temp Pulse Pulse Resp BP Pulse Ox 07/16/19 07:00 36.3 C L 67 18 111/65 97 07/16/19 03:49 36.8 C 63 16 109/68 100 07/16/19 01:06 70 07/15/19 23:23 36.6 C 69 18 113/54 L 97 Laboratory Results Microbiology 07/15/19 12:30 Foot,Left Deep Wound Culture - Preliminary Gram negative bacilli Gram negative bacilli#2 PG Care Time/CCT Total # of Minutes Spent Total Time Spent with Patient: Total time spent is greater than 50% in coordi nation of care (as documented) at patient's floor/unit and/or counseling patient: Coding Level of Care Code 81313 Inpt Consult Level 4 Diagnoses Wound infection T14.8XXA; L08.9
[2019-07-16] MEDS: INSULIN GLARGINE SOLOSTAR 100 UNITS/ML 3 ML PEN SC SCH (09:40)
--- NOTE | 2019-07-16 09:45 | Vascular Medicine Consultation ---
Date of Consultation July 16, 2019 Assessment & Plan (1) Non-healing wound of left heel: --chronic osteomyelitis left calcaneus post partial calcanectomy 2. CAD post CABG 3. Ischemic cardiomyopathy with CHF 4. Type 2 diabetes 5. Hypertension 6. Dyslipidemia 7. Anemia Patient with chronic osteomyelitis of left calcaneus and recent partial calcanectomy at [facility] in May 2019. Admitted yesterday for worsening of his wounds. On IV antibiotics and following with infectious disease. Vascular medicine consulted to assess status of peripheral arterial disease. Patient underwent lower extremity angiography in January 2019 with widely patent inflow, SFA/popliteal arteries and 3 vessel runoff to the foot felt to be adequate for wound healing. On exam left foot appears well perfuses with strong DP and PT pulses. Suspect no new significant PAD but will reassess with ABIs and lower extremity arterial duplex. If no change on noninvasive imaging no further vascular testing/intervention necessary at this time. Recommend wound care referral. Supervising Physician Co-Signing Physician Notes Patient seen and examined with AYLA Ybarra. Agree with assessment and plan as outlined. Non-ambulatory currently. No lower extremity rest pain. Foot well perfused on exam with 2+ distal pulses and normal capillary refill. Reviewed arterial duplex - LT LE arterial system widely patent with biphasic waveforms to distal BASHIR/DRAFTING SUPERVISOR. Unchanged from prior study. Again feel that arterial perfusion adequate for wound healing and no indication for further invasive testing or procedures at this time. History of Present Illness Reason for Consultation: Left foot wounds Attending Physician: Malik Fernandez MD History of Present Illness Mr. Cooper is a 68-year-old male with a complex past medical history including nonhealing wounds with osteomyelitis of left foot, ischemic cardiomyopathy/chronic CHF with EF 25 to 30% and inferior akinesis post prior AICD, severe coronary artery disease post CABG with patent DELATORRE to LAD and sev ere [place] circumflex, ramus RCA disease 07/2018, type 2 diabetes, hypertension, dyslipidemia, anemia. Vascular medicine consulted to assess for PAD in setting of nonhealing wounds. Patient developed a left heel pressure ulcer in December 2018 while at [facility] recovering from back surgery. Admitted in January 2019 with osteomyelitis. Arterial duplex was suggestive of tibial disease. He underwent lower extremity angiogram with Dr. Larose showing widely patent inflow, patent SFA/popliteal arteries and 3 vessel runoff to the foot with DRAFTING SUPERVISOR patent supplying heel. No intervention was needed. He underwent debridement of the ulcer with orthopedics. Unfortunately patient continues to deal with chronic osteomyelitis of left calcaneus and now also has wound over anterior ankle. He was admitted to [facility] in [place] in May and underwent debridement followed by partial left calcanectomy. Also had PICC line placed for IV antibiotics. He followed up with [facility] orthopedics on 07/06/19 for suture removal. He was admitted yesterday with increased drainage from his wounds. Imaging consistent with osteo of calcaneus. Wound cultures growing gram negative bacilli and currently on cefepime and vanco per infectious disease. Patient has been bed bound since December. Denies any significant foot/leg pain. No fever, chills or sweats. No chest pain, shortness of breath, orthopnea, PND or edema. Allergies Allergy/AdvReac Type Severity Reaction Status Date / Time lorazepam AdvReac Confusion Verified 07/15/19 12:45 sacubitril [From Entresto] AdvReac problems Verified 07/15/19 12:45 with bp valsartan [From Entresto] AdvReac problems Verified 07/15/19 12:45 with bp Home Medications Home Medications Medication Instructions Recorded Confirmed Type aspirin [Aspir-81] 81 mg PO QAM 12/01/18 07/15/19 History cholecalciferol (vitamin D3) 2,000 unit PO QAM 12/01/18 07/15/19 History [Vitamin D3] Therems-M 1 tab PO DAILY 03/23/19 07/15/19 History ascorbic acid (vitamin C) [Vitamin 500 mg PO QAM 03/23/19 07/15/19 History C] melatonin 5 mg PO HS 03/23/19 07/15/19 History tamsulosin 0.4 mg capsule 0.4 mg PO HS #90 cap 03/30/19 07/15/19 Rx levothyroxine [Synthroid] 25 mcg PO QAM 04/10/19 07/15/19 History pantoprazole [Protonix] 40 mg PO BID 04/10/19 07/15/19 History clopidogrel [Plavix] 75 mg PO QAM 04/12/19 07/15/19 History quetiapine 25 mg tablet 25 mg PO HS tab 04/22/19 07/15/19 History ferrous sulfate 325 mg (65 mg 325 mg PO BIDM tab 04/27/19 07/15/19 History iron) tablet,delayed release losartan 25 mg PO DAILY 05/06/19 07/15/19 History gabapentin 100 mg capsule 100 mg PO TID #90 cap 06/04/19 07/15/19 Rx insulin glargine 100 unit/mL (3 10 units SQ DAILY #15 ml 06/04/19 07/15/19 Rx mL) subcutaneous pen bumetanide 1 mg tablet 1 mg PO QAM #30 tab 06/24/19 07/15/19 Rx metoprolol succinate 25 mg 25 mg PO DAILY #30 tab 06/24/19 07/15/19 Rx tablet,extended release 24 hr finasteride 5 mg tablet 5 mg PO QAM #90 tab 06/25/19 07/15/19 Rx oxycodone 5 mg tablet 5 mg PO TID #90 tab 07/09/19 07/15/19 Rx Patient History Medical History (Updated 07/16/19 @ 19:54 by Quincy Heck M.D.) Abscess in epidural space of lumbar spine Acute UTI (Acute) PAULA (acute kidney injury) Anemia Anxiety (Acute) C. difficile colitis CAD (coronary artery disease) CABG 2002 or so, severe multivessel disease - [place] around time of paraspinal abscess earlier this year - medical mgmt of his CAD thus far Carotid artery stenosis (Acute) CHF (congestive heart failure) Chronic kidney disease, stage III (moderate) Chronic osteomyelitis of ankle and foot Chronic sinusitis CHUCKER 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 Admitted [facility] 10/18/11 for onset of incapacitating cervical myelopathy. Spinal tap showed CHUCKER Lyme disease, MRI showed severe spinal cord compression at C3-4 with myelomalacia and intramedullary mass. Pt had c-spine surgery, subsequent prolonged hospital admission, complicated post-op course. Depression (Acute) Diabetic peripheral neuropathy (Acute) Diabetic retinopathy (Acute) Disc degeneration, lumbar (Acute) Diverticulosis (Acute) DVT prophylaxis Dysphagia Full dentures (Acute) History of femoral angiogram adequate blood flow to foot History of non-ST elevation myocardial infarction (NSTEMI) HTN (hypertension) (Acute) ICD (implantable cardioverter-defibrillator) in place Ischemic cardiomyopathy EF WNL 11/2017 EF this year consistantly 25-30% Osteomyelitis of foot (Acute) Restless legs syndrome (Acute) Septic shock (Resolved) Spinal stenosis (Acute) Sudden cardiac Post-op 2011 [facility]. Now has ICD. Thyroid disorder (Acute) Vitamin D deficiency (Acute) Surgical History H/O cervical spine surgery (Acute) ACDI C3-4, C7 corpectomy, removal of C7 intramedullary mass. History of cardiac cath 2011 AT [facility] - UNSURE IF HE HAS STENTS. History of cataract extraction with lens replacement History of colonoscopy History of esophagogastroduodenoscopy (EGD) History of incision and drainage Lumbar spine on 08/11; complicated by difficult intubation with only #6.5 ETT able to be placed and patient kept intubated post op History of lumbar spinal fusion (Acute) History of lumbar surgery 09/10/18 Glidescope 3 okay visualization but difficulty passing ETT, unable to pass 8.0, able to pass 7.0 with some difficulty History of tracheostomy Hx of tonsillectomy (Acute) Hx of transurethral resection of prostate S/P triple vessel bypass (Acute) [facility], 2002 Family History Mother , age 68 of COPD and respiratory issues COPD (chronic obstructive pulmonary disease) Father , in his 40s of an [place] Myocardial infarction Other Diabetes Hypertension No pertinent family history Social History Preferred Language: Bermudian Communication Ability: Effective Visual Impairment: No Limitations Hearing Ability: Normal Dumbwaiter Operator Required: No Beliefs That Will Affect Care: None marital status: Current Living Situation: Spouse and Family Current Living Situation Comment: , son, dil 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al status: retired and disabled 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 HEENT: Sclerae anicteric. Neck: no bruits. No appreciable JVD. Lungs: Clear to auscultation bilaterally without rales, rhonchi or wheezes. Cardiac: Regular rate and rhythm. S1-S2 normal. No appreciable murmur, gallop or rub. Extremities/vascular: --Warm, well perfused. --Radial, DP and PT pulses 2+ bilaterally --Capillary refill intact --No edema --Large, superficial ulceration anterior ankle with eschar and no significant periwound inflammation. Deeper wound over left heel with eschar and some drainage. Neurologic: Nonfocal Psychiatric: Affect appropriate. Alert and oriented. Results & Data Vital Signs (Past 12 Hours) Vital Signs Temp Pulse Pulse Resp BP Pulse Ox 07/16/19 07:00 36.3 C L 67 18 111/65 97 07/16/19 03:49 36.8 C 63 16 109/68 100 07/16/19 01:06 70 07/15/19 23:23 36.6 C 69 18 113/54 L 97 Laboratory Results Laboratory Results - last 24 hr 07/15/19 07/15/19 07/15/19 13:25 13:25 13:25 WBC 7.44 RBC 3.20 L Hgb 9.7 L Hct 30.0 L MCV 93.8 MCH 30.3 MCHC 32.3 RDW Std Deviation 52.7 H RDW Coeff of Norbert 15.3 H Plt Count 174 MPV 10.1 Immature Gran % (Auto) 0.4 Neut % (Auto) 74.6 Lymph % (Auto) 14.0 Trinity % (Auto) 7.0 Eos % (Auto) 3.5 Baso % (Auto) 0.5 Immature Gran # (Auto) 0.03 H Neut # (Auto) 5.55 Lymph # (Auto) 1.04 L Trinity # (Auto) 0.52 Eos # (Auto) 0.26 Baso # (Auto) 0.04 ESR PT 10.3 INR 1.0 APTT 24.8 PTT Ratio 0.9 Sodium 141 Potassium 3.9 Chloride 106 Carbon Dioxide 30 Anion Gap 5.0 BUN 32 H Creatinine 1.16 Est Cr Clr Drug Dosing 60.6 Est GFR ( Amer) 75.6 Est GFR (Non-Af Amer) 65.3 BUN/Creatinine Ratio 27.7 H Glucose 158 H POC Glucose Estimat Average Glucose Hemoglobin A1c Lactate Calcium 9.4 Magnesium 2.0 Total Bilirubin 0.5 AST 13 L ALT 21 Alkaline Phosphatase 80 C-Reactive Protein 0.47 H Total Protein 7.5 Albumin 3.4 Globulin 4.1 H Albumin/Globulin Ratio 0.8 L Hepatitis C Ab Screen 07/15/19 07/15/19 07/15/19 13:25 13:25 13:26 WBC RBC Hgb Hct MCV MCH MCHC RDW Std Deviation RDW Coeff of Norbert Plt Count MPV Immature Gran % (Auto) Neut % (Auto) Lymph % (Auto) Trinity % (Auto) Eos % (Auto) Baso % (Auto) Immature Gran # (Auto) Neut # (Auto) Lymph # (Auto) Trinity # (Auto) Eos # (Auto) Baso # (Auto) ESR 51 H PT INR APTT PTT Ratio Sodium Potassium Chloride Carbon Dioxide Anion Gap BUN Creatinine Est Cr Clr Drug Dosing Est GFR ( Amer) Est GFR (Non-Af Amer) BUN/Creatinine Ratio Glucose POC Glucose Estimat Average Glucose 126 Hemoglobin A1c 6.0 H Lactate 1.0 Calcium Magnesium Total Bilirubin AST ALT Alkaline Phosphatase C-Reactive Protein Total Protein Albumin Globulin Albumin/Globulin Ratio Hepatitis C Ab Screen 07/15/19 07/16/19 07/16/19 19:17 05:11 05:26 WBC RBC Hgb Hct MCV MCH MCHC RDW Std Deviation RDW Coeff of Norbert Plt Count MPV Immature Gran % (Auto) Neut % (Auto) Lymph % (Auto) Trinity % (Auto) Eos % (Auto) Baso % (Auto) Immature Gran # (Auto) Neut # (Auto) Lymph # (Auto) Trinity # (Auto) Eos # (Auto) Baso # (Auto) ESR PT INR APTT PTT Ratio Sodium Potassium Chloride Carbon Dioxide Anion Gap BUN Creatinine Est Cr Clr Drug Dosing Est GFR ( Amer) Est GFR (Non-Af Amer) BUN/Creatinine Ratio Glucose POC Glucose 236 H 134 H Estimat Average Glucose Hemoglobin A1c Lactate Calcium Magnesium Total Bilirubin AST ALT Alkaline Phosphatase C-Reactive Protein Total Protein Albumin Globulin Albumin/Globulin Ratio Hepatitis C Ab Screen Neg 07/16/19 07/16/19 07/16/19 05:26 05:26 07:32 WBC 6.49 RBC 2.91 L Hgb 8.7 L Hct 26.8 L MCV 92.1 MCH 29.9 MCHC 32.5 RDW Std Deviation 51.0 H RDW Coeff of Norbert 15.1 H Plt Count 156 MPV 9.8 Immature Gran % (Auto) 0.3 Neut % (Auto) 68.1 Lymph % (Auto) 13.9 Trinity % (Auto) 11.4 Eos % (Auto) 5.7 Baso % (Auto) 0.6 Immature Gran # (Auto) 0.02 Neut # (Auto) 4.42 Lymph # (Auto) 0.90 L Trinity # (Auto) 0.74 H Eos # (Auto) 0.37 Baso # (Auto) 0.04 ESR PT INR APTT PTT Ratio Sodium 139 Potassium 3.6 Chloride 106 Carbon Dioxide 28 Anion Gap 5.0 BUN 29 H Creatinine 0.94 Est Cr Clr Drug Dosing 74.8 Est GFR ( Amer) 97.5 Est GFR (Non-Af Amer) 84.2 BUN/Creatinine Ratio 30.6 H Glucose 126 H POC Glucose 123 H Estimat Average Glucose Hemoglobin A1c Lactate Calcium 8.7 Magnesium Total Bilirubin 0.4 AST 12 L ALT 19 Alkaline Phosphatase 65 C-Reactive Protein Total Protein 6.3 L Albumin 2.8 L Globulin 3.5 Albumin/Globulin Ratio 0.8 L Hepatitis C Ab Screen ECG Additional Comments: Tele reviewed-- sinus rhythm with PVCs PG Care Time/CCT Total # of Minutes Spent Total Time Spent with Patient: Total time spent is greater than 50% in coordination of care (as documented) at patient's floor/unit and/or counseling patient: Coding Level of Care Code 82645 Initial Inpt Care Lvl 3 Diagnoses Non-healing wound of left heel S91.302A
--- NOTE | 2019-07-16 12:04 | Ultrasound Report ---
US arterial duplex LE LT CLINICAL HISTORY: Left foot wound. COMPARISON STUDY: Left lower extremity arterial Doppler study 02/02/2019. FINDINGS: The ankle brachial indices were unable to be obtained due to noncompressibility of the calc ified vessels. Normal velocities and biphasic to triphasic waveforms within the left common femoral, superficial femoral, and popliteal arteries. Monophasic waveforms within the left calf vessels with n ormal peak systolic velocities. No evidence for arterial occlusion. IMPRESSION: 1. Diffuse calcified plaque throughout the left lower extremity arterial system. 2. No evidence for arterial occlusion. 3. Monophasic waveforms seen within the left calf suggestive of the diffuse atherosclerotic disease w ithout hemodynamically significant stenosis. This remains unchanged. ACT 112: Negative or not required by law. Electronically signed by: Frankie Barrow M.D. 07/16/2019 12:02 PM
--- NOTE | 2019-07-16 12:40 | Hospitalist Progress Note ---
Date of Service July 16, 2019 Assessment & Plan (1) Chronic osteomyelitis of left foot: Recurrent osteomyelitis noted on XR appears new since non-calcaneal specific views taken at his ER visit in June. - Continue abx - Orthopedics, vascular, and ID all consulted - appreciate help. - Follow cultures - Call Sha Chavez today to update. (2) Type 2 diabetes mellitus: HbA1C was 5.8% in April. - On lantus 10 units SQ daily at home - Sliding scale insulin - Glycemic pharmacist consulted (3) Ischemic cardiomyopathy: Appears well compensated at present although I think the switches between hospitals has caused his medication list to not be accurate and I am unclear if he should be taking Entersto, losartan, or nothing at all a this time. - Continue beta-angy, ARB, and Bumex for now - Appears euvolemic today. No chest pain. (4) Spinal stenosis: S/p multiple back surgeries and is effectively paraplegic at this time. - Monitor chronic Rojas - No inpatient issues (5) Obstructive sleep apnea: Will offer CPAP HS. (6) Coronary artery disease: As above (7) DVT prophylaxis: Lovenox 40mg SQ daily Subjective He feels well overall, but the left heel is black and has pus. Reports no fevers/chills, chest pain, shortness of breath, abdominal pain, nausea, or vomiting. Physical Exam Constitutional: WD/WN, vitals as above + frail appearing Eyes: EOM intact bilaterally; no conjunctival abnormality ENMT: external ear and nose normal, oropharynx normal Neck: trachea midline, no thyromegaly normal visual inspection Respiratory: normal respiratory effort, lungs clear to auscultation no respiratory distress Cardiovascular: RRR, no murmur, no edema Gastrointestinal (Abdomen): Inspection/Auscultation: abdomen normal to inspection; abdomen not distended Musculoskeletal: no cyanosis or clubbing, extremities motor strength 5/5 Skin: + ulcer (Two ulcers on left leg. One at calcaneus and other on top of the hightower.) Neurologic: moves all extremities and awake Psychiatric: Orientation: alert, oriented to person and cooperative Results & Data ([facility]) Vital Signs (Past 12 Hours) Vital Signs Temp Pulse Pulse Resp BP Pulse Ox 07/16/19 11:26 36.6 C 64 18 102/66 100 07/16/19 07:00 36.3 C L 67 18 111/65 97 07/16/19 03:49 36.8 C 63 16 109/68 100 07/16/19 01:06 70 PG Care Time/CCT Total # of Minutes Spent Total Time Spent with Patient: Total time spent is greater than 50% in coordination of care (as documented) at patient's floor/unit and/or counseling patient: Coding Level of Care Code 20171 Subseq Hosp Care Lvl 3 Diagnoses Chronic osteomyelitis of left foot M86.672 Type 2 diabetes mellitus E11.52; Z79.4 Diabetes mellitus snf insulin use: with snf use Diabetes mellitus complication status: with circulatory complication Diabetes mellitus complication detail: with peripheral angiopathy with gangrene Ischemic cardiomyopathy I25.5 Spinal stenosis M48.062 Spinal region: lumbar Neurogenic claudication status: with neurogenic claudication Obstructive sleep apnea G47.33 Coronary artery disease I25.10 Coronary Disease-Associated Artery/Lesion type: [place] artery [place] vs. transplanted heart: [place] heart Associated angina: without angina DVT prophylaxis Z29.9 (1) Type 2 diabetes mellitus Diabetes mellitus snf insulin use: with snf use Diabetes mellitus complication status: with circulatory complication Diabetes mellitus complication detail: with peripheral angiopathy with gangrene Qualified Code(s): E11.52 - Type 2 diabetes mellitus with diabetic peripheral angiopathy with gangrene; Z79.4 - buttermaker (current) use of insulin (2) Spinal stenosis Spinal region: lumbar Neurogenic claudication status: with neurogenic claudication Qualified Code(s): M48.062 - Spinal stenosis, lumbar region with neurogenic claudication (3) Coronary artery disease Coronary Disease-Associated Artery/Lesion type: [place] artery [place] vs. transplanted heart: [place] heart Associated angina: without angina Qualified Code(s): I25.10 - Atherosclerotic heart disease of [place] coronary artery without angina pectoris
--- NOTE | 2019-07-16 12:52 | Billing Data ---
Date of Service July 16, 2019 Coding Level of Care Code 94572 Prolonged Care (int'l) Comment In the room with patient from 8:15am to 8:30am & 11:30am to 11:50.
--- NOTE | 2019-07-16 19:42 | Orthopedic Consultation ---
Date of Consultation July 16, 2019 Assessment & Plan (1) Chronic osteomyelitis of ankle and foot: I again stressed to him that this is a very bad situation. He has obvious chronic osteomyelitis of his left calcaneus that is not healing despite multiple debridement surgeries, and extensive course of IV antibiotics. He again has an open draining wound with purulent drainage from his heel after excision of a large portion of his calcaneus. He has been dealing with this chronic osteomy elitis now for about 8 months. I again stressed to him that I think it would be very difficult to ever return to weightbearing on this heel, with its chronic wound and now excision of the weightbearing portion of the calcaneus. I again advised him that the most reliable and definitive surgical treatment option for him would be a below-knee amputation. However, he stated that he would like to continue treatment with [facility] to attempt to salvage this foot. He can therefore be discharged when stable per the medicine team and follow-up with the [facility] team. If the medicine teams that he is to systemically ill, he can be transferred to [facility] for further care. If he changes his mind and would like to pursue amputation, he will let us know. History of Present Illness Reason for Consultation: Left heel ulcer, chronic osteomyelitis Attending Physician: Malik Fernandez MD History of Present Illness Mr. Cooper is a 68-year-old male who is known to me from 2 previous consultations in April 2019 for the same issue. In review, he has had this issue with chronic osteomyelitis of his calcaneus with an overlying left heel ulcer since of this year. He is diabetic and nonambulatory after previous spine surgery that got infected. He also has known peripheral artery disease with poor blood flow to his left leg with multiple calcified and clogged arteries. He previously had surgery with Dr. Guillermo from our group on February 06, where he underwent debridement of this heel ulcer. He had a special dressing stapled into place. He saw Dr. Guillermo in follow-up, last on March 17, and this dressing was left in place. He has since missed a few follow-up appointments with Dr. Guillermo due to admissions to the hospital. When I saw him In April, Dr. Guillermo recommended transfer to [facility] for evaluation for free flap coverage of this heel ulcer. He did have surgery at [facility] in [place] in May, where it looks like they performed a debridement surgery and partial calcanectomy. He recently went to a follow-up appointment on July 06 at [facility], where his sutures were removed. He then noted increased purulent drainage from the wound yesterday. Allergies Allergy/AdvReac Type Severity Reaction Status Date / Time lorazepam AdvReac Confusion Verified 07/15/19 12:45 sacubitril [From Entresto] AdvReac problems Verified 07/15/19 12:45 with bp valsartan [From Entresto] AdvReac problems Verified 07/15/19 12:45 with bp Home Medications Home Medications Medication Instructions Recorded Confirmed Type aspirin [Aspir-81] 81 mg PO QAM 12/01/18 07/15/19 History cholecalciferol (vitamin D3) 2,000 unit PO QAM 12/01/18 07/15/19 History [Vitamin D3] Therems-M 1 tab PO DAILY 03/23/19 07/15/19 History ascorbic acid (vitamin C) [Vitamin 500 mg PO QAM 03/23/19 07/15/19 History C] melatonin 5 mg PO HS 03/23/19 07/15/19 History tamsulosin 0.4 mg capsule 0.4 mg PO HS #90 cap 03/30/19 07/15/19 Rx levothyroxine [Synthroid] 25 mcg PO QAM 04/10/19 07/15/19 History pantoprazole [Protonix] 40 mg PO BID 04/10/19 07/15/19 History clopidogrel [Plavix] 75 mg PO QAM 04/12/19 07/15/19 History quetiapine 25 mg tablet 25 mg PO HS tab 04/22/19 07/15/19 History ferrous sulfate 325 mg (65 mg 325 mg PO BIDM tab 04/27/19 07/15/19 History iron) tablet,delayed release losartan 25 mg PO DAILY 05/06/19 07/15/19 History gabapentin 100 mg capsule 100 mg PO TID #90 cap 06/04/19 07/15/19 Rx insulin glargine 100 unit/mL (3 10 units SQ DAILY #15 ml 06/04/19 07/15/19 Rx mL) subcutaneous pen bumetanide 1 mg tablet 1 mg PO QAM #30 tab 06/24/19 07/15/19 Rx metoprolol succinate 25 mg 25 mg PO DAILY #30 tab 06/24/19 07/15/19 Rx tablet,extended release 24 hr finasteride 5 mg tablet 5 mg PO QAM #90 tab 06/25/19 07/15/19 Rx oxycodone 5 mg tablet 5 mg PO TID #90 tab 07/09/19 07/15/19 Rx Patient History Medical History Abscess in epidural space of lumbar spine Acute UTI (Acute) PAULA (acute kidney injury) Anemia Anxiety (Acute) C. difficile colitis CAD (coronary artery disease) CABG 2002 or so, severe multivessel disease - MD around time of paraspinal abscess earlier this year - medical mgmt of his CAD thus far Carotid artery stenosis (Acute) CHF (congestive heart failure) Chronic kidney disease, stage III (moderate) Chronic sinusitis [employer] 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 Admitted [facility] 10/18/11 for onset of incapacitating cervical myelopathy. Spinal tap showed [employer] Lyme disease, MRI showed severe spinal cord compression at C3-4 with myelomalacia and intramedullary mass. Pt had c-spine surgery, subsequent prolonged hospital admission, complicated post-op course. Depression (Acute) Diabetic peripheral neuropathy (Acute) Diabetic retinopathy (Acute) Disc degeneration, lumbar (Acute) Diverticulosis (Acute) DVT prophylaxis Dysphagia Full dentures (Acute) History of femoral angiogram adequate blood flow to foot History of non-ST elevation myocardial infarction (NSTEMI) HTN (hypertension) (Acute) ICD (implantable cardioverter-defibrillator) in place Ischemic cardiomyopathy EF WNL 11/2017 EF this year consistantly 25-30% Osteomyelitis of foot (Acute) Restless legs syndrome (Acute) Septic shock (Resolved) Spinal stenosis (Acute) Sudden cardiac Post-op 2011 [facility]. Now has ICD. Thyroid disorder (Acute) Vitamin D deficiency (Acute) Surgical History H/O cervical spine surgery (Acute) ACDI C3-4, C7 corpectomy, removal of C7 intramedullary mass. History of cardiac cath 2011 AT [facility] - UNSURE IF HE HAS STENTS. History of cataract extraction with lens replacement History of colonoscopy History of esophagogastroduodenoscopy (EGD) History of incision and drainage Lumbar spine on 08/11; complicated by difficult intubation with only #6.5 ETT able to be placed and patient kept intubated post op History of lumbar spinal fusion (Acute) History of lumbar surgery 09/10/18 Glidescope 3 okay visualization but difficulty passing ETT, unable to pass 8.0, able to pass 7.0 with some difficulty History of tracheostomy Hx of tonsillectomy (Acute) Hx of transurethral resection of prostate S/P triple vessel bypass (Acute) [facility] Family History Mother , age 68 of COPD and respiratory issues COPD (chronic obstructive pulmonary disease) Father , in his 40s of an MD Myocardial infarction Other Diabetes Hypertension No pertinent family history Social History Preferred Language: [place] Communication Ability: Effective Visual Impairment: No Limitations Hearing Ability: Normal Gusset Ripper Required: No Beliefs That Will Affect Care: None marital status: Current Living Situation: Spouse and Family Current Living Situation Comment: , son, dil 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al status: retired and disabled 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: 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 There is some erythema immediately surrounding the ulcer, a few centimeters in diameter. The foot is overall cool. He has decreased sensation diffusely, especially on the dorsal aspect of the foot. I cannot palpate a dorsalis pedis pulse. Results & Data ([facility]) Vital Signs (Past 12 Hours) Vital Signs Temp Pulse Resp BP Pulse Ox 07/16/19 15:27 36.8 C 61 18 97/55 L 100 07/16/19 11:26 36.6 C 64 18 102/66 100 Diagnostic Findings New x-rays of the left calcaneus were reviewed. He has interval excision of the entire posterior weightbearing aspect of the calcaneus. Again noted are severe calcifications of the arteries within his foot, consistent with peripheral vascular disease. (1) Chronic osteomyelitis of ankle and foot Laterality: left Qualified Code(s): M86.672 - Other chronic osteomyelitis, left ankle and foot
[2019-07-16] MEDS: ENOXAPARIN INJ 40 MG/0.4 ML SYR SQ SCH (20:55)
[2019-07-16] MEDS: TAMSULOSIN HCL 0.4 MG CAP PO SCH (20:58)
[2019-07-16] MEDS: QUETIAPINE FUMARATE 25 MG TABLET PO SCH (21:00)
[2019-07-17] MEDS: LEVOTHYROXINE SODIUM 25 MCG TABLET PO SCH (05:24)
[2019-07-17] MEDS: CEFEPIME 2,000 MG in SYRINGE 7.5 ML IV SCH (05:37)
[2019-07-17] MEDS ORDERED: VANCOMYCIN TROUGH ONE (08:30)
[2019-07-17 08:35] LABS: Hematocrit (blood only) 26.9 % (42-52); Hemoglobin 8.8 g/dL (14.0-18.0); Mean Corpuscular Hgb Conc 32.7 g/dL (32-36); Mean Corpuscular Volume 91.8 fL (80-100); Mean Platelet Volume 9.5 fL (7.4-10.4); Platelet Count 148 K/uL (130-400); RDW Coefficient of Variation 15.2 % (11.5-14.5); RDW Standard Deviation 50.8 fL (36.4-46.3); Red Blood Count 2.93 M/uL (4.7-6.1)
[2019-07-17] MEDS: BUMETANIDE 1 MG TAB PO SCH (08:54)
[2019-07-17] MEDS: ASPIRIN 81 MG ECTAB PO SCH (08:54)
[2019-07-17] MEDS: LOSARTAN POTASSIUM 25 MG TAB PO SCH (08:54)
[2019-07-17] MEDS: METOPROLOL SUCC 25MG EXT REL TAB PO SCH (08:54)
[2019-07-17] MEDS: CHOLECALCIFEROL 1,000 UNITS 25 MCG TAB PO SCH (08:55)
[2019-07-17] MEDS: MULTIVITAMIN TAB PO SCH (08:55)
[2019-07-17] MEDS: FINASTERIDE 5 MG TAB PO SCH (08:55)
[2019-07-17] MEDS: GABAPENTIN 100 MG CAP PO SCH ×3 (08:55→20:59)
[2019-07-17] MEDS: LACTOBACILLUS ACIDOPHILUS (FLORANEX) TAB PO SCH ×3 (08:55→17:13)
[2019-07-17] MEDS: CLOPIDOGREL BISULFATE 75 MG TAB PO SCH (08:55)
[2019-07-17] MEDS: FERROUS SULFATE 325 MG TAB PO SCH ×2 (08:55→17:14)
[2019-07-17] MEDS: ASCORBIC ACID 500 MG TAB PO SCH (08:55)
[2019-07-17] MEDS: PANTOprazole 40 MG TAB PO SCH ×2 (08:55→21:01)
[2019-07-17] MEDS: DOCUSATE SODIUM 100 MG CAP PO SCH ×2 (08:55→21:11)
[2019-07-17 09:01] LABS: BUN Creatinine Ratio 25.9 (10-20); Creatinine Clr Calc Pharmacy 71.7 ml/min; Est GFR (African American) 92.7; Potassium 3.9 mmol/L (3.5-5.1)
[2019-07-17] MEDS: INSULIN GLARGINE SOLOSTAR 100 UNITS/ML 3 ML PEN SC SCH (09:02)
[2019-07-17] MEDS: INSULIN ASPART 100 UNITS/ML 3 ML PEN SC SCH ×4 (09:02→21:17)
[2019-07-17] MEDS: VANCOMYCIN HCL 1,250 MG in SODIUM CHLORIDE 0.9% 250 ML IV SCH (09:10)
--- NOTE | 2019-07-17 09:54 | Pharmacy Report ---
Glycemic Control Consultation - Date of Service July 17, 2019 - Scope Scope: Glycemic Pharmacist consulted by Dr Nguyen on 07/16/19 for glycemic control and to write orders per [facility] inpatient glycemic control protocol - Objective Weight: 81.8 kg Accuchecks BSG (last 24hrs): 07/16/19 07/16/19 07/16/19 11:48 16:57 20:59 Glucose POC Glucose 148 H 143 H 206 H 07/17/19 07/17/19 08:08 08:26 Glucose 108 H POC Glucose 119 H Laboratory Data (last 24hrs): 07/17/19 08:26 Potassium 3.9 Carbon Dioxide 27 Anion Gap 5.0 Creatinine 0.98 Est Cr Clr Drug Dosing 71.7 HbA1c: Hemoglobin A1c 6.0 % (4.5-5.6) H 07/15/19 13:25 - Recent Pertinent Medications Outpatient Anti-diabetic Regimen: * Lantus 10 units daily * A1c = 6.0 % 07/15/19 Risk Factors for Insulin Resistance: * Infection: osteomyelitis of foot; Vancomycin & Cefepime * Diet: Type 2 DM - Assessment & Plan Assessment & Plan: ASSESSMENT: * 68 year old male admitted with chronic osteomyelitis of ankle and foot, on IV antibiotics. Type 2 diabetic known to pharmacy service. * Started on Lantus 13 units daily and CF/CR yesterday. * Fasting blood sugar 119mg/dl this morning - continue Lantus dose. * Most other blood sugars at goal, no further changes in CF/CR at this time. PLAN FOR INPATIENT GLYCEMIC CONTROL: * Basal insulin * Lantus 13 units SQ daily * Bolus insulin * NovoLog per scale ACHS or Q6hrs while NPO * Goal Range: Low 110 mg/dL - High 140 mg/dL * Correction Factor: 30 mg/dL/unit * Nutritional / Prandial insulin per carb ratio of 1 unit per 10 grams CHO consumed * Please note that the plan above was derived based on current level of insulin resistance and hospital stress. These recommendations are appropriate for inpatient admission only. Plan of care upon discharge will need to be reassessed to avoid potential outpatient hypo/hyperglycemia. Thank you.
--- NOTE | 2019-07-17 10:47 | Pharmacy Report ---
Pharmacy Abx Dose Progress Nt - Date of Service July 17, 2019 - Pharmacy Dosing Scope The patient is currently receiving the following antimicrobial agents per Pharmacy consult: Vancomycin 1250 mg IV every 14 hours - Objective Vital Signs (Past 12hrs): Vital Signs Temp Pulse Pulse Resp BP BP Pulse Ox 07/17/19 07:40 36.6 C 75 16 108/64 97 07/17/19 00:00 36.5 C 78 16 96/52 L 98 Lab Results (24hrs): Laboratory Tests (24 Hours) 07/17/19 07/17/19 07/17/19 08:26 08:26 08:26 WBC 6.50 Creatinine 0.98 Est Cr Clr Drug Dosing 71.7 Vancomycin Trough 24.5 Micro Results: Microbiology 07/15/19 12:41 Blood Anaerobic Blood Culture - Final 07/15/19 12:30 Foot,Left Gram Stain - Final 07/15/19 13:25 Blood Aerobic Blood Culture - Preliminary 07/15/19 13:25 Blood Anaerobic Blood Culture - Preliminary No growth in Aerobic bottle after 24 hours. No growth in Anaerobic bottle after 24 hours. 07/15/19 12:41 Blood Aerobic Blood Culture - Preliminary 07/15/19 12:41 Blood No growth in Aerobic bottle after 24 hours. 07/15/19 12:30 Foot,Left Deep Wound Culture - Preliminary Pseudomonas aeruginosa Pseudomonas aeruginosa#2 - Risk Factors for Resistance * Hospitalization for 48 hours or more within the past 90 days * History of infection with a multidrug-resistant organism: MRSA LEFT FOOT 01/2019 * Antimicrobial use within the last 90 days: Primaxin/Dapto - Assessment & Plan Assessment 68 year old M receiving IV Vancomycin and Cefepime for treatment of chronic os teomyelitis of Left foot Day # 3 of antimicrobial therapy No growth in blood cultures; foot cultures growing pseudomonas. Plan Vancomycin IV * Trough level of 24.5 mcg/mL is supratherapeutic * Change to Vancomycin 1250 mg IV every 18 hours * Goal trough level for osteo: 17-20 mcg/mL * Trough level ordered for: 07/19/19 prior to 1600 dose Cefepime 2g IV Q8H Pharmacy will continue to follow and will adjust dose/frequency as necessary. Thank you.
--- NOTE | 2019-07-17 11:34 | Hospitalist Progress Note ---
Date of Service July 17, 2019 Assessment & Plan (1) Chronic osteomyelitis of left foot: Recurrent osteomyelitis noted on XR appears new since non-calcaneal specific views taken at his ER visit in June. Stage 4 Pressure Ulcer to left Heel. - Orthopedics, vascular, and ID all consulted - appreciate help. Orthopedics is recommending BKA. - Follow cultures -> Growing multi-resistant Pseudomonas. Will start Zyrbaxa per ID. Discussed today. Will leave vancomycin until culture finalizes. - Called Sha Chavez today to update -> No response so far. (2) Type 2 diabetes mellitus: HbA1C was 6.0% this admission. - On lantus 10 units SQ daily at home - Sliding scale insulin - Continue gabapentin - Glycemic pharmacist consulted - Sugars ok today. (3) Ischemic cardiomyopathy: Chronic systolic (congestive) heart failure. Appears well compensated at present although I think the switches between hospitals has caused his medication list to not be accurate and I am unclear if he should be taking Entersto, losartan, or nothing at all a this time. - Continue beta-angy, ARB, and Bumex for now - Appears euvolemic today. No chest pain. No LE swelling. (4) Spinal stenosis: S/p multiple back surgeries and is effectively paraplegic at this time. - Monitor chronic Rojas - No inpatient issues (5) Obstructive sleep apnea: Will offer CPAP HS. (6) Coronary artery disease: As above (7) Hypothyroidism: TSH was 4.2 in 04/2019. - Continue home levothyroxine (8) DVT prophylaxis: Lovenox 40mg SQ daily Subjective Doing well. Heel has not improved or changed since yesterday. Reports no fevers/chills, chest pain, shortness of breath, abdominal pain, nausea, or vomiting. Physical Exam Constitutional: WD/WN, vitals as above + frail appearing Eyes: EOM intact bilaterally; no conjunctival abnormality ENMT: external ear and nose normal, oropharynx normal Neck: trachea midline, no thyromegaly normal visual inspection Respiratory: normal respiratory effort, lungs clear to auscultation no respiratory distress Cardiovascular: RRR, no murmur, no edema Gastrointestinal (Abdomen): Inspection/Auscultation: abdomen normal to inspection; abdomen not distended Musculoskeletal: no cyanosis or clubbing, extremities motor strength 5/5 Skin: + ulcer (Two ulcers on left leg. One at calcaneus and other on top of the hightower.) Neurologic: moves all extremities and awake Psychiatric: Orientation: alert, oriented to person and cooperative Results & Data ([facility]) Vital Signs (Past 12 Hours) Vital Signs Temp Pulse Pulse Resp BP BP Pulse Ox 07/17/19 07:40 36.6 C 75 16 108/64 97 07/17/19 00:00 36.5 C 78 16 96/52 L 98 PG Care Time/CCT Total # of Minutes Spent Total Time Spent with Patient: Total time spent is greater than 50% in coordination of care (as documented) at patient's floor/unit and/or counseling patient: Coding Level of Care Code 80348 Subseq Hosp Care Lvl 3 Diagnoses Chronic osteomyelitis of left foot M86.672 Type 2 diabetes mellitus E11.52; Z79.4 Diabetes mellitus complication detail: with peripheral angiopathy with gangrene Diabetes mellitus complication status: with circulatory complication Diabetes mellitus retail custodial associate insulin use: with chcf use Ischemic cardiomyopathy I25.5 Spinal stenosis M48.062 Neurogenic claudication status: with neurogenic claudication Spinal region: lumbar Obstructive sleep apnea G47.33 Coronary artery disease I25.10 Associated angina: without angina Coronary Disease-Associated Artery/Lesion type: [place] artery [place] vs. transplanted heart: [place] heart Hypothyroidism E03.9 DVT prophylaxis Z29.9 (1) Type 2 diabetes mellitus Diabetes mellitus complication detail: with peripheral angiopathy with gangrene Diabetes mellitus complication status: with circulatory complication Diabetes mellitus retail custodial associate insulin use: with chcf use Qualified Code(s): E11.52 - Type 2 diabetes mellitus with diabetic peripheral angiopathy with gangrene; Z79.4 - prison (current) use of insulin (2) Coronary artery disease Associated angina: without angina Coronary Disease-Associated Artery/Lesion type: [place] artery [place] vs. transplanted heart: [place] heart Qualified Code(s): I25.10 - Atherosclerotic heart disease of [place] coronary artery without angina pectoris (3) Spinal stenosis Neurogenic claudication status: with neurogenic claudication Spinal region: lumbar Qualified Code(s): M48.062 - Spinal stenosis, lumbar region with neurogenic claudication
--- NOTE | 2019-07-17 12:16 | Infectious Disease Progress Nt ---
Date of Service July 17, 2019 Assessment & Plan (1) Wound infection: will change to zerbaxa due to heavily resistant pseudomonas. will continue dapto for now. if no gpc can stop. blood cultures negative. discussed with patient and . is concerned that if he does not have additional, curative surgery that he will continue with recurrent infections. I am in agreement with this. BKA would be curative and is likely best option for treatment but he is not agreeable at this time. would like to further discuss with surgery. In the meantime he will continue on zerbaxa, likely min 6 weeks with weekly cbc, cmp, esr. and follow with surgery. will await decision, if bka is decided, this will be curative and no addtional abx needed. Subjective pt seen in f/u. no pain in foot. tolerating abx. afebrile. wbc 6, blood cultures negative, wound culture growing pseudomonas x 2 - heavily resistant. spoke to pt and via phone, informed of results. states he recently finished a prolonged course of meropenem and dapto, was following with [facility] for this, states completed abx on 06/30, was d/c from ID service due to normal labs. sutures removed on 07/06 and d/c from surgery service. now with + wound cultures again. He did see ortho this admission, refused bka as suggested, states now he would like to consider his options and will decide on surgery. no f/c. no abd pain, no n/v/d. Review of Systems Review of Systems: All systems reviewed & are unremarkable except as noted in HPI & below Physical Exam Constitutional: WD/WN, vitals as above Eyes: PERRL, conjunctivae normal, anicteric sclerae ENMT: external ear and nose normal, oropharynx normal Neck: normal visual inspection Respiratory: normal respiratory effort, lungs clear to auscultation Cardiovascular: RRR, no murmur, no edema Gastrointestinal (Abdomen): normal bowel sounds, soft, nontender, no hepatosplenomegaly Musculoskeletal: no cyanosis or clubbing, extremities motor strength 5/5 Skin: no rashes, warm and dry + wound (necrotic , no draiange, no erythema) Psychiatric: A+Ox3, euthymic affect Results & Data Vital Signs (Past 12 Hours) Vital Signs Temp Pulse Resp BP Pulse Ox 07/17/19 07:40 36.6 C 75 16 108/64 97 Laboratory Results Microbiology 07/15/19 12:30 Foot,Left Gram Stain - Final 07/15/19 12:30 Foot,Left Deep Wound Culture - Preliminary Pseudomonas aeruginosa Pseudomonas aeruginosa#2 07/15/19 12:41 Blood Aerobic Blood Culture - Preliminary No growth in Aerobic bottle after 24 hours. 07/15/19 12:41 Blood Anaerobic Blood Culture - Final 07/15/19 13:25 Blood Aerobic Blood Culture - Preliminary No growth in Aerobic bottle after 24 hours. 07/15/19 13:25 Blood Anaerobic Blood Culture - Preliminary No growth in Anaerobic bottle after 24 hours. PG Care Time/CCT Total # of Minutes Spent Total Time Spent with Patient: Total time spent is greater than 50% in coordination of care (as documented) at patient's floor/unit and/or counseling patient: Coding Level of Care Code 97723 Subseq Hosp Care Lvl 3 Diagnoses Wound infection T14.8XXA; L08.9
[2019-07-17] MEDS ORDERED: TAZOBACTAM IV SCH (12:30)
[2019-07-17] MEDS ORDERED: CEFTOLOZANE IV SCH (12:30)
[2019-07-17] MEDS: CEFTOLOZANE/TAZOBACTAM 1,500 MG in DEXTROSE 5% 100 ML IV SCH ×2 (12:46→21:11)
--- NOTE | 2019-07-17 15:08 | Billing Data ---
Date of Service July 17, 2019 Coding Level of Care Code 79874 Prolonged Care (int'l) Comment In the patient's room from 12:00pm to 12:25pm and 6:15pm to 6:30pm.
[2019-07-17] MEDS: ACETAMINOPHEN 325 MG TAB PO PRN (16:31)
[2019-07-17] MEDS: ENOXAPARIN INJ 40 MG/0.4 ML SYR SQ SCH (20:57)
[2019-07-17] MEDS: QUETIAPINE FUMARATE 25 MG TABLET PO SCH (21:00)
[2019-07-17] MEDS: TAMSULOSIN HCL 0.4 MG CAP PO SCH (21:00)
[2019-07-18] MEDS ORDERED: VANCOMYCIN HCL 1,250 MG in SODIUM CHLORIDE 0.9% 250 ML IV SCH (04:00)
[2019-07-18] MEDS: CEFTOLOZANE/TAZOBACTAM 1,500 MG in DEXTROSE 5% 100 ML IV SCH ×3 (05:57→20:23)
[2019-07-18] MEDS: LEVOTHYROXINE SODIUM 25 MCG TABLET PO SCH (05:59)
[2019-07-18 06:25] LABS: Hematocrit (blood only) 26.8 % (42-52); Hemoglobin 8.8 g/dL (14.0-18.0); Mean Corpuscular Hemoglobin 30.4 pg (25-34); Mean Corpuscular Hgb Conc 32.8 g/dL (32-36); Mean Corpuscular Volume 92.7 fL (80-100); Mean Platelet Volume 9.7 fL (7.4-10.4); Platelet Count 138 K/uL (130-400); RDW Coefficient of Variation 15.4 % (11.5-14.5); RDW Standard Deviation 52.4 fL (36.4-46.3); Red Blood Count 2.89 M/uL (4.7-6.1); White Blood Count 5.83 K/uL (4.8-10.8)
[2019-07-18 06:45] LABS: BUN Creatinine Ratio 27.3 (10-20); Calcium 8.8 mg/dl (8.5-10.1); Creatinine Clr Calc Pharmacy 75.6 ml/min; Est GFR (African American) 98.8; Est GFR (Non-African American) 85.2; Magnesium 1.9 mg/dl (1.8-2.4); Phosphorus 2.8 mg/dl (2.5-4.9); Potassium 3.4 mmol/L (3.5-5.1)
[2019-07-18] MEDS: MULTIVITAMIN TAB PO SCH (10:06)
[2019-07-18] MEDS: LACTOBACILLUS ACIDOPHILUS (FLORANEX) TAB PO SCH ×3 (10:06→18:02)
[2019-07-18] MEDS: METOPROLOL SUCC 25MG EXT REL TAB PO SCH (10:07)
[2019-07-18] MEDS: ASCORBIC ACID 500 MG TAB PO SCH (10:07)
[2019-07-18] MEDS: ASPIRIN 81 MG ECTAB PO SCH (10:08)
[2019-07-18] MEDS: FERROUS SULFATE 325 MG TAB PO SCH ×2 (10:08→18:05)
[2019-07-18] MEDS: PANTOprazole 40 MG TAB PO SCH ×2 (10:08→20:25)
[2019-07-18] MEDS: GABAPENTIN 100 MG CAP PO SCH ×3 (10:08→20:26)
[2019-07-18] MEDS: CHOLECALCIFEROL 1,000 UNITS 25 MCG TAB PO SCH (10:09)
[2019-07-18] MEDS: BUMETANIDE 1 MG TAB PO SCH (10:09)
[2019-07-18] MEDS: CLOPIDOGREL BISULFATE 75 MG TAB PO SCH (10:10)
[2019-07-18] MEDS: FINASTERIDE 5 MG TAB PO SCH (10:10)
[2019-07-18] MEDS: LOSARTAN POTASSIUM 25 MG TAB PO SCH (10:10)
[2019-07-18] MEDS: INSULIN GLARGINE SOLOSTAR 100 UNITS/ML 3 ML PEN SC SCH (10:14)
[2019-07-18] MEDS: INSULIN ASPART 100 UNITS/ML 3 ML PEN SC SCH ×4 (10:15→20:57)
[2019-07-18] MEDS: DOCUSATE SODIUM 100 MG CAP PO SCH ×2 (10:59→20:32)
--- NOTE | 2019-07-18 13:51 | Hospitalist Progress Note ---
Date of Service July 18, 2019 Assessment & Plan (1) Chronic osteomyelitis of left foot: Recurrent osteomyelitis noted on XR appears new since non-calcaneal specific views taken at his ER visit in June. Stage 4 Pressure Ulcer to left Heel. - Orthopedics, vascular, and ID all consulted - appreciate help. Orthopedics is recommending BKA. - Follow cultures -> Grew multi-resistant Pseudomonas. Started on Zyrbaxa on 07/17 per ID. - Stopped vancomycin on 07/18 for no MRSA or other Gram(+) bacteria found on culture. - Called his [facility] orthopedic surgeon - Vincenzo Thomson. Message was never delivered, so I cannot get ahold of him until Saturday. Patient and would like Dr. Thomson to weigh in before amputation. (2) Type 2 diabetes mellitus: HbA1C was 6.0% this admission. - On lantus 10 units SQ daily at home - Sliding scale insulin - Continue gabapentin - Glycemic pharmacist consulted - Sugars are 120-190 today. Adequate. (3) Ischemic cardiomyopathy: Chronic systolic (congestive) heart failure. Appears well compensated at present although I think the switches between hospitals has caused his medication list to not be accurate and I am unclear if he should be taking Entersto, losartan, or nothing at all a this time. - Continue beta-angy, ARB, and Bumex for now - Appears euvolemic today. No chest pain. No LE swelling. Kidneys stable. (4) Spinal stenosis: S/p multiple back surgeries and is effectively paraplegic at this time. - Monitor chronic Rojas - No inpatient issues (5) Obstructive sleep apnea: Will offer CPAP HS. (6) Coronary artery disease: As above (7) Hypothyroidism: TSH was 4.2 in 04/2019. - Continue home levothyroxine (8) DVT prophylaxis: Lovenox 40mg SQ daily Subjective Stable today. No major concerns. Foot is still black. Reports no fevers/chills, chest pain, shortness of breath, abdominal pain, nausea, or vomiting. Physical Exam Constitutional: WD/WN, vitals as above + frail appearing Eyes: EOM intact bilaterally; no conjunctival abnormality ENMT: external ear and nose normal, oropharynx normal Neck: trachea midline, no thyromegaly normal visual inspection Respiratory: normal respiratory effort, lungs clear to auscultation no respiratory distress Cardiovascular: RRR, no murmur, no edema Gastrointestinal (Abdomen): Inspection/Auscultation: abdomen normal to inspection; abdomen not distended Musculoskeletal: no cyanosis or clubbing, extremities motor strength 5/5 Skin: + ulcer (Two ulcers on left leg. One at calcaneus and other on top of the hightower.) Neurologic: moves all extremities and awake Psychiatric: Orientation: alert, oriented to person and cooperative Results & Data ([facility]) Vital Signs (Past 12 Hours) Vital Signs Temp Pulse Resp BP Pulse Ox 07/18/19 08:28 36.6 C 62 16 113/66 97 PG Care Time/CCT Total # of Minutes Spent Total Time Spent with Patient: Total time spent is greater than 50% in coordination of care (as documented) at patient's floor/unit and/or counseling patient: Coding Level of Care Code 00680 Subseq Hosp Care Lvl 2 Diagnoses Chronic osteomyelitis of left foot M86.672 Type 2 diabetes mellitus E11.52; Z79.4 Diabetes mellitus prosthetist insulin use: with penitentiary use Diabetes mellitus complication status: with circulatory complication Diabetes mellitus complication detail: with peripheral angiopathy with gangrene Ischemic cardiomyopathy I25.5 Spinal stenosis M48.062 Spinal region: lumbar Neurogenic claudication status: with neurogenic claudication Obstructive sleep apnea G47.33 Coronary artery disease I25.10 Coronary Disease-Associated Artery/Lesion type: [place] artery [place] vs. transplanted heart: [place] heart Associated angina: without angina Hypothyroidism E03.9 DVT prophylaxis Z29.9 (1) Type 2 diabetes mellitus Diabetes mellitus penitentiary insulin use: with prosthetist use Diabetes mellitus complication status: with circulatory complication Diabetes mellitus complication detail: with peripheral angiopathy with gangrene Qualified Code(s): E11.52 - Type 2 diabetes mellitus with diabetic peripheral angiopathy with gangrene; Z79.4 - residential (current) use of insulin (2) Spinal stenosis Spinal region: lumbar Neurogenic claudication status: with neurogenic claudication Qualified Code(s): M48.062 - Spinal stenosis, lumbar region with neurogenic claudication (3) Coronary artery disease Coronary Disease-Associated Artery/Lesion type: [place] artery [place] vs. transplanted heart: [place] heart Associated angina: without angina Qualified Code(s): I25.10 - Atherosclerotic heart disease of [place] coronary artery without angina pectoris
[2019-07-18] MEDS: ENOXAPARIN INJ 40 MG/0.4 ML SYR SQ SCH (20:24)
[2019-07-18] MEDS: TAMSULOSIN HCL 0.4 MG CAP PO SCH (20:25)
[2019-07-18] MEDS: QUETIAPINE FUMARATE 25 MG TABLET PO SCH (20:26)
[2019-07-19] MEDS: CEFTOLOZANE/TAZOBACTAM 1,500 MG in DEXTROSE 5% 100 ML IV SCH ×3 (05:10→20:37)
[2019-07-19] MEDS: LEVOTHYROXINE SODIUM 25 MCG TABLET PO SCH (05:14)
[2019-07-19 05:24] LABS: Hematocrit (blood only) 27.2 % (42-52); Hemoglobin 8.8 g/dL (14.0-18.0); Mean Corpuscular Hgb Conc 32.4 g/dL (32-36); Mean Corpuscular Volume 92.8 fL (80-100); Mean Platelet Volume 10.3 fL (7.4-10.4); Platelet Count 148 K/uL (130-400); RDW Coefficient of Variation 15.6 % (11.5-14.5); RDW Standard Deviation 53.1 fL (36.4-46.3); Red Blood Count 2.93 M/uL (4.7-6.1); White Blood Count 8.12 K/uL (4.8-10.8)
[2019-07-19 05:56] LABS: BUN Creatinine Ratio 30.2 (10-20); Calcium 8.8 mg/dl (8.5-10.1); Creatinine Clr Calc Pharmacy 77.3 ml/min; Est GFR (African American) 101.4; Est GFR (Non-African American) 87.5; Potassium 3.1 mmol/L (3.5-5.1)
[2019-07-19] MEDS: POTASSIUM CHLORIDE 10 MEQ TABCR PO SCH ×2 (09:37→20:36)
[2019-07-19] MEDS: LOSARTAN POTASSIUM 25 MG TAB PO SCH (09:38)
[2019-07-19] MEDS: CLOPIDOGREL BISULFATE 75 MG TAB PO SCH (09:38)
[2019-07-19] MEDS: METOPROLOL SUCC 25MG EXT REL TAB PO SCH (09:38)
[2019-07-19] MEDS: MULTIVITAMIN TAB PO SCH (09:38)
[2019-07-19] MEDS: CHOLECALCIFEROL 1,000 UNITS 25 MCG TAB PO SCH (09:39)
[2019-07-19] MEDS: LACTOBACILLUS ACIDOPHILUS (FLORANEX) TAB PO SCH ×3 (09:39→18:12)
[2019-07-19] MEDS: DOCUSATE SODIUM 100 MG CAP PO SCH ×2 (09:39→20:33)
[2019-07-19] MEDS: PANTOprazole 40 MG TAB PO SCH ×2 (09:40→20:36)
[2019-07-19] MEDS: FINASTERIDE 5 MG TAB PO SCH (09:40)
[2019-07-19] MEDS: GABAPENTIN 100 MG CAP PO SCH ×3 (09:40→20:36)
[2019-07-19] MEDS: BUMETANIDE 1 MG TAB PO SCH (09:41)
[2019-07-19] MEDS: ASCORBIC ACID 500 MG TAB PO SCH (09:41)
[2019-07-19] MEDS: ASPIRIN 81 MG ECTAB PO SCH (09:41)
[2019-07-19] MEDS: FERROUS SULFATE 325 MG TAB PO SCH ×2 (09:42→18:22)
[2019-07-19] MEDS: INSULIN GLARGINE SOLOSTAR 100 UNITS/ML 3 ML PEN SC SCH (09:43)
[2019-07-19] MEDS: INSULIN ASPART 100 UNITS/ML 3 ML PEN SC SCH ×4 (09:46→21:45)
--- NOTE | 2019-07-19 14:20 | Pharmacy Report ---
Pharmacy Glycemic Short Note 2 - Date of Service July 19, 2019 - Glycemic Short BSG Results (Last 24 hours): 07/18/19 07/18/19 07/19/19 17:19 20:37 04:49 Glucose 120 H POC Glucose 136 H 159 H 07/19/19 07/19/19 08:06 12:21 Glucose POC Glucose 134 H 146 H OUTPATIENT ANTIDIABETIC REGIMEN: * Lantus 10 units daily * A1c = 6.0 % 07/15/19 ASSESSMENT: 68 year old male admitted with chronic osteomyelitis of ankle and foot, on IV antibiotics. Type 2 diabetic known to pharmacy service. * Pt received 31 units of insulin yesterday (13 units of basal and 18 units of bolus) * Excellent glycemic control over the past 48 hours, therefore no changes will be made to insulin regimen PLAN FOR INPATIENT GLYCEMIC CONTROL: * Basal insulin * Lantus 13 units SQ daily * Bolus insulin * NovoLog per scale ACHS or Q6hrs while NPO * Goal Range: Low 110 mg/dL - High 140 mg/dL * Correction Factor: 30 mg/dL/unit * Nutritional / Prandial insulin per carb ratio of 1 unit per 8 grams CHO consumed PLAN FOR DISCHARGE: * A1c of 6.0% is at goal * Continue home regimen of Lantus once daily on discharge
--- NOTE | 2019-07-19 14:40 | Hospitalist Progress Note ---
Date of Service July 19, 2019 Assessment & Plan (1) Chronic osteomyelitis of left foot: Recurrent osteomyelitis noted on XR appears new since non-calcaneal specific views taken at his ER visit in June. Stage 4 Pressure Ulcer to left Heel. - Orthopedics, vascular, and ID all consulted - appreciate help. Orthopedics is recommending BKA. - Follow cultures -> Grew multi-resistant Pseudomonas. Started on Zyrbaxa on 07/17 per ID. - Stopped vancomycin on 07/18 for no MRSA or other Gram(+) bacteria found on culture. - Called his [facility] orthopedic surgeon - Vincenzo Thomson. Message was never delivered, so I cannot get ahold of him until Saturday. Patient and would like Dr. Thomson to weigh in before amputation. - Both [facility] ortho and the [facility] PA feel this is non-urgent, and he can go home on abx and arrange amputation while outpatient. - Script for Zyrbaxa 1,500 mg Q8h to case management on Saturday. PICC/midline order placed. (2) Type 2 diabetes mellitus: HbA1C was 6.0% this admission. - On Lantus 10 units SQ daily at home - Sliding scale insulin - Continue gabapentin - Glycemic pharmacist consulted - Sugars are 120-160 today. Control is good today. (3) Ischemic cardiomyopathy: Chronic systolic (congestive) heart failure. Appears well compensated at present although I think the switches between hospitals has caused his medica tion list to not be accurate and I am unclear if he should be taking Entersto, losartan, or nothing at all a this time. - Continue beta-angy, ARB, and Bumex for now - Appears euvolemic today. No chest pain. No LE swelling. Kidneys stable. (4) Spinal stenosis: S/p multiple back surgeries and is effectively paraplegic at this time. - Monitor chronic Rojas - No inpatient issues (5) Obstructive sleep apnea: Will offer CPAP HS. (6) Coronary artery disease: As above (7) Hypothyroidism: TSH was 4.2 in 04/2019. - Continue home levothyroxine (8) DVT prophylaxis: Lovenox 40mg SQ daily Subjective Doing well. Heel feels the same. Reports no fevers/chills, chest pain, shortness of breath, abdominal pain, nausea, or vomiting. Physical Exam Constitutional: WD/WN, vitals as above + frail appearing Eyes: EOM intact bilaterally; no conjunctival abnormality ENMT: external ear and nose normal, oropharynx normal Neck: trachea midline, no thyromegaly normal visual inspection Respiratory: normal respiratory effort, lungs clear to auscultation no respiratory distress Cardiovascular: RRR, no murmur, no edema Gastrointestinal (Abdomen): Inspection/Auscultation: abdomen normal to inspection; abdomen not distended Musculoskeletal: no cyanosis or clubbing, extremities motor strength 5/5 Skin: + ulcer (Two ulcers on left leg. One at calcaneus and other on top of the hightower.) Neurologic: moves all extremities and awake Psychiatric: Orientation: alert, oriented to person and cooperative [facility] Vital Signs (Past 12 Hours) Vital Signs Temp Pulse Resp BP Pulse Ox 07/19/19 07:46 36.9 C 78 18 145/71 H 99 PG Care Time/CCT Total # of Minutes Spent Total Time Spent with Patient: Total time spent is greater than 50% in coordination of care (as documented) at patient's floor/unit and/or counseling patient: Coding Level of Care Code 90049 Subseq Hosp Care Lvl 2 Diagnoses Chronic osteomyelitis of left foot M86.672 Type 2 diabetes mellitus E11.52; Z79.4 Diabetes mellitus mcc insulin use: with mcc use Diabetes mellitus complication status: with circulatory complication Diabetes mellitus complication detail: with peripheral angiopathy with gangrene Ischemic cardiomyopathy I25.5 Spinal stenosis M48.062 Spinal region: lumbar Neurogenic claudication status: with neurogenic claudication Obstructive sleep apnea G47.33 Coronary artery disease I25.10 Coronary Disease-Associated Artery/Lesion type: [place] artery [place] vs. transplanted heart: [place] heart Associated angina: without angina Hypothyroidism E03.9 DVT prophylaxis Z29.9 (1) Type 2 diabetes mellitus Diabetes mellitus health and human performance professor insulin use: with mcc use Diabetes mellitus complication status: with circulatory complication Diabetes mellitus complication detail: with peripheral angiopathy with gangrene Qualified Code(s): E11.52 - Type 2 diabetes mellitus with diabetic peripheral angiopathy with gangrene; Z79.4 - continuous churn buttermaker (current) use of insulin (2) Spinal stenosis Spinal region: lumbar Neurogenic claudication status: with neurogenic claudication Qualified Code(s): M48.062 - Spinal stenosis, lumbar region with neurogenic claudication (3) Coronary artery disease Coronary Disease-Associated Artery/Lesion type: [place] artery [place] vs. transplanted heart: [place] heart Associated angina: without angina Qualified Code(s): I25.10 - Atherosclerotic heart disease of [place] coronary artery without angina pectoris
[2019-07-19] MEDS ORDERED: VANCOMYCIN TROUGH ONE (15:30)
[2019-07-19 16:29] LABS: Cdiff Antigen Positive
[2019-07-19 16:32] LABS: Cdiff Toxin A+B Positive Cdiff Toxin (Negative)
[2019-07-19] MEDS: VANCOMYCIN HCL 125 MG/2.5ML SOLN PO SCH ×2 (18:13→23:54)
[2019-07-19] MEDS: RASPBERRY SYRUP 5 ML UDP PO SCH ×2 (18:13→23:54)
[2019-07-19] MEDS: ACETAMINOPHEN 325 MG TAB PO PRN ×2 (18:21→22:35)
[2019-07-19] MEDS: ENOXAPARIN INJ 40 MG/0.4 ML SYR SQ SCH (20:34)
[2019-07-19] MEDS: TAMSULOSIN HCL 0.4 MG CAP PO SCH (20:36)
[2019-07-19] MEDS: QUETIAPINE FUMARATE 25 MG TABLET PO SCH (20:36)
[2019-07-20] MEDS: CEFTOLOZANE/TAZOBACTAM 1,500 MG in DEXTROSE 5% 100 ML IV SCH ×3 (05:04→20:41)
[2019-07-20 05:11] LABS: Hematocrit (blood only) 25.9 % (42-52); Hemoglobin 8.4 g/dL (14.0-18.0); Mean Corpuscular Hemoglobin 30.1 pg (25-34); Mean Corpuscular Hgb Conc 32.4 g/dL (32-36); Mean Corpuscular Volume 92.8 fL (80-100); Mean Platelet Volume 9.9 fL (7.4-10.4); Platelet Count 131 K/uL (130-400); RDW Coefficient of Variation 15.5 % (11.5-14.5); RDW Standard Deviation 52.9 fL (36.4-46.3); Red Blood Count 2.79 M/uL (4.7-6.1); White Blood Count 11.81 K/uL (4.8-10.8)
[2019-07-20] MEDS: LEVOTHYROXINE SODIUM 25 MCG TABLET PO SCH (05:38)
[2019-07-20] MEDS: VANCOMYCIN HCL 125 MG/2.5ML SOLN PO SCH ×4 (05:38→23:58)
[2019-07-20] MEDS: RASPBERRY SYRUP 5 ML UDP PO SCH ×4 (05:38→23:58)
[2019-07-20 05:41] LABS: BUN Creatinine Ratio 26.8 (10-20); Calcium 8.7 mg/dl (8.5-10.1); Est GFR (African American) 103.3; Est GFR (Non-African American) 89.1; Potassium 3.3 mmol/L (3.5-5.1)
[2019-07-20] MEDS ORDERED: POTASSIUM CHLORIDE 20 MEQ TABCR PO STA (08:29)
[2019-07-20] MEDS: INSULIN ASPART 100 UNITS/ML 3 ML PEN SC SCH ×4 (08:38→20:37)
[2019-07-20] MEDS: INSULIN GLARGINE SOLOSTAR 100 UNITS/ML 3 ML PEN SC SCH (08:39)
[2019-07-20] MEDS: LOSARTAN POTASSIUM 25 MG TAB PO SCH (08:40)
[2019-07-20] MEDS: GABAPENTIN 100 MG CAP PO SCH ×3 (08:40→20:35)
[2019-07-20] MEDS: CLOPIDOGREL BISULFATE 75 MG TAB PO SCH (08:40)
[2019-07-20] MEDS: FINASTERIDE 5 MG TAB PO SCH (08:40)
[2019-07-20] MEDS: ASPIRIN 81 MG ECTAB PO SCH (08:40)
[2019-07-20] MEDS: ASCORBIC ACID 500 MG TAB PO SCH (08:40)
[2019-07-20] MEDS: MULTIVITAMIN TAB PO SCH (08:40)
[2019-07-20] MEDS: PANTOprazole 40 MG TAB PO SCH ×2 (08:40→20:35)
[2019-07-20] MEDS: BUMETANIDE 1 MG TAB PO SCH (08:40)
[2019-07-20] MEDS: METOPROLOL SUCC 25MG EXT REL TAB PO SCH (08:41)
[2019-07-20] MEDS: DOCUSATE SODIUM 100 MG CAP PO SCH ×2 (08:41→20:35)
[2019-07-20] MEDS: LACTOBACILLUS ACIDOPHILUS (FLORANEX) TAB PO SCH ×3 (08:41→18:00)
[2019-07-20] MEDS: FERROUS SULFATE 325 MG TAB PO SCH ×2 (08:41→18:00)
[2019-07-20] MEDS: CHOLECALCIFEROL 1,000 UNITS 25 MCG TAB PO SCH (08:41)
[2019-07-20] MEDS ORDERED: CARBAMIDE PEROXIDE 6.5% 15 ML BTL OT PRN (14:50)
--- NOTE | 2019-07-20 15:18 | Hospitalist Progress Note ---
Date of Service July 20, 2019 Assessment & Plan (1) Chronic osteomyelitis of left foot: - Recurrent osteomyelitis noted on XR; stage 4 pressure ulcer to left heel. - Orthopedics, vascular and ID all following. Recommending BKA. - Cultures +multi drug resistant Pseudomonas. Currently on Zerbaxa, will need 6 week course or until amputation per ID. - D/c'ed Vanco -- MRSA negative. - Discussed case with PA from [facility], Dr. Thomson also agrees with amputation. - Will need US guided PIV prior to discharge and home nursing, weekly labs -- plan for discharge tomorrow. (2) C. difficile colitis: - C. diff positive -- on Vancomycin QID. - H/o C. diff in April 2019; will need tapering course during this recurrence. - Recommend to d/c IV abx when possible following amputation. (3) Type 2 diabetes mellitus: - HbA1C was 6.0% this admission. - SSI and Lantus coverage. - Pharmacy consulted for glycemic management. (4) Chronic systolic heart failure: - Most recent echo in Apr 2019 showed EF 30-35%, regional wall motion abnormalities, akinetic inferior wall and global hypokinesis. - Monitor daily weights and I/Os -- currently appears euvolemic. - Continue Losartan, Metoprolol as prescribed. - Continue Bumex 1 mg PO daily. - Follows with Kelly Lopez PA-C from HF clinic. (5) Ischemic cardiomyopathy: - Continue home medications. (6) Spinal stenosis: - S/p multiple back surgeries and is effectively paraplegic at this time. - Chronic luna, exchange as scheduled. (7) Coronary artery disease: - S/p CABG x 3 in 2002 --DELATORRE to LAD, FERNANDO to marginal, radial graft to OM. - S/p defibrillator as well. - Most recent cardiac cath Jul 2018 - subtotal occluded ramus intermediate branch, total occlusion of the mid LAD, 80% proximal OM2 disease, severe mid RCA disease 95% and 90%. - Continue ASA, Metoprolol, Plavix, Losartan, statin as prescribed. (8) PAD (peripheral artery disease): - Continue ASA, Plavix, statin as prescribed. (9) HTN (hypertension): - Continue Bumex, Metoprolol, Losartan as prescribed. (10) High cholesterol: - Continue ASA and statin as prescribed. (11) Anemia in chronic illness: - Likely related to multiple medical co-morbidities. - Monitor CBC frequently. (12) BPH (benign prostatic hyperplasia): - Continue Flomax and Proscar. - Chronic luna. (13) Hypothyroidism: - TSH was 4.2 in 04/2019. - Continue home levothyroxine as prescribed. (14) Obstructive sleep apnea: - Recommend CPAP qhs. (15) DVT prophylaxis: - Lovenox 40mg SQ daily. K level 3.3 - ordered KCl 40 mEq PO. Dispo: Discharge to home likely on 07/21/19. Will need home with home health, IV abx until completion of amputation. Admission and Anticipated Discharge Date Admission Date: July 15, 2019 Anticipated date of discharge: 07/21/19 Supervising Physician Co-Signing Physician Notes PA Supervision Note: I did not personally see or examine the patient today, but I verified all husain points of SIMEON Shaver's assessment and plan with the following exceptions/additions: None Subjective Pt. is doing well overall. He denies foot/ankle pain. Does request Debrox for ear wax removal. Discussed case with PA from [facility]; physician also agrees with amputation per chart review from this morning. The patient will likely complete amputation with [facility] group, will need appt with Dr. Guillermo in outpt clinic. Review of Systems Review of Systems: All systems reviewed & are unremarkable except as noted in HPI & below Constitutional: + fatigue and + weakness; no fever and no chills Respiratory: no cough, no dyspnea and no dyspnea on exertion Cardiovascular: no chest pain, no palpitations and no edema Gastrointestinal: no abdominal pain, no nausea, no vomiting and no constipation Genitourinary: no difficulty urinating Musculoskeletal: no back pain and no joint pain Integumentary: + non-healing lesions, + skin ulcer and + sores; no erythema Physical Exam Physical Exam: General: Resting comfortably HEENT: NC/AT; PERRLA with EOMI; [place] conjunctiva, MMM. No erythema of posterior pharynx Neck: Supple and nontender Cardiac: RRR Lungs: CTA bilaterally Abdomen: Bowel normoactive X 4; Nontender to palpation Extremities: Warm. No edema present Neuro: No focal weakness Skin: Two ulcers on left leg/ankle -- one at calcaneus and one on top of hightower. Nontender to light palpation. Results & Data ([facility]) Vital Signs (Past 12 Hours) Vital Signs Temp Pulse Resp BP Pulse Ox 07/20/19 07:20 36.7 C 69 16 121/64 99 Laboratory Results 07/20/19 07/20/19 07/20/19 Range/Units 12:01 08:20 04:53 WBC (4.8-10.8) K/uL RBC (4.7-6.1) M/uL Hgb (14.0-18.0) g/dL Hct (42-52) % MCV (80-100) fL MCH (25-34) pg MCHC (32-36) g/dL RDW Std Deviation (36.4-46.3) fL RDW Coeff of Norbert (11.5-14.5) % Plt Count (130-400) K/uL MPV (7.4-10.4) fL Sodium (136-145) mmol/L Potassium (3.5-5.1) mmol/L Chloride (98-107) mmol/L Carbon Dioxide (21-32) mmol/L Anion Gap (3-11) BUN (7-18) mg/dl Creatinine (0.6-1.4) mg/dl Est Cr Clr Drug Dosing ml/min Est GFR ( Amer) Est GFR (Non-Af Amer) BUN/Creatinine Ratio (10-20) Glucose (70-99) mg/dl POC Glucose 131 H 118 H (70-99) mg/dl Calcium (8.5-10.1) mg/dl Magnesium 1.8 (1.8-2.4) mg/dl Stl C.difficile Tox A&B (Negative) 07/20/19 07/20/19 07/19/19 Range/Units 04:53 04:53 20:55 WBC 11.81 H (4.8-10.8) K/uL RBC 2.79 L (4.7-6.1) M/uL Hgb 8.4 L (14.0-18.0) g/dL Hct 25.9 L (42-52) % MCV 92.8 (80-100) fL MCH 30.1 (25-34) pg MCHC 32.4 (32-36) g/dL RDW Std Deviation 52.9 H (36.4-46.3) fL RDW Coeff of Norbert 15.5 H (11.5-14.5) % Plt Count 131 (130-400) K/uL MPV 9.9 (7.4-10.4) fL Sodium 138 (136-145) mmol/L Potassium 3.3 L (3.5-5.1) mmol/L Chloride 108 H (98-107) mmol/L Carbon Dioxide 27 (21-32) mmol/L Anion Gap 3.0 (3-11) BUN 24 H (7-18) mg/dl Creatinine 0.89 (0.6-1.4) mg/dl Est Cr Clr Drug Dosing 79.0 ml/min Est GFR ( Amer) 103.3 Est GFR (Non-Af Amer) 89.1 BUN/Creatinine Ratio 26.8 H (10-20) Glucose 108 H (70-99) mg/dl POC Glucose 168 H (70-99) mg/dl Calcium 8.7 (8.5-10.1) mg/dl Magnesium (1.8-2.4) mg/dl Stl C.difficile Tox A&B (Negative) 07/19/19 07/19/19 Range/Units 17:13 13:55 WBC (4.8-10.8) K/uL RBC (4.7-6.1) M/uL Hgb (14.0-18.0) g/dL Hct (42-52) % MCV (80-100) fL MCH (25-34) pg MCHC (32-36) g/dL RDW Std Deviation (36.4-46.3) fL RDW Coeff of Norbert (11.5-14.5) % Plt Count (130-400) K/uL MPV (7.4-10.4) fL Sodium (136-145) mmol/L Potassium (3.5-5.1) mmol/L Chloride (98-107) mmol/L Carbon Dioxide (21-32) mmol/L Anion Gap (3-11) BUN (7-18) mg/dl Creatinine (0.6-1.4) mg/dl Est Cr Clr Drug Dosing ml/min Est GFR ( Amer) Est GFR (Non-Af Amer) BUN/Creatinine Ratio (10-20) Glucose (70-99) mg/dl POC Glucose 102 H (70-99) mg/dl Calcium (8.5-10.1) mg/dl Magnesium (1.8-2.4) mg/dl Stl C.difficile Tox A&B Positive Cdiff Toxin A* (Negative) PG Care Time/CCT Total # of Minutes Spent Total Time Spent with Patient: Total time spent is greater than 50% in coordination of care (as documented) at patient's floor/unit and/or counseling patient: Coding Level of Care Code 59440 Subseq Hosp Care Lvl 2 Diagnoses Chronic osteomyelitis of left foot M86.672 C. difficile colitis A04.72 Type 2 diabetes mellitus E11.52; Z79.4 Diabetes mellitus complication detail: with peripheral angiopathy with gangrene Diabetes mellitus complication status: with circulatory complication Diabetes mellitus minister assistant insulin use: with assisted use Chronic systolic heart failure I50.22 Ischemic cardiomyopathy I25.5 Spinal stenosis M48.062 Neurogenic claudication status: with neurogenic claudication Spinal region: lumbar Coronary artery disease I25.10 Associated angina: without angina Coronary Disease-Associated Artery/Lesion type: [place] artery [place] vs. transplanted heart: [place] heart PAD (peripheral artery disease) I73.9 HTN (hypertension) I10 Hypertension type: essential hypertension High cholesterol E78.00 Anemia in chronic illness D63.8 BPH (benign prostatic hyperplasia) N40.0 Lower urinary tract symptom presence: unspecified whether lower urinary tract symptoms present Hypothyroidism E03.9 Obstructive sleep apnea G47.33 DVT prophylaxis Z29.9 (1) BPH (benign prostatic hyperplasia) Lower urinary tract symptom presence: unspecified whether lower urinary tract symptoms present Qualified Code(s): N40.0 - Benign prostatic hyperplasia without lower urinary tract symptoms (2) Type 2 diabetes mellitus Diabetes mellitus complication detail: with peripheral angiopathy with gangrene Diabetes mellitus complication status: with circulatory complication Diabetes mellitus minister assistant insulin use: with minister assistant use Qualified Code(s): E11.52 - Type 2 diabetes mellitus with diabetic peripheral angiopathy with gangrene; Z79.4 - heating and ventilation engineer (current) use of insulin (3) Coronary artery disease Associated angina: without angina Coronary Disease-Associated Artery/Lesion type: [place] artery [place] vs. transplanted heart: [place] heart Qualified Code(s): I25.10 - Atherosclerotic heart disease of [place] coronary artery without angina pectoris (4) Spinal stenosis Neurogenic claudication status: with neurogenic claudication Spinal region: lumbar Qualified Code(s): M48.062 - Spinal stenosis, lumbar region with neurogenic claudication (5) HTN (hypertension) Hypertension type: essential hypertension Qualified Code(s): I10 - Essential (primary) hypertension
[2019-07-20] MEDS: QUETIAPINE FUMARATE 25 MG TABLET PO SCH (20:35)
[2019-07-20] MEDS: TAMSULOSIN HCL 0.4 MG CAP PO SCH (20:35)
[2019-07-20] MEDS: ENOXAPARIN INJ 40 MG/0.4 ML SYR SQ SCH (20:36)
[2019-07-20] MEDS: ACETAMINOPHEN 325 MG TAB PO PRN (21:30)
[2019-07-21] MEDS: CEFTOLOZANE/TAZOBACTAM 1,500 MG in DEXTROSE 5% 100 ML IV SCH (05:06)
[2019-07-21 05:27] LABS: Hematocrit (blood only) 25.4 % (42-52); Hemoglobin 8.5 g/dL (14.0-18.0); Mean Corpuscular Hemoglobin 30.5 pg (25-34); Mean Corpuscular Hgb Conc 33.5 g/dL (32-36); Mean Platelet Volume 9.5 fL (7.4-10.4); Platelet Count 141 K/uL (130-400); RDW Coefficient of Variation 15.6 % (11.5-14.5); RDW Standard Deviation 52.3 fL (36.4-46.3); Red Blood Count 2.79 M/uL (4.7-6.1); White Blood Count 10.03 K/uL (4.8-10.8)
[2019-07-21] MEDS: RASPBERRY SYRUP 5 ML UDP PO SCH ×2 (05:42→11:44)
[2019-07-21] MEDS: VANCOMYCIN HCL 125 MG/2.5ML SOLN PO SCH ×2 (05:42→11:44)
[2019-07-21] MEDS: LEVOTHYROXINE SODIUM 25 MCG TABLET PO SCH (05:42)
[2019-07-21 05:58] LABS: BUN Creatinine Ratio 29.5 (10-20); Calcium 8.8 mg/dl (8.5-10.1); Est GFR (African American) 103.3; Est GFR (Non-African American) 89.1; Potassium 3.6 mmol/L (3.5-5.1)
[2019-07-21] MEDS: INSULIN ASPART 100 UNITS/ML 3 ML PEN SC SCH ×2 (09:02→11:42)
[2019-07-21] MEDS: INSULIN GLARGINE SOLOSTAR 100 UNITS/ML 3 ML PEN SC SCH (09:03)
[2019-07-21] MEDS: METOPROLOL SUCC 25MG EXT REL TAB PO SCH (09:08)
[2019-07-21] MEDS: LACTOBACILLUS ACIDOPHILUS (FLORANEX) TAB PO SCH ×2 (09:08→11:43)
[2019-07-21] MEDS: CHOLECALCIFEROL 1,000 UNITS 25 MCG TAB PO SCH (09:09)
[2019-07-21] MEDS: BUMETANIDE 1 MG TAB PO SCH (09:09)
[2019-07-21] MEDS: GABAPENTIN 100 MG CAP PO SCH (09:09)
[2019-07-21] MEDS: ASPIRIN 81 MG ECTAB PO SCH (09:09)
[2019-07-21] MEDS: CLOPIDOGREL BISULFATE 75 MG TAB PO SCH (09:10)
[2019-07-21] MEDS: MULTIVITAMIN TAB PO SCH (09:10)
[2019-07-21] MEDS: FERROUS SULFATE 325 MG TAB PO SCH (09:10)
[2019-07-21] MEDS: LOSARTAN POTASSIUM 25 MG TAB PO SCH (09:11)
[2019-07-21] MEDS: PANTOprazole 40 MG TAB PO SCH (09:11)
[2019-07-21] MEDS: FINASTERIDE 5 MG TAB PO SCH (09:11)
[2019-07-21] MEDS: DOCUSATE SODIUM 100 MG CAP PO SCH (09:12)
[2019-07-21] MEDS: ASCORBIC ACID 500 MG TAB PO SCH (09:12)
--- NOTE | 2019-07-21 09:36 | Pharmacy Report ---
Glycemic Control Progress Note - Date of Service July 21, 2019 - Scope Glycemic Pharmacist consulted for glycemic control to write orders per [facility] inpatient glycemic control protocol. - Objective Accuchecks BSG(last 24 hours):: 07/20/19 07/20/19 07/20/19 12:01 17:16 20:32 Glucose POC Glucose 131 H 129 H 174 H 07/21/19 07/21/19 05:11 08:19 Glucose 116 H POC Glucose 207 H HbA1c:: Hemoglobin A1c 6.0 % (4.5-5.6) H 07/15/19 13:25 - Recent Pertinent Medications The patient is currently receiving: * Basal insulin: Lantus 13 units every 24 hours * Correctional Insulin: Novolog Correction per scale ACHS Goal Range: Low 110 mg/dL - High 140 mg/dL Correction Factor: 30 mg/dL/unit * Prandial insulin: Per carb ratio of 1 unit per 8 grams CHO consumed - Outpatient Anti-Diabetic Meds Lantus 10 units daily - Assessment & Plan ASSESSMENT: * See progress note from 07/17/2019 for more background info, in short: * Pt receiving SQ basal bolus insulin regimen for hyperglycemia secondary to baseline DM (outpatient regimen on hold),stress/infection (on Zerbaxa and PO vancomycin). Plan is for discharge today. * Patient is currently receiving an average of 36 units of insulin per day * 13 units of basal insulin * 23 units of prandial/correctional insulin * BSGs ranging 108 - 174 mg/dl over the past 24hrs * Changes needed to insulin regimen: * AM Fasting BSG = 116 mg/dl (per PRP and 207 on POC) This is in goal range for patient based on inpatient targets and co-morbidities. Therefore Basal insulin will be continued. Uncertain if 207 mg/dL is accurate. * Post-prandial BSGs are within range except for bedtime reading. Tighten CR slightly. * Total daily dose = 35-40 units. PLAN FOR INPATIENT GLYCEMIC CONTROL: * Continuing Lantus 13 units SQ daily * Continuing correction factor of 30 mg/dl/unit * TIGHTENING carb ratio to 1 unit per 7 grams CHO consumed * Continuing goal range of Low 110 mg/dL - High 140 mg/dL RECOMMENDATIONS FOR DISCHARGE: * Patient's HbA1C is very well controlled. Continue home regimen. If patient suffers from hypoglycemia recommend reducing dose. Thank you.
--- NOTE | 2019-07-21 16:07 | Discharge Summary ---
Date of Service July 21, 2019 Admission HPI Per Admitting Provider Leandro Cooper is a 68 year old male who presents to the ER from his PCP office due to concens his non heeling chronic pressure ulcer has been increasingly black over the past week and last two days it has been draining pus. No cellulitis changes coming from the ulcer and patient has been afebrile. He followed up with his PCP who contacted wound care and recommended he was sent to the ER for evaluation. As a quick recap of this unfortunate patient's recent history starting with lumbar spinal decompression and instrumentation 1 year ago for severe spinal stenosis with neurogenic claudication. This was complicated by NSTEMI in the immediate post operative period (Rx medically). He subsequently developed Serratia bacteremia and was taken back to the OR in August 2018 for epidural abscess. He has had two further spinal surgeries in September and October due to ongoing infection with intesive care admission in October growing c. albicans and Enterobacter. This all resulted in a neurogenic bladder and he is effectively paraplegic at this time. At [facility] around December he developed a pressure ulcer on the heel of his left ankle, debridement by Dr Guillermo in January. He subsequently developed osteomyelitis for which a below knee amputation was recommend by Dr Guillermo. However, he wishes to preserve his foot if at all possible and saught a second opinion at [facility] and underwent debridement on 05/14 and then partial left calcanectomy on 05/19. PICC line @ [facility] and he was treated with IV daptomycin and meropenem with last day of antibiotics on 30 June. Sutures were removed from wound on July 06. In addition he has had complications of c. difficile colitis. Admission Exam Per Admitting Provider Per H&P by Dr. Nguyen. Principal Diagnosis Chronic osteomyelitis of the left foot/ankle Discharge Exam General: Resting comfortably HEENT: NC/AT; PERRLA with EOMI; Adell conjunctiva, MMM. No erythema of posterior pharynx Neck: Supple and nontender Cardiac: RRR Lungs: CTA bilaterally Abdomen: Bowel normoactive X 4; Nontender to palpation Extremities: Warm. No edema present Neuro: No focal weakness Skin: Two ulcers on left leg/ankle -- one at calcaneus and one on top of hightower. No surrounding erythema indicating cellulitis. Discharge Data Allergies Allergy/AdvReac Type Severity Reaction Status Date / Time lorazepam AdvReac Confusion Verified 07/28/19 10:57 sacubitril [From Entresto] AdvReac problems Verified 07/28/19 10:57 with bp valsartan [From Entresto] AdvReac problems Verified 07/28/19 10:57 with bp Consultations 07/15/19 14:39 ED Decision to Admit Stat 07/15/19 15:30 Consult Orthopedic Surgery Routine 07/15/19 19:14 Consult Cardiology Routine Consult Case Management - Discharge Planning Routine Consult Infectious Diseases Routine Ordered Studies 07/16/19 10:30 US arterial duplex LE LT Routine Hospital Course (1) Chronic osteomyelitis of left foot: Recurrent osteomyelitis noted on XR; stage 4 pressure ulcer to left heel. Orthopedics, vascular and ID all following. Recommending BKA. Cultures +multi drug resistant Pseudomonas. Currently on Zerbaxa, will need 6 week course or until amputation per ID. D/c'ed Vanco -- MRSA negative. Discussed case with PA from [facility], Dr. Thomson also agrees with amputation in the near future. US guided PIV inserted for home IV abx. Home nursing arranged. (2) C. difficile colitis: C. diff positive -- on Vancomycin QID. H/o C. diff in April 2019; will need tapering course during this recurrence. Recommended to take QID dosing until amputation due to ongoing abx. (3) Type 2 diabetes mellitus: Hgb A1C was 6.0% this admission. SSI and Lantus coverage - increased Lantus at home. Pharmacy consulted for glycemic management. (4) Chronic systolic heart failure: Most recent echo in Apr 2019 showed EF 30-35%, regional wall motion abnormalities, akinetic inferior wall and global hypokinesis. Monitor daily weights and I/Os -- currently euvolemic. Continued Losartan, Metoprolol as prescribed. Continued Bumex 1 mg PO daily. Follows with Kelly Lopez PA-C from HF clinic - f/u in 1-2 weeks to evaluate volume status prior to surgery. (5) Ischemic cardiomyopathy: Continued home medications. (6) Spinal stenosis: S/p multiple back surgeries and is effectively paraplegic at this time. Chronic luna, exchange as scheduled. (7) Coronary artery disease: S/p CABG x 3 in 2002 --DELATORRE to LAD, FERNANDO to marginal, radial graft to OM. S/p defibrillator as well. Most recent cardiac cath Jul 2018 - subtotal occluded ramus intermediate branch, total occlusion of the mid LAD, 80% proximal OM2 disease, severe mid RCA disease 95% and 90%. Continued ASA, Metoprolol, Plavix, Losartan, statin as prescribed. (8) PAD (peripheral artery disease): Continued ASA, Plavix, statin as prescribed. (9) HTN (hypertension): Continued Bumex, Metoprolol, Losartan as prescribed. (10) High cholesterol: Continued ASA and statin as prescribed. (11) Anemia in chronic illness: Likely related to multiple medical co-morbidities. (12) BPH (benign prostatic hyperplasia): Continued Flomax and Proscar. Chronic luna. (13) Hypothyroidism: TSH was 4.2 in 04/2019. Continued home levothyroxine as prescribed. (14) Obstructive sleep apnea: Recommend CPAP qhs. (15) DVT prophylaxis: Lovenox 40mg SQ daily. Discharged to home on 07/21/19. Total Time Total Time Spent Total Time Spent (In Minutes): >30 minutes Total Time Includes: Examination of the Patient, Discharge Planning, Medication Reconciliation, Communication With Other Providers and Other Discharge Plan Discharge Items Patient Disposition: Home - Home Health Services Reason For Visit: OSTEMYELITIS Discharge Diagnosis: Chronic osteomyelitis of the left ankle Condition on Discharge: Fair Goals: You have been hospitalized for an acute medical problem. During your stay at [facility], we have made an effort to correct the problem that brought you to the hospital while keeping you as comfortable as possible. Medications were used to bring your condition under control and your discharge instructions will include directions for any medications you should take after leaving the hospital. Please make sure you see your Primary Care Provider as part of your follow up plan. Activity: As commented below Exercise/Sports: Wait until after follow-up appointment Non-emergency contact: Primary Care Provider and Surgeon Call non-emergency contact if: you have any medication questions, your symptoms worsen, you have a fever, your wound has increased redness, your wound has increased drainage and your wound pain has increased Follow-up/Referrals: Christiano Alvarez MD [Primary Care Provider] - 07/28/19 10:45 am ([facility] Chuckie Guillermo DO [Surgeon] - 08/04/19 10:40 am (Please follow up with Dr. Guillermo in 1-2 weeks to discuss amputation. Cancelled appt today due to hospitalization and meeting with home health at home for IV Rescheduled for 08/04/19 @ 10:40 a.m.) Serenity Lopez PA-C [Physician Records Technician] - 07/27/19 9:00 am (Please schedule follow up with CHF clinic in 1-2 weeks. ) Diet: Carb Consistent or DM2 and Heart Healthy Ambulatory Orders: Complete Blood Count no Diff (Q7D) Timeframe: 14 Day Location: Determined by Patient Ordered By: Daisha Delgrosso Complete Blood Count no Diff (Q7D) Timeframe: 21 Days Location: Determined by Patient Ordered By: Daisha Delgrosso Complete Blood Count no Diff (Q7D) Timeframe: 28 Days Location: Determined by Patient Ordered By: Daisha Delgrosso Complete Blood Count no Diff (Q7D) Timeframe: 4 Weeks Location: Determined by Patient Ordered By: Daisha Delgrosso Comprehensive Metabolic Panel (Q7D) Timeframe: 7 Days Location: Determined by Patient Ordered By: Daisha Delgrosso Comprehensive Metabolic Panel (Q7D) Timeframe: 14 Day Location: Determined by Patient Ordered By: Daisha Delgrosso Comprehensive Metabolic Panel (Q7D) Timeframe: 21 Days Location: Determined by Patient Ordered By: Daisha Delgrosso Comprehensive Metabolic Panel (Q7D) Timeframe: 28 Days Location: Determined by Patient Ordered By: Daisha Delgrosso Erythrocyte Sedimentation Rate (Q7D) Timeframe: 20190728 Location: Determined by Patient Ordered By: Daisha Delgrosso Erythrocyte Sedimentation Rate (Q7D) Timeframe: 20190804 Location: Determined by Patient Ordered By: Daisha Delgrosso Erythrocyte Sedimentation Rate (Q7D) Timeframe: 20190811 Location: Determined by Patient Ordered By: Daisha Delgrosso Erythrocyte Sedimentation Rate (Q7D) Timeframe: 20190818 Location: Determined by Patient Ordered By: Daisha Delgrosso Addtl Attending Provider Instructions: 1. Chronic Osteomyelitis of the left foot * Please continue Zerbaxa every 8 hours via IV until your procedure. * You will need to follow up for weekly labs during course of antibiotics -- script was provided at discharge. * Please follow up with Dr. Guillermo - this appointment will be scheduled as soon as possible. * Please continue wound care for open wounds on left ankle. 2. Clostridium difficile colitis * Please take Vancomycin four times daily for treatment of infection. You will need to continue this antibiotic four times daily unless instructed otherwise by Dr. Guzman or Dr. Dozier. 3. Chronic Heart Failure * Please continue to monitor daily weights. * Please continue Bumex 1 mg daily as prescribed. * An appointment will be scheduled with Kelly Lopez PA-C from heart failure clinic to evaluate volume status prior to amputation. Pending Studies at Discharge: No Stand-Alone Forms: My [facility] Medications and DC Order Prescriptions: New vancomycin [Vancocin] 125 mg capsule 125 mg PO Q6H 21 Days Qty: 84 RF: 0 Zerbaxa 1.5 gram recon soln 1.5 gm IV Q8H Qty: 10 RF: 0 Continued tamsulosin [Flomax] 0.4 mg capsule 0.4 mg PO HS Qty: 90 RF: 1 quetiapine 25 mg tablet 25 mg PO HS RF: 0 bumetanide 1 mg tablet 1 mg PO QAM Qty: 30 RF: 5 finasteride [Proscar] 5 mg tablet 5 mg PO QAM Qty: 90 RF: 3 oxycodone 5 mg tablet 5 mg PO TID Qty: 90 RF: 0 gabapentin [Neurontin] 100 mg capsule 100 mg PO TID Qty: 90 RF: 6 ferrous sulfate 325 mg (65 mg iron) tablet,delayed release (DR/EC) 325 mg PO BIDM RF: 0 melatonin 5 mg Tablet 5 mg PO HS RF: 0 Therems-M 27-0.4 mg Tablet 1 tab PO QAM RF: 0 ascorbic acid (vitamin C) [Vitamin C] 500 mg Tablet 500 mg PO QAM RF: 0 levothyroxine [Synthroid] 25 mcg tablet 25 mcg PO QAM RF: 0 pantoprazole [Protonix] 40 mg tablet,delayed release (DR/EC) 40 mg PO BID RF: 0 aspirin [Aspir-81] 81 mg Tablet,Delayed Release (Dr/Ec) 81 mg PO QAM RF: 0 cholecalciferol (vitamin D3) [Vitamin D3] 1,000 unit Tablet 2,000 unit PO QAM RF: 0 clopidogrel [Plavix] 75 mg tablet 75 mg PO QAM RF: 0 losartan 25 mg tablet 25 mg PO QAM RF: 0 Discontinued Lantus Solostar U-100 Insulin 100 unit/mL (3 mL) insulin pen 10 units SQ DAILY Qty: 15 RF: 2 No Action Lactobacillus acidoph-L.bulgar [Floranex] 1 million cell tablet 4 tab PO TID RF: 0 metoprolol succinate 25 mg tablet extended release 24 hr 25 mg PO QAM RF: 0 Lantus Solostar U-100 Insulin 100 unit/mL (3 mL) insulin pen 13 units SQ QAM RF: 0 Discharge Orders: Discharge Order (Routine); Ordered 07/21/19 Ordered By: Candi Morocho/Other Patient Handouts: Hyperglycemia, Hypoglycemia, Blood Sugar Check, A1C Admission Data Admit Date/Time: 07/15/19 17:38 Attending Provider: Candi Dexter Admit Provider: Ricky Nguyen Primary Care Provider: Christiano Alvarez Other Providers: Serenity Guzman ; Christiano Larose ; Quincy Heck Other Interventions: Discharge Summary Assessment (RN) Last Done: 07/21/19 10:44 DC Date/Time DO NOT enter until pt leaves facility: 07/21/19 12:53 Supervising Physician Co-Signing Physician Notes PA Supervision Note: I personally saw and examined the patient. I verified all husain points and agree with SIMEON Shaver with the following exceptions and/or additions: Patient feeling fine. Has no complaints. He is stable for discharge today on home IV antibiotics until his amputation can be arranged in the near future which she is now agreeable to. Vitals reviewed Gen: Alert, awake, oriented to person and place, NAD HEENT: Anicteric sclerae, EOMI CV: RRR no mgr nl S1S2 Pulm: CTAB no wcr Abd: +BS soft NT ND no masses or hernias Ext: Left heel with deep ulceration, some scant purulent drainage, no surrounding erythema Skin: Wound as above on heel Neuro: Weakness in the bilateral lower extremities 68-year-old male with multiple chronic comorbid conditions, here with recurrent infection of the left heel stage IV pressure ulcer with known osteomyelitis. No evidence of sepsis here -Continue IV antibiotics upon discharge until the time of amputation-this is to be arranged as an outpatient in the near future Stable for discharge to home Coding Level of Care Code D/C Day Management >30 mins Diagnoses Chronic osteomyelitis of left foot M86.672 C. 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 transplanted heart: [place] heart PAD (peripheral artery disease) I73.9 HTN (hypertension) I10 Hypertension type: essential hypertension High cholesterol E78.00 Anemia in chronic illness D63.8 BPH (benign prostatic hyperplasia) N40.0 Lower urinary tract symptom presence: unspecified whether lower urinary tract symptoms present Hypothyroidism E03.9 Obstructive sleep apnea G47.33 DVT prophylaxis Z29.9
== END 2019-07-21 12:53 | disposition home health service (06) | DRG 637 ==
LOC: ED 11:41 → 2N 17:38 → SUATTDRO 17:38 → 2N 18:39 → 3N 07-16 19:58

== ENCOUNTER 2019-08-14 07:25 | Inpatient (IN) ==
--- NOTE | 2019-08-05 13:01 | Anesthesiology Consultation ---
Date of Service August 05, 2019 Assessment & Plan Chart Review Chart Review: Acceptable Risk for Surgery and Patient NOT seen in Pre Admission Testing Pt initially scheduled for procedure on 07/31/19 but was rescheduled due to misunderstanding with Plavix instructions Pt has history of difficult intubation. L1-L5 Lumbar fusion I&D 10/09/18= MAC #3, ETT 7.0 - DL x 1 - poor view, bougie used without difficulty Debridement of skin subcutaneous tissue muscle and bone (left)exploration excisional debridement of skin subcutaneous tissue and bone of calcaneus pressure ulcer = 05/14/19- at [facility]- under MAC with local anesthesia. (anesthesia records included- no significant issues noted) Seen by cardio 07/24/19= "Based on the fact that he tolerated surgery within the past two months, he is compensated from a heart failure standpoint, and he has a stable EKG tracing 06/2019 -- Patient is at an intermediate but acceptable cardiac risk for his upcoming surgery. We recommended that patient take his usual doses of Metoprolol and Aspirin on the day of surgery with sips of water. Also recommend cautious use of IV Fluids, close monitoring of I&O's, and daily body weights following surgery" Seen by PCP 07/28/19= "He is a moderate risk for surgery given his chronic debilitation and multiple co-morbidities, but he is as medically stable as possible at this current time and I do agree that he should proceed with surgery. If he refused surgery, likely he will become septic and this chronic infection will be his demise." Pt has history of cardiac arrest s/p cervical surgery in 2011- subsequently had ICD placed. Pt did have NSTEMI in 07/2018 after lumbar surgery. History Surgery Operation Date: 08/14/19 13:55 Proposed Procedures p Amputation Leg - Chuckie Guillermo, Height/Weight Height: 5 ft 8 in Weight: 83.915 kg Allergies Allergy/AdvReac Type Severity Reaction Status Date / Time lorazepam AdvReac Confusion Verified 08/05/19 11:36 sacubitril [From Entresto] AdvReac problems Verified 08/05/19 11:36 with bp valsartan [From Entresto] AdvReac problems Verified 08/05/19 11:36 with bp Medications Home Medications Medication Instructions Recorded Confirmed Last Taken aspirin [Aspir-81] 81 mg PO QAM 06/24/19 02/26/20 02/21/20 06:00 cholecalciferol (vitamin D3) 2,000 unit PO QAM 12/01/18 08/05/19 07/30/19 08:00 [Vitamin D3] ascorbic acid (vitamin C) [Vitamin 500 mg PO QAM 03/23/19 08/05/19 07/30/19 08:00 C] melatonin 5 mg PO HS 03/23/19 08/05/19 07/30/19 20:00 tamsulosin 0.4 mg capsule 0.4 mg PO HS #90 cap 03/30/19 08/05/19 07/30/19 20:00 levothyroxine [Synthroid] 25 mcg PO QAM 04/10/19 08/05/19 07/30/19 08:00 pantoprazole [Protonix] 40 mg PO BID 04/10/19 08/05/19 07/30/19 20:00 clopidogrel [Plavix] 75 mg PO QAM 04/12/19 08/05/19 07/30/19 08:00 quetiapine 25 mg tablet 25 mg PO HS tab 04/22/19 08/05/19 07/30/19 20:00 ferrous sulfate 325 mg (65 mg 325 mg PO BIDM tab 04/27/19 08/05/19 07/30/19 08:00 iron) tablet,delayed release losartan 25 mg PO QAM 05/06/19 08/05/19 07/30/19 08:00 gabapentin 100 mg capsule 100 mg PO TID #90 cap 06/04/19 08/05/19 07/30/19 20:00 bumetanide 1 mg tablet 1 mg PO QAM #30 tab 06/24/19 08/05/19 07/30/19 08:00 finasteride 5 mg tablet 5 mg PO QAM #90 tab 06/25/19 08/05/19 07/30/19 08:00 oxycodone 5 mg tablet 5 mg PO TID #90 tab 07/09/19 08/05/19 07/29/19 ceftolozane-tazobactam [Zerbaxa] 1.5 gm IV Q8H #10 ea 07/21/19 08/05/19 07/31/19 06:00 vancomycin [Vancocin] 125 mg PO Q6H 21 Days #84 cap 07/21/19 08/05/19 07/31/19 06:00 Lantus Solostar U-100 Insulin 13 units SQ HS 07/24/19 08/05/19 07/29/19 08:00 metoprolol succinate 25 mg PO QAM 07/24/19 08/05/19 07/31/19 06:00 Lactobacillus acidophilus 10,000 mmu cells PO DAILY 08/05/19 08/05/19 Unknown [Probiotic Acidophilus] multivitamin 1 tab PO DAILY 08/05/19 08/05/19 Unknown Past Medical History Medical History Abscess in epidural space of lumbar spine RESOLVED PER PATIENT WITH SURGERIES BUT RESULTED IN NEUROGENIC BLADDER. Anemia Anxiety CAD (coronary artery disease) CABG x3 (approx 2000); cardiac arrest 2011 s/p cervical surgery; NSTEMI 07/2018 post op lumbar surgery Carotid artery stenosis CHF (congestive heart failure) Chronic kidney disease, stage III (moderate) Chronic osteomyelitis of ankle and foot Chronic sinusitis Clostridium difficile infection HAS CURRENTLY> currently taking Vancomyocin until 08/11/2019. 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 Admitted [facility] 10/18/11 for onset of incapacitating cervical myelopathy. 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 Pt had c-spine surgery, mcclellan bsequent prolonged hospital admission, complicated post-op course- including cardiac arrest Depression Diabetic peripheral neuropathy Diabetic retinopathy Disc degeneration, lumbar Diverticulosis Dysphagia High cholesterol History of femoral angiogram adequate blood flow to foot History of non-ST elevation myocardial infarction (NSTEMI) 2000; 2018 HTN (hypertension) Hypothyroidism ICD (implantable cardioverter-defibrillator) in place [facility] [employer] > LAST CHECKED POSTOP AT [facility] AFTER 05/14/19 SX- FUNCTIONING APPROPRIATELY- NO REPORT AVAILABLE- MOST RECENT REPORT AVAILABLE FROM 04/2019 Ischemic cardiomyopathy EF on 04/2019 ECHO 30-35% Obstructive sleep apnea BiPap -- refuses to use. 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 Hollins- had post op respiratory failure requiring trach and subsequent cardiac arres requiring one shock V fib- AICD implanted Uncontrolled type 2 diabetes mellitus with retinopathy, with long-term current use of insulin Past Family History Family History Mother , age 68 of COPD and respiratory issues COPD (chronic obstructive pulmonary disease) Father , in his 40s of an [place] Myocardial infarction Other Diabetes Hypertension No pertinent family history Past Surgical History Surgical History H/O cervical spine surgery ACDI C3-4, C7 corpectomy, removal of C7 intramedullary mass.> ROM IS OK PER PATIENT History of cardiac cath 2011 AT [facility] - NO STENTS History of cataract extraction with lens replacement History of colonoscopy History of esophagogastroduodenoscopy (EGD) History of incision and drainage Lumbar spine on 08/11/18; complicated by difficult intubation with only #6.5 ETT able to be placed and patient kept intubated post op History of lumbar spinal fusion History of lumbar surgery 09/10/18 Glidescope 3 okay visualization but difficulty passing ETT, unable to pass 8.0, able to pass 7.0 with some difficulty History of tracheostomy CLOSED 8 YRS AGO Hx of foot surgery [facility] [place] MAY 2019 TO TRY TO CLEAR CURRENT INFECTION TO FOOT Hx of tonsillectomy Hx of transurethral resection of prostate S/P PICC central line placement REPLACED AROUND 07/21/19 [facility] S/P triple vessel bypass [facility]- (DELATORRE to LAD, FERNANDO to Acute Marginal, Radial Graft to OM) Social History Smoking Status: Former smoker tobacco type: cigarettes and smokeless tobacco Do You Dip or Chew Tobacco: Yes (quit 2017) Hx Alcohol Use: No Alcohol type: beer alcohol intake frequency: holidays/special occasions only Hx Substance Use: No substance use type: does not use Testing Laboratory Results Laboratory Tests 07/15/19 07/15/19 08/04/19 13:25 13:25 13:25 WBC Hgb Hct Plt Count PT 10.3 INR 1.0 APTT 24.8 Sodium 139 Potassium 4.2 Chloride 106 Carbon Dioxide 28 BUN 25 H Creatinine 0.97 Glucose 148 H Hemoglobin A1c 6.0 H 08/04/19 13:25 WBC 6.82 Hgb 8.6 L Hct 27.3 L Plt Count 185 PT INR APTT Sodium Potassium Chloride Carbon Dioxide BUN Creatinine Glucose Hemoglobin A1c Anemia chronic and stable Electrocardiogram Date: 06/19/19 SR with 1st degree AVG at 64bpm. RBBB, plus RVH. Compared to 05/06/19- questionable change in QRS axis Chest X-Ray Date: 07/22/19 Findings: + NAD Mild cardiomegaly is unchanged. Echocardiogram Date: 05/08/19 EF: 30 to 35% Moderate basal hypokinesis involving the inferior lateral and anterior segments. Pacemaker lead in right ventricle. Right ventricular systolic function is borderline reduced. Calcified mitral apparatus. RVSP is elevated at 40 to 50 mmHg. No pericardial effusion. Compared to echo from 11/2017 the overall LV systolic function and wall motion is slightly improved. Stress Test Date: 07/02/18 Type: DSE Valvular Disease: no significant valvular disease No ischemic changes suggested on DSE - MPHR= 94%. Negative dobutamine EKG for ischemia. No arrhythmia. ECHO shows mildly dilated LV with mildly reduced systolic function- EF 45-50%. Base to mid septum appears akinetic at rest. Cannot exclude other wall motion abnormalities. No new wall motion abnormalities with dobutamine. Mild cLVH. RV not well visualized but RV systolic function seems mildly reduced. Cardiac Catheterization Date: 07/27/18 LM-30% distal disease. LADdiffuse moderate to severe proximal/mid disease. 100% chronic mid occlusion after takeoff of small first diagonal. Circumflexmoderate to severe diffuse disease extending to proximal OM 2 with 80% proximal stenosis. Ramusdominant vessel diffuse 30% proximal to mid disease, sequential 95, 90% stenosis in mid segment, diffuse 30% distal disease, luminal irregularities in right PDA/PLB. DELATORRE to LADwidely patent, distal LAD after anastomosis with mild diffuse disease. Retro-fills into mid LAD with severe focal stenosis. DELATORRE to acute marginalwidely patent, acute marginal is a very small vessel with diffuse disease. Does not retrofilling to RCA. Radial to OMoccluded. Recommendationsin setting of recent spine surgery, acute blood loss anemia, PAULA recommend medical management of culprit from a small vessel disease. Antiplatelet therapy when safe to do from surgical standpoint. Patient presently chest pain-free, hemodynamically and electrically stable with no evidence of heart failure. Other Testing Pacemaker Report 04/17/2019= [employer] Secura VR [id number]. Implanted 11/13/11. Mode VVI. No shocks noted. STUCCO APPLICATOR 55.8%. Observations "Possible fluid accumulation: exceeded OptiVol Threshold, 11/23/18- ongoing. Patient activity is less than 1hr/day for 1 weeks. Neck CTA 09/03/18= No significant stenosis, occlusion, or aneurysm within the [place]. No significant stenosis, occlusion, or dissection identified within the common carotid, left internal carotid or vertebral arteries. Less than 50% focal narrowing at the takeoff of the right internal carotid artery. Anterior cervical discectomy and fusion at C6-T1. The left T1 screw is dislodged and is seen anterior to the T2 vertebral body. This results in mass effect along the adjacent esophagus.
--- NOTE | 2019-08-12 14:19 | History & Physical Report ---
Date of Service August 12, 2019 Assessment & Plan (1) Acute osteomyelitis of left calcaneus: Schedule a Left Below the Knee Amputation for 08.14.2019. All potential risks, benefits, complications, alternatives, and rehab have been discussed with the patient and he wishes to proceed. Plan for possible SNF vs. rehab upon d/c. (2) Chronic ulcer of left heel: Non-pressure ulcer stage: unspecified non-pressure ulcer stage Qualified Code(s): L97.429 - Non-pressure chronic ulcer of left heel and midfoot with unspecified severity History of Present Illness Chief Complaint: chronic left heel ulceration/infection Primary Care Provider: Edd Alvarez MD This is a patient with a chronic left heel ulceration and chronic left calcaneal osteomyelitis. He had undergone a previous I & D and implantation antibiotic beads. He continues to have infection in the calcaneus which has affected many other of the patient's medical problems. He is now being set up for left BKA. Allergies Allergy/AdvReac Type Severity Reaction Status Date / Time lorazepam AdvReac Confusion Verified 08/05/19 11:36 sacubitril [From Entresto] AdvReac problems Verified 08/05/19 11:36 with bp valsartan [From Entresto] AdvReac problems Verified 08/05/19 11:36 with bp Home Medications Home Medications Medication Instructions Recorded Confirmed Type aspirin [Aspir-81] 81 mg PO QAM 12/01/18 08/05/19 History cholecalciferol (vitamin D3) 2,000 unit PO QAM 12/01/18 08/05/19 History [Vitamin D3] ascorbic acid (vitamin C) [Vitamin 500 mg PO QAM 03/23/19 08/05/19 History C] melatonin 5 mg PO HS 03/23/19 08/05/19 History tamsulosin 0.4 mg capsule 0.4 mg PO HS #90 cap 03/30/19 08/05/19 Rx levothyroxine [Synthroid] 25 mcg PO QAM 04/10/19 08/05/19 History pantoprazole [Protonix] 40 mg PO BID 04/10/19 08/05/19 History clopidogrel [Plavix] 75 mg PO QAM 04/12/19 08/05/19 History quetiapine 25 mg tablet 25 mg PO HS tab 04/22/19 08/05/19 History ferrous sulfate 325 mg (65 mg 325 mg PO BIDM tab 04/27/19 08/05/19 History iron) tablet,delayed release losartan 25 mg PO QAM 05/06/19 08/05/19 History gabapentin 100 mg capsule 100 mg PO TID #90 cap 06/04/19 08/05/19 Rx bumetanide 1 mg tablet 1 mg PO QAM #30 tab 06/24/19 08/05/19 Rx finasteride 5 mg tablet 5 mg PO QAM #90 tab 06/25/19 08/05/19 Rx oxycodone 5 mg tablet 5 mg PO TID #90 tab 07/09/19 08/05/19 Rx ceftolozane-tazobactam [Zerbaxa] 1.5 gm IV Q8H #10 ea 07/21/19 08/05/19 Rx Lantus Solostar U-100 Insulin 13 units SQ HS 07/24/19 08/05/19 History metoprolol succinate 25 mg PO QAM 07/24/19 08/05/19 History Lactobacillus acidophilus 10,000 mmu cells PO DAILY 08/05/19 08/05/19 History [Probiotic Acidophilus] multivitamin 1 tab PO DAILY 08/05/19 08/05/19 History Past Med/Surg History Medical History Abscess in epidural space of lumbar spine RESOLVED PER PATIENT WITH SURGERIES BUT RESULTED IN NEUROGENIC BLADDER. Anemia Anxiety CAD (coronary artery disease) CABG x3 (approx 2000); cardiac arrest 2011 s/p cervical surgery; NSTEMI 07/2018 post op lumbar surgery Carotid artery stenosis CHF (congestive heart failure) Chronic kidney disease, stage III (moderate) Chronic osteomyelitis of ankle and foot Chronic sinusitis Clostridium difficile infection HAS CURRENTLY> currently taking Vancomyocin until 08/11/2019. 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 Admitted [facility] 10/18/11 for onset of incapacitating cervical myelopathy. 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 Pt had c-spine surgery, subsequent prolonged hospital admission, complicated post-op course- including cardiac arrest Depression Diabetic peripheral neuropathy Diabetic retinopathy Disc degeneration, lumbar Diverticulosis Dysphagia High cholesterol History of femoral angiogram adequate blood flow to foot History of non-ST elevation myocardial infarction (NSTEMI) 2000; 2018 HTN (hypertension) Hypothyroidism ICD (implantable cardioverter-defibrillator) in place [employer] > LAST CHECKED POSTOP AT [facility] AFTER 05/14/19 SX- FUNCTIONING APPROPRIATELY- NO REPORT AVAILABLE- MOST RECENT REPORT AVAILABLE FROM 04/2019 Ischemic cardiomyopathy EF on 04/2019 ECHO 30-35% Obstructive sleep apnea BiPap -- refuses to use. 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 Hollins- had post op respiratory failure requiring trach and subsequent cardiac arres requiring one shock V fib- AICD implanted Uncontrolled type 2 diabetes mellitus with retinopathy, with long-term current use of insulin Surgical History H/O cervical spine surgery ACDI C3-4, C7 corpectomy, removal of C7 intramedullary mass.> ROM IS OK PER PATIENT History of cardiac cath 2011 AT [facility] - NO STENTS History of cataract extraction with lens replacement History of colonoscopy History of esophagogastroduodenoscopy (EGD) History of incision and drainage Lumbar spine on 08/11/18; complicated by difficult intubation with only #6.5 ETT able to be placed and patient kept intubated post op History of lumbar spinal fusion History of lumbar surgery 09/10/18 Glidescope 3 okay visualization but difficulty passing ETT, unable to pass 8.0, able to pass 7.0 with some difficulty History of tracheostomy CLOSED 8 YRS AGO Hx of foot surgery May 2019 TO TRY TO CLEAR CURRENT INFECTION TO FOOT Hx of tonsillectomy Hx of transurethral resection of prostate S/P PICC central line placement REPLACED AROUND 07/21/19 [facility] S/P triple vessel bypass [facility] 2002- (DELATORRE to LAD, FERNANDO to Acute Marginal, Radial Graft to OM) Family History Mother , age 68 of COPD and respiratory issues COPD (chronic obstructive pulmonary disease) Father , in his 40s of an [place] Myocardial infarction Other Diabetes Hypertension No pertinent family history Social History Preferred Language: [place] Communication Ability: Impaired Visual Impairment: No Limitations Hearing Ability: Normal Oracle Consultant Required: No Beliefs That Will Affect Care: None marital status: Current Living Situation: Spouse Current Living Situation Comment: , son, dil 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al status: retired and disabled 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: 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 [employer] Feels Safe at Home: Yes Smoking Status: Former smoker Tobacco Type: cigarettes and smokeless tobacco ; Second Hand Exposure: Yes (hx) ; Hx Alcohol Use: No Hx Substance Use: No Physical Exam Constitutional: well developed and well nourished; no acute distress ENMT: external ear and nose normal, oropharynx normal Neck: trachea midline, no thyromegaly Respiratory: normal respiratory effort, lungs clear to auscultation Cardiovascular: Rate/Rhythm: regular rate and regular rhythm Gastrointestinal (Abdomen): normal bowel sounds, soft, nontender, no hepatosplenomegaly Musculoskeletal: Ankle: + ankle abnormal to inspection (Large left heel ulceration) and + skin erythema (mild left heel); no ecchymosis Skin: + ulcer (left heel) Neurologic: + abnormal touch/pain/proprioception Psychiatric: Orientation: alert and oriented x 3 Lymphatic: no cervical or axillary lymphadenopathy
[~2019-08-14 07:25] MED LIST changes: -ACETAMINOPHEN 500 MG TAB PO PRN; -ACETAMINOPHEN 500 MG TAB PO SCH; +CEFAZOLIN 2000MG 2,000 MG/15 ML SYR IV SCH; -CEFAZOLIN 3000MG 65 ML IV SCH; -CeleBREX 200 MG CAP PO SCH; -GABAPENTIN 300 MG PO SCH; -HYDROmorphone INJ 2 MG/ML SYR/VIAL ONE; -MIDAZOLAM HCL 1 MG/ML 2ML VIAL ONE; -fentaNYL citrate 100 MCG/2 ML VIAL ONE
[2019-08-14] MEDS ORDERED: CEFAZOLIN 2,000 MG/15 ML IV PUSH IV ONE (09:12)
[2019-08-14] MEDS ORDERED: DEXAMETHASONE SOD INJ 4 MG/ML VIAL ONE (09:56)
[2019-08-14] MEDS ORDERED: fentaNYL citrate 100 MCG/2 ML VIAL ONE ×2 (09:56→14:48)
[2019-08-14] MEDS ORDERED: ONDANSETRON INJ 2 MG/ML 2 ML VIAL ONE (09:56)
[2019-08-14] MEDS ORDERED: PROPOFOL IV EMULSION 10 MG/ML 20 ML VIAL IV ONE (09:56)
[2019-08-14] MEDS ORDERED: LIDOCAINE HCL 2% 2 ML VIAL/AMP(20MG/ML) INFIL ONE (09:56)
--- NOTE | 2019-08-14 10:15 | History & Physical Bridge Note ---
Date of Service August 14, 2019 History & Physical Bridge Note I have examined the patient, reviewed the History & Physical and in the interval since the performance of the History & Physical I have noted the following changes of clinical significance: no changes noted
[2019-08-14] MEDS ORDERED: ATROPINE SULFATE 0.1 MG/ML 10ML SYR IV PRN (10:24)
[2019-08-14] MEDS ORDERED: PHENYLEPHRINE 100MCG/ML 5ML SYR IV PRN (10:24)
[2019-08-14] MEDS ORDERED: LABETALOL HCL IV 5 MG/ML 20ML IV PRN (10:24)
[2019-08-14] MEDS ORDERED: ePHEDrine sulfate 50 MG/ML AMP IV PRN (10:24)
[2019-08-14] MEDS ORDERED: HYDROmorphone INJ 1 MG/ML SYRINGE IV PRN (10:24)
[2019-08-14] MEDS ORDERED: ONDANSETRON INJ 2 MG/ML 2 ML VIAL IV PRN ×2 (10:24→17:24)
[2019-08-14] MEDS ORDERED: MEPERIDINE HCL 25 MG/ML CARP/VIAL IV PRN (10:24)
[2019-08-14] MEDS ORDERED: fentaNYL citrate 100 MCG/2 ML VIAL IV PRN (10:24)
[2019-08-14] MEDS ORDERED: ROPIVACAINE 0.5% 5 MG/ML 30 ML VIAL ONE ×2 (11:42→12:22)
[2019-08-14] MEDS ORDERED: EPINEPHrine INJ 1 MG/ML AMP ONE (12:22)
[2019-08-14] MEDS ORDERED: BACITRACIN INJ 50,000 UNIT VIAL ONE (14:03)
[2019-08-14] MEDS ORDERED: SODIUM CHLORIDE 0.9% 250 ML IV PRN (14:17)
[2019-08-14] MEDS ORDERED: BUPIVACAINE 0.5 % 5 MG/1 ML MPF 30ML VIAL ONE (14:45)
--- NOTE | 2019-08-14 16:12 | Post Operative Brief Note ---
Immediate Post Op Note v1 Date of Surgery August 14, 2019 Pre & Post Diagnosis Operation Date: 08/14/19 12:05 Pre-Op Diagnosis: Osteomyelitis of Calcaneus, peripheral vascular disease Post-Op Diagnosis: Osteomyelitis of Calcaneus, peripheral vascular disease I identified the patient and participated in the time-out.: Yes Procedure Operation Date: 08/14/19 12:05 Actual Procedures p Left Below the Knee Amputation(Left) - Chuckie Guillermo DO Surgeon Chuckie Guillermo DO Plant Controller Jeffery Renee PA-C Estimated Blood Loss 5 Findings Consistent with Post-Op Diagnosis Specimens Left lower leg and foot Drains Hemovac Drain (dual 10 fr drain) Anesthesia Type General Regional Complications none Disposition Accompanied Patient To Recovery: Yes Disposition: Recovery Room Overlapping Procedure I was present for: the critical portions of procedure. I was immediately available: during the entire case.
--- NOTE | 2019-08-14 17:08 | Anesthesiology Progress Note ---
Date of Service August 14, 2019 Anesthesia Post Procedure Vital Signs Vital Signs: Temp Pulse Pulse Resp BP BP Pulse Ox 08/14/19 16:50 36.7 C 83 13 127/56 L 100 08/14/19 16:40 75 14 123/66 98 08/14/19 16:30 83 21 120/60 99 08/14/19 16:20 77 20 126/58 L 100 08/14/19 16:12 36.8 C 78 21 125/71 100 08/14/19 08:34 37.0 C 71 18 103/61 94 Transfer of Care Handoff Completed per policy Notes Mental Status: alert / awake / arousable Patient Amnestic to Procedure: Yes Nausea / Vomiting: adequately controlled Pain: adequately controlled Airway Patency, RR, SpO2: stable & adequate BP & HR: stable & adequate Hydration State: stable & adequate Anesthetic Complications: no major complications apparent
[2019-08-14] MEDS ORDERED: NALOXONE HCL 0.4 MG/1 ML VIAL/CARP IV PRN (17:24)
[2019-08-14] MEDS ORDERED: MAGNESIUM HYDROXIDE SUSP 30 ML UDC PO PRN (17:24)
[2019-08-14] MEDS ORDERED: bisacodyL 10 MG SUPP PR PRN (17:24)
[2019-08-14] MEDS ORDERED: ALUMINUM/MAGNESIUM SUSP 30 ML UDC PO PRN (17:24)
[2019-08-14] MEDS ORDERED: [UNRECOGNIZED DRUG - OTHER] IV SCH (17:24)
[2019-08-14] MEDS ORDERED: METOCLOPRAMIDE HCL INJ 5 MG/ML 2 ML VIAL IV PRN (17:24)
[2019-08-14] MEDS ORDERED: PHARMACY GLYCEMIC MGMT CONSULT PRN (17:42)
[2019-08-14] MEDS ORDERED: DEXTROSE 50% 50 ML SYRINGE IV PRN (17:45)
[2019-08-14] MEDS ORDERED: GLUCOSE 40% GEL 15 GM TUBE PO PRN (17:45)
[2019-08-14] MEDS ORDERED: GLUCAGON FOR INJ 1 MG VIAL IM PRN (17:45)
[2019-08-14] MEDS ORDERED: GLUCOSE 10 TABS/TUBE PO PRN (17:45)
[2019-08-14] MEDS ORDERED: CARBOHYDRATES FOR HYPOGLYCEMIA PO PRN (17:45)
[2019-08-14] MEDS ORDERED: NovoLIN-N (NPH) PER UNIT CHARGE SQ ONE (18:00)
--- NOTE | 2019-08-14 18:08 | Hospitalist Consultation ---
Date of Consultation August 14, 2019 Assessment & Plan (1) PAD (peripheral artery disease): (2) Status post below-knee amputation of left lower extremity: - Pain management, bowel regimen and DVT prophylaxis per primary team - PT/OT consults - Continue asa, plavix for dvt ppx - Continue Zerbaxa - pt with peripheral u/s guided line in place since last hospitalization this should be removed and new site established - discussed with nursing. Consider picc vs another peripherally placed line at time of dc for further antibiotics (3) Chronic systolic heart failure: - Last echo in Apr 2019 showed EF 30-35%, regional wall motion abnormalities, akinetic inferior wall and global hypokinesis. - daily weights and I/Os -- currently euvolemic. - Continue Losartan, Metoprolol (4) Ischemic cardiomyopathy: - Cont home meds (5) HTN (hypertension): - Cont bumex, metoprolol, losartan (6) High cholesterol: - Continue statin (7) S/P CABG x 3: -In 2000, cardiac arrest, S/p CABG x 3 in 2002 --DELATORRE to LAD, FERNANDO to marginal, radial graft to OM. 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 Hollins- had post op respiratory failure requiring trach and subsequent cardiac arres requiring one shock V fib- AICD implanted -ICD in place, [employer], last checked postop at [facility] 05/14/2019 -Continue aspirin 81 mg qam, Plavix 75 mg qam, losartan 25 mg qam, metoprolol succinate 25 mg qam, Bumex 1 mg qam (8) Stage III chronic kidney disease: -Creatinine at baseline, follow with a.m. PRP (9) Type 2 diabetes mellitus: -Uses Lantus 13 qU HS along with ISS as home meds, currently glycemic pharmacy management on board (10) Hypothyroidism: -Continue levothyroxine, TSh in Apr 2019 was 4.2 (11) Anemia: -Hemoglobin of 8.6 today, appears to be slightly lower than his baseline of 9.0-10.0, follow with a.m. PRP to assess for acute blood loss anemia -Blood consent has been obtained, type and screen completed by primary team (12) Vitamin D deficiency: -Continue supplementation (13) BPH (benign prostatic hyperplasia): - Cont finasteride, Flomax - Indwelling luna since Jul 2018 - will need day team to determine if luna was changed intraoperatively or not. He will require luna change prior to discharge if this has not been done already - (14) Anxiety: (15) Depression: -Continue Seroquel 25 mg at bedtime, gabapentin 100 mg tid (16) DVT prophylaxis: -ASA 81 mg daily, Plavix CODE STATUS full code Disposition: Patient from home, discharge per primary team, likely within 1 to 2 days Thank you for involving us in the care of Mr. Cooper. Please do not hesitate to call with questions or concerns. At this time medicine service will follow along. (17) Obstructive sleep apnea: Supervising Physician Co-Signing Physician Notes I have seen and examined patient with Amy Manzo PA-C and I agree with the assessment and plan. History of Present Illness Attending Physician: Chuckie Guillermo, History of Present Illness This is a 68-year-old male with PMHx of CAD s/p cabg x 3, ischemic cardiomyopathy, chronic systolic heart failure, s/p cardiac defibrillator in place, HTN, HLD, PAD, DM type II, , CKD, anemia, vitamin D deficiency, history of UTI, BPH, metabolic encephalopathy, back pain with lumbar stenosis with neurogenic claudication, hypothyroidism, anxiety, depression, history of nonhealing left heel wound, recurrent osteomyelitis and multi-drug resistant pseudomonas who presents for elective left below the knee amputation by Dr. Guillermo done on 08/14/2019. The patient has been on Zerbaxa since his last hospitalization from 07/15-07/21 for recurrent osteomyelitis per ID recommendations, (Dr. Thomson with [facility] [place] [place]). The patient also tested c. diff positive at that time and was treated with vancomycin PO up until this admission. Currently the patient is doing well, no complaints of pain or discomfort. He expresses that he is interested in [facility] for rehab as an inpatient. We discussed that using a walker may be more easy for him to use vs crutches, and more stable. He notes luna catheter has been in place for approximately 1 year as he has been primarily bed bound due to chronic foot wound, and the back surgery he had recently. This should be changed during this admission. Last change was about 1 month ago. Allergies Allergy/AdvReac Type Severity Reaction Status Date / Time lorazepam AdvReac Confusion Verified 08/14/19 08:23 sacubitril [From Entresto] AdvReac problems Verified 08/14/19 08:23 with bp valsartan [From Entresto] AdvReac problems Verified 08/14/19 08:23 with bp Home Medications Home Medications Medication Instructions Recorded Confirmed Type aspirin [Aspir-81] 81 mg PO QAM 12/01/18 08/14/19 History cholecalciferol (vitamin D3) 2,000 unit PO QAM 12/01/18 08/05/19 History [Vitamin D3] ascorbic acid (vitamin C) [Vitamin 500 mg PO QAM 03/23/19 08/05/19 History C] melatonin 5 mg PO HS 03/23/19 08/14/19 History tamsulosin 0.4 mg capsule 0.4 mg PO HS #90 cap 03/30/19 08/14/19 Rx levothyroxine [Synthroid] 25 mcg PO QAM 04/10/19 08/14/19 History pantoprazole [Protonix] 40 mg PO BID 04/10/19 08/14/19 History clopidogrel [Plavix] 75 mg PO QAM 04/12/19 08/14/19 History quetiapine 25 mg tablet 25 mg PO HS tab 04/22/19 08/14/19 History ferrous sulfate 325 mg (65 mg 325 mg PO BIDM tab 04/27/19 08/14/19 History iron) tablet,delayed release losartan 25 mg PO QAM 05/06/19 08/14/19 History gabapentin 100 mg capsule 100 mg PO TID #90 cap 06/04/19 08/14/19 Rx bumetanide 1 mg tablet 1 mg PO QAM #30 tab 06/24/19 08/14/19 Rx finasteride 5 mg tablet 5 mg PO QAM #90 tab 06/25/19 08/14/19 Rx oxycodone 5 mg tablet 5 mg PO TID #90 tab 07/09/19 08/05/19 Rx ceftolozane-tazobactam [Zerbaxa] 1.5 gm IV Q8H #10 ea 07/21/19 08/14/19 Rx Lantus Solostar U-100 Insulin 13 units SQ HS 07/24/19 08/14/19 History metoprolol succinate 25 mg PO QAM 07/24/19 08/14/19 History Lactobacillus acidophilus 10,000 mmu cells PO DAILY 08/05/19 08/05/19 History [Probiotic Acidophilus] multivitamin 1 tab PO DAILY 08/05/19 08/05/19 History Patient History Medical History Abscess in epidural space of lumbar spine RESOLVED PER PATIENT WITH SURGERIES BUT RESULTED IN NEUROGENIC BLADDER. Anemia Anxiety CAD (coronary artery disease) CABG x3 (approx 2000); cardiac arrest 2011 s/p cervical surgery; NSTEMI 07/2018 post op lumbar surgery Carotid artery stenosis CHF (congestive heart failure) Chronic kidney disease, stage III (moderate) Chronic osteomyelitis of ankle and foot Chronic sinusitis Clostridium difficile infection HAS CURRENTLY> currently taking Vancomyocin until 08/11/2019. 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 Admitted [facility] 10/18/11 for onset of incapacitating cervical myelopathy. Spinal tap showed FOOD AND DRUG INSPECTOR Lyme disease, MRI showed severe spinal cord compression at C3-4 with myelomalacia and intramedullary mass. Pt had c-spine surgery, subsequent prolonged hospital admission, complicated post-op course- including cardiac arrest Depression Diabetic peripheral neuropathy Diabetic retinopathy Disc degeneration, lumbar Diverticulosis Dysphagia High cholesterol History of femoral angiogram adequate blood flow to foot History of non-ST elevation myocardial infarction (NSTEMI) 2000; 2018 HTN (hypertension) Hypothyroidism ICD (implantable cardioverter-defibrillator) in place [employer] > [facility] SX- FUNCTIONING APPROPRIATELY- NO REPORT AVAILABLE- MOST RECENT REPORT AVAILABLE FROM 04/2019 Ischemic cardiomyopathy EF on 04/2019 ECHO 30-35% Obstructive sleep apnea BiPap -- refuses to use. 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 Hollins- had post op respiratory failure requiring trach and subsequent cardiac arres requiring one shock V fib- AICD implanted Uncontrolled type 2 diabetes mellitus with retinopathy, with long-term current use of insulin Surgical History H/O cervical spine surgery ACDI C3-4, C7 corpectomy, removal of C7 intramedullary mass.> ROM IS OK PER PATIENT History of cardiac cath 2011 AT [facility] - NO STENTS History of cataract extraction with lens replacement History of colonoscopy History of esophagogastroduodenoscopy (EGD) History of incision and drainage Lumbar spine on 08/11/18; complicated by difficult intubation with only #6.5 ETT able to be placed and patient kept intubated post op History of lumbar spinal fusion History of lumbar surgery 09/10/18 Glidescope 3 okay visualization but difficulty passing ETT, unable to pass 8.0, able to pass 7.0 with some difficulty History of tracheostomy CLOSED 8 YRS AGO Hx of foot surgery [facility] MAY 2019 TO TRY TO CLEAR CURRENT INFECTION TO FOOT Hx of tonsillectomy Hx of transurethral resection of prostate S/P PICC central line placement REPLACED AROUND 07/21/19 [facility] S/P triple vessel bypass [facility]- (DELATORRE to LAD, FERNANDO to Acute Marginal, Radial Graft to OM) Family History Mother , age 68 of COPD and respiratory issues COPD (chronic obstructive pulmonary disease) Father , in his 40s of an [place] Myocardial infarction Other Diabetes Hypertension No pertinent family history Social History Preferred Language: Cymro Communication Ability: Impaired Visual Impairment: No Limitations Hearing Ability: Normal Aviation Consultant Required: No Beliefs That Will Affect Care: None marital status: Current Living Situation: Spouse Current Living Situation Comment: , son, dil 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al status: retired and disabled 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: 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 [employer] Other Information That Helps Us Care for You: No Feels Safe at Home: Yes Safety Concerns: Feels Safe At This Time Smoking Status: Former smoker Tobacco Type: cigarettes and smokeless tobacco ; Do You Dip or Chew Tobacco: Yes (quit 2018) ; Second Hand Exposure: Yes (hx) ; Tobacco Cessation Education Requested by Patient: No Hx Alcohol Use: No Hx Substance Use: No Results & Data ([facility]) Vital Signs (Past 12 Hours) Vital Signs Temp Pulse Pulse Resp BP BP Pulse Ox 08/14/19 17:42 36.4 C L 78 16 105/64 98 08/14/19 17:20 36.5 C 77 16 121/68 97 08/14/19 17:00 76 15 123/56 L 99 08/14/19 16:50 36.7 C 83 13 127/56 L 100 08/14/19 16:40 75 14 123/66 98 08/14/19 16:30 83 21 120/60 99 08/14/19 16:20 77 20 126/58 L 100 08/14/19 16:12 36.8 C 78 21 125/71 100 08/14/19 08:34 37.0 C 71 18 103/61 94 PG Care Time/CCT Total # of Minutes Spent Total Time Spent with Patient: Total time spent is greater than 50% in coordination of care (as documented) at patient's floor/unit and/or counseling patient: Coding Level of Care Code 58743 Inpt Consult Level 5 Diagnoses PAD (peripheral artery disease) I73.9 Status post below-knee amputation of left lower extremity Z89.512 Chronic systolic heart failure I50.22 Ischemic cardiomyopathy I25.5 HTN (hypertension) I10 Hypertension type: essential hypertension High cholesterol E78.00 S/P CABG x 3 Z95.1 Stage III chronic kidney disease N18.3 Type 2 diabetes mellitus E11.52; Z79.4 Diabetes mellitus complication detail: with peripheral angiopathy with gangrene Diabetes mellitus complication status: with circulatory complication 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 helper insulin use: with long-term use Hypothyroidism E03.9 Anemia D64.9 Anemia type: unspecified type Vitamin D deficiency E55.9 BPH (benign prostatic hyperplasia) N40.0 Lower urinary tract symptom presence: unspecified whether lower urinary tract symptoms present Anxiety F41.9 Depression F32.9 DVT prophylaxis Z29.9 Obstructive sleep apnea G47.33 (1) BPH (benign prostatic hyperplasia) Lower urinary tract symptom presence: unspecified whether lower urinary tract symptoms present Qualified Code(s): N40.0 - Benign prostatic hyperplasia without lower urinary tract symptoms (2) Type 2 diabetes mellitus Diabetes mellitus complication detail: with peripheral angiopathy with gangrene Diabetes mellitus complication status: with circulatory complication Diabetes mellitus long-term insulin use: with long-term use Qualified Code(s): E11.52 - Type 2 diabetes mellitus with diabetic peripheral angiopathy with gangrene; Z79.4 - halfway (current) use of insulin (3) Anemia Anemia type: unspecified type Qualified Code(s): D64.9 - Anemia, unspecified (4) HTN (hypertension) Hypertension type: essential hypertension Qualified Code(s): I10 - Essential (primary) hypertension
[2019-08-14] MEDS ORDERED: CEFTOLOZANE/TAZOBACTAM 1,500 MG in DEXTROSE 5% 100 ML IV ONE (18:30)
[2019-08-14] MEDS: FERROUS SULFATE 325 MG TAB PO SCH (18:47)
[2019-08-14] MEDS: INSULIN ASPART 100 UNITS/ML 3 ML PEN SC SCH ×2 (18:48→21:49)
[2019-08-14] MEDS: SODIUM CHLORIDE 0.9% 1000ML 1,000 ML IV SCH (19:56)
[2019-08-14] MEDS ORDERED: COUGH DROP (SUGAR FREE) LOZ 24 LOZ/1 BOX BUCCAL ONE (20:10)
[2019-08-14] MEDS ORDERED: NON-FORMULARY MEDICATION (Melatonin 5 MG) PO SCH (21:00)
[2019-08-14] MEDS: INSULIN GLARGINE SOLOSTAR 100 UNITS/ML 3 ML PEN SQ SCH (21:47)
[2019-08-14] MEDS: SENNA 8.6 MG TAB PO SCH (21:49)
[2019-08-14] MEDS: QUETIAPINE FUMARATE 25 MG TABLET PO SCH (21:49)
[2019-08-14] MEDS: ACETAMINOPHEN 500 MG TAB PO SCH (21:50)
[2019-08-14] MEDS: TAMSULOSIN HCL 0.4 MG CAP PO SCH (21:50)
[2019-08-14] MEDS: GABAPENTIN 100 MG CAP PO SCH (21:50)
[2019-08-14] MEDS: PANTOprazole 40 MG TAB PO SCH (21:50)
[2019-08-14] MEDS: DOCUSATE SODIUM 100 MG CAP PO SCH (21:51)
[2019-08-14] MEDS: CEFAZOLIN 2000MG 2,000 MG/15 ML SYR IV SCH (21:57)
--- NOTE | 2019-08-15 00:07 | Operative Report (OR) ---
DATE OF OPERATION: 08/14/2019 PREOPERATIVE DIAGNOSES: 1. Left calcaneal osteomyelitis. 2. Peripheral vascular disease of the lower extremities. 3. 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 POSTOPERATIVE DIAGNOSES: 1. Left calcaneal osteomyelitis. 2. Peripheral vascular disease of the lower extremities. 3. 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 PROCEDURE: Left below knee amputation. SURGEON: Chuckie Guillermo DO GRADER PATROL: Jeffery Renee PA-C who was present for patient positioning, sterile prep and drape, management of retractors and instruments. He was present through the critical portions of the case including wound closure, application of sterile dressing and transport of the patient to recovery. ANESTHESIA: General LMA with regional block. SPECIMENS: Left foot and lower leg, left lower extremity. DRAINS: Hemovac x2. COMPLICATIONS: None. BLOOD LOSS: 5 mL. PERTINENT HISTORY: This is a 68-year-old gentleman who has had a complicating medical history of left calcaneal osteomyelitis with failed conservative management, failed debridement, failed IV antibiotic treatment, failed oral antibiotic treatment, failed implantation of antibiotic laden beads, failed wound care therapy, failed nonweightbearing with continued osteomyelitis with chronic ulceration of the left heel with underlying peripheral vascular disease. The patient had radiographs and MRI and was then scheduled for surgery as indicated. All potential risks, benefits, complications, alternatives, rehab, potential for incomplete relief of symptoms, need for further surgery, DVT, PE, , persistent pain, swelling, scarring, weakness, neurovascular injury, wound complications, need for further surgery or wound management were discussed with the patient. Discussed possibility of loss of function and phantom limb pain after surgery. The patient and his both decided to proceed with the procedure as indicated. DESCRIPTION OF PROCEDURE: The patient had a regional anesthetic, left lower extremity preop holding area, then taken to the operative suite, placed supine on the operating table. I reviewed consent and identification of proper operative site, the patient was anesthetized and LMA was placed. Left lower extremity had a tourniquet applied high on the left lower extremity over cast padding. Left lower extremity was then sterilely prepped in usual fashion, elevated and partially exsanguinated extending from the ankle proximally with an Esmarch bandage, tourniquet inflated to 300 mmHg. Next, a 10-blade scalpel was used to make a transverse incision of the dorsal aspect of the lower leg approximately 11 cm distal to the tibial tubercle. This was completed through the skin and subcutaneous tissue with a 10-blade scalpel. Electrocautery was used to judiciously provide hemostasis. Dissection was then carried through the tibialis anterior musculature and the periosteum around this tibia and using Hohmann retractors, the tibia was then clearly identified. A Crespo elevator was used to elevate the periosteum approximately 1 cm proximal to the skin incision. At this point, a transverse cut was made with a sagittal saw, protecting the soft tissues with the Hohmann retractors. Once the tibia was cut, dorsal bevel was performed with a sagittal saw, protecting soft tissues to reduce any irritation from the residual limb on eventual prostheses. Next, the rasp was then used to smooth and contour the remainder of the distal tibia. Next, 10-blade scalpel was then used to create 2 distally oriented incisions along the medial and lateral aspects of the lower leg extending distally to approximately 5 cm proximal to the ankle joint. Then, a posterior transverse incision was made to complete the flap geometry. Full thickness incision was made through the skin and subcutaneous tissue and into the Lance's fascia and then the gastrocnemius soleus fascia that coalescenced into the Achilles tendon was then transected deep to bone posteriorly. Electrocautery was judiciously used with care to provide strict hemostasis. Next, the fibula was then skeletonized approximately 1 cm proximal to the level of the tibial cut. Soft tissues were protected with Hohmann retractors and then oblique osteotomy was created with a sagittal saw and the fibula. Next, the tissue were then stripped from the posterior aspect of the tibia and the fibula and then the soft tissue transection was then completed posteriorly. The residual limb had been wrapped in Coban and was placed in the backtable and sent off as specimen. Next, the neurovascular bundles were identified using careful dissection using Metzenbaum scissors and forceps. The vessels were severely calcified as was anticipated for the patient's history and advanced imaging performed previously. A #2 doubled silk ties were then used to tie off the tibial nerve, the posterior tibial artery and vein. Peroneal vessels as well as the saphenous vessels. This was performed just proximal to the level of the bone cut to avoid any irritation or any stump neuroma formation. Next, the 10-blade scalpel was then used to bevel the posterior compartment soft tissues and muscle to provide a smooth transition to the flap closure. Next, there was noted to be no residual bleeding, pulsatile lavage with bacitracin was then used to cleanse and irrigate the soft tissues throughout. Once this was completed, the Achilles tendon and Lance's fascia was then closed with buried interrupted [id number] suture pattern into the anterior periosteum just anterior to the tibia with a buried knot construct. Next, #1 Vicryl was closed both medially and laterally closing the gastroc soleus fascia to the more proximal fascia. Next, a 10-Nepali Hemovac drain x2 was then placed in the deep soft tissue extending proximally. Pulsatile lavage was then used to cleanse the incision until clear after Lance's fascia was closed. The dermis was closed using buried interrupted 2-0 Vicryl sutures. Skin was closed using 3-0 nylon. Well-formed residual limb was noted. Next, a sterile compressive dressing and ABD pads were applied and wrapped in Gigi wrap. Tourniquet was released. The stump was noted to be pink and warm. The patient was awakened and taken to recovery in stable condition. I attest to the content of the Intraoperative Record and any orders documented therein. Any exception s are noted below.
[2019-08-15] MEDS: OXYCODONE HCL IR 5 MG TAB (IMMEDIATE RELEASE) PO PRN ×4 (01:43→18:01)
[2019-08-15] MEDS: SODIUM CHLORIDE 0.9% 1000ML 1,000 ML IV SCH (04:47)
[2019-08-15] MEDS: CEFAZOLIN 2000MG 2,000 MG/15 ML SYR IV SCH (05:07)
[2019-08-15] MEDS: LEVOTHYROXINE SODIUM 25 MCG TABLET PO SCH (05:07)
[2019-08-15] MEDS: ACETAMINOPHEN 500 MG TAB PO SCH ×3 (05:07→21:11)
[2019-08-15 08:07] LABS: Hematocrit (blood only) 28.5 % (42-52); Hemoglobin 9.3 g/dL (14.0-18.0); Mean Corpuscular Hemoglobin 30.4 pg (25-34); Mean Corpuscular Hgb Conc 32.6 g/dL (32-36); Mean Corpuscular Volume 93.1 fL (80-100); Mean Platelet Volume 9.7 fL (7.4-10.4); Platelet Count 183 K/uL (130-400); RDW Coefficient of Variation 15.3 % (11.5-14.5); RDW Standard Deviation 52.1 fL (36.4-46.3); Red Blood Count 3.06 M/uL (4.7-6.1); White Blood Count 7.19 K/uL (4.8-10.8)
[2019-08-15 08:33] LABS: BUN Creatinine Ratio 18.1 (10-20); Est GFR (African American) 96.3; Est GFR (Non-African American) 83.1; Potassium 4.1 mmol/L (3.5-5.1)
[2019-08-15] MEDS ORDERED: MULTIVITAMIN TAB PO SCH (09:00)
[2019-08-15] MEDS: INSULIN ASPART 100 UNITS/ML 3 ML PEN SC SCH ×4 (09:50→21:10)
[2019-08-15] MEDS: FERROUS SULFATE 325 MG TAB PO SCH ×2 (09:51→18:28)
[2019-08-15] MEDS: MULTIVITAMIN TAB PO SCH (09:51)
[2019-08-15] MEDS: BUMETANIDE 1 MG TAB PO SCH (09:51)
[2019-08-15] MEDS: GABAPENTIN 100 MG CAP PO SCH ×3 (09:52→21:11)
[2019-08-15] MEDS: LOSARTAN POTASSIUM 25 MG TAB PO SCH (09:52)
[2019-08-15] MEDS: FINASTERIDE 5 MG TAB PO SCH (09:52)
[2019-08-15] MEDS: METOPROLOL SUCC 25MG EXT REL TAB PO SCH (09:52)
[2019-08-15] MEDS: DOCUSATE SODIUM 100 MG CAP PO SCH ×2 (09:52→21:09)
[2019-08-15] MEDS: ASCORBIC ACID 500 MG TAB PO SCH (09:53)
[2019-08-15] MEDS: CLOPIDOGREL BISULFATE 75 MG TAB PO SCH (09:53)
[2019-08-15] MEDS: LACTOBACILLUS ACIDOPHILUS (FLORANEX) TAB PO SCH (09:53)
[2019-08-15] MEDS: PANTOprazole 40 MG TAB PO SCH ×2 (09:53→21:09)
[2019-08-15] MEDS: ASPIRIN 81 MG ECTAB PO SCH (09:54)
[2019-08-15] MEDS: CHOLECALCIFEROL 1,000 UNITS 25 MCG TAB PO SCH (09:54)
--- NOTE | 2019-08-15 10:18 | Orthopedic Progress Note ---
Date of Service August 15, 2019 Assessment & Plan (1) Status post below-knee amputation of left lower extremity: POD #1 LEFT BKA most likely dc to snf or rehab when ready TEDS and SCDs Admission and Anticipated Discharge Date Admission Date: August 14, 2019 Subjective patient resting in bed. mild pain. No cp, sob, dizziness, lightheadedness Physical Exam Physical Exam: KACEY wrap in place. Hemovac in place. ROM of the knee Results & Data ([facility]) Vital Signs (Past 12 Hours) Vital Signs Temp Pulse Resp BP Pulse Ox 08/15/19 07:59 36.8 C 79 18 109/64 97 08/15/19 04:08 37.1 C 79 18 119/68 97 08/14/19 23:25 36.8 C 72 20 124/75 99
--- NOTE | 2019-08-15 14:42 | Hospitalist Progress Note ---
Date of Service August 15, 2019 Assessment & Plan (1) Status post below-knee amputation of left lower extremity: POD #1 Patient with some phantom pain of the left hightower. Otherwise pain well controlled Dressing in place and dry Continue gabapentin PT/OT consults placed Anticipating need for rehab Further management per orthopedics (2) Chronic osteomyelitis of ankle and foot: Patient has been placed on Zerbaxa (third-generation cephalosporin) per infectious disease for chronic osteomyelitis We will continue treatment for now although patient with BKA (3) BPH (benign prostatic hyperplasia): Continue Flomax Patient with chronically indwelling Rojas catheter since July 2018 * Rojas should be changed this admission prior to discharge (4) History of CHF (congestive heart failure): No evidence of failure at the time of my examination today Echocardiogram 04/2018 with LVEF 30 to 35% Follow fluid status Continue bumetanide (5) PAD (peripheral artery disease): Continue clopidogrel daily (6) Coronary artery disease: History of CABG Positive for ischemic cardiomyopathy Positive for hypertension AICD is implanted Continue aspirin, Plavix, losartan, Toprol XL Continue statin Hemodynamically stable (7) Type 2 diabetes mellitus: Continue basal Lantus and sliding scale insulin with NovoLog Hemoglobin A1c 6.0 07/15/2019 Continue with diabetic diet (8) Anemia: Hemoglobin is stable at 9.8 Continue ferrous sulfate for iron deficiency No significant blood loss with surgery At this point, patient seems relatively stable. Focus on physical and Occupational Therapy. We will follow along until discharged Please refer to Dr. Fernandez's addendum for any additional recommendations. Admission and Anticipated Discharge Date Admission Date: August 14, 2019 Subjective Attending: Dr. Malik Fernandez Patient seen and examined at bedside. He is in good spirits. Patient states that his pain is generally controlled at his left BKA. Tylenol was used overnight for pain control. This morning the patient got 1 oxycodone. Patient is having some phantom pain of his left hightower. He denies any shortness of breath. No chest pain or tightness. He denies any fever or chills. He has no other acute complaints. Review of Systems Review of Systems: All systems reviewed & are unremarkable except as noted in HPI & below Physical Exam Physical Exam: GENERAL : No acute distress. Pleasant and talkative. EYES: No icterus, gaze conjugate NOSE: No evidence of epistaxis MOUTH: No lesions or candidiasis NECK: Supple LUNGS: CTA B/L, no wheezes, rales or rhonchi. Good inspirational effort HEART: Regular, rate controlled ABDOMEN: Soft, NT, ND, BS Present EXTREMITIES: No LE edema, pedal pulse intact to the right foot. Unable to auscultate popliteal pulse on the left secondary to bandage. The bandage to the left stump is dry and intact. Hemovac is intact with dark red blood draining. NEURO: A&OX3 Results & Data ([facility]) Vital Signs (Past 12 Hours) Vital Signs Temp Pulse Resp BP Pulse Ox 08/15/19 07:59 36.8 C 79 18 109/64 97 08/15/19 04:08 37.1 C 79 18 119/68 97 Laboratory Results 08/15/19 07:23 08/15/19 07:23 Diagnostic Findings No diagnostic imaging PG Care Time/CCT Total # of Minutes Spent Total Time Spent with Patient: Total time spent is greater than 50% in coordination of care (as documented) at patient's floor/unit and/or counseling patient: Coding Level of Care Code 55705 Subseq Hosp Care Lvl 2 Diagnoses Status post below-knee amputation of left lower extremity Z89.512 Chronic osteomyelitis of ankle and foot M86.672 Laterality: left BPH (benign prostatic hyperplasia) N40.0 Lower urinary tract symptom presence: unspecified whether lower urinary tract symptoms present History of CHF (congestive heart failure) Z86.79 PAD (peripheral artery disease) I73.9 Coronary artery disease I25.10 Coronary Disease-Associated Artery/Lesion type: ely [place] artery [place] vs. transplanted heart: ely shoshone heart Associated angina: without angina Type 2 diabetes mellitus E11.52; Z79.4 Diabetes mellitus detention insulin use: with detention use Diabetes mellitus complication status: with circulatory complication Diabetes mellitus complication detail: with peripheral angiopathy with gangrene Anemia D64.9 Anemia type: unspecified type (1) Chronic osteomyelitis of ankle and foot Laterality: left Qualified Code(s): M86.672 - Other chronic osteomyelitis, left ankle and foot (2) BPH (benign prostatic hyperplasia) Lower urinary tract symptom presence: unspecified whether lower urinary tract symptoms present Qualified Code(s): N40.0 - Benign prostatic hyperplasia without lower urinary tract symptoms (3) Coronary artery disease Coronary Disease-Associated Artery/Lesion type: ely [place] artery [place] vs. transplanted heart: ely shoshone heart Associated angina: without angina Qualified Code(s): I25.10 - Atherosclerotic heart disease of ely shoshone coronary artery without angina pectoris (4) Type 2 diabetes mellitus Diabetes mellitus buttermaker continuous churn insulin use: with buttermaker continuous churn use Diabetes mellitus complication status: with circulatory complication Diabetes mellitus complication detail: with peripheral angiopathy with gangrene Qualified Code(s): E11.52 - Type 2 diabetes mellitus with diabetic peripheral angiopathy with gangrene; Z79.4 - retirement (current) use of insulin (5) Anemia Anemia type: unspecified type Qualified Code(s): D64.9 - Anemia, unspecified
[2019-08-15] MEDS: HYDROmorphone INJ 0.5 MG/0.5 ML SYR IV PRN (18:47)
[2019-08-15] MEDS: SENNA 8.6 MG TAB PO SCH (21:09)
[2019-08-15] MEDS: INSULIN GLARGINE SOLOSTAR 100 UNITS/ML 3 ML PEN SQ SCH (21:10)
[2019-08-15] MEDS: QUETIAPINE FUMARATE 25 MG TABLET PO SCH (21:11)
[2019-08-15] MEDS: TAMSULOSIN HCL 0.4 MG CAP PO SCH (21:58)
[2019-08-16] MEDS: OXYCODONE HCL IR 5 MG TAB (IMMEDIATE RELEASE) PO PRN ×4 (00:14→18:15)
[2019-08-16] MEDS: HYDROmorphone INJ 0.5 MG/0.5 ML SYR IV PRN (01:31)
[2019-08-16] MEDS: LEVOTHYROXINE SODIUM 25 MCG TABLET PO SCH (06:03)
[2019-08-16] MEDS: ACETAMINOPHEN 500 MG TAB PO SCH ×3 (06:03→21:31)
--- NOTE | 2019-08-16 09:27 | Pharmacy Report ---
Pharmacy Glycemic Short Note 2 - Date of Service August 16, 2019 - Glycemic Short BSG Results (Last 24 hours): 08/15/19 08/15/19 08/15/19 07:23 12:01 17:16 Glucose 75 POC Glucose 112 H 108 H 08/15/19 08/16/19 20:16 08:05 Glucose POC Glucose 120 H 78 ASSESSMENT: * Post operative BSGs have been well controlled. No acute fluctuation in insulin requirements are anticipated. PLAN FOR INPATIENT GLYCEMIC CONTROL: * Hold outpatient oral diabetes medications * Basal insulin * Lantus scale 10 or 13 units * Bolus insulin - loosened * NovoLog per scale ACHS or Q6hrs while NPO * Goal Range: Low 110 mg/dL - High 140 mg/dL * Correction Factor: 30 mg/dL/unit * Nutritional / Prandial insulin per carb ratio of 1 unit per 8 grams CHO consumed
[2019-08-16] MEDS: CLOPIDOGREL BISULFATE 75 MG TAB PO SCH (09:32)
[2019-08-16] MEDS: METOPROLOL SUCC 25MG EXT REL TAB PO SCH (09:32)
[2019-08-16] MEDS: ASPIRIN 81 MG ECTAB PO SCH (09:33)
[2019-08-16] MEDS: LACTOBACILLUS ACIDOPHILUS (FLORANEX) TAB PO SCH (09:33)
[2019-08-16] MEDS: MULTIVITAMIN TAB PO SCH (09:33)
[2019-08-16] MEDS: CHOLECALCIFEROL 1,000 UNITS 25 MCG TAB PO SCH (09:33)
[2019-08-16] MEDS: GABAPENTIN 100 MG CAP PO SCH ×3 (09:34→21:30)
[2019-08-16] MEDS: PANTOprazole 40 MG TAB PO SCH ×2 (09:34→21:31)
[2019-08-16] MEDS: FERROUS SULFATE 325 MG TAB PO SCH ×2 (09:34→18:15)
[2019-08-16] MEDS: BUMETANIDE 1 MG TAB PO SCH (09:34)
[2019-08-16] MEDS: LOSARTAN POTASSIUM 25 MG TAB PO SCH (09:35)
[2019-08-16] MEDS: DOCUSATE SODIUM 100 MG CAP PO SCH ×2 (09:35→21:32)
[2019-08-16] MEDS: ASCORBIC ACID 500 MG TAB PO SCH (09:35)
[2019-08-16] MEDS: FINASTERIDE 5 MG TAB PO SCH (09:35)
[2019-08-16] MEDS: INSULIN ASPART 100 UNITS/ML 3 ML PEN SC SCH ×4 (09:37→21:29)
--- NOTE | 2019-08-16 10:15 | Orthopedic Progress Note ---
Date of Service August 16, 2019 Assessment & Plan (1) Status post below-knee amputation of left lower extremity: POD #2 LEFT BKA most likely dc to snf or rehab when ready TEDS and SCDs dressing changed today Admission and Anticipated Discharge Date Admission Date: August 14, 2019 Subjective Patient resting comfortably in bed. Feeling better today. Denies chest pain, SOB, dizziness, lightheadedness. Physical Exam Physical Exam: NVI. Calves soft, non tender. Dressing removed. Wound healing well. new dressing applied Results & Data ([facility]) Vital Signs (Past 12 Hours) Vital Signs Temp Pulse Resp BP Pulse Ox 08/16/19 08:05 36.8 C 71 16 109/65 98 08/15/19 23:00 37.8 C H 79 18 121/66 97
--- NOTE | 2019-08-16 15:59 | Hospitalist Progress Note ---
Date of Service August 16, 2019 Assessment & Plan (1) Status post below-knee amputation of left lower extremity: POD #2 Patient with some phantom pain of the left hightower. Otherwise pain well controlled Dressing in place and dry Continue gabapentin PT/OT consults placed Anticipating need for rehab Further management per orthopedics (2) Chronic osteomyelitis of ankle and foot: No indication for further antibiotics as amputation was curative ID notes reviewed from Dr. Guzman (3) BPH (benign prostatic hyperplasia): Continue Flomax Patient with chronically indwelling Rojas catheter since July 2018 * Rojas should be changed this admission prior to discharge (4) History of CHF (congestive heart failure): No evidence of failure Echocardiogram 04/2018 with LVEF 30 to 35% Follow fluid status Continue bumetanide (5) PAD (peripheral artery disease): Continue clopidogrel daily (6) Coronary artery disease: History of CABG Positive for ischemic cardiomyopathy Positive for hypertension AICD is implanted Continue aspirin, Plavix, losartan, Toprol XL Continue statin Hemodynamically stable (7) Type 2 diabetes mellitus: Continue basal Lantus and sliding scale insulin with NovoLog Hemoglobin A1c 6.0 07/15/2019 Random glucose 75 BSG is relatively well controlled Continue with diabetic diet (8) Anemia: Hemoglobin is stable at 9.8 Continue ferrous sulfate for iron deficiency No significant blood loss with surgery At this point, patient seems relatively stable. Focus on physical and Occupational Therapy. We will follow along until discharged Admission and Anticipated Discharge Date Admission Date: August 14, 2019 Subjective Attending: Dr. Malik Fernandez Patient seen and examined at bedside. He is doing well today. The dressing has been taken off and changed to his left BKA stump. Pain is well controlled. He has no shortness of breath or chest pain. He has no cough. He denies fever or chills. Review of Systems Review of Systems: All systems reviewed & are unremarkable except as noted in HPI & below Physical Exam Physical Exam: GENERAL : No acute distress EYES: No icterus, gaze conjugate NOSE: No evidence of epistaxis MOUTH: No lesions or candidiasis NECK: Supple LUNGS: CTA B/L, no wheezes, rales or rhonchi HEART: Regular, rate controlled ABDOMEN: Soft, NT, ND, BS Present EXTREMITIES: No LE edema, right pedal pulse intact. Left popliteal pulse intact. Dressing to left BKA stump dry and intact NEURO: A&OX3 Results & Data ([facility]) Vital Signs (Past 12 Hours) Vital Signs Temp Pulse Resp BP Pulse Ox 08/16/19 15:29 36.8 C 71 16 111/62 99 08/16/19 08:05 36.8 C 71 16 109/65 98 Laboratory Results 08/15/19 07:23 08/15/19 07:23 Diagnostic Findings No imaging since surgery PG Care Time/CCT Total # of Minutes Spent Total Time Spent with Patient: Total time spent is greater than 50% in coordination of care (as documented) at patient's floor/unit and/or counseling patient: 20 minutes Coding Level of Care Code 10984 Subseq Hosp Care Lvl 2 Diagnoses Status post below-knee amputation of left lower extremity Z89.512 Chronic osteomyelitis of ankle and foot M86.672 Laterality: left BPH (benign prostatic hyperplasia) N40.0 Lower urinary tract symptom presence: unspecified whether lower urinary tract symptoms present History of CHF (congestive heart failure) Z86.79 PAD (peripheral artery disease) I73.9 Coronary artery disease I25.10 Coronary Disease-Associated Artery/Lesion type: [place] artery [place] vs. transplanted heart: [place] heart Associated angina: without angina Type 2 diabetes mellitus E11.52; Z79.4 Diabetes mellitus fpc insulin use: with fpc use Diabetes mellitus complication status: with circulatory complication Diabetes mellitus complication detail: with peripheral angiopathy with gangrene Anemia D64.9 Anemia type: unspecified type (1) Chronic osteomyelitis of ankle and foot Laterality: left Qualified Code(s): M86.672 - Other chronic osteomyelitis, left ankle and foot (2) BPH (benign prostatic hyperplasia) Lower urinary tract symptom presence: unspecified whether lower urinary tract symptoms present Qualified Code(s): N40.0 - Benign prostatic hyperplasia without lower urinary tract symptoms (3) Coronary artery disease Coronary Disease-Associated Artery/Lesion type: [place] artery [place] vs. transplanted heart: [place] heart Associated angina: without angina Qualified Code(s): I25.10 - Atherosclerotic heart disease of [place] coronary artery without angina pectoris (4) Type 2 diabetes mellitus Diabetes mellitus fpc insulin use: with vermin 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 use Diabetes mellitus complication status: with circulatory complication Diabetes mellitus complication detail: with peripheral angiopathy with gangrene Qualified Code(s): E11.52 - Type 2 diabetes mellitus with diabetic peripheral angiopathy with gangrene; Z79.4 - emt intermediate (current) use of insulin (5) Anemia Anemia type: unspecified type Qualified Code(s): D64.9 - Anemia, unspecified
[2019-08-16] MEDS: INSULIN GLARGINE SOLOSTAR 100 UNITS/ML 3 ML PEN SQ SCH (21:29)
[2019-08-16] MEDS: SENNA 8.6 MG TAB PO SCH (21:32)
[2019-08-16] MEDS: QUETIAPINE FUMARATE 25 MG TABLET PO SCH (21:32)
[2019-08-16] MEDS: TAMSULOSIN HCL 0.4 MG CAP PO SCH (21:32)
[2019-08-17] MEDS: LEVOTHYROXINE SODIUM 25 MCG TABLET PO SCH (06:00)
[2019-08-17] MEDS: ACETAMINOPHEN 500 MG TAB PO SCH ×3 (06:00→21:25)
--- NOTE | 2019-08-17 07:55 | Anesthesiology Progress Note ---
Date of Service August 17, 2019 Anesthesia Post Procedure Vital Signs Vital Signs: Temp Pulse Resp BP Pulse Ox 08/17/19 07:37 36.4 C L 65 20 112/66 98 08/17/19 02:15 36.9 C 08/16/19 23:38 37.7 C H 82 16 114/65 98 08/16/19 15:29 36.8 C 71 16 111/62 99 08/16/19 08:05 36.8 C 71 16 109/65 98 Notes Mental Status: alert / awake / arousable and participated in evaluation Patient Amnestic to Procedure: Yes Nausea / Vomiting: adequately controlled Pain: adequately controlled Airway Patency, RR, SpO2: stable & adequate BP & HR: stable & adequate Hydration State: stable & adequate Anesthetic Complications: no major complications apparent
[2019-08-17] MEDS: LACTOBACILLUS ACIDOPHILUS (FLORANEX) TAB PO SCH (09:05)
[2019-08-17] MEDS: CLOPIDOGREL BISULFATE 75 MG TAB PO SCH (09:05)
[2019-08-17] MEDS: BUMETANIDE 1 MG TAB PO SCH (09:05)
[2019-08-17] MEDS: METOPROLOL SUCC 25MG EXT REL TAB PO SCH (09:05)
[2019-08-17] MEDS: ASPIRIN 81 MG ECTAB PO SCH (09:05)
[2019-08-17] MEDS: MULTIVITAMIN TAB PO SCH (09:05)
[2019-08-17] MEDS: LOSARTAN POTASSIUM 25 MG TAB PO SCH (09:05)
[2019-08-17] MEDS: GABAPENTIN 100 MG CAP PO SCH ×3 (09:06→21:26)
[2019-08-17] MEDS: ASCORBIC ACID 500 MG TAB PO SCH (09:06)
[2019-08-17] MEDS: FINASTERIDE 5 MG TAB PO SCH (09:06)
[2019-08-17] MEDS: FERROUS SULFATE 325 MG TAB PO SCH ×2 (09:06→17:59)
[2019-08-17] MEDS: DOCUSATE SODIUM 100 MG CAP PO SCH ×2 (09:06→21:28)
[2019-08-17] MEDS: PANTOprazole 40 MG TAB PO SCH ×2 (09:06→21:27)
[2019-08-17] MEDS: CHOLECALCIFEROL 1,000 UNITS 25 MCG TAB PO SCH (09:06)
[2019-08-17] MEDS: INSULIN ASPART 100 UNITS/ML 3 ML PEN SC SCH ×4 (09:14→21:24)
--- NOTE | 2019-08-17 10:39 | Hospitalist Progress Note ---
Date of Service August 17, 2019 Assessment & Plan (1) Status post below-knee amputation of left lower extremity: POD #3 Patient with some phantom pain of the left hightower that is improving. Otherwise pain well controlled Dressing in place and dry Continue gabapentin Awaiting rehab Further management per orthopedics (2) Chronic osteomyelitis of ankle and foot: No indication for further antibiotics as amputation was curative ID notes reviewed from Dr. Guzman (3) BPH (benign prostatic hyperplasia): Continue Flomax Patient with chronically indwelling Rojas catheter since July 2018 * Rojas should be changed this admission prior to discharge * Discussed with patient as well as nurse to have Rojas changed today (08/17/2019) (4) History of CHF (congestive heart failure): No evidence of failure Echocardiogram 04/2018 with LVEF 30 to 35% Follow fluid status Continue bumetanide (5) PAD (peripheral artery disease): Continue clopidogrel daily (6) Coronary artery disease: History of CABG Positive for ischemic cardiomyopathy Positive for hypertension AICD is implanted Continue aspirin, Plavix, losartan, Toprol XL Hemodynamically stable In spite of CAD, PVD, PAD, patient apparently has never been on a statin medication. I cannot tell if the patient had an adverse reaction in the past. I reviewed outpatient notes and there is no sign of adverse reaction or of the patient being on a statin in the past. At this time, will defer to outpatient to follow and make recommendations. Labs do not indicate dyslipidemia. (7) Type 2 diabetes mellitus: Continue basal Lantus and sliding scale insulin with NovoLog Hemoglobin A1c 6.0 07/15/2019 Random glucose 75 BSG is relatively well controlled Continue with diabetic diet (8) Anemia: Hemoglobin is stable at 9.8 Continue ferrous sulfate for iron deficiency No significant blood loss with surgery At this point, patient seems relatively stable. Focus on physical and Occupational Therapy. Patient has been stable for 3 days and surgery. At this time medicine will sign off. Please feel free to reconsult as needed. Admission and Anticipated Discharge Date Admission Date: August 14, 2019 Subjective Attending: Dr. Malik Fernandez Patient is doing well today he has no acute complaints. His phantom pain is better in his left hightower. He has no fever chills. He has no difficulty with breathing. He has no evidence of aspiration with meals. He has no acute complaints. Review of Systems Review of Systems: All systems reviewed & are unremarkable except as noted in HPI & below Physical Exam Physical Exam: GENERAL : No acute distress EYES: No icterus, gaze conjugate NOSE: No evidence of epistaxis MOUTH: No lesions or candidiasis NECK: Supple LUNGS: CTA B/L, no wheezes, rales or rhonchi HEART: Regular, rate controlled ABDOMEN: Soft, NT, ND, BS Present EXTREMITIES: No LE edema, pedal pulse intact on the right. Popliteal pulse is positive and palpable on the left. Dressing dry and intact of the left BKA stump NEURO: A&OX3 Results & Data ([facility]) Vital Signs (Past 12 Hours) Vital Signs Temp Pulse Resp BP Pulse Ox 08/17/19 07:37 36.4 C L 65 20 112/66 98 08/17/19 02:15 36.9 C 08/16/19 23:38 37.7 C H 82 16 114/65 98 Laboratory Results 08/15/19 07:23 08/15/19 07:23 Diagnostic Findings No new diagnostics and surgery PG Care Time/CCT Total # of Minutes Spent Total Time Spent with Patient: Total time spent is greater than 50% in coordi nation of care (as documented) at patient's floor/unit and/or counseling patient: 20 minutes Coding Level of Care Code 48264 Subseq Hosp Care Lvl 2 Diagnoses Status post below-knee amputation of left lower extremity Z89.512 Chronic osteomyelitis of ankle and foot M86.672 Laterality: left BPH (benign prostatic hyperplasia) N40.0 Lower urinary tract symptom presence: unspecified whether lower urinary tract symptoms present History of CHF (congestive heart failure) Z86.79 PAD (peripheral artery disease) I73.9 Coronary artery disease I25.10 Associated angina: without angina Coronary Disease-Associated Artery/Lesion type: [place] artery [place] vs. transplanted heart: robinson heart Type 2 diabetes mellitus E11.52; Z79.4 Diabetes mellitus complication detail: with peripheral angiopathy with ga ngrene Diabetes mellitus complication status: with circulatory complication Diabetes mellitus terminal press operator insulin use: with terminal press operator use Anemia D64.9 Anemia type: unspecified type (1) BPH (benign prostatic hyperplasia) Lower urinary tract symptom presence: unspecified whether lower urinary tract symptoms present Qualified Code(s): N40.0 - Benign prostatic hyperplasia without lower urinary tract symptoms (2) Type 2 diabetes mellitus Diabetes mellitus complication detail: with peripheral angiopathy with gangrene Diabetes mellitus complication status: with circulatory complication Diabetes mellitus usp insulin use: with terminal press operator use Qualified Code(s): E11.52 - Type 2 diabetes mellitus with diabetic peripheral angiopathy with gangrene; Z79.4 - terminal press operator (current) use of insulin (3) Coronary artery disease Associated angina: without angina Coronary Disease-Associated Artery/Lesion type: [place] artery [place] vs. transplanted heart: robinson heart Qualified Code(s): I25.10 - Atherosclerotic heart disease of robinson coronary artery without angina pectoris (4) Anemia Anemia type: unspecified type Qualified Code(s): D64.9 - Anemia, unspecified (5) Chronic osteomyelitis of ankle and foot Laterality: left Qualified Code(s): M86.672 - Other chronic osteomyelitis, left ankle and foot
[2019-08-17] MEDS: OXYCODONE HCL IR 5 MG TAB (IMMEDIATE RELEASE) PO PRN ×2 (12:18→19:16)
--- NOTE | 2019-08-17 14:00 | Orthopedic Progress Note ---
Date of Service August 17, 2019 Assessment & Plan (1) Status post below-knee amputation of left lower extremity: POD #3 LEFT BKA snf or rehab when ready TEDS and SCDs daily dressing changes Ice/elvation Admission and Anticipated Discharge Date Admission Date: August 14, 2019 Subjective Post Operative Progress Note Patient seen sitting up in bed, comfortable, denies complaints, pain well controlled, no acute issues. Review of Systems Review of Systems: All systems reviewed & are unremarkable except as noted in HPI & below Constitutional: as per Subjective / HPI Physical Exam Physical Exam: LLE PE BKA, dressing CDI, compartments soft NT Constitutional: WD/WN, vitals as above Results & Data ([facility]) Vital Signs (Past 12 Hours) Vital Signs Temp Pulse Resp BP Pulse Ox 08/17/19 07:37 36.4 C L 65 20 112/66 98 08/17/19 02:15 36.9 C
[2019-08-17] MEDS ORDERED: INSULIN GLARGINE SOLOSTAR 100 UNITS/ML 3 ML PEN SQ SCH (21:00)
[2019-08-17] MEDS: SENNA 8.6 MG TAB PO SCH (21:26)
[2019-08-17] MEDS: TAMSULOSIN HCL 0.4 MG CAP PO SCH (21:27)
[2019-08-17] MEDS: QUETIAPINE FUMARATE 25 MG TABLET PO SCH (21:28)
[2019-08-18] MEDS: LEVOTHYROXINE SODIUM 25 MCG TABLET PO SCH (05:46)
[2019-08-18] MEDS: ACETAMINOPHEN 500 MG TAB PO SCH ×3 (05:46→21:11)
[2019-08-18] MEDS: INSULIN ASPART 100 UNITS/ML 3 ML PEN SC SCH ×4 (09:06→21:11)
[2019-08-18] MEDS: FERROUS SULFATE 325 MG TAB PO SCH ×2 (09:06→09:26)
[2019-08-18] MEDS: LACTOBACILLUS ACIDOPHILUS (FLORANEX) TAB PO SCH (09:25)
[2019-08-18] MEDS: CHOLECALCIFEROL 1,000 UNITS 25 MCG TAB PO SCH (09:25)
[2019-08-18] MEDS: ASPIRIN 81 MG ECTAB PO SCH (09:26)
[2019-08-18] MEDS: CLOPIDOGREL BISULFATE 75 MG TAB PO SCH (09:26)
[2019-08-18] MEDS: MULTIVITAMIN TAB PO SCH (09:26)
[2019-08-18] MEDS: METOPROLOL SUCC 25MG EXT REL TAB PO SCH (09:26)
[2019-08-18] MEDS: PANTOprazole 40 MG TAB PO SCH ×2 (09:26→21:10)
[2019-08-18] MEDS: FINASTERIDE 5 MG TAB PO SCH (09:26)
[2019-08-18] MEDS: LOSARTAN POTASSIUM 25 MG TAB PO SCH (09:26)
[2019-08-18] MEDS: GABAPENTIN 100 MG CAP PO SCH ×3 (09:26→21:10)
[2019-08-18] MEDS: ASCORBIC ACID 500 MG TAB PO SCH (09:26)
[2019-08-18] MEDS: BUMETANIDE 1 MG TAB PO SCH (09:27)
[2019-08-18] MEDS: DOCUSATE SODIUM 100 MG CAP PO SCH ×2 (09:27→21:08)
[2019-08-18] MEDS: OXYCODONE HCL IR 5 MG TAB (IMMEDIATE RELEASE) PO PRN ×2 (11:18→19:52)
--- NOTE | 2019-08-18 14:23 | Pharmacy Report ---
Pharmacy Glycemic Short Note 2 - Date of Service August 18, 2019 - Glycemic Short BSG Results (Last 24 hours): 08/17/19 08/17/19 08/18/19 17:05 20:53 08:13 POC Glucose 228 H 181 H 98 08/18/19 12:08 POC Glucose 176 H ASSESSMENT: 08/17: * Patient received total of 41 units of insulin yesterday, of which 13 were basal insulin * BSGs trending up throughout the day, will tighten CR slightly * BSGs tend to drop significantly overnight - will provide scale for Lantus dosing based upon BSG PLAN FOR INPATIENT GLYCEMIC CONTROL: * Hold outpatient oral diabetes medications * Basal insulin * Lantus scale 10 or 13 units * Bolus insulin - tighten * NovoLog per scale ACHS or Q6hrs while NPO * Goal Range: Low 110 mg/dL - High 140 mg/dL * Correction Factor: 30 mg/dL/unit * Nutritional / Prandial insulin per carb ratio of 1 unit per 7 grams CHO consumed
--- NOTE | 2019-08-18 16:27 | Orthopedic Progress Note ---
Date of Service August 18, 2019 Assessment & Plan (1) Status post below-knee amputation of left lower extremity: POD #4 LEFT BKA snf or rehab when ready TEDS and SCDs daily dressing changes Ice/elvation Admission and Anticipated Discharge Date Admission Date: August 14, 2019 Subjective Pt sitting up in bed. No complaints currently. Pain controlled. Denies SOB,CP,LH. States he's hoping he goes to [facility] upon dc. Physical Exam Physical Exam: Dressings C/D/I. New dressing applied by nursing staff prior to my arrival. No new changes with wound. Continues to look good per staff. Results & Data ([facility]) Vital Signs (Past 12 Hours) Vital Signs Temp Pulse Resp BP Pulse Ox 08/18/19 15:31 36.8 C 66 14 112/66 99 08/18/19 08:15 78 14 110/64 98
[2019-08-18] MEDS: SENNA 8.6 MG TAB PO SCH (21:08)
[2019-08-18] MEDS: TAMSULOSIN HCL 0.4 MG CAP PO SCH (21:11)
[2019-08-18] MEDS: QUETIAPINE FUMARATE 25 MG TABLET PO SCH (21:11)
[2019-08-18] MEDS: INSULIN GLARGINE SOLOSTAR 100 UNITS/ML 3 ML PEN SQ SCH (21:12)
[2019-08-19] MEDS: ACETAMINOPHEN 500 MG TAB PO SCH ×3 (06:35→21:06)
[2019-08-19] MEDS: LEVOTHYROXINE SODIUM 25 MCG TABLET PO SCH (06:35)
[2019-08-19] MEDS: FERROUS SULFATE 325 MG TAB PO SCH ×2 (09:14→17:57)
[2019-08-19] MEDS: DOCUSATE SODIUM 100 MG CAP PO SCH ×2 (09:15→21:06)
[2019-08-19] MEDS: LOSARTAN POTASSIUM 25 MG TAB PO SCH (09:15)
[2019-08-19] MEDS: BUMETANIDE 1 MG TAB PO SCH (09:15)
[2019-08-19] MEDS: ASPIRIN 81 MG ECTAB PO SCH (09:16)
[2019-08-19] MEDS: LACTOBACILLUS ACIDOPHILUS (FLORANEX) TAB PO SCH (09:17)
[2019-08-19] MEDS: MULTIVITAMIN TAB PO SCH (09:18)
[2019-08-19] MEDS: GABAPENTIN 100 MG CAP PO SCH ×3 (09:18→21:06)
[2019-08-19] MEDS: CLOPIDOGREL BISULFATE 75 MG TAB PO SCH (09:19)
[2019-08-19] MEDS: FINASTERIDE 5 MG TAB PO SCH (09:19)
[2019-08-19] MEDS: ASCORBIC ACID 500 MG TAB PO SCH (09:20)
[2019-08-19] MEDS: METOPROLOL SUCC 25MG EXT REL TAB PO SCH (09:20)
[2019-08-19] MEDS: PANTOprazole 40 MG TAB PO SCH ×2 (09:20→21:06)
[2019-08-19] MEDS: CHOLECALCIFEROL 1,000 UNITS 25 MCG TAB PO SCH (09:21)
[2019-08-19] MEDS: INSULIN ASPART 100 UNITS/ML 3 ML PEN SC SCH ×4 (10:12→21:07)
[2019-08-19] MEDS: OXYCODONE HCL IR 5 MG TAB (IMMEDIATE RELEASE) PO PRN ×2 (10:49→14:42)
--- NOTE | 2019-08-19 12:10 | Orthopedic Progress Note ---
Date of Service August 19, 2019 Assessment & Plan (1) Status post below-knee amputation of left lower extremity: POD #5 LEFT BKA snf or rehab when ready/ accepted. TEDS and SCDs daily dressing changes Ice/elvation Admission and Anticipated Discharge Date Admission Date: August 14, 2019 Subjective Pt sitting up in bed. No complaints currently. Pain controlled. Denies SOB,CP,LH. States he's hoping he goes to [facility] upon dc. Second choice [facility], still awaiting input. Results & Data ([facility]) Vital Signs (Past 12 Hours) Vital Signs Pulse Resp BP Pulse Ox 08/19/19 08:09 61 15 92/51 L 96
[2019-08-19] MEDS: SENNA 8.6 MG TAB PO SCH (21:06)
[2019-08-19] MEDS: TAMSULOSIN HCL 0.4 MG CAP PO SCH (21:06)
[2019-08-19] MEDS: QUETIAPINE FUMARATE 25 MG TABLET PO SCH (21:06)
[2019-08-19] MEDS: INSULIN GLARGINE SOLOSTAR 100 UNITS/ML 3 ML PEN SQ SCH (21:08)
[2019-08-20] MEDS: OXYCODONE HCL IR 5 MG TAB (IMMEDIATE RELEASE) PO PRN ×2 (04:12→10:10)
[2019-08-20] MEDS: ACETAMINOPHEN 500 MG TAB PO SCH ×2 (05:26→13:45)
[2019-08-20] MEDS: LEVOTHYROXINE SODIUM 25 MCG TABLET PO SCH (05:26)
[2019-08-20] MEDS: FERROUS SULFATE 325 MG TAB PO SCH (08:52)
[2019-08-20] MEDS: LOSARTAN POTASSIUM 25 MG TAB PO SCH (08:54)
[2019-08-20] MEDS: DOCUSATE SODIUM 100 MG CAP PO SCH (08:54)
[2019-08-20] MEDS: BUMETANIDE 1 MG TAB PO SCH (08:54)
[2019-08-20] MEDS: LACTOBACILLUS ACIDOPHILUS (FLORANEX) TAB PO SCH (08:55)
[2019-08-20] MEDS: ASPIRIN 81 MG ECTAB PO SCH (08:55)
[2019-08-20] MEDS: MULTIVITAMIN TAB PO SCH (08:56)
[2019-08-20] MEDS: CLOPIDOGREL BISULFATE 75 MG TAB PO SCH (08:57)
[2019-08-20] MEDS: GABAPENTIN 100 MG CAP PO SCH ×2 (08:57→13:45)
[2019-08-20] MEDS: FINASTERIDE 5 MG TAB PO SCH (08:58)
[2019-08-20] MEDS: PANTOprazole 40 MG TAB PO SCH (08:58)
[2019-08-20] MEDS: ASCORBIC ACID 500 MG TAB PO SCH (08:59)
[2019-08-20] MEDS: CHOLECALCIFEROL 1,000 UNITS 25 MCG TAB PO SCH (08:59)
[2019-08-20] MEDS: METOPROLOL SUCC 25MG EXT REL TAB PO SCH (08:59)
[2019-08-20] MEDS: INSULIN ASPART 100 UNITS/ML 3 ML PEN SC SCH ×2 (09:04→12:42)
--- NOTE | 2019-08-20 11:01 | Pharmacy Report ---
Pharmacy Glycemic Short Note 2 - Date of Service August 20, 2019 - Glycemic Short BSG Results (Last 24 hours): 08/19/19 08/19/19 08/19/19 12:10 17:12 20:32 POC Glucose 145 H 99 149 H 08/20/19 08:24 POC Glucose 120 H ASSESSMENT: 08/19: * Leandro received 35 units of SQ insulin yesterday with BSGs ranging from 99-149 mg/dL * 10 units of basal * 25 units of bolus * Fasting BSG of 120 mg/dL is at goal. No changes to Lantus. * Post prandial BSGs are near/at goal. No change in Novolog CF/CR. 08/17: * Patient received total of 41 units of insulin yesterday, of which 13 were basal insulin * BSGs trending up throughout the day, will tighten CR slightly * BSGs tend to drop significantly overnight - will provide scale for Lantus dosing based upon BSG PLAN FOR INPATIENT GLYCEMIC CONTROL: * Hold outpatient oral diabetes medications * Basal insulin * Lantus SQ per scale qHS: * 10 units for < 160 mg/dL * 13 units for 160 mg/dL or more * Bolus insulin * NovoLog per scale ACHS or Q6hrs while NPO * Goal Range: Low 110 mg/dL - High 140 mg/dL * Correction Factor: 30 mg/dL/unit * Nutritional / Prandial insulin per carb ratio of 1 unit per 7 grams CHO consumed DISCHARGE PLANS: * A1c of 6.0% (07/15/19) indicates excellent glycemic control * Recommend continuation of current regimen as long as patient does not experience frequent hypoglycemia at home
--- NOTE | 2019-08-20 11:58 | Orthopedic Progress Note ---
Date of Service August 20, 2019 Assessment & Plan (1) Status post below-knee amputation of left lower extremity: POD #6 LEFT BKA Approved for SNF TEDS and SCDs daily dressing changes Ice/elvation Plan for dc today. Admission and Anticipated Discharge Date Admission Date: August 14, 2019 Subjective Pt sitting up in bed watching TV. No complaints today. Comfortable. Pain controlled. Physical Exam Physical Exam: Dressings changed. Scant serous drainage noted mostly from the lateral corner of the incision. Incision well approximated. No erythema. Results & Data ([facility]) Vital Signs (Past 12 Hours) Vital Signs Temp Pulse Resp BP Pulse Ox 08/20/19 07:30 36.7 C 81 18 138/64 100
--- NOTE | 2019-08-26 09:49 | Discharge Summary ---
Date of Service August 26, 2019 Admission HPI Per Admitting Provider This is a patient with a chronic left heel ulceration and chronic left calcaneal osteomyelitis. He had undergone a previous I & D and implantation antibiotic beads. He continues to have infection in the calcaneus which has affected many other of the patient's medical problems. He is now being set up for left BKA. Principal Diagnosis Chronic left calcaneal osteomyelitis Chronic left heel ulcer Discharge Exam Constitutional well developed and well nourished; no acute distress ENMT external ear and nose normal, oropharynx normal Neck trachea midline, no thyromegaly Respiratory normal respiratory effort, lungs clear to auscultation Cardiovascular Rate/Rhythm: regular rate and regular rhythm Gastrointestinal (Abdomen) normal bowel sounds, soft, nontender, no hepatosplenomegaly Musculoskeletal LLE: Well approximated BKA stump. No erythema. No drainage. Flap is soft. Skin no rashes, warm and dry Neurologic + abnormal touch/pain/proprioception Psychiatric Orientation: alert and oriented x 3 Lymphatic no cervical or axillary lymphadenopathy Discharge Data Allergies Allergy/AdvReac Type Severity Reaction Status Date / Time lorazepam AdvReac Confusion Verified 08/14/19 08:23 sacubitril [From Entresto] AdvReac problems Verified 08/14/19 08:23 with bp valsartan [From Entresto] AdvReac problems Verified 08/14/19 08:23 with bp Consultations 08/14/19 17:24 Consult Case Management - Discharge Planning Routine Consult Hospitalist Routine Procedures Performed Operation Date: 08/14/19 12:05 Actual Procedures p Left Below the Knee Amputation(Left) - Chuckie Guillermo DO Ordered Studies 08/14/19 11:32 US - OR guided needle placemen Routine Hospital Course (1) Status post below-knee amputation of left lower extremity: The patient was admitted on 08.14.2019 and underwent a left BKA. The goal through inpatient stay was pain control, continuing to monitor the BKA wound, and set up a probable SNF stay. He progressed well over the next 6 days. Once he was approved for a SNF, he was discharged on POD #6. POD #6 LEFT BKA Approved for SNF TEDS and SCDs daily dressing changes Ice/elvation Plan for dc today. Total Time Total Time Spent Total Time Spent (In Minutes): 90 Total Time Includes: Examination of the Patient, Discharge Planning, Medication Reconciliation and Communication With Other Providers Discharge Plan Discharge Items Patient Disposition: Transfer [facility] Reason For Visit: Osteomyelitis of Cancaneous Discharge Diagnosis: Osteomyelitis of Left Calcaneous Activity: Per Instructions section Weightbearing: Left non-weightbearing Non-emergency contact: Surgeon Call non-emergency contact if: your pain is not controlled, your temperature is above 101.5 and your wound has increased drainage Follow-up/Referrals: Christiano Alvarez MD [Primary Care Provider] - Diet: Carb Consistent or DM2 Addtl Attending Provider Instructions: Nonweightbearing Left Lower extremity Daily dressing changes. Keep stump elevated when at rest. Ice to LLE stump regularly if tolerated. Follow up with Dr. Guillermo in 10-14 days from the day of surgery. Pending Studies at Discharge: No Stand-Alone Forms: Flukle, Opioid Pain Management Skilled Items Patient informed of condition?: Yes DNR: No Discharge Level of Care: Skilled Communicable Disease: No Discharge Prognosis: Stable Lines: None Urinary Catheter: No Medications and DC Order Prescriptions: New sennosides [Senokot] 8.6 mg Tablet 17.2 mg PO HS 14 Days Qty: 28 RF: 0 acetaminophen 500 mg Tablet 1,000 mg PO Q8 14 Days Qty: 84 RF: 0 docusate sodium 100 mg Capsule 100 mg PO BID 10 Days Qty: 20 RF: 0 gabapentin 100 mg Capsule 200 mg PO TID 14 Days Qty: 84 RF: 0 oxycodone 5 mg Tablet 5 mg PO Q4H MDD 6 tabs PRN (Reason: pain) Qty: 18 RF: 0 insulin aspart U-100 [Novolog Flexpen U-100 Insulin] 100 unit/mL (3 mL) insulin pen 6 units SQ AC Qty: 15 RF: 0 Continued tamsulosin [Flomax] 0.4 mg capsule 0.4 mg PO HS Qty: 90 RF: 1 quetiapine 25 mg tablet 25 mg PO HS RF: 0 bumetanide 1 mg tablet 1 mg PO QAM Qty: 30 RF: 5 finasteride [Proscar] 5 mg tablet 5 mg PO QAM Qty: 90 RF: 3 ferrous sulfate 325 mg (65 mg iron) tablet,delayed release (DR/EC) 325 mg PO BIDM RF: 0 melatonin 5 mg Tablet 5 mg PO HS RF: 0 ascorbic acid (vitamin C) [Vitamin C] 500 mg Tablet 500 mg PO QAM RF: 0 levothyroxine [Synthroid] 25 mcg tablet 25 mcg PO QAM RF: 0 pantoprazole [Protonix] 40 mg tablet,delayed release (DR/EC) 40 mg PO BID RF: 0 multivitamin Tablet 1 tab PO DAILY RF: 0 Probiotic Acidophilus 1.5 mg (250 million cell) Capsule 10,000 mmu cells PO DAILY RF: 0 aspirin [Aspir-81] 81 mg Tablet,Delayed Release (Dr/Ec) 81 mg PO QAM RF: 0 cholecalciferol (vitamin D3) [Vitamin D3] 1,000 unit Tablet 2,000 unit PO QAM RF: 0 clopidogrel [Plavix] 75 mg tablet 75 mg PO QAM RF: 0 losartan 25 mg tablet 25 mg PO QAM RF: 0 metoprolol succinate 25 mg tablet extended release 24 hr 25 mg PO QAM RF: 0 Lantus Solostar U-100 Insulin 100 unit/mL (3 mL) insulin pen 13 units SQ HS RF: 0 Discontinued oxycodone 5 mg tablet 5 mg PO TID Qty: 90 RF: 0 gabapentin [Neurontin] 100 mg capsule 100 mg PO TID Qty: 90 RF: 6 Zerbaxa 1.5 gram recon soln 1.5 gm IV Q8H Qty: 10 RF: 0 Discharge Orders: Discharge Order (Routine); Ordered 08/20/19 Ordered By: Ildefonso Morocho/Other Patient Handouts: DVT Post Op Prevention, Diabetes Recreation Facility Attendant Complications, Understanding Carbohydrates Admission Data Admit Date/Time: 08/14/19 16:33 Attending Provider: Chuckie Guillermo Admit Provider: Chuckie Guillermo Primary Care Provider: Christiano Alvarez Other Providers: Daisha Boone ; Danielle Clay ; Ricky Cunningham ; Sushant Krishnamurthy ; Veena España ; Leno Stewart ; Omero Bryan ; Tai Burr ; Candi Dexter ; Wendy Duvall ; Bhargavi Manzo ; Prasanna Borjas ; Amy Aguilar ; Malik Fernandez ; Kirk Velez ; Daisha Marcus ; John Dey ; Winter Loredo ; Galina Crane ; Christiano Delgado ; Ricky Nguyen ; Yong Rodríguez ; Ana Maria Avina ; Juan Manning ; Reji Selby ; Joel Hinkle ; Hermes Morillo ; Wilson Gilbert ; Ellie Olmos ; Efren Mcdaniel ; [facility] ; [facility] ; [facility], ; [place] Other Interventions: Discharge Summary Assessment (RN) Last Done: 08/20/19 13:13 DC Date/Time DO NOT enter until pt leaves facility: 08/20/19 14:30
== END 2019-08-20 14:30 | DRG 240 ==
LOC: ASU 07:25 → 3N 16:33

== ENCOUNTER 2019-10-09 08:53 | Inpatient (IN) ==
--- NOTE | 2019-10-06 13:02 | Anesthesiology Consultation ---
Date of Service October 06, 2019 Assessment & Plan (1) Encounter for pre-operative examination: Known difficult intubation (see anesthesia hx for details). Medtronic AICD/pacer. Normal function at last check 04/2019. Check BSG AM DOS. Patient not reached for RN phone interview at time of chart clearance. Evaluation completed with information obtained from records. Please confirm meds/allergies/PMH AM DOS. Chart Review Chart Review: Acceptable Risk for Surgery and Patient NOT seen in Pre Admission Testing History Surgery Operation Date: 10/09/19 09:15 Proposed Procedures p Left Knee Irrigation and Debridement of Skin Fascia, Muscle Tendon, - Chuckie Guillermo DO s Possible Reviision Below Knee Amputation, Possible Implantation Stimulan Beads - Chuckie Guillermo DO Height/Weight Height: 5 ft 8 in Weight: 86.183 kg Allergies Allergy/AdvReac Type Severity Reaction Status Date / Time lorazepam AdvReac Confusion Verified 08/14/19 08:23 sacubitril [From Entresto] AdvReac problems Verified 08/14/19 08:23 with bp valsartan [From Entresto] AdvReac problems Verified 08/14/19 08:23 with bp Medications Home Medications Medication Instructions Recorded Confirmed Last Taken aspirin [Aspir-81] 81 mg PO QAM 12/01/18 08/14/19 08/14/19 04:00 cholecalciferol (vitamin D3) 2,000 unit PO QAM 12/01/18 08/05/19 07/30/19 08:00 [Vitamin D3] ascorbic acid (vitamin C) [Vitamin 500 mg PO QAM 03/23/19 08/05/19 07/30/19 08:00 C] melatonin 5 mg PO HS 03/23/19 08/14/19 08/13/19 20:00 tamsulosin 0.4 mg capsule 0.4 mg PO HS #90 cap 03/30/19 08/14/19 08/13/19 20:00 levothyroxine [Synthroid] 25 mcg PO QAM 04/10/19 08/14/19 08/14/19 04:00 pantoprazole [Protonix] 40 mg PO BID 04/10/19 08/14/19 08/14/19 04:00 clopidogrel [Plavix] 75 mg PO QAM 04/12/19 08/14/19 08/08/19 quetiapine 25 mg tablet 25 mg PO HS tab 04/22/19 08/14/19 08/13/19 20:00 ferrous sulfate 325 mg (65 mg 325 mg PO BIDM tab 04/27/19 08/14/19 08/13/19 20:00 iron) tablet,delayed release losartan 25 mg PO QAM 05/06/19 08/14/19 08/14/19 04:00 bumetanide 1 mg tablet 1 mg PO QAM #30 tab 06/24/19 08/14/19 08/14/19 04:00 finasteride 5 mg tablet 5 mg PO QAM #90 tab 06/25/19 08/14/19 08/13/19 20:00 Lantus Solostar U-100 Insulin 13 units SQ HS 07/24/19 08/14/19 07/29/19 08:00 metoprolol succinate 25 mg PO QAM 07/24/19 08/14/19 08/14/19 04:00 Probiotic Acidophilus 10,000 mmu cells PO DAILY 08/05/19 08/05/19 Unknown multivitamin 1 tab PO DAILY 08/05/19 08/05/19 Unknown insulin aspart U-100 [Novolog 6 units SQ AC #15 ml 08/20/19 Unknown Flexpen U-100 Insulin] oxycodone 5 mg PO Q4H PRN #18 tab MDD 6 tabs 08/20/19 Unknown Past Medical History Medical History (Updated 08/14/19 @ 18:13 by Bhargavi Manzo PA-C) Abscess in epidural space of lumbar spine RESOLVED PER PATIENT WITH SURGERIES BUT RESULTED IN NEUROGENIC BLADDER. Anemia Anxiety CAD (coronary artery disease) CABG x3 (approx 2000); cardiac arrest 2011 s/p cervical surgery; NSTEMI 07/2018 post op lumbar surgery Carotid artery stenosis CHF (congestive heart failure) Chronic kidney disease, stage III (moderate) Chronic osteomyelitis of ankle and foot Chronic sinusitis Clostridium difficile infection HAS CURRENTLY> currently taking Vancomyocin until 08/11/2019. BACON DE RINDER 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 Admitted [facility] 10/18/11 for onset of incapacitating cervical myelopathy. Spinal tap showed BACON DE RINDER Lyme disease, MRI showed severe spinal cord compression at C3-4 with myelomalacia and intramedullary mass. Pt had c-spine surgery, subsequent prolonged hospital admission, complicated post-op course- including cardiac arrest Depression Diabetic peripheral neuropathy Diabetic retinopathy Disc degeneration, lumbar Diverticulosis Dysphagia High cholesterol History of femoral angiogram adequate blood flow to foot History of non-ST elevation myocardial infarction (NSTEMI) 2000; 2018 HTN (hypertension) Hypothyroidism ICD (implantable cardioverter-defibrillator) in place [employer] > LAST CHECKED POSTOP AT [facility] AFTER 05/14/19 SX- FUNCTIONING APPROPRIATELY- NO REPORT AVAILABLE- MOST RECENT REPORT AVAILABLE FROM 04/2019 Ischemic cardiomyopathy EF on 04/2019 ECHO 30-35% Obstructive sleep apnea BiPap -- refuses to use. 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 Hollins- had post op respiratory failure requiring trach and subsequent cardiac arres requiring one shock V fib- AICD implanted Uncontrolled type 2 diabetes mellitus with retinopathy, with long-term current use of insulin Past Surgical History Surgical History (Updated 10/06/19 @ 13:30 by Lance Spear) Below-knee amputation of left lower extremity H/O cervical spine surgery ACDI C3-4, C7 corpectomy, removal of C7 intramedullary mass.> ROM IS OK PER PATIENT History of cardiac cath 07/2018 [facility]. Severe multivessel [place] coronary artery disease 99% subtotal occlusion in proximal ramus with distal NEMESIO I flow (thought to be acute culprit vessel) -100% chronic mid LAD occlusion Diffuse mid circumflex, 80% proximal OM 2 Sequential mid RCA 95, 90% stenosis 2. Widely patent DELATORRE to LAD. Patent FERNANDO to very small diffusely diseased acute marginal. Occluded radial graft to OM. Medical MGMT recommended. History of cataract extraction with lens replacement History of colonoscopy History of esophagogastroduodenoscopy (EGD) History of incision and drainage Lumbar spine on 08/11/18; complicated by difficult intubation with only #6.5 ETT able to be placed and patient kept intubated post op History of lumbar spinal fusion History of lumbar surgery 09/10/18 Glidescope 3 okay visualization but difficulty passing ETT, unable to pass 8.0, able to pass 7.0 with some difficulty History of tracheostomy CLOSED 8 YRS AGO Hx of foot surgery May 2019 TO TRY TO CLEAR CURRENT INFECTION TO FOOT Hx of tonsillectomy Hx of transurethral resection of prostate S/P PICC central line placement REPLACED AROUND 07/21/19 [facility] S/P triple vessel bypass [facility], 2002- (DELATORRE to LAD, FERNANDO to Acute Marginal, Radial Graft to OM) Status post below-knee amputation of left lower extremity Past Anesthesia History Difficult Airway I+D of Lumbar spine 08/13/18; complicated by difficult intubation with only #6.5 ETT able to be placed and patient kept intubated post op. "Pt had a difficult intubation in the OR with 3 attempts of intubation. 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 Unable to pass size #7.5 and #7.0 even with good view of VC using the glidescope for intubation (ETT would not advanced). ETT #6.5 was finally able to be placed through VC. In light of multiple intubation attempts with difficult placement of ETT and patient with h/o difficult intubation and multiple other comorbodities incuding CAD, ischemic CM and prior cardiac arrest, pt was not extubated at the end of urgent I&D of lumbar area. 8mg of IV decadron was given intraop to help with airway edema. Discussed case with Dr. Talbot, the cover inspector boot and saddle repair person, who accepted the patient for management. Pt was transported to ICU on the monitor with 100% FiO2. Vital signs stable not on any pressors. Pt was placed on the ventilator by RT." I+D of Lumbar spine 09/10/18; Glidescope 3; "failed to pass 8.0 tube, 7.0 with difficulty." Social History Smoking Status: Former smoker tobacco type: cigarettes and smokeless tobacco Hx Alcohol Use: No Alcohol type: beer alcohol intake frequency: holidays/special occasions only Hx Substance Use: No substance use type: does not use Testing Laboratory Results 08/15/19 WBC: 7.19 H/H: 9.3/28.5 *baseline Hgb ~9 PLATELETS: 183 SODIUM: 136 POTASSIUM: 4.1 CHLORIDE: 106 CO2: 24 BUN: 17 CREATININE: 0.95 GLUCOSE: 75 A1C (07/15/19) 6.0% Electrocardiogram Date: 06/19/19 Findings: + NSR @ (64bpm with 1st degree AV block.) RBBB with RVH. Chest X-Ray Date: 07/22/19 FINDINGS: Lung volumes are normal. Lungs are clear. There is no pneumothorax or pleural effusion. Mild cardiomegaly is unchanged. Mediastinal contours are normal. There is no evidence for pulmonary edema. Incidental note is made of a left subclavian pacer/AICD, multilevel fusion within the spine and median sternotomy wires and mediastinal surgical clips. IMPRESSION: No acute cardiopulmonary findings. No change in appearance of the chest. Echocardiogram Date: 05/08/19 EF: 30-35% Left ventricular systolic function is moderately reduced. There is moderate basal hypokinesis involving the inferior lateral and anterior segments. Calcified mitral apparatus. RVSP is elevated at 40 to 50 mmHg. Compared to an echocardiogram from 11/2018, the overall LV systolic function and wall motion is slightly improved. Stress Test Date: 07/02/18 Type: DSE Resting EF: 45-50% There were no ischemic changes suggested on dobutamine stress echo imaging at 94% MPHR. Negative dobutamine EKG for ischemia. Appropriate blood pressure response. No arrhythmia. Right-sided chest pain reported. Technically difficult study, enhanced with IV Definity. *subsequent cath as below Cardiac Catheterization Date: 07/27/18 1. Severe multivessel [place] coronary artery disease 99% subtotal occlusion in proximal ramus with distal NEMESIO I flow (thought to be acute culprit vessel) -100% chronic mid LAD occlusion Diffuse mid circumflex, 80% proximal OM 2 Sequential mid RCA 95, 90% stenosis 2. Widely patent DELATORRE to LAD. Patent FERNANDO to very small diffusely diseased acute marginal. Occluded radial graft to OM. Recommendations: Patient presently chest pain-free, hemodynamically and electrically stable with no evidence of heart failure. In the setting of recent spine surgery, acute blood loss anemia, PAULA recommend medical management of culprit ramus small vessel disease. 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
--- NOTE | 2019-10-08 14:25 | History & Physical Report ---
Date of Service October 08, 2019 Assessment & Plan (1) Wound dehiscence, surgical: Schedule Left Knee Irrigation and Debridement of Skin Fascia, Muscle Tendon of BKA stump,Possible Revision Below Knee Amputation, Possible Implantation Stimulan Beads for 10.09.2019. All potential risks, benefits, complications, alternatives, and rehab have been discussed with the patient and he wishes to proceed. The case was reviewed because of the Covid-19 and consider essential secondary to the increased morbidity of delaying the case and possible worsening of infection, sepsis, loss of limb, or . History of Present Illness Chief Complaint: left lower leg wound Primary Care Provider: Edd Alvarez MD This is a patient who had a left BKA done approximately 6 weeks ago. As his sutures were removed, the wound began to open. He was evaluated in the [facility] office after the wound dehiscence and is now being set up for surgical debridement. Allergies Allergy/AdvReac Type Severity Reaction Status Date / Time lorazepam AdvReac Confusion Verified 08/14/19 08:23 sacubitril [From Entresto] AdvReac problems Verified 08/14/19 08:23 with bp valsartan [From Entresto] AdvReac problems Verified 08/14/19 08:23 with bp Home Medications Home Medications Medication Instructions Recorded Confirmed Type aspirin [Aspir-81] 81 mg PO QAM 12/01/18 10/07/19 History cholecalciferol (vitamin D3) 2,000 unit PO QAM 12/01/18 10/07/19 History [Vitamin D3] ascorbic acid (vitamin C) [Vitamin 500 mg PO QAM 03/23/19 10/07/19 History C] melatonin 5 mg PO HS 03/23/19 10/07/19 History tamsulosin 0.4 mg capsule 0.4 mg PO HS #90 cap 03/30/19 10/07/19 Rx levothyroxine [Synthroid] 25 mcg PO QAM 04/10/19 10/07/19 History pantoprazole [Protonix] 40 mg PO BID 04/10/19 10/07/19 History clopidogrel [Plavix] 75 mg PO QAM 04/12/19 10/07/19 History quetiapine 25 mg tablet 25 mg PO HS tab 04/22/19 10/07/19 History ferrous sulfate 325 mg (65 mg 325 mg PO BIDM tab 04/27/19 10/07/19 History iron) tablet,delayed release losartan 25 mg PO QAM 05/06/19 10/07/19 History bumetanide 1 mg tablet 1 mg PO QAM #30 tab 06/24/19 10/07/19 Rx finasteride 5 mg tablet 5 mg PO QAM #90 tab 06/25/19 10/07/19 Rx Lantus Solostar U-100 Insulin 13 units SQ HS 07/24/19 10/07/19 History metoprolol succinate 25 mg PO QAM 07/24/19 10/07/19 History Probiotic Acidophilus 10,000 mmu cells PO DAILY 08/05/19 10/07/19 History multivitamin 1 tab PO DAILY 08/05/19 10/07/19 History insulin aspart U-100 [Novolog 6 units SQ AC #15 ml 08/20/19 10/07/19 Rx Flexpen U-100 Insulin] oxycodone 5 mg PO Q4H PRN #18 tab MDD 6 tabs 08/20/19 10/07/19 Rx acetaminophen [Tylenol Extra 1,000 mg PO TID 10/07/19 10/07/19 History Strength] citalopram [Celexa] 10 mg PO QAM 10/07/19 10/07/19 History docusate sodium [Colace] 100 mg PO BID 10/07/19 10/07/19 History fluticasone propionate [Flonase 1 spray INTRANASAL Q12H PRN 10/07/19 10/07/19 History Allergy Relief] gabapentin 100 mg PO TID 10/07/19 10/07/19 History menthol [Biofreeze (menthol)] 1 applic TOPICAL BID PRN 10/07/19 10/07/19 History atorvastatin 40 mg tablet mg PO .take 1 tablet by juan alberto 10/08/19 10/08/19 History coenzyme Q10 100 mg capsule mg PO .100mg po daily q am 10/08/19 10/08/19 History cyanocobalamin (vitamin B-12) mcg PO .TAKE 1 TABLET DAILY 10/08/19 10/08/19 History 1,000 mcg tablet magnesium oxide 400 mg (241.3 mg mg PO .Take 1 tablet daily 10/08/19 10/08/19 History magnesium) tablet metformin 500 mg tablet mg PO .TAKE 2 TABLET bid 10/08/19 10/08/19 History nystatin 100,000 unit/gram topical TOP 10/08/19 10/08/19 History ointment omega-3 fatty acids 1,000 mg 1,000 mg PO DAILY 10/08/19 10/08/19 History capsule Past Med/Surg History Medical History (Updated 10/08/19 @ 14:24 by Jeffery eRnee PA-C) Abscess in epidural space of lumbar spine RESOLVED PER PATIENT WITH SURGERIES BUT RESULTED IN NEUROGENIC BLADDER. Anemia Anxiety CAD (coronary artery disease) CABG x3 (approx 2000); cardiac arrest 2011 s/p cervical surgery; NSTEMI 07/2018 post op lumbar surgery Carotid artery stenosis CHF (congestive heart failure) Chronic kidney disease, stage III (moderate) Chronic osteomyelitis of ankle and foot Chronic sinusitis Clostridium difficile infection HAS CURRENTLY> currently taking Vancomyocin until 08/11/2019. 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 Admitted [facility] 10/18/11 for onset of incapacitating cervical myelopathy. Spinal tap showed SENIOR ENERGY MARKET COORDINATOR Lyme disease, MRI showed severe spinal cord compression at C3-4 with myelomalacia and intramedullary mass. Pt had c-spine surgery, subsequent prolonged hospital admission, complicated post-op course- including cardiac arrest Depression Diabetic peripheral neuropathy Diabetic retinopathy Disc degeneration, lumbar Diverticulosis Dysphagia High cholesterol History of femoral angiogram adequate blood flow to foot History of non-ST elevation myocardial infarction (NSTEMI) 2000; 2018 HTN (hypertension) Hypothyroidism ICD (implantable cardioverter-defibrillator) in place [employer] > LAST CHECKED POSTOP AT [facility] AFTER 05/14/19 SX- FUNCTIONING APPROPRIATELY- NO REPORT AVAILABLE- MOST RECENT REPORT AVAILABLE FROM 04/2019 Ischemic cardiomyopathy EF on 04/2019 ECHO 30-35% Obstructive sleep apnea BiPap -- refuses to use. 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 Severe multivessel jamul coronary artery disease 99% subtotal occlusion in proximal ramus with distal NEMESIO I flow (thought to be acute culprit vessel) -100% chronic mid LAD occlusion Diffuse mid circumflex, 80% proximal OM 2 Sequential mid RCA 95, 90% stenosis 2. Widely patent DELATORRE to LAD. Patent FERNANDO to very small diffusely diseased acute marginal. Occluded radial graft to OM. Medical MGMT recommended. History of cataract extraction with lens replacement History of colonoscopy History of esophagogastroduodenoscopy (EGD) History of incision and drainage Lumbar spine on 08/11/18; complicated by difficult intubation with only #6.5 ETT able to be placed and patient kept intubated post op History of lumbar spinal fusion History of lumbar surgery 09/10/18 Glidescope 3 okay visualization but difficulty passing ETT, unable to pass 8.0, able to pass 7.0 with some difficulty History of tracheostomy CLOSED 8 YRS AGO Hx of foot surgery ANTIMONY MAY 2019 TO TRY TO CLEAR CURRENT INFECTION TO FOOT Hx of tonsillectomy Hx of transurethral resection of prostate S/P PICC central line placement REPLACED AROUND 07/21/19 [facility] S/P triple vessel bypass [facility], 2002- (DELATORRE to LAD, FERNANDO to Acute Marginal, Radial Graft to OM) Status post below-knee amputation of left lower extremity Family History (Updated 10/08/19 @ 11:04 by Roula Yee MA) Mother , age 68 of COPD and respiratory issues COPD (chronic obstructive pulmonary disease) Father , in his 40s of an MT Myocardial infarction Family/Other Coronary heart disease Sister Other specified health status Other Diabetes Hypertension No pertinent family history Social History Preferred Language: Jordanian Communication Ability: Impaired Visual Impairment: No Limitations Hearing Ability: Normal 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 Beliefs That Will Affect Care: None marital status: Current Living Situation: Spouse Current Living Situation Comment: , son, dil 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al status: retired and disabled 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: 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 [employer] Other Information That Helps Us Care for You: No Feels Safe at Home: Yes Safety Concerns: Feels Safe At This Time Smoking Status: Former smoker Tobacco Type: cigarettes and smokeless tobacco ; Smoking End Date: QUIT 1 YEAR AGO ; Second Hand Exposure: No ; Tobacco Cessation Education Requested by Patient: No Hx Alcohol Use: No Hx Substance Use: No Physical Exam Constitutional: well developed and well nourished; no acute distress ENMT: external ear and nose normal, oropharynx normal Neck: trachea midline, no thyromegaly Respiratory: normal respiratory effort, lungs clear to auscultation Cardiovascular: Rate/Rhythm: regular rate and regular rhythm Gastrointestinal (Abdomen): normal bowel sounds, soft, nontender, no hepatosplenomegaly Musculoskeletal: Knee: + skin erythema (mild left BKA site) and + surgical incision (left BKA wound dehiscence) Neurologic: normal touch/pain/proprioception Psychiatric: A+Ox3, euthymic affect Lymphatic: no cervical or axillary lymphadenopathy
[2019-10-09] MEDS ORDERED: ASPIRIN 81 MG ECTAB PO ONE ×2 (09:27→09:29)
[2019-10-09] MEDS ORDERED: fentaNYL citrate 100 MCG/2 ML VIAL ONE ×3 (09:56→12:22)
[2019-10-09] MEDS ORDERED: LIDOCAINE HCL 2% 2 ML VIAL/AMP(20MG/ML) INFIL ONE (09:57)
[2019-10-09] MEDS ORDERED: PROPOFOL IV EMULSION 10 MG/ML 20 ML VIAL IV ONE (09:57)
[2019-10-09] MEDS ORDERED: ONDANSETRON INJ 2 MG/ML 2 ML VIAL ONE (09:57)
[2019-10-09] MEDS ORDERED: CEFAZOLIN 1000MG 1,000 MG/7.5 ML SYR IV SCH (10:00)
--- NOTE | 2019-10-09 10:06 | History & Physical Bridge Note ---
Date of Service October 09, 2019 History & Physical Bridge Note I have examined the patient, reviewed the History & Physical and in the interval since the performance of the History & Physical I have noted the following changes of clinical significance: no changes noted. All potential risks and benefits related to the patient's care were considered regarding the current Covid-19 pandemic. The patient's current condition is deemed as urgent necessitating surgery now and performing surgery at this time will prevent further morbidity and likely worsening of the patient's condition including further tissue necrosis, sepsis, DVT, PE, skin ulceration, osteomyelitis, loss of limb or loss of life. The patient will be scheduled for surgery now without any further waiting period as this condition is urgent and indicated.
[2019-10-09] MEDS ORDERED: VANCOMYCIN HCL 1000MG/20ML VIAL ONE (10:16)
[2019-10-09] MEDS ORDERED: GENTAMICIN SULFATE 40 MG/ML 2 ML VIAL ONE (10:16)
[2019-10-09] MEDS ORDERED: BACITRACIN INJ 50,000 UNIT VIAL ONE (10:16)
[2019-10-09] MEDS ORDERED: ePHEDrine sulfate 50 MG/ML SYR ONE (10:43)
[2019-10-09] MEDS ORDERED: PHENYLEPHRINE 100MCG/ML 5ML SYR ONE (10:43)
--- NOTE | 2019-10-09 11:46 | Post Operative Brief Note ---
Immediate Post Op Note v1 Date of Surgery October 09, 2019 Pre & Post Diagnosis Operation Date: 10/09/19 11:30 Pre-Op Diagnosis: Left below knee amputation wound dehiscence, peripheral vascular disease Post-Op Diagnosis: Left below knee amputation wound dehiscence 2 cm x 12 cm, peripheral vascular disease, tissue necrosis including skin/subcutaneous fat/fascia I identified the patient and participated in the time-out.: Yes Procedure Operation Date: 10/09/19 11:30 Actual Procedures p Left Irrigation and Debridement of Skin, Fascia, and Subcutaneous Fat, debridement muscle and Tendon, Debridement of tibial bone, primary closure of wound dehiscence over suction drain (Left) - Chuckie Guillermo DO Surgeon Chuckie Guillermo DO Motor Vehicle Emissions Inspector Jeffery Renee PA-C Estimated Blood Loss 2 Findings Consistent with Post-Op Diagnosis Specimens Aerobic anaerobic Gram stain tissue necrosis/subcutaneous fat deep left lower extremity Drains Rojas Catheter (patient came to OR with Rojas already in Place) and Hemovac Drain Anesthesia Type General Complications none Disposition Accompanied Patient To Recovery: No Disposition: Recovery Room
[2019-10-09] MEDS ORDERED: PROMETHAZINE HCL 6.25 MG in SODIUM CHLORIDE 0.9% 50 ML IV PRN (12:16)
[2019-10-09] MEDS ORDERED: ATROPINE SULFATE 0.1 MG/ML 10ML SYR IV PRN (12:16)
[2019-10-09] MEDS ORDERED: ePHEDrine sulfate 50 MG/ML AMP IV PRN (12:16)
[2019-10-09] MEDS ORDERED: ONDANSETRON INJ 2 MG/ML 2 ML VIAL IV PRN ×2 (12:16→13:38)
--- NOTE | 2019-10-09 12:17 | Anesthesiology Progress Note ---
Date of Service October 09, 2019 Anesthesia Post Procedure Vital Signs Vital Signs: Temp Pulse Resp BP Pulse Ox 10/09/19 09:23 37.1 C 62 20 110/55 L 99 Transfer of Care Handoff Completed per policy Notes Mental Status: alert / awake / arousable Patient Amnestic to Procedure: Yes Nausea / Vomiting: adequately controlled Pain: adequately controlled Airway Patency, RR, SpO2: stable & adequate BP & HR: stable & adequate Hydration State: stable & adequate Anesthetic Complications: no major complications apparent
[2019-10-09] MEDS: fentaNYL citrate 100 MCG/2 ML VIAL IV PRN ×2 (12:25→12:36)
--- NOTE | 2019-10-09 12:47 | Operative Report (OR) ---
DATE OF OPERATION: 10/09/2019 PREOPERATIVE DIAGNOSES: 1. Left below-knee amputation wound dehiscence 2 x 12 cm. 2. Peripheral vascular disease. 3. Tissue necrosis including skin, subcutaneous fat and fascia. POSTOPERATIVE DIAGNOSIS: 1. Left below-knee amputation wound dehiscence 2 x 12 cm. 2. Peripheral vascular disease. 3. Tissue necrosis including skin, subcutaneous fat and fascia. PROCEDURE: 1. Left lower extremity irrigation and debridement of skin, fascia, subcutaneous fat, muscle, tendon and tibial bone. 2. Primary closure over suction drain, left below-knee amputation. SURGEON: Chuckie Guillermo DO ELECTRICIAN YARD: Jeffery Renee PA-C who was present for patient positioning, sterile prep and drape, management of retractors and instruments. He was present through the critical portions of the case including wound closure, application of sterile dressing and transport of the patient to recovery. ANESTHESIA: General. SPECIMENS: Aerobic, anaerobic, Gram stain. DRAINS: Hemovac x1. COMPLICATIONS: None. BLOOD LOSS: 2 mL PERTINENT HISTORY: This is a 68-year-old gentleman who had undergone a below knee amputation due to deep bone infection involving the calcaneus. He attempted and failed several debridements. He had worsening osteomyelitis, sepsis and cellulitis involving the lower extremity and opted for a below knee amputation. He was progressing well until the last 2-3 weeks during the COVID-19 [id number] order and developed tissue necrosis at the suture line. Attempted conservative management, failed this. Was then seen in clinic and then scheduled for surgery as appropriate. All potential risks, benefits, complications, alternatives, rehab, potential for incomplete relief of symptoms, need for further surgery, DVT, PE, , persistent pain, swelling, scarring, weakness, neurovascular injury, wound complications, need for further surgery or debridement or further amputation was discussed with the patient. The patient decided to proceed with the procedure as indicated. The patient's care and case urgency was noted to be significant enough that he could not wait for any type of restrictions placed by the COVID-19 pandemic. Would need to proceed immediately and avoid risk of worsening sepsis, infection, osteomyelitis and possible amputation and . The patient agreed and proceeded as indicated. DESCRIPTION OF PROCEDURE: The patient was taken to the operative suite, placed supine on the operating room table. After review of consent and identification of proper operative site, the patient was anesthetized, LMA was placed. Tourniquet was placed high on the left lower extremity over cast padding. Left lower extremity was then sterilely prepped and draped in usual fashion, elevated and partially exsanguinated from the knee extending proximally with an Esmarch bandage, tourniquet inflated to 350 mmHg. Next, a 15 blade scalpel was used to sharply debride the necrotic and devitalized tissue at the suture line. This measured 2 x 12 cm involving skin, fascia and subcutaneous fat was then sharply debrided. Any necrotic tissue was then sharply excised with 15 blade scalpel. Next, there was noted to be several areas, particularly centrally at the fascia and the tendon, particularly the Achilles tendon was then sharply excised with 15 blade scalpel back to a more healthy appearing margin. Next, the distal anterior tibial bone was encountered. There did not appear to be any gross infection; however, this was then debrided with a rongeur and a rasp. Next, a deep tissue culture was performed, aerobic, anaerobic, Gram stain with a small sterile swab and then pulsatile lavage, 3 liters bacitracin with saline was then used to pulsatile lavage the distal lower extremity. Once cleansed 3-0 nylon sutures, combination of vertical mattress, horizontal mattress and simple sutures were used to reapproximate the tissue over a single 10-Welsh suction drain. Sterile compressive dressing was then applied consisting of Acticoat, sterile 4 x 4's, ABD pads, cast padding and Gigi wrap. The tourniquet was released. The patient was awakened and taken to recovery in stable condition. I attest to the content of the Intraoperative Record and any orders documented therein. Any exception s are noted below.
--- NOTE | 2019-10-09 13:17 | Anesthesiology Progress Note ---
Date of Service October 09, 2019 Anesthesia Post Procedure Vital Signs Vital Signs: Temp Pulse Pulse Resp BP Pulse Ox 10/09/19 12:55 36.2 C L 73 12 115/57 L 100 10/09/19 12:45 72 12 111/58 L 98 10/09/19 12:35 76 12 112/52 L 98 10/09/19 12:25 72 12 116/44 L 100 10/09/19 12:15 73 13 125/53 L 100 10/09/19 12:08 36.0 C L 73 12 113/55 L 100 10/09/19 09:23 37.1 C 62 20 110/55 L 99 Pain Intensity Left Upper Leg: Pain Intensity: 4 Transfer of Care Handoff Completed per policy Notes Mental Status: alert / awake / arousable and participated in evaluation Patient Amnestic to Procedure: Yes Nausea / Vomiting: adequately controlled Pain: adequately controlled Airway Patency, RR, SpO2: stable & adequate BP & HR: stable & adequate Hydration State: stable & adequate Anesthetic Complications: no major complications apparent and Pt Satisfied with anesthetic care
[2019-10-09] MEDS ORDERED: bisacodyL 10 MG SUPP PR PRN (13:38)
[2019-10-09] MEDS ORDERED: NALOXONE HCL 0.4 MG/1 ML VIAL/CARP IV PRN (13:38)
[2019-10-09] MEDS ORDERED: TRAMADOL HCL 50 MG TABLET PO PRN (13:38)
[2019-10-09] MEDS ORDERED: SENNA 8.6 MG TAB PO PRN (13:38)
[2019-10-09] MEDS ORDERED: METOCLOPRAMIDE HCL INJ 5 MG/ML 2 ML VIAL IV PRN (13:38)
[2019-10-09] MEDS ORDERED: SODIUM CHLORIDE 0.65% NA SOLN 45 ML (OCEAN) PRN (13:38)
[2019-10-09] MEDS ORDERED: MAGNESIUM HYDROXIDE SUSP 30 ML UDC PO PRN (13:38)
[2019-10-09] MEDS ORDERED: PHARMACY GLYCEMIC MGMT CONSULT PRN (13:46)
[2019-10-09] MEDS ORDERED: GLUCOSE 40% GEL 15 GM TUBE PO PRN (14:00)
[2019-10-09] MEDS ORDERED: CARBOHYDRATES FOR HYPOGLYCEMIA PO PRN (14:00)
[2019-10-09] MEDS ORDERED: GLUCAGON FOR INJ 1 MG VIAL IM PRN (14:00)
[2019-10-09] MEDS ORDERED: GLUCOSE 10 TABS/TUBE PO PRN (14:00)
[2019-10-09] MEDS ORDERED: DEXTROSE 50% 50 ML SYRINGE IV PRN (14:00)
[2019-10-09] MEDS: SODIUM CHLORIDE 0.9% 1000ML 1,000 ML IV SCH ×2 (14:23→23:59)
--- NOTE | 2019-10-09 14:29 | Hospitalist Consultation ---
Date of Consultation October 09, 2019 Assessment & Plan (1) Wound dehiscence, surgical: s/p left lower extremity irrigation and debridement of skin, fascia, subcutaneous fat, muscle, tendon and tibial bone and primary closure over suction drain performed by Dr Guillermo 10/09/19. Noted MRSA on prior micro wound specimen from 09/17/19 but no note attached to this. Will defer to surgical team regarding antibiotics if required to cover wound dehiscence as I have not evaluated this given post operative surgical bandages. (2) Type 2 diabetes mellitus: HbA1C 6.0 [07/2019] Pharmacy consult placed by primary team. Current glucose levels appear acceptable. (3) Diabetic peripheral neuropathy: Continue gabapentin 100mg TID (4) CAD (coronary artery disease): ASA, Plavix, Metoprolol succinate, losartan, unclear reason for no statin use at this time. (5) Chronic systolic heart failure: Continue BB + ARB Continue current bumex dosing as long as sBP > 90 (6) HTN (hypertension): Continue usual home meds (7) ICD (implantable cardioverter-defibrillator) in place: Noted (8) Hypothyroidism: TSH 4.24 [04/2019]. Continue levothyroxine 25 mcg PO daily. (9) Anemia: Normocytic anemia suspected to be of chronic disease and frequent lab draws given frequent hospitalizations. Repeat CBC, continue iron home supplementation (10) Lumbar stenosis with neurogenic claudication: Noted history of this (11) Obstructive sleep apnea: previous advised to wear BiPAP but intolerant with this (12) Neurogenic bladder: Suspect luna catheter is chronic based on prior notes. Will try to find out when this was last changed (usually changed once a month). (13) DVT prophylaxis: Will defer to primary team based upon surgical risk of bleeding. No contraindication of chemical prophylaxis noted from medical stand point. PT/OT/discharge planning as per primary orthopedics team History of Present Illness Reason for Consultation: Medical management Requesting Physician: Jeffery Renee PA-C Attending Physician: Chuckie Guillermo DO History of Present Illness Leandro Cooper is a 68 year old male with PMHx CAD s/p cabg x 3, ischemic cardiomyopathy, chronic systolic heart failure, s/p ICD in place, HTN, PAD, DM type II, CKD, anemia, BPH, lumbar spinal stenosis with neurogenic claudication, hypothyroidism, anxiety, depression, history of nonhealing left heel wound, recurrent osteomyelitis, multi-drug resistant pseudomonas and history of c. diff who presented for direct admission today under the care of Dr Guillermo for wound dehiscence and tissue necrosis s/p left below knee amputation on 08/14/2019 due to calcaneal osteomyelitis and peripheral vascular disease. Today he underwent left lower extremity irrigation and debridement of skin with primary closure over suction drain. Currently the patient is doing well post operatively. He has some burning sensation around the operation site which he was just about to receive pain medication when seen. He expresses that he is interested in [facility] for rehab as an inpatient. He reported the luna catheter was new this admission although previous hospital notes chronic indwelling luna catheter since Jul 2018 due to neurogenic bladder. Discharge summary from last admission notes no luna catheter. Unknown when this was last changed. Allergies Allergy/AdvReac Type Severity Reaction Status Date / Time lorazepam AdvReac Confusion Verified 10/09/19 09:08 sacubitril [From Entresto] AdvReac problems Verified 10/09/19 09:08 with bp valsartan [From Entresto] AdvReac problems Verified 10/09/19 09:08 with bp Home Medications Home Medications Medication Instructions Recorded Confirmed Type aspirin [Aspir-81] 81 mg PO QAM 12/01/18 10/09/19 History ascorbic acid (vitamin C) [Vitamin 500 mg PO QAM 03/23/19 10/09/19 History C] melatonin 5 mg PO HS 03/23/19 10/09/19 History tamsulosin 0.4 mg capsule 0.4 mg PO HS #90 cap 03/30/19 10/09/19 Rx levothyroxine [Synthroid] 25 mcg PO QAM 04/10/19 10/09/19 History pantoprazole [Protonix] 40 mg PO BID 04/10/19 10/09/19 History clopidogrel [Plavix] 75 mg PO QAM 04/12/19 10/07/19 History quetiapine 25 mg tablet 25 mg PO HS tab 04/22/19 10/07/19 History ferrous sulfate 325 mg (65 mg 325 mg PO BIDM tab 04/27/19 10/09/19 History iron) tablet,delayed release losartan 25 mg PO QAM 05/06/19 10/07/19 History bumetanide 1 mg tablet 1 mg PO QAM #30 tab 06/24/19 10/09/19 Rx finasteride 5 mg tablet 5 mg PO QAM #90 tab 06/25/19 10/09/19 Rx Lantus Solostar U-100 Insulin 13 units SQ HS 07/24/19 10/07/19 History metoprolol succinate 25 mg PO QAM 07/24/19 10/09/19 History Probiotic Acidophilus 10,000 mmu cells PO DAILY 08/05/19 10/09/19 History multivitamin 1 tab PO DAILY 08/05/19 10/09/19 History insulin aspart U-100 [Novolog 6 units SQ AC #15 ml 08/20/19 10/09/19 Rx Flexpen U-100 Insulin] oxycodone 5 mg PO Q4H PRN #18 tab MDD 6 tabs 08/20/19 10/07/19 Rx acetaminophen [Tylenol Extra 1,000 mg PO TID 10/07/19 10/07/19 History Strength] citalopram [Celexa] 10 mg PO QAM 10/07/19 10/09/19 History docusate sodium [Colace] 100 mg PO BID 10/07/19 10/09/19 History gabapentin 100 mg PO TID 10/07/19 10/09/19 History kkconfmv-qkigshq-tltolsp 24 g PO 10/09/19 History [Insta-Glucose (with dextrin)] glucagon (human recombinant) 1 mg 10/09/19 History [Glucagon Emergency Kit (human)] nitrofurantoin monohyd/m-cryst 100 mg PO BID 10/09/19 10/09/19 History [Macrobid] senna 17.2 mg PO BID PRN 10/09/19 10/09/19 History sodium chloride [Saline Nasal] 1 spray INTRANASAL BID PRN 10/09/19 10/09/19 History Patient History Medical History (Updated 10/09/19 @ 15:40 by Ricky Nguyen MD) Abscess in epidural space of lumbar spine RESOLVED PER PATIENT WITH SURGERIES BUT RESULTED IN NEUROGENIC BLADDER. Anemia Anxiety C. 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 Admitted [facility] 10/18/11 for onset of incapacitating cervical myelopathy. Spinal tap showed DIGITAL SERVICE ENGINEER Lyme disease, MRI showed severe spinal cord compression at C3-4 with myelomalacia and intramedullary mass. Pt had c-spine surgery, subsequent prolonged hospital admission, complicated post-op course- including cardiac arrest Depression Diabetic peripheral neuropathy Disc degeneration, lumbar Diverticulosis Dysphagia History of non-ST elevation myocardial infarction (NSTEMI) 2000; 2018 HTN (hypertension) Hypothyroidism ICD (implantable cardioverter-defibrillator) in place [employer] > LAST CHECKED POSTOP AT [facility] AFTER 05/14/19 SX- FUNCTIONING APPROPRIATELY- NO REPORT AVAILABLE- MOST RECENT REPORT AVAILABLE FROM 04/2019 Ischemic cardiomyopathy EF on 04/2019 ECHO 30-35% Klebsiella infection Cath associated UTI L3 vertebral fracture Lumbar stenosis with neurogenic claudication Neurogenic bladder Obstructive sleep apnea BiPap -- refuses to use. 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 Hollins- had post op respiratory failure requiring trach and subsequent cardiac arres requiring one shock V fib- AICD implanted Uncontrolled type 2 diabetes mellitus with retinopathy, with long-term current use of insulin UTI (urinary tract infection) fungal UTI, ID has started caspo, await final culture. continue zyvox as previously planned Surgical History (Updated 10/09/19 @ 15:27 by Ricky Nguyen MD) H/O cervical spine surgery ACDI C3-4, C7 corpectomy, removal of C7 intramedullary mass.> ROM IS OK PER PATIENT History of cardiac cath 07/2018 [facility]. Severe multivessel [place] coronary artery disease 99% subtotal occlusion in proximal ramus with distal NEMESIO I flow (thought to be acute culprit vessel) -100% chronic mid LAD occlusion Diffuse mid circumflex, 80% proximal OM 2 Sequential mid RCA 95, 90% stenosis 2. Widely patent DELATORRE to LAD. Patent FERNANDO to very small diffusely diseased acute marginal. Occluded radial graft to OM. Medical MGMT recommended. History of cataract extraction with lens replacement History of colonoscopy History of esophagogastroduodenoscopy (EGD) History of incision and drainage Lumbar spine on 08/11/18; complicated by difficult intubation with only #6.5 ETT able to be placed and patient kept intubated post op History of lumbar spinal fusion History of lumbar surgery 09/10/18 Glidescope 3 okay visualization but difficulty passing ETT, unable to pass 8.0, able to pass 7.0 with some difficulty History of tracheostomy CLOSED 8 YRS AGO Hx of foot surgery [facility] MAY 2019 TO TRY TO CLEAR CURRENT INFECTION TO FOOT Hx of tonsillectomy Hx of transurethral resection of prostate S/P PICC central line placement REPLACED AROUND 07/21/19 [facility] S/P [place] [facility] [place] (DELATORRE to LAD, FERNANDO to Acute Marginal, Radial Graft to OM) Status post below-knee amputation of left lower extremity 08/14/19 [Dr Guillermo] Social History Preferred Language: Maltese Communication Ability: Effective Visual Impairment: No Limitations Hearing Ability: Normal Consumer Relations Specialist Required: No Beliefs That Will Affect Care: None marital status: Current Living Situation: Spouse Current Living Situation Comment: , son, dil 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al status: retired and disabled 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: 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 [employer] Other Information That Helps Us Care for You: No Feels Safe at Home: Yes Safety Concerns: Feels Safe At This Time Smoking Status: Former smoker Tobacco Type: cigarettes and smokeless tobacco ; Smoking End Date: QUIT 1 YEAR AGO ; Second Hand Exposure: No ; Tobacco Cessation Education Requested by Patient: No Hx Alcohol Use: No Hx Substance Use: No Review of Systems Review of Systems: All systems reviewed & are unremarkable except as noted in HPI & below Physical Exam Constitutional: well developed and well nourished; no acute distress Eyes: + anicteric sclerae; normal pupil size mild drooping of left eyelid (patient reports chronic) ENMT: external ear and nose normal, oropharynx normal Neck: normal visual inspection and trachea midline Respiratory: normal respiratory effort, lungs clear to auscultation Cardiovascular: Rate/Rhythm: regular rate and regular rhythm Heart Sounds: no murmur Vessels: no JVD Extremities: normal capillary refill Gastrointestinal (Abdomen): normal bowel sounds, soft, nontender, no hepatosplenomegaly Musculoskeletal: Extremities: + amputation noted (left below knee in banadage (not removed) surgical drain noted) Skin: Peeling of skin on right foot Neurologic: moves all extremities and awake; no focal motor deficits Speech / Cognition: normal speech Psychiatric: A+Ox3, euthymic affect Results & Data Results & Data ([facility]) Vital Signs (Past 12 Hours) Vital Signs Temp Pulse Pulse Pulse Resp BP Pulse Ox 10/09/19 13:54 36.9 C 70 16 103/57 L 100 10/09/19 13:25 36.9 C 72 16 113/64 97 10/09/19 12:55 36.2 C L 73 12 115/57 L 100 10/09/19 12:45 72 12 111/58 L 98 10/09/19 12:35 76 12 112/52 L 98 10/09/19 12:25 72 12 116/44 L 100 10/09/19 12:15 73 13 125/53 L 100 10/09/19 12:08 36.0 C L 73 12 113/55 L 100 10/09/19 09:23 37.1 C 62 20 110/55 L 99 PG Care Time/CCT Total # of Minutes Spent Total Time Spent with Patient: Total time spent is greater than 50% in coordination of care (as documented) at patient's floor/unit and/or counseling patient: Coding Level of Care Code 21840 Inpt Consult Level 3 Diagnoses Wound dehiscence, surgical T81.31XA Encounter type: initial encounter Type 2 diabetes mellitus E11.52; Z79.4 Diabetes mellitus complication detail: with peripheral angiopathy with gangrene Diabetes mellitus complication status: with circulatory complication 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 transplanted heart: [place] heart Chronic systolic heart failure I50.22 HTN (hypertension) I10 Hypertension type: essential hypertension ICD (implantable cardioverter-defibrillator) in place Z95.810 Hypothyroidism E03.9 Hypothyroidism type: acquired Anemia D63.8 Anemia type: other cause Other causes of anemia: chronic disease, other Lumbar stenosis with neurogenic claudication M48.062 Obstructive sleep apnea G47.33 Neurogenic bladder N31.9 DVT prophylaxis Z29.9 (1) Type 2 diabetes mellitus Diabetes mellitus complication detail: with peripheral angiopathy with gangrene Diabetes mellitus complication status: with circulatory complication Diabetes mellitus jail insulin use: with termite control service representative use Qualified Code(s): E11.52 - Type 2 diabetes mellitus with diabetic peripheral angiopathy with gangrene; Z79.4 - penitentiary (current) use of insulin (2) CAD (coronary artery disease) Associated angina: without angina Coronary Disease-Associated Artery/Lesion type: [place] artery [place] vs. transplanted heart: [place] heart Qualified Code(s): I25.10 - Atherosclerotic heart disease of [place] coronary artery without angina pectoris (3) Anemia Anemia type: other cause Other causes of anemia: chronic disease, other Qualified Code(s): D63.8 - Anemia in other chronic diseases classified elsewhere (4) Hypothyroidism Hypothyroidism type: acquired Qualified Code(s): E03.9 - Hypothyroidism, unspecified (5) Wound dehiscence, surgical Encounter type: initial encounter Qualified Code(s): T81.31XA - Disruption of external operation (surgical) wound, not elsewhere classified, initial encounter (6) HTN (hypertension) Hypertension type: essential hypertension Qualified Code(s): I10 - Essential (primary) hypertension
[2019-10-09] MEDS: ACETAMINOPHEN 500 MG TAB PO SCH ×2 (14:30→19:41)
--- NOTE | 2019-10-09 14:45 | Pharmacy Report ---
Glycemic Control Consultation - Date of Service October 09, 2019 - Scope Scope: Glycemic Pharmacist consulted for glycemic control and to write orders per [facility] inpatient glycemic control protocol. - Objective Weight: 76.9 kg Accuchecks BSG (last 24hrs): 10/09/19 10/09/19 09:15 12:10 POC Glucose 140 H 137 H - Recent Pertinent Medications Outpatient Anti-diabetic Regimen: * Lantus 13 units HS, Aspart 6 units AC * A1c = 6 % 07/2019 Risk Factors for Insulin Resistance: * Recent Surgery * Diet: yes - Assessment & Plan Assessment & Plan: ASSESSMENT: * 68 year old male now s/p L knee I&D. Pharmacy consulted for glycemic management * No steroids received in OR - will continue home regimen, but scale back slightly due to decreased PO intake PLAN FOR INPATIENT GLYCEMIC CONTROL: * Basal insulin * Lantus 10-13 units per scale HS - see MAR for details * Bolus insulin * NovoLog per scale ACHS or Q6hrs while NPO * Goal Range: Low 110 mg/dL - High 140 mg/dL * Correction Factor: 30 mg/dL/unit * Nutritional / Prandial insulin per carb ratio of 1 unit per 8 grams CHO consumed * Please note that the plan above was derived based on current level of insulin resistance and hospital stress. These recommendations are appropriate for inpatient admission only. Plan of care upon discharge will need to be reassessed to avoid potential outpatient hypo/hyperglycemia. Thank you.
[2019-10-09] MEDS: GABAPENTIN 100 MG CAP PO SCH ×2 (15:06→19:37)
[2019-10-09 15:09] LABS: Hematocrit (blood only) 32.4 % (42-52); Hemoglobin 10.4 g/dL (14.0-18.0); Mean Corpuscular Hemoglobin 30.3 pg (25-34); Mean Corpuscular Hgb Conc 32.1 g/dL (32-36); Mean Corpuscular Volume 94.5 fL (80-100); Mean Platelet Volume 10.1 fL (7.4-10.4); Platelet Count 146 K/uL (130-400); RDW Coefficient of Variation 16.3 % (11.5-14.5); RDW Standard Deviation 56.7 fL (36.4-46.3); Red Blood Count 3.43 M/uL (4.7-6.1); White Blood Count 7.54 K/uL (4.8-10.8)
[2019-10-09 15:22] LABS: BUN Creatinine Ratio 36.1 (10-20); Creatinine Clr Calc Pharmacy 50.2 ml/min; Est GFR (African American) 60.3; Potassium 4.4 mmol/L (3.5-5.1)
[2019-10-09] MEDS: INSULIN ASPART 100 UNITS/ML 3 ML PEN SQ SCH ×2 (17:31→21:00)
[2019-10-09] MEDS: FERROUS SULFATE 325 MG TAB PO SCH (17:31)
[2019-10-09] MEDS: CEFAZOLIN 1000MG 1,000 MG/7.5 ML SYR IV SCH (17:50)
[2019-10-09] MEDS: DOCUSATE SODIUM 100 MG CAP PO SCH (19:34)
[2019-10-09] MEDS: TAMSULOSIN HCL 0.4 MG CAP PO SCH (19:35)
[2019-10-09] MEDS: NITROFURANTOIN MONOHYDRATE 100 MG CAP PO SCH (19:35)
[2019-10-09] MEDS: MELATONIN 3 MG TAB PO SCH (19:36)
[2019-10-09] MEDS: PANTOprazole 40 MG TAB PO SCH (19:38)
[2019-10-09] MEDS: SENNA 8.6 MG TAB PO SCH (19:40)
[2019-10-09] MEDS: QUETIAPINE FUMARATE 25 MG TABLET PO SCH (19:41)
[2019-10-09] MEDS: INSULIN GLARGINE SOLOSTAR 100 UNITS/ML 3 ML PEN SQ SCH (20:59)
[2019-10-09] MEDS ORDERED: DOCUSATE SODIUM 100 MG CAP PO SCH (21:00)
[2019-10-10] MEDS: CEFAZOLIN 1000MG 1,000 MG/7.5 ML SYR IV SCH (02:22)
[2019-10-10 05:09] LABS: Hemoglobin 9.3 g/dL (14.0-18.0); Mean Corpuscular Hemoglobin 30.6 pg (25-34); Mean Corpuscular Hgb Conc 32.1 g/dL (32-36); Mean Corpuscular Volume 95.4 fL (80-100); Mean Platelet Volume 9.7 fL (7.4-10.4); Platelet Count 136 K/uL (130-400); RDW Coefficient of Variation 16.1 % (11.5-14.5); RDW Standard Deviation 56.9 fL (36.4-46.3); Red Blood Count 3.04 M/uL (4.7-6.1); White Blood Count 5.94 K/uL (4.8-10.8)
[2019-10-10 05:35] LABS: BUN Creatinine Ratio 35.1 (10-20); Calcium 8.3 mg/dl (8.5-10.1); Creatinine Clr Calc Pharmacy 57.6 ml/min; Est GFR (African American) 71.2; Est GFR (Non-African American) 61.4; Potassium 4.3 mmol/L (3.5-5.1)
[2019-10-10] MEDS: LEVOTHYROXINE SODIUM 25 MCG TABLET PO SCH (06:32)
--- NOTE | 2019-10-10 08:10 | Orthopedic Progress Note ---
Date of Service October 10, 2019 Assessment & Plan (1) Wound dehiscence, surgical: POD #1 s/p Left Knee Irrigation and Debridement of Skin, Fascia, and Subcutaneous Fat, Muscle and Tendon, Debridement of bone NWB left leg will change dressing tomorrow am pain control Admission and Anticipated Discharge Date Admission Date: October 09, 2019 Subjective POD #1 s/p Left Knee Irrigation and Debridement of Skin, Fascia, and Subcutaneous Fat, Muscle and Tendon, Debridement of bone Review of Systems Constitutional: no fever and no chills Cardiovascular: no chest pain and no dyspnea Gastrointestinal: no abdominal pain, no nausea and no vomiting Physical Exam Physical Exam: Vital Signs Temp 36.2 C L 10/10/19 07:51 Pulse 58 L 10/10/19 07:51 Resp 16 10/10/19 07:51 BP 111/64 10/10/19 07:51 Pulse Ox 100 10/10/19 07:51 Intake & Output 10/09/19 10/10/19 10/10/19 18:59 06:59 18:59 Intake Total 600 / 2780 2180 / 2780 Output Total 152 / 1302 1150 / 1302 Balance 448 / 1478 1030 / 1478 Weight 76.9 kg Intake: IV 0 / 1555 1555 / 1555 Lr 1,000 ml @ 15 mls/hr IV . 0 / 0 Q24H KAYLYNN Rx#:[id number] Nss 1000ML 1,0 00 ml @ 100 mls/ 1555 / 1555 hr IV .Q10H SC H Rx#:[id number] IV Perioperative 600 / 600 Oral 625 / 625 Output: Estimated Blood Loss 2 / 2 Urine Amount (Ca theter) 150 / 1300 1150 / 1300 Rojas/Indwelli ng 150 / 1300 1150 / 1300 Drain Output 0 / 0 0 / 0 Left Upper Kne e 0 / 0 0 / 0 Constitutional: WD/WN, vitals as above no acute distress Musculoskeletal: leg leg: KACEY wrap in place, no drainage noted onto the bandage, his thigh is soft and non-tender Vital Signs Temp 36.2 C L 10/10/19 07:51 Pulse 58 L 10/10/19 07:51 Resp 16 10/10/19 07:51 BP 111/64 10/10/19 07:51 Pulse Ox 100 10/10/19 07:51 Intake & Output 10/09/19 10/10/19 10/10/19 18:59 06:59 18:59 Intake Total 600 / 2780 2180 / 2780 Output Total 152 / 1302 1150 / 1302 Balance 448 / 1478 1030 / 1478 Weight 76.9 kg Intake: IV 0 / 1555 1555 / 1555 Lr 1,000 ml @ 15 mls/hr IV . 0 / 0 Q24H KAYLYNN Rx#:[id number] Nss 1000ML 1,0 00 ml @ 100 mls/ 1555 / 1555 hr IV .Q10H SC H Rx#:[id number] IV Perioperative 600 / 600 Oral 625 / 625 Output: Estimated Blood Loss 2 / 2 Urine Amount (Ca theter) 150 / 1300 1150 / 1300 Rojas/Indwelli ng 150 / 1300 1150 / 1300 Drain Output 0 / 0 0 / 0 Left Upper Kne e 0 / 0 0 / 0 Results & Data ([facility]) Vital Signs (Past 12 Hours) Vital Signs Temp Pulse Resp BP BP Pulse Ox 10/10/19 07:51 36.2 C L 58 L 16 111/64 100 10/10/19 03:47 36.4 C L 52 L 16 104/62 99 10/09/19 23:32 36.6 C 55 L 16 121/68 100 (1) Wound dehiscence, surgical Encounter type: initial encounter Qualified Code(s): T81.31XA - Disruption of external operation (surgical) wound, not elsewhere classified, initial encounter
[2019-10-10] MEDS: ACETAMINOPHEN 500 MG TAB PO SCH ×3 (08:44→20:41)
[2019-10-10] MEDS: INSULIN ASPART 100 UNITS/ML 3 ML PEN SQ SCH ×4 (08:44→20:49)
[2019-10-10] MEDS: METOPROLOL SUCC 25MG EXT REL TAB PO SCH (08:49)
[2019-10-10] MEDS: PANTOprazole 40 MG TAB PO SCH ×2 (08:49→20:39)
[2019-10-10] MEDS: CITALOPRAM 20 MG TAB PO SCH (08:49)
[2019-10-10] MEDS: CLOPIDOGREL BISULFATE 75 MG TAB PO SCH (08:49)
[2019-10-10] MEDS: GABAPENTIN 100 MG CAP PO SCH ×3 (08:49→20:39)
[2019-10-10] MEDS: FERROUS SULFATE 325 MG TAB PO SCH ×2 (08:49→17:47)
[2019-10-10] MEDS: MULTIVITAMIN TAB PO SCH (08:50)
[2019-10-10] MEDS: BUMETANIDE 1 MG TAB PO SCH (08:50)
[2019-10-10] MEDS: ASCORBIC ACID 500 MG TAB PO SCH (08:50)
[2019-10-10] MEDS: FINASTERIDE 5 MG TAB PO SCH (08:50)
[2019-10-10] MEDS: LACTOBACILLUS ACIDOPHILUS (FLORANEX) TAB PO SCH (08:50)
[2019-10-10] MEDS: NITROFURANTOIN MONOHYDRATE 100 MG CAP PO SCH ×2 (08:50→20:45)
[2019-10-10] MEDS: DOCUSATE SODIUM 100 MG CAP PO SCH ×2 (08:50→20:36)
[2019-10-10] MEDS: ASPIRIN 81 MG ECTAB PO SCH (08:50)
[2019-10-10] MEDS: LOSARTAN POTASSIUM 25 MG TAB PO SCH (08:50)
[2019-10-10] MEDS ORDERED: MULTIVITAMIN TAB PO SCH (09:00)
--- NOTE | 2019-10-10 09:14 | Pharmacy Report ---
Pharmacy Glycemic Short Note 2 - Date of Service October 10, 2019 - Glycemic Short BSG Results (Last 24 hours): 10/09/19 10/09/19 10/09/19 09:15 12:10 14:46 Glucose 109 H POC Glucose 140 H 137 H 10/09/19 10/09/19 10/10/19 17:07 20:57 04:51 Glucose 70 POC Glucose 98 122 H 10/10/19 07:55 Glucose POC Glucose 76 OUTPATIENT ANTIDIABETIC REGIMEN: * Lantus 13 units HS, Aspart 6 units AC ASSESSMENT: * POD1 L Knee I&D * Blood sugars ranging 76-140mg/dl over past 24 hours * Fasting blood sugar 76mg/dl - will decrease Lantus dose to prevent hypoglycemia. * No other changes needed at this time PLAN FOR INPATIENT GLYCEMIC CONTROL: * Basal insulin - decrease * Lantus SQ HS * BSG 180mg/dl or less - 5 units * BSG > 180mg/dl - 10 units * Bolus insulin * NovoLog per scale ACHS or Q6hrs while NPO * Goal Range: Low 110 mg/dL - High 140 mg/dL * Correction Factor: 30 mg/dL/unit * Nutritional / Prandial insulin per carb ratio of 1 unit per 8 grams CHO consumed PLAN FOR DISCHARGE: A1c 6.0% * Continue outpatient regimen
--- NOTE | 2019-10-10 13:11 | Anesthesiology Progress Note ---
Date of Service October 10, 2019 Anesthesia Post Procedure Vital Signs Vital Signs: Temp Pulse Resp BP BP Pulse Ox 10/10/19 08:49 36.7 C 63 10/10/19 07:51 36.2 C L 58 L 16 111/64 100 10/10/19 03:47 36.4 C L 52 L 16 104/62 99 10/09/19 23:32 36.6 C 55 L 16 121/68 100 10/09/19 20:00 36.6 C 66 16 120/70 99 10/09/19 16:24 36.7 C 65 16 113/67 98 10/09/19 15:18 36.7 C 65 16 126/75 100 10/09/19 14:25 67 18 124/61 100 10/09/19 13:54 36.9 C 70 16 103/57 L 100 10/09/19 13:25 36.9 C 72 16 113/64 97 Pain Intensity Left Upper Leg: Pain Intensity: 5 Transfer of Care Handoff Completed per policy Notes Mental Status: alert / awake / arousable and participated in evaluation Patient Amnestic to Procedure: Yes Nausea / Vomiting: adequately controlled Pain: adequately controlled Airway Patency, RR, SpO2: stable & adequate BP & HR: stable & adequate Hydration State: stable & adequate Anesthetic Complications: no major complications apparent and Pt Satisfied with anesthetic care
[2019-10-10] MEDS: OXYCODONE HCL IR 5 MG TAB (IMMEDIATE RELEASE) PO PRN ×2 (15:15→20:36)
--- NOTE | 2019-10-10 15:56 | Hospitalist Progress Note ---
Date of Service October 10, 2019 Assessment & Plan (1) Wound dehiscence, surgical: s/p OR. per ortho micro pending (2) Type 2 diabetes mellitus: HbA1C 6.0 [07/2019] pharmacy consult in place Current glucose levels are acceptable. (3) Diabetic peripheral neuropathy: Continue gabapentin 100mg TID, if burning at op site continues can increase (4) CAD (coronary artery disease): clinically stable no sx ASA, Plavix, Metoprolol succinate, losartan, unclear reason for no statin use at this time - outpatient follow up. (5) Chronic systolic heart failure: no sob overall appears euvolemic Continue BB + ARB Continue current bumex dosing as long as sBP > 90 (6) HTN (hypertension): Continue usual home meds - BP reasonable (7) ICD (implantable cardioverter-defibrillator) in place: Noted (8) Hypothyroidism: TSH 4.24 [04/2019]. Continue levothyroxine 25 mcg PO daily. (9) Anemia: Normocytic anemia suspected to be of chronic disease and frequent lab draws given frequent hospitalizations. continue iron follow periodic CBC (10) Lumbar stenosis with neurogenic claudication: Noted history of this (11) Obstructive sleep apnea: previous advised to wear BiPAP but intolerant with this (12) Neurogenic bladder: Suspect luna catheter is chronic based on prior notes. Will try to find out when this was last changed (usually changed once a month). (13) DVT prophylaxis: Will defer to primary team based upon surgical risk of bleeding. No contraindication of chemical prophylaxis noted from medical stand point. PT/OT/discharge planning as per primary orthopedics team Admission and Anticipated Discharge Date Admission Date: October 09, 2019 Subjective a little bit of burning at op site but pain reasonable no cp no sob no cough no sob no f/c/s feels like he's overall doing well Review of Systems Review of Systems: All systems reviewed & are unremarkable except as noted in HPI & below Physical Exam Physical Exam: gen aao pleasant nad heent nc at mmm breating unlabored no accessory muscles good effort skin no rashes no pallor or icterus Results & Data Results & Data ([facility] [place]) Vital Signs (Past 12 Hours) Vital Signs Temp Pulse Resp BP Pulse Ox 10/10/19 15:10 97.9 F 59 L 16 112/63 100 10/10/19 08:49 98.1 F 63 10/10/19 07:51 97.2 F L 58 L 16 111/64 100 PG Care Time/CCT Total # of Minutes Spent Total Time Spent with Patient: Total time spent is greater than 50% in coordination of care (as documented) at patient's floor/unit and/or counseling patient: Coding Level of Care Code 46471 Subseq Hosp Care Lvl 3 Diagnoses Wound dehiscence, surgical T81.31XA Encounter type: initial encounter Type 2 diabetes mellitus E11.52; Z79.4 Diabetes mellitus senior care insulin use: with technician terminal and repeater use Diabetes mellitus complication status: with circulatory complication Diabetes mellitus complication detail: with peripheral angiopathy with gangrene Diabetic peripheral neuropathy E11.42 CAD (coronary artery disease) I25.10 Coronary Disease-Associated Artery/Lesion type: [place] artery [place] vs. transplanted heart: [place] heart Associated angina: without angina Chronic systolic heart failure I50.22 HTN (hypertension) I10 Hypertension type: essential hypertension ICD (implantable cardioverter-defibrillator) in place Z95.810 Hypothyroidism E03.9 Hypothyroidism type: acquired Anemia D63.8 Anemia type: other cause Other causes of anemia: chronic disease, other Lumbar stenosis with neurogenic claudication M48.062 Obstructive sleep apnea G47.33 Neurogenic bladder N31.9 DVT prophylaxis Z29.9 (1) Wound dehiscence, surgical Encounter type: initial encounter Qualified Code(s): T81.31XA - Disruption of external operation (surgical) wound, not elsewhere classified, initial encounter (2) Type 2 diabetes mellitus Diabetes mellitus technician terminal and repeater insulin use: with technician terminal and repeater use Diabetes mellitus complication status: with circulatory complication Diabetes mellitus complication detail: with peripheral angiopathy with gangrene Qualified Code(s): E11.52 - Type 2 diabetes mellitus with diabetic peripheral angiopathy with gangrene; Z79.4 - long-term (current) use of insulin (3) CAD (coronary artery disease) Coronary Disease-Associated Artery/Lesion type: [place] artery [place] vs. transplanted heart: [place] heart Associated angina: without angina Qualified Code(s): I25.10 - Atherosclerotic heart disease of [place] coronary artery without angina pectoris (4) HTN (hypertension) Hypertension type: essential hypertension Qualified Code(s): I10 - Essential (primary) hypertension (5) Hypothyroidism Hypothyroidism type: acquired Qualified Code(s): E03.9 - Hypothyroidism, unspecified (6) Anemia Anemia type: other cause Other causes of anemia: chronic disease, other Qualified Code(s): D63.8 - Anemia in other chronic diseases classified elsewhere
[2019-10-10] MEDS: TAMSULOSIN HCL 0.4 MG CAP PO SCH (20:37)
[2019-10-10] MEDS: MELATONIN 3 MG TAB PO SCH (20:37)
[2019-10-10] MEDS: QUETIAPINE FUMARATE 25 MG TABLET PO SCH (20:39)
[2019-10-10] MEDS: SENNA 8.6 MG TAB PO SCH (20:40)
[2019-10-10] MEDS: INSULIN GLARGINE SOLOSTAR 100 UNITS/ML 3 ML PEN SQ SCH (20:51)
[2019-10-11] MEDS: LEVOTHYROXINE SODIUM 25 MCG TABLET PO SCH (05:34)
--- NOTE | 2019-10-11 06:19 | Orthopedic Progress Note ---
Date of Service October 11, 2019 Assessment & Plan (1) Wound dehiscence, surgical: POD #2 s/p Left Knee Irrigation and Debridement of Skin, Fascia, and Subcutaneous Fat, Muscle and Tendon, Debridement of bone NWB left leg Dressing changed this am awaiting OR cultures pain currently well controlled. Admission and Anticipated Discharge Date Admission Date: October 09, 2019 Subjective POD #2 denies CP, SOB Denies Fever/chills Physical Exam Physical Exam: Vital Signs Temp 36.2 C L 10/10/19 07:51 Pulse 58 L 10/10/19 07:51 Resp 16 10/10/19 07:51 BP 111/64 10/10/19 07:51 Pulse Ox 100 10/10/19 07:51 Intake & Output 10/09/19 10/10/19 10/10/19 18:59 06:59 18:59 Intake Total 600 / 2780 2180 / 2780 Output Total 152 / 1302 1150 / 1302 Balance 448 / 1478 1030 / 1478 Weight 76.9 kg Intake: IV 0 / 1555 1555 / 1555 Lr 1,000 ml @ 15 mls/hr IV . 0 / 0 Q24H KAYLYNN Rx#:[id number] Nss 1000ML 1,0 00 ml @ 100 mls/ 1555 / 1555 hr IV .Q10H SC H Rx#:[id number] IV Perioperative 600 / 600 Oral 625 / 625 Output: Estimated Blood Loss 2 / 2 Urine Amount (Ca theter) 150 / 1300 1150 / 1300 Rojas/Indwelli ng 150 / 1300 1150 / 1300 Drain Output 0 / 0 0 / 0 Left Upper Kne e 0 / 0 0 / 0 Constitutional: WD/WN, vitals as above no acute distress Musculoskeletal: incision is clean and dry, no active drainage. thigh is soft nontender. Results & Data ([facility]) Vital Signs (Past 12 Hours) Vital Signs Temp Pulse Resp BP Pulse Ox 10/10/19 23:34 36.7 C 59 L 14 96/60 L 97 (1) Wound dehiscence, surgical Encounter type: initial encounter Qualified Code(s): T81.31XA - Disruption of external operation (surgical) wound, not elsewhere classified, initial encounter
--- NOTE | 2019-10-11 08:17 | Pharmacy Report ---
Pharmacy Glycemic Short Note 2 - Date of Service October 11, 2019 - Glycemic Short BSG Results (Last 24 hours): 10/10/19 10/10/19 10/10/19 12:10 17:01 20:36 POC Glucose 97 88 85 10/11/19 07:58 POC Glucose 85 OUTPATIENT ANTIDIABETIC REGIMEN: * Lantus 13 units HS, Aspart 6 units AC ASSESSMENT: 10/11/19 * POD 2, blood sugars ranging 70-97mg/dl over past 24 hours * Lantus reduced last night, fasting 85mg/dl today, will continue at just 5 units SQ HS * Will loosen CR to prevent hypoglycemia 10/10/19 * POD1 L Knee I&D * Blood sugars ranging 76-140mg/dl over past 24 hours * Fasting blood sugar 76mg/dl - will decrease Lantus dose to prevent hypoglycemia. * No other changes needed at this time PLAN FOR INPATIENT GLYCEMIC CONTROL: * Basal insulin * Lantus SQ HS * BSG 180mg/dl or less - 5 units * BSG > 180mg/dl - 10 units * Bolus insulin * NovoLog per scale ACHS or Q6hrs while NPO * Goal Range: Low 110 mg/dL - High 140 mg/dL * Correction Factor: 30 mg/dL/unit * LOOSEN: Nutritional / Prandial insulin per carb ratio of 1 unit per 12 grams CHO consumed PLAN FOR DISCHARGE: A1c 6.0% * Continue outpatient regimen
[2019-10-11] MEDS: INSULIN ASPART 100 UNITS/ML 3 ML PEN SQ SCH ×4 (08:25→20:51)
[2019-10-11] MEDS: DOCUSATE SODIUM 100 MG CAP PO SCH ×2 (08:26→20:48)
[2019-10-11] MEDS: LOSARTAN POTASSIUM 25 MG TAB PO SCH (08:26)
[2019-10-11] MEDS: CLOPIDOGREL BISULFATE 75 MG TAB PO SCH (08:27)
[2019-10-11] MEDS: GABAPENTIN 100 MG CAP PO SCH ×3 (08:27→20:48)
[2019-10-11] MEDS: METOPROLOL SUCC 25MG EXT REL TAB PO SCH (08:27)
[2019-10-11] MEDS: PANTOprazole 40 MG TAB PO SCH ×2 (08:27→20:47)
[2019-10-11] MEDS: BUMETANIDE 1 MG TAB PO SCH (08:27)
[2019-10-11] MEDS: ASCORBIC ACID 500 MG TAB PO SCH (08:28)
[2019-10-11] MEDS: FERROUS SULFATE 325 MG TAB PO SCH ×2 (08:28→18:09)
[2019-10-11] MEDS: LACTOBACILLUS ACIDOPHILUS (FLORANEX) TAB PO SCH (08:28)
[2019-10-11] MEDS: FINASTERIDE 5 MG TAB PO SCH (08:28)
[2019-10-11] MEDS: MULTIVITAMIN TAB PO SCH (08:28)
[2019-10-11] MEDS: CITALOPRAM 20 MG TAB PO SCH (08:29)
[2019-10-11] MEDS: ASPIRIN 81 MG ECTAB PO SCH (08:29)
[2019-10-11] MEDS: ACETAMINOPHEN 500 MG TAB PO SCH ×3 (08:29→20:47)
--- NOTE | 2019-10-11 18:57 | Hospitalist Progress Note ---
Date of Service October 11, 2019 Assessment & Plan (1) Wound dehiscence, surgical: s/p OR. per ortho micro pinpoint reincubating, but seems to have no overt infection (2) Type 2 diabetes mellitus: HbA1C 6.0 [07/2019] pharmacy consult in place Current glucose levels are ok (3) Diabetic peripheral neuropathy: Continue gabapentin 100mg TID, burning at op site seems to be incisional (4) CAD (coronary artery disease): no angina today/since admit ASA, Plavix, Metoprolol succinate, losartan, unclear reason for no statin use at this time - outpatient follow up. (5) Chronic systolic heart failure: breathing well/ no dyspnea Continue BB + ARB Continue current bumex dosing as long as sBP > 90 (6) HTN (hypertension): Continue usual home meds - BP shows acceptable control (7) ICD (implantable cardioverter-defibrillator) in place: Noted (8) Hypothyroidism: TSH 4.24 [04/2019]. Continue levothyroxine 25 mcg PO daily. (9) Anemia: Normocytic anemia suspected to be of chronic disease and frequent lab draws given frequent hospitalizations. continue iron follow periodic CBC (10) Lumbar stenosis with neurogenic claudication: Noted history of this (11) Obstructive sleep apnea: previous advised to wear BiPAP but intolerant with this (12) Neurogenic bladder: Suspect luna catheter is chronic based on prior notes. Will try to find out when this was last changed (usually changed once a month). (13) DVT prophylaxis: Will defer to primary team based upon surgical risk of bleeding. No contraindication of chemical prophylaxis noted from medical stand point. PT/OT/discharge planning as per primary orthopedics team Admission and Anticipated Discharge Date Admission Date: October 09, 2019 Subjective feeling ok overall. burning pain at op site less, more tolerable, pain meds still helping -mostly noticed at dressing change. feeling well overall otherwise no cp no sob. no complaints Review of Systems Review of Systems: All systems reviewed & are unremarkable except as noted in HPI & below Physical Exam Physical Exam: gen aao pleasant nad heent nc at mmm breathing unlabored no acc essory muscles good effort skin no rashes no pallor or icterus neuro no focal deficits Results & Data Results & Data ([facility]) Vital Signs (Past 12 Hours) Vital Signs Temp Pulse Resp BP Pulse Ox 10/11/19 15:32 97.5 F L 65 17 111/60 100 10/11/19 07:25 98.1 F 67 16 115/64 97 PG Care Time/CCT Total # of Minutes Spent Total Time Spent with Patient: Total time spent is greater than 50% in coordination of care (as documented) at patient's floor/unit and/or counseling patient: Coding Level of Care Code 34178 Subseq Hosp Care Lvl 3 Diagnoses Wound dehiscence, surgical T81.31XA Encounter type: initial encounter Type 2 diabetes mellitus E11.52; Z79.4 Diabetes mellitus rodent 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 insulin use: with rodent 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 use Diabetes mellitus complication status: with circulatory complication Diabetes mellitus complication detail: with peripheral angiopathy with gangrene Diabetic peripheral neuropathy E11.42 CAD (coronary artery disease) I25.10 Coronary Disease-Associated Artery/Lesion type: [place] artery [place] vs. transplanted heart: [place] heart Associated angina: without angina Chronic systolic heart failure I50.22 HTN (hypertension) I10 Hypertension type: essential hypertension ICD (implantable cardioverter-defibrillator) in place Z95.810 Hypothyroidism E03.9 Hypothyroidism type: acquired Anemia D63.8 Anemia type: other cause Other causes of anemia: chronic disease, other Lumbar stenosis with neurogenic claudication M48.062 Obstructive sleep apnea G47.33 Neurogenic bladder N31.9 DVT prophylaxis Z29.9 (1) Wound dehiscence, surgical Encounter type: initial encounter Qualified Code(s): T81.31XA - Disruption of external operation (surgical) wound, not elsewhere classified, initial encounter (2) Type 2 diabetes mellitus Diabetes mellitus rodent 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 insulin use: with group home use Diabetes mellitus complication status: with circulatory complication Diabetes mellitus complication detail: with peripheral angiopathy with gangrene Qualified Code (s): E11.52 - Type 2 diabetes mellitus with diabetic peripheral angiopathy with gangrene; Z79.4 - rodent 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 (current) use of insulin (3) CAD (coronary artery disease) Coronary Disease-Associated Artery/Lesion type: [place] artery [place] vs. transplanted heart: [place] heart Associated angina: without angina Qualified Code(s): I25.10 - Atherosclerotic heart disease of [place] coronary artery without angina pectoris (4) HTN (hypertension) Hypertension type: essential hypertension Qualified Code(s): I10 - Essential (primary) hypertension (5) Hypothyroidism Hypothyroidism type: acquired Qualified Code(s): E03.9 - Hypothyroidism, unspecified (6) Anemia Anemia type: other cause Other causes of anemia: chronic disease, other Qualified Code(s): D63.8 - Anemia in other chronic diseases classified elsewhere
[2019-10-11] MEDS: QUETIAPINE FUMARATE 25 MG TABLET PO SCH (20:47)
[2019-10-11] MEDS: MELATONIN 3 MG TAB PO SCH (20:48)
[2019-10-11] MEDS: SENNA 8.6 MG TAB PO SCH (20:48)
[2019-10-11] MEDS: TAMSULOSIN HCL 0.4 MG CAP PO SCH (20:48)
[2019-10-11] MEDS: INSULIN GLARGINE SOLOSTAR 100 UNITS/ML 3 ML PEN SQ SCH (20:51)
[2019-10-12 05:14] LABS: Basophils # (auto) 0.02 K/uL (0-0.2); Basophils % (auto) 0.3 %; Eosinophils # (auto) 0.29 K/uL (0-0.5); Eosinophils % (auto) 4.5 %; Hematocrit (blood only) 30.2 % (42-52); Hemoglobin 9.7 g/dL (14.0-18.0); Immature Granulocytes # (auto) 0.03 K/uL (0.00-0.02); Immature Granulocytes % (auto) 0.5 %; Lymphocytes # (auto) 1.01 K/uL (1.2-3.4); Lymphocytes % (auto) 15.6 %; Mean Corpuscular Hemoglobin 30.2 pg (25-34); Mean Corpuscular Hgb Conc 32.1 g/dL (32-36); Mean Corpuscular Volume 94.1 fL (80-100); Mean Platelet Volume 10.1 fL (7.4-10.4); Monocytes # (auto) 0.83 K/uL (0.11-0.59); Monocytes % (auto) 12.8 %; Neutrophils # (auto) 4.31 K/uL (1.4-6.5); Neutrophils % (auto) 66.3 %; Platelet Count 154 K/uL (130-400); RDW Coefficient of Variation 16.2 % (11.5-14.5); RDW Standard Deviation 56.4 fL (36.4-46.3); Red Blood Count 3.21 M/uL (4.7-6.1); White Blood Count 6.49 K/uL (4.8-10.8)
[2019-10-12] MEDS: LEVOTHYROXINE SODIUM 25 MCG TABLET PO SCH (05:36)
[2019-10-12 05:37] LABS: BUN Creatinine Ratio 36.1 (10-20); Calcium 8.9 mg/dl (8.5-10.1); Est GFR (African American) 85.3; Est GFR (Non-African American) 73.6; Potassium 4.4 mmol/L (3.5-5.1)
[2019-10-12] MEDS: INSULIN ASPART 100 UNITS/ML 3 ML PEN SQ SCH ×4 (08:48→21:03)
[2019-10-12] MEDS: LOSARTAN POTASSIUM 25 MG TAB PO SCH (08:58)
[2019-10-12] MEDS: ASPIRIN 81 MG ECTAB PO SCH (08:58)
[2019-10-12] MEDS: MULTIVITAMIN TAB PO SCH (08:58)
[2019-10-12] MEDS: CLOPIDOGREL BISULFATE 75 MG TAB PO SCH (08:58)
[2019-10-12] MEDS: ACETAMINOPHEN 500 MG TAB PO SCH ×3 (08:58→20:53)
[2019-10-12] MEDS: ASCORBIC ACID 500 MG TAB PO SCH (08:58)
[2019-10-12] MEDS: METOPROLOL SUCC 25MG EXT REL TAB PO SCH (08:58)
[2019-10-12] MEDS: FERROUS SULFATE 325 MG TAB PO SCH ×2 (08:59→16:42)
[2019-10-12] MEDS: LACTOBACILLUS ACIDOPHILUS (FLORANEX) TAB PO SCH (08:59)
[2019-10-12] MEDS: FINASTERIDE 5 MG TAB PO SCH (08:59)
[2019-10-12] MEDS: GABAPENTIN 100 MG CAP PO SCH ×3 (08:59→20:54)
[2019-10-12] MEDS: CITALOPRAM 20 MG TAB PO SCH (08:59)
[2019-10-12] MEDS: PANTOprazole 40 MG TAB PO SCH ×2 (08:59→20:53)
[2019-10-12] MEDS: BUMETANIDE 1 MG TAB PO SCH (09:00)
[2019-10-12] MEDS: DOCUSATE SODIUM 100 MG CAP PO SCH ×2 (09:00→20:53)
--- NOTE | 2019-10-12 09:12 | Hospitalist Progress Note ---
Date of Service October 12, 2019 Assessment & Plan (1) Wound dehiscence, surgical: s/p OR. per ortho concern for MSSA started on ancef admission (2) Type 2 diabetes mellitus: HbA1C 6.0 [07/2019] pharmacy consult in place Current glucose levels are ok (3) Diabetic peripheral neuropathy: Continue gabapentin 100mg TID, (4) CAD (coronary artery disease): no angina today/since admit ASA, Plavix, Metoprolol succinate, losartan, unclear reason for no statin use at this time - outpatient follow up. (5) Chronic systolic heart failure: breathing well/ no dyspnea Continue BB + ARB Continue current bumex dosing as long as sBP > 90 (6) HTN (hypertension): Continue usual home meds - BP shows acceptable control (7) ICD (implantable cardioverter-defibrillator) in place: Noted (8) Hypothyroidism: TSH 4.24 [04/2019]. Continue levothyroxine 25 mcg PO daily. (9) Anemia: Normocytic anemia suspected to be of chronic disease and frequent lab draws given frequent hospitalizations. continue iron follow periodic CBC (10) Lumbar stenosis with neurogenic claudication: Noted history of this (11) Obstructive sleep apnea: previous advised to wear BiPAP but intolerant with this (12) Neurogenic bladder: Suspect luna catheter is chronic based on prior notes. Will try to find out when this was last changed (usually changed once a month). (13) DVT prophylaxis: surgical preference PT/OT/discharge planning as per primary orthopedics team Admission and Anticipated Discharge Date Admission Date: October 09, 2019 Subjective pt is in good spirits, has no real complaints except for some post procedural BKA pain, now complains of some ear discomfort and has had debrox in the past Review of Systems Review of Systems: Mild distress and fatigue no headache, blurry or double vision no speech or swallowing issues no chest pain, pressure or palpitations no shortness of breath, cough or wheezes no abdominal pain, nausea or vomiting, diarrhea or constipation no dysuria, hematuria or frequency Left BKA pain and swelling no back pain, CVA tenderness or radicular pain no bruising, bleeding or rashes no focal signs of weakness or numbness or altered sensation no complaints or anxiety or depression Physical Exam Physical Exam: The patient appeared well nourished and normally developed. Vital signs as documented. Head exam is unremarkable. No scleral icterus Neck is without JVD, thyromegaly, or carotid bruits. Lungs are clear to auscultation, no focal loss of breath sounds Cardiac exam, Rhythm is regular.. No murmurs, rubs or gallops. Abdominal exam reveals normal bowel sounds, soft non tender, no masses Extremity on the left is bandaged reportedly ortho feels is healing well Neurologic exam is alert and oriented, no focal loss of strength or sensation Skin is without bruises or rashes Psychologically is without concerns for anxiety or depression Results & Data Results & Data ([facility]) Vital Signs (Past 12 Hours) Vital Signs Temp Pulse Resp BP Pulse Ox 10/12/19 07:00 98.1 F 66 16 116/63 100 10/11/19 23:03 98.1 F 65 18 110/66 100 PG Care Time/CCT Total # of Minutes Spent Total Time Spent with Patient: Total time spent is greater than 50% in coordination of care (as documented) at patient's floor/unit and/or counseling patient: Coding Level of Care Code 60216 Subseq Hosp Care Lvl 2 Diagnoses Wound dehiscence, surgical T81.31XA Encounter type: initial encounter Type 2 diabetes mellitus E11.52; Z79.4 Diabetes mellitus complication detail: with peripheral angiopathy with gangrene Diabetes mellitus complication status: with circulatory complication Diabetes mellitus bed bug 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 insulin use: with alf use Diabetic peripheral neuropathy E11.42 CAD (coronary artery disease) I25.10 Associated angina: without angina Coronary Disease-Associated Artery/Lesion type: [place] artery [place] vs. transplanted heart: [place] heart Chronic systolic heart failure I50.22 HTN (hypertension) I10 Hypertension type: essential hypertension ICD (implantable cardioverter-defibrillator) in place Z95.810 Hypothyroidism E03.9 Hypothyroidism type: acquired Anemia D63.8 Anemia type: other cause Other causes of anemia: chronic disease, other Lumbar stenosis with neurogenic claudication M48.062 Obstructive sleep apnea G47.33 Neurogenic bladder N31.9 DVT prophylaxis Z29.9 (1) Type 2 diabetes mellitus Diabetes mellitus complication detail: with peripheral angiopathy with gangrene Diabetes mellitus complication status: with circulatory complication Diabetes mellitus bed bug 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 insulin use: with alf use Qualified Code(s): E11.52 - Type 2 diabetes mellitus with diabetic peripheral angiopathy with gangrene; Z79.4 - termite control servicer (current) use of insulin (2) CAD (coronary artery disease) Associated angina: without angina Coronary Disease-Associated Artery/Lesion type: [place] artery [place] vs. transplanted heart: [place] heart Qualified Code(s): I25.10 - Atherosclerotic heart disease of [place] coronary artery without angina pectoris (3) Anemia Anemia type: other cause Other causes of anemia: chronic disease, other Qualified Code(s): D63.8 - Anemia in other chronic diseases classified elsewhere (4) Hypothyroidism Hypothyroidism type: acquired Qualified Code(s): E03.9 - Hypothyroidism, unspecified (5) Wound dehiscence, surgical Encounter type: initial encounter Qualified Code(s): T81.31XA - Disruption of external operation (surgical) wound, not elsewhere classified, initial encounter (6) HTN (hypertension) Hypertension type: essential hypertension Qualified Code(s): I10 - Essential (primary) hypertension
[2019-10-12] MEDS: OXYCODONE HCL IR 5 MG TAB (IMMEDIATE RELEASE) PO PRN ×2 (10:31→20:52)
--- NOTE | 2019-10-12 10:43 | Orthopedic Progress Note ---
Date of Service October 12, 2019 Assessment & Plan (1) Wound dehiscence, surgical: POD #3 s/p Left Knee Irrigation and Debridement of Skin, Fascia, and Subcutaneous Fat, Muscle and Tendon, Debridement of bone NWB left leg Dressing changed this am awaiting OR cultures -current culture showing pinpoint growth and re- incubating. Await final cultures before discharge per Dr Guillermo Discharge planning -patient hoping to go to [facility] dc. Admission and Anticipated Discharge Date Admission Date: October 09, 2019 Subjective Postop day 3 status post debridement of left BKA stump. Patient currently sitting up in bed awake and alert. States he is having some pain this morning. Nursing staff is present getting him some pain medication. No other complaints at this time. Physical Exam Physical Exam: Dressing removed. Wound is well approximated. No overt erythema or swelling. Minimal drainage on the old dressing. Wound redressed Results & Data ([facility]) Vital Signs (Past 12 Hours) Vital Signs Temp Pulse Resp BP Pulse Ox 10/12/19 07:00 36.7 C 66 16 116/63 100 10/11/19 23:03 36.7 C 65 18 110/66 100 (1) Wound dehiscence, surgical Encounter type: initial encounter Qualified Code(s): T81.31XA - Disruption of external operation (surgical) wound, not elsewhere classified, initial encounter
--- NOTE | 2019-10-12 11:30 | Pharmacy Report ---
Glycemic Control Progress Note - Date of Service October 12, 2019 - Scope Glycemic Pharmacist consulted for glycemic control to write orders per [facility] inpatient glycemic control protocol. - Objective Accuchecks BSG(last 24 hours):: 10/11/19 10/11/19 10/11/19 11:49 17:13 20:20 Glucose POC Glucose 121 H 133 H 155 H 10/12/19 10/12/19 04:26 08:07 Glucose 84 POC Glucose 101 H - Recent Pertinent Medications The patient is currently receiving: * Basal insulin: Lantus 5 units every 24 hours * Correctional Insulin: Novolog Correction per scale ACHS Goal Range: Low 110 mg/dL - High 140 mg/dL Correction Factor: 30 mg/dL/unit * Prandial insulin: Per carb ratio of 1 unit per 10 grams CHO consumed - Outpatient Anti-Diabetic Meds Lantus 13 units HS Aspart 6 units AC - Assessment & Plan ASSESSMENT: * See progress note from 10/09/2019 for more background info, in short: * Pt receiving SQ basal bolus insulin regimen for hyperglycemia secondary to baseline DM (outpatient regimen on hold). * Patient is currently receiving an average of 16 units of insulin per day * 5 units of basal insulin * 11 units of prandial/correctional insulin * BSGs ranging 85 - 155 mg/dl over the past 24hrs * Changes needed to insulin regimen: * AM Fasting BSG = 101 mg/dl. This is in goal range for patient based on inpatient targets and co-morbidities. This was after OJ for PRP BSG of 84 mg/L. No documentation of hypoglycemia. Will d/c Lantus. * Post-prandial BSGs trend upwards -- tighten carbohydrate ratio especially since Lantus d/c'ed * Total daily dose = ~10-15 units. PLAN FOR INPATIENT GLYCEMIC CONTROL: * Basal insulin * discontinue * Bolus insulin * NovoLog per scale ACHS or Q6hrs while NPO * Goal Range: Low 110 mg/dL - High 140 mg/dL * Correction Factor: 30 mg/dL/unit * Nutritional / Prandial insulin per carb ratio of 1 unit per 10 grams CHO consumed RECOMMENDATIONS FOR DISCHARGE: * continue home medications as long as patient does not suffer from hypoglycemia as an outpatient. Thank you.
[2019-10-12] MEDS: TROLAMINE SALICYLATE 10% CRM 255 APPLN/85 GM TUBE EXT PRN (14:45)
[2019-10-12] MEDS: CEFAZOLIN 2000MG 2,000 MG/15 ML SYR IV SCH (16:36)
[2019-10-12] MEDS: MELATONIN 3 MG TAB PO SCH (20:53)
[2019-10-12] MEDS: SENNA 8.6 MG TAB PO SCH (20:53)
[2019-10-12] MEDS: CARBAMIDE PEROXIDE 6.5% 15 ML BTL OT SCH (20:54)
[2019-10-12] MEDS: TAMSULOSIN HCL 0.4 MG CAP PO SCH (20:54)
[2019-10-12] MEDS: QUETIAPINE FUMARATE 25 MG TABLET PO SCH (22:16)
[2019-10-13] MEDS: CEFAZOLIN 2000MG 2,000 MG/15 ML SYR IV SCH ×2 (00:25→09:37)
[2019-10-13] MEDS: LEVOTHYROXINE SODIUM 25 MCG TABLET PO SCH (05:38)
--- NOTE | 2019-10-13 09:11 | Hospitalist Progress Note ---
Date of Service October 13, 2019 Assessment & Plan (1) Wound dehiscence, surgical: s/p OR. per ortho concern for MSSA started on ancef will transition to iv ceftriaxone for ease of outpt administration to complete 2 weeks of treatment with close outpt evaluation by lee (2) Type 2 diabetes mellitus: HbA1C 6.0 [07/2019] pharmacy consult in place Current glucose levels are acceptable (3) Diabetic peripheral neuropathy: Continue gabapentin 100mg TID, to help with neuropathic and phantom pain (4) CAD (coronary artery disease): no angina today/since admit ASA, Plavix, Metoprolol succinate, losartan, unclear reason for no statin use at this time - outpatient follow up. (5) Chronic systolic heart failure: breathing well/ no dyspnea Continue continue metoprolol and losartan plus bumex dosing as long as sBP > 90 (6) HTN (hypertension): As above continue medications (7) ICD (implantable cardioverter-defibrillator) in place: Noted (8) Hypothyroidism: TSH 4.24 [04/2019]. Continue levothyroxine 25 mcg PO daily. (9) Anemia: Normocytic anemia suspected to be of chronic disease and frequent lab draws given frequent hospitalizations. continue iron (10) Lumbar stenosis with neurogenic claudication: Noted history of this (11) Obstructive sleep apnea: previous advised to wear BiPAP but intolerant with this (12) Neurogenic bladder: Suspect luna catheter is chronic based on prior notes. Will try to find out when this was last changed (usually changed once a month). (13) DVT prophylaxis: surgical preference PT/OT/discharge planning as per primary orthopedics team Admission and Anticipated Discharge Date Admission Date: October 09, 2019 Subjective Patient was disappointed to hear he had an infection in his wound dehiscence. Recommendations would be 2 weeks of intravenous antibiotic therapy. Surgical service has converted Ancef to ceftriaxone for ease of administration as it was once a day. 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 Patient is discouraged that this will delay his prosthesis placement. Patient is hopeful to have rehabilitation between discharged home as now his leg is much more swollen and tender and limits his ability to provide assistance to his care at home Review of Systems Review of Systems: Moderate distress and fatigue no headache, blurry or double vision no speech or swallowing issues no chest pain, pressure or palpitations no shortness of breath, cough or wheezes no abdominal pain, nausea or vomiting, diarrhea or constipation no dysuria, hematuria or frequency Distal left leg stump pain and increased tenderness to touch and swelling no back pain, CVA tenderness or radicular pain no bruising, bleeding or rashes no focal signs of weakness or numbness or altered sensation no complaints or anxiety or depression Physical Exam Physical Exam: The patient appeared well nourished and normally developed. Vital signs as documented. Head exam is unremarkable. No scleral icterus Neck is without JVD, thyromegaly, or carotid bruits. Extremitie on the left is dressing in place it is tender to examine him in the dressing are just proximal to it Neurologic exam is alert and oriented Skin is without bruises or rashes other than the affected surgical site Psychologically is with depressed mood due to relapse of his surgery Results & Data Results & Data ([facility]) Vital Signs (Past 12 Hours) Vital Signs Temp Pulse Resp BP Pulse Ox 10/13/19 07:19 97.9 F 63 18 98/54 L 100 10/12/19 22:49 98.4 F 64 16 96/58 L 99 PG Care Time/CCT Total # of Minutes Spent Total Time Spent with Patient: Total time spent is greater than 50% in coordi nation of care (as documented) at patient's floor/unit and/or counseling patient: Coding Level of Care Code 38177 Subseq Hosp Care Lvl 2 Diagnoses Wound dehiscence, surgical T81.31XA Encounter type: initial encounter Type 2 diabetes mellitus E11.52; Z79.4 Diabetes mellitus complication detail: with peripheral angiopathy with gangrene Diabetes mellitus complication status: with circulatory complication Diabetes mellitus long distance operator insulin use: with residential use Diabetic peripheral neuropathy E11.42 CAD (coronary artery disease) I25.10 Associated angina: without angina Coronary Disease-Associated Artery/Lesion type: [place] artery [place] vs. transplanted heart: [place] heart Chronic systolic heart failure I50.22 HTN (hypertension) I10 Hypertension type: essential hypertension ICD (implantable cardioverter-defibrillator) in place Z95.810 Hypothyroidism E03.9 Hypothyroidism type: acquired Anemia D63.8 Anemia type: other cause Other causes of anemia: chronic disease, other Lumbar stenosis with neurogenic claudication M48.062 Obstructive sleep apnea G47.33 Neurogenic bladder N31.9 DVT prophylaxis Z29.9 (1) Type 2 diabetes mellitus Diabetes mellitus complication detail: with peripheral angiopathy with gangrene Diabetes mellitus complication status: with circulatory complication Diabetes mellitus residential insulin use: with long distance operator use Qualified Code(s): E11.52 - Type 2 diabetes mellitus with diabetic peripheral angiopathy with gangrene; Z79.4 - halfway (current) use of insulin (2) CAD (coronary artery disease) Associated angina: without angina Coronary Disease-Associated Artery/Lesion type: [place] artery [place] vs. transplanted heart: [place] heart Qualified Code(s): I25.10 - Atherosclerotic heart disease of [place] coronary artery without angina pectoris (3) Anemia Anemia type: other cause Other causes of anemia: chronic disease, other Qualified Code(s): D63.8 - Anemia in other chronic diseases classified elsewhere (4) Hypothyroidism Hypothyroidism type: acquired Qualified Code(s): E03.9 - Hypothyroidism, unspecified (5) Wound dehiscence, surgical Encounter type: initial encounter Qualified Code(s): T81.31XA - Disruption of external operation (surgical) wound, not elsewhere classified, initial encounter (6) HTN (hypertension) Hypertension type: essential hypertension Qualified Code(s): I10 - Essential (primary) hypertension
[2019-10-13] MEDS: ACETAMINOPHEN 500 MG TAB PO SCH ×3 (09:40→22:27)
[2019-10-13] MEDS: OXYCODONE HCL IR 5 MG TAB (IMMEDIATE RELEASE) PO PRN ×2 (09:40→20:33)
[2019-10-13] MEDS: PANTOprazole 40 MG TAB PO SCH ×2 (09:40→20:33)
[2019-10-13] MEDS: MULTIVITAMIN TAB PO SCH (09:41)
[2019-10-13] MEDS: LOSARTAN POTASSIUM 25 MG TAB PO SCH (09:41)
[2019-10-13] MEDS: ASPIRIN 81 MG ECTAB PO SCH (09:41)
[2019-10-13] MEDS: LACTOBACILLUS ACIDOPHILUS (FLORANEX) TAB PO SCH (09:41)
[2019-10-13] MEDS: METOPROLOL SUCC 25MG EXT REL TAB PO SCH (09:41)
[2019-10-13] MEDS: GABAPENTIN 100 MG CAP PO SCH ×3 (09:42→20:50)
[2019-10-13] MEDS: CLOPIDOGREL BISULFATE 75 MG TAB PO SCH (09:42)
[2019-10-13] MEDS: FINASTERIDE 5 MG TAB PO SCH (09:42)
[2019-10-13] MEDS: FERROUS SULFATE 325 MG TAB PO SCH ×2 (09:42→18:26)
[2019-10-13] MEDS: DOCUSATE SODIUM 100 MG CAP PO SCH ×2 (09:42→20:33)
[2019-10-13] MEDS: CITALOPRAM 20 MG TAB PO SCH (09:42)
[2019-10-13] MEDS: CARBAMIDE PEROXIDE 6.5% 15 ML BTL OT SCH ×2 (09:43→20:35)
[2019-10-13] MEDS: INSULIN ASPART 100 UNITS/ML 3 ML PEN SQ SCH ×4 (09:49→20:50)
[2019-10-13] MEDS: ASCORBIC ACID 500 MG TAB PO SCH (09:55)
[2019-10-13] MEDS: cefTRIAXone SODIUM 2,000 MG in DEXTROSE 5% 50 ML IV SCH (09:55)
[2019-10-13] MEDS: BUMETANIDE 1 MG TAB PO SCH (09:55)
--- NOTE | 2019-10-13 10:07 | Orthopedic Progress Note ---
Date of Service October 13, 2019 Assessment & Plan (1) Wound dehiscence, surgical: POD #3 s/p Left Knee Irrigation and Debridement of Skin, Fascia, and Subcutaneous Fat, Muscle and Tendon, Debridement of bone NWB left leg Dressing changed this am OR cultures as noted above. With possible plans of the patient going to [facility] rehab, plan to switch the patient to ceftriaxone 2 g IV daily and discontinue the cefazolin. I discussed this with Dr. Stewart Daily dressing changes. Dr. Guillermo recommending at least 2 weeks of IV antibiotics with the possibility of going to 4 weeks. Discharge planning -patient hoping to go to [facility] upon dc. I have discussed the case with Lisa Reddy from case management. Authorization is placed for rehab. Await approval. Admission and Anticipated Discharge Date Admission Date: October 09, 2019 Subjective Patient currently receiving medications from nursing staff. Awake and alert without discomfort. Pain is controlled at this time. Physical Exam Physical Exam: Dressings are clean, dry, and intact. Continuing to keep the left lower extremity stump elevated. Results & Data ([facility]) Vital Signs (Past 12 Hours) Vital Signs Temp Pulse Resp BP Pulse Ox 10/13/19 07:19 36.6 C 63 18 98/54 L 100 10/12/19 22:49 36.9 C 64 16 96/58 L 99 Diagnostic Findings colleen: NICHOLAS NGUYEN Acct: [id number] Status: ADM IN : 1950 [facility] [place] Date: 10/09/19 Age: 68 Sex: M Dis Date: Loc: Medical/Surgical/Ortho 3 [facility]/Bed: E3[facility] Spec: [id number] Collected: 10/09/19-UNK Received: 10/09/19-[address]: Chuckie GuillermoDEthanO. Source: Knee,Left OV Order: Ordered: Aer/Lizz Cult/Sm Comments: Comment 1. Deep Central Sinus Tract, Left Below Knee Amput Procedure Result Verified Site Gram Stain Final 10/09/19-1446 Gram Stain Result No Epithelial Cells Few WBCs Seen Few Gram Positive Bacilli Rare Gram Positive Cocci Aero/Lizz Cult Preliminary 10/13/190848 Organism 1 Staphylococcus aureus Quantity Few Sens Sensitivities to Follow No Anaerobes Isolated No Anaerobes Isolated +MixWound Plus Moderate Counts of Probable Skin Jinny S aureus RX M.I.C. --- --------- Clindamycin S <=0.5 Daptomycin S <=0.5 Erythromycin S <=0.5 Oxacillin S <=0.25 Tetracycline R >8 Trimeth/Sulfa R > Vancomycin S 1 S = SENSITIVE I = INTERMEDIATE R = RESISTANT (1) Wound dehiscence, surgical Encounter type: initial encounter Qualified Code(s): T81.31XA - Disruption of external operation (surgical) wound, not elsewhere classified, initial encounter
--- NOTE | 2019-10-13 12:33 | Pharmacy Report ---
Pharmacy Glycemic Short Note 2 - Date of Service October 13, 2019 - Glycemic Short BSG Results (Last 24 hours): 10/12/19 10/12/19 10/13/19 17:02 20:35 07:53 POC Glucose 127 H 202 H 110 H 10/13/19 11:51 POC Glucose 95 OUTPATIENT ANTIDIABETIC REGIMEN: * Lantus 13 units HS, Aspart 6 units AC ASSESSMENT: 10/13/19: * Adequate glycemic control over the past 24 hours. Leandro received 23 units of bolus insulin yesterday. * Basal insulin was discontinued on 10/11 - will continue this per fasting BSG = 110 mg/dL * Loosen Novolog carb ratio based on post prandial BSG less than 100 mg/dL * No changes in risk factors for insulin resistance PLAN FOR INPATIENT GLYCEMIC CONTROL: * Basal insulin * none * Bolus insulin * NovoLog per scale ACHS or Q6hrs while NPO * Goal Range: Low 120 mg/dL - High 140 mg/dL * Correction Factor: 30 mg/dL/unit * LOOSEN: Nutritional / Prandial insulin per carb ratio of 1 unit per 11 grams CHO consumed PLAN FOR DISCHARGE: A1c 6.0% * continue home medications as long as patient does not suffer from hypoglycemia as an outpatient Thank you.
[2019-10-13] MEDS: TROLAMINE SALICYLATE 10% CRM 255 APPLN/85 GM TUBE EXT PRN (14:34)
[2019-10-13] MEDS: SENNA 8.6 MG TAB PO SCH (20:32)
[2019-10-13] MEDS: TAMSULOSIN HCL 0.4 MG CAP PO SCH (20:32)
[2019-10-13] MEDS: QUETIAPINE FUMARATE 25 MG TABLET PO SCH (20:32)
[2019-10-13] MEDS: MELATONIN 3 MG TAB PO SCH (20:34)
[2019-10-14] MEDS: LEVOTHYROXINE SODIUM 25 MCG TABLET PO SCH (05:19)
[2019-10-14] MEDS: ACETAMINOPHEN 500 MG TAB PO SCH ×2 (08:27→13:15)
[2019-10-14] MEDS: cefTRIAXone SODIUM 2,000 MG in DEXTROSE 5% 50 ML IV SCH (08:27)
[2019-10-14] MEDS: CLOPIDOGREL BISULFATE 75 MG TAB PO SCH (08:28)
[2019-10-14] MEDS: LOSARTAN POTASSIUM 25 MG TAB PO SCH (08:28)
[2019-10-14] MEDS: ASCORBIC ACID 500 MG TAB PO SCH (08:28)
[2019-10-14] MEDS: FERROUS SULFATE 325 MG TAB PO SCH (08:28)
[2019-10-14] MEDS: CITALOPRAM 20 MG TAB PO SCH (08:29)
[2019-10-14] MEDS: FINASTERIDE 5 MG TAB PO SCH (08:29)
[2019-10-14] MEDS: ASPIRIN 81 MG ECTAB PO SCH (08:29)
[2019-10-14] MEDS: METOPROLOL SUCC 25MG EXT REL TAB PO SCH (08:29)
[2019-10-14] MEDS: LACTOBACILLUS ACIDOPHILUS (FLORANEX) TAB PO SCH (08:29)
[2019-10-14] MEDS: MULTIVITAMIN TAB PO SCH (08:29)
[2019-10-14] MEDS: CARBAMIDE PEROXIDE 6.5% 15 ML BTL OT SCH (08:30)
[2019-10-14] MEDS: BUMETANIDE 1 MG TAB PO SCH (08:30)
[2019-10-14] MEDS: GABAPENTIN 100 MG CAP PO SCH ×2 (08:31→13:15)
[2019-10-14] MEDS: PANTOprazole 40 MG TAB PO SCH (08:31)
[2019-10-14] MEDS: DOCUSATE SODIUM 100 MG CAP PO SCH (08:31)
[2019-10-14] MEDS: INSULIN ASPART 100 UNITS/ML 3 ML PEN SQ SCH ×2 (09:25→13:14)
--- NOTE | 2019-10-14 09:29 | Orthopedic Progress Note ---
Date of Service October 14, 2019 Assessment & Plan (1) Wound dehiscence, surgical: POD #4 s/p Left Knee Irrigation and Debridement of Skin, Fascia, and Subcutaneous Fat, Muscle and Tendon, Debridement of bone NWB left left. Daily dressing changes. Dr. Guillermo recommending at least 2 weeks of IV antibiotics with the possibility of going to 4 weeks. Discharge planning - [facility] rehab facility denied. Patient's is not comfortable with correction facility setting. Planning on taking him home with home health services. Admission and Anticipated Discharge Date Admission Date: October 09, 2019 Subjective Patient sleeping upon arrival. Easily awoken. No complaints this morning. Pain controlled. Rehab facility denied and patient and family are planning on taking him back home with home health services. Physical Exam Physical Exam: Dressings removed. Scant drainage noted over the medial aspect of his incision. Not appear to be purulent but more serous. Scant erythema noted around the wound edges but wound edges well approximated. Results & Data ([facility]) Vital Signs (Past 12 Hours) Vital Signs Temp Pulse Resp BP Pulse Ox 10/14/19 08:01 36.6 C 65 16 145/75 H 100 10/13/19 22:54 37.1 C 63 16 117/69 99 (1) Wound dehiscence, surgical Encounter type: initial encounter Qualified Code(s): T81.31XA - Disruption of external operation (surgical) wound, not elsewhere classified, initial encounter
--- NOTE | 2019-10-22 15:47 | Discharge Summary ---
Date of Service October 22, 2019 Admission HPI Per Admitting Provider This is a patient who had a left BKA done approximately 6 weeks ago. As his sutures were removed, the wound began to open. He was evaluated in the [facility] office after the wound dehiscence and is now being set up for surgical debridement. Principal Diagnosis left BKA wound dehiscence Discharge Exam Constitutional well developed and well nourished; no acute distress ENMT external ear and nose normal, oropharynx normal Neck trachea midline, no thyromegaly Respiratory normal respiratory effort, lungs clear to auscultation Cardiovascular Rate/Rhythm: regular rate and regular rhythm Gastrointestinal (Abdomen) normal bowel sounds, soft, nontender, no hepatosplenomegaly Musculoskeletal Knee: + surgical incision (left BKA well approximated flap incision); no skin erythema (left BKA site) Neurologic normal touch/pain/proprioception Psychiatric A+Ox3, euthymic affect Lymphatic no cervical or axillary lymphadenopathy Discharge Data Allergies Allergy/AdvReac Type Severity Reaction Status Date / Time lorazepam AdvReac Confusion Verified 10/19/19 12:36 sacubitril [From Entresto] AdvReac problems Verified 10/19/19 12:36 with bp valsartan [From Entresto] AdvReac problems Verified 10/19/19 12:36 with bp Consultations 10/09/19 13:38 Consult Case Management - Discharge Planning Routine Consult Hospitalist Routine Procedures Performed Operation Date: 10/09/19 11:30 Actual Procedures p Left Knee Irrigation and Debridement of Skin, Fascia, and Subcutaneous Fat, Muscle and Tendon, Debridement of bone(Left) - Chuckie Guillermo DO Ordered Studies 10/09/19 05:00 US - OR guided needle placemen Routine Hospital Course (1) Wound dehiscence, surgical: Patient underwent an I & D of the left BKA wound dehiscence and progressed well during his inpatient stay. The patient's plan was to go to [facility] upon discharge from the hospital, however this was denied by his insurance. On POD #5, the patient was discharged home with home nursing. POD #4 s/p Left Knee Irrigation and Debridement of Skin, Fascia, and Subcutaneous Fat, Muscle and Tendon, Debridement of bone NWB left left. Daily dressing changes. Dr. Guillermo recommending at least 2 weeks of IV antibiotics with the possibility of going to 4 weeks. Discharge planning - [facility] rehab facility denied. Patient's is not comfortable with long-term facility setting. Planning on taking him home with home health services. Total Time Total Time Spent Total Time Spent (In Minutes): 90 Total Time Includes: Examination of the Patient, Discharge Planning, Medication Reconciliation and Communication With Other Providers Discharge Plan Discharge Items Patient Disposition: Home - Home Health Services Reason For Visit: Disruption of Wound, Left Discharge Diagnosis: Wound dehiscence left BKA stump. Activity: Per Instructions section Weightbearing: Left non-weightbearing Non-emergency contact: Surgeon Call non-emergency contact if: your pain is not controlled, your temperature is above 101.5, your wound has increased redness and your wound has increased drainage Follow-up/Referrals: Christiano Alvarez MD [Primary Care Provider] - Diet: Carb Consistent or DM2 Addtl Attending Provider Instructions: IV antibiotics per Dr. Guillermo for the next 2 to 4 weeks. CBC, BMP, ESR weekly with results sent to Dr. Guillermo. Continue daily dressing changes. Can use 4 x 4's, Adaptic, Kerlix wrap, four 6 inch Gigi wrap. Nonweightbearing left lower extremity stump. Keep left lower extremity stump elevated on 1 or 2 pillows. If patient going to a rehab type facility or use of home health services, continue PT/OT protocols for ambulation training and transfers. Follow-up in [address] Guillermo. Please call for appointment. [phone] Pending Studies at Discharge: No Stand-Alone Forms: [facility] [employer], Opioid Pain Management, Smoking Cessation Medications and DC Order Prescriptions: New ceftriaxone 2 gram recon soln 2 gm IV DAILY 14 Days Qty: 10 RF: 0 oxycodone 5 mg Tablet 5 mg PO Q4H MDD 6 tabs PRN (Reason: pain) Qty: 18 RF: 0 Continued tamsulosin [Flomax] 0.4 mg capsule 0.4 mg PO HS Qty: 90 RF: 1 quetiapine 25 mg tablet 25 mg PO HS RF: 0 bumetanide 1 mg tablet 1 mg PO QAM Qty: 30 RF: 5 finasteride [Proscar] 5 mg tablet 5 mg PO QAM Qty: 90 RF: 3 ferrous sulfate 325 mg (65 mg iron) tablet,delayed release (DR/EC) 325 mg PO BIDM RF: 0 melatonin 5 mg Tablet 5 mg PO HS RF: 0 ascorbic acid (vitamin C) [Vitamin C] 500 mg Tablet 500 mg PO QAM RF: 0 levothyroxine [Synthroid] 25 mcg tablet 25 mcg PO QAM RF: 0 pantoprazole [Protonix] 40 mg tablet,delayed release (DR/EC) 40 mg PO BID RF: 0 multivitamin Tablet 1 tab PO DAILY RF: 0 Probiotic Acidophilus 1.5 mg (250 million cell) Capsule 10,000 mmu cells PO DAILY RF: 0 insulin aspart U-100 [Novolog Flexpen U-100 Insulin] 100 unit/mL (3 mL) insulin pen 6 units SQ AC Qty: 15 RF: 0 citalopram [Celexa] 10 mg Tablet 10 mg PO QAM RF: 0 acetaminophen [Tylenol Extra Strength] 500 mg Tablet 1,000 mg PO TID RF: 0 docusate sodium [Colace] 100 mg Capsule 100 mg PO BID RF: 0 gabapentin 100 mg Capsule 100 mg PO TID RF: 0 Glucagon Emergency Kit (human) 1 mg Recon Soln 1 mg RF: 0 senna 8.6 mg Capsule 17.2 mg PO BID PRN (Reason: Constipation) RF: 0 Insta-Glucose (with dextrin) 24 gram/31 gram Gel 24 g PO RF: 0 sodium chloride [Saline Nasal] 0.65 % Aerosol,[place] 1 spray INTRANASAL BID PRN (Reason: Nasal Congestion) RF: 0 aspirin [Aspir-81] 81 mg Tablet,Delayed Release (Dr/Ec) 81 mg PO QAM RF: 0 clopidogrel [Plavix] 75 mg tablet 75 mg PO QAM RF: 0 losartan 25 mg tablet 25 mg PO QAM RF: 0 metoprolol succinate 25 mg tablet extended release 24 hr 25 mg PO QAM RF: 0 Lantus Solostar U-100 Insulin 100 unit/mL (3 mL) insulin pen 13 units SQ HS RF: 0 Discontinued oxycodone 5 mg Tablet 5 mg PO Q4H MDD 6 tabs PRN (Reason: pain) Qty: 18 RF: 0 nitrofurantoin monohyd/m-cryst [Macrobid] 100 mg Capsule 100 mg PO BID RF: 0 Discharge Orders: Discharge Order (Routine); Ordered 10/14/19 Ordered By: Ildefonso Murillo Admission Data Admit Date/Time: 05/01/20 12:29 Attending Provider: Chuckie Guillermo Admit Provider: Chuckie Guillermo Primary Care Provider: Christiano Alvarez Other Providers: Ricky Nguyen Other Interventions: Discharge Summary Assessment (RN) Last Done: 10/14/19 11:43 DC Date/Time DO NOT enter until pt leaves facility: 10/14/19 14:00
== END 2019-10-14 14:00 | disposition home health service (06) | DRG 475 ==
LOC: ASU 08:53 → 3E 12:29

== ENCOUNTER 2023-01-17 11:24 | Inpatient (IN) ==
[2023-01-17] MEDS ORDERED: SODIUM CHLORIDE 0.9% 1000ML 1,000 ML IV ONE ×3 (11:41→14:12)
--- NOTE | 2023-01-17 11:56 | Emergency Department Note ---
Impression & Plan Acute alteration in mental status, PAULA (acute kidney injury), Acute pyelonephritis, Elevated troponin I level, Thrombocytopenia ED Provider Note NAME: NICHOLAS NGUYEN AGE: 72 SEX: M : 1950 ARRIVES VIA: Ambulance INFORMANT: Patient, EMS, the significant other ED PROVIDER(S): Zeke Avendano DO CHIEF COMPLAINT: Fever HPI: The patient is a 72-year-old male who presented to the emergency department by ambulance for an evaluation of fever and altered mental status. The patient has a history of pressure ulcers as well as kidney disease. He has a chronic suprapubic indwelling Rojas which was changed approximately 1 week ago. There is been no reported cough. The patient has had redness to his left eye which is being treated as an outpatient. They were seen by the visiting nurse and advised to come to the emergency department. ROS: See above HPI for pertinent positives & negatives. A total of 10 systems reviewed and were otherwise negative. PAST MEDICAL HISTORY: See Below PAST SURGICAL HISTORY: See Below FAMILY HISTORY: See Below SOCIAL HISTORY: See Below HOME MEDICATIONS: See Below ALLERGIES: See Below VITALS: See Below PHYSICAL EXAMINATION: GENERAL: The patient was listless and slow to respond to questioning. He does not appear to be uncomfortable. EYES: Bloodshot. Pupils are equal and round and reactive to light. The left conjunctiva was noted to be bloodshot. EARS, NOSE, MOUTH AND THROAT: The nose is without any evidence of any deformity. Mucous membranes are dry. NECK: The neck is nontender and supple. RESPIRATORY: Normal respiratory effort is noted there is no evidence of wheezing rhonchi or rales CARDIOVASCULAR: Regular rate and rhythm noted there no murmurs rubs or gallops normal S1 normal S2. GASTROINTESTINAL: The abdomen is soft. Abdomen is nontender. MUSCULOSKELETAL/EXTREMITIES: There was a left lower extremity amputation noted. Right leg is in a wound boot. SKIN: The skin is generally erythematous. NEUROLOGIC: Patient is awake and oriented to person place but not time. MEDICAL DECISION MAKING: The patient is a 72-year-old male who presented to the emergency department for altered mental status. The patient has multiple medical conditions. He does have a history of diabetes. He has a suprapubic catheter chronically. He had a history of left leg amputation. The patient has pressure ulcers as well as a wound boot on his right leg. The patient had his suprapubic catheter changed by myself in the emergency department. I discussed the patient's laboratory and radiographic studies with him and his significant other. The patient was found to have a very elevated white blood cell count. I did review his previous urine culture which grew out Proteus. He was started on Zosyn in the emergency department. He received multiple IV fluid boluses in the emergency department. The patient was found to have an elevation in his creatinine as well. The patient's condition did slowly improve while in the emergency department. The case was discussed with the on-call [facility]. Triage Nursing notes reviewed. Prior medical records reviewed Vital Signs: reviewed and remarkable for no significant abnormalities Differential diagnosis: Infection, hypoglycemia, electrolyte abnormalities, overdose, toxicologic, cardiac sources, intracerebral event, neurologic, trauma, as well as other pathologies. ER treatment provided: See below Diagnostics interpreted by me: ECG: EKG was obtained in the emergency department. My interpretation is sinus tachycardia at 101 bpm. PVCs were noted. Right bundle wrench block pattern was noted. This was compared to a tracing from July 21, 2021. The PVCs are new compared to the previous tracing otherwise no significant changes were noted. Cardiac Monitoring: An order was placed for continuous cardiac monitoring. The monitor shows a rate of 90 bpm with sinus rhythm. Laboratory studies: As stated above and show below. Imaging studies: See below. Radiographic imaging was reviewed by myself Consultation(s): I discussed this case with Dr. West who is on-call for the [facility] group. ED COURSE: Procedures: Suprapubic catheter was replaced in usual fashion using sterile condition. A 16 Yoruba suprapubic catheter was placed. Critical Care: I have personally spent greater than 45 minutes of critical care time in the direct management of this patient. This includes bedside care, interpretation of diagnostic studies, and testing, discussion with consultants, patient, and family members, and other required patient management activities. This 45 minutes is in excess of all separately billable procedures. Past Med/Surg History Medical History Abscess in epidural space of lumbar spine RESOLVED PER PATIENT WITH SURGERIES BUT RESULTED IN NEUROGENIC BLADDER. 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 Admitted [facility] 10/18/11 for onset of incapacitating cervical myelopathy. 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 Pt had c-spine surgery, subsequent prolonged hospital admission, complicated post-op course- including cardiac arrest Depression Diabetic peripheral neuropathy Disc degeneration, lumbar Diverticulosis Dyslipidemia Dysphagia resolved per pt History of COVID-19 diagnosed 05/28/20 via HOME TEST ONLY--severe diarrhea/cough/fever/loss of smell--no issues now History of non-ST elevation myocardial infarction (NSTEMI) 2000; 2018 HTN (hypertension) Hypothyroidism ICD (implantable cardioverter-defibrillator) in place Medtronic--ICD replacement done 09/01/20 @ [facility] by Dr. 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 Hollins- had post op respiratory failure requiring trach and subsequent cardiac arres requiring one shock V fib- AICD implanted Type 2 diabetes mellitus per noncompliant with insulin UTI (urinary tract infection), bacterial Wheelchair confinement per does not get out of bed without tien lift--needs wheelchair Surgical History H/O cervical spine surgery ACDI C3-4, C7 corpectomy, removal of C7 intramedullary mass.> ROM IS OK PER PATIENT H/O sinus surgery History of cardiac cath 07/2018 [facility]. Severe multivessel jena coronary artery disease 99% subtotal occlusion in proximal ramus with distal NEMESIO I flow (thought to be acute culprit vessel) -100% chronic mid LAD occlusion Diffuse mid circumflex, 80% proximal OM 2 Sequential mid RCA 95, 90% stenosis 2. Widely patent DELATORRE to LAD. Patent FERNANDO to very small diffusely diseased acute marginal. Occluded radial graft to OM. Medical MGMT recommended. History of cataract extraction with lens replacement History of colonoscopy History of esophagogastroduodenoscopy (EGD) History of incision and drainage Lumbar spine on 08/11/18; complicated by difficult intubation with only #6.5 ETT able to be placed and patient kept intubated post op Lumbar spine again 09/10/2018, ETT#7.0 with difficulty. Lumbar spine 10/09/2018, ETT#7.0, poor view bougie used. Anesthesia postop note: "still requiring phenyelphrine drip to maintain BP. Maintaining O2 sats with oxymask. Case discussed with ICU patient transition specialist, Dr. Mazariegos. Dr. Mazariegos updated with patients PMH including his cardiac comorbidities and his intraop course, including the blood transfusion. Dr. Mazariegos accepting patient for ICU management post op." Left heel 02/06/2019: LMA#5. History of lumbar spinal fusion 07/25/2018: glidescope #3, ETT#8.0. CHF and KS post-op. History of lumbar surgery 09/10/18 Glidescope 3 okay visualization but difficulty passing ETT, unable to pass 8.0, able to pass 7.0 with some difficulty History of tracheostomy CLOSED 8 YRS AGO Hx of CABG 06/2001 [facility] [place] to lad, fernando to rca marginals and left radical artery to left circ Hx of foot surgery [facility] MAY 2019 Hx of tonsillectomy Hx of transurethral resection of prostate S/P PICC central line placement hx of S/P triple vessel bypass [facility], 2002- (DELATORRE to LAD, FERNANDO to Acute Marginal, Radial Graft to OM) Status post below-knee amputation of left lower extremity in setting of osteomyelitis and sepsis 08/14/19: LMA#4 + PNB. I&D 10/09/2019: LMA#4. No issues per anesthesia postop progress note. Family History Mother , age 68 of COPD and respiratory issues COPD (chronic obstructive pulmonary disease) Father , in his 40s of an KS Myocardial infarction Family/Other Coronary heart disease Sister Other specified health status Other Diabetes Hypertension No pertinent family history Denies family history of Prostate cancer Breast cancer Colorectal cancer Social History Smoking Status: Unknown if ever smoked Second Hand Exposure: No; Do You Dip or Chew Tobacco: No; Hx Alcohol Use: No Hx Substance Use: No Preferred Language: Maltese Communication Ability: Effective Communication Ability Comment: confusion Visual Impairment: No Limitations Hearing Ability: Normal Scientist Required: No Beliefs That Will Affect Care: None marital status: Current Living Situation: Spouse and Family Current Living Situation Comment: lives with , son, daughter in law and granddaughter 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al status: retired and disabled 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: 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 [employer] Feels Safe at Home: Yes Diet: regular caffeine: Yes Seatbelt Use: always Sunscreen Use: No Assistive Devices: Hospital Bed, Mechanical Lift and Wheelchair Allergies Allergies Allergy/AdvReac Type Severity Reaction Status Date / Time sacubitril [From Entresto] AdvReac Intermediate problems Verified 01/08/23 10:32 with bp valsartan [From Entresto] AdvReac Intermediate problems Verified 01/08/23 10:32 with bp lorazepam AdvReac Mild Confusion Verified 01/08/23 10:32 Home Meds Home Medications Medication Instructions Recorded Confirmed ascorbic acid (vitamin C) 500 mg 500 mg PO QAM 03/23/19 01/17/23 tablet (Vitamin C) melatonin 5 mg tablet 5 mg PO HS 03/23/19 01/17/23 ferrous sulfate 325 mg (65 mg 325 mg PO QAM 04/27/19 01/17/23 iron) tablet,delayed release acetaminophen 500 mg tablet 1,000 mg PO TID PRN Pain 10/07/19 01/17/23 (Tylenol Extra Strength) aspirin 81 mg tablet,delayed 81 mg PO QAM 04/12/20 01/17/23 release (Aspir-) cholecalciferol (vitamin D3) 25 25 mcg PO QAM 07/18/21 01/17/23 mcg (1,000 unit) tablet (Vitamin D3) nystatin 100,000 unit/gram topical 1 applic topical BID PRN .flare ups 01/17/23 01/17/23 powder sertraline 50 mg tablet 75 mg PO DAILY 01/17/23 01/17/23 Previous Rx's Medication Instructions Recorded gabapentin 100 mg capsule 200 mg PO BID #120 caps 01/17/22 quetiapine 25 mg tablet (Seroquel) 25 mg PO HS #90 tabs 01/17/22 metoprolol succinate 25 mg 25 mg PO QAM #90 tabs 01/23/22 tablet,extended release 24 hr tamsulosin 0.4 mg capsule (Flomax) 0.4 mg PO HS #90 caps 02/27/22 Mattress (Air or other) #1 ea 04/27/22 atorvastatin 40 mg tablet 40 mg PO QAM #90 tabs 05/18/22 Mattress (Air or other) #1 ea 07/04/22 pantoprazole 40 mg tablet,delayed 40 mg PO BID #180 tabs 07/10/22 release (Protonix) sacubitril 24 mg-valsartan 26 mg 1 tab PO BID #180 tabs 08/18/22 tablet (Entresto) glipizide 5 mg tablet, extended 5 mg PO DAILY #30 tabs 09/13/22 release 24 hr levothyroxine 75 mcg tablet 75 mcg PO DAILY #30 tabs 09/13/22 pen needle, diabetic 31 gauge x #50 ea 10/22/2210/23" (BD Ultra-Fine Short Pen Needle) insulin glargine 100 unit/mL (3 18 unit (0.18 mL) subcut QPM #15 mL 12/28/22 mL) subcutaneous pen (Lantus Solostar U-100 Insulin) bumetanide 1 mg tablet 1 mg PO QAM #90 tabs 12/31/22 finasteride 5 mg tablet (Proscar) 5 mg PO QAM #90 tabs 12/31/22 metformin 500 mg tablet,extended 500 mg PO BID #180 tabs 12/31/22 release 24hr Results & Data (ED) Vital Signs Vital Signs - 24 hr 01/17/23 11:32 01/17/23 12:03 01/17/23 12:03 Temperature 37.4 C Temperature Source Oral Pulse Rate 112 H 112 H Pulse Rate from SpO2 Sensor Respiratory Rate 17 Blood Pressure 121/65 Blood Pressure Mean 83 Pulse Oximetry 94 94 94 Oxygen Delivery Method Room Air Room Air Oxygen Flow Rate 0 Sepsis Recent Fever Within 48 Hours Yes Sepsis New/Unexplained Change in Mental Status Yes Sepsis Action Taken by Nursing Physician Notified 01/17/23 12:16 01/17/23 11:31 01/17/23 11:31 Temperature Temperature Source Pulse Rate 100 H 105 H Pulse Rate from SpO2 Sensor 96 H Respiratory Rate 20 Blood Pressure 121/65 Blood Pressure Mean 92 Pulse Oximetry 93 Oxygen Delivery Method Oxygen Flow Rate Sepsis Recent Fever Within 48 Hours Sepsis New/Unexplained Change in Mental Status Sepsis Action Taken by Nursing 01/17/23 11:40 01/17/23 11:50 01/17/23 12:00 Temperature Temperature Source Pulse Rate 99 H 102 H Pulse Rate from SpO2 Sensor 100 H Respiratory Rate 20 24 Blood Pressure 115/64 Blood Pressure Mean 88 Pulse Oximetry 95 Oxygen Delivery Method Oxygen Flow Rate Sepsis Recent Fever Within 48 Hours Sepsis New/Unexplained Change in Mental Status Sepsis Action Taken by Nursing 01/17/23 12:00 01/17/23 12:10 01/17/23 12:36 Temperature Temperature Source Pulse Rate 99 H 105 H 109 H Pulse Rate from SpO2 Sensor 102 H 101 H 97 H Respiratory Rate 20 20 21 Blood Pressure Blood Pressure Mean Pulse Oximetry 94 94 94 Oxygen Delivery Method Oxygen Flow Rate Sepsis Recent Fever Within 48 Hours Sepsis New/Unexplained Change in Mental Status Sepsis Action Taken by Nursing 01/17/23 12:40 01/17/23 12:50 01/17/23 13:00 Temperature Temperature Source Pulse Rate 102 H 102 H Pulse Rate from SpO2 Sensor 94 H 101 H Respiratory Rate 20 20 Blood Pressure 115/73 Blood Pressure Mean 87 Pulse Oximetry 95 95 Oxygen Delivery Method Oxygen Flow Rate Sepsis Recent Fever Within 48 Hours Sepsis New/Unexplained Change in Mental Status Sepsis Action Taken by Nursing 01/17/23 13:00 01/17/23 13:10 01/17/23 13:20 Temperature Temperature Source Pulse Rate 92 H 100 H 96 H Pulse Rate from SpO2 Sensor 97 H 97 H 96 H Respiratory Rate 20 22 20 Blood Pressure Blood Pressure Mean Pulse Oximetry 94 94 96 Oxygen Delivery Method Oxygen Flow Rate Sepsis Recent Fever Within 48 Hours Sepsis New/Unexplained Change in Mental Status Sepsis Action Taken by Nursing 01/17/23 13:30 01/17/23 13:30 01/17/23 13:40 Temperature Temperature Source Pulse Rate 94 H 98 H Pulse Rate from SpO2 Sensor 92 H 103 H Respiratory Rate 20 20 Blood Pressure 113/78 Blood Pressure Mean 90 Pulse Oximetry 93 95 Oxygen Delivery Method Oxygen Flow Rate Sepsis Recent Fever Within 48 Hours Sepsis New/Unexplained Change in Mental Status Sepsis Action Taken by Nursing 01/17/23 13:50 Temperature Temperature Source Pulse Rate 90 Pulse Rate from SpO2 Sensor 91 H Respiratory Rate 20 Blood Pressure Blood Pressure Mean Pulse Oximetry 96 Oxygen Delivery Method Oxygen Flow Rate Sepsis Recent Fever Within 48 Hours Sepsis New/Unexplained Change in Mental Status Sepsis Action Taken by Custodial Medications Current Medication List: was personally reviewed by me Laboratory Data Attestation: I reviewed the patient's lab results. 01/17/23 12:00 01/17/23 12:00 Lab Results 01/17/23 01/17/23 01/17/23 Range/Units 12:00 12:00 12:00 WBC 22.48 H (4.8-10.8) K/ul RBC 3.41 L (4.70-6.10) M/uL Hgb 10.5 L (14.0-18.0) g/dl Hct 31.1 L (42.0-52.0) % MCV 91.2 (80.0-100.0) fL MCH 30.8 (25.0-34.0) pg MCHC 33.8 (32.0-36.0) g/dL RDW Std Deviation 49.8 H (36.4-46.3) fL RDW Coeff of Norbert 14.9 H (11.5-14.5) % Plt Count 89 L (130-400) K/uL MPV 10.0 (9.4-12.4) fL Immature Gran % (Auto) 1.3 % Neut % (Auto) 94.7 % Lymph % (Auto) 1.7 % Bacon % (Auto) 2.2 % Eos % (Auto) 0.0 % Baso % (Auto) 0.1 % Neut # (Auto) 21.28 H (1.40-6.50) K/uL Lymph # (Auto) 0.39 L (1.2-3.4) K/uL Bacon # (Auto) 0.49 (0.11-0.59) K/uL Eos # (Auto) 0.00 (0-0.50) K/uL Baso # (Auto) 0.03 (0-0.2) K/uL Immature Gran # (Auto) 0.29 H (0.01-0.20) K/uL Toxic Vacuolation 1+ Dohle Bodies 1+ Polychromasia 1+ Echinocytes 2+ ESR (0-20) mm/hr PT (9.0-12.0) Seconds INR (0.9-1.1) APTT (21.0-31.0) Seconds PTT Ratio VBG pH (7.36-7.41) VBG pCO2 (38-50) mmHg VBG pO2 mmHg VBG HCO3 mmol/L VBG O2 Saturation % VBG Base Excess mEq/L Sodium 132 L (136-145) mmol/L Potassium 3.9 (3.5-5.1) mmol/L Chloride 99 (98-107) mmol/L Carbon Dioxide 18 L (21-32) mmol/L Anion Gap 15 H (3-11) BUN 89 H (6-23) mg/dl Creatinine 2.75 H (0.6-1.4) mg/dl Est Cr Clr Drug Dosing Not Reportable Est GFR ( Amer) 25.9 ml/min Est GFR (Non-Af Amer) 22.3 ml/min BUN/Creatinine Ratio 32.4 H (10-20) Glucose 220 H (70-99(Fasting)) mg/dl Lactate 2.2 H* (0.4-2.0) mmol/L Calcium 8.7 (8.6-10.3) mg/dl Magnesium 1.1 L (1.7-2.4) mg/dl Total Bilirubin 0.9 (0.2-1.0) mg/dl Direct Bilirubin 0.3 H (0-0.2) mg/dl AST 27 (13-39) U/L ALT 24 (7-52) U/L Alkaline Phosphatase 85 (34-104) U/L Ammonia (18-72) umol/L Troponin I High Sens 2556.7 H* (0-20) pg/ml C-Reactive Protein 29.84 H (0-0.5) mg/dl Total Protein 6.6 (6.0-8.3) gm/dl Albumin 3.1 L (3.4-5.0) gm/dl Procalcitonin (0-0.5) ng/ml Urine Color Urine Appearance (Clear) Urine pH (4.5-7.5) Ur Specific Sidney (1.000-1.030) Urine Protein (Negative) Urine Glucose (UA) (Negative) Urine Ketones (Negative) Urine Blood (Negative) Urine Nitrite (Negative) Urine Bilirubin (Negative) Urine Urobilinogen (Negative) Ur Leukocyte Esterase (Negative) Urine RBC (0-4) /hpf Urine WBC (0-5) /hpf Ur Epithelial Cells (0-5) /lpf Urine Bacteria (Negative) Adenovirus (PCR) (NotDetected) B. pertussis DNA (PCR) (NotDetected) B.parapertussis DNA PCR (NotDetected) C. pneumoniae DNA (PCR) (NotDetected) Coronavirus OC43 (PCR) (NotDetected) Coronavirus HKU1 (PCR) (NotDetected) Coronavirus 229E (PCR) (NotDetected) SARS-CoV-2 (PCR) (NotDetected) Coronavirus NL63 (PCR) (NotDetected) Human Metapneumovir PCR (NotDetected) Influenza Type A (PCR) (NotDetected) Influenza Type B (PCR) (NotDetected) M. pneumoniae (PCR) (NotDetected) Parainfluenza 1 (PCR) (NotDetected) Parainfluenza 2 (PCR) (NotDetected) Parainfluenza 3 (PCR) (NotDetected) Parainfluenza 4 (PCR) (NotDetected) RSV (PCR) (NotDetected) Entero/Rhino (PCR) (NotDetected) 01/17/23 01/17/23 01/17/23 Range/Units 12:00 12:00 12:00 WBC (4.8-10.8) K/ul RBC (4.70-6.10) M/uL Hgb (14.0-18.0) g/dl Hct (42.0-52.0) % MCV (80.0-100.0) fL MCH (25.0-34.0) pg MCHC (32.0-36.0) g/dL RDW Std Deviation (36.4-46.3) fL RDW Coeff of Norbert (11.5-14.5) % Plt Count (130-400) K/uL MPV (9.4-12.4) fL Immature Gran % (Auto) % Neut % (Auto) % Lymph % (Auto) % Bacon % (Auto) % Eos % (Auto) % Baso % (Auto) % Neut # (Auto) (1.40-6.50) K/uL Lymph # (Auto) (1.2-3.4) K/uL Bacon # (Auto) (0.11-0.59) K/uL Eos # (Auto) (0-0.50) K/uL Baso # (Auto) (0-0.2) K/uL Immature Gran # (Auto) (0.01-0.20) K/uL Toxic Vacuolation Dohle Bodies Polychromasia Echinocytes ESR 77 H (0-20) mm/hr PT 12.2 H (9.0-12.0) Seconds INR 1.1 (0.9-1.1) APTT 35.6 H (21.0-31.0) Seconds PTT Ratio 1.3 VBG pH (7.36-7.41) VBG pCO2 (38-50) mmHg VBG pO2 mmHg VBG HCO3 mmol/L VBG O2 Saturation % VBG Base Excess mEq/L Sodium (136-145) mmol/L Potassium (3.5-5.1) mmol/L Chloride (98-107) mmol/L Carbon Dioxide (21-32) mmol/L Anion Gap (3-11) BUN (6-23) mg/dl Creatinine (0.6-1.4) mg/dl Est Cr Clr Drug Dosing Est GFR ( Amer) ml/min Est GFR (Non-Af Amer) ml/min BUN/Creatinine Ratio (10-20) Glucose (70-99(Fasting)) mg/dl Lactate (0.4-2.0) mmol/L Calcium (8.6-10.3) mg/dl Magnesium (1.7-2.4) mg/dl Total Bilirubin (0.2-1.0) mg/dl Direct Bilirubin (0-0.2) mg/dl AST (13-39) U/L ALT (7-52) U/L Alkaline Phosphatase (34-104) U/L Ammonia (18-72) umol/L Troponin I High Sens (0-20) pg/ml C-Reactive Protein (0-0.5) mg/dl Total Protein (6.0-8.3) gm/dl Albumin (3.4-5.0) gm/dl Procalcitonin 3.95 H (0-0.5) ng/ml Urine Color Urine Appearance (Clear) Urine pH (4.5-7.5) Ur Specific Sidney (1.000-1.030) Urine Protein (Negative) Urine Glucose (UA) (Negative) Urine Ketones (Negative) Urine Blood (Negative) Urine Nitrite (Negative) Urine Bilirubin (Negative) Urine Urobilinogen (Negative) Ur Leukocyte Esterase (Negative) Urine RBC (0-4) /hpf Urine WBC (0-5) /hpf Ur Epithelial Cells (0-5) /lpf Urine Bacteria (Negative) Adenovirus (PCR) (NotDetected) B. pertussis DNA (PCR) (NotDetected) B.parapertussis DNA PCR (NotDetected) C. pneumoniae DNA (PCR) (NotDetected) Coronavirus OC43 (PCR) (NotDetected) Coronavirus HKU1 (PCR) (NotDetected) Coronavirus 229E (PCR) (NotDetected) SARS-CoV-2 (PCR) (NotDetected) Coronavirus NL63 (PCR) (NotDetected) Human Metapneumovir PCR (NotDetected) Influenza Type A (PCR) (NotDetected) Influenza Type B (PCR) (NotDetected) M. pneumoniae (PCR) (NotDetected) Parainfluenza 1 (PCR) (NotDetected) Parainfluenza 2 (PCR) (NotDetected) Parainfluenza 3 (PCR) (NotDetected) Parainfluenza 4 (PCR) (NotDetected) RSV (PCR) (NotDetected) Entero/Rhino (PCR) (NotDetected) 01/17/23 01/17/23 01/17/23 Range/Units 12:10 13:00 13:13 WBC (4.8-10.8) K/ul RBC (4.70-6.10) M/uL Hgb (14.0-18.0) g/dl Hct (42.0-52.0) % MCV (80.0-100.0) fL MCH (25.0-34.0) pg MCHC (32.0-36.0) g/dL RDW Std Deviation (36.4-46.3) fL RDW Coeff of Norbert (11.5-14.5) % Plt Count (130-400) K/uL MPV (9.4-12.4) fL Immature Gran % (Auto) % Neut % (Auto) % Lymph % (Auto) % Bacon % (Auto) % Eos % (Auto) % Baso % (Auto) % Neut # (Auto) (1.40-6.50) K/uL Lymph # (Auto) (1.2-3.4) K/uL Bacon # (Auto) (0.11-0.59) K/uL Eos # (Auto) (0-0.50) K/uL Baso # (Auto) (0-0.2) K/uL Immature Gran # (Auto) (0.01-0.20) K/uL Toxic Vacuolation Dohle Bodies Polychromasia Echinocytes ESR (0-20) mm/hr PT (9.0-12.0) Seconds INR (0.9-1.1) APTT (21.0-31.0) Seconds PTT Ratio VBG pH 7.30 L (7.36-7.41) VBG pCO2 38 (38-50) mmHg VBG pO2 42 mmHg VBG HCO3 19 mmol/L VBG O2 Saturation 65.9 % VBG Base Excess -7.1 mEq/L Sodium (136-145) mmol/L Potassium (3.5-5.1) mmol/L Chloride (98-107) mmol/L Carbon Dioxide (21-32) mmol/L Anion Gap (3-11) BUN (6-23) mg/dl Creatinine (0.6-1.4) mg/dl Est Cr Clr Drug Dosing Est GFR ( Amer) ml/min Est GFR (Non-Af Amer) ml/min BUN/Creatinine Ratio (10-20) Glucose (70-99(Fasting)) mg/dl Lactate (0.4-2.0) mmol/L Calcium (8.6-10.3) mg/dl Magnesium (1.7-2.4) mg/dl Total Bilirubin (0.2-1.0) mg/dl Direct Bilirubin (0-0.2) mg/dl AST (13-39) U/L ALT (7-52) U/L Alkaline Phosphatase (34-104) U/L Ammonia 27.0 (18-72) umol/L Troponin I High Sens (0-20) pg/ml C-Reactive Protein (0-0.5) mg/dl Total Protein (6.0-8.3) gm/dl Albumin (3.4-5.0) gm/dl Procalcitonin (0-0.5) ng/ml Urine Color Urine Appearance (Clear) Urine pH (4.5-7.5) Ur Specific Sidney (1.000-1.030) Urine Protein (Negative) Urine Glucose (UA) (Negative) Urine Ketones (Negative) Urine Blood (Negative) Urine Nitrite (Negative) Urine Bilirubin (Negative) Urine Urobilinogen (Negative) Ur Leukocyte Esterase (Negative) Urine RBC (0-4) /hpf Urine WBC (0-5) /hpf Ur Epithelial Cells (0-5) /lpf Urine Bacteria (Negative) Adenovirus (PCR) Not Detected (NotDetected) B. pertussis DNA (PCR) Not Detected (NotDetected) B.parapertussis DNA PCR Not Detected (NotDetected) C. pneumoniae DNA (PCR) Not Detected (NotDetected) Coronavirus OC43 (PCR) Not Detected (NotDetected) Coronavirus HKU1 (PCR) Not Detected (NotDetected) Coronavirus 229E (PCR) Not Detected (NotDetected) SARS-CoV-2 (PCR) Not Detected (NotDetected) Coronavirus NL63 (PCR) Not Detected (NotDetected) Human Metapneumovir PCR Not Detected (NotDetected) Influenza Type A (PCR) Not Detected (NotDetected) Influenza Type B (PCR) Not Detected (NotDetected) M. pneumoniae (PCR) Not Detected (NotDetected) Parainfluenza 1 (PCR) Not Detected (NotDetected) Parainfluenza 2 (PCR) Not Detected (NotDetected) Parainfluenza 3 (PCR) Not Detected (NotDetected) Parainfluenza 4 (PCR) Not Detected (NotDetected) RSV (PCR) Not Detected (NotDetected) Entero/Rhino (PCR) Not Detected (NotDetected) 01/17/23 Range/Units 13:45 WBC (4.8-10.8) K/ul RBC (4.70-6.10) M/uL Hgb (14.0-18.0) g/dl Hct (42.0-52.0) % MCV (80.0-100.0) fL MCH (25.0-34.0) pg MCHC (32.0-36.0) g/dL RDW Std Deviation (36.4-46.3) fL RDW Coeff of Norbert (11.5-14.5) % Plt Count (130-400) K/uL MPV (9.4-12.4) fL Immature Gran % (Auto) % Neut % (Auto) % Lymph % (Auto) % Bacon % (Auto) % Eos % (Auto) % Baso % (Auto) % Neut # (Auto) (1.40-6.50) K/uL Lymph # (Auto) (1.2-3.4) K/uL Bacon # (Auto) (0.11-0.59) K/uL Eos # (Auto) (0-0.50) K/uL Baso # (Auto) (0-0.2) K/uL Immature Gran # (Auto) (0.01-0.20) K/uL Toxic Vacuolation Dohle Bodies Polychromasia Echinocytes ESR (0-20) mm/hr PT (9.0-12.0) Seconds INR (0.9-1.1) APTT (21.0-31.0) Seconds PTT Ratio VBG pH (7.36-7.41) VBG pCO2 (38-50) mmHg VBG pO2 mmHg VBG HCO3 mmol/L VBG O2 Saturation % VBG Base Excess mEq/L Sodium (136-145) mmol/L Potassium (3.5-5.1) mmol/L Chloride (98-107) mmol/L Carbon Dioxide (21-32) mmol/L Anion Gap (3-11) BUN (6-23) mg/dl Creatinine (0.6-1.4) mg/dl Est Cr Clr Drug Dosing Est GFR ( Amer) ml/min Est GFR (Non-Af Amer) ml/min BUN/Creatinine Ratio (10-20) Glucose (70-99(Fasting)) mg/dl Lactate (0.4-2.0) mmol/L Calcium (8.6-10.3) mg/dl Magnesium (1.7-2.4) mg/dl Total Bilirubin (0.2-1.0) mg/dl Direct Bilirubin (0-0.2) mg/dl AST (13-39) U/L ALT (7-52) U/L Alkaline Phosphatase (34-104) U/L Ammonia (18-72) umol/L Troponin I High Sens (0-20) pg/ml C-Reactive Protein (0-0.5) mg/dl Total Protein (6.0-8.3) gm/dl Albumin (3.4-5.0) gm/dl Procalcitonin (0-0.5) ng/ml Urine Color Yellow Urine Appearance Turbid A (Clear) Urine pH 7.5 (4.5-7.5) Ur Specific Sidney 1.020 (1.000-1.030) Urine Protein 3+ H (Negative) Urine Glucose (UA) Negative (Negative) Urine Ketones Trace H (Negative) Urine Blood 2+ H (Negative) Urine Nitrite Negative (Negative) Urine Bilirubin 2+ H (Negative) Urine Urobilinogen Negative (Negative) Ur Leukocyte Esterase 3+ H (Negative) Urine RBC >30 H (0-4) /hpf Urine WBC >30 H (0-5) /hpf Ur Epithelial Cells 10-20 H (0-5) /lpf Urine Bacteria 3+ H (Negative) Adenovirus (PCR) (NotDetected) B. pertussis DNA (PCR) (NotDetected) B.parapertussis DNA PCR (NotDetected) C. pneumoniae DNA (PCR) (NotDetected) Coronavirus OC43 (PCR) (NotDetected) Coronavirus HKU1 (PCR) (NotDetected) Coronavirus 229E (PCR) (NotDetected) SARS-CoV-2 (PCR) (NotDetected) Coronavirus NL63 (PCR) (NotDetected) Human Metapneumovir PCR (NotDetected) Influenza Type A (PCR) (NotDetected) Influenza Type B (PCR) (NotDetected) M. pneumoniae (PCR) (NotDetected) Parainfluenza 1 (PCR) (NotDetected) Parainfluenza 2 (PCR) (NotDetected) Parainfluenza 3 (PCR) (NotDetected) Parainfluenza 4 (PCR) (NotDetected) RSV (PCR) (NotDetected) Entero/Rhino (PCR) (NotDetected) Administered Medications Sodium Chloride (Nss 1000ml) 1,000 mls @ 999 mls/hr IV .Q1H1M ONE Stop: 01/17/23 15:12 Last Admin: 01/17/23 14:31 Dose: 999 mls/hr Documented By: PRESLEY Discontinued Medications Sodium Chloride (Nss 1000ml) 1,000 mls @ 999 mls/hr IV .Q1H1M ONE Stop: 01/17/23 12:41 Last Infusion: 01/17/23 14:35 Dose: 0 mls/hr Documented By: Admin: 01/17/23 12:09 Dose: 999 mls/hr Documented By: PRESLEY Sodium Chloride (Nss 1000ml) 1,000 mls @ 999 mls/hr IV .Q1H1M ONE Stop: 01/17/23 12:51 Last Infusion: 01/17/23 14:35 Dose: 0 mls/hr Documented By: Admin: 01/17/23 12:10 Dose: 999 mls/hr Documented By: PRESLEY Piperacillin Sod/Tazobactam Sod (Zosyn) 4.5 gm in 120 mls @ 240 mls/hr IV NOW ONE Stop: 01/17/23 13:20 Last Infusion: 01/17/23 14:02 Dose: 0 mls/hr Documented By: Admin: 01/17/23 13:17 Dose: 240 mls/hr Documented By: PRESLEY Imaging Data Attestation: I personally reviewed and interpreted this imaging study as follows: My Impression: 1 view chest x-ray was obtained in the emergency department. My interpretation is no free air or definite infiltrate, final report below. CT of the brain was obtained in the emergency department. My interpretation is no intracranial hemorrhage or mass effect, final report below. Radiologist's Impression: Chest X-Ray 01/17/23 11:40 XR chest 1V portable CLINICAL HISTORY: Sepsis TECHNIQUE: Single frontal radiograph of the chest was obtained. Comparison: Comparison is made to chest radiograph 07/21/2021 FINDINGS: ACDF is seen. Defibrillator is noted with median sternotomy wires. Cardiomegaly is noted. The aortic arch is calcified. Prominence and cephalization of the vasculature is seen. No evidence of pleural effusion or pneumothorax. IMPRESSION: Cardiomegaly and mild pulmonary edema. ACT 112: Negative or not required by law. Electronically signed by: Tai Whipple M.D. 01/17/2023 12:28 PM Abdomen/Pelvis CT 01/17/23 11:41 CT abd pelvis wo con CLINICAL HISTORY: distended TECHNIQUE: Helical axial images of the abdomen and pelvis were obtained. Automated dose lowering techniques and/or adjustment according to patient size were utilized for this exam. This exam was performed without intravenous cont rast. COMPARISON: Comparison is made to CT abdomen pelvis 07/21/2021 FINDINGS: Lower chest: Bilateral pleural effusion is seen. Biatrial enlargement and cardiomegaly noted. Severe atherosclerosis is noted. Liver: Unremarkable. No focal lesions are seen. Gallbladder and biliary tree: Layering radiodense material is seen in the dependent portion of the likely representing sludge. No intra- or extrahepatic biliary ductal dilation. Pancreas: Unremarkable, no focal lesions. Spleen: Splenomegaly is noted, the spleen measures 16.2 cm. Adrenals: Unremarkable. Kidneys and ureters: Nonobstructive nephrolithiasis is seen. Horseshoe kidney is noted. Bladder: Suprapubic catheter is seen. Reproductive organs: Unremarkable. Bowel: Diverticulosis is seen without evidence of diverticulitis. The appendix is unremarkable. A duodenal diverticulum is seen. Lymph nodes Retroperitoneal: Unremarkable. Pelvic: Unremarkable. Mesenteric: Unremarkable. Peritoneum: Normal. Vessels: Atherosclerotic calcifications are seen. Abdominal wall: Unremarkable. Bones: Degenerative changes in the visualized spine. Posterior fixation hardware is seen spanning L1-S1. IMPRESSION: 1. No acute abnormalities and in particular no evidence of bowel obstruction. 2. Small bilateral pleural effusions. 3. Horseshoe kidney. Nonobstructive stones. ACT 112: Negative or not required by law. Electronically signed by: Tai Whipple M.D. 01/17/2023 12:[address] 01/17/23 11:41 CT SCAN OF THE BRAIN WITHOUT IV CONTRAST CLINICAL HISTORY: Change in mental status. COMPARISON STUDY: CT of the brain dated 05/06/2019. TECHNIQUE: Unenhanced axial CT scan of the brain is performed from the vertex to the skull base. A dose lowering technique was utilized adhering to the principles of ALARA. CT DOSE: 2208.50 mGy.cm FINDINGS: Brain parenchyma: There is age-related involutional change noting [id number] subcortical and periventricular microangiopathic disease. There is no hemorrhage, mass effect, or evidence of acute territorial ischemia by CT criteria. Childers-white matter differentiation is preserved. No extra-axial fluid collection is seen. Ventricles, sulci, cisterns: Prominent secondary to involutional change. Intracranial vasculature: There is atherosclerotic calcification of the cavernous carotid and vertebral arteries. Calvarium: Unremarkable. Soft tissues: Soft tissue edema is noted in the scalp, greatest posteriorly at the vertex. Sinuses and mastoids: There is trace mucosal thickening in the left maxillary antrum. Trace mucosal thickening is also seen within the ethmoid and sphenoid sinuses. There is a large right mastoid effusion, with fluid in the right middle ear. The left mastoid air cells are well pneumatized. Orbits: The bony orbits are grossly intact. There are bilateral ocular lens implants. IMPRESSION: There is no hemorrhage, mass effect, or evidence of acute territorial ischemia by CT criteria. ACT 112: Negative or not required by law. Electronically signed by: Vinicius Almaraz M.D. 01/17/2023 12:40 PM Discharge Plan Visit Data Chief Complaint: Lethargic Stated Complaint: LETHARGY, INFECTION IN R EYE, ULCER ON FOOT ED Provider: Zeke Avendano Discharge Problem: Acute alteration in mental status, PAULA (acute kidney injury), Acute pyelonephritis, Elevated troponin I level, Thrombocytopenia Patient Disposition: Being Evaluated by Hospitalist Forms Stand Alone Forms: My [facility] Prescriptions Prescriptions: No Action gabapentin 100 mg capsule 200 mg PO BID Qty: 120 11RF quetiapine [Seroquel] 25 mg tablet 25 mg PO HS Qty: 90 3RF metoprolol succinate 25 mg tablet extended release 24 hr 25 mg PO QAM Qty: 90 3RF tamsulosin [Flomax] 0.4 mg capsule 0.4 mg PO HS Qty: 90 3RF (DME) Mattress (Air or other) Misc See Rx Instructions .Route Qty: 1 0RF Rx Instructions: gel overlay for mattress atorvastatin 40 mg tablet 40 mg PO QAM Qty: 90 3RF (DME) Mattress (Air or other) Misc See Rx Instructions .Route Qty: 1 0RF Rx Instructions: STANDARD MATTRESS pantoprazole [Protonix] 40 mg tablet,delayed release (DR/EC) 40 mg PO BID Qty: 180 3RF Entresto 24-26 mg tablet 1 tab PO BID Qty: 180 3RF levothyroxine 75 mcg tablet 75 mcg PO DAILY Qty: 30 5RF glipizide 5 mg tablet extended release 24hr 5 mg PO DAILY Qty: 30 5RF finasteride [Proscar] 5 mg tablet 5 mg PO QAM Qty: 90 3RF bumetanide 1 mg tablet 1 mg PO QAM Qty: 90 3RF metformin 500 mg tablet extended release 24hr 500 mg PO BID Qty: 180 3RF ferrous sulfate 325 mg (65 mg iron) tablet,delayed release (DR/EC) 325 mg PO QAM insulin glargine [Lantus Solostar U-100 Insulin] 100 unit/mL (3 mL) insulin pen 18 unit subcut QPM Qty: 15 5RF (DME) pen needle, diabetic [BD Ultra-Fine Short Pen Needle] 31 gauge x 5/16" needle See Rx Instructions .Route Qty: 50 2RF Rx Instructions: As directed daily E11.9 melatonin 5 mg Tablet 5 mg PO HS ascorbic acid (vitamin C) [Vitamin C] 500 mg Tablet 500 mg PO QAM acetaminophen [Tylenol Extra Strength] 500 mg Tablet 1,000 mg PO TID PRN (Reason: Pain) aspirin [Aspir-81] 81 mg tablet,delayed release (DR/EC) 81 mg PO QAM cholecalciferol (vitamin D3) [Vitamin D3] 25 mcg (1,000 unit) Tablet 25 mcg PO QAM nystatin 100,000 unit/gram powder 1 applic topical BID PRN (Reason: .flare ups) sertraline 50 mg tablet 75 mg PO DAILY Referrals Referrals: Edd Alvarez MD [Primary Care Provider] -
[2023-01-17 12:20] LABS: Hematocrit (blood only) 31.1 % (42.0-52.0); Hemoglobin 10.5 g/dl (14.0-18.0); Mean Corpuscular Hemoglobin 30.8 pg (25.0-34.0); Mean Corpuscular Hgb Conc 33.8 g/dL (32.0-36.0); Mean Corpuscular Volume 91.2 fL (80.0-100.0); Platelet Count 89 K/uL (130-400); RDW Coefficient of Variation 14.9 % (11.5-14.5); RDW Standard Deviation 49.8 fL (36.4-46.3); Red Blood Count 3.41 M/uL (4.70-6.10); White Blood Count 22.48 K/ul (4.8-10.8)
--- NOTE | 2023-01-17 12:30 | XRay Report ---
XR chest 1V portable CLINICAL HISTORY: Sepsis TECHNIQUE: Single frontal radiograph of the chest was obtained. Comparison: Comparison is made to chest radiograph 07/21/2021 FINDINGS: ACDF is seen. Defibrillator is noted with median sternotomy wires. Cardiomegaly is noted. The aortic arch is calcified. Prominence and cephalization of the vasculature is seen. No evidence of pleural ef fusion or pneumothorax. IMPRESSION: Cardiomegaly and mild pulmonary edema. ACT 112: Negative or not required by law. Electronically signed by: Tai Whipple M.D. 01/17/2023 12:28 PM
[2023-01-17 12:38] LABS: Alanine Aminotransferase 24 U/L (7-52); Albumin Level 3.1 gm/dl (3.4-5.0); Alkaline Phosphatase 85 U/L (34-104); Anion Gap 15 (3-11); Aspartate Aminotransferase 27 U/L (13-39); BUN Creatinine Ratio 32.4 (10-20); Bilirubin Direct 0.3 mg/dl (0-0.2); Bilirubin,Total 0.9 mg/dl (0.2-1.0); Blood Urea Nitrogen 89 mg/dl (6-23); C Reactive Protein 29.84 mg/dl (0-0.5); Calcium 8.7 mg/dl (8.6-10.3); Carbon Dioxide 18 mmol/L (21-32); Chloride 99 mmol/L (98-107); Est GFR (African American) 25.9 ml/min; Est GFR (Non-African American) 22.3 ml/min; Glucose 220 mg/dl (70-99(Fasting)); Magnesium 1.1 mg/dl (1.7-2.4); Potassium 3.9 mmol/L (3.5-5.1); Sodium 132 mmol/L (136-145); Total Protein 6.6 gm/dl (6.0-8.3)
--- NOTE | 2023-01-17 12:43 | CT Scan Report ---
CT SCAN OF THE BRAIN WITHOUT IV CONTRAST CLINICAL HISTORY: Change in mental status. COMPARISON STUDY: CT of the brain dated 05/06/2019. TECHNIQUE: Unenhanced axial CT scan of the brain is performed from the vertex to the skull base. A do se lowering technique was utilized adhering to the principles of ALARA. CT DOSE: 2208.50 mGy.cm FINDINGS: Brain parenchyma: There is age-related involutional change noting [id number] subcortical and pe riventricular microangiopathic disease. There is no hemorrhage, mass effect, or evidence of acute ter ritorial ischemia by CT criteria. Childers-white matter differentiation is preserved. No extra-axial flui d collection is seen. Ventricles, sulci, cisterns: Prominent secondary to involutional change. Intracranial vasculature: There is atherosclerotic calcification of the cavernous carotid and vertebr al arteries. Calvarium: Unremarkable. Soft tissues: Soft tissue edema is noted in the scalp, greatest posteriorly at the vertex. Sinuses and mastoids: There is trace mucosal thickening in the left maxillary antrum. Trace mucosal t hickening is also seen within the ethmoid and sphenoid sinuses. There is a large right mastoid effusi on, with fluid in the right middle ear. The left mastoid air cells are well pneumatized. Orbits: The bony orbits are grossly intact. There are bilateral ocular lens implants. IMPRESSION: There is no hemorrhage, mass effect, or evidence of acute territorial ischemia by CT najma bauer. ACT 112: Negative or not required by law. Electronically signed by: Vinicius Almaraz M.D. 01/17/2023 12:40 PM
[2023-01-17 12:46] LABS: INR 1.1 (0.9-1.1); Partial Thromboplastin Ratio 1.3; Partial Thromboplastin Time 35.6 Seconds (21.0-31.0); Prothrombin Time 12.2 Seconds (9.0-12.0)
[2023-01-17 12:48] LABS: Troponin I High Sensitivity 2556.7 pg/ml (0-20)
[2023-01-17] MEDS ORDERED: PIPERACILLIN/TAZOBACTAM 4.5 GM/120 ML BAG IV ONE (12:51)
--- NOTE | 2023-01-17 12:51 | CT Scan Report ---
CT abd pelvis wo con CLINICAL HISTORY: distended TECHNIQUE: Helical axial images of the abdomen and pelvis were obtained. Automated dose lowering tech niques and/or adjustment according to patient size were utilized for this exam. This exam was perfor med without intravenous contrast. COMPARISON: Comparison is made to CT abdomen pelvis 07/21/2021 FINDINGS: Lower chest: Bilateral pleural effusion is seen. Biatrial enlargement and cardiomegaly noted. Severe atherosclerosis is noted. Liver: Unremarkable. No focal lesions are seen. Gallbladder and biliary tree: Layering radiodense material is seen in the dependent portion of the li brian representing sludge. No intra- or extrahepatic biliary ductal dilation. Pancreas: Unremarkable, no focal lesions. Spleen: Splenomegaly is noted, the spleen measures 16.2 cm. Adrenals: Unremarkable. Kidneys and ureters: Nonobstructive nephrolithiasis is seen. Horseshoe kidney is noted. Bladder: Suprapubic catheter is seen. Reproductive organs: Unremarkable. Bowel: Diverticulosis is seen without evidence of diverticulitis. The appendix is unremarkable. A duo denal diverticulum is seen. Lymph nodes Retroperitoneal: Unremarkable. Pelvic: Unremarkable. Mesenteric: Unremarkable. Peritoneum: Normal. Vessels: Atherosclerotic calcifications are seen. Abdominal wall: Unremarkable. Bones: Degenerative changes in the visualized spine. Posterior fixation hardware is seen spanning L1- S1. IMPRESSION: 1. No acute abnormalities and in particular no evidence of bowel obstruction. 2. Small bilateral pleural effusions. 3. Horseshoe kidney. Nonobstructive stones. ACT 112: Negative or not required by law. Electronically signed by: Tai Whipple M.D. 01/17/2023 12:49 PM
[2023-01-17 12:58] LABS: Basophils # (auto) 0.03 K/uL (0-0.2); Basophils % (auto) 0.1 %; Dohle Bodies 1+; Echinocytes 2+; Immature Granulocytes # (auto) 0.29 K/uL (0.01-0.20); Immature Granulocytes % (auto) 1.3 %; Lymphocytes # (auto) 0.39 K/uL (1.2-3.4); Lymphocytes % (auto) 1.7 %; Monocytes # (auto) 0.49 K/uL (0.11-0.59); Monocytes % (auto) 2.2 %; Neutrophils # (auto) 21.28 K/uL (1.40-6.50); Neutrophils % (auto) 94.7 %; Polychromasia 1+; Toxic Vacuolation 1+
[2023-01-17 13:20] LABS: Adenovirus PCR Not Detected (NotDetected); Bordetella parapertussis PCR Not Detected (NotDetected); Bordetella pertussis PCR Not Detected (NotDetected); Chlamydia pneumoniae PCR Not Detected (NotDetected); Coronavirus 229E PCR Not Detected (NotDetected); Coronavirus CoV-2 (COVID19)PCR Not Detected (NotDetected); Coronavirus HKU1 PCR Not Detected (NotDetected); Coronavirus NL63 PCR Not Detected (NotDetected); Coronavirus OC43PCR Not Detected (NotDetected); Human Metapneumovirus PCR Not Detected (NotDetected); Influenza A PCR Not Detected (NotDetected); Influenza B PCR Not Detected (NotDetected); Mycoplasma pneumoniae PCR Not Detected (NotDetected); Parainfluenza Virus 1 PCR Not Detected (NotDetected); Parainfluenza Virus 2 PCR Not Detected (NotDetected); Parainfluenza Virus 3 PCR Not Detected (NotDetected); Parainfluenza Virus 4 PCR Not Detected (NotDetected); Respiratory Syncytial VirusPCR Not Detected (NotDetected); Rhinovirus/Enterovirus PCR Not Detected (NotDetected)
[2023-01-17 13:31] LABS: Base Excess VBG -7.1 mEq/L; HCO3 VBG 19 mmol/L; Oxygen Saturation VBG 65.9 %; PCO2 VBG 38 mmHg (38-50); PO2 VBG 42 mmHg
[2023-01-17 14:05] LABS: Appearance Urine Turbid (Clear); Bilirubin Urine 2+ (Negative); Blood Urine 2+ (Negative); Color Urine Yellow; Glucose Urine UA Negative (Negative); Ketones Urine Trace (Negative); Leukocyte Esterase Urine 3+ (Negative); Nitrite Urine Negative (Negative); Protein Urine 3+ (Negative); Urobilinogen Urine Negative (Negative); pH Urine 7.5 (4.5-7.5)
[2023-01-17 14:09] LABS: Bacteria Urine 3+ (Negative); RBC Urine >30 /hpf (0-4); WBC Urine >30 /hpf (0-5)
--- NOTE | 2023-01-17 14:49 | History & Physical Report ---
Date of Service January 17, 2023 Assessment & Plan (1) Sepsis: Plan: Sepsis with altered mental status, suspect due to UTI Presents with leukocytosis of 22, ESR 77, lactate 2.2, PAULA Lactate on admit 2.2 Patient has multiple potential sources of infection. He has a suprapubic catheter due to chronic outlet obstruction. Generally has difficulty with sanitization and care of this at home. Has had some erythema/discharge from this recently, UA is always infected appearing due to indwelling catheter. Patient has upper chest erythema, this is in a contact distribution which appears in the exposed area of the chest but spares the lower abdomen. There is no tenderness or warmth to this. He has left upper anterior chest does have yellow-colored crust/scale surrounding an annular area of erythema, notes that this has been worse in the last few days. He has multiple right lower extremity wounds. Has a posterior calf wound, distal lateral right lower leg wound, right lateral malleoli are wound, and heel superficial wound. Of these the proximal calf ulceration does have some purulent material and some surrounding scant erythema, other wounds are without erythema/discharge. CTlower extremity ordered for evaluation of osteo and deep infection given multiple wounds and septic appearance. w/ sepsis, chronic poor healing wounds, and difficulty with hygiene/concern for chronic wound contamination and above will cover broadly with cefepime, vancomycin, and Flagyl. History is limited, patient poorly oriented. Denies any infectious symptoms but has poor recall hs-troponin 2556 Procalcitonin 3.95 consistent with sepsis CRP 29 UA is infected appearing CThead: No acute findings CTA/P: Small bilateral pleural effusions, horseshoe kidney, no acute abnormalities or bowel obstruction CXR: Cardiomegaly and mild pulmonary edema On arrival was hypotensive to 94/59, normotensive following 2 L normal saline Empirically treated with Zosyn in ER Patient is with heart failure reduced ejection fraction, clinically with PAULA, minimal lower extremity edema, and hypotension appears intravascularly depleted. CXR is with pulmonary edema? Overload versus systolic failure. High- sensitivity troponin is elevated, attempting to obtain last echo for comparison. Last echo available was prebypass and 30-35% in 2019. Lactate has improved slightly with fluids, will continue antibiotics and fluid boluses as clinically indicated for hypotension. If rising lactate/persistent hypotension with evidence of fluid overload due to his concurrent heart failure may need pressor augmentation. At time of hospitalist consultation as lactate is improving he is normotensive can defer this. Stat echo is pending for interval EF change VBG 7.30/38/42/19, partially compensated respiratory acidosis Heart failure with reduced ejection Last echo 2018, this was pre-bypass. EF 30-35% at that time EKG: Sinus with first-degree AV block, PVCs. Right bundle branch block. QTc 531. Compared to 07/2021 diffuse QRS morphology change Follows with cardiology for CHF. 09/2022 sedentary, but without symptoms of decompensated failure. Borderline low pressures at baseline and did not tolerate spironolactone. On DAPT plus Plavix post bypass, no history of stents. DELATORRE to LAD, FERNANDO to acute marginal, radial graft to OM was [facility] 2002 has a single-chamber ICD. Magnesium 1.1, IV and p.o. repletion ordered. Optimize potassium 4.0, magnesium 2.0 Patient with elevated troponin although no chest pain or preceding anginal symptoms to this admission. Suspect this is demand in the setting of sepsis. Given that patient is both hypotensive with elevated lactate but evidence of pulmonary edema with sepsis, updated echo was obtained. Patient did respond well to 2 L of fluids with improvement lactate and blood pressure, however is at risk for volume overload due to reduced EF. If patient were to show signs of progressive fluid overload and still have hypotension/uptrending perfusion markers would require ICU level of care and pressors at that time. This is not required at time of hospitalist reassessment, will admit to PCU Chronic bladder outlet obstruction Suprapubic catheter appears to be functioning normally. Patient has had issues with hygiene of this in the past UA is chronically infected appearing due to catheter Follow for culture Antibiotics as above No signs of obstructed catheter at time of assessment PAULA Baseline creatinine around 1.92.2, admitting creatinine 2.75 -With sepsis S/p 2 L saline in ER. Defer additional aggressive boluses due to pulmonary edema and history of heart failure BMP daily Degenerative disc disease, lumbar disc disease A CDI C3-4, C7 corpectomy, removal of C7 mass Past history of lumbar decompression and fusion complicated by subsequent abscesses and infection, stable following recurrent incision and drainage several years ago. - No back pain on admit Uncontrolled type II DM On outpatient glargine 18 units, With chronic right heel wounds and nephropathy, retinopathy Basal bolus based on home glargine entered Goal BSG 249263 Glucose AC/at bedtime or every 6 hours while NPO Pharmacy consulted for assistance in management while patient is septic With history of left BKA. Stump is with a 1 cm area of erythema and ulceration, no tenderness/warmth Hyperlipidemia: Continue statin, hold if daptomycin is started DVT prophylaxis: Heparin Diet: N.p.o. pending improvement in mentation, then DM2/heart healthy/low-sodium Disposition: PCU CODE STATUS: Full code, discussed and confirmed with patient and his (2) PAULA (acute kidney injury): (3) Elevated troponin I level: (4) Thrombocytopenia: (5) Stage II pressure ulcer of right hip: (6) Type 2 diabetes mellitus: (7) ICD (implantable cardioverter-defibrillator) in place: (8) CAD (coronary artery disease): (9) Chronic systolic heart failure: (10) PAD (peripheral artery disease): (11) Hypothyroidism: (12) Carotid artery stenosis: (13) History of cardiac cath: (14) HTN (hypertension): History of Present Illness Primary Care Provider: Edd Alvarez MD Leandro Cooper is a 72-year-old male with a past medical history of uncontrolled type 2 diabetes mellitus, ischemic cardiomyopathy with triple-vessel bypass reduced ejection fraction and ICD, peripheral artery disease, ANTONIO, BPH, CKD 3, diabetic ulcers, BKA of the left lower extremity History is limited, patient is a poor historian. Is not oriented to year, place, or month. He is oriented to name. He denies chest pain, chest pressure, abdominal pain, extremity pain, fever, chills at bedside. Collateral is collected from patient's . She reports that he is generally bedbound 90% of the time at home, has difficulty with care and hygiene and notes he frequently spills material on his suprapubic catheter and his lower extremity wounds. Sees wound care about every 3 weeks but has chronic right lower extremity wounds. He has had a rash on his chest, in the last 2 to 3 days. Has also had crust which started in the left eye and now spread to the right eye. He has had a small area of yellow skin irritation on his left upper shoulder. In addition to this his suprapubic catheter output has been darker and more foul-smelling with concern for material and slight erythema around skin site. He has not complained of any shortness of breath or chest pain in the preceding weeks/months, patient is very limited in activity at baseline. He gets care from [facility], PCP is Dr. Alvarez. Sees Dr. Polk with urology, superacute catheter was placed for chronic outlet obstruction. He does have a history of lumbar decompression fusion surgery which is complicated by infections requiring I&D now stable and patient has not been with recent exacerbation of his back pain. Patient recently sent mobile telemetry to cardiology company for follow-up, but has not heard back from this and does not know the results of this. Notes that this is followed due to his history of heart failure and he has an ICD in place. Patient is normally oriented to place and name. He is sometimes not oriented to date, his notes that she does work with dementia patient is a does not think he has dementia more just depression and bedbound disorientation from not paying attention to these measures very often. Sees Dr. Prado for cardiology as outpatient. Former tobacco use, no recent alcohol use. He did not take morning medications since this morning Medical History: Reviewed Medications: Reviewed Surgical History: Reviewed Family history: Reviewed Allergies: Reviewed Social History: Has no Code Status: Full code Allergies Allergy/AdvReac Type Severity Reaction Status Date / Time sacubitril [From Entresto] AdvReac Intermediate problems Verified 01/08/23 10:32 with bp valsartan [From Entresto] AdvReac Intermediate problems Verified 01/08/23 10:32 with bp lorazepam AdvReac Mild Confusion Verified 01/08/23 10:32 Home Medications Medication Instructions Recorded Confirmed Type ascorbic acid (vitamin C) 500 mg 500 mg PO QAM 03/23/19 01/17/23 History tablet (Vitamin C) melatonin 5 mg tablet 5 mg PO HS 03/23/19 01/17/23 History ferrous sulfate 325 mg (65 mg 325 mg PO QAM 04/27/19 01/17/23 History iron) tablet,delayed release acetaminophen 500 mg tablet 1,000 mg PO TID PRN Pain 10/07/19 01/17/23 History (Tylenol Extra Strength) aspirin 81 mg tablet,delayed 81 mg PO QAM 04/12/20 01/17/23 History release (Aspir-) cholecalciferol (vitamin D3) 25 25 mcg PO QAM 07/18/21 01/17/23 History mcg (1,000 unit) tablet (Vitamin D3) gabapentin 100 mg capsule 200 mg PO BID #120 caps 01/17/22 01/17/23 Rx quetiapine 25 mg tablet (Seroquel) 25 mg PO HS #90 tabs 01/17/22 01/17/23 Rx metoprolol succinate 25 mg 25 mg PO QAM #90 tabs 01/23/22 01/17/23 Rx tablet,extended release 24 hr tamsulosin 0.4 mg capsule (Flomax) 0.4 mg PO HS #90 caps 02/27/22 01/17/23 Rx Mattress (Air or other) #1 ea 04/27/22 01/17/23 Rx atorvastatin 40 mg tablet 40 mg PO QAM #90 tabs 05/18/22 01/17/23 Rx Mattress (Air or other) #1 ea 07/04/22 01/17/23 Rx pantoprazole 40 mg tablet,delayed 40 mg PO BID #180 tabs 07/10/22 01/17/23 Rx release (Protonix) sacubitril 24 mg-valsartan 26 mg 1 tab PO BID #180 tabs 08/18/22 01/17/23 Rx tablet (Entresto) glipizide 5 mg tablet, extended 5 mg PO DAILY #30 tabs 09/13/22 01/17/23 Rx release 24 hr levothyroxine 75 mcg tablet 75 mcg PO DAILY #30 tabs 09/13/22 01/17/23 Rx pen needle, diabetic 31 gauge x #50 ea 10/22/22 01/17/23 Rx /16" (BD Ultra-Fine Short Pen Needle) insulin glargine 100 unit/mL (3 18 unit (0.18 mL) subcut QPM #15 mL 12/28/22 01/17/23 Rx mL) subcutaneous pen (Lantus Solostar U-100 Insulin) bumetanide 1 mg tablet 1 mg PO QAM #90 tabs 12/31/22 01/17/23 Rx finasteride 5 mg tablet (Proscar) 5 mg PO QAM #90 tabs 12/31/22 01/17/23 Rx metformin 500 mg tablet,extended 500 mg PO BID #180 tabs 12/31/22 01/17/23 Rx release 24hr nystatin 100,000 unit/gram topical 1 applic topical BID PRN .flare ups 01/17/23 01/17/23 History powder sertraline 50 mg tablet 75 mg PO DAILY 01/17/23 01/17/23 History Past Med/Surg History Medical History Abscess in epidural space of lumbar spine RESOLVED PER PATIENT WITH SURGERIES BUT RESULTED IN NEUROGENIC BLADDER. Anemia Anxiety Bowel and bladder incontinence CAD (coronary artery disease) CABG x3 (approx 2000); cardiac arrest 2011 s/p cervical surgery; NSTEMI 07/2018 post op lumbar surgery Carotid artery stenosis less than 50% stenosis right ICA per last imaging-neck CTA 08/2018 Chronic kidney disease, stage III (moderate) Chronic systolic heart failure [employer] 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 Admitted [facility] 10/18/11 for onset of incapacitating cervical myelopathy. Spinal tap showed [employer] Lyme disease, MRI showed severe spinal cord compression at C3-4 with myelomalacia and intramedullary mass. Pt had c-spine surgery, subsequent prolonged hospital admission, complicated post-op course- including cardiac arrest Depression Diabetic peripheral neuropathy Disc degeneration, lumbar Diverticulosis Dyslipidemia Dysphagia resolved per pt History of COVID-19 diagnosed 05/28/20 via HOME TEST ONLY--severe diarrhea/cough/fever/loss of smell--no issues now History of non-ST elevation myocardial infarction (NSTEMI) 2000; 2018 HTN (hypertension) Hypothyroidism ICD (implantable cardioverter-defibrillator) in place [employer]--ICD replacement done 09/01/20 @ [facility] by Dr. 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 Hollins- had post op respiratory failure requiring trach and subsequent cardiac arres requiring one shock V fib- AICD implanted Type 2 diabetes mellitus per noncompliant with insulin UTI (urinary tract infection), bacterial Wheelchair confinement per does not get out of bed without tien lift--needs wheelchair Surgical History H/O cervical spine surgery ACDI C3-4, C7 corpectomy, removal of C7 intramedullary mass.> ROM IS OK PER PATIENT H/O sinus surgery History of cardiac cath 07/2018 [facility]. Severe multivessel morongo coronary artery disease 99% subtotal occlusion in proximal ramus with distal NEMESIO I flow (thought to be acute culprit vessel) -100% chronic mid LAD occlusion Diffuse mid circumflex, 80% proximal OM 2 Sequential mid RCA 95, 90% stenosis 2. Widely patent DELATORRE to LAD. Patent FERNANDO to very small diffusely diseased acute marginal. Occluded radial graft to OM. Medical MGMT recommended. History of cataract extraction with lens replacement History of colonoscopy History of esophagogastroduodenoscopy (EGD) History of incision and drainage Lumbar spine on 08/11/18; complicated by difficult intubation with only #6.5 ETT able to be placed and patient kept intubated post op Lumbar spine again 09/10/2018, ETT#7.0 with difficulty. Lumbar spine 10/09/2018, ETT#7.0, poor view bougie used. Anesthesia postop note: "still requiring phenyelphrine drip to maintain BP. Maintaining O2 sats with oxymask. Case discussed with ICU adult health clinical nurse specialist, Dr. Mazariegos. Dr. Mazariegos updated with patients PMH including his cardiac comorbidities and his intraop course, including the blood transfusion. Dr. Mazariegos accepting patient for ICU management post op." Left heel 02/06/2019: LMA#5. History of lumbar spinal fusion 07/25/2018: glidescope #3, ETT#8.0. CHF and NE post-op. History of lumbar surgery 09/10/18 Glidescope 3 okay visualization but difficulty passing ETT, unable to pass 8.0, able to pass 7.0 with some difficulty History of tracheostomy CLOSED 8 YRS AGO Hx of CABG 06/2001 [facility] delatorre to lad, fernando to rca marginals and left radical artery to left circ Hx of foot surgery [place] MAY 2019 Hx of tonsillectomy Hx of transurethral resection of prostate S/P PICC central line placement hx of S/P triple vessel bypass [facility] 2002- (DELATORRE to LAD, FERNANDO to Acute Marginal, Radial Graft to OM) Status post below-knee amputation of left lower extremity in setting of osteomyelitis and sepsis 08/14/19: LMA#4 + PNB. I&D 10/09/2019: LMA#4. No issues per anesthesia postop progress note. Family History Mother , age 68 of COPD and respiratory issues COPD (chronic obstructive pulmonary disease) Father , in his 40s of an NE Myocardial infarction Family/Other Coronary heart disease Sister Other specified health status Other Diabetes Hypertension No pertinent family history Denies family history of Prostate cancer Breast cancer Colorectal cancer Social History Smoking Status: Unknown if ever smoked Second Hand Exposure: No; Do You Dip or Chew Tobacco: No; Hx Alcohol Use: No Hx Substance Use: No Preferred Language: Kinyarwanda Communication Ability: Effective Communication Ability Comment: confusion Visual Impairment: No Limitations Hearing Ability: Normal Cane Loader Required: No Beliefs That Will Affect Care: None marital status: Current Living Situation: Spouse and Family Current Living Situation Comment: lives with , son, daughter in law and granddaughter 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al status: retired and disabled 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: 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 PERLAA. [place] with yellow crust bilaterally. No injection/erythema. Pulm: Diminished, grossly clear. Reduced air movement in bases Symmetrical chest rise. No increased work of breathing. No respiratory distress. Cardiac: regular, slightly tachycardic. +sm. Radial pulses intact and symmetrical. Abdominal: Softly distended. No guarding/rebound. BS present. : Suprapubic catheter present. Trace erythema at site. Urine clouded, dark yellow Ext: Left BKA with 1 cm superficial ulcerated lesion, small surrounding amount o f eschar. Right calf with 3 cm purulent annular lesion. Right lower extremity distal to calf with small 1 cm ulcer without erythema/discharge/purulence, right lateral malleoli are ulcer without purulence/discharge. Right heel with superficial ulcer no erythema/purulence Results & Data Results & Data Vital Signs (Past 12 Hours) Vital Signs Temp Pulse Resp BP Pulse Ox O2 Del Method O2 Flow Rate 01/17/23 13:50 90 20 96 01/17/23 13:40 98 H 20 95 01/17/23 13:30 94 H 20 93 01/17/23 13:30 113/78 01/17/23 13:20 96 H 20 96 01/17/23 13:10 100 H 22 94 01/17/23 13:00 92 H 20 94 01/17/23 13:00 115/73 01/17/23 12:50 102 H 20 95 01/17/23 12:40 102 H 20 95 01/17/23 12:36 109 H 21 94 01/17/23 12:10 105 H 20 94 01/17/23 12:00 99 H 20 94 01/17/23 12:00 115/64 01/17/23 11:50 102 H 24 01/17/23 11:40 99 H 20 95 01/17/23 11:31 105 H 20 93 01/17/23 11:31 121/65 01/17/23 12:16 100 H 01/17/23 12:03 112 H 94 01/17/23 12:03 94 Room Air 0 01/17/23 11:32 37.4 C 112 H 17 121/65 94 Room Air PG Care Time/CCT Total # of Minutes Spent Total Time Spent with Patient: Total time spent is greater than 50% in coordination of care (as documented) at patient's floor/unit and/or counseling patient: Coding Level of Care Code 27523 INT INP/OBS CARE 375MIN Diagnoses Sepsis A41.9 PAULA (acute kidney injury) N17.9 Elevated troponin I level R77.8 Thrombocytopenia D69.6 Stage II pressure ulcer of right hip L89.212 Type 2 diabetes mellitus E11.52; Z79.4 Diabetes mellitus intermission coordinator insulin use: with intermission coordinator use Diabetes mellitus complication status: with circulatory complication Diabetes mellitus complication detail: with peripheral angiopathy with gangrene ICD (implantable cardioverter-defibrillator) in place Z95.810 CAD (coronary artery disease) I25.10 Coronary Disease-Associated Artery/Lesion type: morongo artery [place] vs. transplanted heart: morongo heart Associated angina: without angina Chronic systolic heart failure I50.22 PAD (peripheral artery disease) I73.9 Hypothyroidism E03.9 Hypothyroidism type: acquired Carotid artery stenosis I65.29 History of cardiac cath Z98.890 HTN (hypertension) I10 Hypertension type: essential hypertension (6) Type 2 diabetes mellitus Diabetes mellitus intermission coordinator insulin use: with intermission coordinator use Diabetes mellitus complication status: with circulatory complication Diabetes mellitus complication detail: with peripheral angiopathy with gangrene Qualified Code(s): E11.52 - Type 2 diabetes mellitus with diabetic peripheral angiopathy with gangrene; Z79.4 - superintendent container terminal (current) use of insulin (8) CAD (coronary artery disease) Coronary Disease-Associated Artery/Lesion type: morongo artery [place] vs. transplanted heart: morongo heart Associated angina: without angina Qualified Code(s): I25.10 - Atherosclerotic heart disease of morongo coronary artery without angina pectoris (11) Hypothyroidism Hypothyroidism type: acquired Qualified Code(s): E03.9 - Hypothyroidism, unspecified (14) HTN (hypertension) Hypertension type: essential hypertension Qualified Code(s): I10 - Essential (primary) hypertension
[2023-01-17] MEDS ORDERED: POTASSIUM CHLORIDE CRTAB 20 MEQ TABCR PO STA (15:03)
[2023-01-17] MEDS ORDERED: VANCOMYCIN CONSULT ACTIVE PRN (15:43)
[2023-01-17] MEDS ORDERED: CEFEPIME 20 ML IV STA (16:05)
[2023-01-17] MEDS ORDERED: VANCOMYCIN HCL 2,000 MG in SODIUM CHLORIDE 0.9% 500 ML IV ONE (16:15)
[2023-01-17] MEDS: MAGNESIUM SULFATE / D5W 1 GM/100 ML BAG IV SCH ×3 (16:40→20:12)
[2023-01-17] MEDS: POTASSIUM CHLORIDE / WTR 10 MEQ/100 ML PLCT IV SCH ×2 (16:40→17:48)
[2023-01-17] MEDS: metroNIDAZOLE 500 MG/100 ML BAG IV SCH (16:50)
--- NOTE | 2023-01-17 17:03 | Electrocardiogram Report ---
Test Reason : Blood Pressure : / mmHG Vent. Rate : 101 BPM Atrial Rate : 101 BPM P-R Int : 224 ms QRS Dur : 176 ms QT Int : 410 ms P-R-T Axes : 063 255 068 degrees QTc Int : 531 ms Sinus tachycardia with 1st degree A-V block with occasional Premature ventricular complexes and Fusio n complexes Right bundle branch block Abnormal ECG Confirmed by Edd Shen ([id number]) on 01/17/2023 5:03:02 PM Referred By: Confirmed By:Franky Shen
--- NOTE | 2023-01-17 17:26 | CT Scan Report ---
CT SCAN OF THE RIGHT TIBIA AND FIBULA WITHOUT IV CONTRAST CLINICAL HISTORY: Sepsis. Calf ulcer. COMPARISON STUDY: No priors. TECHNIQUE: CT scan of the right tibia and fibula is performed from the distal femur to the ankle. Megha ges reviewed in the axial, sagittal, and coronal planes. IV contrast was not administered for this ex amination. A dose lowering technique was utilized adhering to the principles of ALARA. Note that inte rpretation is suboptimal without plain film correlate. CT DOSE: 290.96 mGy.cm FINDINGS: The skeletal structures are heterogeneously osteopenic. There is no evidence of tibial or f ibular fracture. No erosive change is seen. The knee and ankle joints are grossly maintained. There i s chronic posttraumatic deformity of the distal fibula. A wound is seen within the posterolateral sof t tissues of the mid calf on axial image #164. There is no evidence of fluid collection on this unenh anced examination. Advanced atherosclerotic calcification is observed in the regional arteries. Soft tissue edema and trace subcutaneous fluid is present throughout the right leg. There is generalized a trophy of the regional musculature. No soft tissue gas is seen. IMPRESSION: 1. No acute bony abnormality is identified. 2. Soft tissue edema and trace subcutaneous fluid is seen throughout the right leg. Correlate clinica lly for evidence of cellulitis. 3. A wound is seen in the posterolateral aspect of the mid calf. 4. No fluid collection is identified to suggest abscess on this unenhanced examination. ACT 112: Negative or not required by law. Dictated: 01/17/2023 4:38 PM Transcribed: 01/17/2023 5:01 PM Messi [id number] [email or web address] Electronically signed by: Vinicius Almaraz M.D. 01/17/2023 5:25 PM
--- NOTE | 2023-01-17 17:30 | XCELERA ---
[id number] [id number]
--- NOTE | 2023-01-17 17:38 | Pharmacy Report ---
Pharmacy PK ABX Note - Date of Service January 17, 2023 - Assessment and Plan Assessment 72 year old M receiving cefepime/vancomycin/metronidazole for treatment of sepsis/probable UTI. Pertinent microbiologic data includes: Urine analysis (positive for leukocyte esterase, WBCs, and bacteria, blood and urine cultures pending. Day # 1 of antimicrobial therapy. Plan Vancomycin * Loading dose: 2000 mg IV x 1 * Will dose vancomycin per levels due to acute kidney injury * Random level ordered for: 01/18/23 with AM labs Pharmacy will continue to follow and will adjust dose/frequency as necessary. Thank you.
[2023-01-17] MEDS ORDERED: PHARMACY GLYCEMIC MGMT CONSULT PRN (19:06)
[2023-01-17] MEDS ORDERED: ACETAMINOPHEN 500 MG TAB PO PRN (19:06)
[2023-01-17] MEDS ORDERED: GLUCOSE 40% GEL 15 GM TUBE PO PRN (19:06)
[2023-01-17] MEDS ORDERED: GLUCOSE 10 TAB/TUBE PO PRN (19:06)
[2023-01-17] MEDS ORDERED: GLUCAGON FOR INJ 1 MG VIAL SQ PRN (19:06)
[2023-01-17] MEDS ORDERED: CARBOHYDRATES FOR HYPOGLYCEMIA PO PRN (19:06)
[2023-01-17] MEDS ORDERED: DEXTROSE 50% 50 ML SYRINGE IV PRN (19:06)
[2023-01-17] MEDS: ERYTHROMYCIN OP OINT 5 MG/GM 3.5 GM TUBE OP SCH ×2 (20:06→23:33)
[2023-01-17] MEDS: PANTOprazole 40 MG TAB PO SCH (20:09)
[2023-01-17] MEDS: QUEtiapine FUMARATE 25 MG TABLET PO SCH (20:09)
[2023-01-17] MEDS: GABAPENTIN 100 MG CAP PO SCH (20:09)
[2023-01-17] MEDS: MAGNESIUM OXIDE 400 MG TAB PO SCH (20:09)
[2023-01-17] MEDS: INSULIN ASPART PER UNIT CHARGE SC SCH (20:46)
[2023-01-17] MEDS: LANTUS PER UNIT CHARGE SQ SCH (20:47)
[2023-01-17 20:52] LABS: Base Excess VBG -8.4 mEq/L; HCO3 VBG 17 mmol/L; Oxygen Saturation VBG < 60.0 %; PCO2 VBG 35 mmHg (38-50); PO2 VBG 34 mmHg
[2023-01-17] MEDS ORDERED: LANTUS PER UNIT CHARGE SQ SCH (21:00)
[2023-01-17] MEDS ORDERED: MELATONIN 3 MG TAB PO SCH (21:00)
[2023-01-17] MEDS ORDERED: TAMSULOSIN HCL 0.4 MG CAP PO SCH (21:00)
[2023-01-17] MEDS ORDERED: SODIUM CHLORIDE 0.9% 1000ML 500 ML IV ONE (23:15)
[2023-01-18] MEDS ORDERED: SODIUM CHLORIDE 0.9% 1000ML 250 ML IV ONE ×3 (00:10→08:00)
[2023-01-18 00:16] LABS: A calco-baum cmplx NotReported Not Detected (NotDetected); Bact fragilis Not Reported Not Detected (NotDetected); C auris Not Reported Not Detected (NotDetected); Calbicans Not Reported Not Detected (NotDetected); Candida glabrata Not Reported Not Detected (NotDetected); Candida krusei Not Reported Not Detected (NotDetected); Cneoformans/gatti Not Reported Not Detected (NotDetected); Cparapsilosis Not Reported Not Detected (NotDetected); Ctropicalis Not Reported Not Detected (NotDetected); E cloacae compx Not Reported Not Detected (NotDetected); Efaecalis Not Reported Not Detected (NotDetected); Efaecium Not Reported Not Detected (NotDetected); Enterobacterales Not Reported Not Detected (NotDetected); Escherichia coli Not Reported Not Detected (NotDetected); H influenzae Not Reported Not Detected (NotDetected); K aerogenes Not Reported Not Detected (NotDetected); Koxytoca Not Reported Not Detected (NotDetected); Kpneumoniae grp Not Reported Not Detected (NotDetected); Lmonocyt Not Reported Not Detected (NotDetected); N meningitidis Not Reported Not Detected (NotDetected); P aeruginosa Not Reported Not Detected (NotDetected); Proteus spp Not Reported Not Detected (NotDetected); Salmonella spp Not Reported Not Detected (NotDetected); Smarcescens Not Reported Not Detected (NotDetected); Staph lugdunensis Not Reported Not Detected (NotDetected); Staph spp. Not Reported Not Detected (NotDetected); Staphaureus Not Reported Not Detected (NotDetected); Staphepi Not Reported Not Detected (NotDetected); Stenmaltophilia Not Reported Not Detected (NotDetected); Strep agal(GrpB) Not Reported Not Detected (NotDetected); Strep pneum Not Reported Not Detected (NotDetected); Strep pyog (GrpA) Not Reported DETECTED (NotDetected); Strep spp Not Reported DETECTED (NotDetected)
[2023-01-18 00:23] LABS: Streptococcus pyogenes (GrpA) DETECTED (NotDetected); Streptococcus spp DETECTED (NotDetected)
[2023-01-18] MEDS: SODIUM CHLORIDE 0.9% 1000ML 1,000 ML IV SCH ×2 (00:23→00:25)
[2023-01-18 00:54] LABS: Base Excess VBG -7.4 mEq/L; HCO3 VBG 18 mmol/L; Oxygen Saturation VBG 62.3 %; PCO2 VBG 36 mmHg (38-50); PO2 VBG 37 mmHg; pH VBG 7.31 (7.36-7.41)
[2023-01-18] MEDS ORDERED: SODIUM CHLORIDE 0.9% 1000ML 1,000 ML IV SCH (01:13)
[2023-01-18] MEDS: metroNIDAZOLE 500 MG/100 ML BAG IV SCH ×2 (01:17→08:05)
[2023-01-18] MEDS: CEFEPIME 1,000 MG in SYRINGE 0 ML IV SCH ×2 (04:58→16:15)
[2023-01-18] MEDS ORDERED: SODIUM CHLORIDE 0.9% 1000ML 500 ML IV ONE (05:22)
[2023-01-18] MEDS: ERYTHROMYCIN OP OINT 5 MG/GM 3.5 GM TUBE OP SCH ×4 (05:44→23:58)
[2023-01-18] MEDS: LEVOTHYROXINE SODIUM 75 MCG TABLET PO SCH (05:44)
--- NOTE | 2023-01-18 06:19 | Communication Note ---
Date of Service: January 18, 2023 Septic picture on broad spectrum abx. Patient has received 4.5L NSS since arrival and continues on maintenance @ 100. He is oliguric. Suprapubic cathater in place and bladder scan <20. He has h/o HFrEF. BPs sustaining in 80s systolic. Repeat CXR appears similar to admission. Lung sounds mildly diminished but without rales. Need to monitor BP closely. Now getting 1 bag albumin in addition. Resident Activity Tracking Resident Involvement: Resident Care Provided Care Provided: Adult [facility] Medicine
[2023-01-18] MEDS ORDERED: ALBUMIN 25% 25 GM/100 ML VIAL IV ONE (06:30)
[2023-01-18 07:44] LABS: Hematocrit (blood only) 28.1 % (42.0-52.0); Hemoglobin 9.3 g/dl (14.0-18.0); Mean Corpuscular Hemoglobin 30.9 pg (25.0-34.0); Mean Corpuscular Hgb Conc 33.1 g/dL (32.0-36.0); Mean Corpuscular Volume 93.4 fL (80.0-100.0); Mean Platelet Volume 10.5 fL (9.4-12.4); Platelet Count 75 K/uL (130-400); RDW Coefficient of Variation 15.2 % (11.5-14.5); RDW Standard Deviation 52.7 fL (36.4-46.3); Red Blood Count 3.01 M/uL (4.70-6.10)
--- NOTE | 2023-01-18 07:44 | XRay Report ---
SINGLE VIEW CHEST CLINICAL HISTORY: Dyspnea. Diminished breath sounds. FINDINGS: An AP, portable, upright chest radiograph is compared to study dated 01/17/2023. A single-le ad cardiac AICD is unchanged in position and largely obscures the left mid chest. The heart is enlarg ed noting atherosclerotic calcification of the thoracic aorta. There is pulmonary vascular congestion and mild interstitial edema. Small pleural effusions are suspected. Scarring/atelectasis is noted at the lung bases. No pneumothorax is seen. The bony thorax is grossly intact. Fusion hardware is seen in the cervical spine, the upper thoracic spine, and the lumbar spine. IMPRESSION: 1. Cardiomegaly and AICD with evidence of congestive failure and mild pulmonary edema. This is modest ly worsened from yesterday. 2. Small pleural effusions. ACT 112: Negative or not required by law. Electronically signed by: Vinicius Almaraz M.D. 01/18/2023 7:42 AM
[2023-01-18 07:56] LABS: Albumin Level 2.8 gm/dl (3.4-5.0); Bilirubin,Total 0.6 mg/dl (0.2-1.0); Calcium 7.9 mg/dl (8.6-10.3); Magnesium 1.6 mg/dl (1.7-2.4); Potassium 3.7 mmol/L (3.5-5.1)
[2023-01-18 08:02] LABS: Albumin Globulin Ratio 0.9 (0.9-2); BUN Creatinine Ratio 31.5 (10-20); Basophils # (auto) 0.04 K/uL (0-0.2); Basophils % (auto) 0.2 %; Creatinine Clr Calc Pharmacy 26.9 ml/min; Dohle Bodies 1+; Eosinophils # (auto) 0.03 K/uL (0-0.50); Eosinophils % (auto) 0.2 %; Est GFR (African American) 26.8 ml/min; Est GFR (Non-African American) 23.2 ml/min; Globulin 3.1 gm/dl (2.5-4.0); Immature Granulocytes # (auto) 0.12 K/uL (0.01-0.20); Immature Granulocytes % (auto) 0.7 %; Lymphocytes # (auto) 0.64 K/uL (1.2-3.4); Lymphocytes % (auto) 3.7 %; Monocytes # (auto) 0.67 K/uL (0.11-0.59); Monocytes % (auto) 3.9 %; Neutrophils % (auto) 91.3 %; Polychromasia 1+; Total Protein 5.9 gm/dl (6.0-8.3)
[2023-01-18] MEDS: INSULIN ASPART PER UNIT CHARGE SC SCH ×4 (08:11→20:35)
[2023-01-18 08:39] LABS: Estimated Average Glucose 140 mg/dl; Hemoglobin A1C 6.5 % (4.5-5.6)
--- NOTE | 2023-01-18 08:47 | Critical Care Consultation ---
Date of Consultation January 18, 2023 Assessment & Plan (1) Severe sepsis with septic shock: (2) PAULA (acute kidney injury): (3) Bacteremia due to Gram-positive bacteria: (4) Acidosis: (5) UTI (urinary tract infection), bacterial: (6) Stage III pressure ulcer of buttock: Plan Impression: 72-year-old male with multiple medical comorbidities admitted with failure group A strep bacteremia, urinary infection, severe sepsis with septic shock, acute kidney injury, and metabolic acidosis with altered mental status. Recommendations: 1. Neurologic: There are notes indicating underlying dementia although it is unclear what evaluation was conducted previously. The patient does appear slightly encephalopathic currently and certainly has enough metabolic abnormalities to account for some of his altered mental status. Will continue to follow as we correct his metabolic issues. His exam is nonfocal so I do not think additional imaging for lumbar puncture is indicated currently. Discontinue melatonin. Will continue his gabapentin Seroquel and Zoloft although these may need to be held if his mental status fails to clear. 2. Cardiovascular: History of heart failure. He appears to have diffuse anasarca. Cardiology's been consulted. Will await their evaluation. His echo today was a suboptimal imaging studies. EF was 30 to 35%. Right atrium was dilated. He does have an elevated troponin. He has had salvos of VT. Will correct electrolytes. Central line was placed and will initiate norepinephrine to try and keep mean arterial pressure around 65. Trend troponins but the patient is a poor candidate for cardiac catheterization given his acute renal failure. Hold diuretics, metoprolol, and Entresto currently. Given the patient's suprapubic catheter, will discontinue Flomax. Continue aspirin and Lipitor. 3. Pulmonary: No current issues. Continue to monitor closely. Incentive spirometry as tolerated by the patient's mental status 4. GI: Continue current diet. PPI in place. 5. ID: Strep pyogenes bacteremia with gram-negative nadia in the urine. Patient is currently day #2 cefepime vancomycin and Flagyl. He did receive 1 dose of Zosyn in the emergency room. Okay to de-escalate antibiotics. Vancomycin and Flagyl can be discontinued. Continue cefepime pending ID and sensitivity of the gram-negative nadia in his urine. He does not have a skin rash or other evidence of toxic shock so we will hold off on clindamycin or IVIG currently. Repeat blood cultures to ensure bacteremia is clearing. Given his AICD, intravascular seeding is possible and if the patient remains persistently bacteremic, this will present a significant problem. ID consultation may be required at that point time as the patient may require chronic suppressive antimicrobial therapy as I do not think he is a candidate for device removal. 6. Endocrine: Continue Synthroid. Glycemic control per protocol. 7. Heme-onc: Thrombocytopenia which is chronic. Continue to follow at this point in time. Mild chronic anemia. No evidence of acute blood loss. 8. Renal: Acute renal failure: Suspect poor forward flow. Will see how he responds to pressor agents. Again he is a poor candidate for renal replacement therapy. His acid-base status demonstrates a metabolic acidosis. 1 dose of bicarb will be administered and we will repeat his BMP later this afternoon. Replace calcium and magnesium. 9. DVT prophylaxis will be initiated with subcu heparin. The patient is critically ill at this point time with significant possibility of clinical deterioration. Total of 76 minutes critical care time was spent evaluation management stabilization of this patient exclusive of procedures. Given the patient's poor functional status at baseline and multiple medical issues, discussion with patient and family members regarding goals of therapy would be highly appropriate. Discussion deferred to the primary admitting service History of Present Illness Attending Physician: Juan Manning History of Present Illness Asked by hospitalist to assist in evaluation management this patient with presumed severe sepsis with septic shock and bacteremia as well as acute kidney injury. History is obtained from review electronic medical record as well as discussion with the admitting hospitalist. The patient is a 72-year-old male who is in general poor health. He has history of ischemic cardiomyopathy with ICD implantation peripheral artery disease status post amputation chronic kidney disease and poorly controlled diabetes with sacral ulcers. He presented to the emergency room yesterday. The patient is essentially bedbound at home. He has a suprapubic catheter in place. There was initial concern about infection from a urinary source. His blood cultures are positive for gram-positive cocci and urine is positive with gram-negative rods. He was acidotic. He was treated with vancomycin and Zosyn and admitted to the floor. Hospitalist rounded on him this morning and found him to be persistently hypotensive with blood pressures in the 70 systolic range and transferred him to the ICU. On arrival to the ICU, the patient was immediately assessed. His mentation is slightly slurred although again it is unclear what baseline he is at. He is mildly hypotensive with blood pressures in the 80-90 systolic range. His ca pillary refill is delayed but he has severe peripheral vascular disease. He denies chest pain palpitations. He does demonstrate total body anasarca. Allergies Allergy/AdvReac Type Severity Reaction Status Date / Time sacubitril [From Entresto] AdvReac Intermediate problems Verified 01/08/23 10:32 with bp valsartan [From Entresto] AdvReac Intermediate problems Verified 01/08/23 10:32 with bp lorazepam AdvReac Mild Confusion Verified 01/08/23 10:32 Home Medications Medication Instructions Recorded Confirmed Type ascorbic acid (vitamin C) 500 mg 500 mg PO QAM 03/23/19 01/17/23 History tablet (Vitamin C) melatonin 5 mg tablet 5 mg PO HS 03/23/19 01/17/23 History ferrous sulfate 325 mg (65 mg 325 mg PO QAM 04/27/19 01/17/23 History iron) tablet,delayed release acetaminophen 500 mg tablet 1,000 mg PO TID PRN Pain 10/07/19 01/17/23 History (Tylenol Extra Strength) aspirin 81 mg tablet,delayed 81 mg PO QAM 04/12/20 01/17/23 History release (Aspir-) cholecalciferol (vitamin D3) 25 25 mcg PO QAM 07/18/21 01/17/23 History mcg (1,000 unit) tablet (Vitamin D3) gabapentin 100 mg capsule 200 mg PO BID #120 caps 01/17/22 01/17/23 Rx quetiapine 25 mg tablet (Seroquel) 25 mg PO HS #90 tabs 01/17/22 01/17/23 Rx metoprolol succinate 25 mg 25 mg PO QAM #90 tabs 01/23/22 01/17/23 Rx tablet,extended release 24 hr tamsulosin 0.4 mg capsule (Flomax) 0.4 mg PO HS #90 caps 02/27/22 01/17/23 Rx Mattress (Air or other) #1 ea 04/27/22 01/17/23 Rx atorvastatin 40 mg tablet 40 mg PO QAM #90 tabs 05/18/22 01/17/23 Rx Mattress (Air or other) #1 ea 07/04/22 01/17/23 Rx pantoprazole 40 mg tablet,delayed 40 mg PO BID #180 tabs 07/10/22 01/17/23 Rx release (Protonix) sacubitril 24 mg-valsartan 26 mg 1 tab PO BID #180 tabs 08/18/22 01/17/23 Rx tablet (Entresto) glipizide 5 mg tablet, extended 5 mg PO DAILY #30 tabs 09/13/22 01/17/23 Rx release 24 hr levothyroxine 75 mcg tablet 75 mcg PO DAILY #30 tabs 09/13/22 01/17/23 Rx pen needle, diabetic 31 gauge x #50 ea 10/22/22 01/17/23 Rx 5/16" (BD Ultra-Fine Short Pen Needle) insulin glargine 100 unit/mL (3 18 unit (0.18 mL) subcut QPM #15 mL 12/28/22 01/17/23 Rx mL) subcutaneous pen (Lantus Solostar U-100 Insulin) bumetanide 1 mg tablet 1 mg PO QAM #90 tabs 12/31/22 01/17/23 Rx finasteride 5 mg tablet (Proscar) 5 mg PO QAM #90 tabs 12/31/22 01/17/23 Rx metformin 500 mg tablet,extended 500 mg PO BID #180 tabs 12/31/22 01/17/23 Rx release 24hr nystatin 100,000 unit/gram topical 1 applic topical BID PRN .flare ups 01/17/23 01/17/23 History powder sertraline 50 mg tablet 75 mg PO DAILY 01/17/23 01/17/23 History Patient History Medical History Abscess in epidural space of lumbar spine RESOLVED PER PATIENT WITH SURGERIES BUT RESULTED IN NEUROGENIC BLADDER. Anemia Anxiety Bowel and bladder incontinence CAD (coronary artery disease) CABG x3 (approx 2000); cardiac arrest 2011 s/p cervical surgery; NSTEMI 07/2018 post op lumbar surgery Carotid artery stenosis less than 50% stenosis right ICA per last imaging-neck CTA 08/2018 Chronic kidney disease, stage III (moderate) Chronic systolic heart failure [facility] 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 Admitted [facility] 10/18/11 for onset of incapacitating cervical myelopathy. Spinal tap showed [facility] Lyme disease, MRI showed severe spinal cord compression at C3-4 with myelomalacia and intramedullary mass. Pt had c-spine surgery, subsequent prolonged hospital admission, complicated post-op course- including cardiac arrest Depression Diabetic peripheral neuropathy Disc degeneration, lumbar Diverticulosis Dyslipidemia Dysphagia resolved per pt History of COVID-19 diagnosed 05/28/20 via HOME TEST ONLY--severe diarrhea/cough/fever/loss of smell--no issues now History of non-ST elevation myocardial infarction (NSTEMI) 2000; 2018 HTN (hypertension) Hypothyroidism ICD (implantable cardioverter-defibrillator) in place Medtronic--ICD replacement done 09/01/20 @ [facility] by Dr. 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 Hollins- had post op respiratory failure requiring trach and subsequent cardiac arres requiring one shock V fib- AICD implanted Type 2 diabetes mellitus per noncompliant with insulin UTI (urinary tract infection), bacterial Wheelchair confinement per does not get out of bed without tien lift--needs wheelchair Surgical History H/O cervical spine surgery ACDI C3-4, C7 corpectomy, removal of C7 intramedullary mass.> ROM IS OK PER PATIENT H/O sinus surgery History of cardiac cath 07/2018 [facility]. Severe multivessel council coronary artery disease 99% subtotal occlusion in proximal ramus with distal NEMESIO I flow (thought to be acute culprit vessel) -100% chronic mid LAD occlusion Diffuse mid circumflex, 80% proximal OM 2 Sequential mid RCA 95, 90% stenosis 2. Widely patent DELATORRE to LAD. Patent FERNANDO to very small diffusely diseased acute marginal. Occluded radial graft to OM. Medical MGMT recommended. History of cataract extraction with lens replacement History of colonoscopy History of esophagogastroduodenoscopy (EGD) History of incision and drainage Lumbar spine on 08/11/18; complicated by difficult intubation with only #6.5 ETT able to be placed and patient kept intubated post op Lumbar spine again 09/10/2018, ETT#7.0 with difficulty. Lumbar spine 10/09/2018, ETT#7.0, poor view bougie used. Anesthesia postop note: "still requiring phenyelphrine drip to maintain BP. Maintaining O2 sats with oxymask. Case discussed with ICU community relations specialist, Dr. Mazariegos. Dr. Mazariegos updated with patients PMH including his cardiac comorbidities and his intraop course, including the blood transfusion. Dr. Mazariegos accepting patient for ICU management post op." Left heel 02/06/2019: LMA#5. History of lumbar spinal fusion 07/25/2018: glidescope #3, ETT#8.0. CHF and MA post-op. History of lumbar surgery 09/10/18 Glidescope 3 okay visualization but difficulty passing ETT, unable to pass 8.0, able to pass 7.0 with some difficulty History of tracheostomy CLOSED 8 YRS AGO Hx [place]G [place] [facility] [place], fernando to rca marginals and left radical artery to left circ Hx of foot surgery [place] MAY 2019 Hx of tonsillectomy Hx of transurethral resection of prostate S/P PICC central line placement hx of S/P triple vessel bypass [facility]- (DELATORRE to LAD, FERNANDO to Acute Marginal, Radial Graft to OM) Status post below-knee amputation of left lower extremity in setting of osteomyelitis and sepsis 08/14/19: LMA#4 + PNB. I&D 10/09/2019: LMA#4. No issues per anesthesia postop progress note. Family History Mother , age 68 of COPD and respiratory issues COPD (chronic obstructive pulmonary disease) Father , in his 40s of an MA Myocardial infarction Family/Other Coronary heart disease Sister Other specified health status Other Diabetes Hypertension No pertinent family history Denies family history of Prostate cancer Breast cancer Colorectal cancer Social History Smoking Status: Never smoker Second Hand Exposure: No; Do You Dip or Chew Tobacco: No; Hx Alcohol Use: No Hx Substance Use: No Preferred Language: Hebrew Communication Ability: Effective Communication Ability Comment: confusion Visual Impairment: No Limitations Hearing Ability: Normal Locker Attendant Required: No Beliefs That Will Affect Care: None marital status: Current Living Situation: Spouse Current Living Situation Comment: home with spouse 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al status: retired and disabled 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: 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 Unable to obtain reliable review of systems from this patient due to metabolic encephalopathy Physical Exam Constitutional: WD/WN, vitals as above Patient slightly obtunded. He is able to answer some questions but mentation appears slowed. Unclear what his baseline is Neck: trachea midline, no thyromegaly Respiratory: normal respiratory effort, lungs clear to auscultation Cardiovascular: Rate/Rhythm: regular rate Heart Sounds: normal S1, normal S2 and + murmur Extremities: + edema Total body anasarca Gastrointestinal (Abdomen): normal bowel sounds, soft, nontender, no hepatosplenomegaly Musculoskeletal: Extremities: extremities normal to inspection Skin: Poor capillary refill. Pulses are weakly palpable. Neurologic: Nonfocal exam Lymphatic: no cervical lymphadenopathy Results & Data Results & Data Vital Signs (Past 12 Hours) Vital Signs Temp Pulse Pulse Pulse Resp BP Pulse Ox 01/18/23 08:02 78 18 76/46 L 95 01/18/23 07:50 01/18/23 07:44 36.5 C 82 20 78/42 L 98 01/18/23 07:32 81 01/18/23 07:20 36.9 C 76 20 81/51 L 97 01/18/23 06:54 93/60 L 01/18/23 07:09 89/57 L 01/18/23 06:39 81/52 L 01/18/23 06:26 89/57 L 01/18/23 06:10 85/53 L 01/18/23 05:55 82/50 L 01/18/23 05:15 79/50 L 01/18/23 05:40 80/51 L 01/18/23 03:42 37 C 92 H 24 85/52 L 98 01/18/23 04:25 84/52 L 01/17/23 23:00 80 01/18/23 00:42 91/59 L 01/18/23 00:15 83/55 L 01/17/23 22:51 36.9 C 76 18 85/51 L 95 01/17/23 20:55 36.8 C 85 16 107/68 97 O2 Del Method 01/18/23 08:02 Room Air 01/18/23 07:50 Room Air 01/18/23 07:44 Room Air 01/18/23 07:32 01/18/23 07:20 Room Air 01/18/23 06:54 01/18/23 07:09 01/18/23 06:39 01/18/23 06:26 01/18/23 06:10 01/18/23 05:55 01/18/23 05:15 01/18/23 05:40 01/18/23 03:42 Room Air 01/18/23 04:25 01/17/23 23:00 01/18/23 00:42 01/18/23 00:15 01/17/23 22:51 Room Air 01/17/23 20:55 Room Air Critical Care Results & Data Vital Signs (Past 12 Hours) Vital Signs Temp Pulse Pulse Pulse Resp BP Pulse Ox 01/18/23 08:02 78 18 76/46 L 95 01/18/23 07:50 01/18/23 07:44 36.5 C 82 20 78/42 L 98 01/18/23 07:32 81 01/18/23 07:20 36.9 C 76 20 81/51 L 97 01/18/23 06:54 93/60 L 01/18/23 07:09 89/57 L 01/18/23 06:39 81/52 L 01/18/23 06:26 89/57 L 01/18/23 06:10 85/53 L 01/18/23 05:55 82/50 L 01/18/23 05:15 79/50 L 01/18/23 05:40 80/51 L 01/18/23 03:42 37 C 92 H 24 85/52 L 98 01/18/23 04:25 84/52 L 01/17/23 23:00 80 01/18/23 00:42 91/59 L 01/18/23 00:15 83/55 L 01/17/23 22:51 36.9 C 76 18 85/51 L 95 01/17/23 20:55 36.8 C 85 16 107/68 97 O2 Del Method 01/18/23 08:02 Room Air 01/18/23 07:50 Room Air 01/18/23 07:44 Room Air 01/18/23 07:32 01/18/23 07:20 Room Air 01/18/23 06:54 01/18/23 07:09 01/18/23 06:39 01/18/23 06:26 01/18/23 06:10 01/18/23 05:55 01/18/23 05:15 01/18/23 05:40 01/18/23 03:42 Room Air 01/18/23 04:25 01/17/23 23:00 01/18/23 00:42 01/18/23 00:15 01/17/23 22:51 Room Air 01/17/23 20:55 Room Air Lab & Micro Results (Past 24 Hours) RBC 3.01 M/uL (4.70-6.10) L 01/18/23 WBC 17.40 K/ul (4.8-10.8) H 01/18/23 Hgb 9.3 g/dl (14.0-18.0) L 01/18/23 Hct 28.1 % (42.0-52.0) L 01/18/23 MCV 93.4 fL (80.0-100.0) 01/18/23 MCH 30.9 pg (25.0-34.0) 01/18/23 MCHC 33.1 g/dL (32.0-36.0) 01/18/23 RDW Standard Deviation 52.7 fL (36.4-46.3) H 01/18/23 RDW Coefficient of Variation 15.2 % (11.5-14.5) H 01/18/23 Plt Count 75 K/uL (130-400) L 01/18/23 MPV 10.5 fL (9.4-12.4) 01/18/23 Neutrophils (%) (Auto) 91.3 % 01/18/23 Lymphocytes (%) (Auto) 3.7 % 01/18/23 Monocytes # (Auto) 0.67 K/uL (0.11-0.59) H 01/18/23 Eosinophils # (Auto) 0.03 K/uL (0-0.50) 01/18/23 Immature Granulocyte % (Auto) 0.7 % 01/18/23 Neutrophils # (Auto) 15.90 K/uL (1.40-6.50) H 01/18/23 Lymphocytes # (Auto) 0.64 K/uL (1.2-3.4) L 01/18/23 Monocytes # (Auto) 0.67 K/uL (0.11-0.59) H 01/18/23 Eosinophils # (Auto) 0.03 K/uL (0-0.50) 01/18/23 Basophils # (Auto) 0.04 K/uL (0-0.2) 01/18/23 Immature Granulocyte # (Auto) 0.12 K/uL (0.01-0.20) 3 Polychromasia 1+ 01/18/23 Dohle Bodies 1+ 01/18/23 Na 133 mmol/L (136-145) L 01/18/23 K 3.7 mmol/L (3.5-5.1) 01/18/23 Cl 105 mmol/L (98-107) 01/18/23 CO2 16 mmol/L (21-32) L 01/18/23 Anion Gap 12 (3-11) H 01/18/23 BUN 84 mg/dl (6-23) H 01/18/23 Creatinine 2.67 mg/dl (0.6-1.4) H 01/18/23 Estimated GFR ( Amer) 26.8 ml/min 01/18/23 Estimated GFR (Non-Af Amer) 23.2 ml/min 01/18/23 BUN/Creatinine Ratio 31.5 (10-20) H 01/18/23 Glu 135 mg/dl (70-99(Fasting)) H 01/18/23 Ca 7.9 mg/dl (8.6-10.3) L 01/18/23 Total Bilirubin 0.6 mg/dl (0.2-1.0) 01/18/23 AST 54 U/L (13-39) H 01/18/23 ALT 38 U/L (7-52) 01/18/23 Alkaline Phosphatase 62 U/L (34-104) 01/18/23 TP 5.9 gm/dl (6.0-8.3) L 01/18/23 Albumin 2.8 gm/dl (3.4-5.0) L 01/18/23 Globulin 3.1 gm/dl (2.5-4.0) 01/18/23 Albumin/Globulin Ratio 0.9 (0.9-2) 01/18/23 Mg 1.6 mg/dl (1.7-2.4) L 01/18/23 07:10 Calcium Level 7.9 mg/dl (8.6-10.3) L 01/18/23 07:10 Venous Blood pH 7.31 (7.36-7.41) L 01/18/23 00:36 Venous Blood Partial Pressure CO2 36 mmHg (38-50) L 01/18/23 00 :36 Venous Blood Partial Pressure O2 37 mmHg 01/18/23 00:36 Venous Blood HCO3 18 mmol/L 01/18/23 00:36 Venous Blood Base Excess -7.4 mEq/L 01/18/23 00:36 Venous Blood Oxygen Saturation 62.3 % 01/18/23 00:36 Ronaldo Test NA 01/18/23 10:52 Microbiology 01/17/23 13:45 Urine Culture - Preliminary Urine,Clean Catch Gram negative bacilli 01/17/23 12:00 Aerobic Blood Culture - Preliminary Blood Gram positive cocci in chains Anaerobic Blood Culture - Preliminary Gram positive cocci in chains Diagnostic Findings (Past 24 Hours) Chest X-Ray 01/17/23 11:40 XR chest 1V portable CLINICAL HISTORY: Sepsis TECHNIQUE: Single frontal radiograph of the chest was obtained. Comparison: Comparison is made to chest radiograph 07/21/2021 FINDINGS: ACDF is seen. Defibrillator is noted with median sternotomy wires. Cardiomegaly is noted. The aortic arch is calcified. Prominence and cephalization of the vasculature is seen. No evidence of pleural effusion or pneumothorax. IMPRESSION: Cardiomegaly and mild pulmonary edema. ACT 112: Negative or not required by law. Electronically signed by: Tai Whipple M.D. 01/17/2023 12:28 PM Abdomen/Pelvis CT 01/17/23 11:41 CT abd pelvis wo con CLINICAL HISTORY: distended TECHNIQUE: Helical axial images of the abdomen and pelvis were obtained. Automated dose lowering techniques and/or adjustment according to patient size were utilized for this exam. This exam was performed without intravenous contrast. COMPARISON: Comparison is made to CT abdomen pelvis 07/21/2021 FINDINGS: Lower chest: Bilateral pleural effusion is seen. Biatrial enlargement and cardiomegaly noted. Severe atherosclerosis is noted. Liver: Unremarkable. No focal lesions are seen. Gallbladder and biliary tree: Layering radiodense material is seen in the dependent portion of the likely representing sludge. No intra- or extrahepatic biliary ductal dilation. Pancreas: Unremarkable, no focal lesions. Spleen: Splenomegaly is noted, the spleen measures 16.2 cm. Adrenals: Unremarkable. Kidneys and ureters: Nonobstructive nephrolithiasis is seen. Horseshoe kidney is noted. Bladder: Suprapubic catheter is seen. Reproductive organs: Unremarkable. Bowel: Diverticulosis is seen without evidence of diverticulitis. The appendix is unremarkable. A duodenal diverticulum is seen. Lymph nodes Retroperitoneal: Unremarkable. Pelvic: Unremarkable. Mesenteric: Unremarkable. Peritoneum: Normal. Vessels: Atherosclerotic calcifications are seen. Abdominal wall: Unremarkable. Bones: Degenerative changes in the visualized spine. Posterior fixation hardware is seen spanning L1-S1. IMPRESSION: 1. No acute abnormalities and in particular no evidence of bowel obstruction. 2. Small bilateral pleural effusions. 3. Horseshoe kidney. Nonobstructive stones. ACT 112: Negative or not required by law. Electronically signed by: Tai Whipple M.D. 01/17/2023 12:[address] 01/17/23 11:41 CT SCAN OF THE BRAIN WITHOUT IV CONTRAST CLINICAL HISTORY: Change in mental status. COMPARISON STUDY: CT of the brain dated 05/06/2019. TECHNIQUE: Unenhanced axial CT scan of the brain is performed from the vertex to the skull base. A dose lowering technique was utilized adhering to the principles of ALARA. CT DOSE: 2208.50 mGy.cm FINDINGS: Brain parenchyma: There is age-related involutional change noting [id number] subcortical and periventricular microangiopathic disease. There is no hemorrhage, mass effect, or evidence of acute territorial ischemia by CT criteria. Childers-white matter differentiation is preserved. No extra-axial fluid collection is seen. Ventricles, sulci, cisterns: Prominent secondary to involutional change. Intracranial vasculature: There is atherosclerotic calcification of the cavernous carotid and vertebral arteries. Calvarium: Unremarkable. Soft tissues: Soft tissue edema is noted in the scalp, greatest posteriorly at the vertex. Sinuses and mastoids: There is trace mucosal thickening in the left maxillary antrum. Trace mucosal thickening is also seen within the ethmoid and sphenoid sinuses. There is a large right mastoid effusion, with fluid in the right middle ear. The left mastoid air cells are well pneumatized. Orbits: The bony orbits are grossly intact. There are bilateral ocular lens implants. IMPRESSION: There is no hemorrhage, mass effect, or evidence of acute territorial ischemia by CT criteria. ACT 112: Negative or not required by law. Electronically signed by: Vinicius Almaraz M.D. 01/17/2023 12:[address] 01/17/23 15:53 CT SCAN OF THE RIGHT TIBIA AND FIBULA WITHOUT IV CONTRAST CLINICAL HISTORY: Sepsis. Calf ulcer. COMPARISON STUDY: No priors. TECHNIQUE: CT scan of the right tibia and fibula is performed from the distal femur to the ankle. Images reviewed in the axial, sagittal, and coronal planes. IV contrast was not administered for this examination. A dose lowering technique was utilized adhering to the principles of ALARA. Note that interpretation is suboptimal without plain film correlate. CT DOSE: 290.96 mGy.cm FINDINGS: The skeletal structures are heterogeneously osteopenic. There is no evidence of tibial or fibular fracture. No erosive change is seen. The knee and ankle joints are grossly maintained. There is chronic posttraumatic deformity of the distal fibula. A wound is seen within the posterolateral soft tissues of the mid calf on axial image #164. There is no evidence of fluid collection on this unenhanced examination. Advanced atherosclerotic calcification is observed in the regional arteries. Soft tissue edema and trace subcutaneous fluid is present throughout the right leg. There is generalized atrophy of the regional musculature. No soft tissue gas is seen. IMPRESSION: 1. No acute bony abnormality is identified. 2. Soft tissue edema and trace subcutaneous fluid is seen throughout the right leg. Correlate clinically for evidence of cellulitis. 3. A wound is seen in the posterolateral aspect of the mid calf. 4. No fluid collection is identified to suggest abscess on this unenhanced examination. ACT 112: Negative or not required by law. Dictated: 01/17/2023 4:38 PM Transcribed: 01/17/2023 5:01 PM Messi [id number] [email or web address] Electronically signed by: Vinicius Almaraz M.D. 01/17/2023 5:25 PM Chest X-Ray 01/18/23 04:19 SINGLE VIEW CHEST CLINICAL HISTORY: Dyspnea. Diminished breath sounds. FINDINGS: An AP, portable, upright chest radiograph is compared to study dated 01/17/2023. A single-lead cardiac AICD is unchanged in position and largely ob scures the left mid chest. The heart is enlarged noting atherosclerotic calcification of the thoracic aorta. There is pulmonary vascular congestion and mild interstitial edema. Small pleural effusions are suspected. Scarring/atelectasis is noted at the lung bases. No pneumothorax is seen. The bony thorax is grossly intact. Fusion hardware is seen in the cervical spine, the upper thoracic spine, and the lumbar spine. IMPRESSION: 1. Cardiomegaly and AICD with evidence of congestive failure and mild pulmonary edema. This is modestly worsened from yesterday. 2. Small pleural effusions. ACT 112: Negative or not required by law. Electronically signed by: Vinicius Almaraz M.D. 01/18/2023 7:42 AM I & O Totals 24 Hours 01/17/23 01/18/23 01/19/23 06:59 06:59 06:59 Intake Total 5653.333 / 5653.333 350 / 350 Output Total 112 / 112 Balance 5541.333 / 5541.333 350 / 350 Cumulative 01/17/23 11:04 thru 01/18/23 08:33 Intake Total 6003.333 Output Total 112 Balance 5891.333 RT Ventilator Mngmt (Last Documented) Ventilator Ordered Settings Respiratory Rate 18 01/18/23 08:02 Ventilator - PT Measurements Respiratory Rate 18 Coding Level of Care Code 52694 CRITICAL CARE EA ADD 30M Diagnoses Severe sepsis with septic shock A41.9; R65.21 PAULA (acute kidney injury) N17.9 Bacteremia due to Gram-positive bacteria R78.81 Acidosis E87.20 UTI (urinary tract infection), bacterial N39.0; A49.9 Stage III pressure ulcer of buttock L89.303
[2023-01-18] MEDS ORDERED: FERROUS SULFATE 325 MG TAB PO SCH (09:00)
[2023-01-18] MEDS ORDERED: FINASTERIDE 5 MG TAB PO SCH (09:00)
[2023-01-18] MEDS ORDERED: ASCORBIC ACID 500 MG TAB PO SCH (09:00)
[2023-01-18] MEDS ORDERED: BUMETANIDE 1 MG TAB PO SCH (09:00)
[2023-01-18] MEDS ORDERED: CHOLECALCIFEROL 1,000 UNITS 25 MCG TAB PO SCH (09:00)
[2023-01-18] MEDS ORDERED: METOPROLOL SUCC 25MG EXT REL TAB PO SCH (09:00)
[2023-01-18] MEDS ORDERED: VANCOMYCIN HCL 1,000 MG in SODIUM CHLORIDE 0.9% 250 ML IV SCH (09:00)
[2023-01-18] MEDS: SERTRALINE HCL 50 MG TABLET PO SCH (09:04)
[2023-01-18] MEDS: MAGNESIUM OXIDE 400 MG TAB PO SCH (09:04)
[2023-01-18] MEDS: GABAPENTIN 100 MG CAP PO SCH ×2 (09:04→20:12)
[2023-01-18] MEDS: PANTOprazole 40 MG TAB PO SCH ×2 (09:04→20:13)
[2023-01-18] MEDS: ASPIRIN 81 MG ECTAB PO SCH (09:05)
[2023-01-18] MEDS: ATORVASTATIN 40 MG TAB PO SCH (09:05)
--- NOTE | 2023-01-18 09:49 | Pharmacy Report ---
Pharmacy PK ABX Note - Date of Service January 18, 2023 - Assessment and Plan Assessment 72 year old M receiving cefepime/vancomycin/metronidazole for treatment of sepsis/bacteremia and UTI. Pertinent microbiologic data includes: positive gram positive cocci in blood cultures and G negative bacilli in urine culture Day #2 of antimicrobial therapy. Plan Vancomycin 01/18/23: * Random Vancomycin level obtained this AM = 12.2 mcg/ml. * Since this is below the goal trough range of 15-20 mcg/ml, will re-dose with Vancomycin 1000 mg IV x1 dose this AM. * Re-check random Vanc level in AM on 01/19/23. * Will continue to dose based on random levels in the AM for now until renal function is stable. 01/17/23: * Loading dose: 2000 mg IV x 1 * Will dose vancomycin per levels due to acute kidney injury * Random level ordered for: 01/18/23 with AM labs Pharmacy will continue to follow and will adjust dose/frequency as necessary. Thank you.
--- NOTE | 2023-01-18 10:09 | Cardiology Consultation ---
Date of Consultation January 18, 2023 Assessment & Plan (1) Elevated troponin I level: (2) CAD (coronary artery disease): (3) Chronic systolic heart failure: (4) ICD (implantable cardioverter-defibrillator) in place: (5) Ischemic cardiomyopathy: (6) Wide-complex tachycardia: Plan 1. Elevated troponin: He has history of coronary disease. He is essentially bed-bound and so has no symptoms of coronary insufficiency or angina at baseline. In the setting of hypotension and significant acidosis I suspect the current elevation is related to his sepsis. He did not endorse any symptoms of chest discomfort. I think we will treat him supportively at this point. I do not think there is any indication for anticoagulation. 2. Congestive heart failure: He did receive aggressive volume resuscitation for his hypertension and distributive shock peer we need to be very careful regarding volume administration and the development of pulmonary vascular congestion. He has some pulmonary edema on exam currently. He is not complaining of dyspnea and still oxygenating well. He may require diuresis at some point when he is more stable and develops volume shifts. Currently in what appears to be acute renal failure as well with little urine output. This may compromise our ability to affect diuresis if he develops significant pulmonary vascular congestion. 3. Coronary disease: Not complaining of chest pain. Again, I do not believe his biomarker elevation is indicative of acute coronary syndrome. 4. Ischemic cardiomyopathy: As noted above, clearly at risk for development of decompensation. Fluids are required for his distributive shock, but we must look out for worsening pulmonary edema. Standard medications currently being held in the setting of hypotension and the need for pressor support. 5. Normally functioning single-chamber ICD 6. Wide complex tachycardia: I believe this is an atrial arrhythmia. 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 This occurs in the setting of norepinephrine infusion and frequent atrial ectopy. This is a common scenario for development of AVNRT. He was started on amiodarone infusion and his pressor was switched to phenylephrine. I think both of these interventions will reduce the chance of recurrence. Does have some hypotension during prolonged episodes. As his clinical condition improves and he requires less pressor support this is less likely to be a problem. No extended episodes recorded through his device were seen previously. Agree with institution of amiodarone Agree with change of pressor from norepinephrine to phenylephrine Check electrolytes Monitor volume status closely. Clearly edematous with some element of pulmonary edema currently. May require diuresis for hypoxia or dyspnea if tolerated hemodynamically and renal function improves. History of Present Illness Reason for Consultation: Hypotension, elevated troponin Requesting Physician: Maria Elena Attending Physician: Juan Manning History of Present Illness The patient is a 72-year-old gentleman with an extensive cardiac history to include coronary artery disease status post surgical revascularization, atrial fibrillation, an associated cardiomyopathy, peripheral vascular disease and a cardiac arrest. He is status post implantation of a single-chamber ICD. He was brought to the hospital by family member yesterday due to an altered mental status. He is found have a significant leukocytosis in acidosis and findings consistent with sepsis. In this setting he was noted to have elevated cardiac biomarkers. The patient could not provide any history at that time. He was admitted for observation, started on intravenous volume resuscitation and antibiotics. This morning the patient claims to be feeling well. He was anxious to eat breakfast. He did report feeling somewhat tired but denies any symptoms of pain. No chest pain, no abdominal pain, no pain in the legs. He denies any breathing difficulty. He denies any cough. No sense of palpitations. No dizziness. He did not report feeling edematous or swollen. Allergies Allergy/AdvReac Type Severity Reaction Status Date / Time sacubitril [From Entresto] AdvReac Intermediate problems Verified 01/08/23 10:32 with bp valsartan [From Entresto] AdvReac Intermediate problems Verified 01/08/23 10:32 with bp lorazepam AdvReac Mild Confusion Verified 01/08/23 10:32 Home Medications Medication Instructions Recorded Confirmed Type ascorbic acid (vitamin C) 500 mg 500 mg PO QAM 03/23/19 01/17/23 History tablet (Vitamin C) melatonin 5 mg tablet 5 mg PO HS 03/23/19 01/17/23 History ferrous sulfate 325 mg (65 mg 325 mg PO QAM 04/27/19 01/17/23 History iron) tablet,delayed release acetaminophen 500 mg tablet 1,000 mg PO TID PRN Pain 10/07/19 01/17/23 History (Tylenol Extra Strength) aspirin 81 mg tablet,delayed 81 mg PO QAM 04/12/20 01/17/23 History release (Aspir-) cholecalciferol (vitamin D3) 25 25 mcg PO QAM 07/18/21 01/17/23 History mcg (1,000 unit) tablet (Vitamin D3) gabapentin 100 mg capsule 200 mg PO BID #120 caps 01/17/22 01/17/23 Rx quetiapine 25 mg tablet (Seroquel) 25 mg PO HS #90 tabs 01/17/22 01/17/23 Rx metoprolol succinate 25 mg 25 mg PO QAM #90 tabs 01/23/22 01/17/23 Rx tablet,extended release 24 hr tamsulosin 0.4 mg capsule (Flomax) 0.4 mg PO HS #90 caps 02/27/22 01/17/23 Rx Mattress (Air or other) #1 ea 04/27/22 01/17/23 Rx atorvastatin 40 mg tablet 40 mg PO QAM #90 tabs 05/18/22 01/17/23 Rx Mattress (Air or other) #1 ea 07/04/22 01/17/23 Rx pantoprazole 40 mg tablet,delayed 40 mg PO BID #180 tabs 07/10/22 01/17/23 Rx release (Protonix) sacubitril 24 mg-valsartan 26 mg 1 tab PO BID #180 tabs 08/18/22 01/17/23 Rx tablet (Entresto) glipizide 5 mg tablet, extended 5 mg PO DAILY #30 tabs 09/13/22 01/17/23 Rx release 24 hr levothyroxine 75 mcg tablet 75 mcg PO DAILY #30 tabs 09/13/22 01/17/23 Rx pen needle, diabetic 31 gauge x #50 ea 10/22/22 01/17/23 Rx 5/16" (BD Ultra-Fine Short Pen Needle) insulin glargine 100 unit/mL (3 18 unit (0.18 mL) subcut QPM #15 mL 12/28/22 01/17/23 Rx mL) subcutaneous pen (Lantus Solostar U-100 Insulin) bumetanide 1 mg tablet 1 mg PO QAM #90 tabs 12/31/22 01/17/23 Rx finasteride 5 mg tablet (Proscar) 5 mg PO QAM #90 tabs 12/31/22 01/17/23 Rx metformin 500 mg tablet,extended 500 mg PO BID #180 tabs 12/31/22 01/17/23 Rx release 24hr nystatin 100,000 unit/gram topical 1 applic topical BID PRN .flare ups 01/17/23 01/17/23 History powder sertraline 50 mg tablet 75 mg PO DAILY 01/17/23 01/17/23 History Patient History Medical History Abscess in epidural space of lumbar spine RESOLVED PER PATIENT WITH SURGERIES BUT RESULTED IN NEUROGENIC BLADDER. Anemia Anxiety Bowel and bladder incontinence CAD (coronary artery disease) CABG x3 (approx 2000); cardiac arrest 2011 s/p cervical surgery; NSTEMI 07/2018 post op lumbar surgery Carotid artery stenosis less than 50% stenosis right ICA per last imaging-neck CTA 08/2018 Chronic kidney disease, stage III (moderate) Chronic systolic heart failure [employer]ATING [employer] 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 Admitted [facility] 10/18/11 for onset of incapacitating cervical myelopathy. 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 Pt had c-spine surgery, subsequent prolonged hospital admission, complicated post-op course- including cardiac arrest Depression Diabetic peripheral neuropathy Disc degeneration, lumbar Diverticulosis Dyslipidemia Dysphagia resolved per pt History of COVID-19 diagnosed 05/28/20 via HOME TEST ONLY--severe diarrhea/cough/fever/loss of smell--no issues now History of non-ST elevation myocardial infarction (NSTEMI) 2000; 2018 HTN (hypertension) Hypothyroidism ICD (implantable cardioverter-defibrillator) in place Med[employer]--ICD replacement done 09/01/20 @ [facility] by Dr. 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 Hollins- had post op respiratory failure requiring trach and subsequent cardiac arres requiring one shock V fib- AICD implanted Type 2 diabetes mellitus per noncompliant with insulin UTI (urinary tract infection), bacterial Wheelchair confinement per does not get out of bed without tien lift--needs wheelchair Surgical History H/O cervical spine surgery ACDI C3-4, C7 corpectomy, removal of C7 intramedullary mass.> ROM IS OK PER PATIENT H/O sinus surgery History of cardiac cath 07/2018 [facility]. Severe multivessel [place] coronary artery disease 99% subtotal occlusion in proximal ramus with distal NEMESIO I flow (thought to be acute culprit vessel) -100% chronic mid LAD occlusion Diffuse mid circumflex, 80% proximal OM 2 Sequential mid RCA 95, 90% stenosis 2. Widely patent DELATORRE to LAD. Patent FERNANDO to very small diffusely diseased acute marginal. Occluded radial graft to OM. Medical MGMT recommended. History of cataract extraction with lens replacement History of colonoscopy History of esophagogastroduodenoscopy (EGD) History of incision and drainage Lumbar spine on 08/11/18; complicated by difficult intubation with only #6.5 ETT able to be placed and patient kept intubated post op Lumbar spine again 09/10/2018, ETT#7.0 with difficulty. Lumbar spine 10/09/2018, ETT#7.0, poor view bougie used. Anesthesia postop note: "still requiring phenyelphrine drip to maintain BP. Maintaining O2 sats with oxymask. Case discussed with ICU deputy commissioner, Dr. Mazariegos. Dr. Mazariegos updated with patients PMH including his cardiac comorbidities and his intraop course, including the blood transfusion. Dr. Mazariegos accepting patient for ICU management post op." Left heel 02/06/2019: LMA#5. History of lumbar spinal fusion 07/25/2018: glidescope #3, ETT#8.0. CHF and [place] post-op. History of lumbar surgery 09/10/18 Glidescope 3 okay visualization but difficulty passing ETT, unable to pass 8.0, able to pass 7.0 with some difficulty History of tracheostomy CLOSED 8 YRS AGO Hx of CABG 06/2001 [facility] delatorre to lad, fernando to rca marginals and left radical artery to left circ Hx of foot surgery [facility] MAY 2019 Hx of tonsillectomy Hx of transurethral resection of prostate S/P PICC central line placement hx of S/P triple vessel bypass [facility] 2002- (DELATORRE to LAD, FERNANDO to Acute Marginal, Radial Graft to OM) Status post below-knee amputation of left lower extremity in setting of osteomyelitis and sepsis 08/14/19: LMA#4 + PNB. I&D 10/09/2019: LMA#4. No issues per anesthesia postop progress note. Family History Mother , age 68 of COPD and respiratory issues COPD (chronic obstructive pulmonary disease) Father , in his 40s of an [place] Myocardial infarction Family/Other Coronary heart disease Sister Other specified health status Other Diabetes Hypertension No pertinent family history Denies family history of Prostate cancer Breast cancer Colorectal cancer Social History Smoking Status: Never smoker Second Hand Exposure: No; Do You Dip or Chew Tobacco: No; Hx Alcohol Use: No Hx Substance Use: No Preferred Language: Mongolian Communication Ability: Impaired Communication Ability Comment: confusion Visual Impairment: No Limitations Hearing Ability: Normal 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: No Beliefs That Will Affect Care: None marital status: Current Living Situation: Spouse Current Living Situation Comment: home with spouse 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al status: retired and disabled 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 Mood and affect appeared normal. He answered all questions appropriately. He did fall asleep easily HEENT: Pupils are equal and reactive to light and accommodation. Extraocular movements are intact. The sclerae are anicteric. Neuro: Cranial nerves intact Chest: Well-healed device implant site in the left upper pectoral area Lungs: Clear in the apices with some crackles in the bases bilaterally. Normal respiratory effort. No expiratory wheezing. Cardiac: Heart demonstrates a regular rate and rhythm with occasional ectopy. Normal S1 and S2. No murmurs on examination. Abdomen: Seems distended, but nontender and not firm to the touch. Pulses: Diminished radial pulses bilaterally Extremities: There was no evidence of hypoperfusion. There is a left below- knee amputation. There is a crusty lesion on the stump. Mild edema in the right lower extremity. Results & Data Vital Signs (Past 12 Hours) Vital Signs Temp Pulse Pulse Pulse Resp BP Pulse Ox 01/18/23 09:11 73 18 86/50 L 01/18/23 08:02 78 18 76/46 L 95 01/18/23 07:50 01/18/23 07:44 36.5 C 82 20 78/42 L 98 01/18/23 07:32 81 01/18/23 07:20 36.9 C 76 20 81/51 L 97 01/18/23 06:54 93/60 L 01/18/23 07:09 89/57 L 01/18/23 06:39 81/52 L 01/18/23 06:26 89/57 L 01/18/23 06:10 85/53 L 01/18/23 05:55 82/50 L 01/18/23 05:15 79/50 L 01/18/23 05:40 80/51 L 01/18/23 03:42 37 C 92 H 24 85/52 L 98 01/18/23 04:25 84/52 L 01/17/23 23:00 80 01/18/23 00:42 91/59 L 01/18/23 00:15 83/55 L 01/17/23 22:51 36.9 C 76 18 85/51 L 95 O2 Del Method 01/18/23 09:11 01/18/23 08:02 Room Air 01/18/23 07:50 Room Air 01/18/23 07:44 Room Air 01/18/23 07:32 01/18/23 07:20 Room Air 01/18/23 06:54 01/18/23 07:09 01/18/23 06:39 01/18/23 06:26 01/18/23 06:10 01/18/23 05:55 01/18/23 05:15 01/18/23 05:40 01/18/23 03:42 Room Air 01/18/23 04:25 01/17/23 23:00 01/18/23 00:42 01/18/23 00:15 01/17/23 22:51 Room Air Laboratory Results Abnormal Lab Results 01/17/23 01/17/23 01/17/23 12:00 12:00 12:00 WBC 22.48 H RBC 3.41 L Hgb 10.5 L Hct 31.1 L MCV 91.2 MCH 30.8 MCHC 33.8 RDW Std Deviation 49.8 H RDW Coeff of Norbert 14.9 H Plt Count 89 L MPV 10.0 Immature Gran % (Auto) 1.3 Neut % (Auto) 94.7 Lymph % (Auto) 1.7 [place] % (Auto) 2.2 Eos % (Auto) 0.0 Baso % (Auto) 0.1 Neut # (Auto) 21.28 H Lymph # (Auto) 0.39 L [place] # (Auto) 0.49 Eos # (Auto) 0.00 Baso # (Auto) 0.03 Immature Gran # (Auto) 0.29 H Toxic Vacuolation 1+ Dohle Bodies 1+ Polychromasia 1+ Echinocytes 2+ ESR PT INR APTT PTT Ratio VBG pH VBG pCO2 VBG pO2 VBG HCO3 VBG O2 Saturation VBG Base Excess Sodium 132 L Potassium 3.9 Chloride 99 Carbon Dioxide 18 L Anion Gap 15 H BUN 89 H Creatinine 2.75 H Est Cr Clr Drug Dosing Not Reportable Est GFR ( Amer) 25.9 Est GFR (Non-Af Amer) 22.3 BUN/Creatinine Ratio 32.4 H Glucose 220 H POC Glucose Estimat Average Glucose Hemoglobin A1c Lactate 2.2 H* Calcium 8.7 Magnesium 1.1 L Total Bilirubin 0.9 Direct Bilirubin 0.3 H AST 27 ALT 24 Alkaline Phosphatase 85 Ammonia Troponin I High Sens 2556.7 H* C-Reactive Protein 29.84 H Total Protein 6.6 Albumin 3.1 L Globulin Albumin/Globulin Ratio Procalcitonin Urine Color Urine Appearance Urine pH Ur Specific [place] Urine Protein Urine Glucose (UA) Urine Ketones Urine Blood Urine Nitrite Urine Bilirubin Urine Urobilinogen Ur Leukocyte Esterase Urine RBC Urine WBC Ur Epithelial Cells Urine Bacteria Nasal Screen MRSA (PCR) Random Vancomycin Adenovirus (PCR) B. pertussis DNA (PCR) B.parapertussis DNA PCR C. pneumoniae DNA (PCR) Coronavirus OC43 (PCR) Coronavirus HKU1 (PCR) Coronavirus 229E (PCR) SARS-CoV-2 (PCR) Coronavirus NL63 (PCR) Human Metapneumovir PCR Influenza Type A (PCR) Influenza Type B (PCR) M. pneumoniae (PCR) Parainfluenza 1 (PCR) Parainfluenza 2 (PCR) Parainfluenza 3 (PCR) Parainfluenza 4 (PCR) RSV (PCR) Entero/Rhino (PCR) Streptococcus sp PCR S. pyogenes (PCR) Bld Cult ID Panel PCR 01/17/23 01/17/23 01/17/23 12:00 12:00 12:00 WBC RBC Hgb Hct MCV MCH MCHC RDW Std Deviation RDW Coeff of Norbert Plt Count MPV Immature Gran % (Auto) Neut % (Auto) Lymph % (Auto) [place] % (Auto) Eos % (Auto) Baso % (Auto) Neut # (Auto) Lymph # (Auto) [place] # (Auto) Eos # (Auto) Baso # (Auto) Immature Gran # (Auto) Toxic Vacuolation Dohle Bodies Polychromasia Echinocytes ESR 77 H PT 12.2 H INR 1.1 APTT 35.6 H PTT Ratio 1.3 VBG pH VBG pCO2 VBG pO2 VBG HCO3 VBG O2 Saturation VBG Base Excess Sodium Potassium Chloride Carbon Dioxide Anion Gap BUN Creatinine Est Cr Clr Drug Dosing Est GFR ( Amer) Est GFR (Non-Af Amer) BUN/Creatinine Ratio Glucose POC Glucose Estimat Average Glucose Hemoglobin A1c Lactate Calcium Magnesium Total Bilirubin Direct Bilirubin AST ALT Alkaline Phosphatase Ammonia Troponin I High Sens C-Reactive Protein Total Protein Albumin Globulin Albumin/Globulin Ratio Procalcitonin 3.95 H Urine Color Urine Appearance Urine pH Ur Specific [place] Urine Protein Urine Glucose (UA) Urine Ketones Urine Blood Urine Nitrite Urine Bilirubin Urine Urobilinogen Ur Leukocyte Esterase Urine RBC Urine WBC Ur Epithelial Cells Urine Bacteria Nasal Screen MRSA (PCR) Random Vancomycin Adenovirus (PCR) B. pertussis DNA (PCR) B.parapertussis DNA PCR C. pneumoniae DNA (PCR) Coronavirus OC43 (PCR) Coronavirus HKU1 (PCR) Coronavirus 229E (PCR) SARS-CoV-2 (PCR) Coronavirus NL63 (PCR) Human Metapneumovir PCR Influenza Type A (PCR) Influenza Type B (PCR) M. pneumoniae (PCR) Parainfluenza 1 (PCR) Parainfluenza 2 (PCR) Parainfluenza 3 (PCR) Parainfluenza 4 (PCR) RSV (PCR) Entero/Rhino (PCR) Streptococcus sp PCR S. pyogenes (PCR) Bld Cult ID Panel PCR 01/17/23 01/17/23 01/17/23 12:00 12:10 13:00 WBC RBC Hgb Hct MCV MCH MCHC RDW Std Deviation RDW Coeff of Norbert Plt Count MPV Immature Gran % (Auto) Neut % (Auto) Lymph % (Auto) [place] % (Auto) Eos % (Auto) Baso % (Auto) Neut # (Auto) Lymph # (Auto) [place] # (Auto) Eos # (Auto) Baso # (Auto) Immature Gran # (Auto) Toxic Vacuolation Dohle Bodies Polychromasia Echinocytes ESR PT INR APTT PTT Ratio VBG pH VBG pCO2 VBG pO2 VBG HCO3 VBG O2 Saturation VBG Base Excess Sodium Potassium Chloride Carbon Dioxide Anion Gap BUN Creatinine Est Cr Clr Drug Dosing Est GFR ( Amer) Est GFR (Non-Af Amer) BUN/Creatinine Ratio Glucose POC Glucose Estimat Average Glucose Hemoglobin A1c Lactate Calcium Magnesium Total Bilirubin Direct Bilirubin AST ALT Alkaline Phosphatase Ammonia 27.0 Troponin I High Sens C-Reactive Protein Total Protein Albumin Globulin Albumin/Globulin Ratio Procalcitonin Urine Color Urine Appearance Urine pH Ur Specific [place] Urine Protein Urine Glucose (UA) Urine Ketones Urine Blood Urine Nitrite Urine Bilirubin Urine Urobilinogen Ur Leukocyte Esterase Urine RBC Urine WBC Ur Epithelial Cells Urine Bacteria Nasal Screen MRSA (PCR) Random Vancomycin Adenovirus (PCR) Not Detected B. pertussis DNA (PCR) Not Detected B.parapertussis DNA PCR Not Detected C. pneumoniae DNA (PCR) Not Detected Coronavirus OC43 (PCR) Not Detected Coronavirus HKU1 (PCR) Not Detected Coronavirus 229E (PCR) Not Detected SARS-CoV-2 (PCR) Not Detected Coronavirus NL63 (PCR) Not Detected Human Metapneumovir PCR Not Detected Influenza Type A (PCR) Not Detected Influenza Type B (PCR) Not Detected M. pneumoniae (PCR) Not Detected Parainfluenza 1 (PCR) Not Detected Parainfluenza 2 (PCR) Not Detected Parainfluenza 3 (PCR) Not Detected Parainfluenza 4 (PCR) Not Detected RSV (PCR) Not Detected Entero/Rhino (PCR) Not Detected Streptococcus sp PCR DETECTED A S. pyogenes (PCR) DETECTED A Bld Cult ID Panel PCR See PCR Comment 01/17/23 01/17/23 01/17/23 13:13 13:45 14:30 WBC RBC Hgb Hct MCV MCH MCHC RDW Std Deviation RDW Coeff of Norbert Plt Count MPV Immature Gran % (Auto) Neut % (Auto) Lymph % (Auto) [place] % (Auto) Eos % (Auto) Baso % (Auto) Neut # (Auto) Lymph # (Auto) [place] # (Auto) Eos # (Auto) Baso # (Auto) Immature Gran # (Auto) Toxic Vacuolation Dohle Bodies Polychromasia Echinocytes ESR PT INR APTT PTT Ratio VBG pH 7.30 L VBG pCO2 38 VBG pO2 42 VBG HCO3 19 VBG O2 Saturation 65.9 VBG Base Excess -7.1 Sodium Potassium Chloride Carbon Dioxide Anion Gap BUN Creatinine Est Cr Clr Drug Dosing Est GFR ( Amer) Est GFR (Non-Af Amer) BUN/Creatinine Ratio Glucose POC Glucose Estimat Average Glucose Hemoglobin A1c Lactate 2.0 Calcium Magnesium Total Bilirubin Direct Bilirubin AST ALT Alkaline Phosphatase Ammonia Troponin I High Sens C-Reactive Protein Total Protein Albumin Globulin Albumin/Globulin Ratio Procalcitonin Urine Color Yellow Urine Appearance Turbid A Urine pH 7.5 Ur Specific [place] 1.020 Urine Protein 3+ H Urine Glucose (UA) Negative Urine Ketones Trace H Urine Blood 2+ H Urine Nitrite Negative Urine Bilirubin 2+ H Urine Urobilinogen Negative Ur Leukocyte Esterase 3+ H Urine RBC >30 H Urine WBC >30 H Ur Epithelial Cells 10-20 H Urine Bacteria 3+ H Nasal Screen MRSA (PCR) Random Vancomycin Adenovirus (PCR) B. pertussis DNA (PCR) B.parapertussis DNA PCR C. pneumoniae DNA (PCR) Coronavirus OC43 (PCR) Coronavirus HKU1 (PCR) Coronavirus 229E (PCR) SARS-CoV-2 (PCR) Coronavirus NL63 (PCR) Human Metapneumovir PCR Influenza Type A (PCR) Influenza Type B (PCR) M. pneumoniae (PCR) Parainfluenza 1 (PCR) Parainfluenza 2 (PCR) Parainfluenza 3 (PCR) Parainfluenza 4 (PCR) RSV (PCR) Entero/Rhino (PCR) Streptococcus sp PCR S. pyogenes (PCR) Bld Cult ID Panel PCR 01/17/23 01/17/23 01/17/23 15:22 20:22 20:37 WBC RBC Hgb Hct MCV MCH MCHC RDW Std Deviation RDW Coeff of Norbert Plt Count MPV Immature Gran % (Auto) Neut % (Auto) Lymph % (Auto) [place] % (Auto) Eos % (Auto) Baso % (Auto) Neut # (Auto) Lymph # (Auto) [place] # (Auto) Eos # (Auto) Baso # (Auto) Immature Gran # (Auto) Toxic Vacuolation Dohle Bodies Polychromasia Echinocytes ESR PT INR APTT PTT Ratio VBG pH 7.30 L VBG pCO2 35 L VBG pO2 34 VBG HCO3 17 VBG O2 Saturation < 60.0 VBG Base Excess -8.4 Sodium Potassium Chloride Carbon Dioxide Anion Gap BUN Creatinine Est Cr Clr Drug Dosing Est GFR ( Amer) Est GFR (Non-Af Amer) BUN/Creatinine Ratio Glucose POC Glucose 274 H Estimat Average Glucose Hemoglobin A1c Lactate Calcium Magnesium Total Bilirubin Direct Bilirubin AST ALT Alkaline Phosphatase Ammonia Troponin I High Sens 1294.2 H* D C-Reactive Protein Total Protein Albumin Globulin Albumin/Globulin Ratio Procalcitonin Urine Color Urine Appearance Urine pH Ur Specific [place] Urine Protein Urine Glucose (UA) Urine Ketones Urine Blood Urine Nitrite Urine Bilirubin Urine Urobilinogen Ur Leukocyte Esterase Urine RBC Urine WBC Ur Epithelial Cells Urine Bacteria Nasal Screen MRSA (PCR) Random Vancomycin Adenovirus (PCR) B. pertussis DNA (PCR) B.parapertussis DNA PCR C. pneumoniae DNA (PCR) Coronavirus OC43 (PCR) Coronavirus HKU1 (PCR) Coronavirus 229E (PCR) SARS-CoV-2 (PCR) Coronavirus NL63 (PCR) Human Metapneumovir PCR Influenza Type A (PCR) Influenza Type B (PCR) M. pneumoniae (PCR) Parainfluenza 1 (PCR) Parainfluenza 2 (PCR) Parainfluenza 3 (PCR) Parainfluenza 4 (PCR) RSV (PCR) Entero/Rhino (PCR) Streptococcus sp PCR S. pyogenes (PCR) Bld Cult ID Panel PCR 01/17/23 01/18/23 01/18/23 Unknown 00:36 07:10 WBC RBC Hgb Hct MCV MCH MCHC RDW Std Deviation RDW Coeff of Norbert Plt Count MPV Immature Gran % (Auto) Neut % (Auto) Lymph % (Auto) [place] % (Auto) Eos % (Auto) Baso % (Auto) Neut # (Auto) Lymph # (Auto) [place] # (Auto) Eos # (Auto) Baso # (Auto) Immature Gran # (Auto) Toxic Vacuolation Dohle Bodies Polychromasia Echinocytes ESR PT INR APTT PTT Ratio VBG pH 7.31 L VBG pCO2 36 L VBG pO2 37 VBG HCO3 18 VBG O2 Saturation 62.3 VBG Base Excess -7.4 Sodium 133 L Potassium 3.7 Chloride 105 Carbon Dioxide 16 L Anion Gap 12 H BUN 84 H Creatinine 2.67 H Est Cr Clr Drug Dosing 26.9 Est GFR ( Amer) 26.8 Est GFR (Non-Af Amer) 23.2 BUN/Creatinine Ratio 31.5 H Glucose 135 H POC Glucose Estimat Average Glucose Hemoglobin A1c Lactate Calcium 7.9 L Magnesium 1.6 L Total Bilirubin 0.6 Direct Bilirubin AST 54 H ALT 38 Alkaline Phosphatase 62 Ammonia Troponin I High Sens C-Reactive Protein Total Protein 5.9 L Albumin 2.8 L Globulin 3.1 Albumin/Globulin Ratio 0.9 Procalcitonin Urine Color Urine Appearance Urine pH Ur Specific [place] Urine Protein Urine Glucose (UA) Urine Ketones Urine Blood Urine Nitrite Urine Bilirubin Urine Urobilinogen Ur Leukocyte Esterase Urine RBC Urine WBC Ur Epithelial Cells Urine Bacteria Nasal Screen MRSA (PCR) Negative Random Vancomycin Adenovirus (PCR) B. pertussis DNA (PCR) B.parapertussis DNA PCR C. pneumoniae DNA (PCR) Coronavirus OC43 (PCR) Coronavirus HKU1 (PCR) Coronavirus 229E (PCR) SARS-CoV-2 (PCR) Coronavirus NL63 (PCR) Human Metapneumovir PCR Influenza Type A (PCR) Influenza Type B (PCR) M. pneumoniae (PCR) Parainfluenza 1 (PCR) Parainfluenza 2 (PCR) Parainfluenza 3 (PCR) Parainfluenza 4 (PCR) RSV (PCR) Entero/Rhino (PCR) Streptococcus sp PCR S. pyogenes (PCR) Bld Cult ID Panel PCR 01/18/23 01/18/23 01/18/23 07:10 07:10 07:10 WBC 17.40 H RBC 3.01 L Hgb 9.3 L Hct 28.1 L MCV 93.4 MCH 30.9 MCHC 33.1 RDW Std Deviation 52.7 H RDW Coeff of Norbert 15.2 H Plt Count 75 L MPV 10.5 Immature Gran % (Auto) 0.7 Neut % (Auto) 91.3 Lymph % (Auto) 3.7 [place] % (Auto) 3.9 Eos % (Auto) 0.2 Baso % (Auto) 0.2 Neut # (Auto) 15.90 H Lymph # (Auto) 0.64 L [place] # (Auto) 0.67 H Eos # (Auto) 0.03 Baso # (Auto) 0.04 Immature Gran # (Auto) 0.12 Toxic Vacuolation Dohle Bodies 1+ Polychromasia 1+ Echinocytes ESR PT INR APTT PTT Ratio VBG pH VBG pCO2 VBG pO2 VBG HCO3 VBG O2 Saturation VBG Base Excess Sodium Potassium Chloride Carbon Dioxide Anion Gap BUN Creatinine Est Cr Clr Drug Dosing Est GFR ( Amer) Est GFR (Non-Af Amer) BUN/Creatinine Ratio Glucose POC Glucose Estimat Average Glucose 140 Hemoglobin A1c 6.5 H Lactate Calcium Magnesium Total Bilirubin Direct Bilirubin AST ALT Alkaline Phosphatase Ammonia Troponin I High Sens C-Reactive Protein Total Protein Albumin Globulin Albumin/Globulin Ratio Procalcitonin Urine Color Urine Appearance Urine pH Ur Specific [place] Urine Protein Urine Glucose (UA) Urine Ketones Urine Blood Urine Nitrite Urine Bilirubin Urine Urobilinogen Ur Leukocyte Esterase Urine RBC Urine WBC Ur Epithelial Cells Urine Bacteria Nasal Screen MRSA (PCR) Random Vancomycin 12.2 Adenovirus (PCR) B. pertussis DNA (PCR) B.parapertussis DNA PCR C. pneumoniae DNA (PCR) Coronavirus OC43 (PCR) Coronavirus HKU1 (PCR) Coronavirus 229E (PCR) SARS-CoV-2 (PCR) Coronavirus NL63 (PCR) Human Metapneumovir PCR Influenza Type A (PCR) Influenza Type B (PCR) M. pneumoniae (PCR) Parainfluenza 1 (PCR) Parainfluenza 2 (PCR) Parainfluenza 3 (PCR) Parainfluenza 4 (PCR) RSV (PCR) Entero/Rhino (PCR) Streptococcus sp PCR S. pyogenes (PCR) Bld Cult ID Panel PCR 01/18/23 07:17 WBC RBC Hgb Hct MCV MCH MCHC RDW Std Deviation RDW Coeff of Norbert Plt Count MPV Immature Gran % (Auto) Neut % (Auto) Lymph % (Auto) [place] % (Auto) Eos % (Auto) Baso % (Auto) Neut # (Auto) Lymph # (Auto) [place] # (Auto) Eos # (Auto) Baso # (Auto) Immature Gran # (Auto) Toxic Vacuolation Dohle Bodies Polychromasia Echinocytes ESR PT INR APTT PTT Ratio VBG pH VBG pCO2 VBG pO2 VBG HCO3 VBG O2 Saturation VBG Base Excess Sodium Potassium Chloride Carbon Dioxide Anion Gap BUN Creatinine Est Cr Clr Drug Dosing Est GFR ( Amer) Est GFR (Non-Af Amer) BUN/Creatinine Ratio Glucose POC Glucose 145 H Estimat Average Glucose Hemoglobin A1c Lactate Calcium Magnesium Total Bilirubin Direct Bilirubin AST ALT Alkaline Phosphatase Ammonia Troponin I High Sens C-Reactive Protein Total Protein Albumin Globulin Albumin/Globulin Ratio Procalcitonin Urine Color Urine Appearance Urine pH Ur Specific [place] Urine Protein Urine Glucose (UA) Urine Ketones Urine Blood Urine Nitrite Urine Bilirubin Urine Urobilinogen Ur Leukocyte Esterase Urine RBC Urine WBC Ur Epithelial Cells Urine Bacteria Nasal Screen MRSA (PCR) Random Vancomycin Adenovirus (PCR) B. pertussis DNA (PCR) B.parapertussis DNA PCR C. pneumoniae DNA (PCR) Coronavirus OC43 (PCR) Coronavirus HKU1 (PCR) Coronavirus 229E (PCR) SARS-CoV-2 (PCR) Coronavirus NL63 (PCR) Human Metapneumovir PCR Influenza Type A (PCR) Influenza Type B (PCR) M. pneumoniae (PCR) Parainfluenza 1 (PCR) Parainfluenza 2 (PCR) Parainfluenza 3 (PCR) Parainfluenza 4 (PCR) RSV (PCR) Entero/Rhino (PCR) Streptococcus sp PCR S. pyogenes (PCR) Bld Cult ID Panel PCR Diagnostic Findings Echocardiogram performed 01/17/2023: Ejection fraction estimated 30 35%. Mild left atrial dilation. Mild mitral annular calcification. Mild mitral regurgitation. I performed a complete interrogation of his single-chamber ICD. Normal sensing and threshold. No therapies. No significant ventricular pacing. He does have multiple episodes logged as atrial fibrillation. However this is simply atrial and ventricular ectopy. No actual atrial fibrillation. OptiVol currently normal. Chest x-ray obtained today suggested Mild pulmonary edema PG Care Time/CCT Total # of Minutes Spent Total Time Spent with Patient: Total time spent is greater than 50% in coordination of care (as documented) at patient's floor/unit and/or counseling patient: Coding Level of Care Code 86720 INT INP/OBS CARE 3/75MIN Diagnoses Elevated troponin I level R77.8 CAD (coronary artery disease) I25.10 Associated angina: without angina Coronary Disease-Associated Artery/Lesion type: [place] artery [place] vs. transplanted heart: [place] heart Chronic systolic heart failure I50.22 ICD (implantable cardioverter-defibrillator) in place Z95.810 Ischemic cardiomyopathy I25.5 Wide-complex tachycardia R00.0 CPT Codes Implantable Defib Single Lead Programming - 90141 ([id number]) 26 - PROFESSIONAL COMPONENT (2) CAD (coronary artery disease) Associated angina: without angina Coronary Disease-Associated Artery/Lesion type: [place] artery [place] vs. transplanted heart: [place] heart Qualified Code(s): I25.10 - Atherosclerotic heart disease of [place] coronary artery w ithout angina pectoris
[2023-01-18] MEDS ORDERED: NOREPINEPHRINE/D5W 4 MG/250 ML IV ONE (10:50)
[2023-01-18] MEDS ORDERED: STAT IV Infusion **Titration per Protocol STA ×3 (11:01→16:01)
[2023-01-18 11:06] LABS: iSTAT Art Bld Gas pCO2 Correct 29 mmHg (35-46); iSTAT Art Bld Gas pH Corrected 7.325 (7.35-7.45); iSTAT Arterial Blood Gas HCO3 15 meg/L (19-24); iSTAT Arterial Blood Gas pCO2 29 mmHg (35-46); iSTAT Arterial Blood Gas pH 7.32 (7.35-7.45); iSTAT Arterial Blood Gas pO2 81 mmHg (80-95); iSTAT Arterial Blood Gas pO2 C 80; iSTAT Carbon Dioxide 16 mmol/L (24-31); iSTAT Hematocrit 24 % (42-52); iSTAT Hemoglobin 8.2 g/dl (14.0-18.0); iSTAT Potassium 3.6 mmol/L (3.3-5.0); iSTAT Site Art Line; iSTAT Sodium 136 mmol/L (135-144)
--- NOTE | 2023-01-18 11:14 | Procedure Note ---
Procedure Note Date of Service January 18, 2023 Note ARTERIAL LINE PROCEDURE NOTE: Procedure: Arterial Line Placement Provider: Bong Aguilar MD Indication: Monitoring on Pressors Anesthesia: None Site: Right axillary. Patient's radial artery was absent due to surgery on the left. The right radial artery was less than 1 mm vessel and not appropriate for cannulization. Ulnar artery was the only artery supplying distal flow to the hand so elected to not proceed there. The patient is BKA on the left so the left groin was out and wanted to preserve the right groin so elected to proceed with right axillary arterial line Consent: Procedure was emergent. Patient is obtunded and unable to provide consent. Family not immediately available A time-out was completed verifying correct patient, procedure, site, positioning, and implant(s) or special equipment if applicable. The patient's right medial upper extremity was prepped and draped in the usual sterile fashion. Ultrasound guidance was used to aid needle placement. A 20g Arrow arterial line was introduced into the left axillary artery artery under direct visualization. The syringe was withdrawn leaving the needle in place. A wire was passed through the needle into the artery. The needle was withdrawn leaving the wire in place. I was able to ultrasound the wire within the vessel. We did not save images due to technical issues. A small skin maine was made with a scalpel. A 12 cm 20-gauge catheter was threaded over the wire, and the wire was removed with appropriate blood return through the catheter. Good waveform was observed. The patient tolerated the procedure well. Blood Loss: Less than 5 mL Complications: None Coding CPT Codes Tubes, Drains, and Vasc Access - Tubes, Drains, and Vasc Access: [id number] Arterial Cath/Cannulation Sampling/Monitoring/Transfusion ([id number]) Tubes, Drains, and Vasc Access - Tubes, Drains, and Vasc Access: [id number] Ultrasound Guidance For Vascular ([id number]) [facility] [place] Procedure Codes (Charges) Tubes, Drains, and Vasc Access Procedure 1: Tubes, Drains, and Vasc Access: [id number] Arterial Cath/Cannulation Sampling/Monitoring/Transfusion Procedure 2: Tubes, Drains, and Vasc Access: [id number] Ultrasound Guidance For Vascular
[2023-01-18] MEDS ORDERED: NOREPINEPHRINE/D5W 4 MG/250 ML PLCT IV SCH (11:15)
--- NOTE | 2023-01-18 11:18 | Procedure Note ---
Procedure Note Date of Service January 18, 2023 Note CENTRAL LINE PROCEDURE NOTE: Procedure: Central Line Placement Provider: Bong Aguilar MD Indication: Central Drug Administration, Poor Venous Access, Multiple Lab Draws Necessary, etc. Anesthesia: None Site: Left internal jugular Procedure was emergent. Patient unable to provide consent due to encephalopathy. No family immediately available. A time-out was completed verifying correct patient, procedure, site, positioning , and implants(s) or special equipment if applicable. Patients left neck was cleansed and draped in the typical sterile fashion using Chloraprep. The Internal Jugular Vein and Carotid Artery were identified using ultrasound. The Internal Jugular vein was cannulated under direct ultrasound guidance using an introducer needle on a syringe. Good venous blood return was maintained prior to removal of syringe from introducer needle. Using Seldinger Technique, a guide wire was advanced through the introducer needle without resistance. The introducer needle was removed and ultrasound images were obtained of the guide wire within the Internal Jugular Vein and saved to the patients medical record. A small incision was made in penetrating fashion at the guide wire insertion site utilizing an 11 blade scalpel. The dilator was advanced to the vessel without resistance. The dilator was exchanged for the triple lumen catheter which was advanced into the vessel without resistance. The guide wire was removed intact from the catheter without issue. Claves were placed on each catheter tip with confirmation of good blood flow from each lumen. Each port was easily flushed with sterile saline. The catheter was placed at the hub and sutured in place. BioPatch was applied to the catheter and a sterile Tegaderm dressing was applied over the catheter with careful attention to sterility. Patient tolerated procedure well. No immediate complications were met. Post procedure x-ray was completed, placement was appropriate and no pneumothorax was noted. Estimated blood loss: Less than 5 mL Coding CPT Codes Tubes, Drains, and Vasc Access - Tubes, Drains, and Vasc Access: [id number] Place catheter in vein superior or inferior vena cava ([id number]) Tubes, Drains, and Vasc Access - Tubes, Drains, and Vasc Access: [id number] Ultrasound Guidance For Vascular ([id number]) [facility] [place] Procedure Codes (Charges) Tubes, Drains, and Vasc Access Procedure 1: Tubes, Drains, and Vasc Access: [id number] Place catheter in vein superior or inferior vena cava Procedure 2: Tubes, Drains, and Vasc Access: [id number] Ultrasound Guidance For Vascular
--- NOTE | 2023-01-18 11:34 | XRay Report ---
SINGLE VIEW CHEST CLINICAL HISTORY: Central venous catheter placement. FINDINGS: An AP, portable, upright chest radiograph is compared to study performed earlier the same d ay 01/18/2023. The examination is degraded by portable technique and apical lordotic positioning. A le ft internal jugular central venous catheter has been placed. The tip projects over the SVC. A single- lead cardiac AICD is unchanged in position and partially obscures the left upper chest. The heart is enlarged noting atherosclerotic calcification of the thoracic aorta. There is pulmonary vascular ora estion. Small pleural effusions are suspected. Scarring/atelectasis is noted at the lung bases. No pn eumothorax is seen. The bony thorax is grossly intact. Fusion hardware is seen in the cervicothoracic and lumbar spine. IMPRESSION: 1. A left internal jugular central venous catheter has been placed as above. No pneumothorax is ident ified postprocedure. 2. Cardiomegaly and AICD with evidence of congestive failure. This has modestly improved from today's earlier examination. 3. Small pleural effusions. ACT 112: Negative or not required by law.' Electronically signed by: Vinicius Almaraz M.D. 01/18/2023 11:32 AM
[2023-01-18] MEDS ORDERED: SODIUM BICARBONATE 8.4% INJ 50 MEQ/50 ML VIAL IV ONE ×2 (11:42→12:30)
[2023-01-18] MEDS ORDERED: MAGNESIUM SULFATE / D5W 1 GM/100 ML BAG IV ONE ×2 (11:43→19:23)
[2023-01-18] MEDS ORDERED: SODIUM BICARB 8.4% INJ 50 MEQ/50 ML SYR IV ONE ×2 (12:05→12:30)
[2023-01-18] MEDS: ICU Protocol for HYPERglycemia SCH ×2 (12:22→20:35)
--- NOTE | 2023-01-18 14:50 | Pharmacy Report ---
Pharmacy Glycemic Short Note 2 - Date of Service January 18, 2023 - Glycemic Short BSG Results (Last 24 hours): 01/17/23 01/18/23 01/18/23 20:22 07:10 07:17 Glucose 135 H POC Glucose 274 H 145 H 01/18/23 11:19 Glucose POC Glucose 117 H OUTPATIENT ANTIDIABETIC REGIMEN: * Glipizide ER 5 mg daily * Metformin 500 mg PO BID * Lantus 18 units SQ HS HbA1c = 6.5% on 01/18/23 ASSESSMENT: * 72 y/o M admitted for severe sepsis, acute kidney injury and bacteremia. He has a history of Type 2 diabetes managed on oral meds and basal insulin daily at home. * Patient received 18 units of basal insulin last night. Will continue the basal dose scale tonight as well since fasting BSG = 145 mg/dl this AM. * Novolog was started based on stress of 2. Pre-lunch BSG = 117 mg/dl. Novolog parameters continued the same. PLAN FOR INPATIENT GLYCEMIC CONTROL: * Hold outpatient oral diabetes medications * Basal insulin * Lantus 10-18 units dose scale SQ HS based on BSG * Bolus insulin * NovoLog per scale ACHS or Q6hrs while NPO * Goal Range: Low 110 mg/dL - High 140 mg/dL * Correction Factor: 25 mg/dL/unit * Nutritional / Prandial insulin per carb ratio of 1 unit per 8 grams CHO consumed
[2023-01-18] MEDS ORDERED: VANCOMYCIN HCL 1,500 MG in SODIUM CHLORIDE 0.9% 500 ML IV SCH (15:45)
[2023-01-18] MEDS ORDERED: AMIODARONE 360MG / 200ML D5W IV ONE (16:00)
[2023-01-18] MEDS ORDERED: AMIODARONE 150MG / 100ML D5W IV ONE (16:00)
[2023-01-18] MEDS ORDERED: AMIODARONE IV BOLUS & DRIP IV STA (16:01)
[2023-01-18] MEDS ORDERED: AMIODARONE / D5W 150 MG/100 ML BAG IV STA (16:01)
[2023-01-18] MEDS ORDERED: 0.2 MICRON FILTER SET 1 EACH IV STA (16:01)
[2023-01-18] MEDS ORDERED: PHENYLEPHRINE HCL 25 MG/250 ML NSS IV ONE (16:03)
[2023-01-18] MEDS ORDERED: AMIODARONE / D5W 360 MG/200 ML BAG IV ONE (16:11)
[2023-01-18] MEDS: PHENYLEPHRINE/NSS 25 MG/250 ML BAG IV SCH ×2 (16:16→18:30)
[2023-01-18 16:22] LABS: iSTAT Allen Test Pass; iSTAT Art Bld Gas pCO2 Correct 24 mmHg (35-46); iSTAT Art Bld Gas pH Corrected 7.356 (7.35-7.45); iSTAT Arterial Blood Gas HCO3 13 meg/L (19-24); iSTAT Arterial Blood Gas pCO2 24 mmHg (35-46); iSTAT Arterial Blood Gas pH 7.36 (7.35-7.45); iSTAT Arterial Blood Gas pO2 89 mmHg (80-95); iSTAT Arterial Blood Gas pO2 C 90; iSTAT Carbon Dioxide 14 mmol/L (24-31); iSTAT Hematocrit 29 % (42-52); iSTAT Hemoglobin 9.9 g/dl (14.0-18.0); iSTAT Potassium 3.4 mmol/L (3.3-5.0); iSTAT Site R Brachial; iSTAT Sodium 135 mmol/L (135-144)
[2023-01-18 16:29] LABS: BUN Creatinine Ratio 31.3 (10-20); Creatinine Clr Calc Pharmacy 25.6 ml/min; Est GFR (African American) 25.2 ml/min; Est GFR (Non-African American) 21.8 ml/min; Magnesium 1.9 mg/dl (1.7-2.4); Potassium 3.4 mmol/L (3.5-5.1)
[2023-01-18] MEDS: PHENYLEPHRINE HCL 100 MG in SODIUM CHLORIDE 0.9% 240 ML IV SCH (20:10)
[2023-01-18] MEDS: POTASSIUM CHLORIDE / WTR 20 MEQ/100 ML PLCT IV SCH ×2 (20:11→22:20)
[2023-01-18] MEDS: QUEtiapine FUMARATE 25 MG TABLET PO SCH (20:13)
[2023-01-18] MEDS: LANTUS PER UNIT CHARGE SQ SCH (20:34)
--- NOTE | 2023-01-18 21:24 | Hospitalist Progress Note ---
Date of Service January 18, 2023 Assessment & Plan (1) Sepsis: Plan: Sepsis with altered mental status, suspect due to UTI Metabolic encephalopathy Presents with leukocytosis of 22, ESR 77, lactate 2.2, PAULA Lactate on admit 2.2 Patient has multiple potential sources of infection. He has a suprapubic catheter due to chronic outlet obstruction. Generally has difficulty with sanitization and care of this at home. Has had some erythema/discharge from this recently, UA is always infected appearing due to indwelling catheter. Patient has upper chest erythema, this is in a contact distribution which appears in the exposed area of the chest but spares the lower abdomen. There is no tenderness or warmth to this. He has left upper anterior chest does have yellow-colored crust/scale surrounding an annular area of erythema, notes that this has been worse in the last few days. He has multiple right lower extremity wounds. Has a posterior calf wound, distal lateral right lower leg wound, right lateral malleoli are wound, and heel superficial wound. Of these the proximal calf ulceration does have some purulent material and some surrounding scant erythema, other wounds are without erythema/discharge. CTlower extremity ordered for evaluation of osteo and deep infection given multiple wounds and septic appearance. w/ sepsis, chronic poor healing wounds, and difficulty with hygiene/concern for chronic wound contamination and above will cover broadly with cefepime, vancomycin, and Flagyl. History is limited, patient poorly oriented. Denies any infectious symptoms but has poor recall hs-troponin 2556 Procalcitonin 3.95 consistent with sepsis CRP 29 UA is infected appearing CThead: No acute findings CTA/P: Small bilateral pleural effusions, horseshoe kidney, no acute abnormalities or bowel obstruction CXR: Cardiomegaly and mild pulmonary edema On arrival was hypotensive to 94/59, normotensive following 2 L normal saline Empirically treated with Zosyn in ER Patient is with heart failure reduced ejection fraction, clinically with PAULA, minimal lower extremity edema, and hypotension appears intravascularly depleted. CXR is with pulmonary edema? Overload versus systolic failure. High- sensitivity troponin is elevated, attempting to obtain last echo for comparison. Last echo available was prebypass and 30-35% in 2019. Lactate has improved slightly with fluids, will continue antibiotics and fluid boluses as clinically indicated for hypotension. If rising lactate/persistent hypotension with evidence of fluid overload due to his concurrent heart failure may need pressor augmentation. At time of hospitalist consultation as lactate is improving he is normotensive can defer this. Stat echo is pending for interval EF change VBG 7.30/38/42/19, partially compensated respiratory acidosis On 01/18 Patient was hypotensive with SBP in the 70s despite receiving close to 5 liters of IVF and IV albumin. Discussed with chief engineer, patient will be transferred to the ICU. Patient will require a central line and will need to be on pressors. will also consult cardiology Heart failure with reduced ejection Last echo 2018, this was pre-bypass. EF 30-35% at that time EKG: Sinus with first-degree AV block, PVCs. Right bundle branch block. QTc 531. Compared to 07/2021 diffuse QRS morphology change Follows with cardiology for CHF. 09/2022 sedentary, but without symptoms of decompensated failure. Borderline low pressures at baseline and did not tolerate spironolactone. On DAPT plus Plavix post bypass, no history of stents. DELATORRE to LAD, FERNANDO to acute marginal, radial graft to OM was performed by [facility] in 2002 has a single-chamber ICD. Magnesium 1.1, IV and p.o. repletion ordered. Optimize potassium 4.0, magnesium 2.0 Patient with elevated troponin although no chest pain or preceding anginal symptoms to this admission. Suspect this is demand in the setting of sepsis. Given that patient is both hypotensive with elevated lactate but evidence of pulmonary edema with sepsis, updated echo was obtained. Patient did respond well to 2 L of fluids with improvement lactate and blood pressure, however is at risk for volume overload due to reduced EF. If patient were to show signs of progressive fluid overload and still have hypotension/uptrending perfusion markers would require ICU level of care and pressors at that time. This is not required at time of hospitalist reassessment, will admit to PCU Chronic bladder outlet obstruction Suprapubic catheter appears to be functioning normally. Patient has had issues with hygiene of this in the past UA is chronically infected appearing due to catheter Follow for culture Antibiotics as above No signs of obstructed catheter at time of assessment PAULA Baseline creatinine around 1.92.2, admitting creatinine 2.75 -With sepsis S/p 2 L saline in ER. Defer additional aggressive boluses due to pulmonary edema and history of heart failure BMP daily Degenerative disc disease, lumbar disc disease A CDI C3-4, C7 corpectomy, removal of C7 mass Past history of lumbar decompression and fusion complicated by subsequent abscesses and infection, stable following recurrent incision and drainage several years ago. - No back pain on admit Uncontrolled type II DM On outpatient glargine 18 units, With chronic right heel wounds and nephropathy, retinopathy Basal bolus based on home glargine entered Goal BSG [id number] Glucose AC/at bedtime or every 6 hours while NPO Pharmacy consulted for assistance in management while patient is septic With history of left BKA. Stump is with a 1 cm area of erythema and ulceration, no tenderness/warmth Hyperlipidemia: Continue statin, hold if daptomycin is started DVT prophylaxis: Heparin Diet: N.p.o. pending improvement in mentation, then DM2/heart healthy/low-sodium Disposition: PCU CODE STATUS: Full code, discussed and confirmed with patient and his (2) PAULA (acute kidney injury): (3) Elevated troponin I level: (4) Thrombocytopenia: (5) Stage II pressure ulcer of right hip: (6) Type 2 diabetes mellitus: (7) ICD (implantable cardioverter-defibrillator) in place: (8) CAD (coronary artery disease): (9) Chronic systolic heart failure: (10) PAD (peripheral artery disease): (11) Hypothyroidism: (12) Carotid artery stenosis: (13) History of cardiac cath: (14) HTN (hypertension): Admission and Anticipated Discharge Date Admission Date: January 17, 2023 Subjective Patient is lethargic Review of Systems Review of Systems: All systems reviewed & are unremarkable except as noted in HPI & below Physical Exam Physical Exam: General: Patient is lethargic. HEENT: Atraumatic, normocephalic. PERLAA. [place] with yellow crust bilaterally. No injection/erythema. Pulm: Diminished, grossly clear. Reduced air movement in bases Symmetrical chest rise. No increased work of breathing. No respiratory distress. Cardiac: regular, slightly tachycardic. +sm. Radial pulses intact and symmetrical. Abdominal: Softly distended. No guarding/rebound. BS present. : Suprapubic catheter present. Trace erythema at site. Urine clouded, dark yellow Ext: Left BKA with 1 cm superficial ulcerated lesion, small surrounding amount of eschar. Right calf with 3 cm purulent annular lesion. Right lower extremity distal to calf with small 1 cm ulcer without erythema/discharge/purulence, right lateral malleoli are ulcer without purulence/discharge. Right heel with superficial ulcer no erythema/purulence Results & Data Results & Data Vital Signs (Past 12 Hours) Vital Signs Temp Pulse Resp BP Pulse Ox O2 Del Method 01/18/23 18:30 87 26 H 97 01/18/23 18:00 85 30 H 97 01/18/23 18:00 104/51 L 01/18/23 17:30 88 24 96 01/18/23 17:00 83 27 H 90 01/18/23 16:30 89 27 H 98 01/18/23 16:24 116/51 L 01/18/23 16:24 94 H 24 97 01/18/23 16:15 89/44 L 01/18/23 16:15 84 23 98 01/18/23 16:01 107 H 23 98 01/18/23 16:01 119/47 L 01/18/23 16:00 174 H 23 98 01/18/23 15:30 95 H 23 98 01/18/23 15:00 93 H 25 H 97 01/18/23 14:30 89 22 99 01/18/23 14:00 83 19 99 01/18/23 14:00 107/40 L 01/18/23 13:30 85 19 98 01/18/23 13:01 90 23 98 01/18/23 13:01 106/59 L 01/18/23 13:00 83 22 98 01/18/23 12:30 83 13 97 01/18/23 16:00 37.1 C 01/18/23 12:00 80 22 98 01/18/23 12:00 89/54 L 01/18/23 11:06 126/77 01/18/23 11:06 82 25 H 99 01/18/23 11:00 85 24 96 01/18/23 11:00 75/56 L 01/18/23 10:15 88/56 L 01/18/23 10:15 80 27 H 95 01/18/23 10:00 79 20 97 01/18/23 12:54 Room Air 01/18/23 11:38 36.9 C 01/18/23 10:47 Room Air PG Care Time/CCT Total # of Minutes Spent Total Time Spent with Patient: Total time spent is greater than 50% in coordination of care (as documented) at patient's floor/unit and/or counseling patient: Critical Care Time: Yes Total Critical Care Time: 31 31 Coding Level of Care Code 73842 SUB INP/OBS CARE 3/50MIN (25 - SIGNIFICANT, SEPARATELY IDENTIFIABLE ) Diagnoses Sepsis A41.9 PAULA (acute kidney injury) N17.9 Elevated troponin I level R77.8 Thrombocytopenia D69.6 Stage II pressure ulcer of right hip L89.212 Type 2 diabetes mellitus E11.52; Z79.4 Diabetes mellitus complication detail: with peripheral angiopathy with gangrene Diabetes mellitus complication status: with circulatory complication Diabetes mellitus care home insulin use: with care home use ICD (implantable cardioverter-defibrillator) in place Z95.810 CAD (coronary artery disease) I25.10 Associated angina: without angina Coronary Disease-Associated Artery/Lesion type: [place] artery [place] vs. transplanted heart: [place] heart Chronic systolic heart failure I50.22 PAD (peripheral artery disease) I73.9 Hypothyroidism E03.9 Hypothyroidism type: acquired Carotid artery stenosis I65.29 History of cardiac cath Z98.890 HTN (hypertension) I10 Hypertension type: essential hypertension Additional Codes Critical Care Time - Critical Care Time: Yes ([id number]) (6) Type 2 diabetes mellitus Diabetes mellitus complication detail: with peripheral angiopathy with gangrene Diabetes mellitus complication status: with circulatory complication Diabetes mellitus care home insulin use: with long term care administrator use Qualified Code(s): E11.52 - Type 2 diabetes mellitus with diabetic peripheral angiopathy with gangrene; Z79.4 - penitentiary (current) use of insulin (8) CAD (coronary artery disease) Associated angina: without angina Coronary Disease-Associated Artery/Lesion type: [place] artery [place] vs. transplanted heart: [place] heart Qualified Code(s): I25.10 - Atherosclerotic heart disease of [place] coronary artery without angina pectoris (11) Hypothyroidism Hypothyroidism type: acquired Qualified Code(s): E03.9 - Hypothyroidism, unspecified (14) HTN (hypertension) Hypertension type: essential hypertension Qualified Code(s): I10 - Essential (primary) hypertension
[2023-01-18] MEDS: AMIODARONE / D5W 360 MG/200 ML BAG IV SCH (21:45)
[2023-01-18] MEDS ORDERED: ALBUMIN 5% 250 ML IV ONE (23:13)
[2023-01-19] MEDS: PHENYLEPHRINE HCL 100 MG in SODIUM CHLORIDE 0.9% 240 ML IV SCH ×6 (00:57→21:44)
[2023-01-19] MEDS: AMIODARONE / D5W 360 MG/200 ML BAG IV SCH ×4 (03:46→21:44)
[2023-01-19 05:48] LABS: iSTAT Art Bld Gas pCO2 Correct 25 mmHg (35-46); iSTAT Art Bld Gas pH Corrected 7.336 (7.35-7.45); iSTAT Arterial Blood Gas HCO3 13 meg/L (19-24); iSTAT Arterial Blood Gas pCO2 25 mmHg (35-46); iSTAT Arterial Blood Gas pH 7.34 (7.35-7.45); iSTAT Arterial Blood Gas pO2 77 mmHg (80-95); iSTAT Arterial Blood Gas pO2 C 78; iSTAT Carbon Dioxide 14 mmol/L (24-31); iSTAT Hematocrit 30 % (42-52); iSTAT Hemoglobin 10.2 g/dl (14.0-18.0); iSTAT Potassium 3.8 mmol/L (3.3-5.0); iSTAT Site Art Line; iSTAT Sodium 135 mmol/L (135-144)
[2023-01-19 05:49] LABS: Albumin Level 2.8 gm/dl (3.4-5.0); Bilirubin Direct 0.3 mg/dl (0-0.2); Bilirubin,Total 0.8 mg/dl (0.2-1.0); Calcium 7.8 mg/dl (8.6-10.3); Creatinine Clr Calc Pharmacy 23.4 ml/min; Est GFR (African American) 22.7 ml/min; Est GFR (Non-African American) 19.6 ml/min; Phosphorus 3.5 mg/dl (2.5-4.9); Potassium 3.9 mmol/L (3.5-5.1); Total Protein 5.7 gm/dl (6.0-8.3)
[2023-01-19 05:51] LABS: Basophils # (auto) 0.09 K/uL (0-0.2); Basophils % (auto) 0.2 %; Echinocytes 2+; Eosinophils # (auto) 0.03 K/uL (0-0.50); Eosinophils % (auto) 0.1 %; Hematocrit (blood only) 29.3 % (42.0-52.0); Hemoglobin 9.8 g/dl (14.0-18.0); Immature Granulocytes # (auto) 0.67 K/uL (0.01-0.20); Immature Granulocytes % (auto) 1.7 %; Lymphocytes # (auto) 0.96 K/uL (1.2-3.4); Lymphocytes % (auto) 2.4 %; Mean Corpuscular Hemoglobin 30.1 pg (25.0-34.0); Mean Corpuscular Hgb Conc 33.4 g/dL (32.0-36.0); Mean Corpuscular Volume 89.9 fL (80.0-100.0); Mean Platelet Volume 9.7 fL (9.4-12.4); Monocytes # (auto) 1.47 K/uL (0.11-0.59); Monocytes % (auto) 3.7 %; Neutrophils # (auto) 36.15 K/uL (1.40-6.50); Neutrophils % (auto) 91.9 %; Platelet Count 176 K/uL (130-400); Polychromasia 1+; RDW Coefficient of Variation 15.1 % (11.5-14.5); RDW Standard Deviation 50.5 fL (36.4-46.3); Red Blood Count 3.26 M/uL (4.70-6.10); White Blood Count 39.37 K/ul (4.8-10.8)
[2023-01-19] MEDS: ERYTHROMYCIN OP OINT 5 MG/GM 3.5 GM TUBE OP SCH ×3 (06:01→17:11)
[2023-01-19] MEDS: CEFEPIME 1,000 MG in SYRINGE 0 ML IV SCH (06:02)
[2023-01-19] MEDS: LEVOTHYROXINE SODIUM 75 MCG TABLET PO SCH (06:02)
[2023-01-19] MEDS ORDERED: SODIUM BICARB 8.4% INJ 50 MEQ/50 ML SYR IV STA (06:24)
[2023-01-19] MEDS ORDERED: PLASMA-LYTE A 1,000 ML IV SCH (06:30)
[2023-01-19] MEDS: INSULIN ASPART PER UNIT CHARGE SC SCH ×4 (07:39→21:43)
[2023-01-19] MEDS: ICU Protocol for HYPERglycemia SCH ×4 (07:39→21:45)
--- NOTE | 2023-01-19 08:27 | Cardiology Progress Note ---
Date of Service January 19, 2023 Assessment & Plan (1) Elevated troponin I level: (2) CAD (coronary artery disease): (3) Chronic systolic heart failure: (4) ICD (implantable cardioverter-defibrillator) in place: (5) Ischemic cardiomyopathy: (6) Wide-complex tachycardia: Plan 1. Elevated troponin: due to demand ischemia. I do not believe there is a acute coronary syndrome. 2. Congestive heart failure: He has some element of pulmonary vascular congestion. Oxygenation is generally been good. However will need to watch out for worsening oxygenation given his aggressive volume resuscitation. Treatment may be compromised by his declining renal function. 3. Coronary disease: Not complaining of chest pain. Again, I do not believe his biomarker elevation is indicative of acute coronary syndrome. 4. Ischemic cardiomyopathy: Well compensated at baseline, but in the setting of his acute metabolic derangements and sepsis he has had a decompensation. He appears to have developed cardiorenal syndrome. 5. Normally functioning single-chamber ICD 6. 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 A combination of his frequent atrial ectopy and pressor support increasing adrenergic tone resulted in frequent and prolonged episodes of SVT. When the pressor agent was changed to phenylephrine we seen less of this. 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 This may precipitate more episodes of AVNRT, but given his poor urine output and declining renal function I think it is necessary to try. Overall prognosis guarded given his declining renal function, progressive heart failure and need for continued pressor support. Admission and Anticipated Discharge Date Admission Date: January 17, 2023 Subjective the patient did not report any specific complaints this morning. He denied pain. He denies breathing difficulty. He was thirsty. Review of Systems Review of Systems: Per HPI Physical Exam Physical Exam: The patient Was easily arousable. Mood and affect appeared normal. He answered all questions appropriately. He did fall asleep easily HEENT: Pupils are equal and reactive to light and accommodation. Extraocular movements are intact. The sclerae are anicteric. Neuro: Cranial nerves intact Chest: Well-healed device implant site in the left upper pectoral area Lungs: Clear in the apices with some crackles in the bases bilaterally. Normal respiratory effort. No expiratory wheezing. some coarse upper airway sounds Cardiac: Heart demonstrates a regular rate and rhythm with occasional ectopy. Normal S1 and S2. No murmurs on examination. Results & Data Vital Signs (Past 12 Hours) Vital Signs Pulse Resp BP Pulse Ox 01/19/23 05:00 79 35 H 86 L 01/19/23 04:30 79 13 96 01/19/23 04:00 84 26 H 89 L 01/19/23 04:00 65/49 L 01/19/23 03:30 94 H 35 H 82 L 01/19/23 03:00 81 32 H 79 L 01/19/23 03:00 105/53 L 01/19/23 02:30 81 16 98 01/19/23 02:00 84 12 96 01/19/23 02:00 107/50 L 01/19/23 01:30 83 35 H 80 L 01/19/23 01:01 90/49 L 01/19/23 01:01 84 25 H 91 01/19/23 04:00 105/42 L 01/19/23 01:00 85 35 H 83 L 01/19/23 00:30 86 31 H 83 L 01/19/23 00:00 85 25 H 88 L 01/19/23 00:00 95/57 L 01/18/23 23:30 87 35 H 88 L 01/18/23 23:00 89 17 98 01/18/23 23:00 76/40 L 01/18/23 22:30 102 H 19 97 01/18/23 22:01 91/57 L 01/18/23 22:01 98 H 14 98 01/18/23 22:00 85 16 97 01/18/23 21:30 87 18 95 01/19/23 00:00 87/40 L 01/18/23 21:15 136 H 29 H 96 01/18/23 21:01 98 H 29 H 96 01/18/23 21:01 116/42 L 01/18/23 21:00 108 H 28 H 97 01/18/23 20:45 101 H 31 H 98 01/18/23 20:30 99 H 28 H 98 Laboratory Results Abnormal Lab Results 01/18/23 01/18/23 01/18/23 07:10 10:52 11:19 WBC RBC Hgb POC Hgb 8.2 L Hct POC Hct 24 L MCV MCH MCHC RDW Std Deviation RDW Coeff of Norbert Plt Count MPV Immature Gran % (Auto) Neut % (Auto) Lymph % (Auto) Richardson % (Auto) Eos % (Auto) Baso % (Auto) Neut # (Auto) Lymph # (Auto) Richardson # (Auto) Eos # (Auto) Baso # (Auto) Immature Gran # (Auto) Polychromasia Echinocytes Sample Site Art Line POC pH 7.32 L POC pCO2 29 L POC pO2 81 POC HCO3 15 L POC Total CO2 16 L POC Base Excess -11.0 L ABG pH (Temp Correct) 7.325 L ABG pCO2 (Temp Corrct 29 L POC ABG pO2 at Pt Temp 80 POC ABG O2 Sat 95.0 Ronaldo Test NA O2 Delivery Device Room Air POC Sodium 136 Sodium POC Potassium 3.6 Potassium Chloride Carbon Dioxide Anion Gap BUN Creatinine Est Cr Clr Drug Dosing Est GFR ( Amer) Est GFR (Non-Af Amer) BUN/Creatinine Ratio Glucose POC Glucose 117 H POC Glucose (other) Estimat Average Glucose 140 Hemoglobin A1c 6.5 H Lactate Calcium Phosphorus Magnesium Total Bilirubin Direct Bilirubin AST ALT Alkaline Phosphatase Total Protein Albumin Random Cortisol Nasal Screen MRSA (PCR) 01/18/23 01/18/23 01/18/23 11:48 12:15 15:45 WBC RBC Hgb POC Hgb Hct POC Hct MCV MCH MCHC RDW Std Deviation RDW Coeff of Norbert Plt Count MPV Immature Gran % (Auto) Neut % (Auto) Lymph % (Auto) Richardson % (Auto) Eos % (Auto) Baso % (Auto) Neut # (Auto) Lymph # (Auto) Richardson # (Auto) Eos # (Auto) Baso # (Auto) Immature Gran # (Auto) Polychromasia Echinocytes Sample Site POC pH POC pCO2 POC pO2 POC HCO3 POC Total CO2 POC Base Excess ABG pH (Temp Correct) ABG pCO2 (Temp Corrct POC ABG pO2 at Pt Temp POC ABG O2 Sat Ronaldo Test O2 Delivery Device POC Sodium Sodium 133 L POC Potassium Potassium 3.4 L Chloride 105 Carbon Dioxide 13 L Anion Gap 15 H BUN 88 H Creatinine 2.81 H Est Cr Clr Drug Dosing 25.6 Est GFR ( Amer) 25.2 Est GFR (Non-Af Amer) 21.8 BUN/Creatinine Ratio 31.3 H Glucose 157 H POC Glucose POC Glucose (other) Estimat Average Glucose Hemoglobin A1c Lactate Calcium 8.0 L Phosphorus Magnesium 1.9 Total Bilirubin Direct Bilirubin AST ALT Alkaline Phosphatase Total Protein Albumin Random Cortisol 24.07 Nasal Screen MRSA (PCR) Negative 01/18/23 01/18/23 01/18/23 15:46 15:48 15:54 WBC RBC Hgb POC Hgb 9.9 L Hct POC Hct 29 L MCV MCH MCHC RDW Std Deviation RDW Coeff of Norbert Plt Count MPV Immature Gran % (Auto) Neut % (Auto) Lymph % (Auto) Richardson % (Auto) Eos % (Auto) Baso % (Auto) Neut # (Auto) Lymph # (Auto) Richardson # (Auto) Eos # (Auto) Baso # (Auto) Immature Gran # (Auto) Polychromasia Echinocytes Sample Site R Brachial POC pH 7.36 POC pCO2 24 L POC pO2 89 POC HCO3 13 L POC Total CO2 14 L POC Base Excess -12.0 L ABG pH (Temp Correct) 7.356 ABG pCO2 (Temp Corrct 24 L POC ABG pO2 at Pt Temp 90 POC ABG O2 Sat 97.0 H Ronaldo Test Pass O2 Delivery Device Room Air POC Sodium 135 Sodium POC Potassium 3.4 Potassium Chloride Carbon Dioxide Anion Gap BUN Creatinine Est Cr Clr Drug Dosing Est GFR ( Amer) Est GFR (Non-Af Amer) BUN/Creatinine Ratio Glucose POC Glucose 171 H POC Glucose (other) 158 H Estimat Average Glucose Hemoglobin A1c Lactate Calcium Phosphorus Magnesium Total Bilirubin Direct Bilirubin AST ALT Alkaline Phosphatase Total Protein Albumin Random Cortisol Nasal Screen MRSA (PCR) 01/18/23 01/19/23 01/19/23 20:25 05:16 05:16 WBC 39.37 H* D RBC 3.26 L Hgb 9.8 L POC Hgb Hct 29.3 L POC Hct MCV 89.9 MCH 30.1 MCHC 33.4 RDW Std Deviation 50.5 H RDW Coeff of Norbert 15.1 H Plt Count 176 D MPV 9.7 Immature Gran % (Auto) 1.7 Neut % (Auto) 91.9 Lymph % (Auto) 2.4 Richardson % (Auto) 3.7 Eos % (Auto) 0.1 Baso % (Auto) 0.2 Neut # (Auto) 36.15 H Lymph # (Auto) 0.96 L Richardson # (Auto) 1.47 H Eos # (Auto) 0.03 Baso # (Auto) 0.09 Immature Gran # (Auto) 0.67 H Polychromasia 1+ Echinocytes 2+ Sample Site POC pH POC pCO2 POC pO2 POC HCO3 POC Total CO2 POC Base Excess ABG pH (Temp Correct) ABG pCO2 (Temp Corrct POC ABG pO2 at Pt Temp POC ABG O2 Sat Ronaldo Test O2 Delivery Device POC Sodium Sodium 133 L POC Potassium Potassium 3.9 Chloride 108 H Carbon Dioxide 13 L Anion Gap 12 H BUN 83 H Creatinine 3.07 H Est Cr Clr Drug Dosing 23.4 Est GFR ( Amer) 22.7 Est GFR (Non-Af Amer) 19.6 BUN/Creatinine Ratio 27.0 H Glucose 108 H POC Glucose POC Glucose (other) 134 H Estimat Average Glucose Hemoglobin A1c Lactate Calcium 7.8 L Phosphorus 3.5 Magnesium 2.0 Total Bilirubin 0.8 Direct Bilirubin 0.3 H AST 85 H ALT 67 H Alkaline Phosphatase 79 Total Protein 5.7 L Albumin 2.8 L Random Cortisol Nasal Screen MRSA (PCR) 01/19/23 01/19/23 01/19/23 05:34 06:43 07:38 WBC RBC Hgb POC Hgb 10.2 L Hct POC Hct 30 L MCV MCH MCHC RDW Std Deviation RDW Coeff of Norbert Plt Count MPV Immature Gran % (Auto) Neut % (Auto) Lymph % (Auto) Richardson % (Auto) Eos % (Auto) Baso % (Auto) Neut # (Auto) Lymph # (Auto) Richardson # (Auto) Eos # (Auto) Baso # (Auto) Immature Gran # (Auto) Polychromasia Echinocytes Sample Site Art Line POC pH 7.34 L POC pCO2 25 L POC pO2 77 L POC HCO3 13 L POC Total CO2 14 L POC Base Excess -12.0 L ABG pH (Temp Correct) 7.336 L ABG pCO2 (Temp Corrct 25 L POC ABG pO2 at Pt Temp 78 POC ABG O2 Sat 95.0 Ronaldo Test NA O2 Delivery Device Room Air POC Sodium 135 Sodium POC Potassium 3.8 Potassium Chloride Carbon Dioxide Anion Gap BUN Creatinine Est Cr Clr Drug Dosing Est GFR ( Amer) Est GFR (Non-Af Amer) BUN/Creatinine Ratio Glucose POC Glucose 101 H POC Glucose (other) Estimat Average Glucose Hemoglobin A1c Lactate 1.4 Calcium Phosphorus Magnesium Total Bilirubin Direct Bilirubin AST ALT Alkaline Phosphatase Total Protein Albumin Random Cortisol Nasal Screen MRSA (PCR) PG Care Time/CCT Total # of Minutes Spent Total Time Spent with Patient: Total time spent is greater than 50% in coordination of care (as documented) at patient's floor/unit and/or counseling patient: Coding Level of Care Code 17413 SUB INP/OBS CARE 2/35MIN Diagnoses Elevated troponin I level R77.8 CAD (coronary artery disease) I25.10 Coronary Disease-Associated Artery/Lesion type: [place] artery [place] vs. transplanted heart: [place] heart Associated angina: without angina Chronic systolic heart failure I50.22 ICD (implantable cardioverter-defibrillator) in place Z95.810 Ischemic cardiomyopathy I25.5 Wide-complex tachycardia R00.0 (2) CAD (coronary artery disease) Coronary Disease-Associated Artery/Lesion type: [place] artery [place] vs. transplanted heart: [place] heart Associated angina: without angina Qualified Code(s): I25.10 - Atherosclerotic heart disease of [place] coronary artery without angina pectoris
[2023-01-19] MEDS: ASPIRIN 81 MG ECTAB PO SCH (08:45)
[2023-01-19] MEDS: SERTRALINE HCL 50 MG TABLET PO SCH (08:45)
[2023-01-19] MEDS: PANTOprazole 40 MG TAB PO SCH ×2 (08:47→21:46)
[2023-01-19] MEDS: ATORVASTATIN 40 MG TAB PO SCH (08:47)
--- NOTE | 2023-01-19 08:47 | Critical Care Progress Note ---
Date of Service January 19, 2023 Assessment & Plan (1) Severe sepsis with septic shock: (2) PAULA (acute kidney injury): (3) Bacteremia due to Gram-positive bacteria: (4) Acidosis: (5) UTI (urinary tract infection), bacterial: (6) Stage III pressure ulcer of buttock: Plan Impression: 72-year-old male with multiple medical comorbidities admitted with failure group A strep bacteremia, urinary infection, severe sepsis with septic shock, acute kidney injury, and metabolic acidosis with altered mental status. 24-hour events: Patient was transferred to the ICU. He underwent axillary arterial line placement as well as central line placement. He was initiated on norepinephrine but developed wide-complex tachycardia. Was started on amiodarone and Levophed was discontinued and transition to Cesario-Synephrine. Urine output overnight has been very poor. We had escalated his blood pressures. Recommendations: 1. Neurologic: Mental status more clear today and the patient is able to follow commands discussion. Will continue his gabapentin Seroquel and Zoloft although these may need to be held if his mental status fails to clear. No indication for additional imaging at this point time. 2. Cardiovascular: Heart failure with probable cardiorenal syndrome. Discussed extensively with cardiology today. He did develop a wide-complex tachyarrhythmia yesterday with norepinephrine has been initiated on amiodarone and transition to Cesario-Synephrine. This is resulted in some improvement in his heart rates. Will pursue a trial of low-dose dobutamine to see if this improves forward flow. If he develops recurrent wide-complex tachyarrhythmias, this medication will need to be discontinued. Do not think he is a candidate for additional advanced cardiac therapies. 3. Pulmonary: No current issues. Continue to monitor closely. Incentive spirometry as tolerated 4. GI: Continue current diet. PPI in place. 5. ID: Strep pyogenes bacteremia with Proteus in the urine. Both are sensitive to Rocephin patient is currently day #3 cefepime. De-escalate to Rocephin. White blood cell count significantly increased today. Surveillance cultures obtained yesterday have shown no growth. He does not have a skin rash or other evidence of toxic shock so we will hold off on clindamycin or IVIG currently. Given his AICD, intravascular seeding is possible and if the patient remains persistently bacteremic, this will present a significant problem. ID consultation may be required at that point time as the patient may require chronic suppressive antimicrobial therapy as I do not think he is a candidate for device removal. 6. Endocrine: Continue Synthroid. Glycemic control per protocol.. Random cortisol was low in the setting of increased pressor requirements, will place him on replacement Florinef and hydrocortisone. 7. Heme-onc: Thrombocytopenia which is chronic. Continue to follow at this point in time. Mild chronic anemia. No evidence of acute blood loss. 8. Renal: Acute renal failure: Suspect cardiorenal. Urine output remains low, BUN and creatinine are increasing and the patient has persistent acidemia. Will place on bicarb infusion and obtain nephrology consultation although I believe the patient is a poor candidate for renal replacement therapy. Discussed with him. He states he is not really considered it. Advised him to talk to his family and consider what medical interventions would be appropriate. Palliative care consultation is pending. 9. DVT prophylaxis will be initiated with subcu heparin. The patient is critically ill at this point time with significant possibility of clinical deterioration. Total of 55 minutes critical care time was spent evaluation management stabilization of this patient exclusive of procedures. Patient has a very poor functional status at baseline being bedbound most of the time. He has decubitus ulcers. When queried about the quality of life he has currently, he states it is okay. He understands the severity of his current illness and that this may not be reversible. Recommended he discuss with family members and with his medical team regarding what medical interventions would be appropriate. Given his poor functional status at baseline, consideration for a palliative approach would not be unreasonable. Admission and Anticipated Discharge Date Admission Date: January 17, 2023 Subjective Patient seen and examined. Discussed on multidisciplinary rounds as well as both bedside critical care nurse. EMR extensively reviewed. Review of Systems Review of Systems: All systems reviewed & are unremarkable except as noted in Subjective Physical Exam Constitutional: WD/WN, vitals as above Neck: trachea midline, no thyromegaly Respiratory: normal respiratory effort, lungs clear to auscultation Cardiovascular: Rate/Rhythm: regular rate Heart Sounds: normal S1, normal S2 and + murmur Extremities: + edema Gastrointestinal (Abdomen): normal bowel sounds, soft, nontender, no hepatosplenomegaly Musculoskeletal: Extremities: extremities normal to inspection Lymphatic: no cervical lymphadenopathy Results & Data Results & Data Vital Signs (Past 12 Hours) Vital Signs Pulse Resp BP Pulse Ox 01/19/23 05:00 79 35 H 86 L 01/19/23 04:30 79 13 96 01/19/23 04:00 84 26 H 89 L 01/19/23 04:00 65/49 L 01/19/23 03:30 94 H 35 H 82 L 01/19/23 03:00 81 32 H 79 L 01/19/23 03:00 105/53 L 01/19/23 02:30 81 16 98 01/19/23 02:00 84 12 96 01/19/23 02:00 107/50 L 01/19/23 01:30 83 35 H 80 L 01/19/23 01:01 90/49 L 01/19/23 01:01 84 25 H 91 01/19/23 04:00 105/42 L 01/19/23 01:00 85 35 H 83 L 01/19/23 00:30 86 31 H 83 L 01/19/23 00:00 85 25 H 88 L 01/19/23 00:00 95/57 L 01/18/23 23:30 87 35 H 88 L 01/18/23 23:00 89 17 98 01/18/23 23:00 76/40 L 01/18/23 22:30 102 H 19 97 01/18/23 22:01 91/57 L 01/18/23 22:01 98 H 14 98 01/18/23 22:00 85 16 97 01/18/23 21:30 87 18 95 01/19/23 00:00 87/40 L 01/18/23 21:15 136 H 29 H 96 01/18/23 21:01 98 H 29 H 96 01/18/23 21:01 116/42 L 01/18/23 21:00 108 H 28 H 97 01/18/23 20:45 101 H 31 H 98 Critical Care Results & Data Vital Signs (Past 12 Hours) Vital Signs Pulse Resp BP Pulse Ox 01/19/23 05:00 79 35 H 86 L 01/19/23 04:30 79 13 96 01/19/23 04:00 84 26 H 89 L 01/19/23 04:00 65/49 L 01/19/23 03:30 94 H 35 H 82 L 01/19/23 03:00 81 32 H 79 L 01/19/23 03:00 105/53 L 01/19/23 02:30 81 16 98 01/19/23 02:00 84 12 96 01/19/23 02:00 107/50 L 01/19/23 01:30 83 35 H 80 L 01/19/23 01:01 90/49 L 01/19/23 01:01 84 25 H 91 01/19/23 04:00 105/42 L 01/19/23 01:00 85 35 H 83 L 01/19/23 00:30 86 31 H 83 L 01/19/23 00:00 85 25 H 88 L 01/19/23 00:00 95/57 L 01/18/23 23:30 87 35 H 88 L 01/18/23 23:00 89 17 98 01/18/23 23:00 76/40 L 01/18/23 22:30 102 H 19 97 01/18/23 22:01 91/57 L 01/18/23 22:01 98 H 14 98 01/18/23 22:00 85 16 97 01/18/23 21:30 87 18 95 01/19/23 00:00 87/40 L 01/18/23 21:15 136 H 29 H 96 01/18/23 21:01 98 H 29 H 96 01/18/23 21:01 116/42 L 01/18/23 21:00 108 H 28 H 97 01/18/23 20:45 101 H 31 H 98 Lab & Micro Results (Past 24 Hours) RBC 3.26 M/uL (4.70-6.10) L 01/19/23 WBC 39.37 K/ul (4.8-10.8) H* 01/19/23 Hgb 9.8 g/dl (14.0-18.0) L 01/19/23 Hct 29.3 % (42.0-52.0) L 01/19/23 MCV 89.9 fL (80.0-100.0) 01/19/23 MCH 30.1 pg (25.0-34.0) 01/19/23 MCHC 33.4 g/dL (32.0-36.0) 01/19/23 RDW Standard Deviation 50.5 fL (36.4-46.3) H 01/19/23 RDW Coefficient of Variation 15.1 % (11.5-14.5) H 01/19/23 Plt Count 176 K/uL (130-400) 01/19/23 MPV 9.7 fL (9.4-12.4) 01/19/23 Neutrophils (%) (Auto) 91.9 % 01/19/23 Lymphocytes (%) (Auto) 2.4 % 01/19/23 Monocytes # (Auto) 1.47 K/uL (0.11-0.59) H 01/19/23 Eosinophils # (Auto) 0.03 K/uL (0-0.50) 01/19/23 Immature Granulocyte % (Auto) 1.7 % 01/19/23 Neutrophils # (Auto) 36.15 K/uL (1.40-6.50) H 01/19/23 Lymphocytes # (Auto) 0.96 K/uL (1.2-3.4) L 01/19/23 Monocytes # (Auto) 1.47 K/uL (0.11-0.59) H 01/19/23 Eosinophils # (Auto) 0.03 K/uL (0-0.50) 01/19/23 Basophils # (Auto) 0.09 K/uL (0-0.2) 01/19/23 Immature Granulocyte # (Auto) 0.67 K/uL (0.01-0.20) H 01/19 Polychromasia 1+ 01/19/23 Echinocytes 2+ 01/19/23 Na 133 mmol/L (136-145) L 01/19/23 K 3.9 mmol/L (3.5-5.1) 01/19/23 Cl 108 mmol/L (98-107) H 01/19/23 CO2 13 mmol/L (21-32) L 01/19/23 Anion Gap 12 (3-11) H 01/19/23 BUN 83 mg/dl (6-23) H 01/19/23 Creatinine 3.07 mg/dl (0.6-1.4) H 01/19/23 Estimated GFR ( Amer) 22.7 ml/min 01/19/23 Estimated GFR (Non-Af Amer) 19.6 ml/min 01/19/23 BUN/Creatinine Ratio 27.0 (10-20) H 01/19/23 Glu 108 mg/dl (70-99(Fasting)) H 01/19/23 Ca 7.8 mg/dl (8.6-10.3) L 01/19/23 Phosphorus Level 3.5 mg/dl (2.5-4.9) 01/19/23 Total Bilirubin 0.8 mg/dl (0.2-1.0) 01/19/23 Direct Bilirubin 0.3 mg/dl (0-0.2) H 01/19/23 AST 85 U/L (13-39) H 01/19/23 ALT 67 U/L (7-52) H 01/19/23 Alkaline Phosphatase 79 U/L (34-104) 01/19/23 TP 5.7 gm/dl (6.0-8.3) L 01/19/23 Albumin 2.8 gm/dl (3.4-5.0) L 01/19/23 Mg 2.0 mg/dl (1.7-2.4) 01/19/23 05:16 Calcium Level 7.8 mg/dl (8.6-10.3) L 01/19/23 05:16 Ronaldo Test NA 01/19/23 05:34 Microbiology 01/17/23 12:00 Aerobic Blood Culture - Final Blood Group A Beta Strep Anaerobic Blood Culture - Final Group A Beta Strep 01/17/23 13:45 Urine Culture - Preliminary Urine,Clean Catch Proteus mirabilis 01/17/23 13:13 Aerobic Blood Culture - Preliminary Blood No growth in Aerobic bottle after 24 hours. Anaerobic Blood Culture - Final Diagnostic Findings (Past 24 Hours) Chest X-Ray 01/18/23 11:02 SINGLE VIEW CHEST CLINICAL HISTORY: Central venous catheter placement. FINDINGS: An AP, portable, upright chest radiograph is compared to study performed earlier the same day 01/18/2023. The examination is degraded by portable technique and apical lordotic positioning. A left internal jugular central venous catheter has been placed. The tip projects over the SVC. A single-lead cardiac AICD is unchanged in position and partially obscures the left upper chest. The heart is enlarged noting atherosclerotic calcification of the thoracic aorta. There is pulmonary vascular congestion. Small pleural effusions are suspected. Scarring/atelectasis is noted at the lung bases. No pneumothorax is seen. The bony thorax is grossly intact. Fusion hardware is seen in the cervicothoracic and lumbar spine. IMPRESSION: 1. A left internal jugular central venous catheter has been placed as above. No pneumothorax is identified postprocedure. 2. Cardiomegaly and AICD with evidence of congestive failure. This has modestly improved from today's earlier examination. 3. Small pleural effusions. ACT 112: Negative or not required by law.' Electronically signed by: Vinicius Almaraz M.D. 01/18/2023 11:32 AM I & O Totals 24 Hours 01/18/23 01/19/23 01/20/23 06:59 06:59 06:59 Intake Total 5653.333 / 5653.333 3174.314 / 3174.314 250 / 250 Output Total 112 / 112 155 / 155 Balance 5541.333 / 5541.333 3019.314 / 3019.314 250 / 250 Cumulative 01/17/23 11:04 thru 01/19/23 07:01 Intake Total 9077.647 Output Total 267 Balance 8810.647 RT Ventilator Mngmt (Last Documented) Ventilator Ordered Settings Respiratory Rate 35 01/19/23 05:00 Ventilator - PT Measurements Respiratory Rate 35 Coding Level of Care Code 49154 CRITICAL CARE 1ST 30-74M Diagnoses Severe sepsis with septic shock A41.9; R65.21 PAULA (acute kidney injury) N17.9 Bacteremia due to Gram-positive bacteria R78.81 Acidosis E87.20 UTI (urinary tract infection), bacterial N39.0; A49.9 Stage III pressure ulcer of buttock L89.303
[2023-01-19] MEDS ORDERED: STAT IV Infusion **Titration per Protocol STA (08:52)
[2023-01-19] MEDS ORDERED: STAT IV STA (08:53)
[2023-01-19] MEDS: DOBUTamine / D5W 500 MG/250 ML BAG IV SCH (09:09)
[2023-01-19] MEDS: FLUDROCORTISONE ACETATE 0.1 MG TAB PO SCH (09:20)
[2023-01-19] MEDS: GABAPENTIN 100 MG CAP PO SCH ×2 (09:20→21:45)
[2023-01-19] MEDS: SODIUM BICARBONATE 8.4% 150 MEQ in DEXTROSE 5% 1,000 ML IV SCH (09:21)
[2023-01-19] MEDS: cefTRIAXone SODIUM 2,000 MG in DEXTROSE 5% 50 ML IV SCH (09:27)
[2023-01-19] MEDS ORDERED: CALCIUM CHLORIDE 10% 1,000 MG in DEXTROSE 5% 50 ML IV ONE (09:30)
[2023-01-19] MEDS: HYDROCORTISONE SOD 50 MG in SYRINGE 0 ML IV SCH ×3 (10:01→21:45)
--- NOTE | 2023-01-19 10:47 | Nephrology Consultation ---
Date of Consultation January 19, 2023 Assessment & Plan (1) PAULA (acute kidney injury): * Oliguric PAULA/CKD - likely ATN related to severe sepsis with shock * Bumex, Entresto, Metformin and Tamsulosin have been stopped * On Phenylephrine, Dobutamine gtts to maintain MAP 65 or above * Electrolyte balance is acceptable * On IV NaHCO3 for correction of metabolic acidosis * No acute indication for HD at this time. Continue with supportive care * Agree that patient is poor press tender long goods dialysis candidate due to debilitated condition and ICM * Monitor PRP, UO (2) Chronic kidney disease, stage III (moderate): * CKD stage G3b/A3 (moderate impairment). Baseline Cr 1.5-2.0 w/ EGFR 34 cc/min. 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 Renal impairment has been attributed to DKD, hypertensive nephrosclerosis and chronic NAPIER (3) Severe sepsis with septic shock: * Group A strep bacteremia, Proteus UTI. Currently on IV Ceftriaxone (4) UTI (urinary tract infection), bacterial: (5) Bacteremia due to Gram-positive bacteria: (6) Ischemic cardiomyopathy: * 01/30 echocardiogram - LVEF 30-35% * AICD in place * On Dobutamine gtt (7) ICD (implantable cardioverter-defibrillator) in place: History of Present Illness Reason for Consultation: PAULA/CKD Attending Physician: Juan Manning History of Present Illness Mr. Cooper is a 72 year old white male who is seen at the request of Dr. Aguilar for evaluation of oliguric PAULA/CKD. Information for the HPI is obtained from patient interview and review of the EMR. HPI is summarized as follows: Mr. Cooper has CKD stage G3b/A3 (moderate impairment). Baseline Cr has been 1.5-2.0 w/ EGFR 34 cc/min. His primary [facility] [employer] is Dr. Ralph. 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 Urine sediment has been + for blood and UACR > 0.3. Renal impairment has been attributed to DKD, hypertensive nephrosclerosis and chronic NAPIER. Mr. Cooper's medical history is also significant for AODM complicated by retinopathy, PVD s/p L BKA, ASCVD s/p CABG, ICM w/ LVEF 30-35% s/p AICD, NAPIER with suprapubic catheter. Mr. Cooper was admitted to [facility] 01/17/23 for evaluation of weakness and MS changes. He was found to have septic shock (SBP 60's) requiring transfer to the ICU. He is currently on Phenylephrine, Dobutamine, Hydrocortisone and Florinef to maintain MAP 65. Blood culture has grown out Group A strep, urine culture has grown out Proteus. Patient is receiving IV Ceftriaxone. Creatinine has risen to 3.07 and patient has become oliguric. Allergies Allergy/AdvReac Type Severity Reaction Status Date / Time sacubitril [From Entresto] AdvReac Intermediate problems Verified 01/08/23 10:32 with bp valsartan [From Entresto] AdvReac Intermediate problems Verified 01/08/23 10:32 with bp lorazepam AdvReac Mild Confusion Verified 01/08/23 10:32 Home Medications Medication Instructions Recorded Confirmed Type ascorbic acid (vitamin C) 500 mg 500 mg PO QAM 03/23/19 01/17/23 History tablet (Vitamin C) melatonin 5 mg tablet 5 mg PO HS 03/23/19 01/17/23 History ferrous sulfate 325 mg (65 mg 325 mg PO QAM 04/27/19 01/17/23 History iron) tablet,delayed release acetaminophen 500 mg tablet 1,000 mg PO TID PRN Pain 10/07/19 01/17/23 History (Tylenol Extra Strength) aspirin 81 mg tablet,delayed 81 mg PO QAM 04/12/20 01/17/23 History release (Aspir-) cholecalciferol (vitamin D3) 25 25 mcg PO QAM 07/18/21 01/17/23 History mcg (1,000 unit) tablet (Vitamin D3) gabapentin 100 mg capsule 200 mg PO BID #120 caps 01/17/22 01/17/23 Rx quetiapine 25 mg tablet (Seroquel) 25 mg PO HS #90 tabs 01/17/22 01/17/23 Rx metoprolol succinate 25 mg 25 mg PO QAM #90 tabs 01/23/22 01/17/23 Rx tablet,extended release 24 hr tamsulosin 0.4 mg capsule (Flomax) 0.4 mg PO HS #90 caps 02/27/22 01/17/23 Rx Mattress (Air or other) #1 ea 04/27/22 01/17/23 Rx atorvastatin 40 mg tablet 40 mg PO QAM #90 tabs 05/18/22 01/17/23 Rx Mattress (Air or other) #1 ea 07/04/22 01/17/23 Rx pantoprazole 40 mg tablet,delayed 40 mg PO BID #180 tabs 07/10/22 01/17/23 Rx release (Protonix) sacubitril 24 mg-valsartan 26 mg 1 tab PO BID #180 tabs 08/18/22 01/17/23 Rx tablet (Entresto) glipizide 5 mg tablet, extended 5 mg PO DAILY #30 tabs 09/13/22 01/17/23 Rx release 24 hr levothyroxine 75 mcg tablet 75 mcg PO DAILY #30 tabs 09/13/22 01/17/23 Rx pen needle, diabetic 31 gauge x #50 ea 10/22/22 01/17/23 Rx 5/16" (BD Ultra-Fine Short Pen Needle) insulin glargine 100 unit/mL (3 18 unit (0.18 mL) subcut QPM #15 mL 12/28/22 01/17/23 Rx mL) subcutaneous pen (Lantus Solostar U-100 Insulin) bumetanide 1 mg tablet 1 mg PO QAM #90 tabs 12/31/22 01/17/23 Rx finasteride 5 mg tablet (Proscar) 5 mg PO QAM #90 tabs 12/31/22 01/17/23 Rx metformin 500 mg tablet,extended 500 mg PO BID #180 tabs 12/31/22 01/17/23 Rx release 24hr nystatin 100,000 unit/gram topical 1 applic topical BID PRN .flare ups 01/17/23 01/17/23 History powder sertraline 50 mg tablet 75 mg PO DAILY 01/17/23 01/17/23 History Patient History Medical History Abscess in epidural space of lumbar spine RESOLVED PER PATIENT WITH SURGERIES BUT RESULTED IN NEUROGENIC BLADDER. 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 Admitted [facility] 10/18/11 for onset of incapacitating cervical myelopathy. Spinal tap showed [employer] SUPERVISOR Lyme disease, MRI showed severe spinal cord compression at C3-4 with myelomalacia and intramedullary mass. Pt had c-spine surgery, subsequent prolonged hospital admission, complicated post-op course- including cardiac arrest Depression Diabetic peripheral neuropathy Disc degeneration, lumbar Diverticulosis Dyslipidemia Dysphagia resolved per pt History of COVID-19 diagnosed 05/28/20 via HOME TEST ONLY--severe diarrhea/cough/fever/loss of smell--no issues now History of non-ST elevation myocardial infarction (NSTEMI) 2000; 2018 HTN (hypertension) Hypothyroidism ICD (implantable cardioverter-defibrillator) in place [employer]--ICD replacement done 09/01/20 @ [facility] by Dr. 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 Hollins- had post op respiratory failure requiring trach and subsequent cardiac arres requiring one shock V fib- AICD implanted Type 2 diabetes mellitus per noncompliant with insulin UTI (urinary tract infection), bacterial Wheelchair confinement per does not get out of bed without tien lift--needs wheelchair Surgical History H/O cervical spine surgery ACDI C3-4, C7 corpectomy, removal of C7 intramedullary mass.> ROM IS OK PER PATIENT H/O sinus surgery History of cardiac cath 07/2018 [facility]. Severe multivessel [place] coronary artery disease 99% subtotal occlusion in proximal ramus with distal NEMESIO I flow (thought to be acute culprit vessel) -100% chronic mid LAD occlusion Diffuse mid circumflex, 80% proximal OM 2 Sequential mid RCA 95, 90% stenosis 2. Widely patent DELATORRE to LAD. Patent FERNANDO to very small diffusely diseased acute marginal. Occluded radial graft to OM. Medical MGMT recommended. History of cataract extraction with lens replacement History of colonoscopy History of esophagogastroduodenoscopy (EGD) History of incision and drainage Lumbar spine on 08/11/18; complicated by difficult intubation with only #6.5 ETT able to be placed and patient kept intubated post op Lumbar spine again 09/10/2018, ETT#7.0 with difficulty. Lumbar spine 10/09/2018, ETT#7.0, poor view bougie used. Anesthesia postop note: "still requiring phenyelphrine drip to maintain BP. Maintaining O2 sats with oxymask. Case discussed with ICU laborer driver, Dr. Mazariegos. Dr. Mazariegos updated with patients PMH including his cardiac comorbidities and his intraop course, including the blood transfusion. Dr. Mazariegos accepting patient for ICU management post op." Left heel 02/06/2019: LMA#5. History of lumbar spinal fusion 07/25/2018: glidescope #3, ETT#8.0. CHF and TN post-op. History of lumbar surgery 09/10/18 Glidescope 3 okay visualization but difficulty passing ETT, unable to pass 8.0, able to pass 7.0 with some difficulty History of tracheostomy CLOSED 8 YRS AGO Hx of CABG 06/2001 [facility] delatorre to lad, fernando to rca marginals and left radical artery to left circ Hx of foot surgery [facility] MAY 2019 Hx of tonsillectomy Hx of transurethral resection of prostate S/P PICC central line placement hx of S/P triple vessel bypass [facility], 2002- (DELATORRE to LAD, FERNANDO to Acute Marginal, Radial Graft to OM) Status post below-knee amputation of left lower extremity in setting of osteomyelitis and sepsis 08/14/19: LMA#4 + PNB. I&D 10/09/2019: LMA#4. No issues per anesthesia postop progress note. Family History Mother , age 68 of COPD and respiratory issues COPD (chronic obstructive pulmonary disease) Father , in his 40s of an [place] Myocardial infarction Family/Other Coronary heart disease Sister Other specified health status Other Diabetes Hypertension No pertinent family history Denies family history of Prostate cancer Breast cancer Colorectal cancer Social History Smoking Status: Never smoker Second Hand Exposure: No; Do You Dip or Chew Tobacco: No; Hx Alcohol Use: No Hx Substance Use: No Preferred Language: Pashto Communication Ability: Impaired Communication Ability Comment: confusion Visual Impairment: No Limitations Hearing Ability: Normal Breast Trimmer Required: No Beliefs That Will Affect Care: None marital status: Current Living Situation: Spouse Current Living Situation Comment: home with spouse 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al status: retired and disabled 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: 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 [employer] Other Information That Helps Us Care for You: No Feels Safe at Home: Yes Safety Concerns: Feels Safe At This Time Diet: regular caffeine: Yes Seatbelt Use: always Sunscreen Use: No Assistive Devices: Denture - Upper, Denture - Lower, Hospital Bed, Mechanical Lift and Wheelchair Review of Systems Constitutional: no fever Eyes: no worsening vision Ear, Nose, Mouth, Throat: no problem reported Respiratory: no cough and no dyspnea Cardiovascular: no chest pain Gastrointestinal: no abdominal pain, no nausea, no vomiting and no diarrhea/loose stools Physical Exam Constitutional: + ill appearing; not in distress Eyes: PERRL, conjunctivae normal, anicteric sclerae ENMT: external ear and nose normal, oropharynx normal Neck: trachea midline, no thyromegaly Respiratory: normal respiratory effort, lungs clear to auscultation Cardiovascular: Rate/Rhythm: regular rate and regular rhythm Extremities: + edema (anasarca) Gastrointestinal (Abdomen): normal bowel sounds, soft, nontender, no hepatosplenomegaly Musculoskeletal: L BKA Neurologic: Speech / Cognition: normal speech and normal cognition Results & Data Vital Signs (Past 12 Hours) Vital Signs Pulse Resp BP BP Pulse Ox 01/19/23 10:00 83 32 H 96 01/19/23 10:00 120/54 L 01/19/23 09:01 83 18 89 L 01/19/23 09:00 84 33 H 95 01/19/23 08:00 82 29 H 95 01/19/23 07:00 87 17 97 01/19/23 07:00 121/60 01/19/23 09:54 107/44 L 01/19/23 08:00 79 107/44 L 01/19/23 08:00 79 01/19/23 05:00 79 35 H 86 L 01/19/23 04:30 79 13 96 01/19/23 04:00 84 26 H 89 L 01/19/23 04:00 65/49 L 01/19/23 03:30 94 H 35 H 82 L 01/19/23 03:00 81 32 H 79 L 01/19/23 03:00 105/53 L 01/19/23 02:30 81 16 98 01/19/23 02:00 84 12 96 01/19/23 02:00 107/50 L 01/19/23 01:30 83 35 H 80 L 01/19/23 01:01 90/49 L 01/19/23 01:01 84 25 H 91 01/19/23 04:00 105/42 L 01/19/23 01:00 85 35 H 83 L 01/19/23 00:30 86 31 H 83 L 01/19/23 00:00 85 25 H 88 L 01/19/23 00:00 95/57 L 01/18/23 23:30 87 35 H 88 L 01/18/23 23:00 89 17 98 01/18/23 23:00 76/40 L 01/18/23 22:30 102 H 19 97 01/19/23 00:00 87/40 L Laboratory Results Laboratory Tests 03/01/22 08/16/22 10/08/22 10:30 11:15 14:14 WBC Hgb POC Hgb Plt Count POC Sodium POC Potassium Chloride Carbon Dioxide Anion Gap BUN Creatinine 1.52 H 1.95 H 1.87 H Lactate Calcium Direct Bilirubin AST ALT Alkaline Phosphatase Albumin Urine Color Ur Specific [place] Urine Protein Urine Blood Urine Bilirubin Ur Leukocyte Esterase Urine RBC Urine WBC Ur Epithelial Cells Urine Bacteria 01/17/23 01/17/23 01/19/23 12:00 13:45 05:16 WBC 22.48 H Hgb POC Hgb Plt Count POC Sodium POC Potassium Chloride 108 H Carbon Dioxide 13 L Anion Gap 12 H BUN 83 H Creatinine 3.07 H Lactate Calcium 7.8 L Direct Bilirubin 0.3 H AST 85 H ALT 67 H Alkaline Phosphatase 79 Albumin 2.8 L Urine Color Yellow Ur Specific [place] 1.020 Urine Protein 3+ H Urine Blood 2+ H Urine Bilirubin 2+ H Ur Leukocyte Esterase 3+ H Urine RBC >30 H Urine WBC >30 H Ur Epithelial Cells 10-20 H Urine Bacteria 3+ H 0801/19/23 01/19/23 05:16 05:34 06:43 WBC 39.37 H* D Hgb 9.8 L POC Hgb 10.2 L Plt Count 176 D POC Sodium 135 POC Potassium 3.8 Chloride Carbon Dioxide Anion Gap BUN Creatinine Lactate 1.4 Calcium Direct Bilirubin AST ALT Alkaline Phosphatase Albumin Urine Color Ur Specific [place] Urine Protein Urine Blood Urine Bilirubin Ur Leukocyte Esterase Urine RBC Urine WBC Ur Epithelial Cells Urine Bacteria PG Care Time/CCT Total # of Minutes Spent Total Time Spent with Patient: Total time spent is greater than 50% in coordination of care (as documented) at patient's floor/unit and/or counseling patient: Coding Level of Care Code 97055 IN/OBS CONSULT LVL 5,80M Diagnoses PAULA (acute kidney injury) N17.9 Chronic kidney disease, stage III (moderate) N18.3 Severe sepsis with septic shock A41.9; R65.21 UTI (urinary tract infection), bacterial N39.0; A49.9 Bacteremia due to Gram-positive bacteria R78.81 Ischemic cardiomyopathy I25.5 ICD (implantable cardioverter-defibrillator) in place Z95.810
[2023-01-19 12:46] LABS: BUN Creatinine Ratio 27.2 (10-20); Calcium 8.2 mg/dl (8.6-10.3); Creatinine Clr Calc Pharmacy 25.1 ml/min; Est GFR (African American) 22.2 ml/min; Est GFR (Non-African American) 19.2 ml/min; Potassium 3.9 mmol/L (3.5-5.1)
[2023-01-19] MEDS: LANTUS PER UNIT CHARGE SQ SCH (21:42)
[2023-01-19] MEDS: QUEtiapine FUMARATE 25 MG TABLET PO SCH (21:46)
--- NOTE | 2023-01-19 22:55 | Hospitalist Progress Note ---
Date of Service January 19, 2023 Assessment & Plan (1) Sepsis: Plan: Sepsis with altered mental status, suspect due to UTI Metabolic encephalopathy Presents with leukocytosis of 22, ESR 77, lactate 2.2, PAULA Lactate on admit 2.2 Patient has multiple potential sources of infection. He has a suprapubic catheter due to chronic outlet obstruction. Generally has difficulty with sanitization and care of this at home. Has had some erythema/discharge from this recently, UA is always infected appearing due to indwelling catheter. Patient has upper chest erythema, this is in a contact distribution which appears in the exposed area of the chest but spares the lower abdomen. There is no tenderness or warmth to this. He has left upper anterior chest does have yellow-colored crust/scale surrounding an annular area of erythema, notes that this has been worse in the last few days. He has multiple right lower extremity wounds. Has a posterior calf wound, distal lateral right lower leg wound, right lateral malleoli are wound, and heel superficial wound. Of these the proximal calf ulceration does have some purulent material and some surrounding scant erythema, other wounds are without erythema/discharge. CTlower extremity ordered for evaluation of osteo and deep infection given multiple wounds and septic appearance. w/ sepsis, chronic poor healing wounds, and difficulty with hygiene/concern for chronic wound contamination and above will cover broadly with cefepime, vancomycin, and Flagyl. History is limited, patient poorly oriented. Denies any infectious symptoms but has poor recall hs-troponin 2556 Procalcitonin 3.95 consistent with sepsis CRP 29 UA is infected appearing CThead: No acute findings CTA/P: Small bilateral pleural effusions, horseshoe kidney, no acute abnormalities or bowel obstruction CXR: Cardiomegaly and mild pulmonary edema On arrival was hypotensive to 94/59, normotensive following 2 L normal saline Empirically treated with Zosyn in ER Patient is with heart failure reduced ejection fraction, clinically with PAULA, minimal lower extremity edema, and hypotension appears intravascularly depleted. CXR is with pulmonary edema? Overload versus systolic failure. High- sensitivity troponin is elevated, attempting to obtain last echo for comparison. Last echo available was prebypass and 30-35% in 2019. Lactate has improved slightly with fluids, will continue antibiotics and fluid boluses as clinically indicated for hypotension. If rising lactate/persistent hypotension with evidence of fluid overload due to his concurrent heart failure may need pressor augmentation. At time of hospitalist consultation as lactate is improving he is normotensive can defer this. Stat echo is pending for interval EF change VBG 7.30/38/42/19, partially compensated respiratory acidosis On 01/18 Patient was hypotensive with SBP in the 70s despite receiving close to 5 liters of IVF and IV albumin. Discussed with regulatory compliance specialist, patient will be transferred to the ICU. Patient will require a central line and will need to be on pressors. will also consult cardiology On 01/19 Blood pressure is improved on pressors will continue to remain in ICU Heart failure with reduced ejection Last echo 2018, this was pre-bypass. EF 30-35% at that time EKG: Sinus with first-degree AV block, PVCs. Right bundle branch block. QTc 531. Compared to 07/2021 diffuse QRS morphology change Follows with cardiology for CHF. 09/2022 sedentary, but without symptoms of decompensated failure. Borderline low pressures at baseline and did not tolerate spironolactone. On DAPT plus Plavix post bypass, no history of stents. DELATORRE to LAD, FERNANDO to acute marginal, radial graft to OM was performed by [facility] in 2002 has a single-chamber ICD. Magnesium 1.1, IV and p.o. repletion ordered. Optimize potassium 4.0, magnesium 2.0 Patient with elevated troponin although no chest pain or preceding anginal symptoms to this admission. Suspect this is demand in the setting of sepsis. Given that patient is both hypotensive with elevated lactate but evidence of pulmonary edema with sepsis, updated echo was obtained. Patient did respond well to 2 L of fluids with improvement lactate and blood pressure, however is at risk for volume overload due to reduced EF. If patient were to show signs of progressive fluid overload and still have hypotension/uptrending perfusion lyndsey ers would require ICU level of care and pressors at that time. This is not required at time of hospitalist reassessment, will admit to PCU Chronic bladder outlet obstruction Suprapubic catheter appears to be functioning normally. Patient has had issues with hygiene of this in the past UA is chronically infected appearing due to catheter Follow for culture Antibiotics as above No signs of obstructed catheter at time of assessment PAULA Baseline creatinine around 1.92.2, admitting creatinine 2.75 -With sepsis S/p 2 L saline in ER. Defer additional aggressive boluses due to pulmonary edema and history of heart failure BMP daily Degenerative disc disease, lumbar disc disease A CDI C3-4, C7 corpectomy, removal of C7 mass Past history of lumbar decompression and fusion complicated by subsequent abscesses and infection, stable following recurrent incision and drainage several years ago. - No back pain on admit Uncontrolled type II DM On outpatient glargine 18 units, With chronic right heel wounds and nephropathy, retinopathy Basal bolus based on home glargine entered Goal BSG [id number] Glucose AC/at bedtime or every 6 hours while NPO Pharmacy consulted for assistance in management while patient is septic With history of left BKA. Stump is with a 1 cm area of erythema and ulceration, no tenderness/warmth Hyperlipidemia: Continue statin, hold if daptomycin is started DVT prophylaxis: Heparin Diet: N.p.o. pending improvement in mentation, then DM2/heart healthy/low-sodium Disposition: PCU CODE STATUS: Full code, discussed and confirmed with patient and his (2) PAULA (acute kidney injury): (3) Elevated troponin I level: (4) Thrombocytopenia: (5) Stage II pressure ulcer of right hip: (6) Type 2 diabetes mellitus: (7) ICD (implantable cardioverter-defibrillator) in place: (8) CAD (coronary artery disease): (9) Chronic systolic heart failure: (10) PAD (peripheral artery disease): (11) Hypothyroidism: (12) Carotid artery stenosis: (13) History of cardiac cath: (14) HTN (hypertension): Admission and Anticipated Discharge Date Admission Date: January 17, 2023 Subjective Patient is lethargic. Physical Exam Physical Exam: General: Patient is lethargic. HEENT: Atraumatic, normocephalic. PERLAA. [place] with yellow crust bilaterally. No injection/erythema. Pulm: Diminished, grossly clear. Reduced air movement in bases Symmetrical chest rise. No increased work of breathing. No respiratory distress. Cardiac: regular Abdominal: Softly distended. No guarding/rebound. BS present. : Suprapubic catheter present. Trace erythema at site. Urine clouded, dark yellow Ext: Left BKA with 1 cm superficial ulcerated lesion, small surrounding amount of eschar. Right calf with 3 cm purulent annular lesion. Right lower extremity distal to calf with small 1 cm ulcer without erythema/discharge/purulence, right lateral malleoli are ulcer without purulence/discharge. Right heel with superficial ulcer no erythema/purulence Results & Data Results & Data Vital Signs (Past 12 Hours) Vital Signs Temp Pulse Resp BP Pulse Ox O2 Del Method 01/19/23 21:00 94 H 42 H 93 01/19/23 20:45 87 41 H 91 01/19/23 20:30 94 H 41 H 93 01/19/23 20:15 87 39 H 98 01/19/23 20:00 98 H 41 H 97 01/19/23 19:45 90 33 H 91 01/19/23 19:30 89 35 H 90 01/19/23 19:15 89 33 H 91 01/19/23 19:00 90 35 H 95 01/19/23 20:00 Room Air 01/19/23 20:00 125/66 01/19/23 18:00 86 29 H 94 01/19/23 17:00 83 27 H 96 01/19/23 16:00 80 30 H 98 01/19/23 16:00 99 H 01/19/23 16:00 79 01/19/23 15:00 99 H 32 H 95 01/19/23 14:01 99/56 L 01/19/23 14:01 87 30 H 95 01/19/23 13:00 80 32 H 95 01/19/23 13:00 133/54 L 01/19/23 12:00 81 24 95 01/19/23 12:00 135/79 01/19/23 11:00 90 37 H 92 01/19/23 11:00 123/58 L 01/19/23 12:00 37.1 C 01/19/23 12:00 83 120/54 L PG Care Time/CCT Total # of Minutes Spent Total Time Spent with Patient: Total time spent is greater than 50% in coordination of care (as documented) at patient's floor/unit and/or counseling patient: Coding Level of Care Code 91495 SUB INP/OBS CARE 2/35MIN Diagnoses Sepsis A41.9 PAULA (acute kidney injury) N17.9 Elevated troponin I level R77.8 Thrombocytopenia D69.6 Stage II pressure ulcer of right hip L89.212 Type 2 diabetes mellitus E11.52; Z79.4 Diabetes mellitus complication detail: with peripheral angiopathy with gangrene Diabetes mellitus complication status: with circulatory complication Diabetes mellitus watermelon inspector insulin use: with longterm use ICD (implantable cardioverter-defibrillator) in place Z95.810 CAD (coronary artery disease) I25.10 Associated angina: without angina Coronary Disease-Associated Artery/Lesion type: [place] artery [place] vs. transplanted heart: [place] heart Chronic systolic heart failure I50.22 PAD (peripheral artery disease) I73.9 Hypothyroidism E03.9 Hypothyroidism type: acquired Carotid artery stenosis I65.29 History of cardiac cath Z98.890 HTN (hypertension) I10 Hypertension type: essential hypertension (6) Type 2 diabetes mellitus Diabetes mellitus complication detail: with peripheral angiopathy with gangrene Diabetes mellitus complication status: with circulatory complication Diabetes mellitus watermelon inspector insulin use: with longterm use Qualified Code(s): E11.52 - Type 2 diabetes mellitus with diabetic peripheral angiopathy with gangrene; Z79.4 - terminal operator (current) use of insulin (8) CAD (coronary artery disease) Associated angina: without angina Coronary Disease-Associated Artery/Lesion type: [place] artery [place] vs. transplanted heart: [place] heart Qualified Code(s): I25.10 - Atherosclerotic heart disease of [place] coronary artery without angina pectoris (11) Hypothyroidism Hypothyroidism type: acquired Qualified Code(s): E03.9 - Hypothyroidism, unspecified (14) HTN (hypertension) Hypertension type: essential hypertension Qualified Code(s): I10 - Essential (primary) hypertension
[2023-01-20] MEDS: INSULIN ASPART PER UNIT CHARGE SC SCH ×7 (00:05→21:15)
[2023-01-20] MEDS: SODIUM BICARBONATE 8.4% 150 MEQ in DEXTROSE 5% 1,000 ML IV SCH ×2 (00:32→15:14)
[2023-01-20] MEDS: ERYTHROMYCIN OP OINT 5 MG/GM 3.5 GM TUBE OP SCH ×4 (00:33→21:08)
[2023-01-20] MEDS: PHENYLEPHRINE HCL 100 MG in SODIUM CHLORIDE 0.9% 240 ML IV SCH ×6 (02:55→19:47)
[2023-01-20] MEDS: AMIODARONE / D5W 360 MG/200 ML BAG IV SCH ×4 (02:56→21:17)
[2023-01-20] MEDS: HYDROCORTISONE SOD 50 MG in SYRINGE 0 ML IV SCH ×4 (02:58→21:15)
[2023-01-20 05:49] LABS: Base Excess ABG -10.5 mEq/L (-9-1.8); HCO3 ABG 14 mmol/L (19-24); Oxygen Saturation ABG 92.7 % (90-95); PCO2 ABG 25 mmHg (35-46); PO2 ABG 65 mmHg (80-95); pH ABG 7.34 (7.35-7.45)
[2023-01-20 05:51] LABS: Allen Test Pos (Pos)
[2023-01-20 05:58] LABS: Hematocrit (blood only) 29.6 % (42.0-52.0); Hemoglobin 10.2 g/dl (14.0-18.0); Mean Corpuscular Hemoglobin 30.3 pg (25.0-34.0); Mean Corpuscular Hgb Conc 34.5 g/dL (32.0-36.0); Mean Corpuscular Volume 87.8 fL (80.0-100.0); Mean Platelet Volume 9.7 fL (9.4-12.4); Nucleated RBC # (auto) 0.02 K/uL (0-0.12); Nucleated RBC % (auto) 0.1 %; Platelet Count 190 K/uL (130-400); RDW Coefficient of Variation 15.3 % (11.5-14.5); Red Blood Count 3.37 M/uL (4.70-6.10); White Blood Count 29.27 K/ul (4.8-10.8)
[2023-01-20] MEDS: LEVOTHYROXINE SODIUM 75 MCG TABLET PO SCH (05:58)
[2023-01-20 06:13] LABS: Albumin Level 2.8 gm/dl (3.4-5.0); BUN Creatinine Ratio 24.3 (10-20); Bilirubin Direct 0.3 mg/dl (0-0.2); Bilirubin,Total 0.7 mg/dl (0.2-1.0); Calcium 7.8 mg/dl (8.6-10.3); Creatinine Clr Calc Pharmacy 22.1 ml/min; Est GFR (African American) 18.6 ml/min; Phosphorus 4.3 mg/dl (2.5-4.9); Potassium 3.9 mmol/L (3.5-5.1); Total Protein 5.8 gm/dl (6.0-8.3)
[2023-01-20 06:19] LABS: Acanthocytes 1+; Basophils # (auto) 0.04 K/uL (0-0.2); Basophils % (auto) 0.1 %; Echinocytes 3+; Immature Granulocytes # (auto) 1.15 K/uL (0.01-0.20); Immature Granulocytes % (auto) 3.9 %; Lymphocytes # (auto) 0.61 K/uL (1.2-3.4); Lymphocytes % (auto) 2.1 %; Monocytes % (auto) 3.4 %; Neutrophils # (auto) 26.47 K/uL (1.40-6.50); Neutrophils % (auto) 90.5 %; Polychromasia 1+
[2023-01-20] MEDS: ICU Protocol for HYPERglycemia SCH ×2 (08:00→11:45)
--- NOTE | 2023-01-20 08:42 | Nephrology Progress Note ---
Date of Service January 20, 2023 Assessment & Plan (1) PAULA (acute kidney injury): Plan: * Oliguric PAULA/CKD - likely ATN related to severe sepsis with shock * Bumex, Entresto, Metformin and Tamsulosin have been stopped * On Phenylephrine to maintain MAP 65 or above * Did not tolerate Dobutamine due to tachyarrhythmia * Clinical course and plan of care discussed w/ Mr. Cooper's , son and ICU team this morning. Explained that kidney function has worsened. Unfortun ately due to hemodynamic instability, Mr. Cooper likely would not tolerate acute HD. If he were to survive, then he would likely remain dialysis dependent. He is a poor dialysis candidate due to his bedridden condition, PVD and CMP. Mr. 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 They has chosen to transition his care to comfort measures. I agree w/ their decision. No further Nephrology intervention at this time. Will sign off. Please call if further assistance is needed. (2) Chronic kidney disease, stage III (moderate): Plan: * CKD stage G3b/A3 (moderate impairment). Baseline Cr 1.5-2.0 w/ EGFR 34 cc/min. 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 Renal impairment has been attributed to DKD, hypertensive nephrosclerosis and chronic NAPIER (3) Severe sepsis with septic shock: Plan: * Group A strep bacteremia, Proteus UTI. Currently on IV Ceftriaxone (4) UTI (urinary tract infection), bacterial: (5) Bacteremia due to Gram-positive bacteria: (6) Ischemic cardiomyopathy: Plan: * 01/30 echocardiogram - LVEF 30-35% * AICD in place * Did not tolerate Dobutamine infusion due to tachyarrhythmia (7) ICD (implantable cardioverter-defibrillator) in place: Admission and Anticipated Discharge Date Admission Date: January 17, 2023 Subjective Mr. Cooper was evaluated in the ICU this morning. He was poorly responsive with labored breathing. He continues to require Phenylephrine for BP support. Mr. Cooper remains oligo/anuric Review of Systems Review of Systems: Unobtainable due to cognitive status Physical Exam Constitutional: + ill appearing and + in distress (mild respiratory distress) Eyes: PERRL, conjunctivae normal, anicteric sclerae ENMT: external ear and nose normal, oropharynx normal Neck: trachea midline, no thyromegaly Respiratory: + labored breathing and + uses accessory muscles Cardiovascular: Rate/Rhythm: regular rate and regular rhythm Extremities: + edema (anasarca) Gastrointestinal (Abdomen): normal bowel sounds, soft, nontender, no hepat osplenomegaly Neurologic: Speech / Cognition: + abnormal cognition Results & Data Vital Signs (Past 12 Hours) Vital Signs Pulse Resp BP Pulse Ox 01/20/23 05:00 85 19 85 L 01/20/23 04:30 97 H 25 H 90 01/20/23 04:00 83 38 H 95 01/20/23 04:00 124/64 01/20/23 03:30 96 H 40 H 95 01/20/23 03:01 80 39 H 96 01/20/23 03:01 120/68 01/20/23 03:00 83 37 H 94 01/20/23 02:30 78 36 H 96 01/20/23 02:01 106/63 01/20/23 02:01 90 38 H 88 L 01/20/23 02:00 92 H 39 H 88 L 01/20/23 01:30 85 35 H 94 01/20/23 01:00 85 38 H 90 01/20/23 01:00 123/69 01/20/23 00:30 88 41 H 91 01/20/23 00:01 117/61 01/20/23 00:01 91 H 44 H 91 01/20/23 00:00 91 H 40 H 88 L 01/19/23 23:30 95 H 35 H 96 01/19/23 23:00 85 33 H 94 01/19/23 22:30 89 42 H 91 01/19/23 22:00 82 33 H 95 01/19/23 22:00 126/66 01/19/23 21:30 87 43 H 98 01/20/23 04:00 121/49 L 01/20/23 00:00 118/48 L 01/19/23 21:00 94 H 42 H 93 01/19/23 20:45 87 41 H 91 Laboratory Results Laboratory Tests 01/19/23 01/20/23 01/20/23 05:16 05:39 05:39 WBC 29.27 H Hgb 10.2 L Hct 29.6 L Plt Count 190 Sodium 130 L Potassium 3.9 Chloride 101 Carbon Dioxide 14 L BUN 88 H Creatinine 3.62 H D Glucose 216 H Calcium 7.8 L Phosphorus 4.3 Magnesium 2.0 Direct Bilirubin 0.3 H AST 85 H 647 H ALT 67 H 318 H Alkaline Phosphatase 104 Albumin 2.8 L PG Care Time/CCT Total # of Minutes Spent Total Time Spent with Patient: Total time spent is greater than 50% in coordination of care (as documented) at patient's floor/unit and/or counseling patient: Coding Level of Care Code 17910 SUB INP/OBS CARE 3/50MIN Diagnoses PAULA (acute kidney injury) N17.9 Chronic kidney disease, stage III (moderate) N18.3 Severe sepsis with septic shock A41.9; R65.21 UTI (urinary tract infection), bacterial N39.0; A49.9 Bacteremia due to Gram-positive bacteria R78.81 Ischemic cardiomyopathy I25.5 ICD (implantable cardioverter-defibrillator) in place Z95.810
[2023-01-20] MEDS ORDERED: LANTUS PER UNIT CHARGE SQ SCH (09:00)
--- NOTE | 2023-01-20 09:01 | Critical Care Progress Note ---
Date of Service January 20, 2023 Assessment & Plan (1) Severe sepsis with septic shock: (2) PAULA (acute kidney injury): (3) Bacteremia due to Gram-positive bacteria: (4) Acidosis: (5) UTI (urinary tract infection), bacterial: (6) Stage III pressure ulcer of buttock: Plan Impression: 72-year-old male with multiple medical comorbidities admitted with failure group A strep bacteremia, urinary infection, severe sepsis with septic shock, acute kidney injury, and metabolic acidosis with altered mental status. 24-hour events: Unfortunately the patient's clinical condition continues to deteriorate. He remains persistently hypotensive requiring pressors and his urine output remains poor. He is developing progressive anasarca. His mental status and work of breathing are increasing. Recommendations: 1. Neurologic: Patient denies significant pain. Given his progressive renal function, will hold Seroquel and Zoloft. 2. Cardiovascular: Heart failure with probable cardiorenal syndrome. He has become tachycardic with dobutamine as well as with norepinephrine. He remains dependent on Cesario-Synephrine. This does not appear to be reversible at this point in time. 3. Pulmonary: Patient is developing increasing work of breathing and shortness of breath. I suspect he is developing pulmonary congestion given the fact that his I's and O's are positive and he is having minimal urine output. No role for intubation. See comments below 4. GI: Continue current diet. PPI in place. 5. ID: Strep pyogenes bacteremia with Proteus in the urine. Day #4 antibiotics, currently on Rocephin. White blood cell count decreased today. Surveillance cultures have shown no growth. He does not have a skin rash or other evidence of toxic shock so we will hold off on clindamycin or IVIG currently. Given his AICD, intravascular seeding is possible and if the patient remains persistently bacteremic, this will present a significant problem. ID consultation may be required at that point time as the patient may require chronic suppressive antimicrobial therapy as I do not think he is a candidate for device removal. 6. Endocrine: Continue Synthroid. Glycemic control per protocol. Currently on stress dose steroids for relative adrenal insufficiency 7. Heme-onc: Thrombocytopenia which is chronic. Continue to follow at this point in time. Mild chronic anemia. No evidence of acute blood loss. 8. Renal: Acute renal failure: Suspect cardiorenal. Remains essentially anuric. Appreciate nephrology input and agree with their assessment that the patient is a poor candidate for renal replacement therapy. 9. DVT prophylaxis will be initiated with subcu heparin. Family is looking forward to palliative care discussions. I do not think the patient would be stable to transfer home for end-of-life care at home. He is dependent on pressors. I met with the patient today at bedside. I discussed that in spite of our aggressive interventions he appears to be deteriorating and developing multiorgan system dysfunction/failure. Aggressive interventions such as intubation, CPR, renal replacement therapy, mechanical ventilation, etc. would likely only prolong his dying process and I do not believe they are indicated currently. I would favor continuing current levels of care with plans for no escalation and if the patient should decline in spite of this, consider rapid transition to comfort/palliative care measures. The patient is agreeable to this. The family has been agreeable to this previously. The patient is critically ill at this point time with significant possibility of clinical deterioration. Total of 55 minutes critical care time was spent evaluation management stabilization of this patient exclusive of procedures. Admission and Anticipated Discharge Date Admission Date: January 17, 2023 Subjective Patient continues to clinically decline. His pressor requirements have been stable. His urine output continues to trail off and he has had increases in his BUN and creatinine. His family is looking forward to a palliative care discussion tomorrow. Patient is awake and does answer questions but does appear more somnolent today Review of Systems Review of Systems: Unobtainable due to reduced consciousness Physical Exam Constitutional: WD/WN, vitals as above Neck: trachea midline, no thyromegaly Respiratory: + labored breathing and + tachypneic Auscultation: + crackles and + rhonchi; no wheezes Cardiovascular: Rate/Rhythm: regular rate Heart Sounds: normal S1, normal S2 and + murmur Extremities: + edema Gastrointestinal (Abdomen): normal bowel sounds, soft, nontender, no hepatosplenomegaly Musculoskeletal: Extremities: extremities normal to inspection Lymphatic: no cervical lymphadenopathy Results & Data Results & Data Vital Signs (Past 12 Hours) Vital Signs Pulse Resp BP Pulse Ox 01/20/23 05:00 85 19 85 L 01/20/23 04:30 97 H 25 H 90 01/20/23 04:00 83 38 H 95 01/20/23 04:00 124/64 01/20/23 03:30 96 H 40 H 95 08/13/23 03:01 80 39 H 96 01/20/23 03:01 120/68 01/20/23 03:00 83 37 H 94 01/20/23 02:30 78 36 H 96 01/20/23 02:01 106/63 01/20/23 02:01 90 38 H 88 L 01/20/23 02:00 92 H 39 H 88 L 01/20/23 01:30 85 35 H 94 01/20/23 01:00 85 38 H 90 01/20/23 01:00 123/69 01/20/23 00:30 88 41 H 91 01/20/23 00:01 117/61 01/20/23 00:01 91 H 44 H 91 01/20/23 00:00 91 H 40 H 88 L 01/19/23 23:30 95 H 35 H 96 01/19/23 23:00 85 33 H 94 01/19/23 22:30 89 42 H 91 01/19/23 22:00 82 33 H 95 01/19/23 22:00 126/66 01/19/23 21:30 87 43 H 98 01/20/23 04:00 121/49 L 01/20/23 00:00 118/48 L 01/19/23 21:00 94 H 42 H 93 Critical Care Results & Data Vital Signs (Past 12 Hours) Vital Signs Pulse Resp BP Pulse Ox 01/20/23 05:00 85 19 85 L 01/20/23 04:30 97 H 25 H 90 01/20/23 04:00 83 38 H 95 01/20/23 04:00 124/64 01/20/23 03:30 96 H 40 H 95 01/20/23 03:01 80 39 H 96 01/20/23 03:01 120/68 01/20/23 03:00 83 37 H 94 01/20/23 02:30 78 36 H 96 01/20/23 02:01 106/01/20/23 02:01 90 38 H 88 L 01/20/23 02:00 92 H 39 H 88 L 01/20/23 01:30 85 35 H 94 01/20/23 01:00 85 38 H 90 01/20/23 01:00 123/69 01/20/23 00:30 88 41 H 91 01/20/23 00:01 117/61 01/20/23 00:01 91 H 44 H 91 01/20/23 00:00 91 H 40 H 88 L 01/19/23 23:30 95 H 35 H 96 01/19/23 23:00 85 33 H 94 01/19/23 22:30 89 42 H 91 01/19/23 22:00 82 33 H 95 01/19/23 22:00 126/66 01/19/23 21:30 87 43 H 98 01/20/23 04:00 121/49 L 01/20/23 00:00 118/48 L 01/19/23 21:00 94 H 42 H 93 Lab & Micro Results (Past 24 Hours) RBC 3.37 M/uL (4.70-6.10) L 01/20/23 WBC 29.27 K/ul (4.8-10.8) H 01/20/23 Hgb 10.2 g/dl (14.0-18.0) L 01/20/23 Hct 29.6 % (42.0-52.0) L 01/20/23 MCV 87.8 fL (80.0-100.0) 01/20/23 MCH 30.3 pg (25.0-34.0) 01/20/23 MCHC 34.5 g/dL (32.0-36.0) 01/20/23 RDW Standard Deviation 49.0 fL (36.4-46.3) H 01/20/23 RDW Coefficient of Variation 15.3 % (11.5-14.5) H 01/20/23 Plt Count 190 K/uL (130-400) 01/20/23 MPV 9.7 fL (9.4-12.4) 01/20/23 Nucleated Red Blood Cells % (auto) 0.1 % 01/20 Nucleated RBC Absolute Count (auto) 0.02 K/uL (0-0.12) 01/08 08/30 Neutrophils (%) (Auto) 90.5 % 01/20/23 Lymphocytes (%) (Auto) 2.1 % 01/20/23 Monocytes # (Auto) 1.00 K/uL (0.11-0.59) H 01/20/23 Eosinophils # (Auto) 0.00 K/uL (0-0.50) 01/20/23 Immature Granulocyte % (Auto) 3.9 % 01/20/23 Neutrophils # (Auto) 26.47 K/uL (1.40-6.50) H 01/20/23 Lymphocytes # (Auto) 0.61 K/uL (1.2-3.4) L 01/20/23 Monocytes # (Auto) 1.00 K/uL (0.11-0.59) H 01/20/23 Eosinophils # (Auto) 0.00 K/uL (0-0.50) 01/20/23 Basophils # (Auto) 0.04 K/uL (0-0.2) 01/20/23 Immature Granulocyte # (Auto) 1.15 K/uL (0.01-0.20) H 01/20 Polychromasia 1+ 01/20/23 Echinocytes 3+ 01/20/23 Acanthocytes 1+ 01/20/23 Na 130 mmol/L (136-145) L 01/20/23 K 3.9 mmol/L (3.5-5.1) 01/20/23 Cl 101 mmol/L (98-107) 01/20/23 CO2 14 mmol/L (21-32) L 01/20/23 Anion Gap 15 (3-11) H 01/20/23 BUN 88 mg/dl (6-23) H 01/20/23 Creatinine 3.62 mg/dl (0.6-1.4) H 01/20/23 Estimated GFR ( Amer) 18.6 ml/min 01/20/23 Estimated GFR (Non-Af Amer) 16.0 ml/min 01/20/23 BUN/Creatinine Ratio 24.3 (10-20) H 01/20/23 Glu 216 mg/dl (70-99(Fasting)) H 01/20/23 Ca 7.8 mg/dl (8.6-10.3) L 01/20/23 Phosphorus Level 4.3 mg/dl (2.5-4.9) 01/20/23 Total Bilirubin 0.7 mg/dl (0.2-1.0) 01/20/23 Direct Bilirubin 0.3 mg/dl (0-0.2) H 01/20/23 AST 647 U/L (13-39) H 01/20/23 ALT 318 U/L (7-52) H 01/20/23 Alkaline Phosphatase 104 U/L (34-104) 01/20/23 TP 5.8 gm/dl (6.0-8.3) L 01/20/23 Albumin 2.8 gm/dl (3.4-5.0) L 01/20/23 Mg 2.0 mg/dl (1.7-2.4) 01/20/23 05:39 Calcium Level 7.8 mg/dl (8.6-10.3) L 01/20/23 05:39 Arterial Blood pH 7.34 (7.35-7.45) L 01/20/23 05:39 Arterial Blood Partial Pressure CO2 25 mmHg (35-46) L 01/20/23 05:39 Arterial Blood Partial Pressure O2 65 mmHg (80-95) L 01/20/23 0 5:39 Arterial Blood HCO3 14 mmol/L (19-24) L 01/20/23 05:39 Arterial Blood Base Excess -10.5 mEq/L (-9-1.8) L 01/20/23 05:3 9 Arterial Blood Oxygen Saturation 92.7 % (90-95) 01/20/23 05:39 Blood Gas Oxygen Given RA 01/20/23 05:39 Ronaldo Test Pos (Pos) 01/20/23 05:39 Microbiology 01/17/23 13:13 Aerobic Blood Culture - Preliminary Blood No growth in Aerobic bottle after 48 hours. Anaerobic Blood Culture - Final 01/18/23 11:48 Aerobic Blood Culture - Preliminary Blood No growth in Aerobic bottle after 24 hours. Anaerobic Blood Culture - Preliminary No growth in Anaerobic bottle after 24 hours. 01/18/23 11:48 Aerobic Blood Culture - Preliminary Blood No growth in Aerobic bottle after 24 hours. Anaerobic Blood Culture - Preliminary No growth in Anaerobic bottle after 24 hours. 01/17/23 13:45 Urine Culture - Final Urine,Clean Catch Proteus mirabilis 01/17/23 12:00 Aerobic Blood Culture - Final Blood Group A Beta Strep Anaerobic Blood Culture - Final Group A Beta Strep I & O Totals 24 Hours 01/19/23 01/20/23 01/21/23 06:59 06:59 06:59 Intake Total 3174.314 / 3174.314 3410.472 / 3410.472 388.882 / 388.882 Output Total 155 / 155 125 / 125 Balance 3019.314 / 3019.314 3285.472 / 3285.472 388.882 / 388.882 Cumulative 01/17/23 11:04 thru 01/20/23 07:57 Intake Total 39119.001 Output Total 392 Balance 00251.001 RT Ventilator Mngmt (Last Documented) Ventilator Ordered Settings Respiratory Rate 19 01/20/23 05:00 Ventilator - PT Measurements Respiratory Rate 19 Coding Level of Care Code 24004 CRITICAL CARE 1ST 30-74M Diagnoses Severe sepsis with septic shock A41.9; R65.21 PAULA (acute kidney injury) N17.9 Bacteremia due to Gram-positive bacteria R78.81 Acidosis E87.20 UTI (urinary tract infection), bacterial N39.0; A49.9 Stage III pressure ulcer of buttock L89.303
[2023-01-20] MEDS: cefTRIAXone SODIUM 2,000 MG in DEXTROSE 5% 50 ML IV SCH (10:00)
[2023-01-20] MEDS: GABAPENTIN 100 MG CAP PO SCH ×2 (10:01→21:06)
[2023-01-20] MEDS: SERTRALINE HCL 50 MG TABLET PO SCH (10:01)
[2023-01-20] MEDS: FLUDROCORTISONE ACETATE 0.1 MG TAB PO SCH (10:02)
[2023-01-20] MEDS: DOBUTamine / D5W 500 MG/250 ML BAG IV SCH (10:02)
[2023-01-20] MEDS: ATORVASTATIN 40 MG TAB PO SCH (10:02)
[2023-01-20] MEDS: ASPIRIN 81 MG ECTAB PO SCH (10:02)
[2023-01-20] MEDS: PANTOprazole 40 MG TAB PO SCH ×2 (10:03→21:16)
--- NOTE | 2023-01-20 11:10 | Pharmacy Report ---
Pharmacy Glycemic Short Note 2 - Date of Service January 20, 2023 - Glycemic Short BSG Results (Last 24 hours): 01/19/23 01/19/23 01/19/23 11:23 11:45 16:25 Glucose 155 H POC Glucose 146 H 207 H POC Glucose (other) 01/19/23 01/20/23 01/20/23 21:34 00:42 04:47 Glucose POC Glucose POC Glucose (other) 307 H 270 H 200 H 01/20/23 01/20/23 01/20/23 05:39 07:44 07:56 Glucose 216 H POC Glucose 232 H POC Glucose (other) 180 H OUTPATIENT ANTIDIABETIC REGIMEN: * Glipizide ER 5 mg daily * Metformin 500 mg PO BID * Lantus 18 units SQ HS HbA1c = 6.5% on 01/18/23 ASSESSMENT: 01/20 * Patient received total of 37 units of insulin yesterday, of which 10 units were basal insulin * Fasting BSG 180 mg/dL - however did received an additional ~9 units overnight of correctional insulin. * BSGs trending upward last evening, likely related to stress steroids and bicarb/D5W infusion * Plan to increase basal insulin today - will give 10 units this AM, and continue with scale for HS based upon BSG 01/18 * 72 y/o M admitted for severe sepsis, acute kidney injury and bacteremia. He has a history of Type 2 diabetes managed on oral meds and basal insulin daily at home. * Patient received 18 units of basal insulin last night. Will continue the basal dose scale tonight as well since fasting BSG = 145 mg/dl this AM. * Novolog was started based on stress of 2. Pre-lunch BSG = 117 mg/dl. Novolog parameters continued the same. PLAN FOR INPATIENT GLYCEMIC CONTROL: * Hold outpatient oral diabetes medications * Basal insulin * Lantus 10 Qam * Lantus 5-10 units HS * Bolus insulin * NovoLog per scale ACHS or Q6hrs while NPO * Goal Range: Low 110 mg/dL - High 140 mg/dL * Correction Factor: 20 mg/dL/unit * Nutritional / Prandial insulin per carb ratio of 1 unit per 6 grams CHO consumed
--- NOTE | 2023-01-20 17:03 | Hospitalist Progress Note ---
Date of Service January 20, 2023 Assessment & Plan (1) Sepsis: Plan: Sepsis with altered mental status, suspect due to UTI Metabolic encephalopathy Presents with leukocytosis of 22, ESR 77, lactate 2.2, PAULA Lactate on admit 2.2 Patient has multiple potential sources of infection. He has a suprapubic catheter due to chronic outlet obstruction. Generally has difficulty with sanitization and care of this at home. Has had some erythema/discharge from this recently, UA is always infected appearing due to indwelling catheter. Patient has upper chest erythema, this is in a contact distribution which appears in the exposed area of the chest but spares the lower abdomen. There is no tenderness or warmth to this. He has left upper anterior chest does have yellow-colored crust/scale surrounding an annular area of erythema, notes that this has been worse in the last few days. He has multiple right lower extremity wounds. Has a posterior calf wound, distal lateral right lower leg wound, right lateral malleoli are wound, and heel superficial wound. Of these the proximal calf ulceration does have some purulent material and some surrounding scant erythema, other wounds are without erythema/discharge. CTlower extremity ordered for evaluation of osteo and deep infection given multiple wounds and septic appearance. w/ sepsis, chronic poor healing wounds, and difficulty with hygiene/concern for chronic wound contamination and above will cover broadly with cefepime, vancomycin, and Flagyl. History is limited, patient poorly oriented. Denies any infectious symptoms but has poor recall hs-troponin 2556 Procalcitonin 3.95 consistent with sepsis CRP 29 UA is infected appearing CThead: No acute findings CTA/P: Small bilateral pleural effusions, horseshoe kidney, no acute abnormalities or bowel obstruction CXR: Cardiomegaly and mild pulmonary edema On arrival was hypotensive to 94/59, normotensive following 2 L normal saline Empirically treated with Zosyn in ER Patient is with heart failure reduced ejection fraction, clinically with PAULA, minimal lower extremity edema, and hypotension appears intravascularly depleted. CXR is with pulmonary edema? Overload versus systolic failure. High- sensitivity troponin is elevated, attempting to obtain last echo for comparison. Last echo available was prebypass and 30-35% in 2019. Lactate has improved slightly with fluids, will continue antibiotics and fluid boluses as clinically indicated for hypotension. If rising lactate/persistent hypotension with evidence of fluid overload due to his concurrent heart failure may need pressor augmentation. At time of hospitalist consultation as lactate is improving he is normotensive can defer this. Stat echo is pending for interval EF change VBG 7.30/38/42/19, partially compensated respiratory acidosis On 01/18 Patient was hypotensive with SBP in the 70s despite receiving close to 5 liters of IVF and IV albumin. Discussed with clinical academic allergist, patient will be transferred to the ICU. Patient will require a central line and will need to be on pressors. will also consult cardiology On 01/19 Blood pressure is improved on pressors will continue to remain in ICU On 01/20 Patient remains on pressors, will remain in ICU. Prognosis appears poor. Heart failure with reduced ejection Last echo 2018, this was pre-bypass. EF 30-35% at that time EKG: Sinus with first-degree AV block, PVCs. Right bundle branch block. QTc 531. Compared to 07/2021 diffuse QRS morphology change Follows with cardiology for CHF. 09/2022 sedentary, but without symptoms of decompensated failure. Borderline low pressures at baseline and did not tolerate spironolactone. On DAPT plus Plavix post bypass, no history of stents. DELATORRE to LAD, FERNANDO to acute marginal, radial graft to OM was performed by [facility] in 2002 has a single-chamber ICD. Magnesium 1.1, IV and p.o. repletion ordered. Optimize potassium 4.0, magnesium 2.0 Patient with elevated troponin although no chest pain or preceding anginal symptoms to this admission. Suspect this is demand in the setting of sepsis. Given that patient is both hypotensive with elevated lactate but evidence of pulmonary edema with sepsis, updated echo was obtained. Patient did respond well to 2 L of fluids with improvement lactate and blood pressure, however is at risk for volume overload due to reduced EF. If patient were to show signs of progressive fluid overload and still have hypotension/uptrending perfusion markers would require ICU level of care and pressors at that time. This is not required at time of hospitalist reassessment, will admit to PCU Chronic bladder outlet obstruction Suprapubic catheter appears to be functioning normally. Patient has had issues with hygiene of this in the past UA is chronically infected appearing due to catheter Follow for culture Antibiotics as above No signs of obstructed catheter at time of assessment PAULA Baseline creatinine around 1.92.2, admitting creatinine 2.75 -With sepsis S/p 2 L saline in ER. Defer additional aggressive boluses due to pulmonary edema and history of heart failure BMP daily Degenerative disc disease, lumbar disc disease A CDI C3-4, C7 corpectomy, removal of C7 mass Past history of lumbar decompression and fusion complicated by subsequent abscesses and infection, stable following recurrent incision and drainage several years ago. - No back pain on admit Uncontrolled type II DM On outpatient glargine 18 units, With chronic right heel wounds and nephropathy, retinopathy Basal bolus based on home glargine entered Goal BSG 634388 Glucose AC/at bedtime or every 6 hours while NPO Pharmacy consulted for assistance in management while patient is septic With history of left BKA. Stump is with a 1 cm area of erythema and ulceration, no tenderness/warmth Hyperlipidemia: Continue statin, hold if daptomycin is started DVT prophylaxis: Heparin Diet: N.p.o. pending improvement in mentation, then DM2/heart healthy/low-sodium Disposition: PCU CODE STATUS: Full code, discussed and confirmed with patient and his (2) PAULA (acute kidney injury): (3) Elevated troponin I level: (4) Thrombocytopenia: (5) Stage II pressure ulcer of right hip: (6) Type 2 diabetes mellitus: (7) ICD (implantable cardioverter-defibrillator) in place: (8) CAD (coronary artery disease): (9) Chronic systolic heart failure: (10) PAD (peripheral artery disease): (11) Hypothyroidism: (12) Carotid artery stenosis: (13) History of cardiac cath: (14) HTN (hypertension): Admission and Anticipated Discharge Date Admission Date: January 17, 2023 Subjective Patient is lethargic. Review of Systems Review of Systems: All systems reviewed & are unremarkable except as noted in HPI & below Physical Exam Physical Exam: General: Patient is lethargic. HEENT: Atraumatic, normocephalic. PERLAA. [place] with yellow crust bilaterally. No injection/erythema. Pulm: Diminished, grossly clear. Reduced air movement in bases Symmetrical chest rise. No increased work of breathing. No respiratory distress. Cardiac: regular Abdominal: Softly distended. No guarding/rebound. BS present. Ext: Left BKA with 1 cm superficial ulcerated lesion, small surrounding amount of eschar. Right calf with 3 cm purulent annular lesion. Right lower extremity distal to calf with small 1 cm ulcer without erythema/discharge/purulence, right lateral malleoli are ulcer without purulence/discharge. Right heel with superficial ulcer no erythema/purulence Results & Data Results & Data Vital Signs (Past 12 Hours) Vital Signs Pulse Resp Pulse Ox O2 Del Method 01/20/23 16:00 88 01/20/23 16:00 97 H 01/20/23 16:00 97 H 01/20/23 14:00 97 H 36 H 94 01/20/23 13:00 97 H 36 H 93 01/20/23 12:00 106 H 33 H 95 01/20/23 11:00 97 H 34 H 91 01/20/23 10:00 85 34 H 93 01/20/23 09:00 101 H 36 H 93 01/20/23 08:00 93 H 13 95 01/20/23 07:00 88 35 H 95 Room Air 01/20/23 08:00 Room Air 01/20/23 12:00 98 H 01/20/23 08:00 98 H 01/20/23 08:00 98 H PG Care Time/CCT Total # of Minutes Spent Total Time Spent with Patient: Total time spent is greater than 50% in coordination of care (as documented) at patient's floor/unit and/or counseling patient: Coding Level of Care Code 87310 SUB INP/OBS CARE 2/35MIN Diagnoses Sepsis A41.9 PAULA (acute kidney injury) N17.9 Elevated troponin I level R77.8 Thrombocytopenia D69.6 Stage II pressure ulcer of right hip L89.212 Type 2 diabetes mellitus E11.52; Z79.4 Diabetes mellitus complication detail: with peripheral angiopathy with gangrene Diabetes mellitus complication status: with circulatory complication Diabetes mellitus assisted insulin use: with adjunct faculty for medical terminology use ICD (implantable cardioverter-defibrillator) in place Z95.810 CAD (coronary artery disease) I25.10 Associated angina: without angina Coronary Disease-Associated Artery/Lesion type: [place] artery [place] vs. transplanted heart: [place] heart Chronic systolic heart failure I50.22 PAD (peripheral artery disease) I73.9 Hypothyroidism E03.9 Hypothyroidism type: acquired Carotid artery stenosis I65.29 History of cardiac cath Z98.890 HTN (hypertension) I10 Hypertension type: essential hypertension (6) Type 2 diabetes mellitus Diabetes mellitus complication detail: with peripheral angiopathy with gangrene Diabetes mellitus complication status: with circulatory complication Diabetes mellitus adjunct faculty for medical terminology insulin use: with assisted use Qualified Code(s): E11.52 - Type 2 diabetes mellitus with diabetic peripheral angiopathy with gangrene; Z79.4 - intermediate frame tender (current) use of insulin (8) CAD (coronary artery disease) Associated angina: without angina Coronary Disease-Associated Artery/Lesion type: [place] artery [place] vs. transplanted heart: [place] heart Qualified Code(s): I25.10 - Atherosclerotic heart disease of [place] coronary artery without angina pectoris (11) Hypothyroidism Hypothyroidism type: acquired Qualified Code(s): E03.9 - Hypothyroidism, unspecified (14) HTN (hypertension) Hypertension type: essential hypertension Qualified Code(s): I10 - Essential (primary) hypertension
[2023-01-20] MEDS: LANTUS PER UNIT CHARGE SQ SCH (21:14)
[2023-01-20] MEDS: QUEtiapine FUMARATE 25 MG TABLET PO SCH (21:17)
[2023-01-20 21:25] LABS: A calco-baum cmplx NotReported Not Detected (NotDetected); Bact fragilis Not Reported Not Detected (NotDetected); C auris Not Reported Not Detected (NotDetected); Calbicans Not Reported Not Detected (NotDetected); Candida glabrata Not Reported Not Detected (NotDetected); Candida krusei Not Reported Not Detected (NotDetected); Cneoformans/gatti Not Reported Not Detected (NotDetected); Cparapsilosis Not Reported Not Detected (NotDetected); Ctropicalis Not Reported Not Detected (NotDetected); E cloacae compx Not Reported Not Detected (NotDetected); Efaecalis Not Reported Not Detected (NotDetected); Efaecium Not Reported Not Detected (NotDetected); Enterobacterales Not Reported Not Detected (NotDetected); Escherichia coli Not Reported Not Detected (NotDetected); H influenzae Not Reported Not Detected (NotDetected); K aerogenes Not Reported Not Detected (NotDetected); Koxytoca Not Reported Not Detected (NotDetected); Kpneumoniae grp Not Reported Not Detected (NotDetected); Lmonocyt Not Reported Not Detected (NotDetected); N meningitidis Not Reported Not Detected (NotDetected); P aeruginosa Not Reported Not Detected (NotDetected); Proteus spp Not Reported Not Detected (NotDetected); Salmonella spp Not Reported Not Detected (NotDetected); Smarcescens Not Reported Not Detected (NotDetected); Staph lugdunensis Not Reported Not Detected (NotDetected); Staph spp. Not Reported Not Detected (NotDetected); Staphaureus Not Reported Not Detected (NotDetected); Staphepi Not Reported Not Detected (NotDetected); Stenmaltophilia Not Reported Not Detected (NotDetected); Strep agal(GrpB) Not Reported Not Detected (NotDetected); Strep pneum Not Reported Not Detected (NotDetected); Strep pyog (GrpA) Not Reported Not Detected (NotDetected); Strep spp Not Reported Not Detected (NotDetected)
[2023-01-20] MEDS ORDERED: ONDANSETRON INJ 2 MG/ML 2 ML VIAL IV PRN (23:49)
[2023-01-20] MEDS ORDERED: STAT IV Infusion **Titration per Protocol STA (23:49)
[2023-01-20] MEDS ORDERED: LORazepam 2 MG/1 ML VIAL IV PRN (23:49)
[2023-01-20] MEDS ORDERED: GLYCOPYRROLATE 0.2 MG/ML VIAL IV PRN (23:49)
[2023-01-20] MEDS ORDERED: ONDANSETRON 4 MG OD TAB SL PRN (23:49)
[2023-01-20] MEDS ORDERED: MoRPHine SULF/NSS 1MG/ML 100MG/100ML IV ONE (23:56)
--- NOTE | 2023-01-21 | Communication Note ---
Date of Service: January 20, 2023 Unfortunately the patient, Mr. Cooper, has continued to deteriorate from a clinical status. He remains on vasopressor support, and renal function continu es to decline. He is making little to no urine at this point, and was determined to be poor candidate for dialysis. As of now he is approximately 14 L positive on this admission, with worsening anasarca. He is now becoming short of breath with turning and more tachypneic. Given his multiple comorbidities and deteriorating clinical status I did speak with the family, patient's son and , regarding goals of care. He has previously been made DNR in the event of cardiac arrest with no escalation of care. At this time, family has elected to discontinue life-sustaining measures of care in favor of comfort measures. We will discontinue vasopressor support, antibiotic therapy, etc. and proceed with comfort measures only with morphine drip to ensure the patient remains is comfortable as possible as he passes. This process was explained in detail to the family and they are on board. CRITICAL CARE TIME - I have personally spent 30 additional minutes of critical care time in the dire t management of this patient. This is a life/limb threatening event. This includes time spent evaluating patient, direct bedside care, chart review, placing orders, interpretation of diagnostic studies, discussion with consultants, patient, and family members, as well as other required patient management activities. This time is exclusive of all separately billable procedures, and teaching time and separate from and in addition to any other critical care service time. Coding Level of Care Code 43104 CRITICAL CARE EA ADD 30M
[2023-01-21] MEDS: PHENYLEPHRINE HCL 100 MG in SODIUM CHLORIDE 0.9% 240 ML IV SCH ×3 (00:10→10:44)
[2023-01-21] MEDS: MoRPHine SULF/NSS 100 MG/100 ML BAG IV SCH ×2 (00:11→00:52)
[2023-01-21] MEDS: MoRPHine BOLUS from BAG IV PRN ×3 (00:53→06:01)
[2023-01-21] MEDS: ERYTHROMYCIN OP OINT 5 MG/GM 3.5 GM TUBE OP SCH ×3 (01:05→12:46)
[2023-01-21] MEDS: HYDROCORTISONE SOD 50 MG in SYRINGE 0 ML IV SCH ×2 (04:30→10:12)
[2023-01-21] MEDS: AMIODARONE / D5W 360 MG/200 ML BAG IV SCH (04:30)
[2023-01-21] MEDS: LEVOTHYROXINE SODIUM 75 MCG TABLET PO SCH (05:30)
[2023-01-21] MEDS: SODIUM BICARBONATE 8.4% 150 MEQ in DEXTROSE 5% 1,000 ML IV SCH (05:31)
[2023-01-21] MEDS: ASPIRIN 81 MG ECTAB PO SCH (08:11)
[2023-01-21] MEDS: INSULIN ASPART PER UNIT CHARGE SC SCH (08:11)
[2023-01-21] MEDS: GABAPENTIN 100 MG CAP PO SCH (08:12)
[2023-01-21] MEDS: FLUDROCORTISONE ACETATE 0.1 MG TAB PO SCH (08:12)
[2023-01-21] MEDS: PANTOprazole 40 MG TAB PO SCH (08:12)
[2023-01-21] MEDS: SERTRALINE HCL 50 MG TABLET PO SCH (08:12)
[2023-01-21] MEDS: cefTRIAXone SODIUM 2,000 MG in DEXTROSE 5% 50 ML IV SCH (10:12)
[2023-01-21] MEDS: DOBUTamine / D5W 500 MG/250 ML BAG IV SCH (10:45)
--- NOTE | 2023-01-21 11:13 | Palliative Care Consultation ---
Date of Consultation January 21, 2023 History of Present Illness Reason for Consultation: pt and requesting pall med consult Attending Physician: Juan Manning History of Present Illness Consult order noted and appreciated. Chart reviewed in detail ++Acute decline overnight with CCM med discussions, family elected SUPERVISOR MOTOR VEHICLE ASSEMBLY and CCM wrote orders. Patient reportedly comfortable and without distress, he is actively dying. I will defer this consult given that all acute needs are being managed. To optimize comfort at the end of life, I have modified orders to optimize comfort care symptom mgt needs such as d/c telemetry and non comfort meds. No charge submitted TS 45min Thank you for allowing us to participate in the ongoing care of this patient. Please don't hesitate to call or page with any additional concerns. Dr. Madalyn Rodriguez DNP Director, Palliative Care Allergies Allergy/AdvReac Type Severity Reaction Status Date / Time sacubitril [From Entresto] AdvReac Intermediate problems Verified 01/08/23 10:32 with bp valsartan [From Entresto] AdvReac Intermediate problems Verified 01/08/23 10:32 with bp lorazepam AdvReac Mild Confusion Verified 01/08/23 10:32 Home Medications Medication Instructions Recorded Confirmed Type ascorbic acid (vitamin C) 500 mg 500 mg PO QAM 03/23/19 01/17/23 History tablet (Vitamin C) melatonin 5 mg tablet 5 mg PO HS 03/23/19 01/17/23 History ferrous sulfate 325 mg (65 mg 325 mg PO QAM 04/27/19 01/17/23 History iron) tablet,delayed release acetaminophen 500 mg tablet 1,000 mg PO TID PRN Pain 10/07/19 01/17/23 History (Tylenol Extra Strength) aspirin 81 mg tablet,delayed 81 mg PO QAM 04/12/20 01/17/23 History release (Aspir-) cholecalciferol (vitamin D3) 25 25 mcg PO QAM 07/18/21 01/17/23 History mcg (1,000 unit) tablet (Vitamin D3) gabapentin 100 mg capsule 200 mg PO BID #120 caps 01/17/22 01/17/23 Rx quetiapine 25 mg tablet (Seroquel) 25 mg PO HS #90 tabs 01/17/22 01/17/23 Rx metoprolol succinate 25 mg 25 mg PO QAM #90 tabs 01/23/22 01/17/23 Rx tablet,extended release 24 hr tamsulosin 0.4 mg capsule (Flomax) 0.4 mg PO HS #90 caps 02/27/22 01/17/23 Rx Mattress (Air or other) #1 ea 04/27/22 01/17/23 Rx atorvastatin 40 mg tablet 40 mg PO QAM #90 tabs 05/18/22 01/17/23 Rx Mattress (Air or other) #1 ea 07/04/22 01/17/23 Rx pantoprazole 40 mg tablet,delayed 40 mg PO BID #180 tabs 07/10/22 01/17/23 Rx release (Protonix) sacubitril 24 mg-valsartan 26 mg 1 tab PO BID #180 tabs 08/18/22 01/17/23 Rx tablet (Entresto) glipizide 5 mg tablet, extended 5 mg PO DAILY #30 tabs 09/13/22 01/17/23 Rx release 24 hr levothyroxine 75 mcg tablet 75 mcg PO DAILY #30 tabs 09/13/22 01/17/23 Rx pen needle, diabetic 31 gauge x #50 ea 10/22/22 01/17/23 Rx 5/16" (BD Ultra-Fine Short Pen Needle) insulin glargine 100 unit/mL (3 18 unit (0.18 mL) subcut QPM #15 mL 12/28/22 01/17/23 Rx mL) subcutaneous pen (Lantus Solostar U-100 Insulin) bumetanide 1 mg tablet 1 mg PO QAM #90 tabs 12/31/22 01/17/23 Rx finasteride 5 mg tablet (Proscar) 5 mg PO QAM #90 tabs 12/31/22 01/17/23 Rx metformin 500 mg tablet,extended 500 mg PO BID #180 tabs 12/31/22 01/17/23 Rx release 24hr nystatin 100,000 unit/gram topical 1 applic topical BID PRN .flare ups 01/17/23 01/17/23 History powder sertraline 50 mg tablet 75 mg PO DAILY 01/17/23 01/17/23 History Patient History Medical History Abscess in epidural space of lumbar spine RESOLVED PER PATIENT WITH SURGERIES BUT RESULTED IN NEUROGENIC BLADDER. 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 Admitted [facility] 10/18/11 for onset of incapacitating cervical myelopathy. Spinal tap showed FILING AND POLISHING SUPERVISOR Lyme disease, MRI showed severe spinal cord compression at C3-4 with myelomalacia and intramedullary mass. Pt had c-spine surgery, subsequent prolonged hospital admission, complicated post-op course- including cardiac arrest Depression Diabetic peripheral neuropathy Disc degeneration, lumbar Diverticulosis Dyslipidemia Dysphagia resolved per pt History of COVID-19 diagnosed 05/28/20 via HOME TEST ONLY--severe diarrhea/cough/fever/loss of smell--no issues now History of non-ST elevation myocardial infarction (NSTEMI) 2000; 2018 HTN (hypertension) Hypothyroidism ICD (implantable cardioverter-defibrillator) in place Medtronic--ICD replacement done 09/01/20 @ [facility] by Dr. 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 Hollins- had post op respiratory failure requiring trach and subsequent cardiac arres requiring one shock V fib- AICD implanted Type 2 diabetes mellitus per noncompliant with insulin UTI (urinary tract infection), bacterial Wheelchair confinement per does not get out of bed without tien lift--needs wheelchair Surgical History H/O cervical spine surgery ACDI C3-4, C7 corpectomy, removal of C7 intramedullary mass.> ROM IS OK PER PATIENT H/O sinus surgery History of cardiac cath 07/2018 [facility]. Severe multivessel [place] coronary artery disease 99% subtotal occlusion in proximal ramus with distal NEMESIO I flow (thought to be acute culprit vessel) -100% chronic mid LAD occlusion Diffuse mid circumflex, 80% proximal OM 2 Sequential mid RCA 95, 90% stenosis 2. Widely patent DELATORRE to LAD. Patent FERNANDO to very small diffusely diseased acute marginal. Occluded radial graft to OM. Medical MGMT recommended. History of cataract extraction with lens replacement History of colonoscopy History of esophagogastroduodenoscopy (EGD) History of incision and drainage Lumbar spine on 08/11/18; complicated by difficult intubation with only #6.5 ETT able to be placed and patient kept intubated post op Lumbar spine again 09/10/2018, ETT#7.0 with difficulty. Lumbar spine 10/09/2018, ETT#7.0, poor view bougie used. Anesthesia postop note: "still requiring phenyelphrine drip to maintain BP. Maintaining O2 sats with oxymask. Case discussed with ICU hand paster, Dr. Mazariegos. Dr. Mazariegos updated with patients PMH including his cardiac comorbidities and his intraop course, including the blood transfusion. Dr. Mazariegos accepting patient for ICU management post op." Left heel 02/06/2019: LMA#5. History of lumbar spinal fusion 07/25/2018: glidescope #3, ETT#8.0. CHF and LA post-op. History of lumbar surgery 09/10/18 Glidescope 3 okay visualization but difficulty passing ETT, unable to pass 8.0, able to pass 7.0 with some difficulty History of tracheostomy CLOSED 8 YRS AGO Hx of CABG 06/2001 [facility] [facility] delatorre to lad, fernando to rca marginals and left radical artery to left circ Hx of foot surgery [facility] MAY 2019 Hx of tonsillectomy Hx of transurethral resection of prostate S/P PICC central line placement hx of S/P triple vessel bypass [facility], 2002- (DELATORRE to LAD, FERNANDO to Acute Marginal, Radial Graft to OM) Status post below-knee amputation of left lower extremity in setting of osteomyelitis and sepsis 08/14/19: LMA#4 + PNB. I&D 10/09/2019: LMA#4. No issues per anesthesia postop progress note. Family History Mother , age 68 of COPD and respiratory issues COPD (chronic obstructive pulmonary disease) Father , in his 40s of an LA Myocardial infarction Family/Other Coronary heart disease Sister Other specified health status Other Diabetes Hypertension No pertinent family history Denies family history of Prostate cancer Breast cancer Colorectal cancer Social History Smoking Status: Never smoker Second Hand Exposure: No; Do You Dip or Chew Tobacco: No; Hx Alcohol Use: No Hx Substance Use: No Preferred Language: Dominican Communication Ability: Impaired Communication Ability Comment: confusion Visual Impairment: No Limitations Hearing Ability: Normal Food Assembler Required: No Beliefs That Will Affect Care: None marital status: Current Living Situation: Spouse Current Living Situation Comment: home with spouse 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al status: retired and disabled 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: 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
[2023-01-21] MEDS ORDERED: GLYCOPYRROLATE 0.2 MG/ML VIAL IV PRN (11:25)
[2023-01-21] MEDS ORDERED: MoRPHine BOLUS from BAG IV PRN (11:25)
--- NOTE | 2023-01-21 16:14 | Discharge Summary ---
Date of Service January 21, 2023 Admission HPI Per Admitting Provider Leandro Cooper is a 72-year-old male with a past medical history of uncontrolled type 2 diabetes mellitus, ischemic cardiomyopathy with triple-vessel bypass reduced ejection fraction and ICD, peripheral artery disease, ANTONIO, BPH, CKD 3, diabetic ulcers, BKA of the left lower extremity History is limited, patient is a poor historian. Is not oriented to year, place, or month. He is oriented to name. He denies chest pain, chest pressure, abdominal pain, extremity pain, fever, chills at bedside. Collateral is collected from patient's . She reports that he is generally bedbound 90% of the time at home, has difficulty with care and hygiene and notes he frequently spills material on his suprapubic catheter and his lower extremity wounds. Sees wound care about every 3 weeks but has chronic right lower ext remity wounds. He has had a rash on his chest, in the last 2 to 3 days. Has also had crust which started in the left eye and now spread to the right eye. He has had a small area of yellow skin irritation on his left upper shoulder. In addition to this his suprapubic catheter output has been darker and more foul-smelling with concern for material and slight erythema around skin site. He has not complained of any shortness of breath or chest pain in the preceding weeks/months, patient is very limited in activity at baseline. He gets care from [facility], PCP is Dr. Alvarez. Sees Dr. Polk with urology, superacute catheter was placed for chronic outlet obstruction. He does have a history of lumbar decompression fusion surgery which is complicated by infections requiring I&D now stable and patient has not been with recent exacerbation of his back pain. Patient recently sent mobile telemetry to cardiology company for follow-up, but has not heard back from this and does not know the results of this. Notes that this is followed due to his history of heart failure and he has an ICD in place. Patient is normally oriented to place and name. He is sometimes not oriented to date, his notes that she does work with dementia patient is a does not think he has dementia more just depression and bedbound disorientation from not paying attention to these measures very often. Sees Dr. Prado for cardiology as outpatient. Former tobacco use, no recent alcohol use. He did not take morning medications since this morning Medical History: Reviewed Medications: Reviewed Surgical History: Reviewed Family history: Reviewed Allergies: Reviewed Social History: Has no Code Status: Full code Principal Diagnosis sepsis Discharge Exam refer to note Discharge Data Allergies Allergy/AdvReac Type Severity Reaction Status Date / Time sacubitril [From Entresto] AdvReac Intermediate problems Verified 01/08/23 10:32 with bp valsartan [From Entresto] AdvReac Intermediate problems Verified 01/08/23 10:32 with bp lorazepam AdvReac Mild Confusion Verified 01/08/23 10:32 Consultations 01/17/23 14:12 ED Decision to Admit Stat 01/17/23 16:13 Consult Cardiology Routine 01/18/23 08:01 Consult Distribution Estimator Routine 01/18/23 14:32 Consult Palliative Care Routine 01/19/23 07:51 Consult Nephrology Routine Ordered Studies 01/17/23 11:41 CT abd pelvis wo con Stat CT head/brain wo con Stat 01/17/23 15:53 CT leg [CT tib/fib RT wo con] Stat Hospital Course (1) Sepsis: Sepsis with altered mental status, suspect due to UTI Metabolic encephalopathy Presents with leukocytosis of 22, ESR 77, lactate 2.2, PAULA Lactate on admit 2.2 Patient has multiple potential sources of infection. He has a suprapubic catheter due to chronic outlet obstruction. Generally has difficulty with sanitization and care of this at home. Has had some erythema/discharge from this recently, UA is always infected appearing due to indwelling catheter. Patient has upper chest erythema, this is in a contact distribution which appears in the exposed area of the chest but spares the lower abdomen. There is no tenderness or warmth to this. He has left upper anterior chest does have yellow-colored crust/scale surrounding an annular area of erythema, notes that this has been worse in the last few days. He has multiple right lower extremity wounds. Has a posterior calf wound, distal lateral right lower leg wound, right lateral malleoli are wound, and heel superficial wound. Of these the proximal calf ulceration does have some purulent material and some surrounding scant erythema, other wounds are without erythema/discharge. CTlower extremity ordered for evaluation of osteo and deep infection given multiple wounds and septic appearance. w/ sepsis, chronic poor healing wounds, and difficulty with hygiene/concern for chronic wound contamination and above will cover broadly with cefepime, vancomycin, and Flagyl. History is limited, patient poorly oriented. Denies any infectious symptoms but has poor recall hs-troponin 2556 Procalcitonin 3.95 consistent with sepsis CRP 29 UA is infected appearing CThead: No acute findings CTA/P: Small bilateral pleural effusions, horseshoe kidney, no acute abnormalities or bowel obstruction CXR: Cardiomegaly and mild pulmonary edema On arrival was hypotensive to 94/59, normotensive following 2 L normal saline Empirically treated with Zosyn in ER Patient is with heart failure reduced ejection fraction, clinically with PAULA, minimal lower extremity edema, and hypotension appears intravascularly depleted. CXR is with pulmonary edema? Overload versus systolic failure. High- sensitivity troponin is elevated, attempting to obtain last echo for comparison. Last echo available was prebypass and 30-35% in 2019. Lactate has improved slightly with fluids, will continue antibiotics and fluid boluses as clinically indicated for hypotension. If rising lactate/persistent hypotension with evidence of fluid overload due to his concurrent heart failure may need pressor augmentation. At time of hospitalist consultation as lactate is improving he is normotensive can defer this. Stat echo is pending for interval EF change VBG 7.30/38/42/19, partially compensated respiratory acidosis On 01/18 Patient was hypotensive with SBP in the 70s despite receiving close to 5 liters of IVF and IV albumin. Discussed with cost engineer, patient will be transferred to the ICU. Patient will require a central line and will need to be on pressors. will also consult cardiology On 01/19 Blood pressure is improved on pressors will continue to remain in ICU On 01/20 Patient remains on pressors, will remain in ICU. Prognosis appears poor. On 01/21 Patient was transitioned to comfort measures. He at 16:25 Heart failure with reduced ejection Last echo 2018, this was pre-bypass. EF 30-35% at that time EKG: Sinus with first-degree AV block, PVCs. Right bundle branch block. QTc 531. Compared to 07/2021 diffuse QRS morphology change Follows with cardiology for CHF. 09/2022 sedentary, but without symptoms of decompensated failure. Borderline low pressures at baseline and did not tolerate spironolactone. On DAPT plus Plavix post bypass, no history of stents. DELATORRE to LAD, FERNANDO to acute marginal, radial graft to OM was performed by [facility] in 2002 has a single-chamber ICD. Magnesium 1.1, IV and p.o. repletion ordered. Optimize potassium 4.0, magnesium 2.0 Patient with elevated troponin although no chest pain or preceding anginal symptoms to this admission. Suspect this is demand in the setting of sepsis. Given that patient is both hypotensive with elevated lactate but evidence of pulmonary edema with sepsis, updated echo was obtained. Patient did respond well to 2 L of fluids with improvement lactate and blood pressure, however is at risk for volume overload due to reduced EF. If patient were to show signs of progressive fluid overload and still have hypotension/uptrending perfusion markers would require ICU level of care and pressors at that time. This is not required at time of hospitalist reassessment, will admit to PCU Chronic bladder outlet obstruction Suprapubic catheter appears to be functioning normally. Patient has had issues with hygiene of this in the past UA is chronically infected appearing due to catheter Follow for culture Antibiotics as above No signs of obstructed catheter at time of assessment PAULA Baseline creatinine around 1.92.2, admitting creatinine 2.75 -With sepsis S/p 2 L saline in ER. Defer additional aggressive boluses due to pulmonary edema and history of heart failure BMP daily Degenerative disc disease, lumbar disc disease A CDI C3-4, C7 corpectomy, removal of C7 mass Past history of lumbar decompression and fusion complicated by subsequent abscesses and infection, stable following recurrent incision and drainage several years ago. - No back pain on admit Uncontrolled type II DM On outpatient glargine 18 units, With chronic right heel wounds and nephropathy, retinopathy Basal bolus based on home glargine entered Goal BSG 481969 Glucose AC/at bedtime or every 6 hours while NPO Pharmacy consulted for assistance in management while patient is septic With history of left BKA. Stump is with a 1 cm area of erythema and ulceration, no tenderness/warmth Hyperlipidemia: Continue statin, hold if daptomycin is started DVT prophylaxis: Heparin Diet: N.p.o. pending improvement in mentation, then DM2/heart healthy/low-sodium Disposition: PCU CODE STATUS: Full code, discussed and confirmed with patient and his (2) PAULA (acute kidney injury): (3) Elevated troponin I level: (4) Thrombocytopenia: (5) Stage II pressure ulcer of right hip: (6) Type 2 diabetes mellitus: (7) ICD (implantable cardioverter-defibrillator) in place: (8) CAD (coronary artery disease): (9) Chronic systolic heart failure: (10) PAD (peripheral artery disease): (11) Hypothyroidism: (12) Carotid artery stenosis: (13) History of cardiac cath: (14) HTN (hypertension): Total Time Total Time Spent Total Time Spent (In Minutes): 31 Discharge Plan Discharge Items Patient Disposition: Other Date/Time: 01/21/23 15:50 Coding Level of Care Code 80529 INP/OBS DISCH >30 MIN Diagnoses Sepsis A41.9 PAULA (acute kidney injury) N17.9 Elevated troponin I level R77.8 Thrombocytopenia D69.6 Stage II pressure ulcer of right hip L89.212 Type 2 diabetes mellitus E11.52; Z79.4 Diabetes mellitus complication detail: with peripheral angiopathy with gangrene Diabetes mellitus complication status: with circulatory complication 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 transplanted heart: tetlin heart Chronic systolic heart failure I50.22 PAD (peripheral artery disease) I73.9 Hypothyroidism E03.9 Hypothyroidism type: acquired Carotid artery stenosis I65.29 History of cardiac cath Z98.890 HTN (hypertension) I10 Hypertension type: essential hypertension Time Spent (min) 31
--- NOTE | 2023-01-21 16:14 | Death Pronouncement Note ---
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 transplanted heart: [place] heart Qualified Code(s): I25.10 - Atherosclerotic heart disease of [place] coronary artery without angina pectoris (9) Chronic systolic heart failure: (10) PAD (peripheral artery disease): (11) Hypothyroidism: Hypothyroidism type: acquired Qualified Code(s): E03.9 - Hypothyroidism, unspecified (12) Carotid artery stenosis: (13) History of cardiac cath: (14) HTN (hypertension): Hypertension type: essential hypertension Qualified Code(s): I10 - Essential (primary) hypertension Summary Please refer to discharge summary Additional Data Confirmation of : no pulse, no respirations, no heart sounds and pupils fixed and dilated Pronouncement Performed By: Attending Physician Family: at bedside Attending/PCP notified?: Yes Attending physician: Juan Manning Was code activated?: No Autopsy requested?: No Coding Level of Care Code None Diagnoses Sepsis A41.9 PAULA (acute kidney injury) N17.9 Elevated troponin I level R77.8 Thrombocytopenia D69.6 Stage II pressure ulcer of right hip L89.212 Type 2 diabetes mellitus E11.52; Z79.4 Diabetes mellitus complication detail: with peripheral angiopathy with gangrene Diabetes mellitus complication status: with circulatory complication 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 transplanted heart: [place] heart Chronic systolic heart failure I50.22 PAD (peripheral artery disease) I73.9 Hypothyroidism E03.9 Hypothyroidism type: acquired Carotid artery stenosis I65.29 History of cardiac cath Z98.890 HTN (hypertension) I10 Hypertension type: essential hypertension
== END 2023-01-21 19:12 | disposition expired | DRG 871 ==
LOC: ED 11:24 → 2S 16:14 → SUATTDRO 16:14 → 2S 18:34 → 1E 01-18 09:28 → 3E 01-21 13:21